=== PATIENT | female | born 1985 | race Caucasian/White ===

== ENCOUNTER → 2019-02-25 10:03 | Outpatient (CLI) | payer BC, SELFPAY ==
[2019-02-25 09:42] VITALS: BMI 24.9
[2019-02-25 12:31] LABS: Absolute Lymphocyte Count 0.56 X10^3/uL (0.83-4.51); Absolute Neutrophil Count 1.3 X10^3/uL (2.0-7.7); Basophil# 0.01 X10^3/uL; Basophil% 0.5 % (0-1); Eosinophil# 0.04 X10^3/uL; Eosinophils% 1.8 % (0-5); Hematocrit 42.9 % (37-47); Hemoglobin 14.2 g/dL (12.0-15.0); Lymphocyte # 0.56 X10^3/ul (4.0); Lymphocyte % 25.5 % (19-41); Mean Corp Hgb Conc 33.1 g/dL (32-36); Mean Corpuscular Hgb 35.5 pg (27.0-32.0); Mean Corpuscular Volume 107.3 fL (81-99); Mean Platelet Vol. 10.3 fl (6.2-12.0); Monocyte# 0.29 X10^3/uL; Monocyte% 13.2 % (0-10); NRBC Flagged by Analyzer 0 % (0-5); Neutrophil # 1.29 X10^3/uL (2.7-7.7); Neutrophil % 58.5 % (47-70); POSITIVE DIFFERENTIAL YES; Platelet Count 199 K/mm3 (150-450); RBC Distribution Width CV 13.3 % (11.6-14.6); RBC Distribution Width SD 53.3 fl (35.1-43.9); White Blood Count 2.2 K/mm3 (4.4-11.0)
[2019-02-25 12:33] LABS: Differential Indicated SCAN CRITERIA MET
[2019-02-25 13:03] LABS: ALB/GLOB Ratio 1.2 RATIO (0.9-2.4); AST(SGOT) 27 U/L (15-37); Alanine Aminotransfer ALT/SGPT 62 U/L (13-56); Albumin, Serum 4.3 g/dL (3.2-5.0); Alkaline Phosphatase 59 U/L (45-117); Anion Gap 5 (5-15); BUN 16 mg/dL (7-18); BUN/Creat Ratio 19.5 RATIO (10-20); Calcium,Total 10.1 mg/dL (8.5-10.1); Chloride 105 mmol/L (98-107); Creatinine, Serum 0.82 mg/dL (0.55-1.02); EST Glomerular Filtration Rate 85 mL/min (>60); Est Glom Filt Rate - Afr Amer 102 mL/min (>60); Globulin 3.7 g/dL (2.2-4.2); Glucose 94 mg/dL (74-106); Sodium Level 139 mmol/L (136-145)
[2019-02-28 13:56] LABS: Pathologist Review Reviewed
== END ==
PROVIDERS: Visit Provider Internal Medicine
DX: D72.819 Decreased white blood cell count, unspecified (principal); F32.9 Major depressive disorder, single episode, unspecified; F41.9 Anxiety disorder, unspecified
CPT/HCPCS: 36415; 80053; 85025

== ENCOUNTER → 2019-12-02 | Outpatient (CLI) | payer BC, SELFPAY ==
[2019-12-02 11:15] VITALS: BMI 27.6
[2019-12-02 15:36] LABS: Absolute Lymphocyte Count 0.52 X10^3/uL (0.83-4.51); Absolute Neutrophil Count 1.6 X10^3/uL (2.0-7.7); Basophil# 0.02 X10^3/uL; Basophil% 0.8 % (0-1); Eosinophil# 0.05 X10^3/uL; Eosinophils% 1.9 % (0-5); Hematocrit 35.3 % (37-47); Hemoglobin 11.7 g/dL (12.0-15.0); Lymphocyte # 0.52 X10^3/ul (4.0); Lymphocyte % 19.5 % (19-41); Mean Corp Hgb Conc 33.1 g/dL (32-36); Mean Corpuscular Volume 105.7 fL (81-99); Mean Platelet Vol. 10.8 fl (6.2-12.0); Monocyte# 0.45 X10^3/uL; Monocyte% 16.9 % (0-10); NRBC Flagged by Analyzer 0 % (0-5); Neutrophil # 1.62 X10^3/uL (2.7-7.7); Neutrophil % 60.9 % (47-70); POSITIVE DIFFERENTIAL YES; Platelet Count 166 K/mm3 (150-450); RBC Distribution Width CV 13.7 % (11.6-14.6); RBC Distribution Width SD 53.2 fl (35.1-43.9); Red Blood Count 3.34 M/mm3 (4.2-5.4); White Blood Count 2.7 K/mm3 (4.4-11.0)
[2019-12-02 15:52] LABS: ALB/GLOB Ratio 1.1 RATIO (0.9-2.4); AST(SGOT) 38 U/L (15-37); Alanine Aminotransfer ALT/SGPT 71 U/L (13-56); Albumin, Serum 3.5 g/dL (3.2-5.0); Alkaline Phosphatase 67 U/L (45-117); Anion Gap 7 (5-15); BUN 15 mg/dL (7-18); Calcium,Total 8.8 mg/dL (8.5-10.1); Chloride 109 mmol/L (98-107); Creatinine, Serum 0.83 mg/dL (0.55-1.02); EST Glomerular Filtration Rate 83 mL/min (>60); Est Glom Filt Rate - Afr Amer 100 mL/min (>60); Globulin 3.3 g/dL (2.2-4.2); Glucose 121 mg/dL (74-106); Protein, Total 6.8 g/dL (6.4-8.2); Sodium Level 141 mmol/L (136-145)
[2019-12-02 15:59] LABS: Differential Indicated SCAN CRITERIA MET
[2019-12-02 16:32] LABS: Platelet Estimate ADEQUATE (ADEQ)
[2019-12-02 16:33] LABS: Anisocytosis 1+; Macrocytosis 1+; Red Cell Morphology N CHROM NORMAL (NORM C&C)
[2019-12-05 13:53] LABS: Pathologist Review Reviewed
== END | disposition home or self-care (01) ==
LOC: BIMLAB 11:52
PROVIDERS: PCP Internal Medicine; Referring Provider Internal Medicine; Visit Provider Internal Medicine
DX: D72.819 Decreased white blood cell count, unspecified (principal); F32.9 Major depressive disorder, single episode, unspecified; F41.9 Anxiety disorder, unspecified
CPT/HCPCS: 36415; 80053; 85025

== ENCOUNTER → 2019-12-06 | Outpatient (CLI) | payer BC, SELFPAY ==
[2019-12-02 11:15] VITALS: BMI 27.6
[2019-12-06 12:41] LABS: Vitamin B12 920 pg/mL (211-911)
== END | disposition home or self-care (01) ==
LOC: BIMLAB 10:56
PROVIDERS: PCP Internal Medicine; Referring Provider Internal Medicine; Visit Provider Internal Medicine
DX: D64.9 Anemia, unspecified (principal)
CPT/HCPCS: 36415; 82607; 82746

== ENCOUNTER → 2019-12-13 10:17 | Outpatient (CLI) | payer BC, SELFPAY ==
[2019-12-02 11:15] VITALS: BMI 27.6
--- NOTE | 2019-12-13 10:17 | US_ITS ---
STUDY: ABDOMINAL ULTRASOUND - RIGHT UPPER QUADRANT REASON FOR VISIT: Female, 34 years old ELEVATED LIVER ENZYMES TECHNIQUE: Ultrasound evaluation of the right upper quadrant was performed with real-time and static marte-scale imaging. TECHNICAL QUALITY: Adequate. COMPARISON: None. FINDINGS: Liver: The liver measures 12.1 cm. There is increased echogenicity consistent with fatty infiltration. The bile ducts are within normal limits. There is hepatic color flow. The direction of portal flow is hepatopetal. There is no demonstrated mass lesion. Gallbladder: Normal distended gallbladder. The gallbladder wall measures 2.3 mm. There is a negative sonographic Burgess''s sign. There is no pericholecystic fluid. There are no gallstones. Common Bile Duct (C.B.D.): The common bile duct measures 5.2 mm. Pancreas: Normal size of the head, body and tail of the pancreas. There is normal echogenicity of the pancreas. There is no demonstrated pancreatic mass or cyst. Right Kidney: Normal size of the right kidney. The right kidney measures 10.6 cm x 4.6 cm x 3.8 cm. Normal renal cortex. The right cortex measures 1.6 cm. There is no demonstrated renal mass or cyst. There is no right hydronephrosis. US/Liver IMPRESSION: Fatty infiltration of the liver. Electronically Signed: Delmer Nina, at 15:20 EST , Service support ,
== END ==
PROVIDERS: PCP Internal Medicine; Referring Provider Internal Medicine; Visit Provider Internal Medicine
DX: R74.8 Abnormal levels of other serum enzymes (principal)
CPT/HCPCS: 76705

== ENCOUNTER → 2019-12-16 08:57 | Outpatient (CLI) | payer BC, SELFPAY ==
[2019-12-02 11:15] VITALS: BMI 27.6
[2019-12-16 12:50] LABS: Hepatitis B Surface Antigen Non-Reactive (Nonreactive); Hepatitis C Antibody Non-Reactive (Nonreactive)
== END ==
PROVIDERS: PCP Internal Medicine; Referring Provider Internal Medicine; Visit Provider Internal Medicine
DX: R74.8 Abnormal levels of other serum enzymes (principal)
CPT/HCPCS: 36415; 86803; 87340

== ENCOUNTER → 2020-08-07 09:43 | Outpatient (CLI) | payer BC, SELFPAY ==
[2020-07-19 15:29] VITALS: BMI 28.8
--- NOTE | 2020-08-07 09:44 | ECHOD_ITS ---
Reason For Study: MVP- nonrheumatic Procedure This was a 2D Doppler, Color Flow transthoracic echocardiogram. Exam performed in department. Left Ventricle Normal LV size. Left ventricular systolic function is normal. The estimated ejection fraction is 60 %. No evidence for diastolic dysfunction. No regional wall motion abnormalities noted. Right Ventricle Normal RV size. Normal systolic function. Atria Normal left atrium. Normal right atrium. No doppler evidence for ASD. Mitral Valve There is no mitral annular calcification. Mild diffuse mitral valve thickening. Trivial mitral valve insufficiency. Tricuspid Valve Normal tricuspid valve. Trivial tricuspid valve insufficiency. Unable to estimate RV systolic pressure due to insufficient tricuspid regurgitant envelope. Aortic Valve Trisinus/trileaflet aortic valve. Normal aortic valve. Pulmonic Valve The pulmonic valve is not well visualized. Trivial pulmonic valve insufficiency. Great Vessels Normal sized aortic root. Pericardium/Pleural No pericardial effusion. MMode/2D Measurements & Calculations LVIDd: 4.1 cm IVSd: 0.86 cm Ao root diam: 2.6 cm LVIDs: 2.8 cm LVPWd: 0.91 cm LA dimension: 2.6 cm FS: 33.4 % LAV(MOD-bp): 32.6 ml LA A4 area: 14.0 cm2 RA A4 area: 12.1 cm2 LAV(MOD-bp) Indexed: 21.0 ml/m2 LAV(MOD-sp2): 29.0 ml LAV(MOD-sp4): 32.9 ml Time Measurements MV dec time: 0.21 sec Doppler Measurements & Calculations MV E max benjamin: 110.0 cm/sec Lat Peak E' Benjamin: 16.3 cm/sec Med Peak E' Benjamin: 13.1 cm/sec MV A max benjamin: 50.7 cm/sec E/E' lat: 6.8 E/E' med: 8.4 MV E/A: 2.2 MV V2 max: 105.3 cm/sec MV P1/2t max benjamin: 115.8 cm/sec Ao V2 max: 134.2 cm/sec MV max P.5 mmHg MV P1/2t: 104.5 msec Ao max P.2 mmHg MV V2 mean: 60.9 cm/sec MV dec slope: 324.7 cm/sec2 MV mean P.8 mmHg MVA(P1/2t): 2.1 cm2 MV V2 VTI: 32.8 cm LV V1 max: 104.6 cm/sec LV V1 max P.4 mmHg ECHO/Echo Complete Interpretation Summary Left ventricular systolic function is normal. The estimated ejection fraction is 60 %. Mild diffuse mitral valve thickening. Trivial mitral valve insufficiency. Trivial tricuspid valve insufficiency. Trivial pulmonic valve insufficiency. Unable to estimate RV systolic pressure due to insufficient tricuspid regurgita nt envelope. No evidence for diastolic dysfunction. Ordering Physician: Hi Sorensen Referring Physician: Tiffany Sanders Performed By: Chas Griggs RCS
--- NOTE | 2020-08-07 13:06 | STRESSREP_ITS ---
Stress Test Report Date: 08-07-2020 Procedure: Exercise tolerance test Indications: Palpitations; chest pain; MVP Consent: Per the patient Procedure: The patient exercised on a Luis Felipe protocol for 9 minutes and 30 seconds completing stage III and 30 seconds of stage IV achieving a peak heart rate of 169 bpm (91% predicted maximal heart rate) with a peak blood pressure 144/74 mmHg and a peak MET capacity of approximately 10 MET's. The baseline ECG demonstrated sinus bradycardia. The peak exercise ECG demonstrated approximately [address] segment depression in leads II, III, aVF, and V3 through V6 with resolution towards baseline beginning less than 1 minute in recovery. There were no cardiac dysrhythmias pretest, during exercise, or recovery. The functional capacity was considered. The patient had no complaint of chest discomfort during exercise or recovery. The examination was discontinued secondary to dyspnea. Impression: 1. Technically adequate (percent predicted maximal heart rate greater than 85%) exercise tolerance test 2. Peak exercise ECG with with approximately [address] segment depression in leads II, III, aVF, and V3 through V6 with resolution towards baseline beginning less than 1 minute in recovery 3. There were no cardiac dysrhythmias during exercise or recovery[- This note was generated with [employer] software. It may contain incorrect words, spelling, and punctuation that were not noted in checking the note before signing.
== END ==
PROVIDERS: PCP Internal Medicine; Referring Provider Internal Medicine Cardiovascular Disease; Visit Provider Internal Medicine Cardiovascular Disease
DX: I34.1 Nonrheumatic mitral (valve) prolapse (principal); R07.9 Chest pain, unspecified; R00.2 Palpitations
CPT/HCPCS: 93017; 93306

== ENCOUNTER → 2020-08-28 09:29 | Outpatient (CLI) | payer BC, SELFPAY ==
[2020-07-19 15:29] VITALS: BMI 28.8
--- NOTE | 2020-08-28 09:31 | STEWCON_ITS ---
Reason For Study: CHEST PAIN Stress Results Protocol: Luis Felipe Protocol WITH DEFINITY Maximum Predicted HR: 185 bpm Target HR: 157 bpm % Maximum Predicted HR: 88 % DurationHeart Rate Stage (mm:ss) (bpm) BP Comment BASELINE 71 118/70 STAGE 1 3:00 104 152/64 STAGE 2 3:00 122 146/62 STAGE 3 3:00 148 148/62 STAGE 4 1:00 162 / RECOVERY 75 110/622.5 CC DEFINITY FOR ENTIRE TEST Stress Duration: 10:00 mm:ss Maximum Stress HR: 162 bpm METS: 13 Baseline Echocardiogram Findings Stress Echo Wall motion Data Resting WM Intermediate WM Stress WM Resting Wall Motion Wall Motion Stress All segments Normal. All segments Hyperkinetic. Ejection Fraction 60 %. Ejection Fraction 70 %. Stress Results Heart rate response: Appropriate Blood pressure response: Normal resting blood pressure-appropriate response Arrhythmias: None Functional capacity: Good Stopped secondary to: Dyspnea. EKG Data Baseline ECG: Sinus rhythm. Peak exercise ECG: Somatic/motion artifact with approximately [address] segment depression in leads V4 through V6 with subsequent resolution towards baseline starting less than 1 minute in recovery. Symptoms with Stress No complaint of chest discomfort during exercise or recovery. ECHO/Stress Test Echo W/Contrast Interpretation Summary Contrast injection performed Negative (adequate) stress echocardiogram Ordering Physician: Hi Sorensen Referring Physician: Hi Sorensen Performed By: Felecia Allison RDCS
== END ==
PROVIDERS: PCP Internal Medicine; Referring Provider Internal Medicine Cardiovascular Disease; Visit Provider Internal Medicine Cardiovascular Disease
DX: R07.9 Chest pain, unspecified (principal); R00.2 Palpitations; I34.1 Nonrheumatic mitral (valve) prolapse
CPT/HCPCS: 93017; 93350; Q9957; A4216; C8928; J3490

== ENCOUNTER → 2020-10-22 | Outpatient (CLI) | payer BC, SELFPAY | END | disposition home or self-care (01) | LOC: LABSPEC 13:46 | PROVIDERS: PCP Internal Medicine; Visit Provider Physician Assistant | DX: M79.10 Myalgia, unspecified site (principal); R50.9 Fever, unspecified | CPT/HCPCS: 87635; U0005; U0003 ==

== ENCOUNTER → 2020-11-07 14:09 | Outpatient (CLI) | payer BC, SELFPAY ==
[2020-11-07 14:10] LABS: Bacteria 0 SEEN /hpf (None Seen); Mucous, Urine 0 SEEN /hpf (<or=2+); Red Blood Cells-Urine 0 SEEN /hpf (0-5); Squamous Epithelial Cells - UA 0 SEEN /hpf (5-10); White Blood Cells 0 SEEN /hpf (0-5)
[2020-11-07 15:09] LABS: Color, Urine Yellow (Yellow); Glucose, Dipstick Normal (Normal); Ketone-Dipstick Negative (Negative); Leukocyte Esterase-Dipstick Negative /ul (Negative); Nitrite-Dipstick Negative (Negative); Occult Blood-Urine Negative /ul (Negative); Protein-Dipstick Negative (Negative); Urine Bilirubin Dipstick Negative (Negative); Urine Clarity Clear (Clear); Urine Urobilinogen Normal (Normal)
[2020-11-07 15:15] LABS: Absolute Lymphocyte Count 0.58 X10^3/uL (0.83-4.51); Absolute Neutrophil Count 1.6 X10^3/uL (2.0-7.7); Basophil# 0.01 X10^3/uL; Basophil% 0.4 % (0-1); Eosinophil# 0.07 X10^3/uL; Eosinophils% 2.7 % (0-5); Hematocrit 36.3 % (37-47); Hemoglobin 11.9 g/dL (12.0-15.0); Lymphocyte # 0.58 X10^3/ul (0.83-4.51); Lymphocyte % 22.3 % (19-41); Mean Corp Hgb Conc 32.8 g/dL (32-36); Mean Corpuscular Hgb 35.1 pg (27.0-32.0); Mean Corpuscular Volume 107.1 fL (81-99); Mean Platelet Vol. 10.3 fl (6.2-12.0); Monocyte# 0.38 X10^3/uL; Monocyte% 14.6 % (0-10); NRBC Flagged by Analyzer 0 % (0-5); Neutrophil # 1.55 X10^3/uL (2.7-7.7); Neutrophil % 59.6 % (47-70); POSITIVE DIFFERENTIAL YES; Platelet Count 154 K/mm3 (150-450); RBC Distribution Width CV 13.7 % (11.6-14.6); RBC Distribution Width SD 54.4 fl (35.1-43.9); Red Blood Count 3.39 M/mm3 (4.2-5.4); White Blood Count 2.6 K/mm3 (4.4-11.0)
[2020-11-07 15:23] LABS: Differential Indicated SCAN CRITERIA MET
[2020-11-07 15:37] LABS: ALB/GLOB Ratio 1.1 RATIO (0.9-2.4); AST(SGOT) 47 U/L (15-37); Alanine Aminotransfer ALT/SGPT 82 U/L (13-56); Albumin, Serum 3.7 g/dL (3.2-5.0); Alkaline Phosphatase 80 U/L (45-117); Anion Gap 9 (5-15); BUN 16 mg/dL (7-18); BUN/Creat Ratio 16.6 RATIO (10-20); Calcium,Total 8.9 mg/dL (8.5-10.1); Chloride 103 mmol/L (98-107); Creatinine, Serum 0.96 mg/dL (0.55-1.02); EST Glomerular Filtration Rate 70 mL/min (>60); Est Glom Filt Rate - Afr Amer 85 mL/min (>60); Globulin 3.4 g/dL (2.2-4.2); Glucose 94 mg/dL (74-106); Potassium 4.1 mmol/L (3.5-5.1); Protein, Total 7.1 g/dL (6.4-8.2); Sodium Level 139 mmol/L (136-145); T4 Free Direct 0.78 ng/dL (0.76-1.46); Thyroid Stim Hormone (TSH) 1.81 uIU/mL (0.358-3.74)
[2020-11-07 16:10] LABS: Differential Comment SCANNED
[2020-11-08 14:09] LABS: Pathologist Review Reviewed
== END ==
PROVIDERS: PCP Internal Medicine; Referring Provider Internal Medicine; Visit Provider Internal Medicine
DX: R35.0 Frequency of micturition (principal); F41.9 Anxiety disorder, unspecified; F32.9 Major depressive disorder, single episode, unspecified
CPT/HCPCS: 36415; 80053; 81001; 84439; 84443; 85025; 87086; 87088

== ENCOUNTER → 2021-01-15 14:23 | Outpatient (CLI) | payer BC, SELFPAY ==
[2021-01-15 18:37] LABS: ALB/GLOB Ratio 1.1 RATIO (0.9-2.4); AST(SGOT) 25 U/L (15-37); Alanine Aminotransfer ALT/SGPT 52 U/L (13-56); Albumin, Serum 3.7 g/dL (3.2-5.0); Alkaline Phosphatase 64 U/L (45-117); Anion Gap 8 (5-15); BUN 13 mg/dL (7-18); BUN/Creat Ratio 16.6 RATIO (10-20); Chloride 108 mmol/L (98-107); Creatinine, Serum 0.78 mg/dL (0.55-1.02); EST Glomerular Filtration Rate 88 mL/min (>60); Est Glom Filt Rate - Afr Amer 107 mL/min (>60); Globulin 3.5 g/dL (2.2-4.2); Glucose 94 mg/dL (74-106); Potassium 4.2 mmol/L (3.5-5.1); Protein, Total 7.2 g/dL (6.4-8.2); Sodium Level 140 mmol/L (136-145)
[2021-01-16 09:16] LABS: Hepatitis C Antibody Non-Reactive (Nonreactive)
[2021-01-17 16:59] LABS: ANTINUCLEAR ANTIBODIES DIRECT Negative (Negative); Anti-Mitochondrial AB <20.0 Units (0.0-20.0); Anti-Smooth Muscle ABS 4 Units (0-19)
== END ==
PROVIDERS: PCP Internal Medicine; Referring Provider Internal Medicine Gastroenterology; Visit Provider Internal Medicine Gastroenterology
DX: K76.0 Fatty (change of) liver, not elsewhere classified (principal); K75.9 Inflammatory liver disease, unspecified
CPT/HCPCS: 36415; 80053; 83516; 86038; 86803

== ENCOUNTER → 2021-01-23 13:58 | Outpatient (CLI) | payer BC, SELFPAY ==
--- NOTE | 2021-01-23 14:00 | RAD_ITS ---
STUDY: X-RAY CHEST REASON FOR EXAM: Female, 35 years old. Cough, wheeze TECHNIQUE: PA and lateral views of the chest. COMPARISON: None. FINDINGS: The lungs are clear and expanded. There is no demonstrated pleural abnormality. Normal size heart. Normal mediastinum and anna. Normal visualized pulmonary arteries. Normal visualized aortic arch and descending thoracic aorta. Normal visualized thoracic spine. Normal visualized ribs, clavicles, and shoulders. There is no demonstrated abnormality of the visualized soft tissue structures of the upper abdomen. RAD/Chest PA and Lateral IMPRESSION: Normal x-ray examination of the chest. Electronically Signed: Delmer Nina MD at 14:13 EST , Service support ,
== END ==
PROVIDERS: PCP Internal Medicine; Referring Provider Physician Assistant; Visit Provider Physician Assistant
DX: R05.9 Cough, unspecified (principal); R06.2 Wheezing
CPT/HCPCS: 71046; 87635; U0005; U0003

== ENCOUNTER → 2021-01-29 09:43 | Outpatient (CLI) | payer BC, SELFPAY ==
--- NOTE | 2021-01-29 09:54 | US_ITS ---
STUDY: ABDOMINAL ULTRASOUND - RIGHT UPPER QUADRANT REASON FOR VISIT: Female, 35 years old FATTY LIVER TECHNIQUE: Ultrasound evaluation of the right upper quadrant was performed with real-time and static marte-scale imaging. TECHNICAL QUALITY: Adequate. COMPARISON: Comparison is made with prior study 12/13/2019. FINDINGS: Liver: The liver measures 14.4 cm. There is increased echogenicity consistent with fatty infiltration. The bile ducts are within normal limits. There is hepatic color flow. The direction of portal flow is hepatopetal. There is no demonstrated mass lesion. Gallbladder: Normal distended gallbladder. The gallbladder wall measures 1.8 mm. There is a negative sonographic Burgess''s sign. There is no pericholecystic fluid. There are no gallstones. Common Bile Duct (C.B.D.): The common bile duct measures 7.6 mm. Pancreas: Normal size of the head, body and tail of the pancreas. There is normal echogenicity of the pancreas. There is no demonstrated pancreatic mass or cyst. Right Kidney: Normal size of the right kidney. The right kidney measures 10.3 cm x 4.4 cm x 3.4 cm. Normal renal cortex. The right cortex measures 1.4 cm. There is no demonstrated renal mass or cyst. There is no right hydronephrosis. US/Abdomen Limited IMPRESSION: Fatty infiltration of the liver. Electronically Signed: Delmer Nina MD at 13:50 EST , Service support ,
--- NOTE | 2021-01-29 09:54 | US_ITS ---
STUDY: ABDOMINAL ULTRASOUND - ELASTOGRAPHY REASON FOR VISIT: Female, 35 years old. Fatty infiltration of the liver. TECHNIQUE: Liver stiffness measurements were obtained on a [employer] RS 85 ultrasound machine using a CA 1-7 probe following the SRU guidelines. 3 measurements were obtained using a 2-D-SWE method. The IQR/M was 13% suggesting a quality data set. TECHNICAL QUALITY: Adequate. COMPARISON: Comparison is made with prior examination done earlier in the day. FINDINGS: Liver: Fatty infiltration of the liver. Median liver stiffness measured 4.3 kPa. US/Elastography Parenchyma/Organ IMPRESSION: Liver stiffness measures 4.3 kPa compatible with F0 Metavir score. Electronically Signed: Delmer Nina MD at 13:52 EST , Service support ,
== END ==
PROVIDERS: PCP Internal Medicine; Referring Provider Internal Medicine Gastroenterology; Visit Provider Internal Medicine Gastroenterology
DX: K76.0 Fatty (change of) liver, not elsewhere classified (principal)
CPT/HCPCS: 76705; 76981

== ENCOUNTER → 2021-07-01 | Outpatient (CLI) | payer BC, SELFPAY ==
--- NOTE | 2021-07-01 14:34 | RAD_ITS ---
ACR Level 3 findings have been noted. An addendum which confirms receipt of the report will follow. EXAM: XR CERVICAL SPINE, 2 OR 3 VIEWS CLINICAL INDICATION: Chronic neck pain TECHNIQUE: Frontal and lateral views of the cervical spine. This report was created using [employer] report generation technology. COMPARISON: None. FINDINGS: VERTEBRAE: Straightening of the usual lordotic curvature on the lateral view. C7-T1 disc space is adequately seen on the lateral view, both with and without weights. Well aligned lateral margins of C1 and C2 on open-mouth odontoid view. Preserved vertebral body height. No acute fracture. No spondylolisthesis. No significant facet arthropathy. DISC SPACES: Moderate disc space narrowing at C5-C6. SOFT TISSUES: No prevertebral soft tissue swelling or gas. LUNG APICES: Clear. OTHER FINDINGS: 4 total views including lateral views with and without weights. RAD/Cerv Spine 2 or 3 Views IMPRESSION: Straightening of the usual lordotic curvature and moderate disc space narrowing at C5-C6. Nonspecific. Additional evaluation such as MRI could be considered if there is clinical concern for herniated disc and spinal or neural foraminal stenosis. Electronically Signed: Margarita Batista MD at 20:31 EDT ,
[2021-07-01 15:19] LABS: Absolute Lymphocyte Count 0.42 X10^3/uL (0.83-4.51); Absolute Neutrophil Count 1.5 X10^3/uL (2.0-7.7); Basophil# 0.01 X10^3/uL; Basophil% 0.4 % (0-1); Eosinophil# 0.09 X10^3/uL; Eosinophils% 3.9 % (0-5); Hematocrit 34.7 % (37-47); Hemoglobin 11.8 g/dL (12.0-15.0); Lymphocyte # 0.42 X10^3/ul (0.83-4.51); Lymphocyte % 18.3 % (19-41); Mean Corpuscular Hgb 36.1 pg (27.0-32.0); Mean Corpuscular Volume 106.1 fL (81-99); Mean Platelet Vol. 11.2 fl (6.2-12.0); Monocyte# 0.31 X10^3/uL; Monocyte% 13.5 % (0-10); NRBC Flagged by Analyzer 0 % (0-5); Neutrophil # 1.47 X10^3/uL (2.7-7.7); Neutrophil % 63.9 % (47-70); POSITIVE DIFFERENTIAL YES; Platelet Count 125 K/mm3 (150-450); RBC Distribution Width CV 13.9 % (11.6-14.6); RBC Distribution Width SD 54.9 fl (35.1-43.9); Red Blood Count 3.27 M/mm3 (4.2-5.4); White Blood Count 2.3 K/mm3 (4.4-11.0)
[2021-07-01 15:20] LABS: Differential Indicated SCAN CRITERIA MET
[2021-07-01 15:45] LABS: Differential Comment SCANNED
[2021-07-01 15:52] LABS: AST(SGOT) 49 U/L (15-37); Alanine Aminotransfer ALT/SGPT 91 U/L (13-56); Albumin, Serum 3.5 g/dL (3.2-5.0); Alkaline Phosphatase 78 U/L (45-117); Anion Gap 10 (5-15); BUN 16 mg/dL (7-18); BUN/Creat Ratio 15.1 RATIO (10-20); Calcium,Total 8.6 mg/dL (8.5-10.1); Chloride 107 mmol/L (98-107); Creatinine, Serum 1.06 mg/dL (0.55-1.02); EST Glomerular Filtration Rate 62 mL/min (>60); Est Glom Filt Rate - Afr Amer 75 mL/min (>60); Globulin 3.5 g/dL (2.2-4.2); Glucose 186 mg/dL (74-106); Sodium Level 139 mmol/L (136-145); T4 Free Direct 0.75 ng/dL (0.76-1.46); Thyroid Stim Hormone (TSH) 2.02 uIU/mL (0.358-3.74)
[2021-07-01 18:31] LABS: Hemoglobin A1c 5.1 % (3.8-5.6)
[2021-07-02 12:35] LABS: Pathologist Review Reviewed
[2021-07-04 08:14] LABS: Thyroxin Bind Glob (TBG) 27 ug/mL (13-39)
== END | disposition home or self-care (01) ==
PROVIDERS: PCP Internal Medicine; Referring Provider Internal Medicine; Visit Provider Internal Medicine
DX: F41.9 Anxiety disorder, unspecified (principal); F32.9 Major depressive disorder, single episode, unspecified; R73.9 Hyperglycemia, unspecified; M54.2 Cervicalgia; G89.29 Other chronic pain; Z13.29 Encounter for screening for other suspected endocrine disorder; Z13.21 Encounter for screening for nutritional disorder
CPT/HCPCS: 36415; 72040; 80053; 82306; 83036; 84439; 84442; 84443; 85025

== ENCOUNTER → 2021-07-10 | Outpatient (CLI) | payer BC, SELFPAY | END | disposition home or self-care (01) | LOC: SL 10:20 | PROVIDERS: PCP Internal Medicine; Referring Provider Internal Medicine; Visit Provider Internal Medicine | DX: G47.10 Hypersomnia, unspecified (principal) | CPT/HCPCS: 95806 ==

== ENCOUNTER 2021-08-22 13:00 | Outpatient (RCR) | payer BC, SELFPAY ==
--- NOTE | 2021-07-02 13:53 | HP.PTEVAL ---
Patient's Visit Information DIANE HERNANDEZ is a 35 year old F referred to Physical Therapy by Dr. Tiffany Sanders MD with a diagnosis of CHRONIC NECK PAIN. Date of Evaluation: 07/02/21 Physical Therapist: Jenny Mercedes PT, Cert MDT - Visit Plan Frequency: 2-3x /Week Duration: 4-6 Weeks Plan: US TO NECK X 6. STM. NO TRACTION. POSTURE CORRECTION/STRENGTHENING, INSTRUCTION IN APPROPRIATE BODY MECHANICS AND ACTIVITY MODIFICATIONS. KADEN UE ROM, STRETCHING AND STRENGTHENING. HEP INSTRUCTION. - Subjective Diagnosis: NECK PAIN. 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 Disability: NO. Present symptoms: CENTRAL NECK PAIN. TINGLINT IN R MEDIAL HAND AND DIGITS 4 AND 5 - INTERMITTENT. INTERMITTENT PINCH IN NECK. TIGHTNESS AT BASE OF NECK AND UPPER BACK - FEELS LIKE ELECTRICAL SHOCK UP NECK INTO HEAD AND CAUSES HER TO FEEL DISORIENTED FOR A SECOND. Present since: 2008 BUT THIS PAIN STARTED LAST SUMMER. Pain Scale: Worst - 5/10 Least - 0/10. Currently:0/10. Commenced as a result of: NO APPARENT REASON. Symptoms at onset: NECK PAIN. Worse: OVER HEAD PRESS, PLANK, GRIPPING WEIGHT MACHINES, WALKING, TURNING HEAD. Better: STOP AGGREVATING ACTIVITY. Disturbed sleep: NO. Previous history/Previous treatment: NONE. This episode: IBUPROFEN. Dizziness: YES - PCP IS AWARE. Tinnitis: NO. Nausea: NO. Shortness of Breath: NO. Difficulty Swollowing: NO. Gait: NORMAL. Accidents: NO. Unexplained weight loss: NO. Imaging: RECENT X-RAY - MODERATE DISC SPACE NARROWING C56. PMH/Recent major surgery: BROKE LEFT ARM IN 4TH GRADE WITH RESIDUAL MVMT LOSS. ANXIETY DISORDER. DEPRESSION. MITRAL VALVE PROLAPSE. - Objective Sitting Posture/Standing Posture: POOR. FH. RS'S. NO TORTICOLLIS. Active Correction of posture: WORSE. Other Observations: INDEP GAIT AND TRANSFERS. 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 Sensory deficit: KADEN UE'S WFL. ROM deficit: APPROX 10% DECREASED KADEN SHLD FLEXABILITY AND INCREASED C/O UPPER BACK PAIN WITH TESTING. Motor deficit: RIGHT SHIPFITTER STRENGTH 60 LBS AND LEFT 55 LBS. PATIENT IS R HAND DOMINANT. Reflexes: KADEN UE DTRS 2/2. Dural Signs: POSITIVE RIGHT UE. Cervical Mvmt Loss: Flex: MIN. Pro: NIL. Ext: MIN. Ret: MIN. RSB: MIN. LSB: MIN. R Rot: MIN. L Rot: MOD. Postural strength: POOR. Palpation: NO ACUTE TENDERNESS WITH LIGHT PALPATION OF HEAD, NECK AND UPPER THORACIC REGIONS BUT INCREASED MUSCLE TONE THROUGHOUT. PATIENT ALSO HAS RAISED AREA THAT LOOKS LIKE SWELLING OVER THE C4567 REGION. TREATMENT: NEUROMUSCULAR REEDUCATION - INTRO TO RETRAINING OF MVMT AND POSTURE FOR SITTING, EXERCISE AND STANDING ACTIVITIES. - Balance/Special Test Scores Oswestry Neck Score: 7 - Goals Goal 1:: DECREASE C/O NECK PAIN Goal Time Frame: 4-6 Weeks Goal 2:: IMPROVE LIFTING, READING, AND DRIVING FUNCTION. Goal Time Frame: 4-6 Weeks Goal 3:: INSTRUCT IN PROPHYLAXIS Goal Time Frame: 4-6 Weeks - Anticipated Interventions Patient/Client Instruction: Educate patient on: Condition, Plan of Care, Risk Factors For the Purpose of:: To improve self management Therapeutic Exercise to Include: Strength training, Body mechanics, Postural training, Flexibilty training, Neuromotor development, Scapular Strength/Stabilization For the Purpose of:: To decrease pain, To increase ROM, To improve muscle performance and motor function, To increase tolerance to activity/condition/position, To improve ability of physical actions for home/community/work/leisure Manual Therapy Techniques to Include: Soft tissue mobilization For the Purpose of:: To decrease pain, To improve nutrient delivery to tissue TENS: Yes IF ES: Yes Cryotherapy (ice pack, ice massage): Yes Thermo therapy (hot pack): Yes Ultrasound (thermal/non thermal): Yes For the Purpose of:: To decrease pain, To improve nutrient delivery to tissue Thank you for the opportunity to evaluate your patient. For Medicare and Medicare HMO plans, please review the plan of care and approve it. It will need to be FAXED BACK to us at [phone] for Medicare purposes. For Medicare only, by signing this I certify the plan of care. Please let me know if there are questions or concerns regarding this plan of care. Physician Signature: Date:
--- NOTE | 2021-07-29 13:24 | HP.PTREVAL ---
Dr. Tiffany Castillo MD, It has been my pleasure to treat DIANE HERNANDEZ over the last 8 visits for CHRONIC NECK PAIN. Please see the progress note below for an update on the physical therapy plan of care! Subjective: STILL GETTING PINCH IN NECK AND TINGLING IN RIGHT HAND. REPORTS SHE FEELS SHE WAS REALLY DOING BETTER UNTIL THURSDAY WHEN SHE HAD TO CLEAN UP WATER FOR TWO HOURS AT HOUSE (JUST GOT HOME FROM [place] THURSDAY DUE TO STORM DAMAGE. PATIENT REPORTS SHE FEELS SHE WAS 70-80% BETTER UNTIL LAST THURSDAY. PATIENT REPORTS INTERMITTENT PINCHING IN NECK WITH LEFT ARM MVMTS >90 DEG OR TURNING NECK CERTAIN. SOMETIMES PICKING THINGS UP WITH L ARM BRINGS IT ON TOO. THE PINCH IS FLEETING AND THEN SHE IS USUALLY SX FREE. R HAND TINGLING IS BACK BUT INTERMITTENT BUT WENT A WHOLE WEEK WITHOUT ANY TINGLING. FOLLOW UP PENDING WITH DR. CASTILLO IN A FEW WEEKS. Objective/Function: PATIENT WAS SEEN TODAY FOR RE-ASSESSMENT OF PROGRESS TOWARD THE SET PT GOALS AND THE NEED FOR FURTHER PHYSICAL THERAPY VS READINESS FOR DISCHARGE. PATIENT IS A GOOD CANDIDATE TO CONTINUE PT BASED ON PROGRESS MADE AND ROOM FOR FUTHER IMPROVEMENT AND BECAUSE SHE HAD A RECENT SET BACK. UPON EXAM TODAY: ROM deficit: APPROX 10% DECREASED KADEN SHLD FLEXABILITY AND INCREASED C/O UPPER BACK PAIN WITH TESTING. 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 PATIENT IS R HAND DOMINANT. Reflexes: KADEN UE DTRS 2/2. Dural Signs: POSITIVE RIGHT UE. Cervical Mvmt Loss: Flex: NIL. Pro: NIL. Ext: MIN. Ret: MIN. RSB: MIN. LSB: MIN. R Rot: MIN. L Rot: MOD. Postural strength: POOR. Palpation: NO ACUTE TENDERNESS WITH LIGHT PALPATION OF HEAD, NECK AND UPPER THORACIC REGIONS BUT INCREASED MUSCLE TONE THROUGHOUT. PATIENT ALSO HAS RAISED AREA THAT LOOKS LIKE SWELLING OVER THE C4567 REGION. Plan Plan: CONTINUE PT 2X'S A WEEK X 3 WKS. PATIENT AGREEABLE. PROGRESS THER EX TOLERATED AND CONSIDER KADEN SHLE FLEXION GENTLE STRETCHING NEXT VISIT. US TO NECK X 8. STM. CONSIDER MANUAL TX AGAIN BUT NOT MECHANICAL TX YET. POSTURE CORRECTION/STRENGTHENING, INSTRUCTION IN APPROPRIATE BODY MECHANICS AND ACTIVITY MODIFICATIONS. KADEN UE ROM, STRETCHING AND STRENGTHENING. HEP INSTRUCTION. Balance/Gait/Functional tests - Balance/Special Test Scores Oswestry Neck Score: 5 Goals Goal 1:: DECREASE C/O NECK PAIN Goal Time Frame: 4-6 Weeks Goal Progress: Progressing Goal 2:: IMPROVE LIFTING, READING, AND DRIVING FUNCTION. Goal Time Frame: 4-6 Weeks Goal Progress: Progressing Goal 3:: INSTRUCT IN PROPHYLAXIS Goal Time Frame: 4-6 Weeks Goal Progress: Progressing Anticipated Interventions Patient/Client Instruction: Educate patient on: Condition, Plan of Care, Risk Factors For the Purpose of:: To improve self management Therapeutic Exercise to Include: Strength training, Body mechanics, Postural training, Flexibilty training, Neuromotor development, Scapular Strength/Stabilization For the Purpose of:: To decrease pain, To increase ROM, To improve muscle performance and motor function, To increase tolerance to activity/condition/position, To improve ability of physical actions for home/community/work/leisure Manual Therapy Techniques to Include: Soft tissue mobilization For the Purpose of:: To decrease pain, To improve nutrient delivery to tissue TENS: Yes IF ES: Yes Cryotherapy (ice pack, ice massage): Yes Thermo therapy (hot pack): Yes Ultrasound (thermal/non thermal): Yes For the Purpose of:: To decrease pain, To improve nutrient delivery to tissue Please do not hesitate to contact me at [phone] by phone or if you have questions or concerns regarding this new plan of care! Sincerely, Jenny Mercedes, PT, Cert MDT
--- NOTE | 2021-11-19 12:35 | HP.PTDCNRP_ITS ---
DIANE HERNANDEZ was seen in my office for initial evaluation on 07/02/21. The following Plan of Care was established for this patient: Initial Frequency: 2-3x /Week Initial Duration: 4-6 Weeks Patient/Client Instruction: Educate patient on: Condition, Plan of Care, Risk Factors For the Purpose of:: To improve self management Therapeutic Exercise to Include: Strength training, Body mechanics, Postural training, Flexibilty training, Neuromotor development, Scapular Strength/Stabilization For the Purpose of:: To decrease pain, To increase ROM, To improve muscle performance and motor function, To increase tolerance to activity/condition/position, To improve ability of physical actions for home/community/work/leisure Manual Therapy Techniques to Include: Soft tissue mobilization For the Purpose of:: To decrease pain, To improve nutrient delivery to tissue TENS: Yes IF ES: Yes Cryotherapy (ice pack, ice massage): Yes Thermo therapy (hot pack): Yes Ultrasound (thermal/non thermal): Yes For the Purpose of:: To decrease pain, To improve nutrient delivery to tissue This patient was last seen in our office 08/22/21. Pertinent comments regarding their Physical therapy will appear below: This patient has not returned to Physical Therapy and is appropriate to return to MD for further follow-up as needed. At this point I will be discontinuing this patient from physical therapy. I wou ld be happy to see this patient again in the future if found appropriate by the physician. Thank you! Jenny Mercedes, PT, Cert MDT Balance/Gait/Functional tests - Balance/Special Test Scores Oswestry Neck Score: 3
== END 2021-08-22 19:00 | disposition home or self-care (01) ==
LOC: PT 13:00
PROVIDERS: PCP Internal Medicine; Referring Provider Internal Medicine; Visit Provider Internal Medicine
DX: M54.2 Cervicalgia (principal); G89.29 Other chronic pain
CPT/HCPCS: 97012; 97035; 97112; 97140; 97162; 97164; 97530

== ENCOUNTER → 2021-12-13 | Outpatient (CLI) | payer BC, SELFPAY ==
--- NOTE | 2021-12-13 10:44 | MRI_ITS ---
STUDY: MRI CERVICAL SPINE WITHOUT CONTRAST REASON FOR EXAM: Female, 36 years old. Neck pain TECHNIQUE: Standardized fat and water weighted pulse sequences were obtained in the sagittal and axial planes. COMPARISON: None FINDINGS: Normal foramen magnum and brainstem-cervical cord junction. Normal craniovertebral junction. Normal anterior atlantoaxial articulation. Normal odontoid process. Mild straightening of the C-spine curvature. Normal vertebral bodies and posterior osseous elements. C2-3: Normal endplates. Normal disc height, signal and morphology. Normal central canal and intervertebral neural foramina. C3-4: Normal endplates. Normal disc height, signal and morphology. Normal central canal and intervertebral neural foramina. C4-5: Normal endplates. Normal disc height, signal and morphology. Normal central canal and intervertebral neural foramina. C5-6: Normal endplates. Minimal disc space narrowing. Normal disc signal and morphology. Normal central canal and intervertebral neural foramina. C6-7: Normal endplates. Normal disc height, signal and morphology. Normal central canal and intervertebral neural foramina. C7-T1: Normal endplates. Normal disc height, signal and morphology. Normal central canal and intervertebral neural foramina. T1-T2, T2-T3 and T3-T4: (Sagittal only). Normal endplates. Normal disc height, signal and morphology. Normal central canal and intervertebral neural foramina. T4-T5: (Sagittal only). Normal endplates. Mild disc space narrowing. Minimal ventral extradural defect due to posterior bone spur. Normal central canal and intervertebral neural foramina. Normal cervical cord. Normal upper thoracic spinal cord. Normal including the brainstem and cerebellum. Mild mucosal thickening in the floor of the sphenoid sinus. Normal visualized soft tissue structures. MRI/Spine Cervical (Routine) IMPRESSION: 1. No MRI evidence of cervical exclude a disc fragment, spinal stenosis or cervical nerve root displacement. 2. Normal cervical spinal cord. Electronically Signed: Umang Herbert MD at 12:53 EDT ,
== END | disposition home or self-care (01) ==
PROVIDERS: PCP Internal Medicine; Referring Provider Orthopaedic Surgery; Visit Provider Orthopaedic Surgery
DX: M50.30 Other cervical disc degeneration, unspecified cervical region (principal); M54.12 Radiculopathy, cervical region
CPT/HCPCS: 72141

== ENCOUNTER → 2022-12-17 | Outpatient (CLI) | payer BC, SELFPAY ==
[2022-12-17 16:14] LABS: Mucous, Urine 0 SEEN /hpf (<or=2+); Red Blood Cells-Urine 0 SEEN /hpf (0-5)
[2022-12-17 17:52] LABS: Color, Urine Yellow (Yellow); Glucose, Dipstick 50 mg/dl (Normal); Ketone-Dipstick 5 mg/dl (Negative); Leukocyte Esterase-Dipstick 500 /ul (Negative); Nitrite-Dipstick Negative (Negative); Occult Blood-Urine 250 /ul (Negative); Protein-Dipstick 15 mg/dl (Negative); Urine Bilirubin Dipstick Negative (Negative); Urine Clarity Clear (Clear); Urine Urobilinogen Normal (Normal)
[2022-12-17 18:03] LABS: Bacteria RARE /hpf (None Seen); Squamous Epithelial Cells - UA 0-5 SEEN /hpf (5-10)
[2022-12-17 18:04] LABS: White Blood Cells 5-10 SEEN /hpf (0-5)
== END | disposition home or self-care (01) ==
PROVIDERS: PCP Internal Medicine; Visit Provider Physician Assistant Surgical
DX: R30.0 Dysuria (principal)
CPT/HCPCS: 81001; 87086

== ENCOUNTER 2023-02-01 22:18 | Emergency (ER) | payer BC, SELFPAY ==
[2023-02-01 22:19] VITALS: BP 130/84; PULSE 84; RESP 16; TEMP 36.6; O2SAT 97; BMI 31.4
[2023-02-01 22:40] LABS: Mucous, Urine 0 SEEN /hpf (<or=2+)
[2023-02-01 22:45] LABS: Color, Urine Yellow (Yellow); Glucose, Dipstick Normal (Normal); Ketone-Dipstick 5 mg/dl (Negative); Leukocyte Esterase-Dipstick 500 /ul (Negative); Nitrite-Dipstick Negative (Negative); Occult Blood-Urine 250 /ul (Negative); Protein-Dipstick 30 mg/dl (Negative); Specific Gravity, Urine 1.015 (1.002-1.030); Urine Bilirubin Dipstick Negative (Negative); Urine Clarity Cloudy (Clear); Urine Urobilinogen 1 mg/dl (Normal); Urine pH 6.5 (5.0 - 8.0)
[2023-02-01 22:52] LABS: Red Blood Cells-Urine 0-5 SEEN /hpf (0-5); Squamous Epithelial Cells - UA 0-5 SEEN /hpf (5-10); White Blood Cells 50-100 SEEN /hpf (0-5)
[2023-02-01 22:53] LABS: Bacteria 1+ /hpf (None Seen)
[2023-02-01 23:02] LABS: Absolute Neutrophil Count 1.6 X10^3/uL (2.0-7.7); Basophil# 0.02 X10^3/uL; Basophil% 0.6 % (0-1); Eosinophil# 0.13 X10^3/uL; Eosinophils% 4.1 % (0-5); Hematocrit 34.5 % (37-47); Hemoglobin 11.5 g/dL (12.0-15.0); Lymphocyte % 28.4 % (19-41); Mean Corp Hgb Conc 33.3 g/dL (32-36); Mean Corpuscular Hgb 36.2 pg (27.0-32.0); Mean Corpuscular Volume 108.5 fL (81-99); Mean Platelet Vol. 10.6 fl (6.2-12.0); Monocyte# 0.55 X10^3/uL; Monocyte% 17.4 % (0-10); NRBC Flagged by Analyzer 0 % (0-5); Neutrophil # 1.56 X10^3/uL (2.7-7.7); Neutrophil % 49.2 % (47-70); Platelet Count 128 K/mm3 (150-450); RBC Distribution Width SD 55.8 fl (35.1-43.9); Red Blood Count 3.18 M/mm3 (4.2-5.4); White Blood Count 3.2 K/mm3 (4.4-11.0)
--- NOTE | 2023-02-01 23:16 | EDS_ITS ---
HPI HPI - GI History of Present Illness Chief Complaint: Abd Pain Narrative Narrative: 37-year-old female presents with her because of left upper quadrant abdominal pain/pressure that she has had for the last week and a half. It has been associated with nausea but no vomiting. She denies any problems with bowel movements or diarrhea, no dysuria or hematuria. No fevers or chills. She has not had any prior abdominal surgeries. She is on control continuously so she does not have menstrual periods. She denies any true exacerbating or alleviating factors to this abdominal pressure. She feels like it is under her left rib cage in the left upper quadrant of her abdomen. She denies any cough or shortness of breath. Sometimes standing affects it. She has an appoint with her primary care provider for early February, approximately a week to 2 weeks from now, but she became concerned because of his continued presence. [facility] Medical History Anxiety Anxiety and depression Cervical radiculopathy Chronic neck pain Congestion of left ear Depression Encounter for vitamin deficiency screening Frequent headaches H/O emotional problems Health care maintenance Heart valve disorder Hormone deficiency Hyperglycemia Hypersomnolence Non-alcoholic fatty liver disease Nonrheumatic mitral (valve) prolapse Post-nasal drip Screening for thyroid disorder Seasonal allergies Suicide ideation Urinary frequency UTI (urinary tract infection) Vision problems Vitamin deficiency Home Medications multivitamin 1 tablet PO DAILY 02/16/19 [History Last Taken Unknown] norgestimate 0.25 mg-ethinyl estradiol 35 mcg tablet 1 tab PO DAILY 02/16/19 [History Last Taken Unknown] cyanocobalamin (vitamin B-12) 500 mcg tablet 1,000 mcg PO DAILY@0800 03/26/20 [History Last Taken Unknown] vitamin E (dl, acetate) 180 mg (400 unit) capsule 400 units PO DAILY 03/26/20 [History Last Taken Unknown] bupropion HCl 150 mg 24 hr tablet, extended release 300 mg PO QAM 07/19/20 [History Last Taken Unknown] aripiprazole 5 mg tablet 5 mg PO DAILY 01/17/22 [History Last Taken Unknown] fluvoxamine 25 mg tablet 100 mg PO DAILY 04/24/22 [History Last Taken Unknown] zinc gluconate 50 mg tablet 50 mg PO DAILY 11/03/22 [History Last Taken Unknown] cranberry 400 mg capsule 400 mg PO DAILY 02/01/23 [History Last Taken Unknown] docusate sodium 100 mg capsule (Stool Softener) 100 mg PO DAILY 02/01/23 [History Last Taken Unknown] cephalexin 500 mg capsule 500 mg PO BID #14 caps 02/02/23 [Rx Last Taken Unknown] Allergy/AdvReac Type Severity Reaction Status Date / Time No Known Allergies Allergy Verified 02/01/23 22:20 Family History Brother Anxiety Hypertension Sister Anxiety Hypertension Uncle Anxiety Myocardial infarction Aunt Anxiety Grandmother Breast cancer Grandfather Myocardial infarction Father Hypertension Surgical History History of bone marrow biopsy Social History Smoking Status: Never smoker alcohol intake: never substance use type: does not use caffeine: Yes Type: tea Number of servings: 1 ROS ROS ED ROS Narrative Constitutional: No fever, no chills. HEENT: No sore throat. No neck pain. No loss of vision. No rhinorrhea. Cardiovascular: No chest pain. No palpitations. No pedal edema. Respiratory: No cough, no shortness of breath. Abdominal: Left upper quadrant abdominal pressure/abdominal pain. Positive nausea. No vomiting. Genitourinary: No dysuria. No hematuria. Musculoskeletal: No myalgias. No arthralgias. Neurologic: No headaches. No dizziness. No lightheadedness. Skin: No rash. No change in color. Psychiatric: No depression. History of anxiety. EXAM Physical Exam Narrative Exam Narrative: Afebrile. Vital signs noted. HEENT: Normocephalic. Atraumatic. PERRL, EOMI. Neck soft and supple. No point tenderness or step off. Cardiovascular: Regular rate and rhythm. No murmurs, rubs, or gallops appreciated. Respiratory: No tachypnea. Lungs clear to auscultation bilaterally. Gastrointestinal: Abdomen soft, nontender, with normoactive bowel sounds. No rebound or guarding. Neurological: Awake. Alert. Nonfocal, nonlateralizing. Skin: No rash. Normal color. No pallor. Musculoskeletal: No pedal edema. Full range of motion extremities. Const Vital Signs: 02/01/23 22:19 Temperature 98 F Temperature Source Temporal Pulse Rate 84 Respiratory Rate 16 Blood Pressure 130/84 H Blood Pressure Mean 99 Pulse Ox 97 Oxygen Delivery Method Room Air MDM MDM MDM Narrative Medical decision making narrative: In the differential diagnosis is ruptured spleen versus bowel obstruction versus pancreatic mass versus nonspecific abdominal pain. I have low suspicion for pulmonary embolism because the history and physical does not support this. I reviewed her laboratory work, and she has a chronic leukopenia with a WBC count of 3.2, hemoglobin 11.5 with platelet count low at 128. This is also a chronic thrombocytopenia. Urinalysis is consistent with UTI with WBC count 50-100 with leukocyte Estrace 500 but negative nitrites. There is 1+ bacteria. I do feel that imaging is indicated. I reviewed her laboratory work and she has the chronic neutropenia as above. In review of her CMP, glucose appropriately elevated at 124 with normal anion gap of 6, sodium and potassium are normal at 140 and 3.8 with chloride elevated at 108 which I think is nonspecific. Lipase is 28. Serum is negative. Urinalysis was obtained and reviewed and there are 50-100 WBCs with 1+ bacteria and negative nitrites as stated above. Patient states that she was treated for UTI approximately just over 1 week ago. She thinks she was on Bactrim at that time. I will send a urine culture and start her on cephalexin for the next 7 days. Upon repeat examination, she is resting comfortably and states that she feels mildly improved because she took ibuprofen prior to arrival. She may have an abdominal wall muscle strain as well which is also in the differential. Regardless, in review of her CT, there is no acute process. I had reviewed the radiology report of the CT of the abdomen and pelvis. At this point in time, I do feel she can be discharged to follow-up with her primary care provider. Return instructions to the emergency department were reviewed. She will continue [id number] analgesics. I do not feel narcotic pain medication is indicated. Disposition is discharged home in stable condition. History & Record Review Discussion w/independent historian: Patient and Family Additional record(s) reviewed:: Prior ED visit and Prior labs Lab Data Attestation: I reviewed the patient's lab results. Labs: Laboratory Results - last 24 hr 02/01/23 02/01/23 22:31 22:50 WBC 3.2 L RBC 3.18 L Hgb 11.5 L Hct 34.5 L MCV 108.5 H MCH 36.2 H MCHC 33.3 RDW Std Deviation 55.8 H RDW Coeff of Kristy 14.0 Plt Count 128 L MPV 10.6 Immature Gran % (Auto) 0.300 Neut % (Auto) 49.2 Lymph % (Auto) 28.4 Mckinley % (Auto) 17.4 H Eos % (Auto) 4.1 Baso % (Auto) 0.6 Absolute Neuts (auto) 1.6 L Absolute Lymphs (auto) 0.90 Nucleated RBC % 0 Sodium 140 Potassium 3.8 Chloride 108 H Carbon Dioxide 26.0 Anion Gap 6 BUN 15 Creatinine 1.00 Estim Creat Clear Calc 82.00 Est GFR (MDRD) Af Amer 80 Est GFR (MDRD) Non-Af 66 BUN/Creatinine Ratio 15.0 Glucose 124 H Calcium 9.1 Total Bilirubin 0.20 AST 30 ALT 66 H Alkaline Phosphatase 66 Total Protein 6.6 Albumin 3.4 Globulin 3.2 Albumin/Globulin Ratio 1.1 Lipase 28 Serum , Qual NEGATIVE Urine Color Yellow Urine Clarity Cloudy Urine pH 6.5 Ur Specific [place] 1.015 Urine Protein 30 H Urine Glucose (UA) Normal Urine Ketones 5 H Urine Occult Blood 250 H Urine Nitrite Negative Urine Bilirubin Negative Urine Urobilinogen 1 H Ur Leukocyte Esterase 500 H Urine RBC 0-5 SEEN Urine WBC 50-100 SEEN Ur Squamous Epith Cells 0-5 SEEN Urine Bacteria 1+ Urine Mucus 0 SEEN Radiography Diagnostic Testing: Clinical Impression(s) from Imaging Studies Abdomen/Pelvis CT 02/02/23 00:20 IMPRESSION: No acute finding in the abdomen or pelvis. Prominent uterine fibroid noted. Electronically Signed: Clark Nunn MD at 0:48 EST Reading Location ID and State: [address] [place] [address] Tel , Service support , Discharge Plan Triage Chief Complaint: Abd Pain ED Provider: Umang Matos Dx/Rx/DC Orders Clinical Impression: Abdominal pain, LUQ (left upper quadrant), UTI (urinary tract infection) Instructions: ED Abdominal Pain Unkn Cause Fem, ED Pain, Acute, Uncertain Cause, ED Cystitis Female Adult Prescriptions: New cephalexin 500 mg capsule 500 mg PO BID Qty: 14 0RF No Action norgestimate-ethinyl estradiol 0.25-35 mg-mcg tablet 1 tab PO DAILY multivitamin 1 tablet PO DAILY bupropion HCl 150 mg tablet extended release 24 hr 300 mg PO QAM aripiprazole 5 mg tablet 5 mg PO DAILY fluvoxamine 25 mg tablet 100 mg PO DAILY zinc gluconate 50 mg tablet 50 mg PO DAILY cyanocobalamin (vitamin B-12) 500 MCG tablet 1,000 mcg PO DAILY@0800 vitamin E (dl, acetate) 400 UNITS capsule 400 units PO DAILY cranberry 400 mg capsule 400 mg PO DAILY Rx Instructions: administer with a meal docusate sodium [Stool Softener] 100 mg capsule 100 mg PO DAILY Patient Comments: Over the counter Primary Care Provider: Tiffany Sanders Referrals: Tiffany Sanders MD [Primary Care Provider] - 3-5 Days if not improving Activity Restrictions/Additional Instructions: Follow-up with your primary care provider in the next 3 to 5 days. Take all of the antibiotic as directed. Return with increased pain, new or worsening symptoms. Disposition Disposition: Home, Self Care
[2023-02-01 23:20] LABS: ALB/GLOB Ratio 1.1 RATIO (0.9-2.4); AST(SGOT) 30 U/L (15-37); Alanine Aminotransfer ALT/SGPT 66 U/L (13-56); Albumin, Serum 3.4 g/dL (3.2-5.0); Alkaline Phosphatase 66 U/L (45-117); Anion Gap 6 (5-15); BUN 15 mg/dL (7-18); Calcium,Total 9.1 mg/dL (8.5-10.1); Chloride 108 mmol/L (98-107); EST Glomerular Filtration Rate 66 mL/min (>60); Est Glom Filt Rate - Afr Amer 80 mL/min (>60); Globulin 3.2 g/dL (2.2-4.2); Glucose 124 mg/dL (74-106); Potassium 3.8 mmol/L (3.5-5.1); Protein, Total 6.6 g/dL (6.4-8.2); Sodium Level 140 mmol/L (136-145)
[2023-02-01] MEDS: 0.9% Normal Saline (1000mL) 1,000 ML 1000 ML IV (23:27)
[2023-02-01] MEDS: Metoclopramide 10 MG/2 ML Vial IV (23:27)
[2023-02-01 23:40] LABS: Lipase 28 U/L (13-75)
[2023-02-01 23:59] LABS: Internal QC Validated? YES +Cl - CLEAR BKGD; Pregnancy, Serum, hCG Quali. NEGATIVE Negative
--- NOTE | 2023-02-02 00:20 | CT_ITS ---
STUDY: CT ABDOMEN AND PELVIS WITH CONTRAST REASON FOR EXAM: Female, 37 years old. Left upper quadrant pain RADIATION DOSAGE (If Supplied By Facility): CTDIvol = ( 10.52 ) mGy, DLP = ( 563.41 ) mGycm TECHNIQUE: IV 100mL Isovue-370 was administered. Transaxial images were obtained from the dome of the diaphragm to the symphysis pubis in the portal venous phase. Multiplanar coronal and sagittal images were reformatted. Individualized Dose Optimization Techniques Were Used For This CT. COMPARISON: No relevant prior comparison study available FINDINGS: LOWER CHEST: Lung bases are clear. No cardiomegaly or pericardial effusion. LIVER: The liver is normal in size, shape, and attenuation. No focal mass. GALLBLADDER AND BILIARY TREE: The gallbladder is contracted. No gallstones. No gallbladder wall thickening or edema. No pericholecystic fluid. No intra- or extrahepatic biliary ductal dilation. PANCREAS: No focal cystic or solid mass. SPLEEN: Normal size without focal cystic or solid mass. ADRENAL GLANDS: No nodules. KIDNEYS AND URETERS: Normal renal size and position. No hydronephrosis or nephrolithiasis. PERITONEUM: No ascites or free air. No other fluid collection. BOWEL: The stomach is unremarkable. Normal caliber small bowel. There is no obstruction. No colonic wall thickening or inflammation. No free air or free fluid. No evidence of acute appendicitis. LYMPH NODES: No enlarged mesenteric or retroperitoneal lymph nodes. VESSELS: Aorta is non-dilated. URINARY BLADDER: Unremarkable. REPRODUCTIVE ORGANS: Anteverted uterus. Prominent fibroid along the anterior uterus measuring 7 cm . Additional smaller fibroids noted. No adnexal mass. ABDOMINAL WALL: No discrete abdominal or pelvic wall hernia. BONES: No lytic or blastic abnormality. CT/Abdomen/Pelvis W IV Cont ONLY IMPRESSION: No acute finding in the abdomen or pelvis. Prominent uterine fibroid noted. Electronically Signed: Clark Nunn MD at 0:48 EST ,
[2023-02-02] MEDS: Cephalexin 250 MG Capsule 500 MG PO (01:22)
[2023-02-02 01:35] VITALS: BP 122/80; PULSE 79; RESP 16; O2SAT 97
== END 2023-02-02 02:13 | disposition home or self-care (01) ==
PROVIDERS: Emergency Provider Emergency Medicine; PCP Internal Medicine; Visit Provider Emergency Medicine
DX: R10.12 Left upper quadrant pain (principal); D70.8 Other neutropenia; D69.6 Thrombocytopenia, unspecified; N39.0 Urinary tract infection, site not specified
CPT/HCPCS: 74177; 80053; 81001; 83690; 84703; 85025; 87086; 96361; 96374; 99282; J7030; Q9967; A4216

== ENCOUNTER → 2023-02-10 | Outpatient (CLI) | payer BC, SELFPAY ==
[2023-02-10 08:37] LABS: Bacteria 0 SEEN /hpf (None Seen); Mucous, Urine 0 SEEN /hpf (<or=2+); White Blood Cells 0 SEEN /hpf (0-5)
[2023-02-10 12:23] LABS: Color, Urine Yellow (Yellow); Glucose, Dipstick Normal (Normal); Ketone-Dipstick 5 mg/dl (Negative); Leukocyte Esterase-Dipstick 25 /ul (Negative); Nitrite-Dipstick Negative (Negative); Occult Blood-Urine 250 /ul (Negative); Protein-Dipstick Negative (Negative); Specific Gravity, Urine 1.025 (1.002-1.030); Urine Bilirubin Dipstick Negative (Negative); Urine Clarity Sl. Cloudy (Clear); Urine Urobilinogen Normal (Normal)
[2023-02-10 12:29] LABS: Red Blood Cells-Urine 10-25 SEEN /hpf (0-5); Squamous Epithelial Cells - UA 5-10 SEEN /hpf (5-10)
== END | disposition home or self-care (01) ==
PROVIDERS: PCP Internal Medicine; Visit Provider Internal Medicine
DX: N39.0 Urinary tract infection, site not specified (principal)
CPT/HCPCS: 36415; 81001; 87077; 87086; 87088; 87186

== ENCOUNTER → 2023-05-29 | Outpatient (CLI) | payer BC, SELFPAY ==
[2023-05-29 12:37] LABS: Vitamin D,25 Hydroxy 50.6 ng/mL
[2023-05-29 12:58] LABS: Cholesterol 219 mg/dL (200); High Density Lipoprotein 86 mg/dL; T4 Free Direct 0.81 ng/dL (0.76-1.46); Triglycerides 148 mg/dL; Very Low Density Lipoprotein 30 mg/dL (5-40)
[2023-05-29 13:52] LABS: Hemoglobin A1c 5.2 % (3.8-5.6)
== END | disposition home or self-care (01) ==
LOC: BIMLAB 11:29
PROVIDERS: PCP Internal Medicine; Referring Provider Internal Medicine; Visit Provider Internal Medicine
DX: Z00.00 Encounter for general adult medical examination without abnormal findings (principal); Z13.29 Encounter for screening for other suspected endocrine disorder; R73.9 Hyperglycemia, unspecified
CPT/HCPCS: 36415; 80061; 82306; 83036; 84439; 84443

== ENCOUNTER 2023-07-24 12:02 | Emergency (ER) | payer BC, SELFPAY ==
[2023-07-24 12:02] VITALS: BP 140/86; PULSE 92; RESP 14; TEMP 35.6; O2SAT 100; BMI 32.2
--- NOTE | 2023-07-24 12:26 | EX.ED.VIS.HA ---
HPI History of Present Illness Chief Complaint: Headache Informant: patient Onset/Context/Timing Onset: Days (3) Context: Gradual Timing: Continuous Quality -Headache: Positive for Sharp Location: Right posterior parietal/occipital area Worsened by: Bending, standing, certain movements Relieved by: Nothing Associated Symptoms/Injury Associated Symptoms: Negative for Fever, Nausea, Vomiting, Sore Throat, Sinus Pressure, Numbness, Tingling, Preceding Aura, Visual Changes, Blurred Vision, Photophobia or Visual Loss Injury - CASSIDY: Negative for Direct Trauma Narrative Narrative: Patient presents with a headache that has been constant for the past 3 days. Patient states it is mainly over the right posterior parietal/occipital area. Patient describes her pain as sharp. Patient states it came on gradually. Patient states it has been constant. Patient states it is worse with bending, standing, and certain movements. Patient states nothing seems to help with it. Patient had a recent skin cancer excision of her right temporal area. Patient denies any fevers or chills. Patient denies any tenderness over the incision. Patient denies any visual changes or scotoma. Patient denies any nausea or vomiting. [facility] Medical History (Updated 07/24/23 @ 13:[address] Triston Noe, DO) Preventative health care Depression Anxiety Cervical radiculopathy Hyperglycemia Encounter for vitamin deficiency screening Chronic neck pain Hypersomnolence Screening for thyroid disorder Health care maintenance Congestion of left ear Post-nasal drip Urinary frequency Nonrheumatic mitral (valve) prolapse Non-alcoholic fatty liver disease Suicide ideation Anxiety and depression Heart valve disorder Vitamin deficiency Vision problems Hormone deficiency Frequent headaches H/O emotional problems UTI (urinary tract infection) Seasonal allergies Home Medications ?Medication ?Instructions ?Recorded ?Last Taken ?Type multivitamin 1 tablet PO DAILY 02/16/19 Unknown History norgestimate 0.25 mg-ethinyl 1 tab PO DAILY 02/16/19 Unknown History estradiol 35 mcg tablet cyanocobalamin (vitamin B-12) 500 1,000 mcg PO DAILY@0800 03/26/20 Unknown History mcg tablet vitamin E (dl, acetate) 180 mg 400 units PO DAILY 03/26/20 Unknown History (400 unit) capsule bupropion HCl 150 mg 24 hr tablet, 300 mg PO QAM 07/19/20 Unknown History extended release aripiprazole 5 mg tablet 5 mg PO DAILY 01/17/22 Unknown History fluvoxamine 25 mg tablet 100 mg PO DAILY 04/24/22 Unknown History zinc gluconate 50 mg tablet 50 mg PO DAILY 11/03/22 Unknown History cranberry 400 mg capsule 400 mg PO DAILY 02/01/23 Unknown History docusate sodium 100 mg capsule 100 mg PO DAILY 02/01/23 Unknown History (Stool Softener) Allergy/AdvReac Type Severity Reaction Status Date / Time No Known Allergies Allergy Verified 07/24/23 12:03 Family History Brother Anxiety Hypertension Sister Anxiety Hypertension Uncle Anxiety Myocardial infarction Aunt Anxiety Grandmother Breast cancer Grandfather Myocardial infarction Father Hypertension Surgical History Hx of local excision of skin lesion History of bone marrow biopsy Social History Smoking Status: Never smoker alcohol intake: never substance use type: does not use caffeine: Yes Type: tea Number of servings: 1 ROS ROS ED Constitutional Constitutional ED: Denies chills or fever(s) Eyes Eyes: Denies blurry vision or change in vision ENT ENT ED: Denies rhinorrhea or sore throat Cardiovascular Cardiovascular: Denies chest pain or palpitations Respiratory/Chest Respiratory/Chest: Denies cough or dyspnea Gastrointestinal Gastrointestinal: Denies nausea or vomiting Genitourinary Genitourinary ED: Denies dysuria or hematuria Musculoskeletal Musculoskeletal: Reports back pain and neck pain Integumentary Denies abscess or rash Neurologic Neurologic: Reports headache(s); Denies weakness Allergic/Immunologic Allergic/Immunologic ED: Denies mouth swelling or urticaria EXAM Physical Exam Const Vital Signs: 07/24/23 12:02 Temperature 96.1 F L Temperature Source Temporal Pulse Rate 92 Respiratory Rate 14 Blood Pressure 140/86 H Blood Pressure Mean 104 Pulse Ox 100 Oxygen Delivery Method Room Air Positive well nourished and well developed General Appearance ED: well developed and NAD HEENT Reports moist mucous membranes HEENT Narrative: There is a healing incision over the right temporal area. There is no tenderness. There is no fluctuance. There is no discharge or drainage noted. The incision is healing well. There is mild tenderness over the right posterior parietal/occipital area. There is no bony crepitance or step-off noted. Negative for temporal artery tenderness or vesicular rash Eyes PERRL and EOMs intact bilaterally Neck supple, no meningeal signs and no JVD Resp normal respiratory effort and clear to auscultation bilaterally Cardio regular rate and regular rhythm GI non-tender and non-distended Palpation: soft Neuro oriented x3, CN's II-XII intact bilaterally and no sensory deficits noted [place] Coma Scale: document GCS findings Spontaneous Obeys Commands Oriented 15 Sensorium / Orientation: awake and alert Speech: speech normal Motor Exam: strength 5/5 throughout MDM MDM MDM Narrative Medical decision making narrative: Differential diagnosis includes migraine headache, neuropathy, tension headache, and intracranial bleeding. CT scan of the brain will be obtained to assess for intracranial bleeding. Radiography Diagnostic Testing: Clinical Impression(s) from Imaging Studies Brain CT 07/24/23 12:34 IMPRESSION: Normal unenhanced CT scan of the brain. Electronically Signed: Delmer Nina MD at 13:17 EDT , CT scan of the brain was obtained. There is no acute intracranial abnormality. This was interpreted by the radiologist and was also independently reviewed by myself. Treatment and Re-Evaluation Narrative: Patient was given IV fluids, Reglan, and Benadryl. Discharge Plan Triage Chief Complaint: Headache ED Provider: Triston Noe Dx/Rx/DC Orders Clinical Impression: Headache, Hormone deficiency Instructions: ED Headache Unspecified Prescriptions: No Action norgestimate-ethinyl estradiol 0.25-35 mg-mcg tablet 1 tab PO DAILY multivitamin 1 tablet PO DAILY bupropion HCl 150 mg tablet extended release 24 hr 300 mg PO QAM aripiprazole 5 mg tablet 5 mg PO DAILY fluvoxamine 25 mg tablet 100 mg PO DAILY zinc gluconate 50 mg tablet 50 mg PO DAILY cyanocobalamin (vitamin B-12) 500 MCG tablet 1,000 mcg PO DAILY@0800 vitamin E (dl, acetate) 400 UNITS capsule 400 units PO DAILY cranberry 400 mg capsule 400 mg PO DAILY Rx Instructions: administer with a meal docusate sodium [Stool Softener] 100 mg capsule 100 mg PO DAILY Patient Comments: Over the counter Primary Care Provider: Tiffany Sanders Referrals: Tiffany Sanders MD [Primary Care Provider] - 3-5 Days Print Language: [place] Disposition Disposition: Home, Self Care
--- NOTE | 2023-07-24 12:34 | CT_ITS ---
STUDY: CT BRAIN WITHOUT CONTRAST REASON FOR EXAM: Female, 37 years old. 3 day history of headaches. RADIATION DOSAGE (If Supplied By Facility): CTDIvol = ( 44.99 ) mGy, DLP = ( 796.11 ) mGycm TECHNIQUE: Transaxial CT imaging of the brain was performed without administration of intravenous contrast material. Individualized dose optimization techniques were used for this CT. COMPARISON: No relevant priors. FINDINGS: Normal soft tissue structures. Normal calvarium. Normal size ventricles and extra-axial spaces for the patient''s age. Normal white matter tracts of the cerebral hemispheres. Normal basal ganglia and thalami. Normal brainstem. Normal cerebellum. There is no intracranial hemorrhage. There are no findings of an acute ischemic infarction. Normal visualized paranasal sinuses. CT/Brain/Head without Contrast IMPRESSION: Normal unenhanced CT scan of the brain. Electronically Signed: Delmer Nina MD at 13:17 EDT ,
[2023-07-24] MEDS: 0.9% Normal Saline (1000mL) 1,000 ML 999 ML IV (13:05)
[2023-07-24] MEDS: DiphenhydrAMINE 50 MG/ML Syringe 25 MG IV (13:05)
[2023-07-24] MEDS: Metoclopramide 10 MG/2 ML Vial IV (13:05)
[2023-07-24 14:02] VITALS: BP 109/78; PULSE 80; RESP 14; O2SAT 99
== END 2023-07-24 14:42 | disposition home or self-care (01) ==
PROVIDERS: Emergency Provider Emergency Medicine; PCP Internal Medicine; Visit Provider Emergency Medicine
DX: R51.9 Headache, unspecified (principal); M54.2 Cervicalgia; R89.1 Abnormal level of hormones in specimens from other organs, systems and tissues
CPT/HCPCS: 70450; 96361; 96374; 96375; 99283; J7030; A4216

== ENCOUNTER → 2023-08-21 | Outpatient (CLI) | payer BC, SELFPAY ==
[2023-08-21 15:08] LABS: Absolute Lymphocyte Count 0.69 X10^3/uL (0.83-4.51); Absolute Neutrophil Count 1.1 X10^3/uL (2.0-7.7); Basophil# 0.02 X10^3/uL; Basophil% 0.8 % (0-1); Eosinophil# 0.05 X10^3/uL; Eosinophils% 2.1 % (0-5); Hematocrit 33.8 % (37-47); Hemoglobin 11.3 g/dL (12.0-15.0); Lymphocyte # 0.69 X10^3/ul (0.83-4.51); Lymphocyte % 28.6 % (19-41); Mean Corp Hgb Conc 33.4 g/dL (32-36); Mean Corpuscular Hgb 36.7 pg (27.0-32.0); Mean Corpuscular Volume 109.7 fL (81-99); Mean Platelet Vol. 10.9 fl (6.2-12.0); Monocyte# 0.51 X10^3/uL; Monocyte% 21.2 % (0-10); NRBC Flagged by Analyzer 0 % (0-5); Neutrophil # 1.13 X10^3/uL (2.7-7.7); Neutrophil % 46.9 % (47-70); Platelet Count 126 K/mm3 (150-450); RBC Distribution Width CV 14.5 % (11.6-14.6); RBC Distribution Width SD 58.3 fl (35.1-43.9); Red Blood Count 3.08 M/mm3 (4.2-5.4); White Blood Count 2.4 K/mm3 (4.4-11.0)
[2023-08-21 15:36] LABS: ALB/GLOB Ratio 1.1 RATIO (0.9-2.4); AST(SGOT) 30 U/L (15-37); Alanine Aminotransfer ALT/SGPT 66 U/L (13-56); Albumin, Serum 3.4 g/dL (3.2-5.0); Alkaline Phosphatase 71 U/L (45-117); Anion Gap 9 (5-15); BUN 14 mg/dL (7-18); BUN/Creat Ratio 15.5 RATIO (10-20); Calcium,Total 8.8 mg/dL (8.5-10.1); Chloride 107 mmol/L (98-107); EST Glomerular Filtration Rate 74 mL/min (>60); Est Glom Filt Rate - Afr Amer 90 mL/min (>60); Globulin 3.2 g/dL (2.2-4.2); Glucose 133 mg/dL (74-106); Potassium 3.8 mmol/L (3.5-5.1); Protein, Total 6.6 g/dL (6.4-8.2); Sodium Level 138 mmol/L (136-145); T4 Free Direct 0.71 ng/dL (0.76-1.46); Thyroid Stim Hormone (TSH) 2.31 uIU/mL (0.358-3.74)
[2023-08-28 18:08] LABS: Calprotectin, Stool 191 ug/g (0-120)
== END | disposition home or self-care (01) ==
LOC: BIMLAB 13:43
PROVIDERS: PCP Internal Medicine; Referring Provider Internal Medicine; Visit Provider Internal Medicine
DX: K52.9 Noninfective gastroenteritis and colitis, unspecified (principal)
CPT/HCPCS: 36415; 80053; 83630; 83993; 84439; 84443; 85025; 87506

== ENCOUNTER → 2023-10-05 | Outpatient (CLI) | payer BC, SELFPAY ==
[2023-10-07 16:10] LABS: Endomysial Antibody IgA Negative (Negative); Immunoglobulin A 182 mg/dL (87-352); t-Transglutaminase IgA <2 U/mL (0-3)
== END | disposition home or self-care (01) ==
LOC: MTLAB 15:57
PROVIDERS: PCP Internal Medicine; Referring Provider Internal Medicine Gastroenterology; Visit Provider Internal Medicine Gastroenterology
DX: R19.7 Diarrhea, unspecified (principal)
CPT/HCPCS: 36415; 82784; 83516; 86140; 86255

== ENCOUNTER → 2023-11-30 | Outpatient (CLI) | payer BC, SELFPAY ==
[2023-11-30 15:52] LABS: Mucous, Urine 0 SEEN /hpf (<or=2+)
[2023-11-30 16:14] LABS: Color, Urine Yellow (Yellow); Glucose, Dipstick 100 mg/dl (Normal); Ketone-Dipstick Negative (Negative); Leukocyte Esterase-Dipstick 500 /ul (Negative); Nitrite-Dipstick Negative (Negative); Occult Blood-Urine 25 /ul (Negative); Protein-Dipstick Negative (Negative); Specific Gravity, Urine 1.015 (1.002-1.030); Urine Bilirubin Dipstick Negative (Negative); Urine Clarity Clear (Clear); Urine Urobilinogen Normal (Normal)
[2023-11-30 16:21] LABS: Bacteria 1+ /hpf (None Seen); Red Blood Cells-Urine 0-5 SEEN /hpf (0-5); Squamous Epithelial Cells - UA 0-5 SEEN /hpf (5-10); White Blood Cells 10-25 SEEN /hpf (0-5)
== END | disposition home or self-care (01) ==
PROVIDERS: PCP Internal Medicine; Referring Provider Physician Assistant; Visit Provider Physician Assistant
DX: R30.0 Dysuria (principal)
CPT/HCPCS: 81001; 87086; 87088

== ENCOUNTER → 2024-01-12 | Outpatient (CLI) | payer BC, SELFPAY ==
--- NOTE | 2024-01-12 09:57 | US_ITS ---
STUDY: ABDOMINAL ULTRASOUND - RIGHT UPPER QUADRANT REASON FOR VISIT: Female, 38 years old elevated LFTs TECHNIQUE: Ultrasound evaluation of the right upper quadrant was performed with real-time and static marte-scale imaging. TECHNICAL QUALITY: Limited. Examination limited by bowel gas. COMPARISON: CT from 02/02/2023 FINDINGS: Liver: The liver measures 14.6 cm. There is increased echogenicity consistent with fatty infiltration. The bile ducts are within normal limits. There is hepatic color flow. The direction of portal flow is hepatopetal. There is no demonstrated mass lesion. Gallbladder: Normal distended gallbladder. The gallbladder wall measures 1 mm. There is a negative sonographic Burgess''s sign. There is no pericholecystic fluid. There are no gallstones, there is echogenic sludge. Common Bile Duct (C.B.D.): The common bile duct measures 5 mm. Pancreas: Normal size of the head, body and tail of the pancreas. There is normal echogenicity of the pancreas. There is no demonstrated pancreatic mass or cyst. Right Kidney: Normal size of the right kidney. The right kidney measures 10.2 x 4.9 x 5.0 cm. Normal renal cortex. The right cortex measures 1.5 cm. There is no demonstrated renal mass or cyst. There is no right hydronephrosis. Elastography worksheet performed. Site A kPa 15.3, m/s 2.24 kPa%7.2, m/s%3.3 F3-F4 Site B kPa 14.1, m/s 2.16, kPa% 9.9, m/s% 5.1 F3-4 Site C kPa 14.8, m/s 2.21, kPa% 10.5, m/s% 5.0 F3-F4 US/Abdomen Limited IMPRESSION: Fatty liver, no discrete lesion Echogenic sludge in the gallbladder, no sonographic evidence of cholecystitis Electronically Signed: Robert Mares MD at 9:27 EST ,
== END | disposition home or self-care (01) ==
LOC: US 09:55
PROVIDERS: PCP Internal Medicine; Referring Provider Internal Medicine Gastroenterology; Visit Provider Internal Medicine Gastroenterology
DX: K76.0 Fatty (change of) liver, not elsewhere classified (principal)
CPT/HCPCS: 76705

== ENCOUNTER → 2024-01-14 | Outpatient (CLI) | payer BC, SELFPAY ==
[2024-01-14 12:07] LABS: Absolute Lymphocyte Count 0.53 X10^3/uL (0.83-4.51); Absolute Neutrophil Count 1.2 X10^3/uL (2.0-7.7); Basophil# 0.02 X10^3/uL; Basophil% 0.9 % (0-1); Eosinophil# 0.11 X10^3/uL; Eosinophils% 4.7 % (0-5); Hematocrit 36.8 % (37-47); Hemoglobin 12.6 g/dL (12.0-15.0); Lymphocyte # 0.53 X10^3/ul (0.83-4.51); Lymphocyte % 22.6 % (19-41); Mean Corp Hgb Conc 34.2 g/dL (32-36); Mean Corpuscular Hgb 36.3 pg (27.0-32.0); Mean Corpuscular Volume 106.1 fL (81-99); Mean Platelet Vol. 11.3 fl (6.2-12.0); Monocyte# 0.48 X10^3/uL; Monocyte% 20.4 % (0-10); NRBC Flagged by Analyzer 0 % (0-5); Neutrophil # 1.21 X10^3/uL (2.7-7.7); Neutrophil % 51.4 % (47-70); POSITIVE DIFFERENTIAL YES; Platelet Count 145 K/mm3 (150-450); RBC Distribution Width CV 13.2 % (11.6-14.6); Red Blood Count 3.47 M/mm3 (4.2-5.4); White Blood Count 2.4 K/mm3 (4.4-11.0)
[2024-01-14 12:09] LABS: Differential Indicated SCAN CRITERIA MET
[2024-01-14 12:52] LABS: ALB/GLOB Ratio 1.4 RATIO (0.9-2.4); AST(SGOT) 59 U/L (15-37); Alanine Aminotransfer ALT/SGPT 101 U/L (13-56); Albumin, Serum 3.8 g/dL (3.2-5.0); Alkaline Phosphatase 96 U/L (45-117); Anion Gap 6 (5-15); BUN 15 mg/dL (7-18); BUN/Creat Ratio 17.6 RATIO (10-20); Calcium,Total 9.4 mg/dL (8.5-10.1); Chloride 108 mmol/L (98-107); Creatinine, Serum 0.85 mg/dL (0.55-1.02); EST Glomerular Filtration Rate 79 mL/min (>60); Est Glom Filt Rate - Afr Amer 96 mL/min (>60); Globulin 2.7 g/dL (2.2-4.2); Glucose 90 mg/dL (74-106); Potassium 4.1 mmol/L (3.5-5.1); Protein, Total 6.5 g/dL (6.4-8.2); Sodium Level 139 mmol/L (136-145)
[2024-01-14 13:16] LABS: Vitamin D,25 Hydroxy 46.9 ng/mL
[2024-01-15 14:16] LABS: Pathologist Review Reviewed
== END | disposition home or self-care (01) ==
PROVIDERS: PCP Internal Medicine; Referring Provider Internal Medicine; Visit Provider Internal Medicine
DX: K75.81 Nonalcoholic steatohepatitis (NASH) (principal); M85.80 Other specified disorders of bone density and structure, unspecified site
CPT/HCPCS: 36415; 80053; 82306; 85025

== ENCOUNTER → 2024-01-18 | Outpatient (CLI) | payer BC, SELFPAY ==
--- NOTE | 2024-01-18 12:18 | CT_ITS ---
STUDY: CT CHEST with CONTRAST REASON FOR EXAM: Female, 38 years old. Palpitations RADIATION DOSAGE (If Supplied By Facility): CTDIvol = ( 23.39 ) mGy, DLP = ( 1555.63 ) mGycm TECHNIQUE: Transaxial imaging was performed with the administration of 100 mL of Isovue 370 intravenous contrast material. Cardiac over read examination. Individualized dose optimization techniques were used for this CT. COMPARISON: No relevant priors. FINDINGS: CHEST The lungs are normal. There is no demonstrated pleural abnormality. Normal heart and pericardium. No coronary artery calcification is seen. Normal mediastinum. Normal hilar regions. Normal unenhanced pulmonary arteries. Normal aorta arch and descending thoracic aorta. Normal osseous structures. Fatty infiltration of the liver. CT/Limited Chest CT Cardiac Only IMPRESSION: No coronary artery calcification is seen. Fatty infiltration of the liver. Electronically Signed: Delmer Nina MD at 14:49 EST ,
[2024-01-18 12:47] VITALS: BP 104/59; PULSE 99; RESP 16; TEMP 36.2; O2SAT 99; BMI 31.1
[2024-01-18 13:43] VITALS: BP 138/78; PULSE 47
[2024-01-18] MEDS: Nitroglycerin SL (ED/IMG/CATH) 0.4 MG TABLET SL (13:43)
[2024-01-18 13:52] VITALS: BP 130/85; PULSE 65; RESP 16; O2SAT 97
--- NOTE | 2024-01-18 14:59 | CA.SCORE ---
Calcium Scoring Date of Study:: 01/18/24 Indications Indications: palpitations Coronary Calcium Scoring: High-resolution Computed Tomographic imaging of the chest was performed on [01/18/24 ], with particular attention paid to the coronary arteries. Images from the examination were analyzed for the presence and extent of coronary artery calcification , using coronary calcium quantification software. The patient tolerated the procedure well and there were no complications. The results of the coronary calcification analysis are provided below. Findings Coronary Artery Left Main (LM): 0 Left Anterior Descending (LAD): 0 Left Circumflex (LCX): 0 Right Coronary Artery (RCA): 0 Total Agatston Score: 0 Percentile Rankin% Calcium Scoring Interpretation: Different methods to categorize the overall amount of coronary plaque. Overall amount CAC SIS Visual of coronary plaque P1 Mild -100 <2 1-2 vessels with mild amount of plaque P2 Moderate 101-300 3-4 1-2 vessels with moderate amount, 3 vessels with mild amount of plaque P3 Severe 301-999 5-7 3 vessels with moderate amount, 1 vessel with severe amount of plaque P4 Extensive >1000 >8 2-3 vessels with severe amount of plaque Conclusion: No atherosclerotic plaquing
== END | disposition home or self-care (01) ==
LOC: CT 12:17
PROVIDERS: PCP Internal Medicine; Referring Provider Internal Medicine Cardiovascular Disease; Visit Provider Internal Medicine Cardiovascular Disease
DX: R07.9 Chest pain, unspecified (principal); R00.2 Palpitations; R06.00 Dyspnea, unspecified
CPT/HCPCS: 75571; 75574; 76380; Q9967

== ENCOUNTER → 2024-02-08 | Outpatient (CLI) | payer BC, SELFPAY ==
[2024-02-08 18:10] LABS: AST(SGOT) 46 U/L (15-37); Alanine Aminotransfer ALT/SGPT 127 U/L (13-56); Albumin, Serum 3.7 g/dL (3.2-5.0); Alkaline Phosphatase 102 U/L (45-117); Bilirubin, Direct 0.06 mg/dL (0.00-0.30); CRP < 2.90 mg/L (0.0-3.0); Globulin 3.2 g/dL (2.2-4.2); Protein, Total 6.9 g/dL (6.4-8.2)
[2024-02-10 04:06] LABS: GGTP 143 IU/L (0-60)
== END | disposition home or self-care (01) ==
PROVIDERS: PCP Internal Medicine; Referring Provider Internal Medicine Gastroenterology; Visit Provider Internal Medicine Gastroenterology
DX: K76.0 Fatty (change of) liver, not elsewhere classified (principal)
CPT/HCPCS: 36415; 80076; 82977; 86140

== ENCOUNTER → 2024-02-11 | Outpatient (CLI) | payer BC, SELFPAY ==
--- NOTE | 2024-02-11 14:08 | BD_ITS ---
STUDY: DUAL ENERGY X-RAY ABSORPTIOMETRY / DXA REASON FOR EXAM: Female, 38 years old. Early menopause TECHNIQUE: Bone Mineral Density (BMD) measurements of lumbar spine and bilateral hips were obtained. COMPARISON: None. FINDINGS: Lumbar Spine (L1-L4): g/cm2 (1.042) / T-score (0.0) / Z-score (0.1) Left Femur Total: g/cm2 (0.854) / T-score (-0.7) / Z-score (-0.6) Left Femoral Neck: g/cm2 (0.748) / T-score (-1.0) / Z-score (-0.7) Right Femur Total: g/cm2 (0.862) / T-score (-0.7) / Z-score (-0.5) Right Femoral Neck: g/cm2 (0.735) / T-score (-1.0) / Z-score (-0.8) 10 year fracture risk: Major osteoporotic fracture 1.9%, hip fracture 0.1% BD/Dexa Bone Density Study IMPRESSION: The patient is considered osteopenic as outlined below according to World [employer] Organization (WHO) criteria with a moderate fracture risk. Reference Information: The T-score is the number of standard deviations above or below the standard which is normal for young adults at their peak bone mineral density. The World Health Organization (WHO) interprets the T-scores as follows: Above -1 Normal bone density Between -1 and -2.5 Osteopenia Equal to / or below -2.5 Osteoporosis As a practical clinical guideline, osteopenia may be graded as follows: Mild -1 through -1.5 Moderate -1.6 through -2.0 Severe -2.1 through -2.4 The Z-score is the number of standard deviations above or below age-matched controls. A Z-score of less than -1.5 would be considered abnormal. References: 1. NIH Osteoporosis and Related Bone Diseases www osteo.org 2. International Society for Clinical Densitometry www iscd.org 3. National Osteoporosis Foundation www nof.org Electronically Signed: Robert Mares MD at 11:18 EST ,
== END | disposition home or self-care (01) ==
LOC: OPBD 14:08
PROVIDERS: PCP Internal Medicine; Referring Provider Internal Medicine; Visit Provider Internal Medicine
DX: Z13.820 Encounter for screening for osteoporosis (principal); M85.80 Other specified disorders of bone density and structure, unspecified site; E28.319 Asymptomatic premature menopause
CPT/HCPCS: 77080

== ENCOUNTER → 2024-03-23 | Outpatient (CLI) | payer BC, SELFPAY ==
[2024-03-23 13:18] LABS: AST(SGOT) 32 U/L (15-37); Alanine Aminotransfer ALT/SGPT 85 U/L (13-56); Albumin, Serum 3.7 g/dL (3.2-5.0); Alkaline Phosphatase 115 U/L (45-117); Bilirubin, Direct 0.08 mg/dL (0.00-0.30); Globulin 3.2 g/dL (2.2-4.2); Protein, Total 6.9 g/dL (6.4-8.2)
[2024-03-24 04:06] LABS: GGTP 123 IU/L (0-60)
== END | disposition home or self-care (01) ==
LOC: MTLAB 09:27
PROVIDERS: PCP Internal Medicine; Referring Provider Internal Medicine Gastroenterology; Visit Provider Internal Medicine Gastroenterology
DX: K76.0 Fatty (change of) liver, not elsewhere classified (principal)
CPT/HCPCS: 36415; 80076; 82977

== ENCOUNTER 2024-03-31 06:25 | Emergency (ER) | payer BC, SELFPAY ==
[2024-03-31 06:26] VITALS: BP 132/49; PULSE 65; RESP 16; TEMP 36.8; O2SAT 99; BMI 29.0
[2024-03-31 06:28] VITALS: BP 132/49; PULSE 65; RESP 16; TEMP 36.8; O2SAT 99
--- NOTE | 2024-03-31 07:05 | RAD_ITS ---
PROCEDURE: CHEST PA AND LATERAL REASON FOR EXAM: Cough. Right lower lobe rales. Influenza a. TECHNIQUE: PA and lateral radiographs were obtained. COMPARISON: Comparison is made with prior study dated January 23, 2021. FINDINGS: The cardiothymic contour is normal. Scattered calcified granulomas. No acute abnormality is seen. The bones are unremarkable. RAD/Chest PA and Lateral IMPRESSION: No acute abnormality is seen. Reading Location: [id number]
--- NOTE | 2024-03-31 07:29 | EX.ED.DYSGE1 ---
HPI History of Present Illness Chief Complaint: Cold Sx Detail of Chief Complaint: Flulike symptoms that started March 25, diagnosed influenza A Fe Informant: patient Onset/Context/Timing Onset: Days Context: Sudden Onset Timing: Waxes and wanes Quality: Rattling sensation right side of chest Location: Chest Current Severity: Mild Maximum Severity: Moderate Worsened by: Nothing Relieved by: Nothing Associated Symptoms Associated Symptoms: Cold clammy hands, myalgias arthralgias, shortness of breath and wheezing Narrative Narrative: Patient is a 38-year-old woman. She reports illness started March 25. On March 29 she was diagnosed with influenza A. She was prescribed a metered-dose inhaler. She has been using the inhaler every 4 hours. She states she has had to use it sooner even though the prescription was written every 4 hours. She does not have history of asthma. She has no history of smoking. She has had no documented fever. Patient does complain of mild headache, congestion. She has no ear or auditory complaints. She does complain of slight sore throat. She does have a cough. The cough is nonproductive. She denies abdominal pain. She has had nausea. She initially had more GI symptoms. She has not had GI symptoms recently. She denies rash other than her hands being discolored. There is no history of Raynaud's. Prior similar symptoms: No Recent Illness/Hospitalization: No [facility] Medical History COELHO (nonalcoholic steatohepatitis) Osteopenia Obesity (BMI 30.0-34.9) Abdominal pain Chronic diarrhea Preventative health care Depression Anxiety Cervical radiculopathy Hyperglycemia Encounter for vitamin deficiency screening Chronic neck pain Hypersomnolence Screening for thyroid disorder Health care maintenance Congestion of left ear Post-nasal drip Urinary frequency Nonrheumatic mitral (valve) prolapse Non-alcoholic fatty liver disease Suicide ideation Anxiety and depression Heart valve disorder Vitamin deficiency Vision problems Hormone deficiency Frequent headaches H/O emotional problems UTI (urinary tract infection) Seasonal allergies Home Medications ?Medication ?Instructions ?Recorded ?Last Taken ?Type multivitamin 1 tablet PO DAILY 02/16/19 Unknown History vitamin E (dl, acetate) 180 mg 400 units PO DAILY 03/26/20 Unknown History (400 unit) capsule docusate sodium 100 mg capsule 100 mg PO DAILY PRN constipation 12/11/23 Unknown History (Stool Softener) albuterol sulfate 90 mcg/actuation 2 inh inhalation Q4H PRN shortness 03/31/24 Unknown History aerosol inhaler of breath or wheezing cholecalciferol (vitamin D3) 50 50 mcg PO DAILY 03/31/24 Unknown History mcg (2,000 unit) tablet (D3 DOTS) estradiol 0.1 mg/24 hr semiweekly 1 patch topical SUWE 03/31/24 Unknown History transdermal patch (Marge) fluvoxamine 100 mg tablet 100 mg PO DAILY 03/31/24 Unknown History prednisone 20 mg tablet 60 mg (3 x 20 mg) PO DAILY #15 03/31/24 Unknown Rx TABLETS Allergy/AdvReac Type Severity Reaction Status Date / Time No Known Allergies Allergy Verified 03/31/24 06:26 Family History Brother Anxiety Hypertension Sister Anxiety Hypertension Uncle Anxiety Myocardial infarction Aunt Anxiety Grandmother Breast cancer Grandfather Myocardial infarction Father Hypertension Surgical History History of hysterectomy Hx of local excision of skin lesion History of bone marrow biopsy Social History Smoking Status: Never smoker alcohol intake: never substance use type: does not use caffeine: Yes Type: tea Number of servings: 1 ROS ROS ED Constitutional Constitutional ED: Reports chills, fever(s), subjective and sweats Eyes Eyes: Denies blurry vision or change in vision ENT ENT ED: Reports rhinorrhea and sore throat; Denies ear pain Cardiovascular Cardiovascular: Reports chest pain; Denies orthopnea, palpitations, paroxysmal nocturnal dyspnea or racing heartbeat Respiratory/Chest Respiratory/Chest: Reports cough and dyspnea; Denies dyspnea on exertion, orthopnea, paroxysmal nocturnal dyspnea or sputum Gastrointestinal Gastrointestinal: Reports nausea; Denies abdominal pain Musculoskeletal Musculoskeletal: Denies arthralgias or myalgias Integumentary Denies rash Neurologic Neurologic: Reports headache(s) Hematologic/Lymphatic Hematologic/Lymphatic: Reports systems reviewed and no addt'l complaints, except as documented EXAM Physical Exam Const Vital Signs: 03/31/24 06:26 03/31/24 06:28 03/31/24 06:29 Temperature 98.3 F 98.3 F Temperature Source Oral Oral Pulse Rate 65 65 Respiratory Rate 16 16 Respiratory Effort Normal Respiratory Pattern Normal Blood Pressure 132/49 H 132/49 H Blood Pressure Mean 76 76 Pulse Ox 99 99 03/31/24 07:36 Temperature Temperature Source Pulse Rate 64 Respiratory Rate 17 Respiratory Effort Respiratory Pattern Normal Blood Pressure Blood Pressure Mean Pulse Ox Vital signs are marked for slight elevated blood pressure otherwise unremarkable Positive well nourished and well developed Constitutional Narrative: Patient appears ill but not toxic. She does not appear in distress. General Appearance ED: well developed and NAD; Negative for pallor HEENT HEENT Narrative: Head is atraumatic normocephalic. Nares patent. Ears normal. Eyes PERRL and EOMs intact bilaterally General Eye ED: Yes pale conjunctiva and scleral icterus Neck no lymphadenopathy, supple and no JVD Chest Wall inspection of chest normal Resp normal respiratory effort and No clear to auscultation bilaterally Auscultation: rales right lower (There is egophony increased vocal fremitus noted.) and left base and wheezes expiratory wheezes, left lower and right lower Cardio regular rate, regular rhythm, S1 normal heart sound, S2 normal heart sound and no murmurs GI normal to inspection, nondistended, normoactive bowel sounds, non-tender and non-distended Extremity normal to inspection Extremity Narrative: There is no clubbing or cyanosis. There is lenticular rash involving both hands. Neuro oriented x3 and CN's II-XII intact bilaterally Sensorium / Orientation: alert Psych mental status grossly normal Skin No no rashes or lesions noted, no wounds and skin turgor normal General Skin Exam: Negative for jaundice or pallor MDM MDM MDM Narrative Medical decision making narrative: In light of the abnormal oscillatory findings concern patient may have pneumonia right lower lobe. Clinically she has pneumonia. Will obtain x-ray. Patient was treated with albuterol because of the wheezing and her complaints. Radiography Chest X-Ray - ED: 2 View (2 view chest x-ray is entirely reviewed interpreted by me at 0729 as negative. Cardiac silhouette size normal. Lung parenchyma normal. Hilum is normal. Osseous trucks is normal.) and Read by ED Physician Diagnostic Testing: Clinical Impression(s) from Imaging Studies Chest X-Ray 03/31/24 07:05 IMPRESSION: No acute abnormality is seen. Reading Location: [id number] Treatment and Re-Evaluation :: Patient was reassessed at 0753. There is no wheezing. There is slight crackles at the left base. There is adventitial breath sounds right base. Plan is burst of prednisone. Patient was instructed to use the inhaler every 2-4 hours [id number] for the next 2 to 3 days and then every 4-6 hours. She was informed that she may be ill for another 3 to 5 days. Discharge Plan Triage Chief Complaint: Cold Sx ED Provider: Alli Ding Dx/Rx/DC Orders Clinical Impression: Influenza A, Acute bronchospasm Instructions: ED Influenza (Adult) Prescriptions: New prednisone 20 mg tablet 60 mg PO DAILY Qty: 15 0RF No Action multivitamin 1 tablet PO DAILY vitamin E (dl, acetate) 400 UNITS capsule 400 units PO DAILY docusate sodium [Stool Softener] 100 mg capsule 100 mg PO DAILY PRN (Reason: constipation) Patient Comments: Over the counter estradiol [Marge] 0.1 mg/24 hr patch semiweekly 1 patch topical SUWE fluvoxamine 100 mg tablet 100 mg PO DAILY albuterol sulfate 90 mcg/actuation HFA aerosol inhaler 2 inh INHALATION Q4H PRN (Reason: shortness of breath or wheezing) Patient Comments: [NO ORIGINAL SIG] cholecalciferol (vitamin D3) [D3 DOTS] 50 mcg (2,000 unit) tablet 50 mcg PO DAILY Primary Care Provider: Tiffany Sanders Referrals: Tiffany Sanders MD [Primary Care Provider] - Activity Restrictions/Additional Instructions: 1. Recommend 2 to 4 puffs of albuterol inhaler every 2-4 hours while awake [id number] for the next 2 to 3 days. Then every 4-6 hours as needed for wheezing/rattling in your chest 2. Take prednisone until gone Print Language: Cape Verdean Disposition Disposition: Home, Self Care
[2024-03-31 07:36] VITALS: PULSE 64; RESP 17
[2024-03-31] MEDS: Albuterol 2.5 MG/3 ML VIAL.NEB. INHALATION (07:36)
[2024-03-31 08:01] VITALS: BP 137/82; PULSE 73; RESP 16; TEMP 36.7; O2SAT 97
== END 2024-03-31 08:02 | disposition home or self-care (01) ==
PROVIDERS: Emergency Provider Emergency Medicine; PCP Internal Medicine; Visit Provider Emergency Medicine
DX: J10.1 Influenza due to other identified influenza virus with other respiratory manifestations (principal); J98.01 Acute bronchospasm; F32.A Depression, unspecified; F41.9 Anxiety disorder, unspecified; K75.81 Nonalcoholic steatohepatitis (NASH); Z79.899 Other long term (current) drug therapy
CPT/HCPCS: 71046; 94640; 99282

== ENCOUNTER 2024-04-03 09:49 | Emergency (ER) | payer BC, SELFPAY ==
[2024-04-03 09:49] VITALS: BP 122/67; PULSE 74; RESP 20; TEMP 36.4; O2SAT 100; BMI 28.8
--- NOTE | 2024-04-03 10:35 | EKG12_ITS ---
Test Reason : TIGHTNESS/PAIN IN RIGHT CHEST Blood Pressure : */* mmHG Vent. Rate : 59 BPM Atrial Rate : 59 BPM P-R Int : 120 ms QRS Dur : 76 ms QT Int : 420 ms P-R-T Axes : 49 60 82 degrees QTcB Int : 415 ms Sinus bradycardia Otherwise normal ECG Confirmed by Jez Foster ([id number]), publications editor LAVERNE VIVEROS ([id number]) on 04/04/2024 10:25:10 AM Referred By: COLE Confirmed By: Jez Foster
--- NOTE | 2024-04-03 10:35 | EX.ED.DYSGE1 ---
HPI History of Present Illness Chief Complaint: Chest Other Informant: patient Associated Symptoms Associated Symptoms ED: cough Narrative Narrative: Patient has been ill for about 9 or 10 days. She was seen here in the ER for this respiratory illness and diagnosed with influenza A. She was having lots of chest tightness and some mild dyspnea so she was prescribed prednisone and feels like it is not helping anything. She is sometimes waking up in the middle of the night gasping for air and she has checked her pulse ox and at 1 point was 80% on room air but taking deep breaths resolve that. She admits that this is not new and this has happened in the past before this illness, but when she checked her pulse ox she usually was in the low 90% range. She states for the most part now, she has persistent chest tightness and points to her sternum, that gets better with heating pad and pushing on it, but not with albuterol inhaler/nebulizer, but she is not dyspneic when she is not coughing. She has a lot of chest congestion. She feels like she crackles when she takes breaths. She does have some mild dyspnea with exertion. No leg pain or swelling. No pleuritic discomfort. [facility] Medical History COELHO (nonalcoholic steatohepatitis) Osteopenia Obesity (BMI 30.0-34.9) Abdominal pain Chronic diarrhea Preventative health care Depression Anxiety Cervical radiculopathy Hyperglycemia Encounter for vitamin deficiency screening Chronic neck pain Hypersomnolence Screening for thyroid disorder Health care maintenance Congestion of left ear Post-nasal drip Urinary frequency Nonrheumatic mitral (valve) prolapse Non-alcoholic fatty liver disease Suicide ideation Anxiety and depression Heart valve disorder Vitamin deficiency Vision problems Hormone deficiency Frequent headaches H/O emotional problems UTI (urinary tract infection) Seasonal allergies Home Medications ?Medication ?Instructions ?Recorded ?Last Taken ?Type multivitamin 1 tablet PO DAILY 02/16/19 Unknown History vitamin E (dl, acetate) 180 mg 400 units PO DAILY 03/26/20 Unknown History (400 unit) capsule docusate sodium 100 mg capsule 100 mg PO DAILY PRN constipation 12/11/23 Unknown History (Stool Softener) albuterol sulfate 90 mcg/actuation 2 inh inhalation Q4H PRN shortness 03/31/24 Unknown History aerosol inhaler of breath or wheezing cholecalciferol (vitamin D3) 50 50 mcg PO DAILY 03/31/24 Unknown History mcg (2,000 unit) tablet (D3 DOTS) estradiol 0.1 mg/24 hr semiweekly 1 patch topical SUWE 03/31/24 Unknown History transdermal patch (Marge) fluvoxamine 100 mg tablet 100 mg PO DAILY 03/31/24 Unknown History prednisone 20 mg tablet 60 mg (3 x 20 mg) PO DAILY #15 03/31/24 Unknown Rx TABLETS Allergy/AdvReac Type Severity Reaction Status Date / Time No Known Allergies Allergy Verified 03/31/24 06:26 Family History Brother Anxiety Hypertension Sister Anxiety Hypertension Uncle Anxiety Myocardial infarction Aunt Anxiety Grandmother Breast cancer Grandfather Myocardial infarction Father Hypertension Surgical History History of hysterectomy Hx of local excision of skin lesion History of bone marrow biopsy Social History Smoking Status: Never smoker alcohol intake: never substance use type: does not use caffeine: Yes Type: tea Number of servings: 1 ROS ROS ED Constitutional Constitutional ED: Reports body ache(s), chills, fatigue, fever(s), headache(s) and malaise Eyes Eyes: Denies change in vision or diplopia ENT ENT ED: Denies rhinorrhea or sore throat Cardiovascular Cardiovascular: Reports palpitations and paroxysmal nocturnal dyspnea; Denies orthopnea or radiating jaw, neck or arm pain Respiratory/Chest Respiratory/Chest: Reports chest tightness, cough, dyspnea, dyspnea on exertion and paroxysmal nocturnal dyspnea; Denies orthopnea Gastrointestinal Gastrointestinal: Reports diarrhea; Denies abdominal pain, nausea or vomiting Genitourinary Genitourinary ED: Denies dysuria or hematuria Musculoskeletal Musculoskeletal: Reports back pain; Denies neck pain Integumentary Denies abscess or rash Neurologic Neurologic: Reports headache(s); Denies paresthesias or weakness EXAM Physical Exam Const Vital Signs: 04/03/24 09:49 04/03/24 10:35 04/03/24 10:35 Temperature 97.5 F L Temperature Source Temporal Pulse Rate 74 Respiratory Rate 20 H Respiratory Effort Normal Non-Labored Blood Pressure 122/67 H Blood Pressure Mean 85 Pulse Ox 100 Oxygen Delivery Method Room Air Room Air Positive well nourished and well developed Constitutional Narrative: Well-appearing, no distress General Appearance ED: well developed and NAD HEENT Reports moist mucous membranes normocephalic and atraumatic Eyes PERRL and EOMs intact bilaterally Neck full ROM and supple Resp normal respiratory effort and clear to auscultation bilaterally Resp Narrative: Conversive in full sentences. Cardio regular rate, regular rhythm and no murmurs Rate: Negative for tachycardic GI non-tender and non-distended Auscultation: normoactive bowel sounds Palpation: soft Back/Spine General Back: other FROM Extremity normal to inspection and no calf tenderness General Extremety ED: Negative for edema, pulses abnormal or tenderness General Extremity: Negative for edema or pulses abnormal Neuro oriented x3, CN's II-XII intact bilaterally and no sensory deficits noted Sensorium / Orientation: awake and alert Motor Exam: strength 5/5 throughout Skin no rashes or lesions noted and no wounds MDM MDM MDM Narrative Medical decision making narrative: Performed an EKG and troponin to rule out cardiac etiology of her chest discomfort, those are normal in my interpretation, and two-view chest x-ray is also normal on my interpretation, ruling out pneumonia; radiology in agreement. Furthermore based on her lack of response to albuterol, I feel most of her symptoms are not pulmonary/lung in nature more likely bronchial. Additionally do not think this is due to pulmonary embolus especially without tachycardia or hypoxemia, her pulse ox is 99% on room air. With regards to her paroxysmal nocturnal dyspnea, she may have obstructive sleep apnea, which would be unrelated to her current illness; we discussed follow-up for that. Lab Data Attestation: I reviewed the patient's lab results. Labs: Laboratory Results - last 24 hr 04/03/24 04/03/24 04/03/24 10:43 10:43 11:04 WBC Cancelled 3.6 L Corrected WBC Cancelled RBC Cancelled 3.79 L Hgb Cancelled 12.7 Hct Cancelled 36.7 L MCV Cancelled 96.8 MCH Cancelled 33.5 H MCHC Cancelled 34.6 RDW Std Deviation Cancelled 50.6 H RDW Coeff of Kristy Cancelled 14.3 Plt Count Cancelled 132 L MPV Cancelled 9.9 Immature Gran % (Auto) Cancelled 0.800 Neut % (Auto) Cancelled 82.7 H Lymph % (Auto) Cancelled 10.7 L O'Brien % (Auto) Cancelled 5.5 Eos % (Auto) Cancelled 0.0 Baso % (Auto) Cancelled 0.3 Absolute Neuts (auto) Cancelled 3.0 Absolute Lymphs (auto) Cancelled 0.39 L Total Counted Cancelled Neutrophils % (Manual) Cancelled Band Neutrophils % Cancelled Lymphocytes % (Manual) Cancelled Monocytes % (Manual) Cancelled Eosinophils % (Manual) Cancelled Basophils % (Manual) Cancelled Metamyelocytes % Cancelled Myelocytes % Cancelled Promyelocytes % Cancelled Blast Cells % Cancelled Plasma Cell % (Manual) Cancelled Other Cells % Cancelled Nucleated RBC % Cancelled 0 Nucleated RBCs/100 WBC Cancelled Differential Comment Cancelled Diff Path Review Cancelled Hypersegmented Neuts Cancelled Atypical Lymphocytes Cancelled Reactive Lymphocytes Cancelled Smudge Cells Cancelled Toxic Granulation Cancelled Toxic Vacuolation Cancelled Dohle Bodies Cancelled Michael Rods Cancelled Platelet Estimate Cancelled Plt Morphology Comment Cancelled RBC Morphology Cancelled Cancelled Polychromasia Cancelled Hypochromasia Cancelled Basophilic Stippling Cancelled Anisocytosis Cancelled Microcytosis Cancelled Macrocytosis Cancelled Spherocytes Cancelled Sickle Cells Cancelled Target Cells Cancelled Tear Drop Cells Cancelled Ovalocytes Cancelled Stomatocytes Cancelled Thompson-Offerman Bodies Cancelled Capac Cells Cancelled Bite Cells Cancelled Crenated Cell Cancelled Acanthocytes (Spur) Cancelled Rouleaux Cancelled Schistocytes Cancelled Sodium 138 Potassium 4.7 Chloride 109 H Carbon Dioxide 21.0 Anion Gap 8 BUN 12 Creatinine 0.90 Estim Creat Clear Calc 69.39 Est GFR (MDRD) Af Amer 90 Est GFR (MDRD) Non-Af 74 BUN/Creatinine Ratio 13.4 Glucose 142 H Calcium 9.4 Troponin I High Sens 4 Radiography Diagnostic Testing: Clinical Impression(s) from Imaging Studies Chest X-Ray 04/03/24 11:05 IMPRESSION: No radiographic evidence of acute cardiopulmonary disease Reading Location: [facility] Rhythm Strip Rhythm Strip: Sinus Rhythm Rate: 59 Ectopy: None EKG Initial EKG: Attestation: I personally reviewed and interpreted this EKG as follows: Interpretation: Sinus Rhythm and No Acute Injury Pattern Comments: Nml axis & intervals; nml EKG Discharge Plan Triage Chief Complaint: Chest Other ED Provider: Willy Burt Dx/Rx/DC Orders Clinical Impression: Influenzal bronchitis, Acute bronchospasm, Chest tightness Instructions: ED Bronchospasm (Adult), ED Bronchitis, No Antibiotic (Adult) Prescriptions: No Action multivitamin 1 tablet PO DAILY vitamin E (dl, acetate) 400 UNITS capsule 400 units PO DAILY docusate sodium [Stool Softener] 100 mg capsule 100 mg PO DAILY PRN (Reason: constipation) Patient Comments: Over the counter estradiol [Marge] 0.1 mg/24 hr patch semiweekly 1 patch topical SUWE fluvoxamine 100 mg tablet 100 mg PO DAILY albuterol sulfate 90 mcg/actuation HFA aerosol inhaler 2 inh INHALATION Q4H PRN (Reason: shortness of breath or wheezing) Patient Comments: [NO ORIGINAL SIG] cholecalciferol (vitamin D3) [D3 DOTS] 50 mcg (2,000 unit) tablet 50 mcg PO DAILY prednisone 20 mg tablet 60 mg PO DAILY Qty: 15 0RF Primary Care Provider: Tiffany Sanders Referrals: Tiffany Sanders MD [Primary Care Provider] - 1 Week if not improving Print Language: Icelandic Disposition Disposition: Home, Self Care
--- NOTE | 2024-04-03 11:05 | RAD_ITS ---
PROCEDURE: CHEST PA AND LATERAL REASON FOR EXAM: Chest tightness, congestion TECHNIQUE: Frontal and lateral views of the chest. COMPARISON: None. 03/31/24 FINDINGS: The heart size is normal. The mediastinal contour is unremarkable. The lungs are clear. The bones are unremarkable. RAD/Chest PA and Lateral IMPRESSION: No radiographic evidence of acute cardiopulmonary disease Reading Location: [facility]
[2024-04-03 11:14] LABS: Absolute Lymphocyte Count 0.39 X10^3/uL (0.83-4.51); Basophil# 0.01 X10^3/uL; Basophil% 0.3 % (0-1); Hematocrit 36.7 % (37-47); Hemoglobin 12.7 g/dL (12.0-15.0); Lymphocyte # 0.39 X10^3/ul (0.83-4.51); Lymphocyte % 10.7 % (19-41); Mean Corp Hgb Conc 34.6 g/dL (32-36); Mean Corpuscular Hgb 33.5 pg (27.0-32.0); Mean Corpuscular Volume 96.8 fL (81-99); Mean Platelet Vol. 9.9 fl (6.2-12.0); Monocyte% 5.5 % (0-10); NRBC Flagged by Analyzer 0 % (0-5); Neutrophil % 82.7 % (47-70); POSITIVE DIFFERENTIAL YES; Platelet Count 132 K/mm3 (150-450); RBC Distribution Width CV 14.3 % (11.6-14.6); RBC Distribution Width SD 50.6 fl (35.1-43.9); Red Blood Count 3.79 M/mm3 (4.2-5.4); White Blood Count 3.6 K/mm3 (4.4-11.0)
[2024-04-03 11:16] LABS: Anion Gap 8 (5-15); BUN 12 mg/dL (7-18); BUN/Creat Ratio 13.4 RATIO (10-20); Calcium,Total 9.4 mg/dL (8.5-10.1); Chloride 109 mmol/L (98-107); EST Glomerular Filtration Rate 74 mL/min (>60); Est Glom Filt Rate - Afr Amer 90 mL/min (>60); Estimated Creatinine Clearance 69.39 ml/min; Glucose 142 mg/dL (74-106); Potassium 4.7 mmol/L (3.5-5.1); Sodium Level 138 mmol/L (136-145); Troponin-I HS 4 pg/mL (3.0-54.0)
[2024-04-03 11:56] VITALS: BP 124/68; PULSE 52; RESP 16; TEMP 36.6; O2SAT 99
== END 2024-04-03 11:57 | disposition home or self-care (01) ==
PROVIDERS: Emergency Provider Emergency Medicine; PCP Internal Medicine; Visit Provider Emergency Medicine
DX: J10.1 Influenza due to other identified influenza virus with other respiratory manifestations (principal); J20.9 Acute bronchitis, unspecified; R07.89 Other chest pain; F32.A Depression, unspecified; F41.9 Anxiety disorder, unspecified; Z79.899 Other long term (current) drug therapy
CPT/HCPCS: 71046; 80048; 84484; 85025; 93005; 99284; A4216

== ENCOUNTER → 2024-04-04 | Outpatient (CLI) | payer BC, SELFPAY ==
[2024-04-04 13:29] LABS: Thyroid Stim Hormone (TSH) 0.705 uIU/mL (0.358-3.740)
== END | disposition home or self-care (01) ==
LOC: BIMLAB 10:15
PROVIDERS: PCP Internal Medicine; Referring Provider Internal Medicine; Visit Provider Internal Medicine
DX: Z13.29 Encounter for screening for other suspected endocrine disorder (principal)
CPT/HCPCS: 36415; 84439; 84443

== ENCOUNTER → 2024-04-22 | Outpatient (CLI) | payer BC, SELFPAY | END | disposition home or self-care (01) | PROVIDERS: PCP Internal Medicine; Referring Provider Internal Medicine; Visit Provider Internal Medicine | DX: G47.10 Hypersomnia, unspecified (principal) | CPT/HCPCS: 95810 ==

== ENCOUNTER → 2024-04-27 | Outpatient (CLI) | payer BC, SELFPAY ==
[2024-04-27 09:30] LABS: Bacteria 0 SEEN /hpf (None Seen); Mucous, Urine 0 SEEN /hpf (<or=2+); White Blood Cells 0 SEEN /hpf (0-5)
[2024-04-27 12:18] LABS: Color, Urine Yellow (Yellow); Glucose, Dipstick Normal (Normal); Ketone-Dipstick Negative (Negative); Leukocyte Esterase-Dipstick 25 /ul (Negative); Nitrite-Dipstick Negative (Negative); Occult Blood-Urine 10 /ul (Negative); Protein-Dipstick 15 mg/dl (Negative); Urine Bilirubin Dipstick Negative (Negative); Urine Clarity Clear (Clear); Urine Urobilinogen Normal (Normal)
[2024-04-27 12:36] LABS: Red Blood Cells-Urine 0 SEEN /hpf (0-5); Squamous Epithelial Cells - UA 0-5 SEEN /hpf (5-10)
== END | disposition home or self-care (01) ==
PROVIDERS: PCP Internal Medicine; Referring Provider Internal Medicine; Visit Provider Internal Medicine
DX: R30.0 Dysuria (principal)
CPT/HCPCS: 81001

== ENCOUNTER → 2024-06-27 | Outpatient (CLI) | payer BC, SELFPAY ==
--- NOTE | 2024-06-27 09:39 | US_ITS ---
PROCEDURE: ABD LIMITED W/ ELASTOGRAPHY REASON FOR EXAM: FATTY LIVER COMPARISON: Prior study dated January 12, 2024. TECHNIQUE: Right upper quadrant abdominal ultrasound. Misa ElastQ Imaging shear wave elastography for non-invasive assessment of liver tissue stiffness. Misa EPIQ Elite. FINDINGS: LIVER: Size: Unremarkable Length: 14.1 cm Echotexture: Diffusely echogenic suggesting fatty infiltration Contour: Normal Lesions: None identified Elastography: EQI Med: 6.8 kPa EQI Med Benjamin: 1.5 m/s IQR/Med: 7.5 %* GALLBLADDER: Normal COMMON BILE DUCT: Dilated measuring up to 8.8 mm . PANCREAS: Normal Visualized portions of the right kidney are unremarkable. No right upper quadrant ascites. US/ABD Limited w/ Elastography IMPRESSION: [id number] HEPATIC FIBROSIS Reference Values: SRU <1.37 m/s (5.7kPa): No to mild fibrosis 1.37 m/s - 2.2 m/s: Moderate to severe fibrosis >2.2 m/s (15kPa): Significant fibrosis / cirrhosis METAVIR Score F2 or higher: 1.34 m/s (5.7kPa) F3 or higher: 1.55 m/s (7.3kPa) F4: 1.80 m/s (10kPa) * If the IQR/Med is >30%, the variance in the measurements is a large and the a ccuracy of the measurement may be in question. Reading Location: [place] [id number]
== END | disposition home or self-care (01) ==
LOC: US 09:35
PROVIDERS: PCP Internal Medicine; Referring Provider Internal Medicine Gastroenterology; Visit Provider Internal Medicine Gastroenterology
DX: K76.0 Fatty (change of) liver, not elsewhere classified (principal)
CPT/HCPCS: 76705; 76981

== ENCOUNTER → 2024-06-30 | Outpatient (CLI) | payer BC, SELFPAY ==
[2024-06-30 08:16] LABS: Absolute Lymphocyte Count 0.63 X10^3/uL (0.83-4.51); Absolute Neutrophil Count 1.8 X10^3/uL (2.0-7.7); Basophil# 0.02 X10^3/uL; Basophil% 0.7 % (0-1); Eosinophils% 3.4 % (0-5); Hematocrit 39.9 % (37-47); Hemoglobin 13.8 g/dL (12.0-15.0); Lymphocyte # 0.63 X10^3/ul (0.83-4.51); Lymphocyte % 21.4 % (19-41); Mean Corp Hgb Conc 34.6 g/dL (32-36); Mean Corpuscular Hgb 34.9 pg (27.0-32.0); Mean Platelet Vol. 10.4 fl (6.2-12.0); Monocyte# 0.38 X10^3/uL; Monocyte% 12.9 % (0-10); NRBC Flagged by Analyzer 0 % (0-5); Neutrophil # 1.81 X10^3/uL (2.7-7.7); Neutrophil % 61.3 % (47-70); Platelet Count 170 K/mm3 (150-450); RBC Distribution Width CV 13.3 % (11.6-14.6); RBC Distribution Width SD 49.8 fl (35.1-43.9); Red Blood Count 3.95 M/mm3 (4.2-5.4)
[2024-06-30 11:32] LABS: Hepatitis B Surface Antibody REAC
[2024-06-30 11:46] LABS: Anion Gap 12 (5-15); BUN 16 mg/dL (4-19); Calcium,Total 9.4 mg/dL (7.6-11.0); Carbon Dioxide 25.4 mmol/L (21.0-32.0); Chloride 102 mmol/L (98-108); Creatinine, Serum 0.87 mg/dL (0.70-1.20); EST Glomerular Filtration Rate 87 (>60); Ferritin 176 ng/mL (22-378); Glucose 100 mg/dL (70-99); Hepatitis B Surface Antigen Nonreactive (Nonreactive); Hepatitis C Antibody Nonreactive (Nonreactive); Iron 172 ug/dL (50-170); Iron Binding Capacity,Total 359 ug/dL (250-450); Iron Binding Capacity,Unsat 187 ug/dL (228-428); Potassium 4.2 mmol/L (3.3-5.1); Sodium Level 139 mmol/L (133-145)
[2024-06-30 12:54] LABS: Hemoglobin A1c 5.2 % (<=5.6)
[2024-06-30 13:46] LABS: Cholesterol 214 mg/dL (<=200); High Density Lipoprotein 73 mg/dL; Low Density Lipoprotein Calc. 121 mg/dL; Triglycerides 101 mg/dL; Very Low Density Lipoprotein 20 mg/dL (5-40); cholesterol:hdl ratio screen 2.95
[2024-07-01 14:08] LABS: Anti-Mitochondrial AB <20.0 Units (0.0-20.0)
[2024-07-01 15:08] LABS: Anti-Smooth Muscle ABS 5 Units (0-19); Cytoplasmic Ab (C-ANCA) <1:20 titer (Neg:<1:20); Hepatitis A AB, Total Negative (Negative); Hepatitis B Core Ab Total Negative (Negative); Perinuclear Ab (P-ANCA) <1:20 titer (Neg:<1:20)
== END | disposition home or self-care (01) ==
LOC: PAVLAB 07:55
PROVIDERS: PCP Internal Medicine; Referring Provider Nurse Practitioner Acute Care; Visit Provider Nurse Practitioner Acute Care
DX: K83.8 Other specified diseases of biliary tract (principal); R74.01 Elevation of levels of liver transaminase levels; K75.81 Nonalcoholic steatohepatitis (NASH); R74.8 Abnormal levels of other serum enzymes
CPT/HCPCS: 36415; 80048; 80061; 82728; 83036; 83516; 83540; 83550; 85025; 86037; 86704; 86706; 86708; 86803; 87340

== ENCOUNTER → 2024-07-14 | Outpatient (CLI) | payer BC, SELFPAY ==
[2024-07-14 10:15] LABS: AST(SGOT) 38 U/L (<=31); Alanine Aminotransfer ALT/SGPT 61 U/L (<=34); Albumin, Serum 4.6 g/dL (3.5-5.0); Alkaline Phosphatase 100 U/L (35-104); Bilirubin, Direct 0.15 mg/dL (0.00-0.30); Globulin 2.3 g/dL (2.2-4.2); Iron 119 ug/dL (50-170); Iron Binding Capacity,Total 347 ug/dL (250-450); Iron Binding Capacity,Unsat 228 ug/dL (228-428); Magnesium 2.1 mg/dL (1.5-2.2); Protein, Total 6.9 g/dL (5.9-8.4); Total Bilirubin 0.34 mg/dL (0.00-1.30); Vitamin B12 879 pg/mL (180-914)
[2024-07-15 04:07] LABS: GGTP 103 IU/L (0-60)
== END | disposition home or self-care (01) ==
PROVIDERS: PCP Internal Medicine; Referring Provider Nurse Practitioner Acute Care; Visit Provider Nurse Practitioner Acute Care
DX: R74.8 Abnormal levels of other serum enzymes (principal); R74.01 Elevation of levels of liver transaminase levels; K83.8 Other specified diseases of biliary tract; K75.81 Nonalcoholic steatohepatitis (NASH)
CPT/HCPCS: 36415; 80076; 82607; 82977; 83540; 83550; 83735

== ENCOUNTER 2024-09-03 14:55 | Emergency (ER) | payer BC, SELFPAY ==
[2024-09-03 14:55] VITALS: BP 113/65; PULSE 63; RESP 20; TEMP 36.7; O2SAT 98
--- NOTE | 2024-09-03 15:13 | EDS_ITS ---
<Statement entered by Noe Schroeder DO - 09/03/24 17:45> Patient was seen and examined with physician physician's assistant Prachi All components of the history and physical confirmed and agreed. History of present illness and physical exam: Patient is a 38-year-old female with a past medical history of NICA, VALERA, osteopenia, anxiety, hyperglycemia, anxiety, depression, hormone deficiency who presents to the emergency department with a chief complaint of stepping on a [place] nail with her right foot. States that she was wearing crocs and the nail went through her croc penetrated her foot. She states that her last tetanus shot was within the last 5 years denies any blood thinner medications. Review of systems: Agreed above Physical exam: Agree with above MDM Patient is a 38-year-old female who presented to the emergency department with a chief complaint of right foot pain after stepping on a [place] nail this afternoon. On the differential diagnosis includes but not limited to puncture wound, retained foreign body. Once workup is obtained reviewed she will be reevaluated. Patient x-ray reviewed by myself by radiology showed no evidence of retained foreign body no other fractures or dislocations noted. Discussed results with the patient and she would like a tetanus shot given her medical history therefore this was updated. She will be placed on oral ciproflo xacin. She was advised to keep a close eye on this and follow-up with her doctor in outpatient setting. She was agreeable to plan all question concerns answered she was discharged home in stable condition. Patient was vies return with worsening symptoms or concerns. Final impression: Right foot puncture wound History of Valera History of anxiety History of depression Disposition: Patient will be home in in stable condition Supervising attending attestation: Noe Schroeder D.O. [facility] History of Present Illness Chief Complaint: Lower Extremity Injury Narrative Narrative: Patient presenting today with pain to the plantar aspect of her right foot after stepping on a [place] nail this afternoon. She was wearing crocs and the nail penetrated her shoe into her foot, it did not get stuck in her foot. Her tetanus is up-to-date. She is on no blood thinners. She is able to ambulate but reports a lot of tenderness to the area. [facility] Medical History NICA (obstructive sleep apnea) Costochondritis VALERA (nonalcoholic steatohepatitis) Osteopenia Obesity (BMI 30.0-34.9) Abdominal pain Chronic diarrhea Preventative health care Depression Anxiety Cervical radiculopathy Hyperglycemia Encounter for vitamin deficiency screening Chronic neck pain Hypersomnolence Screening for thyroid disorder Health care maintenance Congestion of left ear Post-nasal drip Urinary frequency Nonrheumatic mitral (valve) prolapse Non-alcoholic fatty liver disease Suicide ideation Anxiety and depression Heart valve disorder Vitamin deficiency Vision problems Hormone deficiency Frequent headaches H/O emotional problems UTI (urinary tract infection) Seasonal allergies Home Medications ?Medication ?Instructions ?Recorded ?Last Taken ?Type multivitamin 1 tablet PO DAILY 02/16/19 U nknown History vitamin E (dl, acetate) 180 mg 400 units PO DAILY 03/12 06/29 Unknown History (400 unit) capsule docusate sodium 100 mg capsule 100 mg PO DAILY PRN con stipation 12/11/23 Unknown History (Stool Softener) albuterol sulfate 90 mcg/actuation 2 inh inhalation Q4 H PRN shortness 03/31/24 Unknown History aerosol inhaler of breath or wheezing cholecalciferol (vitamin D3) 50 50 mcg PO DAILY Unknown History mcg (2,000 unit) tablet (D3 DOTS) estradiol 0.1 mg/24 hr semiweekly 1 patch topical SUWE 03/31/24 Unknown History transdermal patch (Marge) fluvoxamine 100 mg tablet 100 mg PO DAILY 03/31/24 Unk nown History metronidazole 1 % topical gel topical Perioral detmati tis 04/25/24 Unknown History vitamin B complex 1 tab PO QDAY 04/27/24 Unkno wn History amoxicillin 875 mg tablet 875 mg PO BID #20 tabs 06/20 Unknown Rx rosuvastatin 10 mg tablet 5 mg (1/2 x 10 mg) PO DAILY 1 07/19/24 Unknown Rx month #30 tabs ciprofloxacin HCl 500 mg tablet 500 mg PO BID #7 TABLE TS 09/03/24 Unknown Rx Allergy/AdvReac Type Severity Reaction Status Date / Time No Known Allergies Allergy Verified 09/03/24 14:57 Family History Brother Anxiety Hypertension Sister Anxiety Hypertension Uncle Anxiety Myocardial infarction Aunt Anxiety Grandmother Breast cancer Grandfather Myocardial infarction Father Hypertension Surgical History History of hysterectomy Hx of local excision of skin lesion History of bone marrow biopsy Social History Smoking Status: Never smoker alcohol intake: never substance use type: does not use caffeine: Yes Type: tea Number of servings: 1 ROS ROS ED Constitutional Constitutional ED: Denies chills or fever(s) Cardiovascular Cardiovascular: Denies chest pain Respiratory/Chest Respiratory/Chest: Denies dyspnea Gastrointestinal Gastrointestinal: Denies abdominal pain Musculoskeletal Musculoskeletal: Reports arthralgias Integumentary Reports other Details: puncture wound Neurologic Neurologic: Denies paresthesias EXAM Physical Exam Const Vital Signs: 09/03/24 14:55 09/03/24 16:28 09/03/24 16:46 Temperature 98.1 F 98.1 F Temperature Source Oral Pulse Rate 63 63 50 L Respiratory Rate 20 H 20 H 16 Blood Pressure 113/65 113/65 127/61 H Blood Pressure Mean 81 81 83 Pulse Ox 98 98 99 Oxygen Delivery Method Room Air Positive well nourished, well developed and no apparent distress General Appearance ED: well developed HEENT Reports normocephalic and head/scalp atraumatic Mouth ED: Yes moist mucous membranes normal Eyes PERRL and EOMs intact bilaterally Neck full ROM and supple Chest Wall inspection of chest normal Resp normal respiratory effort and clear to auscultation bilaterally Cardio regular rate and regular rhythm GI soft to palpation, non-tender, non-distended and no masses Back/Spine normal ROM and normal to inspection Extremity full ROM Extremity Narrative: Puncture wound to the plantar aspect of the right midfoot, no active bleeding, right DP pulse 2+, good cap refill, sensation intact Neuro oriented x3, CN's II-XII intact bilaterally, moves all extremities, no focal motor deficits and no sensory deficits noted Sensorium / Orientation: awake and alert Psych mental status grossly normal and thought process normal Skin Skin Narrative: Aside from right foot wound, no other rashes or lesions noted. MDM MDM MDM Narrative Medical decision making narrative: Patient presenting today due to a puncture wound to the plantar aspect of her right midfoot after stepping on a [place] nail this afternoon. X-ray was obtained to assess for foreign body and is negative. Her tetanus is up-to-date. I will place her on a prophylactic dose of antibiotics and the area will be cleaned and bandaged. Return instructions were discussed with her, wound care instructions discussed. She is able to ambulate. She will be discharged home in stable condition. Radiography X-Ray: Read by ED Physician Diagnostic Testing: Clinical Impression(s) from Imaging Studies Foot X-Ray 09/03/24 15:15 IMPRESSION: No acute osseous abnormalities. Reading Location: [facility] Discharge Plan Triage Chief Complaint: Lower Extremity Injury ED Midlevel Provider: Zuleyka Lopez ED Provider: Noe Schroeder Dx/Rx/DC Orders Clinical Impression: Puncture wound of right foot Instructions: ED Puncture Wound (Foot) Prescriptions: New ciprofloxacin HCl 500 mg tablet 500 mg PO BID Qty: 7 0RF No Action multivitamin 1 tablet PO DAILY metronidazole 1 % gel topical vitamin B complex Tablet 1 tab PO QDAY Rx Instructions: pt reports she takes one B complex gummy per day, unsure on strength amoxicillin 875 mg tablet 875 mg PO BID Qty: 20 0RF rosuvastatin 10 mg tablet 5 mg PO DAILY 30 Days Qty: 30 4RF vitamin E (dl, acetate) 400 UNITS capsule 400 units PO DAILY docusate sodium [Stool Softener] 100 mg capsule 100 mg PO DAILY PRN (Reason: constipation) Patient Comments: Over the counter estradiol [Marge] 0.1 mg/24 hr patch semiweekly 1 patch topical SUWE fluvoxamine 100 mg tablet 100 mg PO DAILY albuterol sulfate 90 mcg/actuation HFA aerosol inhaler 2 inh INHALATION Q4H PRN (Reason: shortness of breath or wheezing) Patient Comments: [NO ORIGINAL SIG] cholecalciferol (vitamin D3) [D3 DOTS] 50 mcg (2,000 unit) tablet 50 mcg PO DAILY Primary Care Provider: Tiffany Sanders Referrals: Tiffany Sanders MD [Primary Care Provider] - 5-7 Days Activity Restrictions/Additional Instructions: Follow-up with your PCP and return for any signs of infection or if you have any other concerns. Print Language: Belgian Disposition Disposition: Home, Self Care Discharge Date/Time: 09/03/24 16:46
--- NOTE | 2024-09-03 15:15 | RAD_ITS ---
PROCEDURE: FOOT MIN 3 VIEWS 09/03/2024 REASON FOR EXAM: PAIN TECHNIQUE: FOOT MIN 3 VIEWS COMPARISON: None. FINDINGS: Bones: No acute bony abnormalities. Joints: No dislocations. Soft tissues: No soft tissue abnormalities. RAD/Foot min 3 Views IMPRESSION: No acute osseous abnormalities. Reading Location: [id number]
--- OUTSIDE RECORDS SUMMARY | 2024-09-03 15:17 | XMS RPT_ITS | CCD ---
Author Organization [facility] Care Team Providers Care Irrigation Equipment Remover Name Role Phone Required, No Pcp Unavailable Unavailable James Camacho Unavailable Unavailable Emily Sanders MD Primary Care Provider [phone] Dr. Emily Sanders Primary Care Provider [phone] Dr. Emily Sanders Referring Provider [phone] Dr. Gene Braun Attending Provider Dr. Emily Sanders Attending Provider [phone] Dr. Hi Sorensen Attending Provider 1(330) Emily Sanders MD Primary Care Provider 1(3 30) Dr. Emily Sanders Primary Care Provider 1(33 0) Dr. Emily Sanders Attending Provider [phone] Dr. Emily Sanders Referring Provider [phone] Dr. Mo Joaquin Attending Provider [phone] Emily Sanders MD Primary Care Provider [phone] Emily Sanders MD Primary Care Provider 1(3 30) Dr. Emily Sanders Primary Care Provider [phone] Dr. Emily Sanders Referring Provider [phone] Mat DREDGE PUMP OPERATOR, DREDGE PUMP OPERATOR-Alexandria Cooper Attending Provider ELIZABETH Watt Attending Provider ELIZABETH Quintero Attending Provider [phone] Dr. Emily Sanders Primary Care Provider 1(33 0) Dr. Emily Sanders Referring Provider [phone])2 ELIZABETH Quintero Attending Provider 1(330) Dr. Gene Braun Attending Provider Dr. Emily Sanders Attending Provider [phone] Marilyn MCGEE, Emily Ramsey Primary Care Provider 1(3 30) MARILYN, EMILY LEONE Primary Care Unav estefany ROSALESVALENTINE MCDONOUGH Attending Unavailable Marilyn MCGEE, Emily Leone Primary Care Prov ider Marilyn MCGEE, Dr. Allen Primary Care Provider Marilyn MCGEE, Dr. Allen Attending Provider [phone] Marilyn MCGEE, Dr. Allen Referring Provider 1(33 0) Keagan MCGEE, Dr. Bull Attending Provider Keagan MCGEE, Dr. Bull Referring Provider Chino MCGEE, Dr. Urrutia Attending Provider Chino MCGEE, Dr. Urrutia Referring Provider Chino MCGEE, Dr. Urrutia Other Provider Lon MCGEE, Dr. Robison Attending Provider Timur MCGEE, Dr. Carson Attending Provider Timur MCGEE, Dr. Carson Emergency Provider Cole MCGEE, Dr. Aguilera Emergency Provider Marilyn MCGEE, Dr. Allen Primary Care Provider Keagan MCGEE, Dr. Bull Attending Provider Keagan MCGEE, Dr. Bull Referring Provider Marilyn MCGEE, Dr. Allen Attending Provider [phone] Marilyn MCGEE, Dr. Efewongbe Referring Provider Chino MCGEE, Dr. Urrutia Attending Provider Chino MCGEE, Dr. Urrutia Referring Provider Chino MCGEE, Dr. Urrutia Other Provider Lon MCGEE, Dr. Robison Attending Provider Timur MCGEE, Dr. Carson Attending Provider Timur MCGEE, Dr. Carson Emergency Provider Cole MCGEE, Dr. Aguilera Attending Provider Cole MCGEE, Dr. Aguilera Emergency Provider Kade MCGEE, Dr. Mills Attending Provider NOT, DEFINED Referring Provider Unavailable BILLOW, LEE Attending Unavailable OLEGHE, EFEWONGBE B Primary Care Unavailable OLEGHE, EFEWONGBE B Primary Care Unavailable YENNIFER TOMAS Attending Unavailable OLEGHE, EFEWONGBE B Primary Care Unavailable YENNIFER TOMAS Attending Unavailable OLEGHE, EFEWONGBE B Primary Care Unavailable ADELINE JAMA Referring Unavailable OLEGHE, EFEWONGBE B Primary Care Unavailable OLEGHE, EFEWONGBE B Primary Care Unavailable BILLOW, LEE Admitting Unavailable OLEGHE, EFEWONGBE B Primary Care Unavailable BILLOW, LEE Attending Unavailable BILLOW, LEE Referring Unavailable OLEGHE, EFEWONGBE B Primary Care Unavailable LEO BARNETT Referring Unavail able BILLRL, LEE Attending Unavailable OLEGHE, EFEWONGBE B Primary Care Unavailable OLEGHE, EFEWONGBE B Primary Care Unavailable NELONDONT LEO MONROE Attending Unavail able OLEGHE, EFEWONGBE B Primary Care Unavailable NG, SHERLY Referring Unavailable OLEGHE, EFEWONGBE B Primary Care Unavailable NG, SHERLY Attending Unavailable NG, SHERLY Referring Unavailable OLEGHE, EFEWONGBE B Primary Care Unavailable LEO BARNETT Attending Unavail able Marilyn MCGEE, Dr. Allen Primary Care Provider Keagan MCGEE, Dr. Bull Attending Provider Keagan MCGEE, Dr. Bull Referring Provider Marilyn MCGEE, Dr. Allen Attending Provider [phone] Marilyn MCGEE, Dr. Allen Referring Provider [phone] Adi Coleman Attending Provider Ervin DREDGE PUMP OPERATOR-CVonda Attending Provider Ervin DREDGE PUMP OPERATOR-CVonda Referring Provider MARILYN MCGEE, EMILY Ramsey Primary Care [phone] MARILYN MCGEE, EMILY Ramsey Primary Care Unavailab VONDA DAVISON Attending Maya Jules MD, Dr. Gaffney Attending Provider Marilyn MCGEE, Dr. Allen Primary Care Provider Keagan MCGEE, Dr. Bull Attending Provider Keagan MCGEE, Dr. Bull Referring Provider Kade MCGEE, Dr. Mills Attending Provider NOT, DEFINED Referring Provider Unavailable Oleghe, Efewongbe Referring Unavailable Oleghe, Efewongbe Primary Care Unavailable Oleghe, Efewongbe Attending Unavailable Oleghe, Efewongbe Referring Unavailable Gene Braun Attending Unavailable Oleghe, Efewongbe Primary Care Unavailable Jorgito Boogie Referring Unavailable Jorgito Boogie Attending Unavailable Oleghe, Efewongbe Primary Care Unavailable Oleghe, Efewongbe Referring Unavailable Oleghe, Efewongbe Primary Care Unavailable Oleghe, Efewongbe Attending Unavailable Adi Coleman Attending Unavailable Oleghe, Efewongbe Referring Unavailable Oleghe, Efewongbe Primary Care Unavailable Willy Burt Attending Unavailable Oleghe, Efewongbe Primary Care Unavailable Oleghe, Efewongbe Referring Unavailable Oleghe, Efewongbe Attending Unavailable Oleghe, Efewongbe Primary Care Unavailable Oleghe, Efewongbe Referring Unavailable Oleghe, Efewongbe Primary Care Unavailable Oleghe, Efewongbe Attending Unavailable Cheli Boogieent Attending Unavailable Jabour, Vincent Referring Unavailable Oleghe, Efewongbe Primary Care Unavailable Oleghe, Efewongbe Referring Unavailable Oleghe, Efewongbe Attending Unavailable Oleghe, Efewongbe Primary Care Unavailable Oleghe, Efewongbe Referring Unavailable Oleghe, Efewongbe Attending Unavailable Oleghe, Efewongbe Primary Care Unavailable Zenonbour, Jorgito Attending Unavailable Jabour, Vincent Referring Unavailable Oleghe, Efewongbe Primary Care Unavailable Jenni Mata Attending Unavailable Oleghe, Efewongbe Referring Unavailable Oleghe, Efewongbe Primary Care Unavailable Oleghe, Efewongbe Referring Unavailable Oleghe, Efewongbe Primary Care Unavailable Oleghe, Efewongbe Attending Unavailable Oleghe, Efewongbe Referring Unavailable Oleghe, Efewongbe Attending Unavailable Oleghe, Efewongbe Primary Care Unavailable Adi Coleman Attending Unavailable Oleghe, Efewongbe Referring Unavailable Oleghe, Efewongbe Primary Care Unavailable Oleghe, Efewongbe Primary Care Unavailable Alli Ding Attending Unavailable NOT, DEFINED Referring Unavailable Gene Braun Attending Unavailable Oleghe, Efewongbe Primary Care Unavailable ChinoAsifd Attending Unavailable Chino, Ghada Referring Unavailable Oleghe, Efewongbe Primary Care Unavailable Oleghe, Efewongbe Primary Care Unavailable Jabour, Chelient Referring Unavailable Jabour, Chelient Attending Unavailable Adi Coleman Attending Unavailable Oleghe, Efewongbe Primary Care Unavailable Adi Coleman Referring Unavailable Oleghe, Efewongbe Referring Unavailable Oleghe, Efewongbe Primary Care Unavailable Oleghe, Efewongbe Attending Unavailable Jabour, Vincent Referring Unavailable Jabour, Jorgito Attending Unavailable Oleghe, Efewongbe Primary Care Unavailable Vonda Mueller Attending Unavailable Ervin, Vonda Referring Unavailable Oleghe, Efewongbe Primary Care Unavailable ErvinVonda Attending Unavailable Ervin, Vonda Referring Unavailable Oleghe, Efewongbe Primary Care Unavailable Chino, Ghada Consulting Unavailable Chino, Ghada Referring Unavailable Oleghe, Efewongbe Primary Care Unavailable Ricki Forrest Attending Unavailable Oleghe, Efewongbe Referring Unavailable Oleghe, Efewongbe Attending Unavailable Oleghe, Efewongbe Primary Care Unavailable Oleghe, Efewongbe Referring Unavailable Adi Coleman Attending Unavailable Oleghe, Efewongbe Primary Care Unavailable Vonda Mueller Attending Unavailable Oleghe, Efewongbe Referring Unavailable Oleghe, Efewongbe Referring Unavailable Gulshan Jules Attending Unavailable Oleghe, Efewongbe Primary Care Unavailable Oleghe, Efewongbe Referring Unavailable Gene Braun Attending Unavailable Oleghe, Efewongbe Primary Care Unavailable Ghada Magana Attending Unavailable Oleghe, Efewongbe Referring Unavailable Oleghe, Efewongbe Primary Care Unavailable Oleghe, Efewongbe Referring Unavailable Gene Braun Attending Unavailable Oleghe, Efewongbe Primary Care Unavailable Medications Current Medications Medication Drug Class(es) Dates Sig (Normalized) Sig (Original) [id number] 200 actuat albuterol 0.09 mg/actuat metered dose inhaler (20 sources) beta2-Adrenergic Agonist Start: 03-31-2024 Albuterol Sulfate 90 mcg/actuation HFA aerosol inhaler Active 2 NMA INHALATION Q4H as needed for shortness of breath or wheezing March 31, 2024 1:00am Start: 03-29-2024 End: 04-28-2024 take 2 puff(s) by inhalation every four hours for wheezing albuterol 90 mcg/actuation inhaler Indications: Influenza A Inhale 2 puffs every 4 hours if needed for wheezing or shortness of breath. 18 g 03/29/2024 04/28/2024 Active Start: 01-23-2021 End: 07-15-2021 take 1 puff(s) by inhalation every six hours Albuterol Sulfate Discontinued 1 PUFF INHALATION EVERY 6 HOURS 8.January 23, 2021 1:48pm July 15, 2021 11:06am Start: 01-23-2021 End: 07-15-2021 Albuterol Sulfate 90 mcg/act uation HFA aerosol inhaler Discontinued 1 NMA INHALATION EVERY 6 HOURS as needed for shortness of breath or wheezing 8.January 23, 2021 1:00am July 15, 2021 11:06am Start: 01-23-2021 End: 07-15-2021 take 1 puff(s) by inhalation every six hours Albuterol Sulfate Discontinued 1 PUFF INHALATION EVERY 6 HOURS 8.5 January 23, 2021 1:00am July 15, 2021 11:06am amoxicillin 875 mg oral tablet (6 sources) Penicillin-class Antibacterial Start: 06-20-2024 take 1 tablet by mouth twice daily Amoxicillin 875 mg tablet Active 875 mg PO TWICE A DAY June 20, 2024 12:00am brompheniramine maleate 0.4 mg/ml / dextromethorphan hydrobromide 2 mg/ml / pseudoephedrine hydrochloride 6 mg/ml oral solution (1 source) alpha-Adrenergic Agonist, Uncompetitive H-rcilpi-G-aspartat e Receptor Antagonist, Sigma-1 Agonist Start: 03-29-2024 End: 04-08-2024 take 5 mL by mouth four times daily as needed for cough brompheniramine-ps eudoeph-DM 2-30-10 mg/5 mL syrup Indications: Influenza A Take 5 mL by mouth 4 times a day as needed for congestion or cough for up to 10 days. 120 mL 03/29/2024 04/08/2024 Active cholecalciferol 0.05 mg oral tablet (9 sources) Vitamin D Start: 03-31-2024 Cholecalciferol (Vitamin D3) (D3 Dots) 50 mcg (2,000 unit) tablet Active 50 ug PO DAILY March 31, 2024 1:00am docusate sodium 100 mg oral capsule (20 sources) Start: 02-01-2023 End: 12-11-2023 take 1 capsule by mouth once daily as needed for constipation Docusate Sodium (Stool Softener) 100 mg capsule Active 100 mg PO DAILY as needed for constipation December 11, 2023 8:20am 84 hr estradiol 0.87135 mg/hr transdermal system (20 sources) Estrogen Start: 06-06-2024 estradiol (SHAYE) 0.1 mg/24 hr patch APPLY 1 PATCH TOPICALLY TWICE A WEEK DIRECTED 24 patch 3 06/06/2024 Active Start: 03-31-2024 Estradiol (Dot ti) 0.1 mg/24 hr patch semiweekly Active 1 NMA TOPICAL SUWE March 31, 2024 1:00am Start: 01-15-2024 End: 07-13-2024 estradiol (VIVELLE-DOT) 0.1 mg/24 hr patch Apply 1 Patch as directed two times a week. 24 Patch 1 01/15/2024 06/06/2024 Discontinued Start: 11-24-2023 End: 03-31-2024 take 1 tablet by mouth once daily Estradiol 1 mg tablet Discontinued 1 mg PO daily December 11, 2023 8:21am March 31, 2024 7:31am On Hold: Ordered estradiol (Vivel le-DOT) 0.0375 mg/[address] 1 patch on the skin 2 times a week. Active Estradiol / norgestimate (1 source) Progestin, Estrogen take 1 tablet by mouth once daily estradiol-norgestimate biphasic oral tablet ; 1 tab(s) orally once a day Quantity: 0 Refills: 0 Ordered: 19-Jan-2021 Tracey Lino Generic Substitution Allowed fluvoxaMINE maleate 100 mg oral tablet (20 sources) Serotonin Reuptake Inhibitor Start: take 1 tablet by mouth once daily Fluvoxamine 100 mg tablet Active 100 mg PO DAILY March 31, 2024 1:00am Start: 03-15-2024 fLuvoxaMINE (L uvox) 100 mg tablet 03/15/2024 Active Start: 05-08-2022 fluvoxaMINE Ma leate (LUVOX) 25 mg tablet Take 100 mg by mouth once daily. 05/08/2022 Active Start: 04-24-2022 End: 03-31-2024 take 1 tablet by mouth once daily Fluvoxamine 25 mg tablet Discontinued 100 mg PO DAILY April 24, 2022 12:00am March 31, 2024 7:32am Start: 04-24-2022 take 100 mg by mouth once alex y Fluvoxamine Active 100 MG PO DAILY April 24, 2022 12:00am Comment on above: Take 25 mg by mouth once daily. Take 100 mg by mouth once daily. LORazepam 0.5 mg oral tablet (1 source) Benzodiazepine Start: 11-24-19 Ativan 0.5 mg oral tablet Dose : 0.25 mg = 0.5 tab(s), Oral, BID, PRN as needed for anxiety, 0 Refill(s) Start Date: 11/23/18 Status: Ordered Repeat number: 1 metroNIDAZOLE 0.01 mg/mg topical gel (8 sources) Nitroimidazole Antimicrobial Start: 04-26-19 25 Metronidazole 1 % gel Active TOPICAL April 25, 2024 12:00am Mononessa 0.25 mg-35 mcg oral tablet (1 source) Start: 11-24-19 19 take 1 tablet by mouth once daily Mononessa 0.25 mg-35 mcg oral tablet Dose = 1 tab(s), Oral, qDay, # 84 tab(s), 3 Refill(s) Start Date: 11/23/18 Status: Ordered Quantity: 84.0 Unit: tab(s) Repeat number: 1 multivit,thx,calcium, iron,mins (MULTIVITAMIN AND MINERAL ORAL) (3 sources) multivit,thx,royal cium ,iron,mins (MULTIVITAMIN AND MINERAL ORAL) Take by mouth. Active Multivitamin preparation (17 sources) Start: 02-16-19 20 take 1 tablet by mouth once daily multivitamin Active 1 TABLET PO DAILY February 16, 2019 7:48pm Start: 02-16-2019 multivitamin A ctive 1 {tbl} PO DAILY February 16, 2019 1:00am Start: 02-16-2019 multivitamin A ctive 1 {tbl} PO DAILY February 16, 2019 12:00am Start: 02-16-2019 take 1 tablet by taniya th once daily multivitamin Active 1 TABLET PO DAILY February 16, 2019 1:00am Start: 02-16-2019 take 1 tablet by taniya th once daily multivitamin Active 1 TABLET PO DAILY February 16, 2019 12:00am Start: 11-23-2018 take 1 tablet by taniya th once daily Multivitamin Dose = 1 tab(s), Oral, Daily, 0 Refill(s) Start Date: 11/23/18 Status: Ordered Repeat number: 1 take 1 tablet by taniya th once daily Multiple Vitamins oral tablet ; 1 tab(s) orally once a day Quantity: 0 Refills: 0 Ordered: 19-Jan-2021 Tracey Lino Generic Substitution Allowed OTC PRODUCT (2 sources) OTC PRODUCT Zenu im supplement Active oxyCODONE hydrochloride 5 mg oral tablet (3 sources) Opioid Agonist Start: 4 End: 4 take 1 tablet by mouth every six hours as needed for pain oxyCODONE IR (ROXICODONE) 5 mg immediate release tablet Indications: Post-op pain Take 1 tablet by mouth every 6 hours as needed for pain for up to 3 days. 10 tablet 11/10/2023 11/13/2023 Active rosuvastatin calcium 10 mg oral tablet (2 sources) HMG-CoA Reductase Inhibitor Start: 5 take 5 mg by mouth once daily Rosuvastatin 10 mg tablet Active 5 mg PO DAILY July 19, 2024 12:00am Vitamin B Complex tablet (8 sources) Start: 5 take 1 tablet by mouth once daily Vitamin B Complex tablet Active 1 {tbl} PO daily April 27, 2024 12:00am pt reports she takes one B complex gummy per day, unsure on strength vitamin e 180 mg oral capsule (20 sources) Start: 1 Vitamin E (Dl, Acetate) 400 UNITS capsule Active 400 U PO DAILY March 26, 2020 1:00am End: 11-06-2023 take 1 capsule by mouth once daily Vitamin E, dl, acetate, (VITAMIN E) 400 unit capsule Take 400 Units by mouth once daily. 11/06/2023 Discontinued take 1 capsule by [facility] once daily vitamin E 400 intl units oral capsule ; 1 cap(s) orally once a day Quantity: 0 Refills: 0 Ordered: 19-Jan-2021 Tracey Lino Generic Substitution Allowed Comment on above: Take 400 Units by [facility] once daily. vitamin E mixed/tocotrienol (VITAMIN E COMPLEX ORAL) (3 sources) vitamin E mixed/ tocotrienol (VITAMIN E COMPLEX ORAL) Take by mouth. Active Zinc (2 sources) ZINC ORAL Take b y mouth. Active Completed/Discontinued Medications Medication Drug Class(es) Dates Sig (Normalized) Sig (Original) acetaminophen 325 mg oral tablet (10 sources) Start: 11-10-2023 End: 12-17-2023 take 2 tablets by mouth every six hours as needed acetaminophen (TYLENOL) 325 mg tablet Take 2 tablets by mouth every 6 hours as needed for pain. 60 tablet 11/10/2023 12/17/2023 Discontinued ARIPiprazole 5 mg oral tablet (20 sources) Atypical Antipsychotic Start: 01-06-2022 End: 12-08-2023 take 1 tablet by mouth once daily Aripiprazole 5 mg tablet Discontinued 5 mg PO DAILY January 17, 2022 1:00am December 08, 2023 1:29pm Comment on above: Take by mouth. benzonatate 200 mg oral capsule (20 sources) Non-narcotic Antitussive Start: 10-06-2023 End: 12-08-2023 take 1 capsule by mouth three times daily as needed for cough Benzonatate 200 mg capsule Discontinued 200 mg PO THREE TIMES A DAY as needed for cough October 06, 2023 12:00am December 08, 2023 1:29pm Start: 01-23-2021 End: 07-01-2021 take 1 capsule by mouth twice daily as needed for cough Benzonatate 100 mg capsule Discontinued 100 mg PO TWICE A DAY as needed for cough January 23, 2021 1:00am July 01, 2021 1:34pm 24 hr buPROPion hydrochloride 150 mg extended release oral tablet (20 sources) Aminoketone Start: 12-11-2023 End: 03-31-2024 take 1 tablet by mouth once daily in the morning Bupropion Hcl 150 mg tablet extended release 24 hr Discontinued 150 mg PO EVERY MORNING December 11, 2023 8:20am March 31, 2024 7:31am Start: 01-09-2022 buPROPion XL ( WELLBUTRIN XL) 150 mg 24 hr tablet Start: 07-19-2020 End: 12-11-2023 Bupropion Hcl 150 mg tablet extended release 24 hr Discontinued 300 mg PO EVERY MORNING July 19, 2020 12:00am December 11, 2023 8:21am Start: 07-19-2020 End: 05-20-2024 take 1 tablet by mouth once daily buPROPion XL (WELLBUTRIN XL) 150 mg 24 hr tablet Take 300 mg by mouth once daily. 01/09/2022 05/20/2024 Discontinued Start: 07-19-2020 take 150 mg by mouth once daily in the morning Bupropion Hcl Active 150 MG PO EVERY MORNING July 19, 2020 3:35pm Comment on above: Take 300 mg by mouth once daily. calcium carbonate 1250 mg / cholecalciferol 600 unt oral tablet (20 sources) Vitamin D Start: 03-26-2020 End: 11-03-2022 Calcium Carbonate-Vitamin D3 1 EACH tablet Discontinued 1 NMA PO DAILY March 26, 2020 1:00am November 03, 2022 3:52pm Start: 03-26-2020 End: 11-03-2022 Calcium Carbonate-Vitamin D3 Discontinued 1 EACH PO DAILY March 26, 2020 1:00am November 03, 2022 3:52pm End: 11-06-2023 take 1 tablet by mouth twice daily alwrwgd-pmvbvzcts-oeqoych D3 500 mg(1,250mg) -200 unit per tablet Calcium 500 + D 500 mg (1,250 mg)-200 unit tablet take 1 tablet by oral route 2 times a day 11/06/2023 Discontinued take 1 tablet by taniya th once daily Calcium 600+D 600 mg-5 mcg (200 intl units) oral tablet ; 1 tab(s) orally once a day Quantity: 0 Refills: 0 Ordered: 19-Jan-2021 Tracey Lino Generic Substitution Allowed Comment on above: Calcium 500 + D 500 mg (1,250 mg)-200 unit tablet take 1 tablet by oral route 2 times a day cephalexin 500 mg oral capsule (12 sources) Cephalosporin Antibacterial Start: 3 End: 4 take 1 capsule by mouth twice daily Cephalexin 500 mg capsule Discontinued 500 mg PO TWICE A DAY February 02, 2023 1:00am April 28, 2023 2:37pm Cranberry Fruit (20 sources) Non-Standardized Food Allergenic Extract, Non-Standardized Plant Allergenic Extract Start: 3 End: 4 take 1 capsule by mouth once daily Cranberry Fruit 400 mg capsule Discontinued 400 mg PO DAILY February 01, 2023 1:00am December 08, 2023 1:29pm administer with a meal Start: 02-01-2023 End: 12-08-2023 take 1 capsule by mouth once daily Cranberry Fruit 400 mg capsule Discontinued 400 mg PO DAILY February 01, 2023 12:00am December 08, 2023 12:29pm administer with a meal Start: 02-01-2023 take 400 mg by mouth once alex y Cranberry Active 400 MG PO DAILY February 01, 2023 1:00am administer with a meal Start: 02-01-2023 take 400 mg by mouth once alex y Cranberry Active 400 MG PO DAILY February 01, 2023 12:00am administer with a meal Start: 03-26-2020 End: 07-15-2021 take 400 mg by mouth once daily Cranberry Discontinued 400 MG PO DAILY March 26, 2020 11:51am July 15, 2021 11:06am Start: 03-26-2020 End: 07-15-2021 take 1 capsule by mouth once daily Cranberry Fruit 400 MG capsule Discontinued 400 mg PO DAILY March 26, 2020 1:00am July 15, 2021 11:06am Start: 03-26-2020 End: 07-15-2021 take 1 capsule by mouth once daily Cranberry Fruit 400 MG capsule Discontinued 400 mg PO DAILY March 26, 2020 12:00am July 15, 2021 10:06am Start: 03-26-2020 End: 07-15-2021 take 400 mg by mouth once daily Cranberry Discontinued 400 MG PO DAILY March 26, 2020 1:00am July 15, 2021 11:06am Start: 03-26-2020 End: 07-15-2021 take 400 mg by mouth once daily Cranberry Discontinued 400 MG PO DAILY March 26, 2020 12:00am July 15, 2021 10:06am End: 11-06-2023 take 2 capsules by mouth once daily, then take 2 capsules by mouth once daily CRANBERRY ORAL Take 2 capsules by mouth once daily. 2 gummies daily 11/06/2023 Discontinued take 2 capsules by m outh once daily, then take 2 capsules by mouth once daily CRANBERRY ORAL Take 2 capsules by mouth once daily. 2 gummies daily Active take 2 capsules by m outh once daily, then take 2 capsules by mouth once daily CRANBERRY ORAL Take 2 capsules by mouth once daily. 2 gummies daily 0 Active take 1 tablet by once daily Cranberry oral tablet ; 1 tab(s) orally once a day Quantity: 0 Refills: 0 Ordered: 19-Jan-2021 Tracey Lino Generic Substitution Allowed Comment on above: Take 2 capsules by m outh once daily. 2 gummies daily drospirenone / Ethinyl Estradiol (15 sources) Progestin, Estrogen Start: 4 End: 4 take 1 tablet by mouth once daily Drospirenone-Ethinyl Estradiol (KOKI, 28,) 3-0.03 mg per tablet Indications: Premature ovarian failure , Breakthrough bleeding on control pills , Surveillance for control, oral contraceptives Take 1 tablet by mouth once daily. FOR CONTINUOUS USE - Take only hormone pills, skipping placebo pills. 112 tablet 5 05/19/2023 11/10/2023 Discontinued Start: 05-19-2023 End: 04-19-2024 take 1 tablet by mouth once daily Drospirenone-Ethinyl Estradiol (KOKI, 28,) 3-0.03 mg per tablet Indications: Premature ovarian failure , Breakthrough bleeding on control pills , Surveillance for control, oral contraceptives Take 1 tablet by mouth once daily. FOR CONTINUOUS USE - Take only hormone pills, skipping placebo pills. 112 tablet 5 05/19/2023 04/19/2024 Active Start: 05-09-2022 End: 05-19-2023 take 1 tablet by mouth once daily Drospirenone-Ethinyl Estradiol (KOKI, 28,) 3-0.03 mg per tablet Indications: Premature ovarian failure , Breakthrough bleeding on control pills Take 1 tablet by mouth once daily. 84 tablet 4 05/09/2022 05/19/2023 Discontinued Start: 05-09-2022 End: 04-10-2023 take 1 tablet by mouth once daily Drospirenone-Ethinyl Estradiol (KOKI, 28,) 3-0.03 mg per tablet Indications: Premature ovarian failure , Breakthrough bleeding on control pills Take 1 tablet by mouth once daily. 84 tablet 4 05/09/2022 04/10/2023 Active Comment on above: Take 1 tablet by taniya th once daily. Take 1 tablet by taniya th once daily. FOR CONTINUOUS USE - Take only hormone pills, skipping placebo pills. Ethinyl Estradiol / norgestimate (20 sources) Progestin, Estrogen Start: 2 End: 3 take 1 tablet by mouth once daily norgestimate 0.25 mg-ethinyl estradiol 35 mcg (SPRINTEC) 0.25-35 mg-mcg per tablet Indications: Premature ovarian failure Take 1 tablet by mouth once daily. 84 tablet 4 05/07/2021 05/09/2022 Discontinued Start: 05-07-2021 take 1 tablet by taniya th once daily norgestimate 0.25 mg-ethinyl estradiol 35 mcg (SPRINTEC) 0.25-35 mg-mcg per tablet Indications: Premature ovarian failure Take 1 tablet by mouth once daily. 84 tablet 4 05/07/2021 Active Start: 04-18-2021 End: 05-07-2021 take 1 tablet by mouth once daily SPRINTEC 0.25-35 mg-mcg per tablet Indications: Premature ovarian failure Take 1 tablet by mouth once daily 84 tablet 0 04/18/2021 05/07/2021 Discontinued Start: 04-18-2021 take 1 tablet by taniya th once daily SPRINTEC 0.25-35 mg-mcg per tablet Indications: Premature ovarian failure Take 1 tablet by mouth once daily 84 tablet 0 04/18/2021 Active Start: 02-17-2020 End: 04-18-2021 take 1 tablet by mouth once daily norgestimate 0.25 mg-ethinyl estradiol 35 mcg (BLAIDMIR) 0.25-35 mg-mcg per tablet Indications: Premature ovarian failure Take 1 tablet by mouth once daily. 3 Package 5 02/17/2020 04/18/2021 Discontinued Start: 02-16-2019 take 1 tablet by taniya th once daily Norgestimate-Ethinyl Estradiol Active 1 TABLET PO DAILY February 16, 2019 7:48pm Start: 02-16-2019 End: 12-11-2023 Norgestimate-Ethinyl Estradi ol 0.25-35 mg-mcg tablet Discontinued 1 {tbl} PO DAILY February 16, 2019 1:00am December 11, 2023 8:21am Start: 02-16-2019 End: 12-11-2023 Norgestimate-Ethinyl Estradi ol 0.25-35 mg-mcg tablet Discontinued 1 {tbl} PO DAILY February 16, 2019 12:00am December 11, 2023 7:21am Start: 02-16-2019 take 1 tablet by taniya th once daily Norgestimate-Ethinyl Estradiol Active 1 TABLET PO DAILY February 16, 2019 1:00am Start: 02-16-2019 take 1 tablet by atniya th once daily Norgestimate-Ethinyl Estradiol Active 1 TABLET PO DAILY February 16, 2019 12:00am Comment on above: Take 1 tablet by taniya th once daily Take 1 tablet by taniya th once daily. FLUoxetine 20 mg oral capsule (20 sources) Serotonin Reuptake Inhibitor Start: 01-17-2022 End: 04-24-2022 Fluoxetine 20 mg capsule Discontinued 20 mg PO January 17, 2022 1:00am April 24, 2022 1:53pm Start: 02-16-2019 End: 01-17-2022 take 1 capsule by mouth once daily Fluoxetine 40 mg capsule Discontinued 40 mg PO DAILY February 16, 2019 1:00am January 17, 2022 11:25am Start: 11-23-2018 PROzac 10 mg o ral capsule Dose : 10 mg = 1 cap(s), Oral, qDay, # 30 cap(s), 0 Refill(s) Start Date: 11/23/18 Status: Ordered Quantity: 30.0 Unit: cap(s) Repeat number: 1 End: 05-09-2022 FLUoxetine HCl (PROZAC) 40 m g capsule Take 20 mg by mouth once daily. 0 05/09/2022 Discontinued Comment on above: fluoxetine 40 mg cap mak Take 20 mg by mouth once daily. Ginkgo Biloba Kopperl Extract (15 sources) Start: 03-26-2020 End: 08-29-2020 Ginkgo Biloba Kopperl Extract Discontinued 60 MG PO March 26, 2020 11:51am August 29, 2020 9:36am Start: 03-26-2020 End: 08-29-2020 Ginkgo Biloba Kopperl Extract 6 0 MG tablet Discontinued 60 mg PO March 26, 2020 1:00am August 29, 2020 9:36am Start: 03-26-2020 End: 08-29-2020 Ginkgo Biloba Kopperl Extract 6 0 MG tablet Discontinued 60 mg PO March 26, 2020 12:00am August 29, 2020 8:36am Start: 03-26-2020 End: 08-29-2020 Ginkgo Biloba Kopperl Extract D iscontinued 60 MG PO March 26, 2020 1:00am August 29, 2020 9:36am Start: 03-26-2020 End: 08-29-2020 Ginkgo Biloba Kopperl Extract D iscontinued 60 MG PO March 26, 2020 12:00am August 29, 2020 8:36am hydrOXYzine hydrochloride 10 mg oral tablet (20 sources) Antihistamine Start: 02-16-2019 End: 05-09-2022 take 1 tablet by mouth twice daily as needed Hydroxyzine Hcl 10 mg tablet Discontinued 10 mg PO TWICE A DAY as needed July 19, 2020 3:34pm January 17, 2022 11:25am Comment on above: hydroxyzine HCl 10 m g tablet ibuprofen 600 mg oral tablet (10 sources) Nonsteroidal Anti-inflammatory Drug Start: 11-10-2023 End: 12-17-2023 take 1 tablet by mouth every six hours as needed ibuprofen (MOTRIN) 600 mg tablet Take 1 tablet by mouth every 6 hours as needed for pain. Take with food. 60 tablet 11/10/2023 12/17/2023 Discontinued methylPREDNISolone 4 mg oral tablet (9 sources) Corticosteroid Start: 10-06-2023 End: 12-08-2023 take 1 tablet by mouth once Methylprednisolone (Medrol (Kip)) 4 mg tablets,dose pack Discontinued 0 PO per package directions October 06, 2023 12:00am December 08, 2023 1:30pm PO PER PKG DIR metoprolol tartrate 50 mg oral tablet (9 sources) beta-Adrenergic Alber Start: 01-15-2024 End: 03-31-2024 take 1 tablet by mouth once Metoprolol Tartrate 50 mg tablet Discontinued 50 mg PO ONCE January 15, 2024 1:00am March 31, 2024 7:32am multivit with min-folic acid (ONE-A-DAY WOMEN VITACRAVES) 200 mcg chew (17 sources) End: 11-06-2023 take 1 tablet by mouth once daily multivit with min-folic acid (ONE-A-DAY WOMEN VITACRAVES) 200 mcg chew One-A-Day Women VitaCraves 200 mcg chewable tablet chew 1 tablet by oral route daily 11/06/2023 Discontinued take 1 tablet by mouth once alex y multivit with min-folic acid (ONE-A-DAY WOMEN VITACRAVES) 200 mcg chew One-A-Day Women VitaCraves 200 mcg chewable tablet chew 1 tablet by oral route daily Active take 1 tablet by mouth once alex y multivit with min-folic acid (ONE-A-DAY WOMEN VITACRAVES) 200 mcg chew One-A-Day Women VitaCraves 200 mcg chewable tablet chew 1 tablet by oral route daily 0 Active Comment on above: One-A-Day Women Nicole Craves 200 mcg chewable tablet chew 1 tablet by oral route daily naltrexone hydrochloride 50 mg oral tablet (17 sources) Opioid Antagonist Start: End: take 1 tablet by mouth once daily Naltrexone 50 mg tablet Discontinued 50 mg PO DAILY August 21, 2023 12:00am December 08, 2023 1:30pm End: 11-06-2023 naltrexone HCl (NALTREXONE O RAL) Take by mouth. 11/06/2023 Discontinued naltrexone HCl ( NALTREXONE ORAL) Take by mouth. Active naltrexone HCl ( NALTREXONE ORAL) Take by mouth. 0 Active naproxen 375 mg oral tablet (9 sources) Nonsteroidal Anti-inflammatory Drug Start: 04-04-2024 End: 04-25-2024 take 1 tablet by mouth twice daily at mealtime Naproxen 375 mg tablet Discontinued 375 mg PO TWICE A DAY April 04, 2024 1:00am April 25, 2024 1:06pm Take with food and lots of water nitrofurantoin, macrocrystals 25 mg / nitrofurantoin, monohydrate 75 mg oral capsule (20 sources) Nitrofuran Antibacterial Start: 11-30-2023 End: 12-05-2023 take 1 capsule by mouth every twelve hours at mealtime Nitrofurantoin Monohyd/M-Cryst (Macrobid) 100 mg capsule Discontinued 100 mg PO Q12H 10 November 30, 2023 12:00am December 04, 2023 12:00am December 05, 2023 12:14am must administer with a meal/food Start: 12-17-2022 End: 12-24-2022 take 1 capsule by mouth every twelve hours at mealtime Nitrofurantoin Monohyd/M-Cryst 100 mg capsule Discontinued 1 NMA PO Q12H 14 December 17, 2022 1:00am December 23, 2022 1:00am December 24, 2022 1:05am administer with a meal/food; swallow whole; do not open, crush, dissolve , or chew OLANZapine 2.5 mg oral tablet (20 sources) Atypical Antipsychotic Start: 07-15-2021 End: 01-17-2022 take 1 tablet by mouth once daily Olanzapine 2.5 mg tablet Discontinued 2.5 mg PO DAILY July 15, 2021 11:07am January 17, 2022 11:25am Start: 12-04-2020 End: 07-15-2021 take 2 tablets by mouth once daily Olanzapine 2.5 mg tablet Discontinued 5 mg PO DAILY December 04, 2020 10:24am July 15, 2021 11:07am Start: 12-04-2020 End: 07-15-2021 take 5 mg by mouth once daily Olanzapine Discontinued 5 MG PO DAILY December 04, 2020 10:24am July 15, 2021 11:07am Start: 03-26-2020 End: 12-04-2020 take 1 tablet by mouth once daily Olanzapine 2.5 MG tablet Discontinued 2.5 mg PO DAILY March 26, 2020 1:00am December 04, 2020 10:24am Start: 02-25-2019 End: 02-25-2019 take 1 tablet by mouth once daily Olanzapine 5 mg tablet Discontinued 5 mg PO DAILY February 25, 2019 1:00am February 25, 2019 10:57am End: 05-09-2022 OLANZapine (ZYPREXA) 5 mg ta blet 2.5 mg. 0 05/09/2022 Discontinued Comment on above: 2.5 mg. predniSONE 20 mg oral tablet (9 sources) Start: 03-31-2024 End: 04-04-2024 take 3 tablets by mouth once daily Prednisone 20 mg tablet Discontinued 60 mg PO DAILY March 31, 2024 1:00am April 04, 2024 10:13am sennosides, fci 8.6 mg oral tablet (13 sources) Start: 11-10-2023 End: 05-20-2024 take 2 tablets by mouth twice daily in the evening Senna 8.6 mg tab Take 2 tablets by mouth two times a day. 50 tablet 11/10/2023 7:33 PM EDT 11/10/2023 05/20/2024 Discontinued SUTAB 1.479-0.188- 0.225 gram tab (7 sources) Start: 2023 End: 11-24-2023 SUTAB 1.479-0.188- 0.225 gram tab as directed. 2023 11/24/2023 Discontinued Start: 2023 SUTAB 1.479-0. 188- 0.225 gram tab as directed. 2023 Suspended Start: 2023 SUTAB 1.479-0. 188- 0.225 gram tab as directed. 2023 Active Vitamin B Complex (B Complex-Vitamin B12) tablet (15 sources) Start: 02-16-2019 End: 02-25-2019 take 1 tablet by mouth once daily Vitamin B Complex (B Complex-Vitamin B12) tablet Discontinued 1 TABLET PO DAILY February 16, 2019 7:48pm February 25, 2019 10:38am Start: 02-16-2019 End: 02-25-2019 Vitamin B Complex (B Complex -Vitamin B12) tablet Discontinued 1 {tbl} PO DAILY February 16, 2019 1:00am February 25, 2019 10:38am Start: 02-16-2019 End: 02-25-2019 Vitamin B Complex (B Complex -Vitamin B12) tablet Discontinued 1 {tbl} PO DAILY February 16, 2019 12:00am February 25, 2019 9:38am Start: 02-16-2019 End: 02-25-2019 take 1 tablet by mouth once daily Vitamin B Complex (B Complex-Vitamin B12) tablet Discontinued 1 TABLET PO DAILY February 16, 2019 1:00am February 25, 2019 10:38am Start: 02-16-2019 End: 02-25-2019 take 1 tablet by mouth once daily Vitamin B Complex (B Complex-Vitamin B12) tablet Discontinued 1 TABLET PO DAILY February 16, 2019 12:00am February 25, 2019 9:38am vitamin B12 (20 sources) Vitamin B12 Start: 03-26-2020 End: 03-31-2024 take 2 tablets by mouth once daily Cyanocobalamin (Vitamin B-12) 500 MCG tablet Discontinued 1000 ug PO DAILY@799March 26, 2020 1:00am March 31, 2024 7:31am On Hold: Ordered Start: 03-26-2020 End: 03-31-2024 take 2 tablets by mouth once daily Cyanocobalamin (Vitamin B-12) 500 MCG tablet Discontinued 1000 ug PO DAILY@799March 26, 2020 12:00am March 31, 2024 6:31am On Hold: Ordered Start: 03-26-2020 take 1000 ug by mout h once daily Cyanocobalamin (Vitamin B-12) Active 1000 MCG PO DAILY@799March 26, 2020 1:00am take 1 tablet by taniya th once daily cyanocobalamin (VITAMIN B-12) 1,000 mcg tab Take 1,000 mcg by mouth once daily. Active End: 11-06-2023 cyanocobalamin (VITAMIN B-12 ) 500 mcg tablet Take by mouth once daily. 11/06/2023 Discontinued Comment on above: Take by mouth once d aily. zinc gluconate 50 mg oral tablet (13 sources) Start: 11-03-2022 End: 12-08-2023 take 1 tablet by mouth once daily Zinc Gluconate 50 mg tablet Discontinued 50 mg PO DAILY November 03, 2022 12:00am December 08, 2023 1:30pm Problems Active Problems Problem Classification Problem Date Documented Date Episodic/Chronic Abdominal pain (20 sources) Left upper quadrant pain; Translations: [Left upper quadrant pain] Onset: 11-10-2023 02-02-2023 Episodic Anxiety disorders (20 sources) Mixed anxiety and depressive disorder; Translations: [Anxiety disorder, unspecified] Onset: 11-06-2023 Chronic Comment on above: [address] [facility] - 11/27 Biliary tract disease (11 sources) Cholangiectasis; 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] Onset: 07-05-2024 06-29-2024 Chronic Blindness and vision defects (15 sources) Disorder of vision; Translations: [Unspecified visual loss] 03-28-2019 Chronic Coagulation and hemorrhagic disorders (18 sources) Thrombocytopenic disorder; Translations: [Thrombocytopenia, unspecified] Onset: 11-09-2023 11-09-2023 Chronic Complications of surgical procedures or medical care (1 source) Postsurgical menopause; Translations: [Asymptomatic postprocedural ovarian failure] 05-20-2024 Chronic Contraceptive and procreative management (1 source) Oral contraception; Translations: [Encounter for surveillance of contraceptive pills] 05-19-2023 Episodic Diabetes mellitus without complication (16 sources) Hyperglycemia; Translations: [Hyperglycemia, unspecified] 07-01-2021 Episodic Diseases of white blood cells (20 sources) Leukopenia; Translations: [Decreased white blood cell count, unspecified] Onset: 04-28-2023 Chronic Comment on above: Associated with hypo cellular bone marrow biopsy.Clinically stable. WBC 3.4 with ANC 1.9 today.Had night sweats, no fever. Associated with hypo cellular bone marrow biopsy.Clinically stable. WBC 3.2 with ANC 1.9 today.Had night sweats, no fever. Associated with hypo cellular bone marrow biopsy.Clinically stable. WBC 2.8 with ANC 1.6 today. Flow cytometry on 04/18/2024 showed no Immunophenotypic abnormalities.Had night sweats, no fever.Clinically stable. Genitourinary symptoms and ill-defined conditions (20 sources) Increased frequency of urination; Translations: [Frequency of micturition] Onset: 05-05-2024 11-07-2020 Episodic Headache; including migraine (20 sources) Headache; Translations: [Headache] 01-19-2021 Episodic Heart valve disorders (20 sources) Mitral valve prolapse; Translations: [Nonrheumatic mitral (valve) prolapse] Onset: 11-06-2023 Chronic Hepatitis (20 sources) Nonalcoholic steatohepatitis; Translations: [Nonalcoholic steatohepatitis (COELHO)] Onset: 02-15-2024 12-31-2023 Chronic Immunizations and screening for infectious disease (20 sources) Patient encounter status; Translations: [Encounter for screening for human papillomavirus (HPV)] Episodic Influenza (20 sources) Influenza due to Influenza A virus; Translations: [Influenza due to other identified influenza virus with other respiratory manifestations] 03-29-2024 Episodic Menopausal disorders (6 sources) Premature ovarian failure; Translations: [Other primary ovarian failure] Chronic Menopausal disorders (1 source) Drug therapy finding; Translations: [Hormone replacement therapy] 02-11-2024 Episodic Menstrual disorders (5 sources) Break-through bleeding; Translations: [Excessive and frequent menstruation with irregular cycle] Onset: 06-26-2023 Chronic Mood disorders (9 sources) Depressive disorder; Translations: [Depression] 12-08-2023 Chronic Mood disorders (1 source) Mood disorders; Translations: [Depression, unspecified] Onset: 12-08-2023 Nutritional deficiencies (15 sources) Vitamin deficiency; Translations: [Vitamin deficiency, unspecified] 03-28-2019 Episodic Other aftercare (1 source) Surgical follow-up; Translations: [Encounter for follow-up examination after completed treatment for conditions other than malignant neoplasm] 11-24-2023 Episodic Other aftercare (1 source) Encounter for adjustment and management of vascular access device; Translations: [Encounter for adjustment and management of vascular access device] Onset: 07-28-2024 Episodic Other bone disease and musculoskeletal deformities (10 sources) Osteopenia; Translations: [Other specified disorders of bone density and structure, unspecified site] 12-31-2023 Episodic Other bone disease and musculoskeletal deformities (18 sources) Costal chondritis; Translations: [Chondrocostal junction syndrome [Tietze]] 04-04-2024 Episodic Other ear and sense organ disorders (15 sources) Sensation of blocked ear; Translations: [Other specified disorders of left ear] 12-04-2020 Episodic Other endocrine disorders (15 sources) Decreased estradiol level; Translations: [Other specified endocrine disorders] 03-28-2019 Episodic Other female genital disorders (1 source) Abnormal uterine bleeding; Translations: [Abnormal uterine and vaginal bleeding, unspecified] 01-19-2024 Chronic Other female genital disorders (1 source) Superficial pain on intercourse; Translations: [Superficial (introital) dyspareunia] 05-20-2024 Chronic Other female genital disorders (1 source) Disorder of uterine cervix; Translations: [Other specified noninflammatory disorders of cervix uteri] Episodic Other female genital disorders (1 source) Pruritus of vagina; Translations: [Other specified noninflammatory disorders of vagina] Episodic Other female genital disorders (1 source) Vaginal discharge; Translations: [Other specified noninflammatory disorders of vagina] 12-17-2023 Episodic Other liver diseases (19 sources) Steatosis of liver; Translations: [Fatty (change of) liver, not elsewhere classified] Onset: 11-09-2023 11-09-2023 Chronic Other liver diseases (4 sources) Drug-induced disorder of liver; 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, unspecified] 07-19-2024 Chronic Other liver diseases (1 source) Fatty (change of) liver, not elsewhere classified; Translations: [Fatty (change of) liver, not elsewhere classified] Onset: 06-29-2024 Chronic Other liver diseases (10 sources) Enzyme level - finding; Translations: [Transaminasemia] 06-29-2024 Episodic Other liver diseases (10 sources) Alkaline phosphatase raised; Translations: [Abnormal levels of other serum enzymes] 06-29-2024 Episodic Other liver diseases (4 sources) Elevated liver enzymes level; Translations: [Abnormal levels of other serum enzymes] 07-19-2024 Episodic Other liver diseases (1 source) Abnormal levels of other serum enzymes; Translations: [Abnormal levels of other serum enzymes] Onset: 07-22-2024 Episodic Other lower respiratory disease (15 sources) Dyspnea on exertion; Translations: [Dyspnea, unspecified] 08-29-2020 Episodic Other lower respiratory disease (1 source) Cough; Translations: [Acute cough] 03-29-2024 Episodic Other nutritional; endocrine; and metabolic disorders (20 sources) Obese class I; Translations: [Obesity, unspecified] Onset: 05-19-2023 05-19-2023 Chronic Other upper respiratory disease (15 sources) Seasonal allergy; Translations: [Other seasonal allergic rhinitis] 03-28-2019 Chronic Other upper respiratory disease (9 sources) Acute bronchospasm; Translations: [Acute bronchospasm] 04-08-2024 Episodic Other upper respiratory infections (15 sources) Posterior rhinorrhea; Translations: [Postnasal drip] 12-04-2020 Episodic Laverne-; endo-; and myocarditis; cardiomyopathy (except that caused by tuberculosis or sexually transmitted disease) (15 sources) Heart valve disorder; Translations: [Endocarditis, valve unspecified] 03-28-2019 Chronic Residual codes; unclassified (20 sources) Hypersomnia; Translations: [Hypersomnia, unspecified] Onset: 11-06-2023 07-01-2021 Chronic Residual codes; unclassified (2 sources) Hypersomnia, unspecified; Translations: [Hypersomnia, unspecified] Onset: 05-01-2024 Chronic Residual codes; unclassified (20 sources) Obstructive sleep apnea syndrome; Translations: [Obstructive sleep apnea (adult) (pediatric)] Chronic Residual codes; unclassified (1 source) Obstructive sleep apnea (adult) (pediatric); Translations: [Obstructive sleep apnea (adult) (pediatric)] Onset: 04-27-2024 Chronic Residual codes; unclassified (1 source) Postoperative state; Translations: [Other specified postprocedural states] 11-11-2023 Episodic Screening and history of mental health and substance abuse codes (15 sources) History of clinical finding in subject; Translations: [Personal history of other mental and behavioral disorders] 03-28-2019 Episodic Spondylosis; intervertebral disc disorders; other back problems (15 sources) Degeneration of cervical intervertebral disc; Translations: [Other cervical disc degeneration, unspecified cervical region] Chronic Spondylosis; intervertebral disc disorders; other back problems (20 sources) Chronic neck pain; Translations: [Cervicalgia] Episodic Suicide and intentional self-inflicted injury (15 sources) Suicidal thoughts; Translations: [Suicidal ideations] 03-28-2019 Episodic Comment on above: Was in [facility] 11/27 Unclassified (2 sources) RIGHT SIDED HEAD PAIN 01-19-2021 Comment on above: RIGHT SIDED HEAD REJI N Unclassified (1 source) APPOINTMENT CANCELLED 10-15-2022 Unclassified (1 source) Acute cough; Translations: [Acute cough] Onset: 03-29-2024 Unclassified (8 sources) G47.33 - Obstructive sleep apnea (adult) (pediatric) Past or Other Problems Problem Classification Problem Date Documented Da te Episodic/Chronic Administrative/social admission (2 sources) Education and/or schooling finding; Translations: [Problems related to education and literacy, unspecified] Onset: 2023 2023 Episodic Benign neoplasm of uterus (7 sources) Uterine leiomyoma; Translations: [Leiomyoma of uterus, unspecified] Onset: 06-26-2023 05-19-2023 Episodic Cardiac dysrhythmias (20 sources) Palpitations; Translations: [Palpitations] Onset: 11-06-2023 Episodic Noninfectious gastroenteritis (20 sources) Noninfectious gastroenteritis; Translations: [Noninfective gastroenteritis and colitis, unspecified] Onset: 08-28-2023 11-06-2023 Episodic Nonspecific chest pain (20 sources) Chest pain; Translations: [Chest pain, unspecified] Onset: 02-18-2024 Episodic Other bone disease and musculoskeletal deformities (1 source) Other specified disorders of bone density and structure, unspecified site; Translations: [Other specified disorders of bone density and structure, unspecified site] Onset: 03-05-2024 Episodic Other gastrointestinal disorders (1 source) Diarrhea, unspecified; Translations: [Diarrhea, unspecified] Onset: 10-14-2023 Episodic Other lower respiratory disease (1 source) Shortness of breath; Translations: [Shortness of breath] Onset: 04-14-2024 Episodic Other lower respiratory disease (1 source) Dyspnea, unspecified; Translations: [Dyspnea, unspecified] Onset: 02-18-2024 Episodic Other nervous system disorders (1 source) Other acute postprocedural pain; Translations: [Post-op pain] Onset: 11-10-2023 Episodic Other non-epithelial cancer of skin (17 sources) Basal cell carcinoma of skin; Translations: [Basal cell carcinoma of skin, unspecified] Onset: 11-10-2023 11-10-2023 Episodic Other screening for suspected conditions (not mental disorders or infectious disease) (5 sources) Cancer cervix screening status; Translations: [Encounter for screening for malignant neoplasm of cervix] Onset: 04-15-2024 Episodic Residual codes; unclassified (1 source) Acquired absence of both cervix and uterus; Translations: [Acquired absence of both cervix and uterus] Onset: 12-11-2023 Episodic Unclassified (1 source) Acute cough; Translations: [Acute cough] Onset: 03-29-2024 Unclassified (1 source) Patient encounter status 05-20-2024 Urinary tract infections (20 sources) Urinary tract infectious disease; Translations: [Urinary tract infection, site not specified] Onset: 11-30-2023 03-28-2019 Episodic Results Test Name Value Interpretation Reference Range Facility Absolute lymphocyte countOrd ered By: Gene Braun on 07-28-2024 Lymphocytes Auto (Unsp spec) [#/Vol] 0.66 10*3/uL Low 0.83-4.51 [facility] Absolute neutrophil countOrd ered [facility]: [facility] Neutrophils (Bld) [#/Vol] 1.6 10*3/uL Low 2.0-7.7 [facility] Automated lymphocyte count a s percentage of total leukocytesOrdered By: Gene Braun on 07-28-2024 Lymphocytes/100 WBC Auto (Unsp spec) 23.7 % - [facility] Basophil percentageOrdered B y: Gene [facility] on 07-28-2024 Basophils/100 WBC (Bld) 0.7 % 0-1 [facility] CBC W/Diff, Automatedon 07-10 Absolute Lymph 0.66 X10 3/uL Low 0.83-4.51 [facility] Comment on above: Performed By: #### L 100.0100 ####[facility] [id number] [place], [address] Absolute Neut 1.6 X10 3/uL Low 2.0-7.7 [facility] Comment on above: Performed By: #### L 100.0100 ####[facility] [id number] [place], [address] Basophils/100 WBC (Bld) 0.7 % Normal 0-1 [facility] Comment on above: Performed By: #### L 100.0100 ####[facility] [id number] [place], [address] Eosinophils/100 WBC (Bld) 2.9 % Normal 0-5 [facility] Comment on above: Performed By: #### L 100.0100 ####[facility] [id number] [place], [address] Erythrocyte distribution width (RBC) [Ratio] 13.4 % Normal 11.6-14.6 [facility] Comment on above: Performed By: #### L 100.0100 ####[facility] [id number] [place], [address] Hematocrit (Bld) [Volume fraction] 38.7 % Normal 37-47 [facility] Comment on above: Performed By: #### L 100.0100 ####[facility] [id number] [place], [address] Hemoglobin (Bld) [Mass/Vol] 13.4 g/dL Normal 12.0-15.0 [facility] Comment on above: Performed By: #### L 100.0100 ####[facility] [id number] [place], [address] IG% 0.000 Normal 0.0-0.9 [facility] Comment on above: Result Comment: IG% - Immature Granulocytes (promyelocytes, myelocytes and metamyelocytes) > 1% indicates that a LEFT SHIFT is Present. Performed By: #### L 100.0100 ####[facility] [facility] [address] [place], [address] Lymphocytes/100 WBC (Bld) 23.7 % Normal 19-41 [facility] Comment on above: Performed By: #### L 100.0100 ####[facility] [address] [place], [address] MCH (RBC) [Entitic mass] 34.4 pg High 27.0-32.0 [facility] Comment on above: Performed By: #### L 100.0100 ####[facility] [address] [place], [address] MCHC (RBC) [Mass/Vol] 34.6 g/dL Normal 32-36 [facility] Comment on above: Performed By: #### L 100.0100 ####[facility] [address] [place], [address] MCV (RBC) [Entitic vol] 99.2 fL High 81-99 [facility] Comment on above: Performed By: #### L 100.0100 ####[facility] [address] [place], [address] Monocytes/100 WBC (Bld) 14.7 % High 0-10 [facility] Comment on above: Performed By: #### L 100.0100 ####[facility] [address] [place], [address] Neutrophils/100 WBC (Bld) 58.0 % Normal 47-70 [facility] Comment on above: Performed By: #### L 100.0100 ####[facility] [address] [place], [address] Nucleated RBC (Bld) [#/Vol] 0 10*3/uL Normal 0-5 [facility] Comment on above: Performed By: #### L 100.0100 ####[facility] [address] [place], [address] Platelet mean volume (Bld) [Entitic vol] 10.4 fL Normal 6.2-12.0 [facility] Comment on above: Performed By: #### L 100.0100 ####[facility] [address] [place], [address] Platelets (Bld) [#/Vol] 158 10*3/uL Normal 150-450 [facility] Comment on above: Performed By: #### L 100.0100 ####[facility] [address] [place], [address] RBC (Bld) [#/Vol] 3.90 10*6/uL Low 4.2-5.4 [facility] Comment on above: Performed By: #### L 100.0100 ####[facility] [address] [place], [address] RDW SD 48.8 fl High 35.1-43.9 [facility] Comment on above: Performed By: #### L 100.0100 ####[facility] [address] [place], [address] WBC (Bld) [#/Vol] 2.8 10*3/uL Low 4.4-11.0 [facility] Comment on above: Performed By: #### L 100.0100 ####[facility] [address] [place], [address] Eosinophil percentageOrdered By: Gene Braun on 07-28-2024 Eosinophils/100 WBC (Bld) 2.9 % 0-5 [facility] Erythrocyte distribution wid th ratioOrdered By: Gene Braun on 07-28-2024 Erythrocyte distribution width (RBC) [Ratio] 13.4 % 11.6-14.6 [facility] Erythrocyte distribution wid th standard deviationOrdered By: Gene Braun on 07-28-2024 Erythrocyte distribution width (RBC) [Ratio] 48.8 fl High 35.1-43.9 [facility] Hematocrit Auto (Bld) [Volum e fraction]Ordered By: Gene Braun on 07-28-2024 Hematocrit (Bld) [Volume fraction] 38.7 % 37-47 [facility] Hemoglobin measurementOrdere d By: Gene Braun on 07-28-2024 Hemoglobin (Bld) [Mass/Vol] 13.4 g/dL 12.0-15.0 [facility] Immature granulocytes/100 WB C Auto (Bld)Ordered By: Gene Braun on 07-28-2024 Immature granulocytes/100 WBC (Bld) 0.000 % 0.0-0.9 [facility] Comment on above: IG% - Immature Granu locytes (promyelocytes, myelocytes and metamyelocytes) > 1% indicates that a LEFT SHIFT is Present. MCV (mean corpuscular volume ) determinationOrdered By: Gene Braun on 07-28-2024 MCV (RBC) [Entitic vol] 99.2 fL High 81-99 [facility] Mean corpuscular hemoglobin (MCH) determinationOrdered By: Gene Braun on 07-28-2024 MCH (RBC) [Entitic mass] 34.4 pg High 27.0-32.0 [facility] Mean corpuscular hemoglobin concentration (MCHC) determinationOrdered By: Gene Braun on 07-28-2024 MCHC (RBC) [Mass/Vol] 34.6 g/dL 32-36 [facility] Mean platelet volume determi nationOrdered By: Gene Braun on 07-28-2024 Platelet mean volume (Bld) [Entitic vol] 10.4 fL 6.2-12.0 [facility] Monocyte percentageOrdered B y: Gene Braun on 07-28-2024 Monocytes/100 WBC (Bld) 14.7 % High 0-10 [facility] Neutrophil percentageOrdered By: Gene Kade on 07-28-2024 Neutrophils/100 WBC (Bld) 58.0 % 47-70 [facility] Nucleated red blood cell per centageOrdered By: Gene Braun on 07-28-2024 Nucleated RBC/100 WBC (Bld) [Ratio] 0 % 0-5 [facility] Oncology Visit Reporton 07-10 Oncology Visit Report [facility] [place] [facility] [address] OFFICE VISIT Date of Service: 07/28/24 1144 MR#: [id number] Acct: [id number] Name: VIOLET HERNANDEZ Rep #: [id number] : 1985 From: Gene Braun MD Age/Sex: 38/F Location: [facility] Status: Signed HPI Subjective Date of Service 07/28/24 Chief Complaint F/u for Leukopenia. 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 Had bone marrow biopsy done at that time which was negative so stayed on observation. She remained leukopenic, moved to [facility], had another bone marrow biopsy on 01/25/2015. Pathology showed hypocellular marrow with normal cytogenetics and FISH. She moved to [place] and wanted her follow done here at [place] [facility]. She is on observation, had blood work done on 07/23/2024, WBC 2.2 so comes for follow up. Feels well. [facility] Medical History NICA (obstructive sleep apnea) Costochondritis COELHO (nonalcoholic steatohepatitis) Osteopenia Obesity (BMI 30.0-34.9) Abdominal pain Chronic diarrhea Preventative health care Depression Anxiety Cervical radiculopathy Hyperglycemia Encounter for vitamin deficiency screening Chronic neck pain Hypersomnolence Screening for thyroid disorder Health care maintenance Congestion of left ear Post-nasal drip Urinary frequency Nonrheumatic mitral (valve) prolapse Non-alcoholic fatty liver disease Suicide ideation Anxiety and depression Heart valve disorder Vitamin deficiency Vision problems Hormone deficiency Frequent headaches H/O emotional problems UTI (urinary tract infection) Seasonal allergies Surgical History History of hysterectomy Hx of local excision of skin lesion History of bone marrow biopsy Family History Brother Anxiety Hypertension Sister Anxiety Hypertension Uncle Anxiety Myocardial infarction Aunt Anxiety Grandmother Breast cancer Grandfather Myocardial infarction Father Hypertension Social History Smoking Status: Never smoker alcohol intake: never substance use type: does not use caffeine: Yes Type: tea Number of servings: 1 Intake Vital Signs 07/19/24 12:32 07/28/24 11:46 Height 4 ft 10 in 4 ft 10 in Weight: 60.101 kg BMI 27.6 BP 113/67 Blood Pressure Location Lt brachial Position Sitting Respiration 18 Pulse 57 L Pulse Source Monitor Temp 97.9 F Temperature Source Temporal Artery Pulse Oximetry (%) 97 Oxygen Delivery Method room air Intake Is patient in pain?: Yes (back pain) Pain scale (1-10): 1 Allergies No Known Allergies Allergy (Verified 07/28/24 11:52) Medications ???Medication ???Instructions ???Recorded ???Confirmed ???Type multivitamin 1 tablet PO DAILY 02/16/19 5 History vitamin E (dl, acetate) 180 mg 400 units PO DAILY 03/26/20 History (400 unit) capsule docusate sodium 100 mg capsule 100 mg PO DAILY PRN constipation 1 02/09/23 07/28/24 History (Stool Softener) albuterol sulfate 90 mcg/actuation 2 inh inhalation Q4H PRN shortne ss 03/31/24 07/28/24 History aerosol inhaler of breath or wheezing cholecalciferol (vitamin D3) 50 50 mcg PO DAILY 03/31/24 07/28/24 History mcg (2,000 unit) tablet (D3 DOTS) estradiol 0.1 mg/24 hr semiweekly 1 patch topical SUWE 03/31/24 History transdermal patch (Shaye) fluvoxamine 100 mg tablet 100 mg PO DAILY 03/31/24 07/28/24 History metronidazole 1 % topical gel topical Perioral detmatitis 07/28/24 History vitamin B complex 1 tab PO QDAY 04/27/24 07/28/24 Hi story amoxicillin 875 mg tablet 875 mg PO BID #20 tabs 06/20/24 Rx rosuvastatin 10 mg tablet 5 mg (1/2 x 10 mg) PO DAILY 1 07/1007/28/24 Rx month #30 tabs Central Venous Access Central Venous Access: No Exam Physical Exam Const alert, oriented x3 and no apparent distress Coding Level of Care Code Off vis,est,level 3 Exam Problem Focused Diagnoses Chronic leukopenia D72.819 Monocytosis D72.821 Assessment and Plan Assessment and Plan (1) Chronic leukopenia: Status: Chronic Comment: Associated with hypocellular bone marrow biopsy. Clinically stable. WBC 2.8 with ANC 1.6 today. Flow cytometry on 04/18/2024 showed no Immunophenotypic abnormalities. Had night sweats, no fever. Clinically stable. Plan: To continue observation. (2) Monocytosis: Status: Chronic Plan: Continue observation. Orders: Orders CBC W/Diff, Automated Today D72.819 - Decreased white blood cell count, unspecified (more content not included)... Normal [facility] Platelet countOrdered By: Erin Braun on 07-28-2024 Platelets (Bld) [#/Vol] 158 10*3/uL 150-450 [facility] RBC Auto (Bld) [#/Vol]Ordere d By: Gene Braun on 07-28-2024 RBC (Bld) [#/Vol] 3.90 10*6/uL Low 4.2-5.4 [facility] White blood cell (WBC) count Ordered By: Gene Braun on 07-28-2024 WBC (Bld) [#/Vol] 2.8 10*3/uL Low 4.4-11.0 [facility] Gastroenterology Visit Repor ton 07-19-2024 Gastroenterology Visit Report [facility] [address] [place] [address] OFFICE VISIT Date of Service: 07/19/24 MR#: [id number] Acct: [id number] Name: VIOLET HERNANDEZ Rep #: [id number] : 1985 Provider: Dr. Gulshan armendariz MD Age/Sex: 38/F Location: [facility] Status: Signed with Addenda ADDENDUM by Dr. Gulshan Jules MD on 07/19/24 at 1354 HPI Details: VIOLET HERNANDEZ, is a 38 F who presents to the office today for Addendum Follow-up in 4 months 07/19/24 1354 Date Gulshan Jules MD cc: Dr. Emily Sanders MD * Signed Intake Vital Signs 06/29/24 08:21 07/19/24 12:32 Height 4 ft 10 in 4 ft 10 in Weight: 135 lb 4 oz 134 lb BMI 28.3 28.0 BP 107/72 109/66 Blood Pressure Location Rt brachial Position Sitting Respiration 18 Pulse 60 50 L Pulse Oximetry (%) 96 95 Oxygen Delivery Method room air room air Intake Visit Reasons: FU Allergies No Known Allergies Allergy (Verified 06/29/24 08:17) PFSH Medical History NICA (obstructive sleep apnea) Costochondritis COELHO (nonalcoholic steatohepatitis) Osteopenia Obesity (BMI 30.0-34.9) Abdominal pain Chronic diarrhea Preventative health care Depression Anxiety Cervical radiculopathy Hyperglycemia Encounter for vitamin deficiency screening Chronic neck pain Hypersomnolence Screening for thyroid disorder Health care maintenance Congestion of left ear Post-nasal drip Urinary frequency Nonrheumatic mitral (valve) prolapse Non-alcoholic fatty liver disease Suicide ideation Anxiety and depression Heart valve disorder Vitamin deficiency Vision problems Hormone deficiency Frequent headaches H/O emotional problems UTI (urinary tract infection) Seasonal allergies Surgical History History of hysterectomy Hx of local excision of skin lesion History of bone marrow biopsy Family History Brother Anxiety Hypertension Sister Anxiety Hypertension Uncle Anxiety Myocardial infarction Aunt Anxiety Grandmother Breast cancer Grandfather Myocardial infarction Father Hypertension Social History Smoking Status: Never smoker alcohol intake: never substance use type: does not use caffeine: Yes Type: tea Number of servings: 1 HPI HPI Details: VIOLET HERNANDEZ, is a 38 F who presents to the office today for hepatology consult for COELHO. 3.10. Fib-4 1.12 US abd/ elastography 06.27.24- Liver measures 14.4 cm, Stiffness 6.8 kPa, CBD Dilated measuring up to 8.8 mm MRCP- 07.15.24- The common bile duct measures 3-4 mm in diameter, No biliary dilatation and no evidence for choledocholithiasis. 07/19/2024: Follow-up for MASLD/MASH. Had MRCP after last office visit. No abdominal pain, nausea, vomiting leg swelling or GI bleed. Has chronic thrombocytopenia/bone marrow disorder since 2008 and follows [facility] [employer] Dr. Braun. Had 2 bone marrow biopsy. Chronic leukopenia, neutropenia, lymphopenia, monocytosis. Had FISH test for CLL which was negative. Chronic purpuric rash in trunk and lower extremity due to chronic thrombocytopenia. In April 28 2222 platelet count was about 130k but now has improved to 170K. ROS Const Constitutional: Positive for fatigue; No fever(s) or weight change ENT ENT: No difficulty swallowing Resp Respiratory: No shortness of breath or wheezing Cardio Cardiology: No chest pain at rest or dyspnea on exertion Gastro GI: Positive for constipation; No abdominal pain, belching, bloating, change in bowel habits, change in stool character, coffee ground emesis, cramping, diarrhea, heartburn, difficulty swallowing, feeling full early, excessive flatus, incontinent of stools, Vomiting blood/hematemesis, Blood in stool, loose stools, Black,tarry stools, nausea/dyspepsia, pain with swallowing, vomiting or other Genitourinary-Female: No difficulty urinating or burning urination Musc Musculoskeletal: Positive for back pain, stiffness, tingling and leg pain at night; No joint pain Skin Skin: No yellowing of the eye or itchy eyes Neuro Neurology: Positive for tingling Psych Psychiatric: Positive for anxiety, No depression, Positive for inattentiveness and Positive for obsessions/compulsions Endo Endocrine: Positive for fatigue; No weight change Aller/Imm Allergy/Immunologic: No itchy eyes or wheezing Martinez/Lymp Hematologic/Lymphatic: Positive for easy bruising; No easy bleeding Exam Const General: cooperative, no acute distress and well developed Nutritional Appearance: overweight Orientation: alert, (more content not included)... Normal [facility] L501.5101on 07-15-2024 GGTP 103 IU/L Abnormal 0-60 [facility] Comment on above: Result Comment: Perf ormed at: CB - [facility] [address] [id number] Chief Security Officer: Jorgito Cunningham PhD, Phone: [phone] Performed By: #### L 8000.6202, L3410.9992, L3100.0460, L500.4100, L3890.6301, L3890.6102, L500.2500, L3300.1200, L800.1280, L803.2200, L100.0100, L503.6030, L3100.0300, L503.6550, L501.9985 #### [facility] [address] [place], [place], [address] MRI MRCPon 07-15-2024 MRI MRCP ORIGINAL EXAMINATION: MRCP 07/15/2024 4:21 pm TECHNIQUE: After initial T2 axial and coronal images, thick slab, thin slab and 3D coronal MRCP sequences were obtained without the administration of intravenous contrast. MIP images are provided for review. COMPARISON: None HISTORY: ORDERING SYSTEM PROVIDED HISTORY: Reason for Exam: 8 MM CBD, PRURITIS, ELEVATED ALP, RO PBC; OTHER SPECIFIEID DISEASE OF BILARY TRACT, ELEVATED LEVELS OF LIVER TRANSAMINASE, STEATOHEPATITIS FINDINGS: The intrahepatic bile ducts are normal in caliber with no dilatation. The common bile duct measures 3-4 mm in diameter, normal. No defect is evident within it to suggest stone. Pancreatic duct is unremarkable with no dilatation seen. No additional contributory finding. IMPRESSION: No biliary dilatation and no evidence for choledocholithiasis. Interpreted by: Thao Mijares MD Preliminary Report By: Thao Mijares MD Electronically signed By Thao Mijares MD Dictated Date: 07/15/2024 4:25:56 PM Prelim Date: 07/15/2024 4:28:26 PM Sign Date: 07/15/2024 4:28:26 PM Ordering Provider: VONDA MUELLER [facility] Bilirubin directOrdered By: Vonda Mueller on 07-14-2024 Bilirubin.direct [Mass/Vol] 0.15 mg/dL 0.00-0.30 [facility] Bilirubin, totalOrdered By: Vonda Mueller on 07-14-2024 Bilirubin [Mass/Vol] 0.34 mg/dL 0.00-1.30 [facility] Gamma glutamyl transferase ( GGT) measurementOrdered By: Vonda Mueller on 07-14-2024 Amylase [Catalytic activity/Vol] 103 U/L High 0-60 [facility] Comment on above: Performed at: - [address] [id number] Director: Jorgito Cunningham PhD, Phone: [phone] Iron measurement (mass/mass) Ordered By: Vonda Mueller on 07-14-2024 Iron (Unsp spec) [Mass/Mass] 119 ug/dL 50-170 [facility] Iron+Iron Binding Capacityon 07-14-2024 Iron [Mass/Vol] 119 ug/dL Normal 50-170 [facility] Comment on above: Performed By: #### L 500.3400, L501.5101, L501.5200, L503.6030, L503.0106 ####[facility] [address] [place], [address] IRON SATURATION 34.0 Normal 13-59 [facility] Comment on above: Performed By: #### L 500.3400, L501.5101, L501.5200, L503.6030, L503.0106 ####[facility] [address] [place], [address] TIBC 347 ug/dL Normal 250-450 [facility] Comment on above: Performed By: #### L 500.3400, L501.5101, L501.5200, L503.6030, L503.0106 ####[facility] [address] [place], [address] UIBC 228 ug/dL Normal 228-428 [facility] Comment on above: Performed By: #### L 500.3400, L501.5101, L501.5200, L503.6030, L503.0106 ####[facility] [address] [place], [address] Laboratory - Chemistry and C hemistry - challengeOrdered By: Vonda Mueller on 07-14-2024 AST [Catalytic activity/Vol] 38 U/L High <32 [facility] Liver Profileon 07-14-2024 Albumin [Mass/Vol] 4.6 g/dL Normal 3.5-5.0 [facility] Comment on above: Performed By: #### L 500.3400, L501.5101, L501.5200, L503.6030, L503.0106 ####[facility] [address] [place], [address] ALK PHOS 100 U/L Normal 35-104 [facility] Comment on above: Performed By: #### L 500.3400, L501.5101, L501.5200, L503.6030, L503.0106 ####[facility] [address] [place], [address] ALT [Catalytic activity/Vol] 61 U/L High <=34 [facility] Comment on above: Performed By: #### L 500.3400, L501.5101, L501.5200, L503.6030, L503.0106 ####[facility] [address] [place], [address] AST [Catalytic activity/Vol] 38 U/L High <=31 [facility] Comment on above: Performed By: #### L 500.3400, L501.5101, L501.5200, L503.6030, L503.0106 ####[facility] [address] [place], [address] Bilirubin [Mass/Vol] 0.34 mg/dL Normal 0.00-1.30 [facility] Comment on above: Performed By: #### L 500.3400, L501.5101, L501.5200, L503.6030, L503.0106 ####[facility] [address] [place], [address] Bilirubin.direct [Mass/Vol] 0.15 mg/dL Normal 0.00-0.30 [facility] Comment on above: Performed By: #### L 500.3400, L501.5101, L501.5200, L503.6030, L503.0106 ####[facility] [address] [place], [address] Globulin (S) [Mass/Vol] 2.3 g/dL Normal 2.2-4.2 [facility] Comment on above: Performed By: #### L 500.3400, L501.5101, L501.5200, L503.6030, L503.0106 ####[facility] [address] [place], [address] T PROT 6.9 g/dL Normal 5.9-8.4 [facility] Comment on above: Performed By: #### L 500.3400, L501.5101, L501.5200, L503.6030, L503.0106 ####[facility] [address] [place], [address] Magnesiumon 07-14-2024 Magnesium [Mass/Vol] 2.1 mg/dL Normal 1.5-2.2 [facility] Comment on above: Performed By: #### L 500.3400, L501.5101, L501.5200, L503.6030, L503.0106 ####[facility] [address] [place], [address] Magnesium measurement (mass/ volume)Ordered By: Vonda Mueller on 07-14-2024 Magnesium (Unsp spec) [Mass/Vol] 2.1 mg/dL 1.5-2.2 [facility] No Panel InformationOrdered By: Vonda Mueller on 07-14-2024 Unsaturated Iron Binding Capacity 228 ug/dL 228-428 [facility] Serum globulin measurementOr dered By: Vonda Mueller on 07-14-2024 Globulin (S) [Mass/Vol] 2.3 g/dL 2.2-4.2 [facility] Serum or plasma alanine valencia otransferase (ALT) measurementOrdered By: Vonda Mueller on 07-14-2024 ALT [Catalytic activity/Vol] 61 U/L High <35 [facility] Serum or plasma albumin ana maria urement (mass/volume)Ordered By: Vonda Mueller on 07-14-2024 Albumin [Mass/Vol] 4.6 g/dL 3.5-5.0 [facility] Serum or plasma alkaline juana sphatase measurementOrdered By: Vonda Mueller on 07-14-2024 ALP [Catalytic activity/Vol] 100 U/L 35-104 [facility] Serum or plasma iron saturat ion measurement (mass fraction)Ordered By: Vonda Mueller on 07-14-2024 Iron saturation [Mass fraction] 34.0 % 13-59 [facility] Total proteinOrdered By: Brenda Mueller on 07-14-2024 Protein [Mass/Vol] 6.9 g/dL 5.9-8.4 [facility] Vitamin B12on 07-14-2024 Cobalamin (Vitamin B12) [Mass/Vol] 879 pg/mL Normal 180-914 [facility] Comment on above: Performed By: #### L 500.3400, L501.5101, L501.5200, L503.6030, L503.0106 ####[facility] [address] [place], [address] Vitamin B12 ser/plasOrdered By: Vonda Mueller on 07-14-2024 Cobalamin (Vitamin B12) [Mass/Vol] 879 pg/mL 180-914 [facility] L3410.9992on 07-07-2024 [facility] Misc. COMMENT Normal . [facility] Comment on above: Order Comment: [id number] 9ELF Result Comment: Test Ordered: [id number] Enhanced Liver Fibrosis (ELF) ELF(TM) Score 9.04 BN Reference Range: <9.80 ELF(TM) Score Interpretation: Risk cut-offs to assess the likelihood of progression to cirrhosis and liver-related clinical events within 3.9 years following baseline ELF score (IQR: 14.0-22.4 months)*: Lower risk < 9.80 Mid risk 9.80 - 11.29 Higher risk >11.29 Note: The ELF(TM) Score is a unitless numerical value. *Howard SA, Truman VW, Okbess T, et al. Selonsertib for patients with bridging fibrosis or compensated cirrhosis due to COELHO: Results from randomized phase III STELLAR trials. J Hepatol. 2020 Aug;73(1):26-39. Performed at: [facility] [address] [id number] Chief Security Officer: Montserrat Gibbons MD, Phone: [phone] Performed at: [facility] [address] [id number] Chief Security Officer: Jorgito Cunningham PhD, Phone: [phone] Performed By: #### L 3890.6202, L3410.9992, L3100.0460, L500.4100, L3890.6301, L3890.6102, L500.2500, L3300.1200, L800.1280, L803.2200, L100.0100, L503.6030, L3100.0300, L503.6550, L501.9985 ####[facility] [address] [place], [address] ANCAon 07-01-2024 Atypical pANCA <1:20 Normal Neg:<1:20 [facility] Comment on above: Result Comment: The atypical pANCA pattern has been observed in a significant percentage of patients with ulcerative colitis, primary sclerosing cholangitis and autoimmune hepatitis. Performed By: #### L 3890.6202, L3410.9992, L3100.0460, L500.4100, L3890.6301, L3890.6102, L500.2500, L3300.1200, L800.1280, L803.2200, L100.0100, L503.6030, L3100.0300, L503.6550, L501.9985 ####[facility] [address] [place], [place], [address] Cytoplasmic Ab <1:20 Normal Neg:<1:20 [facility] Comment on above: Performed By: #### L 3890.6202, L3410.9992, L3100.0460, L500.4100, L3890.6301, L3890.6102, L500.2500, L3300.1200, L800.1280, L803.2200, L100.0100, L503.6030, L3100.0300, L503.6550, L501.9985 ####[facility] [id number] [facility]. [place], [place], [id number] Perinuclear Ab. <1:20 Normal Neg:<1:20 [facility] Comment on above: Result Comment: The presence of positive fluorescence exhibiting P-ANCA or C-ANCA patterns alone is not specific for the diagnosis of David's Granulomatosis (WG) or microscopic polyangiitis. Decisions about treatment should not be based solely on ANCA IFA results. The [employer] Consensus recommends follow up testing of positive sera with both TX- 3 and MPO-ANCA enzyme immunoassays. As many as 5% serum samples are positive only by EIA. Ref. AM J Clin Pathol 1999;111:507-513. Performed By: #### L 3890.6202, L3410.9992, L3100.0460, L500.4100, L3890.6301, L3890.6102, L500.2500, L3300.1200, L800.1280, L803.2200, L100.0100, L503.6030, L3100.0300, L503.6550, L501.9985 ####[facility] [address] [facility] [place], [address] Anti-Mitochondrial ABon 05-2 ANTIMITOCHON AB <20.0 Normal 0.0-20.0 [facility] Comment on above: Result Comment: Nega tive 0.0 - 20.0 Equivocal 20.1 - 24.9 Positive >24.9 Mitochondrial (M2) Antibodies are found in 90-96% of patients with primary biliary cirrhosis. Performed at: [address] [id number] Chief Security Officer: Jorgito Cunningham PhD, Phone: [phone] Performed By: #### L 3890.6202, L3410.9992, L3100.0460, L500.4100, L3890.6301, L3890.6102, L500.2500, L3300.1200, L800.1280, L803.2200, L100.0100, L503.6030, L3100.0300, L503.6550, L501.9985 ####[facility] [address] [place], [address] Anti-Smooth Muscle ABSon ANTISMOOTH MUSC 5 Units Normal 0-19 [facility] Comment on above: Result Comment: Nega tive 0 - 19 Weak positive 20 - 30 Moderate to strong positive >30 Actin Antibodies are found in 52-85% of patients with autoimmune hepatitis or chronic active hepatitis and in 22% of patients with primary biliary cirrhosis. Performed By: #### L 3890.6202, L3410.9992, L3100.0460, L500.4100, L3890.6301, L3890.6102, L500.2500, L3300.1200, L800.1280, L803.2200, L100.0100, L503.6030, L3100.0300, L503.6550, L501.9985 ####[facility] [id number] [place], [place], [id number] Hepatitis A AB, Totalon 06-10 HEPATITIS A,TOT Negative Normal Negative [facility] Comment on above: Result Comment: Comm ent: The HAV total antibody assay detects both IgG and IgM but does not differentiate between them. A negative result suggests susceptibility to infection. A positive result could be due to vaccination, previously resolved infection or active infection. Testing for HAV IgM should be performed if active HAV infection is suspected. [employer] offers profiles that will automatically reflex positive HAV total antibody results to IgM (e.g., panel #[id number] HAV Antibody w/ Rfx). Performed at: [address] [id number] Chief Security Officer: Jorgito Cunningham PhD, Phone: [phone] Performed By: #### L 3890.6202, L3410.9992, L3100.0460, L500.4100, L3890.6301, L3890.6102, L500.2500, L3300.1200, L800.1280, L803.2200, L100.0100, L503.6030, L3100.0300, L503.6550, L501.9985 ####[facility] [address] [place], [address] Hepatitis B Core Ab Totalon 07-01-2024 HEP B CORE,TOT Negative Normal Negative [facility] Comment on above: Performed By: #### L 3890.6202, L3410.9992, L3100.0460, L500.4100, L3890.6301, L3890.6102, L500.2500, L3300.1200, L800.1280, L803.2200, L100.0100, L503.6030, L3100.0300, L503.6550, L501.9985 ####[facility] [address] [facility] [place], [address] Absolute lymphocyte countOrd ered By: Vonda Mueller on 06-30-2024 Lymphocytes Auto (Unsp spec) [#/Vol] 0.63 10*3/uL Low 0.83-4.51 [facility] Absolute neutrophil countOrd ered By: Vonda Mueller on 06-30-2024 Neutrophils (Bld) [#/Vol] 1.8 10*3/uL Low 2.0-7.7 [facility] Anion gap in Serum or Plasma Ordered By: Vonda Mueller on 06-30-2024 Anion gap [Moles/Vol] 12 mmol/L 5-15 [facility] Automated lymphocyte count a s percentage of total leukocytesOrdered By: Vonda Mueller on 06-30-2024 Lymphocytes/100 WBC Auto (Unsp spec) 21.4 % 19-41 [facility] BUN/creatinine ratioOrdered By: Vonda Mueller on 06-30-2024 Urea nitrogen/Creatinine [Mass ratio] 18.0 mg/mg 11-28 [facility] Basic Metabolic Profile (BMP )on 06-30-2024 BUN/CRE 18.0 RATIO Normal 11-28 [facility] Comment on above: Performed By: #### L 3890.6202, L3410.9992, L3100.0460, L500.4100, L3890.6301, L3890.6102, L500.2500, L3300.1200, L800.1280, L803.2200, L100.0100, L503.6030, L3100.0300, L503.6550, L501.9985 #### [facility] [address] [place], [address] Calcium [Mass/Vol] 9.4 mg/dL Normal 7.6-11.0 [facility] Comment on above: Performed By: #### L 3890.6202, L3410.9992, L3100.0460, L500.4100, L3890.6301, L3890.6102, L500.2500, L3300.1200, L800.1280, L803.2200, L100.0100, L503.6030, L3100.0300, L503.6550, L501.9985 #### [facility] [address] [place], [place], [id number] ([phone]) Chloride [Moles/Vol] 102 mmol/L Normal 98-108 [facility] Comment on above: Performed By: #### L 3890.6202, L3410.9992, L3100.0460, L500.4100, L3890.6301, L3890.6102, L500.2500, L3300.1200, L800.1280, L803.2200, L100.0100, L503.6030, L3100.0300, L503.6550, L501.9985 #### [facility] [address] [place], [place], [id number] CO2 [Moles/Vol] 25.4 mmol/L Normal 21.0-32.0 [facility] Comment on above: Performed By: #### L 3890.6202, L3410.9992, L3100.0460, L500.4100, L3890.6301, L3890.6102, L500.2500, L3300.1200, L800.1280, L803.2200, L100.0100, L503.6030, L3100.0300, L503.6550, L501.9985 #### [facility] [address] [facility] [place], [address] (304) Creatinine [Mass/Vol] 0.87 mg/dL Normal 0.70-1.20 [facility] Comment on above: Performed By: #### L 3890.6202, L3410.9992, L3100.0460, L500.4100, L3890.6301, L3890.6102, L500.2500, L3300.1200, L800.1280, L803.2200, L100.0100, L503.6030, L3100.0300, L503.6550, L501.9985 #### [facility] [address] [facility] [place], [address] GAP 12 Normal 5-15 [facility] Comment on above: Performed By: #### L 3890.6202, L3410.9992, L3100.0460, L500.4100, L3890.6301, L3890.6102, L500.2500, L3300.1200, L800.1280, L803.2200, L100.0100, L503.6030, L3100.0300, L503.6550, L501.9985 #### [facility] [address] [facility] [place], [address] GFR/1.73 sq M.predicted among non-blacks MDRD (S/P/Bld) [Vol rate/Area] 87 mL/min/{1.73_m2} Normal >60 [facility] Comment on above: Result Comment: mL/m in/1.73m2 CKD-EPI Creatinine Equation (2020) Performed By: #### L 3890.6202, L3410.9992, L3100.0460, L500.4100, L3890.6301, L3890.6102, L500.2500, L3300.1200, L800.1280, L803.2200, L100.0100, L503.6030, L3100.0300, L503.6550, L501.9985 #### [facility] [address] [place], [place], [phone] ([phone]) Glucose [Mass/Vol] 100 mg/dL High 70-99 [facility] Comment on above: Performed By: #### L 3890.6202, L3410.9992, L3100.0460, L500.4100, L3890.6301, L3890.6102, L500.2500, L3300.1200, L800.1280, L803.2200, L100.0100, L503.6030, L3100.0300, L503.6550, L501.9985 #### [facility] [address] [place], [place], [phone] Potassium [Moles/Vol] 4.2 mmol/L Normal 3.3-5.1 [facility] Comment on above: Performed By: #### L 3890.6202, L3410.9992, L3100.0460, L500.4100, L3890.6301, L3890.6102, L500.2500, L3300.1200, L800.1280, L803.2200, L100.0100, L503.6030, L3100.0300, L503.6550, L501.9985 #### [facility] [address] [place], [place], [phone] (516) Sodium [Moles/Vol] 139 mmol/L Normal 133-145 [facility] Comment on above: Performed By: #### L 3890.6202, L3410.9992, L3100.0460, L500.4100, L3890.6301, L3890.6102, L500.2500, L3300.1200, L800.1280, L803.2200, L100.0100, L503.6030, L3100.0300, L503.6550, L501.9985 #### [facility] [address] [place], [place], [id number] Urea nitrogen [Mass/Vol] 16 mg/dL Normal 4-19 [facility] Comment on above: Performed By: #### L 3890.6202, L3410.9992, L3100.0460, L500.4100, L3890.6301, L3890.6102, L500.2500, L3300.1200, L800.1280, L803.2200, L100.0100, L503.6030, L3100.0300, L503.6550, L501.9985 #### [facility] [address] [facility] [place], [address] Basophil percentageOrdered B y: Vonda Mueller on 06-30-2024 Basophils/100 WBC (Bld) 0.7 % 0-1 [facility] CBC W/Diff, Automatedon 06-10 Absolute Lymph 0.63 X10 3/uL Low 0.83-4.51 [facility] Comment on above: Performed By: #### L 3890.6202, L3410.9992, L3100.0460, L500.4100, L3890.6301, L3890.6102, L500.2500, L3300.1200, L800.1280, L803.2200, L100.0100, L503.6030, L3100.0300, L503.6550, L501.9985 #### [facility] [address] [place], [address] Absolute Neut 1.8 X10 3/uL Low 2.0-7.7 [facility] Comment on above: Performed By: #### L 3890.6202, L3410.9992, L3100.0460, L500.4100, L3890.6301, L3890.6102, L500.2500, L3300.1200, L800.1280, L803.2200, L100.0100, L503.6030, L3100.0300, L503.6550, L501.9985 #### [facility] [address] [place], [address] Basophils/100 WBC (Bld) 0.7 % Normal 0-1 [facility] Comment on above: Performed By: #### L 3890.6202, L3410.9992, L3100.0460, L500.4100, L3890.6301, L3890.6102, L500.2500, L3300.1200, L800.1280, L803.2200, L100.0100, L503.6030, L3100.0300, L503.6550, L501.9985 #### [facility] [address] [place], [address] Eosinophils/100 WBC (Bld) 3.4 % Normal 0-5 [facility] Comment on above: Performed By: #### L 3890.6202, L3410.9992, L3100.0460, L500.4100, L3890.6301, L3890.6102, L500.2500, L3300.1200, L800.1280, L803.2200, L100.0100, L503.6030, L3100.0300, L503.6550, L501.9985 #### [facility] [address] [place], [address] Erythrocyte distribution width (RBC) [Ratio] 13.3 % Normal 11.6-14.6 [facility] Comment on above: Performed By: #### L 3890.6202, L3410.9992, L3100.0460, L500.4100, L3890.6301, L3890.6102, L500.2500, L3300.1200, L800.1280, L803.2200, L100.0100, L503.6030, L3100.0300, L503.6550, L501.9985 #### [facility] [address] [place], [address] Hematocrit (Bld) [Volume fraction] 39.9 % Normal 37-47 [facility] Comment on above: Performed By: #### L 3890.6202, L3410.9992, L3100.0460, L500.4100, L3890.6301, L3890.6102, L500.2500, L3300.1200, L800.1280, L803.2200, L100.0100, L503.6030, L3100.0300, L503.6550, L501.9985 #### [facility] [address] [facility] [place], [address] Hemoglobin (Bld) [Mass/Vol] 13.8 g/dL Normal 12.0-15.0 [facility] Comment on above: Performed By: #### L 3890.6202, L3410.9992, L3100.0460, L500.4100, L3890.6301, L3890.6102, L500.2500, L3300.1200, L800.1280, L803.2200, L100.0100, L503.6030, L3100.0300, L503.6550, L501.9985 #### [facility] [address] [facility] [place], [address] IG% 0.300 Normal 0.0-0.9 [facility] Comment on above: Result Comment: IG% - Immature Granulocytes (promyelocytes, myelocytes and metamyelocytes) > 1% indicates that a LEFT SHIFT is Present. Performed By: #### L 3890.6202, L3410.9992, L3100.0460, L500.4100, L3890.6301, L3890.6102, L500.2500, L3300.1200, L800.1280, L803.2200, L100.0100, L503.6030, L3100.0300, L503.6550, L501.9985 #### [facility] [address] [place], [address] Lymphocytes/100 WBC (Bld) 21.4 % Normal 19-41 [facility] Comment on above: Performed By: #### L 3890.6202, L3410.9992, L3100.0460, L500.4100, L3890.6301, L3890.6102, L500.2500, L3300.1200, L800.1280, L803.2200, L100.0100, L503.6030, L3100.0300, L503.6550, L501.9985 #### [facility] [address] [facility] [place], [address] MCH (RBC) [Entitic mass] 34.9 pg High 27.0-32.0 [facility] Comment on above: Performed By: #### L 3890.6202, L3410.9992, L3100.0460, L500.4100, L3890.6301, L3890.6102, L500.2500, L3300.1200, L800.1280, L803.2200, L100.0100, L503.6030, L3100.0300, L503.6550, L501.9985 #### [facility] [address] [place], [address] MCHC (RBC) [Mass/Vol] 34.6 g/dL Normal 32-36 [facility] Comment on above: Performed By: #### L 3890.6202, L3410.9992, L3100.0460, L500.4100, L3890.6301, L3890.6102, L500.2500, L3300.1200, L800.1280, L803.2200, L100.0100, L503.6030, L3100.0300, L503.6550, L501.9985 #### [facility] [address] [place], [address] MCV (RBC) [Entitic vol] 101.0 fL High 81-99 [facility] Comment on above: Performed By: #### L 3890.6202, L3410.9992, L3100.0460, L500.4100, L3890.6301, L3890.6102, L500.2500, L3300.1200, L800.1280, L803.2200, L100.0100, L503.6030, L3100.0300, L503.6550, L501.9985 #### [facility] [address] [facility] [place], [address] Monocytes/100 WBC (Bld) 12.9 % High 0-10 [facility] Comment on above: Performed By: #### L 3890.6202, L3410.9992, L3100.0460, L500.4100, L3890.6301, L3890.6102, L500.2500, L3300.1200, L800.1280, L803.2200, L100.0100, L503.6030, L3100.0300, L503.6550, L501.9985 #### [facility] [address] [place], [address] Neutrophils/100 WBC (Bld) 61.3 % Normal 47-70 [facility] Comment on above: Performed By: #### L 3890.6202, L3410.9992, L3100.0460, L500.4100, L3890.6301, L3890.6102, L500.2500, L3300.1200, L800.1280, L803.2200, L100.0100, L503.6030, L3100.0300, L503.6550, L501.9985 #### [facility] [address] [facility] [place], [place], [id number] (177) Nucleated RBC (Bld) [#/Vol] 0 10*3/uL Normal 0-5 [facility] Comment on above: Performed By: #### L 3890.6202, L3410.9992, L3100.0460, L500.4100, L3890.6301, L3890.6102, L500.2500, L3300.1200, L800.1280, L803.2200, L100.0100, L503.6030, L3100.0300, L503.6550, L501.9985 #### [facility] [address] [place], [address] (018) Platelet mean volume (Bld) [Entitic vol] 10.4 fL Normal 6.2-12.0 [facility] Comment on above: Performed By: #### L 3890.6202, L3410.9992, L3100.0460, L500.4100, L3890.6301, L3890.6102, L500.2500, L3300.1200, L800.1280, L803.2200, L100.0100, L503.6030, L3100.0300, L503.6550, L501.9985 #### [facility] [address] [facility] [place], [address] (755) Platelets (Bld) [#/Vol] 170 10*3/uL Normal 150-450 [facility] Comment on above: Performed By: #### L 3890.6202, L3410.9992, L3100.0460, L500.4100, L3890.6301, L3890.6102, L500.2500, L3300.1200, L800.1280, L803.2200, L100.0100, L503.6030, L3100.0300, L503.6550, L501.9985 #### [facility] [address] [place], [address] (545) RBC (Bld) [#/Vol] 3.95 10*6/uL Low 4.2-5.4 [facility] Comment on above: Performed By: #### L 3890.6202, L3410.9992, L3100.0460, L500.4100, L3890.6301, L3890.6102, L500.2500, L3300.1200, L800.1280, L803.2200, L100.0100, L503.6030, L3100.0300, L503.6550, L501.9985 #### [facility] [address] [place], [address] (135) RDW SD 49.8 fl High 35.1-43.9 [facility] Comment on above: Performed By: #### L 3890.6202, L3410.9992, L3100.0460, L500.4100, L3890.6301, L3890.6102, L500.2500, L3300.1200, L800.1280, L803.2200, L100.0100, L503.6030, L3100.0300, L503.6550, L501.9985 #### [facility] [address] [place], [place], [phone] WBC (Bld) [#/Vol] 3.0 10*3/uL Low 4.4-11.0 [facility] Comment on above: Performed By: #### L 3890.6202, L3410.9992, L3100.0460, L500.4100, L3890.6301, L3890.6102, L500.2500, L3300.1200, L800.1280, L803.2200, L100.0100, L503.6030, L3100.0300, L503.6550, L501.9985 #### [facility] [address] [place], [place], [id number] Calculated very low density lipoprotein (VLDL) cholesterol measurementOrdered By: Vonda Mueller on 06-30-2024 Calculated very low density lipoprotein (VLDL) cholesterol measurement 20 mg/dL 5-40 [facility] Carbon dioxide, total [Moles /volume] in Central venous bloodOrdered By: Vonda Mueller on 06-30-2024 CO2 [Moles/Vol] 25.4 mmol/L 21.0-32.0 [facility] Chloride assayOrdered By: Tye Mueller on 06-30-2024 Chloride [Moles/Vol] 102 mmol/L 98-108 [facility] Eosinophil percentageOrdered By: Vonda Mueller on 06-30-2024 Eosinophils/100 WBC (Bld) 3.4 % 0-5 [facility] Erythrocyte distribution wid th ratioOrdered By: Vonda Mueller on 06-30-2024 Erythrocyte distribution width (RBC) [Ratio] 13.3 % 11.6-14.6 [facility] Erythrocyte distribution wid th standard deviationOrdered By: Vonda Mueller on 06-30-2024 Erythrocyte distribution width (RBC) [Ratio] 49.8 fl High 35.1-43.9 [facility] Ferritinon 06-30-2024 Ferritin [Mass/Vol] 176 ng/mL Normal 22-378 [facility] Comment on above: Performed By: #### L 3890.6202, L3410.9992, L3100.0460, L500.4100, L3890.6301, L3890.6102, L500.2500, L3300.1200, L800.1280, L803.2200, L100.0100, L503.6030, L3100.0300, L503.6550, L501.9985 #### [facility] [address] [place], [place], [id number] Glomerular filtration rate ( GFR) estimation/1.73 sq m using serum, plasma, or whole bOrdered By: Vonda Mueller on 06-30-2024 GFR/1.73 sq M.predicted among non-blacks MDRD (S/P/Bld) [Vol rate/Area] 87 mL/min/{1.73_m2} >60 [facility] Comment on above: mL/min/1.73m2 CKD-EP I Creatinine Equation (2020) Hematocrit Auto (Bld) [Volum e fraction]Ordered By: Vonda Mueller on 06-30-2024 Hematocrit (Bld) [Volume fraction] 39.9 % 37-47 [facility] Hemoglobin A1con 06-30-2024 HbA1c (Bld) [Mass fraction] 5.2 % Normal <=5.6 [facility] Comment on above: Result Comment: Norm al < 5.7 % Prediabetic 5.7 - 6.4 % Diabetic >or= 6.5 % Please note range changes. Performed By: #### L 3890.6202, L3410.9992, L3100.0460, L500.4100, L3890.6301, L3890.6102, L500.2500, L3300.1200, L800.1280, L803.2200, L100.0100, L503.6030, L3100.0300, L503.6550, L501.9985 ####[facility] [address] [place], [place], [address] Hemoglobin A1c percentageOrd ered By: Vonda Mueller on 06-30-2024 HbA1c (Bld) [Mass fraction] 5.2 % <5.7 [facility] Comment on above: Normal < 5.7 % Predi abetic 5.7 - 6.4 % Diabetic >or= 6.5 % Please note range changes. Hemoglobin measurementOrdere d By: Vonda Mueller on 06-30-2024 Hemoglobin (Bld) [Mass/Vol] 13.8 g/dL 12.0-15.0 [facility] Hepatitis B Surface Antibody on 06-30-2024 HEP B Surf Ab REAC Normal [facility] Comment on above: Result Comment: <8.5 mIU/mL: Non-Reactive 8.5<= x <11.5 mIU/mL: Indeterminate >=11.5 mIU/mL: Reactive Non Reactive: Inconsistent with immunity less than <10 mIU/mL Reactive: Consistent with immunity greater than or equal to 10 mIU/mL Performed By: #### L 3890.6202, L3410.9992, L3100.0460, L500.4100, L3890.6301, L3890.6102, L500.2500, L3300.1200, L800.1280, L803.2200, L100.0100, L503.6030, L3100.0300, L503.6550, L501.9985 #### [facility] [address] [place], [address] Hepatitis C Antibodyon 06-30 Hepatitis C Ab Non-Reactive Normal Nonreactive [facility] Comment on above: Result Comment: Reac tive: Presumptive evidence of antibodies to HCV. Follow CDC recommendations for supplemental testing. Non-Reactive: Antibodies to HCV were not detected; does not exclude the possibility of exposure to HCV Reactive Results are presumptive evidence of antibodies to HCV. Follow CDC recommendations for supplemental testing. Order confirmation testing: HCV Quant by PCR testing - HCVPCR #[id number] Non Reactive: < 0.8 Equivocal: >/= 0.8 to < 1.0 Reactive: >/= 1.0 The CDC requires that a reactive/equivocal HCV antibody result be sent out for confirmation. HCV Quant by PCR testing. Performed By: #### L 3890.6202, L3410.9992, L3100.0460, L500.4100, L3890.6301, L3890.6102, L500.2500, L3300.1200, L800.1280, L803.2200, L100.0100, L503.6030, L3100.0300, L503.6550, L501.9985 #### [facility] [address] [facility] [place], [address] Immature granulocytes/100 WB C Auto (Bld)Ordered By: Vonda Mueller on 06-30-2024 Immature granulocytes/100 WBC (Bld) 0.300 % 0.0-0.9 [facility] Comment on above: IG% - Immature Granu locytes (promyelocytes, myelocytes and metamyelocytes) > 1% indicates that a LEFT SHIFT is Present. Iron measurement (mass/mass) Ordered By: Vonda Mueller on 06-30-2024 Iron (Unsp spec) [Mass/Mass] 172 ug/dL High 50-170 [facility] Iron+Iron Binding Capacityon 06-30-2024 Iron [Mass/Vol] 172 ug/dL High 50-170 [facility] Comment on above: Performed By: #### L 3890.6202, L3410.9992, L3100.0460, L500.4100, L3890.6301, L3890.6102, L500.2500, L3300.1200, L800.1280, L803.2200, L100.0100, L503.6030, L3100.0300, L503.6550, L501.9985 #### [facility] [address] [place], [address] IRON SATURATION 48.0 Normal 13-59 [facility] Comment on above: Performed By: #### L 3890.6202, L3410.9992, L3100.0460, L500.4100, L3890.6301, L3890.6102, L500.2500, L3300.1200, L800.1280, L803.2200, L100.0100, L503.6030, L3100.0300, L503.6550, L501.9985 #### [facility] [address] [place], [place], [id number] TIBC 359 ug/dL Normal 250-450 [facility] Comment on above: Performed By: #### L 3890.6202, L3410.9992, L3100.0460, L500.4100, L3890.6301, L3890.6102, L500.2500, L3300.1200, L800.1280, L803.2200, L100.0100, L503.6030, L3100.0300, L503.6550, L501.9985 #### [facility] [address] [place], [place], [id number] UIBC 187 ug/dL Low 228-428 [facility] Comment on above: Performed By: #### L 3890.6202, L3410.9992, L3100.0460, L500.4100, L3890.6301, L3890.6102, L500.2500, L3300.1200, L800.1280, L803.2200, L100.0100, L503.6030, L3100.0300, L503.6550, L501.9985 #### [facility] [address] [place], [place], [id number] L3890.6102on 06-30-2024 HEP B Surf Ag Non-Reactive Normal Nonreactive [facility] Comment on above: Result Comment: Reac tive: Presumptive evidence of HBV. Repeatedly reactive samples must be confirmed using a neutralization test ([employer] HBsAg Confirmatory Test) Non-Reactive: HBsAg not detected; does not exclude the possibility of exposure to HBV Performed By: #### L 3890.6202, L3410.9992, L3100.0460, L500.4100, L3890.6301, L3890.6102, L500.2500, L3300.1200, L800.1280, L803.2200, L100.0100, L503.6030, L3100.0300, L503.6550, L501.9985 #### [facility] [address], [place], [id number] LDL calc ser/plasOrdered By: Vonda Mueller on 06-30-2024 Cholesterol in LDL [Mass/Vol] 121 mg/dL [facility] Comment on above: Qqaqvbbtsi=297-758 m g/dL & Higher Ohvg=449 mg/dL or greater Laboratory - Microbiology an d Antimicrobial susceptibilityOrdered By: Vonda Mueller on 06-30-2024 HBV surface Ag Ql (S) Non-Reactive Nonreactive [facility] Comment on above: Reactive: Presumptiv e evidence of HBV. Repeatedly reactive samples must be confirmed using a neutralization test ([employer] HBsAg Confirmatory Test)Non-Reactive: HBsAg not detected; does not exclude the possibility of exposure to HBV Lipid Profileon 06-30-2024 CHOL:HDL 2.95 Normal [facility] Comment on above: Performed By: #### L 3890.6202, L3410.9992, L3100.0460, L500.4100, L3890.6301, L3890.6102, L500.2500, L3300.1200, L800.1280, L803.2200, L100.0100, L503.6030, L3100.0300, L503.6550, L501.9985 ####[facility] [id number] [facility] [place], [address] Cholesterol [Mass/Vol] 214 mg/dL High <=200 [facility] Comment on above: Result Comment: Chol esterol level, Desirable <200 mg/dL Borderline high cholesterol 200-239 mg/dL High cholesterol >=240 mg/dL Recommendations of the NCEP Adult Treatment Panel for the following risk-cutoff thresholds for the [place] population. Performed By: #### L 3890.6202, L3410.9992, L3100.0460, L500.4100, L3890.6301, L3890.6102, L500.2500, L3300.1200, L800.1280, L803.2200, L100.0100, L503.6030, L3100.0300, L503.6550, L501.9985 ####[facility] [id number] [facility] [place], [address] Cholesterol in HDL [Mass/Vol] 73 mg/dL Normal [facility] Comment on above: Result Comment: Aria onal Cholesterol Education Program (NCEP) guidelines: <40 mg/dL: Low HDL-cholesterol (major risk factor for CHD) >= 60 mg/dL: High HDL-cholesterol (negative risk factor for CHD) HDL-cholesterol is affected by a number of factors, e.g. smoking, exercise, hormones, sex and age. Performed By: #### L 3890.6202, L3410.9992, L3100.0460, L500.4100, L3890.6301, L3890.6102, L500.2500, L3300.1200, L800.1280, L803.2200, L100.0100, L503.6030, L3100.0300, L503.6550, L501.9985 ####[facility] [id number] [place], [address] Cholesterol in LDL [Mass/Vol] 121 mg/dL Normal [facility] Comment on above: Result Comment: Bord gmtgmd=795-338 mg/dL Higher Sdad=142 mg/dL or greater Performed By: #### L 3890.6202, L3410.9992, L3100.0460, L500.4100, L3890.6301, L3890.6102, L500.2500, L3300.1200, L800.1280, L803.2200, L100.0100, L503.6030, L3100.0300, L503.6550, L501.9985 ####[facility] [id number] [place], [address] Cholesterol in VLDL [Mass/Vol] 20 mg/dL Normal 5-40 [facility] Comment on above: Performed By: #### L 3890.6202, L3410.9992, L3100.0460, L500.4100, L3890.6301, L3890.6102, L500.2500, L3300.1200, L800.1280, L803.2200, L100.0100, L503.6030, L3100.0300, L503.6550, L501.9985 ####[facility] [id number] [place], [address] Triglyceride [Mass/Vol] 101 mg/dL Normal [facility] Comment on above: Result Comment: The drugs N-Acetylcysteine and Metamizole may falsely depress this assay. Normal range: <150 mg/dL Borderline High: 150-199 mg/dL High: 200-499 mg/dL Very High: >500 mg/dL Performed By: #### L 3890.6202, L3410.9992, L3100.0460, L500.4100, L3890.6301, L3890.6102, L500.2500, L3300.1200, L800.1280, L803.2200, L100.0100, L503.6030, L3100.0300, L503.6550, L501.9985 ####[facility] [address] [place], [address] MCV (mean corpuscular volume ) determinationOrdered By: Vonda Mueller on 06-30-2024 MCV (RBC) [Entitic vol] 101.0 fL High 81-99 [facility] Mean corpuscular hemoglobin (MCH) determinationOrdered By: Vonda Mueller on 06-30-2024 MCH (RBC) [Entitic mass] 34.9 pg High 27.0-32.0 [facility] Mean corpuscular hemoglobin concentration (MCHC) determinationOrdered By: Vonda Mueller on 06-30-2024 MCHC (RBC) [Mass/Vol] 34.6 g/dL 32-36 [facility] Mean platelet volume determi nationOrdered By: Vonda Mueller on 06-30-2024 Platelet mean volume (Bld) [Entitic vol] 10.4 fL 6.2-12.0 [facility] Monocyte percentageOrdered B y: Vonda Mueller on 06-30-2024 Monocytes/100 WBC (Bld) 12.9 % High 0-10 [facility] Neutrophil percentageOrdered By: Vonda Mueller on 06-30-2024 Neutrophils/100 WBC (Bld) 61.3 % 47-70 [facility] No Panel InformationOrdered By: Vonda Mueller on 06-30-2024 Unsaturated Iron Binding Capacity 187 ug/dL Low 228-428 [facility] Nucleated red blood cell per centageOrdered By: Vonda Mueller on 06-30-2024 Nucleated RBC/100 WBC (Bld) [Ratio] 0 % 0-5 [facility] Platelet countOrdered By: Tye Mueller on 06-30-2024 Platelets (Bld) [#/Vol] 170 10*3/uL 150-450 [facility] Potassium measurement (mass/ volume)Ordered By: Vonda Mueller on 06-30-2024 Potassium (Unsp spec) [Mass/Vol] 4.2 mmol/L 3.3-5.1 [facility] RBC Auto (Bld) [#/Vol]Ordere d By: Vonda Mueller on 06-30-2024 RBC (Bld) [#/Vol] 3.95 10*6/uL Low 4.2-5.4 [facility] Screening total cholesterol/ high density lipoprotein (HDL) cholesterol ratioOrdered By: Vonda Mueller on 06-30-2024 Cholesterol.total/Chol esterol in HDL [Mass ratio] 2.95 {ratio} [facility] Serum classic neutrophil cyt oplasmic antibody assay (units/volume)Ordered By: Vonda Mueller on 06-30-2024 Neutrophil cytoplasmic Ab.classic Qn (S) <1:20 titer Neg:<1:20 [facility] Serum creatinine measurement (mass/volume)Ordered By: Vonda Mueller on 06-30-2024 Creatinine [Mass/Vol] 0.87 mg/dL 0.70-1.20 [facility] Serum glucose measurement (m ass/volume)Ordered By: Vonda Mueller on 06-30-2024 Glucose [Mass/Vol] 100 mg/dL High 70-99 [facility] Serum hepatitis B virus core antibody detectionOrdered By: Vonda Mueller on 06-30-2024 HBV core Ab Ql (S) Negative Negative [facility] Serum hepatitis B virus surf luisito antibody detectionOrdered By: Vonda Mueller on 06-30-2024 HBV surface Ab Ql (S) REAC [facility] Comment on above: <8.5 mIU/mL: Non-Wendie ctive8.5<= x <11.5 mIU/mL: Indeterminate>=11.5 mIU/mL: Reactive Non Reactive: Inconsistent with immunity less than <10 mIU/mL Reactive: Consistent with immunity greater than or equal to 10 mIU/mL Serum mitochondria antibody detectionOrdered By: Vonda Mueller on 06-30-2024 Mitochondria Ab Ql (S) <20.0 Units 0.0-20.0 [facility] Comment on above: Negative 0.0 - 20.0 Equivocal 20.1 - 24.9 Positive >24.9Mitochondrial (M2) Antibodies are found in 90-96% ofpatients with primary biliary cirrhosis.Performed at: [facility] [employer] [address] [id number] Director: Jorgito Cunningham PhD, Phone: [phone] Serum or plasma actin IgG an tibody assay (units/volume)Ordered By: Vonda Mueller on 06-30-2024 Actin IgG Qn 5 Units 0-19 [facility] Comment on above: Negative 0 - 19 Weak positive 20 - 30 Moderate to strong positive >30 Actin Antibodies are found in 52-85% of patients with autoimmune hepatitis or chronic active hepatitis and in 22% of patients with primary biliary cirrhosis. Serum or plasma calcium ana maria urement (mass/volume)Ordered By: Vonda Mueller on 06-30-2024 Calcium [Mass/Vol] 9.4 mg/dL 7.6-11.0 [facility] Serum or plasma cholesterol in HDL measurement (mass/volume)Ordered By: Vonda Mueller on 06-30-2024 Cholesterol in HDL [Mass/Vol] 73 mg/dL >40 [facility] Comment on above: National Cholesterol Education Program (NCEP) guidelines:<40 mg/dL: Low HDL-cholesterol (major risk factor for CHD)>= 60 mg/dL: High HDL-cholesterol (negative risk factor for CHD)HDL-cholesterol is affected by a number of factors, e.g. smoking, exercise, hormones, sex and age. Serum or plasma cholesterol measurement (mass/volume)Ordered By: Vonda Mueller on 06-30-2024 Cholesterol [Mass/Vol] 214 mg/dL High <201 [facility] Comment on above: Cholesterol level, D esirable <200 mg/dLBorderline high cholesterol 200-239 mg/dLHigh cholesterol >=240 mg/dLRecommendations of the NCEP Adult Treatment Panel for the following risk-cutoff thresholds for the [place] population. Serum or plasma ferritin blank surement (mass/volume)Ordered By: Vonda Mueller on 06-30-2024 Ferritin [Mass/Vol] 176 ng/mL 22-378 [facility] Serum or plasma iron saturat ion measurement (mass fraction)Ordered By: Vonda Mueller on 06-30-2024 Iron saturation [Mass fraction] 48.0 % 13-59 [facility] Serum or plasma urea nitroge n measurement (mass/volume)Ordered By: Vonda Mueller on 06-30-2024 Urea nitrogen [Mass/Vol] 16 mg/dL 4-19 [facility] Serum perinuclear neutrophil cytoplasmic antibody titer by immunofluorescenceOrdered By: Vonda Mueller on 06-30-2024 Neutrophil cytoplasmic Ab.perinuclear IF (S) [Titer] <1:20 titer Neg:<1:20 [facility] Comment on above: The presence of posi tive fluorescence exhibiting P-ANCA orC-ANCA patterns alone is not specific for the diagnosis ofWegener's Granulomatosis (WG) or microscopic polyangiitis.Decisions about treatment should not be based solely onANCA IFA results. The International ANCA Group Consensusrecommends follow up testing of positive sera with both TX-3 and MPO-ANCA enzyme immunoassays. As many as 5% serumsamples are positive only by EIA. Ref. AM J Clin [id number];111:507-513. Sodium levelOrdered By: Amina Mueller on 06-30-2024 Sodium [Moles/Vol] 139 mmol/L 133-145 [facility] Triglycerides measurementOrd ered By: Vonda Mueller on 06-30-2024 Triglyceride [Mass/Vol] 101 mg/dL <199 [facility] Comment on above: The drugs N-Acetylcy steine and Metamizole may falsely depress this assay. Normal range: <150 mg/dLBorderline High: 150-199 mg/dLHigh: 200-499 mg/dLVery High: >500 mg/dL White blood cell (WBC) count Ordered By: Vonda Mueller on 06-30-2024 WBC (Bld) [#/Vol] 3.0 10*3/uL Low 4.4-11.0 [facility] Gastroenterology Visit Repor ton 06-29-2024 Gastroenterology Visit Report [facility] [address] [place] [address] OFFICE VISIT Date of Service: 06/29/24 MR#: [id number] Acct: [id number] Name: VIOLET HERNANDEZ Rep #: [id number] : 1985 Provider: MOY rodriguez Age/Sex: 38/F [facility] [facility] Status: Signed Intake Vital Signs 04/27/24 08:00 06/29/24 08:21 Height 4 ft 10 in 4 ft 10 in Weight: 135 lb 4 oz BMI 28.3 BP 107/72 Respiration 18 Pulse 60 Pulse Oximetry (%) 96 Oxygen Delivery Method room air Intake Visit Reasons: NAFLD MILD/MODERATE SCARRING Chief Complaint: FU ON SLEEP STUDY 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 Accompanied by: Self Is patient in pain?: No Allergies No Known Allergies Allergy (Verified 06/29/24 08:17) Medications ???Medication ???Instructions ???Recorded ???Confirmed ???Type multivitamin 1 tablet PO DAILY 02/16/19 5 History vitamin E (dl, acetate) 180 mg 400 units PO DAILY 03/26/20 History (400 unit) capsule docusate sodium 100 mg capsule 100 mg PO DAILY PRN constipation 1 02/09/23 06/29/24 History (Stool Softener) albuterol sulfate 90 mcg/actuation 2 inh inhalation Q4H PRN shortne ss 03/31/24 06/29/24 History aerosol inhaler of breath or wheezing cholecalciferol (vitamin D3) 50 50 mcg PO DAILY 03/31/24 06/29/24 History mcg (2,000 unit) tablet (D3 DOTS) estradiol 0.1 mg/24 hr semiweekly 1 patch topical SUWE 03/31/24 History transdermal patch (Shaye) fluvoxamine 100 mg tablet 100 mg PO DAILY 03/31/24 06/29/24 History metronidazole 1 % topical gel topical Perioral detmatitis 06/29/24 History vitamin B complex 1 tab PO QDAY 04/27/24 06/29/24 Hi story amoxicillin 875 mg tablet 875 mg PO BID #20 tabs 06/20/24 Rx Nurse's Note: Itches alot and is tired alot. Has a dull intermittent ache in URQ of abdomen. [facility] Medical History (Updated 06/29/24 @ 08:56 by Vonda Mueller NP-C) NICA (obstructive sleep apnea) Costochondritis COELHO (nonalcoholic steatohepatitis) Osteopenia Obesity (BMI 30.0-34.9) Abdominal pain Chronic diarrhea Preventative health care Depression Anxiety Cervical radiculopathy Hyperglycemia Encounter for vitamin deficiency screening Chronic neck pain Hypersomnolence Screening for thyroid disorder Health care maintenance Congestion of left ear Post-nasal drip Urinary frequency Nonrheumatic mitral (valve) prolapse Non-alcoholic fatty liver disease Suicide ideation Anxiety and depression Heart valve disorder Vitamin deficiency Vision problems Hormone deficiency Frequent headaches H/O emotional problems UTI (urinary tract infection) Seasonal allergies Surgical History History of hysterectomy Hx of local excision of skin lesion History of bone marrow biopsy Family History Brother Anxiety Hypertension Sister Anxiety Hypertension Uncle Anxiety Myocardial infarction Aunt Anxiety Grandmother Breast cancer Grandfather Myocardial infarction Father Hypertension Social History Smoking Status: Never smoker alcohol intake: never substance use type: does not use caffeine: Yes Type: tea Number of servings: 1 HPI HPI Chief Complaint: FU ON SLEEP STUDY Details: VIOLET HERNANDEZ, is a 38 F who presents to the office today for CBC: 04/18/2024 WBC 3.2, HGB 12.6, PLT 159 CBP: 04/18/2024 AST 48, ALT 111, ALP 112, Albumin 4.2 GGT: 04/18/2024 (H) 123 THERESA: 03/28/2019 negative TSH 04/04/2024 WNL Endomysial Ab 10/05/2023 negative TTG IgA 10/05/2023 negative HCV 01/15/2021 negative US/Elastography: 06/27/2024 fatty infiltration of the liver, kPa 6.8, F2, CBD 8.8 mm - reports she has been seeing Dr. Boogie for the last few years - liver enzyme elevation dates back at least 6 years - chronic leukopenia since 2008, h/o thrombocytopenia - seeing Dr. Kade BARAKAT pain, intermittent, dull ache, can be triggered by eating - itching, chronic - fatigue, chronic - denies any h/o diabetes - denies any h/o thyroid disease - denies any h/o Jaundice - denies any h/o HLD - denies any HTN - denies any EtOH use - weight went up 60lbs in the past 5-6 years, weight is now down 30lbs in the past 8 months - intentional with Weight Wat[employer] and also discontinued Abilify, Wellbutrin Father and Brother with fatty liver - she is on Vitamin E ROS Const Constitutional: Positive for fatigue and headache(s); No fever(s) or weight change ENT ENT: Positive for headache(s); No difficulty swallowing Gastro GI: Positive for constipation and Blood in stool (from hemorrhoids); No abdominal pain, belching, (more content not included)... Normal [facility] ABD Limited w/ Elastographyo n 06-27-2024 ABD Limited w/ Elastography [facility] [address] [place] [id number] ABD Limited w/ Elastography MR#: [id number] Acct: [id number] Name: VIOLET HERNANDEZ Rep #: [id number] : 1985 F 38 From: Delmer oneal MD PCP: Dr. Emily Sanders MD Status: [facility] Study: ABD Limited w/ Elastography Date of Exam: 06/09 11/03 Exam# [id number] Ordering Dr: Jorgito Boogie MD PROCEDURE: ABD LIMITED W/ ELASTOGRAPHY REASON FOR EXAM: FATTY LIVER COMPARISON: Prior study dated January 12, 2024. TECHNIQUE: Right upper quadrant abdominal ultrasound. Misa ElastQ Imaging shear wave elastography for non- invasive assessment of liver tissue stiffness. Misa EPIQ Elite. FINDINGS: LIVER: Size: Unremarkable Length: 14.1 cm Echotexture: Diffusely echogenic suggesting fatty infiltration Contour: Normal Lesions: None identified Elastography: EQI Med: 6.8 kPa EQI Med Benjamin: 1.5 m/s IQR/Med: 7.5 %* GALLBLADDER: Normal COMMON BILE DUCT: Dilated measuring up to 8.8 mm . PANCREAS: Normal Visualized portions of the right kidney are unremarkable. No right upper quadrant ascites. US/ABD Limited w/ Elastography IMPRESSION: [id number]-qjiordph HEPATIC FIBROSIS Reference Values: SRU <1.37 m/s (5.7kPa): No to mild fibrosis 1.37 m/s - 2.2 m/s: Moderate to severe fibrosis >2.2 m/s (15kPa): Significant fibrosis / cirrhosis METAVIR Score F2 or higher: 1.34 m/s (5.7kPa) F3 or higher: 1.55 m/s (7.3kPa) F4: 1.80 m/s (10kPa) * If the IQR/Med is >30%, the variance in the measurements is a large and the accuracy of the measurement may be in question. Reading Location: [place] [address] CC: Dr. Emily Sanders MD; Dr. Jorgito Boogie MD Range Manager: Signed Normal [facility] Urgent Care Visit Reporton 0 06-20-2024 Urgent Care Visit Report [facility] [address], [address] [place] [address] OFFICE VISIT Date of Service: 06/20/24 MR#: [id number] Acct: [id number] Name: VIOLET HERNANDEZ Rep #: [id number] : 1985 Provider: ELIZABETH Lala Age/Sex: 38/F Location: [facility] Status: Signed Intake Vital Signs 04/27/24 08:00 06/20/24 07:58 Height 4 ft 10 in Weight: 138 lb BMI 28.8 BP 118/78 100/60 Blood Pressure Location Lt brachial Position Sitting Sitting Respiration 18 Pulse 80 90 Pulse Source Monitor Temp 97.2 F L 98.8 F Temp Source Temporal Oral Pulse Oximetry (%) 96 97 Oxygen Delivery Method room air room air Intake Visit Reasons: COUGH, MUCUS, CHEST CONGESTION Accompanied by: Self Allergies No Known Allergies Allergy (Verified 06/20/24 07:59) Medications ???Medication ???Instructions ???Recorded ???Confirmed ???Type multivitamin 1 tablet PO DAILY 02/16/19 5 History vitamin E (dl, acetate) 180 mg 400 units PO DAILY 03/26/20 History (400 unit) capsule docusate sodium 100 mg capsule 100 mg PO DAILY PRN constipation 1 02/09/23 06/20/24 History (Stool Softener) albuterol sulfate 90 mcg/actuation 2 inh inhalation Q4H PRN shortne ss 03/31/24 06/20/24 History aerosol inhaler of breath or wheezing cholecalciferol (vitamin D3) 50 50 mcg PO DAILY 03/31/24 06/20/24 History mcg (2,000 unit) tablet (D3 DOTS) estradiol 0.1 mg/24 hr semiweekly 1 patch topical SUWE 03/31/2402/02 History transdermal patch (Shaye) fluvoxamine 100 mg tablet 100 mg PO DAILY 03/31/24 06/20/24 History metronidazole 1 % topical gel topical Perioral detmatitis 06/20/24 History vitamin B complex 1 tab PO QDAY 04/27/24 06/20/24 Hi story amoxicillin 875 mg tablet 875 mg PO BID #20 tabs 06/20/24 Rx Nurse's Note: Patient has cough,chest congestion, sinus pressure with ears clogged and ears plugged since thu. [facility] Medical History (Updated 04/27/24 @ 08:[address] Emily Sanders MD) NICA (obstructive sleep apnea) Costochondritis COELHO (nonalcoholic steatohepatitis) Osteopenia Obesity (BMI 30.0-34.9) Abdominal pain Chronic diarrhea Preventative health care Depression Anxiety Cervical radiculopathy Hyperglycemia Encounter for vitamin deficiency screening Chronic neck pain Hypersomnolence Screening for thyroid disorder Health care maintenance Congestion of left ear Post-nasal drip Urinary frequency Nonrheumatic mitral (valve) prolapse Non-alcoholic fatty liver disease Suicide ideation Anxiety and depression Heart valve disorder Vitamin deficiency Vision problems Hormone deficiency Frequent headaches H/O emotional problems UTI (urinary tract infection) Seasonal allergies Surgical History History of hysterectomy Hx of local excision of skin lesion History of bone marrow biopsy Family History Brother Anxiety Hypertension Sister Anxiety Hypertension Uncle Anxiety Myocardial infarction Aunt Anxiety Grandmother Breast cancer Grandfather Myocardial infarction Father Hypertension Social History Smoking Status: Never smoker alcohol intake: never substance use type: does not use caffeine: Yes Type: tea Number of servings: 1 HPI HPI Details: [facility] for approximately 5-day history of progressively worsening facial pressure/congestion with purulent postnasal drip/cough and right ear pressure. No complaints of fever, chills, myalgias, fatigue, runny nose, or nausea/vomiting/diarrhe a. No complaints of chest pain/shortness of breath/dyspnea on exertion. No close contacts with similar complaints. No other associated symptoms and no other alleviating/aggravating factors. ROS Const Constitutional: No other (as above) Exam Const General: cooperative, healthy appearing and no acute distress Nutritional Appearance: average body habitus Orientation: alert, awake and oriented x3 HENMT Head: normal to inspection Ears: hearing grossly normal bilaterally, external ears normal, TM's normal bilaterally and EAC's normal Nose: external nose normal, nares normal, septum normal and no nasal discharge Face and sinus: normal facial exam, right maxillary sinus palpable tenderness (with right maxillary fullness to palpation) and face symmetric Mouth: oral mucosae normal, lip normal, tongue normal and oropharynx normal Throat: posterior oropharynx normal, tonsils normal, uvula midline and postnasal drainage (Purulent) Eyes General: appearance normal, both eyes and all related structures Neck Neck: normal visual (more content not included)... 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 Violet is a 38 year old who presents for an annual gynecologic exam without complaints. Menses: hysterectomy BSO HRT: Vivelle Dot HPV vaccine: No Last Pap: 05/20/2021 normal HPV: 05/15/2021 negative History of abnormal pap: No Last mammogram: never Sexually active: Yes History of STDS: None Patient concerns for STD exposure: No. Time with current partner: 18 years Pain with intercourse: Yes pain at bottom at vaginal opening, thinks due to dryness, uses coconut oil Postcoital bleeding: No Documentation from previous visit of 05/09/2022 was copied and pasted, documentation has been reviewed and edited as necessary for today's visit. OB History Gravida0 Para0 Term0 Preterm0 AB0 Living0 SAB0 IAB0 Ectopic0 Multiple0 Live Births0 FAMILY HISTORY Problem Relation Age of Onset Cataract Mother Macular Degen Mother Hypertension Father No Known Problems Sister No Known Problems Brother Breast Cancer Maternal Grandmother 55 Skin Cancer Maternal Grandmother Diabetes Maternal Grandmother Heart disease Maternal Grandfather Heart disease Paternal Grandmother Stroke Paternal Grandfather SOCIAL HISTORY Social History Tobacco Use Smoking status: Never Smokeless tobacco: Never Vaping Use Vaping status: Never Used Substance Use Topics Alcohol use: Never Drug use: Never REVIEW OF SYSTEMS Abdomen:intermittent aching at umbilical incision from hysterectomy. Has noticed a dent in abdomen where uterus used to be. No abdominal pain, nausea, vomiting, diarrhea, or constipation. No bloating, early satiety, indigestion, or increased flatulence. Bladder: No dysuria, gross hematuria, urinary frequency, urinary urgency, or incontinence. Breast: No breast lumps, nipple d/c, overlying skin changes, redness or skin retraction. Allergies and current medication updated:Yes SENSITIVE EXAM: The sensitive examination was discussed with the Patient or Patient's Authorized Lean Manufacturing Engineer. As applicable, any other physician, advance practice provider, medical student, or other health professional student that will be observing or involved in the sensitive examination for educational or training purposes was discussed with the Patient or Authorized Lean Manufacturing Engineer. The Patient or Authorized [employer] has agreed to proceed with the sensitive examination. (Sensitive examination includes inspection and/or palpation of the breasts, pelvis, prostate and anorectal regions). EXAM: BP 100/60 Ht 4' 10 (1.47m) Wt 137 lb (62.1kg) LMP 06/09/2022 BMI 28.64 kg/(m2). GENERAL: pleasant, female in no apparent distress HEENT: Normocephalic, atraumatic, mucus membranes moist, and no lesions NECK: Supple, full range of motion, no adenopathy, and thyroid normal DERMATOLOGY: Normal, without lesions, non-icteric, and non-hirsute BREAST: soft, non-tender, symmetric, no dominant mass, normal nipple-areolar complex, no lymphadenopathy, and no nipple discharge CHEST: Normal inspiratory effort ABDOMEN: soft, non-tender, and no masses PELVIC: external genitalia normal, normal Bartholin's glands, urethra, [place]'s glands, no vulvar lesions, good vaginal support, physiologic discharge present, normal appearing perineal body and perianal region, cervix surgically absent. Thin midline scar at perineum. BIMANUAL: no adnexal masses, non-tender, and uterus surgically absent RECTOVAGINAL: deferred. NEURO: alert and oriented x3 and alert and oriented x3,exam grossly non-focal EXTREMITIES: normal ASSESSMENT/PLAN: 1) Health maintenance: Pap/HPV no longer needed - hysterectomy Mammogram scheduled. Nutrition, exercise and routine health maintenance exams reviewed. Calcium/Vitamin D supplementation information provided. Colon cancer screening: up to date 2. Superficial dyspareunia - ICD9: 625.0, ICD10: N94.11 Thin midline scar at perineum at location of pain - shown with mirror - discussed options of lubricants, vaginal hyaluronic acid suppositories, vaginal estogen - plans to try silicone lubricant or Revaree 3. 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 Should review liver enzymes before refills - PCP at [place] 4) Contraception: hysterectomy. Contraceptive options reviewed and information provided. 5) STD screening: Declined STD check. 6) Follow up one year or sooner as needed Sherly Ng APRN.CN (more content not included)... Normal [facility] Bilirubin Test strip Ql (U)O rdered By: Emily Sanders on 04-27-2024 Bilirubin Ql (U) Negative Negative [facility] Epithelial cells.squamous LM Ql (Urine sed)Ordered By: Emily Sanders on 04-27-2024 Epithelial cells.squamous LM.HPF (Urine sed) [#/Area] 0 /[HPF] 5-10 [facility] Glucose Ql (U)Ordered By: Eduardo Sanders on 04-27-2024 Urine Glucose (UA) Normal mg/dl Normal [facility] Internal Medicine Office Vis iton 04-27-2024 Internal Medicine Office Visit [facility] [address] [place], [place] [address] OFFICE VISIT Date of Service: 04/27/24 MR#: [id number] Acct: [id number] Name: VIOLET HERNANDEZ Rep #: [id number] : 1985 Provider: Dr. Emily fofana MD Age/Sex: 38/F Location: [facility] Status: Signed Intake Vital Signs 04/04/24 09:14 04/25/24 13:09 04/27/24 08:00 Height 4 ft 10 in 4 ft 10 in 4 ft 10 in Weight: 138 lb BMI 28.8 BP 118/78 Blood Pressure Location Lt brachial Position Sitting Respiration 18 Pulse 80 Pulse Source Monitor Temp 97.2 F L Temp Source Temporal Pulse Oximetry (%) 96 Oxygen Delivery Method room air Intake Visit Reasons: FU ON SLEEP STUDY Chief Complaint: FU ON SLEEP STUDY Is patient in pain?: No Allergies No Known Allergies Allergy (Verified 04/27/24 07:58) Medications ???Medication ???Instructions ???Recorded ???Confirmed ???Type multivitamin 1 tablet PO DAILY 02/16/19 5 History vitamin E (dl, acetate) 180 mg 400 units PO DAILY 03/26/20 History (400 unit) capsule docusate sodium 100 mg capsule 100 mg PO DAILY PRN constipation 1 02/09/23 04/27/24 History (Stool Softener) albuterol sulfate 90 mcg/actuation 2 inh inhalation Q4H PRN shortne ss 03/31/24 04/27/24 History aerosol inhaler of breath or wheezing cholecalciferol (vitamin D3) 50 50 mcg PO DAILY 03/31/24 04/27/24 History mcg (2,000 unit) tablet (D3 DOTS) estradiol 0.1 mg/24 hr semiweekly 1 patch topical SUWE 03/31/24 History transdermal patch (Shaye) fluvoxamine 100 mg tablet 100 mg PO DAILY 03/31/24 04/27/24 History metronidazole 1 % topical gel topical Perioral detmatitis 04/27/24 History vitamin B complex 1 tab PO QDAY 04/27/24 04/27/24 Hi story PFSH Medical History (Updated 04/27/24 @ 08:[address] Emily Sanders MD) NICA (obstructive sleep apnea) Costochondritis COELHO (nonalcoholic steatohepatitis) Osteopenia Obesity (BMI 30.0-34.9) Abdominal pain Chronic diarrhea Preventative health care Depression Anxiety Cervical radiculopathy Hyperglycemia Encounter for vitamin deficiency screening Chronic neck pain Hypersomnolence Screening for thyroid disorder Health care maintenance Congestion of left ear Post-nasal drip Urinary frequency Nonrheumatic mitral (valve) prolapse Non-alcoholic fatty liver disease Suicide ideation Anxiety and depression Heart valve disorder Vitamin deficiency Vision problems Hormone deficiency Frequent headaches H/O emotional problems UTI (urinary tract infection) Seasonal allergies Surgical History History of hysterectomy Hx of local excision of skin lesion History of bone marrow biopsy Family History Brother Anxiety Hypertension Sister Anxiety Hypertension Uncle Anxiety Myocardial infarction Aunt Anxiety Grandmother Breast cancer Grandfather Myocardial infarction Father Hypertension Social History Smoking Status: Never smoker alcohol intake: never substance use type: does not use caffeine: Yes Type: tea Number of servings: 1 HPI HPI Chief Complaint: FU ON SLEEP STUDY Details: VIOLET HERNANDEZ, is a 38 F who presents to the office today for follow-up on recent sleep study. Also has some concerns. Recently had a sleep study which was suggestive of mild sleep apnea. CPAP trial versus other measures were recommended, she states that she would like to try the oral device. She also reports pain with urination which has been ongoing for about 24 hours. No chills, fever or otherwise feeling of unwell. Other chronic medical conditions are stable. ROS Const Constitutional: No body ache, chills, excessive sweating, fatigue, fever(s), frequent falls, headache(s), snoring, weight change, sleep problems, abnormal sleep pattern or change in appetite Eyes Eyes: No blurry vision, change in vision, bulging eyes, floaters, visual disturbances, eye pain or Light sensitivity ENT ENT: No abnormal hearing, ear or mastoid pain, tinnitus, balance problems, nosebleed/epistaxis, nasal congestion, headache(s), neck pain or sore throat Resp Respiratory: No cough, excessive phlegm production, pain on inspiration, shortness of breath, snoring or wheezing Cardio Cardiology: No chest pain at rest, chest pain with exertion, excessive sweating, shortness of breath, dyspnea on exertion, lightheadedness, orthopnea or palpitations Gastro GI: No abdominal pain, change in bowel habits, constipation, cramping, diarrhea, nausea/dyspepsia or vomiting Genitourinary-Female: Positive for burning urination and painful urination; No u (more content not included)... Normal [facility] Ketones Test strip Ql (U)Ord ered By: Emily Sanders on 04-27-2024 Ketones Ql (U) Negative Negative [facility] Microscopic analysis of urin e for red blood cells (RBC)Ordered By: Emily Sanders on 04-27-2024 Microscopic analysis of urine for red blood cells (RBC) 0 SEEN /hpf 0-5 [facility] Urine RBC 0 SEEN /hpf 0-5 [facility] Mucus LM Ql (Urine sed)Order ed By: Emily Sanders on 04-27-2024 Mucus Ql (Urine sed) 0 SEEN /hpf [facility] Nitrite Test strip Ql (U)Ord ered By: Emily Sanders on 04-27-2024 Nitrite Ql (U) Negative Negative [facility] Protein Test strip Ql (U)Ord ered By: Emily Sanders on 04-27-2024 Protein Ql (U) 15 mg/dl High Negative [facility] Squamous epithelial cells de tection in urine sediment by light microscopyOrdered By: Emily Sanders on 04-27-2024 Epithelial cells.squamous LM Ql (Urine sed) 0-5 SEEN /hpf 5-10 [facility] Urinalysis, Completeon 04-27 EPI,SQUAMOUS 0-5 SEEN Normal 5-10 [facility] Comment on above: Order Comment: MOODY CTOR TO SPECIFY Performed By: #### L 3890.6202, L3410.9992, L3100.0460, L500.4100, L3890.6301, L3890.6102, L500.2500, L3300.1200, L800.1280, L803.2200, L100.0100, L503.6030, L3100.0300, L503.6550, L501.9985 #### [facility] [address] [place], [address] RBC 0 SEEN Normal 0-5 [facility] Comment on above: Order Comment: MOODY CTOR TO SPECIFY Performed By: #### L 3890.6202, L3410.9992, L3100.0460, L500.4100, L3890.6301, L3890.6102, L500.2500, L3300.1200, L800.1280, L803.2200, L100.0100, L503.6030, L3100.0300, L503.6550, L501.9985 #### [facility] [address] [place], [address] BACTERIA 0 SEEN Normal None Seen [facility] Comment on above: Order Comment: MOODY CTOR TO SPECIFY Performed By: #### L 3890.6202, L3410.9992, L3100.0460, L500.4100, L3890.6301, L3890.6102, L500.2500, L3300.1200, L800.1280, L803.2200, L100.0100, L503.6030, L3100.0300, L503.6550, L501.9985 #### [facility] [address] [place], [place], [id number] Mucus Ql (Urine sed) 0 SEEN Normal [facility] Comment on above: Order Comment: COLLE CTOR TO SPECIFY Performed By: #### L 3890.6202, L3410.9992, L3100.0460, L500.4100, L3890.6301, L3890.6102, L500.2500, L3300.1200, L800.1280, L803.2200, L100.0100, L503.6030, L3100.0300, L503.6550, L501.9985 #### [facility] [address] [place], [address] WBC 0 SEEN Normal 0-5 [facility] Comment on above: Order Comment: COLLE CTOR TO SPECIFY Performed By: #### L 3890.6202, L3410.9992, L3100.0460, L500.4100, L3890.6301, L3890.6102, L500.2500, L3300.1200, L800.1280, L803.2200, L100.0100, L503.6030, L3100.0300, L503.6550, L501.9985 #### [facility] [address] [place], [place], [id number] Urine blood detectionOrdered By: Emily Sanders on 04-27-2024 Urine Occult Blood 10 /ul High Negative [facility] Urine clarityOrdered By: Kaleb Sanders on 04-27-2024 Clarity (U) Clear Clear [facility] Urine color determinationOrd ered By: Emily Sanders on 04-27-2024 Color (U) Yellow Yellow [facility] Urine glucose detectionOrder ed By: Emily Sanders on 04-27-2024 Glucose Ql (U) Normal mg/dl Normal [facility] Urine leukocyte esterase det ection by dipstickOrdered By: Emily Sanders on 04-27-2024 Leukocyte esterase Test strip Ql (U) 25 /ul High Negative [facility] Urine pHOrdered By: Miguel Sanders on 04-27-2024 pH (U) 6.0 [pH] 5.0 - 8.0 [facility] Urine sediment bacteria coun t by microscopy (number/high power field)Ordered By: Emily Sanders on 04-27-2024 Bacteria LM.HPF (Urine sed) [#/Area] 0 /[HPF] None Seen [facility] Urine specific gravity measu rementOrdered By: Emily Sanders on 04-27-2024 Specific gravity (U) [Rel density] 1.020 1.002-1.030 [facility] Urine urobilinogen measureme ntOrdered By: Emily Sanders on 04-27-2024 Urobilinogen Ql (U) Normal mg/dl Normal [facility] Urobilinogen Ql (U)Ordered B y: Emily Sanders on 04-27-2024 Urine Urobilinogen Normal mg/dl Normal [facility] White blood cell countOrdere d By: Emily Sanders on 04-27-2024 Urine WBC 0 SEEN /hpf 0-5 [facility] White blood cell count 0 SEEN /hpf 0-5 [facility] Oncology Visit Reporton 04-09 Oncology Visit Report [facility] [address] [place] [address] OFFICE VISIT Date of Service: 04/25/24 1305 MR#: [id number] Acct: [id number] Name: VIOLET HERNANDEZ Rep #: [id number] : 1985 From: Gene Braun MD Age/Sex: 38/F Location: [facility] Status: Signed HPI Subjective Date of Service 04/25/24 Chief Complaint F/u for Leukopenia/Neutropenia. 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 Had bone marrow biopsy done at that time which was negative so stayed on observation. She remained leukopenic, moved to [facility], had another bone marrow biopsy on 01/25/2015. Pathology showed hypocellular marrow with normal cytogenetics and FISH. She moved to [place] and wanted her follow done here at [facility]. She is on observation, comes for follow up. Feels well. [facility] Medical History Costochondritis COELHO (nonalcoholic steatohepatitis) Osteopenia Obesity (BMI 30.0-34.9) Abdominal pain Chronic diarrhea Preventative health care Depression Anxiety Cervical radiculopathy Hyperglycemia Encounter for vitamin deficiency screening Chronic neck pain Hypersomnolence Screening for thyroid disorder Health care maintenance Congestion of left ear Post-nasal drip Urinary frequency Nonrheumatic mitral (valve) prolapse Non-alcoholic fatty liver disease Suicide ideation Anxiety and depression Heart valve disorder Vitamin deficiency Vision problems Hormone deficiency Frequent headaches H/O emotional problems UTI (urinary tract infection) Seasonal allergies Surgical History History of hysterectomy Hx of local excision of skin lesion History of bone marrow biopsy Family History Brother Anxiety Hypertension Sister Anxiety Hypertension Uncle Anxiety Myocardial infarction Aunt Anxiety Grandmother Breast cancer Grandfather Myocardial infarction Father Hypertension Social History Smoking Status: Never smoker alcohol intake: never substance use type: does not use caffeine: Yes Type: tea Number of servings: 1 Intake Vital Signs 01/18/24 12:47 04/04/24 09:14 04/25/24 13:07 04/25/24 13:09 Height 4 ft 10 in 4 ft 10 in 4 ft 10 in 4 ft 10 in Weight: 62.794 kg BMI 28.9 BP 114/67 Blood Pressure Location Lt brachial Position Sitting Respiration 18 Pulse 56 L Pulse Source Monitor Temp 98.2 F Temperature Source Temporal Artery Pulse Oximetry (%) 98 Oxygen Delivery Method room air Intake Is patient in pain?: No Allergies No Known Allergies Allergy (Verified 04/25/24 13:05) Medications ???Medication ???Instructions ???Recorded ???Confirmed ???Type multivitamin 1 tablet PO DAILY 02/16/19 5 History vitamin E (dl, acetate) 180 mg 400 units PO DAILY 03/26/20 History (400 unit) capsule docusate sodium 100 mg capsule 100 mg PO DAILY PRN constipation 1 02/09/23 04/25/24 History (Stool Softener) albuterol sulfate 90 mcg/actuation 2 inh inhalation Q4H PRN shortne ss 03/31/24 04/25/24 History aerosol inhaler of breath or wheezing cholecalciferol (vitamin D3) 50 50 mcg PO DAILY 03/31/24 04/25/24 History mcg (2,000 unit) tablet (D3 DOTS) estradiol 0.1 mg/24 hr semiweekly 1 patch topical SUWE 03/31/24 History transdermal patch (Shaye) fluvoxamine 100 mg tablet 100 mg PO DAILY 03/31/24 04/25/24 History metronidazole 1 % topical gel topical Perioral detmatitis 04/25/24 History Central Venous Access Central Venous Access: No Laboratory Tests 04/17/21 04/24/22 04/28/23 10:20 13:32 13:55 WBC 2.5 L 3.0 L 2.7 L Hgb 12.7 12.5 12.4 Hct 36.8 L 37.9 37.6 Plt Count 135 L 133 L 130 L Daggett % (Auto) Absolute Neuts (auto) 1.4 L 1.9 L 1.4 L Absolute Lymphs (auto) Sodium 137 Potassium 4.1 Chloride 105 Carbon Dioxide 25.0 BUN 14 Creatinine 0.88 Glucose 85 Calcium 9.1 Total Bilirubin 0.30 AST 33 ALT 61 H Alkaline Phosphatase 67 Lactate Dehydrogenase 218 Total Protein 7.1 Albumin 3.8 Globulin 3.3 08/06/23 04/18/24 13:18 08:40 WBC 3.4 L 3.2 L Hgb 12.2 12.6 Hct 36.2 L 36.4 L Plt Count 133 L 159 Daggett % (Auto) 15.5 H Absolute Neuts (auto) 1.9 L 1.9 L Absolute Lymphs (auto) 0.85 Sodium Potassium Chloride Carbon Dioxide BUN Creatinine Glucose Calcium Total Bilirubin AST ALT Alkaline Phosphatase Lactate Dehydrogenase Total Protein Albumin Globulin Exam Physical Exam (more content not included)... Normal [facility] L3410.9998on 04-21-2024 [facility]. COMMENT Normal . [facility] Comment on above: Order Comment: LG GR EEN SHEP WB [id number] FISH Result Comment: Test Ordered: [id number] CLL FISH Panel Specimen Type Comment: Reference Range: . BLOOD Cells Counted Comment: Reference Range: . 200/PROBE Cells Analyzed Comment: Reference Range: . 200/PROBE FISH Result Comment: Reference Range: . NORMAL CLL PANEL Interpretation Comment: Reference Range: . The CLL interphase fluorescence in situ hybridization (FISH) panel analysis was normal. There were no cells with CCND1-IGH fusion. No extra signals or deletions of HUNTER, chromosome 12, 13q, or TP53 were observed. SPECIFIC FISH RESULTS: CCND1/IGH: NORMAL . nuc maya 11q13(JYKK7o2),14q32(IGHx2)[200] HUNTER: NORMAL nuc maya 11q22.3(ATMx2)[200]. 12cen: NORMAL . nuc maya 12cen(N43Q5w6)[200]. 13q: NORMAL . nuc maya 13q14.3(DLEUx2),13q34(ZNPG6w6)[200]. TP53: NORMAL . nuc maya 17p13.1(TP53x2)[200] This analysis is limited to abnormalities detectable by the specific probes included in the study. FISH results should be interpreted within the context of a full cytogenetic analysis and hematologic evaluation. REFERENCES:. Cathy,(2013) Adv Exp Med Biol 792:193-214.PMID#[id number] . Jase et al.,(2011) Clin Lab Med 31:649-658.PMID#[id number] This test was developed and its performace characteristics determined by [employer] ([employer]). It has not been cleared or approved by the U.S. Food and Drug Administration. The DNA probe vendor for this study was [employer] ([facility]). Director Review: Comment: Reference Range: . Yee Galeana, PhD, FACMG Performed at: [facility] [place] [address] [facility] [facility] [address] [facility] [address], [place], [place] [id number] Chief Security Officer: Moira Ramirez [facility], Phone: [phone] Performed at: - [facility] [address] [id number] Chief Security Officer: Jorgito Cunningham PhD, Phone: [phone] Performed By: #### L 3890.6202, L3410.9992, L3100.0460, L500.4100, L3890.6301, L3890.6102, L500.2500, L3300.1200, L800.1280, L803.2200, L100.0100, L503.6030, L3100.0300, L503.6550, L501.9985 #### [facility] [place], [address] L3410.9998on 04-20-2024 [facility]. COMMENT Normal . [facility] Comment on above: Order Comment: ROHIT HANNA WB [id number] CYTOMETRY Result Comment: Test Ordered: [id number] Flow panel: Leukemia/Lymphoma Flow Interpretation Comment -Y Reference Range: . No significant immunophenotypic abnormality detected. Flow Comment Comment -Y Reference Range: . Recommend clinical/CBC correlation and follow up as appropriate. Clinical Information Comment -Y Reference Range: . A recent CBC was not available for review at the time this report was prepared. Specimen Type Comment -Y Reference Range: . Peripheral blood Assessment of Leukocytes Comment -Y Reference Range: . No monoclonal B cell population is detected. kappa:lambda ratio 1.5 There is no loss of, or aberrant expression of, the oconnor T cell antigens to suggest a neoplastic T cell process. CD4:CD8 ratio 0.9 No circulating blasts are detected. There is no immunophenotypic evidence of abnormal myeloid maturation. Monocytes show partial aberrant expression of CD56, a finding that can be seen in association with both reactive/activated processes as well as neoplastic processes. Analysis of the leukocyte population shows: granulocytes 69%, monocytes 12%, lymphocytes 19%, blasts <0.1%, B cells 2%, T cells 15%, NK cells 2% Viability Comment -Y Reference Range: . 91% Analysis and Gating Strategy Comment [facility] Reference Range: . 8 color analysis with CD45/SSC gating [facility] Phenotype Chart Comment -Y Reference Range: . CD2 Normal CD3 Normal CD4 Normal CD5 Normal CD7 Normal CD8 Normal CD10 Normal CD11b Normal CD13 Normal CD14 Normal CD16 Normal CD19 Normal CD20 Normal CD33 Normal CD34 Normal CD38 Normal CD45 Normal CD56 See Text CD57 Normal CD117 Normal HLA-DR Normal KAPPA Normal LAMBDA Normal CD64 Normal Resulting Path Name Comment -Y Reference Range: . Cami Duckworth M.D. Ph.D Comment: Comment TG Reference Range: . Each antibody in this assay was utilized to assess for potential abnormalities of studied cell populations or to characterize identified abnormalities. This test was developed and its performance characteristics determined by [facility]. It has not been cleared or approved by the U.S. Food and Drug Administration. The FDA has determined that such clearance or approval is not necessary. This test is used for clinical purposes. It should not be regarded as investigational or for research. Performed at: -Y - [facility] [place] [address] [place], [place] [id number] Chief Security Officer: Moira Ramirez [facility], Phone: [phone] Performed at: [address] [id number] Chief Security Officer: Moira Ramirez MD, Phone: [phone] Performed at: - [facility] [address] [place], [place] [id number] Chief Security Officer: Moira Ramirez [facility], Phone: [phone] Performed at: [facility] [address] [id number] Chief Security Officer: Jorgito Cunningham PhD, Phone: [phone] Performed By: #### L 3890.6202, L3410.9992, L3100.0460, L500.4100, L3890.6301, L3890.6102, L500.2500, L3300.1200, L800.1280, L803.2200, L100.0100, L503.6030, L3100.0300, L503.6550, L501.9985 #### [facility] [address] [place], [place], [address] Absolute lymphocyte countOrd ered By: Gene Braun on 04-18-2024 Lymphocytes Auto (Unsp spec) [#/Vol] 0.62 10*3/uL Low 0.83-4.51 [facility] Absolute neutrophil countOrd ered By: Gene Braun on 04-18-2024 Neutrophils (Bld) [#/Vol] 1.9 10*3/uL Low 2.0-7.7 [facility] Anion gap in Serum or Plasma Ordered By: Gene Braun on 04-18-2024 Anion gap [Moles/Vol] 12 mmol/L 5-15 [facility] Automated blood erythrocyte countOrdered By: Gene Braun on 04-18-2024 RBC (Bld) [#/Vol] 3.66 10*6/uL Low 4.2-5.4 [facility] Comment on above: Performed By: #### L 3890.6202, L3410.9992, L3100.0460, L500.4100, L3890.6301, L3890.6102, L500.2500, L3300.1200, L800.1280, L803.2200, L100.0100, L503.6030, L3100.0300, L503.6550, L501.9985 #### [facility] [address] [place], [address] Automated blood hematocrit ( percentage)Ordered By: Gene Braun on 04-18-2024 Hematocrit (Bld) [Volume fraction] 36.4 % Low 37-47 [facility] Comment on above: Performed By: #### L 3890.6202, L3410.9992, L3100.0460, L500.4100, L3890.6301, L3890.6102, L500.2500, L3300.1200, L800.1280, L803.2200, L100.0100, L503.6030, L3100.0300, L503.6550, L501.9985 #### [facility] [address] [place], [place], [id number] Automated lymphocyte count a s percentage of total leukocytesOrdered By: Gene Braun on 04-18-2024 Lymphocytes/100 WBC (Bld) 19.4 % Normal 19-41 [facility] Comment on above: Performed By: #### L 3890.6202, L3410.9992, L3100.0460, L500.4100, L3890.6301, L3890.6102, L500.2500, L3300.1200, L800.1280, L803.2200, L100.0100, L503.6030, L3100.0300, L503.6550, L501.9985 #### [facility] [address] [place], [address] (223) Lymphocytes/100 WBC Auto (Unsp spec) 19.4 % [facility] BUN/creatinine ratioOrdered By: Gene Braun on 04-18-2024 Urea nitrogen/Creatinine [Mass ratio] 17.5 mg/mg 11-28 [facility] [facility] Basophil percentageOrdered B y: Gene Braun on 04-18-2024 Basophils/100 WBC (Bld) 0.6 % Normal 0 [facility] Comment on above: Performed By: #### L 3890.6202, L3410.9992, L3100.0460, L500.4100, L3890.6301, L3890.6102, L500.2500, L3300.1200, L800.1280, L803.2200, L100.0100, L503.6030, L3100.0300, L503.6550, L501.9985 #### [facility] [address] [place], [address] (603) Bilirubin, totalOrdered By: Gene Braun on 04-18-2024 Bilirubin [Mass/Vol] 0.22 mg/dL 0.00-1.30 [facility] CBC W/Diff, Automatedon 04-09 Absolute Lymph 0.62 X10 3/uL Low 0.83-4.51 [facility] Comment on above: Performed By: #### L 3890.6202, L3410.9992, L3100.0460, L500.4100, L3890.6301, L3890.6102, L500.2500, L3300.1200, L800.1280, L803.2200, L100.0100, L503.6030, L3100.0300, L503.6550, L501.9985 #### [facility] [address] [facility] [place], [place], [id number] Absolute Neut 1.9 X10 3/uL Low 2.0-7.7 [facility] Comment on above: Performed By: #### L 3890.6202, L3410.9992, L3100.0460, L500.4100, L3890.6301, L3890.6102, L500.2500, L3300.1200, L800.1280, L803.2200, L100.0100, L503.6030, L3100.0300, L503.6550, L501.9985 #### [facility] [address] [facility] [place], [address] IG% 0.300 Normal 0.0-0.9 [facility] Comment on above: Result Comment: IG% - Immature Granulocytes (promyelocytes, myelocytes and metamyelocytes) > 1% indicates that a LEFT SHIFT is Present. Performed By: #### L 3890.6202, L3410.9992, L3100.0460, L500.4100, L3890.6301, L3890.6102, L500.2500, L3300.1200, L800.1280, L803.2200, L100.0100, L503.6030, L3100.0300, L503.6550, L501.9985 #### [facility] [address] [facility] [address] [place], [address] Nucleated RBC (Bld) [#/Vol] 0 10*3/uL Normal 0-5 [facility] Comment on above: Performed By: #### L 3890.6202, L3410.9992, L3100.0460, L500.4100, L3890.6301, L3890.6102, L500.2500, L3300.1200, L800.1280, L803.2200, L100.0100, L503.6030, L3100.0300, L503.6550, L501.9985 #### [facility] [address] [place], [place], [id number] (339) RDW SD 54.5 fl High 35.1-43.9 [facility] Comment on above: Performed By: #### L 3890.6202, L3410.9992, L3100.0460, L500.4100, L3890.6301, L3890.6102, L500.2500, L3300.1200, L800.1280, L803.2200, L100.0100, L503.6030, L3100.0300, L503.6550, L501.9985 #### [facility] [address] [place], [address] (301) Carbon dioxide, total [Moles /volume] in Central venous bloodOrdered By: Gene Braun on 04-18-2024 CO2 [Moles/Vol] 22.8 mmol/L 21.0-32.0 [facility] Chloride assayOrdered By: Erin Braun on 04-18-2024 Chloride [Moles/Vol] 103 mmol/L 98-108 [facility] Comprehensive Metabolic Prof ilon 04-18-2024 Albumin [Mass/Vol] 4.2 g/dL Normal 3.5-5.0 [facility] Comment on above: Performed By: #### L 3890.6202, L3410.9992, L3100.0460, L500.4100, L3890.6301, L3890.6102, L500.2500, L3300.1200, L800.1280, L803.2200, L100.0100, L503.6030, L3100.0300, L503.6550, L501.9985 #### [facility] [address] [place], [place], [id number] (080) Albumin/Globulin [Mass ratio] 1.7 {ratio} Normal 0.9-2.4 [facility] Comment on above: Performed By: #### L 3890.6202, L3410.9992, L3100.0460, L500.4100, L3890.6301, L3890.6102, L500.2500, L3300.1200, L800.1280, L803.2200, L100.0100, L503.6030, L3100.0300, L503.6550, L501.9985 #### [facility] [address] [place], [place], [id number] ALK PHOS 112 U/L High 35-104 [facility] Comment on above: Performed By: #### L 3890.6202, L3410.9992, L3100.0460, L500.4100, L3890.6301, L3890.6102, L500.2500, L3300.1200, L800.1280, L803.2200, L100.0100, L503.6030, L3100.0300, L503.6550, L501.9985 #### [facility] [address] [place], [address] ALT [Catalytic activity/Vol] 111 U/L High <=34 [facility] Comment on above: Performed By: #### L 3890.6202, L3410.9992, L3100.0460, L500.4100, L3890.6301, L3890.6102, L500.2500, L3300.1200, L800.1280, L803.2200, L100.0100, L503.6030, L3100.0300, L503.6550, L501.9985 #### [facility] [address] [place], [place], [id number] AST [Catalytic activity/Vol] 48 U/L High <=31 [facility] Comment on above: Performed By: #### L 3890.6202, L3410.9992, L3100.0460, L500.4100, L3890.6301, L3890.6102, L500.2500, L3300.1200, L800.1280, L803.2200, L100.0100, L503.6030, L3100.0300, L503.6550, L501.9985 #### [facility] [address] [place], [place], [id number] [phone] Bilirubin [Mass/Vol] 0.22 mg/dL Normal 0.00-1.30 [facility] Comment on above: Performed By: #### L 3890.6202, L3410.9992, L3100.0460, L500.4100, L3890.6301, L3890.6102, L500.2500, L3300.1200, L800.1280, L803.2200, L100.0100, L503.6030, L3100.0300, L503.6550, L501.9985 #### [facility] [address] [facility] [address] [place], [address] BUN/CRE 17.5 RATIO Normal 10-20 [facility] Comment on above: Performed By: #### L 3890.6202, L3410.9992, L3100.0460, L500.4100, L3890.6301, L3890.6102, L500.2500, L3300.1200, L800.1280, L803.2200, L100.0100, L503.6030, L3100.0300, L503.6550, L501.9985 #### [facility] [address] [place], [address] Calcium [Mass/Vol] 9.4 mg/dL Normal 7.6-11.0 [facility] Comment on above: Performed By: #### L 3890.6202, L3410.9992, L3100.0460, L500.4100, L3890.6301, L3890.6102, L500.2500, L3300.1200, L800.1280, L803.2200, L100.0100, L503.6030, L3100.0300, L503.6550, L501.9985 #### [facility] [address] [facility] [place], [place], [id number] Chloride [Moles/Vol] 103 mmol/L Normal 98-108 [facility] Comment on above: Performed By: #### L 3890.6202, L3410.9992, L3100.0460, L500.4100, L3890.6301, L3890.6102, L500.2500, L3300.1200, L800.1280, L803.2200, L100.0100, L503.6030, L3100.0300, L503.6550, L501.9985 #### [facility] [address] [facility] [place], [place], [id number] CO2 [Moles/Vol] 22.8 mmol/L Normal 21.0-32.0 [facility] Comment on above: Performed By: #### L 3890.6202, L3410.9992, L3100.0460, L500.4100, L3890.6301, L3890.6102, L500.2500, L3300.1200, L800.1280, L803.2200, L100.0100, L503.6030, L3100.0300, L503.6550, L501.9985 #### [facility] [address] [place], [address] Creatinine [Mass/Vol] 0.74 mg/dL Normal 0.70-1.20 [facility] Comment on above: Performed By: #### L 3890.6202, L3410.9992, L3100.0460, L500.4100, L3890.6301, L3890.6102, L500.2500, L3300.1200, L800.1280, L803.2200, L100.0100, L503.6030, L3100.0300, L503.6550, L501.9985 #### [facility] [address] [place], [place], [id number] ECRCL 90.20 ml/min Normal 50-250 [facility] Comment on above: Performed By: #### L 3890.6202, L3410.9992, L3100.0460, L500.4100, L3890.6301, L3890.6102, L500.2500, L3300.1200, L800.1280, L803.2200, L100.0100, L503.6030, L3100.0300, L503.6550, L501.9985 #### [facility] [address] [facility] [place], [place], [id number] GAP 12 Normal 5-15 [facility] Comment on above: Performed By: #### L 3890.6202, L3410.9992, L3100.0460, L500.4100, L3890.6301, L3890.6102, L500.2500, L3300.1200, L800.1280, L803.2200, L100.0100, L503.6030, L3100.0300, L503.6550, L501.9985 #### [facility] [address] [place], [place], [id number] GFR/1.73 sq M.predicted among non-blacks MDRD (S/P/Bld) [Vol rate/Area] 105 mL/min/{1.73_m2} Normal >60 [facility] Comment on above: Result Comment: mL/m in/1.73m2 CKD-EPI Creatinine Equation (2020) Performed By: #### L 3890.6202, L3410.9992, L3100.0460, L500.4100, L3890.6301, L3890.6102, L500.2500, L3300.1200, L800.1280, L803.2200, L100.0100, L503.6030, L3100.0300, L503.6550, L501.9985 #### [facility] [address] [place], [address] Globulin (S) [Mass/Vol] 2.5 g/dL Normal 2.2-4.2 [facility] Comment on above: Performed By: #### L 3890.6202, L3410.9992, L3100.0460, L500.4100, L3890.6301, L3890.6102, L500.2500, L3300.1200, L800.1280, L803.2200, L100.0100, L503.6030, L3100.0300, L503.6550, L501.9985 #### [facility] [address] [place], [address] Glucose [Mass/Vol] 99 mg/dL Normal 70-99 [facility] Comment on above: Performed By: #### L 3890.6202, L3410.9992, L3100.0460, L500.4100, L3890.6301, L3890.6102, L500.2500, L3300.1200, L800.1280, L803.2200, L100.0100, L503.6030, L3100.0300, L503.6550, L501.9985 #### [facility] [address] [place], [address] Potassium [Moles/Vol] 4.3 mmol/L Normal 3.3-5.1 [facility] Comment on above: Performed By: #### L 3890.6202, L3410.9992, L3100.0460, L500.4100, L3890.6301, L3890.6102, L500.2500, L3300.1200, L800.1280, L803.2200, L100.0100, L503.6030, L3100.0300, L503.6550, L501.9985 #### [facility] [address] [place], [address] Sodium [Moles/Vol] 137 mmol/L Normal 133-145 [facility] Comment on above: Performed By: #### L 3890.6202, L3410.9992, L3100.0460, L500.4100, L3890.6301, L3890.6102, L500.2500, L3300.1200, L800.1280, L803.2200, L100.0100, L503.6030, L3100.0300, L503.6550, L501.9985 #### [facility] [address] [place], [address] T PROT 6.6 g/dL Normal 5.9-8.4 [facility] Comment on above: Performed By: #### L 3890.6202, L3410.9992, L3100.0460, L500.4100, L3890.6301, L3890.6102, L500.2500, L3300.1200, L800.1280, L803.2200, L100.0100, L503.6030, L3100.0300, L503.6550, L501.9985 #### [facility] [address] [place], [address] Urea nitrogen [Mass/Vol] 13 mg/dL Normal 4-19 [facility] Comment on above: Performed By: #### L 3890.6202, L3410.9992, L3100.0460, L500.4100, L3890.6301, L3890.6102, L500.2500, L3300.1200, L800.1280, L803.2200, L100.0100, L503.6030, L3100.0300, L503.6550, L501.9985 #### [facility] [address] [place], [address] Eosinophil percentageOrdered By: Gene Braun on 04-18-2024 Eosinophils/100 WBC (Bld) 2.8 % Normal 0-5 [facility] Comment on above: Performed By: #### L 3890.6202, L3410.9992, L3100.0460, L500.4100, L3890.6301, L3890.6102, L500.2500, L3300.1200, L800.1280, L803.2200, L100.0100, L503.6030, L3100.0300, L503.6550, L501.9985 #### [facility] [address] [facility] [place], [address] Erythrocyte distribution wid th ratioOrdered By: Gnee Braun on 04-18-2024 Erythrocyte distribution width (RBC) [Ratio] 15.2 % High 11.6-14.6 [facility] Comment on above: Performed By: #### L 3890.6202, L3410.9992, L3100.0460, L500.4100, L3890.6301, L3890.6102, L500.2500, L3300.1200, L800.1280, L803.2200, L100.0100, L503.6030, L3100.0300, L503.6550, L501.9985 #### [facility] [address] [place], [address] Erythrocyte distribution wid th standard deviationOrdered By: Gene Braun on 04-18-2024 Erythrocyte distribution width (RBC) [Entitic vol] 54.5 fL High 35.1-43.9 [facility] Erythrocyte distribution width (RBC) [Ratio] 54.5 fl High 35.1-43.9 [facility] Estimation of creatinine francisco aranceOrdered By: Gene Braun on 04-18-2024 Estimated Creatinine Clearance Calc 90.20 ml/min 50-250 [facility] FOLATES,SERUM (FOLIC ACID)on 04-18-2024 FOLATES,SERUM 20.00 ng/mL Normal 4.60-34.80 [facility] Comment on above: Order Comment: N Result Comment: Hemo lysis, Results will be affected, Requires Recollection. Performed By: #### L 3890.6202, L3410.9992, L3100.0460, L500.4100, L3890.6301, L3890.6102, L500.2500, L3300.1200, L800.1280, L803.2200, L100.0100, L503.6030, L3100.0300, L503.6550, L501.9985 #### [facility] [place], [address] Folate [Moles/Vol]Ordered By : Gene Braun on 04-18-2024 Serum Folate 20.00 ng/mL 4.60-34.80 [facility] Comment on above: Hemolysis, Results w ill be affected, Requires Recollection. Folate [Moles/volume] in Ser um or PlasmaOrdered By: Gene Braun on 04-18-2024 Folate [Moles/Vol] 20.00 ng/mL 4.60-34.80 [facility] Comment on above: Hemolysis, Results w ill be affected, Requires Recollection. GFR/1.73 sq M.predicted betty g non-blacks MDRD (S/P/Bld) [Vol rate/Area]Ordered By: Gene Braun on 04-18-2024 Estimated GFR (MDRD) Non-Af Amer 105 >60 [facility] Comment on above: mL/min/1.73m2 CKD-EP I Creatinine Equation (2020) Glomerular filtration rate ( GFR) estimation/1.73 sq m using serum, plasma, or whole bOrdered By: Gene Braun on 04-18-2024 GFR/1.73 sq M.predicted among non-blacks MDRD (S/P/Bld) [Vol rate/Area] 105 mL/min/{1.73_m2} >60 [facility] Comment on above: mL/min/1.73m2 CKD-EP I Creatinine Equation (2020) Hemoglobin measurementOrdere d By: Gene Braun on 04-18-2024 Hemoglobin (Bld) [Mass/Vol] 12.6 g/dL Normal 12.0-15.0 [facility] Comment on above: Performed By: #### L 3890.6202, L3410.9992, L3100.0460, L500.4100, L3890.6301, L3890.6102, L500.2500, L3300.1200, L800.1280, L803.2200, L100.0100, L503.6030, L3100.0300, L503.6550, L501.9985 #### [facility] [address] [place], [address] Immature granulocytes/100 WB C Auto (Bld)Ordered By: Gene Braun on 04-18-2024 Immature granulocytes/100 WBC (Bld) 0.300 % 0.0-0.9 [facility] Comment on above: IG% - Immature Granu locytes (promyelocytes, myelocytes and metamyelocytes) > 1% indicates that a LEFT SHIFT is Present. L503.0106on 04-18-2024 Cobalamin (Vitamin B12) [Mass/Vol] 525 pg/mL Normal 180-914 [facility] Comment on above: Performed By: #### L 3890.6202, L3410.9992, L3100.0460, L500.4100, L3890.6301, L3890.6102, L500.2500, L3300.1200, L800.1280, L803.2200, L100.0100, L503.6030, L3100.0300, L503.6550, L501.9985 #### [facility] [address] [facility] [place], [address] LDHon 04-18-2024 LDH 217 U/L Normal 84-246 [facility] Comment on above: Order Comment: 1 Performed By: #### L 3890.6202, L3410.9992, L3100.0460, L500.4100, L3890.6301, L3890.6102, L500.2500, L3300.1200, L800.1280, L803.2200, L100.0100, L503.6030, L3100.0300, L503.6550, L501.9985 #### [facility] [address] [place], [place], [id number] Laboratory - Chemistry and C hemistry - challengeOrdered By: Gene [facility] on 04-18-2024 AST [Catalytic activity/Vol] 48 U/L High <32 [facility] Lactate dehydrogenase (LDH) measurementOrdered By: Gene [facility] on 04-18-2024 LDH [Catalytic activity/Vol] 217 U/L 84-246 [facility] Lymphocytes Auto (Unsp spec) [#/Vol]Ordered By: Gene [facility] on 04-18-2024 Lymphocytes (Bld) [#/Vol] 0.62 10*3/uL Low 0.83-4.51 [facility] MCV (mean corpuscular volume ) determinationOrdered By: Gene [facility] on 04-18-2024 MCV (RBC) [Entitic vol] 99.5 fL High 81-99 [facility] Comment on above: Performed By: #### L 3890.6202, L3410.9992, L3100.0460, L500.4100, L3890.6301, L3890.6102, L500.2500, L3300.1200, L800.1280, L803.2200, L100.0100, L503.6030, L3100.0300, L503.6550, L501.9985 #### [facility] [address] [place], [address] Mean corpuscular hemoglobin (MCH) determinationOrdered By: [facility] MCH (RBC) [Entitic mass] 34.4 pg High 27.0-32.0 [facility] Comment on above: Performed By: #### L 3890.6202, L3410.9992, L3100.0460, L500.4100, L3890.6301, L3890.6102, L500.2500, L3300.1200, L800.1280, L803.2200, L100.0100, L503.6030, L3100.0300, L503.6550, L501.9985 #### [facility] [address] [place], [address] Mean corpuscular hemoglobin concentration (MCHC) determinationOrdered By: Gene Braun on 04-18-2024 MCHC (RBC) [Mass/Vol] 34.6 g/dL Normal 32-36 [facility] Comment on above: Performed By: #### L 3890.6202, L3410.9992, L3100.0460, L500.4100, L3890.6301, L3890.6102, L500.2500, L3300.1200, L800.1280, L803.2200, L100.0100, L503.6030, L3100.0300, L503.6550, L501.9985 #### [facility] [address] [place], [address] Mean platelet volume determi nationOrdered By: Gene Braun on 04-18-2024 Platelet mean volume (Bld) [Entitic vol] 10.6 fL Normal 6.2-12.0 [facility] Comment on above: Performed By: #### L 3890.6202, L3410.9992, L3100.0460, L500.4100, L3890.6301, L3890.6102, L500.2500, L3300.1200, L800.1280, L803.2200, L100.0100, L503.6030, L3100.0300, L503.6550, L501.9985 #### [facility] [address] [place], [address] Monocyte percentageOrdered B y: Gene Braun on 04-18-2024 Monocytes/100 WBC (Bld) 18.2 % High 0-10 [facility] Comment on above: Performed By: #### L 3890.6202, L3410.9992, L3100.0460, L500.4100, L3890.6301, L3890.6102, L500.2500, L3300.1200, L800.1280, L803.2200, L100.0100, L503.6030, L3100.0300, L503.6550, L501.9985 #### [facility] [address] [facility] [place], [address] Neutrophil percentageOrdered By: Gene Braun on 04-18-2024 Neutrophils/100 WBC (Bld) 58.7 % Normal 47-70 [facility] Comment on above: Performed By: #### L 3890.6202, L3410.9992, L3100.0460, L500.4100, L3890.6301, L3890.6102, L500.2500, L3300.1200, L800.1280, L803.2200, L100.0100, L503.6030, L3100.0300, L503.6550, L501.9985 #### [facility] [address] [place], [address] Nucleated red blood cell per centageOrdered By: Gene Braun on 04-18-2024 Nucleated RBC/100 WBC (Bld) [Ratio] 0 % 0-5 [facility] Platelet countOrdered By: Erin Braun on 04-18-2024 Platelets (Bld) [#/Vol] 159 10*3/uL Normal 150-450 [facility] Comment on above: Performed By: #### L 3890.6202, L3410.9992, L3100.0460, L500.4100, L3890.6301, L3890.6102, L500.2500, L3300.1200, L800.1280, L803.2200, L100.0100, L503.6030, L3100.0300, L503.6550, L501.9985 #### [facility] [address] [place], [address] Potassium (Unsp spec) [Mass/ Vol]Ordered By: Gene Braun on 04-18-2024 Potassium [Moles/Vol] 4.3 mmol/L 3.3-5.1 [facility] Potassium measurement (mass/ volume)Ordered By: Gene Braun on 04-18-2024 Potassium (Unsp spec) [Mass/Vol] 4.3 mmol/L 3.3-5.1 [facility] Serum creatinine measurement (mass/volume)Ordered By: Gene Braun on 04-18-2024 Creatinine [Mass/Vol] 0.74 mg/dL 0.70-1.20 [facility] Serum globulin measurementOr dered By: Gene Braun on 04-18-2024 Globulin (S) [Mass/Vol] 2.5 g/dL 2.2-4.2 [facility] Serum glucose measurement (m ass/volume)Ordered By: Gene Braun on 04-18-2024 Glucose [Mass/Vol] 99 mg/dL 70-99 [facility] Serum or plasma alanine valencia otransferase (ALT) measurementOrdered By: Gene Braun on 04-18-2024 ALT [Catalytic activity/Vol] 111 U/L High <35 [facility] Serum or plasma albumin ana maria urement (mass/volume)Ordered By: Gene Braun on 04-18-2024 Albumin [Mass/Vol] 4.2 g/dL 3.5-5.0 [facility] Serum or plasma albumin/glob ulin mass ratioOrdered By: Gene Braun on 04-18-2024 Albumin/Globulin [Mass ratio] 1.7 {ratio} 0.9-2.4 [facility] Serum or plasma alkaline juana sphatase measurementOrdered By: Gene Braun on 04-18-2024 ALP [Catalytic activity/Vol] 112 U/L High 35-104 [facility] Serum or plasma calcium ana maria urement (mass/volume)Ordered By: Gene Braun on 04-18-2024 Calcium [Mass/Vol] 9.4 mg/dL 7.6-11.0 [facility] Serum or plasma urea nitroge n measurement (mass/volume)Ordered By: Gene Braun on 04-18-2024 Urea nitrogen [Mass/Vol] 13 mg/dL 4-19 [facility] Sodium levelOrdered By: Luke Braun on 04-18-2024 Sodium [Moles/Vol] 137 mmol/L 133-145 [facility] Total proteinOrdered By: Pop Braun on 04-18-2024 Protein [Mass/Vol] 6.6 g/dL 5.9-8.4 [facility] Vitamin B12 ser/plasOrdered By: Gene Braun on 04-18-2024 Cobalamin (Vitamin B12) [Mass/Vol] 525 pg/mL 180-914 [facility] White blood cell (WBC) count Ordered By: Gene Braun on 04-18-2024 WBC (Bld) [#/Vol] 3.2 10*3/uL Low 4.4-11.0 [facility] Comment on above: Performed By: #### L 3890.6202, L3410.9992, L3100.0460, L500.4100, L3890.6301, L3890.6102, L500.2500, L3300.1200, L800.1280, L803.2200, L100.0100, L503.6030, L3100.0300, L503.6550, L501.9985 #### [facility] [address] [place], [place], [address] Direct serum free thyroxine (FT4) measurementOrdered By: Emily Sanders on 04-04-2024 Free T4 [Mass/Vol] 1.20 ng/dL 0.76-1.46 [facility] Internal Medicine Office Vis [facility] 04-04-2024 Internal Medicine Office Visit [facility], [id number] [place], [place] [address] OFFICE VISIT Date of Service: 04/04/24 MR#: [id number] Acct: [id number] Name: VIOLET HERNANDEZ Rep #: [id number] : 1985 Provider: Dr. Emily fofana MD Age/Sex: 38/F Location: [facility] Status: Signed Intake Vital Signs 03/31/24 06:26 04/03/24 09:49 04/04/24 09:14 04/04/24 09:24 Height 4 ft 10 in 4 ft 10 in 4 ft 10 in Weight: 137 lb BMI 28.6 BP 162/88 H 112/60 Blood Pressure Location Lt brachial Lt brachial Position Sitting Respiration 18 Pulse 78 Pulse Source Monitor Temp 98.4 F Temp Source Temporal Pulse Oximetry (%) 99 Oxygen Delivery Method room air Comment pt reports increase in heart palpitations pt states she feels lightheaded, PCP notified Intake Visit Reasons: [facility] FU Chief Complaint: [facility] FU Is patient in pain?: Yes (3 sternum pain ) Allergies No Known Allergies Allergy (Verified 04/04/24 09:13) Medications ???Medication ???Instructions ???Recorded ???Confirmed ???Type multivitamin 1 tablet PO DAILY 02/16/19 5 History vitamin E (dl, acetate) 180 mg 400 units PO DAILY 03/26/20 History (400 unit) capsule docusate sodium 100 mg capsule 100 mg PO DAILY PRN constipation 1 02/09/23 04/04/24 History (Stool Softener) albuterol sulfate 90 mcg/actuation 2 inh inhalation Q4H PRN shortne ss 03/31/24 04/04/24 History aerosol inhaler of breath or wheezing cholecalciferol (vitamin D3) 50 50 mcg PO DAILY 03/31/24 04/04/24 History mcg (2,000 unit) tablet (D3 DOTS) estradiol 0.1 mg/24 hr semiweekly 1 patch topical SUWE 03/31/24 History transdermal patch (Shaye) fluvoxamine 100 mg tablet 100 mg PO DAILY 03/31/24 04/04/24 History naproxen 375 mg tablet 375 mg PO BID #14 tabs 04/04/24 Rx Have you fallen in the past year?: No PFSH Medical History (Updated 04/04/24 @ 18:[address] Emily Sanders MD) Costochondritis COELHO (nonalcoholic steatohepatitis) Osteopenia Obesity (BMI 30.0-34.9) Abdominal pain Chronic diarrhea Preventative health care Depression Anxiety Cervical radiculopathy Hyperglycemia Encounter for vitamin deficiency screening Chronic neck pain Hypersomnolence Screening for thyroid disorder Health care maintenance Congestion of left ear Post-nasal drip Urinary frequency Nonrheumatic mitral (valve) prolapse Non-alcoholic fatty liver disease Suicide ideation Anxiety and depression Heart valve disorder Vitamin deficiency Vision problems Hormone deficiency Frequent headaches H/O emotional problems UTI (urinary tract infection) Seasonal allergies Surgical History History of hysterectomy Hx of local excision of skin lesion History of bone marrow biopsy Family History Brother Anxiety Hypertension Sister Anxiety Hypertension Uncle Anxiety Myocardial infarction Aunt Anxiety Grandmother Breast cancer Grandfather Myocardial infarction Father Hypertension Social History Smoking Status: Never smoker alcohol intake: never substance use type: does not use caffeine: Yes Type: tea Number of servings: 1 HPI HPI Chief Complaint: [facility] FU Details: VIOLET HERNANDEZ, is a 38 F who presents to the office today for follow-up status post recent ER visit. Diagnosed with influenza a few weeks ago. Chest tightness, increased sputum production and most concerning at this time is right sided chest pain. Reproducible pain/tenderness over the sternal area. Heat helps. She also states that she has been monitoring her heart rate and oxygen saturation and at night, her saturation drops down to the 80s. Reports increased daytime fatigue and somnolence. Had prior concerns for sleep apnea but sleep study done in the past with no significant concern for sleep apnea. Worsening symptoms lately. ROS Const Constitutional: Positive for fatigue; No body ache, chills, excessive sweating, fever(s), frequent falls, headache(s), snoring, weight change, sleep problems, abnormal sleep pattern or change in appetite Eyes Eyes: No blurry vision, change in vision, bulging eyes, eye pain or Light sensitivity ENT ENT: No abnormal hearing, ear or mastoid pain, tinnitus, nasal congestion, headache(s), neck pain or sore throat Resp Respiratory: Positive for cough and pain with cough; No snoring or wheezing Cardio Cardiology: Positive for irregular heart rhythm and slow heart rate; No chest pain at rest, chest pain with exertion, excessive sweating, shortness of breath, dyspnea on exertion, lightheadedness, orthopnea or palpitations Gastro GI: No abdominal pa (more content not included)... Normal [facility] Serum or plasma thyroid stim ulating hormone (TSH) measurement (units/volume)Ordered By: Emily Sanders on 04-04-2024 TSH Qn 0.705 uIU/mL 0.358-3.740 [facility] T4 Free Directon 02-24-2025 T4 FREE DIRECT 1.20 ng/dL Normal 0.76-1.46 [facility] Comment on above: Performed By: #### L 3890.6202, L3410.9992, L3100.0460, L500.4100, L3890.6301, L3890.6102, L500.2500, L3300.1200, L800.1280, L803.2200, L100.0100, L503.6030, L3100.0300, L503.6550, L501.9985 #### [facility] [address] [place], [place], [address] TSH QnOrdered By: Emily Sanders on 04-04-2024 Thyroid Stimulating Hormone (TSH) 0.705 uIU/mL 0.358-3.740 [facility] Thyroid Stim Hormone (TSH)on 04-04-2024 TSH 0.705 uIU/mL Normal 0.358-3.740 [facility] Comment on above: Performed By: #### L 3890.6202, L3410.9992, L3100.0460, L500.4100, L3890.6301, L3890.6102, L500.2500, L3300.1200, L800.1280, L803.2200, L100.0100, L503.6030, L3100.0300, L503.6550, L501.9985 #### [facility] [address] [place], [address] 12 Lead EKGon 04-03-2024 12 Lead EKG [facility] [address] [place] [address] 12 Lead EKG 04/03/24 1041 MR#: [id number] Acct: [id number] Name: VIOLET HERNANDEZ Rep #: [id number] : 1985 38 From: Thao Foster MD Attending Dr: Status: DEP ER Ordering Dr: Willy Burt MD Date: 04/03/24 Location: ED Sex: F C Admitted: Test Reason : TIGHTNESS/PAIN IN RIGHT CHEST Blood Pressure : */* mmHG Vent. Rate : 59 BPM Atrial Rate : 59 BPM P-R Int : 120 ms QRS Dur : 76 ms QT Int : 420 ms P-R-T Axes : 49 60 82 degrees QTcB Int : 415 ms Sinus bradycardia Otherwise normal ECG Confirmed by Thao Foster ([id number]), desk editor LAVERNE VIVEROS ([id number]) on 04/04/2024 10:25:10 AM Referred By: COLE Confirmed By: Thao Foster 04/04/24 1025 Date Thao Foster MD CC: Dr. Willy Burt MD; Dr. Emily Sanders MD Signed Normal [facility] Absolute lymphocyte countOrd ered By: Willy Burt on 04-03-2024 Lymphocytes Auto (Unsp spec) [#/Vol] 0.39 10*3/uL Low 0.83-4.51 [facility] Absolute neutrophil countOrd ered By: Willy Burt on 04-03-2024 Neutrophils (Bld) [#/Vol] 3.0 10*3/uL 2.0-7.7 [facility] Automated lymphocyte count a s percentage of total leukocytesOrdered By: Willy Burt on 04-03-2024 Lymphocytes/100 WBC Auto (Unsp spec) 10.7 % Low 19-41 [facility] Basic Metabolic Profile (BMP )on 04-03-2024 BUN/CRE 13.4 RATIO Normal 10-20 [facility] Comment on above: Order Comment: 'TROP ' Serial specimen #1, #2 or #3: 1 Performed By: #### L 3890.6202, L3410.9992, L3100.0460, L500.4100, L3890.6301, L3890.6102, L500.2500, L3300.1200, L800.1280, L803.2200, L100.0100, L503.6030, L3100.0300, L503.6550, L501.9985 #### [facility] [address] [place], [place], [id number] CA,Total 9.4 mg/dL Normal 8.5-10.1 [facility] Comment on above: Order Comment: 'TROP ' Serial specimen #1, #2 or #3: 1 Performed By: #### L 3890.6202, L3410.9992, L3100.0460, L500.4100, L3890.6301, L3890.6102, L500.2500, L3300.1200, L800.1280, L803.2200, L100.0100, L503.6030, L3100.0300, L503.6550, L501.9985 #### [facility] [address] [place], [place], [id number] Chloride [Moles/Vol] 109 mmol/L High 98-107 [facility] Comment on above: Order Comment: 'TROP ' Serial specimen #1, #2 or #3: 1 Performed By: #### L 3890.6202, L3410.9992, L3100.0460, L500.4100, L3890.6301, L3890.6102, L500.2500, L3300.1200, L800.1280, L803.2200, L100.0100, L503.6030, L3100.0300, L503.6550, L501.9985 #### [facility] [address] [place], [place], [id number] (089) CO2 [Moles/Vol] 21.0 mmol/L Normal 21.0-32.0 [facility] Comment on above: Order Comment: 'TROP ' Serial specimen #1, #2 or #3: 1 Performed By: #### L 3890.6202, L3410.9992, L3100.0460, L500.4100, L3890.6301, L3890.6102, L500.2500, L3300.1200, L800.1280, L803.2200, L100.0100, L503.6030, L3100.0300, L503.6550, L501.9985 #### [facility] [address] [place], [place], [phone] (357) Creatinine [Mass/Vol] 0.90 mg/dL Normal 0.55-1.02 [facility] Comment on above: Order Comment: 'TROP ' Serial specimen #1, #2 or #3: 1 Result Comment: The validity of the calculated GFR GFRAA in patients over 70 years has not been determined. Clinical correlation is essential. Performed By: #### L 3890.6202, L3410.9992, L3100.0460, L500.4100, L3890.6301, L3890.6102, L500.2500, L3300.1200, L800.1280, L803.2200, L100.0100, L503.6030, L3100.0300, L503.6550, L501.9985 #### [facility] [address] [place], [place], [phone] (644) ECRCL 69.39 ml/min Normal [facility] Comment on above: Order Comment: 'TROP ' Serial specimen #1, #2 or #3: 1 Performed By: #### L 3890.6202, L3410.9992, L3100.0460, L500.4100, L3890.6301, L3890.6102, L500.2500, L3300.1200, L800.1280, L803.2200, L100.0100, L503.6030, L3100.0300, L503.6550, L501.9985 #### [facility] [address] [place], [place], [phone] (697) EST GFR - AA 90 mL/min Normal >60 [facility] Comment on above: Order Comment: 'TROP ' Serial specimen #1, #2 or #3: 1 Result Comment: Afri can Turkish GFR Calc Performed By: #### L 3890.6202, L3410.9992, L3100.0460, L500.4100, L3890.6301, L3890.6102, L500.2500, L3300.1200, L800.1280, L803.2200, L100.0100, L503.6030, L3100.0300, L503.6550, L501.9985 #### [facility] [address] [place], [place], [id number] (966) GAP 8 Normal 5-15 [facility] Comment on above: Order Comment: 'TROP ' Serial specimen #1, #2 or #3: 1 Performed By: #### L 3890.6202, L3410.9992, L3100.0460, L500.4100, L3890.6301, L3890.6102, L500.2500, L3300.1200, L800.1280, L803.2200, L100.0100, L503.6030, L3100.0300, L503.6550, L501.9985 #### [facility] [address] [place], [place], [phone] (432) GFR/1.73 sq M.predicted among non-blacks MDRD (S/P/Bld) [Vol rate/Area] 74 mL/min/{1.73_m2} Normal >60 [facility] Comment on above: Order Comment: 'TROP ' Serial specimen #1, #2 or #3: 1 Result Comment: Non- GFR Calc Performed By: #### L 3890.6202, L3410.9992, L3100.0460, L500.4100, L3890.6301, L3890.6102, L500.2500, L3300.1200, L800.1280, L803.2200, L100.0100, L503.6030, L3100.0300, L503.6550, L501.9985 #### [facility] [address] [place], [place], [phone] (152) Glucose [Mass/Vol] 142 mg/dL High 74-106 [facility] Comment on above: Order Comment: 'TROP ' Serial specimen #1, #2 or #3: 1 Result Comment: Fast ing Glucose result greater than or equal to 126 mg/dL suggests DIABETES MELLITUS per A.D.A. criteria. Performed By: #### L 3890.6202, L3410.9992, L3100.0460, L500.4100, L3890.6301, L3890.6102, L500.2500, L3300.1200, L800.1280, L803.2200, L100.0100, L503.6030, L3100.0300, L503.6550, L501.9985 #### [facility] [address] [place], [address] (239) Potassium [Moles/Vol] 4.7 mmol/L Normal 3.5-5.1 [facility] Comment on above: Order Comment: 'TROP ' Serial specimen #1, #2 or #3: 1 Performed By: #### L 3890.6202, L3410.9992, L3100.0460, L500.4100, L3890.6301, L3890.6102, L500.2500, L3300.1200, L800.1280, L803.2200, L100.0100, L503.6030, L3100.0300, L503.6550, L501.9985 #### [facility] [address] [place], [address] Sodium [Moles/Vol] 138 mmol/L Normal 136-145 [facility] Comment on above: Order Comment: 'TROP ' Serial specimen #1, #2 or #3: 1 Performed By: #### L 3890.6202, L3410.9992, L3100.0460, L500.4100, L3890.6301, L3890.6102, L500.2500, L3300.1200, L800.1280, L803.2200, L100.0100, L503.6030, L3100.0300, L503.6550, L501.9985 #### [facility] [address] [place], [address] ( Urea nitrogen [Mass/Vol] 12 mg/dL Normal 7-18 [facility] Comment on above: Order Comment: 'TROP ' Serial specimen #1, #2 or #3: 1 Performed By: #### L 3890.6202, L3410.9992, L3100.0460, L500.4100, L3890.6301, L3890.6102, L500.2500, L3300.1200, L800.1280, L803.2200, L100.0100, L503.6030, L3100.0300, L503.6550, L501.9985 #### [facility] [address] [place], [address] (460) Basophil percentageOrdered B y: Willy Burt on 04-03-2024 Basophils/100 WBC (Bld) 0.3 % 0-1 [facility] Blood urea nitrogen (BUN)/cr eatinine ratioOrdered By: Willy Burt on 04-03-2024 Urea nitrogen/Creatinine [Mass ratio] 13.4 mg/mg 10-20 [facility] CBC W/Diff, Automatedon - Absolute Lymph 0.39 X10 3/uL Low 0.83-4.51 [facility] Comment on above: Order Comment: REDRA W. PREVIOUS SPECIMEN REJECTED DUE TOQNS. 04/03/24 Marcia Sinha. Performed By: #### L 3890.6202, L3410.9992, L3100.0460, L500.4100, L3890.6301, L3890.6102, L500.2500, L3300.1200, L800.1280, L803.2200, L100.0100, L503.6030, L3100.0300, L503.6550, L501.9985 #### [facility] [address] [place], [address] ( Absolute Neut 3.0 X10 3/uL Normal 2.0-7.7 [facility] Comment on above: Order Comment: REDRA W. PREVIOUS SPECIMEN REJECTED DUE TOQNS. 04/03/24 1107 Liza Sinha. Performed By: #### L 3890.6202, L3410.9992, L3100.0460, L500.4100, L3890.6301, L3890.6102, L500.2500, L3300.1200, L800.1280, L803.2200, L100.0100, L503.6030, L3100.0300, L503.6550, L501.9985 #### [facility] [address] [place], [address] Basophils/100 WBC (Bld) 0.3 % Normal 0-1 [facility] Comment on above: Order Comment: MALINDA W. PREVIOUS SPECIMEN REJECTED DUE TOQNS. 04/03/247 Liza Sinha. Performed By: #### L 3890.6202, L3410.9992, L3100.0460, L500.4100, L3890.6301, L3890.6102, L500.2500, L3300.1200, L800.1280, L803.2200, L100.0100, L503.6030, L3100.0300, L503.6550, L501.9985 #### [facility] [address] [facility] [place], [address] Eosinophils/100 WBC (Bld) 0.0 % Normal 0-5 [facility] Comment on above: Order Comment: MALINDA Mead. PREVIOUS SPECIMEN REJECTED DUE TOQNS. 04/03/247 Liza Sinha. Performed By: #### L 3890.6202, L3410.9992, L3100.0460, L500.4100, L3890.6301, L3890.6102, L500.2500, L3300.1200, L800.1280, L803.2200, L100.0100, L503.6030, L3100.0300, L503.6550, L501.9985 #### [facility] [address] [place], [place], [phone] Erythrocyte distribution width (RBC) [Ratio] 14.3 % Normal 11.6-14.6 [facility] Comment on above: Order Comment: MALINDA Mead. PREVIOUS SPECIMEN REJECTED DUE TOQNS. 04/03/247 Liza Sinha. Performed By: #### L 3890.6202, L3410.9992, L3100.0460, L500.4100, L3890.6301, L3890.6102, L500.2500, L3300.1200, L800.1280, L803.2200, L100.0100, L503.6030, L3100.0300, L503.6550, L501.9985 #### [facility] [address] [place], [place], [address] Hematocrit (Bld) [Volume fraction] 36.7 % Low 37-47 [facility] Comment on above: Order Comment: MALINDA W. PREVIOUS SPECIMEN REJECTED DUE TOQNS. 04/03/241106 Liza Sinha. Performed By: #### L 3890.6202, L3410.9992, L3100.0460, L500.4100, L3890.6301, L3890.6102, L500.2500, L3300.1200, L800.1280, L803.2200, L100.0100, L503.6030, L3100.0300, L503.6550, L501.9985 #### [facility] [address] [place], [place], [address] Hemoglobin (Bld) [Mass/Vol] 12.7 g/dL Normal 12.0-15.0 [facility] Comment on above: Order Comment: MALINDA W. PREVIOUS SPECIMEN REJECTED DUE TOQNS. 04/03/247 Liza Sinha. Performed By: #### L 3890.6202, L3410.9992, L3100.0460, L500.4100, L3890.6301, L3890.6102, L500.2500, L3300.1200, L800.1280, L803.2200, L100.0100, L503.6030, L3100.0300, L503.6550, L501.9985 #### [facility] [address] [place], [address] IG% 0.800 Normal 0.0-0.9 [facility] Comment on above: Order Comment: REDRA W. PREVIOUS SPECIMEN REJECTED DUE TOQNS. 04/03/24 1107 Liza Fontaineno. Result Comment: IG% - Immature Granulocytes (promyelocytes, myelocytes and metamyelocytes) > 1% indicates that a LEFT SHIFT is Present. Performed By: #### L 3890.6202, L3410.9992, L3100.0460, L500.4100, L3890.6301, L3890.6102, L500.2500, L3300.1200, L800.1280, L803.2200, L100.0100, L503.6030, L3100.0300, L503.6550, L501.9985 #### [facility] [address] [place], [address] Lymphocytes/100 WBC (Bld) 10.7 % Low 19-41 [facility] Comment on above: Order Comment: REDRA W. PREVIOUS SPECIMEN REJECTED DUE TOQNS. 04/03/24 1107 Liza Sinha. Performed By: #### L 3890.6202, L3410.9992, L3100.0460, L500.4100, L3890.6301, L3890.6102, L500.2500, L3300.1200, L800.1280, L803.2200, L100.0100, L503.6030, L3100.0300, L503.6550, L501.9985 #### [facility] [address] [place], [address] MCH (RBC) [Entitic mass] 33.5 pg High 27.0-32.0 [facility] Comment on above: Order Comment: REDRA W. PREVIOUS SPECIMEN REJECTED DUE TOQNS. 04/03/247 Liza Sinha. Performed By: #### L 3890.6202, L3410.9992, L3100.0460, L500.4100, L3890.6301, L3890.6102, L500.2500, L3300.1200, L800.1280, L803.2200, L100.0100, L503.6030, L3100.0300, L503.6550, L501.9985 #### [facility] [address] [place], [address] MCHC (RBC) [Mass/Vol] 34.6 g/dL Normal 32-36 [facility] Comment on above: Order Comment: RED W. PREVIOUS SPECIMEN REJECTED DUE TOQNS. 04/03/241106 Liza Sinha. Performed By: #### L 3890.6202, L3410.9992, L3100.0460, L500.4100, L3890.6301, L3890.6102, L500.2500, L3300.1200, L800.1280, L803.2200, L100.0100, L503.6030, L3100.0300, L503.6550, L501.9985 #### [facility] [address] [place], [address] MCV (RBC) [Entitic vol] 96.8 fL Normal 81-99 [facility] Comment on above: Order Comment: RED W. PREVIOUS SPECIMEN REJECTED DUE TOQNS. 04/03/247 Liza Sinha. Performed By: #### L 3890.6202, L3410.9992, L3100.0460, L500.4100, L3890.6301, L3890.6102, L500.2500, L3300.1200, L800.1280, L803.2200, L100.0100, L503.6030, L3100.0300, L503.6550, L501.9985 #### [facility] [address] [place], [place], [phone] Monocytes/100 WBC (Bld) 5.5 % Normal 0-10 [facility] Comment on above: Order Comment: MALINDA Mead. PREVIOUS SPECIMEN REJECTED DUE TOQNS. 04/03/247 Liza Sinha. Performed By: #### L 3890.6202, L3410.9992, L3100.0460, L500.4100, L3890.6301, L3890.6102, L500.2500, L3300.1200, L800.1280, L803.2200, L100.0100, L503.6030, L3100.0300, L503.6550, L501.9985 #### [facility] [address] [place], [place], [phone] Neutrophils/100 WBC (Bld) 82.7 % High 47-70 [facility] Comment on above: Order Comment: MALINDA Mead. PREVIOUS SPECIMEN REJECTED DUE TOQNS. 04/03/247 Liza Sinha. Performed By: #### L 3890.6202, L3410.9992, L3100.0460, L500.4100, L3890.6301, L3890.6102, L500.2500, L3300.1200, L800.1280, L803.2200, L100.0100, L503.6030, L3100.0300, L503.6550, L501.9985 #### [facility] [address] [facility] [place], [place], [phone] Nucleated RBC (Bld) [#/Vol] 0 10*3/uL Normal 0-5 [facility] Comment on above: Order Comment: MALINDA Mead. PREVIOUS SPECIMEN REJECTED DUE TOQNS. 04/03/247 Liza Sinha. Performed By: #### L 3890.6202, L3410.9992, L3100.0460, L500.4100, L3890.6301, L3890.6102, L500.2500, L3300.1200, L800.1280, L803.2200, L100.0100, L503.6030, L3100.0300, L503.6550, L501.9985 #### [facility] [address] [place], [address] Platelet mean volume (Bld) [Entitic vol] 9.9 fL Normal 6.2-12.0 [facility] Comment on above: Order Comment: MALINDA Mead. PREVIOUS SPECIMEN REJECTED DUE TOQNS. 04/03/24 1107 Liza Sinha. Performed By: #### L 3890.6202, L3410.9992, L3100.0460, L500.4100, L3890.6301, L3890.6102, L500.2500, L3300.1200, L800.1280, L803.2200, L100.0100, L503.6030, L3100.0300, L503.6550, L501.9985 #### [facility] [address] [place], [address] Platelets (Bld) [#/Vol] 132 10*3/uL Low 150-450 [facility] Comment on above: Order Comment: MALINDA Mead. PREVIOUS SPECIMEN REJECTED DUE TOQNS. 04/03/247 Liza Sinha. Performed By: #### L 3890.6202, L3410.9992, L3100.0460, L500.4100, L3890.6301, L3890.6102, L500.2500, L3300.1200, L800.1280, L803.2200, L100.0100, L503.6030, L3100.0300, L503.6550, L501.9985 #### [facility] [address] [place], [address] RBC (Bld) [#/Vol] 3.79 10*6/uL Low 4.2-5.4 [facility] Comment on above: Order Comment: MALINDA W. PREVIOUS SPECIMEN REJECTED DUE TOQNS. 04/03/24 1107 Liza Sinha. Performed By: #### L 3890.6202, L3410.9992, L3100.0460, L500.4100, L3890.6301, L3890.6102, L500.2500, L3300.1200, L800.1280, L803.2200, L100.0100, L503.6030, L3100.0300, L503.6550, L501.9985 #### [facility] [address] [place], [address] (472) RDW SD 50.6 fl High 35.1-43.9 [facility] Comment on above: Order Comment: MALINDA W. PREVIOUS SPECIMEN REJECTED DUE TOQNS. 04/03/247 Liza Sinha. Performed By: #### L 3890.6202, L3410.9992, L3100.0460, L500.4100, L3890.6301, L3890.6102, L500.2500, L3300.1200, L800.1280, L803.2200, L100.0100, L503.6030, L3100.0300, L503.6550, L501.9985 #### [facility] [address] [place], [address] WBC (Bld) [#/Vol] 3.6 10*3/uL Low 4.4-11.0 [facility] Comment on above: Order Comment: MALINDA W. PREVIOUS SPECIMEN REJECTED DUE TOQNS. 04/03/247 Liza Sinha. Performed By: #### L 3890.6202, L3410.9992, L3100.0460, L500.4100, L3890.6301, L3890.6102, L500.2500, L3300.1200, L800.1280, L803.2200, L100.0100, L503.6030, L3100.0300, L503.6550, L501.9985 #### [facility] [address] [place], [address] Absolute Neut Normal 2.0-7.7 [facility] Comment on above: Result Comment: This specimen has been REJECTED due to Laboratory criteria: Quanity Not Sufficient. LAURIEManuela has been notified of need of recollection. 04/03/24 1106 Liza Sinha Performed By: #### L 3890.6202, L3410.9992, L3100.0460, L500.4100, L3890.6301, L3890.6102, L500.2500, L3300.1200, L800.1280, L803.2200, L100.0100, L503.6030, L3100.0300, L503.6550, L501.9985 #### [facility] [address] [place], [place], [id number] HCT Normal 37-47 [facility] Comment on above: Result Comment: This specimen has been REJECTED due to Laboratory criteria: Quanity Not Sufficient. RAEGAN has been notified of need of recollection. 04/03/24 1106 Liza Sinha Performed By: #### L 3890.6202, L3410.9992, L3100.0460, L500.4100, L3890.6301, L3890.6102, L500.2500, L3300.1200, L800.1280, L803.2200, L100.0100, L503.6030, L3100.0300, L503.6550, L501.9985 #### [facility] [address] [place], [place], [id number] HGB Normal 12.0-15.0 [facility] Comment on above: Result Comment: This specimen has been REJECTED due to Laboratory criteria: Quanity Not Sufficient. RAEGAN has been notified of need of recollection. 04/03/24 1106 Liza Sinha Performed By: #### L 3890.6202, L3410.9992, L3100.0460, L500.4100, L3890.6301, L3890.6102, L500.2500, L3300.1200, L800.1280, L803.2200, L100.0100, L503.6030, L3100.0300, L503.6550, L501.9985 #### [facility] [address] [place], [place], [id number] [facility] Normal 27.0-32.0 [facility] Comment on above: Result Comment: This specimen has been REJECTED due to Laboratory criteria: Quanity Not Sufficient. RAEGAN has been notified of need of recollection. 04/03/24 1106 Liza Sinha Performed By: #### L 3890.6202, L3410.9992, L3100.0460, L500.4100, L3890.6301, L3890.6102, L500.2500, L3300.1200, L800.1280, L803.2200, L100.0100, L503.6030, L3100.0300, L503.6550, L501.9985 #### [facility] [address] [place], [place], [id number] [facility] Normal 32-36 [facility] Comment on above: Result Comment: This specimen has been REJECTED due to Laboratory criteria: Quanity Not Sufficient. RAEGAN has been notified of need of recollection. 04/03/24 1106 Liza Sinha Performed By: #### L 3890.6202, L3410.9992, L3100.0460, L500.4100, L3890.6301, L3890.6102, L500.2500, L3300.1200, L800.1280, L803.2200, L100.0100, L503.6030, L3100.0300, L503.6550, L501.9985 #### [facility] [address] [facility] [address] [place], [place], [id number] [facility] Normal 81-99 [facility] Comment on above: Result Comment: This specimen has been REJECTED due to Laboratory criteria: Quanity Not Sufficient. RAEGAN has been notified of need of recollection. 04/03/24 1106 Liza Sinha Performed By: #### L 3890.6202, L3410.9992, L3100.0460, L500.4100, L3890.6301, L3890.6102, L500.2500, L3300.1200, L800.1280, L803.2200, L100.0100, L503.6030, L3100.0300, L503.6550, L501.9985 #### [facility] [address] [place], [place], [id number] (053) NEUT% Normal 47-70 [facility] Comment on above: Result Comment: This specimen has been REJECTED due to Laboratory criteria: Quanity Not Sufficient. RAEGAN has been notified of need of recollection. 04/03/24 1106 Liza Sinha Performed By: #### L 3890.6202, L3410.9992, L3100.0460, L500.4100, L3890.6301, L3890.6102, L500.2500, L3300.1200, L800.1280, L803.2200, L100.0100, L503.6030, L3100.0300, L503.6550, L501.9985 #### [facility] [address] [place], [place], [id number] (821) PLT Normal 150-450 [facility] Comment on above: Result Comment: This specimen has been REJECTED due to Laboratory criteria: Quanity Not Sufficient. RAEGAN has been notified of need of recollection. 04/03/24 1106 Liza Sinha Performed By: #### L 3890.6202, L3410.9992, L3100.0460, L500.4100, L3890.6301, L3890.6102, L500.2500, L3300.1200, L800.1280, L803.2200, L100.0100, L503.6030, L3100.0300, L503.6550, L501.9985 #### [facility] [address] [place], [place], [id number] (700) RBC Normal 4.2-5.4 [facility] Comment on above: Result Comment: This specimen has been REJECTED due to Laboratory criteria: Quanity Not Sufficient. MARTIKACIEManuela has been notified of need of recollection. 04/03/24 1106 Liza Sinha Performed By: #### L 3890.6202, L3410.9992, L3100.0460, L500.4100, L3890.6301, L3890.6102, L500.2500, L3300.1200, L800.1280, L803.2200, L100.0100, L503.6030, L3100.0300, L503.6550, L501.9985 #### [facility] [address] [place], [place], [id number] RDW CV Normal 11.6-14.6 [facility] Comment on above: Result Comment: This specimen has been REJECTED due to Laboratory criteria: Quanity Not Sufficient. RAEGAN has been notified of need of recollection. 04/03/24 1106 Liza Sinha Performed By: #### L 3890.6202, L3410.9992, L3100.0460, L500.4100, L3890.6301, L3890.6102, L500.2500, L3300.1200, L800.1280, L803.2200, L100.0100, L503.6030, L3100.0300, L503.6550, L501.9985 #### [facility] [address] [place], [place], [id number] RDW SD Normal 35.1-43.9 [facility] Comment on above: Result Comment: This specimen has been REJECTED due to Laboratory criteria: Quanity Not Sufficient. RAEGAN has been notified of need of recollection. 04/03/24 1106 Liza Sinha Performed By: #### L 3890.6202, L3410.9992, L3100.0460, L500.4100, L3890.6301, L3890.6102, L500.2500, L3300.1200, L800.1280, L803.2200, L100.0100, L503.6030, L3100.0300, L503.6550, L501.9985 #### [facility] [address] [place], [address] WBC Normal 4.4-11.0 [facility] Comment on above: Result Comment: This specimen has been REJECTED due to Laboratory criteria: Quanity Not Sufficient. RAEGAN has been notified of need of recollection. 04/03/24 Sissy6 Liza Sinha Performed By: #### L 3890.6202, L3410.9992, L3100.0460, L500.4100, L3890.6301, L3890.6102, L500.2500, L3300.1200, L800.1280, L803.2200, L100.0100, L503.6030, L3100.0300, L503.6550, L501.9985 #### [facility] [address] [place], [address] Carbon dioxide measurementOr dered By: Willy Burt on 04-03-2024 CO2 [Moles/Vol] 21.0 mmol/L 21.0-32.0 [facility] Chest PA and Lateralon 04-03 Chest PA and Lateral [facility] Imaging Services [address] [place] [address] Chest PA and Lateral MR#: [id number] Acct: [id number] Name: VIOLET HERNANDEZ Rep #: [id number] : 1985 F 38 From: Hi Pemberton MD PCP: Dr. Emily Sanders MD Status: REG ER Study: Chest PA and Lateral Date of Exam: 04/03/24 Exam# [id number] Ordering Dr: Willy Burt MD PROCEDURE: CHEST PA AND LATERAL REASON FOR EXAM: Chest tightness, congestion TECHNIQUE: Frontal and lateral views of the chest. COMPARISON: None. 03/31/24 FINDINGS: The heart size is normal. The mediastinal contour is unremarkable. The lungs are clear. The bones are unremarkable. RAD/Chest PA and Lateral IMPRESSION: No radiographic evidence of acute cardiopulmonary disease Reading Location: [facility] CC: Dr. Willy Burt MD; Dr. Emily Sanders MD Range Manager: Signed Normal [facility] Chloride measurementOrdered By: Willy Burt on 04-03-2024 Chloride [Moles/Vol] 109 mmol/L High 98-107 [facility] Emergency Department Summary on 04-03-2024 Emergency Department Summary [facility] Medical Records Department [address] [place] [address] Emergency Department Summary 04/03/24 MR#: [id number] Acct: [id number] Name: VIOLET HERNANDEZ Rep #: [id number] : 1985 38 From: Willy Burt MD PCP: Dr. Emily Sanders MD Status:REG ER Location: ED HPI History of Present Illness Chief Complaint: Chest Other Informant: patient Associated Symptoms Associated Symptoms ED: cough Narrative Narrative: Patient has been ill for about 9 or 10 days. She was seen here in the ER for this respiratory illness and diagnosed with influenza A. She was having lots of chest tightness and some mild dyspnea so she was prescribed prednisone and feels like it is not helping anything. She is sometimes waking up in the middle of the night gasping for air and she has checked her pulse ox and at 1 point was 80% on room air but taking deep breaths resolve that. She admits that this is not new and this has happened in the past before this illness, but when she checked her pulse ox she usually was in the low 90% range. She states for the most part now, she has persistent chest tightness and points to her sternum, that gets better with heating pad and pushing on it, but not with albuterol inhaler/nebulizer, but she is not dyspneic when she is not coughing. She has a lot of chest congestion. She feels like she crackles when she takes breaths. She does have some mild dyspnea with exertion. No leg pain or swelling. No pleuritic discomfort. [facility] Medical History COELHO (nonalcoholic steatohepatitis) Osteopenia Obesity (BMI 30.0-34.9) Abdominal pain Chronic diarrhea Preventative health care Depression Anxiety Cervical radiculopathy Hyperglycemia Encounter for vitamin deficiency screening Chronic neck pain Hypersomnolence Screening for thyroid disorder Health care maintenance Congestion of left ear Post-nasal drip Urinary frequency Nonrheumatic mitral (valve) prolapse Non-alcoholic fatty liver disease Suicide ideation Anxiety and depression Heart valve disorder Vitamin deficiency Vision problems Hormone deficiency Frequent headaches H/O emotional problems UTI (urinary tract infection) Seasonal allergies Home Medications ???Medication ???Instructions ???Recorded ???Last Taken ???Type multivitamin 1 tablet PO DAILY 02/16/19 Unknown History vitamin E (dl, acetate) 180 mg 400 units PO DAILY 03/26/20 Unknow n History (400 unit) capsule docusate sodium 100 mg capsule 100 mg PO DAILY PRN constipation 1 02/09/23 Unknown History (Stool Softener) albuterol sulfate 90 mcg/actuation 2 inh inhalation Q4H PRN shortne ss 03/31/24 Unknown History aerosol inhaler of breath or wheezing cholecalciferol (vitamin D3) 50 50 mcg PO DAILY 03/31/24 Unknown H istory mcg (2,000 unit) tablet (D3 DOTS) estradiol 0.1 mg/24 hr semiweekly 1 patch topical SUWE 03/31/24 Unk nown History transdermal patch (Shaye) fluvoxamine 100 mg tablet 100 mg PO DAILY 03/31/24 Unknown H istory prednisone 20 mg tablet 60 mg (3 x 20 mg) PO DAILY #15 Unknown Rx TABLETS Allergy/AdvReac Type Severity Reaction Status Date / Time No Known Allergies Allergy Verified 03/31/24 06:26 Family History Brother Anxiety Hypertension Sister Anxiety Hypertension Uncle Anxiety Myocardial infarction Aunt Anxiety Grandmother Breast cancer Grandfather Myocardial infarction Father Hypertension Surgical History History of hysterectomy Hx of local excision of skin lesion History of bone marrow biopsy Social History Smoking Status: Never smoker alcohol intake: never substance use type: does not use caffeine: Yes Type: tea Number of servings: 1 ROS ROS ED Constitutional Constitutional ED: Reports body ache(s), chills, fatigue, fever(s), headache(s) and malaise Eyes Eyes: Denies change in vision or diplopia ENT ENT ED: Denies rhinorrhea or sore throat Cardiovascular Cardiovascular: Reports palpitations and paroxysmal nocturnal dyspnea; Denies orthopnea or radiating jaw, neck or arm pain Respiratory/Chest Respiratory/Chest: Reports chest tightness, cough, dyspnea, dyspnea on exertion and paroxysmal nocturnal dyspnea; Denies orthopnea Gastrointestinal Gastrointestinal: Reports diarrhea; Denies abdominal pain, nausea or vomiting Genitourinary Genitourinary ED: Denies dysuria or hematuria Musculoskeletal Musculoskeletal: Reports back pain; Denies neck pain Integumentary Denies abscess or rash Neurologic Neurologic: Reports headache(s); Denies paresthesias or weakness EXAM Physical Exam C (more content not included)... Normal [facility] Eosinophil percentageOrdered By: Willy Burt on 04-03-2024 Eosinophils/100 WBC (Bld) 0.0 % 0-5 [facility] Erythrocyte distribution wid th ratioOrdered By: Willy Burt 04-03-2024 Erythrocyte distribution width (RBC) [Ratio] 14.3 % 11.6-14.6 [facility] Erythrocyte distribution wid th standard deviationOrdered By: Willy Burt on 04-03-2024 Erythrocyte distribution width (RBC) [Entitic vol] 50.6 fL High 35.1-43.9 [facility] Erythrocyte distribution width (RBC) [Ratio] 50.6 fl High 35.1-43.9 [facility] Estimated glomerular filtrat ion rate (GFR) AmericanOrdered By: Willy Burt on 04-03-2024 Estimated GFR (MDRD) Amer 90 mL/min >60 [facility] Comment on above: GFR Calc Estimation of creatinine francisco aranceOrdered By: Willy Burt on 04-03-2024 Estimated Creatinine Clearance Calc 69.39 ml/min [facility] Glomerular filtration rate ( GFR) estimationOrdered By: Willy Burt 04-03-2024 Estimated GFR (MDRD) Non-Af Amer 74 mL/min >60 [facility] Comment on above: Non- GFR Calc GFR/1.73 sq M.predicted among non-blacks MDRD (S/P/Bld) [Vol rate/Area] 74 mL/min/{1.73_m2} >60 [facility] Comment on above: Non- GFR Calc Glucose measurementOrdered B y: Willy Burt on 04-03-2024 Glucose [Mass/Vol] 142 mg/dL High 74-106 [facility] Comment on above: Fasting Glucose resu lt greater than or equal to 126 mg/dL suggests DIABETES MELLITUS per A.D.A. criteria. Hematocrit Auto (Bld) [Volum e fraction]Ordered By: Willy Burt on 04-03-2024 Hematocrit (Bld) [Volume fraction] 36.7 % Low 37-47 [facility] Hemoglobin measurementOrdere d By: Willy Burt on 04-03-2024 Hemoglobin (Bld) [Mass/Vol] 12.7 g/dL 12.0-15.0 [facility] Immature granulocytes/100 WB C Auto (Bld)Ordered By: Willy Burt on 04-03-2024 Immature granulocytes/100 WBC (Bld) 0.800 % 0.0-0.9 [facility] Comment on above: IG% - Immature Granu locytes (promyelocytes, myelocytes and metamyelocytes) > 1% indicates that a LEFT SHIFT is Present. L501.4020on 04-03-2024 TROPONIN-I HS 4 pg/mL Normal 3.0-54.0 [facility] Comment on above: Order Comment: 'TROP ' Serial specimen #1, #2 or #3: 1 Result Comment: Odilia thompson Note: New Test Units and Gender Specific Reference Ranges. For more information see Policy Stat Procedure [place] High Sensitivity Troponin (TNIH) and attachments. Performed By: #### L 3890.6202, L3410.9992, L3100.0460, L500.4100, L3890.6301, L3890.6102, L500.2500, L3300.1200, L800.1280, L803.2200, L100.0100, L503.6030, L3100.0300, L503.6550, L501.9985 #### [facility] [address] [place], [address] Lymphocytes Auto (Unsp spec) [#/Vol]Ordered By: Willy Burt on 04-03-2024 Lymphocytes (Bld) [#/Vol] 0.39 10*3/uL Low 0.83-4.51 [facility] Lymphocytes/100 WBC Auto (Un sp spec)Ordered By: Willy Burt on 04-03-2024 Lymphocytes/100 WBC (Bld) 10.7 % Low 19-41 [facility] MCV (mean corpuscular volume ) determinationOrdered By: Willy Burt on 04-03-2024 MCV (RBC) [Entitic vol] 96.8 fL 81-99 [facility] Mean corpuscular hemoglobin (MCH) determinationOrdered By: Willy Burt on 04-03-2024 MCH (RBC) [Entitic mass] 33.5 pg High 27.0-32.0 [facility] Mean corpuscular hemoglobin concentration (MCHC) determinationOrdered By: Willy Burt on 04-03-2024 MCHC (RBC) [Mass/Vol] 34.6 g/dL 32-36 [facility] Mean platelet volume determi nationOrdered By: Willy Burt on 04-03-2024 Platelet mean volume (Bld) [Entitic vol] 9.9 fL 6.2-12.0 [facility] Monocyte percentageOrdered B y: Willy Burt on 04-03-2024 Monocytes/100 WBC (Bld) 5.5 % 0-10 [facility] Neutrophil percentageOrdered By: Willy Burt on 04-03-2024 Neutrophils/100 WBC (Bld) 82.7 % High 47-70 [facility] Nucleated red blood cell per centageOrdered By: Willy Burt on 04-03-2024 Nucleated RBC/100 WBC (Bld) [Ratio] 0 % 0-5 [facility] Platelet countOrdered By: Christiano Burt on 04-03-2024 Platelets (Bld) [#/Vol] 132 10*3/uL Low 150-450 [facility] Potassium measurementOrdered By: Willy Brut on 02-23-2025 Potassium [Moles/Vol] 4.7 mmol/L 3.5-5.1 [facility] RBC Auto (Bld) [#/Vol]Ordere d By: Willy Burt on 04-03-2024 RBC (Bld) [#/Vol] 3.79 10*6/uL Low 4.2-5.4 [facility] Serum anion gap measurementO rdered By: Willy Burt on 04-03-2024 Anion gap [Moles/Vol] 8 mmol/L 5-15 [facility] Serum or plasma calcium ana maria urement (mass/volume)Ordered By: Willy Burt on 04-03-2024 Calcium [Mass/Vol] 9.4 mg/dL 8.5-10.1 [facility] Serum or plasma creatinine m easurement (mass/volume)Ordered By: Willy Burt on 04-03-2024 Creatinine [Mass/Vol] 0.90 mg/dL 0.55-1.02 [facility] Comment on above: The validity of the calculated GFR & GFRAA in patients over 70 years has not been determined. Clinical correlation is essential. Serum or plasma urea nitroge n measurement (mass/volume)Ordered By: Willy Burt on 04-03-2024 Urea nitrogen [Mass/Vol] 12 mg/dL 7-18 [facility] Sodium levelOrdered By: Jad Burt on 04-03-2024 Sodium [Moles/Vol] 138 mmol/L 136-145 [facility] Troponin IOrdered By: Yasmani Burt on 04-03-2024 Troponin I 4 pg/mL 3.0-54.0 [facility] Comment on above: Please Note: New Daniela t Units and Gender Specific Reference Ranges. For more information see Policy Stat Procedure [place] High Sensitivity Troponin (TNIH) and attachments. Troponin I High Sensitivity 4 pg/mL 3.0-54.0 [facility] Comment on above: Please Note: New Daniela t Units and Gender Specific Reference Ranges. For more information see Policy Stat Procedure [place] High Sensitivity Troponin (TNIH) and attachments. White blood cell (WBC) count Ordered By: Willy Burt on 04-03-2024 WBC (Bld) [#/Vol] 3.6 10*3/uL Low 4.4-11.0 [facility] Chest PA and Lateralon 03-31 Chest PA and Lateral [facility] Imaging Services [address] [place] [address] Chest PA and Lateral MR#: [id number] Acct: [id number] Name: VIOLET HERNANDEZ Rep #: [id number] : 1985 F 38 From: Delmer oneal MD PCP: Dr. Emily Sanders MD Status: REG ER Study: Chest PA and Lateral Date of Exam: 03/31/24 Exam# [id number] Ordering Dr: Alli Ding MD PROCEDURE: CHEST PA AND LATERAL REASON FOR EXAM: Cough. Right lower lobe rales. Influenza a. TECHNIQUE: PA and lateral radiographs were obtained. COMPARISON: Comparison is made with prior study dated January 23, 2021. FINDINGS: The cardiothymic contour is normal. Scattered calcified granulomas. No acute abnormality is seen. The bones are unremarkable. RAD/Chest PA and Lateral IMPRESSION: No acute abnormality is seen. Reading Location: [id number] CC: Dr. Emily Sanders MD; Dr. Alli Ding MD Range Manager: Signed Normal [facility] Emergency Department Summary on 03-31-2024 Emergency Department Summary [facility] Medical Records Department [address] [place] [address] Emergency Department Summary 03/31/24 MR#: [id number] Acct: [id number] Name: VIOLET HERNANDEZ Rep #: [id number] : 1985 38 From: Alli Ding MD PCP: Dr. Emily Sanders MD Status:REG ER Location: ED HPI History of Present Illness Chief Complaint: Cold Sx Detail of Chief Complaint: Flulike symptoms that started March 25, diagnosed influenza A Fe Informant: patient Onset/Context/Timing Onset: Days Context: Sudden Onset Timing: Waxes and wanes Quality: Rattling sensation right side of chest Location: Chest Current Severity: Mild Maximum Severity: Moderate Worsened by: Nothing Relieved by: Nothing Associated Symptoms Associated Symptoms: Cold clammy hands, myalgias arthralgias, shortness of breath and wheezing Narrative Narrative: Patient is a 38-year-old woman. She reports illness started March 25. On March 29 she was diagnosed with influenza A. She was prescribed a metered-dose inhaler. She has been using the inhaler every 4 hours. She states she has had to use it sooner even though the prescription was written every 4 hours. She does not have history of asthma. She has no history of smoking. She has had no documented fever. Patient does complain of mild headache, congestion. She has no ear or auditory complaints. She does complain of slight sore throat. She does have a cough. The cough is nonproductive. She denies abdominal pain. She has had nausea. She initially had more GI symptoms. She has not had GI symptoms recently. She denies rash other than her hands being discolored. There is no history of Raynaud's. Prior similar symptoms: No Recent Illness/Hospitalization : No PFSH PFSH Medical History COELHO (nonalcoholic steatohepatitis) Osteopenia Obesity (BMI 30.0-34.9) Abdominal pain Chronic diarrhea Preventative health care Depression Anxiety Cervical radiculopathy Hyperglycemia Encounter for vitamin deficiency screening Chronic neck pain Hypersomnolence Screening for thyroid disorder Health care maintenance Congestion of left ear Post-nasal drip Urinary frequency Nonrheumatic mitral (valve) prolapse Non-alcoholic fatty liver disease Suicide ideation Anxiety and depression Heart valve disorder Vitamin deficiency Vision problems Hormone deficiency Frequent headaches H/O emotional problems UTI (urinary tract infection) Seasonal allergies Home Medications ???Medication ???Instructions ???Recorded ???Last Taken ???Type multivitamin 1 tablet PO DAILY 02/16/19 Unknown History vitamin E (dl, acetate) 180 mg 400 units PO DAILY 03/26/20 Unknow n History (400 unit) capsule docusate sodium 100 mg capsule 100 mg PO DAILY PRN constipation 1 02/09/23 Unknown History (Stool Softener) albuterol sulfate 90 mcg/actuation 2 inh inhalation Q4H PRN shortne ss 03/31/24 Unknown History aerosol inhaler of breath or wheezing cholecalciferol (vitamin D3) 50 50 mcg PO DAILY 03/31/24 Unknown H istory mcg (2,000 unit) tablet (D3 DOTS) estradiol 0.1 mg/24 hr semiweekly 1 patch topical SUWE 03/31/24 Unk nown History transdermal patch (Shaye) fluvoxamine 100 mg tablet 100 mg PO DAILY 03/31/24 Unknown H istory prednisone 20 mg tablet 60 mg (3 x 20 mg) PO DAILY #15 Unknown Rx TABLETS Allergy/AdvReac Type Severity Reaction Status Date / Time No Known Allergies Allergy Verified 03/31/24 06:26 Family History Brother Anxiety Hypertension Sister Anxiety Hypertension Uncle Anxiety Myocardial infarction Aunt Anxiety Grandmother Breast cancer Grandfather Myocardial infarction Father Hypertension Surgical History History of hysterectomy Hx of local excision of skin lesion History of bone marrow biopsy Social History Smoking Status: Never smoker alcohol intake: never substance use type: does not use caffeine: Yes Type: tea Number of servings: 1 ROS ROS ED Constitutional Constitutional ED: Reports chills, fever(s), subjective and sweats Eyes Eyes: Denies blurry vision or change in vision ENT ENT ED: Reports rhinorrhea and sore throat; Denies ear pain Cardiovascular Cardiovascular: Reports chest pain; Denies orthopnea, palpitations, paroxysmal nocturnal dyspnea or racing heartbeat Respiratory/Chest Respiratory/Chest: Reports cough and dyspnea; Denies dyspnea on exertion, orthopnea, paroxysmal nocturnal dyspnea or sputum Gastrointestinal Gastrointestinal: Reports nausea; Denies abdominal pain Musculoskeletal Musculoskeletal: Denies a (more content not included)... Normal [facility] POCT SARS-COV-2/FLU/RSV PCR SYMPTOMATIC manually resultedOrdered By: Ana Cristina Gonzalez on 03-29-2024 FLUAV RNA MALKA+probe Ql (Resp) Detected Abnormal Not Detected [facility] FLUBV RNA MALKA+probe Ql (Resp) Not detected Not Detected [facility] Interpretation and review of laboratory results Abnormal [facility] RSV RNA MALKA+probe Ql (Resp) Not detected Not Detected [facility] SARS-CoV-2 (COVID-19) RNA MALKA+probe Ql (Resp) Not detected Not Detected [facility] L501.5101on 03-24-2024 GGTP 123 IU/L Abnormal 0-60 [facility] Comment on above: Result Comment: Perf ormed at: - [facility] [address] [place], [place] [id number] Chief Security Officer: Jorgito Cunningham PhD, Phone: [phone] Performed By: #### L 3890.6202, L3410.9992, L3100.0460, L500.4100, L3890.6301, L3890.6102, L500.2500, L3300.1200, L800.1280, L803.2200, L100.0100, L503.6030, L3100.0300, L503.6550, L501.9985 #### [facility] [address] [place], [address] Bilirubin directOrdered By: Jorgito Boogie on 03-23-2024 Bilirubin.direct [Mass/Vol] 0.08 mg/dL 0.00-0.30 [facility] Bilirubin, totalOrdered By: Jorgito Boogie on 03-23-2024 Bilirubin [Mass/Vol] 0.40 mg/dL 0.20-1.00 [facility] Comment on above: For patients on eltr ombopag therapy, use of Dimension [place] TBIL is not recommended. Gamma glutamyl transferase ( GGT) measurementOrdered By: Jorgito Boogie on 03-23-2024 Amylase [Catalytic activity/Vol] 123 U/L High 0-60 [facility] Comment on above: Performed at: - [facility] [id number] [place], [place] [id number] Director: Jorgito Cunningham PhD, Phone: [phone] Laboratory - Chemistry and C hemistry - challengeOrdered By: Jorgito Boogie on 03-23-2024 AST [Catalytic activity/Vol] 32 U/L 15-37 [facility] Liver Profileon 03-23-2024 Albumin [Mass/Vol] 3.7 g/dL Normal 3.2-5.0 [facility] Comment on above: Performed By: #### L 3890.6202, L3410.9992, L3100.0460, L500.4100, L3890.6301, L3890.6102, L500.2500, L3300.1200, L800.1280, L803.2200, L100.0100, L503.6030, L3100.0300, L503.6550, L501.9985 #### [facility] [address] [place], [place], [id number] ALK P 115 U/L Normal 45-117 [facility] Comment on above: Performed By: #### L 3890.6202, L3410.9992, L3100.0460, L500.4100, L3890.6301, L3890.6102, L500.2500, L3300.1200, L800.1280, L803.2200, L100.0100, L503.6030, L3100.0300, L503.6550, L501.9985 #### [facility] [address] [place], [address] ALT [Catalytic activity/Vol] 85 U/L High 13-56 [facility] [facility] Comment on above: Performed By: #### L 3890.6202, L3410.9992, L3100.0460, L500.4100, L3890.6301, L3890.6102, L500.2500, L3300.1200, L800.1280, L803.2200, L100.0100, L503.6030, L3100.0300, L503.6550, L501.9985 #### [facility] [address] [place], [address] AST [Catalytic activity/Vol] 32 U/L Normal 15-37 [facility] Comment on above: Performed By: #### L 3890.6202, L3410.9992, L3100.0460, L500.4100, L3890.6301, L3890.6102, L500.2500, L3300.1200, L800.1280, L803.2200, L100.0100, L503.6030, L3100.0300, L503.6550, L501.9985 #### [facility] [address] [place], [address] (086) Bilirubin [Mass/Vol] 0.40 mg/dL Normal 0.20-1.00 [facility] Comment on above: Result Comment: For patients on eltrombopag therapy, use of Dimension [place] TBIL is not recommended. Performed By: #### L 3890.6202, L3410.9992, L3100.0460, L500.4100, L3890.6301, L3890.6102, L500.2500, L3300.1200, L800.1280, L803.2200, L100.0100, L503.6030, L3100.0300, L503.6550, L501.9985 #### [facility] [address] [facility] [place], [address] (446) Bilirubin.direct [Mass/Vol] 0.08 mg/dL Normal 0.00-0.30 [facility] Comment on above: Performed By: #### L 3890.6202, L3410.9992, L3100.0460, L500.4100, L3890.6301, L3890.6102, L500.2500, L3300.1200, L800.1280, L803.2200, L100.0100, L503.6030, L3100.0300, L503.6550, L501.9985 #### [facility] [address] [place], [place], [id number] (705) Globulin (S) [Mass/Vol] 3.2 g/dL Normal 2.2-4.2 [facility] Comment on above: Performed By: #### L 3890.6202, L3410.9992, L3100.0460, L500.4100, L3890.6301, L3890.6102, L500.2500, L3300.1200, L800.1280, L803.2200, L100.0100, L503.6030, L3100.0300, L503.6550, L501.9985 #### [facility] [address] [place], [place], [id number] (123) T PROT 6.9 g/dL Normal 6.4-8.2 [facility] Comment on above: Performed By: #### L 3890.6202, L3410.9992, L3100.0460, L500.4100, L3890.6301, L3890.6102, L500.2500, L3300.1200, L800.1280, L803.2200, L100.0100, L503.6030, L3100.0300, L503.6550, L501.9985 #### [facility] [address] [place], [place], [id number] Serum globulin measurementOr dered By: Jorgito Boogie on 03-23-2024 Globulin (S) [Mass/Vol] 3.2 g/dL 2.2-4.2 [facility] Serum or plasma alanine valencia otransferase (ALT) measurementOrdered By: Jorgito Boogie on 03-23-2024 ALT [Catalytic activity/Vol] 85 U/L High 13-56 [facility] Serum or plasma albumin ana maria urement (mass/volume)Ordered By: Jorgito Boogie on 03-23-2024 Albumin [Mass/Vol] 3.7 g/dL 3.2-5.0 [facility] Serum or plasma alkaline juana sphatase measurementOrdered By: Jorgito Boogie on 03-23-2024 ALP [Catalytic activity/Vol] 115 U/L 45-117 [facility] Total proteinOrdered By: Boris Boogie on 03-23-2024 Protein [Mass/Vol] 6.9 g/dL 6.4-8.2 [facility] CNOVon 02-11-2024 CNOV Office Visit (OBGYWM ) VIOLET HERNANDEZ ([id number]) 1985 F Date Time Provider Department 02/11/24 1:20 PM LOE BARNETT OBLEVYWMatt During your visit today, we recorded the following information about you: Blood pressure Weight 108/66 67.1 kg Leo Barnett MD 02/11/2024 2:00 PM Signed Violet Hernandez is a 38 year old female who presents for discussion regarding estrogen patch. Pt reports is being seen for fatty liver- wasn't sure if going without estrogen would cause a rise in LFTs and if being on the patch was better than oral estrogen. Pt reports no other concerns today. Pt states is following with Dr. Boogie. Pt doing well s/p [facility] BSO. 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 History Comments: Sexual Activity: Yes; Male Contraception: Pill PAST MEDICAL HISTORY Diagnosis Date Anxiety Depression Leukopenia Mitral prolapse Premature ovarian failure PAST SURGICAL HISTORY Procedure Laterality Date BONE MARROW BIOPSY x 2 COLONOSCOPY SCREENING 11/05/2023 ORAL SURGERY PROCEDURE [facility] W/T/O 250 G OR LESS 11/10/2023 FAMILY HISTORY Problem Relation Age of Onset Cataract Mother Macular Degen Mother Hypertension Father No Known Problems Sister No Known Problems Brother Breast Cancer Maternal Grandmother 55 Skin Cancer Maternal Grandmother Diabetes Maternal Grandmother Heart disease Maternal Grandfather Heart disease Paternal Grandmother Stroke Paternal Grandfather Social History Tobacco Use Smoking status: Never Smokeless tobacco: Never Vaping Use Vaping status: Never Used Substance Use Topics Alcohol use: Never Drug use: Never Current Outpatient Medications Medication Sig estradiol (VIVELLE-DOT) 0.1 mg/24 hr patch Apply 1 Patch as directed two times a week. Senna 8.6 mg tab Take 2 tablets by mouth two times a day. fluvoxaMINE Maleate (LUVOX) 25 mg tablet Take 100 mg by mouth once daily. buPROPion XL (WELLBUTRIN XL) 150 mg 24 hr tablet Take 300 mg by mouth once daily. No current facility-administered medications for this visit. Allergies As of Date: 02/11/2024 (No Known Allergies) Fully Assessed 01/15/2024 REVIEW OF SYSTEMS Abdomen: no pain Expanded ROS: N/A Allergies and current medication updated:Yes SENSITIVE EXAM: Sensitive exam not performed. EXAM: BP 108/66 Wt 148 lb (67.1kg) LMP 06/09/2022 GENERAL: pleasant, female in no apparent distress HEENT: Normocephalic and atraumatic NECK: full range of motion DERMATOLOGY: Normal, without lesions, non-icteric, and non-hirsute NEURO: alert and oriented x3,exam grossly non-focal EXTREMITIES: normal ASSESSMENT AND PLAN: Assessment AND Plan Fatty liver Reviewed ok to continue Vivelle dot and recommended at this time. Continue weight loss- whole foods. Low carb, higher protein. Exercise- routine Continue routine follow up with GI Encounter for screening mammogram for malignant neoplasm of breast Orders: GUSTAVO SCREENING W LOW; Future Hormone replacement therapy (HRT) I spent a total of 20 minutes on the date of the service which included preparing to see the patient, [id number] patient care, completing clinical documentation, obtaining and/or reviewing separately obtained history, performing a medically appropriate examination, and counseling and educating the patient/family/caregive rMD Louis Livingston Deidre, MD 02/11/2024 1:59 PM Written Reviewed ok to continue Vivelle dot and recommended at this time. Continue weight loss- whole foods. Low carb, higher protein. Exercise- routine Continue routine follow up with GI Allergies As of Date: 02/11/2024 (No Known Allergies) Date Reviewed: 02/11/2024 Reviewed by: Edith Infante MA - Fully Assessed Reason for Visit: Discussion [813] Primary Visit Diagnosis:Fatty liver [K76.0] Other Visit Diagnoses:Encounter for screening mammogram for malignant neoplasm of breast [Z12.31] Hormone replacement therapy (HRT) [Z79.890] Order(s):[facility] SCREENING W LOW [3488996] Order #: [id number] FUTURE Prescriptions as of 02/11/2024 - multivit,thx,calcium,ir on,mins (MULTIVITAMIN AND MINERAL ORAL) Take by mouth. - vitamin E mixed/tocotrienol (VITAMIN E COMPLEX ORAL) Take by mouth. - estradiol (VIVELLE-DOT) 0.1 mg/24 hr patch Apply 1 Patch as directed two times a week. - Senna 8.6 mg tab Take 2 tablets by mouth two times a day. - fluvoxaMINE Maleate (LUVOX) 25 mg tablet Take 100 mg by mouth once daily. - buPROPion XL (WELLBUTRIN XL) 150 mg 24 hr tablet Take 300 mg by mouth once daily. Problem List As Of Date 02/11/2024 Noted Resolved Obesity, Class I, BMI 30-34.9 [E66.811] 05/19/2023 Mitral valve prol (more content not included)... Normal [facility] Dexa Bone Density Studyon Dexa Bone Density Study [facility] Imaging Services [address] [place] [id number] Dexa Bone Density Study MR#: [id number] Acct: [id number] Name: VIOLET HERNANDEZ Rep #: [id number] : 1985 F 38 From: Jad Mares MD PCP: Dr. Emily Sanders MD Status: [facility] Study: Dexa Bone Density Study Date of Exam: 02/11/24 Exam# [id number] Ordering [place]: [place] [id number] STUDY: DUAL ENERGY X-RAY ABSORPTIOMETRY / DXA REASON FOR EXAM: Female, 38 years old. Early menopause TECHNIQUE: Bone Mineral Density (BMD) measurements of lumbar spine and bilateral hips were obtained. COMPARISON: None. FINDINGS: Lumbar Spine (L1-L4): g/cm2 (1.042) / T-score (0.0) / Z-score (0.1) Left Femur Total: g/cm2 (0.854) / T-score (-0.7) / Z-score (-0.6) Left Femoral Neck: g/cm2 (0.748) / T-score (-1.0) / Z-score (-0.7) Right Femur Total: g/cm2 (0.862) / T-score (-0.7) / Z-score (-0.5) Right Femoral Neck: g/cm2 (0.735) / T-score (-1.0) / Z-score (-0.8) 10 year fracture risk: Major osteoporotic fracture 1.9%, hip fracture 0.1% BD/Dexa Bone Density Study IMPRESSION: The patient is considered osteopenic as outlined below according to World [employer] Organization (WHO) criteria with a moderate fracture risk. Reference Information: The T-score is the number of standard deviations above or below the standard which is normal for young adults at their peak bone mineral density. The World Health Organization (WHO) interprets the T-scores as follows: Above -1 Normal bone density Between -1 and -2.5 Osteopenia Equal to / or below -2.5 Osteoporosis As a practical clinical guideline, osteopenia may be graded as follows: Mild -1 through -1.5 Moderate -1.6 through -2.0 Severe -2.1 through -2.4 The Z-score is the number of standard deviations above or below age-matched controls. A Z-score of less than -1.5 would be considered abnormal. References: 1. NIH Osteoporosis and Related Bone Diseases www osteo.org 2. International Society for Clinical Densitometry www iscd.org 3. National Osteoporosis Foundation www nof.org Electronically Signed: Robert Mares MD at 11:18 EST , CC: Dr. Emily Sanders MD Range Manager: Signed Normal [facility] L501.5101on 02-10-2024 GGTP 143 IU/L Abnormal 0-60 [facility] Comment on above: Result Comment: Perf ormed at: [facility] [address] [id number] Chief Security Officer: Jorgito Cunningham PhD, Phone: [phone] Performed By: #### L 3890.6202, L3410.9992, L3100.0460, L500.4100, L3890.6301, L3890.6102, L500.2500, L3300.1200, L800.1280, L803.2200, L100.0100, L503.6030, L3100.0300, L503.6550, L501.9985 #### [facility] [address] [place], [address] Bilirubin directOrdered By: Jorgito Boogie on 02-08-2024 Bilirubin.direct [Mass/Vol] 0.06 mg/dL 0.00-0.30 [facility] Bilirubin, totalOrdered By: Jrogito Boogie on 02-08-2024 Bilirubin [Mass/Vol] 0.20 mg/dL 0.20-1.00 [facility] Comment on above: For patients on eltr ombopag therapy, use of Dimension [place] TBIL is not recommended. C-reactive protein measureme nt by high sensitivity methodOrdered By: Jorgito Boogie on 02-08-2024 C-Reactive Protein Extended Range < 2.90 mg/L 0.0-3.0 [facility] Comment on above: C-Reactive Protein ( CRP) provides useful information for thediagnosis, therapy and monitoring of inflammatory processesand associated diseases. For the evaluation of Relative Riskfor Cardiovascular Disease, a High Sensitivity CRP (HSCRP)should be ordered. CRPon 02-08-2024 C-REACTIVE PROT < 2.90 Normal 0.0-3.0 [facility] Comment on above: Result Comment: C-Re active Protein (CRP) provides useful information for the diagnosis, therapy and monitoring of inflammatory processes and associated diseases. For the evaluation of Relative Risk for Cardiovascular Disease, a High Sensitivity CRP (HSCRP) should be ordered. Performed By: #### L 3890.6202, L3410.9992, L3100.0460, L500.4100, L3890.6301, L3890.6102, L500.2500, L3300.1200, L800.1280, L803.2200, L100.0100, L503.6030, L3100.0300, L503.6550, L501.9985 #### [facility] [address] [place], [address] Gamma glutamyl transferase ( GGT) measurementOrdered By: Jorgito Boogie on 02-08-2024 Amylase [Catalytic activity/Vol] 143 U/L High 0-60 [facility] Comment on above: Performed at: [address] Director: Jorgito Cunningham PhD, Phone: [phone] Laboratory - Chemistry and C hemistry - challengeOrdered By: Jorgito Boogie on 02-08-2024 AST [Catalytic activity/Vol] 46 U/L High 15-37 [facility] Liver Profileon 02-08-2024 Albumin [Mass/Vol] 3.7 g/dL Normal 3.2-5.0 [facility] Comment on above: Performed By: #### L 3890.6202, L3410.9992, L3100.0460, L500.4100, L3890.6301, L3890.6102, L500.2500, L3300.1200, L800.1280, L803.2200, L100.0100, L503.6030, L3100.0300, L503.6550, L501.9985 #### [facility] [address] [place], [place], [id number] ALK P 102 U/L Normal 45-117 [facility] Comment on above: Performed By: #### L 3890.6202, L3410.9992, L3100.0460, L500.4100, L3890.6301, L3890.6102, L500.2500, L3300.1200, L800.1280, L803.2200, L100.0100, L503.6030, L3100.0300, L503.6550, L501.9985 #### [facility] [address] [place], [address] ALT [Catalytic activity/Vol] 127 U/L High 13-56 [facility] Comment on above: Performed By: #### L 3890.6202, L3410.9992, L3100.0460, L500.4100, L3890.6301, L3890.6102, L500.2500, L3300.1200, L800.1280, L803.2200, L100.0100, L503.6030, L3100.0300, L503.6550, L501.9985 #### [facility] [address] [place], [address] AST [Catalytic activity/Vol] 46 U/L High 15-37 [facility] Comment on above: Performed By: #### L 3890.6202, L3410.9992, L3100.0460, L500.4100, L3890.6301, L3890.6102, L500.2500, L3300.1200, L800.1280, L803.2200, L100.0100, L503.6030, L3100.0300, L503.6550, L501.9985 #### [facility] [address] [place], [address] Bilirubin [Mass/Vol] 0.20 mg/dL Normal 0.20-1.00 [facility] Comment on above: Result Comment: For patients on eltrombopag therapy, use of Dimension [place] TBIL is not recommended. Performed By: #### L 3890.6202, L3410.9992, L3100.0460, L500.4100, L3890.6301, L3890.6102, L500.2500, L3300.1200, L800.1280, L803.2200, L100.0100, L503.6030, L3100.0300, L503.6550, L501.9985 #### [facility] [address] [facility] [place], [place], [id number] (205) Bilirubin.direct [Mass/Vol] 0.06 mg/dL Normal 0.00-0.30 [facility] Comment on above: Performed By: #### L 3890.6202, L3410.9992, L3100.0460, L500.4100, L3890.6301, L3890.6102, L500.2500, L3300.1200, L800.1280, L803.2200, L100.0100, L503.6030, L3100.0300, L503.6550, L501.9985 #### [facility] [address] [facility] [place], [address] (615) Globulin (S) [Mass/Vol] 3.2 g/dL Normal 2.2-4.2 [facility] Comment on above: Performed By: #### L 3890.6202, L3410.9992, L3100.0460, L500.4100, L3890.6301, L3890.6102, L500.2500, L3300.1200, L800.1280, L803.2200, L100.0100, L503.6030, L3100.0300, L503.6550, L501.9985 #### [facility] [address] [facility] [place], [address] (494) T PROT 6.9 g/dL Normal 6.4-8.2 [facility] Comment on above: Performed By: #### L 3890.6202, L3410.9992, L3100.0460, L500.4100, L3890.6301, L3890.6102, L500.2500, L3300.1200, L800.1280, L803.2200, L100.0100, L503.6030, L3100.0300, L503.6550, L501.9985 #### [facility] [address] [place], [address] Serum globulin measurementOr dered By: Jorgito Boogie on 02-08-2024 Globulin (S) [Mass/Vol] 3.2 g/dL 2.2-4.2 [facility] Serum or plasma alanine valencia otransferase (ALT) measurementOrdered By: Jorgito Boogie on 02-08-2024 ALT [Catalytic activity/Vol] 127 U/L High 13-56 [facility] Serum or plasma albumin ana maria urement (mass/volume)Ordered By: Jorgito Boogie on 02-08-2024 Albumin [Mass/Vol] 3.7 g/dL 3.2-5.0 [facility] Serum or plasma alkaline juana sphatase measurementOrdered By: Jorgito Boogie on 02-08-2024 ALP [Catalytic activity/Vol] 102 U/L 45-117 [facility] Total proteinOrdered By: Boris Boogie on 02-08-2024 Protein [Mass/Vol] 6.9 g/dL 6.4-8.2 [facility] Coronary Angiography CTon Coronary Angiography CT [facility] Services [address] [place] [address] 01/18/24 1459 MR#: [id number] Acct: [id number] Name: VIOLET HERNANDEZ Rep #: [id number] : 1985 38 From: Ricki Forrest MD PCP: Dr. Emily Sanders MD Status:REG CLI Y Location: CT Calcium Scoring Date of Study:: 01/18/24 Indications Indications: palpitations Coronary Calcium Scoring: High-resolution Computed Tomographic imaging of the chest was performed on [01/18/24 ], with particular attention paid to the coronary arteries. Images from the examination were analyzed for the presence and extent of coronary artery calcification , using coronary calcium quantification software. The patient tolerated the procedure well and there were no complications. The results of the coronary calcification analysis are provided below. Findings Coronary Artery Left Main (LM): 0 Left Anterior Descending (LAD): 0 Left Circumflex (LCX): 0 Right Coronary Artery (RCA): 0 Total Agatston Score: 0 Percentile Rankin% Calcium Scoring Interpretation: Different methods to categorize the overall amount of coronary plaque. Overall amount CAC SIS Visual of coronary plaque P1 Mild -100 <2 1-2 vessels with mild amount of plaque P2 Moderate 101-300 3-4 1-2 vessels with moderate amount, 3 vessels with mild amount of plaque P3 Severe 301-999 5-7 3 vessels with moderate amount, 1 vessel with severe amount of plaque P4 Extensive >1000 >8 2-3 vessels with severe amount of plaque Conclusion: No atherosclerotic plaquing 01/18/24 1501 Date Ricki Forrest MD Cosigner Signature (if applicable): Date CC: Dr. Ghada Magana MD; Dr. Ricki Forrest MD; Dr. Emily Sanders MD Signed Normal [facility] Limited [facility] 01-18-[address] Cardiac Only [facility] Services [address] [place] [address] [id number] [address] Cardiac Only MR#: [id number] Acct: [id number] Name: VIOLET HERNANDEZ Rep #: [id number] : 1985 F 38 From: Delmer oneal MD PCP: Dr. Emily Sanders MD Status: [facility] Study: Limited Chest CT Cardiac Only Date of Exam: Exam# [id number] Ordering [place]: [place] [id number] STUDY: CT CHEST with CONTRAST REASON FOR EXAM: Female, 38 years old. Palpitations RADIATION DOSAGE (If Supplied By Facility): CTDIvol = ( 23.39 ) mGy, DLP = ( 1555.63 ) mGycm TECHNIQUE: Transaxial imaging was performed with the administration of 100 mL of Isovue 370 intravenous contrast material. Cardiac over read examination. Individualized dose optimization techniques were used for this CT. COMPARISON: No relevant priors. FINDINGS: CHEST The lungs are normal. There is no demonstrated pleural abnormality. Normal heart and pericardium. No coronary artery calcification is seen. Normal mediastinum. Normal hilar regions. Normal unenhanced pulmonary arteries. Normal aorta arch and descending thoracic aorta. Normal osseous structures. Fatty infiltration of the liver. CT/Limited Chest CT Cardiac Only IMPRESSION: No coronary artery calcification is seen. Fatty infiltration of the liver. Electronically Signed: Delmer Nina MD at 14:49 EST , CC: Dr. Ghada Magana MD; Dr. Emily Sanders MD Range Manager: Signed Normal [facility] CBC W/Diff, Automatedon 12-0 PATH REV Reviewed Normal [facility] Comment on above: Result Comment: MACR OCYTIC RBC's LEUKOPENIA, MILD MILD Thrombocytopenia. Clinical correlation suggested. Haris Fang D.O. 01/15/24 AMENDED REPORT 01/15/24 1415 PATH REV previously reported as: June Performed By: #### L 3890.6202, L3410.9992, L3100.0460, L500.4100, L3890.6301, L3890.6102, L500.2500, L3300.1200, L800.1280, L803.2200, L100.0100, L503.6030, L3100.0300, L503.6550, L501.9985 #### [facility] [place], [address] CNOVon 01-15-2024 CNOV Office Visit (GMIGFV ) VIOLET HERNANDEZ ([id number]) 1985 F Date Time Provider Department 01/15/24 1:45 PM LEE KATZ IGFV During your visit today, we recorded the following information about you: Blood pressure Weight Height 119/78 68 kg 1.499 m Lee Katz DO 01/19/2024 1:58 PM Signed [facility] SECTION FOR MINIMALLY INVASIVE GYNECOLOGIC SURGERY OUTPATIENT VISIT DATE 01/15/2024 OUTPATIENT VISIT TYPE POST OPERATIVE FOLLOW UP History: Violet Hernandez is a 38 year old female here for post operative follow up appointment. She underwent surgery 11/10/2023 SURGERY/PROCEDURE(S): Total Laparoscopic Hysterectomy, Bilateral Salpingo-Oophorectomy, Cystoscopy She reports feeling good since her procedure. Her appetite is good. She describes her pain as no pain presently. She is currently taking nothing for pain control. She has not had sexual intercourse since the procedure. Denies nausea/vomiting/chest pain/shortness of breath. Ambulating well. No issues with voiding or BMs. States at her post op appointment with the [employer] OPERATOR on 12/17/2023 was told on her Vaginal exam they noted a 3mm suture noted at top of vagina, midline. Surgical Pathology: FINAL DIAGNOSIS A. Uterus with cervix, bilateral fallopian tubes and ovaries, Total Laparoscopic Hysterectomy and bilateral salpingo-oophorectomy : - Benign cervix. See comment. - Inactive endometrium with stromal breakdown. 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 - Bilateral fimbriated fallopian tubes with no significant diagnostic alteration. - Ovaries with surface adenofibromatous change and adhesions. FINDINGS 1) Exam under anesthesia: Normal external female genitalia, normal appearing vaginal tissue without lesions or discharge, normal appearing cervix. 10 week size anteverted mobile fibroid uterus without palpable adnexal masses. 2) Laparoscopy: Anterior cul-de-sac- normal-appearing Posterior cul-de-sac- normal-appearing Left ovarian fossa- normal-appearing Right ovarian fossa- normal-appearing Uterosacral ligaments- normal-appearing Uterus- 7 week size uterus with large 8cm fundal subserosal fibroid. Ovaries and fallopian tubes- normal bilaterally Bowel and appendix- normal-appearing, sigmoid colon with greater than physiologic adhesions to the left pelvic sidewall Diaphragmatic peritoneum- normal-appearing 3) Cystoscopy: bilateral ureters patent as indicated by strong jets of urine from bilateral ureteral ostia and intact bladder urothelium, normal urinary trigone ROS: Constitutional: Denies fever or chills GI: Denies abdominal pain, nausea, vomiting, bloody stools or diarrhea : Denies dysuria Integument: Denies rash Psychiatric: Denies depression or anxiety Exam: Vitals: 01/15/24 1357 BP: 119/78 Weight: 68 kg (150 lb) Height: 149.9 cm (4' 11) Height: 147.3 cm (4' 10) (12/17/2023 2:56 PM) Body mass index is 30.3 kg/m?. Neuro/psych: Alert and oriented x 3 in a pleasant mood Skin: Warm, dry and intact Abdomen: Soft, non tender, non distended, no hepatosplenomegaly or hernias. Incision: c/d/i Pelvic: Vaginal cuff: well healed, intact Assessment: Ms. Violet Hernandez is a 38 year old female presenting for postop check status post She reports doing well without concerns. Pathology discussed and surgical details reviewed. Plan: -May continue to increase physical activity as tolerated -May resume intercourse -Refrain from heavy lifting for 4 weeks postop -Follow up with general provider for annual care -All questions answered and pt agrees with plan Lee Katz DO Allergies As of Date: 01/15/2024 (No Known Allergies) Date Reviewed: 01/15/2024 Reviewed by: Lakeshia Fox RN - Fully Assessed Reason for Visit: Post Op [174] Primary Visit Diagnosis:Abnormal uterine bleeding (AUB) [N93.9] Order(s):estradiol (VIVELLE-DOT) 0.1 mg/24 hr patchApply 1 Patch as directed two times a week.Disp: 24 PatchRfl: 1 Prescriptions as of 01/19/2024 - estradiol (VIVELLE-DOT) 0.1 mg/24 hr patch Apply 1 Patch as directed two times a week. - Senna 8.6 mg tab Take 2 tablets by mouth two times a day. - fluvoxaMINE Maleate (LUVOX) 25 mg tablet Take 100 mg by mouth once daily. - buPROPion XL (WELLBUTRIN XL) 150 mg 24 hr tablet Take 300 mg by mouth once daily. Problem List As Of Date 01/15/2024 Noted Resolved Obesity, Class I, BMI 30-34.9 [E66.811] 05/19/2023 Mitral valve prolapse [I34.1] 11/06/2023 Mixed anxiety depressive disorder [F41.8] 11/06/2023 Leukopenia [D72.819] 04/28/2023 Palpitations [R00.2] 11/06/2023 Hypersomnia [G47.10] 11/06/2023 Noninfective gastroenteritis and colitis, unspe*08/28/2023 Thrombocytopenia (HCC) [D69.6] 11/09/2023 Fatty liver [K76.0] 11/09/2023 BCC (basal cell carcinoma of skin) [C44.91] 11/10/2023 Prescriptions ordered this (more content not included)... Normal [facility] 60-BG-Rgenfph DOrdered By: Manuela Sanders on 01-14-2024 Vitamin D 25-Hydroxy 46.9 ng/mL [facility] Comment on above: Vitamin D 25(OH) Sta tus Range Deficiency <20 ng/mL (50nmol/L) Insufficiency 20 - 30 ng/mL (50 - 75 nmol/L) Sufficiency 30 - 100 ng/mL (75 - 250 nmol/L) Toxicity >100 ng/mL (>250 nmol/L) Absolute neutrophil countOrd ered By: Emily Sanders on 01-14-2024 Neutrophils (Bld) [#/Vol] 1.2 10*3/uL Low 2.0-7.7 [facility] Albumin to globulin ratioOrd ered By: Emily Sanders on 01-14-2024 Albumin/Globulin [Mass ratio] 1.4 {ratio} 0.9-2.4 [facility] Basophil percentageOrdered B y: Eduardolilliemauricio Pinomarie on 01-14-2024 Basophils/100 WBC (Bld) 0.9 % 0-1 [facility] Bilirubin, totalOrdered By: Emily Sanders on 01-14-2024 Bilirubin [Mass/Vol] 0.30 mg/dL 0.20-1.00 [facility] Comment on above: For patients on eltr ombopag therapy, use of Dimension [place] TBIL is not recommended. Blood urea nitrogen (BUN)/cr eatinine ratioOrdered By: Emily Sanders on 01-14-2024 Urea nitrogen/Creatinine [Mass ratio] 17.6 mg/mg 10-20 [facility] Carbon dioxide measurementOr dered By: Emily Sanders on 01-14-2024 CO2 [Moles/Vol] 25.0 mmol/L 21.0-32.0 [facility] Chloride measurementOrdered By: monserrat Sanders on 01-14-2024 Chloride [Moles/Vol] 108 mmol/L High 98-107 [facility] Comprehensive Metabolic Prof ilon 01-14-2024 Albumin [Mass/Vol] 3.8 g/dL Normal 3.2-5.0 [facility] Comment on above: Performed By: #### L 3890.6202, L3410.9992, L3100.0460, L500.4100, L3890.6301, L3890.6102, L500.2500, L3300.1200, L800.1280, L803.2200, L100.0100, L503.6030, L3100.0300, L503.6550, L501.9985 #### [facility] [address] [place], [place], [id number] Albumin/Globulin [Mass ratio] 1.4 {ratio} Normal 0.9-2.4 [facility] Comment on above: Performed By: #### L 3890.6202, L3410.9992, L3100.0460, L500.4100, L3890.6301, L3890.6102, L500.2500, L3300.1200, L800.1280, L803.2200, L100.0100, L503.6030, L3100.0300, L503.6550, L501.9985 #### [facility] [address] [place], [place], [id number] ALK P 96 U/L Normal 45-117 [facility] Comment on above: Performed By: #### L 3890.6202, L3410.9992, L3100.0460, L500.4100, L3890.6301, L3890.6102, L500.2500, L3300.1200, L800.1280, L803.2200, L100.0100, L503.6030, L3100.0300, L503.6550, L501.9985 #### [facility] [address] [place], [address] ALT [Catalytic activity/Vol] 101 U/L High 13-56 [facility] Comment on above: Performed By: #### L 3890.6202, L3410.9992, L3100.0460, L500.4100, L3890.6301, L3890.6102, L500.2500, L3300.1200, L800.1280, L803.2200, L100.0100, L503.6030, L3100.0300, L503.6550, L501.9985 #### [facility] [address] [place], [place], [id number] AST [Catalytic activity/Vol] 59 U/L High 15-37 [facility] Comment on above: Performed By: #### L 3890.6202, L3410.9992, L3100.0460, L500.4100, L3890.6301, L3890.6102, L500.2500, L3300.1200, L800.1280, L803.2200, L100.0100, L503.6030, L3100.0300, L503.6550, L501.9985 #### [facility] [address] [place], [place], [id number] (036) Bilirubin [Mass/Vol] 0.30 mg/dL Normal 0.20-1.00 [facility] Comment on above: Result Comment: For patients on eltrombopag therapy, use of Dimension [place] TBIL is not recommended. Performed By: #### L 3890.6202, L3410.9992, L3100.0460, L500.4100, L3890.6301, L3890.6102, L500.2500, L3300.1200, L800.1280, L803.2200, L100.0100, L503.6030, L3100.0300, L503.6550, L501.9985 #### [facility] [address] [place], [address] (154) BUN/CRE 17.6 RATIO Normal 10-20 [facility] Comment on above: Performed By: #### L 3890.6202, L3410.9992, L3100.0460, L500.4100, L3890.6301, L3890.6102, L500.2500, L3300.1200, L800.1280, L803.2200, L100.0100, L503.6030, L3100.0300, L503.6550, L501.9985 #### [facility] [address] [place], [address] (378) CA,Total 9.4 mg/dL Normal 8.5-10.1 [facility] Comment on above: Performed By: #### L 3890.6202, L3410.9992, L3100.0460, L500.4100, L3890.6301, L3890.6102, L500.2500, L3300.1200, L800.1280, L803.2200, L100.0100, L503.6030, L3100.0300, L503.6550, L501.9985 #### [facility] [address] [facility] [place], [place], [id number] (473) Chloride [Moles/Vol] 108 mmol/L High 98-107 [facility] Comment on above: Performed By: #### L 3890.6202, L3410.9992, L3100.0460, L500.4100, L3890.6301, L3890.6102, L500.2500, L3300.1200, L800.1280, L803.2200, L100.0100, L503.6030, L3100.0300, L503.6550, L501.9985 #### [facility] [address] [place], [address] (677) CO2 [Moles/Vol] 25.0 mmol/L Normal 21.0-32.0 [facility] Comment on above: Performed By: #### L 3890.6202, L3410.9992, L3100.0460, L500.4100, L3890.6301, L3890.6102, L500.2500, L3300.1200, L800.1280, L803.2200, L100.0100, L503.6030, L3100.0300, L503.6550, L501.9985 #### [facility] [address] [place], [place], [id number] Creatinine [Mass/Vol] 0.85 mg/dL Normal 0.55-1.02 [facility] Comment on above: Result Comment: The validity of the calculated GFR GFRAA in patients over 70 years has not been determined. Clinical correlation is essential. Performed By: #### L 3890.6202, L3410.9992, L3100.0460, L500.4100, L3890.6301, L3890.6102, L500.2500, L3300.1200, L800.1280, L803.2200, L100.0100, L503.6030, L3100.0300, L503.6550, L501.9985 #### [facility] [address] [place], [place], [id number] EST GFR - AA 96 mL/min Normal >60 [facility] Comment on above: Result Comment: Afri can Turkish GFR Calc Performed By: #### L 3890.6202, L3410.9992, L3100.0460, L500.4100, L3890.6301, L3890.6102, L500.2500, L3300.1200, L800.1280, L803.2200, L100.0100, L503.6030, L3100.0300, L503.6550, L501.9985 #### [facility] [address] [place], [address] GAP 6 Normal 5-15 [facility] Comment on above: Performed By: #### L 3890.6202, L3410.9992, L3100.0460, L500.4100, L3890.6301, L3890.6102, L500.2500, L3300.1200, L800.1280, L803.2200, L100.0100, L503.6030, L3100.0300, L503.6550, L501.9985 #### [facility] [address] [place], [address] GFR/1.73 sq M.predicted among non-blacks MDRD (S/P/Bld) [Vol rate/Area] 79 mL/min/{1.73_m2} Normal >60 [facility] Comment on above: Result Comment: Non- GFR Calc Performed By: #### L 3890.6202, L3410.9992, L3100.0460, L500.4100, L3890.6301, L3890.6102, L500.2500, L3300.1200, L800.1280, L803.2200, L100.0100, L503.6030, L3100.0300, L503.6550, L501.9985 #### [facility] [address] [place], [place], [id number] Globulin (S) [Mass/Vol] 2.7 g/dL Normal 2.2-4.2 [facility] Comment on above: Performed By: #### L 3890.6202, L3410.9992, L3100.0460, L500.4100, L3890.6301, L3890.6102, L500.2500, L3300.1200, L800.1280, L803.2200, L100.0100, L503.6030, L3100.0300, L503.6550, L501.9985 #### [facility] [address] [place], [address] Glucose [Mass/Vol] 90 mg/dL Normal 74-106 [facility] Comment on above: Performed By: #### L 3890.6202, L3410.9992, L3100.0460, L500.4100, L3890.6301, L3890.6102, L500.2500, L3300.1200, L800.1280, L803.2200, L100.0100, L503.6030, L3100.0300, L503.6550, L501.9985 #### [facility] [address] [place], [address] Potassium [Moles/Vol] 4.1 mmol/L Normal 3.5-5.1 [facility] Comment on above: Performed By: #### L 3890.6202, L3410.9992, L3100.0460, L500.4100, L3890.6301, L3890.6102, L500.2500, L3300.1200, L800.1280, L803.2200, L100.0100, L503.6030, L3100.0300, L503.6550, L501.9985 #### [facility] [address] [place], [address] Sodium [Moles/Vol] 139 mmol/L Normal 136-145 [facility] Comment on above: Performed By: #### L 3890.6202, L3410.9992, L3100.0460, L500.4100, L3890.6301, L3890.6102, L500.2500, L3300.1200, L800.1280, L803.2200, L100.0100, L503.6030, L3100.0300, L503.6550, L501.9985 #### [facility] [address] [facility] [address] [place], [address] T PROT 6.5 g/dL Normal 6.4-8.2 [facility] Comment on above: Performed By: #### L 3890.6202, L3410.9992, L3100.0460, L500.4100, L3890.6301, L3890.6102, L500.2500, L3300.1200, L800.1280, L803.2200, L100.0100, L503.6030, L3100.0300, L503.6550, L501.9985 #### [facility] [address] [place], [address] Urea nitrogen [Mass/Vol] 15 mg/dL Normal 7-18 [facility] Comment on above: Performed By: #### L 3890.6202, L3410.9992, L3100.0460, L500.4100, L3890.6301, L3890.6102, L500.2500, L3300.1200, L800.1280, L803.2200, L100.0100, L503.6030, L3100.0300, L503.6550, L501.9985 #### [facility] [address] [place], [place], [id number] Eosinophil percentageOrdered By: Emily Sanders on 01-14-2024 Eosinophils/100 WBC (Bld) 4.7 % 0-5 [facility] Erythrocyte distribution wid th ratioOrdered By: Emily Sanders on 01-14-2024 Erythrocyte distribution width (RBC) [Ratio] 13.2 % 11.6-14.6 [facility] Erythrocyte distribution wid th standard deviationOrdered By: Emily Sanders on 01-14-2024 Erythrocyte distribution width (RBC) [Entitic vol] 51.0 fL High 35.1-43.9 [facility] Estimated glomerular filtrat ion rate (GFR) AmericanOrdered By: Emily Sanders on 01-14-2024 Estimated GFR (MDRD) Amer 96 mL/min >60 [facility] Comment on above: GFR Calc Glomerular filtration rate ( GFR) estimationOrdered By: Emily Sanders on 01-14-2024 Estimated GFR (MDRD) Non-Af Amer 79 mL/min >60 [facility] Comment on above: Non- GFR Calc Glucose measurementOrdered B y: Emily Sanders on 01-14-2024 Glucose [Mass/Vol] 90 mg/dL 74-106 [facility] Hematocrit Auto (Bld) [Volum e fraction]Ordered By: Emily Sanders on 01-14-2024 Hematocrit (Bld) [Volume fraction] 36.8 % Low 37-47 [facility] Hemoglobin measurementOrdere d By: Emily Sanders on 01-14-2024 Hemoglobin (Bld) [Mass/Vol] 12.6 g/dL 12.0-15.0 [facility] Immature granulocytes/100 WB C Auto (Bld)Ordered By: Emily Sanders on 01-14-2024 Immature granulocytes/100 WBC (Bld) 0.000 % 0.0-0.9 [facility] Comment on above: IG% - Immature Granu locytes (promyelocytes, myelocytes and metamyelocytes) > 1% indicates that a LEFT SHIFT is Present. Laboratory - Chemistry and C hemistry - challengeOrdered By: Emily Sanders on 01-14-2024 AST [Catalytic activity/Vol] 59 U/L High 15-37 [facility] Lymphocytes Auto (Unsp spec) [#/Vol]Ordered By: Jesusjaron Pringlerileymanuela on 01-14-2024 Lymphocytes (Bld) [#/Vol] 0.53 10*3/uL Low 0.83-4.51 [facility] Lymphocytes/100 WBC Auto (Un sp spec)Ordered By: Emily Sanders on 01-14-2024 Lymphocytes/100 WBC (Bld) 22.6 % 19-41 [facility] MCV (mean corpuscular volume ) determinationOrdered By: Emily Sanders on 01-14-2024 MCV (RBC) [Entitic vol] 106.1 fL High 81-99 [facility] Manual differential comment Robin (Bld) [Interp]Ordered By: Emily Sanders on 01-14-2024 Differential Comment COMMENT [facility] Comment on above: LYMPHOPENIA. Mean corpuscular hemoglobin (MCH) determinationOrdered By: Emily Sanders on 01-14-2024 MCH (RBC) [Entitic mass] 36.3 pg High 27.0-32.0 [facility] Mean corpuscular hemoglobin concentration (MCHC) determinationOrdered By: Emily Sanders on 01-14-2024 MCHC (RBC) [Mass/Vol] 34.2 g/dL 32-36 [facility] Mean platelet volume determi nationOrdered By: Emily Sanders on 01-14-2024 Platelet mean volume (Bld) [Entitic vol] 11.3 fL 6.2-12.0 [facility] Monocyte percentageOrdered B y: Emily Sanders on 01-14-2024 Monocytes/100 WBC (Bld) 20.4 % High 0-10 [facility] Neutrophil percentageOrdered By: Eduardomonserrat Sanders on 01-14-2024 Neutrophils/100 WBC (Bld) 51.4 % 47-70 [facility] Nucleated red blood cell per centageOrdered By: Emily Sanders on 01-14-2024 Nucleated RBC/100 WBC (Bld) [Ratio] 0 % 0-5 [facility] Pathologist review Robin (Unsp spec) [Interp]Ordered By: Emily Sanders on 01-14-2024 Differential Pathologist's Review Reviewed [facility] Comment on above: Previous reported re sult: Yajaira falk Edited by: LIANNE on 01/15/24:1415MACROCYTIC RBC'sLEUKOPENIA, MILDMILD Thrombocytopenia.Clinical correlation suggested.Haris Fang D.O. 01/15/24 AMENDED REPORT 01/15/24 1415 PATH REV previously reported as: June dileep Platelet countOrdered By: Eduardo Sanders on 01-14-2024 Platelets (Bld) [#/Vol] 145 10*3/uL Low 150-450 [facility] Potassium measurementOrdered By: Emily Sanders on 01-14-2024 Potassium [Moles/Vol] 4.1 mmol/L 3.5-5.1 [facility] RBC Auto (Bld) [#/Vol]Ordere d By: Emily Sanders on 01-14-2024 RBC (Bld) [#/Vol] 3.47 10*6/uL Low 4.2-5.4 [facility] Serum anion gap measurementO rdered By: Emily Sanders on 01-14-2024 Anion gap [Moles/Vol] 6 mmol/L 5-15 [facility] Serum globulin measurementOr dered By: Emily Sanders on 01-14-2024 Globulin (S) [Mass/Vol] 2.7 g/dL 2.2-4.2 [facility] Serum or plasma alanine valencia otransferase (ALT) measurementOrdered By: Emily Sanders on 01-14-2024 ALT [Catalytic activity/Vol] 101 U/L High 13-56 [facility] Serum or plasma albumin ana maria urement (mass/volume)Ordered By: Emily Sanders on 01-14-2024 Albumin [Mass/Vol] 3.8 g/dL 3.2-5.0 [facility] Serum or plasma alkaline juana sphatase measurementOrdered By: Emily Sanders on 01-14-2024 ALP [Catalytic activity/Vol] 96 U/L 45-117 [facility] Serum or plasma calcium ana maria urement (mass/volume)Ordered By: Emily Sanders on 01-14-2024 Calcium [Mass/Vol] 9.4 mg/dL 8.5-10.1 [facility] Serum or plasma creatinine m easurement (mass/volume)Ordered By: Eduardomonserrat Pringlerileymanuela on 01-14-2024 Creatinine [Mass/Vol] 0.85 mg/dL 0.55-1.02 [facility] Comment on above: The validity of the calculated GFR & GFRAA in patients over 70 years has not been determined. Clinical correlation is essential. Serum or plasma urea nitroge n measurement (mass/volume)Ordered By: Eduardolilliejimmyjaron Sanders on 01-14-2024 Urea nitrogen [Mass/Vol] 15 mg/dL 7-18 [facility] Sodium levelOrdered By: Eduardolillie mauricio Pinorileymanuela on 01-14-2024 Sodium [Moles/Vol] 139 mmol/L 136-145 [facility] Total proteinOrdered By: Kaleb quiroz Pinorileymanuela on 01-14-2024 Protein [Mass/Vol] 6.5 g/dL 6.4-8.2 [facility] Vitamin D,25 Hydroxyon 01-13 Vitamin D 25-OH 46.9 ng/mL Normal [facility] Comment on above: Result Comment: Nicole min D 25(OH) Status Range Deficiency <20 ng/mL (50nmol/L) Insufficiency 20 - 30 ng/mL (50 - 75 nmol/L) Sufficiency 30 - 100 ng/mL (75 - 250 nmol/L) Toxicity >100 ng/mL (>250 nmol/L) Performed By: #### L 3890.6202, L3410.9992, L3100.0460, L500.4100, L3890.6301, L3890.6102, L500.2500, L3300.1200, L800.1280, L803.2200, L100.0100, L503.6030, L3100.0300, L503.6550, L501.9985 #### [facility] [address] [place], [address] White blood cell (WBC) count Ordered By: Emily Sanders on 01-14-2024 WBC (Bld) [#/Vol] 2.4 10*3/uL Low 4.4-11.0 [facility] Abdomen Limitedon 01-12-2024 Abdomen Limited [facility] [address] [place] [address] Abdomen Limited MR#: [id number] Acct: [id number] Name: VIOLET HERNANDEZ Rep #: [id number] : 1985 F 38 From: Jad Mares MD PCP: Dr. Emily Sanders MD Status: REG CLI Study: Abdomen Limited Date of Exam: 01/12/24 Exam# [id number] Ordering [place]: [place] [id number] STUDY: ABDOMINAL ULTRASOUND - RIGHT UPPER QUADRANT REASON FOR VISIT: Female, 38 years old elevated LFTs TECHNIQUE: Ultrasound evaluation of the right upper quadrant was performed with real-time and static marte-scale imaging. TECHNICAL QUALITY: Limited. Examination limited by bowel gas. COMPARISON: CT from 02/02/2023 FINDINGS: Liver: The liver measures 14.6 cm. There is increased echogenicity consistent with fatty infiltration. The bile ducts are within normal limits. There is hepatic color flow. The direction of portal flow is hepatopetal. There is no demonstrated mass lesion. Gallbladder: Normal distended gallbladder. The gallbladder wall measures 1 mm. There is a negative sonographic Burgess''s sign. There is no pericholecystic fluid. There are no gallstones, there is echogenic sludge. Common Bile Duct (C.B.D.): The common bile duct measures 5 mm. Pancreas: Normal size of the head, body and tail of the pancreas. There is normal echogenicity of the pancreas. There is no demonstrated pancreatic mass or cyst. Right Kidney: Normal size of the right kidney. The right kidney measures 10.2 x 4.9 x 5.0 cm. Normal renal cortex. The right cortex measures 1.5 cm. There is no demonstrated renal mass or cyst. There is no right hydronephrosis. Elastography worksheet performed. Site A kPa 15.3, m/s 2.24 kPa%7.2, m/s%3.3 F3-F4 Site B kPa 14.1, m/s 2.16, kPa% 9.9, m/s% 5.1 F3-4 Site C kPa 14.8, m/s 2.21, kPa% 10.5, m/s% 5.0 F3-F4 US/Abdomen Limited IMPRESSION: Fatty liver, no discrete lesion Echogenic sludge in the gallbladder, no sonographic evidence of cholecystitis Electronically Signed: Robert Mares MD at 9:27 EST , CC: Dr. Emily Sanders MD; Dr. Jorgito Boogie MD Range Manager: Signed Normal [facility] Internal Medicine Office Vis sabas 12-31-2023 Internal Medicine Office Visit [facility], [id number] [place] [address] [place] [address] OFFICE VISIT Date of Service: 12/31/23 MR#: [id number] Acct: [id number] Name: VIOLET HERNANDEZ Rep #: [id number] : 1985 Provider: Dr. Emily fofana MD Age/Sex: 38/F Location: 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 Accompanied by: Self Is patient in pain?: No Allergies No Known Allergies Allergy (Verified 12/31/23 15:57) Medications ???Medication ???Instructions ???Recorded ???Confirmed ???Type multivitamin 1 tablet PO DAILY 02/16/19 12/31/23 History cyanocobalamin (vitamin B-12) 500 1,000 mcg PO DAILY@0800 03/26/20 12/31/23 History mcg tablet vitamin E (dl, acetate) 180 mg 400 units PO DAILY 03/26/20 12/31/23 History (400 unit) capsule fluvoxamine 25 mg tablet 100 mg PO DAILY 04/24/22 12/31/23 History bupropion HCl 150 mg 24 hr tablet, 150 mg PO QAM 12/11/23 12/31/23 History extended release docusate sodium 100 mg capsule 100 mg PO DAILY PRN 12/11/23 12/31/23 History (Stool Softener) estradiol 1 mg tablet 1 mg PO QDAY 12/11/23 12/31/23 History PFSH Medical History (Updated 12/31/23 @ 17:[address] Emily Sanders MD) COELHO (nonalcoholic steatohepatitis) Osteopenia Obesity (BMI 30.0-34.9) Abdominal pain Chronic diarrhea Preventative health care Depression Anxiety Cervical radiculopathy Hyperglycemia Encounter for vitamin deficiency screening Chronic neck pain Hypersomnolence Screening for thyroid disorder Health care maintenance Congestion of left ear Post-nasal drip Urinary frequency Nonrheumatic mitral (valve) prolapse Non-alcoholic fatty liver disease Suicide ideation Anxiety and depression Heart valve disorder Vitamin deficiency Vision problems Hormone deficiency Frequent headaches H/O emotional problems UTI (urinary tract infection) Seasonal allergies Surgical History History of hysterectomy Hx of local excision of skin lesion History of bone marrow biopsy Family History Brother Anxiety Hypertension Sister Anxiety Hypertension Uncle Anxiety Myocardial infarction Aunt Anxiety Grandmother Breast cancer Grandfather Myocardial infarction Father Hypertension Social History Smoking Status: Never smoker alcohol intake: never substance use type: does not use caffeine: Yes Type: tea Number of servings: 1 HPI HPI Chief Complaint: bone density discussion Details: VIOLET HERNANDEZ, is a 38 F who presents to the office today to discuss bone density. She states that during her recent hysterectomy, [employer]AN CHECKER was concerned about bone loss. History of premature ovarian failure. Last bone density scan done almost 10 years ago suggestive of osteopenia. No recent fractures. Other chronic conditions are stable. She states that she recently had labs done at [facility] prior to her surgery with elevated liver enzymes. History of fatty liver disease. ROS Const Constitutional: No body ache, chills, excessive sweating, fatigue, fever(s), frequent falls, headache(s), snoring, weakness or change in appetite Eyes Eyes: No blurry vision, change in vision, bulging eyes, floaters, visual disturbances, eye pain or Light sensitivity ENT ENT: No abnormal hearing, ear or mastoid pain, tinnitus, balance problems, nosebleed/epistaxis, nasal congestion, headache(s), neck pain or sore throat Resp Respiratory: No cough, excessive phlegm production, pain on inspiration, shortness of breath, snoring or wheezing Cardio Cardiology: No chest pain at rest, chest pain with exertion, excessive sweating, dyspnea on exertion, lightheadedness, orthopnea or palpitations Gastro GI: No abdominal pain, change in bowel habits, constipation, cramping, diarrhea, nausea/dyspepsia or vomiting Genitourinary-Female: No burning urination, painful urination, urinary incontinence, urinary frequency, suprapubic fullness or side pain Musc Musculoskeletal: No abnormal gait, joint pain, back pain, limited range of motion, loss of height, muscle cramps, muscle weakness, neck pain or numbness Skin Skin: No dry skin, redness, excessive hair growth, yellowing of the eye, lesions, itchy eyes, rash or wounds (more content not included)... Normal [facility] BACTERIAL VAGINOSIS NAATon 1 02-15-2023 Lactobacillus crispatus+gasseri+yonatan enii + Gardnerella vaginalis + Atopobium vaginae rRNA MALKA+probe Ql (Vag fld) Negative Normal Negative for bacterial vaginosis [facility] Comment on above: Order Comment: Speci men Type: SWABOrdering Facility: [facility] Address: [address] [place] [address] Performed By: #### Braulio VAMP, CVTV ####[facility] LABCLIA [id number] [place] [address] [place] JORDYN/TRICHOMONAS NAATon 1 02-15-2023 C. glabrata RNA MALKA+probe Ql (Vag fld) Negative Normal Negative for Jordyn glabrata [facility] Comment on above: Order Comment: Speci men Type: SWABOrdering Facility: [facility] Address: [address] [place] [address] Performed By: #### Braulio VAMP, CVTV ####[facility] LABCLIA [id number] [place] [address] [place] Jordyn sp DNA MALKA+probe Ql (Vag fld) Negative Normal Negative for Jordyn species [facility] Comment on above: Order Comment: Speci men Type: SWABOrdering Facility: [facility] Address: [address] [place] [address] Performed By: #### Braulio VAMP, CVTV ####[facility] LABCLIA [id number] [place] [address] [place] T. vaginalis DNA MALKA+probe Ql (Unsp spec) Negative Normal Negative for Trichomonas vaginalis by amplification [facility] Comment on above: Order Comment: Speci men Type: SWABOrdering Facility: [facility] Address: [address] [place] [address] Performed By: #### Braulio VAMP, CVTV ####[facility] LABCLIA [id number] [place] [address] [place] CNOVon 12-17-2023 CNOV Office Visit ([facility] ) VIOLET HERNANDEZ ([id number]) 1985 F Date Time Provider Department 12/17/23 3:00 PM YENNIFER TOMAS During your visit today, we recorded the following information about you: Blood pressure Weight Height Last Period 124/80 71.4 kg 1.473 m 06/09/22 Pete Gill MA 12/17/2023 3:51 PM Signed Exam chaperoned by Pete Gill MA December 17, 2023 3:10 PM Yennifer Tomas, REGIONAL 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 12/17/2023 3:51 PM Signed [facility] Department of Benign Gynecology [facility] PATIENT NAME: Violet Hernandez PCP: Emily Sanders MD DATE: 12/17/2023 Violet Hernandez is a 38 year old old female who presents for a follow up visit to discuss Vaginal bleeding after TLH-BSO on 11/10/2023 HPI: Over all doing well. When she has a BM she has noticed bright red bleeding. She is certain it is not from her rectum. 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 As applicable, any other physician, advance practice provider, medical student, or other health professional student that will be observing or involved in the sensitive examination for educational or training purposes was discussed with the Patient or Authorized Lean Manufacturing Engineer. The Patient or Authorized Lean Manufacturing Engineer has agreed to proceed with the sensitive examination. (Sensitive examination includes inspection and/or palpation of the breasts, pelvis, prostate and anorectal regions) Ticker Installer offered: Patient accepts, visit chaperoned by Pete Kowalski MA. BP 124/80 Ht 147.3 cm (4' 10) Wt 71.4 kg (157 lb 6.5 oz) LMP 06/09/2022 (Within Days) BMI 32.90 kg/m? Physical Exam Constitutional: Appearance: Normal appearance. Genitourinary: Genitourinary Comments: 4 mm dimple with pink discharge Vaginal cuff intact. Perineal sutures intact. Vaginal discharge (scant, brown, thin) present. Vaginal exam comments: 3mm suture noted at top of vagina, midline. Cervix is absent. Neurological: Mental Status: She is alert. Psychiatric: Mood and Affect: Mood normal. Behavior: Behavior normal. Thought Content: Thought content normal. Judgment: Judgment normal. Vitals and nursing note reviewed. ASSESSMENT AND PLAN: Encounter Diagnosis ICD-10-CM 1. Vaginal discharge N89.8 JORDYN/TRICHOMONAS NAAT BACTERIAL VAGINOSIS NAAT Possible small perineal repair defect. Discussed vulvar hygiene. Continue to monitor Keep upcoming appointment with Dr. Mikie Tomas, REGIONAL 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 December 17, 2023 3:14 PM Allergies As of Date: 12/17/2023 (No Known Allergies) Date Reviewed: 12/17/2023 Reviewed by: Pete Gill MA - Fully Assessed Reason for Visit: Post-Op Visit [1236] Cmt: Cuff check. Patient states she has been experiencing bleeding with bowel movements, is believes the blood is vaginal. Primary Visit Diagnosis:Vaginal discharge [N89.8] Order(s):JORDYN/TRICHO MONAS NAAT [SQCVTV] Order #: [id number]. #:[id number] BACTERIAL VAGINOSIS NAAT [SQBVAMP] Order #: [id number]. #:[id number] Prescriptions as of 12/17/2023 - estradiol (ESTRACE) 1 mg tablet Take 1 tablet by mouth once daily. - Senna 8.6 mg tab Take 2 tablets by mouth two times a day. - fluvoxaMINE Maleate (LUVOX) 25 mg tablet Take 100 mg by mouth once daily. - buPROPion XL (WELLBUTRIN XL) 150 mg 24 hr tablet Take 300 mg by mouth once daily. Problem List As Of Date 12/17/2023 Noted Resolved Obesity, Class I, BMI 30-34.9 [E66.811] 05/19/2023 Mitral valve prolapse [I34.1] 11/06/2023 Mixed anxiety depressive disorder [F41.8] 11/06/2023 Leukopenia [D72.819] 04/28/2023 Palpitations [R00.2] 11/06/2023 Hypersomnia [G47.10] 11/06/2023 Noninfective gastroenteritis and colitis, unspe*08/28/2023 Thrombocytopenia (HCC) [D69.6] 11/09/2023 Fatty liver [K76.0] 11/09/2023 BCC (basal cell carcinoma of skin) [C44.91] 11/10/2023 Medications Discontinued During This Encounter Prescriptions - ibuprofen (MOTRIN) 600 mg tablet (Discontinued) Take 1 tablet by mouth every 6 hours as needed for pain. Take with food. - acetaminophen (TYLENOL) 325 mg tablet (Discontinued) Take 2 tablets by mouth e (more content not included)... Normal [facility] Internal Medicine Office Vis iton 12-11-2023 Internal Medicine Office Visit [facility] [address] [place] [address] OFFICE VISIT Date of Service: 12/11/23 MR#: [id number] Acct: [id number] Name: VIOLET HERNANDEZ Rep #: [id number] : 1985 Provider: MOY adamson Age/Sex: 38/F Location: [facility] Status: Signed Intake Vital Signs 10/06/23 09:35 12/08/23 08:38 12/11/23 08:23 Height 4 ft 10 in 4 ft 10 in 4 ft 10 in Weight: 159 lb 159 lb BMI 33.2 33.2 BP 115/80 118/80 Blood Pressure Location Lt brachial Lt brachial Position Sitting Sitting Respiration 18 16 Pulse 83 76 Pulse Source NIBP Monitor Temp 98.9 F Temp Source Temporal Pulse Oximetry (%) 97 Oxygen Delivery Method room air Intake Visit Reasons: [facility]I Chief Complaint: [facility] Is patient in pain?: No Allergies No Known Allergies Allergy (Verified 12/11/23 08:20) Medications ???Medication ???Instructions ???Recorded ???Confirmed ???Type multivitamin 1 tablet PO DAILY 02/16/19 12/11/23 History cyanocobalamin (vitamin B-12) 500 1,000 mcg PO DAILY@0800 03/26/20 12/11/23 History mcg tablet vitamin E (dl, acetate) 180 mg 400 units PO DAILY 03/26/20 12/11/23 History (400 unit) capsule fluvoxamine 25 mg tablet 100 mg PO DAILY 04/24/22 12/11/23 History bupropion HCl 150 mg 24 hr tablet, 150 mg PO QAM 12/11/23 12/11/23 History extended release docusate sodium 100 mg capsule 100 mg PO DAILY PRN 12/11/23 12/11/23 History (Stool Softener) estradiol 1 mg tablet 1 mg PO QDAY 12/11/23 12/11/23 History PFSH Medical History Obesity (BMI 30.0-34.9) Abdominal pain Chronic diarrhea Preventative health care Depression Anxiety Cervical radiculopathy Hyperglycemia Encounter for vitamin deficiency screening Chronic neck pain Hypersomnolence Screening for thyroid disorder Health care maintenance Congestion of left ear Post-nasal drip Urinary frequency Nonrheumatic mitral (valve) prolapse Non-alcoholic fatty liver disease Suicide ideation Anxiety and depression Heart valve disorder Vitamin deficiency Vision problems Hormone deficiency Frequent headaches H/O emotional problems UTI (urinary tract infection) Seasonal allergies Surgical History (Updated 12/11/23 @ 08:23 by Sofia Metz) History of hysterectomy Hx of local excision of skin lesion History of bone marrow biopsy Family History Brother Anxiety Hypertension Sister Anxiety Hypertension Uncle Anxiety Myocardial infarction Aunt Anxiety Grandmother Breast cancer Grandfather Myocardial infarction Father Hypertension Social History Smoking Status: Never smoker alcohol intake: never substance use type: does not use caffeine: Yes Type: tea Number of servings: 1 HPI HPI Chief Complaint: [facility] Details: VIOLET HERNANDEZ, is a 38 F who presents to the office today for a [facility]. Patient was evaluated on 11/30/2023 for 3 to 4-day history of dysuria and urinary frequency with suprapubic pressure. She did not develop any fevers, hematuria, low back pain, or flank pain. She states she underwent a hysterectomy through [facility] on 11/10/2023. Urine dipstick was positive in clinic, she was prescribed Macrobid which she completed. Urine culture was negative for acute UTI. Today, patient reports her symptoms have resolved. She reports she developed similar symptoms 2-3 times per year. Upon review of previous urine cultures, patient had 2 cultures completed in April 2023 that were negative, 1 urine culture in February 2023 that was moderately positive for Enterococcus facialis and 2 urine cultures in 2022 that were negative. She has a f/u appt with [facility] next week due to ongoing vaginal bleeding, reporting a small amount of bright red vaginal bleeding when using the restroom. ROS Const Constitutional: No body ache, chills, excessive sweating, fatigue, fever(s), frequent falls, headache(s), snoring, weakness, sleep problems or change in appetite Eyes Eyes: No blurry vision, change in vision or Light sensitivity ENT ENT: No abnormal hearing, ear or mastoid pain, tinnitus, nasal congestion, nasal discharge, headache(s), neck pain or sore throat Resp Respiratory: No cough, shortness of breath, snoring or wheezing Cardio Cardiology: No chest pain at rest, chest pain with exertion, excessive sweating, shortness of breath, dyspnea on exertion, lightheadedness, orthopnea or palpitations Gastro GI: No abdominal pain, change in bowel habits, constipation, cramping, diarrhea or nausea/dyspepsia Genitourinary-Female: Positive for other (UTI symptoms resolved with A (more content not included)... Normal [facility] Cardiology Visit Reporton Cardiology Visit Report [facility] [place], [place] [address] OFFICE VISIT Date of Service: 12/08/23 MR#: [id number] Acct: [id number] Name: VIOLET HERNANDEZ Rep #: [id number] : 1985 Provider: Dr. Ghada Magana MD Age/Sex: 38/F Location: [facility] Status: Signed HPI HPI History of Present Illness Details: This lady has history of chronic chest pains. She continues to have chest pains about twice a week. Per her, they last about a minute. Feel like a pressure across her anterior chest. No radiation to the arm neck or jaw. No associated diaphoresis. No associated dyspnea. Episodes of chest pain occur mostly while she is driving. Denies any pleuritic component. Physical exertion does not precipitate this pain. Intake Vital Signs 10/06/23 09:35 12/08/23 08:38 Height 4 ft 10 in 4 ft 10 in Weight: 156 lb 159 lb BMI 32.5 33.2 BP 128/86 H 115/80 Blood Pressure Location Lt brachial Lt brachial Position Sitting Sitting Respiration 16 18 Pulse 88 83 Pulse Source Monitor NIBP Temp 99.1 F Pulse Oximetry (%) 97 Oxygen Delivery Method room air Intake Visit Reasons: 1 Y FU 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 Accompanied by: Self Is patient in pain?: No Allergies No Known Allergies Allergy (Verified 12/08/23 13:27) Medications ???Medication ???Instructions ???Recorded ???Confirmed ???Type multivitamin 1 tablet PO DAILY 02/16/19 12/08/23 History norgestimate 0.25 mg-ethinyl 1 tab PO DAILY 02/16/19 12/08/23 History estradiol 35 mcg tablet cyanocobalamin (vitamin B-12) 500 1,000 mcg PO DAILY@0800 03/26/20 12/08/23 History mcg tablet vitamin E (dl, acetate) 180 mg 400 units PO DAILY 03/26/20 12/08/23 History (400 unit) capsule bupropion HCl 150 mg 24 hr tablet, 300 mg PO QAM 07/19/20 12/08/23 History extended release fluvoxamine 25 mg tablet 100 mg PO DAILY 04/24/22 12/08/23 History docusate sodium 100 mg capsule 100 mg PO DAILY 02/01/23 12/08/23 History (Stool Softener) Ejection fraction %: 60 Have you fallen in the past year?: No PFSH Medical History (Updated 12/08/23 @ 13:[address] Ghada Magana MD) Obesity (BMI 30.0-34.9) Abdominal pain Chronic diarrhea Preventative health care Depression Anxiety Cervical radiculopathy Hyperglycemia Encounter for vitamin deficiency screening Chronic neck pain Hypersomnolence Screening for thyroid disorder Health care maintenance Congestion of left ear Post-nasal drip Urinary frequency Nonrheumatic mitral (valve) prolapse Non-alcoholic fatty liver disease Suicide ideation Anxiety and depression Heart valve disorder Vitamin deficiency Vision problems Hormone deficiency Frequent headaches H/O emotional problems UTI (urinary tract infection) Seasonal allergies Surgical History Hx of local excision of skin lesion History of bone marrow biopsy Family History Brother Anxiety Hypertension Sister Anxiety Hypertension Uncle Anxiety Myocardial infarction Aunt Anxiety Grandmother Breast cancer Grandfather Myocardial infarction Father Hypertension Social History Smoking Status: Never smoker alcohol intake: never substance use type: does not use caffeine: Yes Type: tea Number of servings: 1 ROS Const Const: Negative for fatigue, weakness, headache(s) or weight gain ENT ENT: Negative for headache(s), dizziness, Nosebleed/epistaxis or balance problems Cardio Chest Pain: Yes Character: sharp Onset: other (mostly while driving) Location: mid sternal Duration: minutes (30 sec - 1 min) Palpitations: Yes Edema: None Muscle aches with walking: None Resp Respiratory: Negative for SOB with activity, SOB at rest or SOB orthopnea SOB lying down GI GI: Negative nausea, vomiting or heartburn Musc Musc: Negative for muscle aches/ myalgia, muscle weakness, joint pain or balance problems Neuro Neuro: Negative for dizziness, lightheadedness, near syncope, syncope, headache(s) or weakness Endo Endo: Negative for fatigue Cardiology Exam Const Appearance: comfortable and no acute distress Nutritional Appearance: well nourished Neck Neck: no JVD Carotids: Negative bruit Chest Auscultation: Bilateral: Clear to Auscultation Cardio Rate: regular rate Rhythm: regular rhythm Heart sounds: S1 normal and S2 normal Neuro General: patient alert, patient awake and patient oriented x3 Extremities Lower Extremity Edema: None: Bilateral Supplemental Info Supplemental Information Echocardiogram from 08/07/2020: Interpretation Summary Left ventricular systolic function is normal. The estimated ejection fra (more content not included)... Normal [facility] VIOLET HERNANDEZ ([id number]) 1985 F Date Time Provider Department 12/06/23 LEE BELTRE GYNIL During your visit today, we recorded the following information about you: Lee Beltre MD 12/06/2023 3:48 PM Addendum Telephone Encounter Violet Hernandez [id number] Provider: Dr. Katz Surgery: TLH, BSO, cysto on 11/10/2023 w/ fibroid uterus Patient identity verified by name and . Called patient today regarding vaginal bleeding that started yesterday (12/04) on POD # 25. Patient reports some vaginal bleeding yesterday 12/04 was more light pink in toilet after wiping. Today, (12/05) patient notes bright red bleeding after wiping. Unable to quantify amount, but not filling a pad per hour. She reports when she wipes she sees bright red blood, but not noting blood filling a pad. Also endorses pain in stomach, around belly, denies fevers/chills. Endorses some vaginal discomfort 1 out of 10, not bad, but earlier in day rated 4-5. Currently pain is ~ 1 out of 10. Denies lightheadedness, no SOB. Denies sexual intercourse, no tampons in vaginal. Discussed if begins having more vaginal bleeding filling a pad, to present to nearest ED. Discussed with Dr. Weston who informed they will get Ms. Hernandez a follow up appointment with [facility] this week. Counseled installation and repair technician-back precautions including persistent or worsening of symptoms. Patient expressed understanding of and agreement with plan of care. All questions and concerns answered adequately. Counseled patient that phone conversation is not equivalent to a formal in-person clinical assessment, i.e. clinical problems cannot always be identified over phone. Welcomed patient to call back any time and, if concerned, patients have the autonomy/liberty to decide to go the ED. Discussed with MIGS fellow, Dr. Weston. Lee Beltre MD 12/06/23 2:36 PM Allergies As of Date: 12/06/2023 (No Known Allergies) Date Reviewed: 11/24/2023 Reviewed by: Yennifer Tomas APRN.DRUG SAFETY PHYSICIAN - Fully Assessed Prescriptions as of 12/06/2023 - estradiol (ESTRACE) 1 mg tablet Take 1 tablet by mouth once daily. - ibuprofen (MOTRIN) 600 mg tablet Take 1 tablet by mouth every 6 hours as needed for pain. Take with food. - Senna 8.6 mg tab Take 2 tablets by mouth two times a day. - acetaminophen (TYLENOL) 325 mg tablet Take 2 tablets by mouth every 6 hours as needed for pain. - fluvoxaMINE Maleate (LUVOX) 25 mg tablet Take 100 mg by mouth once daily. - buPROPion XL (WELLBUTRIN XL) 150 mg 24 hr tablet Take 300 mg by mouth once daily. Problem List As Of Date 12/06/2023 Noted Resolved Obesity, Class I, BMI 30-34.9 [E66.811] 05/19/2023 Mitral valve prolapse [I34.1] 11/06/2023 Mixed anxiety depressive disorder [F41.8] 11/06/2023 Leukopenia [D72.819] 04/28/2023 Palpitations [R00.2] 11/06/2023 Hypersomnia [G47.10] 11/06/2023 Noninfective gastroenteritis and colitis, unspe*08/28/2023 Thrombocytopenia (HCC) [D69.6] 11/09/2023 Fatty liver [K76.0] 11/09/2023 BCC (basal cell carcinoma of skin) [C44.91] 11/10/2023 Encounter Status:Closed by LEE BELTRE on 12/06/23 Normal [facility] Urine Cultureon 12-02-2023 URC Below infection leve l. Mixed Gram Pos Gram Neg Org Wingate Count <1000 MIXC Mixed contaminants. Submit a new specimen if indicated. Normal [facility] Comment on above: Performed By: #### L 3890.6202, L3410.9992, L3100.0460, L500.4100, L3890.6301, L3890.6102, L500.2500, L3300.1200, L800.1280, L803.2200, L100.0100, L503.6030, L3100.0300, L503.6550, L501.9985 #### [facility] [address] [place], [address] Urgent Care Visit Reporton 1 Urgent Care Visit Report [facility] [address], [address] [place] [address] OFFICE VISIT Date of Service: 11/30/23 MR#: [id number] Acct: [id number] Name: VOILET HERNANDEZ Rep #: [id number] : 1985 Provider: ELIZABETH Lala Age/Sex: 38/F Location: [facility] Status: Signed Intake Vital Signs 10/06/23 09:35 11/30/23 13:06 Height 4 ft 10 in Weight: 156 lb BMI 32.5 BP 128/86 H 126/68 H Blood Pressure Location Lt brachial Lt brachial Position Sitting Sitting Respiration 16 12 Pulse 88 96 Pulse Source Monitor Monitor Temp 99.1 F 98.1 F Temp Source Temporal Oral Pulse Oximetry (%) 97 98 Oxygen Delivery Method room air room air Intake Visit Reasons: Urinary tract infection Allergies No Known Allergies Allergy (Verified 11/30/23 13:06) [facility] History Obesity (BMI 30.0-34.9) Abdominal pain Chronic diarrhea Preventative health care Depression Anxiety Cervical radiculopathy Hyperglycemia Encounter for vitamin deficiency screening Chronic neck pain Hypersomnolence Screening for thyroid disorder Health care maintenance Congestion of left ear Post-nasal drip Urinary frequency Nonrheumatic mitral (valve) prolapse Non-alcoholic fatty liver disease Suicide ideation Anxiety and depression Heart valve disorder Vitamin deficiency Vision problems Hormone deficiency Frequent headaches H/O emotional problems UTI (urinary tract infection) Seasonal allergies Surgical History Hx of local excision of skin lesion History of bone marrow biopsy Family History Brother Anxiety Hypertension Sister Anxiety Hypertension Uncle Anxiety Myocardial infarction Aunt Anxiety Grandmother Breast cancer Grandfather Myocardial infarction Father Hypertension Social History Smoking Status: Never smoker alcohol intake: never substance use type: does not use caffeine: Yes Type: tea Number of servings: 1 HPI HPI Details: VIOLET HERNANDEZ, is a 38 F who presents to the office today for [facility] for approximately 3-4 day history of dysuria and urinary frequency with suprapubic pressure. No complaints of fever, chills, sweats, lightheadedness/dizzine ss, nausea/vomiting, or chest pain/shortness of breath/dyspnea on exertion/back pain. No changes in color/ character of stool - urine darker and cloudier than usual; no new urethral/ vaginal discharge. No [id number] products taken to assist. No other associated symptoms and no alleviating/aggravating factors. PMH: hysterectomy 11/10/2023 ROS Const Constitutional: No other (As above) Exam Const General: cooperative, healthy appearing and no acute distress Orientation: alert, awake and oriented x3 Chest Chest palpation inspection: normal inspection of the chest Resp Effort Inspection: normal respiratory effort and able to speak in complete sentences Auscultation: Bilateral: Clear to Auscultation Cardio Palpation: normal PMI Rate: regular rate Rhythm: regular rhythm Heart Sounds: S1 normal, S2 normal, no gallops, no murmurs and no rubs Pulses: radial pulses present GI Inspection: normal to inspection Palpation: soft and tender suprapubic (Patient describes upon self-palpation) General: No CVA tenderness Skin General: no rashes or lesions noted Neuro General: patient alert, patient awake and patient oriented x3 Cognition: normal cognition Speech: speech normal Psych Appearance: grossly normal Mental Status: mental status grossly normal Mood: congruent mood Affect: normal affect Speech and Movement: speech and movement normal Attitude: cooperative Diagnoses Urinary tract infection N39.0 Assessment and Plan Assessment and Plan (1) Urinary tract infection: Status: Acute Plan: See POC results; urine sent to lab for UA and C/S. Macrobid as prescribed today. Supportive measures as instructed today. Follow-up with PCP in 3 to 5 days should symptoms not improve, sooner should symptoms only worsen or any other concerns develop. Patient states acknowledging understanding all the above Results POC Urinalysis Dip (Clinic) Office Urine Color YELLOW Last Edit by Melody Fletcher on 11/30/23 13:08 Office Urine Clarity Cloudy Last Edit by Melody Fletcher on 11/30/23 13:08 Office Urine Glucose Negative Last Edit by Melody Fletcher on 11/30/23 13:08 Office Urine Ketones Negative Last Edit by Melody Fletcher on 11/30/23 13:08 Off Ur Spec [place] 1.020 Last Edit by Melody Fletcher on 11/30/23 13:08 Office Urine pH 6.0 Last Edit by Melody Bustos (more content not included)... Normal [facility] Urinalysis, Completeon 11-29 BACTERIA 1+ /hpf Normal None Seen [facility] Comment on above: Order Comment: CLEAN CATCH Performed By: #### L 3890.6202, L3410.9992, L3100.0460, L500.4100, L3890.6301, L3890.6102, L500.2500, L3300.1200, L800.1280, L803.2200, L100.0100, L503.6030, L3100.0300, L503.6550, L501.9985 #### [facility] [address] [place], [place], [id number] EPI,SQUAMOUS 0-5 SEEN Normal 5-10 [facility] Comment on above: Order Comment: CLEAN CATCH Performed By: #### L 3890.6202, L3410.9992, L3100.0460, L500.4100, L3890.6301, L3890.6102, L500.2500, L3300.1200, L800.1280, L803.2200, L100.0100, L503.6030, L3100.0300, L503.6550, L501.9985 #### [facility] [address] [place], [place], [id number] RBC 0-5 SEEN Normal 0-5 [facility] Comment on above: Order Comment: CLEAN CATCH Performed By: #### L 3890.6202, L3410.9992, L3100.0460, L500.4100, L3890.6301, L3890.6102, L500.2500, L3300.1200, L800.1280, L803.2200, L100.0100, L503.6030, L3100.0300, L503.6550, L501.9985 #### [facility] [address] [place], [place], [id number] WBC 10-25 SEEN Normal 0-5 [facility] Comment on above: Order Comment: CLEAN CATCH Performed By: #### L 3890.6202, L3410.9992, L3100.0460, L500.4100, L3890.6301, L3890.6102, L500.2500, L3300.1200, L800.1280, L803.2200, L100.0100, L503.6030, L3100.0300, L503.6550, L501.9985 #### [facility] [address] [place], [address] Mucus Ql (Urine sed) 0 SEEN Normal [facility] Comment on above: Order Comment: CLEAN CATCH Performed By: #### L 3890.6202, L3410.9992, L3100.0460, L500.4100, L3890.6301, L3890.6102, L500.2500, L3300.1200, L800.1280, L803.2200, L100.0100, L503.6030, L3100.0300, L503.6550, L501.9985 #### [facility] [address] [place], [address] [facility] C[facility] Tele[facility] (WCTRMN) CATINAVIOLET SUTHERLAND ([id number]) 1985 F Date Time Provider Department 11/13/23 MARK KATZN WCTRMN During your visit today, we recorded the following information about you: Valentine Crump 11/13/2023 8:19 AM Signed Pt post hysto and having sharp pains. Wants to know if that's normal. Belly button oozing clear fluid. Please advise [phone] Tracey Fowler, RN 11/13/2023 12:13 PM Signed Returned patient's call, verified name and . Patient is 3 days s/p Total Laparoscopic Hysterectomy, Bilateral Salpingo-Oophorectomy, Cystoscopy Patient reports some clear discharge coming from umbilical incision and intermittent sharp pains in her right lower quadrant incision yesterday. She is rotating tylenol and motrin as instructed, denies any signs of infection in her incisions. Reviewed infections signs to watch out for, advised her to continue alternating pain medication, and try ice on the incision that is painful if needed, encouraged her to continue frequent walking/movement, but to take breaks and rest if she experiences increased pain. 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 SHARMILA Echeverria Savannah 11/19/2023 3:36 PM Signed Patient calling in stating that her stitches on top of belly button incision came out. This morning she noticed some dried blood around the area. Please advise: [phone] Chelsi Alvarado Amanda, SHARMILA 11/19/2023 4:17 PM Signed Returned patient's call, verified name and . Patient reports that a very small piece of suture was expelled from her umbilical incision, but incision looks fine, does not look like wound has , no increased pain, bleeding, or signs of infection. Provided reassurance, that it doesn't sound concerning, could have just had a little bit of a longer suture and that extra part came out, advised patient to reach out with any further concerns, and to send photo via [employer] if anything looks concerning, for our team to review. Tracey Fowler RN Allergies As of Date: 11/13/2023 (No Known Allergies) Date Reviewed: 11/10/2023 Reviewed by: Evelyn Qureshi RN - Fully Assessed Reason for Visit: Surgical Followup [104] Prescriptions as of 11/19/2023 - ibuprofen (MOTRIN) 600 mg tablet Take 1 tablet by mouth every 6 hours as needed for pain. Take with food. - Senna 8.6 mg tab Take 2 tablets by mouth two times a day. - acetaminophen (TYLENOL) 325 mg tablet Take 2 tablets by mouth every 6 hours as needed for pain. - SUTAB 1.479-0.188- 0.225 gram tab as directed. - fluvoxaMINE Maleate (LUVOX) 25 mg tablet Take 100 mg by mouth once daily. - buPROPion XL (WELLBUTRIN XL) 150 mg 24 hr tablet Take 300 mg by mouth once daily. - ARIPiprazole (ABILIFY) 5 mg tablet Take by mouth. Problem List As Of Date 11/13/2023 Noted Resolved Obesity, Class I, BMI 30-34.9 [E66.811] 05/19/2023 Mitral valve prolapse [I34.1] 11/06/2023 Mixed anxiety depressive disorder [F41.8] 11/06/2023 Leukopenia [D72.819] 04/28/2023 Palpitations [R00.2] 11/06/2023 Hypersomnia [G47.10] 11/06/2023 Noninfective gastroenteritis and colitis, unspe*08/28/2023 Thrombocytopenia (HCC) [D69.6] 11/09/2023 Fatty liver [K76.0] 11/09/2023 BCC (basal cell carcinoma of skin) [C44.91] 11/10/2023 Encounter Status:Closed by VALENTINE CRUMP on 11/13/23 [facility] Fam 11-12-2023 SHUKRI Telephone (GYNMN) VIOLET HERNANDEZ ([id number]) 1985 F Date Time Provider Department 11/12/23 LEE KATZ During your visit today, we recorded the following information about you: Julia Perez RN 11/12/2023 8:54 AM Signed [facility] SECTION FOR MINIMALLY INVASIVE GYNECOLOGIC SURGERY AND CHRONIC PELVIC PAIN Postop call Called Patient. Verified name and . POD# NUMBERS 1-12: [address] Katz. Procedure: (from op note) Total Laparoscopic Hysterectomy, Bilateral Salpingo-Oophorectomy, Cystoscopy Reassured regarding typical pain and recovery following laparoscopic surgery. Reviewed pain medication use for optimal postoperative pain control. Reminded to ambulate every 2 hours while awake Reminded of normal return of bowel function, management of constipation. Reminded contact numbers are listed in their postop instructions After hours fellow installation and repair technician [phone] Office number [phone] (M-F, 8-4:30) Patient advised to call 911 or report to ED Fever (temperature greater than 100.4 degrees) Pain that is worsening or not relieved by pain medications. Nausea, vomiting or diarrhea that is not improving Blood, pus, or opening of incision(s) Heavy vaginal bleeding (more than a period) Shortness of breath Swollen or tender lower leg Lightheadedness, dizziness, or fainting Patient expressed understanding. Post op appointment: Future appointments: Future Appointments Date Time Provider Department [employer] 11/24/2023 4:00 PM Yennifer Tomas APRN.DANA [facility] 01/15/2024 1:45 PM Lee Katz DO [facility] 05/20/2024 4:00 PM Sherly Ng APRN.DANA [place] Patient questions/concerns: NONE Allergies As of Date: 11/12/2023 (No Known Allergies) Date Reviewed: 11/10/2023 Reviewed by: Evelyn Qureshi, SHARMILA - Fully Assessed Reason for Visit: Post Op Follow Up [3947] Prescriptions as of 11/12/2023 - ibuprofen (MOTRIN) 600 mg tablet Take 1 tablet by mouth every 6 hours as needed for pain. Take with food. - Senna 8.6 mg tab Take 2 tablets by mouth two times a day. - oxyCODONE IR (ROXICODONE) 5 mg immediate release tablet Take 1 tablet by mouth every 6 hours as needed for pain for up to 3 days. - acetaminophen (TYLENOL) 325 mg tablet Take 2 tablets by mouth every 6 hours as needed for pain. - SUTAB 1.479-0.188- 0.225 gram tab as directed. - fluvoxaMINE Maleate (LUVOX) 25 mg tablet Take 100 mg by mouth once daily. - buPROPion XL (WELLBUTRIN XL) 150 mg 24 hr tablet Take 300 mg by mouth once daily. - ARIPiprazole (ABILIFY) 5 mg tablet Take by mouth. Problem List As Of Date 11/12/2023 Noted Resolved Obesity, Class I, BMI 30-34.9 [E66.811] 05/19/2023 Mitral valve prolapse [I34.1] 11/06/2023 Mixed anxiety depressive disorder [F41.8] 11/06/2023 Leukopenia [D72.819] 04/28/2023 Palpitations [R00.2] 11/06/2023 Hypersomnia [G47.10] 11/06/2023 Noninfective gastroenteritis and colitis, unspe*08/28/2023 Thrombocytopenia (HCC) [D69.6] 11/09/2023 Fatty liver [K76.0] 11/09/2023 BCC (basal cell carcinoma of skin) [C44.91] 11/10/2023 Encounter Status:Closed by JULIA PEREZ on 11/12/23 Normal [facility] ANES POSTPROC EVALon 024 ANES POSTPROC EVAL HNO ID: [id number] Author: TIGIST JENKINS MD Service: ? Author Type: Anesthesiologist Type: Anesthesia Postprocedure Evaluation Filed: 11/11/2023 14:01 Note Text: POST ANESTHESIA EVALUATION NOTE : 1985 Procedure Summary Date: 11/10/23 Room / Location: [address] [facility] Anesthesia Start: 1353 Anesthesia Stop: 1745 Procedures: LAPAROSCOPIC HYSTERECTOMY TOTAL FOR UTERUS 250 G OR LESS W/REMOVAL TUBE(S) AND/OR OVARY(S) (Pelvis) CYSTOSCOPY Diagnosis: Intramural and subserous leiomyoma of uterus Pelvic pain in female Preop examination (Intramural and subserous leiomyoma of uterus [D25.1, D25.2]) (Pelvic pain in female [R10.2]) (Preop examination [Z01.818]) Surgeons: Lee Katz DO Responsible Provider: Tigist Jenkins MD Anesthesia Type: general ASA Status: 3 Anesthesia Type: general Airway Type: ETT Last Vitals Vitals Value Taken Time BP 127/81 11/10/231956 Temp 36.1 ?C (97 ?F) 11/10/231926 HR SpO2 82 11/10/231956 Resp 18 11/10/231956 SpO2 95 % 11/10/231956 Post Anesthesia Patient Status Patient Evaluation: bedside. Neurological Status: aware and responsive. Pulmonary Status: breathing comfortably on supplemental oxygen Airway Control: returned to baseline unsupported. Cardiovascular Status: stable. Pain Management: clinically adequate Postoperative Hydration: acceptable. Intraoperative Events: no significant anesthesia events Recommendation: continue current plan of care. Anesthesia Observations No Documentation SIGNATURE: Tigist Jenkins MD PATIENT NAME: Violet Gutierrez Catinaena DATE: November 11, 2023 TIME: 2:01 PM CSN: [id number] [facility] 11-11-2023 [facility] Telephone (WCTRMN) CATINAENAVIOLET Matt ([id number]) 1985 F Date Time Provider Department 11/11/23 LEE KATZ [facility] During your visit today, we recorded the following information about you: Deny Evelyn 11/11/2023 10:15 AM Signed Reason for call: other - Patient question Provider name: Ashrl Additional comments: Patient called in and stated she thought that the doctor advised her that she would send Estrogen to the pharmacy for her. Surgery yesterday Recommendation: routed to nurse triage pool Last visit in this department: Visit date not found Last distance health visit in this department: Visit date not found Next visit in this department: Visit date not found 11/24/2023 in [facility] with YENNIFER TOMAS - 2 WEEK POST OP 01/15/2024 in [facility] with LEE KATZ - 6 WEEK POST OP 05/20/2024 in [facility] with SHERLY NG - annual exam Thanks Janice Leslie RN 11/11/2023 11:37 AM Addendum Called pt. Verified name/ S/p 11/10/23 - Total Laparoscopic Hysterectomy, Bilateral Salpingo-Oophorectomy, Cystoscopy Pt thought she heard the Resident say she was going to send a Rx for Estrogen to her [facility]. No Rx ordered. Pt agreeable to discuss during her 2 week post op visit on 11/23/23 with Yennifer Tomas CNP. Routing to [facility] DREDGE PUMP OPERATOR Pool. Janice Weeks RN November 11, 2023 11:23 AM Jeanie Yu APRN.DANA 11/11/2023 11:52 AM Signed Is she having any symptoms that she needs the HRT now? It looks like she has been in POI since 2010. If no symptoms, she can wait to discuss at her postop appt or with her primary controller coal or ore. 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 Take with food. - Senna 8.6 mg tab Take 2 tablets by mouth two times a day. - oxyCODONE IR (ROXICODONE) 5 mg immediate release tablet Take 1 tablet by mouth every 6 hours as needed for pain for up to 3 days. - acetaminophen (TYLENOL) 325 mg tablet Take 2 tablets by mouth every 6 hours as needed for pain. - SUTAB 1.479-0.188- 0.225 gram tab as directed. - fluvoxaMINE Maleate (LUVOX) 25 mg tablet Take 100 mg by mouth once daily. - buPROPion XL (WELLBUTRIN XL) 150 mg 24 hr tablet Take 300 mg by mouth once daily. - ARIPiprazole (ABILIFY) 5 mg tablet Take by mouth. Problem List As Of Date 11/11/2023 Noted Resolved Obesity, Class I, BMI 30-34.9 [E66.811] 05/19/2023 Mitral valve prolapse [I34.1] 11/06/2023 Mixed anxiety depressive disorder [F41.8] 11/06/2023 Leukopenia [D72.819] 04/28/2023 Palpitations [R00.2] 11/06/2023 Hypersomnia [G47.10] 11/06/2023 Noninfective gastroenteritis and colitis, unspe*08/28/2023 Thrombocytopenia (HCC) [D69.6] 11/09/2023 Fatty liver [K76.0] 11/09/2023 BCC (basal cell carcinoma of skin) [C44.91] 11/10/2023 Encounter Status:Closed by EVELYN HARPER on 11/11/23 [facility] ANES PRE-OPon 11-10-2023 ANES PRE-OP HNO ID: [id number] Author: IRAIS AMIN DO Service: ? Author Type: Anesthesiologist Type: Anesthesia Preprocedure Evaluation Filed: 11/10/2023 12:47 Note Text: ANESTHESIOLOGY DAY OF SURGERY NOTE : 1985 Procedure Information Date/Time: 11/10/23 1510 Procedures: LAPAROSCOPIC HYSTERECTOMY TOTAL FOR UTERUS 250 G OR LESS W/REMOVAL TUBE(S) AND/OR OVARY(S) CYSTOSCOPY Location: [facility] Surgeons: Lee Katz DO Estimated body mass index is 32.99 kg/m? as calculated from the following: Height as of this encounter: 147.4 cm (4' 10.03). Weight as of this encounter: 71.7 kg (158 lb). Most recent hematocrit and potassium results: Hematocrit 33.7 11/06/2023 Potassium 3.7 11/06/2023 Relevant Problems CARDIO (+) Mitral valve prolapse -RENAL (+) Fatty liver I - PHYSICAL EVALUATION AIRWAY Patient intubated: No. Tracheostomy tube not present Mallampati: II. TM distance: >3 FB. Neck ROM: full ROM without neurological symptoms. Mouth opening: adequate. Short neck: no. Thick neck: no DENTAL Normal dental observations. Dental findings: teeth intact. II - ANESTHESIA PLAN ASA Score: 3 Anesthetic Plan: general Airway type: ETT The patient is not a current smoker. NPO Status: adequate Beta Alber Administration of chronic beta alber medication not planned. Monitoring Plan Monitoring plan: standard ASA. Post Procedure Analgesic Plan Postoperative analgesic plan: multimodal analgesia. Informed Consent Anesthetic risks, benefits, alternatives, personnel and consent discussed: yes. Patient / Responsible [employer] Party agrees to proceed: yes Patient / Surrogate agrees to blood products: Yes DNR status not reviewed with patient and/or family prior to surgery. Significant changes in the patient condition since the History and Physical, not otherwise documented in primary service progress note: no. Potential Anesthesia issues that may suggest increased risk of complications or contraindication to planned procedure: none. Vitals Value Taken Time BP 122/78 11/10/23 1246 Pulse 85 11/10/23 1246 Resp 16 11/10/23 1246 Temp 36.9 ?C (98.4 ?F) 11/10/23 1246 SpO2 97 % 11/10/23 1246 Facility-Administered Medications as of 11/10/2023 Medication Dose Route Frequency lidocaine (PF) 10 mg/mL (1 %) 1-2 mg injection (XYLOCAINE) 0.1-0.2 mL INTRADERMAL PRN Or lidocaine 1% 0.25 mL subcutaneous j-tip syringe (XYLOCAINE) 0.25 mL SUBCUTANEOUS PRN lactated ringers iv infusion 5-30 mL/hr INTRAVENOUS CONTINUOUS NaCl 0.9% iv flush bag 20 mL INTRAVENOUS PRN ceFAZolin iv piggyback 2 g in D5W (iso-osmotic) 100 mL (ANCEF) 2 g INTRAVENOUS Pre-Op Once celecoxib 400 mg cap(s) (CeleBREX) 400 mg ORAL ONCE acetaminophen 1,000 mg tab(s) (TYLENOL) 1,000 mg ORAL ONCE phenazopyridine 200 mg tab(s) (PYRIDIUM) 200 mg ORAL Pre-Op Once scopolamine 1 mg over 3 days 1 Patch (TRANSDERM-SCOP) 1 Patch TRANSDERMAL q 72 HR And scopolamine - REMOVE PATCH OTHER q 72 HR And scopolamine - VERIFY patch OTHER q 8 H Outpatient Medications as of 11/10/2023 Medication Sig fluvoxaMINE Maleate (LUVOX) 25 mg tablet Take 100 mg by mouth once daily. buPROPion XL (WELLBUTRIN XL) 150 mg 24 hr tablet Take 300 mg by mouth once daily. ARIPiprazole (ABILIFY) 5 mg tablet Take by mouth. ibuprofen (MOTRIN) 600 mg tablet Take 1 tablet by mouth every 6 hours as needed for pain. Take with food. Senna 8.6 mg tab Take 2 tablets by mouth two times a day. oxyCODONE IR (ROXICODONE) 5 mg immediate release tablet Take 1 tablet by mouth every 6 hours as needed for pain for up to 3 days. acetaminophen (TYLENOL) 325 mg tablet Take 2 tablets by mouth every 6 hours as needed for pain. I have interviewed and examined the patient. I have reviewed the medical record and/or the pre-anesthesia evaluation, pertinent labs, and test results. This contains updated information obtained within 48 hours of Surgery/Procedure. SIGNATURE: Irais Amin DO PATIENT NAME: Violet Hernandez DATE: November 10, 2023 TIME: 12:47 PM CSN: [id number] Normal [facility] OPERATIVE NOon 11-10-2023 OPERATIVE NO HNO ID: [id number] Author: LEE KATZ DO Service: Gynecology Author Type: Physician Type: Operative Report Filed: 11/10/2023 20:21 Note Text: PLAN CHECKER OPERATIVE/PROCEDURE REPORT LOG ID: [id number] SURGERY/PROCEDURE DATE: 11/10/2023 INCISION/PROCEDURE START TIME: 2:43 PM INCISION CLOSE/PROCEDURE END TIME: 5:14 PM SURGEON(S)/PROCEDURALIS T(S) AND NATURAL SCIENCES PROFESSOR(S): Surgeons and Role: * Lee Katz DO - Primary * Kristin Camarillo MD - Resident - Assisting * Maureen Mathias MD - Fellow No Additional Staff SURGERY/PROCEDURE(S): Total Laparoscopic Hysterectomy, Bilateral Salpingo-Oophorectomy, Cystoscopy ANESTHESIA: General FINDINGS 1) Exam under anesthesia: Normal external female genitalia, normal appearing vaginal tissue without lesions or discharge, normal appearing cervix. 10 week size anteverted mobile fibroid uterus without palpable adnexal masses. 2) Laparoscopy: Anterior cul-de-sac- normal-appearing Posterior cul-de-sac- normal-appearing Left ovarian fossa- normal-appearing Right ovarian fossa- normal-appearing Uterosacral ligaments- normal-appearing Uterus- 7 week size uterus with large 8cm fundal subserosal fibroid. Ovaries and fallopian tubes- normal bilaterally Bowel and appendix- normal-appearing, sigmoid colon with greater than physiologic adhesions to the left pelvic sidewall Diaphragmatic peritoneum- normal-appearing 3) Cystoscopy: bilateral ureters patent as indicated by strong jets of urine from bilateral ureteral ostia and intact bladder urothelium, normal urinary trigone SPECIMENS: ID Type Source Tests Collected by Time Destination A : Tissue Uterus, Cervix, Bilateral Fallopian Tubes, and Bilateral Ovaries SURGICAL PATHOLOGY Lee Katz DO 11/10/2023 4:29 PM COMPLICATIONS: None PRE-OP/PRE-PROCEDURE DIAGNOSIS: Uterine Fibroids POST-OP/POST-PROCEDURE DIAGNOSIS: Same as preop IV Fluids: 1500mL Urine Output: 200mL Estimated Blood Loss: 50mL Implantable Devices: None Drains: Gonzalez catheter Identification: Violet Hernandez is a 38 year old female with symptomatic uterine fibroids Pelvic US revealed: Uterus: -Size: 6.5 x 3.0 x 5.0 cm -Orientation: Anteverted -Endometrial echo complex: Evaluation of the endometrium was adequate. No endometrial abnormality. The endometrial echo complex measured 0.8 cm. -Cervix: Unremarkable. -Adenomyosis assessment: There are no sonographic findings of adenomyosis. -Fibroids: Fibroid # 1 -Size: Anterior fundus cm -Location: 7.0 x 6.5 x 7.4 -Type: Hybrid -Imaging features: Typical imaging features -Differential: None Right Ovary: Not identified. Left Ovary: Not identified. Free Fluid: No abnormal free fluid is present. She was counseled about all the risks, benefits, alternatives, complications, indications, and personnel of the procedures performed which she accepted. An informed consent was signed. PROCEDURE: Patient was taken to the operating room where the sign-in and time out were completed. General anesthesia was induced and found to be adequate. She was placed in a dorsal lithotomy position. Exam under anesthesia was performed. The abdomen, perineum and vagina were prepped and draped in the usual sterile fashion. SCDs were placed and turned on for DVT prophylaxis. A Gonzalez catheter was placed in the urinary bladder under sterile conditions An open-sided speculum was placed in the patient's vagina with clear visualization of the cervix. The anterior lip of the cervix was grasped with a single tooth tenaculum. The cervix was serially dilated to allow placement of Vcare and left in place throughout the laparoscopic portion of the procedure. Attention was turned to the abdomen with clean sterile gloves. A 10 mm intraumbilical incision was made with the knife and the incision was carried down to the level of fascia. The fascia incision was extended. Peritoneum was entered bluntly and the balloon trochar was placed. The abdomen was insufflated with CO2 gas. Three sites were chosen, 1 in the right lower quadrant, and 2 in the left lower and left lateral abdomen. At the sites, 5 mm incisions were made on the left and 8mm incision was made on the right, through which three 5 mm balloon trocars and and 8mm Airseal trocar were placed under direct visualization. The pelvis was surveyed, with findings above. The sigmoid colon was taken down from its adhesions to the left pelvic sidewall using the monopolar hook and Ligasure device.The left round ligament was grasped, sealed and transected with the LigaSure device.The left retroperitoneum was entered parallel to the IP ligament and the ureter was identified. A window was created between the left IP ligament and the ureter. The IP ligament was then isolated, sealed and transected with the LigaSure device. The ureter was made sure to be clear of the operative site. The anterior and posterior leafs of the broad ligament wer (more content not included)... Normal [facility] SURGICAL PATHOLOGYon 024 CASE REPORT Normal [facility] Comment on above: Order Comment: Speci men Type: TISSUE SPECIMEN Ordering Facility: [facility] Address: [address] [place] [id number] Result Comment: Surg [facility] Pathology Report Case: [id number] Authorizing Provider: Lee Katz DO Collected: 11/10/2023 04:29 PM Ordering Location: Admitting Received: 11/10/2023 05:11 PM Pathologist: Dona Galarza MD Specimen: Uterus, Cervix, Bilateral Fallopian Tubes, and Bilateral Ovaries Performed By: #### S #### [facility] CLIA [id number] [address] [place] [address] [place] CLINICAL HISTORY Normal [facility] Comment on above: Order Comment: Speci men Type: TISSUE SPECIMEN Ordering Facility: [facility] Address: [address] [place] [address] Result Comment: Pre- op diagnosis: Intramural and subserous leiomyoma of uterus [D25.1, D25.2] Pelvic pain in female [R10.2] Preop examination [Z01.818] Performed By: #### S #### [facility] CLIA [id number] [address] [place] [address] STATES OF [facility] DIAGNOSIS COMMENT The ectocervical squamous epithelium has been denuded. Normal [facility] Comment on above: Order Comment: Speci men Type: TISSUE SPECIMEN Ordering Facility: [facility] Address: [address] [place] [address] Performed By: #### S #### [facility] CLIA [id number] [address] [place] [address] FINAL DIAGNOSIS Normal [facility] Comment on above: Order Comment: Speci men Type: TISSUE SPECIMEN Ordering Facility: [facility] Address: [address] [place] [address] Result Comment: A. U terus with cervix, bilateral fallopian tubes and ovaries, Total Laparoscopic Hysterectomy and bilateral salpingo-oophorectomy : - Benign cervix. See comment. - Inactive endometrium with stromal breakdown. 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 - Bilateral fimbriated fallopian tubes with no significant diagnostic alteration. - Ovaries with surface adenofibromatous change and adhesions. Performed By: #### S #### [facility] CLIA [id number] [address] [place] [address] [place] OF [place] FINAL PERFORMING LAB Normal [facility] Comment on above: Order Comment: Speci men Type: TISSUE SPECIMEN Ordering Facility: [facility] Address: [address] [place] [address] Result Comment: Diag nostic interpretation performed at [facility], [address] [place] [address] CLIA# [id number] Ux Developer Designer: John Nguyen M.D. Performed By: #### S #### [facility] CLIA [id number] [address] [place] [address] [id number] [place] [address] [place] GROSS DESCRIPTION Normal [facility] Comment on above: Order Comment: Speci men Type: TISSUE SPECIMEN Ordering Facility: [facility] Address: [address] [place] [address] Result Comment: A. U terus, Cervix, Bilateral Fallopian Tubes, and Bilateral Ovaries Received in formalin labeled as uterus, cervix, bilateral fallopian tubes, and bilateral ovaries a specimen consisting of a markedly fragmented uterus and bilateral adnexal structures that weighs 250 g and measures in aggregate 11 x 7 x 4 cm. The serosal aspect is smooth and glistening. Bilateral fallopian tubes and ovaries are present in the specimen container but not orientable for laterality. The ectocervix is unremarkable. The external cervical os is round in contour and measures 0.6 cm in diameter. The endocervical canal measures 3.5 cm in length and appears normal. The endometrial cavity is markedly fragmented and disrupted, precluding definitive measurements. The endometrium is 0.1 cm in thickness and appears harrell-yellow and velvety. Polyps are not identified. The myometrium is remarkable for a firm, white, whorled bulging mass that measures 6.5 x 5.5 x 5 cm. An additional 2 firm, whorled, bulging nodules are identified that measure 2 x 1.5 x 1 cm and 2 x 1.2 x 1 cm respectively. No areas of hemorrhage, softening, or calcification are identified. Myometrium undistorted by the firm, white, whorled bulging masses is not identified and the remainder of myometrial tissue is markedly fragmented, precluding a measurement of myometrial thickness. A heavily fragmented, disrupted fimbriated fallopian tube measuring approximately 5 cm in length by 0.5 cm in maximum diameter is identified in the specimen container. The serosal aspect is pink-harrell and glistening. The fimbriated end has a normal villous appearance. An ovary that measures 2 x 1 x 0.4 cm is identified in association with this fallopian tube. It is firm white and has a wrinkled appearance. No cysts are identified. A second, intact fimbriated fallopian tube is identified that measures 4.5 cm in length by 0.3 cm in maximum diameter. It has a pink-harrell and glistening serosal surface. The fimbriated end has a normal villous appearance. It is identified in conjunction with an ovary that measures 1.5 x 0.8 x 0.5 cm. It has a firm, white wrinkled surface. No cysts are identified. Lean Manufacturing Engineer sections are submitted as follows: A1: Anterior cervix at 12:00 A2: Posterior cervix at 6:00 A3: Anterior lower uterine segment and endometrial cavity with third largest whorled bulging mass A4: Posterior lower uterine segment and endometrial cavity A5-A7: Largest whorled bulging mass A8: Second largest whorled bulging mass A9: Fimbriated end and cross-sections of fragmented fallopian tube and associated ovary A10: Fimbriated and cross-sections of intact fallopian tube and associated ovary Gross examination performed at [facility], [address] [place] [address] CLIA# [id number] 11/11/23 1:05 PM Performed By: #### S #### [facility] CLIA [id number] [address] [place] [address] [place] CBC W Auto Differential pane l (Bld)on 11-06-2023 Anisocytosis Ql (Bld) Present [facility] Basophils (Bld) [#/Vol] 0.00 10*3/uL [facility] Basophils/100 WBC (Bld) 0.0 % [facility] Dacrocytes LM Ql (Bld) Few [facility] Differential cell count method Nom (Bld) Manual [facility] Eosinophils (Bld) [#/Vol] 0.05 10*3/uL [facility] Eosinophils/100 WBC (Bld) 1.7 % [facility] Erythrocyte distribution width (RBC) [Ratio] 14.0 % 11.5 - 15.0 % [facility] Hematocrit (Bld) [Volume fraction] 33.7 % Low 36.0 - 46.0 % [facility] Hemoglobin (Bld) [Mass/Vol] 11.5 g/dL 11.5 - 15.5 g/dL [facility] Interpretation and review of laboratory results Abnormal [facility] Lymphocytes (Bld) [#/Vol] 0.66 10*3/uL Low [facility] Lymphocytes/100 WBC (Bld) 23.5 % [facility] MCH (RBC) [Entitic mass] 36.4 pg High 26.0 - 34.0 pg [facility] MCHC (RBC) [Mass/Vol] 34.1 g/dL 30.5 - 36.0 g/dL [facility] MCV (RBC) [Entitic vol] 106.6 fL High 80.0 - 100.0 fL [facility] Monocytes (Bld) [#/Vol] 0.44 10*3/uL NINF [facility] Monocytes/100 WBC (Bld) 15.7 % [facility] Neutrophils (Bld) [#/Vol] 1.65 10*3/uL [facility] Neutrophils/100 WBC (Bld) 59.1 % [facility] Nucleated RBC (Bld) [#/Vol] NINF [facility] Nucleated RBC/100 WBC (Bld) [Ratio] 0.0 % /100 WBC [facility] Ovalocytes LM Ql (Bld) Few Cl [facility] Platelet mean volume (Bld) [Entitic vol] 10.9 fL 9.0 - 12.7 fL [facility] Platelets (Bld) [#/Vol] 110 10*3/uL Low [facility] Platelets Estimate (Bld) [#/Vol] Decreased [facility] Polychromasia LM Ql (Bld) Slight [facility] RBC (Bld) [#/Vol] 3.16 10*6/uL Low 3.90 - 5.2 0 m/uL [facility] RBC Fragments Few Abnormal None Seen [facility] Red Cell Morph Reviewed: see result s of individual morphologies [facility] WBC (Bld) [#/Vol] 2.80 10*3/uL Low [facility] This is an appended report. These results have been appended to a previously verified report.This is an appended report. These results have been appended to a previously verified report. [facility] Anisocytosis Ql (Bld) Present Normal [facility] Comment on above: Order Comment: Speci men Type: BLOOD SPECIMENOrdering Facility: [facility] Address: [address] [place] [address] Performed By: #### 5 7021-8 ####[facility] MILLTOWNCLIA [id number] [place] [address] [place] [facility] LABCLIA [id number] [place] [address] [place] Basophils (Bld) [#/Vol] 0.00 10*3/uL Normal <0.11 [facility] Comment on above: Order Comment: Speci men Type: BLOOD SPECIMENOrdering Facility: [facility] Address: [address] [place] [address] Performed By: #### 5 7021-8 ####[facility] MILLTOWNCLIA [id number] [place] [address] [place] [facility] LABCLIA [id number] [place] [address] [place] Basophils/100 WBC (Bld) 0.0 % Normal [facility] Comment on above: Order Comment: Speci men Type: BLOOD SPECIMENOrdering Facility: [facility] Address: [address] [place] [address] Performed By: #### 5 7021-8 ####[facility] MILLTOWNCLIA [id number] [address] STATES OF [facility] LABCLIA [id number] [place] [address] [place] Dacrocytes LM Ql (Bld) Few Normal [facility] Comment on above: Order Comment: Speci men Type: BLOOD SPECIMENOrdering Facility: [facility] Address: [address] [place] [address] Performed By: #### 5 7021-8 ####[facility] MILLTOWNCLIA [id number] [address] LABCLIA [id number] [place] [id number] [place] Differential cell count method Nom (Bld) Manual Normal [facility] Comment on above: Order Comment: Speci men Type: BLOOD SPECIMENOrdering Facility: [facility] Address: [address] [place] [address] Performed By: #### 5 7021-8 ####[facility] [id number] [address] LABCLIA [id number] [place] [address] [place] Eosinophils (Bld) [#/Vol] 0.05 10*3/uL Normal <0.46 [facility] Comment on above: Order Comment: Speci men Type: BLOOD SPECIMENOrdering Facility: [facility] Address: [address] [place] [address] Performed By: #### 5 7021-8 ####[facility] MILLTOWNCLIA [id number] [address] LABCLIA [id number] [place] [address] [place] Eosinophils/100 WBC (Bld) 1.7 % Normal [facility] Comment on above: Order Comment: Speci men Type: BLOOD SPECIMENOrdering Facility: [facility] Address: [address] [place] [address] Performed By: #### 5 7021-8 ####[facility] MILLTOWNCLIA [id number] [address] LABCLIA [id number] [place] [id number] [place] Erythrocyte distribution width (RBC) [Ratio] 14.0 % Normal 11.5-15.0 [facility] Comment on above: Order Comment: Speci men Type: BLOOD SPECIMENOrdering Facility: [facility] Address: [address] [place] [address] Performed By: #### 5 7021-8 ####[facility] [id number] [address] LABCLIA [id number] [place] [address] [place] Hematocrit (Bld) [Volume fraction] 33.7 % Low 36.0-46.0 [facility] Comment on above: Order Comment: Speci men Type: BLOOD SPECIMENOrdering Facility: [facility] Address: [address] [place] [address] Performed By: #### 5 7021-8 ####[facility] [id number] [address] LABCLIA [id number] [place] [address] [place] Hemoglobin (Bld) [Mass/Vol] 11.5 g/dL Normal 11.5-15.5 [facility] Comment on above: Order Comment: Speci men Type: BLOOD SPECIMENOrdering Facility: [facility] Address: [address] [place] [address] Performed By: #### 5 7021-8 ####[facility] [id number] [address] LABCLIA [id number] [place] [address] [place] Lymphocytes (Bld) [#/Vol] 0.66 10*3/uL Low 1.00-4.00 [facility] Comment on above: Order Comment: Speci men Type: BLOOD SPECIMENOrdering Facility: [facility] Address: [address] [place] [address] Performed By: #### 5 7021-8 ####[facility] MILLTOWNCLIA [id number] [address] LABCLIA [id number] [place] [address] [place] Lymphocytes/100 WBC (Bld) 23.5 % Normal [facility] Comment on above: Order Comment: Speci men Type: BLOOD SPECIMENOrdering Facility: [facility] Address: [address] [place] [address] Performed By: #### 5 7021-8 ####[facility] MILLTOWNCLIA [id number] [address] STATES [facility] LABCLIA [id number] [place] [address] [place] MCH (RBC) [Entitic mass] 36.4 pg High 26.0-34.0 [facility] Comment on above: Order Comment: Speci men Type: BLOOD SPECIMENOrdering Facility: [facility] Address: [address] [place] [address] Performed By: #### 5 7021-8 ####[facility] MILLWNCLIA [id number] [address] STATES OF [facility] LABCLIA [id number] [place] [address] [place] MCHC (RBC) [Mass/Vol] 34.1 g/dL Normal 30.5-36.0 [facility] Comment on above: Order Comment: Speci men Type: BLOOD SPECIMENOrdering Facility: [facility] Address: [address] [place] [address] Performed By: #### 5 7021-8 ####[facility] MILLTOWNCLIA [id number] [address] LABCLIA [id number] [place] [address] [place] MCV (RBC) [Entitic vol] 106.6 fL High 80.0-100.0 [facility] Comment on above: Order Comment: Speci men Type: BLOOD SPECIMENOrdering Facility: [facility] Address: [address] [place] [address] Performed By: #### 5 7021-8 ####[facility]CL[facility] [id number] [address] LABCLIA [id number] [place] [address] [place] Monocytes (Bld) [#/Vol] 0.44 10*3/uL Normal <0.87 [facility] Comment on above: Order Comment: Speci men Type: BLOOD SPECIMENOrdering Facility: [facility] Address: [address] [place] [address] Performed By: #### 5 7021-8 ####[facility] [id number] [address] LABCLIA [id number] [place] [address] [place] Monocytes/100 WBC (Bld) 15.7 % Normal [facility] Comment on above: Order Comment: Speci men Type: BLOOD SPECIMENOrdering Facility: [facility] Address: [address] [place], [place] [address] Performed By: #### 5 7021-8 ####[facility] [id number] [address] LABCLIA [id number] [place] [address] [place] Neutrophils (Bld) [#/Vol] 1.65 10*3/uL Normal 1.45-7.50 [facility] Comment on above: Order Comment: Speci men Type: BLOOD SPECIMENOrdering Facility: [facility] Address: [address] [place] [address] Performed By: #### 5 7021-8 ####[facility]ALTOWNCLIA [id number] [address] STATES OF [facility] LABCLIA [id number] [place] [address] [place] Neutrophils/100 WBC (Bld) 59.1 % Normal [facility] Comment on above: Order Comment: Speci men Type: BLOOD SPECIMENOrdering Facility: [facility] Address: [address] [place] [address] Performed By: #### 5 7021-8 ####[facility]ITALWNCLIA [id number] [address] STATES OF [facility] LABCLIA [id number] [place] [address] [place] Nucleated RBC (Bld) [#/Vol] 10*3/uL Normal <0.01 [facility] Comment on above: Order Comment: Speci men Type: BLOOD SPECIMENOrdering Facility: [facility] Address: [address] [place] [address] Performed By: #### 5 7021-8 ####[facility] MILLTOWNCLIA [id number] [address] STATES OF [facility] LABCLIA [id number] [place] [address] [place] Nucleated RBC/100 WBC (Bld) [Ratio] 0.0 /100 WBC Normal [facility] Comment on above: Order Comment: Speci men Type: BLOOD SPECIMENOrdering Facility: [facility] Address: [address] [place] [address] Performed By: #### 5 7021-8 ####[facility] MILLTOWNCLIA [id number] [address] LABCLIA [id number] [place] [address] [place] Ovalocytes LM Ql (Bld) Few Normal Cl [facility] Comment on above: Order Comment: Speci men Type: BLOOD SPECIMENOrdering Facility: [facility] Address: [address] [place] [address] Performed By: #### 5 7021-8 ####[facility]ITALWNCLIA [id number] [address] LABCLIA [id number] [place] [address] [place] Platelet mean volume (Bld) [Entitic vol] 10.9 fL Normal 9.0-12.7 [facility] Comment on above: Order Comment: Speci men Type: BLOOD SPECIMENOrdering Facility: [facility] Address: [address] [place] [address] Performed By: #### 5 7021-8 ####[facility]CLIA [id number] [address] LABCLIA [id number] [place] [address] [place] Platelets (Bld) [#/Vol] 110 10*3/uL Low 150-400 [facility] Comment on above: Order Comment: Speci men Type: BLOOD SPECIMENOrdering Facility: [facility] Address: [facility] [place] [address] Performed By: #### 5 7021-8 ####[facility] MILLTOWNCLIA [id number] [address] LABCLIA [id number] [place] [address] [place] Platelets Estimate (Bld) [#/Vol] Decreased Normal [facility] Comment on above: Order Comment: Speci men Type: BLOOD SPECIMENOrdering Facility: [facility] Address: [address] [place] [address] Performed By: #### 5 7021-8 ####[facility] MILLTOWNCLIA [id number] [place] [address] [place] [facility] LABCLIA [id number] [place] [address] [place] Polychromasia LM Ql (Bld) Slight Normal [facility] Comment on above: Order Comment: Speci men Type: BLOOD SPECIMENOrdering Facility: [facility] Address: [address] [place] [address] Performed By: #### 5 7021-8 ####[facility] [id number] [place] [address] [place] [facility] LABCLIA [id number] [place] [address] [place] RBC (Bld) [#/Vol] 3.16 10*6/uL Low 3.90-5.20 [facility] Comment on above: Order Comment: Speci men Type: BLOOD SPECIMENOrdering Facility: [facility] Address: [address] [place] [address] Performed By: #### 5 7021-8 ####[facility] [id number] [place] [address] [place] [facility] LABCLIA [id number] [place] [address] [place] RBC FRAGMENTS Few Abnormal None Seen [facility] Comment on above: Order Comment: Speci men Type: BLOOD SPECIMENOrdering Facility: [facility] Address: [address] [place] [address] Performed By: #### 5 7021-8 ####[facility]ITALWNCLIA [id number] [address] LABCLIA [id number] [place] [address] [place] RED CELL MORPH Reviewed: see result s of individual morphologies Normal [facility] Comment on above: Order Comment: Speci men Type: BLOOD SPECIMENOrdering Facility: [facility] Address: [address] [place] [address] Performed By: #### 5 7021-8 ####[facility]ITAL[facility]CL[facility] [id number] [address] LABCLIA [id number] [place] [address] [place] WBC (Bld) [#/Vol] 2.80 10*3/uL Low 3.70-11.00 [facility] Comment on above: Order Comment: Speci men Type: BLOOD SPECIMENOrdering Facility: [facility] Address: [address] [place] [address] Performed By: #### 5 7021-8 ####[facility]ITALNCLIA [id number] [address] LABCLIA [id number] [place] [address] [place] CNPCoco 11-06-2023 CNPN Telephone (NIKHIL) VIOLET HERNANDEZ ([id number]) 1985 F Date Time Provider Department 11/06/23 ADELINE JAAM During your visit today, we recorded the following information about you: Chris RUDY [place] P[place] 11/06/2023 3:50 PM Signed Received [facility] office visit and hematology office visit. Scanned into [employer] through Onbase scanning. Ana Cristina Walker RUDY Ana Cristina Walker RUDY 11/06/2023 3:52 PM Signed Called and left message with Dr. Saenz office requesting most recent office visit for upcoming surgery. Ana Cristina Walker RUDY Ana Cristina WalkerRUDY 11/09/2023 12:10 PM Signed Received office visit from Dr. Saenz office. Scanned into [employer] through Onbase scanning. Ana Cristina WalkerRUDY Allergies As of Date: 11/06/2023 (No Known Allergies) Date Reviewed: 11/06/2023 Reviewed by: Adeline Jama APRN.DRUG SAFETY PHYSICIAN - Fully Assessed Prescriptions as of 11/09/2023 - SUTAB 1.479-0.188- 0.225 gram tab as directed. - Drospirenone-Ethinyl Estradiol (KOKI, 28,) 3-0.03 mg per tablet Take 1 tablet by mouth once daily. FOR CONTINUOUS USE - Take only hormone pills, skipping placebo pills. - fluvoxaMINE Maleate (LUVOX) 25 mg tablet Take 100 mg by mouth once daily. - buPROPion XL (WELLBUTRIN XL) 150 mg 24 hr tablet Take 300 mg by mouth once daily. - ARIPiprazole (ABILIFY) 5 mg tablet Take by mouth. Problem List As Of Date 11/06/2023 Noted Resolved Obesity, Class I, BMI 30-34.9 [E66.9] 05/19/2023 Mitral valve prolapse [I34.1] 11/06/2023 Mixed anxiety depressive disorder [F41.8] 11/06/2023 Leukopenia [D72.819] 04/28/2023 Palpitations [R00.2] 11/06/2023 Hypersomnia [G47.10] 11/06/2023 Noninfective gastroenteritis and colitis, unspe*08/28/2023 Encounter Status:Closed by ANA CRISTINA WALKER on 11/09/23 Normal [facility] metabolic 2000 panelOrdered By: Valentine Smalls on 11-06-2023 Albumin [Mass/Vol] 4.3 g/dL 3.9 - 4.9 g/dL [facility] ALP [Catalytic activity/Vol] 69 U/L 34 - 123 U/L [facility] ALT [Catalytic activity/Vol] 80 U/L High 7 - 38 U/L [facility] Anion gap [Moles/Vol] 13 mmol/L 8 - 15 mmol/L [facility] AST [Catalytic activity/Vol] 59 U/L High 13 - 35 U/L [facility] Bilirubin [Mass/Vol] 0.3 mg/dL 0.2 - 1 .3 mg/dL [facility] Calcium [Mass/Vol] 9.3 mg/dL 8.5 - 10. 2 mg/dL [facility] Chloride [Moles/Vol] 106 mmol/L 98 - 10 7 mmol/L [facility] CO2 [Moles/Vol] 22 mmol/L 22 - 30 mmol/L [facility] Creatinine [Mass/Vol] 0.76 mg/dL 0.58 - 0.96 mg/dL [facility] GFR/1.73 sq M.predicted among non-blacks MDRD (S/P/Bld) [Vol rate/Area] 102 mL/min/{1.73_m2} - PINF [facility] Comment on above: Estimated Glomerular Filtration Rate (eGFR) is calculated using the 2020 CKD-EPI creatinine equation. This equation utilizes serum creatinine, sex, and age as parameters. The creatinine assay has traceable calibration to isotope dilution-mass spectrometry. Refer to KDIGO guidelines for clinical interpretation. In patients with unstable renal function, e.g. those with acute kidney injury, the eGFR may not accurately reflect actual GFR. Glucose [Mass/Vol] 133 mg/dL High 74 - 99 mg/dL [facility] Comment on above: The [place] Diabete s Association (ADA) provides guidance for cutoff values for fasting glucose and random glucose. The ADA defines fasting as no caloric intake for at least 8 hours. Fasting plasma glucose results between 100 to 125 mg/dL indicate increased risk for diabetes (prediabetes). Fasting plasma glucose results greater than or equal to 126 mg/dL meet the criteria for diagnosis of diabetes. In the absence of unequivocal hyperglycemia, results should be confirmed by repeat testing. In a patient with classic symptoms of hyperglycemia or hyperglycemic crisis, random plasma glucose results greater than or equal to 200 mg/dL meet the criteria for diagnosis of diabetes. Reference: Standards of Medical Care in Diabetes 2016, [place] [employer]. Diabetes Care. 2016.39(Suppl 1). Interpretation and review of laboratory results Abnormal [facility] Potassium [Moles/Vol] 3.7 mmol/L 3.7 - 5.1 mmol/L [facility] Protein [Mass/Vol] 6.5 g/dL 6.3 - 8.0 g/dL [facility] Sodium [Moles/Vol] 141 mmol/L 136 - 144 mmol/L [facility] Urea nitrogen [Mass/Vol] 9 mg/dL 7 - 21 mg/dL [facility] Comprehensive metabolic 2000 panelon 11-06-2023 Albumin [Mass/Vol] 4.3 g/dL Normal 3.9-4.9 [facility] Comment on above: Order Comment: Nannettei saran Type: BLOOD SPECIMENOrdering Facility: [facility] Address: [address] [place] [address] Performed By: #### 2 4323-8 ####[facility] [id number] [place] [address] [place] ALP [Catalytic activity/Vol] 69 U/L Normal 34-123 [facility] Comment on above: Order Comment: Wilber noonan Type: BLOOD SPECIMENOrdering Facility: [facility] Address: [address] [place] [address] Performed By: #### 2 4323-8 ####[facility] GENERALLIA [id number] [place] [address] [place] ALT [Catalytic activity/Vol] 80 U/L High 7-38 [facility] Comment on above: Order Comment: Nannettei saran Type: BLOOD SPECIMENOrdering Facility: [facility] Address: [address] [place] [address] Performed By: #### 2 4323-8 ####[facility] GENERALL[facility] [id number] [place] [address] [place] Anion gap [Moles/Vol] 13 mmol/L Normal 8-15 [facility] Comment on above: Order Comment: Speci men Type: BLOOD SPECIMENOrdering Facility: [facility] Address: [address] [place] [address] Performed By: #### 2 4323-8 ####[facility]ITALNCLIA [id number] [place] [address] [place] AST [Catalytic activity/Vol] 59 U/L High 13-35 [facility] Comment on above: Order Comment: Speci men Type: BLOOD SPECIMENOrdering Facility: [facility] Address: [address] [place] [address] Performed By: #### 2 4323-8 ####[facility]ITALNCLIA [id number] [place] [address] [place] Bilirubin [Mass/Vol] 0.3 mg/dL Normal 0.2-1.3 [facility] Comment on above: Order Comment: Speci men Type: BLOOD SPECIMENOrdering Facility: [facility] Address: [address] [place] [address] Performed By: #### 2 4323-8 ####[facility]ITALNCLIA [id number] [place] [address] [place] Calcium [Mass/Vol] 9.3 mg/dL Normal 8.5-10.2 [facility] Comment on above: Order Comment: Speci men Type: BLOOD SPECIMENOrdering Facility: [facility] Address: [address] [place] [address] Performed By: #### 2 4323-8 ####[facility]ITALNCLIA [id number] [place] [address] [place] Chloride [Moles/Vol] 106 mmol/L Normal 98-107 [facility] Comment on above: Order Comment: Speci men Type: BLOOD SPECIMENOrdering Facility: [facility] Address: [address] [place] [address] Performed By: #### 2 4323-8 ####[facility] EDELNCTJA [id number] [place] [address] [place] CO2 [Moles/Vol] 22 mmol/L Normal 22-30 [facility] Comment on above: Order Comment: Speci men Type: BLOOD SPECIMENOrdering Facility: [facility] Address: [address] [place] [address] Performed By: #### 2 4323-8 ####[facility]ITALNCO[facility] [id number] [address] [place] Creatinine [Mass/Vol] 0.76 mg/dL Normal 0.58-0.96 [facility] Comment on above: Order Comment: Speci men Type: BLOOD SPECIMENOrdering Facility: [facility] Address: [address] [place] [address] Performed By: #### 2 4323-8 ####[facility]ITALNCLIA [id number] [address] Creatinine and Glomerular filtration rate.predicted panel (S/P/Bld) 102 mL/min/1.73m??? Normal >=60 [facility] Comment on above: Order Comment: Speci men Type: BLOOD SPECIMENOrdering Facility: [facility] Address: [address] [place] [address] Result Comment: Massiel mated Glomerular Filtration Rate (eGFR) is calculated using the 2020 CKD-EPI creatinine equation. This equation utilizes serum creatinine, sex, and age as parameters. The creatinine assay has traceable calibration to isotope dilution-mass spectrometry. Refer to KDIGO guidelines for clinical interpretation. In patients with unstable renal function, e.g. those with acute kidney injury, the eGFR may not accurately reflect actual GFR. Performed By: #### 2 4323-8 ####[facility]ITALWNCLIA [id number] [place] [address] [place] Glucose [Mass/Vol] 133 mg/dL High 74-99 [facility] Comment on above: Order Comment: Speci men Type: BLOOD SPECIMENOrdering Facility: [facility] Address: [address] [place] [address] Result Comment: The [place] [employer] (ADA) provides guidance for cutoff values for fasting glucose and random glucose. The ADA defines fasting as no caloric intake for at least 8 hours. Fasting plasma glucose results between 100 to 125 mg/dL indicate increased risk for diabetes (prediabetes). Fasting plasma glucose results greater than or equal to 126 mg/dL meet the criteria for diagnosis of diabetes. In the absence of unequivocal hyperglycemia, results should be confirmed by repeat testing. In a patient with classic symptoms of hyperglycemia or hyperglycemic crisis, random plasma glucose results greater than or equal to 200 mg/dL meet the criteria for diagnosis of diabetes. Reference: Standards of Medical Care in Diabetes 2016, [place] [employer]. Diabetes Care. 2016.39(Suppl 1). Performed By: #### 2 4323-8 ####[facility]ITALWNCLIA [id number] [place] [address] [place] Potassium [Moles/Vol] 3.7 mmol/L Normal 3.7-5.1 [facility] Comment on above: Order Comment: Speci men Type: BLOOD SPECIMENOrdering Facility: [facility] Address: [address] [place] [address] Performed By: #### 2 4323-8 ####[facility] MILLTOWNCLIA [id number] [place] [address] [place] Protein [Mass/Vol] 6.5 g/dL Normal 6.3-8.0 [facility] Comment on above: Order Comment: Speci men Type: BLOOD SPECIMENOrdering Facility: [facility] Address: [address] [place] [address] Performed By: #### 2 4323-8 ####[facility]ITALWNCLIA [id number] [address] [place] Sodium [Moles/Vol] 141 mmol/L Normal 136-144 [facility] Comment on above: Order Comment: Speci men Type: BLOOD SPECIMENOrdering Facility: [facility] Address: [address] [place] [address] Performed By: #### 2 4323-8 ####[facility] MARTIN KOBEWARRINGTONJEANNETTE [id number] [address] [place] Urea nitrogen [Mass/Vol] 9 mg/dL Normal 7-21 [facility] Comment on above: Order Comment: Speci men Type: BLOOD SPECIMENOrdering Facility: [facility] Address: [address] [place] [address] Performed By: #### 2 4323-8 ####[facility] OKNCODILIA [id number] [address] [place] HISTORY PHYSICALon HISTORY PHYSICAL HNO ID: [id number] Author: ADELINE JAMA APRN.DRUG SAFETY PHYSICIAN Service: ? Author Type: Nurse Practitioner Type: H&P Filed: 11/10/2023 09:55 Note Text: [facility] HISTORY AND PHYSICAL EXAMINATION SERVICE DATE: 11/06/2023 SERVICE TIME: 9:53 AM PRIMARY CARE PHYSICIAN: Emily Sanders MD Assessment Patient has the following medical conditions which may affect laverne-operative course: Leukopenia Assessment: chronic WBC Date Value Ref Range Status 11/06/2023 2.80 (L) 3.70 - 11.00 k/uL Final 10/06/23 Dr. Braun, Hematology [place] Thrombocytopenia (HCC) Assessment: Platelet Count Date Value Ref Range Status 11/06/2023 110 (L) 150 - 400 k/uL Final Fatty liver Assessment: per pt report Albumin (g/dL) Date Value 11/06/2023 4.3 Bilirubin, Total (mg/dL) Date Value 11/06/2023 0.3 Alkaline Phosphatase (U/L) Date Value 11/06/2023 69 AST (U/L) Date Value 11/06/2023 59 (H) ALT (U/L) Date Value 11/06/2023 80 (H) Protein, Total (g/dL) Date Value 11/06/2023 6.5 Mitral valve prolapse Assessment: hx, asymptomatic, following cardiology 11/03/22 Javi Rivero CNP, [facility] BCC (basal cell carcinoma of skin) Assessment: s/p excision Mixed anxiety depressive disorder Assessment: stable on rx per pt Obesity, Class I, BMI 30-34.9 Assessment: Body mass index is 33.02 kg/m?. Bedoya Activity Status Index: METS: Climb a flight of stairs or walk up a hill (5.50 METs) DASI Score: 5.5 Patient denies any chest pain or undue shortness of breath with the above physical activity. Clinical Frailty Scale: 3. Well, with treated comorbid disease STOP-Bang Score: Snores loudly Denies feeling tired, fatigued, or sleepy during the daytime Has not been observed to stop breathing or choking/gasping during sleep Denies having high blood pressure BMI less than or equal to 35 kg/m2 Patient 50 years old or younger Does not have a large neck Non-male patient STOP-Bang Score: 1 [id number] Score: Age: <65 Sex: female CHF history: No Hypertension history: No Stroke/TIA/thromboembol ism history: No Vascular disease history: No Diabetes history: No [id number] Score: 1 ARISCAT Score: Age: <=50 Preoperative SpO2: >=96% Respiratory infection in the last month: No Preoperative anemia: No Surgical incision: peripheral Duration of surgery: >3 hrs Emergency procedure: No ARISCAT Score: 23 ANESTHESIA FINDINGS: Intubation History: No history of difficult intubation Significant Anesthesia Considerations: none Airway History: No history of difficult airway I - PHYSICAL EVALUATION AIRWAY Patient intubated: No. Tracheostomy tube not present Mallampati: III. TM distance: >3 FB. Neck ROM: full ROM without neurological symptoms. Mouth opening: adequate. Short neck: no. Thick neck: yes Hadley present: no Lip Bite Test: I Microretrognathia/Micro nagthia/Recessed Chin: No DENTAL Dental findings: teeth intact. II - ANESTHESIA PLAN Anesthetic Plan: other Beta Alber Monitoring Plan Post Procedure Analgesic Plan Prepared for Surgery: optimally prepared for surgery, pending [see comment]. Labs-reviewed, okay to proceed-JL CONSULTS: Patient does not require consults for optimization at this time Planned Anesthetic: other anesthesia choice The Following Tests/Procedures Have Been Initiated: Orders Placed This Encounter >CBC + AUTO DIFF Standing Status: Future Number of Occurrences: 1 Standing Expiration Date: 02/05/2024 >CMP Standing Status: Future Number of Occurrences: 1 Standing Expiration Date: 02/05/2024 SUTAB 1.479-0.188- 0.225 gram tab Sig: as directed. REASON FOR VISIT: Violet Hernandez is a 38 year old female who is scheduled for Procedure(s): LAPAROSCOPIC HYSTERECTOMY TOTAL FOR UTERUS 250 G OR LESS W/REMOVAL TUBE(S) AND/OR OVARY(S) (N/A) CYSTOSCOPY (N/A) at the request of Lee Perez DO for consultation. My final recommendation will be communicated back to the requesting physician by way of shared medical record or letter. Subjective The patient has the following: COVID-19 Immunization Status Overdue - Covid-19 Vaccine () Overdue since 10/11/2023 12/26/2020 Imm Admin: COVID-19 original vaccine, age 12+ yr, monovalent (PFIZER-BIONTECH - PURPLE TOP) 12/05/2020 Imm Admin: COVID-19 original vaccine, age 12+ yr, monovalent (PFIZER-BIONTECH - PURPLE TOP) CHIEF COMPLAINT: Pre-op exam HPI: Violet Hernandez is a 38 year old seen for PAC due to scheduled above surgery because of uterine fibroid. 10/26/2023, Dr. Katz CHIEF COMPLAINT: Fibroid, pelvic pain HISTORY OF PRESENT ILLNESS: Violet Hernandez is a pleasant 37 year old female who presents for evaluation of Fibroids. She reports that she has known about her fibroid for a few years, and was told it has increased in size. Endorses lower (more content not included)... Normal [facility] VIOLET HERNANDEZ ([id number]) 1985 F Date Time Provider Department 11/03/23 LEE KATZ [facility] During your visit today, we recorded the following information about you: Emerita Payan 11/03/2023 10:52 AM Signed Patient calling into the office. She is a patient of Dr. Morley. She is scheduled for surgery on 11/09 and states that when they went over the medications that she should be stopping she could not remember if they mentioned she should stop the psychiatric medication and would like to know if she needs to 7 days prior. She states that she sent in [employer] papers for her yesterday through [employer] and would like them completed. I let the patient know that I would send a message but that there can be a 14 day turn around for FMLA. Please advise. Thank you Itz Emerita 11/04/2023 8:28 AM Signed FMLA for faxed to [facility] to sign. Emerita Itz November 04, 2023 8:28 AM Toya Lopes 11/05/2023 11:00 AM Signed Spouse fmla scanned into chart Clair Cheng MA 11/06/2023 10:59 AM Signed Printed paperwork and filled out. Walked to admin for provider to review and sign. Clair Cheng MA November 06, 2023 10:59 AM Allergies As of Date: 11/03/2023 (No Known Allergies) Date Reviewed: 2023 Reviewed by: Shar Austin LPN - Fully Assessed Reason for Visit: Patient Question [8875] Prescriptions as of 11/09/2023 - SUTAB 1.479-0.188- 0.225 gram tab as directed. - Drospirenone-Ethinyl Estradiol (KOKI, 28,) 3-0.03 mg per tablet Take 1 tablet by mouth once daily. FOR CONTINUOUS USE - Take only hormone pills, skipping placebo pills. - fluvoxaMINE Maleate (LUVOX) 25 mg tablet Take 100 mg by mouth once daily. - buPROPion XL (WELLBUTRIN XL) 150 mg 24 hr tablet Take 300 mg by mouth once daily. - ARIPiprazole (ABILIFY) 5 mg tablet Take by mouth. Problem List As Of Date 11/03/2023 Noted Resolved Obesity, Class I, BMI 30-34.9 [E66.9] 05/19/2023 Encounter Status:Closed by EMERITA PAYAN on 11/03/23 Normal [facility] CNCOon 2023 CNCO Letter Text Normal [facility] CBC W Auto Differential pane l (Bld)on 10-29-2023 Basophils (Bld) [#/Vol] 0.03 10*3/uL Normal <0.11 [facility] Comment on above: Order Comment: Speci men Type: BLOOD SPECIMENOrdering Facility: [facility] Address: [address] [place] [address] Performed By: #### 5 7021-8 ####[facility] LABCLIA [id number] [place] [address] [place] Basophils/100 WBC (Bld) 0.9 % Normal [facility] Comment on above: Order Comment: Speci men Type: BLOOD SPECIMENOrdering Facility: [facility] Address: [address] [place] [address] Performed By: #### 5 7021-8 ####[facility] LABCLIA [id number] [place] [address] [place] Dacrocytes LM Ql (Bld) Few Normal [facility] Comment on above: Order Comment: Speci men Type: BLOOD SPECIMENOrdering Facility: [facility] Address: [address] [place] [address] Performed By: #### 5 7021-8 ####[facility] LABCLIA [id number] [place] [address] [place] Differential cell count method Nom (Bld) Manual Normal [facility] Comment on above: Order Comment: Speci men Type: BLOOD SPECIMENOrdering Facility: [facility] Address: [address] [place] [address] Performed By: #### 5 7021-8 ####[facility] LABCLIA [id number] [place] [address] [place] Eosinophils (Bld) [#/Vol] 0.03 10*3/uL Normal <0.46 [facility] Comment on above: Order Comment: Speci men Type: BLOOD SPECIMENOrdering Facility: [facility] Address: [address] [place] [address] Performed By: #### 5 7021-8 ####[facility] LABCLIA [id number] [place] [address] [place] Eosinophils/100 WBC (Bld) 0.9 % Normal [facility] Comment on above: Order Comment: Speci men Type: BLOOD SPECIMENOrdering Facility: [facility] Address: [address] [place] [address] Performed By: #### 5 7021-8 ####[facility] LABCLIA [id number] [place] [address] [place] Erythrocyte distribution width (RBC) [Ratio] 14.3 % Normal 11.5-15.0 [facility] Comment on above: Order Comment: Speci men Type: BLOOD SPECIMENOrdering Facility: [facility] Address: [address] [place] [address] Performed By: #### 5 7021-8 ####[facility] LABCLIA [id number] [place] [address] [place] Hematocrit (Bld) [Volume fraction] 34.2 % Low 36.0-46.0 [facility] Comment on above: Order Comment: Speci men Type: BLOOD SPECIMENOrdering Facility: [facility] Address: [address] [place] [address] Performed By: #### 5 7021-8 ####[facility] LABCLIA [id number] [place] [address] [place] Hemoglobin (Bld) [Mass/Vol] 11.4 g/dL Low 11.5-15.5 [facility] Comment on above: Order Comment: Speci men Type: BLOOD SPECIMENOrdering Facility: [facility] Address: [address] [place] [address] Performed By: #### 5 7021-8 ####[facility] LABCLIA [id number] [place] [address] [place] Lymphocytes (Bld) [#/Vol] 0.66 10*3/uL Low 1.00-4.00 [facility] Comment on above: Order Comment: Speci men Type: BLOOD SPECIMENOrdering Facility: [facility] Address: [address] [place] [address] Performed By: #### 5 7021-8 ####[facility] LABCLIA [id number] [place] [address] [place] Lymphocytes/100 WBC (Bld) 22.6 % Normal [facility] Comment on above: Order Comment: Speci men Type: BLOOD SPECIMENOrdering Facility: [facility] Address: [address] [place] [address] Performed By: #### 5 7021-8 ####[facility] LABCLIA [id number] [place] [address] [place] MCH (RBC) [Entitic mass] 37.3 pg High 26.0-34.0 [facility] Comment on above: Order Comment: Speci men Type: BLOOD SPECIMENOrdering Facility: [facility] Address: [address] [place] [address] Performed By: #### 5 7021-8 ####[facility] LABCLIA [id number] [place] [address] [place] MCHC (RBC) [Mass/Vol] 33.3 g/dL Normal 30.5-36.0 [facility] Comment on above: Order Comment: Speci men Type: BLOOD SPECIMENOrdering Facility: [facility] Address: [address] [place] [address] Performed By: #### 5 7021-8 ####[facility] LABIA [id number] [place] [address] [place] MCV (RBC) [Entitic vol] 111.8 fL High 80.0-100.0 [facility] Comment on above: Order Comment: Speci men Type: BLOOD SPECIMENOrdering Facility: [facility] Address: [address] [place] [address] Performed By: #### 5 7021-8 ####[facility] LABIA [id number] [place] [address] [place] Monocytes (Bld) [#/Vol] 0.33 10*3/uL Normal <0.87 [facility] Comment on above: Order Comment: Speci men Type: BLOOD SPECIMENOrdering Facility: [facility] Address: [address] [place] [address] Performed By: #### 5 7021-8 ####[facility] LABIA [id number] [place] [address] [place] Monocytes/100 WBC (Bld) 11.3 % Normal [facility] Comment on above: Order Comment: Speci men Type: BLOOD SPECIMENOrdering Facility: [facility] Address: [address] [place] [address] Performed By: #### 5 7021-8 ####[facility] LABIA [id number] [place] [address] [place] Neutrophils (Bld) [#/Vol] 1.88 10*3/uL Normal 1.45-7.50 [facility] Comment on above: Order Comment: Speci men Type: BLOOD SPECIMENOrdering Facility: [facility] Address: [address] [place] [address] Performed By: #### 5 7021-8 ####[facility] LABCLIA [id number] [place] [address] [place] Neutrophils/100 WBC (Bld) 64.3 % Normal [facility] Comment on above: Order Comment: Speci men Type: BLOOD SPECIMENOrdering Facility: [facility] Address: [address] [place] [address] Performed By: #### 5 7021-8 ####[facility] LABCLIA [id number] [place] [address] [place] Nucleated RBC (Bld) [#/Vol] 10*3/uL Normal <0.01 [facility] Comment on above: Order Comment: Speci men Type: BLOOD SPECIMENOrdering Facility: [facility] Address: [address] [place] [address] Performed By: #### 5 7021-8 ####[facility] LABCLIA [id number] [place] [address] [place] Nucleated RBC/100 WBC (Bld) [Ratio] 0.0 /100 WBC Normal [facility] Comment on above: Order Comment: Speci men Type: BLOOD SPECIMENOrdering Facility: [facility] Address: [address] [place] [address] Performed By: #### 5 7021-8 ####[facility] LABCLIA [id number] [place] [address] [place] Ovalocytes LM Ql (Bld) Few Normal Cl [facility] Comment on above: Order Comment: Speci men Type: BLOOD SPECIMENOrdering Facility: [facility] Address: [address] [place] [address] Performed By: #### 5 7021-8 ####[facility] LABCLIA [id number] [place] [address] [place] Platelet mean volume (Bld) [Entitic vol] 10.6 fL Normal 9.0-12.7 [facility] Comment on above: Order Comment: Speci men Type: BLOOD SPECIMENOrdering Facility: [facility] Address: [address] [address] Performed By: #### 5 7021-8 ####[facility] LABCLIA [id number] [address] [address] [place] Platelets (Bld) [#/Vol] 105 10*3/uL Low 150-400 [facility] Comment on above: Order Comment: Speci men Type: BLOOD SPECIMENOrdering Facility: [facility] Address: [address] [place] [address] Performed By: #### 5 7021-8 ####[facility] LABCLIA [id number] [place] [address] [place] Platelets Estimate (Bld) [#/Vol] Decreased Normal [facility] Comment on above: Order Comment: Speci men Type: BLOOD SPECIMENOrdering Facility: [facility] Address: [address] [place] [address] Performed By: #### 5 7021-8 ####[facility] LABCLIA [id number] [place] [address] [place] Polychromasia LM Ql (Bld) Slight Normal [facility] Comment on above: Order Comment: Speci men Type: BLOOD SPECIMENOrdering Facility: [facility] Address: [address] [place], [place] [address] Performed By: #### 5 7021-8 ####[facility] LABCLIA [id number] [place] [id number] [place] RBC (Bld) [#/Vol] 3.06 10*6/uL Low 3.90-5.20 [facility] Comment on above: Order Comment: Speci men Type: BLOOD SPECIMENOrdering Facility: [facility] Address: [address] [place], [place] [address] Performed By: #### 5 7021-8 ####[facility] LABCLIA [id number] [place] [address] [place] RED CELL MORPH Reviewed: see result s of individual morphologies Normal [facility] Comment on above: Order Comment: Speci men Type: BLOOD SPECIMENOrdering Facility: [facility] Address: [address] [place] [address] Performed By: #### 5 7021-8 ####[facility] [id number] [place] [address] [place] WBC (Bld) [#/Vol] 2.93 10*3/uL Low 3.70-11.00 [facility] Comment on above: Order Comment: Speci men Type: BLOOD SPECIMENOrdering Facility: [facility] Address: [address] [place] [address] Performed By: #### 5 7021-8 ####[facility] [id number] [address] [place] CNPNon 10-29-2023 CNPN Telephone ([facility]) VIOLET HERNANDEZ ([id number]) 1985 F Date Time Provider Department 10/29/23 LEE KATZ [facility] During your visit today, we recorded the following information about you: Renata Booker 10/29/2023 9:01 AM Signed Patient is having surgery 11/10/[address] Katz and is requesting a letter to her employer stating x number of weeks time off. Patient does not qualify for FMLA. Please advise with return call. Sonia Lopez RN 10/30/2023 12:05 PM Signed Attempted to call patient. Left voicemail. Instructed patient to call office back. Sonia Lopez RN October 30, 2023 12:05 PM Toya Lopes 10/30/2023 3:32 PM Signed Pt wants a letter sent via [employer]. I am happy to get that drafted up but what do you think in terms of time off can she return at 4 weeks with restrictions? Allergies As of Date: 10/29/2023 (No Known Allergies) Date Reviewed: 10/26/2023 Reviewed by: Tracey Fowler RN - Fully Assessed Reason for Visit: Patient Question [1477] Prescriptions as of 11/17/2023 - ibuprofen (MOTRIN) 600 mg tablet Take 1 tablet by mouth every 6 hours as needed for pain. Take with food. - Senna 8.6 mg tab Take 2 tablets by mouth two times a day. - acetaminophen (TYLENOL) 325 mg tablet Take 2 tablets by mouth every 6 hours as needed for pain. - SUTAB 1.479-0.188- 0.225 gram tab as directed. - fluvoxaMINE Maleate (LUVOX) 25 mg tablet Take 100 mg by mouth once daily. - buPROPion XL (WELLBUTRIN XL) 150 mg 24 hr tablet Take 300 mg by mouth once daily. - ARIPiprazole (ABILIFY) 5 mg tablet Take by mouth. Problem List As Of Date 10/29/2023 Noted Resolved Obesity, Class I, BMI 30-34.9 [E66.811] 05/19/2023 Encounter Status:Closed by CHELSI MOTA on 11/17/23 Normal [facility] TYPE AND SCREEN,30 DAYon ABO A Normal [facility] Comment on above: Order Comment: Speci men Type: BLOOD SPECIMEN Ordering Facility: [facility] Address: [address] [place] [address] Performed By: #### T SCR30 #### [facility] CLIA [id number] [address] [place], [place] [address] [place] [address] [place] HISTORICAL AB SCR STATUS Negative Normal [facility] Comment on above: Order Comment: Speci men Type: BLOOD SPECIMEN Ordering Facility: [facility] Address: [address] [place] [address] Performed By: #### T SCR30 #### [facility] CLIA [id number] [facility] [address] [place] Rh Nom (Bld) Negative Normal [facility] Comment on above: Order Comment: Speci men Type: BLOOD SPECIMEN Ordering Facility: [facility] Address: [address] [place] [address] Performed By: #### T SCR30 #### [facility] CLIA [id number] [address] [place], [place] [address] [address] [place] CNPNon 10-28-2023 CNPN Telephone ([facility]) VIOLET EHRNANDEZ ([id number]) 1985 F Date Time Provider Department 10/28/23 LEE KATZ IGFV During your visit today, we recorded the following information about you: Fransico Payany 10/28/2023 9:01 AM Signed Patient calling into the office. She is a patient of Dr. Byrnes. She states that she is scheduled for surgery on 11/09 and that she had a couple of questions. She states that she has a colonoscopy coming up on 11/04 and is wondering if that is okay to do as she does not want a sedation conflict, they would be using twilight sedation. She is also wondering if there can be a letter put into her MyChart that states that she is having surgery with Dr. Katz on 11/09 and how long she would be off work for. She does not qualify for FMLA and states that this is what they would need. Please advise. Thank you Lakeshia Fox, SHARMILA 10/28/2023 11:18 AM Signed Called patient LVM to call the office Surgery scheduled for 11/10/2023-- this should not be a problem Recovery time is 6 weeks , not lifting, pushing, pulling more than 10 lbs Can return to work sooner if she has a job that can accommodate this SHARMILA Mcgraw Lindsay, APRN.DRUG SAFETY PHYSICIAN 10/28/2023 12:38 PM Signed Encounter Diagnosis ICD-10-CM 1. Preop testing Z01.818 COMPLETE BLOOD COUNT AND DIFFERENTIAL TYPE AND SCREEN,30 DAY Allergies As of Date: 10/28/2023 (No Known Allergies) Date Reviewed: 10/26/2023 Reviewed by: Tracey Fowler RN - Fully Assessed Reason for Visit: Patient Question [1477] Primary Visit Diagnosis:Preop testing [Z01.818] Order(s):COMPLETE BLOOD COUNT AND DIFFERENTIAL [SQCBCDIF] Order #: [id number] FUTURE TYPE AND SCREEN,30 DAY [XDRTWM23] Order #: [id number] FUTURE Prescriptions as of 10/28/2023 - naltrexone HCl (NALTREXONE ORAL) Take by mouth. - CRANBERRY ORAL Take 2 capsules by mouth once daily. 2 gummies daily - Drospirenone-Ethinyl Estradiol (KOKI, 28,) 3-0.03 mg per tablet Take 1 tablet by mouth once daily. FOR CONTINUOUS USE - Take only hormone pills, skipping placebo pills. - fluvoxaMINE Maleate (LUVOX) 25 mg tablet Take 100 mg by mouth once daily. - buPROPion XL (WELLBUTRIN XL) 150 mg 24 hr tablet Take 300 mg by mouth once daily. - ARIPiprazole (ABILIFY) 5 mg tablet Take by mouth. - Vitamin E, dl, acetate, (VITAMIN E) 400 unit capsule Take 400 Units by mouth once daily. - cyanocobalamin (VITAMIN B-12) 500 mcg tablet Take by mouth once daily. - multivit with min-folic acid (ONE-A-DAY WOMEN VITACRAVES) 200 mcg chew One-A-Day Women VitaCraves 200 mcg chewable tablet chew 1 tablet by oral route daily - zesxgmx-vcvmlebmb-msjcq in D3 500 mg(1,250mg) -200 unit per tablet Calcium 500 + D 500 mg (1,250 mg)-200 unit tablet take 1 tablet by oral route 2 times a day Problem List As Of Date 10/28/2023 Noted Resolved Obesity, Class I, BMI 30-34.9 [E66.9] 05/19/2023 Encounter Status:Closed by JEANIE YU on 10/28/23 Normal [facility] CNOVon 10-26-2023 CNOV Office Visit ([facility] ) VIOLET HERNANDEZ ([id number]) 1985 F Date Time Provider Department 10/26/23 9:30 AM LEE KATZ [facility] During your visit today, we recorded the following information about you: Blood pressure Weight Height 116/79 70.8 kg 1.473 m Lee Katz DO 10/26/2023 5:49 PM Signed [facility] SECTION FOR MINIMALLY INVASIVE GYNECOLOGIC SURGERY OUTPATIENT VISIT DATE 10/26/2023 OUTPATIENT VISIT TYPE NEW PRIMARY CARE PHYSICIAN: Emily Sanders ([facility]) [address] [place] [id number] REFERRING PHYSICIAN: Leo Barnett Consultation requested by Leo Monroe MD for an opinion regarding Violte Hernandez, and my final recommendations will be communicated back to the requesting physician by way of shared medical record or letter via US mail. CHIEF COMPLAINT: Fibroid, pelvic pain HISTORY OF PRESENT ILLNESS: Violet Hernandez is a pleasant 37 year old female who presents for evaluation of Fibroids. She reports that she has known about her fibroid for a few years, and was told it has increased in size. Endorses lower abdominal pain and pressure, especially with bending and activity. Denies any abnormal uterine bleeding. Was diagnosed with POI at age 20 and is currently on Khadra for control. Takes this medication continuously and does not get monthly menses. Sexually active without any issues. Endorses some vaginal dryness and spotting after intercourse. Endorses abdominal bloating and occasional constipation/diarrhea, is scheduled for GI consultation and colonoscopy. She is interested in hysterectomy for surgical management. Is not interested in future fertility. Last pap 05/07/2021 normal HPV negative Ultrasound 06/27/2023 IMPRESSION: Ovaries not visualized. 7.4 cm fibroid. RESULT: Uterus: -Size: 6.5 x 3.0 x 5.0 cm -Orientation: Anteverted -Endometrial echo complex: Evaluation of the endometrium was adequate. No endometrial abnormality. The endometrial echo complex measured 0.8 cm. -Cervix: Unremarkable. -Adenomyosis assessment: There are no sonographic findings of adenomyosis. -Fibroids: Fibroid # 1 -Size: Anterior fundus cm -Location: 7.0 x 6.5 x 7.4 -Type: Hybrid -Imaging features: Typical imaging features -Differential: None Right Ovary: Not identified. Left Ovary: Not identified. Free Fluid: No abnormal free fluid is present. 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 History Comments: Sexual Activity: Yes; Male Contraception: Pill Past Obstetrical History: OB History T0 L0 SAB0 IAB0 Ectopic0 Multiple0 Live Births0 Past Medical History: PAST MEDICAL HISTORY Diagnosis Date Anxiety Depression Leukopenia Mitral prolapse Premature ovarian failure Past Surgical History: PAST SURGICAL HISTORY Procedure Laterality Date BONE MARROW BIOPSY x 2 ORAL SURGERY PROCEDURE Family History: FAMILY HISTORY Problem Relation Age of Onset Cataract Mother Macular Degen Mother Hypertension Father No Known Problems Sister No Known Problems Brother Breast Cancer Maternal Grandmother 55 Skin Cancer Maternal Grandmother Diabetes Maternal Grandmother Heart disease Maternal Grandfather Heart disease Paternal Grandmother Stroke Paternal Grandfather Social History: Social History Tobacco Use Smoking status: Never Smokeless tobacco: Never Vaping Use Vaping status: Never Used Substance Use Topics Alcohol use: Never Drug use: Never Current Outpatient Medications Medication Sig CRANBERRY ORAL Take 2 capsules by mouth once daily. 2 gummies daily Drospirenone-Ethinyl Estradiol (KOKI, 28,) 3-0.03 mg per tablet Take 1 tablet by mouth once daily. FOR CONTINUOUS USE - Take only hormone pills, skipping placebo pills. fluvoxaMINE Maleate (LUVOX) 25 mg tablet Take 100 mg by mouth once daily. buPROPion XL (WELLBUTRIN XL) 150 mg 24 hr tablet Take 300 mg by mouth once daily. ARIPiprazole (ABILIFY) 5 mg tablet Take by mouth. Vitamin E, dl, acetate, (VITAMIN E) 400 unit capsule Take 400 Units by mouth once daily. cyanocobalamin (VITAMIN B-12) 500 mcg tablet Take by mouth once daily. multivit with min-folic acid (ONE-A-DAY WOMEN VITACRAVES) 200 mcg chew One-A-Day Women VitaCraves 200 mcg chewable tablet chew 1 tablet by oral route daily naltrexone HCl (NALTREXONE ORAL) Take by mouth. nyaeoad-qhxtnihgk-uuyym in D3 500 mg(1,250mg) -200 unit per tablet Calcium 500 + D 500 mg (1,250 mg)-200 unit tablet take 1 tablet by oral route 2 times a day (Patient not taking: Reported on 05/19/2023) No current facility-administe (more content not included)... Normal [facility] Celiac Disease Profileon ENDOMYSIAL IGA Negative Normal Negative [facility] Comment on above: Performed By: #### L 3890.6202, L3410.9992, L3100.0460, L500.4100, L3890.6301, L3890.6102, L500.2500, L3300.1200, L800.1280, L803.2200, L100.0100, L503.6030, L3100.0300, L503.6550, L501.9985 #### [facility] [address] [place], [address] IMMUNOGLOB A QN 182 mg/dL Normal 87-352 [facility] Comment on above: Result Comment: Perf ormed at: - [facility] [address] [id number] Chief Security Officer: Jorgito Cunningham PhD, Phone: [phone] Performed By: #### L 3890.6202, L3410.9992, L3100.0460, L500.4100, L3890.6301, L3890.6102, L500.2500, L3300.1200, L800.1280, L803.2200, L100.0100, L503.6030, L3100.0300, L503.6550, L501.9985 #### [facility] [address] [place], [place], [id number] tTG IGA <2 Normal 0-3 [facility] Comment on above: Result Comment: Nega tive 0 - 3 Weak Positive 4 - 10 Positive >10 Tissue Transglutaminase (tTG) has been identified as the endomysial antigen. Studies have demonstr- ated that endomysial IgA antibodies have over 99% specificity for gluten sensitive enteropathy. Performed By: #### L 3890.6202, L3410.9992, L3100.0460, L500.4100, L3890.6301, L3890.6102, L500.2500, L3300.1200, L800.1280, L803.2200, L100.0100, L503.6030, L3100.0300, L503.6550, L501.9985 #### [facility] [address] [place], [place], [id number] Urgent Care Visit Reporton 0 10-06-2023 Urgent Care Visit Report [facility] [address], [address] [place], [place] [address] OFFICE VISIT Date of Service: 10/06/23 MR#: [id number] Acct: [id number] Name: VIOLET HERNANDEZ Rep #: [id number] : 1985 Provider: ELIZABETH Lala Age/Sex: 37/F Location: [facility] Status: Signed Intake Vital Signs 08/21/23 13:06 10/06/23 09:35 Height 4 ft 10 in 4 ft 10 in Weight: 157 lb 156 lb BMI 32.8 32.5 BP 120/70 128/86 H Blood Pressure Location Lt brachial Lt brachial Position Sitting Sitting Respiration 16 16 Pulse 57 L 88 Pulse Source Monitor Monitor Temp 97.4 F L 99.1 F Temp Source Temporal Temporal Pulse Oximetry (%) 97 97 Oxygen Delivery Method room air room air Intake Visit Reasons: CONGESTION/CASSIDY/SINUS PAIN/PRESSURE/BA Chief Complaint: congestion headache jaw teeth sinus pressure st aches 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 Accompanied by: Son Is patient in pain?: No Allergies No Known Allergies Allergy (Verified 10/06/23 09:35) Medications ???Medication ???Instructions ???Recorded ???Confirmed ???Type multivitamin 1 tablet PO DAILY 02/16/19 10/06/23 History norgestimate 0.25 mg-ethinyl 1 tab PO DAILY 02/16/19 10/06/23 History estradiol 35 mcg tablet cyanocobalamin (vitamin B-12) 500 1,000 mcg PO DAILY@0800 03/26/20 10/06/23 History mcg tablet vitamin E (dl, acetate) 180 mg 400 units PO DAILY 03/26/20 10/06/23 History (400 unit) capsule bupropion HCl 150 mg 24 hr tablet, 300 mg PO QAM 07/19/20 10/06/23 History extended release aripiprazole 5 mg tablet 5 mg PO DAILY 01/17/22 10/06/23 History fluvoxamine 25 mg tablet 100 mg PO DAILY 04/24/22 10/06/23 History zinc gluconate 50 mg tablet 50 mg PO DAILY 11/03/22 10/06/23 History cranberry 400 mg capsule 400 mg PO DAILY 02/01/23 10/06/23 History docusate sodium 100 mg capsule 100 mg PO DAILY 02/01/23 10/06/23 History (Stool Softener) naltrexone 50 mg tablet 50 mg PO DAILY 08/21/23 10/06/23 History benzonatate 200 mg capsule 200 mg PO TID PRN cough #20 caps 10/06/23 10/06/23 Rx methylprednisolone 4 mg tablets in See Rx Instructions PO PER PKG DIR 10/06/23 10/06/23 Rx a dose pack (Medrol (Kip)) #21 tabs PFSH Medical History Obesity (BMI 30.0-34.9) Abdominal pain Chronic diarrhea Preventative health care Depression Anxiety Cervical radiculopathy Hyperglycemia Encounter for vitamin deficiency screening Chronic neck pain Hypersomnolence Screening for thyroid disorder Health care maintenance Congestion of left ear Post-nasal drip Urinary frequency Nonrheumatic mitral (valve) prolapse Non-alcoholic fatty liver disease Suicide ideation Anxiety and depression Heart valve disorder Vitamin deficiency Vision problems Hormone deficiency Frequent headaches H/O emotional problems UTI (urinary tract infection) Seasonal allergies Surgical History Hx of local excision of skin lesion History of bone marrow biopsy Family History Brother Anxiety Hypertension Sister Anxiety Hypertension Uncle Anxiety Myocardial infarction Aunt Anxiety Grandmother Breast cancer Grandfather Myocardial infarction Father Hypertension Social History Smoking Status: Never smoker alcohol intake: never substance use type: does not use caffeine: Yes Type: tea Number of servings: 1 HPI HPI Chief Complaint: congestion headache jaw teeth sinus pressure st aches Details: VIOLET HERNANDEZ, is a 37 F who presents to the office today for initial evaluation in the [facility] for less than 24-hour history of persistent chills, sore throat, cough, CASSIDY, myalgias, fatigue, sinus pressure/congestion. Patient notes no complaints of chest pain or shortness of breath or dyspnea on exertion. Several close contacts recently dx???d w/ similar URI complaints -including and son. No tjjt-igq-zdibfwq taken to assist. No other associated symptoms and no other alleviating/aggravating factors. ROS Const Constitutional: No other (As above) Exam Const General: cooperative, healthy appearing and no acute distress Orientation: alert, awake and oriented x3 HENMT Head: normal to inspection Ears: hearing grossly normal bilaterally, external ears normal, TM's normal bilaterally and EAC's normal Nose: external nose normal, nares normal, septum normal and clear nasal discharge Face and sinus: normal facial exam, sinuses nontender and face symmetric Mouth: oral mucosae normal, lip normal, tongue normal and oropharynx normal Throat: posterior oropharynx normal, tonsils normal, uvula midline and no postnasal drainage (more content not included)... Normal [facility] CRPon 10-05-2023 C-REACTIVE PROT 4.40 mg/L High 0.0-3.0 [facility] Comment on above: Result Comment: C-Re active Protein (CRP) provides useful information for the diagnosis, therapy and monitoring of inflammatory processes and associated diseases. For the evaluation of Relative Risk for Cardiovascular Disease, a High Sensitivity CRP (HSCRP) should be ordered. Performed By: #### L 3890.6202, L3410.9992, L3100.0460, L500.4100, L3890.6301, L3890.6102, L500.2500, L3300.1200, L800.1280, L803.2200, L100.0100, L503.6030, L3100.0300, L503.6550, L501.9985 #### [facility] [address] [place], [address] Calprotectin, Stoolon [address] 191 ug/g Abnormal 0-120 [facility] Comment on above: Result Comment: Conc entration Interpretation Follow-Up < 5 - 50 ug/g Normal None >50 -120 ug/g Borderline Re-evaluate in 4-6 weeks >120 ug/g Abnormal Repeat as clinically indicated Performed at: [address] [id number] Chief Security Officer: Montserrat Gibbons MD, Phone: [phone] Performed By: #### L 3890.6202, L3410.9992, L3100.0460, L500.4100, L3890.6301, L3890.6102, L500.2500, L3300.1200, L800.1280, L803.2200, L100.0100, L503.6030, L3100.0300, L503.6550, L501.9985 #### [facility] [address] [place], [address] ENTERIC PATHOGEN PANEL STOOL on 08-22-2023 EP PANEL Not detected for Campylobacter group, Salmonella species, Shigella species, Vibrio Group, Yersinia enterocolitica, EHEC (Shiga Toxin 1, Shiga Toxin 2), Norovirus Gl/Gll, and Rotavirus A. Other common stool pathogens are not detected on this panel include: Aeromonas/Plesiomonas or parasites. Order testing for these organisms separately if suspected. This is an amplified DNA test which makes it both specific and sensitive. GI pathogens Pnl Stl MALKA+probe Normal Reference Range = Not Detected GI pathogens Pnl Stl MALKA+probe Nucleic acid amplification test method CAMPYLOBACTER Not Detected Norovirus Not Detected Rotavirus Not Detected Salmonella Not Detected Shiga Toxin Not Detected Shigella sp. Not Detected VIBRIO Not Detected Yersinia Not Detected Normal [facility] Comment on above: Performed By: #### L 3890.6202, L3410.9992, L3100.0460, L500.4100, L3890.6301, L3890.6102, L500.2500, L3300.1200, L800.1280, L803.2200, L100.0100, L503.6030, L3100.0300, L503.6550, L501.9985 #### [facility] [address] [place], [address] CBC W/Diff, Automatedon 07-1 2-2023 Absolute Lymph 0.69 X10 3/uL Low 0.83-4.51 [facility] Comment on above: Performed By: #### L 506.0400, L100.0100, L501.9520, L500.4050 ####[facility] [address] [place], [address] Absolute Neut 1.1 X10 3/uL Low 2.0-7.7 [facility] Comment on above: Performed By: #### L 506.0400, L100.0100, L501.9520, L500.4050 ####[facility] [address] [place], [address] Basophils/100 WBC (Bld) 0.8 % Normal 0-1 [facility] Comment on above: Performed By: #### L 506.0400, L100.0100, L501.9520, L500.4050 ####[facility] [address] [place], [address] Eosinophils/100 WBC (Bld) 2.1 % Normal 0-5 [facility] Comment on above: Performed By: #### L 506.0400, L100.0100, L501.9520, L500.4050 ####[facility] [address] [place], [address] Erythrocyte distribution width (RBC) [Ratio] 14.5 % Normal 11.6-14.6 [facility] Comment on above: Performed By: #### L 506.0400, L100.0100, L501.9520, L500.4050 ####[facility] [address] [place], [address] Hematocrit (Bld) [Volume fraction] 33.8 % Low 37-47 [facility] Comment on above: Performed By: #### L 506.0400, L100.0100, L501.9520, L500.4050 ####[facility] [address] [place], [address] Hemoglobin (Bld) [Mass/Vol] 11.3 g/dL Low 12.0-15.0 [facility] Comment on above: Performed By: #### L 506.0400, L100.0100, L501.9520, L500.4050 ####[facility] [address] [place], [address] IG% 0.400 Normal 0.0-0.9 [facility] Comment on above: Result Comment: IG% - Immature Granulocytes (promyelocytes, myelocytes and metamyelocytes) > 1% indicates that a LEFT SHIFT is Present. Performed By: #### L 506.0400, L100.0100, L501.9520, L500.4050 ####[facility] [address] [place], [address] Lymphocytes/100 WBC (Bld) 28.6 % Normal 19-41 [facility] Comment on above: Performed By: #### L 506.0400, L100.0100, L501.9520, L500.4050 ####[facility] [address] [place], [address] MCH (RBC) [Entitic mass] 36.7 pg High 27.0-32.0 [facility] Comment on above: Performed By: #### L 506.0400, L100.0100, L501.9520, L500.4050 ####[facility] [address] [place], [address] MCHC (RBC) [Mass/Vol] 33.4 g/dL Normal 32-36 [facility] Comment on above: Performed By: #### L 506.0400, L100.0100, L501.9520, L500.4050 ####[facility] [address] [place], [address] MCV (RBC) [Entitic vol] 109.7 fL High 81-99 [facility] Comment on above: Performed By: #### L 506.0400, L100.0100, L501.9520, L500.4050 ####[facility] [address] [place], [address] Monocytes/100 WBC (Bld) 21.2 % High 0-10 [facility] Comment on above: Performed By: #### L 506.0400, L100.0100, L501.9520, L500.4050 ####[facility] [address] [place], [address] Neutrophils/100 WBC (Bld) 46.9 % Low 47-70 [facility] Comment on above: Performed By: #### L 506.0400, L100.0100, L501.9520, L500.4050 ####[facility] [address] [place], [address] Nucleated RBC (Bld) [#/Vol] 0 10*3/uL Normal 0-5 [facility] Comment on above: Performed By: #### L 506.0400, L100.0100, L501.9520, L500.4050 ####[facility] [address] [place], [address] Platelet mean volume (Bld) [Entitic vol] 10.9 fL Normal 6.2-12.0 [facility] Comment on above: Performed By: #### L 506.0400, L100.0100, L501.9520, L500.4050 ####[facility] [address] [place], [address] Platelets (Bld) [#/Vol] 126 10*3/uL Low 150-450 [facility] Comment on above: Performed By: #### L 506.0400, L100.0100, L501.9520, L500.4050 ####[facility] [address] [place], [address] RBC (Bld) [#/Vol] 3.08 10*6/uL Low 4.2-5.4 [facility] Comment on above: Performed By: #### L 506.0400, L100.0100, L501.9520, L500.4050 ####[facility] [address] [place], [address] RDW SD 58.3 fl High 35.1-43.9 [facility] Comment on above: Performed By: #### L 506.0400, L100.0100, L501.9520, L500.4050 ####[facility] [address] [place], [address] WBC (Bld) [#/Vol] 2.4 10*3/uL Low 4.4-11.0 [facility] Comment on above: Performed By: #### L 506.0400, L100.0100, L501.9520, L500.4050 ####[facility] [address] [place], [address] Comprehensive Metabolic Prof iaon 08-21-2023 Albumin [Mass/Vol] 3.4 g/dL Normal 3.2-5.0 [facility] Comment on above: Performed By: #### L 506.0400, L100.0100, L501.9520, L500.4050 ####[facility] [address] [place], [address] Albumin/Globulin [Mass ratio] 1.1 {ratio} Normal 0.9-2.4 [facility] Comment on above: Performed By: #### L 506.0400, L100.0100, L501.9520, L500.4050 ####[facility] [address] [place], [address] ALK P 71 U/L Normal 45-117 [facility] Comment on above: Performed By: #### L 506.0400, L100.0100, L501.9520, L500.4050 ####[facility] [address] [place], [address] ALT [Catalytic activity/Vol] 66 U/L High 13-56 [facility] Comment on above: Performed By: #### L 506.0400, L100.0100, L501.9520, L500.4050 ####[facility] [address] [place], [address] AST [Catalytic activity/Vol] 30 U/L Normal 15-37 [facility] Comment on above: Performed By: #### L 506.0400, L100.0100, L501.9520, L500.4050 ####[facility] [address] [place], [address] Bilirubin [Mass/Vol] 0.20 mg/dL Normal 0.20-1.00 [facility] Comment on above: Result Comment: For patients on eltrombopag therapy, use of Dimension [place] TBIL is not recommended. Performed By: #### L 506.0400, L100.0100, L501.9520, L500.4050 ####[facility] [address] [place], [address] BUN/CRE 15.5 RATIO Normal 10-20 [facility] Comment on above: Performed By: #### L 506.0400, L100.0100, L501.9520, L500.4050 ####[facility] [address] [place], [address] CA,Total 8.8 mg/dL Normal 8.5-10.1 [facility] Comment on above: Performed By: #### L 506.0400, L100.0100, L501.9520, L500.4050 ####[facility] [address] [place], [address] Chloride [Moles/Vol] 107 mmol/L Normal 98-107 [facility] Comment on above: Performed By: #### L 506.0400, L100.0100, L501.9520, L500.4050 ####[facility] [address] [place], [address] CO2 [Moles/Vol] 22.0 mmol/L Normal 21.0-32.0 [facility] Comment on above: Performed By: #### L 506.0400, L100.0100, L501.9520, L500.4050 ####[facility] [address] [place], [address] Creatinine [Mass/Vol] 0.90 mg/dL Normal 0.55-1.02 [facility] Comment on above: Result Comment: The validity of the calculated GFR GFRAA in patients over 70 years has not been determined. Clinical correlation is essential. Performed By: #### L 506.0400, L100.0100, L501.9520, L500.4050 ####[facility] [address] [place], [address] EST GFR - AA 90 mL/min Normal >60 [facility] Comment on above: Result Comment: Afri can Turkish GFR Calc Performed By: #### L 506.0400, L100.0100, L501.9520, L500.4050 ####[facility] [address] [place], [address] GAP 9 Normal 5-15 [facility] Comment on above: Performed By: #### L 506.0400, L100.0100, L501.9520, L500.4050 ####[facility] [address] [place], [address] GFR/1.73 sq M.predicted among non-blacks MDRD (S/P/Bld) [Vol rate/Area] 74 mL/min/{1.73_m2} Normal >60 [facility] Comment on above: Result Comment: Non- GFR Calc Performed By: #### L 506.0400, L100.0100, L501.9520, L500.4050 ####[facility] [address] [place], [address] Globulin (S) [Mass/Vol] 3.2 g/dL Normal 2.2-4.2 [facility] Comment on above: Performed By: #### L 506.0400, L100.0100, L501.9520, L500.4050 ####[facility] [address] [place], [address] Glucose [Mass/Vol] 133 mg/dL High 74-106 [facility] Comment on above: Result Comment: Fast ing Glucose result greater than or equal to 126 mg/dL suggests DIABETES MELLITUS per A.D.A. criteria. Performed By: #### L 506.0400, L100.0100, L501.9520, L500.4050 ####[facility] [address] [place], [address] Potassium [Moles/Vol] 3.8 mmol/L Normal 3.5-5.1 [facility] Comment on above: Performed By: #### L 506.0400, L100.0100, L501.9520, L500.4050 ####[facility] [address] [place], [address] Sodium [Moles/Vol] 138 mmol/L Normal 136-145 [facility] Comment on above: Performed By: #### L 506.0400, L100.0100, L501.9520, L500.4050 ####[facility] [address] [place], [address] T PROT 6.6 g/dL Normal 6.4-8.2 [facility] Comment on above: Performed By: #### L 506.0400, L100.0100, L501.9520, L500.4050 ####[facility] [address] [place], [address] Urea nitrogen [Mass/Vol] 14 mg/dL Normal 7-18 [facility] Comment on above: Performed By: #### L 506.0400, L100.0100, L501.9520, L500.4050 ####[facility] [address] [place], [address] Internal Medicine Office Vis sabas 08-21-2023 Internal Medicine Office Visit [facility], [address] [place] [address] [place] [address] OFFICE VISIT Date of Service: 08/21/23 MR#: [id number] Acct: [id number] Name: VIOLET HERNANDEZ Rep #: [id number] : 1985 Provider: Dr. Emily fofana MD Age/Sex: 37/F Location: 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 Accompanied by: Self Is patient in pain?: No Allergies No Known Allergies Allergy (Verified 08/21/23 13:00) Medications ???Medication ???Instructions ???Recorded ???Confirmed ???Type multivitamin 1 tablet PO DAILY 02/16/19 08/21/23 History norgestimate 0.25 mg-ethinyl 1 tab PO DAILY 02/16/19 08/21/23 History estradiol 35 mcg tablet cyanocobalamin (vitamin B-12) 500 1,000 mcg PO DAILY@0800 03/26/20 08/21/23 History mcg tablet vitamin E (dl, acetate) 180 mg 400 units PO DAILY 03/26/20 08/21/23 History (400 unit) capsule bupropion HCl 150 mg 24 hr tablet, 300 mg PO QAM 07/19/20 08/21/23 History extended release aripiprazole 5 mg tablet 5 mg PO DAILY 01/17/22 08/21/23 History fluvoxamine 25 mg tablet 100 mg PO DAILY 04/24/22 08/21/23 History zinc gluconate 50 mg tablet 50 mg PO DAILY 11/03/22 08/21/23 History cranberry 400 mg capsule 400 mg PO DAILY 02/01/23 08/21/23 History docusate sodium 100 mg capsule 100 mg PO DAILY 02/01/23 08/21/23 History (Stool Softener) naltrexone 50 mg tablet 50 mg PO DAILY 08/21/23 08/21/23 History PFSH Medical History (Updated 08/21/23 @ 16:[address] Emily Sanders MD) Obesity (BMI 30.0-34.9) Abdominal pain Chronic diarrhea Preventative health care Depression Anxiety Cervical radiculopathy Hyperglycemia Encounter for vitamin deficiency screening Chronic neck pain Hypersomnolence Screening for thyroid disorder Health care maintenance Congestion of left ear Post-nasal drip Urinary frequency Nonrheumatic mitral (valve) prolapse Non-alcoholic fatty liver disease Suicide ideation Anxiety and depression Heart valve disorder Vitamin deficiency Vision problems Hormone deficiency Frequent headaches H/O emotional problems UTI (urinary tract infection) Seasonal allergies Surgical History Hx of local excision of skin lesion History of bone marrow biopsy Family History Brother Anxiety Hypertension Sister Anxiety Hypertension Uncle Anxiety Myocardial infarction Aunt Anxiety Grandmother Breast cancer Grandfather Myocardial infarction Father Hypertension Social History Smoking Status: Never smoker alcohol intake: never substance use type: does not use caffeine: Yes Type: tea Number of servings: 1 HPI HPI Chief Complaint: loose stools Details: VIOLET HERNANDEZ, is a 37 F who presents to the office today for an acute visit. She reports loose stools which have been ongoing since June. She states that she has about 1-2 bowel movements daily but consistency is loose and typically associated with cramping/abdominal pain. Cramping/pain improves after bowel movement. Has also noted blood in her stool. Chronic history of hemorrhoids but she denies straining. Typically, with hemorrhoid she had just noted blood on wiping but at this time, blood is present in her stool. Had seen GI a few years ago but does not believe that she had a colonoscopy done at that time. No chills, fever or otherwise feeling of unwell. Recently started naltrexone. ROS Const Constitutional: No body ache, chills, excessive sweating, fatigue, fever(s), frequent falls, headache(s), snoring, weakness or change in appetite Eyes Eyes: No blurry vision, change in vision, floaters, visual disturbances, eye pain or Light sensitivity ENT ENT: No abnormal hearing, ear or mastoid pain, tinnitus, nosebleed/epistaxis, nasal congestion, headache(s), neck pain or sore throat Resp Respiratory: No cough, excessive phlegm production, pain on inspiration, shortness of breath, snoring or wheezing Cardio Cardiology: No chest pain at rest, chest pain with exertion, excessive sweating, dyspnea on exertion, lightheadedness, orthopnea or palpitations Gastro GI: Positive for abdominal pain, bloating, change in stool character, cramping, diarrhea, excessive flatus, loose stools and nausea/dyspepsia; No change in bowel habits, co (more content not included)... Normal [facility] Stool Lactoferrin/WBCon 08-09 WBCST Normal Reference Ran ge = Negative Fecal WBC Lactoferrin A Positive: Fecal WBC Lactoferrin present A Normal [facility] Comment on above: Performed By: #### L 3890.6202, L3410.9992, L3100.0460, L500.4100, L3890.6301, L3890.6102, L500.2500, L3300.1200, L800.1280, L803.2200, L100.0100, L503.6030, L3100.0300, L503.6550, L501.9985 #### [facility] [address] [place], [place], [id number] T4 Free Directon 08-21-2023 T4 FREE DIRECT 0.71 ng/dL Low 0.76-1.46 [facility] Comment on above: Performed By: #### L 506.0400, L100.0100, L501.9520, L500.4050 ####[facility] [address] [place], [place], [address] Thyroid Stim Hormone (TSH)on 08-21-2023 TSH 2.31 uIU/mL Normal 0.358-3.74 [facility] Comment on above: Performed By: #### L 506.0400, L100.0100, L501.9520, L500.4050 ####[facility] [address] [place], [place], [id number] CNPNon 08-17-2023 [facility] VIOLET HERNANDEZ ([id number]) 1985 F Date Time Provider Department 08/17/23 LEE KATZ During your visit today, we recorded the following information about you: Sherly Daily 08/17/2023 8:50 AM Signed Pt called in and [facility] re: surgery consult appointment Pt scheduled for surgery consult with Dr. Katz 10/26/23. Pt asking if Dr. Katz uses the bag if she does the morcellation laparoscopic hysterectomy. BRIANDA: 08/12/[address] Monroe ASSESSMENT AND PLAN: Encounter Diagnosis ICD-10-CM 1. Intramural and subserous leiomyoma of uterus D25.1 CONSULT TO MINIMALLY INVASIVE GYNECOLOGIC SURGERY D25.2 CONSULT TO MINIMALLY INVASIVE GYNECOLOGIC SURGERY 2. Pelvic pressure in female R10.2 CONSULT TO MINIMALLY INVASIVE GYNECOLOGIC SURGERY 3. Urinary frequency R35.0 4. 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 Discussed with patient I am concerned with performing Laparoscopic procedure in [place] as morcellation and removal of uterus and closure of cuff would be difficult due to limited vaginal access. I would recommend consultation with [facility] for Laparoscopic morcellation. Pt agreeable to this plan. I will send chart to Dr. Katz in [place]. Medical Decision Making: Problems: Moderate: 1+ chronic illnesses with change Risk: High: Decision on elective major surgery w/ risk factors Medical Decision Making Level: 4 - Moderate Leo Abdi MD Will route to Dr. Katz to respond. Ok to send a mychart update to pt. Lakeshia Fox RN 08/17/2023 9:50 AM Signed Called patient verified name and Relayed message below Patient understood and was thankful for the call Lakeshia Fox RN Lee Katz DO Ogi A81 Nurse Abauyc11 minutes ago (9:30 AM) MB Yes. Pls tell her yes. Allergies As of Date: 08/17/2023 (No Known Allergies) Date Reviewed: 08/12/2023 Reviewed by: Edith Infante MA - Fully Assessed Reason for Visit: Patient Question [4817] Prescriptions as of 08/17/2023 - naltrexone HCl (NALTREXONE ORAL) Take by mouth. - CRANBERRY ORAL Take 2 capsules by mouth once daily. 2 gummies daily - Drospirenone-Ethinyl Estradiol (KOKI, 28,) 3-0.03 mg per tablet Take 1 tablet by mouth once daily. FOR CONTINUOUS USE - Take only hormone pills, skipping placebo pills. - fluvoxaMINE Maleate (LUVOX) 25 mg tablet Take 100 mg by mouth once daily. - buPROPion XL (WELLBUTRIN XL) 150 mg 24 hr tablet Take 300 mg by mouth once daily. - ARIPiprazole (ABILIFY) 5 mg tablet Take by mouth. - Vitamin E, dl, acetate, (VITAMIN E) 400 unit capsule Take 400 Units by mouth once daily. - cyanocobalamin (VITAMIN B-12) 500 mcg tablet Take by mouth once daily. - multivit with min-folic acid (ONE-A-DAY WOMEN VITACRAVES) 200 mcg chew One-A-Day Women VitaCraves 200 mcg chewable tablet chew 1 tablet by oral route daily - eoeocum-itaukpniu-igzld in D3 500 mg(1,250mg) -200 unit per tablet Calcium 500 + D 500 mg (1,250 mg)-200 unit tablet take 1 tablet by oral route 2 times a day Problem List As Of Date 08/17/2023 Noted Resolved Obesity, Class I, BMI 30-34.9 [E66.9] 05/19/2023 Encounter Status:Closed by SHERLY DAILY on 08/17/23 [facility] Fam 08-14-2023 [facility] GRASSVIOLET SUTHERLAND ([id number]) 1985 F Date Time Provider Department 08/14/23 LEE KATZ During your visit today, we recorded the following information about you: Lee Jama 08/14/2023 8:13 AM Signed Patient called into the office on 08/14/2023 and would like to speak to Dr. Byrnes nurse in regards to her up and coming appointment with Dr. Katz. Patient had some clinical questions in regards to hysterectomy. Please call patient at [phone]. Thanks Lee Jama Allergies As of Date: 08/14/2023 (No Known Allergies) Date Reviewed: 08/12/2023 Reviewed by: Edith Infante MA - Fully Assessed Reason for Visit: Appointment [186] Prescriptions as of 08/14/2023 - naltrexone HCl (NALTREXONE ORAL) Take by mouth. - CRANBERRY ORAL Take 2 capsules by mouth once daily. 2 gummies daily - Drospirenone-Ethinyl Estradiol (KOKI, 28,) 3-0.03 mg per tablet Take 1 tablet by mouth once daily. FOR CONTINUOUS USE - Take only hormone pills, skipping placebo pills. - fluvoxaMINE Maleate (LUVOX) 25 mg tablet Take 100 mg by mouth once daily. - buPROPion XL (WELLBUTRIN XL) 150 mg 24 hr tablet Take 300 mg by mouth once daily. - ARIPiprazole (ABILIFY) 5 mg tablet Take by mouth. - Vitamin E, dl, acetate, (VITAMIN E) 400 unit capsule Take 400 Units by mouth once daily. - cyanocobalamin (VITAMIN B-12) 500 mcg tablet Take by mouth once daily. - multivit with min-folic acid (ONE-A-DAY WOMEN VITACRAVES) 200 mcg chew One-A-Day Women VitaCraves 200 mcg chewable tablet chew 1 tablet by oral route daily - yygtjur-yvmxgblsm-jhzln in D3 500 mg(1,250mg) -200 unit per tablet Calcium 500 + D 500 mg (1,250 mg)-200 unit tablet take 1 tablet by oral route 2 times a day Problem List As Of Date 08/14/2023 Noted Resolved Obesity, Class I, BMI 30-34.9 [E66.9] 05/19/2023 Encounter Status:Closed by LEE JAMA on 08/14/23 [facility] CNOVon 08-12-2023 CNOV Office Visit (OBGYWM ) VIOLET HERNANDEZ ([id number]) 1985 F Date Time Provider Department 08/12/23 11:40 AM LEO BARNETT OBGYWMatt During your visit today, we recorded the following information about you: Blood pressure Weight 118/72 71.7 kg Leo Barnett MD 08/12/2023 1:13 PM 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 Violet Hernandez is a 37 year old female who presents for discussion regarding fibroid uterus and surgical mgmt. Pt reports is currently taking OCPs for Premature ovarian failure at age 20. Pt reports had some irregular spotting that resolved. Pt states that she experiences some abdominal discomfort more with exercise, some urinary frequency and some pelvic pressure. Pt reports she does not wish to keep her uterus at this time. Pt reports no other concerns at this time. 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 History Comments: Sexual Activity: Yes; Male Contraception: Pill PAST MEDICAL HISTORY Diagnosis Date Anxiety Depression Leukopenia Mitral prolapse Premature ovarian failure PAST SURGICAL HISTORY Procedure Laterality Date BONE MARROW BIOPSY x 2 ORAL SURGERY PROCEDURE FAMILY HISTORY Problem Relation Age of Onset Cataract Mother Macular Degen Mother Hypertension Father No Known Problems Sister No Known Problems Brother Breast Cancer Maternal Grandmother 55 Skin Cancer Maternal Grandmother Diabetes Maternal Grandmother Heart disease Maternal Grandfather Heart disease Paternal Grandmother Stroke Paternal Grandfather Social History Tobacco Use Smoking status: Never Smokeless tobacco: Never Vaping Use Vaping Use: Never used Substance Use Topics Alcohol use: Never Drug use: Never Current Outpatient Medications Medication Sig naltrexone HCl (NALTREXONE ORAL) Take by mouth. CRANBERRY ORAL Take 2 capsules by mouth once daily. 2 gummies daily Drospirenone-Ethinyl Estradiol (KOKI, 28,) 3-0.03 mg per tablet Take 1 tablet by mouth once daily. FOR CONTINUOUS USE - Take only hormone pills, skipping placebo pills. fluvoxaMINE Maleate (LUVOX) 25 mg tablet Take 100 mg by mouth once daily. buPROPion XL (WELLBUTRIN XL) 150 mg 24 hr tablet Take 300 mg by mouth once daily. ARIPiprazole (ABILIFY) 5 mg tablet Take by mouth. Vitamin E, dl, acetate, (VITAMIN E) 400 unit capsule Take 400 Units by mouth once daily. cyanocobalamin (VITAMIN B-12) 500 mcg tablet Take by mouth once daily. multivit with min-folic acid (ONE-A-DAY WOMEN VITACRAVES) 200 mcg chew One-A-Day Women VitaCraves 200 mcg chewable tablet chew 1 tablet by oral route daily irpmynj-slaobuajg-yjdkh in D3 500 mg(1,250mg) -200 unit per tablet Calcium 500 + D 500 mg (1,250 mg)-200 unit tablet take 1 tablet by oral route 2 times a day (Patient not taking: Reported on 05/19/2023) No current facility-administered medications for this visit. Allergies As of Date: 08/12/2023 (No Known Allergies) Fully Assessed 08/12/2023 REVIEW OF SYSTEMS Abdomen: pain with exercise and pressure. Bladder: frequency.. Expanded ROS: GENERAL: Negative for fever Allergies and current medication updated:Yes EXAM: BP 118/72 Wt 158 lb (71.7kg) LMP 06/09/2022 GENERAL: pleasant, female in no apparent distress HEENT: Normocephalic and atraumatic NECK: full range of motion DERMATOLOGY: Normal and without lesions ABDOMEN: soft, non-tender PELVIC: external genitalia normal, normal Bartholin's glands, urethra, [place]'s glands, no vulvar lesions, no cervical lesions, good vaginal support, physiologic discharge present, normal appearing perineal body and perianal region, narrow vagina BIMANUAL: no adnexal masses, non-tender, and uterus - difficult to palpate due to habitus but feels enlarged about to 14 weeks but feels mobile- very narrow vagina. NEURO: alert and oriented x3,exam grossly non-focal EXTREMITIES: normal ASSESSMENT AND PLAN: Encounter Diagnosis ICD-10-CM 1. Intramural and subserous leiomyoma of uterus D25.1 CONSULT TO MINIMALLY INVASIVE GYNECOLOGIC SURGERY D25.2 CONSULT TO MINIMALLY INVASIVE GYNECOLOGIC SURGERY 2. Pelvic pressure in female R10.2 CONSULT TO MINIMALLY INVASIVE GYNECOLOGIC SURGERY 3. Urinary frequency R35.0 4. 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 Discussed with patient I am concerned with performing Laparoscopic procedure in [place] as morcellation and removal of uterus and closure of cuff would be difficult due to limited vaginal access. I would recommend consultation with [facility] for Laparoscopic morcellation. Pt agreeable to this plan. I will send chart to Dr. Katz in [place]. Medical Decision Making: Problems: Moderate: 1+ chronic illnesses with ch (more content not included)... Normal [facility] CBC W/Diff, Automatedon 06-2 -2023 Absolute Lymph 0.85 X10 3/uL Normal 0.83-4.51 [facility] Comment on above: Performed By: #### L 100.9950, L500.4050, L100.0100 ####[facility] [address] [place], [address] Absolute Neut 1.9 X10 3/uL Low 2.0-7.7 [facility] Comment on above: Performed By: #### L 100.9950, L500.4050, L100.0100 ####[facility] [address] [place], [address] Basophils/100 WBC (Bld) 0.6 % Normal 0-1 [facility] Comment on above: Performed By: #### L 100.9950, L500.4050, L100.0100 ####[facility] [address] [place], [address] Eosinophils/100 WBC (Bld) 2.3 % Normal 0-5 [facility] Comment on above: Performed By: #### L 100.9950, L500.4050, L100.0100 ####[facility] [address] [place], [address] Erythrocyte distribution width (RBC) [Ratio] 14.2 % Normal 11.6-14.6 [facility] Comment on above: Performed By: #### L 100.9950, L500.4050, L100.0100 ####[facility] [address] [place], [address] Hematocrit (Bld) [Volume fraction] 36.2 % Low 37-47 [facility] Comment on above: Performed By: #### L 100.9950, L500.4050, L100.0100 ####[facility] [address] [place], [address] Hemoglobin (Bld) [Mass/Vol] 12.2 g/dL Normal 12.0-15.0 [facility] Comment on above: Performed By: #### L 100.9950, L500.4050, L100.0100 ####[facility] [address] [place], [address] IG% 0.300 Normal 0.0-0.9 [facility] Comment on above: Result Comment: IG% - Immature Granulocytes (promyelocytes, myelocytes and metamyelocytes) > 1% indicates that a LEFT SHIFT is Present. Performed By: #### L 100.9950, L500.4050, L100.0100 ####[facility] [address] [place], [address] Lymphocytes/100 WBC (Bld) 24.9 % Normal 19-41 [facility] Comment on above: Performed By: #### L 100.9950, L500.4050, L100.0100 ####[facility] [address] [place], [address] MCH (RBC) [Entitic mass] 36.7 pg High 27.0-32.0 [facility] Comment on above: Performed By: #### L 100.9950, L500.4050, L100.0100 ####[facility] [address] [place], [address] MCHC (RBC) [Mass/Vol] 33.7 g/dL Normal 32-36 [facility] Comment on above: Performed By: #### L 100.9950, L500.4050, L100.0100 ####[facility] [address] [place], [address] MCV (RBC) [Entitic vol] 109.0 fL High 81-99 [facility] Comment on above: Performed By: #### L 100.9950, L500.4050, L100.0100 ####[facility] [address] [place], [address] Monocytes/100 WBC (Bld) 15.5 % High 0-10 [facility] Comment on above: Performed By: #### L 100.9950, L500.4050, L100.0100 ####[facility] [address] [place], [address] Neutrophils/100 WBC (Bld) 56.4 % Normal 47-70 [facility] Comment on above: Performed By: #### L 100.9950, L500.4050, L100.0100 ####[facility] [address] [place], [address] Nucleated RBC (Bld) [#/Vol] 0 10*3/uL Normal 0-5 [facility] Comment on above: Performed By: #### L 100.9950, L500.4050, L100.0100 ####[facility] [address] [place], [address] Platelet mean volume (Bld) [Entitic vol] 10.5 fL Normal 6.2-12.0 [facility] Comment on above: Performed By: #### L 100.9950, L500.4050, L100.0100 ####[facility] [address] [place], [address] Platelets (Bld) [#/Vol] 133 10*3/uL Low 150-450 [facility] Comment on above: Performed By: #### L 100.9950, L500.4050, L100.0100 ####[facility] [address] [place], [address] RBC (Bld) [#/Vol] 3.32 10*6/uL Low 4.2-5.4 [facility] Comment on above: Performed By: #### L 100.9950, L500.4050, L100.0100 ####[facility] [address] [place], [address] RDW SD 56.7 fl High 35.1-43.9 [facility] Comment on above: Performed By: #### L 100.9950, L500.4050, L100.0100 ####[facility] [address] [place], [address] WBC (Bld) [#/Vol] 3.4 10*3/uL Low 4.4-11.0 [facility] Comment on above: Performed By: #### L 100.9950, L500.4050, L100.0100 ####[facility] [address] [place], [address] Comprehensive Metabolic Prof [facility] 08-06-2023 Albumin [Mass/Vol] 3.7 g/dL Normal 3.2-5.0 [facility] Comment on above: Performed By: #### L 100.9950, L500.4050, L100.0100 ####[facility] [address] [place], [address] Albumin/Globulin [Mass ratio] 1.1 {ratio} Normal 0.9-2.4 [facility] Comment on above: Performed By: #### L 100.9950, L500.4050, L100.0100 ####[facility] [address] [place], [address] ALK P 69 U/L Normal 45-117 [facility] Comment on above: Performed By: #### L 100.9950, L500.4050, L100.0100 ####[facility] [address] [place], [address] ALT [Catalytic activity/Vol] 96 U/L High 13-56 [facility] Comment on above: Performed By: #### L 100.9950, L500.4050, L100.0100 ####[facility] [address] [place], [address] AST [Catalytic activity/Vol] 54 U/L High 15-37 [facility] Comment on above: Performed By: #### L 100.9950, L500.4050, L100.0100 ####[facility] [address] [place], [address] Bilirubin [Mass/Vol] 0.30 mg/dL Normal 0.20-1.00 [facility] Comment on above: Result Comment: For patients on eltrombopag therapy, use of Dimension [place] TBIL is not recommended. Performed By: #### L 100.9950, L500.4050, L100.0100 ####[facility] [address] [place], [address] BUN/CRE 16.7 RATIO Normal 10-20 [facility] Comment on above: Performed By: #### L 100.9950, L500.4050, L100.0100 ####[facility] [address] [place], [address] CA,Total 9.2 mg/dL Normal 8.5-10.1 [facility] Comment on above: Performed By: #### L 100.9950, L500.4050, L100.0100 ####[facility] [address] [place], [address] Chloride [Moles/Vol] 105 mmol/L Normal 98-107 [facility] Comment on above: Performed By: #### L 100.9950, L500.4050, L100.0100 ####[facility] [address] [place], [address] CO2 [Moles/Vol] 24.0 mmol/L Normal 21.0-32.0 [facility] Comment on above: Performed By: #### L 100.9950, L500.4050, L100.0100 ####[facility] [address] [place], [address] Creatinine [Mass/Vol] 0.96 mg/dL Normal 0.55-1.02 [facility] Comment on above: Result Comment: The validity of the calculated GFR GFRAA in patients over 70 years has not been determined. Clinical correlation is essential. Performed By: #### L 100.9950, L500.4050, L100.0100 ####[facility] [address] [place], [address] ECRCL 69.52 ml/min Normal [facility] Comment on above: Performed By: #### L 100.9950, L500.4050, L100.0100 ####[facility] [address] [place], [address] EST GFR - AA 84 mL/min Normal >60 [facility] Comment on above: Result Comment: Afri can Turkish GFR Calc Performed By: #### L 100.9950, L500.4050, L100.0100 ####[facility] [address] [place], [address] GAP 10 Normal 5-15 [facility] Comment on above: Performed By: #### L 100.9950, L500.4050, L100.0100 ####[facility] [address] [place], [address] GFR/1.73 sq M.predicted among non-blacks MDRD (S/P/Bld) [Vol rate/Area] 69 mL/min/{1.73_m2} Normal >60 [facility] Comment on above: Result Comment: Non- GFR Calc Performed By: #### L 100.9950, L500.4050, L100.0100 ####[facility] [address] [place], [address] Globulin (S) [Mass/Vol] 3.5 g/dL Normal 2.2-4.2 [facility] Comment on above: Performed By: #### L 100.9950, L500.4050, L100.0100 ####[facility] [address] [place], [address] Glucose [Mass/Vol] 171 mg/dL High 74-106 [facility] Comment on above: Result Comment: Fast ing Glucose result greater than or equal to 126 mg/dL suggests DIABETES MELLITUS per A.D.A. criteria. Performed By: #### L 100.9950, L500.4050, L100.0100 ####[facility] [address] [place], [address] Potassium [Moles/Vol] 3.7 mmol/L Normal 3.5-5.1 [facility] Comment on above: Performed By: #### L 100.9950, L500.4050, L100.0100 ####[facility] [address] [place], [address] Sodium [Moles/Vol] 139 mmol/L Normal 136-145 [facility] Comment on above: Performed By: #### L 100.9950, L500.4050, L100.0100 ####[facility] [address] [place], [address] T PROT 7.2 g/dL Normal 6.4-8.2 [facility] Comment on above: Performed By: #### L 100.9950, L500.4050, L100.0100 ####[facility] [address] [place], [address] Urea nitrogen [Mass/Vol] 16 mg/dL Normal 7-18 [facility] Comment on above: Performed By: #### L 100.9950, L500.4050, L100.0100 ####[facility] [address] [place], [address] Estimated glomerular filtrat ion rate (GFR) AmericanOrdered By: Gene Braun on 08-06-2023 Estimated GFR (MDRD) Amer 84 mL/min >60 [facility] Comment on above: GFR Calc Hemoglobin (Reticulocytes) [ Entitic mass]Ordered By: Gene Braun on 08-06-2023 Reticulocyte Hemoglobin Equivalent 39.8 pg High 30-35 [facility] Immature reticulocyte fracti onOrdered By: Gene Braun on 08-06-2023 Immature Reticulocyte Fraction 31.20 % High 3.00-15.90 [facility] Oncology Visit Reporton 07-11 Oncology Visit Report [facility] [place] [facility] [address] [place] [address] OFFICE VISIT Date of Service: 08/06/23 1352 MR#: [id number] Acct: [id number] Name: VIOLET HERNANDEZ Rep #: [id number] : 1985 From: Gene Braun MD Age/Sex: 37/F Location: [facility] Status: Signed HPI Subjective Date of Service 08/06/23 Chief Complaint F/u for Rash/night sweats History of Present Illness 37-year-old woman was found to be leukopenic in 2008. Had bone marrow biopsy done at that time which was negative so stayed on observation. She remained leukopenic, moved to [facility], had another bone marrow biopsy on 01/25/2015. Pathology showed hypocellular marrow with normal cytogenetics and FISH. She moved to [place] and wanted her follow done here at [place] [facility]. She is on observation, comes for follow up. Had a rash on the L forearm which has resolved, night sweats PFSH Medical History (Updated 08/06/23 @ 14:[address] Gene Braun MD) Preventative health care Depression Anxiety Cervical radiculopathy Hyperglycemia Encounter for vitamin deficiency screening Chronic neck pain Hypersomnolence Screening for thyroid disorder Health care maintenance Congestion of left ear Post-nasal drip Urinary frequency Nonrheumatic mitral (valve) prolapse Non-alcoholic fatty liver disease Suicide ideation Anxiety and depression Heart valve disorder Vitamin deficiency Vision problems Hormone deficiency Frequent headaches H/O emotional problems UTI (urinary tract infection) Seasonal allergies Surgical History Hx of local excision of skin lesion History of bone marrow biopsy Family History Brother Anxiety Hypertension Sister Anxiety Hypertension Uncle Anxiety Myocardial infarction Aunt Anxiety Grandmother Breast cancer Grandfather Myocardial infarction Father Hypertension Social History Smoking Status: Never smoker alcohol intake: never substance use type: does not use caffeine: Yes Type: tea Number of servings: 1 Intake Vital Signs 07/24/23 12:02 08/06/23 13:54 08/06/23 14:02 Height 4 ft 10 in 4 ft 10 in 4 ft 10 in Weight: 71.696 kg BMI 33.0 BP 128/79 H Blood Pressure Location Rt brachial Position Sitting Respiration 18 Pulse 83 Pulse Source Monitor Temp 98.1 F Temperature Source Temporal Artery Pulse Oximetry (%) 97 Oxygen Delivery Method room air Intake Is patient in pain?: Yes (back) Pain scale (1-10): 3 Allergies No Known Allergies Allergy (Verified 08/06/23 13:59) Medications ???Medication ???Instructions ???Recorded ???Confirmed ???Type multivitamin 1 tablet PO DAILY 02/16/19 08/06/23 History norgestimate 0.25 mg-ethinyl 1 tab PO DAILY 02/16/19 08/06/23 History estradiol 35 mcg tablet cyanocobalamin (vitamin B-12) 500 1,000 mcg PO DAILY@0800 03/26/20 08/06/23 History mcg tablet vitamin E (dl, acetate) 180 mg 400 units PO DAILY 03/26/20 08/06/23 History (400 unit) capsule bupropion HCl 150 mg 24 hr tablet, 300 mg PO QAM 07/19/20 08/06/23 History extended release aripiprazole 5 mg tablet 5 mg PO DAILY 01/17/22 08/06/23 History fluvoxamine 25 mg tablet 100 mg PO DAILY 04/24/22 08/06/23 History zinc gluconate 50 mg tablet 50 mg PO DAILY 11/03/22 08/06/23 History cranberry 400 mg capsule 400 mg PO DAILY 02/01/23 08/06/23 History docusate sodium 100 mg capsule 100 mg PO DAILY 02/01/23 08/06/23 History (Stool Softener) Central Venous Access Central Venous Access: No Laboratory Results 08/06/23 04/28/23 04/24/22 13:18 13:55 13:32 WBC 3.4 L 2.7 L 3.0 L Hgb 12.2 12.4 12.5 Hct 36.2 L 37.6 37.9 Plt Count 133 L 130 L 133 L Daggett % (Auto) 15.5 H Absolute Neuts (auto) 1.9 L 1.4 L 1.9 L Absolute Lymphs (auto) 0.85 Sodium Potassium Chloride Carbon Dioxide BUN Creatinine Glucose Calcium Total Bilirubin AST ALT Alkaline Phosphatase Lactate Dehydrogenase Total Protein Albumin Globulin 04/17/21 10:20 WBC 2.5 L Hgb 12.7 Hct 36.8 L Plt Count 135 L Daggett % (Auto) Absolute Neuts (auto) 1.4 L Absolute Lymphs (auto) Sodium 137 Potassium 4.1 Chloride 105 Carbon Dioxide 25.0 BUN 14 Creatinine 0.88 Glucose 85 Calcium 9.1 Total Bilirubin 0.30 AST 33 ALT 61 H Alkaline Phosphatase 67 Lactate Dehydrogenase 218 Total Protein 7.1 Albumin 3.8 Globulin 3.3 Exam Physical Exam Const alert, oriented x3 and no apparent distress General Appearance: cooperative and comfortable HEENT normocephalic, light adjuster (more content not included)... Normal [facility] Retic Panelon 08-06-2023 IM RET FRACTION 31.20 High 3.00-15.90 [facility] Comment on above: Performed By: #### L 100.9950, L500.4050, L100.0100 ####[facility] [address] [place], [address] RET-HE 39.8 pg High 30-35 [facility] Comment on above: Performed By: #### L 100.9950, L500.4050, L100.0100 ####[facility] [address] [place], [address] Retic Count 2.76 High 0.5-1.5 [facility] Comment on above: Performed By: #### L 100.9950, L500.4050, L100.0100 ####[facility] [address] [place], [address] Reticulocyte hemoglobin equi valent (RET-He) measurementOrdered By: Gene Braun on 08-06-2023 Hemoglobin (Reticulocytes) [Entitic mass] 39.8 pg High 30-35 [facility] Reticulocytes Auto (Bld) [#/ Vol]Ordered By: Gene Braun on 08-06-2023 Reticulocyte Count 2.76 % High 0.5-1.5 [facility] Reticulocytes/100 RBC (Bld) 2.76 % High 0.5-1.5 [facility] CNPNon 06-30-2023 SHUKRI Telephone (JULIAN) VIOLET HERNANDEZ ([id number]) 1985 F Date Time Provider Department 06/30/23 SHERLY NG During your visit today, we recorded the following information about you: Jenny Bull RN 06/30/2023 9:57 AM Signed Patient calling because she saw u/s results on mychart. Asking what she needs to do next. Jenny Bull RN Sherly Ng APRN.CNP 06/30/2023 1:09 PM Signed I will discuss with one of the physicians before discussing with her so it may be a few days before I get back with her. Sherly Ng APRN.Sherly Rivera APRN.CNP 07/02/2023 12:58 PM Signed Pt called with US results of 7.4 cm uterine fibroid. Informed that Dr Monroe reviewed US and that she will most likely need a hysterectomy but will need to schedule an appointment with Dr Monroe for an examination before that decision is made. She will schedule appt. Sherly Ng APRN.CNP Allergies As of Date: 06/30/2023 (No Known Allergies) Date Reviewed: 05/19/2023 Reviewed by: Sherly Ng APRN.CNP - Fully Assessed Reason for Visit: Results [95] Appointment [186] Prescriptions as of 07/02/2023 - CRANBERRY ORAL Take 2 capsules by mouth once daily. 2 gummies daily - Drospirenone-Ethinyl Estradiol (KOKI, 28,) 3-0.03 mg per tablet Take 1 tablet by mouth once daily. FOR CONTINUOUS USE - Take only hormone pills, skipping placebo pills. - fluvoxaMINE Maleate (LUVOX) 25 mg tablet Take 100 mg by mouth once daily. - buPROPion XL (WELLBUTRIN XL) 150 mg 24 hr tablet Take 300 mg by mouth once daily. - ARIPiprazole (ABILIFY) 5 mg tablet Take by mouth. - Vitamin E, dl, acetate, (VITAMIN E) 400 unit capsule Take 400 Units by mouth once daily. - cyanocobalamin (VITAMIN B-12) 500 mcg tablet Take by mouth once daily. - multivit with min-folic acid (ONE-A-DAY WOMEN VITACRAVES) 200 mcg chew One-A-Day Women VitaCraves 200 mcg chewable tablet chew 1 tablet by oral route daily - cmhmhtr-wpmraukid-rsalr in D3 500 mg(1,250mg) -200 unit per tablet Calcium 500 + D 500 mg (1,250 mg)-200 unit tablet take 1 tablet by oral route 2 times a day Problem List As Of Date 06/30/2023 Noted Resolved Obesity, Class I, BMI 30-34.9 [E66.9] 05/19/2023 Encounter Status:Closed by SHERLY NG on 07/02/23 Normal [facility] US FEMALE PELVIS TRANSVAGon 06-26-2023 US FEMALE PELVIS TRANSVAG * * *Final Report* * * DATE OF EXAM: Jun 26 2023 3:34PM WRU 1060 - US FEMALE PELVIS TRANSVAG / PROCEDURE REASON: multiple diagnoses * * * * Physician Interpretation * * * * EXAMINATION: TRANSVAGINAL AND LIMITED TRANSABDOMINAL FEMALE PELVIC ULTRASOUND CLINICAL HISTORY: 37 years old Female with Breakthrough bleeding on control pills. Uterine leiomyoma, unspecified location. LMP 05/27/2023 TECHNIQUE: Sonography of the pelvis was performed by transvaginal and transabdominal (limited) techniques. Images were obtained and stored in a permanent archive. MQ: [facility]_2021 COMPARISON: Pelvic ultrasound 02/23/2020 RESULT: Uterus: -Size: 6.5 x 3.0 x 5.0 cm -Orientation: Anteverted -Endometrial echo complex: Evaluation of the endometrium was adequate. No endometrial abnormality. The endometrial echo complex measured 0.8 cm. -Cervix: Unremarkable. -Adenomyosis assessment: There are no sonographic findings of adenomyosis. -Fibroids: Fibroid # 1 -Size: Anterior fundus cm -Location: 7.0 x 6.5 x 7.4 -Type: Hybrid -Imaging features: Typical imaging features -Differential: None Right Ovary: Not identified. Left Ovary: Not identified. Free Fluid: No abnormal free fluid is present. IMPRESSION: Ovaries not visualized. 7.4 cm fibroid. Range Manager: PSCB Transcribe Date/Time: Jun 27 2023 11:40P Dictated by : SARKIS TREVIÑO DO This examination was interpreted and the report reviewed and electronically signed by: SARKIS TREVIÑO DO on Jun 27 2023 11:45PM EST [id number] Normal [facility] Basophil percentageOrdered B y: Emily Sanders on 05-29-2023 Cholesterol [Mass/Vol] 219 mg/dL <200 [facility] Comment on above: <200 mg/dL Desirable 200-240 mg/dL Borderline >240 mg/dL High Risk Triglyceride [Mass/Vol] 148 mg/dL <199 [facility] Comment on above: The drugs N-Acetylcy steine and Metamizole may falsely depress this assay.Serum Triglycerides Reference Interval Normal <150 mg/dL Borderline high 150 - 199 mg/dL High 200 - 499 mg/dL Very High > or = 500 mg/dL Laboratory - Chemistry and C hemistry - challengeOrdered By: Emily Sanders on 05-29-2023 Cholesterol in HDL [Mass/Vol] 86 mg/dL >40 [facility] Comment on above: The drugs N-Acetylcy steine and Metamizole may falsely depress this assay. Reference Range HDL <40 mg/dL Low HDL Cholesterol HDL >or= 60 mg/dL High HDL Cholesterol Cholesterol in LDL [Mass/Vol] 103 mg/dL 0-130 [facility] No Panel InformationOrdered By: Emily Sanders on 05-29-2023 Vitamin D 25-Hydroxy 50.6 ng/mL [facility] Comment on above: Vitamin D 25(OH) Sta tus Range Deficiency <20 ng/mL (50nmol/L) Insufficiency 20 - 30 ng/mL (50 - 75 nmol/L) Sufficiency 30 - 100 ng/mL (75 - 250 nmol/L) Toxicity >100 ng/mL (>250 nmol/L) VLDL Cholesterol 30 mg/dL 5-40 [facility] Serum or plasma thyroid stim ulating hormone (TSH) measurement (units/volume)Ordered By: Emily Sanders on 05-29-2023 TSH Qn 2.50 uIU/mL 0.358-3.74 [facility] Thin prep Papanicolaou smear with manual screeningOrdered By: Emily Sanders on 05-29-2023 Thin prep Papanicolaou smear with manual screening 0.81 ng/dL 0.76-1.46 [facility] Whole blood hemoglobin A1c/t otal hemoglobin ratio (mass fraction)Ordered By: Eimly Sanders on 05-29-2023 HbA1c (Bld) [Mass fraction] 5.2 % 3.8-5.6 [facility] Comment on above: Normal < 5.7 % Predi abetic 5.7 - 6.4 % Diabetic >or= 6.5 % Please note range changes. Basophil percentageOrdered B y: Gene Braun on 04-29-2023 Basophil percentage 5-10 SEEN /hpf 0-5 [facility] Bilirubin Test strip Ql (U)O rdered By: Gene Braun on 04-29-2023 Bilirubin Ql (U) Negative Negative [facility] Culture, urineOrdered By: Erin Braun on 04-29-2023 Bacteria identified Cx Nom (U) Culture exhibits no growth. [facility] Epithelial cells.squamous LM Ql (Urine sed)Ordered By: Gene Braun on 04-29-2023 Epithelial cells.squamous LM.HPF (Urine sed) [#/Area] 5 /[HPF] 5-10 [facility] Glucose Ql (U)Ordered By: Erin Braun on 04-29-2023 Urine Glucose (UA) Normal mg/dl Normal [facility] Ketones Test strip Ql (U)Ord ered By: Gene Braun on 04-29-2023 Ketones Ql (U) Negative Negative [facility] Microscopic analysis of urin e for red blood cells (RBC)Ordered By: Gene Braun on 04-29-2023 Microscopic analysis of urine for red blood cells (RBC) 0-5 SEEN /hpf 0-5 [facility] Urine RBC 0-5 SEEN /hpf 0-5 [facility] Mucus LM Ql (Urine sed)Order ed By: Gene Braun on 04-29-2023 Mucus Ql (Urine sed) 1+ /hpf [facility] Nitrite Test strip Ql (U)Ord ered By: Gene Braun on 04-29-2023 Nitrite Ql (U) Negative Negative [facility] Protein Test strip Ql (U)Ord ered By: Gene Braun on 04-29-2023 Protein Ql (U) 15 mg/dl High Negative [facility] Squamous epithelial cells de tection in urine sediment by light microscopyOrdered By: Gene Braun on 04-29-2023 Epithelial cells.squamous LM Ql (Urine sed) 5-10 SEEN /hpf 5-10 [facility] Urine blood detectionOrdered By: Gene Braun on 04-29-2023 RBC Ql (U) 50 /ul Negative [facility] Urine Occult Blood 50 /ul High Negative [facility] Urine clarityOrdered By: Pop Braun on 04-29-2023 Clarity (U) Clear Clear [facility] Urine color determinationOrd ered By: eGne Braun on 04-29-2023 Color (U) Yellow Yellow [facility] Urine glucose detectionOrder ed By: Gene Braun on 04-29-2023 Glucose Ql (U) Normal mg/dl Normal [facility] Urine leukocyte esterase det ection by dipstickOrdered By: Gene Braun on 04-29-2023 Leukocyte esterase Test strip Ql (U) 100 /ul High Negative [facility] Urine pHOrdered By: Gene bey on 04-29-2023 pH (U) 6.0 [pH] 5.0 - 8.0 [facility] Urine sediment bacteria coun t by microscopy (number/high power field)Ordered By: Gene Braun on 04-29-2023 Bacteria LM.HPF (Urine sed) [#/Area] 1 /[HPF] None Seen [facility] Urine specific gravity measu rementOrdered By: Gene Braun on 04-29-2023 Specific gravity (U) [Rel density] 1.020 1.002-1.030 [facility] Urine urobilinogen measureme ntOrdered By: Gene Braun on 04-29-2023 Urobilinogen Ql (U) Normal mg/dl Normal [facility] Urobilinogen Ql (U)Ordered B y: Gene Braun on 04-29-2023 Urine Urobilinogen Normal mg/dl Normal [facility] White blood cell countOrdere d By: Gene Braun on 04-29-2023 Urine WBC 5-10 SEEN /hpf 0-5 [facility] Absolute lymphocyte countOrd ered By: Gene Braun on 04-28-2023 Lymphocytes Auto (Unsp spec) [#/Vol] 0.67 10*3/uL 0.83-4.51 [facility] Automated lymphocyte count a s percentage of total leukocytesOrdered By: Gene Braun on 04-28-2023 Lymphocytes/100 WBC Auto (Unsp spec) 24.5 % 19-41 [facility] Basophil percentageOrdered B y: Gene Braun on 04-28-2023 Basophils/100 WBC (Bld) 0.7 % 0-1 [facility] Bilirubin [Mass/Vol] 0.20 mg/dL 0.20-1.00 [facility] Comment on above: For patients on eltr ombopag therapy, use of Dimension [place] TBIL is not recommended. Chloride [Moles/Vol] 105 mmol/L 98-107 [facility] Eosinophils/100 WBC (Bld) 3.3 % 0-5 [facility] Glucose [Mass/Vol] 132 mg/dL 74-106 [facility] Comment on above: Fasting Glucose resu lt greater than or equal to 126 mg/dL suggests DIABETES MELLITUS per A.D.A. criteria. Hemoglobin (Bld) [Mass/Vol] 12.4 g/dL 12.0-15.0 [facility] LDH [Catalytic activity/Vol] 232 U/L 84-246 [facility] Monocytes/100 WBC (Bld) 18.3 % 0-10 [facility] Neutrophils (Bld) [#/Vol] 1.4 10*3/uL 2.0-7.7 [facility] Neutrophils/100 WBC (Bld) 52.8 % 47-70 [facility] Potassium [Moles/Vol] 3.8 mmol/L 3.5-5.1 [facility] Protein [Mass/Vol] 7.2 g/dL 6.4-8.2 [facility] Sodium [Moles/Vol] 140 mmol/L 136-145 [facility] WBC (Bld) [#/Vol] 2.7 10*3/uL 4.4-11.0 [facility] Determination of erythrocyte mean corpuscular volume (MCV)Ordered By: Gene Braun on 04-28-2023 MCV (RBC) [Entitic vol] 109.6 fL 81-99 [facility] Erythrocyte distribution wid th ratioOrdered By: Gene Braun on 04-28-2023 Erythrocyte distribution width (RBC) [Ratio] 14.0 % 11.6-14.6 [facility] Erythrocyte distribution wid th standard deviationOrdered By: Gene Braun on 04-28-2023 Erythrocyte distribution width (RBC) [Entitic vol] 56.5 fL 35.1-43.9 [facility] Ferritin measurementOrdered By: Gene Braun on 04-28-2023 Ferritin [Mass/Vol] 208 ng/mL 8-252 [facility] Hematocrit Auto (Bld) [Volum e fraction]Ordered By: Gene Braun on 04-28-2023 Hematocrit (Bld) [Volume fraction] 37.6 % 37-47 [facility] Hemoglobin in reticulocytes (mass per reticulocyte)Ordered By: Gene Braun on 04-28-2023 Hemoglobin (Reticulocytes) [Entitic mass] 39.3 pg 30-35 [facility] Immature granulocytes/100 WB C Auto (Bld)Ordered By: Gene Braun on 04-28-2023 Immature granulocytes/100 WBC (Bld) 0.400 % 0.0-0.9 [facility] Comment on above: IG% - Immature Granu locytes (promyelocytes, myelocytes and metamyelocytes) > 1% indicates that a LEFT SHIFT is Present. Iron (Unsp spec) [Mass/Mass] Ordered By: Gene Braun on 04-28-2023 Iron [Mass/Vol] 142 ug/dL 50-170 [facility] Iron measurement (mass/mass) Ordered By: Gene Kade on 04-28-2023 Iron (Unsp spec) [Mass/Mass] 142 ug/dL 50-170 [facility] Iron saturation [Mass fracti on]Ordered By: Gene Braun on 04-28-2023 Iron Saturation 36.9 % 15.0-55.0 [facility] Laboratory - Chemistry and C hemistry - challengeOrdered By: Gene Braun on 04-28-2023 Albumin/Globulin [Mass ratio] 1.0 {ratio} 0.9-2.4 [facility] ALP [Catalytic activity/Vol] 71 U/L 45-117 [facility] ALT [Catalytic activity/Vol] 73 U/L 13-56 [facility] CO2 [Moles/Vol] 28.0 mmol/L 21.0-32.0 [facility] Globulin (S) [Mass/Vol] 3.6 g/dL 2.2-4.2 [facility] Urea nitrogen/Creatinine [Mass ratio] 15.1 mg/mg 10-20 [facility] Laboratory - Hematology and Cell countsOrdered By: Gene Braun on 04-28-2023 MCH (RBC) [Entitic mass] 36.2 pg 27.0-32.0 [facility] MCHC (RBC) [Mass/Vol] 33.0 g/dL 32-36 [facility] Nucleated RBC/100 WBC (Bld) [Ratio] 0 % 0-5 [facility] Platelet mean volume (Bld) [Entitic vol] 10.2 fL 6.2-12.0 [facility] Platelets (Bld) [#/Vol] 130 10*3/uL 150-450 [facility] No Panel InformationOrdered By: Gene Braun on 04-28-2023 Estimated Creatinine Clearance Calc 66.36 ml/min [facility] Estimated GFR (MDRD) Amer 87 mL/min >60 [facility] Comment on above: GFR Calc Estimated GFR (MDRD) Non-Af Amer 72 mL/min >60 [facility] Comment on above: Non- GFR Calc Immature Reticulocyte Fraction 27.60 % 3.00-15.90 [facility] RBC Auto (Bld) [#/Vol]Ordere d By: Gene Braun on 04-28-2023 RBC (Bld) [#/Vol] 3.43 10*6/uL 4.2-5.4 [facility] Reticulocytes Auto (Bld) [#/ Vol]Ordered By: Gene Braun on 04-28-2023 Reticulocytes/100 RBC (Bld) 2.20 % 0.5-1.5 [facility] Serum or plasma calcium ana maria urement (mass/volume)Ordered By: Gene Braun on 04-28-2023 Calcium [Mass/Vol] 8.8 mg/dL 8.5-10.1 [facility] Serum or plasma creatinine m easurement (mass/volume)Ordered By: Gene Braun on 04-28-2023 Creatinine [Mass/Vol] 0.93 mg/dL 0.55-1.02 [facility] Comment on above: The validity of the calculated GFR & GFRAA in patients over 70 years has not been determined. Clinical correlation is essential. Serum or plasma iron saturat ion measurement (mass fraction)Ordered By: Gene Braun on 04-28-2023 Iron saturation [Mass fraction] 36.9 % 15.0-55.0 [facility] Serum or plasma urea nitroge n measurement (mass/volume)Ordered By: Gene Braun on 04-28-2023 Urea nitrogen [Mass/Vol] 14 mg/dL 7-18 [facility] TIBCOrdered By: Gene Braun on 04-28-2023 Total Iron Binding Capacity 385 ug/dL 250-450 [facility] Thin prep Papanicolaou smear with manual screeningOrdered By: Gene Braun on 04-28-2023 Thin prep Papanicolaou smear with manual screening 3.6 g/dL 3.2-5.0 [facility] Thin prep Papanicolaou smear with manual screening 36 U/L 15-37 [facility] Thin prep Papanicolaou smear with manual screening 7 5-15 [facility] Urine cultureOrdered By: Pop Braun on 04-28-2023 Bacteria identified Cx Nom (U) Culture exhibits no growth. [facility] Basophil percentageOrdered B y: Emily Sanders on 02-10-2023 Basophil percentage 0 SEEN /hpf 0-5 [facility] Bilirubin Test strip Ql (U)O rdered By: Emily Sanders on 02-10-2023 Bilirubin Ql (U) Negative Negative [facility] Culture, urineOrdered By: Eudardo Sanders on 02-10-2023 Bacteria identified Cx Nom (U) Enterococcus faecalis [facility] Bacteria identified Cx Nom (U) Enterococcus faecalis [facility] Ketones Test strip Ql (U)Ord ered By: Emily Sanders on 02-10-2023 Ketones Ql (U) 5 mg/dl Negative [facility] Mucus LM Ql (Urine sed)Order ed By: Emily Sanders on 02-10-2023 Mucus Ql (Urine sed) 0 SEEN /hpf [facility] Nitrite Test strip Ql (U)Ord ered By: Rocioongjaron Sanders on 02-10-2023 Nitrite Ql (U) Negative Negative [facility] Protein Test strip Ql (U)Ord ered By: Emily Sanders on 02-10-2023 Protein Ql (U) Negative Negative [facility] Squamous epithelial cells de tection in urine sediment by light microscopyOrdered By: Emily Sanders on 02-10-2023 Epithelial cells.squamous LM Ql (Urine sed) 5-10 SEEN /hpf 5-10 [facility] Urine blood detectionOrdered By: Emily Sanders on 02-10-2023 RBC Ql (U) 250 /ul Negative [facility] RBC Ql (U) 10-25 SEEN /hpf 0-5 [facility] Urine clarityOrdered By: Kaleb Sanders on 02-10-2023 Clarity (U) Sl. Cloudy Clear [facility] Urine color determinationOrd ered By: Emily Sanders on 02-10-2023 Color (U) Yellow Yellow [facility] Urine glucose detectionOrder ed By: Emily Sanders on 02-10-2023 Glucose Ql (U) Normal mg/dl Normal [facility] Urine leukocyte esterase det ection by dipstickOrdered By: Emily Sanders on 02-10-2023 Leukocyte esterase Test strip Ql (U) 25 /ul Negative [facility] Urine pHOrdered By: Miguel Sanders on 02-10-2023 pH (U) 5.0 [pH] 5.0 - 8.0 [facility] Urine sediment bacteria coun t by microscopy (number/high power field)Ordered By: Emily Sanders on 02-10-2023 Bacteria LM.HPF (Urine sed) [#/Area] 0 /[HPF] None Seen [facility] Urine specific gravity measu rementOrdered By: Emily Sanders on 02-10-2023 Specific gravity (U) [Rel density] 1.025 1.002-1.030 [facility] Urobilinogen Auto test strip Ql (U)Ordered By: Emily Sanders on 02-10-2023 Urobilinogen Ql (U) Normal mg/dl Normal [facility] Absolute lymphocyte countOrd ered By: ED PROVIDER on 02-01-2023 Lymphocytes Auto (Unsp spec) [#/Vol] 0.90 10*3/uL 0.83-4.51 [facility] Basophil percentageOrdered B y: ED PROVIDER on 02-01-2023 Basophils/100 WBC (Bld) 0.6 % 0-1 [facility] Eosinophils/100 WBC (Bld) 4.1 % 0-5 [facility] Neutrophils (Bld) [#/Vol] 1.6 10*3/uL 2.0-7.7 [facility] Neutrophils/100 WBC (Bld) 49.2 % 47-70 [facility] WBC (Bld) [#/Vol] 3.2 10*3/uL 4.4-11.0 [facility] Basophil percentage 50-100 SEEN /hpf 0-5 [facility] Basophil percentageOrdered B y: Umang Matos on 02-01-2023 Bilirubin [Mass/Vol] 0.20 mg/dL 0.20-1.00 [facility] Comment on above: For patients on eltr ombopag therapy, use of [place] TBIL is not recommended. Chloride [Moles/Vol] 108 mmol/L 98-107 [facility] Glucose [Mass/Vol] 124 mg/dL 74-106 [facility] Comment on above: Fasting Glucose resu lt from 100 to 125 mg/dL suggests IMPAIRED HOMEOSTASIS per A.D.A. criteria. Potassium [Moles/Vol] 3.8 mmol/L 3.5-5.1 [facility] Protein [Mass/Vol] 6.6 g/dL 6.4-8.2 [facility] Sodium [Moles/Vol] 140 mmol/L 136-145 [facility] Beta hCG serum qualOrdered B y: Umang Matos on 02-01-2023 Beta HCG ( test) Ql Negative [facility] Bilirubin Test strip Ql (U)O rdered By: ED PROVIDER on 02-01-2023 Bilirubin Ql (U) Negative Negative [facility] Blood erythrocytes count (nu mber/volume)Ordered By: ED PROVIDER on 02-01-2023 RBC (Bld) [#/Vol] 3.18 10*6/uL 4.2-5.4 [facility] Blood hemoglobin measurement (mass/volume)Ordered By: ED PROVIDER on 02-01-2023 Hemoglobin (Bld) [Mass/Vol] 11.5 g/dL 12.0-15.0 [facility] Blood lymphocytes/100 leukoc ytesOrdered By: ED PROVIDER on 02-01-2023 Lymphocytes/100 WBC (Bld) 28.4 % 19-41 [facility] Blood monocytes/100 leukocyt esOrdered By: ED PROVIDER on 02-01-2023 Monocytes/100 WBC (Bld) 17.4 % 0-10 [facility] Blood platelet mean volumeOr dered By: ED PROVIDER on 02-01-2023 Platelet mean volume (Bld) [Entitic vol] 10.6 fL 6.2-12.0 [facility] Culture, urineOrdered By: James Matos on 02-01-2023 Bacteria identified Cx Nom (U) Culture exhibits no growth. [facility] Determination of erythrocyte mean corpuscular volume (MCV)Ordered By: ED PROVIDER on 02-01-2023 MCV (RBC) [Entitic vol] 108.5 fL 81-99 [facility] Hematocrit Auto (Bld) [Volum e fraction]Ordered By: ED PROVIDER on 02-01-2023 Hematocrit (Bld) [Volume fraction] 34.5 % 37-47 [facility] Ketones Test strip Ql (U)Ord ered By: ED PROVIDER on 02-01-2023 Ketones Ql (U) 5 mg/dl Negative [facility] Laboratory - Chemistry and C hemistry - challengeOrdered By: Umang Matos on 02-01-2023 ALP [Catalytic activity/Vol] 66 U/L 45-117 [facility] ALT [Catalytic activity/Vol] 66 U/L 13-56 [facility] CO2 [Moles/Vol] 26.0 mmol/L 21.0-32.0 [facility] Globulin (S) [Mass/Vol] 3.2 g/dL 2.2-4.2 [facility] Lipase [Catalytic activity/Vol] 28 U/L 13-75 [facility] Comment on above: Please note:LIPASE r evised reference range effective 22. New Lipase methodology. Expected to produce lower values than the previous assay method. NEW Reference Range: 13 - 75 U/L Urea nitrogen/Creatinine [Mass ratio] 15.0 mg/mg 10-20 [facility] Laboratory - Hematology and Cell countsOrdered By: ED PROVIDER on 02-01-2023 Erythrocyte distribution width (RBC) [Entitic vol] 55.8 fL 35.1-43.9 [facility] Erythrocyte distribution width (RBC) [Ratio] 14.0 % 11.6-14.6 [facility] Immature granulocytes/100 WBC (Bld) 0.300 % 0.0-0.9 [facility] Comment on above: IG% - Immature Granu locytes (promyelocytes, myelocytes and metamyelocytes) > 1% indicates that a LEFT SHIFT is Present. MCH (RBC) [Entitic mass] 36.2 pg 27.0-32.0 [facility] Nucleated RBC/100 WBC (Bld) [Ratio] 0 % 0-5 [facility] MCHC Auto (RBC) [Mass/Vol]Or dered By: ED PROVIDER on 02-01-2023 MCHC (RBC) [Mass/Vol] 33.3 g/dL 32-36 [facility] Mucus LM Ql (Urine sed)Order ed By: ED PROVIDER on 02-01-2023 Mucus Ql (Urine sed) 0 SEEN /hpf [facility] Nitrite Test strip Ql (U)Ord ered By: ED PROVIDER on 02-01-2023 Nitrite Ql (U) Negative Negative [facility] No Panel InformationOrdered By: Umang Matos on 02-01-2023 Estimated Creatinine Clearance Calc 82.00 ml/min [facility] Estimated GFR (MDRD) Amer 80 mL/min >60 [facility] Comment on above: GFR Calc Estimated GFR (MDRD) Non-Af Amer 66 mL/min >60 [facility] Comment on above: Non- GFR Calc Platelets bldOrdered By: ED PROVIDER on 02-01-2023 Platelets (Bld) [#/Vol] 128 10*3/uL 150-450 [facility] Protein Test strip Ql (U)Ord ered By: ED PROVIDER on 02-01-2023 Protein Ql (U) 30 mg/dl Negative [facility] Serum or plasma albumin ana maria urement (mass/volume)Ordered By: Umang Matos on 02-01-2023 Albumin [Mass/Vol] 3.4 g/dL 3.2-5.0 [facility] Serum or plasma albumin/glob ulin mass ratioOrdered By: Umang Matos on 02-01-2023 Albumin/Globulin [Mass ratio] 1.1 {ratio} 0.9-2.4 [facility] Serum or plasma calcium ana maria urement (mass/volume)Ordered By: Umang Matos on 02-01-2023 Calcium [Mass/Vol] 9.1 mg/dL 8.5-10.1 [facility] Serum or plasma creatinine m easurement (mass/volume)Ordered By: Umang Matos on 02-01-2023 Creatinine [Mass/Vol] 1.00 mg/dL 0.55-1.02 [facility] Comment on above: The validity of the calculated GFR & GFRAA in patients over 70 years has not been determined. Clinical correlation is essential. Serum or plasma urea nitroge n measurement (mass/volume)Ordered By: Umang Matos on 02-01-2023 Urea nitrogen [Mass/Vol] 15 mg/dL 7-18 [facility] Squamous epithelial cells de tection in urine sediment by light microscopyOrdered By: ED PROVIDER on 02-01-2023 Epithelial cells.squamous LM Ql (Urine sed) 0-5 SEEN /hpf 5-10 [facility] Thin prep Papanicolaou smear with manual screeningOrdered By: Umang Matos on 02-01-2023 Thin prep Papanicolaou smear with manual screening 30 U/L 15-37 [facility] Thin prep Papanicolaou smear with manual screening 6 5-15 [facility] Urine blood detectionOrdered By: ED PROVIDER on 02-01-2023 RBC Ql (U) 250 /ul Negative [facility] RBC Ql (U) 0-5 SEEN /hpf 0-5 [facility] Urine clarityOrdered By: ED PROVIDER on 02-01-2023 Clarity (U) Cloudy Clear [facility] Urine color determinationOrd ered By: ED PROVIDER on 02-01-2023 Color (U) Yellow Yellow [facility] Urine glucose detectionOrder ed By: ED PROVIDER on 02-01-2023 Glucose Ql (U) Normal mg/dl Normal [facility] Urine leukocyte esterase det ection by dipstickOrdered By: ED PROVIDER on 02-01-2023 Leukocyte esterase Test strip Ql (U) 500 /ul Negative [facility] Urine pHOrdered By: ED PROVI LINDA on 02-01-2023 pH (U) 6.5 [pH] 5.0 - 8.0 [facility] Urine sediment bacteria coun t by microscopy (number/high power field)Ordered By: ED PROVIDER on 02-01-2023 Bacteria LM.HPF (Urine sed) [#/Area] 1 /[HPF] None Seen [facility] Urine specific gravity measu rementOrdered By: ED PROVIDER on 02-01-2023 Specific gravity (U) [Rel density] 1.015 1.002-1.030 [facility] Urobilinogen Auto test strip Ql (U)Ordered By: ED PROVIDER on 02-01-2023 Urobilinogen Ql (U) 1 mg/dl Normal [facility] Basophil percentageOrdered B y: Miki Lui on 12-17-2022 Basophil percentage 5-10 SEEN /hpf 0-5 [facility] Bilirubin Test strip Ql (U)O rdered By: Miki Lui on 12-17-2022 Bilirubin Ql (U) Negative Negative [facility] Culture, urineOrdered By: Ruba Lui on 12-17-2022 Bacteria identified Cx Nom (U) Culture exhibits no growth. [facility] Ketones Test strip Ql (U)Ord ered By: Miki Lui on 12-17-2022 Ketones Ql (U) 5 mg/dl Negative [facility] Mucus LM Ql (Urine sed)Order ed By: Miki Lui on 12-17-2022 Mucus Ql (Urine sed) 0 SEEN /hpf [facility] Nitrite Test strip Ql (U)Ord ered By: Miki Lui on 12-17-2022 Nitrite Ql (U) Negative Negative [facility] Protein Test strip Ql (U)Ord ered By: Miki Lui on 12-17-2022 Protein Ql (U) 15 mg/dl Negative [facility] Squamous epithelial cells de tection in urine sediment by light microscopyOrdered By: Miki Lui on 12-17-2022 Epithelial cells.squamous LM Ql (Urine sed) 0-5 SEEN /hpf 5-10 [facility] Urine blood detectionOrdered By: Miki Lui on 12-17-2022 RBC Ql (U) 250 /ul Negative [facility] RBC Ql (U) 0 SEEN /hpf 0-5 [facility] Urine clarityOrdered By: Keshav Lui on 12-17-2022 Clarity (U) Clear Clear [facility] Urine color determinationOrd ered By: Miki Lui on 12-17-2022 Color (U) Yellow Yellow [facility] Urine glucose detectionOrder ed By: Miki Lui on 12-17-2022 Glucose Ql (U) 50 mg/dl Normal [facility] Urine leukocyte esterase det ection by dipstickOrdered By: Miki Lui on 12-17-2022 Leukocyte esterase Test strip Ql (U) 500 /ul Negative [facility] Urine pHOrdered By: Miki hudson on 12-17-2022 pH (U) 6.0 [pH] 5.0 - 8.0 [facility] Urine sediment bacteria coun t by microscopy (number/high power field)Ordered By: Miki Lui on 12-17-2022 Bacteria LM.HPF (Urine sed) [#/Area] RARE /hpf None Seen [facility] Urine specific gravity measu rementOrdered By: Miki Lui on 12-17-2022 Specific gravity (U) [Rel density] 1.020 1.002-1.030 [facility] Urobilinogen Auto test strip Ql (U)Ordered By: Miki Lui on 12-17-2022 Urobilinogen Ql (U) Normal mg/dl Normal [facility] MRI CERVICAL SPINE WO IVCONo n 10-18-2021 [facility] Absolute lymphocyte counton 07-01-2021 Lymphocytes Auto (Unsp spec) [#/Vol] 0.42 10*3/uL 0.83-4.51 [facility] Work Phone: Basophil percentageon 2021 Basophils/100 WBC (Bld) 0.4 % 0-1 [facility] Work Phone: Bilirubin [Mass/Vol] 0.30 mg/dL 0.20-1.00 [facility] Work Phone: Comment on above: For patients on eltr ombopag therapy, use of Dimension [place] TBIL is not recommended. Chloride [Moles/Vol] 107 mmol/L 98-107 [facility] Work Phone: Eosinophils/100 WBC (Bld) 3.9 % 0-5 [facility] Work Phone: Glucose [Mass/Vol] 186 mg/dL 74-106 [facility] Work Phone: Comment on above: Fasting Glucose resu lt greater than or equal to 126 mg/dL suggests DIABETES MELLITUS per A.D.A. criteria. Neutrophils (Bld) [#/Vol] 1.5 10*3/uL 2.0-7.7 [facility] Work Phone: Neutrophils/100 WBC (Bld) 63.9 % 47-70 [facility] Work Phone: Potassium [Moles/Vol] 4.0 mmol/L 3.5-5.1 [facility] Work Phone: Comment on above: Slight Hemolysis, Re sult may be falsely increased. Protein [Mass/Vol] 7.0 g/dL 6.4-8.2 [facility] Work Phone: Sodium [Moles/Vol] 139 mmol/L 136-145 [facility] Work Phone: WBC (Bld) [#/Vol] 2.3 10*3/uL 4.4-11.0 [facility] Work Phone: Blood erythrocytes count (nu mber/volume)on 07-01-2021 RBC (Bld) [#/Vol] 3.27 10*6/uL 4.2-5.4 [facility] Work Phone: Blood hemoglobin measurement (mass/volume)on 07-01-2021 Hemoglobin (Bld) [Mass/Vol] 11.8 g/dL 12.0-15.0 [facility] Work Phone: Blood lymphocytes/100 leukoc yteson 07-01-2021 Lymphocytes/100 WBC (Bld) 18.3 % 19-41 [facility] Work Phone: Blood manual differential co mment interpretation (narrative result)on 07-01-2021 Manual differential comment Robin (Bld) [Interp] SCANNED [facility] Work Phone: [phone] Comment on above: LYMPHOPENIA NOTED Blood monocytes/100 leukocyt eson 07-01-2021 Monocytes/100 WBC (Bld) 13.5 % 0-10 [facility] Work Phone: Blood platelet mean volumeon 07-01-2021 Platelet mean volume (Bld) [Entitic vol] 11.2 fL 6.2-12.0 [facility] Work Phone: Determination of erythrocyte mean corpuscular volume (MCV)on 07-01-2021 MCV (RBC) [Entitic vol] 106.1 fL 81-99 [facility] Work Phone: Hematocrit Auto (Bld) [Volum e fraction]on 07-01-2021 Hematocrit (Bld) [Volume fraction] 34.7 % 37-47 [facility] Work Phone: Laboratory - Chemistry and C hemistry - challengeon 07-01-2021 ALP [Catalytic activity/Vol] 78 U/L 45-117 [facility] Work Phone: ALT [Catalytic activity/Vol] 91 U/L 13-56 [facility] Work Phone: CO2 [Moles/Vol] 22.0 mmol/L 21.0-32.0 [facility] Work Phone: Free T4 [Mass/Vol] 0.75 ng/dL 0.76-1.46 [facility] Work Phone: Globulin (S) [Mass/Vol] 3.5 g/dL 2.2-4.2 [facility] Work Phone: Urea nitrogen/Creatinine [Mass ratio] 15.1 mg/mg 10-20 [facility] Work Phone: Laboratory - Hematology and Cell countson 07-01-2021 Erythrocyte distribution width (RBC) [Entitic vol] 54.9 fL 35.1-43.9 [facility] Work Phone: Erythrocyte distribution width (RBC) [Ratio] 13.9 % 11.6-14.6 [facility] Work Phone: Immature granulocytes/100 WBC (Bld) 0.000 % 0.0-0.9 [facility] Work Phone: Comment on above: IG% - Immature Granu locytes (promyelocytes, myelocytes and metamyelocytes) > 1% indicates that a LEFT SHIFT is Present. MCH (RBC) [Entitic mass] 36.1 pg 27.0-32.0 [facility] Work Phone: Nucleated RBC/100 WBC (Bld) [Ratio] 0 % 0-5 [facility] Work Phone: MCHC Auto (RBC) [Mass/Vol]on 07-01-2021 MCHC (RBC) [Mass/Vol] 34.0 g/dL 32-36 [facility] Work Phone: No Panel Informationon 07-01 Estimated GFR (MDRD) Amer 75 mL/min >60 [facility] Work Phone: Comment on above: GFR Calc Estimated GFR (MDRD) Non-Af Amer 62 mL/min >60 [facility] Work Phone: Comment on above: Non- GFR Calc Thyroid Stimulating Hormone (TSH) 2.02 uIU/mL 0.358-3.74 [facility] Work Phone: Vitamin D 25-Hydroxy 59.0 ng/mL [facility] Work Phone: Comment on above: Vitamin D 25(OH) Sta tus Range Deficiency <20 ng/mL (50nmol/L) Insufficiency 20 - 30 ng/mL (50 - 75 nmol/L) Sufficiency 30 - 100 ng/mL (75 - 250 nmol/L) Toxicity >100 ng/mL (>250 nmol/L) Platelets bldon 07-01-2021 Platelets (Bld) [#/Vol] 125 10*3/uL 150-450 [facility] Work Phone: Review by pathologiston 06-10 Pathologist review Robin (Unsp spec) [Interp] Reviewed [facility] Work Phone: Comment on above: Previous reported re sult: Yajaira falk Edited by: FABRICE on 07/02/21:1235Pancytopenia.Leukopenia and Neutropenia.Macrocytic anemia.Mild ThrombocytopeniaClinical correlation necessary.Jose Fernando M.D. 07/02/21 AMENDED REPORT 07/02/21 1235 PATH REV previously reported as: June Serum or plasma albumin ana maria urement (mass/volume)on 07-01-2021 Albumin [Mass/Vol] 3.5 g/dL 3.2-5.0 [facility] Work Phone: Serum or plasma albumin/glob ulin mass ratioon 07-01-2021 Albumin/Globulin [Mass ratio] 1.0 {ratio} 0.9-2.4 [facility] Work Phone: Serum or plasma calcium ana maria urement (mass/volume)on 07-01-2021 Calcium [Mass/Vol] 8.6 mg/dL 8.5-10.1 [facility] Work Phone: Serum or plasma creatinine m easurement (mass/volume)on 07-01-2021 Creatinine [Mass/Vol] 1.06 mg/dL 0.55-1.02 [facility] Work Phone: Comment on above: The validity of the calculated GFR & GFRAA in patients over 70 years has not been determined. Clinical correlation is essential. Serum or plasma thyroxine bi nding globulin (TBG) measurement (mass/volume)on 07-01-2021 TBG [Mass/Vol] 27 ug/mL [facility] Work Phone: Comment on above: Performed at: [address] [id number] Director: Montserrat Gibbons MD, Phone: [phone] Serum or plasma urea nitroge n measurement (mass/volume)on 07-01-2021 Urea nitrogen [Mass/Vol] 16 mg/dL 7-18 [facility] Work Phone: Thin prep Papanicolaou smear with manual screeningon 07-01-2021 Thin prep Papanicolaou smear with manual screening 49 U/L 15-37 [facility] Work Phone: Comment on above: Slight Hemolysis, Re sult may be falsely increased. Thin prep Papanicolaou smear with manual screening 10 5-15 [facility] Work Phone: Whole blood hemoglobin A1c/t otal hemoglobin ratio (mass fraction)on 07-01-2021 HbA1c (Bld) [Mass fraction] 5.1 % 3.8-5.6 [facility] Work Phone: Comment on above: Normal < 5.7 % Predi abetic 5.7 - 6.4 % Diabetic >or= 6.5 % Please note range changes. Absolute lymphocyte counton 04-17-2021 Lymphocytes Auto (Unsp spec) [#/Vol] 0.60 10*3/uL 0.83-4.51 [facility] Work Phone: Basophil percentageon 2021 Basophils/100 WBC (Bld) 0.4 % 0-1 [facility] Work Phone: Bilirubin [Mass/Vol] 0.30 mg/dL 0.20-1.00 [facility] Work Phone: Comment on above: For patients on eltr ombopag therapy, use of Dimension [place] TBIL is not recommended. Chloride [Moles/Vol] 105 mmol/L 98-107 [facility] Work Phone: Eosinophils/100 WBC (Bld) 1.6 % 0-5 [facility] Work Phone: Glucose [Mass/Vol] 85 mg/dL 74-106 [facility] Work Phone: Neutrophils (Bld) [#/Vol] 1.4 10*3/uL 2.0-7.7 [facility] Work Phone: Neutrophils/100 WBC (Bld) 57.6 % 47-70 [facility] Work Phone: Potassium [Moles/Vol] 4.1 mmol/L 3.5-5.1 [facility] Work Phone: [phone] Protein [Mass/Vol] 7.1 g/dL 6.4-8.2 [facility] Work Phone: Sodium [Moles/Vol] 137 mmol/L 136-145 [facility] Work Phone: WBC (Bld) [#/Vol] 2.5 10*3/uL 4.4-11.0 [facility] Work Phone: Blood erythrocytes count (nu mber/volume)on 04-17-2021 RBC (Bld) [#/Vol] 3.41 10*6/uL 4.2-5.4 [facility] Work Phone: Blood hemoglobin measurement (mass/volume)on 04-17-2021 Hemoglobin (Bld) [Mass/Vol] 12.7 g/dL 12.0-15.0 [facility] Work Phone: Blood lymphocytes/100 leukoc yteson 04-17-2021 Lymphocytes/100 WBC (Bld) 24.5 % 19-41 [facility] Work Phone: Blood monocytes/100 leukocyt eson 04-17-2021 Monocytes/100 WBC (Bld) 15.5 % 0-10 [facility] Work Phone: Blood platelet mean volumeon 04-17-2021 Platelet mean volume (Bld) [Entitic vol] 10.2 fL 6.2-12.0 [facility] Work Phone: Determination of erythrocyte mean corpuscular volume (MCV)on 04-17-2021 MCV (RBC) [Entitic vol] 107.9 fL 81-99 [facility] Work Phone: Hematocrit Auto (Bld) [Volum e fraction]on 04-17-2021 Hematocrit (Bld) [Volume fraction] 36.8 % 37-47 [facility] Work Phone: Laboratory - Chemistry and C hemistry - challengeon 04-17-2021 ALP [Catalytic activity/Vol] 67 U/L 45-117 [facility] Work Phone: ALT [Catalytic activity/Vol] 61 U/L 13-56 [facility] Work Phone: [phone] CO2 [Moles/Vol] 25.0 mmol/L 21.0-32.0 [facility] Work Phone: Globulin (S) [Mass/Vol] 3.3 g/dL 2.2-4.2 [facility] Work Phone: Urea nitrogen/Creatinine [Mass ratio] 16.0 mg/mg 10-20 [facility] Work Phone: Laboratory - Hematology and Cell countson 04-17-2021 Erythrocyte distribution width (RBC) [Entitic vol] 58.6 fL 35.1-43.9 [facility] Work Phone: Erythrocyte distribution width (RBC) [Ratio] 14.7 % 11.6-14.6 [facility] Work Phone: Immature granulocytes/100 WBC (Bld) 0.400 % 0.0-0.9 [facility] Work Phone: Comment on above: IG% - Immature Granu locytes (promyelocytes, myelocytes and metamyelocytes) > 1% indicates that a LEFT SHIFT is Present. MCH (RBC) [Entitic mass] 37.2 pg 27.0-32.0 [facility] Work Phone: Nucleated RBC/100 WBC (Bld) [Ratio] 0 % 0-5 [facility] Work Phone: MCHC Auto (RBC) [Mass/Vol]on 04-17-2021 MCHC (RBC) [Mass/Vol] 34.5 g/dL 32-36 [facility] Work Phone: No Panel Informationon 04-17 Estimated Creatinine Clearance Calc 83.54 ml/min [facility] Work Phone: Estimated GFR (MDRD) Amer 94 mL/min >60 [facility] Work Phone: Comment on above: GFR Calc Estimated GFR (MDRD) Non-Af Amer 78 mL/min >60 [facility] Work Phone: Comment on above: Non- GFR Calc Pathologist review Robin (Unsp spec) [Interp]on 04-17-2021 Differential Pathologist's Review Reviewed [facility] Comment on above: Previous reported re sult: Yajaira falk Edited by: RGOOD on 04/18/21:1247Leukopenia and neutropenia.Macrocytosis.Clinical correlation necessary.Jose Fernando M.D. 04/18/21 AMENDED REPORT 04/18/[id number] PATH REV previously reported as: Yajaira falk Platelets bldon 04-17-2021 Platelets (Bld) [#/Vol] 135 10*3/uL 150-450 [facility] Work Phone: Review by pathologiston Pathologist review Robin (Unsp spec) [Interp] Reviewed [facility] Comment on above: Previous reported re sult: Yajaira falk Edited by: RGOOD on 04/18/21:1247Leukopenia and neutropenia.Macrocytosis.Clinical correlation necessary.Jose Fernando M.D. 04/18/21 AMENDED REPORT 04/18/211246 PATH REV previously reported as: Yajaira falk Serum or plasma albumin ana maria urement (mass/volume)on 04-17-2021 Albumin [Mass/Vol] 3.8 g/dL 3.2-5.0 [facility] Work Phone: Serum or plasma albumin/glob ulin mass ratioon 04-17-2021 Albumin/Globulin [Mass ratio] 1.2 {ratio} 0.9-2.4 [facility] Work Phone: Serum or plasma calcium ana maria urement (mass/volume)on 04-17-2021 Calcium [Mass/Vol] 9.1 mg/dL 8.5-10.1 [facility] Work Phone: Serum or plasma creatinine m easurement (mass/volume)on 04-17-2021 Creatinine [Mass/Vol] 0.88 mg/dL 0.55-1.02 [facility] Work Phone: Comment on above: The validity of the calculated GFR & GFRAA in patients over 70 years has not been determined. Clinical correlation is essential. Serum or plasma urea nitroge n measurement (mass/volume)on 04-17-2021 Urea nitrogen [Mass/Vol] 14 mg/dL 7-18 [facility] Work Phone: Thin prep Papanicolaou smear with manual screeningon 04-17-2021 Thin prep Papanicolaou smear with manual screening 33 U/L 15-37 [facility] Work Phone: Thin prep Papanicolaou smear with manual screening 7 5-15 [facility] Work Phone: Thin prep Papanicolaou smear with manual screening 218 U/L 84-246 [facility] Work Phone: CT HEAD WO CONTRASTon 2020 CT HEAD WO CONTRAST Patient Name: VIOLET HERNANDEZ STUDY: CT of the head without contrast INDICATION: headache COMPARISON: None ACCESSION NUMBER(S): [id number] ORDERING CLINICIAN: JAMES CAMACHO TECHNIQUE: CT scan of the head was performed from the skull base to the vertex without intravenous contrast. Coronal and sagittal reformats were obtained. FINDINGS: CSF spaces: Unremarkable. Parenchyma: Unremarkable. Paranasal sinuses/mastoids/orbits : Unremarkable. Calvarium: Unremarkable. IMPRESSION: 1. No acute finding. Electronically signed by: NASIR SADLER MD [facility] Covid 19 Resultson 1 SARS-CoV-2 (COVID-19) RNA MALKA+probe Ql (Unsp spec) NEGATIVE COVID-19 Test Coronaviruses are common world-wide and are the cause of many common colds. SARS-COV2 is a new coronavirus that began circulating worldwide in 2019 so we are calling it COVID-19. It has been estimated that four out of five patients with COVID-19 will recover at home without the need for medical attention. Symptoms of COVID-19 may include cough, fever, shortness of breath, loss of taste or smell and other flu-like symptoms including chills, sore muscles, sore throat, and headache. Severe illness is more common in older people and people with other health problems such as high blood pressure, obesity, and immune system problems. If the test is positive, you have COVID-19. You will be contacted by the ordering physicians office and instructed to remain on home isolation, in accordance with CDC guidelines. You may also be contacted by the [facility] to see if any of your close contacts may have been exposed to the virus and need to quarantine. If the test is negative, you likely do not have COVID-19 at this time, but you still may have a different illness that can spread to other people (like Influenza, or the Flu) and could still be at risk for getting COVID-19. We recommend that you stay away from other people to limit the spread of illness until your symptoms are improving and you are fever-free for 24 hours without the use of fever lowering medications such as acetaminophen or ibuprofen. No test is 100% accurate so if you are still concerned you may have COVID-19, talk to your doctor about the need to continue to stay away from others. Medicines Unless your provider told you not to use the following: Acetaminophen (Tylenol and others) is generally safe. Anti-inflammatory medications, such as Ibuprofen (Advil or Motrin) or Naproxen (Aleve) can also be used. Owhy-hpe-qlymufa cough and cold medicines can be used according to the instructions on the package. Some cmgj-[id number] medicines also contain acetaminophen. Make sure you are not taking more than your recommended dose. For those not hospitalized, there is no specific treatment available for this illness. Antibiotics do not treat Coronaviruses. Follow-Up Follow up with your doctor by scheduling a virtual visit or consider follow-up at one of our urgent care fever clinics. If you are having difficulty breathing, or are very weak and having difficulty standing, this is a medical emergency. Call 911 or have someone take you to the nearest emergency room immediately. If possible, wear a facemask. Additional guidance from the CDC for patients who tested POSITIVE for COVID-19 How to isolate: Isolate yourself in a specific room at home and limit your contact with others. Use a separate bathroom from other members of the household, when possible. Leave home only to get essential medical care. Do not go to work, school or public areas. Avoid using public transportation, ride-sharing, or taxis. Restrict contact with pets and other animals. If you must care for your pet or be around animals while you are sick, wash your hands before and after your interaction and wear a facemask. Make sure that shared spaces in the home have good airflow, such as by an air conditioner or an opened window, weather permitting. Personal Hygiene Procedures: Wear a face mask when in the same room as other people or pets. If a face mask interferes with your breathing, others should wear a mask when sharing space with you. Frequent hand-washing: wash your hands with soap and water for at least 20 seconds. If soap and water are not available, use alcohol-based hand manager general. Avoid touching your eyes, nose, and mouth with unwashed hands. Household Hygiene Procedures: Avoid sharing personal household items such as dishes, glassware, cups, eating utensils, towels or bedding with other people or pets in your home. After use, these items should be washed with soap and hot water. Disinfect all high-touch surfaces every day with antibacterial cleaning solutions such as Lysol wipes, bleach, cleansers, etc. High-touch surfaces include tabletops, doorknobs, bathroom fixtures, toilets, phones, keyboards, tablets and bedside tables. Immediately clean any surfaces that may have blood, poop or body fluids on them, using antibacterial cleaning solutions such as Lysol wipes, bleach, cleansers, etc. If clothing or bedding come into contact with blood, poop or body fluids, they should be washed immediately. Follow the directions on the laundry detergent and clothing labels but hot water is recommended when possible. Stopping home isolation precautions: If possible, consult your doctor before stopping home isolation precautions. According to the CDC, you can discontinue home isolation precautions when you have met both of these criteria: Your fever and respiratory symptoms have been gone for 24 nicolas (more content not included)... Normal [facility] INFLUENZA A/B, COVID 2019 PC R,SYMPTOMATICon 01-19-2021 INFLUENZA A, PCR Not detected Normal Not Detected [facility] Comment on above: Result Comment: Resp iratory virus testing is performed routinely by PCR for Influenza A/B and RSV. Not Detected results do not preclude Influenza A/B or RSV infections since the adequacy of sample collection or low viral burden may impact the clinical sensitivity of this test method. Performed By: #### C OINP #### [place] [address] INFLUENZA B, PCR Not detected Normal Not Detected [facility] Comment on above: Result Comment: Resp iratory virus testing is performed routinely by PCR for Influenza A/B and RSV. Not Detected results do not preclude Influenza A/B or RSV infections since the adequacy of sample collection or low viral burden may impact the clinical sensitivity of this test method. Performed By: #### C OINP #### [place] [address] SARS-CoV-2 (COVID-19) RNA MALKA+probe Ql (Unsp spec) Not detected Normal Not Detected [facility] Comment on above: Result Comment: . This test has received FDA Emergency Use Authorization (EUA) and has been verified by [facility]. This test is only authorized for the duration of time that circumstances exist to justify the authorization of the emergency use of in vitro diagnostic tests for the detection of SARS-CoV-2 virus and/or diagnosis of COVID-19 infection under section 564(b)(1) of the Act, 21 U.S.C. 360bbb-3(b)(1), unless the authorization is terminated or revoked sooner. [facility] is certified under CLIA-88 as qualified to perform high complexity testing. Testing is performed in the [facility] laboratory located at [address] [place] [address]. SARS-CoV-2/Flu/RSV Multiplex Test: Fact sheet for providers: https://www.fda.gov/media/606070/download Fact sheet for patients: https://www.fda.gov/media/954712/download Performed By: #### C OINP #### [place] [address] Lab Specimen Source Nasal, Nasopharyngeal [facility] Comment on above: Performed By: #### C OINP #### [place] [address] DATE OF SYMPTOM ONSET [YYYYMMDD]? 20210119 Normal [facility] Comment on above: Performed By: #### C OINP #### [place] [address] Provider Note - ED v3on 12- Provider Note - ED v3 Provider Note: Chart Review: ED NOTES ED NOTES: ====HPI==== Is a 35-year-old female who presents to the emergency department with a chief complaint of a right-sided headache. She states that she developed a headache yesterday. She denies any injury. No change in her vision. She states that the headache is intermittent. She states that yesterday it developed and had worsened throughout the day. She states that she is feeling better today. She states that her son has Covid symptoms and is awaiting test results for Covid. She states that she was seen at the [facility] an urgent care and they sent her to the ER for her headache. She denies any nausea or vomiting. No sensitivity to light. She does get tension headaches but states that this headache is different than her tension headache. She states that she has a very slight cough but no shortness of breath. PMHX: anxiety and depression Social HX: denies TOBACCO denies ETOH denies DRUGS ====Review of Systems==== 10 point system review is negative except for those specifically mentioned in history of present illness ====Physical Exam==== Constitutional/General: Alert and oriented x3, well appearing, nontoxic, and in NAD. Head: Normocephalic and atraumatic. Eyes: PERRL, EOMI, conjunctive normal, sclera nonicteric, subconjunctival layer is pink. Mouth: Oropharynx clear, handling secretions, no trismus, no asymmetry of the posterior oropharynx or uvular edema Neck: Supple, full ROM, non tender to palpation in the midline, no stridor, no crepitus, no meningeal signs. Trachea at midline. Respiratory: Lungs clear to auscultation bilaterally, no wheezes, rales, or rhonchi, not in respiratory distress. Cardiovascular: Regular rate, regular rhythm, no murmurs, gallops, or rubs, 2+ distal pulses. Chest: normal chest wall movement GI: Abdomen soft, nontender, nondistended, + BS, no organomegaly, no palpable masses, no rebound, guarding, or rigidity. Musculoskeletal: Moves all extremities x4, warm and well perfused, no clubbing, cyanosis, or edema, cap refill <3 seconds Integument: Skin warm and dry, no rashes. Lymphatic: No lymphadenopathy noted. Neurologic: GCS 15, no focal deficits, symmetric strength 5/5 in the upper and lower extremities bilaterally. Psychiatric: Normal affect. ====ED Course and Medical Decision Making==== See MDM section for review of findings & plan of care. Portions of this note were dictated by speech recognition. An attempt at proof reading was made to minimize errors. Minor errors in fighting vehicle infantryman may be present. Please call if questions.. HISTORY OF PRESENTING ILLNESS VIOLET is a 35 year old Female and was seen by me at 19-Jan-2021 12:29 for a chief complaint of headache (c/o headache to right side since yesterday. c/o cough. states son is getting tested for covid.)(1). Triage Information: Most recent Vital Sign Value Date Temp (F): 98.9 01-19-2021 12:56 Temp (C): 37.1 01-19-2021 12:56 Heart Rate (beats/min): 66 01-19-2021 12:56 Respirations (breaths/min): 16 01-19-2021 12:56 SpO2 (%): 96 01-19-2021 12:56 BP Systolic (mm Hg): 131 01-19-2021 12:56 BP Diastolic (mm Hg): 68 01-19-2021 12:56 PAST MEDICAL HISTORY ALLERGIES/INTOLERANCES: No Known Allergies HEALTH HISTORY: No documented data. OUTPATIENT MEDICATIONS: Home Medications Review Status for Reconciliation: Complete Med Status: Patient Currently Takes Medications Drug Name: FLUoxetine 40 mg oral capsule Instructions: 1 cap(s) orally once a day Drug Name: estradiol-norgestimate biphasic oral tablet Instructions: 1 tab(s) orally once a day Drug Name: Multiple Vitamins oral tablet Instructions: 1 tab(s) orally once a day Drug Name: hydrOXYzine hydrochloride 10 mg oral tablet Instructions: 1 tab(s) orally 2 times a day Drug Name: buPROPion 150 mg/24 hours (XL) oral tablet, extended release Instructions: 1 tab(s) orally once a day (in the morning) Drug Name: Vitamin B-12 1000 mcg oral tablet Instructions: 1 tab(s) orally once a day Drug Name: Cranberry oral tablet Instructions: 1 tab(s) orally once a day Drug Name: vitamin E 400 intl units oral capsule Instructions: 1 cap(s) orally once a day Drug Name: Calcium 600+D 600 mg-5 mcg (200 intl units) oral tablet Instructions: 1 tab(s) orally once a day Drug Name: OLANZapine 5 mg oral tablet Instructions: 1 tab(s) orally once a day SIGNIFICANT EVENTS: No documented data. CRITICAL CARE RESULTS: Recent Lab Results: I have reviewed these laboratory results: Influenza A/B,Covid 2019 PCR,Symptomatic 19-Jan-2021 13:32:00 ResultValue Fluid Source Nasal, Nasopharyngeal Influenza A PCR NOT DETECTED Reference Range: Not Detected Respiratory virus testing is performed routinely by PCR for Influenza A/B and RSV. Not Detected results do not preclude Influenza A/B or RSV infections since the adequa (more content not included)... Normal [facility] Risk Screen - Adult Emergenc yon 01-19-2021 Risk Screen - Adult Emergency Preferred Language: Preferred Language: Preferred Language for Discussing Health Care (patient/designee)Khang villareal Advanced Directives: Advance Directive/DNRno Family Violence Adult: Abuse Screen: Are you or have you been threatened or abused physically, emotionally, or sexually by anyoneno Learning Assessment (Patient): Learning Assessment (Patient): Patient is Able to be Assessed for Learningyes Factors Influencing Readiness to Learnn/a Factors that Impact Ability to Learnnone Devices/Methods Used to Communicatenone Learning Preferencesverbal instruction; written material Cultural Considerationsnone Developmental Considerationsnone Episcopalian Considerationsnone Learning Assessment (Other Learner): Learning Assessment (Other Learner): Other learner availableno Pressure Injury/TB/Substance: Pressure Injury: Do you have a coughyes... Has your cough lasted longer than 2 weeksno Smoking Statusnever smoker Alcohol Useoccasionally Drug Usedenies Admission Risk Screen: Significant IndicatorsComplete CAGE: CAGE: Is this an injured patient at a Trauma Center ([facility]): no Electronic Signatures: Miladis Haney (SHARMILA) (Signed 19-Jan-2021 13:13) Authored: Preferred Language, Advanced Directives, Family Violence Adult, Learning Assessment (Patient), Learning Assessment (Other Learner), Pressure Injury/TB/Substance, Pressure Injury, CAGE Last Updated: 19-Jan-2021 13:13 by Miladis Haney (RN) Normal [facility] Triage - EDon 01-19-2021 Triage - ED Quick Triage: Are You no Have You Given In The Last 6 Weeksno Are You Currently Breastfeedingno Chart Review: PRIMARY ASSESSMENT ABCD Normal Findings: airway open and patent, circulation normal and alert and oriented ARRIVAL INFORMATION Means of Arrival: Ambulatory Mode of Arrival: private vehicle Arrival From: home Accompanied By: self Language: Spoken Language Preferred: Hebrew Reading Language Preferred: Hebrew Present on Arrival: Device Present on Arrival to ED: no CHIEF COMPLAINT VIOLET HERNANDEZ is a Female patient with a chief complaint of headache (c/o headache to right side since yesterday. c/o cough. states son is getting tested for covid.). Triage Date/Time: 19-Jan-2021 12:48 HANS: 3 Pain Rating (0-10): 3 = Mild Pain location: head Vital Signs: Temperature: 98.9F ( 37.1C) taken oral Blood Pressure: 131/68 Mean: Heart Rate: 66 Respiratory Rate: 16 Pulse Oximetry: 96% on room air, no respiratory support. Height: 4 feet 10.00 inches. 147.3 CM Weight: 138.2 pounds. Calculated 62.7 kg. (stated) Calculated BMI (kg/m2): 28.897 Calculated BSA (m2) 1.60 Mulberry Coma Scale: Best Eye Response: (E4) spontaneous Best Motor Response: (M6) obeys commands Best Verbal Response: (V5) oriented Mulberry Score: 15 Allergies: no Patient has homicidal thoughts: no Symptom Notes: . Symptoms Are POSITIVE For: anxiety. Symptoms Are Negative For: photophobia. Last Known Well: unknown Risk Screens Suicide Risk Screen In the Past Month: Have you wished you were or wished you could go to sleep and not wake up no In the Past Month: Have you had any actual thoughts of killing yourself no In Your Lifetime: Have you ever done anything, started to do anything, or prepared to do anything to end your life no Dixon Fall Scale Screening Has the patient fallen before (or is the patient in the ED as a result of a fall) has not had a fall Does the patient have an impaired gait does not have impaired gait Is the patient cognitively impaired not cognitively impaired Interventions: Zack Fall Interventions: LOW INTERVENTIONS: *patient oriented to surroundings and call system, * patient/family falls education completed and documented, *patients fall status communicated during bedside handoff, *whiteboard updated, *mode of toileting discussed with patient, *bed in low position with brakes locked, *call light in reach, * non-skid footwear TRAVEL HISTORY Travel History Coronavirus Screening: positive for symptoms Travel Exposure History: NO travel to International locations in the past 30 days PAIN Pain Scale Used: NOAH Pain Rating (0-10): 3 = Mild Past Medical History: Past Medical History Reviewedyes Electronic Signatures: Miladis Haney (RN) (Signed 19-Jan-2021 13:12) Entered: Risk Screens, Pain, Arrival, ABCD, Travel History, Chart Review, Scores, Past Medical History Authored: Quick Triage, Risk Screens, Pain, Arrival, ABCD, Travel History, Chart Review, Scores, Past Medical History Last Updated: 19-Jan-2021 13:12 by Miladis Haney (RN) Normal [facility] Erythrocyte sedimentation ra eva 03-28-2019 ESR (Bld) [Velocity] 10 mm/h 0-20 [facility] Hemoglobin in reticulocytes (mass per reticulocyte)on 03-28-2019 Hemoglobin (Reticulocytes) [Entitic mass] 37.4 pg 30-35 [facility] Work Phone: IgA [Mass/Vol]on 03-28-2019 Immunoglobulin A 172 mg/dL 87-352 [facility] IgG [Mass/Vol]on 03-28-2019 Immunoglobulin G 757 mg/dL 700-1600 [facility] IgM [Mass/Vol]on 03-28-2019 Immunoglobulin M 41 mg/dL 26-217 [facility] Comment on above: Performed at: [facility] [address] [id number] Director: Jorgito Cunningham PhD, Phone: [phone] No Panel Informationon 03-28 Anti-Nuclear Antibody Screen Negative Negative [facility] Comment on above: Performed at: [facility] [address] [id number] Director: Jorgito Cunningham PhD, Phone: [phone] Immature Reticulocyte Fraction 14.70 % 3.00-15.90 [facility] Work Phone: Reticulocyte Count 1.53 % 0.5-1.5 [facility] Work Phone: Serum or plasma IgA measurem ent (mass/volume)on 03-28-2019 IgA [Mass/Vol] 172 mg/dL 87-352 [facility] Serum or plasma IgG measurem ent (mass/volume)on 03-28-2019 IgG [Mass/Vol] 757 mg/dL 700-1600 [facility] Serum or plasma IgM measurem ent (mass/volume)on 03-28-2019 IgM [Mass/Vol] 41 mg/dL 26-217 [facility] Comment on above: Performed at: [place] [id number] Director: Jorgito Cunningham PhD, Phone: [phone] CURon 11-25-2018 MAYI . MICRO - Microbiology PROCEDURE: Urine Culture [*1] SOURCE: Urine, Clean Catch BODY SITE: COLLECTED DATE/TIME: 11/23/2018 02:32 EDT RECEIVED DATE/TIME: 11/23/2018 07:50 EDT START DATE/TIME: 11/23/2018 07:50 EDT FREE TEXT SOURCE: FINAL REPORTS Final Report [] Verified Date/Time/Personnel: 11/25/2018 08:34 EDT 50,000 organisms per mL Mixed without predominant isolate(s). Sensitivity Testing not indicated. Probably contamination. Repeat culture suggested. PRELIMINARY REPORTS Preliminary Report [] Verified Date/Time/Personnel: 11/24/2018 14:01 EDT Culture results pending. Performing Locations *1: This test was performed at: [place], [address] [place] [address], [phone] , [facility] Normal [facility] ([place]) Comment on above: Performed By: #### C UR #### [address] [address] .Auto Diffon 11-23-2018 Ammonia (P) [Mass/Vol] 0.40 10 3/mcL Normal 0.09-1.40 [facility] ([place]) Comment on above: Performed By: #### C BC, ADIFF, ANEU, GFR, CMP, ERDS #### [address] [address] Basophils (Bld) [#/Vol] 0.00 10 3/mcL Normal 0.00-0.27 [facility] ([place]) Comment on above: Performed By: #### C BC, ADIFF, ANEU, GFR, CMP, ERDS #### [address] [address] Basophils/100 WBC (Bld) 0.3 % Normal 0.0-2.5 [facility] ([place]) Comment on above: Performed By: #### C BC, ADIFF, ANEU, GFR, CMP, ERDS #### [address] [address] Eosinophils (Bld) [#/Vol] 0.00 10 3/mcL Normal 0.00-0.65 [facility] ([place]) Comment on above: Performed By: #### C BC, ADIFF, ANEU, GFR, CMP, ERDS #### [address] [address] Eosinophils/100 WBC (Bld) 0.5 % Normal 0.0-6.0 [facility] ([place]) Comment on above: Performed By: #### C BC, ADIFF, ANEU, GFR, CMP, ERDS #### [address] [address] Lymphocytes (Bld) [#/Vol] 0.60 10 3/mcL Low 0.90-4.32 [facility] ([place]) Comment on above: Performed By: #### C BC, ADIFF, ANEU, GFR, CMP, ERDS #### [address] [address] Lymphocytes/100 WBC (Bld) 17.6 % Low 20.0-40.0 [facility] ([place]) Comment on above: Performed By: #### C BC, ADIFF, ANEU, GFR, CMP, ERDS #### [address] [address] Monocytes/100 WBC (Bld) 11.0 % Normal 2.0-13.0 [facility] ([place]) Comment on above: Performed By: #### C BC, ADIFF, ANEU, GFR, CMP, ERDS #### [address] [address] Neutrophils/100 WBC (Bld) 70.6 % Normal 50.0-75.0 [facility] ([place]) Comment on above: Performed By: #### C BC, ADIFF, ANEU, GFR, CMP, ERDS #### [address] [address] .GFRon 11-23-2018 GFR Non- >60 Normal [facility] ([place]) Comment on above: Result Comment: GFR Population mean for , Non- Americans Ages 20-29 = 116 mL/min/1.73 sq.m. Ages 30-39 = 107 mL/min/1.73 sq.m. Ages 40-49 = 99 mL/min/1.73 sq.m. Ages 50-59 = 93 mL/min/1.73 sq.m. Ages 60-69 = 85 mL/min/1.73 sq.m. Ages 70+ = 75 mL/min/1.73 sq.m. Chronic Kidney Disease: Less than 60 mL/min/1.73 square meters End Stage Renal Disease: Less than 15 mL/min/1.73 square meters Performed By: #### C BC, ADIFF, ANEU, GFR, CMP, ERDS #### [address] [address] GFR >60 Normal [facility] ([place]) Comment on above: Result Comment: GFR Population mean for , Non- Americans Ages 20-29 = 116 mL/min/1.73 sq.m. Ages 30-39 = 107 mL/min/1.73 sq.m. Ages 40-49 = 99 mL/min/1.73 sq.m. Ages 50-59 = 93 mL/min/1.73 sq.m. Ages 60-69 = 85 mL/min/1.73 sq.m. Ages 70+ = 75 mL/min/1.73 sq.m. Chronic Kidney Disease: Less than 60 mL/min/1.73 square meters End Stage Renal Disease: Less than 15 mL/min/1.73 square meters Performed By: #### C BC, ADIFF, ANEU, GFR, CMP, ERDS #### [place] [address] .NEUABSon 11-23-2018 Neutrophils (Bld) [#/Vol] 2.40 10 3/mcL Normal 2.25-8.10 [facility] ([place]) Comment on above: Performed By: #### C BC, ADIFF, ANEU, GFR, CMP, ERDS #### [place] [address] CBCon 11-23-2018 Erythrocyte distribution width (RBC) [Ratio] 13.9 % Normal 11.5-15.5 [facility] ([place]) Comment on above: Performed By: #### C BC, ADIFF, ANEU, GFR, CMP, ERDS #### [place] [address] Hematocrit (Bld) [Volume fraction] 39.4 % Normal 34.0-46.0 [facility] ([place]) Comment on above: Performed By: #### C BC, ADIFF, ANEU, GFR, CMP, ERDS #### [place] [address] Hemoglobin (Bld) [Mass/Vol] 13.5 G/dL Normal 12.0-16.0 [facility] ([place]) Comment on above: Performed By: #### C BC, ADIFF, ANEU, GFR, CMP, ERDS #### [place] [address] MCH (RBC) [Entitic mass] 37.4 pg High 27.0-33.0 [facility] ([place] Comment on above: Performed By: #### C BC, ADIFF, ANEU, GFR, CMP, ERDS #### [place] [address] MCHC (RBC) [Mass/Vol] 34.3 G/dL Normal 32.0-36.0 [facility] ([place]) Comment on above: Performed By: #### C BC, ADIFF, ANEU, GFR, CMP, ERDS #### [address] [address] MCV (RBC) [Entitic vol] 109.0 fL High 80.0-99.0 [facility] ([place]) Comment on above: Performed By: #### C BC, ADIFF, ANEU, GFR, CMP, ERDS #### [address] [address] Platelet mean volume (Bld) [Entitic vol] 8.4 fL Normal 6.6-10.5 [facility] ([place] Comment on above: Performed By: #### C BC, ADIFF, ANEU, GFR, CMP, ERDS #### [place] [id number] Platelets (Bld) [#/Vol] 136 10 3/mcL Low 150-450 [facility] ([place] Comment on above: Performed By: #### C BC, ADIFF, ANEU, GFR, CMP, ERDS #### [place] [id number] RBC (Bld) [#/Vol] 3.61 10 6/mcL Low 4.10-5.30 [facility] ([place]) Comment on above: Performed By: #### C BC, ADIFF, ANEU, GFR, CMP, ERDS #### [place] [id number] WBC (Bld) [#/Vol] 3.40 10 3/mcL Low 4.50-10.80 [facility] ([place]) Comment on above: Performed By: #### C BC, ADIFF, ANEU, GFR, CMP, ERDS #### [place] [id number] CMPon 11-23-2018 Albumin/Globulin [Mass ratio] 1.4 {ratio} Normal 0.9-1.6 [facility] ([place]) Comment on above: Performed By: #### C BC, ADIFF, ANEU, GFR, CMP, ERDS #### [address] [address] ALP [Catalytic activity/Vol] 45 U/L Normal 38-126 [facility] ([place]) Comment on above: Performed By: #### C BC, ADIFF, ANEU, GFR, CMP, ERDS #### [address] [address] Bili Total 0.4 mg/dL Normal 0.2-1.2 [facility] ([place] Comment on above: Performed By: #### C BC, ADIFF, ANEU, GFR, CMP, ERDS #### [address] [address] Globulin (S) [Mass/Vol] 3.0 G/dL Normal 1.5-3.8 [facility] ([place]) Comment on above: Performed By: #### C BC, ADIFF, ANEU, GFR, CMP, ERDS #### [address] [address] Protein [Mass/Vol] 7.1 G/dL Normal 6.0-8.5 [facility] ([place]) Comment on above: Performed By: #### C BC, ADIFF, ANEU, GFR, CMP, ERDS #### [place] [id number] Albumin [Mass/Vol] 4.1 G/dL Normal 3.2-4.8 [facility] ([place]) Comment on above: Performed By: #### C BC, ADIFF, ANEU, GFR, CMP, ERDS #### [address] [address] ALT [Catalytic activity/Vol] 36 U/L Normal 10-49 [facility] ([place] Comment on above: Performed By: #### C BC, ADIFF, ANEU, GFR, CMP, ERDS #### [address] [address] AST [Catalytic activity/Vol] 20 U/L Normal 8-34 [facility] ([place] Comment on above: Performed By: #### C BC, ADIFF, ANEU, GFR, CMP, ERDS #### [address] [address] Calcium [Mass/Vol] 9.2 mg/dL Normal 8.4-10.1 [facility] ([place]) Comment on above: Performed By: #### C BC, ADIFF, ANEU, GFR, CMP, ERDS #### [address] [address] Chloride [Moles/Vol] 106 mmol/L Normal 98-110 [facility] ([place]) Comment on above: Performed By: #### C BC, ADIFF, ANEU, GFR, CMP, ERDS #### [address] [address] CO2 [Moles/Vol] 21 mmol/L Low 22-32 [facility] ([place] Comment on above: Performed By: #### C BC, ADIFF, ANEU, GFR, CMP, ERDS #### [address] [address] Creatinine [Mass/Vol] 0.66 mg/dL Normal 0.50-1.20 [facility] ([place]) Comment on above: Performed By: #### C BC, ADIFF, ANEU, GFR, CMP, ERDS #### [place] [address] Electrolyte Balance 11.0 mEq/L Normal 4.0-15.0 [facility] ([place]) Comment on above: Performed By: #### C BC, ADIFF, ANEU, GFR, CMP, ERDS #### [address] [address] Glucose [Mass/Vol] 88 mg/dL Normal 70-110 [facility] ([place] Comment on above: Performed By: #### C BC, ADIFF, ANEU, GFR, CMP, ERDS #### [place] [id number] Potassium [Moles/Vol] 3.7 mmol/L Normal 3.5-5.0 [facility] ([place]) Comment on above: Performed By: #### C BC, ADIFF, ANEU, GFR, CMP, ERDS #### [place] [id number] Sodium [Moles/Vol] 138 mmol/L Normal 136-145 [facility] ([place]) Comment on above: Performed By: #### C BC, ADIFF, ANEU, GFR, CMP, ERDS #### [place] [address] Urea nitrogen [Mass/Vol] 11.0 mg/dL Normal 8.0-22.0 [facility] ([place] Comment on above: Performed By: #### C BC, ADIFF, ANEU, GFR, CMP, ERDS #### [place] [address] Urea nitrogen/Creatinine [Mass ratio] 16.7 ratio Normal 10.0-22.0 [facility] ([place] Comment on above: Performed By: #### C BC, ADIFF, ANEU, GFR, CMP, ERDS #### [place] [address] ERDSon 11-23-2018 Acetaminophen [Mass/Vol] <2.0 Low 10.0-30.0 [facility] ([place] Comment on above: Performed By: #### C BC, ADIFF, ANEU, GFR, CMP, ERDS #### [place] [address] ER Drug Screen (s) Negative Normal [facility] ([place] Comment on above: Performed By: #### C BC, ADIFF, ANEU, GFR, CMP, ERDS #### [place] [address] ER Drug Screen Interp Serum shows no abel dence of drugs routinely screened [facility] ([place] Comment on above: Performed By: #### C BC, ADIFF, ANEU, GFR, CMP, ERDS #### [place] [address] ER Serum Drugs Screened: See Below Normal [facility] ([place] Comment on above: Result Comment: This drug screen is a presumptive screening only. No confirmation will be performed unless requested. Drugs included in the ER serum drug screen are: Threshold Ethanol 10.0 mg/dL Salicylate 2.0 mg/dL Acetaminophen 2.0 mcg/mL Tricyclic Antidepressants 300 ng/mL Testing has been performed FOR MEDICAL PURPOSES ONLY. Performed By: #### C BC, ADIFF, ANEU, GFR, CMP, ERDS #### [place] [address] Ethanol Level <10.0 Normal [facility] ([place] Comment on above: Performed By: #### C BC, ADIFF, ANEU, GFR, CMP, ERDS #### [place] [address] Salicylate Lvl (ds) <2.0 Low 10.0-25.0 [facility] ([place]) Comment on above: Performed By: #### C BC, ADIFF, ANEU, GFR, CMP, ERDS #### [place] [address] TCA (s) Negative Normal [facility] ([place] Comment on above: Performed By: #### C BC, ADIFF, ANEU, GFR, CMP, ERDS #### [place] [address] U ERDSon 11-23-2018 ER U Drug Screen Negative [facility] ([place] Comment on above: Performed By: #### U ERDS #### [place] [address] ER U Drug Screen Interp Urine shows no evidence of drugs routinely screened. [facility] ([place] Comment on above: Performed By: #### U ERDS #### [place] [address] U ER Drugs Screened: See Below [facility] ([place]) Comment on above: Result Comment: This drug screen is a presumptive screening only. No confirmation will be performed unless requested. Drugs included in the ER urine drug screen are: Threshold Amphetamine/Methamphetamine 1000 ng/mL Barbiturates 200 ng/mL Benzodiazepine metabolites 200 ng/mL Cannabinoids (THC metabolites) 50 ng/mL Benzoylecognine (cocaine met) 300 ng/mL Opiates 300 ng/mL Phencyclidine (PCP) 25 ng/mL Testing has been performed FOR MEDICAL PURPOSES ONLY. Performed By: #### U ERDS #### [place] [address] Vital Signs Date Time Vital Sign Value Performing Clinician Facility 07-28-2024 11:46-0400 Body height 147.[address] Emily Sanders MD Work Phone: [facility] 07-28-2024 11:46-0400 Body weight 60.[address] Emily Sanders MD Work Phone: [facility] 07-19-2024 12:32-0400 Body height 147.[address] Emily Sanders MD Work Phone: [facility] 07-19-2024 12:32-0400 Body mass index (BMI) [Ratio] 28 kg/m2 Dr. Emily Sanders MD Work Phone: [facility] 07-19-2024 12:32-0400 Body weight 60.[address] Emily Sanders MD Work Phone: [facility] 07-19-2024 12:32-0400 Diastolic blood pressure 66 mm[Hg] Dr. Emily Sanders MD Work Phone: [facility] 07-19-2024 12:32-0400 Heart rate 50 /min Dr. Emily Sanders MD Work Phone: [facility] 07-19-2024 12:32-0400 SaO2% (BldA) [Mass fraction] 95 % Dr. Emily Sanders MD Work Phone: [facility] 07-19-2024 12:32-0400 Systolic blood pressure 109 mm[Hg] Dr. Emily Sanders MD Work Phone: [facility] 06-29-2024 08:21-0400 Body height 147.[address] Emily Sanders MD Work Phone: [facility] 06-29-2024 08:21-0400 Body mass index (BMI) [Ratio] 28.3 kg/m2 Dr. Emily Sanders MD Work Phone: [facility] 06-29-2024 08:21-0400 Body weight 61.[address] Emily Sanders MD Work Phone: [facility] 06-29-2024 08:21-0400 Diastolic blood pressure 72 mm[Hg] Dr. Emily Sanders MD Work Phone: [facility] 06-29-2024 08:21-0400 Heart rate 60 /min Dr. Emily Sanders MD Work Phone: [facility] 06-29-2024 08:21-0400 Respiratory rate 18 /min Dr. Emily Sanders MD Work Phone: [facility] 06-29-2024 08:21-0400 SaO2% (BldA) [Mass fraction] 96 % Dr. Emily Sanders MD Work Phone: [facility] 06-29-2024 08:21-0400 Systolic blood pressure 107 mm[Hg] Dr. Emily Sanders MD Work Phone: [facility] 06-20-2024 07:58-0400 Body temperature 98.8 [degF] Dr. Emily Sanders MD Work Phone: [facility] 06-20-2024 07:58-0400 Diastolic blood pressure 60 mm[Hg] Dr. Emily Sanders MD Work Phone: [facility] 06-20-2024 07:58-0400 Heart rate 90 /min Dr. Emily Sanders MD Work Phone: [facility] 06-20-2024 07:58-0400 SaO2% (BldA) [Mass fraction] 97 % Dr. Emily Sanders MD Work Phone: [facility] 06-20-2024 07:58-0400 Systolic blood pressure 100 mm[Hg] Dr. Emily Sanders MD Work Phone: [facility] 05-20-2024 16:12-0400 Body height 147.3 cm Sherly Ng APRN.CNP Work Phone: [facility] 05-20-2024 16:12-0400 Body mass index (BMI) [Ratio] 28.63 kg/m2 Sherly Ng APRN.DRUG SAFETY PHYSICIAN Work Phone: [facility] 05-20-2024 16:12-0400 Body weight 62.14 kg Sherly Henrymari WHITE.DRUG SAFETY PHYSICIAN Work Phone: [facility] 05-20-2024 16:12-0400 Diastolic blood pressure 60 mm[Hg] Sherly Ng APRN.DRUG SAFETY PHYSICIAN Work Phone: [facility] 05-20-2024 16:12-0400 Systolic blood pressure 100 mm[Hg] Sherly Ng APRN.DRUG SAFETY PHYSICIAN Work Phone: [facility] 04-27-2024 08:00-0400 Body height 147.[address] Emily Sanders MD Work Phone: [facility] 04-27-2024 08:00-0400 Body mass index (BMI) [Ratio] 28.8 kg/m2 Dr. Emily Sanders MD Work Phone: [facility] 04-27-2024 08:00-0400 Body temperature 97.2 [degF] Dr. Emily Sanders MD Work Phone: [facility] 04-27-2024 08:00-0400 Body weight 62.[address] Emily Sanders MD Work Phone: [facility] 04-27-2024 08:00-0400 Diastolic blood pressure 78 mm[Hg] Dr. Emily Sanders MD Work Phone: [facility] 04-27-2024 08:00-0400 Heart rate 80 /min Dr. Emily Sanders MD Work Phone: [facility] 04-27-2024 08:00-0400 Respiratory rate 18 /min Dr. Emily Sanders MD Work Phone: [facility] 04-27-2024 08:00-0400 SaO2% (BldA) [Mass fraction] 96 % Dr. Emily Sanders MD Work Phone: [facility] 04-27-2024 08:00-0400 Systolic blood pressure 118 mm[Hg] Dr. Emily Sanders MD Work Phone: [facility] 04-25-2024 13:07-0400 Body mass index (BMI) [Ratio] 28.9 kg/m2 Dr. Emily Sanders MD Work Phone: [facility] 04-25-2024 13:07-0400 Body temperature 98.2 [degF] Dr. Emily Sanders MD Work Phone: [facility] 04-25-2024 13:07-0400 Body weight 62.[address] Emily Sanders MD Work Phone: [facility] 04-25-2024 13:07-0400 Diastolic blood pressure 67 mm[Hg] Dr. Emily Sanders MD Work Phone: [facility] 04-25-2024 13:07-0400 Heart rate 56 /min Dr. Emily Sanders MD Work Phone: [facility] 04-25-2024 13:07-0400 Respiratory rate 18 /min Dr. Emily Sanders MD Work Phone: [facility] 04-25-2024 13:07-0400 SaO2% (BldA) [Mass fraction] 98 % Dr. Emily Sanders MD Work Phone: [facility] 04-25-2024 13:07-0400 Systolic blood pressure 114 mm[Hg] Dr. Emily Sanders MD Work Phone: [facility] 04-04-2024 09:24-0500 Diastolic blood pressure 60 mm[Hg] Dr. Emily Sanders MD Work Phone: [facility] 04-04-2024 09:24-0500 Systolic blood pressure 112 mm[Hg] Dr. Emily Sanders MD Work Phone: [facility] 04-04-2024 09:14-0500 Body height 147.[address] Emily Sanders MD Work Phone: [facility] 04-04-2024 09:14-0500 Body mass index (BMI) [Ratio] 28.6 kg/m2 Dr. Emily Sanders MD Work Phone: [facility] 04-04-2024 09:14-0500 Body temperature 98.4 [degF] Dr. Emily Sanders MD Work Phone: [facility] 04-04-2024 09:14-0500 Body weight 62.[address] Emily Sanders MD Work Phone: [facility] 04-04-2024 09:14-0500 Heart rate 78 /min Dr. Emily Sanders MD Work Phone: [facility] 04-04-2024 09:14-0500 Respiratory rate 18 /min Dr. Emily Sanders MD Work Phone: [facility] 04-04-2024 09:14-0500 SaO2% (BldA) [Mass fraction] 99 % Dr. Emily Sanders MD Work Phone: [facility] 04-03-2024 11:56-0500 Body temperature 97.8 [degF] Dr. Emily Sanders MD Work Phone: [facility] 04-03-2024 11:56-0500 Diastolic blood pressure 68 mm[Hg] Dr. Emily Sanders MD Work Phone: [facility] 04-03-2024 11:56-0500 Heart rate 52 /min Dr. Emily Sanders MD Work Phone: [facility] 04-03-2024 11:56-0500 Respiratory rate 16 /min Dr. Emily Sanders MD Work Phone: [facility] 04-03-2024 11:56-0500 SaO2% (BldA) [Mass fraction] 99 % Dr. Emily Sanders MD Work Phone: [facility] 04-03-2024 11:56-0500 Systolic blood pressure 124 mm[Hg] Dr. Emily Sanders MD Work Phone: [facility] 04-03-2024 09:49-0500 Body mass index (BMI) [Ratio] 28.8 kg/m2 Dr. Emily Sanders MD Work Phone: [facility] 04-03-2024 09:49-0500 Body weight 62.[address] Emily Sanders MD Work Phone: [facility] 03-31-2024 08:01-0500 Body temperature 98.1 [degF] Dr. Emily Sanders MD Work Phone: [facility] 03-31-2024 08:01-0500 Diastolic blood pressure 82 mm[Hg] Dr. Emily Sanders MD Work Phone: [facility] 03-31-2024 08:01-0500 Heart rate 73 /min Dr. Emily Sanders MD Work Phone: [facility] 03-31-2024 08:01-0500 Respiratory rate 16 /min Dr. Emily Sanders MD Work Phone: [facility] 03-31-2024 08:01-0500 SaO2% (BldA) [Mass fraction] 97 % Dr. Emily Sanders MD Work Phone: [facility] 03-31-2024 08:01-0500 Systolic blood pressure 137 mm[Hg] Dr. Emily Sanders MD Work Phone: [facility] 03-31-2024 06:26-0500 Body mass index (BMI) [Ratio] 29 kg/m2 Dr. Emily Sanders MD Work Phone: [facility] 03-31-2024 06:26-0500 Body weight 62.[address] Emily Sanders MD Work Phone: [facility] 03-29-2024 11:01-0500 Body height 147.3 cm Valentine Roth [employer] OWNER OPERATOR TRUCK DRIVER-DRUG SAFETY PHYSICIAN Work Phone: [facility] 03-29-2024 11:01-0500 Body mass index (BMI) [Ratio] 28.84 kg/m2 Valentine Ira [employer]IONAL OWNER OPERATOR TRUCK DRIVER-DRUG SAFETY PHYSICIAN Work Phone: [phone] [address] 03-29-2024 11:01-0500 Body temperature 98.1 [degF] Valentine Ira [employer]IONAL OWNER OPERATOR TRUCK DRIVER-DRUG SAFETY PHYSICIAN Work Phone: [phone] [place] [address] 03-29-2024 11:01-0500 Body weight 62.6 kg Valentine Ira [employer]IONAL OWNER OPERATOR TRUCK DRIVER-DRUG SAFETY PHYSICIAN Work Phone: [phone])[phone] [address] 03-29-2024 11:01-0500 Diastolic blood pressure 75 mm[Hg] Valentine Rosalesey [employer]IONAL OWNER OPERATOR TRUCK DRIVER-DRUG SAFETY PHYSICIAN Work Phone: 1(346)[phone] [place] [address] 03-29-2024 11:01-0500 Heart rate 74 /min Valentine Ira [employer]AL OWNER OPERATOR TRUCK DRIVER-DRUG SAFETY PHYSICIAN Work Phone: 2(386)[phone] [place] [address] 03-29-2024 11:01-0500 Respiratory rate 18 /min Valentine Roth [employer] OWNER OPERATOR TRUCK DRIVER-DRUG SAFETY PHYSICIAN Work Phone: 6(026)[phone] [place] [address] 03-29-2024 11:01-0500 SaO2% (BldA) [Mass fraction] 97 % Valentine Roth [employer] OWNER OPERATOR TRUCK DRIVER-DRUG SAFETY PHYSICIAN Work Phone: [phone])[phone] [place] [address] 03-29-2024 11:01-0500 Systolic blood pressure 107 mm[Hg] Valentine Roth REGIONAL OWNER OPERATOR TRUCK DRIVER-DRUG SAFETY PHYSICIAN Work Phone: [phone] [place] [address] 02-11-2024 13:37-0500 Body mass index (BMI) [Ratio] 29.89 kg/m2 Leo Monroe MD Work Phone: [facility] 02-11-2024 13:37-0500 Body weight 67.13 kg Leo Monroe MD Work Phone: [facility] 02-11-2024 13:37-0500 Diastolic blood pressure 66 mm[Hg] Leo Monroe MD Work Phone: [facility] 02-11-2024 13:37-0500 Systolic blood pressure 108 mm[Hg] Leo Monroe MD Work Phone: [facility] 01-18-2024 13:52-0500 Diastolic blood pressure 85 mm[Hg] Dr. Emily Sanders MD Work Phone: [facility] 01-18-2024 13:52-0500 Heart rate 65 /min Dr. Emily Sanders MD Work Phone: [facility] 01-18-2024 13:52-0500 Respiratory rate 16 /min Dr. Emily Sanders MD Work Phone: [facility] 01-18-2024 13:52-0500 SaO2% (BldA) [Mass fraction] 97 % Dr. Emily Sanders MD Work Phone: [facility] 01-18-2024 13:52-0500 Systolic blood pressure 130 mm[Hg] Dr. Emily Sanders MD Work Phone: [facility] 01-18-2024 12:47-0500 Body mass index (BMI) [Ratio] 31.1 kg/m2 Dr. Emily Sanders MD Work Phone: [facility] 01-18-2024 12:47-0500 Body temperature 97.2 [degF] Dr. Emily Sanders MD Work Phone: [facility] 01-18-2024 12:47-0500 Body weight 67.[address] Emily Sanders MD Work Phone: [facility] 01-15-2024 13:57-0500 Body height 149.9 cm Lee Billow DO Work Phone: [facility] 01-15-2024 13:57-0500 Body mass index (BMI) [Ratio] 30.3 kg/m2 Lee Billow DO Work Phone: [facility] 01-15-2024 13:57-0500 Body weight 68.04 kg Lee Billow DO Work Phone: [facility] 01-15-2024 13:57-0500 Diastolic blood pressure 78 mm[Hg] Lee Billow DO Work Phone: [facility] 01-15-2024 13:57-0500 Systolic blood pressure 119 mm[Hg] Lee Billow DO Work Phone: [facility] 12-31-2023 16:00-0500 Body mass index (BMI) [Ratio] 32.3 kg/m2 Dr. Emily Sanders MD Work Phone: [facility] 12-31-2023 16:00-0500 Body temperature 97.8 [degF] Dr. Emily Sanders MD Work Phone: [facility] 12-31-2023 16:00-0500 Body weight 70.[address] Emily Sanders MD Work Phone: [facility] 12-31-2023 16:00-0500 Diastolic blood pressure 60 mm[Hg] Dr. Emily Sanders MD Work Phone: [facility] 12-31-2023 16:00-0500 Heart rate 63 /min Dr. Emily Sanders MD Work Phone: [facility] 12-31-2023 16:00-0500 Respiratory rate 16 /min Dr. Emily Sanders MD Work Phone: [facility] 12-31-2023 16:00-0500 SaO2% (BldA) [Mass fraction] 96 % Dr. Emily Sanders MD Work Phone: [facility] 12-31-2023 16:00-0500 Systolic blood pressure 120 mm[Hg] Dr. Emily Sanders MD Work Phone: [facility] 12-17-2023 14:56-0500 Body height 147.3 cm Yennifer Brazofsky REGIONAL 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 Work Phone: [facility] 12-17-2023 14:56-0500 Body mass index (BMI) [Ratio] 32.9 kg/m2 Yennifer Brazofsky REGIONAL 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 Work Phone: [facility] 12-17-2023 14:56-0500 Body weight 71.4 kg Yennifer Brazofsky REGIONAL 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 Work Phone: [facility] 12-17-2023 14:56-0500 Diastolic blood pressure 80 mm[Hg] Yennifer Brazofsky REGIONAL 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 Work Phone: [facility] 12-17-2023 14:56-0500 Systolic blood pressure 124 mm[Hg] Yennifer Brazofsky REGIONAL 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 Work Phone: [facility] 11-06-2023 13:22-0400 Body height 147.3 cm Pacc 1 Work Phone: [facility] 11-06-2023 13:22-0400 Body mass index (BMI) [Ratio] 33.02 kg/m2 Pacc 1 Work Phone: [facility] 11-06-2023 13:22-0400 Body temperature 97.9 [degF] Pacc 1 Work Phone: [facility] 11-06-2023 13:22-0400 Body weight 71.67 kg Pacc 1 Work Phone: [facility] 11-06-2023 13:22-0400 Diastolic blood pressure 76 mm[Hg] Pacc 1 Work Phone: [place] [id number] 13:22-0400 Heart rate 73 /min Pacc 1 Work Phone: [facility] 11-06-2023 13:22-0400 Respiratory rate 16 /min Pacc 1 Work Phone: [facility] 11-06-2023 13:22-0400 SaO2% (BldA) [Mass fraction] 98 % Pacc 1 Work Phone: [facility] 11-06-2023 13:22-0400 Systolic blood pressure 122 mm[Hg] Pacc 1 Work Phone: [facility] 10-26-2023 09:07-0400 Body height 147.3 cm Lee Billow DO Work Phone: [facility] 10-26-2023 09:07-0400 Body mass index (BMI) [Ratio] 32.6 kg/m2 Lee Billow DO Work Phone: [facility] 10-26-2023 09:07-0400 Body weight 70.76 kg Lee Billow DO Work Phone: [facility] 10-26-2023 09:07-0400 Diastolic blood pressure 79 mm[Hg] Lee Billow DO Work Phone: [facility] 10-26-2023 09:07-0400 Systolic blood pressure 116 mm[Hg] Lee Billow DO Work Phone: [facility] 08-12-2023 11:36-0400 Body mass index (BMI) [Ratio] 31.91 kg/m2 Leo Monroe MD Work Phone: [facility] 08-12-2023 11:36-0400 Body weight 71.67 kg Leo Monroe MD Work Phone: [facility] 08-12-2023 11:36-0400 Diastolic blood pressure 72 mm[Hg] Leo Monroe MD Work Phone: [facility] 08-12-2023 11:36-0400 Systolic blood pressure 118 mm[Hg] Leo Monroe MD Work Phone: [facility] 05-29-2023 11:06-0400 Body height 147.[address] Emily Sanders Work Phone: [facility] 05-29-2023 11:06-0400 Body mass index (BMI) [Ratio] 32.8 kg/m2 Dr. Emily Sanders Work Phone: [facility] 05-29-2023 11:06-0400 Body temperature 98.2 [degF] Dr. Emily Sanders Work Phone: [facility] 05-29-2023 11:06-0400 Body weight 71.[address] Emily Sanders Work Phone: [facility] 05-29-2023 11:06-0400 Diastolic blood pressure 62 mm[Hg] Dr. Emily Sanders Work Phone: [facility] 05-29-2023 11:06-0400 Heart rate 80 /min Dr. mEily Sanders Work Phone: [facility] 05-29-2023 11:06-0400 Respiratory rate 17 /min Dr. Emily Sanders Work Phone: [facility] 05-29-2023 11:06-0400 SaO2% (BldA) [Mass fraction] 97 % Dr. Emily Sanders Work Phone: [facility] 05-29-2023 11:06-0400 Systolic blood pressure 116 mm[Hg] Dr. Emily Sanders Work Phone: [facility] 05-19-2023 10:57-0400 Body height 149.9 cm Sherly Ng APRN.DRUG SAFETY PHYSICIAN Work Phone: [facility] 05-19-2023 10:57-0400 Body weight 70.76 kg Sherly Ng REGIONAL 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 Work Phone: [facility] 05-19-2023 10:57-0400 Diastolic blood pressure 81 mm[Hg] Sherly Ng APRN.DRUG SAFETY PHYSICIAN Work Phone: [facility] 05-19-2023 10:57-0400 Heart rate 92 /min Sherly Ng APRN.DRUG SAFETY PHYSICIAN Work Phone: [facility] 05-19-2023 10:57-0400 Systolic blood pressure 120 mm[Hg] Sherly Ng APRN.DRUG SAFETY PHYSICIAN Work Phone: [facility] 04-28-2023 14:35-0400 Body mass index (BMI) [Ratio] 32.3 kg/m2 Dr. Emily Sanders Work Phone: [facility] 04-28-2023 14:35-0400 Body temperature 98.8 [degF] Dr. Emily Sanders Work Phone: [facility] 04-28-2023 14:35-0400 Body weight 70.[address] Emily Sanders Work Phone: [facility] 04-28-2023 14:35-0400 Diastolic blood pressure 85 mm[Hg] Dr. Emily Sanders Work Phone: [facility] 04-28-2023 14:35-0400 Heart rate 87 /min Dr. Emily Sanders Work Phone: [facility] 04-28-2023 14:35-0400 Respiratory rate 14 /min Dr. Emily Sanders Work Phone: [facility] 04-28-2023 14:35-0400 SaO2% (BldA) [Mass fraction] 99 % Dr. Emily Sanders Work Phone: [facility] 04-28-2023 14:35-0400 Systolic blood pressure 122 mm[Hg] Dr. Emily Sanders Work Phone: [facility] 02-06-2023 09:57-0500 Body height 147.[address] Emily Sanders Work Phone: [facility] 02-06-2023 09:57-0500 Body mass index (BMI) [Ratio] 31.4 kg/m2 Dr. Emily Sanders Work Phone: [facility] 02-06-2023 09:57-0500 Body temperature 97.7 [degF] Dr. Emily Sanders Work Phone: [facility] 02-06-2023 09:57-0500 Body weight 68.[address] Emliy Sanders Work Phone: [facility] 02-06-2023 09:57-0500 Diastolic blood pressure 68 mm[Hg] Dr. Emily Sanders Work Phone: [facility] 02-06-2023 09:57-0500 Heart rate 98 /min Dr. Emily Sanders Work Phone: [facility] 02-06-2023 09:57-0500 Respiratory rate 16 /min Dr. Emily Sanders Work Phone: [facility] 02-06-2023 09:57-0500 SaO2% (BldA) [Mass fraction] 99 % Dr. Emily Sanders Work Phone: [facility] 02-06-2023 09:57-0500 Systolic blood pressure 118 mm[Hg] Dr. Emily Sanders Work Phone: [facility] 02-02-2023 01:35-0500 Diastolic blood pressure 80 mm[Hg] Dr. Emily Sanders Work Phone: [facility] 02-02-2023 01:35-0500 Heart rate 79 /min Dr. Emily Sanders Work Phone: [facility] 02-02-2023 01:35-0500 Respiratory rate 16 /min Dr. Emily Sanders Work Phone: [facility] 02-02-2023 01:35-0500 SaO2% (BldA) [Mass fraction] 97 % Dr. Emily Sanders Work Phone: [facility] 02-02-2023 01:35-0500 Systolic blood pressure 122 mm[Hg] Dr. Emily Sanders Work Phone: [facility] 02-01-2023 22:19-0500 Body height 147.[address] Emily Sanders Work Phone: [facility] 02-01-2023 22:19-0500 Body mass index (BMI) [Ratio] 31.4 kg/m2 Dr. Emily Sanders Work Phone: [facility] 02-01-2023 22:19-0500 Body temperature 98 [degF] Dr. Emily Sanders Work Phone: [facility] 02-01-2023 22:19-0500 Body weight 68.[address] Emily Sanders Work Phone: [facility] 12-17-2022 16:11-0500 Body height 147.[address] Emily Sanders Work Phone: [facility] 12-17-2022 16:11-0500 Body mass index (BMI) [Ratio] 29.2 kg/m2 Dr. Emily Sanders Work Phone: [facility] 12-17-2022 16:11-0500 Body temperature 100 [degF] Dr. Emily Sanders Work Phone: [facility] 12-17-2022 16:11-0500 Body weight 63.[address] Emily Sanders Work Phone: [facility] 12-17-2022 16:11-0500 Diastolic blood pressure 85 mm[Hg] Dr. Emily Sanders Work Phone: [facility] 12-17-2022 16:11-0500 Heart rate 92 /min Dr. Emily Sanders Work Phone: [facility] 12-17-2022 16:11-0500 Respiratory rate 16 /min Dr. Emily Sanders Work Phone: [facility] 12-17-2022 16:11-0500 SaO2% (BldA) [Mass fraction] 96 % Dr. Emily Sanders Work Phone: [facility] 12-17-2022 16:11-0500 Systolic blood pressure 130 mm[Hg] Dr. Emily Sanders Work Phone: [facility] 11-03-2022 15:49-0400 Body mass index (BMI) [Ratio] 29.5 kg/m2 Dr. Emily Sanders Work Phone: [facility] 11-03-2022 15:49-0400 Body weight 63.[address] Emily Sanders Work Phone: [facility] 11-03-2022 15:49-0400 Diastolic blood pressure 80 mm[Hg] Dr. Emily Sanders Work Phone: [facility] 11-03-2022 15:49-0400 Heart rate 65 /min Dr. Emily Sanders Work Phone: [facility] 11-03-2022 15:49-0400 Respiratory rate 18 /min Dr. Emily Sanders Work Phone: [facility] 11-03-2022 15:49-0400 SaO2% (BldA) [Mass fraction] 97 % Dr. Emily Sanders Work Phone: [facility] 11-03-2022 15:49-0400 Systolic blood pressure 119 mm[Hg] Dr. Emily Sanders Work Phone: [facility] 05-09-2022 12:57-0400 Body height 147.3 cm Sherly Ng APRN.DRUG SAFETY PHYSICIAN Work Phone: [facility] 05-09-2022 12:57-0400 Body weight 67.59 kg Sherly Ng APRN.DRUG SAFETY PHYSICIAN Work Phone: [facility] 05-09-2022 12:57-0400 Diastolic blood pressure 68 mm[Hg] Sherly Ng REGIONAL 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 Work Phone: [facility] 05-09-2022 12:57-0400 Systolic blood pressure 122 mm[Hg] Sherly Ng REGIONAL 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 Work Phone: [facility] 01-17-2022 11:20-0500 Body weight 66.22 kg Sherly Ng APRN.DRUG SAFETY PHYSICIAN Work Phone: [facility] 01-17-2022 11:20-0500 Diastolic blood pressure 70 mm[Hg] Sherly Ng REGIONAL 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 Work Phone: [facility] 01-17-2022 11:20-0500 Systolic blood pressure 110 mm[Hg] Sherly Ng REGIONAL 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 Work Phone: [facility] 11-15-2021 10:42-0400 Body height 147.[address] Emily Sanders Work Phone: [facility] Work Phone: 11-15-2021 10:42-0400 Body mass index (BMI) [Ratio] 31 kg/m2 Dr. Emily Sanders Work Phone: [facility] Work Phone: 11-15-2021 10:42-0400 Body weight 67.[address] Emily Sanders Work Phone: [facility] Work Phone: 09-24-2021 10:15-0400 Body mass index (BMI) [Ratio] 30.7 kg/m2 Dr. Emily Sanders Work Phone: [facility] Work Phone: 09-24-2021 10:15-0400 Body temperature 97.6 [degF] Dr. Emily Sanders Work Phone: [facility] Work Phone: 09-24-2021 10:15-0400 Body weight 66.[address] Emily Sanders Work Phone: [facility] Work Phone: 09-24-2021 10:15-0400 Diastolic blood pressure 74 mm[Hg] Dr. Emily Sanders Work Phone: [facility] Work Phone: 09-24-2021 10:15-0400 Heart rate 75 /min Dr. Emily Sanders Work Phone: [facility] Work Phone: 09-24-2021 10:15-0400 Respiratory rate 16 /min Dr. Emily Sanders Work Phone: [facility] Work Phone: 09-24-2021 10:15-0400 SaO2% (BldA) [Mass fraction] 97 % Dr. Emily Sanders Work Phone: [facility] Work Phone: 09-24-2021 10:15-0400 Systolic blood pressure 116 mm[Hg] Dr. Emily Sanders Work Phone: [facility] Work Phone: 07-15-2021 11:02-0400 Body height 147.[address] Emily Sanders Work Phone: [facility] Work Phone: 07-15-2021 11:02-0400 Body weight 64.[address] Emily Sanders Work Phone: [facility] Work Phone: 07-15-2021 11:02-0400 Diastolic blood pressure 72 mm[Hg] Dr. Emily Sanders Work Phone: [facility] Work Phone: 07-15-2021 11:02-0400 Heart rate 64 /min Dr. Emily Sanders Work Phone: [facility] Work Phone: 07-15-2021 11:02-0400 Respiratory rate 16 /min Dr. Emily Sanders Work Phone: [facility] Work Phone: 07-15-2021 11:02-0400 Systolic blood pressure 116 mm[Hg] Dr. Emily Sanders Work Phone: [facility] Work Phone: 07-01-2021 13:37-0400 Body mass index (BMI) [Ratio] 30.5 kg/m2 Dr. Emily Sanders Work Phone: [facility] Work Phone: 07-01-2021 13:37-0400 Body temperature 98.4 [degF] Dr. Emily Sanders Work Phone: [facility] Work Phone: 07-01-2021 13:37-0400 Body weight 66.[address] Emily Sanders Work Phone: [facility] Work Phone: 07-01-2021 13:37-0400 Diastolic blood pressure 84 mm[Hg] Dr. Emily Sanders Work Phone: [facility] Work Phone: 07-01-2021 13:37-0400 Heart rate 71 /min Dr. Emily Sanders Work Phone: [facility] Work Phone: 07-01-2021 13:37-0400 Respiratory rate 14 /min Dr. Emily Sanders Work Phone: [facility] Work Phone: 07-01-2021 13:37-0400 SaO2% (BldA) [Mass fraction] 97 % Dr. Emily Sanders Work Phone: [facility] Work Phone: 07-01-2021 13:37-0400 Systolic blood pressure 124 mm[Hg] Dr. Emily Sanders Work Phone: [facility] Work Phone: 05-07-2021 14:23-0400 Body height 152.4 cm Leo Monroe MD Work Phone: [facility] 05-07-2021 14:23-0400 Body weight 65.32 kg Leo Monroe MD Work Phone: [facility] 05-07-2021 14:23-0400 Diastolic blood pressure 72 mm[Hg] Leo Monroe MD Work Phone: [facility] 05-07-2021 14:23-0400 Systolic blood pressure 112 mm[Hg] Leo Monroe MD Work Phone: [facility] 04-17-2021 09:49-0500 Body mass index (BMI) [Ratio] 30.2 kg/m2 Dr. Emily Sanders Work Phone: [facility] Work Phone: 04-17-2021 09:49-0500 Body temperature 98.4 [degF] Dr. Emily Sanders Work Phone: [facility] Work Phone: 04-17-2021 09:49-0500 Body weight 65.[address] Emily Sanders Work Phone: [facility] Work Phone: 04-17-2021 09:49-0500 Diastolic blood pressure 80 mm[Hg] Dr. Emily Sanders Work Phone: [facility] Work Phone: 04-17-2021 09:49-0500 Heart rate 51 /min Dr. Emily Sanders Work Phone: [facility] Work Phone: 04-17-2021 09:49-0500 Respiratory rate 15 /min Dr. Emily Sanders Work Phone: [facility] Work Phone: 04-17-2021 09:49-0500 SaO2% (BldA) [Mass fraction] 97 % Dr. Emily Sanders Work Phone: [facility] Work Phone: 04-17-2021 09:49-0500 Systolic blood pressure 131 mm[Hg] Dr. Emily Sanders Work Phone: [facility] Work Phone: 01-19-2021 18:57-0500 Diastolic blood pressure 72 mm[Hg] No Pcp Required [facility] 01-19-2021 18:57-0500 Heart rate 62 /min No Pcp Required [facility] 01-19-2021 18:57-0500 Respiratory rate 16 /min No Pcp Required [facility] 01-19-2021 18:57-0500 SaO2% (BldA) [Mass fraction] 98 % No Pcp Required [facility] 01-19-2021 18:57-0500 Systolic blood pressure 109 mm[Hg] No Pcp Required [facility] 01-19-2021 14:56-0500 Body height 147.3 cm No Pcp Required [facility] 01-19-2021 14:56-0500 Body temperature 98.78 [degF] No Pcp Required [facility] 01-19-2021 14:56-0500 Body weight 62.7 kg No Pcp Required [facility] 08-29-2020 09:37-0400 Body mass index (BMI) [Ratio] 28.8 kg/m2 Dr. Emily Sanders Work Phone: [facility] Work Phone: 03-26-2020 10:55-0500 Body mass index (BMI) [Ratio] 27.6 kg/m2 Dr. Emily Sanders Work Phone: [facility] 03-26-2020 10:55-0500 Body temperature 98.9 [degF] Dr. Emily Sanders Work Phone: [facility] 03-26-2020 10:55-0500 Diastolic blood pressure 69 mm[Hg] Dr. Emily Sanders Work Phone: [facility] 03-26-2020 10:55-0500 Heart rate 61 /min Dr. Emily Sanders Work Phone: [facility] 03-26-2020 10:55-0500 Respiratory rate 16 /min Dr. Emily Sanders Work Phone: [facility] 03-26-2020 10:55-0500 SaO2% (BldA) [Mass fraction] 95 % Dr. Emily Sanders Work Phone: [facility] 03-26-2020 10:55-0500 Systolic blood pressure 102 mm[Hg] Dr. Emily Sanders Work Phone: [facility] 03-26-2020 09:55-0500 Body mass index (BMI) [Ratio] 27.6 kg/m2 Dr. Emily Sanders Work Phone: [facility] Work Phone: 03-26-2020 09:55-0500 Body temperature 98.9 [degF] Dr. Emily Sanders Work Phone: [facility] Work Phone: 03-26-2020 09:55-0500 Body weight 59.[address] Emily Sanders Work Phone: [facility] Work Phone: 03-26-2020 09:55-0500 Diastolic blood pressure 69 mm[Hg] Dr. Emily Sanders Work Phone: [facility] Work Phone: 03-26-2020 09:55-0500 Heart rate 61 /min Dr. Emily Sanders Work Phone: [facility] Work Phone: 03-26-2020 09:55-0500 Respiratory rate 16 /min Dr. Emily Sanders Work Phone: [facility] Work Phone: 03-26-2020 09:55-0500 SaO2% (BldA) [Mass fraction] 95 % Dr. Emily Sanders Work Phone: [facility] Work Phone: 03-26-2020 09:55-0500 Systolic blood pressure 102 mm[Hg] Dr. Emily Sanders Work Phone: [facility] Work Phone: Encounters Encounter Date Encounter Type Care Provider Facility Start: 07-28-2024 End: 07-28-2024 ambulatory Emily Sanders Facility:[facility] Start: 07-28-[address] Gene Braun MD -[facility] Start: 07-19-2024 End: 07-19-[address] Gulshan Jules MD -[facility] Work Phone: Start: 07-19-2024 End: 07-19-[address] Emily Sanders MD Work Phone: [facility] Work Phone: Start: 07-15-2024 End: 07-15-2024 ambulatory EMILY SANDERS MD Facility:[facility] Start: 07-15-2024 End: 07-15-2024 Patient encounter procedure VONDA MUELLER REGIONAL OWNER OPERATOR TRUCK DRIVER-DRUG SAFETY PHYSICIAN [facility] Start: 07-14-2024 End: 07-14-[address] Emily Sanders MD Work Phone: [facility] Work Phone: Start: 07-14-2024 End: 07-14-2024 Patient encounter procedure Vonda Mueller NP-C [facility] Start: 07-14-2024 End: 07-14-2024 ambulatory Vonda Mueller Facility:[facility] Start: 06-30-2024 End: 06-30-[address] Emily Sanders MD Work Phone: [facility] Work Phone: Start: 06-30-2024 End: 06-30-2024 Patient encounter procedure Vonda Mueller NP-C -[facility] Start: 06-29-2024 End: 06-29-2024 Patient encounter procedure Vonda SILVAC -[facility] Work Phone: Start: 06-29-2024 End: 06-30-[address] Emily Sanders MD Work Phone: [facility] Work Phone: Start: 06-27-2024 End: 06-27-[address] Emily Sanders MD Work Phone: [facility] Work Phone: Start: 06-27-2024 End: 06-27-[address] Jorgito Boogie MD -Ultrasound [facility] Work Phone: Start: 06-27-2024 End: 06-27-2024 ambulatory Jorgito Boogie Facility:[facility] Start: 06-20-2024 End: 06-20-2024 Patient encounter procedure Adi Galo [place] -[facility] Work Phone: Start: 06-20-2024 End: 06-20-2024 ambulatory [facility] Facility: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 Emily Sanders MD Work Phone: [facility] Work Phone: Start: 04-27-2024 End: 04-27-[address] Emily Sanders MD -Laboratory, Specimen Work Phone: Start: 04-27-2024 End: 04-27-[address] Emily Sanders MD -[facility] Work Phone: Start: 04-27-2024 End: 04-27-2024 [facility] Facility:[facility] Start: 04-27-2024 End: 04-27-2024 ambulatory [facility] Facility:[facility] Start: 04-25-2024 End: 04-25-[address] Gene Braun MD -[facility] Work Phone: Start: 04-25-2024 End: 04-25-2024 ambulatory [facility] Facility:[facility] Start: 04-22-2024 End: 04-22-[address] Emily Sanders MD Work Phone: [facility] Work Phone: Start: 04-22-2024 End: 04-22-[address] Emily Sanders MD -Sleep Lab Work Phone: Start: 04-22-2024 End: 04-22-2024 ambulatory [facility] Facility:[facility] Start: 04-18-[address] Gene Braun MD -[facility] Start: 04-04-2024 End: 04-04-[address] Emily Sanders MD Work Phone: [facility] Work Phone: Start: 04-04-2024 End: 04-04-[address] Emiyl Sanders MD -Laboratory, [facility] Start: 04-04-2024 End: 04-04-[address] Emily Sanders MD -[facility] Work Phone: Start: 04-04-2024 End: 04-04-2024 ambulatory [facility] Facility:[facility] Start: 04-04-2024 End: 04-04-2024 ambulatory [facility] Facility:[facility] Start: 04-03-2024 End: 04-03-2024 Emergency department patient visit Dr. Emily Sanders MD Work Phone: -Emergency Department Work Phone: Start: 03-31-2024 End: 03-31-2024 Emergency department patient visit Dr. Alli Ding MD -Emergency Department Work Phone: Start: 03-29-2024 End: 03-29-2024 Patient encounter procedure Valentine Roth APRN-[employer] Work Phone: [facility] Comment on above: Influenza A (Primary Dx); Acute cough Start: 03-29-2024 End: 03-29-2024 ambulatory [facility] Start: 03-23-2024 End: 03-23-[address] Jorgito Boogie MD -Laboratory, [place] Work Phone: Start: 03-23-2024 End: 03-23-2024 ambulatory [facility] Facility:[facility] Start: 02-11-2024 End: 02-11-2024 ambulatory [facility] Facility:[facility] Start: 02-11-2024 End: 02-11-2024 Patient encounter procedure Leo Monroe MD Work Phone: OB/Gynecology Comment on above: Fatty liver (Primary Dx); Encounter for screening mammogram for malignant neoplasm of breast; Hormone replacement therapy (HRT) Start: 02-11-2024 End: 02-11-2024 formerly [facility] Facility:[facility] Start: 02-08-2024 End: 02-08-[address] Jorgito Boogie MD -Laboratory, [place] Work Phone: Start: 02-08-2024 End: 02-08-2024 [facility] Facility:[facility] Start: 01-18-2024 ambulatory Ghada Magana Facility:[facility] Start: 01-18-2024 Non-patient / Non-visit Dr. Saba MCGEE -[facility] Start: 01-18-2024 End: 01-18-[address] Ghada Magana MD -[facility], [facility] Work Phone: Start: 01-18-2024 End: 01-18-2024 ambulatory Ghada Magana Facility:[facility] Start: 01-15-2024 End: 01-15-2024 ambulatory LEE KATZ Facility:[facility] Start: 01-15-2024 End: 01-15-2024 Patient encounter procedure Lee Katz DO Work Phone: Obstetrics/Gynecology Comment on above: Abnormal uterine ble eding (AUB) (Primary Dx) Start: 01-14-2024 End: 01-14-[address] Emily Sanders MD -Laboratory, [place] Start: 01-14-2024 End: 01-14-2024 ambulatory [facility] Facility:[facility] Start: 01-12-2024 End: 01-12-[address] Jorgito Boogie MD -Ultrasound, [facility] Work Phone: Start: 01-12-2024 End: 01-12-2024 ambulatory [facility] Facility:[facility] Start: 12-31-2023 End: 12-31-[address] Emily Sanders MD -[facility] Work Phone: Start: 12-31-2023 End: 12-31-2023 ambulatory [facility] Facility:[facility] Start: 12-17-2023 End: 12-17-2023 ambulatory [facility] Facility:[facility] Start: 12-17-2023 End: 12-17-2023 Patient encounter procedure Yennifer Tomas APRN.DRUG SAFETY PHYSICIAN Work Phone: Gynecology Comment on above: Vaginal discharge (P rimary Dx) Start: 12-11-2023 End: 12-11-2023 ambulatory Jennispencer Kellerkeysha Facility:[facility] Start: 12-08-2023 End: 12-08-2023 ambulatory Ghada Magana Facility:[facility] Start: 12-07-2023 End: 12-09-2023 ambulatory Lee Katz DO Work Phone: Obstetrics/Gynecology Start: 12-07-2023 End: 12-09-2023 Patient encounter procedure Lee Katz DO Work Phone: Obstetrics/Gynecology Comment on above: Unable to make the 1 :15 appointment today Unable to make 1:15 appointment today. Start: 12-06-2023 End: 12-06-2023 Telephone encounter Lee Beltre MD Work Phone: Gynecology Start: 11-30-2023 End: 11-30-2023 ambulatory Adi JOHNSON Facility:[facility] Start: 11-30-2023 End: 11-30-2023 ambulatory Adi JOHNSON Facility:[facility] Start: 11-27-2023 End: 12-01-2023 ambulatory Yennifer Tomas REGIONAL 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 Work Phone: Gynecology Comment on above: Stitches sticking ou t of incision Start: 11-24-2023 End: 11-24-2023 Telemedicine consultation with patient Yennifer Tomas APRN.DRUG SAFETY PHYSICIAN Work Phone: Gynecology Start: 11-24-2023 End: 11-24-2023 ambulatory Yennifer Tomas REGIONAL 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 Work Phone: Gynecology Comment on above: Postop check (Primar y Dx); Premature ovarian failure Start: 11-19-2023 End: 11-20-2023 ambulatory Lee Katz DO Work Phone: Obstetrics/Gynecology Comment on above: Question regarding S URGICAL PATHOLOGY Start: 11-13-2023 End: 11-13-2023 Telephone encounter Lee Katz DO Work Phone: [facility] Comment on above: Surgical Followup Start: 11-12-2023 End: 11-12-2023 Telephone encounter Lee aKtz DO Work Phone: Gynecology Comment on above: Post Op Follow Up Start: 11-11-2023 End: 11-11-2023 Telephone encounter Lee Katz DO Work Phone: [facility] Comment on above: Orders Start: 11-10-2023 End: 11-10-2023 ambulatory LEE KATZ Facility:[facility] Start: 11-10-2023 Encounter for other preprocedural examination LEE KATZ [facility] Start: 11-06-2023 Encounter for other preprocedural examination LEE KATZ [facility] Start: 11-06-2023 End: 11-06-2023 Admission to [facility] Pacc Martin 1 Work Phone: Pre Anesthesia Start: 11-06-2023 End: 11-06-2023 ambulatory EMILY SANDERS Facility:[facility] Start: 11-06-2023 End: 11-06-2023 Preprocedural examination done Pac Martin 1 Work Phone: [facility] Work Phone: Start: 11-06-2023 End: 11-09-2023 Telephone encounter Adeline Jama APRN.CNP Work Phone: Pre Anesthesia Comment on above: Pre-operative examin ation (Primary Dx); Leukopenia, unspecified type; Thrombocytopenia (HCC); Fatty liver; Mitral valve prolapse; Basal cell carcinoma (BCC), unspecified site; Mixed anxiety depressive disorder; Obesity, Class I, BMI 30-34.9 Start: 2023 End: 2023 ambulatory Nurse Wire M[employer] Filter Fabricator Work Phone: Gynecology Comment on above: Educational circumst ances (Primary Dx) Start: 2023 End: 2023 Telemedicine consultation with patient Nurse Wire Mesh Filter Fabricator Work Phone: Gynecology Start: 10-29-2023 End: 10-29-2023 ambulatory LEE JOYNERRL Facility:[facility] Start: 10-29-2023 Encounter for other preprocedural examination LEE KATZ [facility] Start: 10-29-2023 End: 11-17-2023 Telephone encounter Lee Katz DO Work Phone: Gynecology Comment on above: Patient Question Start: 10-28-2023 End: 10-28-2023 Patient encounter status Lee Katz DO Work Phone: [facility] Work Phone: Start: 10-28-2023 End: 10-28-2023 Telephone encounter Lee Katz DO Work Phone: Obstetrics/Gynecology Comment on above: Patient Question Start: 10-26-2023 End: 10-26-2023 ambulatory LEO MONROE Facility:[facility] Start: 10-26-2023 End: 10-26-2023 Patient encounter procedure Lee Katz DO Work Phone: Obstetrics/Gynecology Comment on above: Pelvic pain in femal e (Primary Dx); Intramural and subserous leiomyoma of uterus; Preop examination Start: 10-26-2023 End: 10-26-2023 Preprocedural examination done Lee Katz DO Work Phone: [facility] Start: 10-06-2023 End: 10-06-2023 ambulatory Adi JOHNSON Facility:[facility] Start: 10-05-2023 End: 10-05-2023 ambulatory [facility] Facility:[facility] Start: 08-21-2023 End: 08-21-2023 ambulatory [facility] Facility:[facility] Start: 08-21-2023 End: 08-21-2023 ambulatory [facility] Facility:[facility] Start: 08-17-2023 Telephone encounter Lee clancy DO Work Phone: Obstetrics/Gynecology Comment on above: Patient Question Start: 08-14-2023 Telephone encounter Lee clancy DO Work Phone: Obstetrics/Gynecology Comment on above: Appointment Start: 08-12-2023 End: 08-12-2023 ambulatory [facility] Facility:[facility] Start: 08-12-2023 End: 08-12-2023 Patient encounter procedure Leo Monroe MD Work Phone: OB/Gynecology Comment on above: Intramural and subse bess leiomyoma of uterus (Primary Dx); Pelvic pressure in female; Urinary frequency; Premature ovarian failure Start: 08-06-2023 End: 08-06-2023 ambulatory [facility] Facility:[facility] Start: 06-30-2023 Telephone encounter Sherly valencia APRN.CNP Work Phone: OB/Gynecology Comment on above: Results; Appointment Start: 06-26-2023 End: 06-26-2023 ambulatory [facility] Facility:[facility] Start: 06-26-2023 End: 06-26-2023 Subsequent hospital visit by physician [facility] Work Phone: Radiology Comment on above: Breakthrough bleedin g on control pills [N92.1] Start: 05-29-2023 End: 05-29-[address] Emily Sanders Work Phone: [facility] Work Phone: Start: 05-29-[address] Manuela Sanders Work Phone: [facility] Start: 05-29-2023 End: 05-29-2023 Encounter for general adult medical examination without abnormal findings Dr. Emily Sanders Work Phone: [facility] Start: 05-29-2023 End: 05-29-[address] Emily Sanders Work Phone: [facility] Work Phone: Start: 05-19-2023 End: 05-19-2023 Patient encounter procedure Sherly Ng APRN.CNP Work Phone: OB/Gynecology Comment on above: Encounter for gyneco logical examination (general) (routine) without abnormal findings (Primary Dx); Premature ovarian failure; Breakthrough bleeding on control pills; Surveillance for control, oral contraceptives; Uterine leiomyoma, unspecified location; Obesity, Class I, BMI 30-34.9 Start: 05-19-2023 End: 05-19-2023 Patient encounter status Sherly Ng APRN.CNP Work Phone: [facility] Start: 04-29-[address] Neena Sanders Work Phone: [facility] Oncology Start: 04-28-2023 End: 04-28-[address] Emily Sanders Work Phone: [facility] Work Phone: Start: 02-10-2023 End: 02-10-[address] Emily Sanders Work Phone: [facility] Work Phone: Start: 02-10-2023 End: 02-10-[address] Emily Sanders Work Phone: [facility]-Laboratory, [facility] Start: 02-06-2023 End: 02-06-[address] Emily Sanders Work Phone: [facility] Work Phone: Start: 02-01-2023 End: 02-02-2023 Emergency department patient [facility] Start: 12-17-2022 End: 12-17-[address] Emily Sanders Work Phone: [facility] Work Phone: Start: 12-17-2022 End: 12-17-[address] Emily Sanders Work Phone: [facility] Work Phone: Start: 11-03-2022 End: 11-03-[address] Emily Sanders Work Phone: [facility] Work Phone: Start: 10-15-2022 End: 10-15-2022 Patient encounter procedure Negrito Felix CHRISTOPHER.DRUG SAFETY PHYSICIAN Work Phone: Telemedicine Comment on above: APPOINTMENT CANCELLE D (Primary Dx) Start: 10-15-2022 End: 10-15-2022 Telemedicine consultation with patient Negrito Felix REGIONAL 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 Work Phone: [facility] Start: 05-09-2022 End: 05-09-2022 Patient encounter procedure Sherly Ng APRN.DRUG SAFETY PHYSICIAN Work Phone: OB/Gynecology Comment on above: Encounter for gyneco logical examination (general) (routine) without abnormal findings (Primary Dx); Premature ovarian failure; Breakthrough bleeding on control pills Start: 05-09-2022 End: 05-09-2022 Patient encounter status Sherly Ng APRN.DRUG SAFETY PHYSICIAN Work Phone: OB/Gynecology Start: 01-17-2022 End: 01-17-2022 Patient encounter procedure Sherly Rhett MCCARTYDRUG SAFETY PHYSICIAN Work Phone: OB/Gynecology Comment on above: Friable cervix (Prim alec Dx); Breakthrough bleeding on OCPs; Vagina itching Start: 12-13-2021 End: 12-13-[address] Emily Sanders Work Phone: [facility] Work Phone: Start: 12-13-2021 End: 12-13-[address] Emily Sanders Work Phone: [facility] Start: 11-15-2021 End: 11-15-[address] Emily Sanders Work Phone: [facility] Start: 10-18-2021 End: 10-18-2021 Subsequent hospital visit by physician [employer] [facility] (I-Stat/1.5t) Work Phone: Radiology Start: 09-24-2021 End: 09-24-[address] Emily Sanders Work Phone: [facility] Internal Medicine Start: 08-22-2021 End: 08-22-[address] Emily Sanders Work Phone: [facility]-Physical Therapy Start: 07-15-2021 End: 07-15-[address] Emily Sanders Work Phone: [facility] Start: 06-03-[address] Neena Sanders Work Phone: [facility]-Physical Therapy Start: 07-10-2021 End: 07-10-[address] Emily Sanders Work Phone: [facility]-Sleep Lab Start: 07-01-2021 End: 07-01-[address] Emily Sanders Work Phone: [facility] Start: 05-07-2021 End: 05-07-2021 Patient encounter procedure Leo Monroe MD Work Phone: OB/Gynecology Comment on above: Encounter for gyneco logical examination (general) (routine) without abnormal findings (Primary Dx); Premature ovarian failure; Screening for cervical cancer; Encounter for screening for human papillomavirus (HPV) Start: 05-07-2021 End: 05-07-2021 Patient encounter status Leo Monroe MD Work Phone: OB/Gynecology Start: 04-18-2021 Refill Natalya bustos APRN.CNM Work Phone: OB/Gynecology Comment on above: Refill Request Start: 04-17-[address] Neena Sanders Work Phone: [facility] Oncology Start: 04-17-2021 End: 04-17-[address] Emily Sanders Work Phone: [facility] Start: 01-19-2021 End: 01-19-2021 Emergency department patient visit James Camacho [facility] Emergency 08 Start: 12-04-[address] Manuela Sanders Work Phone: [facility] Procedures Date Procedure Procedure Detail Performing Clinician Start: 07-14-2024 Total iron binding c apacity measurement Dr. Emily Sanders MD Work Phone: Start: 06-30-[address] Robert Sanders MD Work Phone: Comment on above: The atypical pANCA p attern has been observed in asignificant percentage of patients with ulcerative colitis,primary sclerosing cholangitis and autoimmune hepatitis. Start: 06-30-2024 Hepatitis A virus an tibody, total measurement Dr. Emily Sanders MD Work Phone: Comment on above: Comment: The HAV tot al antibody assay detects both IgG andIgM but does not differentiate between them. A negativeresult suggests susceptibility to infection. A positiveresult could be due to vaccination, previously resolvedinfection or active infection. Testing for HAV IgM shouldbe performed if active HAV infection is suspected. Labcorpoffers profiles that will automatically reflex positive HAVtotal antibody results to IgM (e.g., panel #[id number] HAVAntibody w/ Rfx).Performed at: [facility] [address] [id number] Director: Jorgito Cunningham PhD, Phone: [phone] Start: 06-30-2024 Hepatitis C antibody measurement Dr. Emily Sanders MD Work Phone: Comment on above: Reactive: Presumptiv e evidence of antibodies to HCV. Follow CDC recommendations for supplemental testing.Non-Reactive: Antibodies to HCV were not detected; does not exclude the possibility of exposure to HCVReactive Results are presumptive evidence of antibodies to HCV. Follow CDC recommendations for supplemental testing.Order confirmation testing: HCV Quant by PCR testing - HCVPCR #[id number] Non Reactive: < 0.8 Equivocal: >/= 0.8 to < 1.0 Reactive: >/= 1.0The CDC requires that a reactive/equivocal HCV antibody result be sent out for confirmation. HCV Quant by PCR testing. Start: 06-30-[address] Remy Sanders MD Work Phone: Comment on above: Test Ordered: [id number] Enhanced Liver Fibrosis (ELF)ELF(TM) Score 9.04 BN Reference Range: <9.80ELF(TM) Score Interpretation:Risk cut-offs to assess the likelihood of progressionto cirrhosis and liver-related clinical events within3.9 years following baseline ELF score (IQR: 14.0-22.4months)*: Lower risk < 9.80 Mid risk 9.80 - 11.29 Higher risk >11.29Note: The ELF(TM) Score is a unitless numerical value.*Howard SA, Truman VW, Ana M T, et al. Selonsertibfor patients with bridging fibrosis or compensatedcirrhosis due to COELHO: Results from randomized phaseIII STELLAR trials. J Hepatol. 2020 Aug;73(1):26-39.Performed at: [facility] [address] [id number] Director: Montserrat Gibbons MD, Phone: [phone] at: [facility] [address] [id number] Director: Jorgito Cunningham PhD, Phone: [phone] Start: 06-30-2024 Total iron binding c apacity measurement Dr. Emily Sanders MD Work Phone: Start: 06-27-2024 Ultrasound elastogra phy of liver Dr. Emily Sanders MD Work Phone: Start: 04-27-2024 Urnls dip stick/tabl et reagent auto microscopy Dr. Emily Sanders MD Work Phone: Start: 04-18-[address] Emily Sanders MD Work Phone: Start: 04-03-2024 X-ray of chest, PA a nd lateral views Dr. Emily Sanders MD Work Phone: Start: 04-03-[address] Emily Sanders MD Work Phone: Start: 04-03-2024 Measurement of renal function Dr. Emily Sanders MD Work Phone: Comment on above: GFR Calc Start: 03-31-2024 X-ray of chest, PA a nd lateral views Dr. Emily Sanders MD Work Phone: Start: 03-29-2024 POCT SARS-COV-2/FLU/ RSV PCR SYMPTOMATIC Valentine Roth REGIONAL OWNER OPERATOR TRUCK DRIVER-DRUG SAFETY PHYSICIAN Work Phone: Start: 02-11-2024 Dual energy X-ray absorptiometry Dr. Emily Sanders MD Work Phone: Start: 01-18-2024 Cardiac computed vince ography for calcium scoring Dr. Emily Sanders MD Work Phone: Start: 01-12-[address] Emily Sanders MD Work Phone: Start: 10-29-2023 Antibody screen LEE CERVANTES Comment on above: Order Comment: Speci men Type: BLOOD SPECIMEN Ordering Facility: [facility] Address: [address] [place] [address] Performed By: #### T SCR30 #### CC MAIN BLOOD BANK [facility] [id number] [address] [place], [place] [address]K [address] OF [place] Start: 08-06-[address] Emily Sanders MD Work Phone: Start: 08-06-2023 Measurement of renal function Dr. Emily Sanders MD Work Phone: Comment on above: GFR Calc Start: 04-29-[address] Neena Sanders Work Phone: Start: 04-29-2023 Urnls dip stick/tabl et reagent auto microscopy Dr. Emily Sanders MD Work Phone: Start: 04-28-[address] Neena Sanders MD Work Phone: Start: 04-28-2023 Total iron binding c apacity measurement Dr. Emily Sanders MD Work Phone: Start: 02-10-[address] Neena Sanders Work Phone: Start: 02-02-2023 Computed tomography of abdomen and pelvis with intravenous contrast Dr. Emily Sanders Work Phone: Start: 02-01-[address] Neena Sanders Work Phone: Start: 12-17-[address] Neena Sanders Work Phone: Start: 12-13-2021 MRI of cervical spine D rRobert Sanders Work Phone: Start: 10-18-2021 Mri spinal canal cer vical w/o contrast matrl [facility] Provider Start: 07-01-2021 X-ray of cervical spine Dr. Emily Sanders Work Phone: Start: 05-07-2021 Microscopic observat ion [Identifier] in Cervix by Cyto stain Valentine Roth APRN-DRUG SAFETY PHYSICIAN Work Phone: H/O: hysterectomy S/P hysterectomy Dr. dEuardo Sanders MD Work Phone: Comment on above: 11/10/2023 Plan of Treatment Date Care Activity Detail Author Start: 2034 Zoster Vaccines (1 of 2) Zoste r Vaccines (1 of 2) [facility] Start: 08-16-2029 DTaP/Tdap/Td Vaccine s (3 - Td or Tdap) DTaP/Tdap/Td Vaccines (3 - Td or Tdap) [facility] Start: 08-16-2029 Urine microalbumin profile [facility] Start: 05-07-2026 HPV TESTING HPV TESTING [facility] Start: 05-07-2026 PAP TESTING PAP TESTING [facility] Start: 05-07-2026 Screening for malign ant neoplasm of cervix [facility] Start: 05-23-2025 End: 05-23-2025 Patient encounter procedure 05/23/2025 10:30 AM EDT Office Visit OB/Gynecology [address] [place] [id number] Sherly Ng APRN.DRUG SAFETY PHYSICIAN [address] [place] [id number] ANNUAL OB/Gynecology Comment on above: ANNUAL Start: 11-03-2024 End: 11-03-2024 Patient encounter procedure 11/03/2024 2:50 PM EDT Appointment Mammogram [address] [address] Encounter for screening mammogram for malignant neoplasm of breast [Z12.31] Mammogram Comment on above: Encounter for screen ing mammogram for malignant neoplasm of breast [Z12.31] Start: 09-12-2024 HPV TESTING HPV TESTING [facility] Start: 09-12-2024 PAP TESTING PAP TESTING [facility] Start: 07-28-2024 [facility] Start: 06-30-2024 Procedure [facility] Start: 05-20-2024 End: 05-20-2024 Patient encounter procedure 05/20/2024 4:00 PM EDT Office Visit OB/Gynecology [address] [place] [address] Sherly Ng APRN.DRUG SAFETY PHYSICIAN [address] [place] [address] annual exam OB/Gynecology Comment on above: annual exam Start: 05-07-2024 Screening for malign ant neoplasm of cervix [facility] [facility] Start: 04-27-2024 Patient referral [facility] Work Phone: Start: 04-22-2024 Polysomnography [facility] Start: 04-03-2024 End: 04-03-2024 [facility] Start: 03-31-2024 Respiratory secretio n precautions [facility] Start: 01-18-2024 Following clinical p athway protocol [facility] Start: 01-15-2024 End: 01-15-2024 Patient encounter procedure 01/15/2024 1:45 PM EST Office Visit Obstetrics/Gynecology [address] [place] [address] Lee Katz DO [address] [place] [address] 6 WEEK POST OP Obstetrics/Gynecolo gy Comment on above: 6 WEEK POST OP Start: 12-17-2023 End: 12-17-2023 Patient encounter procedure 12/17/2023 3:00 PM EST Office Visit Gynecology [address] [place] [address] Yennifer Tomas APRN.DRUG SAFETY PHYSICIAN [address] [place] [address] vaginal cuff check Gynecology Comment on above: vaginal cuff check Start: 11-24-2023 End: 11-24-2023 ambulatory 11/24/2023 4:00 PM EDT [facility] Gynecology [address] [place] [address] Yennifer Tomas APRN.DRUG SAFETY PHYSICIAN [address] [place] [address] 2 WEEK POST OP Gynecology Comment on above: 2 WEEK POST OP Start: 11-10-2023 End: 11-10-2023 Admission to same day surgery center 11/10/2023 2:05 PM EDT - 11/10/2023 5:54 PM EDT Surgery Admitting [address] [place] [address] Lee Katz DO [address] [place] [address] LAPAROSCOPIC HYSTERECTOMY TOTAL FOR UTERUS 250 G OR LESS W/REMOVAL TUBE(S) AND/OR OVARY(S) Admitting Comment on above: LAPAROSCOPIC HYSTERE CTOMY TOTAL FOR UTERUS 250 G OR LESS W/REMOVAL TUBE(S) AND/OR OVARY(S) Start: 11-10-2023 Subsequent hospital visit by physician 11/10/2023 2:05 PM EDT Hospital Encounter Admitting [address] [place] [address] Lee Katz DO [address] [address] Intramural and subserous leiomyoma of uterus [D25.1, D25.2], Pelvic pain in female [R10.2], Preop examination [Z01.818] Admitting Comment on above: Intramural and subse bess leiomyoma of uterus [D25.1, D25.2], Pelvic pain in female [R10.2], Preop examination [Z01.818] Start: 11-10-2023 End: 11-10-2023 Cystourethroscopy [facility] Start: 11-10-2023 End: 11-10-2023 Laps total hysterect 250 gm/< w/rmvl tube/ovary [facility] Start: 11-06-2023 End: 11-06-2023 Anesthesia consultation 11/06/2023 1:40 PM EDT PAT Pre Anesthesia [address] [place] [address] 1, Pacc [address] [place] [address] PACC Pre Anesthesia Comment on above: PACC Start: 2023 End: 2023 ambulatory 2023 2:00 PM EDT [facility] Gynecology [address] [address] [employer]ricator, Nurse [address] [place], [place] [id number] RN TEACHING Gynecology Comment on above: RN TEACHING Start: 10-29-2023 End: 10-29-2023 ambulatory 10/29/2023 4:00 PM EDT Results Only [facility] [address] [place] [address] [facility] Start: 10-28-2023 End: 10-27-2024 CBC W Auto Differential panel - Blood COMPLETE BLOOD COUNT AND DIFFERENTIAL Lab Routine Preop testing Expected: 10/28/2023, Expires: 10/27/2024 [facility] Work Phone: Comment on above: Expected: 10/28/2023 , Expires: 10/27/2024 Start: 10-28-2023 End: 10-27-2024 TYPE AND SCREEN,30 DAY TYPE AND SCREEN,30 DAY Blood Bank Routine Preop testing Expected: 10/28/2023, Expires: 10/27/2024 [facility] Comment on above: Expected: 10/28/2023 , Expires: 10/27/2024 Start: 10-26-2023 End: 10-26-2023 Patient encounter procedure 10/26/2023 9:00 AM EDT Office Visit Obstetrics/Gynecology [address] [address] Lee Katz DO [address] [place] [address] Intramural and subserous leiomyoma of uterus [D25.1, D25.2] Obstetrics/Gynecolo gy Comment on above: Intramural and subse bess leiomyoma of uterus [D25.1, D25.2] Start: 10-11-2023 COVID-19 Vaccine ( season) COVID-19 Vaccine () [facility] Start: 10-11-2023 Covid-19 Vaccine ( season) Covid-19 Vaccine ( season) [facility] Start: 10-11-2023 Covid-19 Vaccine ( season) Covid-19 Vaccine () [facility] Start: 10-11-2023 Influenza vaccination C [facility] Start: 08-12-2023 End: 08-12-2023 Patient encounter procedure 08/12/2023 11:40 AM EDT Office Visit OB/Gynecology [address] [place] [address] Leo Barnett MD [address] [place] [address] consult hysterectomy OB/Gynecology Comment on above: consult hysterectomy Start: 05-19-2023 End: 05-18-2024 US Pelvis PELVIC US [facility] Routine Breakthrough bleeding on control pills Uterine leiomyoma, unspecified location Expected: 05/19/2023, Expires: 05/18/2024 [facility] Work Phone: Comment on above: Expected: 05/19/2023 , Expires: 05/18/2024 Start: 02-09-2023 Behavioral Health Screening Behavioral Health Screening [facility] Start: 02-02-2023 End: 02-02-2023 [facility] Start: 02-01-2023 Bacteria identified in Urine by Culture Urine Culture [facility] Start: 12-17-2022 [facility] Start: 12-17-2022 Urine culture Urine Culture [facility] Start: 10-10-2022 Covid-19 Vaccine () Covid-19 Vaccine () [facility] Start: 10-10-2022 Influenza vaccination INFLUENZA (#1) [facility] Start: 02-09-2022 DEPRESSION ASSESSMENT DEPRESSION ASS ESSMENT [facility] Start: 10-10-2021 Influenza vaccination INFLUENZA (#1) [facility] Start: 07-01-2021 Patient referral [facility] Work Phone: Start: 05-26-2021 COVID-19 VACCINE (3 - Booster for Pfizer series) COVID-19 VACCINE (3 - Booster for Pfizer series) [facility] Start: 02-20-2021 COVID-19 VACCINE (3 - Booster for Pfizer series) COVID-19 VACCINE (3 - Booster for Pfizer series) [facility] Start: 02-20-2021 COVID-19 VACCINE (3 - Pfizer series) COVID-19 VACCINE (3 - Pfizer series) [facility] Start: 02-09-2021 DEPRESSION ASSESSMENT DEPRESSION ASS ESSMENT [facility] Start: 01-19-2021 End: 01-20-2022 [facility] Start: 10-10-2020 Influenza vaccination INFLUENZA (#1) [facility] Start: 2005 Screening for malign ant neoplasm of cervix HPV/Cotest [facility] Start: 11-03-2003 Hepatitis A Vaccines (1 of 2 - Risk 2-dose series) Hepatitis A Vaccines (1 of 2 - Risk 2-dose series) [facility] Start: 11-03-2003 Hepatitis B Vaccine (1 of 3 - 19+ 3-dose series) Hepatitis B Vaccine (1 of 3 - 19+ 3-dose series) [facility] Start: 11-03-2003 Hepatitis B Vaccines (1 of 3 - 19+ 3-dose series) Hepatitis B Vaccines (1 of 3 - 19+ 3-dose series) [facility] Start: 11-03-2003 Urine microalbumin profile DTAP,TDAP ,TD (1 - Tdap) [facility] Start: 2002 Anxiety Screening Anxiety Screening [facility] Start: 2002 Depression Screening Depression Scre ening [facility] Start: 2002 Diabetes mellitus screening Diabetes Screening [facility] Start: 2002 HEPATITIS C SCREENING HEPATITIS C [facility] Start: 2002 Hepatitis C screening Hepatitis C [facility] Start: 2002 HIV SCREENING HIV SCREENING [facility] Start: 2002 HIV screening HIV Screening [facility] Start: 1997 Varicella vaccination Varicell a Vaccines (1 of 2 - 13+ 2-dose series) [facility] Start: 1996 [facility] DEPRESSION SCREEN[facility] Start: 1989 COVID-19 VACCINE (1) COVID-19 VACCIN E (1) [facility] Start: 1985 MMR Vaccines (1 of 1 - Standard series) MMR Vaccines (1 of 1 - Standard series) [facility] Start: 1984 HEPATITIS B (1 of 3 - 3-dose series) HEPATITIS B (1 of 3 - 3-dose series) [facility] Start: 1984 HIV screening HIV Screening [facility] Start: 1984 Lipid panel Lipid Panel [facility] Start: 1984 Yearly Adult Physical Yearly Adult P hysical [facility] Alpha 1 antitrypsin [Mass/volume] in Serum or Plasma [facility] BACTERIAL VAGINOSIS AMPLIFICATION BACTERIAL VAGINOSIS AMPLIFICATION Lab Routine Friable cervix Breakthrough bleeding on OCPs Vagina itching 01/17/2022 12:48 PM EST [facility] Work Phone: BACTERIAL VAGINOSIS NAAT BACTERI AL VAGINOSIS NAAT Lab Routine Vaginal discharge 12/17/2023 3:25 PM EST [facility] Basic metabolic 2008 panel with ionized calcium - Serum or Plasma [facility] Bilirubin.direct [Mass/volume] in Serum or Plasma [facility] C reactive protein [Mass/volume] in Serum or Plasma [facility] JORDYN / TRICHOMONA S AMPLIFICATION JORDYN / TRICHOMONAS AMPLIFICATION Microbiology Routine Friable cervix Breakthrough bleeding on OCPs Vagina itching 01/17/2022 12:48 PM EST [facility] Work Phone: JORDYN/TRICHOMONAS NAAT JORDYN /TRICHOMONAS NAAT Lab Routine Vaginal discharge 12/17/2023 3:25 PM EST [facility] Work Phone: CBC W Auto Different ial panel - Blood [facility] CBC W Auto Different ial panel - Blood [facility] CBC W Auto Different ial panel - [facility] Comprehensive metabo lic 1999 panel - Serum or Plasma [facility] Comprehensive metabo lic 1999 panel - Serum or Plasma [facility] Cystourethroscopy CYSTOSCOPY Int ramural and subserous leiomyoma of uterus Pelvic pain in female Preop examination SP OR End: 03-12-2025 DBT Breast - bilateral screening GUSTAVO SCREENING W LOW Radiology Routine Encounter for screening mammogram for malignant neoplasm of breast 1 Occurrences starting 02/11/2024 until 03/12/2025 [facility] Work Phone: Comment on above: 1 Occurrences starti ng 02/11/2024 until 03/12/2025 End: 06-19-2025 DBT Breast - bilateral screening GUSTAVO SCREENING W LOW Radiology Routine Encounter for screening mammogram for breast cancer 1 Occurrences starting 05/20/2024 until 06/19/2025 [facility] Work Phone: Comment on above: 1 Occurrences starti ng 05/20/2024 until 06/19/2025 Ferritin [Mass/volum e] in Serum or Plasma [facility] H&P for surgery H&P FOR SURGERY Procedures Routine Intramural and subserous leiomyoma of uterus Pelvic pain in female Preop examination Ordered: 10/26/2023 [facility] Comment on above: Ordered: 10/26/2023 Hemoglobin A1c/Hemoglobin.total in Blood [facility] Hemoglobin A1c/Hemoglobin.total in Blood [facility] Hepatitis A virus Ab [Presence] in Serum [facility] Hepatitis B virus co re Ab [Presence] in Serum [facility] Hepatitis B virus uribe rface Ab [Presence] in Serum [facility] Hepatitis C antibody measurement [facility] Iron and Iron bindin g capacity panel - Serum or Plasma [facility] Lactate dehydrogenas e measurement [facility] Laps total hysterect 250 gm/< w/rmvl tube/ovary LAPAROSCOPIC HYSTERECTOMY TOTAL FOR UTERUS 250 G OR LESS W/REMOVAL TUBE(S) AND/OR OVARY(S) Intramural and subserous leiomyoma of uterus Pelvic pain in female Preop examination SP OR Lipid 1995 panel - S cleve or Plasma [facility] Lipid 1995 panel - S cleve or Plasma [facility] Mitochondria Ab [Pre sence] in Serum [facility] MR Biliary ducts and Pancreatic duct WO contrast [facility] MR Biliary ducts and Pancreatic duct WO contrast [facility] MR Cervical spine [facility] Work Phone: PAP FLUID CERVICAL SCREENING PAP FLUID CERVICAL SCREENING Lab Routine Screening for cervical cancer Encounter for screening for human papillomavirus (HPV) 05/07/2021 2:45 PM EDT [facility] Work Phone: Patient Education [facility] Work Phone: Patient referral [facility] Work Phone: Procedure [facility] Procedure [facility] Prothrombin time [facility] REFER FOR ADMIT INTERVIEW REFER FOR ADMIT INTERVIEW Procedures Routine Intramural and subserous leiomyoma of uterus Pelvic pain in female Preop examination Ordered: 10/26/2023 [facility] Work Phone: Comment on above: Ordered: 10/26/2023 Smooth muscle Ab [Presence] in Serum [facility] Urinalysis complete panel - Urine [facility] End: 06-17-2024 US Pelvis transvaginal US FEMALE PELVIS TRANSVAG Radiology Routine Breakthrough bleeding on control pills Uterine leiomyoma, unspecified location 1 Occurrences starting 05/19/2023 until 06/17/2024 [facility] Work Phone: Comment on above: 1 Occurrences starti ng 05/19/2023 until 06/17/2024 US Pelvis transvaginal US FEMALE PELVIS TRANSVAG Radiology Routine Breakthrough bleeding on control pills Uterine leiomyoma, unspecified location 06/26/2023 3:34 PM EDT [facility] Work Phone: [facility] Immunizations Immunization Date Immunization Notes Care Provider Socorro figueroa 12-26-2020 Covid (Pfizer) Dr. Emily Sanders MD Work Phone: [facility] 12-15-2020 Influenza, injectabl e, Madin Delmis Canine Kidney, preservative free, quadrivalent Dr. Emily Sanders MD Work Phone: [facility] 12-15-2020 influenza virus vaccine, unspecified formulation Sherly Ng APRN.[employer] Work Phone: [facility] 12-05-2020 Covid (Pfizer) Dr. Emily Sanders MD Work Phone: [facility] 12-02-2019 influenza, injectable,quadrivalent , preservative free, pediatric Dr. Emily Sanders Work Phone: [facility] 12-02-2019 influenza, seasonal, injectable, preservative free Dr. Emily Sanders MD Work Phone: [facility] 12-02-2019 Flucelvax Quad [id number] (PF) (flu vac qs 2020(4 yr up)CD(PF)) 60 mcg ([address] Emily Sanders Work Phone: [facility] Work Phone: 08-17-2019 diphtheria, tetanus toxoids and acellular pertussis vaccine, unspecified formulation Dr. Emily Sanders Work Phone: [facility] Work Phone: 08-17-2019 tetanus toxoid, redu zhane diphtheria toxoid, and acellular pertussis vaccine, adsorbed Dr. Emily Sanders Work Phone: [facility] Work Phone: Payers Date Payer Category Payer Private Health Insurance [id number] 2023 Self-pay [id number] 2019 Self-pay [id number] 2006 [facility] ANTHEM BS FEP PPO [id number] 2006 [facility] [id number] 2006 Unknown 2006 Unknown ANTHEM ANTHEM BC BS FEP PPO [id number] 2006-Present [phone] [facility] [id number] [place] [address] PPO [id number] 2006 Unknown [id number] 1984 Unknown [id number] 2.16.840.1.548727.3.579. 2.1243 1984 Unknown [id number] 2.16.840.1.881118.3.579. 2.627 Unknown [id number] 2.16.840.1.823147.3.579. 2.462 Unknown [id number] 2.16.840.1.765781.3.579. 2.462 Unknown [id number] 2.16.840.1.284579.3.579. 2.462 Unknown [id number] 2.16.840.1.112686.3.579. 2.462 Unknown [id number] 2.16.840.1.069202.3.579. 2.462 Unknown [id number] 2.16.840.1.736958.3.579. 2.462 Unknown [id number] 2.16.840.1.176349.3.579. 2.462 Unknown [id number] 2.16.840.1.551359.3.579. 2.462 Unknown [id number] 2.16.840.1.394880.3.579. 2.462 Unknown [id number] 2.16.840.1.076256.3.579. 2.462 Unknown [id number] 2.16.840.1.270862.3.579. 2.462 Unknown [id number] 2.16.840.1.232976.3.579. 2.462 Unknown [id number] 2.16.840.1.712331.3.579. 2.462 Unknown [id number] 2.16.840.1.235245.3.579. 2.462 Unknown [id number] 2.16.840.1.325972.3.579. 2.462 Unknown [id number] 2.16.840.1.696470.3.579. 2.462 Unknown [id number] 2.16.840.1.414451.3.579. 2.462 Unknown [id number] 2.840.1.298978.3.579. 2.462 Unknown [id number] 2..840.1.729857.3.579. 2.462 Unknown [id number] 2.840.1.810292.3.579. 2.462 Unknown [id number] 2.840.1.469862.3.579. 2.462 Unknown [id number] 2.840.1.327699.3.579. 2.462 Unknown [id number] 2.840.1.934587.3.579. 2.462 Unknown [id number] 2.840.1.255721.3.579. 2.462 Unknown [id number] 2.840.1.356295.3.579. 2.462 Unknown [id number] 2.840.1.327181.3.579. 2.462 Unknown [id number] 2.840.1.136441.3.579. 2.462 Unknown [id number] 2.840.1.178363.3.579. 2.462 Unknown [id number] 2.16.840.1.606205.3.579. 2.462 Unknown [id number] 2.16.840.1.807460.3.579. 2.462 Unknown [id number] 2.16.840.1.272738.3.579. 2.462 Unknown [id number] 2.840.1.346455.3.579. 2.462 Unknown [id number] 2.16.840.1.653627.3.579. 2.462 Social History Date Type Detail Facility [facility] Start: 07-15-2021 End: 02-06-2023 Tobacco smoking consumption unknown [facility] Start: 03-14-2019 End: 06-29-2024 Tobacco smoking status NHIS Never smoked tobacco [facility] Start: 03-14-2019 End: 01-17-2022 Tobacco use and exposure Smokeless tobacco non-user [facility] Start: 03-16-2020 End: 05-20-2024 Alcohol intake Lifetime non-drinker (finding) [facility] Start: 09-13-2019 History SDOH Alcohol Frequency 1 [facility] Start: 1985 Sex Assigned At Not on file [facility] Start: 04-08-2021 End: 03-29-2024 Exposure to SARS-CoV-2 (event) Not sure [facility] Start: 1985 Sex Assigned At Female [facility] Start: 03-26-2020 Non-smoker [facility] Start: 09-13-2019 End: 06-20-2022 History of Social function [facility] Start: 09-13-2019 End: 06-20-2022 Alcohol Use Disorder Identification Test - Consumption [AUDIT-C] [facility] How often to you hav e a drink containing alcohol? Never [facility] Average Number of Drinks Not on file [facility] Start: 04-30-2021 Gender identity Identifies as female gender (finding) [facility] Start: 10-28-2023 Sexual orientation Heterosexual (finding) [facility] Start: 04-15-2024 End: 05-05-2024 Sex Female (finding) [facility] Mental Status Date Assessment Result Facility 04-03-2024 Cognitive function Voice/Name [facility] Work Phone: 03-31-2024 Cognitive function Level Of Cons ciousness Awake;Alert;Appropriate [facility] Work Phone: 01-18-2024 Cognitive function Voice/Name [facility] Work Phone: Clinical Notes 04-18-2021 to 07-15-2024 Note Date & Type Note Facility 07-15-2024 Note Exam Date Time Procedure Performing Provider Status 07/15/24 4:20 PM [facility]; Auth (V erified) [id number] ORIGINAL EXAMINATION: MRCP 07/15/2024 4:21 pm TECHNIQUE: After initial T2 axial and coronal images, thick slab, thin slab and 3D coronal MRCP sequences were obtained without the administration of intravenous contrast. MIP images are provided for review. COMPARISON: None HISTORY: ORDERING SYSTEM PROVIDED HISTORY: Reason for Exam: 8 MM CBD, PRURITIS, ELEVATED ALP, RO PBC; OTHER SPECIFIEID DISEASE OF BILARY TRACT, ELEVATED LEVELS OF LIVER TRANSAMINASE, STEATOHEPATITIS FINDINGS: The intrahepatic bile ducts are normal in caliber with no dilatation. The common bile duct measures 3-4 mm in diameter, normal. No defect is evident within it to suggest stone. Pancreatic duct is unremarkable with no dilatation seen. No additional contributory finding. IMPRESSION: No biliary dilatation and no evidence for choledocholithiasis. Interpreted by: Thao Mijares MD Preliminary Report By: Thao Mijares MD Electronically signed By Thao Mijares MD Dictated Date: 07/15/2024 4:25:56 PM Prelim Date: 07/15/2024 4:28:26 PM Sign Date: 07/15/2024 4:28:26 PM Ordering Provider: [facility]05-19-2025 Radiology Diagnostic study note [facility] Services [address] [place], [place] [id number] ABD Limited w/ Elastography MR#: [id number] Acct: [id number] Name: VIOLET HERNANDEZ Rep #: [id number] : 1985 F 38 From: Trell Nina MD PCP: Dr. Emily Sanders MD Status: R EG CLI Study:ABD Limited w/ Elastography Date of Exa m: 06/27/24 Exam# [id number] Ordering Dr: Carlos Boogie MD PROCEDURE: ABD LIMITED W/ ELASTOGRAPHY REASON FOR EXAM: FATTY LIVER COMPARISON: Prior study dated January 12, 2024. TECHNIQUE: Right upper quadrant abdominal ultrasound. [facility] shear wave elastography for non-invasive assessment of liver tissue stiffness. Misa EPIQ Elite. FINDINGS: LIVER: Size: Unremarkable Length: 14.1 cm Echotexture: Diffusely echogenic suggesting fatty infiltration Contour: Normal Lesions: None identified Elastography: EQI Med: 6.8 kPa EQI Med Benjamin: 1.5 m/s IQR/Med: 7.5 %* GALLBLADDER: Normal COMMON BILE DUCT: Dilated measuring up to 8.8 mm . PANCREAS: Normal Visualized portions of the right kidney are unremarkable. No right upper quadrant ascites. US/ABD Limited w/ Elastography IMPRESSION: [id number] HEPATIC FIBROSIS Reference Values: SRU <1.37 m/s (5.7kPa): No to mild fibrosis 1.37 m/s - 2.2 m/s: Moderate to severe fibrosis >2.2 m/s (15kPa): Significant fibrosis / cirrhosis METAVIR Score F2 or higher: 1.34 m/s (5.7kPa) F3 or higher: 1.55 m/s (7.3kPa) F4: 1.80 m/s (10kPa) * If the IQR/Med is >30%, the variance in the measurements is a large and the accuracy of the measurement may be in question. Reading Location: [place] [address] CC: Dr. Emily Sanders MD; Dr. Jorgito Boogie MD ~ Range Manager: Signed [facility]04-28-2025 Telephone encounter Note* Telephone Encounter - Janette Bullock RN - 06/06/2024 2:12 PM EDT Called Patient. Verified name and . Patient reports that she is still using this medication and that it's helpful. Pharmacy verified Refill(s) request: Requested Prescriptions Pending Prescriptions Disp Refills SHAYE 0.1 mg/24 hr patch [Pharmacy Med Name: Shaye 0.1 MG/24HR Transdermal Patch Twice Weekly] 24 patch 0 Sig: APPLY 1 PATCH TOPICALLY TWICE A WEEK DIRECTED Request from: Pharmacy Last order: estradiol (VIVELLE-DOT) 0.1 mg/24 hr patch Apply 1 Patch as directed two times a week. 24 Patch 1 ordered 01/15/2024 07/13/2024 Last visit: last office visit with Dr. Katz on 01/14/2026 Assessment: Ms. Violet Hernandez is a 38 year old female presenting for postop check status post She reports doing well without concerns. Pathology discussed and surgical details reviewed. Plan: -May continue to increase physical activity as tolerated -May resume intercourse -Refrain from heavy lifting for 4 weeks postop -Follow up with general provider for annual care -All questions answered and pt agrees with plan Future appointments: Future Appointments Date Time Provider Department Center 11/03/2024 2:50 PM SCREEN MAMMO [facility] RDXWS Martin Mcmillan 05/23/2025 10:30 AM Sherly Ng APRN.DRUG SAFETY PHYSICIAN OBCHRISTIANE Mcmillan Appointment scheduled: No follow-up visit currently scheduled. Action taken: Refill request routed to clinician Janette Bullock RN June 06, 2024 2:13 PM [facility]04-28-2025 Miscellaneous Notes* Telephone Encounter - Janette Bullock RN - 06/06/2024 2:12 PM EDT Called Patient. Verified name and . Patient reports that she is still using this medication and that it's helpful. Pharmacy verified Refill(s) request: Requested Prescriptions Pending Prescriptions Disp Refills SHAYE 0.1 mg/24 hr patch [Pharmacy Med Name: Shaye 0.1 MG/24HR Transdermal Patch Twice Weekly] 24 patch 0 Sig: APPLY 1 PATCH TOPICALLY TWICE A WEEK DIRECTED Request from: Pharmacy Last order: estradiol (VIVELLE-DOT) 0.1 mg/24 hr patch Apply 1 Patch as directed two times a week. 24 Patch 1 ordered 01/15/2024 07/13/2024 Last visit: last office visit with Dr. Katz on 01/14/2026 Assessment: Ms. Violet Hernandez is a 38 year old female presenting for postop check status post She reports doing well without concerns. Pathology discussed and surgical details reviewed. Plan: -May continue to increase physical activity as tolerated -May resume intercourse -Refrain from heavy lifting for 4 weeks postop -Follow up with general provider for annual care -All questions answered and pt agrees with plan Future appointments: Future Appointments Date Time Provider Department Center 11/03/2024 2:50 PM SCREEN MAMMO [facility] [place] 05/23/2025 10:30 AM Sherly Ng APRN.CNP [facility] [place] Appointment scheduled: No follow-up visit currently scheduled. Action taken: Refill request routed to clinician Janette Bullock RN June 06, 2024 2:13 PM documented in this [facility]Main [facility]04-11-[facility]25 Instructions* Patient Instructions* Sherly Ng APRN.CNP - 05/20/2024 4:36 PM EDT Silicone based lubricant documented in this encounterMain [facility] Center04-11-2025 NoteHNO ID: [id number] Author: SHERLY NG APRN.CNP Service: ? Author Type: Nurse Practitioner Type: Progress Notes Filed: 05/20/2024 19:27 Note Text: Ticker Installer offered: Patient declinesRobert Lazo is a 38 year old who presents for an annual gynecologic exam without complaints. Menses: hysterectomy BSO HRT: Vivelle Dot HPV vaccine: No Last Pap: 05/20/2021 normal HPV: 05/15/2021 negative History of abnormal pap: No Last mammogram: never Sexually active: Yes History of STDS: None Patient concerns for STD exposure: No. Time with current partner: 18 years Pain with intercourse: Yes pain at bottom at vaginal opening, thinks due to dryness, uses coconut oil Postcoital bleeding: No Documentation from previous visit of 05/09/2022 was copied and pasted, documentation has been reviewed and edited as necessary for today's visit. OB History Gravida0 Para0 Term0 Preterm0 AB0 Living0 SAB0 IAB0 Ectopic0 Multiple0 Live Births0 FAMILY HISTORY Problem Relation Age of Onset Cataract Mother Macular Degen Mother Hypertension Father No Known Problems Sister No Known Problems Brother Breast Cancer Maternal Grandmother 55 Skin Cancer Maternal Grandmother Diabetes Maternal Grandmother Heart disease Maternal Grandfather Heart disease Paternal Grandmother Stroke Paternal Grandfather SOCIAL HISTORY Social History Tobacco Use Smoking status: Never Smokeless tobacco: Never Vaping Use Vaping status: Never Used Substance Use Topics Alcohol use: Never Drug use: Never REVIEW OF SYSTEMS Abdomen:intermittent aching at umbilical incision from hysterectomy. Has noticed a dent in abdomen where uterus used to be. No abdominal pain, nausea, vomiting, diarrhea, or constipation. No bloating, early satiety, indigestion, or increased flatulence. Bladder: No dysuria, gross hematuria, urinary frequency, urinary urgency, or incontinence. Breast: No breast lumps, nipple d/c, overlying skin changes, redness or skin retraction. Allergies and current medication updated:Yes SENSITIVE EXAM: The sensitive examination was discussed with the Patient or Patient's Authorized Lean Manufacturing Engineer. As applicable, any other physician, advance practice provider, medical student, or other health professional student that will be observing or involved in the sensitive examination for educational or training purposes was discussed with the Patient or Authorized Lean Manufacturing Engineer. The Patient or Authorized Lean Manufacturing Engineer has agreed to proceed with the sensitive examination. (Sensitive examination includes inspection and/or palpation of the breasts, pelvis, prostate and anorectal regions). EXAM: BP 100/60 Ht 4' 10 (1.47m) Wt 137 lb (62.1kg) LMP 06/09/2022 BMI 28.64 kg/(m2). GENERAL: pleasant, female in no apparent distress HEENT: Normocephalic, atraumatic, mucus membranes moist, and no lesions NECK: Supple, full range of motion, no adenopathy, and thyroid normal DERMATOLOGY: Normal, without lesions, non-icteric, and non-hirsute BREAST: soft, non-tender, symmetric, no dominant mass, normal nipple-areolar complex, no lymphadenopathy, and no nipple discharge CHEST: Normal inspiratory effort ABDOMEN: soft, non-tender, and no masses PELVIC: external genitalia normal, normal Bartholin's glands, urethra, [place]'s glands, no vulvar lesions, good vaginal support, physiologic discharge present, normal appearing perineal body and perianal region, cervix surgically absent. Thin midline scar at perineum. BIMANUAL: no adnexal masses, non-tender, and uterus surgically absent RECTOVAGINAL: deferred. NEURO: alert and oriented x3 and alert and oriented x3,exam grossly non-focal EXTREMITIES: normal ASSESSMENT/PLAN: 1) Health maintenance: Pap/HPV no longer needed - hysterectomy Mammogram scheduled. Nutrition, exercise and routine health maintenance exams reviewed. Calcium/Vitamin D supplementation information provided. Colon cancer screening: up to date 2. Superficial dyspareunia - ICD9: 625.0, ICD10: N94.11 Thin midline scar at perineum at location of pain - shown with mirror - discussed options of lubricants, vaginal hyaluronic acid suppositories, vaginal estogen - plans to try silicone lubricant or Revaree 3. 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 Should review liver enzymes before refills - PCP at [place] 4) Contraception: hysterectomy. Contraceptive options reviewed and information provided. 5) STD screening: Declined STD check. 6) Follow up one year or sooner as needed Sherly Ng APRN.[facility]04-11-2025 History of Present illness Narrative* Sherly Ng APRN.DRUG SAFETY PHYSICIAN - 05/20/2024 4:05 PM EDT Ticker Installer offered: Patient declines. Violet is a 38 year old who presents for an annual gynecologic exam without complaints. Menses: hysterectomy BSO HRT: Vivelle Dot HPV vaccine: No Last Pap: 05/20/2021 normal HPV: 05/15/2021 negative History of abnormal pap: No Last mammogram: never Sexually active: Yes History of STDS: None Patient concerns for STD exposure: No. Time with current partner: 18 years Pain with intercourse: Yes pain at bottom at vaginal opening, thinks due to dryness, uses coconut oil Postcoital bleeding: No Documentation from previous visit of 05/09/2022 was copied and pasted, documentation has been reviewed and edited as necessary for today's visit. OB History Gravida0 Para0 Term0 Preterm0 AB0 Living0 SAB0 IAB0 Ectopic0 Multiple0 Live Births0 FAMILY HISTORY Problem Relation Age of Onset Cataract Mother Macular Degen Mother Hypertension Father No Known Problems Sister No Known Problems Brother Breast Cancer Maternal Grandmother 55 Skin Cancer Maternal Grandmother Diabetes Maternal Grandmother Heart disease Maternal Grandfather Heart disease Paternal Grandmother Stroke Paternal Grandfather SOCIAL HISTORY Social History Tobacco Use Smoking status: Never Smokeless tobacco: Never Vaping Use Vaping status: Never Used Substance Use Topics Alcohol use: Never Drug use: Never REVIEW OF SYSTEMS Abdomen:intermittent aching at umbilical incision from hysterectomy. Has noticed a dent in abdomen where uterus used to be. No abdominal pain, nausea, vomiting, diarrhea, or constipation. No bloating, early satiety, indigestion, or increased flatulence. Bladder: No dysuria, gross hematuria, urinary frequency, urinary urgency, or incontinence. Breast: No breast lumps, nipple d/c, overlying skin changes, redness or skin retraction. Allergies and current medication updated:Yes SENSITIVE EXAM: The sensitive examination was discussed with the Patient or Patient's Authorized Lean Manufacturing Engineer. As applicable, any other physician, advance practice provider, medical student, or other health professional student that will be observing or involved in the sensitive examination for educational or training purposes was discussed with the Patient or Authorized Lean Manufacturing Engineer. The Patient or Authorized Lean Manufacturing Engineer has agreed to proceed with the sensitive examination. (Sensitive examination includes inspection and/or palpation of the breasts, pelvis, prostate and anorectal regions). EXAM: BP 100/60 Ht 4' 10 (1.47m) Wt 137 lb (62.1kg) LMP 06/09/2022 BMI 28.64 kg/(m^2). GENERAL: pleasant, female in no apparent distress HEENT: Normocephalic, atraumatic, mucus membranes moist, and no lesions NECK: Supple, full range of motion, no adenopathy, and thyroid normal DERMATOLOGY: Normal, without lesions, non-icteric, and non-hirsute BREAST: soft, non-tender, symmetric, no dominant mass, normal nipple-areolar complex, no lymphadenopathy, and no nipple discharge CHEST: Normal inspiratory effort ABDOMEN: soft, non-tender, and no masses PELVIC: external genitalia normal, normal Bartholin's glands, urethra, [place]'s glands, no vulvar lesions, good vaginal support, physiologic discharge present, normal appearing perineal body and perianal region, cervix surgically absent. Thin midline scar at perineum. BIMANUAL: no adnexal masses, non-tender, and uterus surgically absent RECTOVAGINAL: deferred. NEURO: alert and oriented x3 and alert and oriented x3,exam grossly non-focal EXTREMITIES: normal ASSESSMENT/PLAN: 1) Health maintenance: Pap/HPV no longer needed - hysterectomy Mammogram scheduled. Nutrition, exercise and routine health maintenance exams reviewed. Calcium/Vitamin D supplementation information provided. Colon cancer screening: up to date 2. Superficial dyspareunia - ICD9: 625.0, ICD10: N94.11 Thin midline scar at perineum at location of pain - shown with mirror - discussed options of lubricants, vaginal hyaluronic acid suppositories, vaginal estogen - plans to try silicone lubricant or Revaree 3. 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 Should review liver enzymes before refills - [facility] 4) Contraception: hysterectomy. Contraceptive options reviewed and information provided. 5) STD screening: Declined STD check. 6) Follow up one year or sooner as needed Sherly Ng APRN.DRUG SAFETY PHYSICIAN documented in this encounterMain [facility]02-24-2025 Evaluation note* Diagnosis Onset Date Resolution Status Admit Date Costochondritis acute April 04, 2024 9:10am Hypersomnolence chronic April 04, 2024 9:10am Influenza A inactive March 9:10am Lymphopenia acute April 18 025 8:26am Chronic leukopenia chronic April 18, 2024 8:26am Chronic leukopenia chronic April 25, 2024 12:56pm Monocytosis chronic April 25 025 12:56pm Dysuria acute April 27 7:46am NICA (obstructive sleep apnea) acute April 27, 2024 7:46am [facility] Work Phone: 1(560) 277-151002-24-2025 Evaluation note* Diagnosis Onset Date Resolution Status Admit Date Costochondritis acute April 04, 2024 9:10am Hypersomnolence chronic April 04, 2024 9:10am Influenza A inactive March 9:10am Lymphopenia acute April 18 025 8:26am Chronic leukopenia chronic April 18, 2024 8:26am Chronic leukopenia chronic April 25, 2024 12:56pm Monocytosis chronic April 25 025 12:56pm Dysuria acute April 27 7:46am NICA (obstructive sleep apnea) acute April 27, 2024 7:46am Common bile duct dilation acute June 29, 2024 8:01am Elevated alkaline phosphatas e level acute June 29, 2024 8 :01am Elevated transaminase level acute June 29, 2024 8:01am COELHO (nonalcoholic steatohepatitis) chronic June 29, 2024 8:01am [facility] Work Phone: 1(755) 985-689902-24-2025 Evaluation note* Diagnosis Onset Date Resolution Status Admit Date Costochondritis acute April 04, 2024 9:10am Hypersomnolence chronic April 04, 2024 9:10am Influenza A inactive March 9:10am Lymphopenia acute April 18 8:26am Chronic leukopenia chronic April 18, 2024 8:26am Chronic leukopenia chronic April 25, 2024 12:56pm Monocytosis chronic April 25 025 12:56pm Dysuria acute April 27 7:46am NICA (obstructive sleep apnea) acute April 27, 2024 7:46am Common bile duct dilation acute June 29, 2024 8:01am Elevated alkaline phosphatas e level acute June 29, 2024 8 :01am Elevated transaminase level acute June 29, 2024 8:01am COELHO (nonalcoholic steatohepatitis) chronic June 29, 2024 8:01am Drug-induced liver injury acute July 19, 2024 12:01pm Elevated liver enzymes acute 2024 12:01pm 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 July 12:01pm [facility] Work Phone: 1(426) 572-174102-24-2025 Evaluation note* Diagnosis Onset Date Resolution Status Admit Date Costochondritis acute April 04, 2024 9:10am Hypersomnolence chronic April 04, 2024 9:10am Influenza A inactive March 9:10am Chronic leukopenia chronic April 25, 2024 12:56pm Monocytosis chronic April 25 025 12:56pm Dysuria acute April 27 7:46am NICA (obstructive sleep apnea) acute April 27, 2024 7:46am Common bile duct dilation acute June 29, 2024 8:01am Elevated alkaline phosphatas e level acute June 29, 2024 8 :01am Elevated transaminase level acute June 29, 2024 8:01am COELHO (nonalcoholic steatohepatitis) chronic June 29, 2024 8:01am Drug-induced liver injury acute July 19, 2024 12:01pm Elevated liver enzymes acute 2024 12:01pm 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 CSN:[id number] PCP: Emily Sanders MD ALL: No Known Allergies History: Chief Complaint: Flu Symptoms (Fever, body aches, headache, congestion, sore throat X 4 days ) Encounter Date: 03/29/2024 HPI: The history was obtained from the patient. Violet is a 38 y.o. female, who presents with a chief complaint of Flu Symptoms (Fever, body aches, headache, congestion, sore throat X 4 days ) congestion and pressure, bilateral ear fullness, productive cough with scant phlegm, fever at onset of illness, body aches and chills which have improved. Can continues to feel mild shortness of breath with activity only. Son ill with similar symptoms. Denies any abdominal pain, rash, nausea, vomiting, diarrhea. PMHx: No past medical history on file. Current Outpatient Medications Medication Sig Dispense Refill ARIPiprazole (Abilify) 5 mg tablet estradiol (Vivelle-DOT) 0.0375 mg/[address] 1 patch on the skin 2 times a week. fLuvoxaMINE (Luvox) 100 mg tablet albuterol 90 mcg/actuation inhaler Inhale 2 puffs every 4 hours if needed for wheezing or shortnessof breath. 18 g 0 dvydqulpfynqmlm-yigihmmel-EE 2-30-10 mg/5 mL syrup Take 5 mL by mouth 4 times a day as needed for congestion or cough for up to 10 days. 120 mL 0 No current facility-administered medications for this visit. PMSx: No past surgical history on file. Fam Hx: No family history on file. SOC. Hx: Social History Socioeconomic History Marital status: Spouse name: Not on file Number of children: Not on file Years of education: Not on file Highest education level: Not on file Occupational History Not on file Tobacco Use Smoking status: Not on file Smokeless tobacco: Not on file Substance and Sexual Activity Alcohol use: Not on file Drug use: Not on file Sexual activity: Not on file Other Topics Concern Not on file Social History Narrative Not on file Social Drivers of Health Financial Resource Strain: Not on file Food Insecurity: Not on file Transportation Needs: Not on file Physical Activity: Not on file Stress: Not on file Social Connections: Not on file Intimate Partner Violence: Not on file Housing Stability: Not on file Vitals: 03/29/24 1101 BP: 107/75 Pulse: 74 Resp: 18 Temp: 36.7 C (98.1 F) SpO2: 97% 62.6 kg (138 lb) Physical Exam Vitals and nursing note reviewed. Constitutional: Appearance: Normal appearance. HENT: Head: Normocephalic and atraumatic. Right Ear: Hearing, ear canal and external ear normal. A middle ear effusion is present. Tympanic membrane is erythematous. Tympanic membrane is not bulging. Tympanic membrane has normal mobility. Left Ear: Hearing, ear canal and external ear normal. A middle ear effusion is present. Tympanic membrane is erythematous. Tympanic membrane is not bulging. Tympanic membrane has normal mobility. Nose: Congestion and rhinorrhea present. Rhinorrhea is purulent. Right Sinus: Maxillary sinus tenderness and frontal sinus tenderness present. Left Sinus: Maxillary sinus tenderness and frontal sinus tenderness present. Mouth/Throat: Lips: [place]. Mouth: Mucous membranes are moist. Pharynx: Uvula midline. Posterior oropharyngeal erythema present. No pharyngeal swelling or oropharyngeal exudate. Tonsils: No tonsillar exudate. Cardiovascular: Rate and Rhythm: Normal rate and regular rhythm. Heart sounds: Normal heart sounds. Pulmonary: Effort: Pulmonary effort is normal. Breath sounds: Examination of the right-lower field reveals decreased breath sounds. Examination ofthe left-lower field reveals decreased breath sounds. Decreased breath sounds present. No rales. Abdominal: General: Bowel sounds are normal. Skin: General: Skin is warm and dry. Neurological: Mental Status: She is alert and oriented to person, place, and time. LABORATORY @ RADIOLOGICAL IMAGING (if done): Results for orders placed or performed in visit on 03/29/24 (from the past 24 hours) POCT SARS-COV-2/FLU/RSV PCR SYMPTOMATIC manually resulted Result Value Ref Range POC Coronavirus 2019, PCR Not Detected Not Detected POC Flu A Result Detected (A) Not Detected POC Flu B Result Not Detected Not Detected POC RSV PCR Not Detected Not Detected Reviewed with pt I did personally review Violet's past medical history, surgical history, social history, as well as family history (when relevant). In this case, I also oversaw the her drug management by reviewingher medication list, allergy list, as well as the medications that I prescribed during the UC course and/or recommended as an out-patient (including possible OTC medications such as acetaminophen, NSAIDs , etc). After reviewing the items above, I did look at previous medical documentation, such as recent hospitalizations, office visits, and/or recent consultations with PCP/specialist. SDOH: Another factor that I considered in Violet's care was her Social Determinants of Health (SDOH). During this UC encounter, she did not have social determinants of health. Those SDOH influencing Violet's care are: none COURSE/MEDICAL DECISION MAKING: Violet is a 38 y.o., who presents with a working diagnosis of 1. Influenza A 2. Acute cough Violet was seen today for flu symptoms. Diagnoses and all orders for this visit: Influenza A (Primary) - sjcsyxrdibcmbsm-sojdyjlpm-BA 2-30-10 mg/5 mL syrup; Take 5 mL by mouth 4 times a day as needed for congestion or cough for up to 10 days. - albuterol 90 mcg/actuation inhaler; Inhale 2 puffs every 4 hours if needed for wheezing or shortness of breath. Acute cough - POCT SARS-COV-2/FLU/RSV PCR SYMPTOMATIC manually resulted Plan of care reviewed with patient. If symptoms change and/or worsen will follow-up with primary care provider, return to urgent care, or go to the nearest emergency department for further evaluation. Patient states understanding and is agreeable with plan of care. Valentine Roth APRN, YUNIOR Advanced Practice Provider [facility] Please note: While the patient may or may not have received printed discharge paperwork, all relevant medical findings, test results, and treatment details are accessible through the electronic medical record system. The patient is encouraged to review their chart via the patient portal for comprehensive information and follow-up instructions. documented in this [facility] Work Phone: 1(995) 705-796001-02-2025 NoteHNO ID: [id number] Author: LEO BARNETT MD Service: ? Author Type: Physician Type: Progress Notes Filed: 02/11/2024 14:00 Note Text: Violet Hernandez is a 38 year old female who presents for discussion regarding estrogen patch. Pt reports is being seen for fatty liver- wasn't sure if going without estrogen would cause a rise in LFTs and if being on the patch was better than oral estrogen. Pt reports no other concerns today. Pt states is following with Dr. Boogie. Pt doing well s/p TLH BSO. 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 History Comments: Sexual Activity: Yes; Male Contraception: Pill PAST MEDICAL HISTORY Diagnosis Date Anxiety Depression Leukopenia Mitral prolapse Premature ovarian failure PAST SURGICAL HISTORY Procedure Laterality Date BONE MARROW BIOPSY x 2 COLONOSCOPY SCREENING 11/05/2023 ORAL SURGERY PROCEDURE TLH W/T/O 250 G OR LESS 11/10/2023 FAMILY HISTORY Problem Relation Age of Onset Cataract Mother Macular Degen Mother Hypertension Father No Known Problems Sister No Known Problems Brother Breast Cancer Maternal Grandmother 55 Skin Cancer Maternal Grandmother Diabetes Maternal Grandmother Heart disease Maternal Grandfather Heart disease Paternal Grandmother Stroke Paternal Grandfather Social History Tobacco Use Smoking status: Never Smokeless tobacco: Never Vaping Use Vaping status: Never Used Substance Use Topics Alcohol use: Never Drug use: Never Current Outpatient Medications Medication Sig estradiol (VIVELLE-DOT) 0.1 mg/24 hr patch Apply 1 Patch as directed two times a week. Senna 8.6 mg tab Take 2 tablets by mouth two times a day. fluvoxaMINE Maleate (LUVOX) 25 mg tablet Take 100 mg by mouth once daily. buPROPion XL (WELLBUTRIN XL) 150 mg 24 hr tablet Take 300 mg by mouth once daily. No current facility-administered medications for this visit. Allergies As of Date: 02/11/2024 (No Known Allergies) Fully Assessed 01/15/2024 REVIEW OF SYSTEMS Abdomen: no pain Expanded ROS: N/A Allergies and current medication updated:Yes SENSITIVE EXAM: Sensitive exam not performed. EXAM: BP 108/66 Wt 148 lb (67.1kg) LMP 06/09/2022 GENERAL: pleasant, female in no apparent distress HEENT: Normocephalic and atraumatic NECK: full range of motion DERMATOLOGY: Normal, without lesions, non-icteric, and non-hirsute NEURO: alert and oriented x3,exam grossly non-focal EXTREMITIES: normal ASSESSMENT AND PLAN: Assessment AND Plan Fatty liver Reviewed ok to continue Vivelle dot and recommended at this time. Continue weight loss- whole foods. Low carb, higher protein. Exercise- routine Continue routine follow up with GI Encounter for screening mammogram for malignant neoplasm of breast Orders: GUSTAVO SCREENING W LOW; Future Hormone replacement therapy (HRT) I spent a total of 20 minutes on the date of the service which included preparing to see the patient, [id number] patient care, completing clinical documentation, obtaining and/or reviewing separately obtained history, performing a medically appropriate examination, and counseling and educating the patient/family/caregiver. Leo [facility]01-02-2025 History of Present illness Narrative* Leo Barnett MD - 02/11/2024 1:36 PM EST Violet Hernandez is a 38 year old female who presents for discussion regarding estrogen patch. Pt reports is being seen for fatty liver- wasn't sure if going without estrogen would cause a rise inLFTs and if being on the patch was better than oral estrogen. Pt reports no other concerns today. Pt states is following with Dr. Boogie. Pt doing well s/p TL BSO. 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 History Comments: Sexual Activity: Yes; Male Contraception: Pill PAST MEDICAL HISTORY Diagnosis Date Anxiety Depression Leukopenia Mitral prolapse Premature ovarian failure PAST SURGICAL HISTORY Procedure Laterality Date BONE MARROW BIOPSY x 2 COLONOSCOPY SCREENING 11/05/2023 ORAL SURGERY PROCEDURE [facility] W/T/O 250 G OR LESS 11/10/2023 FAMILY HISTORY Problem Relation Age of Onset Cataract Mother Macular Degen Mother Hypertension Father No Known Problems Sister No Known Problems Brother Breast Cancer Maternal Grandmother 55 Skin Cancer Maternal Grandmother Diabetes Maternal Grandmother Heart disease Maternal Grandfather Heart disease Paternal Grandmother Stroke Paternal Grandfather Social History Tobacco Use Smoking status: Never Smokeless tobacco: Never Vaping Use Vaping status: Never Used Substance Use Topics Alcohol use: Never Drug use: Never Current Outpatient Medications Medication Sig estradiol (VIVELLE-DOT) 0.1 mg/24 hr patch Apply 1 Patch as directed two times a week. Senna 8.6 mg tab Take 2 tablets by mouth two times a day. fluvoxaMINE Maleate (LUVOX) 25 mg tablet Take 100 mg by mouth once daily. buPROPion XL (WELLBUTRIN XL) 150 mg 24 hr tablet Take 300 mg by mouth once daily. No current facility-administered medications for this visit. Allergies As of Date: 02/11/2024 (No Known Allergies) Fully Assessed 01/15/2024 REVIEW OF SYSTEMS Abdomen: no pain Expanded ROS: N/A Allergies and current medication updated:Yes SENSITIVE EXAM: Sensitive exam not performed. EXAM: BP 108/66 Wt 148 lb (67.1kg) LMP 06/09/2022 GENERAL: pleasant, female in no apparent distress HEENT: Normocephalic and atraumatic NECK: full range of motion DERMATOLOGY: Normal, without lesions, non-icteric, and non-hirsute NEURO: alert and oriented x3,exam grossly non-focal EXTREMITIES: normal ASSESSMENT AND PLAN: Assessment & Plan Fatty liver Reviewed ok to continue Vivelle dot and recommended at this time. Continue weight loss- whole foods. Low carb, higher protein. Exercise- routine Continue routine follow up with GI Encounter for screening mammogram for malignant neoplasm of breast Orders: GUSTAVO SCREENING W LOW; Future Hormone replacement therapy (HRT) I spent a total of 20 minutes on the date of the service which included preparing to see the patient, [id number] patient care, completing clinical documentation, obtaining and/or reviewing separately obtained history, performing a medically appropriate examination, and counseling and educating the patient/family/caregiver. Leo Abdi MD documented in this encounterMain [facility]12-[facility]24 NoteHNO ID: [id number] Author: LEE KATZ, DO Service: ? Author Type: Physician Type: Progress Notes Filed: 01/19/2024 13:58 Note Text: [facility] SECTION FOR MINIMALLY INVASIVE GYNECOLOGIC SURGERY OUTPATIENT VISIT DATE 01/15/2024 OUTPATIENT VISIT TYPE POST OPERATIVE FOLLOW UP History: Violet Hernandez is a 38 year old female here for post operative follow up appointment. She underwent surgery 11/10/2023 SURGERY/PROCEDURE(S): Total Laparoscopic Hysterectomy, Bilateral Salpingo-Oophorectomy, Cystoscopy She reports feeling good since her procedure. Her appetite is good. She describes her pain as no pain presently. She is currently taking nothing for pain control. She has not had sexual intercourse since the procedure. Denies nausea/vomiting/chest pain/shortness of breath. Ambulating well. No issues with voiding or BMs. States at her post op appointment with the DREDGE PUMP OPERATOR on 12/17/2023 was told on her Vaginal exam they noted a 3mm suture noted at top of vagina, midline. Surgical Pathology: FINAL DIAGNOSIS A. Uterus with cervix, bilateral fallopian tubes and ovaries, Total Laparoscopic Hysterectomy and bilateral salpingo-oophorectomy : - Benign cervix. See comment. - Inactive endometrium with stromal breakdown. 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 - Bilateral fimbriated fallopian tubes with no significant diagnostic alteration. - Ovaries with surface adenofibromatous change and adhesions. FINDINGS 1) Exam under anesthesia: Normal external female genitalia, normal appearing vaginal tissue without lesions or discharge, normal appearing cervix. 10 week size anteverted mobile fibroid uterus without palpable adnexal masses. 2) Laparoscopy: Anterior cul-de-sac- normal-appearing Posterior cul-de-sac- normal-appearing Left ovarian fossa- normal-appearing Right ovarian fossa- normal-appearing Uterosacral ligaments- normal-appearing Uterus- 7 week size uterus with large 8cm fundal subserosal fibroid. Ovaries and fallopian tubes- normal bilaterally Bowel and appendix- normal-appearing, sigmoid colon with greater than physiologic adhesions to the left pelvic sidewall Diaphragmatic peritoneum- normal-appearing 3) Cystoscopy: bilateral ureters patent as indicated by strong jets of urine from bilateral ureteral ostia and intact bladder urothelium, normal urinary trigone ROS: Constitutional: Denies fever or chills GI: Denies abdominal pain, nausea, vomiting, bloody stools or diarrhea : Denies dysuria Integument: Denies rash Psychiatric: Denies depression or anxiety Exam: Vitals: 01/15/24 1357 BP: 119/78 Weight: 68 kg (150 lb) Height: 149.9 cm (4' 11) Height: 147.3 cm (4' 10) (12/17/2023 2:56 PM) Body mass index is 30.3 kg/m?. Neuro/psych: Alert and oriented x 3 in a pleasant mood Skin: Warm, dry and intact Abdomen: Soft, non tender, non distended, no hepatosplenomegaly or hernias. Incision: c/d/i Pelvic: Vaginal cuff: well healed, intact Assessment: Ms. Violet Hernandez is a 38 year old female presenting for postop check status post She reports doing well without concerns. Pathology discussed and surgical details reviewed. Plan: -May continue to increase physical activity as tolerated -May resume intercourse -Refrain from heavy lifting for 4 weeks postop -Follow up with general provider for annual care -All questions answered and pt agrees with plan Lee Katz, [facility]12-06-2024 History of Present illness Narrative* Lee Katz, DO - 01/15/2024 1:48 PM EST Images from the original note were not included. [facility] SECTION FOR MINIMALLY INVASIVE GYNECOLOGIC SURGERY OUTPATIENT VISIT DATE 01/15/2024 OUTPATIENT VISIT TYPE POST OPERATIVE FOLLOW UP History: Violet Hernandez is a 38 year old female here for post operative follow up appointment. She underwent surgery 11/10/2023 SURGERY/PROCEDURE(S): Total Laparoscopic Hysterectomy, Bilateral Salpingo- Oophorectomy, Cystoscopy She reports feeling good since her procedure. Her appetite is good. She describes her pain as no pain presently. She is currently taking nothing for pain control. She has not had sexual intercourse since the procedure. Denies nausea/vomiting/chest pain/shortness of breath. Ambulating well. No issues with voiding or BMs. States at her post op appointment with the DREDGE PUMP OPERATOR on 12/17/2023 was told on her Vaginal exam they noted a 3mm suture noted at top of vagina, midline. Surgical Pathology: FINAL DIAGNOSIS A. Uterus with cervix, bilateral fallopian tubes and ovaries, Total Laparoscopic Hysterectomy and bilateral salpingo-oophorectomy : - Benign cervix. See comment. - Inactive endometrium with stromal breakdown. 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 - Bilateral fimbriated fallopian tubes with no significant diagnostic alteration. - Ovaries with surface adenofibromatous change and adhesions. FINDINGS 1) Exam under anesthesia: Normal external female genitalia, normal appearing vaginal tissue withoutlesions or discharge, normal appearing cervix. 10 week size anteverted mobile fibroid uterus without palpable adnexal masses. 2) Laparoscopy: Anterior cul-de-sac- normal-appearing Posterior cul-de-sac- normal-appearing Left ovarian fossa- normal-appearing Right ovarian fossa- normal-appearing Uterosacral ligaments- normal-appearing Uterus- 7 week size uterus with large 8cm fundal subserosal fibroid. Ovaries and fallopian tubes- normal bilaterally Bowel and appendix- normal-appearing, sigmoid colon with greater than physiologic adhesions to the left pelvic sidewall Diaphragmatic peritoneum- normal-appearing 3) Cystoscopy: bilateral ureters patent as indicated by strong jets of urine from bilateral ureteral ostia and intact bladder urothelium, normal urinary trigone ROS: Constitutional: Denies fever or chills GI: Denies abdominal pain, nausea, vomiting, bloody stools or diarrhea : Denies dysuria Integument: Denies rash Psychiatric: Denies depression or anxiety Exam: Vitals: 01/15/24 1357 BP: 119/78 Weight: 68 kg (150 lb) Height: 149.9 cm (4' 11) Height: 147.3 cm (4' 10) (12/17/2023 2:56 PM) Body mass index is 30.3 kg/m . Neuro/psych: Alert and oriented x 3 in a pleasant mood Skin: Warm, dry and intact Abdomen: Soft, non tender, non distended, no hepatosplenomegaly or hernias. Incision: c/d/i Pelvic: Vaginal cuff: well healed, intact Assessment: Ms. Violet Hernandez is a 38 year old female presenting for postop check status post She reports doing well without concerns. Pathology discussed and surgical details reviewed. Plan: -May continue to increase physical activity as tolerated -May resume intercourse -Refrain from heavy lifting for 4 weeks postop -Follow up with general provider for annual care -All questions answered and pt agrees with plan Lee Katz DO documented in this encounterMain [facility]11-21-2024 Evaluation note* Diagnosis Onset Date Resolution Status Admit Date COELHO (nonalcoholic steatohepatitis) chronic December 31, 2023 3:56pm Osteopenia chronic December 31, 2023 3:56pm Costochondritis acute April 04, 2024 9:10am Hypersomnolence chronic April 04, 2024 9:10am Influenza A inactive March 9:10am [facility] Work Phone: 1(913) 899-489211-07-2024 NoteHNO ID: [id number] Author: YENNIFER TOMAS APRN.DRUG SAFETY PHYSICIAN Service: ? Author Type: Nurse Practitioner Type: Progress Notes Filed: 12/17/2023 15:51 Note Text: [facility] Department of Benign Gynecology [facility] PATIENT NAME: Violet Hernandez PCP: Emily Sanders MD DATE: 12/17/2023 Violet Hernandez is a 38 year old old female who presents for a follow up visit to discuss Vaginal bleeding after TLH-BSO on 11/10/2023 HPI: Over all doing well. When she has a BM she has noticed bright red bleeding. She is certain it is not from her rectum. 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 As applicable, any other physician, advance practice provider, medical student, or other health professional student that will be observing or involved in the sensitive examination for educational or training purposes was discussed with the Patient or Authorized Lean Manufacturing Engineer. The Patient or Authorized Lean Manufacturing Engineer has agreed to proceed with the sensitive examination. (Sensitive examination includes inspection and/or palpation of the breasts, pelvis, prostate and anorectal regions) Ticker Installer offered: Patient accepts, visit chaperoned by Pete Kowalski MA. BP 124/80 Ht 147.3 cm (4' 10) Wt 71.4 kg (157 lb 6.5 oz) LMP 06/09/2022 (Within Days) BMI 32.90 kg/m? Physical Exam Constitutional: Appearance: Normal appearance. Genitourinary: Genitourinary Comments: 4 mm dimple with pink discharge Vaginal cuff intact. Perineal sutures intact. Vaginal discharge (scant, brown, thin) present. Vaginal exam comments: 3mm suture noted at top of vagina, midline. Cervix is absent. Neurological: Mental Status: She is alert. Psychiatric: Mood and Affect: Mood normal. Behavior: Behavior normal. Thought Content: Thought content normal. Judgment: Judgment normal. Vitals and nursing note reviewed. ASSESSMENT AND PLAN: Encounter Diagnosis ICD-10-CM 1. Vaginal discharge N89.8 JORDYN/TRICHOMONAS NAAT BACTERIAL VAGINOSIS NAAT Possible small perineal repair defect. Discussed vulvar hygiene. Continue to monitor Keep upcoming appointment with Dr. Mikie Tomas APRN.CNP December 17, 2023 3:14 [facility]11-07-2024 History of Present illness Narrative* Yennifer Tomas APRN.DANA - 12/17/2023 3:14 PM EST Images from the original note were not included. [facility] Department of Benign Gynecology [facility] PATIENT NAME: Violet Hernandez PCP: Emily Sanders MD DATE: 12/17/2023 Violet Hernandez is a 38 year old old female who presents for a follow up visit to discuss Vaginal bleeding after TLH-BSO on 11/10/2023 HPI: Over all doing well. When she has a BM she has noticed bright red bleeding. She is certain it is not from her rectum. 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 Asapplicable, any other physician, advance practice provider, medical student, or other health professional student that will be observing or involved in the sensitive examination for educational or training purposes was discussed with the Patient or Authorized Lean Manufacturing Engineer. The Patient or Authorized Lean Manufacturing Engineer has agreed to proceed with the sensitive examination. (Sensitive examination includes inspection and/or palpation of the breasts, pelvis, prostate and anorectal regions) Ticker Installer offered: Patient accepts, visit chaperoned by Pete Kowalski MA. BP 124/80 Ht 147.3 cm (4' 10) Wt 71.4 kg (157 lb 6.5 oz) LMP 06/09/2022 (Within Days) BMI 32.90 kg/m Physical Exam Constitutional: Appearance: Normal appearance. Genitourinary: Genitourinary Comments: 4 mm dimple with pink discharge Vaginal cuff intact. Perineal sutures intact. Vaginal discharge (scant, brown, thin) present. Vaginal exam comments: 3mm suture noted at top of vagina, midline. Cervix is absent. Neurological: Mental Status: She is alert. Psychiatric: Mood and Affect: Mood normal. Behavior: Behavior normal. Thought Content: Thought content normal. Judgment: Judgment normal. Vitals and nursing note reviewed. ASSESSMENT AND PLAN: Encounter Diagnosis ICD-10-CM 1. Vaginal discharge N89.8 JORDYN/TRICHOMONAS NAAT BACTERIAL VAGINOSIS NAAT Possible small perineal repair defect. Discussed vulvar hygiene. Continue to monitor Keep upcoming appointment with Dr. Mikie Tomas APRN.DRUG SAFETY PHYSICIAN December 17, 2023 3:14 PM * Pete Gill MA - 12/17/2023 3:09 PM EST Exam chaperoned by Pete Gill MA December 17, 2023 3:10 PM documented in this encounterMain [facility]11-07-2024 NoteHNO ID: [id number] Author: PETE GILL MA Service: ? Author Type: Integrity Manager Type: Progress Notes Filed: 12/17/2023 15:51 Note Text: Exam chaperoned by Pete Gill MA December 17, 2023 3:10 [facility]10-29-2024 Telephone encounter Note* Telephone Encounter - Setph Randall RN - 12/08/2023 11:39 AM EDT Pt missed her vaginal cuff check. Needs to reschedule. Steph Randall RN [facility]10-29-[facility] Miscellaneous Notes* Telephone Encounter - Steph Randall RN - 12/08/2023 11:39 AM EDT Pt missed her vaginal cuff check. Needs to reschedule. Steph Randall RN documented in this encounterMain [facility] Center10-27-2024 Telephone encounter Note * Telephone Encounter - Lee Beltre MD - 12/06/2023 2:36 PM EDT Telephone Encounter Violet Hernandez [id number] Provider: Dr. Katz Surgery: TLH, BSO, cysto on 11/10/2023 w/ fibroid uterus Patient identity verified by name and . Called patient today regarding vaginal bleeding that started yesterday (12/04) on POD # 25. Patient reports some vaginal bleeding yesterday 12/04 was more light pink in toilet after wiping. Today, (12/05) patient notes bright red bleeding after wiping. Unable to quantify amount, but not filling a pad per hour. She reports when she wipes she sees bright red blood, but not noting blood filling a pad. Also endorses pain in stomach, around belly, denies fevers/chills. Endorses some vaginal discomfort 1 out of 10, not bad, but earlier in day rated 4-5. Currently pain is ~ 1 out of 10. Denies lightheadedness, no SOB. Denies sexual intercourse, no tampons in vaginal. Discussed if begins having more vaginal bleeding filling a pad, to present to nearest ED. Discussed with Dr. Weston who informed they will get Ms. Hernandez a follow up appointment with [facility] this week. Counseled installation and repair technician-back precautions including persistent or worsening of symptoms. Patient expressedunderstanding of and agreement with plan of care. All questions and concerns answered adequately. Counseled patient that phone conversation is not equivalent to a formal in- person clinical assessment, i.e. clinical problems cannot always be identified over phone. Welcomed patient to call back anytime and, if concerned, patients have the autonomy/liberty to decide to go the ED. Discussed with [facility] fellow, Dr. Weston. Lee Beltre MD 12/06/23 2:36 PM [facility] Work Phone: 1(956) 873-743010-27-2024 Miscellaneous Notes* Telephone Encounter - Lee Beltre MD - 12/06/2023 2:36 PM EDT Telephone Encounter Violet Hernandez [id number] Provider: Dr. Katz Surgery: TLH, BSO, cysto on 11/10/2023 w/ fibroid uterus Patient identity verified by name and . Called patient today regarding vaginal bleeding that started yesterday (12/04) on POD # 25. Patient reports some vaginal bleeding yesterday 12/04 was more light pink in toilet after wiping. Today, (12/05) patient notes bright red bleeding after wiping. Unable to quantify amount, but not filling a pad per hour. She reports when she wipes she sees bright red blood, but not noting blood filling a pad. Also endorses pain in stomach, around belly, denies fevers/chills. Endorses some vaginal discomfort 1 out of 10, not bad, but earlier in day rated 4-5. Currently pain is ~ 1 out of 10. Denies lightheadedness, no SOB. Denies sexual intercourse, no tampons in vaginal. Discussed if begins having more vaginal bleeding filling a pad, to present to nearest ED. Discussed with Dr. Weston who informed they will get Ms. Hernandez a follow up appointment with [facility] this week. Counseled installation and repair technician-back precautions including persistent or worsening of symptoms. Patient expressedunderstanding of and agreement with plan of care. All questions and concerns answered adequately. Counseled patient that phone conversation is not equivalent to a formal in- person clinical assessment, i.e. clinical problems cannot always be identified over phone. Welcomed patient to call back anytime and, if concerned, patients have the autonomy/liberty to decide to go the ED. Discussed with [facility] fellow, Dr. Weston. Lee Beltre MD 12/06/23 2:36 PM documented in this encounterMain Campus Medical Center10-15-2024 NoteHNO ID: [id number] Author: YENNIFER TOMAS APRN.DRUG SAFETY PHYSICIAN Service: ? Author Type: Nurse Practitioner Type: Progress Notes Filed: 11/24/2023 16:03 Note Text: [facility] Department of Minimally Invasive PLAN CHECKER Surgery [facility] PATIENT NAME: Violet Hernandez DATE: 11/24/2023 Patient Name and verified: Yes Patient Location: [place] This Virtual Visit was completed using My Chart Zoom platform. I have communicated my name and active licensure. The patient's identity and physical location were verified at the time of this visit. Either the patient or their legal patient relations representative has been informed of the risks and benefits of -- and alternatives to -- treatment through a remote evaluation and consents to proceed with the evaluation remotely. Chief Complaint CC/REASON FOR VISIT: Post Op History of Present Illness: Violet is a 38 year old who presents for a post op [facility] visit. SURGERY AND DATE: 11/10/2023 [facility] with Dr. Katz PATHOLOGY: FINAL DIAGNOSIS A. Uterus with cervix, bilateral fallopian tubes and ovaries, Total Laparoscopic Hysterectomy and bilateral salpingo-oophorectomy : - Benign cervix. See comment. - Inactive endometrium with stromal breakdown. 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 - Bilateral fimbriated fallopian tubes with no significant diagnostic alteration. - Ovaries with surface adenofibromatous change and adhesions. Diagnosis Comment The ectocervical squamous epithelium has been denuded. SUBJECTIVE/INTERVAL HISTORY: Violet Hernandez reports that she feels well. No fever or chills. No shortness of breath, cough, or chest pain. No incisional redness, swelling, or drainage. Patient reports that her appetite is good. No abdominal pain, nausea, vomiting, diarrhea, or constipation. No dysuria, gross hematuria, urinary frequency, urinary urgency, or incontinence. Pain controlled. Having some vaginal dryness. Rates post op pain as 2/10 on average the past few days. She is taking OTC pain medications still. Last day taking narcotic pain medication? POD 4 or 5 She is up and moving every 2 hours during the day Past Medical History: PAST MEDICAL HISTORY Diagnosis Date Anxiety Depression Leukopenia Mitral prolapse Premature ovarian failure Family History: Family History Problem Relation Age of Onset Cataract Mother Macular Degen Mother Hypertension Father No Known Problems Sister No Known Problems Brother Breast Cancer Maternal Grandmother 55 Skin Cancer Maternal Grandmother Diabetes Maternal Grandmother Heart disease Maternal Grandfather Heart disease Paternal Grandmother Stroke Paternal Grandfather Past Surgical History: PAST SURGICAL HISTORY Procedure Laterality Date BONE MARROW BIOPSY x 2 COLONOSCOPY SCREENING 11/05/2023 ORAL SURGERY PROCEDURE Social History: Social History Tobacco Use Smoking status: Never Smokeless tobacco: Never Vaping Use Vaping status: Never Used Substance Use Topics Alcohol use: Never Drug use: Never Allergies: ALLERGIES No Known Allergies Allergies updated: Yes Medications: Current Outpatient Medications Medication Sig ibuprofen (MOTRIN) 600 mg tablet Take 1 tablet by mouth every 6 hours as needed for pain. Take with food. Senna 8.6 mg tab Take 2 tablets by mouth two times a day. acetaminophen (TYLENOL) 325 mg tablet Take 2 tablets by mouth every 6 hours as needed for pain. SUTAB 1.479-0.188- 0.225 gram tab as directed. fluvoxaMINE Maleate (LUVOX) 25 mg tablet Take 100 mg by mouth once daily. buPROPion XL (WELLBUTRIN XL) 150 mg 24 hr tablet Take 300 mg by mouth once daily. ARIPiprazole (ABILIFY) 5 mg tablet Take by mouth. No current facility-administered medications for this visit. Medications reviewed in detail and updated PRN. Yes Physical Exam: LMP 06/09/2022 (Within Days) GENERAL: pleasant, euthymic sounding female in no apparent distress Physical exam otherwise deferred Recent labs/Diagnostic studies: I have thoroughly reviewed this patients previous notes, encounters, labs, and results prior to this visit. Assessment and Plan Assessment AND Plan Postop check Premature ovarian failure Orders: estradiol (ESTRACE) 1 mg tablet; Take 1 tablet by mouth once daily. Start oral estrogen. Send Aquest Systemshart message if vaginal issue is not resolved. May benefit from Vaginal estrogen as well 1) Discussed results of pathology and implications with patient. 2) Postop restrictions and wound care reviewed. 3) Keep follow up with Dr. Katz on 01/15/2024. Appointments for Next 60 Days Date Time Provider Location Dept Phone 11/24/2023 4:00 PM YENNIFER TOMAS [facility] [phone] 01/15/2024 1:45 PM LEE KATZ [phone] SIGNATURE: Yennifer Tomas APRN.DRUG SAFETY PHYSICIAN PAGER: [id number] Wert County Hospital10-15-20[facility] History of Present illness Narrative* Yennifer Tomas APRN.CNP - 11/24/2023 3:46 PM EDT Images from the original note were not included. [facility] Minimally Invasive PLAN CHECKER Surgery [facility] PATIENT NAME: Violet Hernandez DATE: 11/24/2023 Patient Name and verified: Yes Patient Location: [place] This Virtual Visit was completed using My Chart Zoom platform. I have communicated my name and active licensure. The patient's identity and physical location wereverified at the time of this visit. Either the patient or their legal patient relations representative has been informed of the risks and benefits of -- and alternatives to -- treatment through a remote evaluation andconsents to proceed with the evaluation remotely. Chief Complaint CC/REASON FOR VISIT: Post Op History of Present Illness: Violet is a 38 year old who presents for a post op [facility] visit. SURGERY & DATE: 11/10/2023 [facility] with Dr. Katz PATHOLOGY: FINAL DIAGNOSIS A. Uterus with cervix, bilateral fallopian tubes and ovaries, Total Laparoscopic Hysterectomy and bilateral salpingo-oophorectomy : - Benign cervix. See comment. - Inactive endometrium with stromal breakdown. 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 - Bilateral fimbriated fallopian tubes with no significant diagnostic alteration. - Ovaries with surface adenofibromatous change and adhesions. Diagnosis Comment The ectocervical squamous epithelium has been denuded. SUBJECTIVE/INTERVAL HISTORY: Violet Hernandez reports that she feels well. No fever or chills. No shortness of breath, cough, or chest pain. No incisional redness, swelling, or drainage. Patient reports that her appetite is good. No abdominal pain, nausea, vomiting, diarrhea, or constipation. Nodysuria, gross hematuria, urinary frequency, urinary urgency, or incontinence. Pain controlled. Having some vaginal dryness. Rates post op pain as 2/10 on average the past few days. She is taking OTC pain medications still. Last day taking narcotic pain medication? POD 4 or 5 She is up and moving every 2 hours during the day Past Medical History: PAST MEDICAL HISTORY Diagnosis Date Anxiety Depression Leukopenia Mitral prolapse Premature ovarian failure Family History: Family History Problem Relation Age of Onset Cataract Mother Macular Degen Mother Hypertension Father No Known Problems Sister No Known Problems Brother Breast Cancer Maternal Grandmother 55 Skin Cancer Maternal Grandmother Diabetes Maternal Grandmother Heart disease Maternal Grandfather Heart disease Paternal Grandmother Stroke Paternal Grandfather Past Surgical History: PAST SURGICAL HISTORY Procedure Laterality Date BONE MARROW BIOPSY x 2 COLONOSCOPY SCREENING 11/05/2023 ORAL SURGERY PROCEDURE Social History: Social History Tobacco Use Smoking status: Never Smokeless tobacco: Never Vaping Use Vaping status: Never Used Substance Use Topics Alcohol use: Never Drug use: Never Allergies: ALLERGIES No Known Allergies Allergies updated: Yes Medications: Current Outpatient Medications Medication Sig ibuprofen (MOTRIN) 600 mg tablet Take 1 tablet by mouth every 6 hours as needed for pain. Take withfood. Senna 8.6 mg tab Take 2 tablets by mouth two times a day. acetaminophen (TYLENOL) 325 mg tablet Take 2 tablets by mouth every 6 hours as needed for pain. SUTAB 1.479-0.188- 0.225 gram tab as directed. fluvoxaMINE Maleate (LUVOX) 25 mg tablet Take 100 mg by mouth once daily. buPROPion XL (WELLBUTRIN XL) 150 mg 24 hr tablet Take 300 mg by mouth once daily. ARIPiprazole (ABILIFY) 5 mg tablet Take by mouth. No current facility-administered medications for this visit. Medications reviewed in detail and updated PRN. Yes Physical Exam: LMP 06/09/2022 (Within Days) GENERAL: pleasant, euthymic sounding female in no apparent distress Physical exam otherwise deferred Recent labs/Diagnostic studies: I have thoroughly reviewed this patients previous notes, encounters, labs, and results prior to this visit. Assessment and Plan Assessment & Plan Postop check Premature ovarian failure Orders: estradiol (ESTRACE) 1 mg tablet; Take 1 tablet by mouth once daily. Start oral estrogen. Send Aquest Systemshart message if vaginal issue is not resolved. May benefit from Vaginal estrogen as well 1) Discussed results of pathology and implications with patient. 2) Postop restrictions and wound care reviewed. 3) Keep follow up with Dr. Katz on 01/15/2024. Appointments for Next 60 Days Date Time Provider Location Dept Phone 11/24/2023 4:00 PM YENNIFER TOMAS [facility] [phone] 01/15/2024 1:45 PM LEE KATZ [facility] [phone] SIGNATURE: Yennifer Tomas APRN.[employer] PAGER: [phone] documented in this encounterMain [facility]10-04-2024 Telephone encounter Note * Telephone Encounter - Tracey Fowler RN - 11/13/2023 12:03 PM EDT Returned patient's call, verified name and . Patient is 3 days s/p Total Laparoscopic Hysterectomy, Bilateral Salpingo-Oophorectomy, Cystoscopy Patient reports some clear discharge coming from umbilical incision and intermittent sharp pains inher right lower quadrant incision yesterday. She is rotating tylenol and motrin as instructed, denies any signs of infection in her incisions. Reviewed infections signs to watch out for, advised her to continue alternating pain medication, and try ice on the incision that is painful if needed, encouraged her to continue frequent walking/movement, but to take breaks and rest if she experiences increased pain. Patient has controller coal or ore installation and repair technician numberand will call with any further concerns. Tracey Fowler RN [facility]10-04-2024 Miscellaneous Notes* Telephone Encounter - Tracey Fowler RN - 11/13/2023 12:03 PM EDT Returned patient's call, verified name and . Patient is 3 days s/p Total Laparoscopic Hysterectomy, Bilateral Salpingo-Oophorectomy, Cystoscopy Patient reports some clear discharge coming from umbilical incision and intermittent sharp pains inher right lower quadrant incision yesterday. She is rotating tylenol and motrin as instructed, denies any signs of infection in her incisions. Reviewed infections signs to watch out for, advised her to continue alternating pain medication, and try ice on the incision that is painful if needed, encouraged her to continue frequent walking/movement, but to take breaks and rest if she experiences increased pain. Patient has controller coal or ore installation and repair technician numberand will call with any further concerns. Tracey Fowler RN * Telephone Encounter - Valentine Crump - 11/13/2023 8:17 AM EDT Pt post hysto and having sharp pains. Wants to know if that's normal. Belly button oozing clear fluid. Please advise [phone] documented in this encounterMain [facility] Medical Center10-04-2024 Telephone encounter Note * Telephone Encounter - Valentine Crump - 11/13/2023 8:17 AM EDT Pt post hysto and having sharp pains. Wants to know if that's normal. Belly button oozing clear fluid. Please advise [phone] [facility]10-03-2024 Telephone encounter Note* Telephone Encounter - Julia Perez RN - 11/12/2023 8:46 AM EDT Images from the original note were not included. [facility] SECTION FOR MINIMALLY INVASIVE GYNECOLOGIC SURGERY AND CHRONIC PELVIC PAIN Postop call Called Patient. Verified name and . POD# NUMBERS 1-12: [address] Katz. Procedure: (from op note) Total Laparoscopic Hysterectomy, Bilateral Salpingo- Oophorectomy, Cystoscopy Reassured regarding typical pain and recovery following laparoscopic surgery. Reviewed pain medication use for optimal postoperative pain control. Reminded to ambulate every 2 hours while awake Reminded of normal return of bowel function, management of constipation. Reminded contact numbers are listed in their postop instructions After hours fellow installation and repair technician [phone] Office number [phone] (M-F, 8-4:30) Patient advised to call 911 or report to ED Fever (temperature greater than 100.4 degrees) Pain that is worsening or not relieved by pain medications. Nausea, vomiting or diarrhea that is not improving Blood, pus, or opening of incision(s) Heavy vaginal bleeding (more than a period) Shortness of breath Swollen or tender lower leg Lightheadedness, dizziness, or fainting Patient expressed understanding. Post op appointment: Future appointments: Future Appointments Date Time Provider Department Center 11/24/2023 4:00 PM Yennifer Tomas APRN.[facility] 01/15/2024 1:45 PM Lee Katz DO [facility] 05/20/2024 4:00 PM Sherly Ng APRN.[facility] [place] Patient questions/concerns: NONE [facility]10-03-2024 Miscellaneous Notes* Telephone Encounter - Julia Perez RN - 11/12/2023 8:46 AM EDT Images from the original note were not included. [facility] SECTION FOR MINIMALLY INVASIVE GYNECOLOGIC SURGERY AND CHRONIC PELVIC PAIN Postop call Called Patient. Verified name and . POD# NUMBERS 1-12: [address] Katz. Procedure: (from op note) Total Laparoscopic Hysterectomy, Bilateral Salpingo- Oophorectomy, Cystoscopy Reassured regarding typical pain and recovery following laparoscopic surgery. Reviewed pain medication use for optimal postoperative pain control. Reminded to ambulate every 2 hours while awake Reminded of normal return of bowel function, management of constipation. Reminded contact numbers are listed in their postop instructions After hours fellow installation and repair technician [phone] Office number [phone] (M-F, 8-4:30) Patient advised to call 911 or report to ED Fever (temperature greater than 100.4 degrees) Pain that is worsening or not relieved by pain medications. Nausea, vomiting or diarrhea that is not improving Blood, pus, or opening of incision(s) Heavy vaginal bleeding (more than a period) Shortness of breath Swollen or tender lower leg Lightheadedness, dizziness, or fainting Patient expressed understanding. Post op appointment: Future appointments: Future Appointments Date Time Provider Department Center 11/24/2023 4:00 PM Yennifer Tomas APRN.CNP [facility] 01/15/2024 1:45 PM Lee Katz DO [facility] 05/20/2024 4:00 PM Sherly Ng APRN.CNP [facility] [place] Patient questions/concerns: NONE documented in this encounterMain [facility] Medical Center10-02-2024 Telephone encounter Note * Telephone Encounter - Jeanie Yu APRN.CNP - 11/11/2023 11:51 AM EDT Is she having any symptoms that she needs the HRT now? It looks like she has been in POI since 2010. If no symptoms, she can wait to discuss at her postop appt or with her primary controller coal or ore. Jeanie Yu APRN.CNP [facility]10-02-2024 Miscellaneous Notes* Telephone Encounter - Jeanie Yu APRN.CNP - 11/11/2023 11:51 AM EDT Is she having any symptoms that she needs the HRT now? It looks like she has been in POI since 2010. If no symptoms, she can wait to discuss at her postop appt or with her primary controller coal or ore. Jeanie Yu APRN.CNP * Telephone Encounter - Janice Weeks RN - 11/11/2023 11:23 AM EDT Called pt. Verified name/ S/p 11/10/23 - Total Laparoscopic Hysterectomy, Bilateral Salpingo-Oophorectomy, Cystoscopy Pt thought she heard the Resident say she was going to send a Rx for Estrogen to her [facility]. No Rx ordered. Pt agreeable to discuss during her 2 week post op visit on 11/23/23 with Yennifer Tomas CNP. Routing to [facility]/MIGS DREDGE PUMP OPERATOR Pool. Janice Weeks RN November 11, 2023 11:23 AM * Telephone Encounter - Evelyn Harper - 11/11/2023 10:12 AM EDT Reason for call: other - Patient question Provider name: Mikie Additional comments: Patient called in and stated she thought that the doctor advised her that she would send Estrogen to the pharmacy for her. Surgery yesterday Recommendation: routed to nurse triage pool Last visit in this department: Visit date not found Last distance health visit in this department: Visit date not found Next visit in this department: Visit date not found 11/24/2023 in PLAN CHECKER [facility] with YENNIFER TOMAS - 2 WEEK POST OP 01/15/2024 in PLAN [facility]ER [facility] with ELE KATZ - 6 WEEK POST OP 05/20/2024 in MAINTENANCE SUPERVISOR [facility] [place] SHERLY NG - annual exam Thanks Evelyn documented in this encounterMain [facility] Medical Center10-02-2024 Telephone encounter Note * Telephone Encounter - Janice Weeks RN - 11/11/2023 11:23 AM EDT Called pt. Verified name/ S/p 11/10/23 - Total Laparoscopic Hysterectomy, Bilateral Salpingo-Oophorectomy, Cystoscopy Pt thought she heard the Resident say she was going to send a Rx for Estrogen to her [facility]. No Rx ordered. Pt agreeable to discuss during her 2 week post op visit on 11/23/23 with Yennifer Tomas CNP. Routing to [facility]/MIGS DREDGE PUMP OPERATOR Pool. Janice Weeks, RN November 11, 2023 11:23 AM [facility]10-02-20[facility] Telephone encounter Note* Telephone Encounter - Evelyn Harper - 11/11/2023 10:12 AM EDT Reason for call: other - Patient question Provider name: Mikie Additional comments: Patient called in and stated she thought that the doctor advised her that she would send Estrogen to the pharmacy for her. Surgery yesterday Recommendation: routed to nurse triage pool Last visit in this department: Visit date not found Last distance health visit in this department: Visit date not found Next visit in this department: Visit date not found 11/24/2023 in [facility] with YENNIFER TOMAS - 2 WEEK POST OP 01/15/2024 in [facility] with LEE KATZ - 6 WEEK POST OP 05/20/2024 in MAINTENANCE SUPERVISOR WSTR [facility] with SHERLY NG - annual exam Thanks Evelyn [facility]10-01-2024 NoteHNO ID: [id number] Author: BLAKE QUINTERO APRN.FIELD ARTILLERY SENIOR SERGEANT Service: ? Author Type: Nurse Linseed Cake Trimmer Type: Anesthesia Procedure Notes Filed: 11/10/2023 14:27 Note Text: ANESTHESIOLOGY PROCEDURE NOTE PIV General Information Procedure Start Time/Medication Administration: 11/10/2023 2:15 PM Procedure End Time: 11/10/2023 2:15 PM Patient Location: OR Staffing Anesthesiologist: Venkat Osullivan MD Performed by: anesthesiologist Preparation Sterility Preparation: hand hygiene performed prior to procedure, surgical cap used, mask used, skin prep agent completely dried prior to procedure Site Prep: alcohol Procedure Details Indication: need for IV access Needle Size/Type: 16 gauge angiocath Orientation: Left Location: Hand Imaging Guidance Used: No SIGNATURE: Blake Quintero APRN.FIELD ARTILLERY SENIOR SERGEANT PATIENT NAME: Violet Hernandez DATE: November 10, 2023 TIME: 2:27 PM CSN: [id number] Wert County Hospital10-01-2024 NoteHNO ID: [id number] Author: BLAKE QUINTERO APRN.FIELD ARTILLERY SENIOR SERGEANT Service: ? Author Type: Nurse Linseed Cake Trimmer Type: Anesthesia Procedure Notes Filed: 11/10/2023 14:26 Note Text: ANESTHESIOLOGY PROCEDURE NOTE Airway General Information Procedure Start Time/Medication Administration: 11/10/2023 2:11 PM Procedure End Time: 11/10/2023 2:11 PM Patient location during procedure: OR Patient identity confirmed: arm band Staffing FIELD ARTILLERY SENIOR SERGEANT: Blake Quintero APRN.FIELD ARTILLERY SENIOR SERGEANT Performed by: GURINDER Indications and Patient Condition Indications for airway management: anesthesia Preoxygenated: yes anesthesia circuit Patient position: sniffing Method: asleep Difficult Mask: No Final Airway Details Final airway type: endotracheal airway Final Endotracheal Airway: ETT Cuffed: yes Successful intubation technique: video laryngoscopy Devices used: [employer] Endotracheal tube insertion site: oral Blade size: #3 ETT size (mm): 7.0 Measured from: lips Measurement (cm): 19 Placement verified by: capnometry Cormack-Lehane Classification: grade I - full view of glottis Number of attempts at approach: 1 Airway not difficult SIGNATURE: Blake Quintero APRN.FIELD ARTILLERY SENIOR SERGEANT PATIENT NAME: Violet Hernadnez DATE: November 10, 2023 TIME: 2:26 PM CSN: [id number] Wert County Hospital09-30-2024 Telephone encounter Note* Telephone Encounter - Ana Cristina Walker LPN - 11/09/2023 12:08 PM EDT Received office visit from Dr. Saenz office. Scanned into [facility] through Onbase scanning. Ana Cristina Walker LPN [facility]09-30-2024 Miscellaneous Notes* Telephone Encounter - Ana Cristina Walker LPN - 11/09/2023 12:08 PM EDT Received office visit from Dr. Saenz office. Scanned into [employer] through Onbase scanning. Ana Cristina Walker LPN * Telephone Encounter - Ana Cristina Walker LPN - 11/06/2023 3:51 PM EDT Called and left message with Dr. Saenz office requesting most recent office visit for upcoming surgery. Ana Cristina Walker LPN * Telephone Encounter - Ana Cristina Walker LPN - 11/06/2023 3:48 PM EDT Received [facility] office visit and hematology office visit. Scanned into [facility] through Onbase scanning. Ana Cristina Walker LPN documented in this encounterMain Campus Medical Center09-27-2024 Telephone encounter Note * Telephone Encounter - Ana Cristina Walker LPN - 11/06/2023 3:51 PM EDT Called and left message with Dr. Saenz office requesting most recent office visit for upcoming surgery. Ana Cristina Walker LPN [facility]09-27-2024 Telephone encounter Note* Telephone Encounter - Ana Cristina Walker LPN - 11/06/2023 3:48 PM EDT Received [facility] office visit and hematology office visit. Scanned into [employer] through Onbase scanning. Ana Cristina Walker LPN [facility]09-27-2024 History and physical note* Adeline Jama APRN.DRUG SAFETY PHYSICIAN - 11/06/2023 1:50 PM EDT Images from the original note were not included. [facility] HISTORY AND PHYSICAL EXAMINATION SERVICE DATE: 11/06/2023 SERVICE TIME: 9:53 AM PRIMARY CARE PHYSICIAN: Emily Sanders MD Assessment Patient has the following medical conditions which may affect laverne-operative course: Leukopenia Assessment: chronic WBC Date Value Ref Range Status 11/06/2023 2.80 (L) 3.70 - 11.00 k/uL Final 10/06/23 Dr. Braun, Hematology [place] Thrombocytopenia (HCC) Assessment: Platelet Count Date Value Ref Range Status 11/06/2023 110 (L) 150 - 400 k/uL Final Fatty liver Assessment: per pt report Albumin (g/dL) Date Value 11/06/2023 4.3 Bilirubin, Total (mg/dL) Date Value 11/06/2023 0.3 Alkaline Phosphatase (U/L) Date Value 11/06/2023 69 AST (U/L) Date Value 11/06/2023 59 (H) ALT (U/L) Date Value 11/06/2023 80 (H) Protein, Total (g/dL) Date Value 11/06/2023 6.5 Mitral valve prolapse Assessment: hx, asymptomatic, following cardiology 11/03/22 Javi Rivero CNP, [facility] BCC (basal cell carcinoma of skin) Assessment: s/p excision Mixed anxiety depressive disorder Assessment: stable on rx per pt Obesity, Class I, BMI 30-34.9 Assessment: Body mass index is 33.02 kg/m . Bedoya Activity Status Index: METS: Climb a flight of stairs or walk up a hill (5.50 METs) DASI Score: 5.5 Patient denies any chest pain or undue shortness of breath with the above physical activity. Clinical Frailty Scale: 3. Well, with treated comorbid disease STOP-Bang Score: Snores loudly Denies feeling tired, fatigued, or sleepy during the daytime Has not been observed to stop breathing or choking/gasping during sleep Denies having high blood pressure BMI less than or equal to 35 kg/m^2 Patient 50 years old or younger Does not have a large neck Non-male patient STOP-Bang Score: 1 [id number] Score: Age: <65 Sex: female CHF history: No Hypertension history: No Stroke/TIA/thromboembolism history: No Vascular disease history: No Diabetes history: No [id number] Score: 1 ARISCAT Score: Age: <=50 Preoperative SpO2: >=96% Respiratory infection in the last month: No Preoperative anemia: No Surgical incision: peripheral Duration of surgery: >3 hrs Emergency procedure: No ARISCAT Score: 23 ANESTHESIA FINDINGS: Intubation History: No history of difficult intubation Significant Anesthesia Considerations: none Airway History: No history of difficult airway I - PHYSICAL EVALUATION AIRWAY Patient intubated: No. Tracheostomy tube not present Mallampati: III. TM distance: >3 FB. Neck ROM: full ROM without neurological symptoms. Mouth opening: adequate. Short neck: no. Thick neck: yes Hadley present: no Lip Bite Test: I Microretrognathia/Micronagthia/Recessed Chin: No DENTAL Dental findings: teeth intact. II - ANESTHESIA PLAN Anesthetic Plan: other Beta Alber Monitoring Plan Post Procedure Analgesic Plan Prepared for Surgery: optimally prepared for surgery, pending [see comment]. Labs-reviewedwoodrow- CONSULTS: Patient does not require consults for optimization at this time Planned Anesthetic: other anesthesia choice The Following Tests/Procedures Have Been Initiated: Orders Placed This Encounter >CBC + AUTO DIFF Standing Status: Future Number of Occurrences: 1 Standing Expiration Date: 02/05/2024 >CMP Standing Status: Future Number of Occurrences: 1 Standing Expiration Date: 02/05/2024 SUTAB 1.479-0.188- 0.225 gram tab Sig: as directed. REASON FOR VISIT: Violet Hernandez is a 38 year old female who is scheduled for Procedure(s): LAPAROSCOPIC HYSTERECTOMY TOTAL FOR UTERUS 250 G OR LESS W/REMOVAL TUBE(S) AND/OR OVARY(S) (N/A) CYSTOSCOPY (N/A) at the request of Lee Perez DO for consultation. My final recommendation will be communicated back to the requesting physician by way of shared medical record or letter. Subjective The patient has the following: COVID-19 Immunization Status Overdue - Covid-19 Vaccine ( season) Overdue since 10/11/2023 12/26/2020 Imm Admin: COVID-19 original vaccine, age 12+ yr, monovalent (DevHD - PURPLE TOP) 12/05/2020 Imm Admin: COVID-19 original vaccine, age 12+ yr, monovalent (DevHD - PURPLE TOP) CHIEF COMPLAINT: Pre-op exam HPI: Violet Hernandez is a 38 year old seen for PAC due to scheduled above surgery because of uterine fibroid. 10/26/2023, Dr. Katz CHIEF COMPLAINT: Fibroid, pelvic pain HISTORY OF PRESENT ILLNESS: Violet Hernandez is a pleasant 37 year old female who presents for evaluation of Fibroids. She reports that she has known about her fibroid for a few years, and was told it has increased in size. Endorses lower abdominal pain and pressure, especially with bending and activity. Denies anyabnormal uterine bleeding. Was diagnosed with POI at age 20 and is currently on Khadra for control. Takes this medication continuously and does not get monthly menses. Sexually active without any issues. Endorses some vaginal dryness and spotting after intercourse. Endorses abdominal bloating and occasional constipation/diarrhea, is scheduled for GI consultation and colonoscopy. She is interested in hysterectomy for surgical management. Is not interested in future fertility. Last pap 05/07/2021 normal HPV negative Ultrasound 06/27/2023 IMPRESSION: Ovaries not visualized. 7.4 cm fibroid. RESULT: Uterus: -Size: 6.5 x 3.0 x 5.0 cm -Orientation: Anteverted -Endometrial echo complex: Evaluation of the endometrium was adequate. No endometrial abnormality. The endometrial echo complex measured 0.8 cm. -Cervix: Unremarkable. -Adenomyosis assessment: There are no sonographic findings of adenomyosis. -Fibroids: Fibroid # 1 -Size: Anterior fundus cm -Location: 7.0 x 6.5 x 7.4 -Type: Hybrid -Imaging features: Typical imaging features -Differential: None Right Ovary: Not identified. Left Ovary: Not identified. Free Fluid: No abnormal free fluid is present. REVIEW OF SYSTEMS: General: No weight loss, malaise or fevers. Neurological: No history of TIA's, stroke, HEPATOLOGY PHYSICIAN tumor, impaired sensorium, hemiplegia, paraplegia orquadraplegia. No neurological symptoms or problems. Respiratory: No history of current cough or dyspnea, or pneumonia in the past 6 weeks. No history of respiratory/pulmonary symptoms or problems. Cardiovascular: Positive for: murmur/valvular heart disease (hx MVP) Negative for: abdominal aortic aneurysm, AICD/PPM, angina, anticoagulation therapy, arrhythmia, atrial fibrillation, CAD, chest pain, CHF, congenital heart defect, DVT/PE, hyperlipidemia, hypertension, recent PR, PVD, open heart surgery and valve surgery. GI: +IBS vs microscopic colitis, s/p colonoscopy yesterday at [facility] Positive for: liver disease (fatty liver) : No history of dysuria, frequency or incontinence, stones or chronic kidney disease. No difficulty urinating, nocturia > 1 time per night or hematuria. PLAN CHECKER: See HPI. Endocrine: No history of diabetes. Has not taken steroids within the past 30 days. No history of endocrinological symptoms or problems. Hematology: Positive for: anemia and thrombocytopenia. Negative for: bruises/bleeds easily, transfusion of at least 4 units within 72 hours prior to surgery and chronic anti-coagulation/platelet meds. Oncology: BCC s/p excision Psych: Positive for: anxiety (on rx) and depression (on rx). Musculoskeletal: Negative for joint pain or swelling, back pain or muscle pain. Skin: Negative for lesions, rash and itching. PAST MEDICAL HISTORY Diagnosis Date Anxiety Depression Leukopenia Mitral prolapse Premature ovarian failure PAST SURGICAL HISTORY Procedure Laterality Date BONE MARROW BIOPSY x 2 COLONOSCOPY SCREENING 11/05/2023 ORAL SURGERY PROCEDURE FAMILY HISTORY Problem Relation Age of Onset Cataract Mother Macular Degen Mother Hypertension Father No Known Problems Sister No Known Problems Brother Breast Cancer Maternal Grandmother 55 Skin Cancer Maternal Grandmother Diabetes Maternal Grandmother Heart disease Maternal Grandfather Heart disease Paternal Grandmother Stroke Paternal Grandfather Social History Tobacco Use Smoking status: Never Smokeless tobacco: Never Vaping Use Vaping status: Never Used Substance Use Topics Alcohol use: Never Drug use: Never Prior to Admission medications as of 11/09/23 1158 Medication Sig Last Dose Taking SUTAB 1.479-0.188- 0.225 gram tab as directed. Taking Yes Drospirenone-Ethinyl Estradiol (KOKI, 28,) 3-0.03 mg per tablet Take 1 tablet by mouth once daily. FOR CONTINUOUS USE - Take only hormone pills, skipping placebo pills. Taking Yes fluvoxaMINE Maleate (LUVOX) 25 mg tablet Take 100 mg by mouth once daily. Taking Yes buPROPion XL (WELLBUTRIN XL) 150 mg 24 hr tablet Take 300 mg by mouth once daily. Taking Yes ARIPiprazole (ABILIFY) 5 mg tablet Take by mouth. Taking Yes No medication comments found. ALLERGIES No Known Allergies Objective PHYSICAL EXAM: General: alert and oriented (x3), healthy appearance and obese. Pertinent negatives noted - not distressed. Skin: normal color, no rash or lesions. HEENT: EOM intact and pupils equal round. Pertinent negatives noted - no carotid bruit. Cardiovascular: regular rate and rhythm, normal S1 and S2, no rub, murmurs, or gallop. Respiratory: normal breath sounds, no wheezes or crackles. No chest wall deformity or tenderness. Abdomen: soft. Pertinent negatives noted - not tender. Extremities: no deformity, no edema or tenderness, no joint swelling or clubbing. Neurological: normal cognition and motor skills. Gait normal. No weakness or sensory deficit. PAIN ASSESSMENT: Pain Pain Level: 2 Pain Location: Abdomen Description: Aching Duration Amount of Time: 2 Duration Units: Days Frequency: Intermittent VITALS: BP 122/76 Pulse 73 Temp (Src) 97.9 (Temporal) Resp 16 Ht 4' 10 (1.47m) Wt 158 lb (71.7kg) SpO2 98% LMP 06/09/2022 BMI 33.03 kg/(m^2). Diagnostic tests reviewed for today's visit: Lab Value Units Date High Low HB 11.5 g/dL 11/06/2023 15.5 11.5 HCT 33.7 % 11/06/2023 46.0 36.0 WBC 2.80 k/uL 11/06/2023 11.00 3.70 PLT 110 k/uL 11/06/2023 400 150 NA 141 mmol/L 11/06/2023 144 136 K 3.7 mmol/L 11/06/2023 5.1 3.7 GLUC 133 mg/dL 11/06/2023 99 74 BUN 9 mg/dL 11/06/2023 21 7 CREAT 0.76 mg/dL 11/06/2023 0.96 0.58 PTSEC No results within date range. INR No results within date range. APTT No results within date range. ALT 80 U/L 11/06/2023 38 7 AST 59 U/L 11/06/2023 35 13 TBILI 0.3 mg/dL 11/06/2023 1.3 0.2 TSH No results within date range. Lab Value Units Date High Low HCGQT No results within date range. UHCG No results within date range. HCG, BODY* No results within date range. Lab Value Units Date High Low ABORHD No results within date range. ABSCREEN No results within date range. No results found for: HBA1C No results found for this or any previous visit (from the past 8760 hour(s)). No results found for this or any previous visit (from the past 04373 hour(s)). Instructions Given to Patient: Instructions located in the after visit summary. Patient given verbal and written preop instructions and voices comprehension and compliance. SIGNATURE: Adeline Jama APRN.CNP PATIENT NAME: Violet Hernandez DATE: November 06, 2023 TIME: 1:50 PM PAGER/CONTACT #: [email or web address] History and physical note* Adeline Jama APRN.CNP - 11/06/2023 1:50 PM EDT Images from the original note were not included. [facility] HISTORY AND PHYSICAL EXAMINATION SERVICE DATE: 11/06/2023 SERVICE TIME: 9:53 AM PRIMARY CARE PHYSICIAN: Emily Sanders MD Assessment Patient has the following medical conditions which may affect laverne-operative course: Leukopenia Assessment: chronic WBC Date Value Ref Range Status 11/06/2023 2.80 (L) 3.70 - 11.00 k/uL Final 10/06/23 Dr. Braun, Hematology [facility] Thrombocytopenia (HCC) Assessment: Platelet Count Date Value Ref Range Status 11/06/2023 110 (L) 150 - 400 k/uL Final Fatty liver Assessment: per pt report Albumin (g/dL) Date Value 11/06/2023 4.3 Bilirubin, Total (mg/dL) Date Value 11/06/2023 0.3 Alkaline Phosphatase (U/L) Date Value 11/06/2023 69 AST (U/L) Date Value 11/06/2023 59 (H) ALT (U/L) Date Value 11/06/2023 80 (H) Protein, Total (g/dL) Date Value 11/06/2023 6.5 Mitral valve prolapse Assessment: hx, asymptomatic, following cardiology 11/03/22 Javi Rivero CNP, [facility] BCC (basal cell carcinoma of skin) Assessment: s/p excision Mixed anxiety depressive disorder Assessment: stable on rx per pt Obesity, Class I, BMI 30-34.9 Assessment: Body mass index is 33.02 kg/m . Bedoya Activity Status Index: METS: Climb a flight of stairs or walk up a hill (5.50 METs) DASI Score: 5.5 Patient denies any chest pain or undue shortness of breath with the above physical activity. Clinical Frailty Scale: 3. Well, with treated comorbid disease STOP-Bang Score: Snores loudly Denies feeling tired, fatigued, or sleepy during the daytime Has not been observed to stop breathing or choking/gasping during sleep Denies having high blood pressure BMI less than or equal to 35 kg/m^2 Patient 50 years old or younger Does not have a large neck Non-male patient STOP-Bang Score: 1 [id number] Score: Age: <65 Sex: female CHF history: No Hypertension history: No Stroke/TIA/thromboembolism history: No Vascular disease history: No Diabetes history: No [id number] Score: 1 ARISCAT Score: Age: <=50 Preoperative SpO2: >=96% Respiratory infection in the last month: No Preoperative anemia: No Surgical incision: peripheral Duration of surgery: >3 hrs Emergency procedure: No ARISCAT Score: 23 ANESTHESIA FINDINGS: Intubation History: No history of difficult intubation Significant Anesthesia Considerations: none Airway History: No history of difficult airway I - PHYSICAL EVALUATION AIRWAY Patient intubated: No. Tracheostomy tube not present Mallampati: III. TM distance: >3 FB. Neck ROM: full ROM without neurological symptoms. Mouth opening: adequate. Short neck: no. Thick neck: yes Hadley present: no Lip Bite Test: I Microretrognathia/Micronagthia/Recessed Chin: No DENTAL Dental findings: teeth intact. II - ANESTHESIA PLAN Anesthetic Plan: other Beta Alber Monitoring Plan Post Procedure Analgesic Plan Prepared for Surgery: optimally prepared for surgery, pending [see comment]. Labs-reviewed, woodrow jeter CONSULTS: Patient does not require consults for optimization at this time Planned Anesthetic: other anesthesia choice The Following Tests/Procedures Have Been Initiated: Orders Placed This Encounter >CBC + AUTO DIFF Standing Status: Future Number of Occurrences: 1 Standing Expiration Date: 02/05/2024 >CMP Standing Status: Future Number of Occurrences: 1 Standing Expiration Date: 02/05/2024 SUTAB 1.479-0.188- 0.225 gram tab Sig: as directed. REASON FOR VISIT: Violet Hernandez is a 38 year old female who is scheduled for Procedure(s): LAPAROSCOPIC HYSTERECTOMY TOTAL FOR UTERUS 250 G OR LESS W/REMOVAL TUBE(S) AND/OR OVARY(S) (N/A) CYSTOSCOPY (N/A) at the request of Lee Perez DO for consultation. My final recommendation will be communicated back to the requesting physician by way of shared medical record or letter. Subjective The patient has the following: COVID-19 Immunization Status Overdue - Covid-19 Vaccine () Overdue since 10/11/2023 12/26/2020 Imm Admin: COVID-19 original vaccine, age 12+ yr, monovalent (PFIZER- BIONTECH - PURPLE TOP) 12/05/2020 Imm Admin: COVID-19 original vaccine, age 12+ yr, monovalent (PFIZER- BIONTECH - PURPLE TOP) CHIEF COMPLAINT: Pre-op exam HPI: Violet Hernandez is a 38 year old seen for PAC due to scheduled above surgery because of uterine fibroid. 10/26/2023, Dr. Katz CHIEF COMPLAINT: Fibroid, pelvic pain HISTORY OF PRESENT ILLNESS: Violet Hernandez is a pleasant 37 year old female who presents for evaluation of Fibroids. She reports that she has known about her fibroid for a few years, and was told it has increased in size. Endorses lower abdominal pain and pressure, especially with bending and activity. Denies anyabnormal uterine bleeding. Was diagnosed with POI at age 20 and is currently on Khadra for control. Takes this medication continuously and does not get monthly menses. Sexually active without any issues. Endorses some vaginal dryness and spotting after intercourse. Endorses abdominal bloating and occasional constipation/diarrhea, is scheduled for GI consultation and colonoscopy. She is interested in hysterectomy for surgical management. Is not interested in future fertility. Last pap 05/07/2021 normal HPV negative Ultrasound 06/27/2023 IMPRESSION: Ovaries not visualized. 7.4 cm fibroid. RESULT: Uterus: -Size: 6.5 x 3.0 x 5.0 cm -Orientation: Anteverted -Endometrial echo complex: Evaluation of the endometrium was adequate. No endometrial abnormality. The endometrial echo complex measured 0.8 cm. -Cervix: Unremarkable. -Adenomyosis assessment: There are no sonographic findings of adenomyosis. -Fibroids: Fibroid # 1 -Size: Anterior fundus cm -Location: 7.0 x 6.5 x 7.4 -Type: Hybrid -Imaging features: Typical imaging features -Differential: None Right Ovary: Not identified. Left Ovary: Not identified. Free Fluid: No abnormal free fluid is present. REVIEW OF SYSTEMS: General: No weight loss, malaise or fevers. Neurological: No history of TIA's, stroke, HEPATOLOGY PHYSICIAN tumor, impaired sensorium, hemiplegia, paraplegia orquadraplegia. No neurological symptoms or problems. Respiratory: No history of current cough or dyspnea, or pneumonia in the past 6 weeks. No history of respiratory/pulmonary symptoms or problems. Cardiovascular: Positive for: murmur/valvular heart disease (hx MVP) Negative for: abdominal aortic aneurysm, AICD/PPM, angina, anticoagulation therapy, arrhythmia, atrial fibrillation, CAD, chest pain, CHF, congenital heart defect, DVT/PE, hyperlipidemia, hypertension, recent PR, PVD, open heart surgery and valve surgery. GI: +IBS vs microscopic colitis, s/p colonoscopy yesterday at [facility] Positive for: liver disease (fatty liver) : No history of dysuria, frequency or incontinence, stones or chronic kidney disease. No difficulty urinating, nocturia > 1 time per night or hematuria. PLAN CHECKER: See HPI. Endocrine: No history of diabetes. Has not taken steroids within the past 30 days. No history of endocrinological symptoms or problems. Hematology: Positive for: anemia and thrombocytopenia. Negative for: bruises/bleeds easily, transfusion of at least 4 units within 72 hours prior to surgery and chronic anti-coagulation/platelet meds. Oncology: BCC s/p excision Psych: Positive for: anxiety (on rx) and depression (on rx). Musculoskeletal: Negative for joint pain or swelling, back pain or muscle pain. Skin: Negative for lesions, rash and itching. PAST MEDICAL HISTORY Diagnosis Date Anxiety Depression Leukopenia Mitral prolapse Premature ovarian failure PAST SURGICAL HISTORY Procedure Laterality Date BONE MARROW BIOPSY x 2 COLONOSCOPY SCREENING 11/05/2023 ORAL SURGERY PROCEDURE FAMILY HISTORY Problem Relation Age of Onset Cataract Mother Macular Degen Mother Hypertension Father No Known Problems Sister No Known Problems Brother Breast Cancer Maternal Grandmother 55 Skin Cancer Maternal Grandmother Diabetes Maternal Grandmother Heart disease Maternal Grandfather Heart disease Paternal Grandmother Stroke Paternal Grandfather Social History Tobacco Use Smoking status: Never Smokeless tobacco: Never Vaping Use Vaping status: Never Used Substance Use Topics Alcohol use: Never Drug use: Never Prior to Admission medications as of 11/09/23 1158 Medication Sig Last Dose Taking SUTAB 1.479-0.188- 0.225 gram tab as directed. Taking Yes Drospirenone-Ethinyl Estradiol (KOKI, 28,) 3-0.03 mg per tablet Take 1 tablet by mouth once daily. FOR CONTINUOUS USE - Take only hormone pills, skipping placebo pills. Taking Yes fluvoxaMINE Maleate (LUVOX) 25 mg tablet Take 100 mg by mouth once daily. Taking Yes buPROPion XL (WELLBUTRIN XL) 150 mg 24 hr tablet Take 300 mg by mouth once daily. Taking Yes ARIPiprazole (ABILIFY) 5 mg tablet Take by mouth. Taking Yes No medication comments found. ALLERGIES No Known Allergies Objective PHYSICAL EXAM: General: alert and oriented (x3), healthy appearance and obese. Pertinent negatives noted - not distressed. Skin: normal color, no rash or lesions. HEENT: EOM intact and pupils equal round. Pertinent negatives noted - no carotid bruit. Cardiovascular: regular rate and rhythm, normal S1 and S2, no rub, murmurs, or gallop. Respiratory: normal breath sounds, no wheezes or crackles. No chest wall deformity or tenderness. Abdomen: soft. Pertinent negatives noted - not tender. Extremities: no deformity, no edema or tenderness, no joint swelling or clubbing. Neurological: normal cognition and motor skills. Gait normal. No weakness or sensory deficit. PAIN ASSESSMENT: Pain Pain Level: 2 Pain Location: Abdomen Description: Aching Duration Amount of Time: 2 Duration Units: Days Frequency: Intermittent VITALS: BP 122/76 Pulse 73 Temp (Src) 97.9 (Temporal) Resp 16 Ht 4' 10 (1.47m) Wt 158 lb (71.7kg) SpO2 98% LMP 06/09/2022 BMI 33.03 kg/(m^2). Diagnostic tests reviewed for today's visit: Lab Value Units Date High Low HB 11.5 g/dL 11/06/2023 15.5 11.5 HCT 33.7 % 11/06/2023 46.0 36.0 WBC 2.80 k/uL 11/06/2023 11.00 3.70 PLT 110 k/uL 11/06/2023 400 150 NA 141 mmol/L 11/06/2023 144 136 K 3.7 mmol/L 11/06/2023 5.1 3.7 GLUC 133 mg/dL 11/06/2023 99 74 BUN 9 mg/dL 11/06/2023 21 7 CREAT 0.76 mg/dL 11/06/2023 0.96 0.58 PTSEC No results within date range. INR No results within date range. APTT No results within date range. ALT 80 U/L 11/06/2023 38 7 AST 59 U/L 11/06/2023 35 13 TBILI 0.3 mg/dL 11/06/2023 1.3 0.2 TSH No results within date range. Lab Value Units Date High Low HCGQT No results within date range. UHCG No results within date range. HCG, BODY* No results within date range. Lab Value Units Date High Low ABORHD No results within date range. ABSCREEN No results within date range. No results found for: HBA1C No results found for this or any previous visit (from the past 8760 hour(s)). No results found for this or any previous visit (from the past 03439 hour(s)). Instructions Given to Patient: Instructions located in the after visit summary. Patient given verbal and written preop instructions and voices comprehension and compliance. SIGNATURE: Adeline Jama APRN.CNP PATIENT NAME: Violet Hernandez DATE: November 06, 2023 TIME: 1:50 PM PAGER/CONTACT #: [facility] Instructions* Patient Instructions* Adeline Jama APRN.CNP - 11/06/2023 1:42 PM EDT Images from the original note were not included. [facility] Pre[facility]est[facility] PATIENT PREOPERATIVE INSTRUCTIONS No ref. provider found has scheduled you for your procedure at this surgery center: [facility] Scheduling Office: [phone] --[address] [place] [address]. Please read below carefully for your personalized instructions. Dietary Restrictions: - No solid food after midnight. - You may have 12 ounces of clear liquids (water, clear juices such as apple juice or gatorade, carbonated beverages, clear tea, black coffee, jello) until 2 hours before scheduled arrival at facility. No red/purple coloring and no creamer/sugar Medications: Unless instructed differently below, stay on all of your medications until your surgery. If you start any new medications after today's visit, please contact your surgeon. Pre-Surgery Med Instructions Medication Instructions Drospirenone-Ethinyl Estradiol (KOKI, 28,) 3-0.03 mg per tablet Take the day of surgery with a small sip of water fluvoxaMINE Maleate (LUVOX) 25 mg tablet Take the day of surgery with a small sip of water buPROPion XL (WELLBUTRIN XL) 150 mg 24 hr tablet Take the day of surgery with a small sip of water ARIPiprazole (ABILIFY) 5 mg tablet Take the day of surgery with a small sip of water If you start any new medications after today's visit, please contact the surgeon's office. Blood Thinning Medications: - Stop NSAIDS (Ibuprofen, Advil, Aleve, Motrin, Celebrex, Mobic, etc.) 7 days before surgery, as directed by your surgeon. - Stop Aspirin 7 days before surgery, as directed by your surgeon. - Stop Vitamin E, ALL multi-vitamins, herbals and dietary supplements 7 days before surgery. - You may take Tylenol (Acetaminophen) or any of your pain medications that do not contain aspirin or NSAIDS as needed. Important Reminders: - Candy, mints, and tobacco products are NOT permitted the morning of surgery. - Hearing aids, dentures and glasses may be worn the morning of surgery. - NO jewelry, body piercings, makeup, hairpins or contacts are to be worn the day of surgery. If you develop symptoms such as a fever, cold, or flu, or have other changes to your health within TWO DAYS of scheduled surgery or the morning of surgery, please contact the surgery center above. Personal Belongings: -Please have photo ID and insurance cards. -If you do not have a copy of advance directives on file with us, please bring a copy with you on the day of surgery. - Leave ALL valuables and money at home or with family members. For Outpatient Procedures: - YOU MUST HAVE A RESPONSIBLE SERVICE PLANNER TAKE YOU HOME. A DIE BARBER OR CEMETERY WORKER CANNOT BE MADE A RESPONSIBLE SERVICE PLANNER. - We recommend that a responsible person stays with you overnight to take care of you. - You cannot stay in a hotel alone after outpatient surgery. You will not be permitted to have yoursurgery, if you do not have someone to take care of you. Arrival Time for Surgery: - To obtain your arrival time for surgery, call your physician's office the day before your surgery. - If your surgery is scheduled for Thursday, call the Thursday before. Your surgeon s stick inserter will tell you what time to call the office. - If you have not reached the departmental stick inserter by 5 P.M., call [phone] after 5 P.M. the day before your surgery. Please be aware that emergency situations arise, which may delay or change your surgical time. If this happens, we will notify you as soon as possible and regret any inconvenience. If you already have an Advance Directive, please fax a copy to [phone] or email to for it to be added to your chart. If you do not have an Advance Directive, you can find the appropriate form and more information at [email or web address]. We recommend that youcomplete the Advance Directive form found on the website and bring it with you the day of your surgery. It can be witnessed and scanned into your chart that day. Adeline Jama APRN.CNP documented in this encounterMain [facility] Instructions* Patient Instructions* Shar Austin LPN - 2023 11:13 AM EDT Images from the original note were not included. MINIMALLY INVASIVE GYNECOLOGIC SURGERY (MIGS)/BENIGN GYNECOLOGY CONTACTS: Dr. Lee Katz Surgery Scheduling Office: Call the day before surgery after 2pm for your surgery arrival time After hours phone number: or toll free Ask the singe machine operator to page the controller coal or ore installation and repair technician.' Business hours are Thursday - Thursday from 8:00am - 4:30pm. We are closed on weekends and major holidays. PRE-OPERATIVE CHECKLIST: PATIENT INSTRUCTIONS PRIOR TO SURGERY Our guidelines have changed, so please read these instructions carefully. Your surgery may be cancelled if you do not follow these instructions. I have been instructed not to have any solid food to eat after midnight prior to my surgery (this includes no gum, mints, smoking). I am allowed to drink small amounts (up to 12 oz) of clear liquids up until 2 hours prior to my arrival time. Clear liquids include water, fruit juices without pulp, carbonated beverages (i.e. shira yoshi), electrolyte beverages (i.e. Gatorade), clear tea and black coffee, clear broth, popsicles and jello. (No milk). No alcohol the day before or day of surgery. MEDICATION STOPPAGE: Unless my surgeon tells me differently, I will STOP THESE MEDICATIONS 7 DAYS PRIOR TO SURGERY: (Motrin/ibuprofen/Naproxen/Aleve/Advil), Aspirin, vitamin E, herbal medications, diet pills, and [id number] medications. Tylenol (acetaminophen) is okay. I will not wear jewelry, body piercing(s), makeup, nail swedish, hairpins, or contacts on the day ofsurgery. I am to leave valuables and money at home or with family members. If I am prescribed inhalers for breathing, I will use them and bring them to the hospital. Medication(s) to be taken on the morning of surgery with a few sips of water: If I am taking any of the following blood thinning medications - Aspirin, clopidogrel (Plavix), ticagrelor (Brilinta), prasugrel (Efficient), ticlodipine (Ticlid), warfarin (Coumadin), dibigatran (Pradaxa) or rivaroxaban (Xarelto) - I will discuss whether or not I should stop them before surgery with my surgeon. Discuss medication changes with your corporate strategist or primary care physician as well. If I stopped taking my blood-thinning medication, I will ask the surgeon when to resume taking it. If I am an outpatient, a responsible person will drive me home and it was suggested that someone stay with me for 24 hours. I understand that a business practices officer or cabdriver is NOT a responsible caregiver. Patients with diabetes,I will not take my morning diabetes medication (pills) on the morning of surgery. If I am on insulin, someone has gone over those instructions with me for the morning of surgery. I understand if my surgery is delayed, I will notify the check in desk that I have diabetes. See the Diabetic GuidelinesBefore Surgery in the patient education section. If I have Obstructive Sleep Apnea and use a CPAP/BiPAP machine, I will bring my mask, tubing, and machine with me on the day of surgery. PREOP INSTRUCTIONS THE DAY OF SURGERY/CHECK IN Report to DESK J1-9 for surgery. A map is located in Your Surgical Guide Book. The online version of the surgical guide book can be found at: [email or web address] The address is [address] [place] [address]/[place] [address] INFECTION PREVENTION Please notify your doctor if you have any signs of an infection (i.e. fever, severe cough, nasal congestion, pain with urination, abnormal vaginal discharge, diarrhea, etc). Your surgeon will let you know if a bowel prep is needed before your surgery. If so, please see theattached instructions. Shower the night before surgery AND the morning of surgery with Hibiclens (provided by your surgeon). If you are allergic to Hibiclens or unable to obtain the Hibiclens, please wash with antibacterial soap. Wash your body from the neck down, focusing on your abdomen, belly button and external genitalia. Do not forget to scrub any skin folds and creases. No lotions, oils, creams, or powders after your shower. Underarm deodorant is okay. No shaving (abdominal or pubic hair) or douching the day before surgery. You may be asked to apply an antiseptic solution called Chlorhexidine Gluconate (CHG) which will beprovided to you on arrival to the preop area. Hand washing is extremely important in preventing infection (for both you as the patient and for the caregivers). HOSPITALIZATION Before you leave the hospital, you typically need to be able to eat/drink, urinate, and have your pain controlled with oral medication. Your surgeon or other members of your surgeon s team will discuss any other specific medical issues related to your discharge with you. Your surgeon may order intermittent compression sleeves. These are massaging leg pumps to help prevent blood clots after surgery. See Your Surgical Guide Book for more information. It is also very important that you walk as soon as possible and as frequently as possible after surgery. This will help decrease your risk of blood clots, exercise your lungs and speed up your recovery after surgery. If you are admitted to the hospital overnight, you will be given an incentive spirometer, which is a breathing machine that will help make sure that you are taking deep breaths and expanding your lungs while in the hospital. See Your Surgical Guide Book for more information. [facility] TEAM At the [facility], we have a multidisciplinary team of caregivers that includes fellows, residents, nurse practitioners, physician assistants, clinical nurse specialists, nurses, medical assistants, patient care nursing assistants, social workers, case assistant and many others. We all have different roles and responsibilities but we are all here to help. MINIMALLY INVASIVE HYSTERECTOMY POSTOPERATIVE INSTRUCTIONS ACTIVITY * No heavy lifting/pushing/pulling for 4-6 weeks. Do not lift anything more than 10 lbs (such as laundry, groceries, children, pets), vacuum, push heavy doors or grocery carts, etc, for 4-6 weeks. * You may climb stairs as tolerated. * Do not put anything in the vagina for at least 8 weeks after surgery unless otherwise instructed by your doctor (including tampons, douching, sexual intercourse, etc). * No driving for 1 week after surgery and not while taking narcotic pain medication. Drive defensively when you are ready. * Avoid sitting or lying in bed for more than 2 hours at a time while you are awake to reduce your risk of blood clots. * You may return to work when you are ready as long as you do not lift more than 10 pounds for 4-6 weeks. If you have a sedentary job or therapeutic activities services worker 1-2 weeks before returning to work is appropriate. You may return to work in 2-4 weeks if your job requires a lot of movement. Please contact your doctor if you need any return to work letters or medical leave paperwork to be completed. *You may resume exercise/running around 4-6 weeks postop WOUND CARE * If you had a laparoscopic or robotic hysterectomy, you will have small incisions on your abdomen.There will be dissolvable stitches under your skin that do not need to be removed. If you have a piece of gauze with a clear bandage over your belly button, please remove that the day after surgery when you shower. If you have steri-strips (paper tape) on the incisions, these may be removed in about 1-2 weeks. It is OK to remove them if they are falling off. If skin glue is present, leave in place for at least 2 weeks. * Shower daily after surgery. Clean your incision with mild antibacterial soap and water. Pat your incision dry with a clean towel. No tub baths or swimming pools for 6 weeks or until wound is completely healed. * No ointments or antibacterial creams are required for incisions. Do NOT use cleansing agents likealcohol or hydrogen peroxide. * Wash your hands frequently, especially before touching your incision or changing any dressings. PAIN MANAGEMENT * Take your oral pain medication as needed. * Alternate Tylenol and ibuprofen/Motrin (if you are eligible). Each of these medications can be taken every six hours. Try to stagger them so that you are taking something for pain every three hours(ex. Take Motrin at 12:00, Tylenol at 3:00, Motrin at 6:00, etc.) to maximize pain relief. You should be taking 600mg of ibuprofen every 6 hours. You should be taking 650mg of tylenol every 6 hours. You should take every 6 hours with staggering and alternating. For example. 9am - ibuprofen 12pm - tylenol 3pm - ibuprofen 6pm - tylenol 9pm - ibuprofen 12am - tylenol 3am - ibuprofen 6am - tylenol Studies show this is as effective as narcotics for pain control without the side effects. Dosages * The maximum dose of Tylenol is 3000 mg in 24 hours, the maximum dose of Motrin/ibuprofen is 2400mg in 24 hours * Some pain medications can cause constipation. We recommend a stool softener (i.e. Senna) while you take these medications. * You may also take milk of magnesia or Miralax for constipation as directed on the bottle. * There is a risk for addiction with narcotic pain medication, so take with caution and do not takemore than the recommended amount. * Please be sure to dispose of leftover pain medication after you have recovered. You may dispose of unused narcotic medications in the trash with an unpleasant substance such as coffee grounds or cat litter or you can turn them in to a designated law enforcement/pharmacy narcotic box. You can alsocheck FDA.gov to assess which medications can be safely flushed down the toilet. * There are locations to dispose of unused medications at three [facility] locations: [facility] pharmacy, [facility] pharmacy, and the Pharmacy at the [facility] for [facility] (inside the parking garage on the first floor). WHAT TO EXPECT AT HOME * Recovery from surgery is generally 2-4 weeks, but sometimes longer for more strenuous activity. It is normal to be very tired during this time. * It is normal to have some drainage or a small amount of vaginal bleeding after surgery that wouldrequire the use of a light pantiliner. This discharge may last up to 6 weeks. The bleeding and discharge should be light and should have no odor. * You may experience gas pain, abdominal swelling, or shoulder pain for 24-72 hours after surgery. This is from the carbon dioxide gas put into your abdomen to better visualize your organs. A warm shower, heating pad, and/or walking may help. One of our nurses will be calling you 1 to 3 days after surgery to check on you. WHEN TO CALL YOUR DOCTOR: * Fever (>100.4 F or 38.0 C) or chills. * Incision problems such as redness, warmth, swelling, or foul smelling drainage. * Severe nausea or persistent vomiting. * Bright red vaginal bleeding (soaking >1 pad/hour) or foul smelling vaginal drainage. * IT IS NORMAL TO HAVE A MINIMAL AMOUNT OF VAGINAL SPOTTING OR VAGINAL DISCHARGE FOR SEVERAL WEEKS * Severe pain not relieved with pain medication. * Pain and swelling in your legs, especially if it is only on one side. * Pain with urination, cloudy urine, or foul smelling urine. * Severe redness/irritation at sites where adhesive bandages were applied. * Or if you have any other problems or questions. FREQUENTLY ASKED QUESTIONS/CONCERNS: Constipation Constipation is common and it is normal to not have a bowel movement for up to one week after surgery. You should still be passing gas despite constipation and should be able to tolerate both liquid and solid food without nausea or vomiting. Concerning symptoms would be constipation without gas, with fever, or nausea/vomiting and inabilityto eat. Call your doctor if these symptoms occur. Over the counter stool softeners including Senna twice daily and Miralax up to twice daily can helpwith constipation. 1. Senna (1 capsule) two times a day 2. Miralax (polyethylene glycol) 17 g (1 measured capful or 1 packet) once a day. If you have not had a bowel movement 3 days after surgery, you may take the Miralax two times a day. If you have any discomfort because of the need to have a bowel movement, you may add milk of magnesia or magnesium citrate (available at your local pharmacy without a prescription) at any time. Do not take milk of magnesia or magnesium citrate if you have kidney failure. If you have loose or watery stools, stop taking the medications. Call your doctor s office if you have questions. Drainage from incisions Clear/pink drainage or a minimal amount of bleeding from incisions can be normal after laparoscopicsurgery. Concerning drainage that is persistent, thick/cloudy, or foul smelling can be an indication of infection and should prompt you to call your doctor. Post-operative pain Pain after surgery is a challenging part of the healing process. Pain may be present for weeks but should gradually get better. Increasing pain or pain that is unbearable warrants evaluation by your doctor or in the emergency department. By state law we cannot immediately provide narcotic pain medication over the phone. Stitches If 2 weeks have passed and you have a visible stitch at a laparoscopic incision site it is OK for you to cut it to remove it. CALL 911 OR GO TO THE EMERGENCY ROOM IF YOU HAVE: Any shortness of breath, difficulty breathing, orchest pain. IF YOU FEEL YOU NEED TO GO TO THE EMERGENCY DEPARTMENT POST OPERATIVELY, WE RECOMMEND THE [facility] EMERGENCY DEPARTMENT FOR CONTINUITY OF CARE AND THE BEST ACCESS TO ONE OF THE SURGEONS ON OUR TEAM. Address: [address] [place] [address] documented in this encounterMain [facility] Center09-[facility]24 NoteHNO ID: [id number] Author: SHAR AUSTIN LPN Service: ? Author Type: LICENSED NURSE Type: Progress Notes Filed: 2023 13:11 Note Text: DATE OF SERVICE: 2023 PROBLEM: Violet Hernandez presents for pre-op teaching. PRE-OP DIAGNOSIS: intramural and subserous leiomyoma of uterus and pelvic pain in female SCHEDULED SURGERY AND DATE: 11-10-23 [facility] LAPAROSCOPIC HYSTERECTOMY TOTAL FOR UTERUS 250 G OR LESS W/REMOVAL TUBE(S) AND/OR OVARY(S) and CYSTOSCOPY PRIMARY SURGEON: Dr. Lee Katz NURSING PREOP ASSESSMENT: Fevers, chills, cough, or nasal congestion: No Vaginal itching, burning, discharge, or odor: No Pain with urination, frequency, urgency, cloudy or foul smelling urine: No If yes to any of the above then MD notified: Not Applicable ADVANCED CARE PLANNING: Does the patient have an advanced directive: No Does [facility] have a copy of the patient's advanced directive: No Was advanced directive given to the patient: No PATIENT LEARNING ASSESSMENT: Individual patient/family learning needs evaluated and addressed: Yes Cognitive ability: Alert and oriented Motivation to learn: Interested Factors affecting learning: None Physical limitations affecting learning: None Patient learns best by: Multiple Methods Method of instruction: Individual instruction Instructions provided to: Patient via telephone. Written material provided prior to education appointment. Family support: High - Very involved in pt care PRE- AND POST-OPERATIVE TEACHING Pre-operative teaching and supplemental material provided and reviewed with patient: Written pre-op and post-op instructions Antibacterial soap: patient will buy Pre-operative instructions provided and reviewed with patient/family: No eating, drinking, or smoking after midnight prior to surgery unless otherwise directed No alcohol the day before surgery Medications as prescribed by anesthesia, internal medicine, surgeon, or DREDGE PUMP OPERATOR Stop NSAIDs, Aspirin (ASA), vitamins, herbal supplements, herbal teas, and diet pills 7-10 days prior to surgery OK to take tylenol prn pain unless otherwise directed by physician Call surgery coordinators if any other questions about surgery date or pre-op appointments Bowel prep instructions: NPO after midnight Day of surgery instructions provided and reviewed with patient/family: Arrival time (call surgical coordinators on the office day prior to surgery for verification) No jewelry, body piercing, makeup, contacts, lotions, nail swedish on fingers, or anything in hair on arrival to surgery Wear low healed shoes and loose fitting clothing Leave all valuables at home or with a family member Directions to [facility] Parking/parking validation on the day prior to surgery Admission/check in (Report to DESK J1-9 for surgery) Holding area Placement of IV Surgical positioning Family waiting area Surgical recovery room Post-operative instructions provided and reviewed with patient/family: SEE PATIENT INSTRUCTION SECTION FOR DETAILS. SYMPTOMS TO NOTIFY MD - Fever, chills, nausea, vomiting, increased or severe pain, heavy vaginal bleeding, foul smelling vaginal drainage, pain or swelling in extremities. URGENT SYMPTOMS - Call 911 or go to ER if any shortness of breath, difficulty breathing, or chest pain. HOW TO CONTACT PHYSICIAN - Physician's office phone number given to patient, if after hours patient instructed to call singe machine operator and ask for installation and repair technician controller coal or ore resident. OCHOA program offered to patient: Yes Additional teaching as indicated by patient/family learning needs. PATIENT LEARNING EVALUATION AND FOLLOW UP PLAN: Patient and/or family express understanding of upcoming surgery, pre-operative preparation, the operative process, and post-operative instructions. Follow up plan: Patient instructed to call with any further issues Patient has a post-op appointment scheduled: [id number] at 4pm with Yennifer Tomas (video) Referral (recommentation): None Educator: Shar Austin LPN [facility] of Present illness Narrative* Shar Austin LPN - 2023 11:12 AM EDT DATE OF SERVICE: 2023 PROBLEM: Violet Hernandez presents for pre-op teaching. PRE-OP DIAGNOSIS: intramural and subserous leiomyoma of uterus and pelvic pain in female SCHEDULED SURGERY AND DATE: 11-10-23 [facility] LAPAROSCOPIC HYSTERECTOMY TOTAL FOR UTERUS 250 G ORLESS W/REMOVAL TUBE(S) AND/OR OVARY(S) and CYSTOSCOPY PRIMARY SURGEON: Dr. Lee Katz NURSING PREOP ASSESSMENT: Fevers, chills, cough, or nasal congestion: No Vaginal itching, burning, discharge, or odor: No Pain with urination, frequency, urgency, cloudy or foul smelling urine: No If yes to any of the above then MD notified: Not Applicable ADVANCED CARE PLANNING: Does the patient have an advanced directive: No Does [facility] have a copy of the patient's advanced directive: No Was advanced directive given to the patient: No PATIENT LEARNING ASSESSMENT: Individual patient/family learning needs evaluated and addressed: Yes Cognitive ability: Alert and oriented Motivation to learn: Interested Factors affecting learning: None Physical limitations affecting learning: None Patient learns best by: Multiple Methods Method of instruction: Individual instruction Instructions provided to: Patient via telephone. Written material provided prior to education appointment. Family support: High - Very involved in pt care PRE- AND POST-OPERATIVE TEACHING Pre-operative teaching and supplemental material provided and reviewed with patient: Written pre-opand post-op instructions Antibacterial soap: patient will buy Pre-operative instructions provided and reviewed with patient/family: No eating, drinking, or smoking after midnight prior to surgery unless otherwise directed No alcohol the day before surgery Medications as prescribed by anesthesia, internal medicine, surgeon, or DREDGE PUMP OPERATOR Stop NSAIDs, Aspirin (ASA), vitamins, herbal supplements, herbal teas, and diet pills 7-10 days prior to surgery OK to take tylenol prn pain unless otherwise directed by physician Call surgery coordinators if any other questions about surgery date or pre-op appointments Bowel prep instructions: NPO after midnight Day of surgery instructions provided and reviewed with patient/family: Arrival time (call surgical coordinators on the office day prior to surgery for verification) No jewelry, body piercing, makeup, contacts, lotions, nail swedish on fingers, or anything in hair on arrival to surgery Wear low healed shoes and loose fitting clothing Leave all valuables at home or with a family member Directions to [facility] Parking/parking validation on the day prior to surgery Admission/check in (Report to DESK J1-9 for surgery) Holding area Placement of IV Surgical positioning Family waiting area Surgical recovery room Post-operative instructions provided and reviewed with patient/family: SEE PATIENT INSTRUCTION SECTION FOR DETAILS. SYMPTOMS TO NOTIFY MD - Fever, chills, nausea, vomiting, increased or severe pain, heavy vaginal bleeding, foul smelling vaginal drainage, pain or swelling in extremities. URGENT SYMPTOMS - Call 911 or go to ER if any shortness of breath, difficulty breathing, or chest pain. HOW TO CONTACT PHYSICIAN - Physician's office phone number given to patient, if after hours patientinstructed to call singe machine operator and ask for installation and repair technician controller coal or ore resident. OCHOA program offered to patient: Yes Additional teaching as indicated by patient/family learning needs. PATIENT LEARNING EVALUATION & FOLLOW UP PLAN: Patient and/or family express understanding of upcoming surgery, pre-operative preparation, the operative process, and post-operative instructions. Follow up plan: Patient instructed to call with any further issues Patient has a post-op appointment scheduled: [id number] at 4pm with Yennifer Tomas (video) Referral (recommentation): None Educator: Shar Austin LPN [facility] documented in this encounterMain [facility] Center09-20-[facility]24 Telephone encounter Note * Telephone Encounter - MorisasiaToya - 10/30/2023 3:19 PM EDT Pt wants a letter sent via [employer]. I am happy to get that drafted up but what do you think in terms of time off can she return at 4 weeks with restrictions? [facility]09-20-2024 Miscellaneous Notes* Telephone Encounter - Toya Lopes - 10/30/2023 3:19 PM EDT Pt wants a letter sent via [employer]. I am happy to get that drafted up but what do you think in terms of time off can she return at 4 weeks with restrictions? * Telephone Encounter - Sonia Lopez RN - 10/30/2023 12:04 PM EDT Attempted to call patient. Left voicemail. Instructed patient to call office back. Sonia Lopez RN October 30, 2023 12:05 PM * Telephone Encounter - Renata Booker - 10/29/2023 8:58 AM EDT Patient is having surgery 11/10/[address] Katz and is requesting a letter to her employer stating x number of weeks time off. Patient does not qualify for FMLA. Please advise with return call. documented in this encounterMain [facility] Center09-20-2024 Telephone encounter Note * Telephone Encounter - Sonia Lopez RN - 10/30/2023 12:04 PM EDT Attempted to call patient. Left voicemail. Instructed patient to call office back. Sonia Lopez RN October 30, 2023 12:05 PM [facility]09-19-2024 Telephone encounter Note* Telephone Encounter - Renata Booker - 10/29/2023 8:58 AM EDT Patient is having surgery 11/10/[address] Katz and is requesting a letter to her employer stating x number of weeks time off. Patient does not qualify for FMLA. Please advise with return call. [facility]09-18-2024 Telephone encounter Note* Telephone Encounter - Jeanie Yu APRN.CNP - 10/28/2023 12:38 PM EDT Encounter Diagnosis ICD-10-CM 1. Preop testing Z01.818 COMPLETE BLOOD COUNT AND DIFFERENTIAL TYPE AND SCREEN,30 DAY [facility]09-18-2024 Miscellaneous Notes* Telephone Encounter - Jeanie Yu APRN.CNP - 10/28/2023 12:38 PM EDT Encounter Diagnosis ICD-10-CM 1. Preop testing Z01.818 COMPLETE BLOOD COUNT AND DIFFERENTIAL TYPE AND SCREEN,30 DAY * Telephone Encounter - Lakeshia Fox RN - 10/28/2023 11:16 AM EDT Called patient LVM to call the office Surgery scheduled for 11/10/2023-- this should not be a problem Recovery time is 6 weeks , not lifting, pushing, pulling more than 10 lbs Can return to work sooner if she has a job that can accommodate this Lakeshia Fox RN * Telephone Encounter - Emerita Payan - 10/28/2023 8:57 AM EDT Patient calling into the office. She is a patient of Dr. Byrnes. She states that she is scheduled for surgery on 11/09 and that she had a couple of questions. She states that she has a colonoscopy coming up on 11/04 and is wondering if that is okay to do as she does not want a sedation conflict, they would be using twilight sedation. She is also wondering if there can be a letter put into her MyChart that states that she is having surgery with Dr. Katz on 11/09 and how long she would be off work for. She does not qualify for FMLA and states that this is what they would need. Please advise. Thank you documented in this encounterMain Campus Medical Center09-18-2024 Telephone encounter Note * Telephone Encounter - Lakeshia Fox RN - 10/28/2023 11:16 AM EDT Called patient LVM to call the office Surgery scheduled for 11/10/2023-- this should not be a problem Recovery time is 6 weeks , not lifting, pushing, pulling more than 10 lbs Can return to work sooner if she has a job that can accommodate this Lakeshia Fox RN [facility]09-18-2024 Telephone encounter Note* Telephone Encounter - Emerita Payan - 10/28/2023 8:57 AM EDT Patient calling into the office. She is a patient of Dr. Byrnes. She states that she is scheduled for surgery on 11/09 and that she had a couple of questions. She states that she has a colonoscopy coming up on 11/04 and is wondering if that is okay to do as she does not want a sedation conflict, they would be using twilight sedation. She is also wondering if there can be a letter put into her MyChart that states that she is having surgery with Dr. Katz on 11/09 and how long she would be off work for. She does not qualify for FMLA and states that this is what they would need. Please advise. Thank you [facility]09-16-2024 Instructions* Patient Instructions* Lee Katz, - 10/26/2023 5:49 PM EDT Images from the original note were not included. Please visit the following website for the [facility] surgery guide. [email or web address] MINIMALLY INVASIVE GYNECOLOGIC SURGERY (MIGS)/BENIGN GYNECOLOGY CONTACTS: Surgeons: Dr. Lee Katz Dr. Anne Marie Aguilera Dr. Angélica Cerrato Dr. Zuleyma Morales Dr. Denzel Perez Dr. Joleen Calderon [place]: Dr. Naina Goncalves [phone] Dr. Adriano Oviedo [phone] Dr. Bianca Coronado [phone] Nurse Practitioners: Jeanie Yu, REGIONAL 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 Maria E Marcial, REGIONAL 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 Cate Carter, REGIONAL 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 Stephanie Morrison, REGIONAL 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 Zuleyka Kovacs, REGIONAL OWNER OPERATOR TRUCK DRIVER, DRUG SAFETY PHYSICIAN Surgery Scheduling Office: Call the day before surgery after 2pm for your surgery arrival time After hours phone number: or toll free Ask the singe machine operator to page the controller coal or ore installation and repair technician.' Business hours are Thursday - Thursday from 8:00am - 4:30pm. We are closed on weekends and major holidays. Surgery Locations: [address] /[id number] [place] [address] [facility] [address] [place] [address] MINIMALLY INVASIVE HYSTERECTOMY POSTOPERATIVE INSTRUCTIONS ACTIVITY * No heavy lifting/pushing/pulling for 4-6 weeks. Do not lift anything more than 10 lbs (such as laundry, groceries, children, pets), vacuum, push heavy doors or grocery carts, etc, for 4-6 weeks. * You may climb stairs as tolerated. * Do not put anything in the vagina for at least 8 weeks after surgery unless otherwise instructed by your doctor (including tampons, douching, sexual intercourse, etc). * No driving for 1 week after surgery and not while taking narcotic pain medication. Drive defensively when you are ready. * Avoid sitting or lying in bed for more than 2 hours at a time while you are awake to reduce your risk of blood clots. * You may return to work when you are ready as long as you do not lift more than 20 pounds for 4-6 weeks. If you have a sedentary job or therapeutic activities services worker 1-2 weeks before returning to work is appropriate. You may return to work in 2-4 weeks if your job requires a lot of movement. Please contact your doctor if you need any return to work letters or medical leave paperwork to be completed. *You may resume exercise/running around 4-6 weeks postop WOUND CARE * If you had a laparoscopic or robotic hysterectomy, you will have small incisions on your abdomen.There will be dissolvable stitches under your skin that do not need to be removed. If you have a piece of gauze with a clear bandage over your belly button, please remove that the day after surgery when you shower. If you have steri-strips (paper tape) on the incisions, these may be removed in about 1-2 weeks. It is OK to remove them if they are falling off. If skin glue is present, leave in place for at least 2 weeks. * Shower daily after surgery. Clean your incision with mild antibacterial soap and water. Pat your incision dry with a clean towel. No tub baths or swimming pools for 6 weeks or until wound is completely healed. * No ointments or antibacterial creams are required for incisions. Do NOT use cleansing agents likealcohol or hydrogen peroxide. * Wash your hands frequently, especially before touching your incision or changing any dressings. PAIN MANAGEMENT * Take your oral pain medication as needed. * Alternate Tylenol and ibuprofen/Motrin (if you are eligible). Each of these medications can be taken every six hours. Try to stagger them so that you are taking something for pain every three hours(ex. Take Motrin at 12:00, Tylenol at 3:00, Motrin at 6:00, etc.) to maximize pain relief. You should be taking 600mg of ibuprofen every 6 hours. You should be taking 650mg of tylenol every 6 hours. You should take every 6 hours with staggering and alternating. For example. 9am - ibuprofen 12pm - tylenol 3pm - ibuprofen 6pm - tylenol 9pm - ibuprofen 12am - tylenol 3am - ibuprofen 6am - tylenol Studies show this is as effective as narcotics for pain control without the side effects. Dosages * The maximum dose of Tylenol is 3000 mg in 24 hours, the maximum dose of Motrin/ibuprofen is 2400mg in 24 hours * Some pain medications can cause constipation. We recommend a stool softener (i.e. Senna) while you take these medications. * You may also take milk of magnesia or Miralax for constipation as directed on the bottle. * There is a risk for addiction with narcotic pain medication, so take with caution and do not takemore than the recommended amount. * Please be sure to dispose of leftover pain medication after you have recovered. You may dispose of unused narcotic medications in the trash with an unpleasant substance such as coffee grounds or cat litter or you can turn them in to a designated law enforcement/pharmacy narcotic box. You can alsocheck FDA.gov to assess which medications can be safely flushed down the toilet. * There are locations to dispose of unused medications at three [facility] locations: [facility] pharmacy, [facility] pharmacy, and the Pharmacy at the [facility] for [facility] (inside the parking garage on the first floor). WHAT TO EXPECT AT HOME * Recovery from surgery is generally 2-4 weeks, but sometimes longer for more strenuous activity. It is normal to be very tired during this time. * It is normal to have some drainage or a small amount of vaginal bleeding after surgery that wouldrequire the use of a light pantiliner. This discharge may last up to 6 weeks. The bleeding and discharge should be light and should have no odor. * You may experience gas pain, abdominal swelling, or shoulder pain for 24-72 hours after surgery. This is from the carbon dioxide gas put into your abdomen to better visualize your organs. A warm shower, heating pad, and/or walking may help. WHEN TO CALL YOUR DOCTOR: * Fever (>100.4 F or 38.0 C) or chills. * Incision problems such as redness, warmth, swelling, or foul smelling drainage. * Severe nausea or persistent vomiting. * Bright red vaginal bleeding (soaking >1 pad/hour) or foul smelling vaginal drainage. * IT IS NORMAL TO HAVE A MINIMAL AMOUNT OF VAGINAL SPOTTING OR VAGINAL DISCHARGE FOR SEVERAL WEEKS * Severe pain not relieved with pain medication. * Pain and swelling in your legs, especially if it is only on one side. * Pain with urination, cloudy urine, or foul smelling urine. * Severe redness/irritation at sites where adhesive bandages were applied. * Or if you have any other problems or questions. FREQUENTLY ASKED QUESTIONS/CONCERNS: Constipation Constipation is common and it is normal to not have a bowel movement for up to one week after surgery. You should still be passing gas despite constipation and should be able to tolerate both liquid and solid food without nausea or vomiting. Concerning symptoms would be constipation without gas, with fever, or nausea/vomiting and inabilityto eat. Call your doctor if these symptoms occur. Over the counter stool softeners including Senna twice daily and Miralax up to twice daily can helpwith constipation. 1. Senna (1 capsule) two times a day 2. Miralax (polyethylene glycol) 17 g (1 measured capful or 1 packet) once a day. If you have not had a bowel movement 3 days after surgery, you may take the Miralax two times a day. If you have any discomfort because of the need to have a bowel movement, you may add milk of magnesia or magnesium citrate (available at your local pharmacy without a prescription) at any time. Do not take milk of magnesia or magnesium citrate if you have kidney failure. If you have loose or watery stools, stop taking the medications. Call your doctor s office if you have questions. Drainage from incisions Clear/pink drainage or a minimal amount of bleeding from incisions can be normal after laparoscopicsurgery. Concerning drainage that is persistent, thick/cloudy, or foul smelling can be an indication of infection and should prompt you to call your doctor. Post-operative pain Pain after surgery is a challenging part of the healing process. Pain may be present for weeks but should gradually get better. Increasing pain or pain that is unbearable warrants evaluation by your doctor or in the emergency department. By state law we cannot immediately provide narcotic pain medication over the phone. Stitches If 2 weeks have passed and you have a visible stitch at a laparoscopic incision site it is OK for you to cut it to remove it. CALL 911 OR GO TO THE EMERGENCY ROOM IF YOU HAVE: Any shortness of breath, difficulty breathing, orchest pain. IF YOU FEEL YOU NEED TO GO TO THE EMERGENCY DEPARTMENT POST OPERATIVELY, WE RECOMMEND THE [facility] EMERGENCY DEPARTMENT FOR CONTINUITY OF CARE AND THE BEST ACCESS TO ONE OF THE SURGEONS ON OUR TEAM. Address: [address] [place] [address] documented in this encounter[facility] History of Present illness Narrative* Lee Katz DO - 10/26/2023 9:30 AM EDT Images from the original note were not included. [facility] SECTION FOR MINIMALLY INVASIVE GYNECOLOGIC SURGERY OUTPATIENT VISIT DATE 10/26/2023 OUTPATIENT VISIT TYPE NEW PRIMARY CARE PHYSICIAN: Emily Sanders (Mk) [address] [address] REFERRING PHYSICIAN: Leo Barnett Consultation requested by Leo Monroe MD for an opinion regarding Violet Hernandez,and my final recommendations will be communicated back to the requesting physician by way of sharedmedical record or letter via US mail. CHIEF COMPLAINT: Fibroid, pelvic pain HISTORY OF PRESENT ILLNESS: Violet Hernandez is a pleasant 37 year old female who presents for evaluation of Fibroids. She reports that she has known about her fibroid for a few years, and was told it has increased in size. Endorses lower abdominal pain and pressure, especially with bending and activity. Denies anyabnormal uterine bleeding. Was diagnosed with POI at age 20 and is currently on Khadra for control. Takes this medication continuously and does not get monthly menses. Sexually active without any issues. Endorses some vaginal dryness and spotting after intercourse. Endorses abdominal bloating and occasional constipation/diarrhea, is scheduled for GI consultation and colonoscopy. She is interested in hysterectomy for surgical management. Is not interested in future fertility. Last pap 05/07/2021 normal HPV negative Ultrasound 06/27/2023 IMPRESSION: Ovaries not visualized. 7.4 cm fibroid. RESULT: Uterus: -Size: 6.5 x 3.0 x 5.0 cm -Orientation: Anteverted -Endometrial echo complex: Evaluation of the endometrium was adequate. No endometrial abnormality. The endometrial echo complex measured 0.8 cm. -Cervix: Unremarkable. -Adenomyosis assessment: There are no sonographic findings of adenomyosis. -Fibroids: Fibroid # 1 -Size: Anterior fundus cm -Location: 7.0 x 6.5 x 7.4 -Type: Hybrid -Imaging features: Typical imaging features -Differential: None Right Ovary: Not identified. Left Ovary: Not identified. Free Fluid: No abnormal free fluid is present. 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 History Comments: Sexual Activity: Yes; Male Contraception: Pill Past Obstetrical History: OB History T0 L0 SAB0 IAB0 Ectopic0 Multiple0 Live Births0 Past Medical History: PAST MEDICAL HISTORY Diagnosis Date Anxiety Depression Leukopenia Mitral prolapse Premature ovarian failure Past Surgical History: PAST SURGICAL HISTORY Procedure Laterality Date BONE MARROW BIOPSY x 2 ORAL SURGERY PROCEDURE Family History: FAMILY HISTORY Problem Relation Age of Onset Cataract Mother Macular Degen Mother Hypertension Father No Known Problems Sister No Known Problems Brother Breast Cancer Maternal Grandmother 55 Skin Cancer Maternal Grandmother Diabetes Maternal Grandmother Heart disease Maternal Grandfather Heart disease Paternal Grandmother Stroke Paternal Grandfather Social History: Social History Tobacco Use Smoking status: Never Smokeless tobacco: Never Vaping Use Vaping status: Never Used Substance Use Topics Alcohol use: Never Drug use: Never Current Outpatient Medications Medication Sig CRANBERRY ORAL Take 2 capsules by mouth once daily. 2 gummies daily Drospirenone-Ethinyl Estradiol (KOKI, 28,) 3-0.03 mg per tablet Take 1 tablet by mouth once daily. FOR CONTINUOUS USE - Take only hormone pills, skipping placebo pills. fluvoxaMINE Maleate (LUVOX) 25 mg tablet Take 100 mg by mouth once daily. buPROPion XL (WELLBUTRIN XL) 150 mg 24 hr tablet Take 300 mg by mouth once daily. ARIPiprazole (ABILIFY) 5 mg tablet Take by mouth. Vitamin E, dl, acetate, (VITAMIN E) 400 unit capsule Take 400 Units by mouth once daily. cyanocobalamin (VITAMIN B-12) 500 mcg tablet Take by mouth once daily. multivit with min-folic acid (ONE-A-DAY WOMEN VITACRAVES) 200 mcg chew One-A-Day Women VitaCraves 200 mcg chewable tablet chew 1 tablet by oral route daily naltrexone HCl (NALTREXONE ORAL) Take by mouth. fubgeju-uwqsymofl-aytixsw D3 500 mg(1,250mg) -200 unit per tablet Calcium 500 + D 500 mg (1,250 mg)-200 unit tablet take 1 tablet by oral route 2 times a day (Patient not taking: Reported on 05/19/2023) No current facility-administered medications for this visit. Allergies As of Date: 10/26/2023 (No Known Allergies) Fully Assessed 10/26/2023 REVIEW OF SYSTEMS: POSITIVES IN BOLD Constitutional: Denies fever or chills GI: Denies abdominal pain, nausea, vomiting, bloody stools or diarrhea : Denies dysuria Psychiatric: Denies depression or anxiety PHYSICAL EXAMINATION: Vital Signs: 10/26/23 0907 BP: 116/79 Weight: 70.8 kg (156 lb) Height: 147.3 cm (4' 10) Body mass index is 32.6 kg/m . General appearance: Well appearing, alert, in no acute distress, well-hydrated, well nourished. Skin: Skin color, texture, turgor normal, no suspicious rashes or lesions Abdomen: Normal abdominal exam, Abdomen soft, non-tender. 14 week sized uterus palpated abdominallywith tenderness to palpation. PELVIC EXAMINATION: Deferred IMPRESSION: Ms. Hernandez is a 37 year old female who presents today with symptomatic uterine fibroids, desiringsurgical management. Discussed pathophysiology of uterine leiomyomas at length. Diagrams were used for teaching and all images were reviewed. Educated that uterine leiomyomas are the most common pelvic tumor in women with 70-80% of the population being diagnosed at some point in their lives. The presence of fibroids alone without symptoms often does not require surgical intervention. Symptoms attributable to fibroidsoften include abnormal uterine bleeding, pelvic pain or pressure, or reproductive dysfunction. Relief of symptoms often occurs at the time of menopause when the menstrual cyclicity ceases and steroidhormone levels decrease. Management of uterine leiomyomas often includes expectant management vs medical management vs surgical intervention with uterine artery embolization, myomectomy, or hysterectomy. Medical management typically includes hormonal suppression. Lysteda is a non-hormonal option that may be an option for some women to assist with heavy menses. UFE requires an MRI and a consult with IR to assess if fibroids are amendable to this option. Myomectomy is often reserved for women who desire to retain fertility. Hysterectomy is the most invasive option, but will definitively resolve bleeding and bulk symptoms. Various routes and techniques of tissue extraction were discussed with the patient. Educated that the risk of occult leiomyosarcoma at the time of surgery for presumed benign leiomyomas range from 1 in 1,150 (0.064%) to 2 in 8,720 (0.023%). Patient understands that preoperative diagnosis of leiomyosarcoma is limited and uncontained morcellation may increase the likelihood of intraperitoneal dissemination. All questions were answered and patient desires to proceed with minimally invasive surgical approach with contained tissue fractionization for tissue extraction. Also discussed that in the setting of POI (dx in 2010 by JOSE in [place]), can perform a BSO at the time of surgery as well. Reviewed the risks/benefits of BSO at time of surgery and with shared decision making, patient is interested in proceeding with BSO. Plan: - Surgical management with TLH-BSO, cysto. Reviewed risks of surgery with patient and expected post-operative recovery and activity restrictions. Consents signed - Recommend follow-up with PCP for routine bone density scans and with primary On Site Coordinator for continuedhormonal replacement following surgery. Written and verbal health teaching given to patient, patient verbalizes understanding and agrees with treatment plan. Lee Katz DO documented in this encounterMain [facility]24 NoteHNO ID: [id number] Author: LEE KATZ DO Service: ? Author Type: Physician Type: Progress Notes Filed: 10/26/2023 17:49 Note Text: [facility] SECTION FOR MINIMALLY INVASIVE GYNECOLOGIC SURGERY OUTPATIENT VISIT DATE 10/26/2023 OUTPATIENT VISIT TYPE NEW PRIMARY CARE PHYSICIAN: Emily Sanders ([facility]) [address] [place] [address] REFERRING PHYSICIAN: Leo Barnett Consultation requested by Leo Monroe MD for an opinion regarding Violet Hernandez, and my final recommendations will be communicated back to the requesting physician by way of shared medical record or letter via [place] mail. CHIEF COMPLAINT: Fibroid, pelvic pain HISTORY OF PRESENT ILLNESS: Violet Hernandez is a pleasant 37 year old female who presents for evaluation of Fibroids. She reports that she has known about her fibroid for a few years, and was told it has increased in size. Endorses lower abdominal pain and pressure, especially with bending and activity. Denies any abnormal uterine bleeding. Was diagnosed with POI at age 20 and is currently on Khadra for control. Takes this medication continuously and does not get monthly menses. Sexually active without any issues. Endorses some vaginal dryness and spotting after intercourse. Endorses abdominal bloating and occasional constipation/diarrhea, is scheduled for GI consultation and colonoscopy. She is interested in hysterectomy for surgical management. Is not interested in future fertility. Last pap 05/07/2021 normal HPV negative Ultrasound 06/27/2023 IMPRESSION: Ovaries not visualized. 7.4 cm fibroid. RESULT: Uterus: -Size: 6.5 x 3.0 x 5.0 cm -Orientation: Anteverted -Endometrial echo complex: Evaluation of the endometrium was adequate. No endometrial abnormality. The endometrial echo complex measured 0.8 cm. -Cervix: Unremarkable. -Adenomyosis assessment: There are no sonographic findings of adenomyosis. -Fibroids: Fibroid # 1 -Size: Anterior fundus cm -Location: 7.0 x 6.5 x 7.4 -Type: Hybrid -Imaging features: Typical imaging features -Differential: None Right Ovary: Not identified. Left Ovary: Not identified. Free Fluid: No abnormal free fluid is present. 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 History Comments: Sexual Activity: Yes; Male Contraception: Pill Past Obstetrical History: OB History T0 L0 SAB0 IAB0 Ectopic0 Multiple0 Live Births0 Past Medical History: PAST MEDICAL HISTORY Diagnosis Date Anxiety Depression Leukopenia Mitral prolapse Premature ovarian failure Past Surgical History: PAST SURGICAL HISTORY Procedure Laterality Date BONE MARROW BIOPSY x 2 ORAL SURGERY PROCEDURE Family History: FAMILY HISTORY Problem Relation Age of Onset Cataract Mother Macular Degen Mother Hypertension Father No Known Problems Sister No Known Problems Brother Breast Cancer Maternal Grandmother 55 Skin Cancer Maternal Grandmother Diabetes Maternal Grandmother Heart disease Maternal Grandfather Heart disease Paternal Grandmother Stroke Paternal Grandfather Social History: Social History Tobacco Use Smoking status: Never Smokeless tobacco: Never Vaping Use Vaping status: Never Used Substance Use Topics Alcohol use: Never Drug use: Never Current Outpatient Medications Medication Sig CRANBERRY ORAL Take 2 capsules by mouth once daily. 2 gummies daily Drospirenone-Ethinyl Estradiol (KOKI, 28,) 3-0.03 mg per tablet Take 1 tablet by mouth once daily. FOR CONTINUOUS USE - Take only hormone pills, skipping placebo pills. fluvoxaMINE Maleate (LUVOX) 25 mg tablet Take 100 mg by mouth once daily. buPROPion XL (WELLBUTRIN XL) 150 mg 24 hr tablet Take 300 mg by mouth once daily. ARIPiprazole (ABILIFY) 5 mg tablet Take by mouth. Vitamin E, dl, acetate, (VITAMIN E) 400 unit capsule Take 400 Units by mouth once daily. cyanocobalamin (VITAMIN B-12) 500 mcg tablet Take by mouth once daily. multivit with min-folic acid (ONE-A-DAY WOMEN VITACRAVES) 200 mcg chew One-A-Day Women VitaCraves 200 mcg chewable tablet chew 1 tablet by oral route daily naltrexone HCl (NALTREXONE ORAL) Take by mouth. qldiqsj-idjflaygy-yvgmbtq D3 500 mg(1,250mg) -200 unit per tablet Calcium 500 + D 500 mg (1,250 mg)-200 unit tablet take 1 tablet by oral route 2 times a day (Patient not taking: Reported on 05/19/2023) No current facility-administered medications for this visit. Allergies As of Date: 10/26/2023 (No Known Allergies) Fully Assessed 10/26/2023 REVIEW OF SYSTEMS: POSITIVES IN BOLD Constitutional: Denies fever or chills GI: Denies abdominal pain, nausea, vomiting, bloody (more content not included)...[facility]07-08-2024 Telephone encounter Note* Telephone Encounter - Lakeshia Fox RN - 08/17/2023 9:49 AM EDT Images from the original note were not included. Called patient verified name and Relayed message below Patient understood and was thankful for the call Lakeshia Fox RN Lee Katz DO [place] [address] Nurse [id number] minutes ago (9:30 AM) MB Yes. Pls tell her yes. [facility]07-08-2024 Miscellaneous Notes* Telephone Encounter - Lakeshia Fox RN - 08/17/2023 9:49 AM EDT Images from the original note were not included. Called patient verified name and Relayed message below Patient understood and was thankful for the call Lakeshia Fox RN Lee Katz, DO [address] A[address] Nurse [id number] minutes ago (9:30 AM) MB Yes. Pls tell her yes. * Telephone Encounter - Sherly Daily - 08/17/2023 8:42 AM EDT Pt called in and LVM re: surgery consult appointment Pt scheduled for surgery consult with Dr. Katz 10/26/23. Pt asking if Dr. Katz uses the bag if she does the morcellation laparoscopic hysterectomy. BRIANDA: 08/12/[address] Monroe ASSESSMENT AND PLAN: Encounter Diagnosis ICD-10-CM 1. Intramural and subserous leiomyoma of uterus D25.1 CONSULT TO MINIMALLY INVASIVE GYNECOLOGIC SURGERY D25.2 CONSULT TO MINIMALLY INVASIVE GYNECOLOGIC SURGERY 2. Pelvic pressure in female R10.2 CONSULT TO MINIMALLY INVASIVE GYNECOLOGIC SURGERY 3. Urinary frequency R35.0 4. 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 Discussed with patient I am concerned with performing Laparoscopic procedure in [place] as morcellation and removal of uterus and closure of cuff would be difficult due to limited vaginal access. I would recommend consultation with [facility] for Laparoscopic morcellation. Pt agreeable to this plan. Noah send chart to Dr. Katz in [place]. Medical Decision Making: Problems: Moderate: 1+ chronic illnesses with change Risk: High: Decision on elective major surgery w/ risk factors Medical Decision Making Level: 4 - Moderate Leo Abdi MD Will route to Dr. Katz to respond. Ok to send a mychart update to pt. documented in this encounterMain [facility]24 Telephone encounter Note * Telephone Encounter - Sherly Daily - 08/17/2023 8:42 AM EDT Pt called in and LVM re: surgery consult appointment Pt scheduled for surgery consult with Dr. Katz 10/26/23. Pt asking if Dr. Katz uses the bag if she does the morcellation laparoscopic hysterectomy. BRIANDA: 08/12/[address] Monroe ASSESSMENT AND PLAN: Encounter Diagnosis ICD-10-CM 1. Intramural and subserous leiomyoma of uterus D25.1 CONSULT TO MINIMALLY INVASIVE GYNECOLOGIC SURGERY D25.2 CONSULT TO MINIMALLY INVASIVE GYNECOLOGIC SURGERY 2. Pelvic pressure in female R10.2 CONSULT TO MINIMALLY INVASIVE GYNECOLOGIC SURGERY 3. Urinary frequency R35.0 4. 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 Discussed with patient I am concerned with performing Laparoscopic procedure in [place] as morcellation and removal of uterus and closure of cuff would be difficult due to limited vaginal access. I would recommend consultation with [facility] for Laparoscopic morcellation. Pt agreeable to this plan. Iwill send chart to Dr. Katz in [place]. Medical Decision Making: Problems: Moderate: 1+ chronic illnesses with change Risk: High: Decision on elective major surgery w/ risk factors Medical Decision Making Level: 4 - Moderate Leo Abdi MD Will route to Dr. Katz to respond. Ok to send a [employer] update to pt. [facility]07-05-2024 Telephone encounter Note* Telephone Encounter - Lee Jama - 08/14/2023 8:09 AM EDT Patient called into the office on 08/14/2023 and would like to speak to Dr. Byrnes nurse in regards to her up and coming appointment with Dr. Katz. Patient had some clinical questions in regards to hysterectomy. Please call patient at [phone]. Thanks Lee Jaam [facility]07-05-2024 Miscellaneous Notes* Telephone Encounter - Lee Jama - 08/14/2023 8:09 AM EDT Patient called into the office on 08/14/2023 and would like to speak to Dr. Billows nurse in regards to her up and coming appointment with Dr. Katz. Patient had some clinical questions in regards to hysterectomy. Please call patient at [phone]. Thanks Lee Jama documented in this [facility] NoteHNO ID: [id number] Author: LEO BARNETT MD Service: ? Author Type: Physician Type: Progress Notes Filed: 08/12/2023 13:13 Note Text: Ticker Installer offered: Patient declines. Violet Hernandez is a 37 year old female who presents for discussion regarding fibroid uterus and surgical mgmt. Pt reports is currently taking OCPs for Premature ovarian failure at age 20. Pt reports had some irregular spotting that resolved. Pt states that she experiences some abdominal discomfort more with exercise, some urinary frequency and some pelvic pressure. Pt reports she does not wish to keep her uterus at this time. Pt reports no other concerns at this time. 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 History Comments: Sexual Activity: Yes; Male Contraception: Pill PAST MEDICAL HISTORY Diagnosis Date Anxiety Depression Leukopenia Mitral prolapse Premature ovarian failure PAST SURGICAL HISTORY Procedure Laterality Date BONE MARROW BIOPSY x 2 ORAL SURGERY PROCEDURE FAMILY HISTORY Problem Relation Age of Onset Cataract Mother Macular Degen Mother Hypertension Father No Known Problems Sister No Known Problems Brother Breast Cancer Maternal Grandmother 55 Skin Cancer Maternal Grandmother Diabetes Maternal Grandmother Heart disease Maternal Grandfather Heart disease Paternal Grandmother Stroke Paternal Grandfather Social History Tobacco Use Smoking status: Never Smokeless tobacco: Never Vaping Use Vaping Use: Never used Substance Use Topics Alcohol use: Never Drug use: Never Current Outpatient Medications Medication Sig naltrexone HCl (NALTREXONE ORAL) Take by mouth. CRANBERRY ORAL Take 2 capsules by mouth once daily. 2 gummies daily Drospirenone-Ethinyl Estradiol (KOKI, 28,) 3-0.03 mg per tablet Take 1 tablet by mouth once daily. FOR CONTINUOUS USE - Take only hormone pills, skipping placebo pills. fluvoxaMINE Maleate (LUVOX) 25 mg tablet Take 100 mg by mouth once daily. buPROPion XL (WELLBUTRIN XL) 150 mg 24 hr tablet Take 300 mg by mouth once daily. ARIPiprazole (ABILIFY) 5 mg tablet Take by mouth. Vitamin E, dl, acetate, (VITAMIN E) 400 unit capsule Take 400 Units by mouth once daily. cyanocobalamin (VITAMIN B-12) 500 mcg tablet Take by mouth once daily. multivit with min-folic acid (ONE-A-DAY WOMEN VITACRAVES) 200 mcg chew One-A-Day Women VitaCraves 200 mcg chewable tablet chew 1 tablet by oral route daily eyxyexd-lcjgnlrqj-ephpxsy D3 500 mg(1,250mg) -200 unit per tablet Calcium 500 + D 500 mg (1,250 mg)-200 unit tablet take 1 tablet by oral route 2 times a day (Patient not taking: Reported on 05/19/2023) No current facility-administered medications for this visit. Allergies As of Date: 08/12/2023 (No Known Allergies) Fully Assessed 08/12/2023 REVIEW OF SYSTEMS Abdomen: pain with exercise and pressure. Bladder: frequency.. Expanded ROS: GENERAL: Negative for fever Allergies and current medication updated:Yes EXAM: BP 118/72 Wt 158 lb (71.7kg) LMP 06/09/2022 GENERAL: pleasant, female in no apparent distress HEENT: Normocephalic and atraumatic NECK: full range of motion DERMATOLOGY: Normal and without lesions ABDOMEN: soft, non-tender PELVIC: external genitalia normal, normal Bartholin's glands, urethra, [place]'s glands, no vulvar lesions, no cervical lesions, good vaginal support, physiologic discharge present, normal appearing perineal body and perianal region, narrow vagina BIMANUAL: no adnexal masses, non-tender, and uterus - difficult to palpate due to habitus but feels enlarged about to 14 weeks but feels mobile- very narrow vagina. NEURO: alert and oriented x3,exam grossly non-focal EXTREMITIES: normal ASSESSMENT AND PLAN: Encounter Diagnosis ICD-10-CM 1. Intramural and subserous leiomyoma of uterus D25.1 CONSULT TO MINIMALLY INVASIVE GYNECOLOGIC SURGERY D25.2 CONSULT TO MINIMALLY INVASIVE GYNECOLOGIC SURGERY 2. Pelvic pressure in female R10.2 CONSULT TO MINIMALLY INVASIVE GYNECOLOGIC SURGERY 3. Urinary frequency R35.0 4. 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 Discussed with patient I am concerned with performing Laparoscopic procedure in [place] as morcellation and removal of uterus and closure of cuff would be difficult due to limited vaginal access. I would recommend consultation with [facility] for Laparoscopic morcellation. Pt agreeable to this plan. I will send chart to Dr. Katz in [place]. Medical Decision Making: Problems: Moderate: 1+ chronic illnesses with change Risk: High: Decision on elective major surgery w/ risk factors Medical Decision Making Level: 4 - Moderate Leo Abdi [facility]07-03-2024 History of Present illness Narrative* Leo Barnett MD - 08/12/2023 11:33 AM EDT Ticker Installer offered: Patient declines. Violet Hernandez is a 37 year old female who presents for discussion regarding fibroid uterus and surgical mgmt. Pt reports is currently taking OCPs for Premature ovarian failure at age 20. Pt reports had some irregular spotting that resolved. Pt states that she experiences some abdominal discomfort more with exercise, some urinary frequency and some pelvic pressure. Pt reports she does not wish to keep her uterus at this time. Pt reports no other concerns at this time. 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 History Comments: Sexual Activity: Yes; Male Contraception: Pill PAST MEDICAL HISTORY Diagnosis Date Anxiety Depression Leukopenia Mitral prolapse Premature ovarian failure PAST SURGICAL HISTORY Procedure Laterality Date BONE MARROW BIOPSY x 2 ORAL SURGERY PROCEDURE FAMILY HISTORY Problem Relation Age of Onset Cataract Mother Macular Degen Mother Hypertension Father No Known Problems Sister No Known Problems Brother Breast Cancer Maternal Grandmother 55 Skin Cancer Maternal Grandmother Diabetes Maternal Grandmother Heart disease Maternal Grandfather Heart disease Paternal Grandmother Stroke Paternal Grandfather Social History Tobacco Use Smoking status: Never Smokeless tobacco: Never Vaping Use Vaping Use: Never used Substance Use Topics Alcohol use: Never Drug use: Never Current Outpatient Medications Medication Sig naltrexone HCl (NALTREXONE ORAL) Take by mouth. CRANBERRY ORAL Take 2 capsules by mouth once daily. 2 gummies daily Drospirenone-Ethinyl Estradiol (KOKI, 28,) 3-0.03 mg per tablet Take 1 tablet by mouth once daily. FOR CONTINUOUS USE - Take only hormone pills, skipping placebo pills. fluvoxaMINE Maleate (LUVOX) 25 mg tablet Take 100 mg by mouth once daily. buPROPion XL (WELLBUTRIN XL) 150 mg 24 hr tablet Take 300 mg by mouth once daily. ARIPiprazole (ABILIFY) 5 mg tablet Take by mouth. Vitamin E, dl, acetate, (VITAMIN E) 400 unit capsule Take 400 Units by mouth once daily. cyanocobalamin (VITAMIN B-12) 500 mcg tablet Take by mouth once daily. multivit with min-folic acid (ONE-A-DAY WOMEN VITACRAVES) 200 mcg chew One-A-Day Women VitaCraves 200 mcg chewable tablet chew 1 tablet by oral route daily lbdntso-qnnbsvrxs-gjkklvp D3 500 mg(1,250mg) -200 unit per tablet Calcium 500 + D 500 mg (1,250 mg)-200 unit tablet take 1 tablet by oral route 2 times a day (Patient not taking: Reported on 05/19/2023) No current facility-administered medications for this visit. Allergies As of Date: 08/12/2023 (No Known Allergies) Fully Assessed 08/12/2023 REVIEW OF SYSTEMS Abdomen: pain with exercise and pressure. Bladder: frequency.. Expanded ROS: GENERAL: Negative for fever Allergies and current medication updated:Yes EXAM: BP 118/72 Wt 158 lb (71.7kg) LMP 06/09/2022 GENERAL: pleasant, female in no apparent distress HEENT: Normocephalic and atraumatic NECK: full range of motion DERMATOLOGY: Normal and without lesions ABDOMEN: soft, non-tender PELVIC: external genitalia normal, normal Bartholin's glands, urethra, [place]'s glands, no vulvar lesions, no cervical lesions, good vaginal support, physiologic discharge present, normal appearing perineal body and perianal region, narrow vagina BIMANUAL: no adnexal masses, non-tender, and uterus - difficult to palpate due to habitus but feelsenlarged about to 14 weeks but feels mobile- very narrow vagina. NEURO: alert and oriented x3,exam grossly non-focal EXTREMITIES: normal ASSESSMENT AND PLAN: Encounter Diagnosis ICD-10-CM 1. Intramural and subserous leiomyoma of uterus D25.1 CONSULT TO MINIMALLY INVASIVE GYNECOLOGIC SURGERY D25.2 CONSULT TO MINIMALLY INVASIVE GYNECOLOGIC SURGERY 2. Pelvic pressure in female R10.2 CONSULT TO MINIMALLY INVASIVE GYNECOLOGIC SURGERY 3. Urinary frequency R35.0 4. 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 Discussed with patient I am concerned with performing Laparoscopic procedure in [place] as morcellation and removal of uterus and closure of cuff would be difficult due to limited vaginal access. I would recommend consultation with [facility] for Laparoscopic morcellation. Pt agreeable to this plan. Noah send chart to Dr. Katz in [place]. Medical Decision Making: Problems: Moderate: 1+ chronic illnesses with change Risk: High: Decision on elective major surgery w/ risk factors Medical Decision Making Level: 4 - Moderate Leo Abdi MD documented [facility] Telephone encounter Note * Telephone Encounter - Sherly Ng APRN.CNP - 07/02/2023 12:56 PM EDT Pt called with US results of 7.4 cm uterine fibroid. Informed that Dr Monroe reviewed US and thatshe will most likely need a hysterectomy but will need to schedule an appointment with Dr Monroe for an examination before that decision is made. She will schedule appt. Sherly Ng APRN.CNP [facility]05-23-2024 Miscellaneous Notes* Telephone Encounter - Sherly Ng APRN.CNP - 07/02/2023 12:56 PM EDT Pt called with US results of 7.4 cm uterine fibroid. Informed that Dr Monroe reviewed US and thatshe will most likely need a hysterectomy but will need to schedule an appointment with Dr Monroe for an examination before that decision is made. She will schedule appt. Sherly Ng APRN.CNP * Telephone Encounter - Sherly Ng APRN.CNP - 06/30/2023 1:09 PM EDT I will discuss with one of the physicians before discussing with her so it may be a few days beforeI get back with her. Sherly Ng APRN.CNP * Telephone Encounter - Jenny Bull RN - 06/30/2023 9:55 AM EDT Patient calling because she saw u/s results on mychart. Asking what she needs to do next. Jenny Bull RN documented in this encounterMain [facility]05-[facility]24 Telephone encounter Note * Telephone Encounter - Sherly Ng APRN.CNP - 06/30/2023 1:09 PM EDT I will discuss with one of the physicians before discussing with her so it may be a few days beforeI get back with her. Sherly Ng APRN.DANA [facility]05-21-2024 Telephone encounter Note* Telephone Encounter - Jenny Bull RN - 06/30/2023 9:55 AM EDT Patient calling because she saw u/s results on mychart. Asking what she needs to do next. Jenny Bull RN [facility]04-09-2024 Instructions* Patient Instructions* Sherly Ng APRN.CNP - 05/19/2023 11:21 AM EDT Replens vaginal moisturizer. Revaree hyaluronic acid vaginal suppositories. documented in this encounterMain [facility] Center04-[facility]-2024 History of Present illness Narrative* Sherly Ng, CHRISTOPHER.DRUG SAFETY PHYSICIAN - 05/19/2023 10:49 AM EDT Violet is a 37 year old who presents for an annual gynecologic exam without complaints. Had CT in ED 02/02/2024 with incidental finding of 7 cm uterine fibroid. Menses: cycles every 28 days and 4-5 days of flow. Spotting almost daily for 2 months - on continuous use VAMSHI. Contraception: combined hormonal contraceptives, continuous use HPV vaccine: No Last Pap: 05/20/2021 normal HPV: 05/15/2021 negative History of abnormal pap: No Last mammogram: never Sexually active: Yes History of STDS: None Patient concerns for STD exposure: No. Time with current partner: 17 years Pain with intercourse: Yes, thinks due to dryness, uses coconut oil Postcoital bleeding: No Documentation from previous visit of 05/09/2022 was copied and pasted, documentation has been reviewed and edited as necessary for today's visit. 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 History Comments: Sexual Activity: Yes; Male Contraception: Pill PAST MEDICAL HISTORY Diagnosis Date Anxiety Depression Leukopenia Mitral prolapse Premature ovarian failure PAST SURGICAL HISTORY Procedure Laterality Date BONE MARROW BIOPSY x 2 ORAL SURGERY PROCEDURE FAMILY HISTORY Problem Relation Age of Onset Cataract Mother Macular Degen Mother Hypertension Father No Known Problems Sister No Known Problems Brother Breast Cancer Maternal Grandmother 55 Skin Cancer Maternal Grandmother Diabetes Maternal Grandmother Heart disease Maternal Grandfather Heart disease Paternal Grandmother Stroke Paternal Grandfather SOCIAL HISTORY Social History Tobacco Use Smoking status: Never Smokeless tobacco: Never Vaping Use Vaping Use: Never used Substance Use Topics Alcohol use: Never Drug use: Never REVIEW OF SYSTEMS Abdomen: No abdominal pain, nausea, vomiting, diarrhea, or constipation. No bloating, early satiety, indigestion, or increased flatulence. Bladder: No dysuria, gross hematuria, urinary frequency, urinary urgency, or incontinence. Recent treatment of UTI with recurrence. Breast: No breast lumps, nipple d/c, overlying skin changes, redness or skin retraction. Allergies and current medication updated:Yes EXAM: BP 120/81 Pulse 92 Ht 4' 11 (1.50m) Wt 156 lb (70.8kg) LMP 06/09/2022 BMI 31.49 kg/(m^2). GENERAL: pleasant, female in no apparent distress HEENT: Normocephalic, atraumatic, mucus membranes moist, and no lesions NECK: Supple, full range of motion, no adenopathy, and thyroid normal DERMATOLOGY: Normal, without lesions, non-icteric, and non-hirsute BREAST: soft, non-tender, symmetric, no dominant mass, normal nipple-areolar complex, no lymphadenopathy, and no nipple discharge CHEST: Normal inspiratory effort ABDOMEN: soft, non-tender, and no masses PELVIC: external genitalia normal, normal Bartholin's glands, urethra, [place]'s glands, no vulvar lesions, no cervical lesions, good vaginal support, physiologic discharge present, normal appearing perineal body and perianal region, small amount brown blood in vaginal vault BIMANUAL: uterus normal size, shape and consistency, no adnexal masses, and non-tender RECTOVAGINAL: deferred. NEURO: alert and oriented x3,exam grossly non-focal EXTREMITIES: normal ASSESSMENT/PLAN: 1) Health maintenance: Pap/HPV up to date. Mammogram up to date . Nutrition, exercise and routine health maintenance exams reviewed. 2. Premature ovarian failure - ICD9: 256.8, ICD10: E28.39 - DROSPIRENONE 3 MG-ETHINYL ESTRADIOL 0.03 MG TABLET 3. Breakthrough bleeding on control pills - ICD9: 626.6, ICD10: N92.1 - discussed BTB with continuous use VAMSHI. - DROSPIRENONE 3 MG-ETHINYL ESTRADIOL 0.03 MG TABLET - US FEMALE PELVIS TRANSVAG - recent CT with incidental finding of 7 cm fibroid - PELVIC US [facility] 4. Surveillance for control, oral contraceptives - ICD9: V25.41, ICD10: Z30.41 - DROSPIRENONE 3 MG-ETHINYL ESTRADIOL 0.03 MG TABLET 5. Uterine leiomyoma, unspecified location - ICD9: 218.9, ICD10: D25.9 - recent CT with incidental finding of 7 cm fibroid. Pelvic US 2020 - 3.7 fundal intramural fibroid - US FEMALE PELVIS TRANSVAG - PELVIC US [facility] 6) STD screening: Declined STD check. 7) Follow up one year or sooner as needed Sherly Ng APRN.DRUG SAFETY PHYSICIAN documented in this encounterMain [facility] Center12-25-[facility]23 Discharge summary Author Umang Matos [facility] February 02, 2023 1:11am Note Date/Time February 01, 2023 11:20pm [facility] Medical Records Department [address] [place] [address] Emergency Department Summary 02/01/23 MR#: [id number] Acct: [id number] Name: VIOLET HERNANDEZ Rep #: [id number] : 1985 37 From: Umang Matos MD PCP: Dr. Emily Sanders MD Status:R EG ER Location: ED HPI HPI - GI History of Present Illness Chief Complaint: Abd Pain Narrative Narrative: 37-year-old female presents with her because of left upper quadrant abdominal pain/pressure that she has had for the last week and a half. It has been associated with nausea but no vomiting. She denies any problems with bowelmovements or diarrhea, no dysuria or hematuria. No fevers or chills. She has not had any prior abdominal surgeries. She is on control continuously so she does not have menstrual periods. She denies any true exacerbating or alleviating factors to this abdominal pressure. She feels like it is under her left rib cage in the left upper quadrant of her abdomen. She denies any cough or shortness of breath. Sometimes standing affects it. [facility] early February, approximately a week to 2 weeks from now, but she became concerned because of his continued presence. [facility] Medical History Anxiety Anxiety and depression Cervical radiculopathy Chronic neck pain Congestion of left ear Depression Encounter for vitamin deficiency screening Frequent headaches H/O emotional problems Health care maintenance Heart valve disorder Hormone deficiency Hyperglycemia Hypersomnolence Non-alcoholic fatty liver disease Nonrheumatic mitral (valve) prolapse Post-nasal drip Screening for thyroid disorder Seasonal allergies Suicide ideation Urinary frequency UTI (urinary tract infection) Vision problems Vitamin deficiency Home Medications multivitamin 1 tablet PO DAILY 02/16/19 [History Last Taken Unknown] norgestimate 0.25 mg-ethinyl estradiol 35 mcg tablet 1 tab PO DAILY 02/16/19 [History Last Taken Unknown] cyanocobalamin (vitamin B-12) 500 mcg tablet 1,000 mcg PO DAILY@0800 03/26/20 [History Last Taken Unknown] vitamin E (dl, acetate) 180 mg (400 unit) capsule 400 units PO DAILY 03/26/20 [History Last Taken Unknown] bupropion HCl 150 mg 24 hr tablet, extended release 300 mg PO QAM 07/19/20 [History Last Taken Unknown] aripiprazole 5 mg tablet 5 mg PO DAILY 01/17/22 [History Last Taken Unknown] fluvoxamine 25 mg tablet 100 mg PO DAILY 04/24/22 [History Last Taken Unknown] zinc gluconate 50 mg tablet 50 mg PO DAILY 11/03/22 [History Last Taken Unknown] cranberry 400 mg capsule 400 mg PO DAILY 02/01/23 [History Last Taken Unknown] docusate sodium 100 mg capsule (Stool Softener) 100 mg PO DAILY 02/01/23 [History Last Taken Unknown] cephalexin 500 mg capsule 500 mg PO BID #14 caps 02/02/23 [Rx Last Taken Unknown] Allergy/AdvReac Type Severity Reaction Status Date / Time No Known Allergies Allergy Verified 02/01/23 22:20 Family History Brother Anxiety Hypertension Sister Anxiety Hypertension Uncle Anxiety Myocardial infarction Aunt Anxiety Grandmother Breast cancer Grandfather Myocardial infarction Father Hypertension Surgical History History of bone marrow biopsy Social History Smoking Status: Never smoker alcohol intake: never substance use type: does not use caffeine: Yes Type: tea Number of servings: 1 ROS ROS ED ROS Narrative Constitutional: No fever, no chills. HEENT: No sore throat. No neck pain. No loss of vision. No rhinorrhea. Cardiovascular: No chest pain. No palpitations. No pedal edema. Respiratory: No cough, no shortness of breath. Abdominal: Left upper quadrant abdominal pressure/abdominal pain. Positive nausea. No vomiting. Genitourinary: No dysuria. No hematuria. Musculoskeletal: No myalgias. No arthralgias. Neurologic: No headaches. No dizziness. No lightheadedness. Skin: No rash. No change in color. Psychiatric: No depression. History of anxiety. EXAM Physical Exam Narrative Exam Narrative: Afebrile. Vital signs noted. HEENT: Normocephalic. Atraumatic. PERRL, EOMI. Neck soft and supple. No pointtenderness or step off. Cardiovascular: Regular rate and rhythm. No murmurs, rubs, or gallops appreciated. Respiratory: No tachypnea. Lungs clear to auscultation bilaterally. Gastrointestinal: Abdomen soft, nontender, with normoactive bowel sounds. No rebound or guarding. Neurological: Awake. Alert. Nonfocal, nonlateralizing. Skin: No rash. Normal color. No pallor. Musculoskeletal: No pedal edema. Full range of motion extremities. Const Vital Signs: 02/01/23 22:19 Temperature 98 F Temperature Source Temporal Pulse Rate 84 Respiratory Rate 16 Blood Pressure 130/84 H Blood Pressure Mean 99 Pulse Ox 97 Oxygen Delivery Method Room Air MDM MDM MDM Narrative Medical decision making narrative: In the differential diagnosis is ruptured spleen versus bowel obstruction versuspancreatic mass versus nonspecific abdominal pain. I have low suspicion for pulmonary embolism because the history and physical does not support this. I reviewed her laboratory work, and she has a chronic leukopenia with a WBC count of 3.2, hemoglobin 11.5 with platelet count low at 128. This is also a chronic thrombocytopenia. Urinalysis is consistent with UTI with WBC count 50-100 with leukocyte Estrace 500 but negative nitrites. There is 1+ bacteria. I do feel that imaging is indicated. I reviewed her laboratory work and she has the chronic neutropenia as above. Inreview of her CMP, glucose appropriately elevated at 124 with normal anion gap of 6, sodium and potassium are normal at 140 and 3.8 with chloride elevated at 108 which I think is nonspecific. Lipase is 28. Serum is negative. Urinalysis was obtained and reviewed and there are 50-100 WBCs with 1+ bacteria and negative nitrites as stated above. Patient states that she was treated for UTI approximately just over 1 week ago. She thinks she was on Bactrim at that time. I will send a urine culture and start her on cephalexin for the next 7 days. Upon repeat examination, she is resting comfortably and states that she feels mildly improved because she took ibuprofen prior to arrival. She may havean abdominal wall muscle strain as well which is also in the differential. Regardless, in review of her CT, there is no acute process. I had reviewed the radiology report of the CT of the abdomen and pelvis. At this point in time, I do feel she can be discharged to follow-up with her primary care provider. Return instructions to the emergency department were reviewed. She will continue uoxz-ukh-zgempnz analgesics. I do not feel narcotic pain medication isindicated. Disposition is discharged home in stable condition. History & Record Review Discussion w/independent historian: Patient and Family Additional record(s) reviewed:: Prior ED visit and Prior labs Lab Data Attestation: I reviewed the patient's lab results. Labs: Laboratory Results - last 24 hr 02/01/23 02/01/23 22:31 22:50 WBC 3.2 L RBC 3.18 L Hgb 11.5 L Hct 34.5 L MCV 108.5 H MCH 36.2 H MCHC 33.3 RDW Std Deviation 55.8 H RDW Coeff of Kristy 14.0 Plt Count 128 L MPV 10.6 Immature Gran % (Auto) 0.300 Neut % (Auto) 49.2 Lymph % (Auto) 28.4 Daggett % (Auto) 17.4 H Eos % (Auto) 4.1 Baso % (Auto) 0.6 Absolute Neuts (auto) 1.6 L Absolute Lymphs (auto) 0.90 Nucleated RBC % 0 Sodium 140 Potassium 3.8 Chloride 108 H Carbon Dioxide 26.0 Anion Gap 6 BUN 15 Creatinine 1.00 Estim Creat Clear Calc 82.00 Est GFR (MDRD) Af Amer 80 Est GFR (MDRD) Non-Af 66 BUN/Creatinine Ratio 15.0 Glucose 124 H Calcium 9.1 Total Bilirubin 0.20 AST 30 ALT 66 H Alkaline Phosphatase 66 Total Protein 6.6 Albumin 3.4 Globulin 3.2 Albumin/Globulin Ratio 1.1 Lipase 28 Serum , Qual NEGATIVE Urine Color Yellow Urine Clarity Cloudy Urine pH 6.5 Ur Specific [place] 1.015 Urine Protein 30 H Urine Glucose (UA) Normal Urine Ketones 5 H Urine Occult Blood 250 H Urine Nitrite Negative Urine Bilirubin Negative Urine Urobilinogen 1 H Ur Leukocyte Esterase 500 H Urine RBC 0-5 SEEN Urine WBC 50-100 SEEN Ur Squamous Epith Cells 0-5 SEEN Urine Bacteria 1+ Urine Mucus 0 SEEN Radiography Diagnostic Testing: Clinical Impression(s) from Imaging Studies Abdomen/Pelvis CT 02/02/23 00:20 IMPRESSION: No acute finding in the abdomen or pelvis. Prominent uterine fibroid noted. Electronically Signed: Clark Nunn MD at 0:48 EST Reading Location ID and State: [facility] / [place] Tel , Service support , Discharge Plan Triage Chief Complaint: Abd Pain ED Provider: Umang Matos Dx/Rx/DC Orders Clinical Impression: Abdominal pain, LUQ (left upper quadrant), UTI (urinary tract infection) Instructions: ED Abdominal Pain Unkn Cause Fem, ED Pain, Acute, Uncertain Cause, ED Cystitis Female Adult Prescriptions: New cephalexin 500 mg capsule 500 mg PO BID Qty: 14 0RF No Action norgestimate-ethinyl estradiol 0.25-35 mg-mcg tablet 1 tab PO DAILY multivitamin 1 tablet PO DAILY bupropion HCl 150 mg tablet extended release 24 hr 300 mg PO QAM aripiprazole 5 mg tablet 5 mg PO DAILY fluvoxamine 25 mg tablet 100 mg PO DAILY zinc gluconate 50 mg tablet 50 mg PO DAILY cyanocobalamin (vitamin B-12) 500 MCG tablet 1,000 mcg PO DAILY@0800 vitamin E (dl, acetate) 400 UNITS capsule 400 units PO DAILY cranberry 400 mg capsule 400 mg PO DAILY Rx Instructions: administer with a meal docusate sodium [Stool Softener] 100 mg capsule 100 mg PO DAILY Patient Comments: Over the counter Primary Care Provider: Emily Sanders Referrals: Emily Sanders MD [Primary Care Provider] - 3-5 Days if not improving Activity Restrictions/Additional Instructions: Follow-up with your primary care provider in the next 3 to 5 days. Take all of the antibiotic as directed. Return with increased pain, new or worsening symptoms. Disposition Disposition: Home, Self Care What to do if you have Problems For any increased pain, shortness of breath, bleeding, nausea or vomiting, chestpain, or any unexpected problems, contact your Primary Care Provider. Call [facility] ([phone]) or report to the closest Emergency Room. Call 911 if necessary. 02/02/23 0111 <Electronically signed by Umang Matos MD> Cosigner Signature (if applicable): CC: Dr. Emily Sanders MD ~ Signed [facility] Work Phone: [phone]) 371-183309-06-2023 History of Present illness Narrative* Negrito Felix APRN.CNP - 10/15/2022 5:13 PM EDT Signed under wrong patient. Requesting for her son to be seen. Explained that I am not able to see her son with her chart and credentials. Instructed to register visit under her son's name. Appt cancelled and fee waived. Negrito Felix APRN.DRUG SAFETY PHYSICIAN documented in this encounterMain [facility]-31-[facility] History of Present illness Narrative* Sherly Ng APRN.CNP - 05/09/2022 12:49 PM EDT Ticker Installer offered: Patient declines. Violet is a 36 year old who presents for an annual gynecologic exam with complaints, menses every couple of weeks with OCP . Menses: cycles every 28 days and 4-5 days of flow. 4 days of bleeding mid-cycle flow varies spotting to light. Contraception: combined hormonal contraceptives HPV vaccine: No Last Pap: 05/20/2021 normal HPV: 05/15/2021 negative History of abnormal pap: No Last mammogram: never Sexually active: Yes History of STDS: None Patient concerns for STD exposure: No. 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 LMP: 04/28/2022 (Within Days), Having periods Age at Menarche: Age at First : Age at Menopause: Wire Mesh Filter Fabricator History Comments: Sexual Activity: Yes; Male Contraception: Pill PAST MEDICAL HISTORY Diagnosis Date Anxiety Depression Mitral prolapse Premature ovarian failure PAST SURGICAL HISTORY Procedure Laterality Date BONE MARROW BIOPSY x 2 ORAL SURGERY PROCEDURE FAMILY HISTORY Problem Relation Age of Onset Breast Cancer Maternal Grandmother Skin Cancer Maternal Grandmother SOCIAL HISTORY Social History Tobacco Use Smoking status: Never Smokeless tobacco: Never Vaping Use Vaping Use: Never used Substance Use Topics Alcohol use: Never Drug use: Never REVIEW OF SYSTEMS Abdomen: No abdominal pain, nausea, vomiting, diarrhea, or constipation. No bloating, early satiety, indigestion, or increased flatulence. Bladder: No dysuria, gross hematuria, urinary frequency, urinary urgency, or incontinence. Breast: No breast lumps, nipple d/c, overlying skin changes, redness or skin retraction. Allergies and current medication updated:Yes EXAM: BP 122/68 Ht 4' 10 (1.47m) Wt 149 lb (67.6kg) LMP 04/28/2022 BMI 31.15 kg/(m^2). GENERAL: pleasant, female in no apparent distress HEENT: Normocephalic, atraumatic, mucus membranes moist, and no lesions NECK: Supple, full range of motion, no adenopathy, and thyroid normal DERMATOLOGY: Normal, without lesions, non-icteric, and non-hirsute BREAST: soft, non-tender, symmetric, no dominant mass, normal nipple-areolar complex, no lymphadenopathy, and no nipple discharge CHEST: Normal inspiratory effort ABDOMEN: soft, non-tender, and no masses PELVIC: external genitalia normal, normal Bartholin's glands, urethra, [place]'s glands, no vulvar lesions, no cervical lesions, good vaginal support, physiologic discharge present, normal appearing perineal body and perianal region, +ectropion BIMANUAL: uterus normal size, shape and consistency, no adnexal masses, and non-tender RECTOVAGINAL: deferred. NEURO: alert and oriented x3,exam grossly non-focal EXTREMITIES: normal ASSESSMENT/PLAN: 1) Health maintenance: Pap/HPV up to date. Mammogram starting age 40. Nutrition, exercise and routine health maintenance exams reviewed. Calcium/Vitamin D supplementation information provided. 2) Contraception: combined hormonal contraceptives. Contraceptive options reviewed and information provided. 3) STD screening: Declined STD check. 4) Follow up one year or sooner as needed Sherly Ng APRN.DANA documented in this encounterMain [facility] Center12-09-2022 History of Present illness Narrative* Sherly Ng APRN.CNP - 01/17/2022 11:16 AM EST Ticker Installer offered: Patient declines. Violet Hernandez is a 36 year old female who presents for problem visit increase in vaginal bleeding . HPI: Violet continuing to have vaginal bleeding but it has increased in amount and frequency and she is frustrated. She is aware that her cervix does bleed easily. Has noticed that if she strains to have BM, she will have some vaginal bleeding. Does have a hemorrhoid but bleeding is coming from vagina. Has been having bleeding with and after intercourse - increased amount and continues longer than it has in the past. BTB on OCP has increased from a couple of days of spotting to most days. Intermittent mild vaginal itching. No discharge or odor. Pap normal 04/2021. 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 LMP: 04/23/2021, Having periods Age at Menarche: Age at First : Age at Menopause: Wire Mesh Filter Fabricator History Comments: Sexual Activity: Yes; Male Contraception: Pill PAST MEDICAL HISTORY Diagnosis Date Anxiety Depression Mitral prolapse Premature ovarian failure PAST SURGICAL HISTORY Procedure Laterality Date BONE MARROW BIOPSY x 2 FAMILY HISTORY Problem Relation Age of Onset Breast Cancer Maternal Grandmother Skin Cancer Maternal Grandmother Social History Tobacco Use Smoking status: Never Smokeless tobacco: Never Vaping Use Vaping Use: Never used Substance Use Topics Alcohol use: Never Drug use: Never Current Outpatient Medications Medication Sig norgestimate 0.25 mg-ethinyl estradiol 35 mcg (SPRINTEC) 0.25-35 mg-mcg per tablet Take 1 tablet bymouth once daily. multivit with min-folic acid (ONE-A-DAY WOMEN VITACRAVES) 200 mcg chew One-A-Day Women VitaCraves 200 mcg chewable tablet chew 1 tablet by oral route daily FLUoxetine HCl (PROZAC) 40 mg capsule fluoxetine 40 mg capsule OLANZapine (ZYPREXA) 5 mg tablet 2.5 mg. hydrOXYzine HCl (ATARAX) 10 mg tablet hydroxyzine HCl 10 mg tablet cfaisro-vantsxgav-ozvonid D3 500 mg(1,250mg) -200 unit per tablet Calcium 500 + D 500 mg (1,250 mg)-200 unit tablet take 1 tablet by oral route 2 times a day No current facility-administered medications for this visit. Allergies As of Date: 01/17/2022 (No Known Allergies) Fully Assessed 05/07/2021 REVIEW OF SYSTEMS Allergies and current medication updated:No EXAM: BP 110/70 Wt 146 lb (66.2kg) LMP 12/23/2021 GENERAL: pleasant, female in no apparent distress CHEST: Normal inspiratory effort PELVIC: external genitalia normal, normal Bartholin's glands, urethra, [place]'s glands, no vulvar lesions, no cervical lesions, good vaginal support, physiologic discharge present, normal appearing perineal body and perianal region. Cervix ectropion large and vascular but no specific area of bleeding with contact. BIMANUAL: uterus normal size, shape and consistency, no adnexal masses, and non-tender Rectal: one flesh colored soft hemorrhoid NEURO: alert and oriented x3,exam grossly non-focal ASSESSMENT/PLAN: 1. Friable cervix - ICD9: 622.8, ICD10: N88.8 (primary diagnosis) - bleeding has increased in amount and frequency. Cervical ectropion vascular. - JORDYN / TRICHOMONAS AMPLIFICATION - BACTERIAL VAGINOSIS AMPLIFICATION 2. Breakthrough bleeding on OCPs - ICD9: 626.6, ICD10: N92.1 - JORDYN / TRICHOMONAS AMPLIFICATION - BACTERIAL VAGINOSIS AMPLIFICATION 3. Vagina itching - ICD9: 698.1, ICD10: N89.8 - JORDYN / TRICHOMONAS AMPLIFICATION - BACTERIAL VAGINOSIS AMPLIFICATION - discussed bleeding due to friable cervix with pt and that no treatment may be needed or effective. POC developed with pt: If cultures are negative, will treat with Doxycycline. If no change, Violet may choose to try a different VAMSHI. Reinforced that this may continue to be her usual bleeding from cervix. Will notify of results. Follow- up as needed. Sherly Ng APRN.DRUG SAFETY PHYSICIAN Medical Decision Making: Problems: Moderate: 1+ chronic illnesses with change Data: Unique test(s) ordered: 2 Medical Decision Making Level: 3 - Low documented in this encounterMain [facility] Center09-09-2022 History of Present illness Narrative* RT Harjit(R) - 10/18/2021 1:40 PM EDT Radiology Service Progress Note PATIENT NAME: Violet Hernandez DATE OF SERVICE: October 18, 2021 TIME: 1:54 PM PATIENT IDENTITY VERIFICATION COMPLETED USING TWO (2) IDENTIFIERS: Name and Date of confirmedby patient verbally. FALL SCREENING: Has the patient had 2 falls in the last year or 1 fall with injury or currently using an Ambulatory Assistive Device (Walker, Cane, Wheelchair, Crutches, etc.)? No PATIENT GENDER DATA: Female. status: : No status: NO. PATIENT RELEVANT IMPLANT DATA REVIEWED: Yes RADIOLOGY DEPARTMENT: MR; Exam(s) Completed: Spine: Cervical spine PERIPHERAL IV DATA: Not applicable SIGNED BY: RT Harjit(Nick) October 18, 2021 1:54 PM documented in this encounterMain Campus Medical Center03-29-2022 History of Present illness Narrative* Leo Monroe MD - 05/07/2021 2:32 PM EDT Violet is a 35 year old who presents for an annual gynecologic exam without complaints. Still has some spotting on week two of pills- minimal. Son turning 9- autistic. H/o premature ovarianfailure- dx in [place] by jose. Menses: cycles every 28 days and 5 days of flow. Contraception: combined hormonal contraceptives HPV vaccine: No Last Pap: 09/19/2019 normal HPV: 09/17/2019 normal History of abnormal pap: No Last mammogram: never Sexually active: Yes History of STDS: None Patient concerns for STD exposure: No. 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 LMP: 04/23/2021, Having periods Age at Menarche: Age at First : Age at Menopause: Wire Mesh Filter Fabricator History Comments: Sexual Activity: Yes; Male Contraception: Pill PAST MEDICAL HISTORY Diagnosis Date Anxiety Depression Mitral prolapse Premature ovarian failure PAST SURGICAL HISTORY Procedure Laterality Date BONE MARROW BIOPSY x 2 FAMILY HISTORY Problem Relation Age of Onset Breast Cancer Maternal Grandmother Skin Cancer Maternal Grandmother SOCIAL HISTORY Social History Tobacco Use Smoking status: Never Smoker Smokeless tobacco: Never Used Vaping Use Vaping Use: Never used Substance Use Topics Alcohol use: Never Drug use: Never REVIEW OF SYSTEMS Abdomen: No abdominal pain, nausea, vomiting, diarrhea, or constipation. No bloating, early satiety, indigestion, or increased flatulence. Bladder: No dysuria, gross hematuria, urinary frequency, urinary urgency, or incontinence. Breast: No breast lumps, nipple d/c, overlying skin changes, redness or skin retraction. Allergies and current medication updated:Yes EXAM: BP 112/72 Ht 5' 0 (1.52m) Wt 144 lb (65.3kg) LMP 04/23/2021 BMI 28.12 kg/(m^2). GENERAL: pleasant, female in no apparent distress HEENT: Normocephalic, atraumatic, mucus membranes moist and no lesions NECK: Supple, full range of motion, no adenopathy and thyroid normal DERMATOLOGY: Normal, without lesions, non-icteric and non-hirsute BREAST: soft, non-tender, symmetric, no dominant mass, normal nipple-areolar complex, no lymphadenopathy and no nipple discharge ABDOMEN: soft, non-tender and no masses PELVIC: external genitalia normal, normal Bartholin's glands, urethra, [place]'s glands, no vulvar lesions, good vaginal support, physiologic discharge present, normal appearing perineal body and perianal region, cervix friable- bleeds easily on touch. BIMANUAL: uterus normal size, shape and consistency, no adnexal masses and non-tender RECTOVAGINAL: deferred. NEURO: alert and oriented x3,exam grossly non-focal EXTREMITIES: normal ASSESSMENT/PLAN: 1) Health maintenance: Pap done with HPV. Mammogram starting age 40. Nutrition, exercise and routine health maintenance exams reviewed. Calcium/Vitamin D supplementation information provided. 2) Contraception: combined hormonal contraceptives. Contraceptive options reviewed and information provided. 3) STD screening: Declined STD check. 4) Follow up one year or sooner as needed Leo Abdi MD * Edith Infante Ma - 05/07/2021 2:21 PM EDT Ticker Installer offered: Patient declines. documented in this encounterMain [facility] Center03-10-2022 Miscellaneous Notes* Telephone Encounter - Mago Corbett Pss - 04/18/2021 12:29 PM EST Patient did schedule annual with Dr Monroe for 05/07. She is requesting enough medication to get her to this appointment please. * Telephone Encounter - Jenny Bull RN - 04/18/2021 9:34 AM EST Patient overdue for annual exam. YaBeam message sent to schedule. Pending Prescriptions Disp Refills SPRINTEC (28) 0.25 MG-35 MCG TABLET 84 tablet 0 Sig: Take 1 tablet by mouth once daily BHARGAVI: Yes RX INSTRUCTIONS: Pharmacy initiated this request. No need to notify patient. Jenny Bull RN documented in this encounterMain Campus Medical CenterEvaluation + Plan note No data available for this section [facility] Evaluation note* Diagnosis Premature ovarian failure Other ovarian dysfunction documented in this encounter [facility] [place] [facility]* Diagnosis Encounter for gynecological examination (general) (routine) without abnormal findings- Primary Premature ovarian failure Other ovarian dysfunction Screening for cervical cancer Screening for malignant neoplasm of the cervix Encounter for screening for human papillomavirus (HPV) Special screening examination for human papillomavirus (HPV) documented in this encounter [facility] [place] [facility]* Diagnosis Onset Date Resolution Status Chronic leukopenia chronic Lymphopenia acute Chronic leukopenia chronic Encounter for vitamin deficiency screening acute Screening for thyroid disorder acute Anxiety and depression chron ic Chronic neck pain chronic Hypersomnolence chronic Palpitations acute Chest 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, 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 Nonrheumatic mitral (valve) prolapse chronic [facility] Work Phone: Evaluation note* Diagnosis Onset Date Resolution Status Cervical radiculopathy chron ic Chronic neck pain chronic Degenerative disc disease, cervical acute Pain of cervical spine nonea ctive [facility] Work Phone: Evaluation note* Diagnosis Friable cervix- Primary Other specified noninflammatory disorder of cervix Breakthrough bleeding on OCPs Metrorrhagia Vagina itching Pruritus of genital organs documented in this encounter [facility]* Diagnosis Encounter for gynecological examination (general) (routine) without abnormal findings- Primary Premature ovarian failure Other ovarian dysfunction Breakthrough bleeding on control pills Metrorrhagia documented in this encounter [facility] [place] [facility]* Diagnosis APPOINTMENT CANCELLED- Primary documented in this encounter [facility]* Diagnosis Onset Date Resolution Status Palpitations acute Chest pain, 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 Nonrheumatic mitral (valve) prolapse chronic Cystitis acute [facility] Work Phone: Evaluation note* Diagnosis Onset Date Resolution Status Palpitations acute Chest pain, 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 Nonrheumatic mitral (valve) prolapse chronic Cystitis acute Cystitis acute [facility] Work Phone: Evaluation note* Diagnosis Encounter for gynecological examination (general) (routine) without abnormal findings- Primary Premature ovarian failure Other ovarian dysfunction Breakthrough bleeding on control pills Metrorrhagia Surveillance for control, oral contraceptives Surveillance of previously prescribed contraceptive pill Uterine leiomyoma, unspecified location Obesity, Class I, BMI 30-34.9 Obesity, unspecified documented in this encounter [facility]* Diagnosis Onset Date Resolution Status Cystitis acute Dysuria acute Chronic leukopenia chronic Lymphopenia acute Chronic leukopenia chronic Hyperglycemia acute Preventative health care acu te Screening for thyroid disorder acute [facility] Work Phone: Evaluation note* Diagnosis Breakthrough bleeding on control pills Metrorrhagia Uterine leiomyoma, unspecified location documented in this encounter [facility] [place] [facility]* Diagnosis Intramural and subserous leiomyoma of uterus- Primary Pelvic pressure in female Other specified symptom associated with female genital organs Urinary frequency Premature ovarian failure Other ovarian dysfunction documented in this encounter [facility] [place] [facility]* Diagnosis Pelvic pain in female- Primary Unspecified symptom associated with female genital organs Intramural and subserous leiomyoma of uterus Preop examination Preoperative examination, unspecified documented in this encounter [facility] note* Diagnosis Preop testing- Primary Preoperative examination, unspecified Intramural and subserous leiomyoma of uterus Pelvic pain in female Unspecified symptom associated with female genital organs Preop examination Preoperative examination, unspecified documented in this encounter [facility] note* Diagnosis Educational circumstances- Primary Educational circumstance Intramural and subserous leiomyoma of uterus Pelvic pain in female Unspecified symptom associated with female genital organs Preop examination Preoperative examination, unspecified documented in this encounter [facility] note* Diagnosis Pre-operative examination- Primary Preoperative examination, unspecified Leukopenia, unspecified type Thrombocytopenia (HCC) Thrombocytopenia, unspecified Fatty liver Other chronic nonalcoholic liver disease Mitral valve prolapse Mitral valve disorders Basal cell carcinoma (BCC), unspecified site Mixed anxiety depressive disorder Dysthymic disorder Obesity, Class I, BMI 30-34.9 Obesity, unspecified * Assessment & Plan Note - Adeline Jama APRN.CNP - 11/10/2023 9:46 AM EDT Associated Problem(s): Obesity, Class I, BMI 30-34.9 Assessment: Body mass index is 33.02 kg/m . * Assessment & Plan Note - Adeline Jama APRN.CNP - 11/10/2023 9:45 AM EDT Associated Problem(s): Mixed anxiety depressive disorder Assessment: stable on rx per pt * Assessment & Plan Note - Adeline Jama APRN.CNP - 11/10/2023 9:45 AM EDT Associated Problem(s): BCC (basal cell carcinoma of skin) Assessment: s/p excision * Assessment & Plan Note - Adeline Jama APRN.CNP - 11/09/2023 11:59 AM EDT Associated Problem(s): Mitral valve prolapse Images from the original note were not included. Assessment: hx, asymptomatic, following cardiology 11/03/22 Javi Rivero CNP, [facility] * Assessment & Plan Note - Adeline Jama APRN.CNP - 11/09/2023 11:55 AM EDT Associated Problem(s): Fatty liver Assessment: per pt report Albumin (g/dL) Date Value 11/06/2023 4.3 Bilirubin, Total (mg/dL) Date Value 11/06/2023 0.3 Alkaline Phosphatase (U/L) Date Value 11/06/2023 69 AST (U/L) Date Value 11/06/2023 59 (H) ALT (U/L) Date Value 11/06/2023 80 (H) Protein, Total (g/dL) Date Value 11/06/2023 6.5 * Assessment & Plan Note - Adeline Jama APRN.CNP - 11/09/2023 11:55 AM EDT Associated Problem(s): Thrombocytopenia (HCC) Assessment: Platelet Count Date Value Ref Range Status 11/06/2023 110 (L) 150 - 400 k/uL Final * Assessment & Plan Note - Adeline Jama APRN.CNP - 11/09/2023 11:55 AM EDT Associated Problem(s): Leukopenia Images from the original note were not included. Assessment: chronic WBC Date Value Ref Range Status 11/06/2023 2.80 (L) 3.70 - 11.00 k/uL Final 10/06/23 Dr. Braun, Hematology Martin documented in this encounter [facility] note* Diagnosis Pre-operative examination- Primary Preoperative examination, unspecified Leukopenia, unspecified type Thrombocytopenia (HCC) Thrombocytopenia, unspecified Fatty liver Other chronic nonalcoholic liver disease Mitral valve prolapse Mitral valve disorders Basal cell carcinoma (BCC), unspecified site Mixed anxiety depressive disorder Dysthymic disorder Obesity, Class I, BMI 30-34.9 Obesity, unspecified Post-operative state- Primary Other postprocedural status documented in this encounter [facility] note* Diagnosis Pre-operative examination- Primary Preoperative examination, unspecified Leukopenia, unspecified type Thrombocytopenia (HCC) Thrombocytopenia, unspecified Fatty liver Other chronic nonalcoholic liver disease Mitral valve prolapse Mitral valve disorders Basal cell carcinoma (BCC), unspecified site Mixed anxiety depressive disorder Dysthymic disorder Obesity, Class I, BMI 30-34.9 Obesity, unspecified Postop check- Primary Follow-up examination, following unspecified surgery Premature ovarian failure Other ovarian dysfunction documented in this encounter [facility] note* Diagnosis Pre-operative examination- Primary Preoperative examination, unspecified Leukopenia, unspecified type Thrombocytopenia (HCC) Thrombocytopenia, unspecified Fatty liver Other chronic nonalcoholic liver disease Mitral valve prolapse Mitral valve disorders Basal cell carcinoma (BCC), unspecified site Mixed anxiety depressive disorder Dysthymic disorder Obesity, Class I, BMI 30-34.9 Obesity, unspecified Vaginal discharge- Primary Leukorrhea, not specified as infective documented in this encounter [facility] note* Diagnosis Pre-operative examination- Primary Preoperative examination, unspecified Leukopenia, unspecified type Thrombocytopenia (HCC) Thrombocytopenia, unspecified Fatty liver Other chronic nonalcoholic liver disease Mitral valve prolapse Mitral valve disorders Basal cell carcinoma (BCC), unspecified site Mixed anxiety depressive disorder Dysthymic disorder Obesity, Class I, BMI 30-34.9 Obesity, unspecified Abnormal uterine bleeding (AUB)- Primary documented in this encounter [facility] note* Diagnosis Pre-operative examination- Primary Preoperative examination, unspecified Leukopenia, unspecified type Thrombocytopenia (HCC) Thrombocytopenia, unspecified Fatty liver Other chronic nonalcoholic liver disease Mitral valve prolapse Mitral valve disorders Basal cell carcinoma (BCC), unspecified site Mixed anxiety depressive disorder Dysthymic disorder Obesity, Class I, BMI 30-34.9 Obesity, unspecified Fatty liver- Primary Other chronic nonalcoholic liver disease Encounter for screening mammogram for malignant neoplasm of breast Other screening mammogram Hormone replacement therapy (HRT) Need for prophylactic hormone replacement therapy (postmenopausal) * Assessment & Plan Note - Leo Barnett MD - 02/11/2024 1:59 PM EST Associated Problem(s): Fatty liver Reviewed ok to continue Vivelle dot and recommended at this time. Continue weight loss- whole foods. Low carb, higher protein. Exercise- routine Continue routine follow up with GI [facility] Influenza A- Primary Influenza with other respiratory manifestations Acute cough documented in this encounter [facility] Work Phone: Evaluation note* Diagnosis Pre-operative examination- Primary Preoperative examination, unspecified Leukopenia, unspecified type Thrombocytopenia Thrombocytopenia, unspecified Fatty liver Other chronic nonalcoholic liver disease Mitral valve prolapse Mitral valve disorders Basal cell carcinoma (BCC), unspecified site Mixed anxiety depressive disorder Dysthymic disorder Obesity, Class I, BMI 30-34.9 Obesity, unspecified Fatty liver- Primary Other chronic nonalcoholic liver disease Encounter for screening mammogram for malignant neoplasm of breast Other screening mammogram Hormone replacement therapy (HRT) Need for prophylactic hormone replacement therapy (postmenopausal) Encounter for gynecological examination (general) (routine) without abnormal findings- Primary Superficial dyspareunia Premature surgical menopause on hormone replacement therapy Postablative ovarian failure Encounter for screening mammogram for breast cancer [facility] Additional Instructions Follow-up with your primary care provider in the next 3 to 5 days. Take all of the antibiotic as directed. Return with increased pain, new or worsening symptoms.[facility] Work Phone: Hospital Discharge instructionsAmbulatory Orders* Dental Location: None Selected [facility] Work Phone: Hospital Discharge instructions No data available for this section [facility] Progress note No data available for this section [facility] Reason for referral (narrative)* Diagnostic Procedure Only (Routine) - Pending Review Specialty Diagnoses / Procedures Referred By Ricardo hernández Referred To Contact [facility] Diagnoses Breakthrough bleeding on control pills Uterine leiomyoma, unspecified location Procedures PELVIC US WHI US PELVIC NONOBSTETRIC REAL-TIME IMAGE COMPLETE Sherly Ng APRN.CNP [address] [place] [address] [facility] [address] [place] [address] Referral ID Status Reason Start Date Expiration Date Visits Requested Visits Authorized [id number] Pending Review Auto-Generat ed Referral 05/19/2023 05/18/2024 1 1 * Diagnostic Procedure Only (Routine) - Authorized Specialty Diagnoses / Procedures Referred By Ricardo hernández Referred To Contact [facility] Diagnoses Breakthrough bleeding on control pills Uterine leiomyoma, unspecified location Procedures US FEMALE PELVIS TRANSVAG US TRANSVAGINAL Sherly Ng APRN.CNP [address] [place] [address] [place] [address] Referral ID Status Reason Start Date Expiration Date Visits Requested Visits Authorized [id number] Authorized Auto-Generat ed Referral 05/19/2023 06/17/2024 [address] [facility] for referral (narrative)* Diagnostic Procedure Only (Routine) - Authorized Specialty Diagnoses / Procedures Referred By Ricardo hernández Referred To Contact [facility] Diagnoses Encounter for screening mammogram for malignant neoplasm of breast Procedures GUSTAVO SCREENING W LOW SCREENING DIGITAL BREAST TOMOSYNTHESIS BI SCREENING MAMMOGRAPHY BI 2-VIEW BREAST INC CAD Leo Barnett MD [address] [place] [address] [facility] [address] [place] [address] Referral ID Status Reason Start Date Expiration Date Visits Requested Visits Authorized [id number] Authorized Auto-Generat ed Referral 02/11/2024 03/12/2025 1 1 [facility]No reason for referral information [facility]WFostoria City [facility] Work Phone: Reason for visit Narrative* Diagnostic Procedure Only (Routine) - Closed Specialty Diagnoses / Procedures Referred By Contac t Referred To Contact [facility] Diagnoses Breakthrough bleeding on control pills Uterine leiomyoma, unspecified location Procedures US FEMALE PELVIS TRANSVAG US TRANSVAGINAL Sherly Ng, [employer] 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 [address] [place] [address] [place] [address] Referral ID Status Reason Start Date Expiration Date V isits Requested Visits Authorized [id number] Closed Auto-Generate d Referral 05/19/2023 06/17/2024 1 1 [facility] Summary Purpose Family History No Family History Records Found Relationship Condition Age at Onset Recorded Date/T isaac brother Anxiety Unknown Hypertension Unknown sister Anxiety Unknown uncle Anxiety Unknown Myocardial infarction Unknown aunt Anxiety Unknown grandmother Malignant neoplasm of breast Unknown grandfather Myocardial infarction Unknown father Hypertension Unknown Advance Directives No Advanced Directives Records Found Advance Directive Response Recorded Date/ Time Living Will No February 01, 023 10:35pm Power of Blueprinting And Photocopy Supervisor No February 01, 2023 10:35pm Advance Directive Response Recorded Date/ Time Living Will No February 01 023 11:35pm Power of Blueprinting And Photocopy Supervisor No February 01, 2023 11:35pm Advance Directive Response Recorded Date/ Time Living Will No July 24, 2023 11:15am Power of Blueprinting And Photocopy Supervisor No July 23 11:15am Living Will No March 31 025 6:29am Power of Blueprinting And Photocopy Supervisor No March 31, 2024 6:29am Living Will No April 03 10:35am Power of Blueprinting And Photocopy Supervisor No April 03, 2024 10:35am Advance Directive Response Recorded Date/ Time Living Will No February 20th, 2 025 7:29am Do you have a Healthcare Power of Blueprinting And Photocopy Supervisor? No March 31, 2024 7:29am Living Will No April 03 11:35am Do you have a Healthcare Power of Blueprinting And Photocopy Supervisor? No April 03, 2024 11:35am Living Will No July 24, 2023 12:15pm Do you have a Healthcare Power of Blueprinting And Photocopy Supervisor? No July 24, 2023 12:15pm Advance Directive Response Recorded Date/ Time Living Will No March 31 7:29am Do you have a Healthcare Power of Blueprinting And Photocopy Supervisor? No March 31, 2024 7:29am Living Will No April 03 11:35am Do you have a Healthcare Power of Blueprinting And Photocopy Supervisor? No April 03, 2024 11:35am Chief Complaint and Reason for Visit Chief Complaint 1 YR - LABS HEM/ONC ANXIETY/BACK PAIN HYPERSOMNOLENCE CHRONIC NECK PAIN, CERVICALGIA. RX HERE 1 y fu Reason for Visit Chronic leukopenia Lymphopenia Chronic leukopenia Encounter for vitamin deficiency screening Screening for thyroid disorder Anxiety and depression Chronic neck pain Hypersomnolence Palpitations Chest pain, unspecified Nonrheumatic mitral (valve) prolapse Chief Complaint CHRONIC NECK PAIN, C ERVICALGIA. RX HERE NECK PROBLEMS Cervical pain CERVICAL RAD Reason for Visit Cervical radiculopat hy Chronic neck pain Degenerative disc disease, cervical Pain of cervical spine Chief Complaint 1 y fu PREV PFM PT CONCERN FOR UTI Reason for Visit Palpitations Chest pain, unspecified Nonrheumatic mitral (valve) prolapse Cystitis Chief Complaint 1 y fu PREV PFM PT CONCERN FOR UTI ABD PAIN Reason for Visit Palpitations Chest pain, unspecified Nonrheumatic mitral (valve) prolapse Cystitis Chief Complaint 1 y fu PREV PFM PT CONCERN FOR UTI ABD PAIN ACUTE HOSPITAL FU Reason for Visit Palpitations Chest pain, unspecified Nonrheumatic mitral (valve) prolapse Cystitis Cystitis Chief Complaint ACUTE HOSPITAL FU 1 YEAR, LABS HEM/ONC FOLLOW UP Reason for Visit Cystitis Dysuria Chronic leukopenia Lymphopenia Chronic leukopenia Hyperglycemia Preventative health care Screening for thyroid disorder Chief Complaint Admit Date BONE DENSITY DISCUSSION December 30, 3:56pm FATTY LIVER January 12, 2024 9 :52am PALPITATIONS January 18, 2024 1 2:13pm PALPITATIONS January 18, 2024 2 :59pm FATTY LIVER February 08, 2024 2:01pm OSTEOPENIA, PREMATURE OVARIAN FAILURE Zenon sewell 2024 2:07pm cold March 31, 2024 6:25am CHEST PAIN April 03, 2024 9:49am [facility] FU April 04, 2024 9:10am Reason for Visit Admit Date COELHO (nonalcoholic steatohepatitis) Divyamanuela mikhail 2023 3:56pm Osteopenia December 31, 2023 3:56pm Costochondritis April 04, 2024 9:10am Hypersomnolence April 04, 2024 9:10am Influenza A April 04, 2024 9:10am Chief Complaint Admit Date FATTY LIVER January 12, 2024 9 :52am PALPITATIONS January 18, 2024 1 2:13pm PALPITATIONS January 18, 2024 2 :59pm FATTY LIVER February 08, 2024 2:01pm OSTEOPENIA, PREMATURE OVARIAN FAILURE Zenon sewell 2024 2:07pm cold March 31, 2024 6:25am CHEST PAIN April 03, 2024 9:49am [facility] FU April 04, 2024 9:10am HEM/ONC April 18, 2024 8:2 6am Hyposomnolence April 22, 2024 7:4 1pm 1YEAR LABS PRIOR April 25, 2024 12: 56pm FU ON SLEEP STUDY April 27, 2024 7:4 6am Reason for Visit Admit Date Costochondritis April 04, 2024 9:10am Hypersomnolence April 04, 2024 9:10am Influenza A April 04, 2024 9:10am Lymphopenia April 18, 2024 8:2 6am Chronic leukopenia April 18, 2024 8:2 6am Chronic leukopenia April 25, 2024 12: 56pm Monocytosis April 25, 2024 12: 56pm Dysuria April 27, 2024 7:4 6am NICA (obstructive sleep apnea) April 7:46am Chief Complaint Admit Date cold March 31, 2024 6:25am CHEST PAIN April 03, 2024 9:49am [facility] FU April 04, 2024 9:10am HEM/ONC April 18, 2024 8:2 6am Hyposomnolence April 22, 2024 7:4 1pm 1YEAR LABS PRIOR April 25, 2024 12: 56pm FU ON SLEEP STUDY April 27, 2024 7:4 6am COUGH, MUCUS, CHEST CONGESTION June 20, 2024 7:52am FATTY LIVER June 27, 2024 9:34a m NAFLD MILD/MODERATE SCARRING June 29, 2 025 8:01am Reason for Visit Admit Date Costochondritis April 04, 2024 9:10am Hypersomnolence April 04, 2024 9:10am Influenza A April 04, 2024 9:10am Lymphopenia April 18, 2024 8:2 6am Chronic leukopenia April 18, 2024 8:2 6am Chronic leukopenia April 25, 2024 12: 56pm Monocytosis April 25, 2024 12: 56pm Dysuria April 27, 2024 7:4 6am NICA (obstructive sleep apnea) April 7:46am Common bile duct dilation June 29, 2024 8:01am Elevated alkaline phosphatase level June 29, 2024 8:01am Elevated transaminase level June 29 8:01am COELHO (nonalcoholic steatohepatitis) June 29, 2024 8:01am Chief Complaint Admit Date cold March 31, 2024 6:25am CHEST PAIN April 03, 2024 9:49am [facility] FU April 04, 2024 9:10am HEM/ONC April 18, 2024 8:2 6am Hyposomnolence April 22, 2024 7:4 1pm 1YEAR LABS PRIOR April 25, 2024 12: 56pm FU ON SLEEP STUDY April 27, 2024 7:4 6am COUGH, MUCUS, CHEST CONGESTION June 20, 2024 7:52am FATTY LIVER June 27, 2024 9:34a m NAFLD MILD/MODERATE SCARRING June 29, 2 025 8:01am FU July 19, 2024 12:0 1pm Reason for Visit Admit Date Costochondritis April 04, 2024 9:10am Hypersomnolence April 04, 2024 9:10am Influenza A April 04, 2024 9:10am Lymphopenia April 18, 2024 8:2 6am Chronic leukopenia April 18, 2024 8:2 6am Chronic leukopenia April 25, 2024 12: 56pm Monocytosis April 25, 2024 12: 56pm Dysuria April 27, 2024 7:4 6am NICA (obstructive sleep apnea) April 7:46am Common bile duct dilation June 29, 2024 8:01am Elevated alkaline phosphatase level June 29, 2024 8:01am Elevated transaminase level June 29 8:01am COELHO (nonalcoholic steatohepatitis) June 29, 2024 8:01am Drug-induced liver injury July 19 12:01pm Elevated liver enzymes July 19, 2024 1 2:01pm Metabolic dysfunction-associated steatoh epatitis (MASH) July 19, 2024 12:01pm Chief Complaint Admit Date cold March 31, 2024 6:25am CHEST PAIN April 03, 2024 9:49am [facility] FU April 04, 2024 9:10am Hyposomnolence April 22, 2024 7:4 1pm 1YEAR LABS PRIOR April 25, 2024 12: 56pm FU ON SLEEP STUDY April 27, 2024 7:4 6am COUGH, MUCUS, CHEST CONGESTION June 20, 2024 7:52am FATTY LIVER June 27, 2024 9:34a m NAFLD MILD/MODERATE SCARRING June 29 025 8:01am FU July 19, 2024 12:0 1pm HEM/ONC July 28, 2024 11:1 5am Reason for Visit Admit Date Costochondritis April 04, 2024 9:10am Hypersomnolence April 04, 2024 9:10am Influenza A April 04, 2024 9:10am Chronic leukopenia April 25, 2024 12: 56pm Monocytosis April 25, 2024 12: 56pm Dysuria April 27, 2024 7:4 6am NICA (obstructive sleep apnea) April 7:46am Common bile duct dilation June 29, 2024 8:01am Elevated alkaline phosphatase level June 29, 2024 8:01am Elevated transaminase level June 29 8:01am COELHO (nonalcoholic steatohepatitis) June 29, 2024 8:01am Drug-induced liver injury July 19 12:01pm Elevated liver enzymes July 19, 2024 1 2:01pm Metabolic dysfunction-associated steatoh epatitis (MASH) July 19, 2024 12:01pm Chronic leukopenia July 28, 2024 11:1 5am Monocytosis July 28, 2024 11:1 5am Lymphopenia July 28, 2024 11:1 5am Reason for Referral Specialty Diagnoses / Procedures Referred By Contac t Referred To Contact Diagnoses Intramural and subserous leiomyoma of uterus Pelvic pressure in female Procedures CONSULT TO MINIMALLY INVASIVE GYNECOLOGIC SURGERY Leo Barnett MD [address] [place] [address] [address] Phone: [phone] Referral ID Status Reason Start Date Expiration Date Visits Requested Visits Authorized [id number] Ref Not Required PCP Requested Referral 08/12/2023 08/11/2024 1 1 Specialty Diagnoses / Procedures Referred By Contac t Referred To Contact Diagnoses Intramural and subserous leiomyoma of uterus Procedures CONSULT TO MINIMALLY INVASIVE GYNECOLOGIC SURGERY OFFICE/OUTPATIENT [facility] 60 MINUTES Leo Barnett MD [address] [place] [address] Referral ID Status Reason Start Date Expiration Date Visits Requested Visits Authorized [id number] Authorized PCP Requested Referral Auto-Generate d Referral 08/12/2023 08/11/2024 1 1 Additional Source Comments INFORMATION SOURCE (unrecogn ized section and content) DATE CREATED AUTHOR 11/25/2018 [facility] ([place]) DATE CREATED AUTHOR AUTHOR'S ORGANIZ ATION 01/22/2021 [facility] DATE CREATED AUTHOR AUTHOR'S ORGANIZ ATION 03/30/2024 [facility] DATE CREATED AUTHOR AUTHOR'S ORGANIZ ATION 05/22/2024 [facility] DATE CREATED AUTHOR AUTHOR'S ORGANIZ ATION 07/17/2024 [facility] DATE CREATED AUTHOR AUTHOR'S ORGANIZ ATION 07/30/2024 [facility] <item> Privacy Markings (unrecogniz ed section and content) Section Author: Alley Morales PROHIBITION ON REDISCLOSURE OF CONFIDENTIAL INFORMATION This notice accompanies a disclosure of information concerning a client made to you with the consent of such client. Source Comments (unrecognize d section and content) In the event this informatio n is protected by the Federal Confidentiality of Alcohol and Drug Abuse Patient Records regulations: The Federal rules restrict any use of the information to criminally investigate or prosecute any alcohol or drug abuse patient.[facility] the event this information is protected by the Federal Confidentiality of Alcohol and Drug Abuse Patient Records regulations: The Federal rules restrict any use of the information to criminally investigate or prosecute any alcohol or drug abuse patient.[facility] the event this information is protected by the Federal Confidentiality of Alcohol and Drug Abuse Patient Records regulations: The Federal rules restrict any use of the information to criminally investigate or prosecute any alcohol or drug abuse patient.[facility] the event this information is protected by the Federal Confidentiality of Alcohol and Drug Abuse Patient Records regulations: The Federal rules restrict any use of the information to criminally investigate or prosecute any alcohol or drug abuse patient.[facility] the event this information is protected by the Federal Confidentiality of Alcohol and Drug Abuse Patient Records regulations: The Federal rules restrict any use of the information to criminally investigate or prosecute any alcohol or drug abuse patient.[facility] the event this information is protected by the Federal Confidentiality of Alcohol and Drug Abuse Patient Records regulations: The Federal rules restrict any use of the information to criminally investigate or prosecute any alcohol or drug abuse patient.[facility] the event this information is protected by the Federal Confidentiality of Alcohol and Drug Abuse Patient Records regulations: The Federal rules restrict any use of the information to criminally investigate or prosecute any alcohol or drug abuse patient.[facility] the event this information is protected by the Federal Confidentiality of Alcohol and Drug Abuse Patient Records regulations: The Federal rules restrict any use of the information to criminally investigate or prosecute any alcohol or drug abuse patient.[facility] Center[facility] the event this information is protected by the Federal Confidentiality of Alcohol and Drug Abuse Patient Records regulations: The Federal rules restrict any use of the information to criminally investigate or prosecute any alcohol or drug abuse patient.[facility] Center[facility] the event this information is protected by the Federal Confidentiality of Alcohol and Drug Abuse Patient Records regulations: The Federal rules restrict any use of the information to criminally investigate or prosecute any alcohol or drug abuse patient.[facility] CenterIn the event this information is protected by the Federal Confidentiality of Alcohol and Drug Abuse Patient Records regulations: The Federal rules restrict any use of the information to criminally investigate or prosecute any alcohol or drug abuse patient.[facility] Center[facility] the event this information is protected by the Federal Confidentiality of Alcohol and Drug Abuse Patient Records regulations: The Federal rules restrict any use of the information to criminally investigate or prosecute any alcohol or drug abuse patient.[facility] Center[facility] the event this information is protected by the Federal Confidentiality of Alcohol and Drug Abuse Patient Records regulations: The Federal rules restrict any use of the information to criminally investigate or prosecute any alcohol or drug abuse patient.[facility] CenterIn the event this information is protected by the Federal Confidentiality of Alcohol and Drug Abuse Patient Records regulations: The Federal rules restrict any use of the information to criminally investigate or prosecute any alcohol or drug abuse patient.[facility] Center[facility] the event this information is protected by the Federal Confidentiality of Alcohol and Drug Abuse Patient Records regulations: The Federal rules restrict any use of the information to criminally investigate or prosecute any alcohol or drug abuse patient.[facility] CenterIn the event this information is protected by the Federal Confidentiality of Alcohol and Drug Abuse Patient Records regulations: The Federal rules restrict any use of the information to criminally investigate or prosecute any alcohol or drug abuse patient.[facility] CenterIn the event this information is protected by the Federal Confidentiality of Alcohol and Drug Abuse Patient Records regulations: The Federal rules restrict any use of the information to criminally investigate or prosecute any alcohol or drug abuse patient.[facility] CenterIn the event this information is protected by the Federal Confidentiality of Alcohol and Drug Abuse Patient Records regulations: The Federal rules restrict any use of the information to criminally investigate or prosecute any alcohol or drug abuse patient.[facility] CenterIn the event this information is protected by the Federal Confidentiality of Alcohol and Drug Abuse Patient Records regulations: The Federal rules restrict any use of the information to criminally investigate or prosecute any alcohol or drug abuse patient.[facility] CenterIn the event this information is protected by the Federal Confidentiality of Alcohol and Drug Abuse Patient Records regulations: The Federal rules restrict any use of the information to criminally investigate or prosecute any alcohol or drug abuse patient.[facility] CenterIn the event this information is protected by the Federal Confidentiality of Alcohol and Drug Abuse Patient Records regulations: The Federal rules restrict any use of the information to criminally investigate or prosecute any alcohol or drug abuse patient.[facility] CenterIn the event this information is protected by the Federal Confidentiality of Alcohol and Drug Abuse Patient Records regulations: The Federal rules restrict any use of the information to criminally investigate or prosecute any alcohol or drug abuse patient.[facility] CenterIn the event this information is protected by the Federal Confidentiality of Alcohol and Drug Abuse Patient Records regulations: The Federal rules restrict any use of the information to criminally investigate or prosecute any alcohol or drug abuse patient.[facility] CenterIn the event this information is protected by the Federal Confidentiality of Alcohol and Drug Abuse Patient Records regulations: The Federal rules restrict any use of the information to criminally investigate or prosecute any alcohol or drug abuse patient.[facility] CenterIn the event this information is protected by the Federal Confidentiality of Alcohol and Drug Abuse Patient Records regulations: The Federal rules restrict any use of the information to criminally investigate or prosecute any alcohol or drug abuse patient.[facility] CenterIn the event this information is protected by the Federal Confidentiality of Alcohol and Drug Abuse Patient Records regulations: The Federal rules restrict any use of the information to criminally investigate or prosecute any alcohol or drug abuse patient.[facility] CenterIn the event this information is protected by the Federal Confidentiality of Alcohol and Drug Abuse Patient Records regulations: The Federal rules restrict any use of the information to criminally investigate or prosecute any alcohol or drug abuse patient.[facility] CenterIn the event this information is protected by the Federal Confidentiality of Alcohol and Drug Abuse Patient Records regulations: The Federal rules restrict any use of the information to criminally investigate or prosecute any alcohol or drug abuse patient.[facility] CenterIn the event this information is protected by the Federal Confidentiality of Alcohol and Drug Abuse Patient Records regulations: The Federal rules restrict any use of the information to criminally investigate or prosecute any alcohol or drug abuse patient.[facility] CenterIn the event this information is protected by the Federal Confidentiality of Alcohol and Drug Abuse Patient Records regulations: The Federal rules restrict any use of the information to criminally investigate or prosecute any alcohol or drug abuse patient.[facility] CenterIn the event this information is protected by the Federal Confidentiality of Alcohol and Drug Abuse Patient Records regulations: The Federal rules restrict any use of the information to criminally investigate or prosecute any alcohol or drug abuse patient.[facility] CenterIn the event this information is protected by the Federal Confidentiality of Alcohol and Drug Abuse Patient Records regulations: The Federal rules restrict any use of the information to criminally investigate or prosecute any alcohol or drug abuse patient.[facility] Reason for Visit (unrecogniz ed section and content) Reason Comments Refill Request Reason Comments Yearly Exam Reason Comments Irregular Menstrual Cycle Reason Comments Appointment Cancelled Reason Comments Well Woman Reason Comments Results Appointment Reason Comments Consult Reason Comments Appointment Reason Comments Patient Question Reason Comments New Patient Specialty Diagnoses / Procedures Referred By Ricardo hernández Referred To Contact Diagnoses Intramural and subserous leiomyoma of uterus Procedures CONSULT TO MINIMALLY INVASIVE GYNECOLOGIC SURGERY OFFICE/OUTPATIENT NEW HIGH MDM 60 MINUTES Leo Barnett MD [address] [place] [address] Referral ID Status Reason Start Date Expiration Date V isits Requested Visits Authorized [id number] Closed PCP Requested Referral Auto-Generated Referral 08/12/2023 08/11/2024 1 1 Reason Onset Date Comments Pre-Op Teaching 2023 Reason Comments Consult Reason Comments Orders Reason Comments Post Op Follow Up Reason Comments Surgical Followup Reason Comments Post-Op Visit Reason Comments Post-Op Visit Cuff check. Patient states she has been experiencing bleeding with bowel movements, is believes the blood is vaginal. Reason Comments Post Op Reason Comments Discussion Reason Comments Flu Symptoms Fever, body aches, h eadache, congestion, sore throat X 4 days Reason Comments Well Woman Care Teams (unrecognized sec tion and content) Irrigation Equipment Remover Relationship Specialty Start Date End Date Emily Sanders MD [address] [facility] [address] [place] [address] PCP - General Internal Medicine 04/18/21 Irrigation Equipment Remover Relationship Specialty Start Date End Date Emily Sanders MD [address] [facility] [address] [place] [address] PCP - General Internal Medicine 04/18/21 Irrigation Equipment Remover Relationship Specialty Start Date End Date Emily Sanders MD [address] [facility] [address] [place] [address] PCP - General Internal Medicine 04/18/21 Irrigation Equipment Remover Relationship Specialty Start Date End Date Emily Sanders MD [address] [facility] [address] [place] [address] PCP - General Internal Medicine 04/18/21 Irrigation Equipment Remover Relationship Specialty Start Date End Date Emily Sanders MD [address] [facility] [address] [place] [address] PCP - General Internal Medicine 04/18/21 Team Status: Active Member Role Status Dates Dr. Emily Sanders MD Primary Care Provider Active Team Status: Inactive Member Role Status Dates Dr. Emily Sanders MD Primary Care Provider, Refer ring Provider Active Javi Rivero DREDGE PUMP OPERATOR, DREDGE PUMP OPERATOR-C Attending Provider Active Team Status: Inactive Member Role Status Dates Dr. Emily Sanders MD Primary Care Provider, Refer ring Provider Active Miki JOHNSON PA Attending Provider Active Team Status: Inactive Member Role Status Dates Dr. Emily Sanders MD Primary Care Provider Active Miki Hu PA, PA Attending Provider Active Team Status: Inactive Member Role Status Dates Dr. Emily Sanders MD Primary Care Provider Active Umang Matos MD Emergency Provider Active Team Status: Inactive Member Role Status Dates Dr. Emily Sanders MD Primary Care Provider, Refer ring Provider Active ELIZABETH Morales Attending Provider Active Team Status: Inactive Member Role Status Dates Dr. Emily Sanders MD Primary Care Provider Active Umang Matos MD Attending Provider, Emergency Provid er Active Team Status: Inactive Member Role Status Dates Dr. Emily Sanders MD Primary Care Provider, Atten ding Provider Active Irrigation Equipment Remover Relationship Specialty Start Date End Date Emily Sanders MD [address] [place] [address] (Fax) PCP - General Internal Medicine 04/18/21 Team Status: Inactive Member Role Status Dates Dr. Emily Sanders MD Primary Care Provider, Refer ring Provider Active Dr. Gene Braun MD Attending Provider Active Team Status: Inactive Member Role Status Dates Dr. Emily Sanders MD Primary Care P robert, Attending Provider, Referring Provider Active Team Status: Active Member Role Status Dates Dr. Gene Braun MD Attending Provider Active DEFINED NOT Referring Provider Active Dr. Emily Sanders MD Primary Care Provider Active Irrigation Equipment Remover Relationship Specialty Start Date End Date Emily Sanders MD [address] [place] [address] (Fax) PCP - General Internal Medicine 04/18/21 Irrigation Equipment Remover Relationship Specialty Start Date End Date Emily Sanders MD [address] [place] [address] (Fax) PCP - General Internal Medicine 04/18/21 Irrigation Equipment Remover Relationship Specialty Start Date End Date Emily Sanders MD [address] [place] [address] PCP - General Internal Medicine 04/18/21 Irrigation Equipment Remover Relationship Specialty Start Date End Date Emily Sanders MD [address] [facility] [address] [place] [address] PCP - General Internal Medicine 04/18/21 Irrigation Equipment Remover Relationship Specialty Start Date End Date Emily Sanders MD [address] [facility] [address] [place] [address] PCP - General Internal Medicine 04/18/21 Irrigation Equipment Remover Relationship Specialty Start Date End Date Emily Sanders MD [address] [facility] [address] [place] [address] PCP - General Internal Medicine 04/18/21 Irrigation Equipment Remover Relationship Specialty Start Date End Date Emily Sanders [facility] [address] [facility] [address] [place] [address] PCP - General Internal Medicine 04/18/21 Irrigation Equipment Remover Relationship Specialty Start Date End Date Emily Sanders MD [address] [facility] [address] [place] [address] PCP - General Internal Medicine 04/18/21 Irrigation Equipment Remover Relationship Specialty Start Date End Date Emily Sanders MD [address] [facility] [address] [place] [address] PCP - General Internal Medicine 04/18/21 Irrigation Equipment Remover Relationship Specialty Start Date End Date Emily Sanders MD [address] [place] [address] PCP - General Internal Medicine 04/18/21 Irrigation Equipment Remover Relationship Specialty Start Date End Date Emily Sanders MD [address] [place] [address] PCP - General Internal Medicine 04/18/21 Irrigation Equipment Remover Relationship Specialty Start Date End Date Emily Sanders MD [address] [place] [address] PCP - General Internal Medicine 04/18/21 Irrigation Equipment Remover Relationship Specialty Start Date End Date Emily Sanders MD [address] [place] [address] PCP - General Internal Medicine 04/18/21 Irrigation Equipment Remover Relationship Specialty Start Date End Date Emily Sanders MD [address] [place] [address] PCP - General Internal Medicine 04/18/21 Irrigation Equipment Remover Relationship Specialty Start Date End Date Emily Sanders MD [address] [place] [address] PCP - General Internal Medicine 04/18/21 Irrigation Equipment Remover Relationship Specialty Start Date End Date Emily Sanders MD [address] [place] [address] PCP - General Internal Medicine 04/18/21 Irrigation Equipment Remover Relationship Specialty Start Date End Date Emily Sanders MD [address] [place] [id number] PCP - General Internal Medicine 04/18/21 Irrigation Equipment Remover Relationship Specialty Start Date End Date Emily Sanders MD [address] [facility] [address] [place], [place] [id number] PCP - General Internal Medicine 03/29/24 Team Status: Inactive Member Role Status Dates Dr. Emily Sanders MD Primary Care Provider Active Start: December 31, 2023 End: December 31, 2023 Dr. Emily Sanders MD Attending Provider Active Start: December 31, 2023 End: December 31, 2023 Dr. Emily Sanders MD Referring Provider Active Start: December 31, 2023 End: December 31, 2023 Team Status: Inactive Member Role Status Dates Dr. Emily Sanders MD Primary Care Provider Active Start: January 12, 2024 End: January 12, 2024 Dr. Jorgito Boogie MD Attending Provider Active Start: January 12, 2024 End: January 12, 2024 Dr. Jorgito Boogie MD Referring Provider Active Start: January 12, 2024 End: January 12, 2024 Team Status: Inactive Member Role Status Dates Dr. Emily Sanders MD Primary Care Provider Active Start: January 14, 2024 End: January 14, 2024 Dr. Emily Sanders MD Attending Provider Active Start: January 14, 2024 End: January 14, 2024 Dr. Emily Sanders MD Referring Provider Active Start: January 14, 2024 End: January 14, 2024 Team Status: Inactive Member Role Status Dates Dr. Emily Sanders MD Primary Care Provider Active Start: January 18, 2024 End: January 18, 2024 Dr. Ghada Magana MD Attending Provider Active Start: January 18, 2024 End: January 18, 2024 Dr. Ghada Magana MD Referring Provider Active Start: January 18, 2024 End: January 18, 2024 Team Status: Active Member Role Status Dates Dr. Emily Sanders MD Primary Care Provider Active Start: January 18, 2024 Dr. Ghada Magana MD Referring Provider Active Start: January 18, 2024 Dr. Ghada Magana MD Other Provider Active Star t: January 18, 2024 Dr. Ricki Forrest MD Attending Provider Active S tart: January 18, 2024 Team Status: Inactive Member Role Status Dates Dr. Emily Sanders MD Primary Care Provider Active Start: February 08, 2024 End: February 08, 2024 Dr. Jorgito Boogie MD Attending Provider Active Start: February 08, 2024 End: February 08, 2024 Dr. Jorgito Boogie MD Referring Provider Active Start: February 08, 2024 End: February 08, 2024 Team Status: Inactive Member Role Status Dates Dr. Emily Sanders MD Primary Care Provider Active Start: February 11, 2024 End: February 11, 2024 Dr. Emily Sanders MD Attending Provider Active Start: February 11, 2024 End: February 11, 2024 Dr. Emily Sanders MD Referring Provider Active Start: February 11, 2024 End: February 11, 2024 Team Status: Inactive Member Role Status Dates Dr. Emily Sanders MD Primary Care Provider Active Start: March 23, 2024 End: March 23, 2024 Dr. Jorgito Boogie MD Attending Provider Active Start: March 23, 2024 End: March 23, 2024 Dr. Jorgito Boogie MD Referring Provider Active Start: March 23, 2024 End: March 23, 2024 Team Status: Inactive Member Role Status Dates Dr. Emily Sanders MD Primary Care Provider Active Start: March 31, 2024 End: March 31, 2024 Dr. Alli Ding MD Attending Provider Active Sta rt: March 31, 2024 End: March 31, 2024 Dr. Alli Ding MD Emergency Provider Active Sta rt: March 31, 2024 End: March 31, 2024 Team Status: Inactive Member Role Status Dates Dr. Emily Sanders MD Primary Care Provider Active Start: April 03, 2024 End: April 03, 2024 Dr. Willy Burt MD Emergency Provider Active Start: April 03, 2024 End: April 03, 2024 Team Status: Inactive Member Role Status Dates Dr. Emily Sanedrs MD Primary Care Provider Active Start: April 04, 2024 End: April 04, 2024 Dr. Emily Sanders MD Attending Provider Active Start: April 04, 2024 End: April 04, 2024 Dr. Emily Sanders MD Referring Provider Active Start: April 04, 2024 End: April 04, 2024 Team Status: Inactive Member Role Status Dates Dr. Emily Sanders MD Primary Care Provider Active Start: April 03, 2024 End: April 03, 2024 Dr. Willy Burt MD Attending Provider Active Start: April 03, 2024 End: April 03, 2024 Dr. Willy Burt MD Emergency Provider Active Start: April 03, 2024 End: April 03, 2024 Team Status: Active Member Role Status Dates Dr. Gene Braun MD Attending Provider Active S tart: April 18, 2024 DEFINED NOT Referring Provider Active Start: 2024 Dr. Emily Sanders MD Primary Care Provider Active Start: April 18, 2024 Team Status: Inactive Member Role Status Dates Dr. Emily Sanders MD Primary Care Provider Active Start: April 22, 2024 End: April 22, 2024 Dr. Emily Sanders MD Attending Provider Active Start: April 22, 2024 End: April 22, 2024 Dr. Emily Sanders MD Referring Provider Active Start: April 22, 2024 End: April 22, 2024 Team Status: Inactive Member Role Status Dates Dr. Emily Sanders MD Primary Care Provider Active Start: April 25, 2024 End: April 25, 2024 Dr. Emily Sanders MD Referring Provider Active Start: April 25, 2024 End: April 25, 2024 Dr. Gene Braun MD Attending Provider Active S tart: April 25, 2024 End: April 25, 2024 Team Status: Inactive Member Role Status Dates Dr. Emily Sanders MD Primary Care Provider Active Start: April 27, 2024 End: April 27, 2024 Dr. Emily Sanders MD Attending Provider Active Start: April 27, 2024 End: April 27, 2024 Dr. Emily Sanders MD Referring Provider Active Start: April 27, 2024 End: April 27, 2024 Team Status: Active Member Role Status Dates Dr. Emily Sanders MD Primary Care Provider Active Start: April 27, 2024 Dr. Emily Sanders MD Attending Provider Active Start: April 27, 2024 Dr. Emily Sanders MD Referring Provider Active Start: April 27, 2024 Irrigation Equipment Remover Relationship Specialty Start Date End Date Emily Sanders MD [address] [facility] [address] [place] [phone] PCP - General Internal Medicine 04/18/21 Irrigation Equipment Remover Relationship Specialty Start Date End Date Emily Sanders MD [address] [facility] [address] [place] [phone] PCP - General Internal Medicine 04/18/21 Team Status: Inactive Member Role Status Dates Dr. Emily Sanders MD Primary Care Provider Active Start: June 20, 2024 End: June 20, 2024 Dr. Emily Sanders MD Referring Provider Active Start: June 20, 2024 End: June 20, 2024 Adi Galo PA, PA Attending Provider Active Start: June 20, 2024 End: June 20, 2024 Team Status: Active Member Role Status Dates Dr. Emily Sanders MD Primary Care Provider Active Start: June 27, 2024 Dr. Jorgito Boogie MD Attending Provider Active Start: June 27, 2024 Dr. Jorgito Boogie MD Referring Provider Active Start: June 27, 2024 Team Status: Inactive Member Role Status Dates Dr. Emily Sanders MD Referring Provider Active Start: June 29, 2024 End: June 29, 2024 Vonda Mueller DREDGE PUMP OPERATOR-C Attending Provider Active Start: June 29, 2024 End: June 29, 2024 Team Status: Inactive Member Role Status Dates Dr. Emily Sanders MD Primary Care Provider Active Start: June 27, 2024 End: June 27, 2024 Dr. Jorgito Boogie MD Attending Provider Active Start: June 27, 2024 End: June 27, 2024 Dr. Jorgito Boogie MD Referring Provider Active Start: June 27, 2024 End: June 27, 2024 Team Status: Inactive Member Role Status Dates Dr. Emily Sanders MD Primary Care Provider Active Start: June 30, 2024 End: June 30, 2024 Vonda Mueller DREDGE PUMP OPERATOR-C Attending Provider Active Start: June 30, 2024 End: June 30, 2024 Vonda Mueller DREDGE PUMP OPERATOR-C Referring Provider Active Start: June 30, 2024 End: June 30, 2024 Team Status: Active Member Role Status Dates Dr. Emily Sanders MD Primary Care Provider Active Start: July 14, 2024 Vonda Mueller DREDGE PUMP OPERATOR-C Attending Provider Active Start: July 14, 2024 Vonda Mueller DREDGE PUMP OPERATOR-C Referring Provider Active Start: July 14, 2024 Team Status: Inactive Member Role Status Dates Dr. Gulshan Jules MD Attending Provider Active Start: July 19, 2024 End: July 19, 2024 Dr. Emily Sanders MD Primary Care Provider Active Start: July 19, 2024 End: July 19, 2024 Dr. Emily Sanders MD Referring Provider Active Start: July 19, 2024 End: July 19, 2024 Team Status: Inactive Member Role Status Dates Dr. Emily Sanders MD Primary Care Provider Active Start: July 14, 2024 End: July 14, 2024 Vonda Mueller DREDGE PUMP OPERATOR-C Attending Provider Active Start: July 14, 2024 End: July 14, 2024 Vonda Mueller DREDGE PUMP OPERATOR-C Referring Provider Active Start: July 14, 2024 End: July 14, 2024 Team Status: Active Member Role Status Dates Dr. Gene Braun MD Attending Provider Active S tart: July 28, 2024 DEFINED NOT Referring Provider Active Start: Ju 2024 Dr. Emily Sanders MD Primary Care Provider Active Start: July 28, 2024 Goals (unrecognized section and content) Goals may be documented in a n alternate sectionGoals may be documented in an alternate sectionGoals may be documented in an alternate sectionGoals may be documented in an alternate sectionGoals may be documented in an alternate sectionGoals may be documented in an alternate sectionGoals may be documented in an alternate sectionGoals may be documented in an alternate sectionGoals may be documented in an alternate sectionGoals may be documented in an alternate sectionGoals may be documented in an alternate sectionGoals may be documented in an alternate section No data available for this sectionGoals may be documented in an alternate sectionGoals may be documented in an alternate sectionGoals may be documented in an alternate section FOR RECORDS PERTAINING TO PATIENTS WHO ARE OR HAVE BEEN ENROLLED IN A CHEMICAL DEPENDENCY/SUBSTANCEABUSE PROGRAM, SOME INFORMATION MAY BE OMITTED. This clinical summary was aggregated from multiple sources. Caution should be exercised in using it in the provision of clinical care. This summary normalizes information from multiple sources, and as a consequence, information in this document may materially change the coding, format and clinical context of patient data. In addition, data may be omitted in some cases. CLINICAL DECISIONS SHOULD BE BASED ON THE PRIMARY CLINICAL RECORDS. [employer] [facility]. provides no warranty or guarantee of the accuracy or completeness of information in this document.
[2024-09-03 16:28] VITALS: BP 113/65; PULSE 63; RESP 20; TEMP 36.7; O2SAT 98
[2024-09-03 16:46] VITALS: BP 127/61; PULSE 50; RESP 16; O2SAT 99
--- NOTE | 2024-09-03 16:46 | ED.RN ---
called pharmacy to verify safety of taking NSAIDS for pain with Luvox
== END 2024-09-03 16:46 | disposition home or self-care (01) ==
PROVIDERS: Emergency Provider Emergency Medicine; PCP Internal Medicine; Visit Provider Emergency Medicine
DX: S91.331A Puncture wound without foreign body, right foot, initial encounter (principal); W45.0XXA Nail entering through skin, initial encounter; Z23 Encounter for immunization
CPT/HCPCS: 73630; 90471; 90715; 99282

== ENCOUNTER 2024-09-10 05:51 | Emergency (ER) | payer BC, SELFPAY ==
[2024-09-10 05:54] VITALS: BP 134/59; PULSE 52; RESP 16; TEMP 36.9; O2SAT 100; BMI 28.0
--- NOTE | 2024-09-10 06:03 | EKG12_ITS ---
Test Reason : DYSRHYTHMIA Blood Pressure : */* mmHG Vent. Rate : 63 BPM Atrial Rate : 63 BPM P-R Int : 130 ms QRS Dur : 70 ms QT Int : 434 ms P-R-T Axes : 55 59 68 degrees QTcB Int : 444 ms Normal sinus rhythm Normal ECG Confirmed by NICO MCGEE, LACY ([id number]), copy editor DANNY MCKEON ([id number]) on 09/13/2024 7:53:25 AM Referred By: Confirmed By: LACY WALSH MD
--- NOTE | 2024-09-10 06:04 | EX.ED.DYSGE1 ---
HPI History of Present Illness Chief Complaint: General Illness Informant: patient and parent Narrative Narrative: Here with mother for evaluation increasing fluttering in her chest this evening. It made her feel short of breath. No nausea or vomiting. States she has been having chills. Approximately week ago stepped on a nail on the right foot was seen in the ED tetanus updated just finished antibiotics of Cipro. States that time did have burning with urination but subsided. No cough no runny nose. Saw her PCP yesterday for follow-up things healing appropriately. Denies any swelling or pain in the feet. History of anxiety has had similar symptoms however wanted make sure things were okay. No significant caffeine use history. Hysterectomy last year. Prior similar symptoms: Yes PFSH PFS Medical History NICA (obstructive sleep apnea) Costochondritis COELHO (nonalcoholic steatohepatitis) Osteopenia Obesity (BMI 30.0-34.9) Abdominal pain Chronic diarrhea Preventative health care Depression Anxiety Cervical radiculopathy Hyperglycemia Encounter for vitamin deficiency screening Chronic neck pain Hypersomnolence Screening for thyroid disorder Health care maintenance Congestion of left ear Post-nasal drip Urinary frequency Nonrheumatic mitral (valve) prolapse Non-alcoholic fatty liver disease Suicide ideation Anxiety and depression Heart valve disorder Vitamin deficiency Vision problems Hormone deficiency Frequent headaches H/O emotional problems UTI (urinary tract infection) Seasonal allergies Home Medications ?Medication ?Instructions ?Recorded ?Last Taken ?Type vitamin E (dl, acetate) 180 mg 400 units PO DAILY 03/26/20 Unknown History (400 unit) capsule docusate sodium 100 mg capsule 100 mg PO DAILY PRN constipation 12/11/23 Unknown History (Stool Softener) albuterol sulfate 90 mcg/actuation 2 inh inhalation Q4H PRN shortness 03/31/24 Unknown History aerosol inhaler of breath or wheezing cholecalciferol (vitamin D3) 50 50 mcg PO DAILY 03/31/24 Unknown History mcg (2,000 unit) tablet (D3 DOTS) estradiol 0.1 mg/24 hr semiweekly 1 patch topical SUWE 03/31/24 Unknown History transdermal patch (Marge) fluvoxamine 100 mg tablet 100 mg PO DAILY 03/31/24 Unknown History metronidazole 1 % topical gel 1 applic topical DAILY PRN 04/25/24 Unknown History Perioral detmatitis vitamin B complex 1 tab PO QDAY 04/27/24 Unknown History rosuvastatin 10 mg tablet 5 mg (1/2 x 10 mg) PO DAILY 1 07/19/24 Unknown Rx month #30 tabs cetirizine 10 mg capsule 10 mg PO DAILY Seasonal allergies 09/09/24 Unknown History cephalexin 500 mg capsule 500 mg PO Q12 #14 CAPSULES 09/10/24 Unknown Rx Allergy/AdvReac Type Severity Reaction Status Date / Time No Known Allergies Allergy Verified 09/10/24 05:53 Family History Brother Anxiety Hypertension Sister Anxiety Hypertension Uncle Anxiety Myocardial infarction Aunt Anxiety Grandmother Breast cancer Grandfather Myocardial infarction Father Hypertension Surgical History History of hysterectomy Hx of local excision of skin lesion History of bone marrow biopsy Social History Smoking Status: Never smoker alcohol intake: never substance use type: does not use caffeine: Yes Type: tea Number of servings: 1 ROS ROS ED Constitutional Constitutional ED: Denies fever(s) Cardiovascular Cardiovascular: Reports palpitations; Denies chest pain Respiratory/Chest Respiratory/Chest: Reports dyspnea; Denies cough Gastrointestinal Gastrointestinal: Denies diarrhea or vomiting Musculoskeletal Musculoskeletal: Denies none Integumentary Denies rash or wounds Neurologic Neurologic: Denies weakness EXAM Physical Exam Const Vital Signs: 09/10/24 05:54 09/10/24 05:57 Temperature 98.4 F Temperature Source Oral Pulse Rate 52 L Respiratory Rate 16 Respiratory Effort Normal Non-Labored Respiratory Pattern Normal Blood Pressure 134/59 H Blood Pressure Mean 84 Pulse Ox 100 Oxygen Delivery Method Room Air Positive well nourished and well developed General Appearance ED: well developed and NAD HEENT Reports moist mucous membranes normocephalic and atraumatic Eyes General Eye ED: Yes normal appearance of both eyes Neck full ROM Chest Wall Chest: Negative for tenderness Resp normal respiratory effort and normal air movement Effort and Inspection: symmetric chest movement; Negative for respiratory distress Cardio regular rhythm and no murmurs Rate: bradycardia Peripheral Pulses: pulses 2+ throughout GI normal to inspection, nondistended, normoactive bowel sounds and non-tender Palpation: Negative for guarding or rebound tenderness present Extremity normal to inspection General Extremety ED: Negative for edema or tenderness General Extremity: Negative for edema Neuro oriented x3 and no sensory deficits noted Sensorium / Orientation: awake and alert Skin Skin Narrative: Base of foot plantar aspect peeling skin however no erythema no drainage nontender. No swelling of the foot MDM MDM MDM Narrative Medical decision making narrative: Interventions / MDM: Differential diagnosis: Palpitations, UTI, Diagnosis considered but do not suspect: Pulmonary embolism however PERC criteria negative. Electrolyte abnormalities however labs are normal. My EKG interpretation: Sinus rhythm 63, no ST or T wave changes QTc 444. Imaging independently reviewed and interpreted by myself: N/A External documents reviewed: Seen in the ED a week ago foot x-ray negative started on Cipro. Test considered but not ordered:N/A ED course: Reports social fluttering causing dyspnea. Reporting some paresthesias likely from her breathing fast at home or anxiety. Heart rate in the monitor 50s to low 60s. Sinus rhythm. For recent chills and urine symptoms. Will check EKG basic labs and urine. Will reevaluate. Urine with signs of infection, also symptomatic. With her finishing Cipro having symptoms we will send for culture. Will start Keflex. Labs are stable. Reassuring findings close with patient possible outpatient Holter monitor reviewed with For which she had before. All questions were answered. Re-evaluation: stable Disposition discussed with patient/family/significant other: Patient and mother Case discussed with consulting clinician: N/A This note was generated with [employer] dictation software. It may contain incorrect words, spelling, and punctuation that were not noted in checking the note before signing. Lab Data Attestation: I reviewed the patient's lab results. Labs: Laboratory Results - last 24 hr 09/10/24 09/10/24 06:26 06:42 WBC 3.7 L RBC 3.77 L Hgb 13.2 Hct 37.7 MCV 100.0 H MCH 35.0 H MCHC 35.0 RDW Std Deviation 53.2 H RDW Coeff of Kristy 14.5 Plt Count 159 MPV 11.0 Immature Gran % (Auto) 0.300 Neut % (Auto) 53.4 Lymph % (Auto) 27.9 Upson % (Auto) 14.8 H Eos % (Auto) 3.3 Baso % (Auto) 0.3 Absolute Neuts (auto) 2.0 Absolute Lymphs (auto) 1.02 Nucleated RBC % 0 Sodium 141 Potassium 4.0 Chloride 104 Carbon Dioxide 24.4 Anion Gap 12 BUN 12 Creatinine 0.83 Estim Creat Clear Calc 74.27 Est GFR (MDRD) Non-Af 92 BUN/Creatinine Ratio 14.6 Glucose 97 Calcium 9.2 Urine Color Yellow Urine Clarity Clear Urine pH 7.0 Ur Specific [place] 1.010 Urine Protein 15 H Urine Glucose (UA) Normal Urine Ketones Negative Urine Occult Blood Negative Urine Nitrite Negative Urine Bilirubin Negative Urine Urobilinogen Normal Ur Leukocyte Esterase 500 H Urine RBC 0 SEEN Urine WBC 10-25 SEEN Ur Squamous Epith Cells 5-10 SEEN Urine Bacteria 0 SEEN Urine Mucus 0 SEEN Discharge Plan Triage Chief Complaint: General Illness ED Provider: Marvin Edouard Dx/Rx/DC Orders Clinical Impression: Palpitations, Nonrheumatic mitral (valve) prolapse, UTI (urinary tract infection) Instructions: Urinary Tract Infections in Women, ED Palpitations Prescriptions: New cephalexin 500 mg capsule 500 mg PO Q12 Qty: 14 0RF No Action metronidazole 1 % gel 1 applic topical DAILY PRN vitamin B complex Tablet 1 tab PO QDAY Rx Instructions: pt reports she takes one B complex gummy per day, unsure on strength rosuvastatin 10 mg tablet 5 mg PO DAILY 30 Days Qty: 30 4RF cetirizine 10 mg capsule 10 mg PO DAILY vitamin E (dl, acetate) 400 UNITS capsule 400 units PO DAILY docusate sodium [Stool Softener] 100 mg capsule 100 mg PO DAILY PRN (Reason: constipation) Patient Comments: Over the counter estradiol [Marge] 0.1 mg/24 hr patch semiweekly 1 patch topical SUWE fluvoxamine 100 mg tablet 100 mg PO DAILY albuterol sulfate 90 mcg/actuation HFA aerosol inhaler 2 inh INHALATION Q4H PRN (Reason: shortness of breath or wheezing) Patient Comments: [NO ORIGINAL SIG] cholecalciferol (vitamin D3) [D3 DOTS] 50 mcg (2,000 unit) tablet 50 mcg PO DAILY Primary Care Provider: Tiffany Sanders Referrals: Tiffany Sanders MD [Primary Care Provider] - 1 Week Activity Restrictions/Additional Instructions: EKG normal no heart blocks rate in the 60s. The monitor area run in the 40s and 50s. Labs are stable urine did note signs of infection. Culture sent. Take antibiotic as prescribed. Follow-up with your doctor for reevaluation and further testing as needed. Print Language: Hebrew Disposition Disposition: Home, Self Care
--- OUTSIDE RECORDS SUMMARY | 2024-09-10 06:37 | XMS RPT_ITS | CCD ---
Author Organization [facility] Care Team Providers Care 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 Name Role Phone Required, No Pcp Unavailable [...] 0) Dr. Emily Sanders Attending Provider [phone] Dr. Emily Sanders Referring Provider [phone] Dr. Mo Joaquin Attending Provider [phone] Emily Sanders MD Primary Care Provider [phone] Emily Sanders MD Primary Care Provider [phone] Dr. Emily Sanders Primary Care Provider [phone] Dr. Emily Sanders Referring Provider [phone] Mat ELECTRONICS ENGINEERING TECHNICIAN, GLADYS-[place] Cooper Attending Provider ELIZABETH Watt Attending Provider ELIZABETH Quintero Attending Provider [phone] Dr. Emily Sanders Primary Care Provider [phone] Dr. Emily Sanders Referring Provider [phone] ELIZABETH Quintero Attending Provider [phone] Dr. Gene Braun Attending Provider Dr. Emily Sanders Attending Provider [phone] Marilyn MCGEE, Emily Ramsey Primary Care Provider [phone] EMILY SANDERS Primary Care Unav VALENTINE Price Attending Unavailable Marilyn MCGEE, Emily Spencer Primary Care Prov ider Marilyn MCGEE, Dr. [...] Provider Timur MCGEE, Dr. Carson Emergency Provider Dr. Willy Burt MD Emergency Provider Marilyn MCGEE, Dr. Allen Primary Care Provider Dr. Jorgito Boogie MD Attending Provider Keagan MCGEE, Dr. Bull Referring Provider Marilyn MCGEE, Dr. Allen Attending Provider [phone] Marilyn MCGEE, Dr. Allen Referring Provider [phone] Chino MCGEE, Dr. Urrutia Attending Provider Chino [...] Unavailable OLEGHE, EFEWONGBE B Primary Care Unavailable ADELIEN JAMA Referring Unavailable OLEGHE, EFEWONGBE B Primary Care Unavailable OLEGHE, EFEWONGBE B Primary Care Unavailable BILLRL, LEE Admitting Unavailable OLEGHE, EFEWONGBE B Primary Care Unavailable BILLOW, LEE Attending Unavailable BILLOW, LEE Referring Unavailable OLEGHE, EFEWONGBE B Primary Care Unavailable LEO BARNETT Referring Unavail able BILLRL, LEE Attending Unavailable OLEGHE, EFEWONGBE B Primary Care Unavailable OLEGHE, EFEWONGBE B Primary Care Unavailable NEYSHAHZADT PARVEZ MONROERE Attending Unavail able OLEGHE, EFEWONGBE B Primary Care Unavailable NG, SHERLY Referring Unavailable OLEGHE, EFEWONGBE B Primary Care Unavailable NG, SHERLY Attending Unavailable NG, SHERLY Referring Unavailable OLEGHE, EFEWONGBE B Primary Care Unavailable NELONDONT PARVEZ MONROERE Attending Unavail able Marilyn MCGEE, Dr. Allen Primary Care Provider Keagan MCGEE, Dr. Bull Attending Provider Keagan MCGEE, Dr. Bull Referring Provider Marilyn MCGEE, Dr. Allen Attending Provider [phone] Marilyn MCGEE, Dr. Allen Referring Provider [phone] Adi Coleman Attending Provider Bradley ELECTRONICS ENGINEERING TECHNICIAN-C, Vonda Attending Provider Bradley ELECTRONICS ENGINEERING TECHNICIAN-C, Vonda Referring Provider MARILYN MCGEE, EMILY Ramsey Primary Care [phone] MARILYN MCGEE, EMILY Ramsey Primary Care Unavailab le BRADLEY LEMOSN-VONDA CORTEZ Attending Maya Jules MD, Dr. Gaffney Attending Provider Marilyn MCGEE, Dr. Allen Primary Care Provider Keagan MCGEE, Dr. Bull Attending Provider Keagan MCGEE, Dr. Bull Referring Provider Kade MCGEE, Dr. Mills Attending Provider NOT, DEFINED Referring Provider Unavailable Marilyn MCGEE, Dr. Allen Primary Care Provider Marilyn MCGEE, Dr. Allen Referring Provider [phone] Dr. Gene Braun MD Attending Provider [phone] Dr. Noe Schroeder DO Emergency Provider [phone] Jenni Mata Attending Unavailable Oleghe, Efewongbe Referring Unavailable Oleghe, Efewongbe Primary Care Unavailable Adi Galo Attending Unavailable Oleghe, Efewongbe Referring Unavailable Oleghe, Efewongbe Primary Care Unavailable Oleghe, Efewongbe Primary Care Unavailable Oleghe, Efewongbe Attending Unavailable Oleghe, Efewongbe Referring Unavailable NOT, DEFINED Referring Unavailable Gene Braun Attending Unavailable Oleghe, Efewongbe Primary Care Unavailable Oleghe, Efewongbe Referring Unavailable Gulshan Jules Attending Unavailable Oleghe, Efewongbe Primary Care Unavailable Oleghe, Efewongbe Primary Care Unavailable Willy Burt Attending Unavailable Oleghe, Efewongbe Primary Care Unavailable Jabour, Vincent Referring Unavailable Jabour, Chelient Attending Unavailable DingBritnio Attending Unavailable Oleghe, Efewongbe Primary Care Unavailable Jabour, Jorgito Attending Unavailable Jabour, Vincent Referring Unavailable Oleghe, Efewongbe Primary Care Unavailable Vonda Mueller Attending Unavailable BradleyVonda Referring Unavailable Oleghe, Efewongbe Primary Care Unavailable Oleghe, Efewongbe Attending Unavailable Oleghe, Efewongbe Referring Unavailable Oleghe, Efewongbe Primary Care Unavailable Oleghe, Efewongbe Primary Care Unavailable Jabour, Vincent Referring Unavailable Jabour, Chelient Attending Unavailable Oleghe, Efewongbe Referring Unavailable Adi Galo Attending Unavailable Oleghe, Efewongbe Primary Care Unavailable Oleghe, Efewongbe Referring Unavailable Gene Braun Attending Unavailable Oleghe, Efewongbe Primary Care Unavailable Oleghe, Efewongbe Primary Care Unavailable Oleghe, Efewongbe Attending Unavailable Oleghe, Efewongbe Referring Unavailable Oleghe, Efewongbe Attending Unavailable Oleghe, Efewongbe Referring Unavailable Oleghe, Efewongbe Primary Care Unavailable Oleghe, Efewongbe Referring Unavailable Gene Braun Attending Unavailable Oleghe, Efewongbe Primary Care Unavailable JabourJorgito Attending Unavailable Jabour, Vincent Referring Unavailable Oleghe, Efewongbe Primary Care Unavailable Oleghe, Efewongbe Attending Unavailable Oleghe, Efewongbe Referring Unavailable Oleghe, Efewongbe Primary Care Unavailable ChinoGhada gallegos Attending Unavailable Chino, Ghada Referring Unavailable Oleghe, Efewongbe Primary Care Unavailable JabourJorgito Attending Unavailable Jabour, Vincent Referring Unavailable Oleghe, Efewongbe Primary Care Unavailable Oleghe, Efewongbe Primary Care Unavailable Oleghe, Efewongbe Referring Unavailable Oleghe, Efewongbe Attending Unavailable Oleghe, Efewongbe Referring Unavailable Oleghe, Efewongbe Attending Unavailable Oleghe, Efewongbe Primary Care Unavailable Vonda Mueller Attending Unavailable Vonda Mueller Referring Unavailable Oleghe, Efewongbe Primary Care Unavailable Adi Galo Attending Unavailable Adi Galo Referring Unavailable Oleghe, Efewongbe Primary Care Unavailable Chino, Ghada Consulting Unavailable Chino, Ghada Referring Unavailable Ricki Forrest Attending Unavailable Oleghe, Efewongbe Primary Care Unavailable Noe Schroeder Attending Unavailable Oleghe, Efewongbe Primary Care Unavailable Oleghe, Efewongbe Referring Unavailable Oleghe, Efewongbe Attending Unavailable Oleghe, Efewongbe Primary Care Unavailable Oleghe, Efewongbe Referring Unavailable Adi Galo Attending Unavailable Oleghe, Efewongbe Primary Care Unavailable Vonda Mueller Attending Unavailable Oleghe, Efewongbe Referring Unavailable ChinoGhada gallegos Attending Unavailable Oleghe, Efewongbe Referring Unavailable Oleghe, Efewongbe Primary Care Unavailable Dr. Noe Schroeder DO Attending Provider Manolo Quintero Attending Provider Medications Current Medications Medication Drug Class(es) Dates Sig (Normalized) Sig (Original) [id number] 200 actuat albuterol 0.09 mg/actuat metered dose [...] EVERY 6 HOURS 8.5 January 23, 2021 1:48pm July 15, 2021 11:06am Start: 01-23-2021 End: 07-15-2021 Albuterol Sulfate 90 mcg/act uation HFA aerosol inhaler Discontinued 1 NMA INHALATION EVERY 6 HOURS as needed for shortness of breath or wheezing 8.5 0 January 23, 2021 1:00am July 15, 2021 11:06am Start: 01-23-2021 End: 07-15-2021 take 1 puff(s) by inhalation every six hours Albuterol Sulfate Discontinued 1 PUFF INHALATION EVERY 6 HOURS 8.5 January 23, 2021 1:00am July 15, 2021 11:06am amoxicillin 875 mg oral tablet (8 sources) Penicillin-class Antibacterial Start: 06-20-2024 take 1 tablet by mouth twice daily Amoxicillin 875 mg tablet Active 875 mg PO TWICE A DAY June 20, 2024 12:00am brompheniramine maleate 0.4 mg/ml / dextromethorphan hydrobromide 2 mg/ml / pseudoephedrine hydrochloride 6 mg/ml oral solution (1 source) alpha-Adrenergic Agonist, Uncompetitive C-xfucxh-W-aspartat e Receptor Antagonist, Sigma-1 Agonist Start: 03-29-2024 End: 04-08-2024 take 5 mL by mouth four times daily as needed for cough brompheniramine-ps eudoeph-DM 2-30-10 mg/5 mL syrup Indications: Influenza A Take 5 mL by mouth 4 times a day as needed for congestion or cough for up to 10 days. 120 mL 03/29/2024 04/08/2024 Active cetirizine hydrochloride 10 mg oral capsule (1 source) Histamine-1 Receptor Antagonist Start: 09-09-2024 take 1 capsule by mouth once daily Cetirizine 10 mg capsule Active 10 mg PO DAILY September 09, 2024 12:00am Seasonal allergies cholecalciferol 0.05 mg oral tablet (11 sources) Vitamin D Start: 03-31-2024 Cholecalciferol (Vitamin [...] December 11, 2023 8:20am 84 hr estradiol 0.37109 mg/hr transdermal system (20 sources) Estrogen Start: [...] number: 1 metroNIDAZOLE 0.01 mg/mg topical gel (10 sources) Nitroimidazole Antimicrobial Start: 04-26-19 Metronidazole 1 % gel Active TOPICAL April 25, 2024 12:00am Perioral detmatitis Mononessa 0.25 mg-35 mcg oral tablet (1 source) Start: 11-24-19 take 1 tablet by mouth once daily Mononessa 0.25 mg-35 mcg oral tablet Dose = 1 tab(s), Oral, qDay, # 84 tab(s), 3 Refill(s) Start Date: 11/23/18 Status: Ordered Quantity: 84.0 Unit: tab(s) Repeat number: 1 multivit,thx,calcium, iron,mins (MULTIVITAMIN AND MINERAL ORAL) (3 sources) multivit,thx,royal cium ,iron,mins (MULTIVITAMIN AND MINERAL ORAL) Take by mouth. Active Multivitamin preparation (19 sources) Start: 02-16-19 take 1 tablet by mouth once daily [...] Active rosuvastatin calcium 10 mg oral tablet (4 sources) HMG-CoA Reductase Inhibitor Start: 5 take 5 mg by mouth once daily Rosuvastatin 10 mg tablet Active 5 mg PO DAILY July 19, 2024 12:00am Vitamin B Complex tablet (10 sources) Start: 5 take 1 tablet by [...] daily. 11/06/2023 Discontinued take 1 capsule by [facility] once daily vitamin E 400 intl units oral capsule ; 1 cap(s) orally once a day Quantity: 0 Refills: 0 Ordered: 19-Jan-2021 Tracey Lino Generic Substitution Allowed Comment on above: Take 400 Units by [facility] once daily. vitamin E mixed/tocotrienol (VITAMIN E [...] TIMES A DAY as needed for cough 20 0 October 06, 2023 12:00am December 08, 2023 1:29pm Start: 01-23-2021 End: 07-01-2021 take 1 capsule by mouth twice daily as needed for cough Benzonatate 100 mg capsule Discontinued 100 mg PO TWICE A DAY as needed for cough 30 January 23, 2021 1:00am July 01, 2021 [...] take 1 tablet by mouth twice daily [id number]-hgfzmvh D3 500 mg(1,250mg) -200 unit per tablet [...] a day cephalexin 500 mg oral capsule (14 sources) Cephalosporin Antibacterial Start: 02-03-20 End: 04-28-19 take 1 capsule by mouth twice daily Cephalexin 500 mg capsule Discontinued 500 mg PO TWICE A DAY 14 February 02, 2023 1:00am April 28, 2023 2:37pm ciprofloxacin 500 mg oral tablet (2 sources) Quinolone Antimicrobial Start: 09-04-19 End: 09-10-19 take 1 tablet by mouth twice daily Ciprofloxacin Hcl 500 mg tablet Discontinued 500 mg PO TWICE A DAY 7 September 03, 2024 12:00am September 09, 2024 12:28pm Cranberry Fruit (20 sources) Non-Standardized Food Allergenic Extract, Non-Standardized Plant Allergenic Extract Start: 02-02-20 End: 12-08-19 take 1 capsule by mouth once daily [...] daily 0 Active take 1 tablet by taniya th once daily Cranberry oral tablet ; 1 tab(s) orally once a day Quantity: 0 Refills: 0 Ordered: 19-Jan-2021 Tracey Lino Generic Substitution Allowed Comment on above: Take 2 capsules by m outh once daily. 2 gummies daily drospirenone / Ethinyl Estradiol (15 sources) Progestin, Estrogen Start: End: take 1 tablet by mouth [...] / norgestimate (20 sources) Progestin, Estrogen Start: End: 3 take 1 tablet by mouth [...] daily norgestimate 0.25 mg-ethinyl estradiol 35 mcg (BLADIMIR) 0.25-35 mg-mcg per tablet Indications: Premature ovarian [...] mg by mouth once daily. Ginkgo Biloba [place] Extract (17 sources) Start: 03-26-2020 End: 08-29-2020 Ginkgo Biloba [place] Extract Discontinued 60 MG PO March 26, 2020 11:51am August 29, 2020 9:36am Start: 03-26-2020 End: 08-29-2020 Ginkgo Biloba [place] Extract 6 0 MG tablet Discontinued 60 mg PO March 26, 2020 1:00am August 29, 2020 9:36am Start: 03-26-2020 End: 08-29-2020 Ginkgo Biloba [place] Extract 6 0 MG tablet Discontinued 60 mg PO March 26, 2020 12:00am August 29, 2020 8:36am Start: 03-26-2020 End: 08-29-2020 Ginkgo Biloba [place] Extract D iscontinued 60 MG PO March 26, 2020 1:00am August 29, 2020 9:36am Start: 03-26-2020 End: 08-29-2020 Ginkgo Biloba [place] Extract D iscontinued 60 MG PO March [...] 12/17/2023 Discontinued methylPREDNISolone 4 mg oral tablet (11 sources) Corticosteroid Start: 10-06-2023 End: 12-08-2023 take 1 tablet by mouth once Methylprednisolone (Medrol (Kip)) 4 mg tablets,dose pack Discontinued 0 PO per package directions 21 October 06, 2023 12:00am December 08, 2023 1:30pm PO PER PKG DIR metoprolol tartrate 50 mg oral tablet (11 sources) beta-Adrenergic Alber Start: 01-15-2024 End: 03-31-2024 take 1 tablet by mouth once Metoprolol Tartrate 50 mg tablet Discontinued 50 mg PO ONCE 1 0 January 15, 2024 1:00am March 31, 2024 [...] daily naltrexone hydrochloride 50 mg oral tablet (19 sources) Opioid Antagonist Start: End: take 1 [...] 0 Active naproxen 375 mg oral tablet (11 sources) Nonsteroidal Anti-inflammatory Drug Start: 04-04-2024 End: 04-25-2024 take 1 tablet by mouth twice daily at mealtime Naproxen 375 mg tablet Discontinued 375 mg PO TWICE A DAY 14 0 April 04, 2024 1:00am April 25, 2024 1:06pm Take with food and lots of water nitrofurantoin, macrocrystals 25 mg / nitrofurantoin, monohydrate 75 mg oral capsule (20 sources) Nitrofuran Antibacterial Start: 11-30-2023 End: 12-05-2023 take 1 capsule by mouth every twelve hours at mealtime Nitrofurantoin Monohyd/M-Cryst (Macrobid) 100 mg capsule Discontinued 100 mg PO Q12H 10 5 0 November 30, 2023 12:00am December 04, 2023 12:00am December 05, 2023 12:14am must administer with a meal/food Start: 12-17-2022 End: 12-24-2022 take 1 capsule by mouth every twelve hours at mealtime Nitrofurantoin Monohyd/M-Cryst 100 mg capsule Discontinued 1 NMA PO Q12H 14 7 0 December 17, 2022 1:00am December 23, 2022 [...] 2.5 mg. predniSONE 20 mg oral tablet (11 sources) Start: 03-31-2024 End: 04-04-2024 take 3 tablets by mouth once daily Prednisone 20 mg tablet Discontinued 60 mg PO DAILY 15 0 March 31, 2024 1:00am April 04, 2024 10:13am sennosides, nursing home 8.6 mg oral tablet (13 sources) Start: [...] Vitamin B Complex (B Complex-Vitamin B12) tablet (17 sources) Start: 02-16-2019 End: 02-25-2019 take 1 [...] aily. zinc gluconate 50 mg oral tablet (15 sources) Start: 11-03-2022 End: 12-08-2023 take 1 [...] unspecified] Onset: 11-06-2023 Chronic Comment on above: [address] [facility] - 11/27 Biliary tract disease (15 sources) Cholangiectasis; 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] Onset: 07-05-2024 06-29-2024 Chronic Blindness and vision defects (17 sources) Disorder of vision; Translations: [Unspecified visual loss] 03-28-2019 Chronic Cardiac dysrhythmias (20 sources) Palpitations; Translations: [Palpitations] Onset: 11-06-2023 Episodic Coagulation and hemorrhagic disorders (18 sources) Thrombocytopenic disorder; Translations: [Thrombocytopenia, unspecified] Onset: 11-09-2023 11-09-2023 Chronic Complications of surgical procedures or medical care (1 source) Postsurgical menopause; Translations: [Asymptomatic postprocedural ovarian failure] 05-20-2024 Chronic Contraceptive and procreative management (1 source) Oral contraception; Translations: [Encounter for surveillance of contraceptive pills] 05-19-2023 Episodic Diabetes mellitus without complication (18 sources) Hyperglycemia; Translations: [Hyperglycemia, unspecified] 07-01-2021 Episodic [...] (20 sources) Nonalcoholic steatohepatitis; Translations: [Nonalcoholic steatohepatitis (VALERA)] Onset: 02-15-2024 12-31-2023 Chronic Immunizations and screening [...] irregular cycle] Onset: 06-26-2023 Chronic Mood disorders (11 sources) Depressive disorder; Translations: [Depression] 12-08-2023 Chronic Mood disorders (1 source) Mood disorders; Translations: [Depression, unspecified] Onset: 12-08-2023 Noninfectious gastroenteritis (20 sources) Noninfectious gastroenteritis; Translations: [Noninfective gastroenteritis and colitis, unspecified] Onset: 08-28-2023 11-06-2023 Episodic Nonspecific chest pain (20 sources) Chest pain; Translations: [Chest pain, unspecified] Onset: 02-18-2024 Episodic Nutritional deficiencies (17 sources) Vitamin deficiency; Translations: [Vitamin deficiency, unspecified] 03-28-2019 Episodic Open wounds of extremities (2 sources) Puncture wound of right foot; Translations: [Puncture wound without foreign body, right foot, initial encounter] 09-03-2024 Episodic Other aftercare (1 source) Surgical follow-up; Translations: [Encounter for follow-up examination after completed treatment for conditions other than malignant neoplasm] 11-24-2023 Episodic Other aftercare (1 source) Encounter for adjustment and management of vascular access device; Translations: [Encounter for adjustment and management of vascular access device] Onset: 07-28-2024 Episodic Other bone disease and musculoskeletal deformities (12 sources) Osteopenia; Translations: [Other specified disorders of bone density and structure, unspecified site] 12-31-2023 Episodic Other bone disease and musculoskeletal deformities (20 sources) Costal chondritis; Translations: [Chondrocostal junction syndrome [Tietze]] 04-04-2024 Episodic Other ear and sense organ disorders (17 sources) Sensation of blocked ear; Translations: [Other specified disorders of left ear] 12-04-2020 Episodic Other endocrine disorders (17 sources) Decreased estradiol level; Translations: [Other specified [...] Onset: 11-09-2023 11-09-2023 Chronic Other liver diseases (8 sources) Drug-induced disorder of liver; 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, unspecified] 07-19-2024 Chronic Other liver diseases (1 source) Fatty (change of) liver, not elsewhere classified; Translations: [Fatty (change of) liver, not elsewhere classified] Onset: 06-29-2024 Chronic Other liver diseases (14 sources) Enzyme level - finding; Translations: [Transaminasemia] 06-29-2024 Episodic Other liver diseases (14 sources) Alkaline phosphatase raised; Translations: [Abnormal levels of other serum enzymes] 06-29-2024 Episodic Other liver diseases (8 sources) Elevated liver enzymes level; Translations: [Abnormal levels of other serum enzymes] 07-19-2024 Episodic Other liver diseases (1 source) Abnormal levels of other serum enzymes; Translations: [Abnormal levels of other serum enzymes] Onset: 07-22-2024 Episodic Other lower respiratory disease (17 sources) Dyspnea on exertion; Translations: [Dyspnea, unspecified] 08-29-2020 Episodic Other lower respiratory disease (1 source) Cough; Translations: [Acute cough] 03-29-2024 Episodic Other nutritional; endocrine; and metabolic disorders (20 sources) Obese class I; Translations: [Obesity, unspecified] Onset: 05-19-2023 05-19-2023 Chronic Other upper respiratory disease (17 sources) Seasonal allergy; Translations: [Other seasonal allergic rhinitis] 03-28-2019 Chronic Other upper respiratory disease (11 sources) Acute bronchospasm; Translations: [Acute bronchospasm] 04-08-2024 Episodic Other upper respiratory infections (17 sources) Posterior rhinorrhea; Translations: [Postnasal drip] 12-04-2020 Episodic Laverne-; endo-; and myocarditis; cardiomyopathy (except that caused by tuberculosis or sexually transmitted disease) (17 sources) Heart valve disorder; Translations: [Endocarditis, valve [...] of mental health and substance abuse codes (17 sources) History of clinical finding in subject; Translations: [Personal history of other mental and behavioral disorders] 03-28-2019 Episodic Spondylosis; intervertebral disc disorders; other back problems (17 sources) Degeneration of cervical intervertebral disc; Translations: [Other cervical disc degeneration, unspecified cervical region] Chronic Spondylosis; intervertebral disc disorders; other back problems (20 sources) Chronic neck pain; Translations: [Cervicalgia] Episodic Suicide and intentional self-inflicted injury (17 sources) Suicidal thoughts; Translations: [Suicidal ideations] 03-28-2019 Episodic Comment on above: Was in [facility] 11/27 Unclassified (2 sources) RIGHT SIDED HEAD PAIN 01-19-2021 Comment on above: RIGHT SIDED HEAD REJI N Unclassified (1 source) APPOINTMENT CANCELLED 10-15-2022 Unclassified (1 source) Acute cough; Translations: [Acute cough] Onset: 03-29-2024 Unclassified (8 sources) G47.33 - Obstructive sleep apnea (adult) (pediatric) Urinary tract infections (20 sources) Urinary tract infectious disease; Translations: [Urinary tract infection, site not specified] Onset: 11-30-2023 03-28-2019 Episodic Past or Other Problems Problem Classification Problem Date Documented Da te Episodic/Chronic Administrative/social admission (2 sources) Education and/or schooling finding; Translations: [Problems related to education and literacy, unspecified] Onset: 2023 2023 Episodic Benign neoplasm of uterus (7 sources) Uterine leiomyoma; Translations: [Leiomyoma of uterus, unspecified] Onset: 06-26-2023 05-19-2023 Episodic Other bone disease and musculoskeletal deformities [...] Unclassified (1 source) Patient encounter status 05-20-2024 Results Test Name Value Interpretation Reference Range Facility Emergency Department Summary on 09-03-2024 Emergency Department Summary [facility] Medical Records Department [address] [place] [address] Emergency Department Summary 09/03/24 MR#: [id number] Acct: [id number] Name: VIOLET HERNANDEZ Rep #: [id number] : 1985 38 From: Zuleyka JOHNSON PCP: Dr. Emily Sanders MD Status:DEP ER Location: ED Patient was seen and examined with physician assistant passenger locomotive engineer Prachi All components of the history and physical confirmed and agreed. History of present illness and physical exam: Patient is a 38-year-old female with a past medical history of NICA, VALERA, osteopenia, anxiety, hyperglycemia, anxiety, depression, hormone deficiency who presents to the emergency department with a chief complaint of stepping on a [place] nail with her right foot. States that she was wearing crocs and the nail went through her croc penetrated her foot. She states that her last tetanus shot was within the last 5 years denies any blood thinner medications. Review of systems: Agreed above Physical exam: Agree with above MDM Patient is a 38-year-old female who presented to the emergency department with a chief complaint of right foot pain after stepping on a [place] nail this afternoon. On the differential diagnosis includes but not limited to puncture wound, retained foreign body. Once workup is obtained reviewed she will be reevaluated. Patient x-ray reviewed by myself by radiology showed no evidence of retained foreign body no other fractures or dislocations noted. Discussed results with the patient and she would like a tetanus shot given her medical history therefore this was updated. She will be placed on oral ciprofloxacin. She was advised to keep a close eye on this and follow-up with her doctor in outpatient setting. She was agreeable to plan all question concerns answered she was discharged home in stable condition. Patient was vies return with worsening symptoms or concerns. Final impression: Right foot puncture wound History of Valera History of anxiety History of depression Disposition: Patient will be home in in stable condition Supervising attending attestation: Noe STRANGE History of Present Illness Chief Complaint: Lower Extremity Injury Narrative Narrative: Patient presenting today with pain to the plantar aspect of her right foot after stepping on a [place] nail this afternoon. She was wearing crocs and the nail penetrated her shoe into her foot, it did not get stuck in her foot. Her tetanus is up-to-date. She is on no blood thinners. She is able to ambulate but reports a lot of tenderness to the area. [facility] Medical History NICA (obstructive sleep apnea) Costochondritis VALERA (nonalcoholic steatohepatitis) Osteopenia Obesity (BMI 30.0-34.9) Abdominal [...] mg PO DAILY 03/31/24 Unknown H istory metronidazole 1 % topical gel topical Perioral detmatitis Unknown History vitamin B complex 1 tab PO QDAY 04/27/24 Unknown His tory amoxicillin 875 mg tablet 875 mg PO BID #20 tabs 06/20/24 Un known Rx rosuvastatin 10 mg tablet 5 mg (1/2 x 10 mg) PO DAILY 1 07/10 Unknown Rx month #30 tabs ciprofloxacin HCl 500 mg tablet 500 mg PO BID #7 TABLETS 09/03/24 Unknown Rx Allergy/AdvReac Type Severity Reaction Status Date / Time No Known Allergies Allergy Verified 09/03/24 14:57 Family History ... Normal [facility] Foot min 3 Viewson Foot min 3 Views [facility] Imaging Services [address] [place], [place] [address] Foot min 3 Views MR#: [id number] Acct: [id number] Name: VIOLET HERNANDEZ Rep #: [id number] : 1985 F 38 From: Nash Mcdonough MD PCP: Dr. Emily Sanders MD Status: REG ER Study: Foot min 3 Views Date of Exam: 09/03/24 Exam# [id number] Ordering Dr: Zuleyka Lopez PROCEDURE: FOOT MIN 3 VIEWS 09/03/2024 REASON FOR EXAM: PAIN TECHNIQUE: FOOT MIN 3 VIEWS COMPARISON: None. FINDINGS: Bones: No acute bony abnormalities. Joints: No dislocations. Soft tissues: No soft tissue abnormalities. RAD/Foot min 3 Views IMPRESSION: No acute osseous abnormalities. Reading Location: [facility] CC: Dr. Emily Sanders MD; ELIZABETH Argueta Exchange Teller: Signed Normal [facility] Absolute lymphocyte countOrd ered By: Gene Braun on 07-28-2024 Lymphocytes Auto (Unsp spec) [#/Vol] 0.66 10*3/uL Low 0.83-4.51 [facility] Absolute neutrophil countOrd ered By: Gene Braun on 07-28-2024 Neutrophils (Bld) [#/Vol] 1.6 10*3/uL Low 2.0-7.7 [facility] Automated lymphocyte count a s percentage of total leukocytesOrdered By: Gene Braun on 07-28-2024 Lymphocytes/100 WBC Auto (Unsp spec) 23.7 % - [facility] Basophil percentageOrdered B y: Gene Braun on 07-28-2024 Basophils/100 WBC (Bld) 0.7 % 0-1 [facility] CBC W/Diff, Automatedon 07-10 Absolute Lymph 0.66 X10 3/uL Low 0.83-4.51 [facility] Comment on above: Performed By: #### L 100.0100 #### [facility] [address] [place], [address] Absolute Neut 1.6 X10 3/uL Low 2.0-7.7 [facility] Comment on above: Performed By: #### L 100.0100 #### [facility] [address] [place], [address] Basophils/100 WBC (Bld) 0.7 % Normal 0-1 [facility] Comment on above: Performed By: #### L 100.0100 #### [facility] [address] [place], [address] Eosinophils/100 WBC (Bld) 2.9 % Normal 0-5 [facility] Comment on above: Performed By: #### L 100.0100 #### [facility] [address] [place], [address] Erythrocyte distribution width (RBC) [Ratio] 13.4 % Normal 11.6-14.6 [facility] Comment on above: Performed By: #### L 100.0100 #### [facility] [address] [place], [address] Hematocrit (Bld) [Volume fraction] 38.7 % Normal 37-47 [facility] Comment on above: Performed By: #### L 100.0100 #### [facility] [address] [place], [address] Hemoglobin (Bld) [Mass/Vol] 13.4 g/dL Normal 12.0-15.0 [facility] Comment on above: Performed By: #### L 100.0100 #### [facility] [address] [place], [address] IG% 0.000 Normal 0.0-0.9 [facility] Comment on above: Result Comment: IG% - Immature Granulocytes (promyelocytes, myelocytes and metamyelocytes) > 1% indicates that a LEFT SHIFT is Present. Performed By: #### L 100.0100 #### [facility] [address] [place], [address] Lymphocytes/100 WBC (Bld) 23.7 % Normal 19-41 [facility] Comment on above: Performed By: #### L 100.0100 #### [facility] [address] [place], [address] MCH (RBC) [Entitic mass] 34.4 pg High 27.0-32.0 [facility] Comment on above: Performed By: #### L 100.0100 #### [facility] [address] [place], [address] MCHC (RBC) [Mass/Vol] 34.6 g/dL Normal 32-36 [facility] Comment on above: Performed By: #### L 100.0100 #### [facility] [address] [place], [address] MCV (RBC) [Entitic vol] 99.2 fL High 81-99 [facility] Comment on above: Performed By: #### L 100.0100 #### [facility] [address] [place], [address] Monocytes/100 WBC (Bld) 14.7 % High 0-10 [facility] Comment on above: Performed By: #### L 100.0100 #### [facility] [address] [place], [address] Neutrophils/100 WBC (Bld) 58.0 % Normal 47-70 [facility] Comment on above: Performed By: #### L 100.0100 #### [facility] [address] [place], [address] Nucleated RBC (Bld) [#/Vol] 0 10*3/uL Normal 0-5 [facility] Comment on above: Performed By: #### L 100.0100 #### [facility] [address] [place], [address] Platelet mean volume (Bld) [Entitic vol] 10.4 fL Normal 6.2-12.0 [facility] Comment on above: Performed By: #### L 100.0100 #### [facility] [address] [place], [address] Platelets (Bld) [#/Vol] 158 10*3/uL Normal 150-450 [facility] Comment on above: Performed By: #### L 100.0100 #### [facility] [address] [place], [address] RBC (Bld) [#/Vol] 3.90 10*6/uL Low 4.2-5.4 [facility] Comment on above: Performed By: #### L 100.0100 #### [facility] [address] [place], [address] RDW SD 48.8 fl High 35.1-43.9 [facility] Comment on above: Performed By: #### L 100.0100 #### [facility] [address] [place], [address] WBC (Bld) [#/Vol] 2.8 10*3/uL Low 4.4-11.0 [facility] Comment on above: Performed By: #### L 100.0100 #### [facility] [address] [place], [address] Eosinophil percentageOrdered By: Gene Braun on 07-28-2024 Eosinophils/100 WBC (Bld) 2.9 % 0-5 [facility] Erythrocyte distribution wid th ratioOrdered By: Gene Braun on 07-28-2024 Erythrocyte distribution width (RBC) [Ratio] 13.4 % 11.6-14.6 [facility] Erythrocyte distribution wid th standard deviationOrdered By: Gene Braun on 07-28-2024 Erythrocyte distribution width (RBC) [Ratio] 48.8 fl High 35.1-43.9 [facility] Hematocrit Auto (Bld) [Volum e fraction]Ordered By: Gene Braun on 07-28-2024 Hematocrit (Bld) [Volume fraction] 38.7 % 37-47 [facility] Hemoglobin measurementOrdere d By: Gene Braun on 07-28-2024 Hemoglobin (Bld) [Mass/Vol] 13.4 g/dL 12.0-15.0 [facility] Immature granulocytes/100 WB C Auto (Bld)Ordered By: Gene Braun on 07-28-2024 Immature granulocytes/100 WBC (Bld) 0.000 % 0.0-0.9 [facility] Comment on above: IG% - Immature Granu locytes (promyelocytes, myelocytes and metamyelocytes) > 1% indicates that a LEFT SHIFT is Present. MCV (mean corpuscular volume ) determinationOrdered By: Gene Braun on 07-28-2024 MCV (RBC) [Entitic vol] 99.2 fL High 81-99 [facility] Mean corpuscular hemoglobin (MCH) determinationOrdered By: Gene Braun on 07-28-2024 MCH (RBC) [Entitic mass] 34.4 pg High 27.0-32.0 [facility] Mean corpuscular hemoglobin concentration (MCHC) determinationOrdered By: Gene Braun on 07-28-2024 MCHC (RBC) [Mass/Vol] 34.6 g/dL 32-36 [facility] Mean platelet volume determi nationOrdered By: Gene Braun on 07-28-2024 Platelet mean volume (Bld) [Entitic vol] 10.4 fL 6.2-12.0 [facility] Monocyte percentageOrdered B y: Gene Braun on 07-28-2024 Monocytes/100 WBC (Bld) 14.7 % High 0-10 [facility] Neutrophil percentageOrdered By: Gene Braun on 07-28-2024 Neutrophils/100 WBC (Bld) 58.0 % 47-70 [facility] Nucleated red blood cell per centageOrdered By: Gene Braun on 07-28-2024 Nucleated RBC/100 WBC (Bld) [Ratio] 0 % 0-5 [facility] Oncology Visit Reporton 07-10 Oncology Visit Report [facility] [place] [address] OFFICE VISIT Date of Service: 07/28/24 1144 MR#: [id number] Acct: [id number] Name: VIOLET HERNANDEZ Rep #: [id number] : 1985 From: Gene Braun MD Age/Sex: 38/F Location: [facility] Status: Signed HPI Subjective Date of Service 07/28/24 Chief Complaint F/u for Leukopenia. 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 Had bone marrow biopsy done at that time which was negative so stayed on observation. She remained leukopenic, moved to [facility], had another bone marrow biopsy on 01/25/2015. Pathology showed hypocellular marrow with normal cytogenetics and FISH. She moved to [place] and wanted her follow done here at [facility]. She is on observation, had blood work done on 07/23/2024, WBC 2.2 so comes for follow up. Feels well. [facility] Medical History NICA (obstructive sleep apnea) Costochondritis VALERA (nonalcoholic steatohepatitis) Osteopenia Obesity (BMI 30.0-34.9) Abdominal [...] mg (1/2 x 10 mg) PO DAILY 07/1007/28/24 Rx month #30 tabs Central Venous [...] count, unspecified (more content not included)... Normal [facility] Platelet countOrdered By: Erin Braun on 07-28-2024 Platelets (Bld) [#/Vol] 158 10*3/uL 150-450 [facility] RBC Auto (Bld) [#/Vol]Ordere d By: Gene Braun on 07-28-2024 RBC (Bld) [#/Vol] 3.90 10*6/uL Low 4.2-5.4 [facility] White blood cell (WBC) count Ordered By: Gene Braun on 07-28-2024 WBC (Bld) [#/Vol] 2.8 10*3/uL Low 4.4-11.0 [facility] Gastroenterology Visit Repor ton 07-19-2024 Gastroenterology Visit Report [facility] [address] [place] [address] OFFICE VISIT Date of Service: 07/19/24 MR#: [id number] Acct: [id number] Name: VIOLET HERNANDEZ Rep #: [id number] : 1985 Provider: Dr. Gulshan armendariz MD Age/Sex: 38/F Location: [facility] Status: Signed with Addenda ADDENDUM by Dr. [...] Medical History NICA (obstructive sleep apnea) Costochondritis VALERA (nonalcoholic steatohepatitis) Osteopenia Obesity (BMI 30.0-34.9) Abdominal [...] the office today for hepatology consult for VALERA. .12.03 Fib-4 1.12 US abd/ elastography 5.19.25- Liver measures 14.4 cm, Stiffness 6.8 kPa, CBD Dilated measuring up to 8.8 mm MRCP- ..25- The common bile duct measures 3-4 mm in diameter, No biliary dilatation and no evidence for choledocholithiasis. 07/19/2024: Follow-up for MASLD/MASH. Had MRCP after last office visit. No abdominal pain, nausea, vomiting leg swelling or GI bleed. Has chronic thrombocytopenia/bone marrow disorder since 2008 [address]. Braun. Had 2 bone marrow biopsy. [...] Orientation: alert, (more content not included)... Normal [facility] L501.5101on 07-15-2024 GGTP 103 IU/L Abnormal 0-60 [facility] Comment on above: Result Comment: Perf ormed at: CB - [facility] [id number] [place], [place] [id number] Director Of Community Center: Jorgito Cunningham PhD, Phone: [phone] Performed By: #### L 500.2723, N933.6465, L501.9930, L548.2919, L503.4136 ####[facility] [address] [place], [address] MRI MRCPon 07-15-2024 MRI MRCP ORIGINAL EXAMINATION: [...] and no evidence for choledocholithiasis. Interpreted by: Thoa Mijares MD Preliminary Report By: Thao Mijares MD Electronically signed By Thao Mijares MD Dictated Date: 07/15/2024 4:25:56 PM Prelim Date: 07/15/2024 4:28:26 PM Sign Date: 07/15/2024 4:28:26 PM Ordering Provider: VONDA MUELLER [facility] Bilirubin directOrdered By: Vonda Mueller on 07-14-2024 Bilirubin.direct [Mass/Vol] 0.15 mg/dL 0.00-0.30 [facility] Bilirubin, totalOrdered By: Vonda Mueller on 07-14-2024 Bilirubin [Mass/Vol] 0.34 mg/dL 0.00-1.30 [facility] Gamma glutamyl transferase ( GGT) measurementOrdered By: Vonda Mueller on 07-14-2024 Amylase [Catalytic activity/Vol] 103 U/L High 0-60 [facility] Comment on above: Performed at: - [address] [id number] Director: Jorgito Cunningham PhD, Phone: [phone] Iron measurement (mass/mass) Ordered By: Vonda Mueller on 07-14-2024 Iron (Unsp spec) [Mass/Mass] 119 ug/dL 50-170 [facility] Iron+Iron Binding Capacityon 07-14-2024 Iron [Mass/Vol] 119 ug/dL Normal 50-170 [facility] Comment on above: Performed By: #### L 500.3400, L501.5101, L501.5200, L503.6030, L503.0106 ####[facility] [address] [place], [address] IRON SATURATION 34.0 Normal 13-59 [facility] Comment on above: Performed By: #### L 500.3400, L501.5101, L501.5200, L503.6030, L503.0106 ####[facility] [address] [place], [address] TIBC 347 ug/dL Normal 250-450 [facility] Comment on above: Performed By: #### L 500.3400, L501.5101, L501.5200, L503.6030, L503.0106 ####[facility] [address] [place], [address] UIBC 228 ug/dL Normal 228-428 [facility] Comment on above: Performed By: #### L 500.3400, L501.5101, L501.5200, L503.6030, L503.0106 ####[facility] [address] [place], [address] Laboratory - Chemistry and C hemistry - challengeOrdered By: Vonda Mueller on 07-14-2024 AST [Catalytic activity/Vol] 38 U/L High <32 [facility] Liver Profileon 07-14-2024 Albumin [Mass/Vol] 4.6 g/dL Normal 3.5-5.0 [facility] Comment on above: Performed By: #### L 500.3400, L501.5101, L501.5200, L503.6030, L503.0106 #### [facility] [address] [place], [address] ALK PHOS 100 U/L Normal 35-104 [facility] Comment on above: Performed By: #### L 500.3400, L501.5101, L501.5200, L503.6030, L503.0106 #### [facility] [address] [place], [address] ALT [Catalytic activity/Vol] 61 U/L High <=34 [facility] Comment on above: Performed By: #### L 500.3400, L501.5101, L501.5200, L503.6030, L503.0106 #### [facility] [address] [place], [address] AST [Catalytic activity/Vol] 38 U/L High <=31 [facility] Comment on above: Performed By: #### L 500.3400, L501.5101, L501.5200, L503.6030, L503.0106 #### [facility] [address] [place], [address] Bilirubin [Mass/Vol] 0.34 mg/dL Normal 0.00-1.30 [facility] Comment on above: Performed By: #### L 500.3400, L501.5101, L501.5200, L503.6030, L503.0106 #### [facility] [address] [place], [address] Bilirubin.direct [Mass/Vol] 0.15 mg/dL Normal 0.00-0.30 [facility] Comment on above: Performed By: #### L 500.3400, L501.5101, L501.5200, L503.6030, L503.0106 #### [facility] [address] [place], [address] Globulin (S) [Mass/Vol] 2.3 g/dL Normal 2.2-4.2 [facility] Comment on above: Performed By: #### L 500.3400, L501.5101, L501.5200, L503.6030, L503.0106 #### [facility] [address] [place], [address] T PROT 6.9 g/dL Normal 5.9-8.4 [facility] Comment on above: Performed By: #### L 500.3400, L501.5101, L501.5200, L503.6030, L503.0106 #### [facility] [address] [place], [address] Magnesiumon 07-14-2024 Magnesium [Mass/Vol] 2.1 mg/dL Normal 1.5-2.2 [facility] Comment on above: Performed By: #### L 500.3400, L501.5101, L501.5200, L503.6030, L503.0106 ####[facility] [address] [place], [address] Magnesium measurement (mass/ volume)Ordered By: Vonda Mueller on 07-14-2024 Magnesium (Unsp spec) [Mass/Vol] 2.1 mg/dL 1.5-2.2 [facility] No Panel InformationOrdered By: Vonda Mueller on 07-14-2024 Unsaturated Iron Binding Capacity 228 ug/dL 228-428 [facility] Serum globulin measurementOr dered By: Vonda Mueller on 07-14-2024 Globulin (S) [Mass/Vol] 2.3 g/dL 2.2-4.2 [facility] Serum or plasma alanine valencia otransferase (ALT) measurementOrdered By: Vonda Mueller on 07-14-2024 ALT [Catalytic activity/Vol] 61 U/L High <35 [facility] Serum or plasma albumin ana maria urement (mass/volume)Ordered By: Vonda Mueller on 07-14-2024 Albumin [Mass/Vol] 4.6 g/dL 3.5-5.0 [facility] Serum or plasma alkaline juana sphatase measurementOrdered By: Vonda Mueller on 07-14-2024 ALP [Catalytic activity/Vol] 100 U/L 35-104 [facility] Serum or plasma iron saturat ion measurement (mass fraction)Ordered By: Vonda Mueller on 07-14-2024 Iron saturation [Mass fraction] 34.0 % 13-59 [facility] Total proteinOrdered By: Brenda Mueller on 07-14-2024 Protein [Mass/Vol] 6.9 g/dL 5.9-8.4 [facility] Vitamin B12on 07-14-2024 Cobalamin (Vitamin B12) [Mass/Vol] 879 pg/mL Normal 180-914 [facility] Comment on above: Performed By: #### L 500.3400, L501.5101, L501.5200, L503.6030, L503.0106 ####[facility] [address] [place], [address] Vitamin B12 ser/plasOrdered By: Vodna Mueller on 07-14-2024 Cobalamin (Vitamin B12) [Mass/Vol] 879 pg/mL 180-914 [facility] L3410.9992on 07-07-2024 [facility] Misc. COMMENT Normal . [facility] Comment on above: Order Comment: 'TROP ' Serial specimen #1, #2 or #3: 1 Result Comment: Test Ordered: [id number] Enhanced Liver Fibrosis (ELF) ELF(TM) Score 9.04 BN Reference Range: <9.80 ELF(TM) Score Interpretation: Risk cut-offs to assess the likelihood of progression to cirrhosis and liver-related clinical events within 3.9 years following baseline ELF score (IQR: 14.0-22.4 months)*: Lower risk < 9.80 Mid risk 9.80 - 11.29 Higher risk >11.29 Note: The ELF(TM) Score is a unitless numerical value. *Howard SA, Truman VW, Ana M T, et al. Selonsertib for patients with bridging fibrosis or compensated cirrhosis due to VALERA: Results from randomized phase III STELLAR trials. J Hepatol. 2020 Aug;73(1):26-39. Performed at: - [facility] [id number] Director Of Community Center: Montserrat Gibbons MD, Phone: [phone] Performed at: [facility] [address] [id number] Director Of Community Center: Jorgito Cunningham PhD, Phone: [phone] Performed By: #### L 100.0100, L500.2500, L501.4020 #### [facility] [address] [place], [address] ANCAon 07-01-2024 Atypical pANCA <1:20 Normal Neg:<1:20 [facility] Comment on above: Result Comment: The atypical pANCA pattern has been observed in a significant percentage of patients with ulcerative colitis, primary sclerosing cholangitis and autoimmune hepatitis. Performed By: #### L 100.0100, L500.2500, L501.4020 #### [facility] [address] [place], [address] Cytoplasmic Ab <1:20 Normal Neg:<1:20 [facility] Comment on above: Performed By: #### L 100.0100, L500.2500, L501.4020 #### [facility] [address] [place], [address] Perinuclear Ab. <1:20 Normal Neg:<1:20 [facility] Comment on above: Result Comment: The presence of positive fluorescence exhibiting P-ANCA or C-ANCA patterns alone is not specific for the diagnosis of David's Granulomatosis (WG) or microscopic polyangiitis. Decisions about treatment should not be based solely on ANCA IFA results. The [employer] ANCA [employer] Consensus recommends follow up testing of positive sera with both CO- 3 and MPO-ANCA enzyme immunoassays. As many as 5% serum samples are positive only by EIA. Ref. AM J Clin Pathol 1999;111:507-513. Performed By: #### L 100.0100, L500.2500, L501.4020 #### [facility] [address] [place], [place], [address] Anti-Mitochondrial ABon 06-10 ANTIMITOCHON AB <20.0 Normal 0.0-20.0 [facility] Comment on above: Result Comment: Nega tive 0.0 - 20.0 Equivocal 20.1 - 24.9 Positive >24.9 Mitochondrial (M2) Antibodies are found in 90-96% of patients with primary biliary cirrhosis. Performed at: [facility] [address] [id number] Director Of Community Center: Jorgito Cunningham PhD, Phone: [phone] Performed By: #### L 100.0100, L500.2500, L501.4020 #### [facility] [address] [place], [place], [address] Anti-Smooth Muscle ABSon ANTISMOOTH MUSC 5 Units Normal 0-19 [facility] Comment on above: Result Comment: Nega tive 0 - 19 Weak positive 20 - 30 Moderate to strong positive >30 Actin Antibodies are found in 52-85% of patients with autoimmune hepatitis or chronic active hepatitis and in 22% of patients with primary biliary cirrhosis. Performed By: #### L 100.0100, L500.2500, L501.4020 #### [facility] [address] [place], [place], [address] Hepatitis A AB, Totalon 06-10 HEPATITIS A,TOT Negative Normal Negative [facility] Comment on above: Result Comment: Comm ent: The HAV total antibody assay detects both IgG and IgM but does not differentiate between them. A negative result suggests susceptibility to infection. A positive result could be due to vaccination, previously resolved infection or active infection. Testing for HAV IgM should be performed if active HAV infection is suspected. [employer] offers profiles that will automatically reflex positive HAV total antibody results to IgM (e.g., panel #[id number] HAV Antibody w/ Rfx). Performed at: [address] [id number] Director Of Community Center: Jorgito Cunningham PhD, Phone: [phone] Performed By: #### L 100.0100, L500.2500, L501.4020 #### [facility] [address] [place], [place], [id number] Hepatitis B Core Ab Totalon 07-01-2024 HEP B CORE,TOT Negative Normal Negative [facility] Comment on above: Performed By: #### L 100.0100, L500.2500, L501.4020 #### [facility] [address] [place], [place], [id number] Absolute lymphocyte countOrd ered By: Vonda Mueller on 06-30-2024 Lymphocytes Auto (Unsp spec) [#/Vol] 0.63 10*3/uL Low 0.83-4.51 [facility] Absolute neutrophil countOrd ered By: Vonda Mueller on 06-30-2024 Neutrophils (Bld) [#/Vol] 1.8 10*3/uL Low 2.0-7.7 [facility] Anion gap in Serum or Plasma Ordered By: Vonda Mueller on 06-30-2024 Anion gap [Moles/Vol] 12 mmol/L 5- [facility] Automated lymphocyte count a s percentage of total leukocytesOrdered By: Vonda Mueller on 06-30-2024 Lymphocytes/100 WBC Auto (Unsp spec) 21.4 % - [facility] BUN/creatinine ratioOrdered By: Vonda Mueller on 06-30-2024 Urea nitrogen/Creatinine [Mass ratio] 18.0 mg/mg - [facility] Basic Metabolic Profile (BMP )on 06-30-2024 BUN/CRE 18.0 RATIO Normal - [facility] Comment on above: Performed By: #### L 100.0100, L500.2500, L501.4020 #### [facility] [address] [place], [address] Calcium [Mass/Vol] 9.4 mg/dL Normal 7.6-11.0 [facility] Comment on above: Performed By: #### L 100.0100, L500.2500, L501.4020 #### [facility] [address] [place], [address] Chloride [Moles/Vol] 102 mmol/L Normal 98-108 [facility] Comment on above: Performed By: #### L 100.0100, L500.2500, L501.4020 #### [facility] [address] [place], [address] CO2 [Moles/Vol] 25.4 mmol/L Normal 21.0-32.0 [facility] Comment on above: Performed By: #### L 100.0100, L500.2500, L501.4020 #### [facility] [address] [place], [address] Creatinine [Mass/Vol] 0.87 mg/dL Normal 0.70-1.20 [facility] Comment on above: Performed By: #### L 100.0100, L500.2500, L501.4020 #### [facility] [address] [place], [address] GAP 12 Normal 5-15 [facility] Comment on above: Performed By: #### L 100.0100, L500.2500, L501.4020 #### [facility] [address] [place], [address] GFR/1.73 sq M.predicted among non-blacks MDRD (S/P/Bld) [Vol rate/Area] 87 mL/min/{1.73_m2} Normal >60 [facility] Comment on above: Result Comment: mL/m in/1.73m2 CKD-EPI Creatinine Equation (2020) Performed By: #### L 100.0100, L500.2500, L501.4020 #### [facility] [address] [place], [address] Glucose [Mass/Vol] 100 mg/dL High 70-99 [facility] Comment on above: Performed By: #### L 100.0100, L500.2500, L501.4020 #### [facility] [address] [place], [address] Potassium [Moles/Vol] 4.2 mmol/L Normal 3.3-5.1 [facility] Comment on above: Performed By: #### L 100.0100, L500.2500, L501.4020 #### [facility] [address] [place], [address] Sodium [Moles/Vol] 139 mmol/L Normal 133-145 [facility] Comment on above: Performed By: #### L 100.0100, L500.2500, L501.4020 #### [facility] [address] [place], [address] Urea nitrogen [Mass/Vol] 16 mg/dL Normal 4-19 [facility] Comment on above: Performed By: #### L 100.0100, L500.2500, L501.4020 #### [facility] [address] [place], [address] Basophil percentageOrdered B y: Vonda Mueller on 06-30-2024 Basophils/100 WBC (Bld) 0.7 % 0-1 [facility] CBC W/Diff, Automatedon - Absolute Lymph 0.63 X10 3/uL Low 0.83-4.51 [facility] Comment on above: Performed By: #### L 100.0100, L500.2500, L501.4020 #### [facility] [address] [place], [address] Absolute Neut 1.8 X10 3/uL Low 2.0-7.7 [facility] Comment on above: Performed By: #### L 100.0100, L500.2500, L501.4020 #### [facility] [address] [place], [address] Basophils/100 WBC (Bld) 0.7 % Normal 0-1 [facility] Comment on above: Performed By: #### L 100.0100, L500.2500, L501.4020 #### [facility] [address] [place], [address] Eosinophils/100 WBC (Bld) 3.4 % Normal 0-5 [facility] Comment on above: Performed By: #### L 100.0100, L500.2500, L501.4020 #### [facility] [address] [place], [address] Erythrocyte distribution width (RBC) [Ratio] 13.3 % Normal 11.6-14.6 [facility] Comment on above: Performed By: #### L 100.0100, L500.2500, L501.4020 #### [facility] [address] [place], [address] Hematocrit (Bld) [Volume fraction] 39.9 % Normal 37-47 [facility] Comment on above: Performed By: #### L 100.0100, L500.2500, L501.4020 #### [facility] [address] [place], [address] Hemoglobin (Bld) [Mass/Vol] 13.8 g/dL Normal 12.0-15.0 [facility] Comment on above: Performed By: #### L 100.0100, L500.2500, L501.4020 #### [facility] [address] [place], [address] IG% 0.300 Normal 0.0-0.9 [facility] Comment on above: Result Comment: IG% - Immature Granulocytes (promyelocytes, myelocytes and metamyelocytes) > 1% indicates that a LEFT SHIFT is Present. Performed By: #### L 100.0100, L500.2500, L501.4020 #### [facility] [address] [place], [address] Lymphocytes/100 WBC (Bld) 21.4 % Normal 19-41 [facility] Comment on above: Performed By: #### L 100.0100, L500.2500, L501.4020 #### [facility] [address] [place], [address] MCH (RBC) [Entitic mass] 34.9 pg High 27.0-32.0 [facility] Comment on above: Performed By: #### L 100.0100, L500.2500, L501.4020 #### [facility] [address] [place], [address] MCHC (RBC) [Mass/Vol] 34.6 g/dL Normal 32-36 [facility] Comment on above: Performed By: #### L 100.0100, L500.2500, L501.4020 #### [facility] [address] [place], [address] MCV (RBC) [Entitic vol] 101.0 fL High 81-99 [facility] Comment on above: Performed By: #### L 100.0100, L500.2500, L501.4020 #### [facility] [address] [place], [address] Monocytes/100 WBC (Bld) 12.9 % High 0-10 [facility] Comment on above: Performed By: #### L 100.0100, L500.2500, L501.4020 #### [facility] [address] [place], [address] Neutrophils/100 WBC (Bld) 61.3 % Normal 47-70 [facility] Comment on above: Performed By: #### L 100.0100, L500.2500, L501.4020 #### [facility] [address] [place], [address] Nucleated RBC (Bld) [#/Vol] 0 10*3/uL Normal 0-5 [facility] Comment on above: Performed By: #### L 100.0100, L500.2500, L501.4020 #### [facility] [address] [place], [address] Platelet mean volume (Bld) [Entitic vol] 10.4 fL Normal 6.2-12.0 [facility] Comment on above: Performed By: #### L 100.0100, L500.2500, L501.4020 #### [facility] [address] [place], [address] Platelets (Bld) [#/Vol] 170 10*3/uL Normal 150-450 [facility] Comment on above: Performed By: #### L 100.0100, L500.2500, L501.4020 #### [facility] [address] [place], [address] RBC (Bld) [#/Vol] 3.95 10*6/uL Low 4.2-5.4 [facility] Comment on above: Performed By: #### L 100.0100, L500.2500, L501.4020 #### [facility] [address] [place], [address] RDW SD 49.8 fl High 35.1-43.9 [facility] Comment on above: Performed By: #### L 100.0100, L500.2500, L501.4020 #### [facility] [address] [place], [address] WBC (Bld) [#/Vol] 3.0 10*3/uL Low 4.4-11.0 [facility] Comment on above: Performed By: #### L 100.0100, L500.2500, L501.4020 #### [facility] [address] [place], [address] Calculated very low density lipoprotein (VLDL) cholesterol measurementOrdered By: Vonda Mueller on 06-30-2024 Calculated very low density lipoprotein (VLDL) cholesterol measurement 20 mg/dL 5-40 [facility] Carbon dioxide, total [Moles /volume] in Central venous bloodOrdered By: Vonda Mueller on 06-30-2024 CO2 [Moles/Vol] 25.4 mmol/L 21.0-32.0 [facility] Chloride assayOrdered By: Tye Mueller on 06-30-2024 Chloride [Moles/Vol] 102 mmol/L 98-108 [facility] Eosinophil percentageOrdered By: Vonda Meuller on 06-30-2024 Eosinophils/100 WBC (Bld) 3.4 % 0-5 [facility] Erythrocyte distribution wid th ratioOrdered By: Vonda Mueller on 06-30-2024 Erythrocyte distribution width (RBC) [Ratio] 13.3 % 11.6-14.6 [facility] Erythrocyte distribution wid th standard deviationOrdered By: Vonda Mueller on 06-30-2024 Erythrocyte distribution width (RBC) [Ratio] 49.8 fl High 35.1-43.9 [facility] Ferritinon 06-30-2024 Ferritin [Mass/Vol] 176 ng/mL Normal 22-378 [facility] Comment on above: Performed By: #### L 100.0100, L500.2500, L501.4020 #### [facility] [address] [place], [address] Glomerular filtration rate ( GFR) estimation/1.73 sq m using serum, plasma, or whole bOrdered By: Vonda Mueller on 06-30-2024 GFR/1.73 sq M.predicted among non-blacks MDRD (S/P/Bld) [Vol rate/Area] 87 mL/min/{1.73_m2} >60 [facility] Comment on above: mL/min/1.73m2 CKD-EP I Creatinine Equation (2020) Hematocrit Auto (Bld) [Volum e fraction]Ordered By: Vonda Mueller on 06-30-2024 Hematocrit (Bld) [Volume fraction] 39.9 % 37-47 [facility] Hemoglobin A1con 06-30-2024 HbA1c (Bld) [Mass fraction] 5.2 % Normal <=5.6 [facility] Comment on above: Result Comment: Norm al < 5.7 % Prediabetic 5.7 - 6.4 % Diabetic >or= 6.5 % Please note range changes. Performed By: #### L 100.0100, L500.2500, L501.4020 #### [facility] [address] [place], [place], [id number] Hemoglobin A1c percentageOrd ered By: Vonda Mueller on 06-30-2024 HbA1c (Bld) [Mass fraction] 5.2 % <5.7 [facility] Comment on above: Normal < 5.7 % Predi abetic 5.7 - 6.4 % Diabetic >or= 6.5 % Please note range changes. Hemoglobin measurementOrdere d By: Vonda Mueller on 06-30-2024 Hemoglobin (Bld) [Mass/Vol] 13.8 g/dL 12.0-15.0 [facility] Hepatitis B Surface Antibody on 06-30-2024 HEP B Surf Ab REAC Normal [facility] Comment on above: Result Comment: <8.5 mIU/mL: Non-Reactive 8.5<= x <11.5 mIU/mL: Indeterminate >=11.5 mIU/mL: Reactive Non Reactive: Inconsistent with immunity less than <10 mIU/mL Reactive: Consistent with immunity greater than or equal to 10 mIU/mL Performed By: #### L 100.0100, L500.2500, L501.4020 #### [facility] [address] [place], [place], [address] Hepatitis C Antibodyon 06-30 Hepatitis C Ab Non-Reactive Normal Nonreactive [facility] Comment on above: Result Comment: Reac tive: Presumptive evidence of antibodies to HCV. Follow CDC recommendations for supplemental testing. Non-Reactive: Antibodies to HCV were not detected; does not exclude the possibility of exposure to HCV Reactive Results are presumptive evidence of antibodies to HCV. Follow CDC recommendations for supplemental testing. Order confirmation testing: HCV Quant by PCR testing - HCVPCR #[id number] Non Reactive: < 0.8 Equivocal: >/= 0.8 to < 1.0 Reactive: >/= 1.0 The [facility] requires that a reactive/equivocal HCV antibody result be sent out for confirmation. HCV Quant by PCR testing. Performed By: #### L 100.0100, L500.2500, L501.4020 #### [facility] [address] [place], [address] Immature granulocytes/100 WB C Auto (Bld)Ordered By: Vonda Mueller on 06-30-2024 Immature granulocytes/100 WBC (Bld) 0.300 % 0.0-0.9 [facility] Comment on above: IG% - Immature Granu locytes (promyelocytes, myelocytes and metamyelocytes) > 1% indicates that a LEFT SHIFT is Present. Iron measurement (mass/mass) Ordered By: Vonda Mueller on 06-30-2024 Iron (Unsp spec) [Mass/Mass] 172 ug/dL High 50-170 [facility] Iron+Iron Binding Capacityon 06-30-2024 Iron [Mass/Vol] 172 ug/dL High 50-170 [facility] Comment on above: Performed By: #### L 100.0100, L500.2500, L501.4020 #### [facility] [address] [place], [address] IRON SATURATION 48.0 Normal 13-59 [facility] Comment on above: Performed By: #### L 100.0100, L500.2500, L501.4020 #### [facility] [address] [facility] [place], [address] TIBC 359 ug/dL Normal 250-450 [facility] Comment on above: Performed By: #### L 100.0100, L500.2500, L501.4020 #### [facility] [address] [place], [address] UIBC 187 ug/dL Low 228-428 [facility] Comment on above: Performed By: #### L 100.0100, L500.2500, L501.4020 #### [facility] [address] [place], [address] [id number] 06-30-2024 HEP B Surf Ag Non-Reactive Normal Nonreactive [facility] Comment on above: Result Comment: Reac tive: Presumptive evidence of HBV. Repeatedly reactive samples must be confirmed using a neutralization test ([employer] HBsAg Confirmatory Test) Non-Reactive: HBsAg not detected; does not exclude the possibility of exposure to HBV Performed By: #### L 100.0100, L500.2500, L501.4020 #### [facility] [address] [place], [address] LDL calc ser/plasOrdered By: Vonda Mueller on 06-30-2024 Cholesterol in LDL [Mass/Vol] 121 mg/dL [facility] Comment on above: Lnwzkzkhaz=603-767 m g/dL & Higher Eykf=649 mg/dL or greater Laboratory - Microbiology an d Antimicrobial susceptibilityOrdered By: Vonda Mueller on 06-30-2024 HBV surface Ag Ql (S) Non-Reactive Nonreactive [facility] Comment on above: Reactive: Presumptiv e evidence of HBV. Repeatedly reactive samples must be confirmed using a neutralization test ([employer] HBsAg Confirmatory Test)Non-Reactive: HBsAg not detected; does not exclude the possibility of exposure to HBV Lipid Profileon 06-30-2024 CHOL:HDL 2.95 Normal [facility] Comment on above: Performed By: #### L 100.0100, L500.2500, L501.4020 #### [facility] [address] [place], [address] Cholesterol [Mass/Vol] 214 mg/dL High <=200 [facility] Comment on above: Result Comment: Chol esterol level, Desirable <200 mg/dL Borderline high cholesterol 200-239 mg/dL High cholesterol >=240 mg/dL Recommendations of the NCEP Adult Treatment Panel for the following risk-cutoff thresholds for the [place] population. Performed By: #### L 100.0100, L500.2500, L501.4020 #### [facility] [address] [place], [address] Cholesterol in HDL [Mass/Vol] 73 mg/dL Normal [facility] Comment on above: Result Comment: Aria onal Cholesterol Education Program (NCEP) guidelines: <40 mg/dL: Low HDL-cholesterol (major risk factor for CHD) >= 60 mg/dL: High HDL-cholesterol (negative risk factor for CHD) HDL-cholesterol is affected by a number of factors, e.g. smoking, exercise, hormones, sex and age. Performed By: #### L 100.0100, L500.2500, L501.4020 #### [facility] [address] [place], [address] Cholesterol in LDL [Mass/Vol] 121 mg/dL Normal [facility] Comment on above: Result Comment: Bord xibenw=399-071 mg/dL Higher Vhrf=124 mg/dL or greater Performed By: #### L 100.0100, L500.2500, L501.4020 #### [facility] [address] [place], [address] Cholesterol in VLDL [Mass/Vol] 20 mg/dL Normal 5-40 [facility] Comment on above: Performed By: #### L 100.0100, L500.2500, L501.4020 #### [facility] [address] [place], [address] Triglyceride [Mass/Vol] 101 mg/dL Normal [facility] Comment on above: Result Comment: The drugs N-Acetylcysteine and Metamizole may falsely depress this assay. Normal range: <150 mg/dL Borderline High: 150-199 mg/dL High: 200-499 mg/dL Very High: >500 mg/dL Performed By: #### L 100.0100, L500.2500, L501.4020 #### [facility] [place], [address] MCV (mean corpuscular volume ) determinationOrdered By: Vonda Mueller on 06-30-2024 MCV (RBC) [Entitic vol] 101.0 fL High 81-99 [facility] Mean corpuscular hemoglobin (MCH) determinationOrdered By: Vonda Mueller on 06-30-2024 MCH (RBC) [Entitic mass] 34.9 pg High 27.0-32.0 [facility] Mean corpuscular hemoglobin concentration (MCHC) determinationOrdered By: Vonda Mueller on 06-30-2024 MCHC (RBC) [Mass/Vol] 34.6 g/dL 32-36 [facility] Mean platelet volume determi nationOrdered By: Vonda Mueller on 06-30-2024 Platelet mean volume (Bld) [Entitic vol] 10.4 fL 6.2-12.0 [facility] Monocyte percentageOrdered B y: Vonda Mueller on 06-30-2024 Monocytes/100 WBC (Bld) 12.9 % High 0-10 [facility] Neutrophil percentageOrdered By: Vonda Mueller on 06-30-2024 Neutrophils/100 WBC (Bld) 61.3 % 47-70 [facility] No Panel InformationOrdered By: Vonda Mueller on 06-30-2024 Unsaturated Iron Binding Capacity 187 ug/dL Low 228-428 [facility] Nucleated red blood cell per centageOrdered By: Vonda Mueller on 06-30-2024 Nucleated RBC/100 WBC (Bld) [Ratio] 0 % 0-5 [facility] Platelet countOrdered By: Tye Mueller on 06-30-2024 Platelets (Bld) [#/Vol] 170 10*3/uL 150-450 [facility] Potassium measurement (mass/ volume)Ordered By: Vonda Mueller on 06-30-2024 Potassium (Unsp spec) [Mass/Vol] 4.2 mmol/L 3.3-5.1 [facility] RBC Auto (Bld) [#/Vol]Ordere d By: Vonda Mueller on 06-30-2024 RBC (Bld) [#/Vol] 3.95 10*6/uL Low 4.2-5.4 [facility] Screening total cholesterol/ high density lipoprotein (HDL) cholesterol ratioOrdered By: Vonda Mueller on 06-30-2024 Cholesterol.total/Chol esterol in HDL [Mass ratio] 2.95 {ratio} [facility] Serum classic neutrophil cyt oplasmic antibody assay (units/volume)Ordered By: Vonda Mueller on 06-30-2024 Neutrophil cytoplasmic Ab.classic Qn (S) <1:20 titer Neg:<1:20 [facility] Serum creatinine measurement (mass/volume)Ordered By: Vonda Mueller on 06-30-2024 Creatinine [Mass/Vol] 0.87 mg/dL 0.70-1.20 [facility] Serum glucose measurement (m ass/volume)Ordered By: Vonda Mueller on 06-30-2024 Glucose [Mass/Vol] 100 mg/dL High 70-99 [facility] Serum hepatitis B virus core antibody detectionOrdered By: Vonda Mueller on 06-30-2024 HBV core Ab Ql (S) Negative Negative [facility] Serum hepatitis B virus surf luisito antibody detectionOrdered By: Vonda Mueller on 06-30-2024 HBV surface Ab Ql (S) REAC [facility] Comment on above: <8.5 mIU/mL: Non-Wendie ctive8.5<= x <11.5 mIU/mL: Indeterminate>=11.5 mIU/mL: Reactive Non Reactive: Inconsistent with immunity less than <10 mIU/mL Reactive: Consistent with immunity greater than or equal to 10 mIU/mL Serum mitochondria antibody detectionOrdered By: Vonda Mueller on 06-30-2024 Mitochondria Ab Ql (S) <20.0 Units 0.0-20.0 [facility] Comment on above: Negative 0.0 - 20.0 Equivocal 20.1 - 24.9 Positive >24.9Mitochondrial (M2) Antibodies are found in 90-96% ofpatients with primary biliary cirrhosis.Performed at: [address], [place] [id number] Director: Jorgito Cunningham PhD, Phone: [phone] Serum or plasma actin IgG an tibody assay (units/volume)Ordered By: Vonda Mueller on 06-30-2024 Actin IgG Qn 5 Units 0-19 [facility] Comment on above: Negative 0 - 19 Weak positive 20 - 30 Moderate to strong positive >30 Actin Antibodies are found in 52-85% of patients with autoimmune hepatitis or chronic active hepatitis and in 22% of patients with primary biliary cirrhosis. Serum or plasma calcium ana maria urement (mass/volume)Ordered By: Vonda Mueller on 06-30-2024 Calcium [Mass/Vol] 9.4 mg/dL 7.6-11.0 [facility] Serum or plasma cholesterol in HDL measurement (mass/volume)Ordered By: Vonda Mueller on 06-30-2024 Cholesterol in HDL [Mass/Vol] 73 mg/dL >40 [facility] Comment on above: National Cholesterol Education Program (NCEP) guidelines:<40 mg/dL: Low HDL-cholesterol (major risk factor for CHD)>= 60 mg/dL: High HDL-cholesterol (negative risk factor for CHD)HDL-cholesterol is affected by a number of factors, e.g. smoking, exercise, hormones, sex and age. Serum or plasma cholesterol measurement (mass/volume)Ordered By: Vonda Mueller on 06-30-2024 Cholesterol [Mass/Vol] 214 mg/dL High <201 [facility] Comment on above: Cholesterol level, D esirable <200 mg/dLBorderline high cholesterol 200-239 mg/dLHigh cholesterol >=240 mg/dLRecommendations of the NCEP Adult Treatment Panel for the following risk-cutoff thresholds for the [place] population. Serum or plasma ferritin blank surement (mass/volume)Ordered By: Vonda Mueller on 06-30-2024 Ferritin [Mass/Vol] 176 ng/mL 22-378 [facility] Serum or plasma iron saturat ion measurement (mass fraction)Ordered By: Vonda Mueller on 06-30-2024 Iron saturation [Mass fraction] 48.0 % 13-59 [facility] Serum or plasma urea nitroge n measurement (mass/volume)Ordered By: Vonda Mueller on 06-30-2024 Urea nitrogen [Mass/Vol] 16 mg/dL 4-19 [facility] Serum perinuclear neutrophil cytoplasmic antibody titer by immunofluorescenceOrdered By: Vonda Mueller on 06-30-2024 Neutrophil cytoplasmic Ab.perinuclear IF (S) [Titer] <1:20 titer Neg:<1:20 [facility] Comment on above: The presence of posi tive fluorescence exhibiting P-ANCA orC-ANCA patterns alone is not specific for the diagnosis ofWegener's Granulomatosis (WG) or microscopic polyangiitis.Decisions about treatment should not be based solely onANCA IFA results. The [employer] ANCA [employer] Consensusrecommends follow up testing of positive sera with both CO-3 and MPO-ANCA enzyme immunoassays. As many as 5% serumsamples are positive only by EIA. Ref. AM J Clin [id number];111:507-513. Sodium levelOrdered By: Amina Mueller on 06-30-2024 Sodium [Moles/Vol] 139 mmol/L 133-145 [facility] Triglycerides measurementOrd ered By: Vonda Mueller on 06-30-2024 Triglyceride [Mass/Vol] 101 mg/dL <199 [facility] Comment on above: The drugs N-Acetylcy steine and Metamizole may falsely depress this assay. Normal range: <150 mg/dLBorderline High: 150-199 mg/dLHigh: 200-499 mg/dLVery High: >500 mg/dL White blood cell (WBC) count Ordered By: Vonda Mueller on 06-30-2024 WBC (Bld) [#/Vol] 3.0 10*3/uL Low 4.4-11.0 [facility] Gastroenterology Visit Repor ton 06-29-2024 Gastroenterology Visit Report [facility] [address] [place] [address] OFFICE VISIT Date of Service: 06/29/24 MR#: [id number] Acct: [id number] Name: VIOLET HERNANDEZ Rep #: [id number] : 1985 Provider: MOY rodriguez Age/Sex: 38/F Location: [facility] Status: Signed Intake Vital Signs 04/27/24 08:00 06/29/24 08:21 Height 4 ft 10 in 4 ft 10 in Weight: 135 lb 4 oz BMI 28.3 BP 107/72 Respiration 18 Pulse 60 Pulse Oximetry (%) 96 Oxygen Delivery Method room air Intake Visit Reasons: NAFLD MILD/MODERATE SCARRING Chief Complaint: FU ON SLEEP STUDY Assisted Living Associate Required: No Accompanied by: Self Is patient [...] dull intermittent ache in URQ of abdomen. [facility] Medical History (Updated 06/29/24 @ 08:56 by MOY Art) NICA (obstructive sleep apnea) Costochondritis VALERA (nonalcoholic steatohepatitis) Osteopenia Obesity (BMI 30.0-34.9) Abdominal [...] since 2008, h/o thrombocytopenia - seeing Dr. Braun - YUVAL pain, intermittent, dull ache, can be triggered [...] pain, belching, (more content not included)... Normal [facility] ABD Limited w/ Elastographyo n 06-27-2024 ABD Limited w/ Elastography [facility] Services [address] [place] [address] ABD Limited w/ Elastography MR#: [id number] Acct: [id number] Name: VIOLET HERNANDEZ Rep #: [id number] : 1985 F 38 From: Delmer oneal MD PCP: Dr. Emily Sanders MD Status: REG CLI Study: ABD Limited w/ Elastography Date of Exam: 06/09 11/03 Exam# [id number] Ordering Dr: Jorgito Boogie MD PROCEDURE: ABD [...] quadrant ascites. US/ABD Limited w/ Elastography IMPRESSION: [id number] HEPATIC FIBROSIS Reference Values: SRU <1.37 m/s [...] measurement may be in question. Reading Location: [facility] CC: Dr. Emily Sanders MD; Dr. Jorgito Boogie MD Exchange Teller: Signed Normal [facility] Urgent Care Visit Reporton 0 06-20-2024 Urgent Care Visit Report [facility] [address], [address] [place] [address] OFFICE VISIT Date of Service: 06/20/24 MR#: [id number] Acct: [id number] Name: VIOLET HERNANDEZ Rep #: [id number] : 1985 Provider: ELIZABETH Lala Age/Sex: 38/F Location: [facility] Status: Signed Intake Vital Signs 04/27/24 08:00 [...] ears clogged and ears plugged since thu. [facility] Medical History (Updated 04/27/24 @ 08:[address] Emily Sanders MD) NICA (obstructive sleep apnea) Costochondritis VALERA (nonalcoholic steatohepatitis) Osteopenia Obesity (BMI 30.0-34.9) Abdominal [...] normal visual (more content not included)... [facility] VIOLET HERNANDEZ Matt ([id number]) 1985 F Date Time Provider Department 05/20/24 4:00 PM SHERLY NG During your visit today, we recorded the following information about you: Blood pressure Weight Height 100/60 62.1 kg 1.473 m Sherly Ng APRN.CNP 05/20/2024 7:27 PM Signed Surgical Nurse Practitioner offered: Patient declines. Violet is a 38 [...] discussed with the Patient or Patient's Authorized Medical Chief Technician. As applicable, any other physician, advance practice provider, medical student, or other health professional student that will be observing or involved in the sensitive examination for educational or training purposes was discussed with the Patient or Authorized Medical Chief Technician. The Patient or Authorized Medical Chief Technician has agreed to proceed with the sensitive [...] external genitalia normal, normal Bartholin's glands, urethra, Prague's glands, no vulvar lesions, good vaginal support, [...] liver enzymes before refills - PCP at [place] 4) Contraception: hysterectomy. Contraceptive options reviewed and information provided. 5) STD screening: Declined STD check. 6) Follow up one year or sooner as needed Sherly Ng APRN.CN (more content not included)... Normal [facility] Bilirubin Test strip Ql (U)O rdered By: Emily Sanders on 04-27-2024 Bilirubin Ql (U) Negative Negative [facility] Epithelial cells.squamous LM Ql (Urine sed)Ordered By: Emily Sanders on 04-27-2024 Epithelial cells.squamous LM.HPF (Urine sed) [#/Area] 0 /[HPF] 5-10 [facility] Glucose Ql (U)Ordered By: Eduardo Sanders on 04-27-2024 Urine Glucose (UA) Normal mg/dl Normal [facility] Internal Medicine Office Vis itocarlee 04-27-2024 Internal Medicine Office Visit [facility] [address] [place], [place] [address] OFFICE VISIT Date of Service: 04/27/24 MR#: [id number] Acct: [id number] Name: VIOLET HERNANDEZ Rep #: [id number] : 1985 Provider: Dr. Emily fofana MD Age/Sex: 38/F Location: [facility] Status: Signed Intake Vital Signs 04/04/24 09:14 [...] tab PO QDAY 04/27/24 04/27/24 Hi story [facility] Medical History (Updated 04/27/24 @ 08:[address] Emily Sanders MD) NICA (obstructive sleep apnea) Costochondritis VALERA (nonalcoholic steatohepatitis) Osteopenia Obesity (BMI 30.0-34.9) Abdominal [...] No u (more content not included)... Normal [facility] Ketones Test strip Ql (U)Ord ered By: Emily Sanders on 04-27-2024 Ketones Ql (U) Negative Negative [facility] Microscopic analysis of urin e for red blood cells (RBC)Ordered By: Emily Sanders on 04-27-2024 Microscopic analysis of urine for red blood cells (RBC) 0 SEEN /hpf 0-5 [facility] Urine RBC 0 SEEN /hpf 0-5 [facility] Mucus LM Ql (Urine sed)Order ed By: Emily Sanders on 04-27-2024 Mucus Ql (Urine sed) 0 SEEN /hpf [facility] Nitrite Test strip Ql (U)Ord ered By: Emily Sanders on 04-27-2024 Nitrite Ql (U) Negative Negative [facility] Protein Test strip Ql (U)Ord ered By: Emily Sanders on 04-27-2024 Protein Ql (U) 15 mg/dl High Negative [facility] Squamous epithelial cells de tection in urine sediment by light microscopyOrdered By: Emily Sanders on 04-27-2024 Epithelial cells.squamous LM Ql (Urine sed) 0-5 SEEN /hpf 5-10 [facility] Urinalysis, Completeon 04-27 EPI,SQUAMOUS 0-5 SEEN Normal 5-10 [facility] Comment on above: Order Comment: MOODY CTOR TO SPECIFY Performed By: #### L 400.0001 ####[facility] [address] [place], [address] RBC 0 SEEN Normal 0-5 [facility] Comment on above: Order Comment: MOODY CTOR TO SPECIFY Performed By: #### L 400.0001 ####[facility] [address] [place], [address] BACTERIA 0 SEEN Normal None Seen [facility] Comment on above: Order Comment: MOODY CTOR TO SPECIFY Performed By: #### L 400.0001 ####[facility] [address] [place], [address] Mucus Ql (Urine sed) 0 SEEN Normal [facility] Comment on above: Order Comment: MOODY CTOR TO SPECIFY Performed By: #### L 400.0001 ####[facility] [address] [place], [address] WBC 0 SEEN Normal 0-5 [facility] Comment on above: Order Comment: MOODY CTOR TO SPECIFY Performed By: #### L 400.0001 ####[facility] [address] [place], [address] Urine blood detectionOrdered By: Emily Sanders on 04-27-2024 Urine Occult Blood 10 /ul High Negative [facility] Urine clarityOrdered By: Kaleb Sanders on 04-27-2024 Clarity (U) Clear Clear [facility] Urine color determinationOrd ered By: Emily Sanders on 04-27-2024 Color (U) Yellow Yellow [facility] Urine glucose detectionOrder ed By: Emily Sanders on 04-27-2024 Glucose Ql (U) Normal mg/dl Normal [facility] Urine leukocyte esterase det ection by dipstickOrdered By: Emily Sanders on 04-27-2024 Leukocyte esterase Test strip Ql (U) 25 /ul High Negative [facility] Urine pHOrdered By: Miguel Sanders on 04-27-2024 pH (U) 6.0 [pH] 5.0 - 8.0 [facility] Urine sediment bacteria coun t by microscopy (number/high power field)Ordered By: Emily Sanders on 04-27-2024 Bacteria LM.HPF (Urine sed) [#/Area] 0 /[HPF] None Seen [facility] Urine specific gravity measu rementOrdered By: Emily Sanders on 04-27-2024 Specific gravity (U) [Rel density] 1.020 1.002-1.030 [facility] Urine urobilinogen measureme ntOrdered By: Emily Sanders on 04-27-2024 Urobilinogen Ql (U) Normal mg/dl Normal [facility] Urobilinogen Ql (U)Ordered B y: Emily Sanders on 04-27-2024 Urine Urobilinogen Normal mg/dl Normal [facility] White blood cell countOrdere d By: Emily Sanders on 04-27-2024 Urine WBC 0 SEEN /hpf 0-5 [facility] White blood cell count 0 SEEN /hpf 0-5 [facility] Oncology Visit Reporton 04-09 Oncology Visit Report [facility] [address] [place], [place] [address] [address] OFFICE VISIT Date of Service: 04/25/24 1305 MR#: [id number] Acct: [id number] Name: VIOLET HERNANDEZ Rep #: [id number] : 1985 From: Gene Braun MD Age/Sex: 38/F Location: [facility] Status: Signed HPI Subjective Date of Service 04/25/24 Chief Complaint F/u for Leukopenia/Neutropenia. 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 Had bone marrow biopsy done at that time which was negative so stayed on observation. She remained leukopenic, moved to [facility], had another bone marrow biopsy on 01/25/2015. Pathology showed hypocellular marrow with normal cytogenetics and FISH. She moved to [place] and wanted her follow done here at [facility]. She is on observation, comes for follow up. Feels well. [facility] Medical History Costochondritis VALERA (nonalcoholic steatohepatitis) Osteopenia Obesity (BMI 30.0-34.9) Abdominal [...] Count 135 L 133 L 130 L Charles % (Auto) Absolute Neuts (auto) 1.4 L [...] 36.4 L Plt Count 133 L 159 Charles % (Auto) 15.5 H Absolute Neuts (auto) 1.9 L 1.9 L Absolute Lymphs (auto) 0.85 Sodium Potassium Chloride Carbon Dioxide BUN Creatinine Glucose Calcium Total Bilirubin AST ALT Alkaline Phosphatase Lactate Dehydrogenase Total Protein Albumin Globulin Exam Physical Exam (more content not included)... Normal [facility] L3410.9998on 04-21-2024 [facility] Misc. COMMENT Normal . [facility] Comment on above: Order Comment: LG GR EEN SHEP WB [id number] FISH Result Comment: Test Ordered: [id number] CLL FISH Panel Specimen Type Comment: Reference [...] FISH RESULTS: CCND1/IGH: NORMAL . nuc maya 11q13(IMWX0l1),14q32(IGHx2)[200] HUNTER: NORMAL nuc maya 11q22.3(ATMx2)[200]. 12cen: NORMAL . nuc maya 12cen(V33F1h3)[200]. 13q: NORMAL . nuc maya 13q14.3(DLEUx2),13q34(QYOH0x1)[200]. TP53: NORMAL . nuc maya 17p13.1(TP53x2)[200] This analysis is limited to abnormalities detectable by the specific probes included in the study. FISH results should be interpreted within the context of a full cytogenetic analysis and hematologic evaluation. REFERENCES:. Cathy,(2013) Adv Exp Med Biol 792:193-214.PMID#[id number] . Jase et al.,(2011) Clin Lab Med 31:649-658.PMID#[id number] This test was developed and its performace characteristics determined by [employer] ([employer]). It has not been cleared or approved by the U.S. Food and Drug Administration. The DNA probe vendor for this study was [employer] ([employer]). Director Review: Comment: Reference Range: . Yee Galeana, PhD, [facility] Performed at: [facility] [place] [address] [facility], [place], [place] [id number] Director Of Community Center: Moira Ramirez [facility], Phone: [phone] Performed at: [address] [id number] Director Of Community Center: Jorgito Cunningham PhD, Phone: [phone] Performed By: #### L 501.9520, L506.0400 #### [facility] [place], [address] L3410.9998on 04-20-2024 [facility]. COMMENT Normal . [facility] Comment on above: Order Comment: ROHIT HANNA WB [id number] CYTOMETRY Result Comment: Test Ordered: [id number] Flow panel: Leukemia/Lymphoma Flow Interpretation Comment -Y [...] . 91% Analysis and Gating Strategy Comment [facility] Reference Range: . 8 color analysis with CD45/SSC gating [facility] Phenotype Chart Comment -Y Reference [...] developed and its performance characteristics determined by [employer]. It has not been cleared or approved by the U.S. Food and Drug Administration. The FDA has determined that such clearance or approval is not necessary. This test is used for clinical purposes. It should not be regarded as investigational or for research. Performed at: -Y - [facility] [address] [facility], [place] [id number] Director Of Community Center: Moira Ramirez [facility], Phone: [phone] Performed at: [facility] - [facility] [address] [id number] Director Of Community Center: Moira Ramirez MD, Phone: [phone] Performed at: [place] - [facility] [address] [place], [place] [id number] Director Of Community Center: Moira Ramirez [facility], Phone: [phone] Performed at: - [facility] [id number] Director Of Community Center: Jorgito Cunningham PhD, Phone: [phone] Performed By: #### L 3410.9998 ####[facility] [address] [place], [place], [id number] Absolute lymphocyte countOrd ered By: Gene Braun on 04-18-2024 Lymphocytes Auto (Unsp spec) [#/Vol] 0.62 10*3/uL Low 0.83-4.51 [facility] Absolute neutrophil countOrd ered By: Gene Braun on 04-18-2024 Neutrophils (Bld) [#/Vol] 1.9 10*3/uL Low 2.0-7.7 [facility] Anion gap in Serum or Plasma Ordered By: Gene Braun on 04-18-2024 Anion gap [Moles/Vol] 12 mmol/L 5-15 [facility] Automated blood erythrocyte countOrdered By: Gene Braun on 04-18-2024 RBC (Bld) [#/Vol] 3.66 10*6/uL Low 4.2-5.4 [facility] Comment on above: Performed By: #### L 501.9520, L506.0400 #### [facility] [address] [place], [place], [address] Automated blood hematocrit ( percentage)Ordered By: Gene Braun on 04-18-2024 Hematocrit (Bld) [Volume fraction] 36.4 % Low 37-47 [facility] Comment on above: Performed By: #### L 501.9520, L506.0400 #### [facility] [address] [place], [address] Automated lymphocyte count a s percentage of total leukocytesOrdered By: Gene Braun on 04-18-2024 Lymphocytes/100 WBC (Bld) 19.4 % Normal - [facility] Comment on above: Performed By: #### L 501.9520, L506.0400 #### [facility] [address] [place], [address] Lymphocytes/100 WBC Auto (Unsp spec) 19.4 % [facility] BUN/creatinine ratioOrdered By: Gene Braun on 04-18-2024 Urea nitrogen/Creatinine [Mass ratio] 17.5 mg/mg 11-28 [facility] Basophil percentageOrdered B y: Gene Braun on 04-18-2024 Basophils/100 WBC (Bld) 0.6 % Normal 0- [facility] Comment on above: Performed By: #### L 501.9520, L506.0400 #### [facility] [address] [place], [address] Bilirubin, totalOrdered By: Gene Wangelbert on 04-18-2024 Bilirubin [Mass/Vol] 0.22 mg/dL 0.00-1.30 [facility] CBC W/Diff, Automatedon 04-09 Absolute Lymph 0.62 X10 3/uL Low 0.83-4.51 [facility] Comment on above: Performed By: #### L 501.9520, L506.0400 #### [facility] [address] [place], [address] Absolute Neut 1.9 X10 3/uL Low 2.0-7.7 [facility] Comment on above: Performed By: #### L 501.9520, L506.0400 #### [facility] [address] [place], [address] IG% 0.300 Normal 0.0-0.9 [facility] Comment on above: Result Comment: IG% - Immature Granulocytes (promyelocytes, myelocytes and metamyelocytes) > 1% indicates that a LEFT SHIFT is Present. Performed By: #### L 501.9520, L506.0400 #### [facility] [address] [place], [address] Nucleated RBC (Bld) [#/Vol] 0 10*3/uL Normal 0-5 [facility] Comment on above: Performed By: #### L 501.9520, L506.0400 #### [facility] [address] [place], [address] RDW SD 54.5 fl High 35.1-43.9 [facility] Comment on above: Performed By: #### L 501.9520, L506.0400 #### [facility] [address] [place], [address] Carbon dioxide, total [Moles /volume] in Central venous bloodOrdered By: Gene Braun on 04-18-2024 CO2 [Moles/Vol] 22.8 mmol/L 21.0-32.0 [facility] Chloride assayOrdered By: Erin Braun on 04-18-2024 Chloride [Moles/Vol] 103 mmol/L 98-108 [facility] Comprehensive Metabolic Prof ilon 04-18-2024 Albumin [Mass/Vol] 4.2 g/dL Normal 3.5-5.0 [facility] Comment on above: Performed By: #### L 501.9520, L506.0400 #### [facility] [address] [place], [address] Albumin/Globulin [Mass ratio] 1.7 {ratio} Normal 0.9-2.4 [facility] Comment on above: Performed By: #### L 501.9520, L506.0400 #### [facility] [address] [place], [address] ALK PHOS 112 U/L High 35-104 [facility] Comment on above: Performed By: #### L 501.9520, L506.0400 #### [facility] [address] [place], [address] ALT [Catalytic activity/Vol] 111 U/L High <=34 [facility] Comment on above: Performed By: #### L 501.9520, L506.0400 #### [facility] [address] [place], [address] AST [Catalytic activity/Vol] 48 U/L High <=31 [facility] Comment on above: Performed By: #### L 501.9519, L506.0400 #### [facility] [address] [place], [address] Bilirubin [Mass/Vol] 0.22 mg/dL Normal 0.00-1.30 [facility] Comment on above: Performed By: #### L 501.9519, L506.0400 #### [facility] [address] [place], [address] BUN/CRE 17.5 RATIO Normal 10-20 [facility] Comment on above: Performed By: #### L 501.9519, L506.0400 #### [facility] [address] [place], [address] Calcium [Mass/Vol] 9.4 mg/dL Normal 7.6-11.0 [facility] Comment on above: Performed By: #### L 501.20, L506.0400 #### [facility] [address] [place], [address] Chloride [Moles/Vol] 103 mmol/L Normal 98-108 [facility] Comment on above: Performed By: #### L 501.9520, L506.0400 #### [facility] [address] [place], [address] CO2 [Moles/Vol] 22.8 mmol/L Normal 21.0-32.0 [facility] Comment on above: Performed By: #### L 501.9520, L506.0400 #### [facility] [address] [place], [address] Creatinine [Mass/Vol] 0.74 mg/dL Normal 0.70-1.20 [facility] Comment on above: Performed By: #### L 501.9520, L506.0400 #### [facility] [address] [place], [address] ECRCL 90.20 ml/min Normal 50-250 [facility] Comment on above: Performed By: #### L 501.9520, L506.0400 #### [facility] [address] [place], [address] GAP 12 Normal 5-15 [facility] Comment on above: Performed By: #### L 501.9520, L506.0400 #### [facility] [address] [place], [address] GFR/1.73 sq M.predicted among non-blacks MDRD (S/P/Bld) [Vol rate/Area] 105 mL/min/{1.73_m2} Normal >60 [facility] Comment on above: Result Comment: mL/m in/1.73m2 CKD-EPI Creatinine Equation (2020) Performed By: #### L 501.9520, L506.0400 #### [facility] [address] [place], [address] Globulin (S) [Mass/Vol] 2.5 g/dL Normal 2.2-4.2 [facility] Comment on above: Performed By: #### L 501.9520, L506.0400 #### [facility] [address] [place], [address] Glucose [Mass/Vol] 99 mg/dL Normal 70-99 [facility] Comment on above: Performed By: #### L 501.9520, L506.0400 #### [facility] [address] [place], [address] Potassium [Moles/Vol] 4.3 mmol/L Normal 3.3-5.1 [facility] Comment on above: Performed By: #### L 501.9520, L506.0400 #### [facility] [address] [place], [address] Sodium [Moles/Vol] 137 mmol/L Normal 133-145 [facility] Comment on above: Performed By: #### L 501.9520, L506.0400 #### [facility] [address] [place], [address] T PROT 6.6 g/dL Normal 5.9-8.4 [facility] Comment on above: Performed By: #### L 501.9520, L506.0400 #### [facility] [address] [place], [address] Urea nitrogen [Mass/Vol] 13 mg/dL Normal 4-19 [facility] Comment on above: Performed By: #### L 501.9520, L506.0400 #### [facility] [address] [place], [address] Eosinophil percentageOrdered By: Gene Braun on 04-18-2024 Eosinophils/100 WBC (Bld) 2.8 % Normal 0-5 [facility] Comment on above: Performed By: #### L 501.9520, L506.0400 #### [facility] [address] [place], [address] Erythrocyte distribution wid th ratioOrdered By: Gene Braun on 04-18-2024 Erythrocyte distribution width (RBC) [Ratio] 15.2 % High 11.6-14.6 [facility] Comment on above: Performed By: #### L 501.9520, L506.0400 #### [facility] [address] [place], [place], [address] Erythrocyte distribution wid th standard deviationOrdered By: Gene Braun on 04-18-2024 Erythrocyte distribution width (RBC) [Entitic vol] 54.5 fL High 35.1-43.9 [facility] Erythrocyte distribution width (RBC) [Ratio] 54.5 fl High 35.1-43.9 [facility] Estimation of creatinine francisco aranceOrdered By: Gene Braun on 04-18-2024 Estimated Creatinine Clearance Calc 90.20 ml/min 50-250 [facility] FOLATES,SERUM (FOLIC ACID)on 04-18-2024 FOLATES,SERUM 20.00 ng/mL Normal 4.60-34.80 [facility] Comment on above: Order Comment: N Result Comment: Hemo lysis, Results will be affected, Requires Recollection. Performed By: #### L 501.9520, L506.0400 #### [facility] [address] [place], [place], [address] Folate [Moles/Vol]Ordered By : Gene Braun on 04-18-2024 Serum Folate 20.00 ng/mL 4.60-34.80 [facility] Comment on above: Hemolysis, Results w ill be affected, Requires Recollection. Folate [Moles/volume] in Ser um or PlasmaOrdered By: Gene Braun on 04-18-2024 Folate [Moles/Vol] 20.00 ng/mL 4.60-34.80 [facility] Comment on above: Hemolysis, Results w ill be affected, Requires Recollection. GFR/1.73 sq M.predicted betty g non-blacks MDRD (S/P/Bld) [Vol rate/Area]Ordered By: Gene Braun on 04-18-2024 Estimated GFR (MDRD) Non-Af Amer 105 >60 [facility] Comment on above: mL/min/1.73m2 CKD-EP I Creatinine Equation (2020) Glomerular filtration rate ( GFR) estimation/1.73 sq m using serum, plasma, or whole bOrdered By: Gene Braun on 04-18-2024 GFR/1.73 sq M.predicted among non-blacks MDRD (S/P/Bld) [Vol rate/Area] 105 mL/min/{1.73_m2} >60 [facility] Comment on above: mL/min/1.73m2 CKD-EP I Creatinine Equation (2020) Hemoglobin measurementOrdere d By: Gene Braun on 04-18-2024 Hemoglobin (Bld) [Mass/Vol] 12.6 g/dL Normal 12.0-15.0 [facility] Comment on above: Performed By: #### L 501.9520, L506.0400 #### [facility] [address] [place], [address] Immature granulocytes/100 WB C Auto (Bld)Ordered By: Gene Braun on 04-18-2024 Immature granulocytes/100 WBC (Bld) 0.300 % 0.0-0.9 [facility] Comment on above: IG% - Immature Granu locytes (promyelocytes, myelocytes and metamyelocytes) > 1% indicates that a LEFT SHIFT is Present. L503.0106on 04-18-2024 Cobalamin (Vitamin B12) [Mass/Vol] 525 pg/mL Normal 180-914 [facility] Comment on above: Performed By: #### L 503.0106 ####[facility] [address] [place], [address] LDHon 04-18-2024 LDH 217 U/L Normal 84-246 [facility] Comment on above: Order Comment: 1 Performed By: #### L 501.9520, L506.0400 #### [facility] [address] [place], [address] Laboratory - Chemistry and C hemistry - challengeOrdered By: Gene Braun on 04-18-2024 AST [Catalytic activity/Vol] 48 U/L High <32 [facility] Lactate dehydrogenase (LDH) measurementOrdered By: Gene Braun on 04-18-2024 LDH [Catalytic activity/Vol] 217 U/L 84-246 [facility] Lymphocytes Auto (Unsp spec) [#/Vol]Ordered By: Gene Braun on 04-18-2024 Lymphocytes (Bld) [#/Vol] 0.62 10*3/uL Low 0.83-4.51 [facility] MCV (mean corpuscular volume ) determinationOrdered By: Gene Braun on 04-18-2024 MCV (RBC) [Entitic vol] 99.5 fL High 81-99 [facility] Comment on above: Performed By: #### L 501.9520, L506.0400 #### [facility] [address] [place], [address] Mean corpuscular hemoglobin (MCH) determinationOrdered By: Gene Braun on 04-18-2024 MCH (RBC) [Entitic mass] 34.4 pg High 27.0-32.0 [facility] Comment on above: Performed By: #### L 501.9520, L506.0400 #### [facility] [address] [place], [address] Mean corpuscular hemoglobin concentration (MCHC) determinationOrdered By: Gene Braun on 04-18-2024 MCHC (RBC) [Mass/Vol] 34.6 g/dL Normal 32-36 [facility] Comment on above: Performed By: #### L 501.9520, L506.0400 #### [facility] [address] [place], [address] Mean platelet volume determi nationOrdered By: Gene Braun on 04-18-2024 Platelet mean volume (Bld) [Entitic vol] 10.6 fL Normal 6.2-12.0 [facility] Comment on above: Performed By: #### L 501.9520, L506.0400 #### [facility] [address] [place], [address] Monocyte percentageOrdered B y: Gene Braun on 04-18-2024 Monocytes/100 WBC (Bld) 18.2 % High 0-10 [facility] Comment on above: Performed By: #### L 501.9520, L506.0400 #### [facility] [address] [place], [address] Neutrophil percentageOrdered By: Gene Braun on 04-18-2024 Neutrophils/100 WBC (Bld) 58.7 % Normal 47-70 [facility] Comment on above: Performed By: #### L 501.9520, L506.0400 #### [facility] [address] [place], [address] Nucleated red blood cell per centageOrdered By: Gene Braun on 04-18-2024 Nucleated RBC/100 WBC (Bld) [Ratio] 0 % 0-5 [facility] Platelet countOrdered By: Erin Braun on 04-18-2024 Platelets (Bld) [#/Vol] 159 10*3/uL Normal 150-450 [facility] Comment on above: Performed By: #### L 501.9520, L506.0400 #### [facility] [address] [place], [address] Potassium (Unsp spec) [Mass/ Vol]Ordered By: Gene Braun on 04-18-2024 Potassium [Moles/Vol] 4.3 mmol/L 3.3-5.1 [facility] Potassium measurement (mass/ volume)Ordered By: Gene Braun on 04-18-2024 Potassium (Unsp spec) [Mass/Vol] 4.3 mmol/L 3.3-5.1 [facility] Serum creatinine measurement (mass/volume)Ordered By: Gene Braun on 04-18-2024 Creatinine [Mass/Vol] 0.74 mg/dL 0.70-1.20 [facility] Serum globulin measurementOr dered By: Gene Braun on 04-18-2024 Globulin (S) [Mass/Vol] 2.5 g/dL 2.2-4.2 [facility] Serum glucose measurement (m ass/volume)Ordered By: Gene Braun on 04-18-2024 Glucose [Mass/Vol] 99 mg/dL 70-99 [facility] Serum or plasma alanine valencia otransferase (ALT) measurementOrdered By: Gene Braun on 04-18-2024 ALT [Catalytic activity/Vol] 111 U/L High <35 [facility] Serum or plasma albumin ana maria urement (mass/volume)Ordered By: Gene Bruan on 04-18-2024 Albumin [Mass/Vol] 4.2 g/dL 3.5-5.0 [facility] Serum or plasma albumin/glob ulin mass ratioOrdered By: Gene Braun on 04-18-2024 Albumin/Globulin [Mass ratio] 1.7 {ratio} 0.9-2.4 [facility] Serum or plasma alkaline juana sphatase measurementOrdered By: Gene Braun on 04-18-2024 ALP [Catalytic activity/Vol] 112 U/L High 35-104 [facility] Serum or plasma calcium ana maria urement (mass/volume)Ordered By: Gene Bruan on 04-18-2024 Calcium [Mass/Vol] 9.4 mg/dL 7.6-11.0 [facility] Serum or plasma urea nitroge n measurement (mass/volume)Ordered By: Gene Braun on 04-18-2024 Urea nitrogen [Mass/Vol] 13 mg/dL 4-19 [facility] Sodium levelOrdered By: Luke Braun on 04-18-2024 Sodium [Moles/Vol] 137 mmol/L 133-145 [facility] Total proteinOrdered By: Pop Braun on 04-18-2024 Protein [Mass/Vol] 6.6 g/dL 5.9-8.4 [facility] Vitamin B12 ser/plasOrdered By: Gene Braun on 04-18-2024 Cobalamin (Vitamin B12) [Mass/Vol] 525 pg/mL 180-914 [facility] White blood cell (WBC) count Ordered By: Gene Braun on 04-18-2024 WBC (Bld) [#/Vol] 3.2 10*3/uL Low 4.4-11.0 [facility] Comment on above: Performed By: #### L 139.8907, L506.0400 #### [facility] [place], [address] Direct serum free thyroxine (FT4) measurementOrdered By: Emily Sanders on 04-04-2024 Free T4 [Mass/Vol] 1.20 ng/dL 0.76-1.46 [facility] Internal Medicine Office Vis iton 04-04-2024 Internal Medicine Office Visit [facility] [address] [place] [address] OFFICE VISIT Date of Service: 04/04/24 MR#: [id number] Acct: [id number] Name: VIOLET HERNANDEZ Rep #: [id number] : 1985 Provider: Dr. Emily fofana MD Age/Sex: 38/F Location: [facility] Status: Signed Intake Vital Signs 03/31/24 06:26 [...] feels lightheaded, PCP notified Intake Visit Reasons: [facility] FU Chief Complaint: [facility] FU Is patient in pain?: Yes (3 [...] you fallen in the past year?: No [facility] Medical History (Updated 04/04/24 @ 18:[address] Emily Sanders MD) Costochondritis VALERA (nonalcoholic steatohepatitis) Osteopenia Obesity (BMI 30.0-34.9) Abdominal [...] of servings: 1 HPI HPI Chief Complaint: [facility] FU Details: VIOLET HERNANDEZ, is a 38 [...] abdominal pa (more content not included)... Normal [facility] Serum or plasma thyroid stim ulating hormone (TSH) measurement (units/volume)Ordered By: Emily Sanders on 04-04-2024 TSH Qn 0.705 uIU/mL 0.358-3.740 [facility] T4 Free Directon 04-04-2024 T4 FREE DIRECT 1.20 ng/dL Normal 0.76-1.46 [facility] Comment on above: Performed By: #### L 501.9520, L506.0400 #### [facility] [address] [place], [place], [id number] TSH QnOrdered By: Emily Sanders on 04-04-2024 Thyroid Stimulating Hormone (TSH) 0.705 uIU/mL 0.358-3.740 [facility] Thyroid Stim Hormone (TSH)on 04-04-2024 TSH 0.705 uIU/mL Normal 0.358-3.740 [facility] Comment on above: Performed By: #### L 501.9520, L506.0400 #### [facility] [address] [place], [address] 12 Lead EKGon 04-03-2024 12 Lead EKG [facility] Cardi[facility] Services [address] [place] [address] 12 Lead EKG 04/03/24 1041 MR#: [id number] Acct: [id number] Name: VIOLET HERNANDEZ Rep #: [id number] : 1985 38 From: Thao Foster MD [...] Otherwise normal ECG Confirmed by Thao Foster ([id number]), pictures editor LAVERNE VIVEROS ([id number]) on 04/04/2024 10:25:10 AM Referred By: COLE Confirmed By: Thao Foster 04/04/24 1025 Date Thao Foster MD CC: Dr. Willy Burt MD; Dr. Emily Sanders MD Signed Normal [facility] Absolute lymphocyte countOrd ered By: Willy Burt on 04-03-2024 Lymphocytes Auto (Unsp spec) [#/Vol] 0.39 10*3/uL Low 0.83-4.51 [facility] Absolute neutrophil countOrd ered By: Willy Burt on 04-03-2024 Neutrophils (Bld) [#/Vol] 3.0 10*3/uL 2.0-7.7 [facility] Automated lymphocyte count a s percentage of total leukocytesOrdered By: Willy Burt on 04-03-2024 Lymphocytes/100 WBC Auto (Unsp spec) 10.7 % Low 19-41 [facility] Basic Metabolic Profile (BMP )on 04-03-2024 BUN/CRE 13.4 RATIO Normal 10-20 [facility] Comment on above: Order Comment: 'TROP ' Serial specimen #1, #2 or #3: 1 Performed By: #### L 100.0100, L500.2500, L501.4020 #### [facility] [address] [place], [address] CA,Total 9.4 mg/dL Normal 8.5-10.1 [facility] Comment on above: Order Comment: 'TROP ' Serial specimen #1, #2 or #3: 1 Performed By: #### L 100.0100, L500.2500, L501.4020 #### [facility] [address] [place], [address] Chloride [Moles/Vol] 109 mmol/L High 98-107 [facility] Comment on above: Order Comment: 'TROP ' Serial specimen #1, #2 or #3: 1 Performed By: #### L 100.0100, L500.2500, L501.4020 #### [facility] [address] [place], [address] CO2 [Moles/Vol] 21.0 mmol/L Normal 21.0-32.0 [facility] Comment on above: Order Comment: 'TROP ' Serial specimen #1, #2 or #3: 1 Performed By: #### L 100.0100, L500.2500, L501.4020 #### [facility] [address] [place], [address] Creatinine [Mass/Vol] 0.90 mg/dL Normal 0.55-1.02 [facility] Comment on above: Order Comment: 'TROP ' Serial specimen #1, #2 or #3: 1 Result Comment: The validity of the calculated GFR GFRAA in patients over 70 years has not been determined. Clinical correlation is essential. Performed By: #### L 100.0100, L500.2500, L501.4020 #### [facility] [address] [place], [address] ECRCL 69.39 ml/min Normal [facility] Comment on above: Order Comment: 'TROP ' Serial specimen #1, #2 or #3: 1 Performed By: #### L 100.0100, L500.2500, L501.4020 #### [facility] [address] [place], [address] EST GFR - AA 90 mL/min Normal >60 [facility] Comment on above: Order Comment: 'TROP ' Serial specimen #1, #2 or #3: 1 Result Comment: Afri can Mauritanian GFR Calc Performed By: #### L 100.0100, L500.2500, L501.4020 #### [facility] [address] [place], [address] GAP 8 Normal 5-15 [facility] Comment on above: Order Comment: 'TROP ' Serial specimen #1, #2 or #3: 1 Performed By: #### L 100.0100, L500.2500, L501.4020 #### [facility] [address] [place], [address] GFR/1.73 sq M.predicted among non-blacks MDRD (S/P/Bld) [Vol rate/Area] 74 mL/min/{1.73_m2} Normal >60 [facility] Comment on above: Order Comment: 'TROP ' Serial specimen #1, #2 or #3: 1 Result Comment: Non- GFR Calc Performed By: #### L 100.0100, L500.2500, L501.4020 #### [facility] [address] [place], [address] Glucose [Mass/Vol] 142 mg/dL High 74-106 [facility] Comment on above: Order Comment: 'TROP ' Serial specimen #1, #2 or #3: 1 Result Comment: Fast ing Glucose result greater than or equal to 126 mg/dL suggests DIABETES MELLITUS per A.D.A. criteria. Performed By: #### L 100.0100, L500.2500, L501.4020 #### [facility] [address] [place], [address] Potassium [Moles/Vol] 4.7 mmol/L Normal 3.5-5.1 [facility] Comment on above: Order Comment: 'TROP ' Serial specimen #1, #2 or #3: 1 Performed By: #### L 100.0100, L500.2500, L501.4020 #### [facility] [address] [place], [address] Sodium [Moles/Vol] 138 mmol/L Normal 136-145 [facility] Comment on above: Order Comment: 'TROP ' Serial specimen #1, #2 or #3: 1 Performed By: #### L 100.0100, L500.2500, L501.4020 #### [facility] [address] [place], [address] Urea nitrogen [Mass/Vol] 12 mg/dL Normal 7-18 [facility] Comment on above: Order Comment: 'TROP ' Serial specimen #1, #2 or #3: 1 Performed By: #### L 100.0100, L500.2500, L501.4020 #### [facility] [address] [place], [address] Basophil percentageOrdered B y: Willy Burt on 04-03-2024 Basophils/100 WBC (Bld) 0.3 % 0-1 [facility] Blood urea nitrogen (BUN)/cr eatinine ratioOrdered By: Willy Burt on 04-03-2024 Urea nitrogen/Creatinine [Mass ratio] 13.4 mg/mg 10-20 [facility] CBC W/Diff, Automatedon 03-13 Absolute Lymph 0.39 X10 3/uL Low 0.83-4.51 [facility] Comment on above: Order Comment: MALINDA Mead. PREVIOUS SPECIMEN REJECTED DUE TOQNS. 04/03/24 Marcia Sinha. Performed By: #### L 100.0100 ####[facility] [address] [place], [address] Absolute Neut 3.0 X10 3/uL Normal 2.0-7.7 [facility] Comment on above: Order Comment: REDRA W. PREVIOUS SPECIMEN REJECTED DUE TOQNS. 04/03/24 1107 Liza Sinha. Performed By: #### L 100.0100 ####[facility] [address] [place], [address] Basophils/100 WBC (Bld) 0.3 % Normal 0-1 [facility] Comment on above: Order Comment: REDRA W. PREVIOUS SPECIMEN REJECTED DUE TOQNS. 04/03/24 1107 Liza Sinha. Performed By: #### L 100.0100 ####[facility] [address] [place], [address] Eosinophils/100 WBC (Bld) 0.0 % Normal 0-5 [facility] Comment on above: Order Comment: REDRA W. PREVIOUS SPECIMEN REJECTED DUE TOQNS. 04/03/24 1107 Liza Sinha. Performed By: #### L 100.0100 ####[facility] [address] [place], [address] Erythrocyte distribution width (RBC) [Ratio] 14.3 % Normal 11.6-14.6 [facility] Comment on above: Order Comment: REDRA W. PREVIOUS SPECIMEN REJECTED DUE TOQNS. 04/03/24 1107 Liza Sinha. Performed By: #### L 100.0100 ####[facility] [address] [place], [address] Hematocrit (Bld) [Volume fraction] 36.7 % Low 37-47 [facility] Comment on above: Order Comment: REDRA W. PREVIOUS SPECIMEN REJECTED DUE TOQNS. 04/03/24 1107 Liza Sinha. Performed By: #### L 100.0100 ####[facility] [address] [place], [address] Hemoglobin (Bld) [Mass/Vol] 12.7 g/dL Normal 12.0-15.0 [facility] Comment on above: Order Comment: REDRA W. PREVIOUS SPECIMEN REJECTED DUE TOQNS. 04/03/24 1107 Liza Sinha. Performed By: #### L 100.0100 ####[facility] [address] [place], [address] IG% 0.800 Normal 0.0-0.9 [facility] Comment on above: Order Comment: REDRA W. PREVIOUS SPECIMEN REJECTED DUE TOQNS. 04/03/24 1107 Liza Sinha. Result Comment: IG% - Immature Granulocytes (promyelocytes, myelocytes and metamyelocytes) > 1% indicates that a LEFT SHIFT is Present. Performed By: #### L 100.0100 ####[facility] [address] [place], [address] Lymphocytes/100 WBC (Bld) 10.7 % Low 19-41 [facility] Comment on above: Order Comment: REDRA W. PREVIOUS SPECIMEN REJECTED DUE TOQNS. 04/03/24 1107 Liza Sinha. Performed By: #### L 100.0100 ####[facility] [address] [place], [address] MCH (RBC) [Entitic mass] 33.5 pg High 27.0-32.0 [facility] Comment on above: Order Comment: REDRA W. PREVIOUS SPECIMEN REJECTED DUE TOQNS. 04/03/24 1107 Liza Sinha. Performed By: #### L 100.0100 ####[facility] [address] [place], [address] MCHC (RBC) [Mass/Vol] 34.6 g/dL Normal 32-36 [facility] Comment on above: Order Comment: REDRA W. PREVIOUS SPECIMEN REJECTED DUE TOQNS. 04/03/24 1107 Liza Sinha. Performed By: #### L 100.0100 ####[facility] [address] [place], [address] MCV (RBC) [Entitic vol] 96.8 fL Normal 81-99 [facility] Comment on above: Order Comment: REDRA W. PREVIOUS SPECIMEN REJECTED DUE TOQNS. 04/03/24 1107 Liza Sinha. Performed By: #### L 100.0100 ####[facility] [address] [place], [address] Monocytes/100 WBC (Bld) 5.5 % Normal 0-10 [facility] Comment on above: Order Comment: REDRA W. PREVIOUS SPECIMEN REJECTED DUE TOQNS. 04/03/24 1107 Liza Sinha. Performed By: #### L 100.0100 ####[facility] [address] [place], [address] Neutrophils/100 WBC (Bld) 82.7 % High 47-70 [facility] Comment on above: Order Comment: REDRA W. PREVIOUS SPECIMEN REJECTED DUE TOQNS. 04/03/24 1107 Liza Sinha. Performed By: #### L 100.0100 ####[facility] [address] [place], [address] Nucleated RBC (Bld) [#/Vol] 0 10*3/uL Normal 0-5 [facility] Comment on above: Order Comment: REDRA W. PREVIOUS SPECIMEN REJECTED DUE TOQNS. 04/03/24 1107 Liza Sinha. Performed By: #### L 100.0100 ####[facility] [address] [place], [address] Platelet mean volume (Bld) [Entitic vol] 9.9 fL Normal 6.2-12.0 [facility] Comment on above: Order Comment: REDRA W. PREVIOUS SPECIMEN REJECTED DUE TOQNS. 04/03/24 1107 Liza Sinha. Performed By: #### L 100.0100 ####[facility] [address] [place], [address] Platelets (Bld) [#/Vol] 132 10*3/uL Low 150-450 [facility] Comment on above: Order Comment: REDRA W. PREVIOUS SPECIMEN REJECTED DUE TOQNS. 04/03/24 1107 Liza Sinha. Performed By: #### L 100.0100 ####[facility] [address] [place], [address] RBC (Bld) [#/Vol] 3.79 10*6/uL Low 4.2-5.4 [facility] Comment on above: Order Comment: REDRA W. PREVIOUS SPECIMEN REJECTED DUE TOQNS. 04/03/24 1107 Liza Sinha. Performed By: #### L 100.0100 ####[facility] [address] [place], [address] RDW SD 50.6 fl High 35.1-43.9 [facility] Comment on above: Order Comment: REDRA W. PREVIOUS SPECIMEN REJECTED DUE TOQNS. 04/03/24 1107 Liza Sinha. Performed By: #### L 100.0100 ####[facility] [address] [place], [address] WBC (Bld) [#/Vol] 3.6 10*3/uL Low 4.4-11.0 [facility] Comment on above: Order Comment: REDRA W. PREVIOUS SPECIMEN REJECTED DUE TOQNS. 04/03/24 1107 Liza Sinha. Performed By: #### L 100.0100 ####[facility] [address] [place], [address] Absolute Neut Normal 2.0-7.7 [facility] Comment on above: Result Comment: This specimen has been REJECTED due to Laboratory criteria: Quanity Not Sufficient. RAEGAN has been notified of need of recollection. 04/03/24 1106 Liza Sinha Performed By: #### L 100.0100, L500.2500, L501.4020 #### [facility] [address] [place], [address] HCT Normal 37-47 [facility] Comment on above: Result Comment: This specimen has been REJECTED due to Laboratory criteria: Quanity Not Sufficient. RAEGAN has been notified of need of recollection. 04/03/24 1106 Liza Sinha Performed By: #### L 100.0100, L500.2500, L501.4020 #### [facility] [address] [place], [address] HGB Normal 12.0-15.0 [facility] Comment on above: Result Comment: This specimen has been REJECTED due to Laboratory criteria: Quanity Not Sufficient. RAEGAN has been notified of need of recollection. 04/03/24 1106 Liza Sinha Performed By: #### L 100.0100, L500.2500, L501.4020 #### [facility] [address] [place], [address] MCH Normal 27.0-32.0 [facility] Comment on above: Result Comment: This specimen has been REJECTED due to Laboratory criteria: Quanity Not Sufficient. RAEGAN has been notified of need of recollection. 04/03/24 1106 Liza Sinha Performed By: #### L 100.0100, L500.2500, L501.4020 #### [facility] [address] [place], [address] MCHC Normal 32-36 [facility] Comment on above: Result Comment: This specimen has been REJECTED due to Laboratory criteria: Quanity Not Sufficient. RAEGAN has been notified of need of recollection. 04/03/24 1106 Liza Sinha Performed By: #### L 100.0100, L500.2500, L501.4020 #### [facility] [address] [place], [address] MCV Normal 81-99 [facility] Comment on above: Result Comment: This specimen has been REJECTED due to Laboratory criteria: Quanity Not Sufficient. RAEGAN has been notified of need of recollection. 04/03/24 1106 Lzia Sinha Performed By: #### L 100.0100, L500.2500, L501.4020 #### [facility] [address] [place], [address] NEUT% Normal 47-70 [facility] Comment on above: Result Comment: This specimen has been REJECTED due to Laboratory criteria: Quanity Not Sufficient. RAEGAN has been notified of need of recollection. 04/03/24 1106 Liza Sinha Performed By: #### L 100.0100, L500.2500, L501.4020 #### [facility] [address] [place], [address] PLT Normal 150-450 [facility] Comment on above: Result Comment: This specimen has been REJECTED due to Laboratory criteria: Quanity Not Sufficient. RAEGAN has been notified of need of recollection. 04/03/24 1106 Liza Sinha Performed By: #### L 100.0100, L500.2500, L501.4020 #### [facility] [address] [place], [address] RBC Normal 4.2-5.4 [facility] Comment on above: Result Comment: This specimen has been REJECTED due to Laboratory criteria: Quanity Not Sufficient. RAEGAN has been notified of need of recollection. 04/03/24 1106 Liza Sinha Performed By: #### L 100.0100, L500.2500, L501.4020 #### [facility] [address] [place], [address] RDW CV Normal 11.6-14.6 [facility] Comment on above: Result Comment: This specimen has been REJECTED due to Laboratory criteria: Quanity Not Sufficient. RAEGAN has been notified of need of recollection. 04/03/24 1106 Liza Sinha Performed By: #### L 100.0100, L500.2500, L501.4020 #### [facility] [address] [place], [address] RDW SD Normal 35.1-43.9 [facility] Comment on above: Result Comment: This specimen has been REJECTED due to Laboratory criteria: Quanity Not Sufficient. RAEGAN has been notified of need of recollection. 04/03/24 1106 Liza Sinha Performed By: #### L 100.0100, L500.2500, L501.4020 #### [facility] [address] [place], [address] WBC Normal 4.4-11.0 [facility] Comment on above: Result Comment: This specimen has been REJECTED due to Laboratory criteria: Quanity Not Sufficient. RAEGAN has been notified of need of recollection. 04/03/24 1106 Liza Sinha Performed By: #### L 100.0100, L500.2500, L501.4020 #### [facility] [address] [place], [address] Carbon dioxide measurementOr dered By: Willy Burt on 04-03-2024 CO2 [Moles/Vol] 21.0 mmol/L 21.0-32.0 [facility] Chest PA and Lateralon 04-03 Chest PA and Lateral [facility] Imaging Services [address] [place] [address] Chest PA and Lateral MR#: [id number] Acct: [id number] Name: VIOLET HERNANDEZ Rep #: [id number] : 1985 F 38 From: Hi Pemberton MD PCP: Dr. Emily Sanders MD Status: REG ER Study: Chest PA and Lateral Date of Exam: 04/03/24 Exam# [id number] Ordering Dr: Willy Burt MD PROCEDURE: CHEST [...] Willy Burt MD; Dr. Emily Sanders MD Exchange Teller: Signed Normal [facility] Chloride measurementOrdered By: Willy Burt on 04-03-2024 Chloride [Moles/Vol] 109 mmol/L High 98-107 [facility] Emergency Department Summary on 04-03-2024 Emergency Department Summary [facility] Medical Records Department [address] [place] [address] Emergency Department Summary 04/03/24 MR#: [id number] Acct: [id number] Name: VIOLET HERNANDEZ Rep #: [id number] : 1985 38 From: Willy Burt MD [...] leg pain or swelling. No pleuritic discomfort. [facility] Medical History VALERA (nonalcoholic steatohepatitis) Osteopenia Obesity (BMI 30.0-34.9) Abdominal [...] Exam C (more content not included)... Normal [facility] Eosinophil percentageOrdered By: Willy Burt on 04-03-2024 Eosinophils/100 WBC (Bld) 0.0 % 0-5 [facility] Erythrocyte distribution wid th ratioOrdered By: Willy Burt 04-03-2024 Erythrocyte distribution width (RBC) [Ratio] 14.3 % 11.6-14.6 [facility] Erythrocyte distribution wid th standard deviationOrdered By: Willy Burt on 04-03-2024 Erythrocyte distribution width (RBC) [Entitic vol] 50.6 fL High 35.1-43.9 [facility] Erythrocyte distribution width (RBC) [Ratio] 50.6 fl High 35.1-43.9 [facility] Estimated glomerular filtrat ion rate (GFR) AmericanOrdered By: Willy Burt on 04-03-2024 Estimated GFR (MDRD) Amer 90 mL/min >60 [facility] Comment on above: GFR Calc Estimation of creatinine francisco aranceOrdered By: Willy Burt on 04-03-2024 Estimated Creatinine Clearance Calc 69.39 ml/min [facility] Glomerular filtration rate ( GFR) estimationOrdered By: Willy Burt 04-03-2024 Estimated GFR (MDRD) Non-Af Amer 74 mL/min >60 [facility] Comment on above: Non- GFR Calc GFR/1.73 sq M.predicted among non-blacks MDRD (S/P/Bld) [Vol rate/Area] 74 mL/min/{1.73_m2} >60 [facility] Comment on above: Non- GFR Calc Glucose measurementOrdered B y: Willy Burt on 04-03-2024 Glucose [Mass/Vol] 142 mg/dL High 74-106 [facility] Comment on above: Fasting Glucose resu lt greater than or equal to 126 mg/dL suggests DIABETES MELLITUS per A.D.A. criteria. Hematocrit Auto (Bld) [Volum e fraction]Ordered By: Willy Burt on 04-03-2024 Hematocrit (Bld) [Volume fraction] 36.7 % Low 37-47 [facility] Hemoglobin measurementOrdere d By: Willy Burt on 04-03-2024 Hemoglobin (Bld) [Mass/Vol] 12.7 g/dL 12.0-15.0 [facility] Immature granulocytes/100 WB C Auto (Bld)Ordered By: Willy Burt on 04-03-2024 Immature granulocytes/100 WBC (Bld) 0.800 % 0.0-0.9 [facility] Comment on above: IG% - Immature Granu locytes (promyelocytes, myelocytes and metamyelocytes) > 1% indicates that a LEFT SHIFT is Present. L501.4020on 04-03-2024 TROPONIN-I HS 4 pg/mL Normal 3.0-54.0 [facility] Comment on above: Order Comment: 'TROP ' Serial specimen #1, #2 or #3: 1 Result Comment: Odilia thompson Note: New Test Units and Gender Specific Reference Ranges. For more information see Policy Stat Procedure Lares High Sensitivity Troponin (TNIH) and attachments. Performed By: #### L 100.0100, L500.2500, L501.4020 #### [facility] [address] [place], [place], [address] Lymphocytes Auto (Unsp spec) [#/Vol]Ordered By: Willy Burt on 04-03-2024 Lymphocytes (Bld) [#/Vol] 0.39 10*3/uL Low 0.83-4.51 [facility] Lymphocytes/100 WBC Auto (Un sp spec)Ordered By: Willy Burt on 04-03-2024 Lymphocytes/100 WBC (Bld) 10.7 % Low 19-41 [facility] MCV (mean corpuscular volume ) determinationOrdered By: Willy Burt on 04-03-2024 MCV (RBC) [Entitic vol] 96.8 fL 81-99 [facility] Mean corpuscular hemoglobin (MCH) determinationOrdered By: Willy Burt on 04-03-2024 MCH (RBC) [Entitic mass] 33.5 pg High 27.0-32.0 [facility] Mean corpuscular hemoglobin concentration (MCHC) determinationOrdered By: Willy Burt on 04-03-2024 MCHC (RBC) [Mass/Vol] 34.6 g/dL 32-36 [facility] Mean platelet volume determi nationOrdered By: Willy Burt on 04-03-2024 Platelet mean volume (Bld) [Entitic vol] 9.9 fL 6.2-12.0 [facility] Monocyte percentageOrdered B y: Willy Burt on 04-03-2024 Monocytes/100 WBC (Bld) 5.5 % 0-10 [facility] Neutrophil percentageOrdered By: Willy Burt on 04-03-2024 Neutrophils/100 WBC (Bld) 82.7 % High 47-70 [facility] Nucleated red blood cell per centageOrdered By: Willy Burt on 04-03-2024 Nucleated RBC/100 WBC (Bld) [Ratio] 0 % 0-5 [facility] Platelet countOrdered By: Christiano Burt on 04-03-2024 Platelets (Bld) [#/Vol] 132 10*3/uL Low 150-450 [facility] Potassium measurementOrdered By: Willy Burt on 04-03-2024 Potassium [Moles/Vol] 4.7 mmol/L 3.5-5.1 [facility] RBC Auto (Bld) [#/Vol]Ordere d By: Willy Burt on 04-03-2024 RBC (Bld) [#/Vol] 3.79 10*6/uL Low 4.2-5.4 [facility] Serum anion gap measurementO rdered By: Willy Burt on 04-03-2024 Anion gap [Moles/Vol] 8 mmol/L 5-15 [facility] Serum or plasma calcium ana maria urement (mass/volume)Ordered By: Willy Burt on 04-03-2024 Calcium [Mass/Vol] 9.4 mg/dL 8.5-10.1 [facility] Serum or plasma creatinine m easurement (mass/volume)Ordered By: Willy Burt on 04-03-2024 Creatinine [Mass/Vol] 0.90 mg/dL 0.55-1.02 [facility] Comment on above: The validity of the calculated GFR & GFRAA in patients over 70 years has not been determined. Clinical correlation is essential. Serum or plasma urea nitroge n measurement (mass/volume)Ordered By: Willy Burt on 04-03-2024 Urea nitrogen [Mass/Vol] 12 mg/dL 7-18 [facility] Sodium levelOrdered By: Jad Burt on 04-03-2024 Sodium [Moles/Vol] 138 mmol/L 136-145 [facility] Troponin IOrdered By: Yasmani Burt on 04-03-2024 Troponin I 4 pg/mL 3.0-54.0 [facility] Comment on above: Please Note: New Daniela t Units and Gender Specific Reference Ranges. For more information see Policy Stat Procedure Lares High Sensitivity Troponin (TNIH) and attachments. Troponin I High Sensitivity 4 pg/mL 3.0-54.0 [facility] Comment on above: Please Note: New Daniela t Units and Gender Specific Reference Ranges. For more information see Policy Stat Procedure Lares High Sensitivity Troponin (TNIH) and attachments. White blood cell (WBC) count Ordered By: Willy Burt on 04-03-2024 WBC (Bld) [#/Vol] 3.6 10*3/uL Low 4.4-11.0 [facility] Chest PA and Lateralon 03-31 Chest PA and Lateral [facility] Imaging Services [address] [place], [place] [address] Chest PA and Lateral MR#: [id number] Acct: [id number] Name: VIOLET HERNANDEZ Rep #: [id number] : 1985 F 38 From: Delmer oneal MD PCP: Dr. Emily Sanders MD Status: REG ER Study: Chest PA and Lateral Date of Exam: 03/31/24 Exam# [id number] Ordering Dr: Alli Ding MD PROCEDURE: CHEST [...] No acute abnormality is seen. Reading Location: [facility] CC: Dr. Emily Sanders MD; Dr. Alli Ding MD Exchange Teller: Signed Normal [facility] Emergency Department Summary on 03-31-2024 Emergency Department Summary [facility] Medical Records Department [address] [place] [address] Emergency Department Summary 03/31/24 MR#: [id number] Acct: [id number] Name: VIOLET HERNANDEZ Rep #: [id number] : 1985 38 From: Alli Ding MD [...] Illness/Hospitalization : No PFSH PFSH Medical History VALERA (nonalcoholic steatohepatitis) Osteopenia Obesity (BMI 30.0-34.9) Abdominal [...] Denies a (more content not included)... Normal [facility] POCT SARS-COV-2/FLU/RSV PCR SYMPTOMATIC manually resultedOrdered By: Ana Cristina Gonzalez on 03-29-2024 FLUAV RNA MALKA+probe Ql (Resp) Detected Abnormal Not Detected [facility] FLUBV RNA MALKA+probe Ql (Resp) Not detected Not Detected [facility] Interpretation and review of laboratory results Abnormal [facility] RSV RNA MALKA+probe Ql (Resp) Not detected Not Detected [facility] SARS-CoV-2 (COVID-19) RNA MALKA+probe Ql (Resp) Not detected Not Detected [facility] L501.5101on 03-24-2024 GGTP 123 IU/L Abnormal 0-60 [facility] Comment on above: Result Comment: Perf ormed at: - [facility] [id number] [place], [place] [id number] Director Of Community Center: Jorgito Cunningham PhD, Phone: [phone] Performed By: #### L 100.0100, L500.2500, L501.4020 #### [facility] [address] [place], [address] Bilirubin directOrdered By: Jorgito Boogie on 03-23-2024 Bilirubin.direct [Mass/Vol] 0.08 mg/dL 0.00-0.30 [facility] Bilirubin, totalOrdered By: Jorgito Boogie on 03-23-2024 Bilirubin [Mass/Vol] 0.40 mg/dL 0.20-1.00 [facility] Comment on above: For patients on eltr ombopag therapy, use of Dimension Lares TBIL is not recommended. Gamma glutamyl transferase ( GGT) measurementOrdered By: Jorgito Boogie on 03-23-2024 Amylase [Catalytic activity/Vol] 123 U/L High 0-60 [facility] Comment on above: Performed at: - [facility] [id number] [place], [place] [id number] Director: Jorgito Cunningham PhD, Phone: [phone] Laboratory - Chemistry and C hemistry - challengeOrdered By: Jorgito Boogie on 03-23-2024 AST [Catalytic activity/Vol] 32 U/L 15-37 [facility] Liver Profileon 03-23-2024 Albumin [Mass/Vol] 3.7 g/dL Normal 3.2-5.0 [facility] Comment on above: Performed By: #### L 100.0100, L500.2500, L501.4020 #### [facility] [address] [place], [address] ALK P 115 U/L Normal 45-117 [facility] Comment on above: Performed By: #### L 100.0100, L500.2500, L501.4020 #### [facility] [address] [place], [address] ALT [Catalytic activity/Vol] 85 U/L High 13-56 [facility] Comment on above: Performed By: #### L 100.0100, L500.2500, L501.4020 #### [facility] [address] [place], [address] AST [Catalytic activity/Vol] 32 U/L Normal 15-37 [facility] Comment on above: Performed By: #### L 100.0100, L500.2500, L501.4020 #### [facility] [address] [place], [address] Bilirubin [Mass/Vol] 0.40 mg/dL Normal 0.20-1.00 [facility] Comment on above: Result Comment: For patients on eltrombopag therapy, use of Dimension Lares TBIL is not recommended. Performed By: #### L 100.0100, L500.2500, L501.4020 #### [facility] [address] [place], [address] Bilirubin.direct [Mass/Vol] 0.08 mg/dL Normal 0.00-0.30 [facility] Comment on above: Performed By: #### L 100.0100, L500.2500, L501.4020 #### [facility] [address] [place], [address] Globulin (S) [Mass/Vol] 3.2 g/dL Normal 2.2-4.2 [facility] Comment on above: Performed By: #### L 100.0100, L500.2500, L501.4020 #### [facility] [address] [place], [address] T PROT 6.9 g/dL Normal 6.4-8.2 [facility] Comment on above: Performed By: #### L 100.0100, L500.2500, L501.4020 #### [facility] [address] [place], [address] Serum globulin measurementOr dered By: Jorgito Boogie on 03-23-2024 Globulin (S) [Mass/Vol] 3.2 g/dL 2.2-4.2 [facility] Serum or plasma alanine valencia otransferase (ALT) measurementOrdered By: Jorgito Boogie on 03-23-2024 ALT [Catalytic activity/Vol] 85 U/L High 13-56 [facility] Serum or plasma albumin ana maria urement (mass/volume)Ordered By: Jorgito Boogie on 03-23-2024 Albumin [Mass/Vol] 3.7 g/dL 3.2-5.0 [facility] Serum or plasma alkaline juana sphatase measurementOrdered By: Jorgito Boogie on 03-23-2024 ALP [Catalytic activity/Vol] 115 U/L 45-117 [facility] Total proteinOrdered By: Boris Boogie on 03-23-2024 Protein [Mass/Vol] 6.9 g/dL 6.4-8.2 [facility] CNOVon 02-11-2024 CNOV Office Visit (OBGYWM ) DAVIDVIOLET Matt ([id number]) 1985 F Date Time Provider Department 02/11/24 1:20 PM LEO BARNETT OBGYWM During your visit today, we recorded the following information about you: Blood pressure Weight 108/66 67.1 kg Leo Barnett MD 02/11/2024 2:00 PM Signed Violet Gutierrez David is a 38 year old female who [...] L0 SAB0 IAB0 Ectopic0 Multiple0 Live Births0 [employer] History LMP: 06/09/2022 (Within Days), Hysterectomy Age at Menarche: Age at First : Age at Menopause: [employer] 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 [employer] History Comments: Sexual Activity: Yes; Male Contraception: Pill PAST MEDICAL HISTORY Diagnosis Date Anxiety Depression Leukopenia Mitral prolapse Premature ovarian failure PAST SURGICAL HISTORY Procedure Laterality Date BONE MARROW BIOPSY x 2 COLONOSCOPY SCREENING 11/05/2023 ORAL SURGERY PROCEDURE [facility] W/T/O 250 G OR LESS 11/10/2023 [...] which included preparing to see the patient, [id number] patient care, completing clinical documentation, obtaining and/or reviewing separately obtained history, performing a medically appropriate examination, and counseling and educating the patient/family/caregMD Louis Gould Deidre, MD 02/11/2024 1:59 PM Written Reviewed [...] breast [Z12.31] Hormone replacement therapy (HRT) [Z79.890] Order(s):[facility] SCREENING W LOW [1159485] Order #: [id number] FUTURE Prescriptions as of 02/11/2024 - multivit,thx,calcium,ir [...] valve prol (more content not included)... Normal [facility] Dexa Bone Density Studyon Dexa Bone Density Study [facility] Imaging Services [facility] [address] [place], [place] [id number] Dexa Bone Density Study MR#: [id number] Acct: [id number] Name: VIOLET HERNANDEZ Rep #: [id number] : 1985 F 38 From: Jad Mares MD PCP: Dr. Emily Sanders MD Status: [facility] Study: Dexa Bone Density Study Date of Exam: 02/11/24 Exam# [id number] Ordering Dr: [place] [id number] STUDY: DUAL ENERGY X-RAY ABSORPTIOMETRY / DXA [...] EST , CC: Dr. Emily Sanders MD Exchange Teller: Signed Normal [facility] L501.5101on 02-10-2024 GGTP 143 IU/L Abnormal 0-60 [facility] Comment on above: Result Comment: Perf ormed at: CB - [facility] [address] [id number] Director Of Community Center: Jorgito Cunningham PhD, Phone: [phone] Performed By: #### L 710.0339, O235.2788 #### [facility] [place], [address] Bilirubin directOrdered By: Jorgito Boogie on 02-08-2024 Bilirubin.direct [Mass/Vol] 0.06 mg/dL 0.00-0.30 [facility] Bilirubin, totalOrdered By: Jorgito Boogie on 02-08-2024 Bilirubin [Mass/Vol] 0.20 mg/dL 0.20-1.00 [facility] Comment on above: For patients on eltr ombopag therapy, use of Dimension Lares TBIL is not recommended. C-reactive protein measureme nt by high sensitivity methodOrdered By: Jorgito Boogie on 02-08-2024 C-Reactive Protein Extended Range < 2.90 mg/L 0.0-3.0 [facility] Comment on above: C-Reactive Protein ( CRP) provides useful information for thediagnosis, therapy and monitoring of inflammatory processesand associated diseases. For the evaluation of Relative Riskfor Cardiovascular Disease, a High Sensitivity CRP (HSCRP)should be ordered. CRPon 02-08-2024 C-REACTIVE PROT < 2.90 Normal 0.0-3.0 [facility] Comment on above: Result Comment: C-Re active Protein (CRP) provides useful information for the diagnosis, therapy and monitoring of inflammatory processes and associated diseases. For the evaluation of Relative Risk for Cardiovascular Disease, a High Sensitivity CRP (HSCRP) should be ordered. Performed By: #### L 501.9520, L506.0400 #### [facility] [address] [place], [place], [address] Gamma glutamyl transferase ( GGT) measurementOrdered By: Jorgito Boogie on 02-08-2024 Amylase [Catalytic activity/Vol] 143 U/L High 0-60 [facility] Comment on above: Performed at: [place] [id number] Director: Jorgito Cunningham PhD, Phone: [phone] Laboratory - Chemistry and C hemistry - challengeOrdered By: Jorgito Boogie on 02-08-2024 AST [Catalytic activity/Vol] 46 U/L High 15-37 [facility] Liver Profileon 02-08-2024 Albumin [Mass/Vol] 3.7 g/dL Normal 3.2-5.0 [facility] Comment on above: Performed By: #### L 501.9520, L506.0400 #### [facility] [address] [place], [place], [address] ALK P 102 U/L Normal 45-117 [facility] Comment on above: Performed By: #### L 501.9520, L506.0400 #### [facility] [address] [place], [address] ALT [Catalytic activity/Vol] 127 U/L High 13-56 [facility] Comment on above: Performed By: #### L 501.9520, L506.0400 #### [facility] [address] [place], [address] AST [Catalytic activity/Vol] 46 U/L High 15-37 [facility] Comment on above: Performed By: #### L 501.9520, L506.0400 #### [facility] [address] [place], [address] Bilirubin [Mass/Vol] 0.20 mg/dL Normal 0.20-1.00 [facility] Comment on above: Result Comment: For patients on eltrombopag therapy, use of Dimension Lares TBIL is not recommended. Performed By: #### L 501.9520, L506.0400 #### [facility] [address] [place], [address] Bilirubin.direct [Mass/Vol] 0.06 mg/dL Normal 0.00-0.30 [facility] Comment on above: Performed By: #### L 501.9520, L506.0400 #### [facility] [address] [place], [address] Globulin (S) [Mass/Vol] 3.2 g/dL Normal 2.2-4.2 [facility] Comment on above: Performed By: #### L 501.9520, L506.0400 #### [facility] [address] [place], [address] T PROT 6.9 g/dL Normal 6.4-8.2 [facility] Comment on above: Performed By: #### L 501.9520, L506.0400 #### [facility] [address] [place], [address] Serum globulin measurementOr dered By: Jorgito Boogie on 02-08-2024 Globulin (S) [Mass/Vol] 3.2 g/dL 2.2-4.2 [facility] Serum or plasma alanine valencia otransferase (ALT) measurementOrdered By: Jorgito Boogie on 02-08-2024 ALT [Catalytic activity/Vol] 127 U/L High 13-56 [facility] Serum or plasma albumin ana maria urement (mass/volume)Ordered By: Jorgito Boogie on 02-08-2024 Albumin [Mass/Vol] 3.7 g/dL 3.2-5.0 [facility] Serum or plasma alkaline juana sphatase measurementOrdered By: Jorgito Boogie on 02-08-2024 ALP [Catalytic activity/Vol] 102 U/L 45-117 [facility] Total proteinOrdered By: Boris Boogie on 02-08-2024 Protein [Mass/Vol] 6.9 g/dL 6.4-8.2 [facility] Coronary Angiography CTon Coronary Angiography CT [facility] Imaging Services [address] [place] [address] 01/18/24 1459 MR#: [id number] Acct: [id number] Name: VIOLET HERNANDEZ Rep #: [id number] : 1985 38 From: Ricki Forrest MD [...] MD; Dr. Emily Sanders MD Signed Normal [facility] Limited Chest CT Cardiac Onl yon 01-18-[address] Cardiac Only [facility] Imaging Services [address] [place] [address] Cardiac Only MR#: [id number] Acct: [id number] Name: VIOLET HERNANDEZ Rep #: [id number] : 1985 F 38 From: Delmer oneal MD PCP: Dr. Emily Sanders MD Status: [facility] Study: Limited Chest CT Cardiac Only Date of Exam: Exam# [id number] Ordering Dr: [place] [id number] STUDY: CT CHEST with CONTRAST REASON FOR [...] Ghada Magana MD; Dr. Emily Sanders MD Exchange Teller: Signed Normal [facility] CBC W/Diff, Automatedon 12-0 PATH REV Reviewed Normal [facility] Comment on above: Result Comment: MACR OCYTIC RBC's LEUKOPENIA, MILD MILD Thrombocytopenia. Clinical correlation suggested. Haris Fang D.O. 01/15/24 AMENDED REPORT 01/15/24 1415 PATH REV previously reported as: June Performed By: #### L 501.9520, L506.0400 #### [facility] [address] [place], [address] CNOVon 01-15-2024 CNOV Office Visit (GMIGFV ) VIOLET HERNANDEZ ([id number]) 1985 F Date Time Provider Department 01/15/24 1:45 PM LEE KATZ GMIGFV During your visit today, we recorded the following information about you: Blood pressure Weight Height 119/78 68 kg 1.499 m Mikie Lee, 01/19/2024 1:58 PM Signed [facility] [place] SECTION FOR MINIMALLY INVASIVE GYNECOLOGIC SURGERY OUTPATIENT [...] at her post op appointment with the ELECTRONICS ENGINEERING TECHNICIAN on 12/17/2023 was told on her Vaginal [...] ordered this (more content not included)... Normal [facility] [id number]-HN-Uslubnj DOrdered By: Manuela Sanders on 01-14-2024 Vitamin D 25-Hydroxy 46.9 ng/mL [facility] Comment on above: Vitamin D 25(OH) Sta tus Range Deficiency <20 ng/mL (50nmol/L) Insufficiency 20 - 30 ng/mL (50 - 75 nmol/L) Sufficiency 30 - 100 ng/mL (75 - 250 nmol/L) Toxicity >100 ng/mL (>250 nmol/L) Absolute neutrophil countOrd ered By: Emily Sanders on 01-14-2024 Neutrophils (Bld) [#/Vol] 1.2 10*3/uL Low 2.0-7.7 [facility] Albumin to globulin ratioOrd ered By: Emily Sanders on 01-14-2024 Albumin/Globulin [Mass ratio] 1.4 {ratio} 0.9-2.4 [facility] Basophil percentageOrdered B y: Emily Sanders on 01-14-2024 Basophils/100 WBC (Bld) 0.9 % 0-1 [facility] Bilirubin, totalOrdered By: Emily Sanders on 01-14-2024 Bilirubin [Mass/Vol] 0.30 mg/dL 0.20-1.00 [facility] Comment on above: For patients on eltr ombopag therapy, use of Dimension Lares TBIL is not recommended. Blood urea nitrogen (BUN)/cr eatinine ratioOrdered By: Emily Sanders on 01-14-2024 Urea nitrogen/Creatinine [Mass ratio] 17.6 mg/mg 10-20 [facility] Carbon dioxide measurementOr dered By: Emily Sanders on 01-14-2024 CO2 [Moles/Vol] 25.0 mmol/L 21.0-32.0 [facility] Chloride measurementOrdered By: Emily Sanders on 01-14-2024 Chloride [Moles/Vol] 108 mmol/L High 98-107 [facility] Comprehensive Metabolic Prof ilon 01-14-2024 Albumin [Mass/Vol] 3.8 g/dL Normal 3.2-5.0 [facility] Comment on above: Performed By: #### L 501.9520, L506.0400 #### [facility] [address] [place], [address] Albumin/Globulin [Mass ratio] 1.4 {ratio} Normal 0.9-2.4 [facility] Comment on above: Performed By: #### L 501.9520, L506.0400 #### [facility] [address] [place], [address] ALK P 96 U/L Normal 45-117 [facility] Comment on above: Performed By: #### L 501.9520, L506.0400 #### [facility] [address] [place], [address] ALT [Catalytic activity/Vol] 101 U/L High 13-56 [facility] Comment on above: Performed By: #### L 501.9520, L506.0400 #### [facility] [address] [place], [address] AST [Catalytic activity/Vol] 59 U/L High 15-37 [facility] Comment on above: Performed By: #### L 501.9520, L506.0400 #### [facility] [address] [place], [address] Bilirubin [Mass/Vol] 0.30 mg/dL Normal 0.20-1.00 [facility] Comment on above: Result Comment: For patients on eltrombopag therapy, use of Dimension Lares TBIL is not recommended. Performed By: #### L 501.9520, L506.0400 #### [facility] [address] [place], [address] BUN/CRE 17.6 RATIO Normal 10-20 [facility] Comment on above: Performed By: #### L 501.9520, L506.0400 #### [facility] [address] [place], [address] CA,Total 9.4 mg/dL Normal 8.5-10.1 [facility] Comment on above: Performed By: #### L 501.9520, L506.0400 #### [facility] [address] [place], [address] Chloride [Moles/Vol] 108 mmol/L High 98-107 [facility] Comment on above: Performed By: #### L 501.9520, L506.0400 #### [facility] [address] [place], [address] CO2 [Moles/Vol] 25.0 mmol/L Normal 21.0-32.0 [facility] Comment on above: Performed By: #### L 501.9520, L506.0400 #### [facility] [address] [place], [address] Creatinine [Mass/Vol] 0.85 mg/dL Normal 0.55-1.02 [facility] Comment on above: Result Comment: The validity of the calculated GFR GFRAA in patients over 70 years has not been determined. Clinical correlation is essential. Performed By: #### L 501.9520, L506.0400 #### [facility] [address] [place], [address] EST GFR - AA 96 mL/min Normal >60 [facility] Comment on above: Result Comment: Afri can Mauritanian GFR Calc Performed By: #### L 501.9520, L506.0400 #### [facility] [address] [place], [address] GAP 6 Normal 5-15 [facility] Comment on above: Performed By: #### L 501.9520, L506.0400 #### [facility] [address] [place], [address] GFR/1.73 sq M.predicted among non-blacks MDRD (S/P/Bld) [Vol rate/Area] 79 mL/min/{1.73_m2} Normal >60 [facility] Comment on above: Result Comment: Non- GFR Calc Performed By: #### L 501.9520, L506.0400 #### [facility] [address] [place], [address] Globulin (S) [Mass/Vol] 2.7 g/dL Normal 2.2-4.2 [facility] Comment on above: Performed By: #### L 501.9520, L506.0400 #### [facility] [address] [place], [address] Glucose [Mass/Vol] 90 mg/dL Normal 74-106 [facility] Comment on above: Performed By: #### L 501.9520, L506.0400 #### [facility] [address] [place], [address] Potassium [Moles/Vol] 4.1 mmol/L Normal 3.5-5.1 [facility] Comment on above: Performed By: #### L 501.9520, L506.0400 #### [facility] [address] [place], [address] Sodium [Moles/Vol] 139 mmol/L Normal 136-145 [facility] Comment on above: Performed By: #### L 501.9520, L506.0400 #### [facility] [address] [place], [address] T PROT 6.5 g/dL Normal 6.4-8.2 [facility] Comment on above: Performed By: #### L 501.9520, L506.0400 #### [facility] [address] [place], [address] Urea nitrogen [Mass/Vol] 15 mg/dL Normal 7-18 [facility] Comment on above: Performed By: #### L 501.9520, L506.0400 #### [facility] [address] [place], [address] Eosinophil percentageOrdered By: Emily Sanders on 01-14-2024 Eosinophils/100 WBC (Bld) 4.7 % 0-5 [facility] Erythrocyte distribution wid th ratioOrdered By: Emily Sanders on 01-14-2024 Erythrocyte distribution width (RBC) [Ratio] 13.2 % 11.6-14.6 [facility] Erythrocyte distribution wid th standard deviationOrdered By: Emily Sanders on 01-14-2024 Erythrocyte distribution width (RBC) [Entitic vol] 51.0 fL High 35.1-43.9 [facility] Estimated glomerular filtrat ion rate (GFR) AmericanOrdered By: Emily Sanders on 01-14-2024 Estimated GFR (MDRD) Amer 96 mL/min >60 [facility] Comment on above: GFR Calc Glomerular filtration rate ( GFR) estimationOrdered By: Emily Sanders on 01-14-2024 Estimated GFR (MDRD) Non-Af Amer 79 mL/min >60 [facility] Comment on above: Non- GFR Calc Glucose measurementOrdered B y: Emily Sanders on 01-14-2024 Glucose [Mass/Vol] 90 mg/dL 74-106 [facility] Hematocrit Auto (Bld) [Volum e fraction]Ordered By: Eduardolilliejimmyjaron Pringlerileymanuela on 01-14-2024 Hematocrit (Bld) [Volume fraction] 36.8 % Low 37-47 [facility] Hemoglobin measurementOrdere d By: Emily Sanders on 01-14-2024 Hemoglobin (Bld) [Mass/Vol] 12.6 g/dL 12.0-15.0 [facility] Immature granulocytes/100 WB C Auto (Bld)Ordered By: monserrat Sanders on 01-14-2024 Immature granulocytes/100 WBC (Bld) 0.000 % 0.0-0.9 [facility] Comment on above: IG% - Immature Granu locytes (promyelocytes, myelocytes and metamyelocytes) > 1% indicates that a LEFT SHIFT is Present. Laboratory - Chemistry and C hemistry - challengeOrdered By: Emily Sanders on 01-14-2024 AST [Catalytic activity/Vol] 59 U/L High 15-37 [facility] Lymphocytes Auto (Unsp spec) [#/Vol]Ordered By: Emily Sanders on 01-14-2024 Lymphocytes (Bld) [#/Vol] 0.53 10*3/uL Low 0.83-4.51 [facility] Lymphocytes/100 WBC Auto (Un sp spec)Ordered By: Emily Sanders on 01-14-2024 Lymphocytes/100 WBC (Bld) 22.6 % 19-41 [facility] MCV (mean corpuscular volume ) determinationOrdered By: Emily Sanders on 01-14-2024 MCV (RBC) [Entitic vol] 106.1 fL High 81-99 [facility] Manual differential comment Robin (Bld) [Interp]Ordered By: Emily Sanders on 01-14-2024 Differential Comment COMMENT [facility] Comment on above: LYMPHOPENIA. Mean corpuscular hemoglobin (MCH) determinationOrdered By: Emily Sanders on 01-14-2024 MCH (RBC) [Entitic mass] 36.3 pg High 27.0-32.0 [facility] Mean corpuscular hemoglobin concentration (MCHC) determinationOrdered By: Emily Sanders on 01-14-2024 MCHC (RBC) [Mass/Vol] 34.2 g/dL 32-36 [facility] Mean platelet volume determi nationOrdered By: Emily Sanders on 01-14-2024 Platelet mean volume (Bld) [Entitic vol] 11.3 fL 6.2-12.0 [facility] Monocyte percentageOrdered B y: Emily Sanders on 01-14-2024 Monocytes/100 WBC (Bld) 20.4 % High 0-10 [facility] Neutrophil percentageOrdered By: Emily Sanders on 01-14-2024 Neutrophils/100 WBC (Bld) 51.4 % 47-70 [facility] Nucleated red blood cell per centageOrdered By: Emily Sanders on 01-14-2024 Nucleated RBC/100 WBC (Bld) [Ratio] 0 % 0-5 [facility] Pathologist review Robin (Unsp spec) [Interp]Ordered By: Emily Sanders on 01-14-2024 Differential Pathologist's Review Reviewed [facility] Comment on above: Previous reported re sult: Yajaira falk Edited by: LIANNE on 01/15/24:1415MACROCYTIC RBC'sLEUKOPENIA, MILDMILD Thrombocytopenia.Clinical correlation suggested.Haris Fang D.O. 01/15/24 AMENDED REPORT 01/15/24 1415 PATH REV previously reported as: Yajaira falk Platelet countOrdered By: Eduardo Sanders on 01-14-2024 Platelets (Bld) [#/Vol] 145 10*3/uL Low 150-450 [facility] Potassium measurementOrdered By: Emily Sanders on 01-14-2024 Potassium [Moles/Vol] 4.1 mmol/L 3.5-5.1 [facility] RBC Auto (Bld) [#/Vol]Ordere d By: Emily Sanders on 01-14-2024 RBC (Bld) [#/Vol] 3.47 10*6/uL Low 4.2-5.4 [facility] Serum anion gap measurementO rdered By: Emily Sanders on 01-14-2024 Anion gap [Moles/Vol] 6 mmol/L 5-15 [facility] Serum globulin measurementOr dered By: Emily Sanders on 01-14-2024 Globulin (S) [Mass/Vol] 2.7 g/dL 2.2-4.2 [facility] Serum or plasma alanine valencia otransferase (ALT) measurementOrdered By: Emily Sanders on 01-14-2024 ALT [Catalytic activity/Vol] 101 U/L High 13-56 [facility] Serum or plasma albumin ana maria urement (mass/volume)Ordered By: Emily Sanders 01-14-2024 Albumin [Mass/Vol] 3.8 g/dL 3.2-5.0 [facility] Serum or plasma alkaline juana sphatase measurementOrdered By: Eimly Sanders 01-14-2024 ALP [Catalytic activity/Vol] 96 U/L 45-117 [facility] Serum or plasma calcium ana maria urement (mass/volume)Ordered By: Emily Sanders on 01-14-2024 Calcium [Mass/Vol] 9.4 mg/dL 8.5-10.1 [facility] Serum or plasma creatinine m easurement (mass/volume)Ordered By: Emily Sanders 01-14-2024 Creatinine [Mass/Vol] 0.85 mg/dL 0.55-1.02 [facility] Comment on above: The validity of the calculated GFR & GFRAA in patients over 70 years has not been determined. Clinical correlation is essential. Serum or plasma urea nitroge n measurement (mass/volume)Ordered By: Emily Sanders on 01-14-2024 Urea nitrogen [Mass/Vol] 15 mg/dL 7-18 [facility] Sodium levelOrdered By: Rocio Sanders on 01-14-2024 Sodium [Moles/Vol] 139 mmol/L 136-145 [facility] Total proteinOrdered By: Kaleb Sanders on 01-14-2024 Protein [Mass/Vol] 6.5 g/dL 6.4-8.2 [facility] Vitamin D,25 Hydroxyon 01-13 Vitamin D 25-OH 46.9 ng/mL Normal [facility] Comment on above: Result Comment: Nicole min D 25(OH) Status Range Deficiency <20 ng/mL (50nmol/L) Insufficiency 20 - 30 ng/mL (50 - 75 nmol/L) Sufficiency 30 - 100 ng/mL (75 - 250 nmol/L) Toxicity >100 ng/mL (>250 nmol/L) Performed By: #### L 100.0100, L500.2500, L501.4020 #### [facility] [address] [place], [address] White blood cell (WBC) count Ordered By: Emily Sanders on 01-14-2024 WBC (Bld) [#/Vol] 2.4 10*3/uL Low 4.4-11.0 [facility] Abdomen Limitedon 01-12-2024 Abdomen Limited [facility] [address] [place], [place] [address] Abdomen Limited MR#: [id number] Acct: [id number] Name: VIOLET HERNANDEZ Rep #: [id number] : 1985 F 38 From: Jad Mares MD PCP: Dr. Emily Sanders MD Status: REG CLI Study: Abdomen Limited Date of Exam: 01/12/24 Exam# [id number] Ordering [place]: [place] [id number] STUDY: ABDOMINAL ULTRASOUND - RIGHT UPPER QUADRANT [...] Emily Sanders MD; Dr. Jorgito Boogie MD Exchange Teller: Signed Normal [facility] Internal Medicine Office Vis sabas 12-31-2023 Internal Medicine Office Visit [facility] [address] [place] [address] [address] [place] [address] OFFICE VISIT Date of Service: 12/31/23 MR#: [id number] Acct: [id number] Name: VIOLET HERNANDEZ Rep #: [id number] : 1985 Provider: Dr. Emily fofana MD Age/Sex: 38/F Location: [facility] Status: Signed Intake Vital Signs 10/06/23 09:35 [...] DENSITY DISCUSSION Chief Complaint: bone density discussion Assisted Living Associate Required: No Accompanied by: Self Is patient [...] @ 17:[address] Emily Sanders MD) VALERA (nonalcoholic steatohepatitis) Osteopenia Obesity (BMI 30.0-34.9) Abdominal [...] She states that during her recent hysterectomy, [facility]ICE DRIER OPERATOR was concerned about bone loss. History of premature ovarian failure. Last bone density scan done almost 10 years ago suggestive of osteopenia. No recent fractures. Other chronic conditions are stable. She states that she recently had labs done at the [facility] prior to her surgery with elevated liver [...] or wounds (more content not included)... Normal [facility] BACTERIAL VAGINOSIS NAATon 1 02-15-2023 Lactobacillus crispatus+gasseri+yonatan enii + Gardnerella vaginalis + Atopobium vaginae rRNA MALKA+probe Ql (Vag fld) Negative Normal Negative for bacterial vaginosis [facility] Comment on above: Order Comment: Speci men Type: SWABOrdering Facility: [facility] Address: [address] [place] [address] Performed By: #### B VAMP, CVTV ####[facility] LABCLIA [id number] [place] [address] [place] JORDYN/TRICHOMONAS NAATon 1 02-15-2023 C. glabrata RNA MALKA+probe Ql (Vag fld) Negative Normal Negative for Jordyn glabrata [facility] Comment on above: Order Comment: Speci men Type: SWABOrdering Facility: [facility] Address: [address] [place] [address] Performed By: #### B VAMP, CVTV ####[facility] LABCLIA [id number] [place] [address] [place] Jordyn sp DNA MALKA+probe Ql (Vag fld) Negative Normal Negative for Jordyn species [facility] Comment on above: Order Comment: Speci men Type: SWABOrdering Facility: [facility] Address: [address] [place] [address] Performed By: #### B VAMP, CVTV ####[facility] LABCLIA [id number] [place] [address] [place] T. vaginalis DNA MALKA+probe Ql (Unsp spec) Negative Normal Negative for Trichomonas vaginalis by amplification [facility] Comment on above: Order Comment: Speci men Type: SWABOrdering Facility: [facility] Address: [address] [place] [address] Performed By: #### NATE DUNCAN ####[facility] LABCLIA [id number] [address] [place] [id number] [address] [place] CNOVon 12-17-2023 CNOV Office Visit (GMIGMN ) CATINAVIOLET SUTHERLAND ([id number]) 1985 F Date Time Provider Department 12/17/23 3:00 PM YENNIFER TOMAS IGMN During your visit today, we recorded the following information about you: Blood pressure Weight Height Last Period 124/80 71.4 kg 1.473 m 06/09/22 Pete Gill MA 12/17/2023 3:51 PM Signed Exam chaperoned by Pete Gill MA December 17, 2023 3:10 PM Yennifer Tomas, HYDROBLASTER.ADJUNCT PROFESSOR OF ENGLISH 12/17/2023 3:51 PM Signed [facility] Department of Benign Gynecology [facility] PATIENT NAME: Violet Hernandez PCP: Emily Sanders [...] L0 SAB0 IAB0 Ectopic0 Multiple0 Live Births0 Earth Science Technical Officer History LMP: 06/09/2022 (Within Days), Hysterectomy Age at Menarche: Age at First : Age at Menopause: Earth Science Technical Officer History Comments: Sexual Activity: Yes; Male Contraception: Pill PAST MEDICAL HISTORY Diagnosis Date Anxiety Depression Leukopenia Mitral prolapse Premature ovarian failure PAST SURGICAL HISTORY Procedure Laterality Date BONE MARROW BIOPSY x 2 COLONOSCOPY SCREENING 11/05/2023 ORAL SURGERY PROCEDURE TLH W/T/O 250 G OR LESS 11/10/2023 PHYSICAL EXAM: The sensitive examination was discussed with the Patient or Patient's Authorized Medical Chief Technician. As applicable, any other physician, advance practice provider, medical student, or other health professional student that will be observing or involved in the sensitive examination for educational or training purposes was discussed with the Patient or Authorized Medical Chief Technician. The Patient or Authorized Medical Chief Technician has agreed to proceed with the sensitive examination. (Sensitive examination includes inspection and/or palpation of the breasts, pelvis, prostate and anorectal regions) Surgical Nurse Practitioner offered: Patient accepts, visit chaperoned by Pete [...] Keep upcoming appointment with Dr. Mikie Tomas, HYDROBLASTER.ADJUNCT PROFESSOR OF ENGLISH December 17, 2023 3:14 PM Allergies As of Date: 12/17/2023 (No Known Allergies) Date Reviewed: 12/17/2023 Reviewed by: Pete Gill MA - Fully Assessed Reason for Visit: Post-Op Visit [1236] Cmt: Cuff check. Patient states she has been experiencing bleeding with bowel movements, is believes the blood is vaginal. Primary Visit Diagnosis:Vaginal discharge [N89.8] Order(s):JORDYN/TRICHO MONAS NAAT [SQCVTV] Order #: [id number]. #:[id number] BACTERIAL VAGINOSIS NAAT [SQBVAMP] Order #: [id number]. #:[id number] Prescriptions as of 12/17/2023 - estradiol (ESTRACE) [...] mouth e (more content not included)... Normal [facility] Internal Medicine Office Vis iton 12-11-2023 Internal Medicine Office Visit [facility] [address] [place] [address] [place] [address] OFFICE VISIT Date of Service: 12/11/23 MR#: [id number] Acct: [id number] Name: VIOLET HERNANDEZ Rep #: [id number] : 1985 Provider: MOY adamson Age/Sex: 38/F Location: [facility] Status: Signed Intake Vital Signs 10/06/23 09:35 [...] servings: 1 HPI HPI Chief Complaint: ACUTE [facility] Details: VIOLET HERNANDEZ, is a 38 F who presents to the office today for a f/u appointment from the [facility]. Patient was evaluated on 11/30/2023 for 3 to 4-day history of dysuria and urinary frequency with suprapubic pressure. She did not develop any fevers, hematuria, low back pain, or flank pain. She states she underwent a hysterectomy through the [facility] on 11/10/2023. Urine dipstick was positive in [...] negative. She has a f/u appt with RICE DRIER OPERATOR next week due to ongoing vaginal bleeding, [...] with A (more content not included)... Normal [facility] Cardiology Visit Reporton Cardiology Visit Report [facility] [address] [place] [address] OFFICE VISIT Date of Service: 12/08/23 MR#: [id number] Acct: [id number] Name: VIOLET HERNANDEZ Rep #: [id number] : 1985 Provider: Dr. Ghada Magana MD Age/Sex: 38/F Location: [facility] Status: Signed HPI HPI History of Present [...] air Intake Visit Reasons: 1 Y FU Assisted Living Associate Required: No Accompanied by: Self Is patient [...] ejection fra (more content not included)... Normal [facility] 12-06-2023 CNPN Telephone (GYNMN) VIOLET HERNANDEZ ([id number]) 1985 F Date Time Provider Department 12/06/23 LEE BELTRE GYNNH During your visit today, we recorded the following information about you: Lee Beltre MD 12/06/2023 3:48 PM Addendum Telephone Encounter Violet Hernandez [id number] Provider: Dr. Katz Surgery: TLH, BSO, cysto [...] Ms. Hernandez a follow up appointment with [facility] this week. Counseled electronic integrated systems mechanic-back precautions including persistent or worsening of symptoms. [...] decide to go the ED. Discussed with [facility] fellow, Dr. Weston. Lee Beltre MD 12/06/23 2:36 PM Allergies As of Date: 12/06/2023 (No Known Allergies) Date Reviewed: 11/24/2023 Reviewed by: Yennifer Tomas APRN.ADJUNCT PROFESSOR OF ENGLISH - Fully Assessed Prescriptions as of 12/06/2023 [...] Status:Closed by LEE BELTRE on 12/06/23 Normal [facility] Urine Cultureon 12-02-2023 URC Below infection leve l. Mixed Gram Pos Gram Neg Org [place] Count <1000 MIXC Mixed contaminants. Submit a new specimen if indicated. Normal [facility] Comment on above: Performed By: #### L 100.0100, L500.2500, L501.4020 #### [facility] [address] [place], [place], [id number] Urgent Care Visit Reporton 1 Urgent Care Visit Report [facility] [address], [address] [place], [place] [address] OFFICE VISIT Date of Service: 11/30/23 MR#: [id number] Acct: [id number] Name: VIOLET HERNANDEZ Rep #: [id number] : 1985 Provider: ELIZABETH Lala Age/Sex: 38/F Location: [facility] Status: Signed Intake Vital Signs 10/06/23 09:35 [...] No Known Allergies Allergy (Verified 11/30/23 13:06) [facility] Medical History Obesity (BMI 30.0-34.9) Abdominal pain [...] usual; no new urethral/ vaginal discharge. No raex-atm-rlnmjky products taken to assist. No other associated [...] Fletcher on 11/30/23 13:08 Off Ur Spec [place] 1.020 Last Edit by Melody Fletcher on 11/30/23 13:08 Office Urine pH 6.0 Last Edit by Melody Bustos (more content not included)... Normal [facility] Urinalysis, Completeon 11-29 BACTERIA 1+ /hpf Normal None Seen [facility] Comment on above: Order Comment: CLEAN CATCH Performed By: #### L 100.0100, L500.2500, L501.4020 #### [facility] [address] [place], [address] EPI,SQUAMOUS 0-5 SEEN Normal 5-10 [facility] Comment on above: Order Comment: CLEAN CATCH Performed By: #### L 100.0100, L500.2500, L501.4020 #### [facility] [address] [place], [address] RBC 0-5 SEEN Normal 0-5 [facility] Comment on above: Order Comment: CLEAN CATCH Performed By: #### L 100.0100, L500.2500, L501.4020 #### [facility] [address] [place], [address] WBC 10-25 SEEN Normal 0-5 [facility] Comment on above: Order Comment: CLEAN CATCH Performed By: #### L 100.0100, L500.2500, L501.4020 #### [facility] [address] [place], [address] Mucus Ql (Urine sed) 0 SEEN Normal [facility] Comment on above: Order Comment: CLEAN CATCH Performed By: #### L 100.0100, L500.2500, L501.4020 #### [facility] [address] [place], [address] CNPNon 11-13-2023 CNPN Telephone (TRMN) VIOLET HERNANDEZ ([id number]) 1985 F Date Time Provider Department 11/13/23 LEE KATZ [facility] During your visit today, we recorded the following information about you: Valentine Crump 11/13/2023 8:19 AM Signed Pt post hysto and having sharp pains. Wants to know if that's normal. Belly button oozing clear fluid. Please advise [phone] Tracey Fowler RN 11/13/2023 12:13 PM Signed Returned patient's [...] if she experiences increased pain. Patient has energy attorney electronic integrated systems mechanic number and will call with any further concerns. SHARMILA Echeverria Savannah 11/19/2023 3:36 PM Signed Patient calling in stating that her stitches on top of belly button incision came out. This morning she noticed some dried blood around the area. Please advise: [phone] Chelsi Alvarado Amanda, RN 11/19/2023 4:17 PM Signed Returned patient's call, [...] further concerns, and to send photo via [employer] if anything looks concerning, for our team [...] Encounter Status:Closed by VALENTINE CRUMP on 11/13/23 Normal [facility] CNPCoco 11-12-2023 CNPN Telephone (GYNMN) VIOLET HERNANDEZ ([id number]) 1985 F Date Time Provider Department 11/12/23 LEE KATZ GYNNH During your visit today, we recorded the [...] in their postop instructions After hours fellow electronic integrated systems mechanic [phone] Office number [phone] (M-F, 8-4:30) Patient advised to call 911 [...] Center 11/24/2023 4:00 PM Yennifer Tomas APRN.DANA VERDIN [facility] 01/15/2024 1:45 PM Lee Katz DO GMIGFV [facility] 05/20/2024 4:00 PM Sherly Ng APRN.DANA Bullock Patient questions/concerns: NONE Allergies As of Date: [...] Encounter Status:Closed by JULIA PEREZ on 11/12/23 [facility] ANES POSTPROC EVALon 024 ANES POSTPROC EVAL HNO ID: [id number] Author: TIGIST JENKINS MD Service: ? Author Type: Anesthesiologist Type: Anesthesia Postprocedure Evaluation Filed: 11/11/2023 14:01 Note Text: POST ANESTHESIA EVALUATION NOTE : 1985 Procedure Summary Date: 11/10/23 Room / Location: [address] [facility] Anesthesia Start: 1353 Anesthesia Stop: 174 Procedures: LAPAROSCOPIC HYSTERECTOMY TOTAL FOR UTERUS 250 [...] SIGNATURE: Tigist Jenkins MD PATIENT NAME: Violet Hernandez DATE: November 11, 2023 TIME: 2:01 PM CSN: [id number] [facility] CNPNon 11-11-2023 CNPN Telephone ([facility]) VIOLET HERNANDEZ ([id number]) 1985 F Date Time Provider Department 11/11/23 LEE KATZ [facility] During your visit today, we recorded the following information about you: Evelyn Harper 11/11/2023 10:15 AM Signed Reason for call: [...] department: Visit date not found 11/24/2023 in [facility] with YENNIFER TOMAS - 2 WEEK POST OP 01/15/2024 in [facility] with LEE KATZ - 6 WEEK POST OP 05/20/2024 in KELP GATHER[facility] with SHERLY NG - annual exam Thanks Janice Leslie, SHARMILA 11/11/2023 11:37 AM Addendum Called pt. Verified name/ S/p 11/10/23 - Total Laparoscopic Hysterectomy, Bilateral Salpingo-Oophorectomy, Cystoscopy Pt thought she heard the Resident say she was going to send a Rx for Estrogen to her [facility]. No Rx ordered. Pt agreeable to discuss during her 2 week post op visit on 11/23/23 with Yennifer Tomas CNP. Routing to [facility] Pool. Janice Weeks, SHARMILA November 11, 2023 11:23 AM Jeanie Yu APRN.DANA 11/11/2023 11:52 AM Signed Is she having any symptoms that she needs the HRT now? It looks like she has been in [facility] since 2010. If no symptoms, she can wait to discuss at her postop appt or with her primary energy attorney. Jeanie Yu APRN.ADJUNCT PROFESSOR OF ENGLISH Allergies As of Date: 11/11/2023 (No Known [...] by EVELYN HARPER on 11/11/23 [facility] ANES PRE-OPon 11-10-2023 ANES PRE-OP HNO ID: [id number] Author: IRAIS AMIN DO Service: ? Author Type: Anesthesiologist Type: Anesthesia Preprocedure Evaluation Filed: 11/10/2023 12:47 Note Text: ANESTHESIOLOGY DAY OF SURGERY NOTE : 1985 Procedure Information Date/Time: 11/10/23 1510 Procedures: LAPAROSCOPIC HYSTERECTOMY TOTAL FOR UTERUS 250 G OR LESS W/REMOVAL TUBE(S) AND/OR OVARY(S) CYSTOSCOPY Location: MAIN [facility] Surgeons: Lee Katz DO Estimated body mass [...] and consent discussed: yes. Patient / Responsible Libertarian agrees to proceed: yes Patient / Surrogate [...] November 10, 2023 TIME: 12:47 PM CSN: [id number] [facility] OPERATIVE NOon 11-10-2023 OPERATIVE NO HNO ID: [id number] Author: LEE KATZ DO Service: Gynecology Author Type: Physician Type: Operative Report Filed: 11/10/2023 20:21 Note Text: RICE DRIER OPERATOR OPERATIVE/PROCEDURE REPORT LOG ID: [id number] SURGERY/PROCEDURE DATE: 11/10/2023 INCISION/PROCEDURE START TIME: 2:43 PM INCISION CLOSE/PROCEDURE END TIME: 5:14 PM SURGEON(S)/PROCEDURALIS T(S) AND CHEMICAL MACHINE TENDER(S): Surgeons and Role: * Lee Katz DO [...] ligament wer (more content not included)... Normal [facility] SURGICAL PATHOLOGYon 024 CASE REPORT Normal [facility] Comment on above: Order Comment: Speci men Type: TISSUE SPECIMEN Ordering Facility: [facility] Address: [address] [place] [address] Result Comment: Surg [facility] Pathology Report Case: [id number] Authorizing Provider: Lee Katz DO Collected: 11/10/2023 04:29 PM Ordering Location: Admitting Received: 11/10/2023 05:11 PM Pathologist: Dona Galarza MD Specimen: Uterus, Cervix, Bilateral Fallopian Tubes, and Bilateral Ovaries Performed By: #### S #### [facility] CLIA [id number] [address] [place] [address] [place] CLINICAL HISTORY Normal [facility] Comment on above: Order Comment: Speci men Type: TISSUE SPECIMEN Ordering Facility: [facility] Address: [address] [place] [address] Result Comment: Pre- op diagnosis: Intramural and subserous leiomyoma of uterus [D25.1, D25.2] Pelvic pain in female [R10.2] Preop examination [Z01.818] Performed By: #### S #### [facility] CLIA [id number] [address] [place] [address] [place] DIAGNOSIS COMMENT The ectocervical squamous epithelium has been denuded. Normal [facility] Comment on above: Order Comment: Speci men Type: TISSUE SPECIMEN Ordering Facility: [facility] Address: [address] [place] [address] Performed By: #### S #### [facility] CLIA [id number] [address] [place] [address] [place] FINAL DIAGNOSIS Normal [facility] Comment on above: Order Comment: Speci men Type: TISSUE SPECIMEN Ordering Facility: [facility] Address: [address] [place] [address] Result Comment: A. U terus with cervix, bilateral fallopian tubes and ovaries, Total Laparoscopic Hysterectomy and bilateral salpingo-oophorectomy : - Benign cervix. See comment. - Inactive endometrium with stromal breakdown. 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 - Bilateral fimbriated fallopian tubes with no significant diagnostic alteration. - Ovaries with surface adenofibromatous change and adhesions. Performed By: #### S #### [facility] CLIA [id number] [address] [place] [address] STATES OF [facility] FINAL PERFORMING LAB Normal [facility] Comment on above: Order Comment: Speci men Type: TISSUE SPECIMEN Ordering Facility: [facility] Address: [address] [place] [address] Result Comment: Diag nostic interpretation performed at [facility], [address] [place] [address] CLIA# [id number] Literacy Education Professor: John Nguyen M.D. Performed By: #### S #### [facility] CLIA [id number] [address] [place] [address] GROSS DESCRIPTION Normal [facility] Comment on above: Order Comment: Speci men Type: TISSUE SPECIMEN Ordering Facility: [facility] Address: [address] [place] [address] Result Comment: A. U terus, Cervix, Bilateral [...] white wrinkled surface. No cysts are identified. Medical Chief Technician sections are submitted as follows: A1: Anterior [...] and associated ovary Gross examination performed at [facility], [address] [place] [address] , [place] [address] CLIA# [id number] 11/11/23 1:05 PM Performed By: #### S #### [facility] CLIA [id number] [address] [place] [address] [place] CBC W Auto Differential pane l (Bld)on 11-06-2023 Anisocytosis Ql (Bld) Present [facility] Basophils (Bld) [#/Vol] 0.00 10*3/uL NINF [facility] Basophils/100 WBC (Bld) 0.0 % [facility] Dacrocytes LM Ql (Bld) Few [facility] Differential cell count method Nom (Bld) Manual [facility] Eosinophils (Bld) [#/Vol] 0.05 10*3/uL [facility] Eosinophils/100 WBC (Bld) 1.7 % [facility] Erythrocyte distribution width (RBC) [Ratio] 14.0 % 11.5 - 15.0 % [facility] Hematocrit (Bld) [Volume fraction] 33.7 % Low 36.0 - 46.0 % [facility] Hemoglobin (Bld) [Mass/Vol] 11.5 g/dL 11.5 - 15.5 g/dL [facility] Interpretation and review of laboratory results Abnormal [facility] Lymphocytes (Bld) [#/Vol] 0.66 10*3/uL Low [facility] Lymphocytes/100 WBC (Bld) 23.5 % [facility] MCH (RBC) [Entitic mass] 36.4 pg High 26.0 - 34.0 pg [facility] MCHC (RBC) [Mass/Vol] 34.1 g/dL 30.5 - 36.0 g/dL [facility] MCV (RBC) [Entitic vol] 106.6 fL High 80.0 - 100.0 fL [facility] Monocytes (Bld) [#/Vol] 0.44 10*3/uL NINF [facility] Monocytes/100 WBC (Bld) 15.7 % [facility] Neutrophils (Bld) [#/Vol] 1.65 10*3/uL [facility] Neutrophils/100 WBC (Bld) 59.1 % [facility] Nucleated RBC (Bld) [#/Vol] NINF [facility] Nucleated RBC/100 WBC (Bld) [Ratio] 0.0 % /100 WBC [facility] Ovalocytes LM Ql (Bld) Few Cl [facility] Platelet mean volume (Bld) [Entitic vol] 10.9 fL 9.0 - 12.7 fL [facility] Platelets (Bld) [#/Vol] 110 10*3/uL Low [facility] Platelets Estimate (Bld) [#/Vol] Decreased [facility] Polychromasia LM Ql (Bld) Slight [facility] RBC (Bld) [#/Vol] 3.16 10*6/uL Low 3.90 - 5.2 0 m/uL [facility] RBC Fragments Few Abnormal None Seen [facility] Red Cell Morph Reviewed: see result s of individual morphologies [facility] WBC (Bld) [#/Vol] 2.80 10*3/uL Low [facility] This is an appended report. These results have been appended to a previously verified report.This is an appended report. These results have been appended to a previously verified report. [facility] Anisocytosis Ql (Bld) Present Normal [facility] Comment on above: Order Comment: Speci men Type: BLOOD SPECIMENOrdering Facility: [facility] Address: [address] [place] [address] Performed By: #### 5 7021-8 ####[facility] [id number] [address] LABCLIA [id number] [place] [address] [place] Basophils (Bld) [#/Vol] 0.00 10*3/uL Normal <0.11 [facility] Comment on above: Order Comment: Speci men Type: BLOOD SPECIMENOrdering Facility: [facility] Address: [address] [place] [address] Performed By: #### 5 7021-8 ####[facility] [id number] [address] LABCLIA [id number] [place] [address] [place] Basophils/100 WBC (Bld) 0.0 % Normal [facility] Comment on above: Order Comment: Speci men Type: BLOOD SPECIMENOrdering Facility: [facility] Address: [address] [place] [address] Performed By: #### 5 7021-8 ####[facility] MILLTOWNCLIA [id number] [address] STATES [facility] LABCLIA [id number] [place] [address] [place] Dacrocytes LM Ql (Bld) Few Normal Cl [facility] Comment on above: Order Comment: Speci men Type: BLOOD SPECIMENOrdering Facility: [facility] Address: [address] [place] [address] Performed By: #### 5 7021-8 ####[facility] MILLTOWNCLIA [id number] [place] [address] [place] [facility] LABCLIA [id number] [place] [address] [place] Differential cell count method Nom (Bld) Manual Normal [facility] Comment on above: Order Comment: Speci men Type: BLOOD SPECIMENOrdering Facility: [facility] Address: [address] [place] [address] Performed By: #### 5 7021-8 ####[facility] MILLWNCLIA [id number] [address] STATES [facility] LABCLIA [id number] [place] [address] [place] Eosinophils (Bld) [#/Vol] 0.05 10*3/uL Normal <0.46 [facility] Comment on above: Order Comment: Speci men Type: BLOOD SPECIMENOrdering Facility: [facility] Address: [address] [place] [address] Performed By: #### 5 7021-8 ####[facility] ERWNCLIA [id number] [address] LABCLIA [id number] [place] [address] [place] Eosinophils/100 WBC (Bld) 1.7 % Normal [facility] Comment on above: Order Comment: Speci men Type: BLOOD SPECIMENOrdering Facility: [facility] Address: [address] [place] [address] Performed By: #### 5 7021-8 ####[facility] MILLWNCLIA [id number] [address] LABCLIA [id number] [place] [address] [place] Erythrocyte distribution width (RBC) [Ratio] 14.0 % Normal 11.5-15.0 [facility] Comment on above: Order Comment: Speci men Type: BLOOD SPECIMENOrdering Facility: [facility] Address: [address] [place] [address] Performed By: #### 5 7021-8 ####[facility] PARKWAYNCLIA [id number] [address] LABCLIA [id number] [place] [address] [place] Hematocrit (Bld) [Volume fraction] 33.7 % Low 36.0-46.0 [facility] Comment on above: Order Comment: Speci men Type: BLOOD SPECIMENOrdering Facility: [facility] Address: [address] [place] [address] Performed By: #### 5 7021-8 ####[facility] MILLWNCLIA [id number] [address] LABCLIA [id number] [place] [id number] [address] [place] Hemoglobin (Bld) [Mass/Vol] 11.5 g/dL Normal 11.5-15.5 [facility] Comment on above: Order Comment: Speci men Type: BLOOD SPECIMENOrdering Facility: [facility] Address: [address] [place] [address] Performed By: #### 5 7021-8 ####[facility] ERWNCLIA [id number] [address] LABCLIA [id number] [place] [address] [place] Lymphocytes (Bld) [#/Vol] 0.66 10*3/uL Low 1.00-4.00 [facility] Comment on above: Order Comment: Speci men Type: BLOOD SPECIMENOrdering Facility: [facility] Address: [address] [place] [address] Performed By: #### 5 7021-8 ####[facility] [id number] [address] LABCLIA [id number] [place] [address] [place] Lymphocytes/100 WBC (Bld) 23.5 % Normal [facility] Comment on above: Order Comment: Speci men Type: BLOOD SPECIMENOrdering Facility: [facility] Address: [address] [place] [address] Performed By: #### 5 7021-8 ####[facility] [id number] [address] LABCLIA [id number] [place] [address] [place] MCH (RBC) [Entitic mass] 36.4 pg High 26.0-34.0 [facility] Comment on above: Order Comment: Speci men Type: BLOOD SPECIMENOrdering Facility: [facility] Address: [address] [place] [address] Performed By: #### 5 7021-8 ####[facility] PARKWAYNCLIA [id number] [address] LABCLIA [id number] [place] [address] [place] MCHC (RBC) [Mass/Vol] 34.1 g/dL Normal 30.5-36.0 [facility] Comment on above: Order Comment: Speci men Type: BLOOD SPECIMENOrdering Facility: [facility] Address: [address] [place] [address] Performed By: #### 5 7021-8 ####[facility] [id number] [address] LABCLIA [id number] [place] [address] [place] MCV (RBC) [Entitic vol] 106.6 fL High 80.0-100.0 [facility] Comment on above: Order Comment: Speci men Type: BLOOD SPECIMENOrdering Facility: [facility] Address: [address] [place] [address] Performed By: #### 5 7021-8 ####[facility] [id number] [address] LABCLIA [id number] [place] [address] [place] Monocytes (Bld) [#/Vol] 0.44 10*3/uL Normal <0.87 [facility] Comment on above: Order Comment: Speci men Type: BLOOD SPECIMENOrdering Facility: [facility] Address: [address] [place] [address] Performed By: #### 5 7021-8 ####[facility] MILLST. VINCENT [facility] HOSPITALLIA [id number] [address] LABCL[address] [id number] [facility] [address] [address] [place] Monocytes/100 WBC (Bld) 15.7 % Normal [facility] Comment on above: Order Comment: Speci men Type: BLOOD SPECIMENOrdering Facility: [facility] Address: [address] [place] [address] Performed By: #### 5 7021-8 ####[facility] MILLTOWNCLIA [id number] [address] LABCLIA [id number] [place] [address] [place] Neutrophils (Bld) [#/Vol] 1.65 10*3/uL Normal 1.45-7.50 [facility] Comment on above: Order Comment: Speci men Type: BLOOD SPECIMENOrdering Facility: [facility] Address: [address] [place] [address] Performed By: #### 5 7021-8 ####[facility] MILLWNCLIA [id number] [address] STATES [facility] LABCLIA [id number] [place] [address] [place] Neutrophils/100 WBC (Bld) 59.1 % Normal [facility] Comment on above: Order Comment: Speci men Type: BLOOD SPECIMENOrdering Facility: [facility] Address: [address] [place], [place] [address] Performed By: #### 5 7021-8 ####[facility] MILLTOWNCLIA [id number] [place] [address] [place] [facility] [id number] [facility] [address] [address] [place] Nucleated RBC (Bld) [#/Vol] 10*3/uL Normal <0.01 [facility] Comment on above: Order Comment: Speci men Type: BLOOD SPECIMENOrdering Facility: [facility] Address: [address] [place] [address] Performed By: #### 5 7021-8 ####[facility] ERWNCLIA [id number] [address] LABCLIA [id number] [place] [address] [place] Nucleated RBC/100 WBC (Bld) [Ratio] 0.0 /100 WBC Normal [facility] Comment on above: Order Comment: Speci men Type: BLOOD SPECIMENOrdering Facility: [facility] Address: [address] [place] [address] Performed By: #### 5 7021-8 ####[facility] [id number] [address] STATES [facility] LABCLIA [id number] [place] [address] [place] Ovalocytes LM Ql (Bld) Few Normal Cl [facility] Comment on above: Order Comment: Speci men Type: BLOOD SPECIMENOrdering Facility: [facility] Address: [address] [place] [address] Performed By: #### 5 7021-8 ####[facility] ERWALLIA [id number] [place] [address] [place] [facility] LABCLIA [id number] [place] [address] [place] Platelet mean volume (Bld) [Entitic vol] 10.9 fL Normal 9.0-12.7 [facility] Comment on above: Order Comment: Speci men Type: BLOOD SPECIMENOrdering Facility: [facility] Address: [address] [place] [address] Performed By: #### 5 7021-8 ####[facility] MILLTOWNCLIA [id number] [place] [address] [place] [facility] LABCLIA [id number] [address] [address] [place] Platelets (Bld) [#/Vol] 110 10*3/uL Low 150-400 [facility] Comment on above: Order Comment: Speci men Type: BLOOD SPECIMENOrdering Facility: [facility] Address: [address] [place], [place] [address] Performed By: #### 5 7021-8 ####[facility] MILLTOWNCLIA [id number] [place] [address] [place] [facility] LABCLIA [id number] [address] [address] [place] Platelets Estimate (Bld) [#/Vol] Decreased Normal [facility] Comment on above: Order Comment: Speci men Type: BLOOD SPECIMENOrdering Facility: [facility] Address: [address] [place] [address] Performed By: #### 5 7021-8 ####[facility] MILLWNCLIA [id number] [address] OF [facility] LABCLIA [id number] [address] [address] [place] Polychromasia LM Ql (Bld) Slight Normal [facility] Comment on above: Order Comment: Speci men Type: BLOOD SPECIMENOrdering Facility: [facility] Address: [address] [place], [place] [address] Performed By: #### 5 7021-8 ####[facility] MILLTOWNCLIA [id number] [place] [address] [place] [facility] LABCL[facility] [id number] [address] [address] [place] RBC (Bld) [#/Vol] 3.16 10*6/uL Low 3.90-5.20 [facility] Comment on above: Order Comment: Speci men Type: BLOOD SPECIMENOrdering Facility: [facility] Address: [address] [place] [address] Performed By: #### 5 7021-8 ####[facility] PARKWAYNCLIA [id number] [address] LABCLIA [id number] [place] [address] [place] RBC FRAGMENTS Few Abnormal None Seen [facility] Comment on above: Order Comment: Speci men Type: BLOOD SPECIMENOrdering Facility: [facility] Address: [address] [place] [address] Performed By: #### 5 7021-8 ####[facility] [id number] [address] STATES OF [facility] LABCLIA [id number] [place] [address] [place] RED CELL MORPH Reviewed: see result s of individual morphologies Normal [facility] Comment on above: Order Comment: Speci men Type: BLOOD SPECIMENOrdering Facility: [facility] Address: [address] [place] [address] Performed By: #### 5 7021-8 ####[facility] PARKWAYNCLIA [id number] [place] [address] [place] [facility] LABCLIA [id number] [place] [address] [place] WBC (Bld) [#/Vol] 2.80 10*3/uL Low 3.70-11.00 [facility] Comment on above: Order Comment: Speci men Type: BLOOD SPECIMENOrdering Facility: [facility] Address: [address] [place] [address] Performed By: #### 5 7021-8 ####[facility] [id number] [place] [id number] [place] [address] STATES OF [facility] LABCLIA [id number] PRATIK HIGGINS [address] Fam 11-06-2023 SHUKRI Telephone (PANEWO) VIOLET HERNANDEZ ([id number]) 1985 F Date Time Provider Department 11/06/23 ADELINE JAMA During your visit today, we recorded the following information about you: Ana Cristina Walker LPN 11/06/2023 3:50 PM Signed Received [facility] office visit and hematology office visit. Scanned into Waze through Onbase scanning. RUDY Dennis Jessica, LPN 11/06/2023 3:52 PM Signed Called and left message with Dr. Saenz office requesting most recent office visit for upcoming surgery. RUDY Dennis Jessica, LPN 11/09/2023 12:10 PM Signed Received office visit from Dr. Saenz office. Scanned into Waze through Onbase scanning. Ana Cristina Walker LPN Allergies As of Date: 11/06/2023 (No Known Allergies) Date Reviewed: 11/06/2023 Reviewed by: Adeline Jama, HYDROBLASTER.ADJUNCT PROFESSOR OF ENGLISH - Fully Assessed Prescriptions as of 11/09/2023 [...] on 11/09/23 Normal [facility] Comprehensive metabolic 2000 panelOrdered By: Valentine Smalls on 11-06-2023 Albumin [Mass/Vol] 4.3 g/dL 3.9 - 4.9 g/dL [facility] ALP [Catalytic activity/Vol] 69 U/L 34 - 123 U/L [facility] ALT [Catalytic activity/Vol] 80 U/L High 7 - 38 U/L [facility] Anion gap [Moles/Vol] 13 mmol/L 8 - 15 mmol/L [facility] AST [Catalytic activity/Vol] 59 U/L High 13 - 35 U/L [facility] Bilirubin [Mass/Vol] 0.3 mg/dL 0.2 - 1 .3 mg/dL [facility] Calcium [Mass/Vol] 9.3 mg/dL 8.5 - 10. 2 mg/dL [facility] Chloride [Moles/Vol] 106 mmol/L 98 - 10 7 mmol/L [facility] CO2 [Moles/Vol] 22 mmol/L 22 - 30 mmol/L [facility] Creatinine [Mass/Vol] 0.76 mg/dL 0.58 - 0.96 mg/dL [facility] GFR/1.73 sq M.predicted among non-blacks MDRD (S/P/Bld) [Vol rate/Area] 102 mL/min/{1.73_m2} - PINF [facility] Comment on above: Estimated Glomerular [...] 133 mg/dL High 74 - 99 mg/dL [facility] Comment on above: The [place] Diabete s Association (ADA) provides guidance for [...] Standards of Medical Care in Diabetes 2016, [place] Diabetes Association. Diabetes Care. 2016.39(Suppl 1). Interpretation and review of laboratory results Abnormal [facility] Potassium [Moles/Vol] 3.7 mmol/L 3.7 - 5.1 mmol/L [facility] Protein [Mass/Vol] 6.5 g/dL 6.3 - 8.0 g/dL [facility] Sodium [Moles/Vol] 141 mmol/L 136 - 144 mmol/L [facility] Urea nitrogen [Mass/Vol] 9 mg/dL 7 - 21 mg/dL [facility] Comprehensive metabolic 2000 panelon 11-06-2023 Albumin [Mass/Vol] 4.3 g/dL Normal 3.9-4.9 [facility] Comment on above: Order Comment: Speci men Type: BLOOD SPECIMENOrdering Facility: [facility] Address: [address] [place] [address] Performed By: #### 2 4323-8 ####[facility] [id number] [place] [address] [place] ALP [Catalytic activity/Vol] 69 U/L Normal 34-123 [facility] Comment on above: Order Comment: Speci men Type: BLOOD SPECIMENOrdering Facility: [facility] Address: [address] [place] [address] Performed By: #### 2 4323-8 ####[facility] MARTINVERMONT STATE HOSPITALWNCLIA [id number] [place] [address] [place] ALT [Catalytic activity/Vol] 80 U/L High 7-38 [facility] Comment on above: Order Comment: Speci men Type: BLOOD SPECIMENOrdering Facility: [facility] Address: [address] [place] [address] Performed By: #### 2 4323-8 ####[facility] ERWALLIA [id number] [place] [address] [place] Anion gap [Moles/Vol] 13 mmol/L Normal 8-15 [facility] Comment on above: Order Comment: Speci men Type: BLOOD SPECIMENOrdering Facility: [facility] Address: [address] [place] [address] Performed By: #### 2 4323-8 ####[facility] [id number] [place] [address] [place] AST [Catalytic activity/Vol] 59 U/L High 13-35 [facility] Comment on above: Order Comment: Speci men Type: BLOOD SPECIMENOrdering Facility: [facility] Address: [address] [place] [address] Performed By: #### 2 4323-8 ####[facility] PARKWAYNCLIA [id number] [place] [address] [place] Bilirubin [Mass/Vol] 0.3 mg/dL Normal 0.2-1.3 [facility] Comment on above: Order Comment: Speci men Type: BLOOD SPECIMENOrdering Facility: [facility] Address: [address] [place] [address] Performed By: #### 2 4323-8 ####[facility] MARTIN MILLTOWNCLIA [id number] [place] [address] [place] Calcium [Mass/Vol] 9.3 mg/dL Normal 8.5-10.2 [facility] Comment on above: Order Comment: Speci men Type: BLOOD SPECIMENOrdering Facility: [facility] Address: [address] [place] [address] Performed By: #### 2 4323-8 ####[facility] MILLTOWNCLIA [id number] [place] [address] [place] Chloride [Moles/Vol] 106 mmol/L Normal 98-107 [facility] Comment on above: Order Comment: Speci men Type: BLOOD SPECIMENOrdering Facility: [facility] Address: [address] [place] [address] Performed By: #### 2 4323-8 ####[facility] MILLWNCLIA [id number] [place] [address] [place] CO2 [Moles/Vol] 22 mmol/L Normal 22-30 [facility] Comment on above: Order Comment: Speci men Type: BLOOD SPECIMENOrdering Facility: [facility] Address: [address] [place] [address] Performed By: #### 2 4323-8 ####[facility] MILLTOWNCLIA [id number] [place] [address] [place] Creatinine [Mass/Vol] 0.76 mg/dL Normal 0.58-0.96 [facility] Comment on above: Order Comment: Speci men Type: BLOOD SPECIMENOrdering Facility: [facility] Address: [address] [place], [place] [address] Performed By: #### 2 4323-8 ####[facility] MILLWNCLIA [id number] [place] [address] [place] Creatinine and Glomerular filtration rate.predicted panel (S/P/Bld) 102 mL/min/1.73m??? Normal >=60 [facility] Comment on above: Order Comment: Wilber noonan Type: BLOOD SPECIMENOrdering Facility: [facility] Address: [address] [place] [address] Result Comment: Massiel mated Glomerular Filtration Rate [...] actual GFR. Performed By: #### 2 4323-8 ####[facility] [id number] [place] [address] [place] Glucose [Mass/Vol] 133 mg/dL High 74-99 [facility] Comment on above: Order Comment: Wilber noonan Type: BLOOD SPECIMENOrdering Facility: [facility] Address: [address] [place] [address] Result Comment: The [place] Diabetes Association (ADA) provides guidance for cutoff [...] Standards of Medical Care in Diabetes 2016, [place] Diabetes Association. Diabetes Care. 2016.39(Suppl 1). Performed By: #### 2 4323-8 ####[facility] [id number] [place] [address] [place] Potassium [Moles/Vol] 3.7 mmol/L Normal 3.7-5.1 [facility] Comment on above: Order Comment: Speci men Type: BLOOD SPECIMENOrdering Facility: [facility] Address: [address] [place] [address] Performed By: #### 2 4323-8 ####[facility] KOBEWNCLIA [id number] [place] [address] [place] Protein [Mass/Vol] 6.5 g/dL Normal 6.3-8.0 [facility] Comment on above: Order Comment: Speci men Type: BLOOD SPECIMENOrdering Facility: [facility] Address: [address] [place] [address] Performed By: #### 2 4323-8 ####[facility] PARKWAYNCLIA [id number] [place] [address] [place] Sodium [Moles/Vol] 141 mmol/L Normal 136-144 [facility] Comment on above: Order Comment: Speci men Type: BLOOD SPECIMENOrdering Facility: [facility] Address: [address] [place] [address] Performed By: #### 2 4323-8 ####[facility] PARKWAYNCLIA [id number] [place] [address] [place] Urea nitrogen [Mass/Vol] 9 mg/dL Normal 7-21 [facility] Comment on above: Order Comment: Speci men Type: BLOOD SPECIMENOrdering Facility: [facility] Address: [address] [place] [address] Performed By: #### 2 4323-8 ####[facility] PARKWAYNCLIA [id number] [place] [address] [place] HISTORY PHYSICALon HISTORY PHYSICAL HNO ID: [id number] Author: ADELINE JAMA APRN.ADJUNCT PROFESSOR OF ENGLISH Service: ? Author Type: Nurse Practitioner Type: [...] 11.00 k/uL Final 10/06/23 Dr. Braun, Hematology [place] Thrombocytopenia (HCC) Assessment: Platelet Count Date Value [...] asymptomatic, following cardiology 11/03/22 Javi Rivero CNP, [facility] BCC (basal cell carcinoma of [...] large neck Non-male patient STOP-Bang Score: 1 [id number] Score: Age: <65 Sex: female CHF history: No Hypertension history: No Stroke/TIA/thromboembol ism history: No Vascular disease history: No Diabetes history: No [id number] Score: 1 ARISCAT Score: Age: <=50 Preoperative [...] COVID-19 original vaccine, age 12+ yr, monovalent (Mind Palette - PURPLE TOP) 12/05/2020 Imm Admin: COVID-19 original vaccine, age 12+ yr, monovalent (OptuLink-Browsy - PURPLE TOP) CHIEF COMPLAINT: Pre-op exam [...] Endorses lower (more content not included)... Normal [facility] 11-03-2023 CNPN Telephone ([facility]) VIOLET HERNANDEZ ([id number]) 1985 F Date Time Provider Department 11/03/23 LEE KATZ [facility] During your visit today, we recorded the following information about you: Emerita Payan 11/03/2023 10:52 AM Signed Patient calling into the office. She is a patient of Dr. Katz'akash. She is scheduled for surgery on 11/09 and states that when they went over the medications that she should be stopping she could not remember if they mentioned she should stop the psychiatric medication and would like to know if she needs to 7 days prior. She states that she sent in [employer] papers for her yesterday through [employer] and would like them completed. I let the patient know that I would send a message but that there can be a 14 day turn around for FMLA. Please advise. Thank you Emerita Payan 11/04/2023 8:28 AM Signed FMLA for faxed to [facility] to sign. Emerita Payan November 04, 2023 8:28 AM Toya Lopes [...] Visit: Patient Question [1477] Prescriptions as of 11/09/2023 - SUTAB 1.479-0.188- [...] Status:Closed by EMERITA PAYAN on 11/03/23 Normal [facility] CNCOon 2023 CNCO Letter Text Normal [facility] CBC W Auto Differential pane l (Bld)on 10-29-2023 Basophils (Bld) [#/Vol] 0.03 10*3/uL Normal <0.11 [facility] Comment on above: Order Comment: Speci men Type: BLOOD SPECIMENOrdering Facility: [facility] Address: [address] [place] [address] Performed By: #### 5 7021-8 ####[facility] LABCLIA [id number] [place] [address] [place] Basophils/100 WBC (Bld) 0.9 % Normal [facility] Comment on above: Order Comment: Speci men Type: BLOOD SPECIMENOrdering Facility: [facility] Address: [address] [place] [address] Performed By: #### 5 7021-8 ####[facility] LABCLIA [id number] [place] [address] [place] Dacrocytes LM Ql (Bld) Few Normal Cl [facility] Comment on above: Order Comment: Speci men Type: BLOOD SPECIMENOrdering Facility: [facility] Address: [address] [place] [address] Performed By: #### 5 7021-8 ####[facility] LABCLIA [id number] [place] [address] [place] Differential cell count method Nom (Bld) Manual Normal [facility] Comment on above: Order Comment: Speci men Type: BLOOD SPECIMENOrdering Facility: [facility] Address: [address] [place] [address] Performed By: #### 5 7021-8 ####[facility] LABCLIA [id number] [place] [address] [place] Eosinophils (Bld) [#/Vol] 0.03 10*3/uL Normal <0.46 [facility] Comment on above: Order Comment: Speci men Type: BLOOD SPECIMENOrdering Facility: [facility] Address: [address] [place] [address] Performed By: #### 5 7021-8 ####[facility] LABCLIA [id number] [place] [address] [place] Eosinophils/100 WBC (Bld) 0.9 % Normal [facility] Comment on above: Order Comment: Speci men Type: BLOOD SPECIMENOrdering Facility: [facility] Address: [address] [place] [address] Performed By: #### 5 7021-8 ####[facility] LABCLIA [id number] [place] [address] [place] Erythrocyte distribution width (RBC) [Ratio] 14.3 % Normal 11.5-15.0 [facility] Comment on above: Order Comment: Speci men Type: BLOOD SPECIMENOrdering Facility: [facility] Address: [address] [place] [address] Performed By: #### 5 7021-8 ####[facility] LABCLIA [id number] [place] [address] [place] Hematocrit (Bld) [Volume fraction] 34.2 % Low 36.0-46.0 [facility] Comment on above: Order Comment: Speci men Type: BLOOD SPECIMENOrdering Facility: [facility] Address: [address] [place] [address] Performed By: #### 5 7021-8 ####[facility] LABCLIA [id number] [place] [address] [place] Hemoglobin (Bld) [Mass/Vol] 11.4 g/dL Low 11.5-15.5 [facility] Comment on above: Order Comment: Speci men Type: BLOOD SPECIMENOrdering Facility: [facility] Address: [address] [place] [address] Performed By: #### 5 7021-8 ####[facility] LABIA [id number] [place] [address] [place] Lymphocytes (Bld) [#/Vol] 0.66 10*3/uL Low 1.00-4.00 [facility] Comment on above: Order Comment: Speci men Type: BLOOD SPECIMENOrdering Facility: [facility] Address: [address] [place] [address] Performed By: #### 5 7021-8 ####[facility] LABCLIA [id number] [place] [address] [place] Lymphocytes/100 WBC (Bld) 22.6 % Normal [facility] Comment on above: Order Comment: Speci men Type: BLOOD SPECIMENOrdering Facility: [facility] Address: [address] [place], [place] [address] Performed By: #### 5 7021-8 ####[facility] LABIA [id number] [place] [address] [place] MCH (RBC) [Entitic mass] 37.3 pg High 26.0-34.0 [facility] Comment on above: Order Comment: Speci men Type: BLOOD SPECIMENOrdering Facility: [facility] Address: [address] [place] [address] Performed By: #### 5 7021-8 ####[facility] [id number] [place] [address] [place] MCHC (RBC) [Mass/Vol] 33.3 g/dL Normal 30.5-36.0 [facility] Comment on above: Order Comment: Speci men Type: BLOOD SPECIMENOrdering Facility: [facility] Address: [address] [place] [address] Performed By: #### 5 7021-8 ####[facility] [id number] [place] [address] [place] MCV (RBC) [Entitic vol] 111.8 fL High 80.0-100.0 [facility] Comment on above: Order Comment: Speci men Type: BLOOD SPECIMENOrdering Facility: [facility] Address: [address] [place] [address] Performed By: #### 5 7021-8 ####[facility] [id number] [place] [address] [place] Monocytes (Bld) [#/Vol] 0.33 10*3/uL Normal <0.87 [facility] Comment on above: Order Comment: Speci men Type: BLOOD SPECIMENOrdering Facility: [facility] Address: [address] [place] [address] Performed By: #### 5 7021-8 ####[facility] [id number] [place] [address] [place] Monocytes/100 WBC (Bld) 11.3 % Normal [facility] Comment on above: Order Comment: Speci men Type: BLOOD SPECIMENOrdering Facility: [facility] Address: [address] [place] [address] Performed By: #### 5 7021-8 ####[facility] LABCLIA [id number] [place] [address] [place] Neutrophils (Bld) [#/Vol] 1.88 10*3/uL Normal 1.45-7.50 [facility] Comment on above: Order Comment: Speci men Type: BLOOD SPECIMENOrdering Facility: [facility] Address: [address] [place] [address] Performed By: #### 5 7021-8 ####[facility] LABCLIA [id number] [place] [address] [place] Neutrophils/100 WBC (Bld) 64.3 % Normal [facility] Comment on above: Order Comment: Speci men Type: BLOOD SPECIMENOrdering Facility: [facility] Address: [address] [place] [address] Performed By: #### 5 7021-8 ####[facility] LABCLIA [id number] [place] [address] [place] Nucleated RBC (Bld) [#/Vol] 10*3/uL Normal <0.01 [facility] Comment on above: Order Comment: Speci men Type: BLOOD SPECIMENOrdering Facility: [facility] Address: [address] [place] [address] Performed By: #### 5 7021-8 ####[facility] LABCLIA [id number] [place] [address] [place] Nucleated RBC/100 WBC (Bld) [Ratio] 0.0 /100 WBC Normal [facility] Comment on above: Order Comment: Speci men Type: BLOOD SPECIMENOrdering Facility: [facility] Address: [address] [place] [address] Performed By: #### 5 7021-8 ####[facility] LABIA [id number] [place] [address] [place] Ovalocytes LM Ql (Bld) Few Normal Cl [facility] Comment on above: Order Comment: Speci men Type: BLOOD SPECIMENOrdering Facility: [facility] Address: [address] [place] [address] Performed By: #### 5 7021-8 ####[facility] LABIA [id number] [place] [address] [place] Platelet mean volume (Bld) [Entitic vol] 10.6 fL Normal 9.0-12.7 [facility] Comment on above: Order Comment: Speci men Type: BLOOD SPECIMENOrdering Facility: [facility] Address: [address] [place] [address] Performed By: #### 5 7021-8 ####[facility] LABIA [id number] [place] [address] [place] Platelets (Bld) [#/Vol] 105 10*3/uL Low 150-400 [facility] Comment on above: Order Comment: Speci men Type: BLOOD SPECIMENOrdering Facility: [facility] Address: [address] [place] [address] Performed By: #### 5 7021-8 ####[facility] LABIA [id number] [place] [address] [place] Platelets Estimate (Bld) [#/Vol] Decreased Normal [facility] Comment on above: Order Comment: Speci men Type: BLOOD SPECIMENOrdering Facility: [facility] Address: [address] [place] [address] Performed By: #### 5 7021-8 ####[facility] LABCLIA [id number] [place] [address] [place] Polychromasia LM Ql (Bld) Slight Normal [facility] Comment on above: Order Comment: Speci men Type: BLOOD SPECIMENOrdering Facility: [facility] Address: [address] [place] [address] Performed By: #### 5 7021-8 ####[facility] LABCLIA [id number] [place] [address] [place] RBC (Bld) [#/Vol] 3.06 10*6/uL Low 3.90-5.20 [facility] Comment on above: Order Comment: Speci men Type: BLOOD SPECIMENOrdering Facility: [facility] Address: [address] [place] [address] Performed By: #### 5 7021-8 ####[facility] LABIA [id number] [place] [address] [place] RED CELL MORPH Reviewed: see result s of individual morphologies Normal [facility] Comment on above: Order Comment: Speci men Type: BLOOD SPECIMENOrdering Facility: [facility] Address: [address] [place] [address] Performed By: #### 5 7021-8 ####[facility] LABCLIA [id number] [place] [address] [place] WBC (Bld) [#/Vol] 2.93 10*3/uL Low 3.70-11.00 [facility] Comment on above: Order Comment: Speci men Type: BLOOD SPECIMENOrdering Facility: [facility] Address: [address] [place] [address] Performed By: #### 5 7021-8 ####[facility] LABIA [id number] [place] [address] [place] Fam 10-29-2023 SHUKRI Telephone ([facility]) VIOLET HERNANDEZ ([id number]) 1985 F Date Time Provider Department 10/29/23 LEE KATZ [facility] During your visit today, we [...] Signed Pt wants a letter sent via [employer]. I am happy to get that drafted up but what do you think in terms of time off can she return at 4 weeks with restrictions? Allergies As of Date: 10/29/2023 (No Known Allergies) Date Reviewed: 10/26/2023 Reviewed by: Tracey Fowler, RN - Fully Assessed Reason for Visit: Patient Question [0707] Prescriptions as of 11/17/2023 - ibuprofen (MOTRIN) [...] Status:Closed by CHELSI MOTA on 11/17/23 Normal [facility] TYPE AND SCREEN,30 DAYon ABO A Normal [facility] Comment on above: Order Comment: Speci men Type: BLOOD SPECIMEN [facility] Address: [address] [place] [address] Performed By: #### T SCR30 #### [facility] CLIA [id number] [address] [place] [address] [place] HISTORICAL AB SCR STATUS Negative Normal [facility] Comment on above: Order Comment: Speci men Type: BLOOD SPECIMEN [facility] Address: [address] [place] [address] Performed By: #### T SCR30 #### [facility] CLIA [id number] [address] [place] [address] [place] Rh Nom (Bld) Negative Normal [facility] Comment on above: Order Comment: Speci men Type: BLOOD SPECIMEN [facility]: [facility] Address: [address] [place] [address] Performed By: #### T SCR30 #### [facility] CLIA [id number] [address] [place] [address] OF [place]Y CNPCoco 10-28-2023 CNPN Telephone ([facility]) VIOLET HERNANDEZ ([id number]) 1985 F Date Time Provider Department 10/28/23 LEE KATZ [facility] During your visit today, we recorded the following information about you: Emerita Payan 10/28/2023 9:01 AM Signed Patient calling into [...] would need. Please advise. Thank you Lakeshia Fox RN 10/28/2023 11:18 AM Signed Called patient LVMatt to call the office Surgery scheduled for 11/10/2023-- this should not be a problem Recovery time is 6 weeks , not lifting, pushing, pulling more than 10 lbs Can return to work sooner if she has a job that can accommodate this SHARMILA Mcgraw Lindsay, APRN.ADJUNCT PROFESSOR OF ENGLISH 10/28/2023 12:38 PM Signed Encounter Diagnosis ICD-10-CM 1. Preop testing Z01.818 COMPLETE BLOOD COUNT AND DIFFERENTIAL TYPE AND SCREEN,30 DAY Allergies As of Date: 10/28/2023 (No Known Allergies) Date Reviewed: 10/26/2023 Reviewed by: Tracey Fowler RN - Fully Assessed Reason for Visit: Patient Question [1477] Primary Visit Diagnosis:Preop testing [Z01.818] Order(s):COMPLETE BLOOD COUNT AND DIFFERENTIAL [SQCBCDIF] Order #: [id number] FUTURE TYPE AND SCREEN,30 DAY [[id number]] Order #: [id number] FUTURE Prescriptions as of 10/28/2023 - naltrexone [...] 1 tablet by oral route daily - xhnbjtm-nrnpavdip-fvohg in D3 500 mg(1,250mg) -200 unit per tablet Calcium 500 + D 500 mg (1,250 mg)-200 unit tablet take 1 tablet by oral route 2 times a day Problem List As Of Date 10/28/2023 Noted Resolved Obesity, Class I, BMI 30-34.9 [E66.9] 05/19/2023 Encounter Status:Closed by JEANIE YU on 10/28/23 [facility] CNOVayana 10-26-2023 CNOV Office Visit (GMIGFV ) VIOLET HERNANDEZ ([id number]) 1985 F Date Time Provider Department 10/26/23 9:30 AM LEE KATZ IGFV During your visit today, we recorded the following information about you: Blood pressure Weight Height 116/79 70.8 kg 1.473 m Lee Katz DO 10/26/2023 5:49 PM Signed [facility] SECTION FOR MINIMALLY INVASIVE GYNECOLOGIC SURGERY OUTPATIENT VISIT DATE 10/26/2023 OUTPATIENT VISIT TYPE NEW PRIMARY CARE PHYSICIAN: Emily Sanders (Mk) [id number] [place] [address] REFERRING PHYSICIAN: Leo Barnett Consultation requested by [...] free fluid is present. 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 djginkb-qcaebkcjj-vmsrw in D3 500 mg(1,250mg) -200 unit per tablet Calcium 500 + D 500 mg (1,250 mg)-200 unit tablet take 1 tablet by oral route 2 times a day (Patient not taking: Reported on 05/19/2023) No current facility-administe (more content not included)... Normal [facility] Celiac Disease Profileon ENDOMYSIAL IGA Negative Normal Negative [facility] Comment on above: Performed By: #### L 351.0420, Z4200.2400 ####[facility] [id number] [place], [place], [address] IMMUNOGLOB A QN 182 mg/dL Normal 87-352 [facility] Comment on above: Result Comment: Perf ormed at: [facility] [address] [id number] Director Of Community Center: Jorgito Cunningham PhD, Phone: [phone] Performed By: #### L 501.6710, L3410.2400 ####[facility] [id number] [place], [place], [address] tTG IGA <2 Normal 0-3 [facility] Comment on above: Result Comment: Nega tive 0 - 3 Weak Positive 4 - 10 Positive >10 Tissue Transglutaminase (tTG) has been identified as the endomysial antigen. Studies have demonstr- ated that endomysial IgA antibodies have over 99% specificity for gluten sensitive enteropathy. Performed By: #### L 501.6710, L3410.2400 ####[facility] [id number] [place], [place], [address] Urgent Care Visit Reporton 0 10-06-2023 Urgent Care Visit Report [facility] [address], [address] [place], [place] [address] OFFICE VISIT Date of Service: 10/06/23 MR#: [id number] Acct: [id number] Name: VIOLET HERNANDEZ Rep #: [id number] : 1985 Provider: ELIZABETH Lala Age/Sex: 37/F Location: [facility] Status: Signed Intake Vital Signs 08/21/23 13:06 [...] headache jaw teeth sinus pressure st aches Assisted Living Associate Required: No Accompanied by: Son Is patient [...] similar URI complaints -including and son. No ryfp-fzu-noybpwa taken to assist. No other associated symptoms [...] postnasal drainage (more content not included)... Normal [facility] CRPon 10-05-2023 C-REACTIVE PROT 4.40 mg/L High 0.0-3.0 [facility] Comment on above: Result Comment: C-Re active Protein (CRP) provides useful information for the diagnosis, therapy and monitoring of inflammatory processes and associated diseases. For the evaluation of Relative Risk for Cardiovascular Disease, a High Sensitivity CRP (HSCRP) should be ordered. Performed By: #### L 501.6710, L3410.2400 ####[facility] [id number] [place], [address] [facility] 08-17-2023 [facility] Telephone (GYMGME) VIOLET HERNANDEZ ([id number]) 1985 F Date Time Provider Department 08/17/23 LEE KATZ During your visit today, we recorded the following information about you: Sherly Daily 08/17/2023 8:50 AM Signed Pt called in and [facility] re: surgery consult appointment Pt scheduled for [...] am concerned with performing Laparoscopic procedure in [place] as morcellation and removal of uterus and closure of cuff would be difficult due to limited vaginal access. I would recommend consultation with [facility] for Laparoscopic morcellation. Pt agreeable to this plan. I will send chart to Dr. Katz in [place]. Medical Decision Making: Problems: Moderate: 1+ chronic illnesses with change Risk: High: Decision on elective major surgery w/ risk factors Medical Decision Making Level: 4 - Moderate Leo Abdi MD Will route to Dr. Billow to respond. Ok to send a mychart update to pt. Lakeshia Fox RN 08/17/2023 9:50 AM Signed Called patient verified name and Relayed message below Patient understood and was thankful for the call Lakeshia Fox RN Lee Katz DO Ogi A81 Nurse [id number] minutes ago (9:30 AM) MB Yes. Pls tell her yes. Allergies As of Date: 08/17/2023 (No Known Allergies) Date Reviewed: 08/12/2023 Reviewed by: Edith Infante MA - Fully Assessed Reason for Visit: Patient Question [4157] Prescriptions as of 08/17/2023 - naltrexone HCl [...] 1 tablet by oral route daily - ohfrbua-klblpxprr-mlskq in D3 500 mg(1,250mg) -200 unit per tablet Calcium 500 + D 500 mg (1,250 mg)-200 unit tablet take 1 tablet by oral route 2 times a day Problem List As Of Date 08/17/2023 Noted Resolved Obesity, Class I, BMI 30-34.9 [E66.9] 05/19/2023 Encounter Status:Closed by SHERLY DAILY on 08/17/23 [facility] SHUKRI Telephone (ALMA DELIAE) DAVIDVIOLET Matt ([id number]) 1985 F Date Time Provider Department 08/14/23 [...] regards to hysterectomy. Please call patient at [phone]. Thanks Lee Jama Allergies As of Date: [...] 1 tablet by oral route daily - ktdiwhy-njbnsyeri-pvuns in D3 500 mg(1,250mg) -200 unit per tablet Calcium 500 + D 500 mg (1,250 mg)-200 unit tablet take 1 tablet by oral route 2 times a day Problem List As Of Date 08/14/2023 Noted Resolved Obesity, Class I, BMI 30-34.9 [E66.9] 05/19/2023 Encounter Status:Closed by LEE JAMA on 08/14/23 [facility] CNOVon 08-12-2023 CNOV Office Visit (OBGYWM ) VIOLET HERNANDEZ ([id number]) 1985 F Date Time Provider Department 08/12/23 11:40 AM LEO BARNETT OBLEVYWMatt During your visit today, we recorded the following information about you: Blood pressure Weight 118/72 71.7 kg Leo Barnett MD 08/12/2023 1:13 PM Signed Surgical Nurse Practitioner offered: Patient declines. 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 I would [facility] for Laparoscopic morcellation. Pt agreeable to this plan. I will send chart to Dr. Katz in [place]. Medical Decision Making: Problems: Moderate: 1+ chronic illnesses with ch (more content not included)... Normal [facility] Estimated glomerular filtrat ion rate (GFR) AmericanOrdered By: Gene Braun on 08-06-2023 Estimated GFR (MDRD) Amer 84 mL/min >60 [facility] Comment on above: GFR Calc Hemoglobin (Reticulocytes) [ Entitic mass]Ordered By: Gene Braun on 08-06-2023 Reticulocyte Hemoglobin Equivalent 39.8 pg High 30-35 [facility] Immature reticulocyte fracti onOrdered By: Gene Braun on 08-06-2023 Immature Reticulocyte Fraction 31.20 % High 3.00-15.90 [facility] Reticulocyte hemoglobin equi valent (RET-He) measurementOrdered By: Gene Braun on 08-06-2023 Hemoglobin (Reticulocytes) [Entitic mass] 39.8 pg High 30-35 [facility] Reticulocytes Auto (Bld) [#/ Vol]Ordered By: Gene Braun on 08-06-2023 Reticulocyte Count 2.76 % High 0.5-1.5 [facility] Reticulocytes/100 RBC (Bld) 2.76 % High 0.5-1.5 [facility] CNPNon 06-30-2023 DANAN Telephone (OBGYWM) VIOLET HERNANDEZ ([id number]) 1985 F Date Time Provider Department 06/30/23 SHERLY NG During your visit today, we recorded the following information about you: Jenny Bull RN 06/30/2023 9:57 AM Signed Patient calling because she saw u/s results on mychart. Asking what she needs to do next. SHARMILA Moreira Amy, APRN.ADJUNCT PROFESSOR OF ENGLISH 06/30/2023 1:09 PM Signed I will discuss with one of the physicians before discussing with her so it may be a few days before I get back with her. Sherly Ng APRN.Sherly Rivera APRN.ADJUNCT PROFESSOR OF ENGLISH 07/02/2023 12:58 PM Signed Pt called with [...] 1 tablet by oral route daily - elfrppd-onxvhuuwr-uigio in D3 500 mg(1,250mg) -200 unit per tablet Calcium 500 + D 500 mg (1,250 mg)-200 unit tablet take 1 tablet by oral route 2 times a day Problem List As Of Date 06/30/2023 Noted Resolved Obesity, Class I, BMI 30-34.9 [E66.9] 05/19/2023 Encounter Status:Closed by SHERLY NG on 07/02/23 [facility] FEMALE PELVIS TRANSVAGon 06-26-2023 FEMALE PELVIS TRANSVAG * * *Final Report* * * DATE OF EXAM: Jun 26 2023 3:34PM [facility] 1060 - US FEMALE PELVIS TRANSVAG / [...] and stored in a permanent archive. MQ: [id number] COMPARISON: Pelvic ultrasound 02/23/2020 RESULT: Uterus: -Size: [...] IMPRESSION: Ovaries not visualized. 7.4 cm fibroid. Exchange Teller: RENEE Transcribe Date/Time: Jun 27 2023 11:40P Dictated by : SARKIS TREVIÑO DO This examination was interpreted and the report reviewed and electronically signed by: SARKIS TREVIÑO DO on Jun 27 2023 11:45PM EST [id number] Normal [facility] Basophil percentageOrdered B y: Emily Sanders on 05-29-2023 Cholesterol [Mass/Vol] 219 mg/dL <200 [facility] Comment on above: <200 mg/dL Desirable 200-240 mg/dL Borderline >240 mg/dL High Risk Triglyceride [Mass/Vol] 148 mg/dL <199 [facility] Comment on above: The drugs N-Acetylcy steine and Metamizole may falsely depress this assay.Serum Triglycerides Reference Interval Normal <150 mg/dL Borderline high 150 - 199 mg/dL High 200 - 499 mg/dL Very High > or = 500 mg/dL Laboratory - Chemistry and C hemistry - challengeOrdered By: Emily Sanders on 05-29-2023 Cholesterol in HDL [Mass/Vol] 86 mg/dL >40 [facility] Comment on above: The drugs N-Acetylcy steine and Metamizole may falsely depress this assay. Reference Range HDL <40 mg/dL Low HDL Cholesterol HDL >or= 60 mg/dL High HDL Cholesterol Cholesterol in LDL [Mass/Vol] 103 mg/dL 0-130 [facility] No Panel InformationOrdered By: Emily Sanders on 05-29-2023 Vitamin D 25-Hydroxy 50.6 ng/mL [facility] Comment on above: Vitamin D 25(OH) Sta tus Range Deficiency <20 ng/mL (50nmol/L) Insufficiency 20 - 30 ng/mL (50 - 75 nmol/L) Sufficiency 30 - 100 ng/mL (75 - 250 nmol/L) Toxicity >100 ng/mL (>250 nmol/L) VLDL Cholesterol 30 mg/dL 5-40 [facility] Serum or plasma thyroid stim ulating hormone (TSH) measurement (units/volume)Ordered By: Emily Sanders on 05-29-2023 TSH Qn 2.50 uIU/mL 0.358-3.74 [facility] Thin prep Papanicolaou smear with manual screeningOrdered By: Emily Sanders on 05-29-2023 Thin prep Papanicolaou smear with manual screening 0.81 ng/dL 0.76-1.46 [facility] Whole blood hemoglobin A1c/t otal hemoglobin ratio (mass fraction)Ordered By: Emily Sanders on 05-29-2023 HbA1c (Bld) [Mass fraction] 5.2 % 3.8-5.6 [facility] Comment on above: Normal < 5.7 % Predi abetic 5.7 - 6.4 % Diabetic >or= 6.5 % Please note range changes. Basophil percentageOrdered B y: Gene Braun on 04-29-2023 Basophil percentage 5-10 SEEN /hpf 0-5 [facility] Bilirubin Test strip Ql (U)O rdered By: Gene Braun on 04-29-2023 Bilirubin Ql (U) Negative Negative [facility] Culture, urineOrdered By: Erin Braun on 04-29-2023 Bacteria identified Cx Nom (U) Culture exhibits no growth. [facility] Epithelial cells.squamous LM Ql (Urine sed)Ordered By: Gene Braun on 04-29-2023 Epithelial cells.squamous LM.HPF (Urine sed) [#/Area] 5 /[HPF] 5-10 [facility] Glucose Ql (U)Ordered By: Erin Braun on 04-29-2023 Urine Glucose (UA) Normal mg/dl Normal [facility] Ketones Test strip Ql (U)Ord ered By: Gene Braun on 04-29-2023 Ketones Ql (U) Negative Negative [facility] Microscopic analysis of urin e for red blood cells (RBC)Ordered By: Gene Braun on 04-29-2023 Microscopic analysis of urine for red blood cells (RBC) 0-5 SEEN /hpf 0-5 [facility] Urine RBC 0-5 SEEN /hpf 0-5 [facility] Mucus LM Ql (Urine sed)Order ed By: Gene Braun on 04-29-2023 Mucus Ql (Urine sed) 1+ /hpf [facility] Nitrite Test strip Ql (U)Ord ered By: Gene Braun on 04-29-2023 Nitrite Ql (U) Negative Negative [facility] Protein Test strip Ql (U)Ord ered By: Gene Braun on 04-29-2023 Protein Ql (U) 15 mg/dl High Negative [facility] Squamous epithelial cells de tection in urine sediment by light microscopyOrdered By: Gene Braun on 04-29-2023 Epithelial cells.squamous LM Ql (Urine sed) 5-10 SEEN /hpf 5-10 [facility] Urine blood detectionOrdered By: Gene Braun on 04-29-2023 RBC Ql (U) 50 /ul Negative [facility] Urine Occult Blood 50 /ul High Negative [facility] Urine clarityOrdered By: Pop Braun on 04-29-2023 Clarity (U) Clear Clear [facility] Urine color determinationOrd ered By: Gene Braun on 04-29-2023 Color (U) Yellow Yellow [facility] Urine glucose detectionOrder ed By: Gene Braun on 04-29-2023 Glucose Ql (U) Normal mg/dl Normal [facility] Urine leukocyte esterase det ection by dipstickOrdered By: Gene Braun on 04-29-2023 Leukocyte esterase Test strip Ql (U) 100 /ul High Negative [facility] Urine pHOrdered By: Gene bey on 04-29-2023 pH (U) 6.0 [pH] 5.0 - 8.0 [facility] Urine sediment bacteria coun t by microscopy (number/high power field)Ordered By: Gene Braun on 04-29-2023 Bacteria LM.HPF (Urine sed) [#/Area] 1 /[HPF] None Seen [facility] Urine specific gravity measu rementOrdered By: Gene Braun on 04-29-2023 Specific gravity (U) [Rel density] 1.020 1.002-1.030 [facility] Urine urobilinogen measureme ntOrdered By: Gene Braun on 04-29-2023 Urobilinogen Ql (U) Normal mg/dl Normal [facility] Urobilinogen Ql (U)Ordered B y: Gene Braun on 04-29-2023 Urine Urobilinogen Normal mg/dl Normal [facility] White blood cell countOrdere d By: Gene Braun on 04-29-2023 Urine WBC 5-10 SEEN /hpf 0-5 [facility] Absolute lymphocyte countOrd ered By: [facility] on 04-28-2023 Lymphocytes Auto (Unsp spec) [#/Vol] 0.67 10*3/uL 0.83-4.51 [facility] Automated lymphocyte count a s percentage of total leukocytesOrdered By: Gene Braun on 04-28-2023 Lymphocytes/100 WBC Auto (Unsp spec) 24.5 % 19-41 [facility] Basophil percentageOrdered B y: Gene Braun on 04-28-2023 Basophils/100 WBC (Bld) 0.7 % 0-1 [facility] Bilirubin [Mass/Vol] 0.20 mg/dL 0.20-1.00 [facility] Comment on above: For patients on eltr ombopag therapy, use of Dimension Lares TBIL is not recommended. Chloride [Moles/Vol] 105 mmol/L 98-107 [facility] Eosinophils/100 WBC (Bld) 3.3 % 0-5 [facility] Glucose [Mass/Vol] 132 mg/dL 74-106 [facility] Comment on above: Fasting Glucose resu lt greater than or equal to 126 mg/dL suggests DIABETES MELLITUS per A.D.A. criteria. Hemoglobin (Bld) [Mass/Vol] 12.4 g/dL 12.0-15.0 [facility] LDH [Catalytic activity/Vol] 232 U/L 84-246 [facility] Monocytes/100 WBC (Bld) 18.3 % 0-10 [facility] Neutrophils (Bld) [#/Vol] 1.4 10*3/uL 2.0-7.7 [facility] Neutrophils/100 WBC (Bld) 52.8 % 47-70 [facility] Potassium [Moles/Vol] 3.8 mmol/L 3.5-5.1 [facility] Protein [Mass/Vol] 7.2 g/dL 6.4-8.2 [facility] Sodium [Moles/Vol] 140 mmol/L 136-145 [facility] WBC (Bld) [#/Vol] 2.7 10*3/uL 4.4-11.0 [facility] Determination of erythrocyte mean corpuscular volume (MCV)Ordered By: Gene Braun on 04-28-2023 MCV (RBC) [Entitic vol] 109.6 fL 81-99 [facility] Erythrocyte distribution wid th ratioOrdered By: Gene Braun on 04-28-2023 Erythrocyte distribution width (RBC) [Ratio] 14.0 % 11.6-14.6 [facility] Erythrocyte distribution wid th standard deviationOrdered By: Gene Braun on 04-28-2023 Erythrocyte distribution width (RBC) [Entitic vol] 56.5 fL 35.1-43.9 [facility] Ferritin measurementOrdered By: Gene Braun on 04-28-2023 Ferritin [Mass/Vol] 208 ng/mL 8-252 [facility] Hematocrit Auto (Bld) [Volum e fraction]Ordered By: Gene Braun on 04-28-2023 Hematocrit (Bld) [Volume fraction] 37.6 % 37-47 [facility] Hemoglobin in reticulocytes (mass per reticulocyte)Ordered By: Gene Braun on 04-28-2023 Hemoglobin (Reticulocytes) [Entitic mass] 39.3 pg 30-35 [facility] Immature granulocytes/100 WB C Auto (Bld)Ordered By: Gene Braun on 04-28-2023 Immature granulocytes/100 WBC (Bld) 0.400 % 0.0-0.9 [facility] Comment on above: IG% - Immature Granu locytes (promyelocytes, myelocytes and metamyelocytes) > 1% indicates that a LEFT SHIFT is Present. Iron (Unsp spec) [Mass/Mass] Ordered By: Gene Braun on 04-28-2023 Iron [Mass/Vol] 142 ug/dL 50-170 [facility] Iron measurement (mass/mass) Ordered By: Gene Braun on 04-28-2023 Iron (Unsp spec) [Mass/Mass] 142 ug/dL 50-170 [facility] Iron saturation [Mass fracti on]Ordered By: Gene Braun on 04-28-2023 Iron Saturation 36.9 % 15.0-55.0 [facility] Laboratory - Chemistry and C hemistry - challengeOrdered By: Gene Braun on 04-28-2023 Albumin/Globulin [Mass ratio] 1.0 {ratio} 0.9-2.4 [facility] ALP [Catalytic activity/Vol] 71 U/L 45-117 [facility] ALT [Catalytic activity/Vol] 73 U/L 13-56 [facility] CO2 [Moles/Vol] 28.0 mmol/L 21.0-32.0 [facility] Globulin (S) [Mass/Vol] 3.6 g/dL 2.2-4.2 [facility] Urea nitrogen/Creatinine [Mass ratio] 15.1 mg/mg 10-20 [facility] Laboratory - Hematology and Cell countsOrdered By: Gene Braun on 04-28-2023 MCH (RBC) [Entitic mass] 36.2 pg 27.0-32.0 [facility] MCHC (RBC) [Mass/Vol] 33.0 g/dL 32-36 [facility] Nucleated RBC/100 WBC (Bld) [Ratio] 0 % 0-5 [facility] Platelet mean volume (Bld) [Entitic vol] 10.2 fL 6.2-12.0 [facility] Platelets (Bld) [#/Vol] 130 10*3/uL 150-450 [facility] No Panel InformationOrdered By: Gene Braun on 04-28-2023 Estimated Creatinine Clearance Calc 66.36 ml/min [facility] Estimated GFR (MDRD) Amer 87 mL/min >60 [facility] Comment on above: GFR Calc Estimated GFR (MDRD) Non-Af Amer 72 mL/min >60 [facility] Comment on above: Non- GFR Calc Immature Reticulocyte Fraction 27.60 % 3.00-15.90 [facility] RBC Auto (Bld) [#/Vol]Ordere d By: Gene Braun on 04-28-2023 RBC (Bld) [#/Vol] 3.43 10*6/uL 4.2-5.4 [facility] Reticulocytes Auto (Bld) [#/ Vol]Ordered By: Gene Braun on 04-28-2023 Reticulocytes/100 RBC (Bld) 2.20 % 0.5-1.5 [facility] Serum or plasma calcium ana maria urement (mass/volume)Ordered By: Gene Braun on 04-28-2023 Calcium [Mass/Vol] 8.8 mg/dL 8.5-10.1 [facility] Serum or plasma creatinine m easurement (mass/volume)Ordered By: Gene Braun on 04-28-2023 Creatinine [Mass/Vol] 0.93 mg/dL 0.55-1.02 [facility] Comment on above: The validity of the calculated GFR & GFRAA in patients over 70 years has not been determined. Clinical correlation is essential. Serum or plasma iron saturat ion measurement (mass fraction)Ordered By: Gene Braun on 04-28-2023 Iron saturation [Mass fraction] 36.9 % 15.0-55.0 [facility] Serum or plasma urea nitroge n measurement (mass/volume)Ordered By: Gene Braun on 04-28-2023 Urea nitrogen [Mass/Vol] 14 mg/dL 7-18 [facility] TIBCOrdered By: Gene Braun on 04-28-2023 Total Iron Binding Capacity 385 ug/dL 250-450 [facility] Thin prep Papanicolaou smear with manual screeningOrdered By: Gene Braun on 04-28-2023 Thin prep Papanicolaou smear with manual screening 3.6 g/dL 3.2-5.0 [facility] Thin prep Papanicolaou smear with manual screening 36 U/L 15-37 [facility] Thin prep Papanicolaou smear with manual screening 7 5-15 [facility] Urine cultureOrdered By: Pop Braun on 04-28-2023 Bacteria identified Cx Nom (U) Culture exhibits no growth. [facility] Basophil percentageOrdered B y: Emily Sanders on 02-10-2023 Basophil percentage 0 SEEN /hpf 0-5 [facility] Bilirubin Test strip Ql (U)O rdered By: Emily Sanders on 02-10-2023 Bilirubin Ql (U) Negative Negative [facility] Culture, urineOrdered By: Eduardo Sanders on 02-10-2023 Bacteria identified Cx Nom (U) Enterococcus faecalis [facility] Bacteria identified Cx Nom (U) Enterococcus faecalis [facility] Ketones Test strip Ql (U)Ord ered By: Emily Sanders on 02-10-2023 Ketones Ql (U) 5 mg/dl Negative [facility] Mucus LM Ql (Urine sed)Order ed By: Emily Sanders on 02-10-2023 Mucus Ql (Urine sed) 0 SEEN /hpf [facility] Nitrite Test strip Ql (U)Ord ered By: Emily Sanders on 02-10-2023 Nitrite Ql (U) Negative Negative [facility] Protein Test strip Ql (U)Ord ered By: Emily Sanders on 02-10-2023 Protein Ql (U) Negative Negative [facility] Squamous epithelial cells de tection in urine sediment by light microscopyOrdered By: Emily Sanders on 02-10-2023 Epithelial cells.squamous LM Ql (Urine sed) 5-10 SEEN /hpf 5-10 [facility] Urine blood detectionOrdered By: Emily Sanders on 02-10-2023 RBC Ql (U) 250 /ul Negative [facility] RBC Ql (U) 10-25 SEEN /hpf 0-5 [facility] Urine clarityOrdered By: Kaleb Sanders on 02-10-2023 Clarity (U) Sl. Cloudy Clear [facility] Urine color determinationOrd ered By: Emily Sanders on 02-10-2023 Color (U) Yellow Yellow [facility] Urine glucose detectionOrder ed By: Emily Sanders on 02-10-2023 Glucose Ql (U) Normal mg/dl Normal [facility] Urine leukocyte esterase det ection by dipstickOrdered By: Emily Sanders on 02-10-2023 Leukocyte esterase Test strip Ql (U) 25 /ul Negative [facility] Urine pHOrdered By: Miguel Sanders on 02-10-2023 pH (U) 5.0 [pH] 5.0 - 8.0 [facility] Urine sediment bacteria coun t by microscopy (number/high power field)Ordered By: Emily Sanders on 02-10-2023 Bacteria LM.HPF (Urine sed) [#/Area] 0 /[HPF] None Seen [facility] Urine specific gravity measu rementOrdered By: Emily Sanders on 02-10-2023 Specific gravity (U) [Rel density] 1.025 1.002-1.030 [facility] Urobilinogen Auto test strip Ql (U)Ordered By: Emily Sanders on 02-10-2023 Urobilinogen Ql (U) Normal mg/dl Normal [facility] [place] Absolute lymphocyte countOrd ered By: ED PROVIDER on 02-01-2023 Lymphocytes Auto (Unsp spec) [#/Vol] 0.90 10*3/uL 0.83-4.51 [facility] Basophil percentageOrdered B y: ED PROVIDER on 02-01-2023 Basophils/100 WBC (Bld) 0.6 % 0-1 [facility] Eosinophils/100 WBC (Bld) 4.1 % 0-5 [facility] Neutrophils (Bld) [#/Vol] 1.6 10*3/uL 2.0-7.7 [facility] Neutrophils/100 WBC (Bld) 49.2 % 47-70 [facility] WBC (Bld) [#/Vol] 3.2 10*3/uL 4.4-11.0 [facility] Basophil percentage 50-100 SEEN /hpf 0-5 [facility] Basophil percentageOrdered B y: Umang Matos on 02-01-2023 Bilirubin [Mass/Vol] 0.20 mg/dL 0.20-1.00 [facility] Comment on above: For patients on eltr ombopag therapy, use of Dimension Lares TBIL is not recommended. Chloride [Moles/Vol] 108 mmol/L 98-107 [facility] Glucose [Mass/Vol] 124 mg/dL 74-106 [facility] Comment on above: Fasting Glucose resu lt from 100 to 125 mg/dL suggests IMPAIRED HOMEOSTASIS per A.D.A. criteria. Potassium [Moles/Vol] 3.8 mmol/L 3.5-5.1 [facility] Protein [Mass/Vol] 6.6 g/dL 6.4-8.2 [facility] Sodium [Moles/Vol] 140 mmol/L 136-145 [facility] Beta hCG serum qualOrdered B y: Umang Matos on 02-01-2023 Beta HCG ( test) Ql Negative [facility] Bilirubin Test strip Ql (U)O rdered By: ED PROVIDER on 02-01-2023 Bilirubin Ql (U) Negative Negative [facility] Blood erythrocytes count (nu mber/volume)Ordered By: ED PROVIDER on 02-01-2023 RBC (Bld) [#/Vol] 3.18 10*6/uL 4.2-5.4 [facility] Blood hemoglobin measurement (mass/volume)Ordered By: ED PROVIDER on 02-01-2023 Hemoglobin (Bld) [Mass/Vol] 11.5 g/dL 12.0-15.0 [facility] Blood lymphocytes/100 leukoc ytesOrdered By: ED PROVIDER on 02-01-2023 Lymphocytes/100 WBC (Bld) 28.4 % 19-41 [facility] Blood monocytes/100 leukocyt esOrdered By: ED PROVIDER on 02-01-2023 Monocytes/100 WBC (Bld) 17.4 % 0-10 [facility] Blood platelet mean volumeOr dered By: ED PROVIDER on 02-01-2023 Platelet mean volume (Bld) [Entitic vol] 10.6 fL 6.2-12.0 [facility] Culture, urineOrdered By: James Barahonamanju on 02-01-2023 Bacteria identified Cx Nom (U) Culture exhibits no growth. [facility] Determination of erythrocyte mean corpuscular volume (MCV)Ordered By: ED PROVIDER on 02-01-2023 MCV (RBC) [Entitic vol] 108.5 fL 81-99 [facility] Hematocrit Auto (Bld) [Volum e fraction]Ordered By: ED PROVIDER on 02-01-2023 Hematocrit (Bld) [Volume fraction] 34.5 % 37-47 [facility] Ketones Test strip Ql (U)Ord ered By: ED PROVIDER on 02-01-2023 Ketones Ql (U) 5 mg/dl Negative [facility] Laboratory - Chemistry and C hemistry - challengeOrdered By: Umang Matos on 02-01-2023 ALP [Catalytic activity/Vol] 66 U/L 45-117 [facility] ALT [Catalytic activity/Vol] 66 U/L 13-56 [facility] CO2 [Moles/Vol] 26.0 mmol/L 21.0-32.0 [facility] Globulin (S) [Mass/Vol] 3.2 g/dL 2.2-4.2 [facility] Lipase [Catalytic activity/Vol] 28 U/L 13-75 [facility] Comment on above: Please note:LIPASE r evised reference range effective 22. New Lipase methodology. Expected to produce lower values than the previous assay method. NEW Reference Range: 13 - 75 U/L Urea nitrogen/Creatinine [Mass ratio] 15.0 mg/mg 10-20 [facility] Laboratory - Hematology and Cell countsOrdered By: ED PROVIDER on 02-01-2023 Erythrocyte distribution width (RBC) [Entitic vol] 55.8 fL 35.1-43.9 [facility] Erythrocyte distribution width (RBC) [Ratio] 14.0 % 11.6-14.6 [facility] Immature granulocytes/100 WBC (Bld) 0.300 % 0.0-0.9 [facility] Comment on above: IG% - Immature Granu locytes (promyelocytes, myelocytes and metamyelocytes) > 1% indicates that a LEFT SHIFT is Present. MCH (RBC) [Entitic mass] 36.2 pg 27.0-32.0 [facility] Nucleated RBC/100 WBC (Bld) [Ratio] 0 % 0-5 [facility] MCHC Auto (RBC) [Mass/Vol]Or dered By: ED PROVIDER on 02-01-2023 MCHC (RBC) [Mass/Vol] 33.3 g/dL 32-36 [facility] [place] Mucus LM Ql (Urine sed)Order ed By: ED PROVIDER on 02-01-2023 Mucus Ql (Urine sed) 0 SEEN /hpf [facility] Nitrite Test strip Ql (U)Ord ered By: ED PROVIDER on 02-01-2023 Nitrite Ql (U) Negative Negative [facility] No Panel InformationOrdered By: Umang Matos on 02-01-2023 Estimated Creatinine Clearance Calc 82.00 ml/min [facility] Estimated GFR (MDRD) Amer 80 mL/min >60 [facility] Comment on above: GFR Calc Estimated GFR (MDRD) Non-Af Amer 66 mL/min >60 [facility] Comment on above: Non- GFR Calc Platelets bldOrdered By: ED PROVIDER on 02-01-2023 Platelets (Bld) [#/Vol] 128 10*3/uL 150-450 [facility] Protein Test strip Ql (U)Ord ered By: ED PROVIDER on 02-01-2023 Protein Ql (U) 30 mg/dl Negative [facility] Serum or plasma albumin ana maria urement (mass/volume)Ordered By: Umang Matos on 02-01-2023 Albumin [Mass/Vol] 3.4 g/dL 3.2-5.0 [facility] Serum or plasma albumin/glob ulin mass ratioOrdered By: Umang Matos on 02-01-2023 Albumin/Globulin [Mass ratio] 1.1 {ratio} 0.9-2.4 [facility] Serum or plasma calcium ana maria urement (mass/volume)Ordered By: Umang aMtos on 02-01-2023 Calcium [Mass/Vol] 9.1 mg/dL 8.5-10.1 [facility] Serum or plasma creatinine m easurement (mass/volume)Ordered By: Umang Matos on 02-01-2023 Creatinine [Mass/Vol] 1.00 mg/dL 0.55-1.02 [facility] [place] Comment on above: The validity of the calculated GFR & GFRAA in patients over 70 years has not been determined. Clinical correlation is essential. Serum or plasma urea nitroge n measurement (mass/volume)Ordered By: Umang Matos on 02-01-2023 Urea nitrogen [Mass/Vol] 15 mg/dL 7-18 [facility] Squamous epithelial cells de tection in urine sediment by light microscopyOrdered By: ED PROVIDER on 02-01-2023 Epithelial cells.squamous LM Ql (Urine sed) 0-5 SEEN /hpf 5-10 [facility] Thin prep Papanicolaou smear with manual screeningOrdered By: Umang Matos on 02-01-2023 Thin prep Papanicolaou smear with manual screening 30 U/L 15-37 [facility] Thin prep Papanicolaou smear with manual screening 6 5-15 [facility] Urine blood detectionOrdered By: ED PROVIDER on 02-01-2023 RBC Ql (U) 250 /ul Negative [facility] RBC Ql (U) 0-5 SEEN /hpf 0-5 [facility] Urine clarityOrdered By: ED PROVIDER on 02-01-2023 Clarity (U) Cloudy Clear [facility] Urine color determinationOrd ered By: ED PROVIDER on 02-01-2023 Color (U) Yellow Yellow [facility] Urine glucose detectionOrder ed By: ED PROVIDER on 02-01-2023 Glucose Ql (U) Normal mg/dl Normal [facility] Urine leukocyte esterase det ection by dipstickOrdered By: ED PROVIDER on 02-01-2023 Leukocyte esterase Test strip Ql (U) 500 /ul Negative [facility] Urine pHOrdered By: ED PROVI LINDA on 02-01-2023 pH (U) 6.5 [pH] 5.0 - 8.0 [facility] Urine sediment bacteria coun t by microscopy (number/high power field)Ordered By: ED PROVIDER on 02-01-2023 Bacteria LM.HPF (Urine sed) [#/Area] 1 /[HPF] None Seen [facility] Urine specific gravity measu rementOrdered By: ED PROVIDER on 02-01-2023 Specific gravity (U) [Rel density] 1.015 1.002-1.030 [facility] Urobilinogen Auto test strip Ql (U)Ordered By: ED PROVIDER on 02-01-2023 Urobilinogen Ql (U) 1 mg/dl Normal [facility] Basophil percentageOrdered B y: Miki Lui on 12-17-2022 Basophil percentage 5-10 SEEN /hpf 0-5 [facility] Bilirubin Test strip Ql (U)O rdered By: Miki Lui on 12-17-2022 Bilirubin Ql (U) Negative Negative [facility] Culture, urineOrdered By: Ruba Lui on 12-17-2022 Bacteria identified Cx Nom (U) Culture exhibits no growth. [facility] Ketones Test strip Ql (U)Ord ered By: Miki Lui on 12-17-2022 Ketones Ql (U) 5 mg/dl Negative [facility] Mucus LM Ql (Urine sed)Order ed By: Miki Lui on 12-17-2022 Mucus Ql (Urine sed) 0 SEEN /hpf [facility] Nitrite Test strip Ql (U)Ord ered By: Miki Lui on 12-17-2022 Nitrite Ql (U) Negative Negative [facility] Protein Test strip Ql (U)Ord ered By: Miki Lui on 12-17-2022 Protein Ql (U) 15 mg/dl Negative [facility] Squamous epithelial cells de tection in urine sediment by light microscopyOrdered By: Miki Lui on 12-17-2022 Epithelial cells.squamous LM Ql (Urine sed) 0-5 SEEN /hpf 5-10 [facility] Urine blood detectionOrdered By: Miki Lui on 12-17-2022 RBC Ql (U) 250 /ul Negative [facility] RBC Ql (U) 0 SEEN /hpf 0-5 [facility] Urine clarityOrdered By: Keshav Lui on 12-17-2022 Clarity (U) Clear Clear [facility] Urine color determinationOrd ered By: Miki Lui on 12-17-2022 Color (U) Yellow Yellow [facility] Urine glucose detectionOrder ed By: Miki Lui on 12-17-2022 Glucose Ql (U) 50 mg/dl Normal [facility] Urine leukocyte esterase det ection by dipstickOrdered By: Miki Lui on 12-17-2022 Leukocyte esterase Test strip Ql (U) 500 /ul Negative [facility] Urine pHOrdered By: Miki hudson on 12-17-2022 pH (U) 6.0 [pH] 5.0 - 8.0 [facility] Urine sediment bacteria coun t by microscopy (number/high power field)Ordered By: Miki Lui on 12-17-2022 Bacteria LM.HPF (Urine sed) [#/Area] RARE /hpf None Seen [facility] Urine specific gravity measu rementOrdered By: Miki Lui on 12-17-2022 Specific gravity (U) [Rel density] 1.020 1.002-1.030 [facility] Urobilinogen Auto test strip Ql (U)Ordered By: Miki Lui on 12-17-2022 Urobilinogen Ql (U) Normal mg/dl Normal [facility] [place] MRI CERVICAL SPINE WO IVCONo n 10-18-2021 [facility] Absolute lymphocyte counton 07-01-2021 Lymphocytes Auto (Unsp spec) [#/Vol] 0.42 10*3/uL 0.83-4.51 [facility] Work Phone: Basophil percentageon 2021 Basophils/100 WBC (Bld) 0.4 % 0-1 [facility] Work Phone: Bilirubin [Mass/Vol] 0.30 mg/dL 0.20-1.00 [facility] Work Phone: Comment on above: For patients on eltr ombopag therapy, use of Dimension Lares TBIL is not recommended. Chloride [Moles/Vol] 107 mmol/L 98-107 [facility] Work Phone: Eosinophils/100 WBC (Bld) 3.9 % 0-5 [facility] Work Phone: Glucose [Mass/Vol] 186 mg/dL 74-106 [facility] Work Phone: Comment on above: Fasting Glucose resu lt greater than or equal to 126 mg/dL suggests DIABETES MELLITUS per A.D.A. criteria. Neutrophils (Bld) [#/Vol] 1.5 10*3/uL 2.0-7.7 [facility] Work Phone: Neutrophils/100 WBC (Bld) 63.9 % 47-70 [facility] Work Phone: [phone] Potassium [Moles/Vol] 4.0 mmol/L 3.5-5.1 [facility] Work Phone: Comment on above: Slight Hemolysis, Re sult may be falsely increased. Protein [Mass/Vol] 7.0 g/dL 6.4-8.2 [facility] Work Phone: Sodium [Moles/Vol] 139 mmol/L 136-145 [facility] Work Phone: WBC (Bld) [#/Vol] 2.3 10*3/uL 4.4-11.0 [facility] Work Phone: Blood erythrocytes count (nu mber/volume)on 07-01-2021 RBC (Bld) [#/Vol] 3.27 10*6/uL 4.2-5.4 [facility] Work Phone: Blood hemoglobin measurement (mass/volume)on 07-01-2021 Hemoglobin (Bld) [Mass/Vol] 11.8 g/dL 12.0-15.0 [facility] Work Phone: Blood lymphocytes/100 leukoc yteson 07-01-2021 Lymphocytes/100 WBC (Bld) 18.3 % 19-41 [facility] Work Phone: Blood manual differential co mment interpretation (narrative result)on 07-01-2021 Manual differential comment Robin (Bld) [Interp] SCANNED [facility] Work Phone: Comment on above: LYMPHOPENIA NOTED Blood monocytes/100 leukocyt eson 07-01-2021 Monocytes/100 WBC (Bld) 13.5 % 0-10 [facility] Work Phone: Blood platelet mean volumeon 07-01-2021 Platelet mean volume (Bld) [Entitic vol] 11.2 fL 6.2-12.0 [facility] Work Phone: Determination of erythrocyte mean corpuscular volume (MCV)on 07-01-2021 MCV (RBC) [Entitic vol] 106.1 fL 81-99 [facility] Work Phone: Hematocrit Auto (Bld) [Volum e fraction]on 07-01-2021 Hematocrit (Bld) [Volume fraction] 34.7 % 37-47 [facility] Work Phone: Laboratory - Chemistry and C hemistry - challengeon 07-01-2021 ALP [Catalytic activity/Vol] 78 U/L 45-117 [facility] Work Phone: ALT [Catalytic activity/Vol] 91 U/L 13-56 [facility] Work Phone: CO2 [Moles/Vol] 22.0 mmol/L 21.0-32.0 [facility] Work Phone: Free T4 [Mass/Vol] 0.75 ng/dL 0.76-1.46 [facility] Work Phone: Globulin (S) [Mass/Vol] 3.5 g/dL 2.2-4.2 [facility] Work Phone: Urea nitrogen/Creatinine [Mass ratio] 15.1 mg/mg 10-20 [facility] Work Phone: Laboratory - Hematology and Cell countson 07-01-2021 Erythrocyte distribution width (RBC) [Entitic vol] 54.9 fL 35.1-43.9 [facility] Work Phone: Erythrocyte distribution width (RBC) [Ratio] 13.9 % 11.6-14.6 [facility] Work Phone: Immature granulocytes/100 WBC (Bld) 0.000 % 0.0-0.9 [facility] Work Phone: Comment on above: IG% - Immature Granu locytes (promyelocytes, myelocytes and metamyelocytes) > 1% indicates that a LEFT SHIFT is Present. MCH (RBC) [Entitic mass] 36.1 pg 27.0-32.0 [facility] Work Phone: Nucleated RBC/100 WBC (Bld) [Ratio] 0 % 0-5 [facility] Work Phone: MCHC Auto (RBC) [Mass/Vol]on 07-01-2021 MCHC (RBC) [Mass/Vol] 34.0 g/dL 32-36 [facility] Work Phone: No Panel Informationon 07-01 Estimated GFR (MDRD) Amer 75 mL/min >60 [facility] Work Phone: Comment on above: GFR Calc Estimated GFR (MDRD) Non-Af Amer 62 mL/min >60 [facility] Work Phone: Comment on above: Non- GFR Calc Thyroid Stimulating Hormone (TSH) 2.02 uIU/mL 0.358-3.74 [facility] Work Phone: Vitamin D 25-Hydroxy 59.0 ng/mL [facility] Work Phone: Comment on above: Vitamin D 25(OH) Sta tus Range Deficiency <20 ng/mL (50nmol/L) Insufficiency 20 - 30 ng/mL (50 - 75 nmol/L) Sufficiency 30 - 100 ng/mL (75 - 250 nmol/L) Toxicity >100 ng/mL (>250 nmol/L) Platelets bldon 07-01-2021 Platelets (Bld) [#/Vol] 125 10*3/uL 150-450 [facility] Work Phone: Review by pathologiston 06-10 Pathologist review Robin (Unsp spec) [Interp] Reviewed [facility] Work Phone: Comment on above: Previous reported re sult: Yajaira falk Edited by: FABRICE on 07/02/21:1235Pancytopenia.Leukopenia and Neutropenia.Macrocytic anemia.Mild ThrombocytopeniaClinical correlation necessary.Jose Fernando M.D. 07/02/21 AMENDED REPORT 07/02/21 1235 PATH REV previously reported as: Yajaira falk Serum or plasma albumin ana maria urement (mass/volume)on 07-01-2021 Albumin [Mass/Vol] 3.5 g/dL 3.2-5.0 [facility] Work Phone: Serum or plasma albumin/glob ulin mass ratioon 07-01-2021 Albumin/Globulin [Mass ratio] 1.0 {ratio} 0.9-2.4 [facility] Work Phone: Serum or plasma calcium ana maria urement (mass/volume)on 07-01-2021 Calcium [Mass/Vol] 8.6 mg/dL 8.5-10.1 [facility] Work Phone: Serum or plasma creatinine m easurement (mass/volume)on 07-01-2021 Creatinine [Mass/Vol] 1.06 mg/dL 0.55-1.02 [facility] [place] Work Phone: Comment on above: The validity of the calculated GFR & GFRAA in patients over 70 years has not been determined. Clinical correlation is essential. Serum or plasma thyroxine bi nding globulin (TBG) measurement (mass/volume)on 07-01-2021 TBG [Mass/Vol] 27 ug/mL [facility] Work Phone: Comment on above: Performed at: - [address] [id number] Director: Montserrat Gibbons MD, Phone: [phone] Serum or plasma urea nitroge n measurement (mass/volume)on 07-01-2021 Urea nitrogen [Mass/Vol] 16 mg/dL 7-18 [facility] Work Phone: Thin prep Papanicolaou smear with manual screeningon 07-01-2021 Thin prep Papanicolaou smear with manual screening 49 U/L 15-37 [facility] Work Phone: Comment on above: Slight Hemolysis, Re sult may be falsely increased. Thin prep Papanicolaou smear with manual screening 10 5-15 [facility] Work Phone: Whole blood hemoglobin A1c/t otal hemoglobin ratio (mass fraction)on 07-01-2021 HbA1c (Bld) [Mass fraction] 5.1 % 3.8-5.6 [facility] Work Phone: Comment on above: Normal < 5.7 % Predi abetic 5.7 - 6.4 % Diabetic >or= 6.5 % Please note range changes. Absolute lymphocyte counton 04-17-2021 Lymphocytes Auto (Unsp spec) [#/Vol] 0.60 10*3/uL 0.83-4.51 [facility] Work Phone: Basophil percentageon 2021 Basophils/100 WBC (Bld) 0.4 % 0-1 [facility] Work Phone: Bilirubin [Mass/Vol] 0.30 mg/dL 0.20-1.00 [facility] Work Phone: Comment on above: For patients on eltr ombopag therapy, use of Dimension Lares TBIL is not recommended. Chloride [Moles/Vol] 105 mmol/L 98-107 [facility] Work [facility]: Eosinophils/100 WBC (Bld) 1.6 % 0-5 [facility] Work Phone: Glucose [Mass/Vol] 85 mg/dL 74-106 [facility] Work Phone: Neutrophils (Bld) [#/Vol] 1.4 10*3/uL 2.0-7.7 [facility] Work Phone: Neutrophils/100 WBC (Bld) 57.6 % 47-70 [facility] Work Phone: Potassium [Moles/Vol] 4.1 mmol/L 3.5-5.1 [facility] Work Phone: Protein [Mass/Vol] 7.1 g/dL 6.4-8.2 [facility] Work Phone: Sodium [Moles/Vol] 137 mmol/L 136-145 [facility] Work Phone: WBC (Bld) [#/Vol] 2.5 10*3/uL 4.4-11.0 [facility] Work Phone: Blood erythrocytes count (nu mber/volume)on 04-17-2021 RBC (Bld) [#/Vol] 3.41 10*6/uL 4.2-5.4 [facility]: Blood hemoglobin measurement (mass/volume)on 04-17-2021 Hemoglobin (Bld) [Mass/Vol] 12.7 g/dL 12.0-15.0 [facility] Work Phone: Blood lymphocytes/100 leukoc yteson 04-17-2021 Lymphocytes/100 WBC (Bld) 24.5 % 19-41 [facility] Work Phone: Blood monocytes/100 leukocyt eson 04-17-2021 Monocytes/100 WBC (Bld) 15.5 % 0-10 [facility] Work Phone: Blood platelet mean volumeon 04-17-2021 Platelet mean volume (Bld) [Entitic vol] 10.2 fL 6.2-12.0 [facility] Work Phone: Determination of erythrocyte mean corpuscular volume (MCV)on 04-17-2021 MCV (RBC) [Entitic vol] 107.9 fL 81-99 [facility] Work Phone: Hematocrit Auto (Bld) [Volum e fraction]on 04-17-2021 Hematocrit (Bld) [Volume fraction] 36.8 % 37-47 [facility] Work Phone: Laboratory - Chemistry and C hemistry - challengeon 04-17-2021 ALP [Catalytic activity/Vol] 67 U/L 45-117 [facility] Work Phone: ALT [Catalytic activity/Vol] 61 U/L 13-56 [facility] Work Phone: CO2 [Moles/Vol] 25.0 mmol/L 21.0-32.0 [facility] Work Phone: Globulin (S) [Mass/Vol] 3.3 g/dL 2.2-4.2 [facility] Work Phone: Urea nitrogen/Creatinine [Mass ratio] 16.0 mg/mg 10-20 [facility] Work Phone: Laboratory - Hematology and Cell countson 04-17-2021 Erythrocyte distribution width (RBC) [Entitic vol] 58.6 fL 35.1-43.9 [facility] Work Phone: Erythrocyte distribution width (RBC) [Ratio] 14.7 % 11.6-14.6 [facility] Work Phone: Immature granulocytes/100 WBC (Bld) 0.400 % 0.0-0.9 [facility] Work Phone: Comment on above: IG% - Immature Granu locytes (promyelocytes, myelocytes and metamyelocytes) > 1% indicates that a LEFT SHIFT is Present. MCH (RBC) [Entitic mass] 37.2 pg 27.0-32.0 [facility] Work Phone: Nucleated RBC/100 WBC (Bld) [Ratio] 0 % 0-5 [facility] Work Phone: MCHC Auto (RBC) [Mass/Vol]on 04-17-2021 MCHC (RBC) [Mass/Vol] 34.5 g/dL 32-36 [facility] Work Phone: No Panel Informationon 04-17 Estimated Creatinine Clearance Calc 83.54 ml/min [facility] Work Phone: Estimated GFR (MDRD) Amer 94 mL/min >60 [facility] Work Phone: Comment on above: GFR Calc Estimated GFR (MDRD) Non-Af Amer 78 mL/min >60 [facility] Work Phone: Comment on above: Non- GFR Calc Pathologist review Robin (Unsp spec) [Interp]on 04-17-2021 Differential Pathologist's Review Reviewed [facility] Comment on above: Previous reported re sult: May foll Edited by: RGOOD on 04/18/21:1247Leukopenia and neutropenia.Macrocytosis.Clinical correlation necessary.Jose Fernando M.D. 04/18/21 AMENDED REPORT 04/18/211246 PATH REV previously reported as: June dileep Platelets bldon 04-17-2021 Platelets (Bld) [#/Vol] 135 10*3/uL 150-450 [facility] Work Phone: Review by pathologiston Pathologist review Robin (Unsp spec) [Interp] Reviewed [facility] Comment on above: Previous reported re sult: May foll Edited by: RGOOD on 04/18/21:1247Leukopenia and neutropenia.Macrocytosis.Clinical correlation necessary.Jose Fernando M.D. 04/18/21 AMENDED REPORT 04/18/211246 PATH REV previously reported as: June dileep Serum or plasma albumin ana maria urement (mass/volume)on 04-17-2021 Albumin [Mass/Vol] 3.8 g/dL 3.2-5.0 [facility] Work Phone: Serum or plasma albumin/glob ulin mass ratioon 04-17-2021 Albumin/Globulin [Mass ratio] 1.2 {ratio} 0.9-2.4 [facility] Work Phone: Serum or plasma calcium ana maria urement (mass/volume)on 04-17-2021 Calcium [Mass/Vol] 9.1 mg/dL 8.5-10.1 [facility] Work Phone: Serum or plasma creatinine m easurement (mass/volume)on 04-17-2021 Creatinine [Mass/Vol] 0.88 mg/dL 0.55-1.02 [facility] Work Phone: Comment on above: The validity of the calculated GFR & GFRAA in patients over 70 years has not been determined. Clinical correlation is essential. Serum or plasma urea nitroge n measurement (mass/volume)on 04-17-2021 Urea nitrogen [Mass/Vol] 14 mg/dL 7-18 [facility] Work Phone: Thin prep Papanicolaou smear with manual screeningon 04-17-2021 Thin prep Papanicolaou smear with manual screening 33 U/L 15-37 [facility] Work Phone: Thin prep Papanicolaou smear with manual screening 7 5-15 [facility] Work Phone: Thin prep Papanicolaou smear with manual screening 218 U/L 84-246 [facility] Work Phone: CT HEAD WO CONTRASTon 2020 CT HEAD WO CONTRAST Patient Name: VIOLET HERNANDEZ STUDY: CT of the head without contrast INDICATION: headache COMPARISON: None ACCESSION NUMBER(S): [id number] ORDERING CLINICIAN: JAMES CAMACHO TECHNIQUE: CT scan of the head was performed from the skull base to the vertex without intravenous contrast. Coronal and sagittal reformats were obtained. FINDINGS: CSF spaces: Unremarkable. Parenchyma: Unremarkable. Paranasal sinuses/mastoids/orbits : Unremarkable. Calvarium: Unremarkable. IMPRESSION: 1. No acute finding. Electronically signed by: NASIR SADLER MD [facility] Covid 19 Resultson 1 SARS-CoV-2 (COVID-19) RNA [...] You may also be contacted by the [facility] to see if any of your close [...] or Naproxen (Aleve) can also be used. Pwoi-kan-eiwhavs cough and cold medicines can be used according to the instructions on the package. Some isqt-ghi-ackgzqw medicines also contain acetaminophen. Make sure you [...] water are not available, use alcohol-based hand beef lugger. Avoid touching your eyes, nose, and mouth [...] 24 nicolas (more content not included)... Normal [facility] INFLUENZA A/B, COVID 2019 PC R,SYMPTOMATICon 01-19-2021 INFLUENZA A, PCR Not detected Normal Not Detected [facility] Comment on above: Result Comment: Resp iratory virus testing is performed routinely by PCR for Influenza A/B and RSV. Not Detected results do not preclude Influenza A/B or RSV infections since the adequacy of sample collection or low viral burden may impact the clinical sensitivity of this test method. Performed By: #### C OINP #### [place] [address] INFLUENZA B, PCR Not detected Normal Not Detected [facility] Comment on above: Result Comment: Resp iratory virus testing is performed routinely by PCR for Influenza A/B and RSV. Not Detected results do not preclude Influenza A/B or RSV infections since the adequacy of sample collection or low viral burden may impact the clinical sensitivity of this test method. Performed By: #### C OINP #### [place] [address] SARS-CoV-2 (COVID-19) RNA MALKA+probe Ql (Unsp spec) Not detected Normal Not Detected [facility] Comment on above: Result Comment: . This test has received FDA Emergency Use Authorization (EUA) and has been verified by [facility]. This test is only authorized for the duration of time that circumstances exist to justify the authorization of the emergency use of in vitro diagnostic tests for the detection of SARS-CoV-2 virus and/or diagnosis of COVID-19 infection under section 564(b)(1) of the Act, 21 U.S.C. 360bbb-3(b)(1), unless the authorization is terminated or revoked sooner. [facility] is certified under CLIA-88 as qualified to perform high complexity testing. Testing is performed in the [facility] laboratory located at [address] [place] [address]. SARS-CoV-2/Flu/RSV Multiplex Test: Fact sheet for providers: https://www.fda.gov/media/830479/download Fact sheet for patients: https://www.fda.gov/media/626964/download Performed By: #### C OINP #### [place] [address] Lab Specimen Source Nasal, Nasopharyngeal Normal [facility] Comment on above: Performed By: #### C OINP #### [place] [address] DATE OF SYMPTOM ONSET [YYYYMMDD]? 20210119 [facility] Comment on above: Performed By: #### C OINP #### [place] [address] Provider Note - ED v3on 01-09 Provider Note - ED v3 Provider Note: [...] states that she was seen at the [facility] an urgent care and they sent [...] made to minimize errors. Minor errors in corporate development associate may be present. Please call if questions.. [...] 01-19-2021 12:56 BP Systolic (mm Hg): 131 12-11-2021 12:56 BP Diastolic (mm Hg): 68 01-19-2021 [...] the adequa (more content not included)... Normal [facility] Risk Screen - Adult Emergenc yon 01-19-2021 [...] instruction; written material Cultural Considerationsnone Developmental Considerationsnone Christianity Considerationsnone Learning Assessment (Other Learner): Learning Assessment (Other Learner): Other learner availableno Pressure Injury/TB/Substance: Pressure Injury: Do you have a coughyes... Has your cough lasted longer than 2 weeksno Smoking Statusnever smoker Alcohol Useoccasionally Drug Usedenies Admission Risk Screen: Significant IndicatorsComplete CAGE: CAGE: Is this an injured patient at a Trauma Center ([facility]): no Electronic Signatures: Miladis Haney (RN) (Signed 19-Jan-2021 13:13) Authored: Preferred Language, Advanced Directives, Family Violence Adult, Learning Assessment (Patient), Learning Assessment (Other Learner), Pressure Injury/TB/Substance, Pressure Injury, CAGE Last Updated: 19-Jan-2021 13:13 by Miladis Haney (RN) [facility] Triage - EDon 01-19-2021 Triage - ED Quick Triage: Are You no Have You Given In The Last 6 Weeksno Are You Currently Breastfeedingno Chart Review: PRIMARY ASSESSMENT ABCD Normal Findings: airway open and patent, circulation normal and alert and oriented ARRIVAL INFORMATION Means of Arrival: Ambulatory Mode of Arrival: private vehicle Arrival From: home Accompanied By: self Language: Spoken Language Preferred: [place] Islander Reading Language Preferred: [place] Present on Arrival: Device Present on Arrival [...] BMI (kg/m2): 28.897 Calculated BSA (m2) 1.60 [place] Coma Scale: Best Eye Response: (E4) spontaneous Best Motor Response: (M6) obeys commands Best Verbal Response: (V5) oriented Elizabeth Score: 15 Allergies: no Patient has homicidal [...] patient cognitively impaired not cognitively impaired Interventions: Dixon Fall Interventions: LOW INTERVENTIONS: *patient oriented to [...] Medical History Reviewedyes Electronic Signatures: Miladis Haney (SHARMILA) (Signed 19-Jan-2021 13:12) Entered: Risk Screens, Pain, Arrival, ABCD, Travel History, Chart Review, Scores, Past Medical History Authored: Quick Triage, Risk Screens, Pain, Arrival, ABCD, Travel History, Chart Review, Scores, Past Medical History Last Updated: 19-Jan-2021 13:12 by Miladis Haney (SHARMILA) Normal [facility] Erythrocyte sedimentation ra eva 03-28-2019 ESR (Bld) [Velocity] 10 mm/h 0-20 [facility] Hemoglobin in reticulocytes (mass per reticulocyte)on 03-28-2019 Hemoglobin (Reticulocytes) [Entitic mass] 37.4 pg 30-35 [facility] Work Phone: IgA [Mass/Vol]on 03-28-2019 Immunoglobulin A 172 mg/dL 87-352 [facility] IgG [Mass/Vol]on 03-28-2019 Immunoglobulin G 757 mg/dL 700-1600 [facility] IgM [Mass/Vol]on 03-28-2019 Immunoglobulin M 41 mg/dL - [facility] Comment on above: Performed at: [facility] [place], [place] [id number] Director: Jorgito Cunningham PhD, Phone: [phone] No Panel Informationon 03-28 Anti-Nuclear Antibody Screen Negative Negative [facility] Comment on above: Performed at: [facility] [place], [place] [id number] Director: Jorgito Cunningham PhD, Phone: [phone] Immature Reticulocyte Fraction 14.70 % 3.00-15.90 [facility] Work Phone: Reticulocyte Count 1.53 % 0.5-1.5 [facility] Work Phone: Serum or plasma IgA measurem ent (mass/volume)on 03-28-2019 IgA [Mass/Vol] 172 mg/dL 87-352 [facility] Serum or plasma IgG measurem ent (mass/volume)on 03-28-2019 IgG [Mass/Vol] 757 mg/dL 700-1600 [facility] Serum or plasma IgM measurem ent (mass/volume)on 03-28-2019 IgM [Mass/Vol] 41 mg/dL -217 [facility] Comment on above: Performed at: [facility] [place], [place] [id number] Director: Jorgito Cunningham PhD, Phone: [phone] CURon 11-25-2018 CUR . MICRO - Microbiology PROCEDURE: Urine Culture [...] Locations *1: This test was performed at: [facility], [address] [place] [address], [id number] , [facility] Normal [facility] ([place]) Comment on above: Performed By: #### C UR #### [address] [address] .Auto Diffon 11-23-2018 Ammonia (P) [Mass/Vol] 0.40 10 3/mcL Normal 0.09-1.40 [facility] ([place]) Comment on above: Performed By: #### C BC, ADIFF, ANEU, GFR, CMP, ERDS #### [address] [address] Basophils (Bld) [#/Vol] 0.00 10 3/mcL Normal 0.00-0.27 [facility] ([place]) Comment on above: Performed By: #### C BC, ADIFF, ANEU, GFR, CMP, ERDS #### [address] [address] Basophils/100 WBC (Bld) 0.3 % Normal 0.0-2.5 [facility] ([place]) Comment on above: Performed By: #### C BC, ADIFF, ANEU, GFR, CMP, ERDS #### [address] [address] Eosinophils (Bld) [#/Vol] 0.00 10 3/mcL Normal 0.00-0.65 [facility] ([place] Comment on above: Performed By: #### C BC, ADIFF, ANEU, GFR, CMP, ERDS #### [address] [address] Eosinophils/100 WBC (Bld) 0.5 % Normal 0.0-6.0 [facility] ([place]) Comment on above: Performed By: #### C BC, ADIFF, ANEU, GFR, CMP, ERDS #### [address] [address] Lymphocytes (Bld) [#/Vol] 0.60 10 3/mcL Low 0.90-4.32 [facility] ([place]) Comment on above: Performed By: #### C BC, ADIFF, ANEU, GFR, CMP, ERDS #### [address] [address] Lymphocytes/100 WBC (Bld) 17.6 % Low 20.0-40.0 [facility] ([place] Comment on above: Performed By: #### C BC, ADIFF, ANEU, GFR, CMP, ERDS #### [address] [address] Monocytes/100 WBC (Bld) 11.0 % Normal 2.0-13.0 [facility] ([place] Comment on above: Performed By: #### C BC, ADIFF, ANEU, GFR, CMP, ERDS #### [address] [address] Neutrophils/100 WBC (Bld) 70.6 % Normal 50.0-75.0 [facility] ([place] Comment on above: Performed By: #### C BC, ADIFF, ANEU, GFR, CMP, ERDS #### [address] [address] .GFRon 11-23-2018 GFR Non- >60 Normal [facility] ([place]) Comment on above: Result Comment: GFR Population [...] BC, ADIFF, ANEU, GFR, CMP, ERDS #### [address] [address] GFR >60 Normal [facility] ([place]) Comment on above: Result Comment: GFR Population [...] BC, ADIFF, ANEU, GFR, CMP, ERDS #### [address] [address] .NEUABSon 11-23-2018 Neutrophils (Bld) [#/Vol] 2.40 10 3/mcL Normal 2.25-8.10 [facility] ([place] Comment on above: Performed By: #### C BC, ADIFF, ANEU, GFR, CMP, ERDS #### [address] [address] CBCon 11-23-2018 Erythrocyte distribution width (RBC) [Ratio] 13.9 % Normal 11.5-15.5 [facility] ([place] Comment on above: Performed By: #### C BC, ADIFF, ANEU, GFR, CMP, ERDS #### [place] [address] Hematocrit (Bld) [Volume fraction] 39.4 % Normal 34.0-46.0 [facility] ([place] Comment on above: Performed By: #### C BC, ADIFF, ANEU, GFR, CMP, ERDS #### [address] [address] Hemoglobin (Bld) [Mass/Vol] 13.5 G/dL Normal 12.0-16.0 [facility] ([place] Comment on above: Performed By: #### C BC, ADIFF, ANEU, GFR, CMP, ERDS #### [address] [address] MCH (RBC) [Entitic mass] 37.4 pg High 27.0-33.0 [facility] ([place] Comment on above: Performed By: #### C BC, ADIFF, ANEU, GFR, CMP, ERDS #### [address] [address] MCHC (RBC) [Mass/Vol] 34.3 G/dL Normal 32.0-36.0 [facility] ([place]) Comment on above: Performed By: #### C BC, ADIFF, ANEU, GFR, CMP, ERDS #### [place] [id number] MCV (RBC) [Entitic vol] 109.0 fL High 80.0-99.0 [facility] ([place] Comment on above: Performed By: #### C BC, ADIFF, ANEU, GFR, CMP, ERDS #### [place] [id number] Platelet mean volume (Bld) [Entitic vol] 8.4 fL Normal 6.6-10.5 [facility] ([place] Comment on above: Performed By: #### C BC, ADIFF, ANEU, GFR, CMP, ERDS #### [place] [id number] Platelets (Bld) [#/Vol] 136 10 3/mcL Low 150-450 [facility] ([place] Comment on above: Performed By: #### C BC, ADIFF, ANEU, GFR, CMP, ERDS #### [place] [id number] RBC (Bld) [#/Vol] 3.61 10 6/mcL Low 4.10-5.30 [facility] ([place]) Comment on above: Performed By: #### C BC, ADIFF, ANEU, GFR, CMP, ERDS #### [address] [address] WBC (Bld) [#/Vol] 3.40 10 3/mcL Low 4.50-10.80 [facility] ([place] Comment on above: Performed By: #### C BC, ADIFF, ANEU, GFR, CMP, ERDS #### [address] [address] CMPon 11-23-2018 Albumin/Globulin [Mass ratio] 1.4 {ratio} Normal 0.9-1.6 [facility] ([place] Comment on above: Performed By: #### C BC, ADIFF, ANEU, GFR, CMP, ERDS #### [address] [address] ALP [Catalytic activity/Vol] 45 U/L Normal 38-126 [facility] ([place] Comment on above: Performed By: #### C BC, ADIFF, ANEU, GFR, CMP, ERDS #### [address] [address] Bili Total 0.4 mg/dL Normal 0.2-1.2 [facility] ([place] Comment on above: Performed By: #### C BC, ADIFF, ANEU, GFR, CMP, ERDS #### [address] [address] Globulin (S) [Mass/Vol] 3.0 G/dL Normal 1.5-3.8 [facility] ([place] Comment on above: Performed By: #### C BC, ADIFF, ANEU, GFR, CMP, ERDS #### [address] [address] Protein [Mass/Vol] 7.1 G/dL Normal 6.0-8.5 [facility] ([place]) Comment on above: Performed By: #### C BC, ADIFF, ANEU, GFR, CMP, ERDS #### [address] [address] Albumin [Mass/Vol] 4.1 G/dL Normal 3.2-4.8 [facility] ([place] Comment on above: Performed By: #### C BC, ADIFF, ANEU, GFR, CMP, ERDS #### [address] [address] ALT [Catalytic activity/Vol] 36 U/L Normal 10-49 [facility] ([place] Comment on above: Performed By: #### C BC, ADIFF, ANEU, GFR, CMP, ERDS #### [address] [address] AST [Catalytic activity/Vol] 20 U/L Normal 8-34 [facility] ([place] Comment on above: Performed By: #### C BC, ADIFF, ANEU, GFR, CMP, ERDS #### [address] [address] Calcium [Mass/Vol] 9.2 mg/dL Normal 8.4-10.1 [facility] ([place] Comment on above: Performed By: #### C BC, ADIFF, ANEU, GFR, CMP, ERDS #### [place] [address] Chloride [Moles/Vol] 106 mmol/L Normal 98-110 [facility] ([place] Comment on above: Performed By: #### C BC, ADIFF, ANEU, GFR, CMP, ERDS #### [place] [id number] CO2 [Moles/Vol] 21 mmol/L Low 22-32 [facility] ([place] Comment on above: Performed By: #### C BC, ADIFF, ANEU, GFR, CMP, ERDS #### [address] [address] Creatinine [Mass/Vol] 0.66 mg/dL Normal 0.50-1.20 [facility] ([place]) Comment on above: Performed By: #### C BC, ADIFF, ANEU, GFR, CMP, ERDS #### [address] [address] Electrolyte Balance 11.0 mEq/L Normal 4.0-15.0 [facility] ([place]) Comment on above: Performed By: #### C BC, ADIFF, ANEU, GFR, CMP, ERDS #### [place] [id number] Glucose [Mass/Vol] 88 mg/dL Normal 70-110 [facility] ([place] Comment on above: Performed By: #### C BC, ADIFF, ANEU, GFR, CMP, ERDS #### [place] [id number] Potassium [Moles/Vol] 3.7 mmol/L Normal 3.5-5.0 [facility] ([place] Comment on above: Performed By: #### C BC, ADIFF, ANEU, GFR, CMP, ERDS #### [place] [id number] Sodium [Moles/Vol] 138 mmol/L Normal 136-145 [facility] ([place] Comment on above: Performed By: #### C BC, ADIFF, ANEU, GFR, CMP, ERDS #### [place] [address] Urea nitrogen [Mass/Vol] 11.0 mg/dL Normal 8.0-22.0 [facility] ([place] Comment on above: Performed By: #### C BC, ADIFF, ANEU, GFR, CMP, ERDS #### [place] [address] Urea nitrogen/Creatinine [Mass ratio] 16.7 ratio Normal 10.0-22.0 [facility] ([place] Comment on above: Performed By: #### C BC, ADIFF, ANEU, GFR, CMP, ERDS #### [address] [address] ERDSon 11-23-2018 Acetaminophen [Mass/Vol] <2.0 Low 10.0-30.0 [facility] ([place] Comment on above: Performed By: #### C BC, ADIFF, ANEU, GFR, CMP, ERDS #### [address] [address] ER Drug Screen (s) Negative Normal [facility] ([place] Comment on above: Performed By: #### C BC, ADIFF, ANEU, GFR, CMP, ERDS #### [place] [address] ER Drug Screen Interp Serum shows no abel dence of drugs routinely screened [facility] ([place] Comment on above: Performed By: #### C BC, ADIFF, ANEU, GFR, CMP, ERDS #### [place] [address] ER Serum Drugs Screened: See Below Normal [facility] ([place]) Comment on above: Result Comment: This drug screen is a presumptive screening only. No confirmation will be performed unless requested. Drugs included in the ER serum drug screen are: Threshold Ethanol 10.0 mg/dL Salicylate 2.0 mg/dL Acetaminophen 2.0 mcg/mL Tricyclic Antidepressants 300 ng/mL Testing has been performed FOR MEDICAL PURPOSES ONLY. Performed By: #### C BC, ADIFF, ANEU, GFR, CMP, ERDS #### [place] [address] Ethanol Level <10.0 Normal [facility] ([place] Comment on above: Performed By: #### C BC, ADIFF, ANEU, GFR, CMP, ERDS #### [place] [address] Salicylate Lvl (ds) <2.0 Low 10.0-25.0 [facility] ([place] Comment on above: Performed By: #### C BC, ADIFF, ANEU, GFR, CMP, ERDS #### [place] [address] TCA (s) Negative Normal [facility] ([place] Comment on above: Performed By: #### C BC, ADIFF, ANEU, GFR, CMP, ERDS #### [place] [address] U ERDSon 11-23-2018 ER U Drug Screen Negative Normal [facility] ([place] Comment on above: Performed By: #### U ERDS #### [place] [address] ER U Drug Screen Interp Urine shows no evidence of drugs routinely screened. [facility] ([place]) Comment on above: Performed By: #### U ERDS #### [address] [address] U ER Drugs Screened: See Below Normal [facility] ([place]) Comment on above: Result Comment: This drug [...] ONLY. Performed By: #### U ERDS #### [address] [address] Vital Signs Date Time Vital Sign Value Performing Clinician Facility 09-09-2024 12:33-0400 Body height 147.[address] Emily Sanders MD Work Phone: [facility] 09-09-2024 12:33-0400 Body mass index (BMI) [Ratio] 27.8 kg/m2 Dr. Emily Sanders MD Work Phone: [facility] 09-09-2024 12:33-0400 Body temperature 97.9 [degF] Dr. Emily Sanders MD Work Phone: [facility] 09-09-2024 12:33-0400 Body weight 60.[address] Emily Sanders MD Work Phone: [facility] 09-09-2024 12:33-0400 Diastolic blood pressure 66 mm[Hg] Dr. Emily Sanders MD Work Phone: [facility] 09-09-2024 12:33-0400 Heart rate 53 /min Dr. Emily Sanders MD Work Phone: [facility] 09-09-2024 12:33-0400 Respiratory rate 16 /min Dr. Emily Sanders MD Work Phone: [facility] 09-09-2024 12:33-0400 SaO2% (BldA) [Mass fraction] 97 % Dr. Emily Sanders MD Work Phone: [facility] 09-09-2024 12:33-0400 Systolic blood pressure 108 mm[Hg] Dr. Emily Sanders MD Work Phone: [facility] 09-03-2024 16:46-0400 Diastolic blood pressure 61 mm[Hg] Dr. Emily aSnders MD Work Phone: [facility] 09-03-2024 16:46-0400 Heart rate 50 /min Dr. Emily Sanders MD Work Phone: [facility] 09-03-2024 16:46-0400 Respiratory rate 16 /min Dr. Emily Sanders MD Work Phone: [facility] 09-03-2024 16:46-0400 SaO2% (BldA) [Mass fraction] 99 % Dr. Emily Sanders MD Work Phone: [facility] 09-03-2024 16:46-0400 Systolic blood pressure 127 mm[Hg] Dr. Emily Sanders MD Work Phone: [facility] 09-03-2024 16:28-0400 Body temperature 98.1 [degF] Dr. Emily Sanders MD Work Phone: [facility] 09-03-2024 14:55-0400 Body height 147.[address] Emily Sanders MD Work Phone: [facility] 07-28-2024 11:46-0400 Body height 147.[address] Emily Sanders MD Work Phone: [facility] 07-28-2024 11:46-0400 Body weight 60.[address] Emily Sanders MD Work Phone: [facility] 07-19-2024 12:32-0400 Body height 147.[address] Emily Sanders MD Work Phone: [facility] 07-19-2024 12:32-0400 Body mass index (BMI) [Ratio] 28 kg/m2 Dr. Emily Sandesr MD Work Phone: [facility] 07-19-2024 12:32-0400 Body weight 60.[address] Emily Sanders MD Work Phone: [facility] 07-19-2024 12:32-0400 Diastolic blood pressure 66 mm[Hg] Dr. Emily Sanders MD Work Phone: [facility] 07-19-2024 12:32-0400 Heart rate 50 /min Dr. Emily Sanders MD Work Phone: [facility] 07-19-2024 12:32-0400 SaO2% (BldA) [Mass fraction] 95 % Dr. Emily Sanders MD Work Phone: [facility] 07-19-2024 12:32-0400 Systolic blood pressure 109 mm[Hg] Dr. Emily Sanders MD Work Phone: [facility] 06-29-2024 08:21-0400 Body height 147.[address] Emily Sanders MD Work Phone: [facility] 06-29-2024 08:21-0400 Body mass index (BMI) [Ratio] 28.3 kg/m2 Dr. Emily Sanders MD Work Phone: [facility] 06-29-2024 08:21-0400 Body weight 61.[address] Emily Sanders MD Work Phone: [facility] 06-29-2024 08:21-0400 Diastolic blood pressure 72 mm[Hg] Dr. Emily Sanders MD Work Phone: [facility] 06-29-2024 08:21-0400 Heart rate 60 /min Dr. Emily Sanders MD Work Phone: [facility] 06-29-2024 08:21-0400 Respiratory rate 18 /min Dr. Emily Sanders MD Work Phone: [facility] 06-29-2024 08:21-0400 SaO2% (BldA) [Mass fraction] 96 % Dr. Emily Sanders MD Work Phone: [facility] 06-29-2024 08:21-0400 Systolic blood pressure 107 mm[Hg] Dr. Emily Sanders MD Work Phone: [facility] 06-20-2024 07:58-0400 Body temperature 98.8 [degF] Dr. Emily Sanders MD Work Phone: [facility] 06-20-2024 07:58-0400 Diastolic blood pressure 60 mm[Hg] Dr. Emily Sanders MD Work Phone: [facility] 06-20-2024 07:58-0400 Heart rate 90 /min Dr. Emily Sanders MD Work Phone: [facility] 06-20-2024 07:58-0400 SaO2% (BldA) [Mass fraction] 97 % Dr. Emily Sanders MD Work Phone: [facility] 06-20-2024 07:58-0400 Systolic blood pressure 100 mm[Hg] Dr. Emily Sanders MD Work Phone: [facility] 05-20-2024 16:12-0400 Body height 147.3 cm Sherly Ng APRN.ADJUNCT PROFESSOR OF ENGLISH Work Phone: [facility] 05-20-2024 16:12-0400 Body mass index (BMI) [Ratio] 28.63 kg/m2 Sherly Ng APRN.ADJUNCT PROFESSOR OF ENGLISH Work Phone: [facility] 05-20-2024 16:12-0400 Body weight 62.14 kg Sherly Ng CHRISTOPHER.ADJUNCT PROFESSOR OF ENGLISH Work Phone: [facility] 05-20-2024 16:12-0400 Diastolic blood pressure 60 mm[Hg] Sherly Ng CHRISTOPHER.ADJUNCT PROFESSOR OF ENGLISH Work Phone: [facility] 05-20-2024 16:12-0400 Systolic blood pressure 100 mm[Hg] Sherly Ngmari LEMOSN.ADJUNCT PROFESSOR OF ENGLISH Work Phone: [facility] 04-27-2024 08:00-0400 Body height 147.[address] Emily Sanders MD Work Phone: [facility] 04-27-2024 08:00-0400 Body mass index (BMI) [Ratio] 28.8 kg/m2 Dr. Emily Sanders MD Work Phone: [facility] 04-27-2024 08:00-0400 Body temperature 97.2 [degF] Dr. Emily Sanders MD Work Phone: [facility] 04-27-2024 08:00-0400 Body weight 62.[address] Emily Sanders MD Work Phone: [facility] 04-27-2024 08:00-0400 Diastolic blood pressure 78 mm[Hg] Dr. Emily Sanders MD Work Phone: [facility] 04-27-2024 08:00-0400 Heart rate 80 /min Dr. Emily Sanders MD Work Phone: [facility] 04-27-2024 08:00-0400 Respiratory rate 18 /min Dr. Emily Sanders MD Work Phone: [facility] 04-27-2024 08:00-0400 SaO2% (BldA) [Mass fraction] 96 % Dr. Emily Sanders MD Work Phone: [facility] 04-27-2024 08:00-0400 Systolic blood pressure 118 mm[Hg] Dr. Emily Sanders MD Work Phone: [facility] 04-25-2024 13:07-0400 Body mass index (BMI) [Ratio] 28.9 kg/m2 Dr. Emily Sanders MD Work Phone: [facility] 04-25-2024 13:07-0400 Body temperature 98.2 [degF] Dr. Emily Sanders MD Work Phone: [facility] 04-25-2024 13:07-0400 Body weight 62.[address] Emily Sanders MD Work Phone: [facility] 04-25-2024 13:07-0400 Diastolic blood pressure 67 mm[Hg] Dr. Emily Sanders MD Work Phone: [facility] 04-25-2024 13:07-0400 Heart rate 56 /min Dr. Emily Sanders MD Work Phone: [facility] 04-25-2024 13:07-0400 Respiratory rate 18 /min Dr. Emily Sanders MD Work Phone: [facility] 04-25-2024 13:07-0400 SaO2% (BldA) [Mass fraction] 98 % Dr. Emily Sanders MD Work Phone: [facility] 04-25-2024 13:07-0400 Systolic blood pressure 114 mm[Hg] Dr. Emily Sanders MD Work Phone: [facility] 04-04-2024 09:24-0500 Diastolic blood pressure 60 mm[Hg] Dr. Emily Sanders MD Work Phone: [facility] 04-04-2024 09:24-0500 Systolic blood pressure 112 mm[Hg] Dr. Emily Sanders MD Work Phone: [facility] 04-04-2024 09:14-0500 Body height 147.[address] Emily Sanders MD Work Phone: [facility] 04-04-2024 09:14-0500 Body mass index (BMI) [Ratio] 28.6 kg/m2 Dr. Emily Sanders MD Work Phone: [facility] 04-04-2024 09:14-0500 Body temperature 98.4 [degF] Dr. Emily Sanders MD Work Phone: [facility] 04-04-2024 09:14-0500 Body weight 62.[address] Emily Sanders MD Work Phone: [facility] 04-04-2024 09:14-0500 Heart rate 78 /min Dr. Emily Sanders MD Work Phone: [facility] 04-04-2024 09:14-0500 Respiratory rate 18 /min Dr. Emily Sanders MD Work Phone: [facility] 04-04-2024 09:14-0500 SaO2% (BldA) [Mass fraction] 99 % Dr. Emily Sanders MD Work Phone: [facility] 04-03-2024 11:56-0500 Body temperature 97.8 [degF] Dr. Emily Sanders MD Work Phone: [facility] 04-03-2024 11:56-0500 Diastolic blood pressure 68 mm[Hg] Dr. Emily Sanders MD Work Phone: [facility] 04-03-2024 11:56-0500 Heart rate 52 /min Dr. Emily Sanders MD Work Phone: [facility] 04-03-2024 11:56-0500 Respiratory rate 16 /min Dr. Emily Sanders MD Work Phone: [facility] 04-03-2024 11:56-0500 SaO2% (BldA) [Mass fraction] 99 % Dr. Emily Sanders MD Work Phone: [facility] 04-03-2024 11:56-0500 Systolic blood pressure 124 mm[Hg] Dr. Emily Sanders MD Work Phone: [facility] 04-03-2024 09:49-0500 Body mass index (BMI) [Ratio] 28.8 kg/m2 Dr. Emily Sanders MD Work Phone: [facility] 04-03-2024 09:49-0500 Body weight 62.[address] Emily Sanders MD Work Phone: [facility] 03-31-2024 08:01-0500 Body temperature 98.1 [degF] Dr. Emily Sanders MD Work Phone: [facility] 03-31-2024 08:01-0500 Diastolic blood pressure 82 mm[Hg] Dr. Emily Sanders MD Work Phone: [facility] 03-31-2024 08:01-0500 Heart rate 73 /min Dr. Emily Sanders MD Work Phone: [facility] 03-31-2024 08:01-0500 Respiratory rate 16 /min Dr. Emily Sanders MD Work Phone: [facility] 03-31-2024 08:01-0500 SaO2% (BldA) [Mass fraction] 97 % Dr. Emily Sanders MD Work Phone: [facility] 03-31-2024 08:01-0500 Systolic blood pressure 137 mm[Hg] Dr. Emily Sanders MD Work Phone: [facility] 03-31-2024 06:26-0500 Body mass index (BMI) [Ratio] 29 kg/m2 Dr. Emily Sanders MD Work Phone: [facility] 03-31-2024 06:26-0500 Body weight 62.[address] Emily Sanders MD Work Phone: [facility] 03-29-2024 11:01-0500 Body height 147.3 cm Valentine Roth HYDROBLASTER-ADJUNCT PROFESSOR OF ENGLISH Work Phone: [facility] 03-29-2024 11:01-0500 Body mass index (BMI) [Ratio] 28.84 kg/m2 Valentine Roth HYDROBLASTER-ADJUNCT PROFESSOR OF ENGLISH Work Phone: [facility] 03-29-2024 11:01-0500 Body temperature 98.1 [degF] Valentine Roth HYDROBLASTER-ADJUNCT PROFESSOR OF ENGLISH Work Phone: [facility] 03-29-2024 11:01-0500 Body weight 62.6 kg Valentine Roth HYDROBLASTER-ADJUNCT PROFESSOR OF ENGL[employer] Work Phone: [facility] 03-29-2024 11:01-0500 Diastolic blood pressure 75 mm[Hg] Valentine Roth HYDROBLASTER-ADJUNCT PROFESSOR OF ENGL[employer] Work Phone: [facility] 03-29-2024 11:01-0500 Heart rate 74 /min Valentine Roth HYDROBLASTER-ADJUNCT PROFESSOR OF ENGL[employer] Work Phone: [facility] 03-29-2024 11:01-0500 Respiratory rate 18 /min Valentine Roth HYDROBLASTER-ADJUNCT PROFESSOR OF ENGLISH Work Phone: [facility] 03-29-2024 11:01-0500 SaO2% (BldA) [Mass fraction] 97 % Valentine Roth HYDROBLASTER-ADJUNCT PROFESSOR OF ENGLISH Work Phone: [facility] 03-29-2024 11:01-0500 Systolic blood pressure 107 mm[Hg] Valentine Roth HYDROBLASTER-ADJUNCT PROFESSOR OF ENGLISH Work Phone: [facility] 02-11-2024 13:37-0500 Body mass index (BMI) [Ratio] 29.89 kg/m2 Leo Monroe MD Work Phone: [facility] 02-11-2024 13:37-0500 Body weight 67.13 kg Leo Monroe MD Work Phone: [facility] 02-11-2024 13:37-0500 Diastolic blood pressure 66 mm[Hg] Leo Monroe MD Work Phone: [facility] 02-11-2024 13:37-0500 Systolic blood pressure 108 mm[Hg] Leo Monroe MD Work Phone: [facility] 01-18-2024 13:52-0500 Diastolic blood pressure 85 mm[Hg] Dr. Emily Sanders MD Work Phone: [facility] 01-18-2024 13:52-0500 Heart rate 65 /min Dr. Emily Sanders MD Work Phone: [facility] 01-18-2024 13:52-0500 Respiratory rate 16 /min Dr. Emily Sanders MD Work Phone: [facility] 01-18-2024 13:52-0500 SaO2% (BldA) [Mass fraction] 97 % Dr. Emily Sanders MD Work Phone: [facility] 01-18-2024 13:52-0500 Systolic blood pressure 130 mm[Hg] Dr. Emily Sanders MD Work Phone: [facility] 01-18-2024 12:47-0500 Body mass index (BMI) [Ratio] 31.1 kg/m2 Dr. Emily Sanders MD Work Phone: [facility] 01-18-2024 12:47-0500 Body temperature 97.2 [degF] Dr. Emily Sanders MD Work Phone: [facility] 01-18-2024 12:47-0500 Body weight 67.[address] Emily Sanders MD Work Phone: [facility] 01-15-2024 13:57-0500 Body height 149.9 cm Lee Billow DO Work Phone: [facility] 01-15-2024 13:57-0500 Body mass index (BMI) [Ratio] 30.3 kg/m2 Lee Billow DO Work Phone: [facility] 01-15-2024 13:57-0500 Body weight 68.04 kg Lee Billow DO Work Phone: [facility] 01-15-2024 13:57-0500 Diastolic blood pressure 78 mm[Hg] Lee Billow DO Work Phone: [facility] 01-15-2024 13:57-0500 Systolic blood pressure 119 mm[Hg] Lee Billow DO Work Phone: [facility] 12-31-2023 16:00-0500 Body mass index (BMI) [Ratio] 32.3 kg/m2 Dr. Emily Sanders MD Work Phone: [facility] 12-31-2023 16:00-0500 Body temperature 97.8 [degF] Dr. Emily Sanders MD Work Phone: [facility] 12-31-2023 16:00-0500 Body weight 70.[address] Emily Sanders MD Work Phone: [facility] 12-31-2023 16:00-0500 Diastolic blood pressure 60 mm[Hg] Dr. Emily Sanders MD Work Phone: [facility] 12-31-2023 16:00-0500 Heart rate 63 /min Dr. Emily Sanders MD Work Phone: [facility] 12-31-2023 16:00-0500 Respiratory rate 16 /min Dr. Emily Sanders MD Work Phone: [facility] 12-31-2023 16:00-0500 SaO2% (BldA) [Mass fraction] 96 % Dr. Emily Sanders MD Work Phone: [facility] 12-31-2023 16:00-0500 Systolic blood pressure 120 mm[Hg] Dr. Emily Sanders MD Work Phone: [facility] 12-17-2023 14:56-0500 Body height 147.3 cm Yennifer Brazofsky HYDROBLASTER.ADJUNCT PROFESSOR OF ENGLISH Work Phone: [facility] 12-17-2023 14:56-0500 Body mass index (BMI) [Ratio] 32.9 kg/m2 Yennifer Brazofsky HYDROBLASTER.ADJUNCT PROFESSOR OF ENGLISH Work Phone: [facility] 12-17-2023 14:56-0500 Body weight 71.4 kg Yennifer Brazofsky HYDROBLASTER.ADJUNCT PROFESSOR OF ENGLISH Work Phone: [facility] 12-17-2023 14:56-0500 Diastolic blood pressure 80 mm[Hg] Yennifer Brazofsky HYDROBLASTER.ADJUNCT PROFESSOR OF ENGLISH Work Phone: [facility] 12-17-2023 14:56-0500 Systolic blood pressure 124 mm[Hg] Yennifer Brazofsky HYDROBLASTER.ADJUNCT PROFESSOR OF ENGLISH Work Phone: [facility] 11-06-2023 13:22-0400 Body height 147.3 cm Pacc 1 Work Phone: [facility] 11-06-2023 13:22-0400 Body mass index (BMI) [Ratio] 33.02 kg/m2 Pacc 1 Work Phone: [facility] 11-06-2023 13:22-0400 Body temperature 97.9 [degF] Pacc 1 Work Phone: [facility] 11-06-2023 13:22-0400 Body weight 71.67 kg Pacc 1 Work Phone: [facility] 11-06-2023 13:22-0400 Diastolic blood pressure 76 mm[Hg] Pacc 1 Work Phone: [facility] 11-06-2023 13:22-0400 Heart rate 73 /min Pacc 1 Work Phone: [facility] 11-06-2023 13:22-0400 Respiratory rate 16 /min Pacc 1 Work Phone: [facility] 11-06-2023 13:22-0400 SaO2% (BldA) [Mass fraction] 98 % Pacc 1 Work Phone: [facility] 11-06-2023 13:22-0400 Systolic blood pressure 122 mm[Hg] Pacc 1 Work Phone: [facility] 10-26-2023 09:07-0400 Body height 147.3 cm Lee Billow DO Work Phone: [facility] 10-26-2023 09:07-0400 Body mass index (BMI) [Ratio] 32.6 kg/m2 Lee Billow DO Work Phone: [facility] 10-26-2023 09:07-0400 Body weight 70.76 kg Lee Billow DO Work Phone: [facility] 10-26-2023 09:07-0400 Diastolic blood pressure 79 mm[Hg] Lee Billow DO Work Phone: [facility] 10-26-2023 09:07-0400 Systolic blood pressure 116 mm[Hg] Lee Billow DO Work Phone: [facility] 08-12-2023 11:36-0400 Body mass index (BMI) [Ratio] 31.91 kg/m2 Leo Monroe MD Work Phone: [facility] 08-12-2023 11:36-0400 Body weight 71.67 kg Leo Monroe MD Work Phone: [facility] 08-12-2023 11:36-0400 Diastolic blood pressure 72 mm[Hg] Leo Monroe MD Work Phone: [facility] 08-12-2023 11:36-0400 Systolic blood pressure 118 mm[Hg] Leo Monroe MD Work Phone: [facility] 05-29-2023 11:06-0400 Body height 147.[address] Emily Sanders Work Phone: [facility] 05-29-2023 11:06-0400 Body mass index (BMI) [Ratio] 32.8 kg/m2 Dr. Emily Sanders Work Phone: [facility] 05-29-2023 11:06-0400 Body temperature 98.2 [degF] Dr. Emily Sanders Work Phone: [facility] 05-29-2023 11:06-0400 Body weight 71.[address] Emily Sanders Work Phone: [facility] 05-29-2023 11:06-0400 Diastolic blood pressure 62 mm[Hg] Dr. Emily Sanders Work Phone: [facility] 05-29-2023 11:06-0400 Heart rate 80 /min Dr. Emily Sanders Work Phone: [facility] 05-29-2023 11:06-0400 Respiratory rate 17 /min Dr. Emily Sanders Work Phone: [facility] 05-29-2023 11:06-0400 SaO2% (BldA) [Mass fraction] 97 % Dr. Emily Sanders Work Phone: [facility] 05-29-2023 11:06-0400 Systolic blood pressure 116 mm[Hg] Dr. Emily Sanders Work Phone: [facility] 05-19-2023 10:57-0400 Body height 149.9 cm Sherly Ng APRN.ADJUNCT PROFESSOR OF ENGLISH Work Phone: [facility] 05-19-2023 10:57-0400 Body weight 70.76 kg Sherly Ng APRN.ADJUNCT PROFESSOR OF ENGLISH Work Phone: [facility] 05-19-2023 10:57-0400 Diastolic blood pressure 81 mm[Hg] Sherly Ng HYDROBLASTER.ADJUNCT PROFESSOR OF ENGLISH Work Phone: [facility] 05-19-2023 10:57-0400 Heart rate 92 /min Sherly Ng APRN.ADJUNCT PROFESSOR OF ENGLISH Work Phone: [facility] 05-19-2023 10:57-0400 Systolic blood pressure 120 mm[Hg] Sherly Ng APRN.ADJUNCT PROFESSOR OF ENGLISH Work Phone: [facility] 04-28-2023 14:35-0400 Body mass index (BMI) [Ratio] 32.3 kg/m2 Dr. Emily Sanders Work Phone: [facility] 04-28-2023 14:35-0400 Body temperature 98.8 [degF] Dr. Emily Sanders Work Phone: [facility] 04-28-2023 14:35-0400 Body weight 70.[address] Emily Sanders Work Phone: [facility] 04-28-2023 14:35-0400 Diastolic blood pressure 85 mm[Hg] Dr. Emily Sanders Work Phone: [facility] 04-28-2023 14:35-0400 Heart rate 87 /min Dr. Emily Sanders Work Phone: [facility] 04-28-2023 14:35-0400 Respiratory rate 14 /min Dr. Emily Sanders Work Phone: [facility] 04-28-2023 14:35-0400 SaO2% (BldA) [Mass fraction] 99 % Dr. Emily Sanders Work Phone: [facility] 04-28-2023 14:35-0400 Systolic blood pressure 122 mm[Hg] Dr. Emily Sanders Work Phone: [facility] 02-06-2023 09:57-0500 Body height 147.[address] Emily Sanders Work Phone: [facility] 02-06-2023 09:57-0500 Body mass index (BMI) [Ratio] 31.4 kg/m2 Dr. Emily Sanders Work Phone: [facility] 02-06-2023 09:57-0500 Body temperature 97.7 [degF] Dr. Emily Sanders Work Phone: [facility] 02-06-2023 09:57-0500 Body weight 68.[address] Emily Sanders Work Phone: [facility] 02-06-2023 09:57-0500 Diastolic blood pressure 68 mm[Hg] Dr. Emily Sanders Work Phone: [facility] 02-06-2023 09:57-0500 Heart rate 98 /min Dr. Emily Sanders Work Phone: [facility] 02-06-2023 09:57-0500 Respiratory rate 16 /min Dr. Emily Sanders Work Phone: [facility] 02-06-2023 09:57-0500 SaO2% (BldA) [Mass fraction] 99 % Dr. Emily Sanders Work Phone: [facility] 02-06-2023 09:57-0500 Systolic blood pressure 118 mm[Hg] Dr. Emily Sanders Work Phone: [facility] 02-02-2023 01:35-0500 Diastolic blood pressure 80 mm[Hg] Dr. Emily Sanders Work Phone: [facility] 02-02-2023 01:35-0500 Heart rate 79 /min Dr. Emily Sanders Work Phone: [facility] 02-02-2023 01:35-0500 Respiratory rate 16 /min Dr. Emily Sanders Work Phone: [facility] 02-02-2023 01:35-0500 SaO2% (BldA) [Mass fraction] 97 % Dr. Emily Sanders Work Phone: [facility] 02-02-2023 01:35-0500 Systolic blood pressure 122 mm[Hg] Dr. Emily Sanders Work Phone: [facility] 02-01-2023 22:19-0500 Body height 147.[address] Emily Sanders Work Phone: [facility] 02-01-2023 22:19-0500 Body mass index (BMI) [Ratio] 31.4 kg/m2 Dr. Emily Sanders Work Phone: [facility] 02-01-2023 22:19-0500 Body temperature 98 [degF] Dr. Emily Sanders Work Phone: [facility] 02-01-2023 22:19-0500 Body weight 68.[address] Emily Sanders Work Phone: [facility] 12-17-2022 16:11-0500 Body height 147.[address] Emily Sanders Work Phone: [facility] 12-17-2022 16:11-0500 Body mass index (BMI) [Ratio] 29.2 kg/m2 Dr. Emily Sanders Work Phone: [facility] 12-17-2022 16:11-0500 Body temperature 100 [degF] Dr. Emily Sanders Work Phone: [facility] 12-17-2022 16:11-0500 Body weight 63.[address] Emily Sanders Work Phone: [facility] 12-17-2022 16:11-0500 Diastolic blood pressure 85 mm[Hg] Dr. Emily Sanders Work Phone: [facility] 12-17-2022 16:11-0500 Heart rate 92 /min Dr. Emily Sanders Work Phone: [facility] 12-17-2022 16:11-0500 Respiratory rate 16 /min Dr. Emily Sanders Work Phone: [facility] 12-17-2022 16:11-0500 SaO2% (BldA) [Mass fraction] 96 % Dr. Emily Sanders Work Phone: [facility] 12-17-2022 16:11-0500 Systolic blood pressure 130 mm[Hg] Dr. Emily Sanders Work Phone: [facility] 11-03-2022 15:49-0400 Body mass index (BMI) [Ratio] 29.5 kg/m2 Dr. Emily Sanders Work Phone: [facility] 11-03-2022 15:49-0400 Body weight 63.[address] Emily Sanders Work Phone: [facility] 11-03-2022 15:49-0400 Diastolic blood pressure 80 mm[Hg] Dr. Emily Sanders Work Phone: [facility] 11-03-2022 15:49-0400 Heart rate 65 /min Dr. Emily Sanders Work Phone: [facility] 11-03-2022 15:49-0400 Respiratory rate 18 /min Dr. Emily Sanders Work Phone: [facility] 11-03-2022 15:49-0400 SaO2% (BldA) [Mass fraction] 97 % Dr. Emily Sanders Work Phone: [facility] 11-03-2022 15:49-0400 Systolic blood pressure 119 mm[Hg] Dr. Emily Sanders Work Phone: [facility] 05-09-2022 12:57-0400 Body height 147.3 cm Sherly Ng APRN.CNP Work Phone: [facility] 05-09-2022 12:57-0400 Body weight 67.59 kg Sherly Ng APRN.ADJUNCT PROFESSOR OF ENGLISH Work Phone: [facility] 05-09-2022 12:57-0400 Diastolic blood pressure 68 mm[Hg] Sherly Ng HYDROBLASTER.ADJUNCT PROFESSOR OF ENGLISH Work Phone: [facility] 05-09-2022 12:57-0400 Systolic blood pressure 122 mm[Hg] Sherly Ng HYDROBLASTER.ADJUNCT PROFESSOR OF ENGLISH Work Phone: [facility] 01-17-2022 11:20-0500 Body weight 66.22 kg Sherly Ng HYDROBLASTER.ADJUNCT PROFESSOR OF ENGLISH Work Phone: [facility] 01-17-2022 11:20-0500 Diastolic blood pressure 70 mm[Hg] Sherly Ng HYDROBLASTER.ADJUNCT PROFESSOR OF ENGLISH Work Phone: [facility] 01-17-2022 11:20-0500 Systolic blood pressure 110 mm[Hg] Sherly Ng HYDROBLASTER.ADJUNCT PROFESSOR OF ENGLISH Work Phone: [facility] 11-15-2021 10:42-0400 Body height 147.[address] Emily Sanders Work Phone: [facility] Work Phone: 11-15-2021 10:42-0400 Body mass index (BMI) [Ratio] 31 kg/m2 Dr. Emily Sanders Work Phone: [facility] Work Phone: 11-15-2021 10:42-0400 Body weight 67.[address] Emily Sanders Work Phone: [facility] Work Phone: 09-24-2021 10:15-0400 Body mass index (BMI) [Ratio] 30.7 kg/m2 Dr. Emily Sanders Work Phone: [facility] Work Phone: 09-24-2021 10:15-0400 Body temperature 97.6 [degF] Dr. Emily Sanders Work Phone: [facility] Work Phone: 09-24-2021 10:15-0400 Body weight 66.[address] Emily Sanders Work Phone: [facility] Work Phone: 09-24-2021 10:15-0400 Diastolic blood pressure 74 mm[Hg] Dr. Emily Sanders Work Phone: [facility] Work Phone: 09-24-2021 10:15-0400 Heart rate 75 /min Dr. Emily Sanders Work Phone: [facility] Work Phone: 09-24-2021 10:15-0400 Respiratory rate 16 /min Dr. Emily Sanders Work Phone: [facility] Work Phone: 09-24-2021 10:15-0400 SaO2% (BldA) [Mass fraction] 97 % Dr. Emily Sanders Work Phone: [facility] Work Phone: 09-24-2021 10:15-0400 Systolic blood pressure 116 mm[Hg] Dr. Emily Sanders Work Phone: [facility] Work Phone: 07-15-2021 11:02-0400 Body height 147.[address] Emily Sanders Work Phone: [facility] Work Phone: 07-15-2021 11:02-0400 Body weight 64.[address] Emily Sanders Work Phone: [facility] Work Phone: 07-15-2021 11:02-0400 Diastolic blood pressure 72 mm[Hg] Dr. Emily Sanders Work Phone: [facility] Work Phone: 07-15-2021 11:02-0400 Heart rate 64 /min Dr. Emily Sanders Work Phone: [facility] Work Phone: 07-15-2021 11:02-0400 Respiratory rate 16 /min Dr. Emily Sanders Work Phone: [facility] Work Phone: 07-15-2021 11:02-0400 Systolic blood pressure 116 mm[Hg] Dr. Emily Sanders Work Phone: [facility] Work Phone: 07-01-2021 13:37-0400 Body mass index (BMI) [Ratio] 30.5 kg/m2 Dr. Emily Sanders Work Phone: [facility] Work Phone: 07-01-2021 13:37-0400 Body temperature 98.4 [degF] Dr. Emily Sanders Work Phone: [facility] Work Phone: 07-01-2021 13:37-0400 Body weight 66.[address] Emily Sanders Work Phone: [facility] Work Phone: 07-01-2021 13:37-0400 Diastolic blood pressure 84 mm[Hg] Dr. Emily Sanders Work Phone: [facility] Work Phone: 07-01-2021 13:37-0400 Heart rate 71 /min Dr. Emily Sanders Work Phone: [facility] Work Phone: 07-01-2021 13:37-0400 Respiratory rate 14 /min Dr. Emily Sanders Work Phone: [facility] Work Phone: 07-01-2021 13:37-0400 SaO2% (BldA) [Mass fraction] 97 % Dr. Emily Sanders Work Phone: [facility] Work Phone: 07-01-2021 13:37-0400 Systolic blood pressure 124 mm[Hg] Dr. Emily Sanders Work Phone: [facility] Work Phone: 05-07-2021 14:23-0400 Body height 152.4 cm Leo Monroe MD Work Phone: [facility] 05-07-2021 14:23-0400 Body weight 65.32 kg Leo Monroe MD Work Phone: [facility] 05-07-2021 14:23-0400 Diastolic blood pressure 72 mm[Hg] Leo Monroe MD Work Phone: [facility] 05-07-2021 14:23-0400 Systolic blood pressure 112 mm[Hg] Leo Monroe MD Work Phone: [facility] 04-17-2021 09:49-0500 Body mass index (BMI) [Ratio] 30.2 kg/m2 Dr. Emily Sanders Work Phone: [facility] Work Phone: 04-17-2021 09:49-0500 Body temperature 98.4 [degF] Dr. Eimly Sanders Work Phone: [facility] Work Phone: 04-17-2021 09:49-0500 Body weight 65.[address] Emily Sanders Work Phone: [facility] Work Phone: 04-17-2021 09:49-0500 Diastolic blood pressure 80 mm[Hg] Dr. Emily Sanders Work Phone: [facility] Work Phone: 04-17-2021 09:49-0500 Heart rate 51 /min Dr. Emily Sanders Work Phone: [facility] Work Phone: 04-17-2021 09:49-0500 Respiratory rate 15 /min Dr. Emily Sandres Work Phone: [facility] Work Phone: 04-17-2021 09:49-0500 SaO2% (BldA) [Mass fraction] 97 % Dr. Emily Sanders Work Phone: [facility] Work Phone: 04-17-2021 09:49-0500 Systolic blood pressure 131 mm[Hg] Dr. Emily Sanders Work Phone: [facility] Work Phone: 01-19-2021 18:57-0500 Diastolic blood pressure 72 mm[Hg] No Pcp Required [facility] 01-19-2021 18:57-0500 Heart rate 62 /min No Pcp Required [facility] 01-19-2021 18:57-0500 Respiratory rate 16 /min No Pcp Required [facility] 01-19-2021 18:57-0500 SaO2% (BldA) [Mass fraction] 98 % No Pcp Required [facility] 01-19-2021 18:57-0500 Systolic blood pressure 109 mm[Hg] No Pcp Required [facility] 01-19-2021 14:56-0500 Body height 147.3 cm No Pcp Required [facility] 01-19-2021 14:56-0500 Body temperature 98.78 [degF] No Pcp Required [facility] 01-19-2021 14:56-0500 Body weight 62.7 kg No Pcp Required [facility] 08-29-2020 09:37-0400 Body mass index (BMI) [Ratio] 28.8 kg/m2 Dr. Emily Sanders Work Phone: [facility] Work Phone: 03-26-2020 10:55-0500 Body mass index (BMI) [Ratio] 27.6 kg/m2 Dr. Emily Sanders Work Phone: [facility] 03-26-2020 10:55-0500 Body temperature 98.9 [degF] Dr. Emily Sanders Work Phone: [facility] 03-26-2020 10:55-0500 Diastolic blood pressure 69 mm[Hg] Dr. Emily Sanders Work Phone: [facility] 03-26-2020 10:55-0500 Heart rate 61 /min Dr. Emily Sanders Work Phone: [facility] 03-26-2020 10:55-0500 Respiratory rate 16 /min Dr. Emily Sanders Work Phone: [facility] 03-26-2020 10:55-0500 SaO2% (BldA) [Mass fraction] 95 % Dr. Emily Sanders Work Phone: [facility] 03-26-2020 10:55-0500 Systolic blood pressure 102 mm[Hg] Dr. Emily Sanders Work Phone: [facility] 03-26-2020 09:55-0500 Body mass index (BMI) [Ratio] 27.6 kg/m2 Dr. Emily Sanders Work Phone: [facility] Work Phone: 03-26-2020 09:55-0500 Body temperature 98.9 [degF] Dr. Emily Sanders Work Phone: [facility] Work Phone: 03-26-2020 09:55-0500 Body weight 59.[address] Emily Sanders Work Phone: [facility] Work Phone: 03-26-2020 09:55-0500 Diastolic blood pressure 69 mm[Hg] Dr. Emily Sanders Work Phone: [facility] Work Phone: 03-26-2020 09:55-0500 Heart rate 61 /min Dr. Emily Sanders Work Phone: [facility] Work Phone: 03-26-2020 09:55-0500 Respiratory rate 16 /min Dr. Emily Sanders Work Phone: [facility] Work Phone: 03-26-2020 09:55-0500 SaO2% (BldA) [Mass fraction] 95 % Dr. Emily Sanders Work Phone: [facility] Work Phone: 03-26-2020 09:55-0500 Systolic blood pressure 102 mm[Hg] Dr. Emily Sanders Work Phone: [facility] Work Phone: Encounters Encounter Date Encounter Type Care Provider Facility Start: 09-09-2024 End: 09-09-[address] Emily Sanders MD Work Phone: -[facility] Start: 09-09-2024 End: 09-09-2024 Patient encounter procedure Manolo JOHNSON -[facility] Work Phone: Start: 09-03-2024 End: 09-03-2024 Emergency department patient visit Dr. Emily Sanders MD Work Phone: -Emergency Department Work Phone: Start: 07-28-2024 End: 07-28-2024 ambulatory Emily Sanders Facility:[facility] Start: 07-28-[address] Gene Braun MD -[facility] Start: 07-19-2024 End: 07-19-[address] Gulshan Jules MD -[facility] Work Phone: Start: 07-19-2024 End: 07-19-[address] Emily Sanders MD Work Phone: [facility] Work Phone: Start: 07-15-2024 End: 07-15-2024 ambulatory EMILY SANDERS MD Facility:[facility] Start: 07-15-2024 End: 07-15-2024 Patient encounter procedure VONDA MUELLER HYDROBLASTER-ADJUNCT PROFESSOR OF ENGLISH [facility] Start: 07-14-2024 End: 07-14-[address] Emily Sanders MD Work Phone: [facility] Work Phone: Start: 07-14-2024 End: 07-14-2024 Patient encounter procedure Vonda Mueller NP-C -[facility] Start: 07-14-2024 End: 07-14-2024 ambulatory Vonda Mueller Facility:[facility] Start: 06-30-2024 End: 06-30-[address] Emily Sanders MD Work Phone: [facility] Work Phone: Start: 06-30-2024 End: 06-30-2024 Patient encounter procedure Vonda Mueller ELECTRONICS ENGINEERING TECHNICIAN-C -[facility] Start: 06-29-2024 End: 06-29-2024 Patient encounter procedure Vonda Mueller ELECTRONICS ENGINEERING TECHNICIAN-C -[facility] Work Phone: Start: 06-29-2024 End: 06-30-[address] Emily Sanders MD Work Phone: [facility] Work Phone: Start: 06-27-2024 End: 06-27-[address] Emily Sanders MD Work Phone: [facility] Work Phone: Start: 06-27-2024 End: 06-27-[address] Jorgito Boogie MD -Ultrasound [facility] Work Phone: Start: 06-27-2024 End: 06-27-2024 ambulatory Jorgito Boogie Facility:[facility] Start: 06-20-2024 End: 06-20-2024 Patient encounter procedure Adi Galo MI -[facility] Work Phone: Start: 06-20-2024 End: 06-20-2024 ambulatory Eduardolilliejimmyjaron Pinomarie Facility:[facility] Start: 06-04-2024 End: 06-06-2024 Refill Lee Katz DO Work Phone: Obstetrics/Gynecology Comment on above: Refill Request Start: 05-20-2024 End: 05-20-2024 ambulatory EMILY SANDERS Facility: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 Emily Sanders MD Work Phone: [facility] Work Phone: Start: 04-27-2024 End: 04-27-[address] Emily Sanders MD -Laboratory, Spec[facility] Work Phone: Start: 04-27-2024 End: 04-27-[address] Emily Sanders MD -[facility] Work Phone: Start: 04-27-2024 End: 04-27-2024 ambulatory [facility] Facility:[facility] Start: 04-27-2024 End: 04-27-2024 ambulatory [facility] Facility:[facility] Start: 04-25-2024 End: 04-25-[address] Gene Braun MD -[facility] Work Phone: Start: 04-25-2024 End: 04-25-2024 ambulatory [facility] Facility:[facility] Start: 04-22-2024 End: 04-22-[address] Emily Sanders MD Work Phone: [facility] Work Phone: Start: 04-22-2024 End: 04-22-[address] Emily Sanders MD -Sleep Lab Work Phone: Start: 04-22-2024 End: 04-22-2024 ambulatory [facility] Facility:[facility] Start: 04-18-[address] Gene Braun MD -[facility] Start: 04-04-2024 End: 04-04-[address] Emily Sanders MD Work Phone: [facility] Work Phone: Start: 04-04-2024 End: 04-04-[address] Emily Sanders MD -Laboratory, [place] Start: 04-04-2024 End: 04-04-[address] Emily Sanders MD -[facility] Work Phone: Start: 04-04-2024 End: 04-04-2024 ambulatory [facility] Facility:[facility] Start: 04-04-2024 End: 04-04-2024 ambulatory [facility] Facility:[facility] Start: 04-03-2024 End: 04-03-2024 Emergency department patient visit Dr. Emily Sanders MD Work Phone: -Emergency Department Work Phone: Start: 03-31-2024 End: 03-31-2024 Emergency department patient visit Dr. Alli Ding MD -Emergency Department Work Phone: Start: 03-29-2024 End: 03-29-2024 Patient encounter procedure Valentine Roth HYDROBLASTER-[facility] Work Phone: [facility] Comment on above: Influenza A (Primary Dx); Acute cough Start: 03-29-2024 End: 03-29-2024 [facility] Start: 03-23-2024 End: 03-23-[address] Jorgito Boogie MD -Laboratory, [place] Work Phone: Start: 03-23-2024 End: 03-23-[address] [facility] Facility:[facility] Start: 02-11-2024 End: 02-11-2024 ambulatory [facility] Facility:[facility] Start: 02-11-2024 End: 02-11-2024 Patient encounter procedure Leo Monroe MD Work Phone: OB/Gynecology Comment on above: Fatty liver (Primary Dx); Encounter for screening mammogram for malignant neoplasm of breast; Hormone replacement therapy (HRT) Start: 02-11-2024 End: 02-11-[address] [facility] Facility:[facility] Start: 02-08-2024 End: 02-08-[address] Jorgito Boogie MD -Laboratory, [place] Work Phone: Start: 02-08-2024 End: 02-08-2024 ambulatory [facility] Facility:[facility] Start: 01-18-2024 ambulatory Ghada Magana Facility: [place] Start: 01-18-2024 Non-patient / Non-visit Dr. Saba MCGEE -[facility] Start: 01-18-2024 End: 01-18-[address] Ghada Magana MD -Cat Scan, [facility] Work Phone: Start: 01-18-2024 End: 01-18-2024 ambulatory Ghada Chino Facility:[facility] Start: 01-15-2024 End: 01-15-2024 ambulatory LEE KATZ Facility:[facility] Start: 01-15-2024 End: 01-15-2024 Patient encounter procedure Lee Katz DO Work Phone: Obstetrics/Gynecology Comment on above: Abnormal uterine ble eding (AUB) (Primary Dx) Start: 01-14-2024 End: 01-14-[address] Emily Sanders MD -Laboratory, [place] Start: 01-14-2024 End: 01-14-2024 ambulatory [facility] Facility:[facility] Start: 01-12-2024 End: 01-12-[address] Jorgito Boogie MD -Ultrasound, [facility] Work Phone: Start: 01-12-2024 End: 01-12-2024 ambulatory Jorgito Boogie Facility:[facility] Start: 12-31-2023 End: 12-31-[address] Emily Sanders MD -[facility] Work Phone: Start: 12-31-2023 End: 12-31-2023 ambulatory Emily Sanders Facility:[facility] Start: 12-17-2023 End: 12-17-2023 ambulatory [facility] Facility:[facility] Start: 12-17-2023 End: 12-17-2023 Patient encounter procedure Yennifer Tomas APRN.ADJUNCT PROFESSOR OF ENGLISH Work Phone: Gynecology Comment on above: Vaginal discharge (P rimary Dx) Start: 12-11-2023 End: 12-11-2023 ambulatory Jennispencer Kellerkeysha Facility:[facility] Start: 12-08-2023 End: 12-08-2023 ambulatory Ghada Magana Facility:[facility] Start: 12-07-2023 End: 12-09-2023 ambulatory Lee Katz DO Work Phone: Obstetrics/Gynecology Start: 12-07-2023 End: 12-09-2023 Patient encounter procedure Lee Alemanrl DO Work Phone: Obstetrics/Gynecology Comment on above: Unable to make the 1 :15 appointment today Unable to make 1:15 appointment today. Start: 12-06-2023 End: 12-06-2023 Telephone encounter Lee Beltre MD Work Phone: Gynecology Start: 11-30-2023 End: 11-30-2023 ambulatory Adi Galo Facility:[facility] Start: 11-30-2023 End: 11-30-2023 ambulatory Adi Galo Facility:[facility] Start: 11-27-2023 End: 12-01-2023 ambulatory Yennifer Brunoferminasia JESSICA Work Phone: Gynecology Comment on above: Stitches sticking ou t of incision Start: 11-24-2023 End: 11-24-2023 Telemedicine consultation with patient Yennifer Lopezisisasia CHRISTOPHER.ADJUNCT PROFESSOR OF ENGLISH Work Phone: Gynecology Start: 11-24-2023 End: 11-24-2023 ambulatory Yennifer Manuela Genoveva HYDROBLASTER.ADJUNCT PROFESSOR OF ENGLISH Work Phone: Gynecology Comment on above: Postop check (Primar y Dx); Premature ovarian failure Start: 11-19-2023 End: 11-20-2023 ambulatory Lee Katz DO Work Phone: Obstetrics/Gynecology Comment on above: Question regarding S URGICAL PATHOLOGY Start: 11-13-2023 End: 11-13-2023 Telephone encounter Lee Katz DO Work Phone: [facility] Comment on above: Surgical Followup Start: 11-12-2023 End: 11-12-2023 Telephone encounter Lee Katz DO Work Phone: Gynecology Comment on above: Post Op Follow Up Start: 11-11-2023 End: 11-11-2023 Telephone encounter Lee Katz DO Work Phone: [facility] Comment on above: Orders Start: 11-10-2023 End: 11-10-2023 ambulatory LEE KATZ Facility:[facility] Start: 11-10-2023 Encounter for other preprocedural examination LEE KATZ [facility] Start: 11-06-2023 Encounter for other preprocedural examination LEE KATZ [facility] Start: 11-06-2023 End: 11-06-2023 Admission to establishment [facility] [place] 1 Work Phone: Pre Anesthesia Start: 11-06-2023 End: 11-06-2023 ambulatory EMILY SANDERS Facility:[facility] Start: 11-06-2023 End: 11-06-2023 Preprocedural examination done Pac [place] 1 Work Phone: [facility] Work Phone: Start: 11-06-2023 End: 11-09-2023 Telephone encounter Adeline Jama APRN.CNP Work Phone: Pre Anesthesia Comment on above: Pre-operative examin ation (Primary Dx); Leukopenia, unspecified type; Thrombocytopenia (HCC); Fatty liver; Mitral valve prolapse; Basal cell carcinoma (BCC), unspecified site; Mixed anxiety depressive disorder; Obesity, Class I, BMI 30-34.9 Start: 2023 End: 2023 ambulatory Nurse Earth Science Technical Officer Work Phone: Gynecology Comment on above: Educational circumst ances (Primary Dx) Start: 2023 End: 2023 Telemedicine consultation with patient Nurse Earth Science Technical Officer Work Phone: Gynecology Start: 10-29-2023 End: 10-29-2023 ambulatory LEE KATZ Facility:[facility] Start: 10-29-2023 Encounter for other preprocedural examination LEE KATZ [facility] Start: 10-29-2023 End: 11-17-2023 Telephone encounter Lee Katz DO Work Phone: Gynecology Comment on above: Patient Question Start: 10-28-2023 End: 10-28-2023 Patient encounter status Lee Katz DO Work Phone: [facility] Work Phone: Start: 10-28-2023 End: 10-28-2023 Telephone encounter Lee Katz DO Work Phone: Obstetrics/Gynecology Comment on above: Patient Question Start: 10-26-2023 End: 10-26-2023 ambulatory LOE MONROE Facility:[facility] Start: 10-26-2023 End: 10-26-2023 Patient encounter procedure Lee Katz DO Work Phone: Obstetrics/Gynecology Comment on above: Pelvic pain in femal e (Primary Dx); Intramural and subserous leiomyoma of uterus; Preop examination Start: 10-26-2023 End: 10-26-2023 Preprocedural examination done Lee Katz DO Work Phone: [facility] Start: 10-06-2023 End: 10-06-20[facility] Start: 10-05-2023 End: 10-05-2023 ambulatory [facility] Facility:[facility] Start: 08-17-2023 Telephone encounter Lee clancy DO Work Phone: Obstetrics/Gynecology Comment on above: Patient Question Start: 08-14-2023 Telephone encounter Lee clancy DO Work Phone: Obstetrics/Gynecology Comment on above: Appointment Start: 08-12-2023 End: 08-12-2023 ambulatory [facility] Facility:[facility] Start: 08-12-2023 End: 08-12-2023 Patient encounter procedure Leo Monroe MD Work Phone: OB/Gynecology Comment on above: Intramural and subse bess leiomyoma of uterus (Primary Dx); Pelvic pressure in female; Urinary frequency; Premature ovarian failure Start: 06-30-2023 Telephone encounter Sherly valencia APRN.CNP Work Phone: OB/Gynecology Comment on above: Results; Appointment Start: 06-26-2023 End: 06-26-2023 ambulatory [facility] Facility:[facility] Start: 06-26-2023 End: 06-26-2023 Subsequent hospital visit by physician [facility] 1 Work Phone: Radiology Comment on above: Breakthrough bleedin g on control pills [N92.1] Start: 05-29-2023 End: 05-29-[address] Emily Sanders Work Phone: [facility] Work Phone: Start: 05-29-[address] Manuela Sanders Work Phone: [facility] Start: 05-29-2023 End: 05-29-2023 Encounter for general adult medical examination without abnormal findings Dr. Emily Sanders Work Phone: [facility] Start: 05-29-2023 End: 05-29-[address] Emily Sanders Work Phone: [facility] Work Phone: Start: 05-19-2023 End: [...] encounter status Sherly Ng APRN.CNP Work Phone: [facility] Start: 04-29-[address] Neena Sanders Work Phone: [facility] Start: 04-28-2023 End: 04-28-[address] Emily Sanders Work Phone: [facility] Work Phone: Start: 02-10-2023 End: 02-10-[address] Emily Sanders Work Phone: [facility] Work Phone: Start: 02-10-2023 End: 02-10-[address] Emily Sanders Work Phone: [facility]-Laboratory, [place] Start: 02-06-2023 End: 02-06-[address] Emily Sanders Work Phone: [facility] Work Phone: Start: 02-01-2023 End: 02-02-2023 Emergency department patient [facility]. Emily Sanders [facility] Work Phone: Start: 12-17-2022 End: 12-17-[address] Emily Sanders Work Phone: [facility] Work Phone: Start: 12-17-2022 End: 12-17-[address] Emily Sanders Work Phone: [facility] Work Phone: Start: 11-03-2022 End: 11-03-[address] Emily Sanders Work Phone: [facility] Work Phone: Start: 10-15-2022 End: 10-15-2022 Patient encounter procedure Negrito Forresterer HYDROBLASTER.ADJUNCT PROFESSOR OF ENGLISH Work Phone: Telemedicine Comment on above: APPOINTMENT CANCELLE D (Primary Dx) Start: 10-15-2022 End: 10-15-2022 Telemedicine consultation with patient Negrito Forresterer HYDROBLASTER.ADJUNCT PROFESSOR OF ENGLISH Work Phone: [facility] Start: 05-09-2022 End: 05-09-2022 Patient encounter procedure Sherly Ng APRN.ADJUNCT PROFESSOR OF ENGLISH Work Phone: OB/Gynecology Comment on above: Encounter for gyneco logical examination (general) (routine) without abnormal findings (Primary Dx); Premature ovarian failure; Breakthrough bleeding on control pills Start: 05-09-2022 End: 05-09-2022 Patient encounter status Sherly Ng APRN.ADJUNCT PROFESSOR OF ENGLISH Work Phone: OB/Gynecology Start: 01-17-2022 End: 01-17-2022 Patient encounter procedure Sherly Ng APRN.ADJUNCT PROFESSOR OF ENGLISH Work Phone: OB/Gynecology Comment on above: Friable cervix (Prim alec Dx); Breakthrough bleeding on OCPs; Vagina itching Start: 12-13-2021 End: 12-13-[address] Emily Sanders Work Phone: [facility] Work Phone: Start: 12-13-2021 End: 12-13-[address] Emily Sanders Work Phone: [facility] Start: 11-15-2021 End: 11-15-[address] Emily Sanders Work Phone: [facility] Start: 10-18-2021 End: 10-18-2021 Subsequent hospital visit by physician [employer] [facility] (I-Stat/1.5t) Work Phone: Radiology Start: 09-24-2021 End: 09-24-[address] Emily Sanders Work Phone: [facility] Start: 08-22-2021 End: 08-22-[address] Emily Sanders Work Phone: [facility]-Physical Therapy Start: 07-15-2021 End: 07-15-[address] Emily Sanders Work Phone: [facility] Start: 07-12-[address] Neena Sanders Work Phone: [facility]-Physical Therapy Start: 07-10-2021 End: 07-10-[address] Emily Sanders Work Phone: [facility]-Sleep Lab Start: 07-01-2021 End: 07-01-[address] Emily Sanders Work Phone: [facility] Start: 05-07-2021 End: 05-07-2021 Patient [...] Registered Recurring Dr. Neena Sanders Work Phone: [facility] Start: 04-17-2021 End: 04-17-[address] Emily Sanders Work Phone: [facility] Start: 01-19-2021 End: 01-19-2021 Emergency department patient visit James Camacho [facility] Emergency 08 Start: 12-04-[address] Manuela Sanders Work Phone: [facility] Procedures Date Procedure Procedure Detail Performing Clinician Start: 09-03-2024 X-ray of foot, three or more views Dr. Emily Sanders MD Work Phone: Start: 07-14-2024 Total iron binding c apacity [...] HAVtotal antibody results to IgM (e.g., panel #[id number] HAVAntibody w/ Rfx).Performed at: [facility] [employer] [id number] Director: Jorgito Cunningham PhD, Phone: [phone] Start: 06-30-2024 Hepatitis C antibody measurement Dr. [...] HCV Quant by PCR testing - HCVPCR #[id number] Non Reactive: < 0.8 Equivocal: >/= 0.8 to < 1.0 Reactive: >/= 1.0The CDC requires that a reactive/equivocal HCV antibody result be sent out for confirmation. HCV Quant by PCR testing. Start: 06-30-[address] Remy Sanders MD Work Phone: Comment on above: Test Ordered: [id number] Enhanced Liver Fibrosis (ELF)ELF(TM) Score 9.04 Reference Range: <9.80ELF(TM) Score Interpretation:Risk cut-offs to assess the likelihood of progressionto cirrhosis and liver-related clinical events within3.9 years following baseline ELF score (IQR: 14.0-22.4months)*: Lower risk < 9.80 Mid risk 9.80 - 11.29 Higher risk >11.29Note: The ELF(TM) Score is a unitless numerical value.*Howard SA, Truman VW, Ana M T, et al. Selonsertibfor patients with bridging fibrosis or compensatedcirrhosis due to VALERA: Results from randomized phaseIII STELLAR trials. J Hepatol. 2020 Aug;73(1):26-39.Performed at: [facility] [employer] [id number] Director: Montserrat Gibbons MD, Phone: [phone] at: [address] [id number] Director: Jorgito Cunningham PhD, Phone: [phone] Start: 06-30-2024 Total iron binding c apacity [...] POCT SARS-COV-2/FLU/ RSV PCR SYMPTOMATIC Valentine Roth HYDROBLASTER-ADJUNCT PROFESSOR OF ENGLISH Work Phone: Start: 02-11-2024 Dual energy X-ray absorptiometry Dr. Emily Sanders MD Work Phone: Start: 01-18-2024 Cardiac computed vince ography for calcium scoring Dr. Emily Sanders MD Work Phone: Start: 01-12-[address] Emily Sanders MD Work Phone: Start: 10-29-2023 Antibody screen LEE B HELEN Comment on above: Order Comment: Speci men Type: BLOOD SPECIMEN Ordering Facility: [facility] Address: [address] [place] [address] Performed By: #### T [id number] #### CC MAIN BLOOD BANK [facility] [id number] [address] [place] [address] [place] Start: 08-06-2023 Immature reticulocyte fraction [...] Phone: Start: 12-13-2021 MRI of cervical spine Marcello Sanders Work Phone: Start: 10-18-2021 Mri spinal canal cer vical w/o contrast matrl [facility] Provider Start: 07-01-2021 X-ray of cervical spine Dr. Emily Sanders Work Phone: Start: 05-07-2021 Microscopic observat ion [Identifier] in Cervix by Cyto stain Valentine Roth HYDROBLASTER-ADJUNCT PROFESSOR OF ENGLISH Work Phone: H/O: hysterectomy S/P hysterectomy Dr. Eduardo Sanders MD Work Phone: Comment on above: 11/10/2023 Plan of Treatment Date Care Activity Detail Author Start: 2034 Zoster Vaccines (1 of 2) Zoste r Vaccines (1 of 2) [facility] Start: 08-16-2029 DTaP/Tdap/Td Vaccine s (3 - Td or Tdap) DTaP/Tdap/Td Vaccines (3 - Td or Tdap) [facility] Start: 08-16-2029 Urine microalbumin profile [facility] Start: 05-07-2026 HPV TESTING HPV TESTING [facility] Start: 05-07-2026 PAP TESTING PAP TESTING [facility] Start: 05-07-2026 Screening for malign ant neoplasm of cervix [facility] Start: 05-23-2025 End: 05-23-2025 Patient encounter procedure 05/23/2025 10:30 AM EDT Office Visit OB/Gynecology [address] [place] [place] [address] Sherly Ng APRN.ADJUNCT PROFESSOR OF ENGLISH [address] [place] [address] ANNUAL OB/Gynecology Comment on above: ANNUAL Start: 11-03-2024 End: 11-03-2024 Patient encounter procedure 11/03/2024 2:50 PM EDT Appointment Mammogram [address] [place] [address] Encounter for screening mammogram for malignant neoplasm of breast [Z12.31] Mammogram Comment on above: Encounter for screen ing mammogram for malignant neoplasm of breast [Z12.31] Start: 09-12-2024 HPV TESTING HPV TESTING [facility] Start: 09-12-2024 PAP TESTING PAP TESTING [facility] Start: 09-03-2024 [facility] Start: 07-28-2024 [facility] Start: 06-30-2024 Procedure [facility] Start: 05-20-2024 End: 05-20-2024 Patient encounter procedure 05/20/2024 4:00 PM EDT Office Visit OB/Gynecology [address] [place] [address] Sherly Ng APRN.ADJUNCT PROFESSOR OF ENGLISH [address] [place] [address] annual exam OB/Gynecology Comment on above: annual exam Start: 05-07-2024 Screening for malign ant neoplasm of cervix [facility] Start: 04-27-2024 Patient referral [facility] Work Phone: Start: 04-22-2024 Polysomnography [facility] Start: 04-03-2024 End: 04-03-2024 [facility] Start: 03-31-2024 Respiratory secretio n precautions [facility] Start: 01-18-2024 Following clinical p brettway protocol [facility] Start: 01-15-2024 End: 01-15-2024 Patient encounter procedure 01/15/2024 1:45 PM EST Office Visit Obstetrics/Gynecology [address] [address] Lee Katz DO [address] [address] 6 WEEK POST OP Obstetrics/Gynecolo gy Comment on above: 6 WEEK POST OP Start: 12-17-2023 End: 12-17-2023 Patient encounter procedure 12/17/2023 3:00 PM EST Office Visit Gynecology [address] [place] [address] Yennifer Tomas APRN.ADJUNCT PROFESSOR OF ENGLISH [address] [place] [address] vaginal cuff check Gynecology Comment on above: vaginal cuff check Start: 11-24-2023 End: 11-24-2023 ambulatory 11/24/2023 4:00 PM EDT [facility] Gynecology [address] [place] [address] Yennifer Tomas APRN.ADJUNCT PROFESSOR OF ENGLISH [address] [place] [address] 2 WEEK POST OP Gynecology Comment on above: 2 WEEK POST OP Start: 11-10-2023 End: 11-10-2023 Admission to same day surgery center 11/10/2023 2:05 PM EDT - 11/10/2023 5:54 PM EDT Surgery Admitting [address] [place] [address] Lee Katz DO [address] [address] LAPAROSCOPIC HYSTERECTOMY TOTAL FOR UTERUS 250 G OR LESS W/REMOVAL TUBE(S) AND/OR OVARY(S) Admitting Comment on above: LAPAROSCOPIC HYSTERE CTOMY TOTAL FOR UTERUS 250 G OR LESS W/REMOVAL TUBE(S) AND/OR OVARY(S) Start: 11-10-2023 Subsequent hospital visit by physician 11/10/2023 2:05 PM EDT Hospital Encounter Admitting [address] [place] [address] Lee Katz DO [address] [place] [address] Intramural and subserous leiomyoma of uterus [D25.1, [...] 1:40 PM EDT PAT Pre Anesthesia [address] [place] [address] 1, Pacc [address] [address] PACC Pre Anesthesia Comment on above: PACC Start: 2023 End: 2023 ambulatory 2023 2:00 PM EDT [facility] Gynecology [address] [address] Earth Science Technical Officer, Nurse [address] [place] [address] RN TEACHING Gynecology Comment on above: RN TEACHING Start: 10-29-2023 End: 10-29-2023 ambulatory 10/29/2023 4:00 PM EDT Results Only [facility] [address] [place] [address] [facility] Start: 10-28-2023 End: 10-27-2024 CBC W Auto Differential panel - Blood COMPLETE BLOOD COUNT AND DIFFERENTIAL Lab Routine Preop testing Expected: 10/28/2023, Expires: 10/27/2024 [facility] Work Phone: Comment on above: Expected: 10/28/2023 , Expires: 10/27/2024 Start: 10-28-2023 End: 10-27-2024 TYPE AND SCREEN,30 DAY TYPE AND SCREEN,30 DAY Blood Bank Routine Preop testing Expected: 10/28/2023, Expires: 10/27/2024 [facility] Comment on above: Expected: 10/28/2023 , Expires: 10/27/2024 Start: 10-26-2023 End: 10-26-2023 Patient encounter procedure 10/26/2023 9:00 AM EDT Office Visit Obstetrics/Gynecology [address] [address] Lee Katz DO [address] [place] [address] Intramural and subserous leiomyoma of uterus [D25.1, D25.2] Obstetrics/Gynecolo gy Comment on above: Intramural and subse bess leiomyoma of uterus [D25.1, D25.2] Start: 10-11-2023 COVID-19 Vaccine ( season) COVID-19 Vaccine ( season) [facility] Start: 10-11-2023 Covid-19 Vaccine ( season) Covid-19 Vaccine ( season) [facility] Start: 10-11-2023 Covid-19 Vaccine ( season) Covid-19 Vaccine ( season) [facility] Start: 10-11-2023 Influenza vaccination C [facility] Start: 08-12-2023 End: 08-12-2023 Patient encounter procedure 08/12/2023 11:40 AM EDT Office Visit OB/Gynecology [address], [place] [address] Leo Barnett MD [address] [place] [id number] consult hysterectomy OB/Gynecology Comment on above: consult hysterectomy Start: 05-19-2023 End: 05-18-2024 US Pelvis PELVIC US [facility] Anc Imaging Routine Breakthrough bleeding on control pills Uterine leiomyoma, unspecified location Expected: 05/19/2023, Expires: 05/18/2024 [facility] Work Phone: Comment on above: Expected: 05/19/2023 , Expires: 05/18/2024 Start: 02-09-2023 Behavioral Health Screening Behavioral Health Screening [facility] Start: 02-02-2023 End: 02-02-2023 [facility] Start: 02-01-2023 Bacteria identified in Urine by Culture Urine Culture [facility] Start: 12-17-2022 [facility] Start: 12-17-2022 Urine culture Urine Culture [facility] Start: 10-10-2022 Covid-19 Vaccine () Covid-19 Vaccine () [facility] Start: 10-10-2022 Influenza vaccination INFLUENZA (#1) [facility] Start: 02-09-2022 DEPRESSION ASSESSMENT DEPRESSION ASS ESSMENT [facility] Start: 10-10-2021 Influenza vaccination INFLUENZA (#1) [facility] Start: 07-01-2021 Patient referral [facility] Work Phone: Start: 05-26-2021 COVID-19 VACCINE (3 - Booster for Pfizer series) COVID-19 VACCINE (3 - Booster for Pfizer series) [facility] Start: 02-20-2021 COVID-19 VACCINE (3 - Booster for Pfizer series) COVID-19 VACCINE (3 - Booster for Pfizer series) [facility] Start: 02-20-2021 COVID-19 VACCINE (3 - Pfizer series) COVID-19 VACCINE (3 - Pfizer series) [facility] Start: 02-09-2021 DEPRESSION ASSESSMENT DEPRESSION ASS ESSMENT [facility] Start: 01-19-2021 End: 01-20-2022 [facility] Start: 10-10-2020 Influenza vaccination INFLUENZA (#1) [facility] Start: 2005 Screening for malign ant neoplasm of cervix HPV/Cotest [facility] Start: 11-03-2003 Hepatitis A Vaccines (1 of 2 - Risk 2-dose series) Hepatitis A Vaccines (1 of 2 - Risk 2-dose series) [facility] Start: 11-03-2003 Hepatitis B Vaccine (1 of 3 - 19+ 3-dose series) Hepatitis B Vaccine (1 of 3 - 19+ 3-dose series) [facility] Start: 11-03-2003 Hepatitis B Vaccines (1 of 3 - 19+ 3-dose series) Hepatitis B Vaccines (1 of 3 - 19+ 3-dose series) [facility] Start: 11-03-2003 Urine microalbumin profile DTAP,TDAP ,TD (1 - Tdap) [facility] Start: 2002 Anxiety Screening Anxiety Screening [facility] Start: 2002 Depression Screening Depression Scre [facility] Start: 2002 Diabetes mellitus screening Diabetes Screening [facility] Start: 2002 HEPATITIS C SCREENING HEPATITIS C [facility] Start: 2002 Hepatitis C screening Hepatitis C [facility] Start: 2002 HIV SCREENING HIV SCREENING [facility] Start: 2002 HIV screening HIV Screening [facility] Start: 1997 Varicella vaccination Varicell a Vaccines (1 of 2 - 13+ 2-dose series) [facility] Start: 1996 Adult depression scr eening assessment DEPRESSION SCREENING [facility] Start: 1989 COVID-19 VACCINE (1) COVID-19 VACCIN E (1) [facility] Start: 1985 MMR Vaccines (1 of 1 - Standard series) MMR Vaccines (1 of 1 - Standard series) [facility] Start: 1984 HEPATITIS B (1 of 3 - 3-dose series) HEPATITIS B (1 of 3 - 3-dose series) [facility] Start: 1984 HIV screening HIV Screening [facility] Start: 1984 Lipid panel Lipid Panel [facility] Start: 1984 Yearly Adult Physical Yearly Adult P hysical [facility] Alpha 1 antitrypsin [Mass/volume] in Serum or Plasma [facility] BACTERIAL VAGINOSIS AMPLIFICATION BACTERIAL VAGINOSIS AMPLIFICATION Lab Routine Friable cervix Breakthrough bleeding on OCPs Vagina itching 01/17/2022 12:48 PM EST [facility] Work Phone: BACTERIAL VAGINOSIS NAAT BACTERI AL VAGINOSIS NAAT Lab Routine Vaginal discharge 12/17/2023 3:25 PM EST [facility] Basic metabolic 2008 panel with ionized calcium - Serum or Plasma [facility] Bilirubin.direct [Mass/volume] in Serum or Plasma [facility] C reactive protein [Mass/volume] in Serum or Plasma [facility] JORDYN / TRICHOMONA S AMPLIFICATION JORDYN / TRICHOMONAS AMPLIFICATION Microbiology Routine Friable cervix Breakthrough bleeding on OCPs Vagina itching 01/17/2022 12:48 PM EST [facility] Work Phone: JORDYN/TRICHOMONAS NAAT JORDYN /TRICHOMONAS NAAT Lab Routine Vaginal discharge 12/17/2023 3:25 PM EST [facility] Work Phone: CBC W Auto Different ial panel - Blood [facility] CBC W Auto Different ial panel - Blood [facility] CBC W Auto Different ial panel - Blood [facility] Comprehensive metabo lic 1999 panel - Serum or Plasma [facility] metabo lic 1999 panel - Serum or Plasma [facility] Cystourethroscopy CYSTOSCOPY Int ramural and subserous leiomyoma of uterus Pelvic pain in female Preop examination SP OR End: 03-12-2025 DBT Breast - bilateral screening GUSTAVO SCREENING W LOW Radiology Routine Encounter for screening mammogram for malignant neoplasm of breast 1 Occurrences starting 02/11/2024 until 03/12/2025 [facility] Work Phone: Comment on above: 1 Occurrences starti ng 02/11/2024 until 03/12/2025 End: 06-19-2025 DBT Breast - bilateral screening GUSTAVO SCREENING W LOW Radiology Routine Encounter for screening mammogram for breast cancer 1 Occurrences starting 05/20/2024 until 06/19/2025 [facility] Work Phone: Comment on above: 1 Occurrences starti ng 05/20/2024 until 06/19/2025 Ferritin [Mass/volum e] in Serum or Plasma [facility] H&P for surgery H&P FOR SURGERY Procedures Routine Intramural and subserous leiomyoma of uterus Pelvic pain in female Preop examination Ordered: 10/26/2023 [facility] Comment on above: Ordered: 10/26/2023 Hemoglobin A1c/Hemoglobin.total in Blood [facility] Hemoglobin A1c/Hemoglobin.total in Blood [facility] Hepatitis A virus Ab [Presence] in Serum [facility] Hepatitis B virus co re Ab [Presence] in Serum [facility] Hepatitis B virus uribe rface Ab [Presence] in Serum [facility] Hepatitis C antibody measurement [facility] Iron and Iron bindin g capacity panel - Serum or Plasma [facility] Lactate dehydrogenas e measurement [facility] Laps total hysterect 250 gm/< w/rmvl tube/ovary LAPAROSCOPIC HYSTERECTOMY TOTAL FOR UTERUS 250 G OR LESS W/REMOVAL TUBE(S) AND/OR OVARY(S) Intramural and subserous leiomyoma of uterus Pelvic pain in female Preop examination SP OR Lipid 1995 panel - S cleve or Plasma [facility] Lipid 1995 panel - S cleve or Plasma [facility] Mitochondria Ab [Pre sence] in Serum [facility] MR Biliary ducts and Pancreatic duct WO contrast [facility] MR Biliary ducts and Pancreatic duct WO contrast [facility] MR Cervical spine [facility] Work Phone: PAP FLUID CERVICAL SCREENING PAP FLUID CERVICAL SCREENING Lab Routine Screening for cervical cancer Encounter for screening for human papillomavirus (HPV) 05/07/2021 2:45 PM EDT [facility] Work Phone: Patient Education [facility] Work Phone: Patient referral [facility] Work Phone: Procedure [facility] Procedure [facility] Prothrombin time [facility] REFER FOR ADMIT INTERVIEW REFER FOR ADMIT INTERVIEW Procedures Routine Intramural and subserous leiomyoma of uterus Pelvic pain in female Preop examination Ordered: 10/26/2023 [facility] Work Phone: Comment on above: Ordered: 10/26/2023 Smooth muscle Ab [Presence] in Serum [facility] Urinalysis complete panel - Urine [facility] End: 06-17-2024 US Pelvis transvaginal US FEMALE PELVIS TRANSVAG Radiology Routine Breakthrough bleeding on control pills Uterine leiomyoma, unspecified location 1 Occurrences starting 05/19/2023 until 06/17/2024 [facility] Work Phone: Comment on above: 1 Occurrences starti ng 05/19/2023 until 06/17/2024 US Pelvis transvaginal US FEMALE PELVIS TRANSVAG Radiology Routine Breakthrough bleeding on control pills Uterine leiomyoma, unspecified location 06/26/2023 3:34 PM EDT [facility] Work Phone: [facility] Immunizations Immunization Date Immunization Notes [facility] Provider [facility] tetanus toxoid, redu zhane diphtheria toxoid, and acellular pertussis vaccine, adsorbed Dr. Emily Sanders MD Work Phone: [facility] 12-26-2020 Covid (Pfizer) Dr. Emily Sanders MD Work Phone: [facility] 12-15-2020 Influenza, injectabl e, Madin [place] Canine Kidney, preservative free, quadrivalent Dr. Emily Sanders MD Work Phone: [facility] 12-15-2020 influenza virus vaccine, unspecified formulation Sherly Ng APRN.[facility] Work Phone: [facility] 12-05-2020 Covid (Pfizer) Dr. Emily Sanders MD Work Phone: [facility] 12-02-2019 influenza, injectable,quadrivalent , preservative free, pediatric Dr. Emily Sanders Work Phone: [facility] 12-02-2019 influenza, seasonal, injectable, preservative free Dr. Emily Sanders MD Work Phone: [facility] 12-02-2019 Flucelvax Quad (PF) (flu vac qs 2020(4 yr up)CD(PF)) 60 mcg ([address] Emily Sanders Work Phone: [facility] Work Phone: 08-17-2019 diphtheria, tetanus toxoids and acellular pertussis vaccine, unspecified formulation Dr. Emily Sanders Work Phone: [facility] Work Phone: 08-17-2019 tetanus toxoid, redu zhane diphtheria toxoid, and acellular pertussis vaccine, adsorbed Dr. Emily Sanders Work Phone: [facility] Work Phone: Payers Date Payer Category Payer Private Health Insurance [id number] [id number] Self-pay [id number] 2019 Self-pay [id number] 2006 [facility] PPO Member Subscriber Plan / Payer (Effective 2006-Present) Name: VIOLET HERNANDEZ Relation to Subscriber: Spouse Name: THAO HERNANDEZ Date of : 1985 (Home) Address: [address] [place] [address] Payer ID: [id number] (NAIC) Group ID: [id number] Type: PPO Address: [facility] [address] [place] [id number] 2006 [facility] [id number] 2006 Unknown 2006 Unknown ANTHEM ANTHEM BC BS FEP PPO [id number] 2006-Present [phone] [address] [place] [address] PPO [id number] 2006 Unknown [id number] 1985 Unknown [id number] 2.16.840.1.012779.3.579. 2.1243 1984 Unknown [id number] 2.16.840.1.308398.3.579. 2.627 Unknown [id number] 2.16.840.1.023224.3.579. 2.462 Unknown [id number] 2.16.840.1.856660.3.579. 2.462 Unknown [id number] 2.16.840.1.393876.3.579. 2.462 Unknown [id number] 2.16.840.1.349283.3.579. 2.462 Unknown [id number] 2.16.840.1.349484.3.579. 2.462 Unknown [id number] 2.16.840.1.735961.3.579. 2.462 Unknown [id number] 2.16.840.1.180710.3.579. 2.462 Unknown [id number] 2.16.840.1.315759.3.579. 2.462 Unknown [id number] 2.16.840.1.826758.3.579. 2.462 Unknown [id number] 2.16.840.1.122406.3.579. 2.462 Unknown [id number] 2.16.840.1.107825.3.579. 2.462 Unknown [id number] 2.16.840.1.018316.3.579. 2.462 Unknown [id number] 2.16.840.1.610982.3.579. 2.462 Unknown [id number] 2.16.840.1.317837.3.579. 2.462 Unknown [id number] 2.16.840.1.639298.3.579. 2.462 Unknown [id number] 2.16.840.1.948333.3.579. 2.462 Unknown [id number] 2.840.1.093987.3.579. 2.462 Unknown [id number] 2.840.1.275376.3.579. 2.462 Unknown [id number] 2.840.1.096022.3.579. 2.462 Unknown [id number] 2.840.1.874038.3.579. 2.462 Unknown [id number] 2.840.1.138147.3.579. 2.462 Unknown [id number] 2.16840.1.126138.3.579. 2.462 Unknown [id number] 2.840.1.035408.3.579. 2.462 Unknown [id number] 2.16840.1.566157.3.579. 2.462 Unknown [id number] 2.16840.1.689401.3.579. 2.462 Unknown [id number] 2.16.840.1.792305.3.579. 2.462 Unknown [id number] 2.16.840.1.243994.3.579. 2.462 Unknown [id number] 2.16840.1.673892.3.579. 2.462 Unknown [id number] 2.16.840.1.792953.3.579. 2.462 Unknown [id number] 2.16.840.1.652704.3.579. 2.462 Unknown [id number] 2.16.840.1.958057.3.579. 2.462 Social History Date Type Detail Facility [facility] Start: 07-15-2021 End: 02-06-2023 Tobacco smoking consumption unknown [facility] Start: 03-14-2019 End: 09-03-2024 Tobacco smoking status NHIS Never smoked tobacco [facility] Start: 03-14-2019 End: 01-17-2022 Tobacco use and exposure Smokeless tobacco non-user [facility] Start: 03-16-2020 End: 05-20-2024 Alcohol intake Lifetime non-drinker (finding) [facility] Start: 09-13-2019 History SDOH Alcohol Frequency 1 [facility] Start: 1985 Sex Assigned At Not on file [facility] Start: 04-08-2021 End: 03-29-2024 Exposure to SARS-CoV-2 (event) Not sure [facility] Start: 1985 Sex Assigned At Female [facility] Start: 03-26-2020 Non-smoker [facility] Start: 09-13-2019 End: 06-20-2022 History of Social function [facility] Start: 09-13-2019 End: 06-20-2022 Alcohol Use Disorder Identification Test - Consumption [AUDIT-C] [facility] How often to you hav e a drink containing alcohol? Never [facility] Average Number of Drinks Not on file [facility] Start: 04-30-2021 Gender identity Identifies as female gender (finding) [facility] Start: 10-28-2023 Sexual orientation Heterosexual (finding) [facility] Start: 04-15-2024 End: 05-05-2024 Sex Female (finding) [facility] Mental Status Date Assessment Result Facility 04-03-2024 Cognitive function Voice/Name [facility] Work Phone: 03-31-2024 Cognitive function Level Of Cons ciousness Awake;Alert;Appropriate [facility] Work Phone: 01-18-2024 Cognitive function Voice/Name [facility] Work Phone: Clinical Notes 04-18-2021 to 09-03-2024 Note Date & Type Note Facility 09-03-2024 Radiology Diagnostic study note [facility] Imaging Services [address] [place] [address] Foot min 3 Views MR#: [id number] Acct: [id number] Name: VIOLET HERNANDEZ Rep #: [id number] : 1985 F 38 From: Krishna Mcdonough MD PCP: Dr. Emily Sanders MD Status: R EG ER Study:Foot min 3 Views Date of Exam: Exam# [id number] Ordering Dr: Zuleyka Worley PROCEDURE: FOOT MIN 3 VIEWS 09/03/2024 REASON FOR EXAM: PAIN TECHNIQUE: FOOT MIN 3 VIEWS COMPARISON: None. FINDINGS: Bones: No acute bony abnormalities. Joints: No dislocations. Soft tissues: No soft tissue abnormalities. RAD/Foot min 3 Views IMPRESSION: No acute osseous abnormalities. Reading Location: [facility] CC: Dr. Emily Sanders MD; ELIZABETH Argueta ~ Exchange Teller: Signed [facility] 07-15-2024 Note Exam Date Time Procedure Performing Provider Status 07/15/24 4:20 PM MRI MRPC THAO MIJARES MD; Auth (V erified) [id number] ORIGINAL EXAMINATION: MRCP 07/15/2024 4:21 pm TECHNIQUE: [...] Sign Date: 07/15/2024 4:28:26 PM Ordering Provider: [facility]05-21-2025 Evaluation note* Diagnosis Onset Date Resolution Status Admit Date Common bile duct dilation acute June 29, 2024 8:01am Elevated alkaline phosphatas e level acute June 29, 2024 8 :01am Elevated transaminase level acute June 29, 2024 8:01am VALERA (nonalcoholic steatohepatitis) chronic June 29, 2024 8:01am Drug-induced liver injury acute July 19, 2024 12:01pm Elevated liver enzymes acute 2024 12:01pm 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 Emily Sanders MD Status: R EG CLI Study:ABD Limited w/ Elastography Date of Exa m: 06/27/24 Exam# [id number] Ordering Dr: Carlos Boogie MD PROCEDURE: ABD LIMITED W/ ELASTOGRAPHY REASON FOR EXAM: FATTY LIVER COMPARISON: Prior study dated January 12, 2024. TECHNIQUE: Right upper quadrant abdominal ultrasound. Misa ElastQ Imaging shear wave elastography for non-invasive assessment [...] quadrant ascites. US/ABD Limited w/ Elastography IMPRESSION: [id number] HEPATIC FIBROSIS Reference Values: SRU <1.37 m/s [...] measurement may be in question. Reading Location: [place] [address] CC: Dr. Emily Sanders MD; Dr. Jorgito Boogie MD ~ Exchange Teller: Signed [facility]04-28-2025 Telephone encounter Note* Telephone Encounter - Janette [...] Department Center 11/03/2024 2:50 PM SCREEN MAMMO [facility] W[facility] RDXWS Martin Bullock 05/23/2025 10:30 AM Sherly Ng APRN.ADJUNCT PROFESSOR OF ENGLISH OBGYWMatt Bullock Appointment scheduled: No follow-up visit currently scheduled. Action taken: Refill request routed to clinician Janette Bullock RN June 06, 2024 2:13 PM [facility]04-28-2025 Miscellaneous Notes* Telephone Encounter - [...] Department Center 11/03/2024 2:50 PM SCREEN MAMMO [facility] WSTR RDXWS Martin Bullock 05/23/2025 10:30 AM Sherly Ng APRN.CNP OBGYWM Martin Bullock Appointment scheduled: No follow-up visit currently scheduled. Action taken: Refill request routed to clinician Janette Bullock RN June 06, 2024 2:13 PM [facility] Instructions* Patient Instructions* Sherly Ng APRN.CNP - 05/20/2024 4:36 PM EDT Silicone based lubricant documented in this encounterSouthview [facility] Center04-11-2025 NoteHNO ID: [id number] Author: SHERLY NG APRN.CNP Service: ? Author Type: Nurse Practitioner Type: Progress Notes Filed: 05/20/2024 19:27 Note Text: Surgical Nurse Practitioner offered: Patient declines. Violet is a 38 [...] discussed with the Patient or Patient's Authorized Medical Chief Technician. As applicable, any other physician, advance practice provider, medical student, or other health professional student that will be observing or involved in the sensitive examination for educational or training purposes was discussed with the Patient or Authorized Medical Chief Technician. The Patient or Authorized Medical Chief Technician has agreed to proceed with the sensitive [...] external genitalia normal, normal Bartholin's glands, urethra, Prague's glands, no vulvar lesions, good vaginal support, [...] liver enzymes before refills - PCP at [place] 4) Contraception: hysterectomy. Contraceptive options reviewed and information provided. 5) STD screening: Declined STD check. 6) Follow up one year or sooner as needed Sherly Ng APRN.[facility]04-11-2025 History of Present illness Narrative* Sherly Ng APRN.ADJUNCT PROFESSOR OF ENGLISH - 05/20/2024 4:05 PM EDT Surgical Nurse Practitioner offered: Patient declines. Violet is a 38 [...] discussed with the Patient or Patient's Authorized Medical Chief Technician. As applicable, any other physician, advance practice provider, medical student, or other health professional student that will be observing or involved in the sensitive examination for educational or training purposes was discussed with the Patient or Authorized Medical Chief Technician. The Patient or Authorized Medical Chief Technician has agreed to proceed with the sensitive [...] external genitalia normal, normal Bartholin's glands, urethra, Prague's glands, no vulvar lesions, good vaginal support, [...] Should review liver enzymes before refills - [facility] 4) Contraception: hysterectomy. Contraceptive options reviewed and information provided. 5) STD screening: Declined STD check. 6) Follow up one year or sooner as needed Sherly Ng APRN.ADJUNCT PROFESSOR OF ENGLISH documented in this encounterSouthview Medical Center02-24-2025 Evaluation note* Diagnosis Onset Date [...] sleep apnea) acute April 27, 2024 7:46am [facility] Work Phone: 1(753) 481-269602-24-2025 Evaluation note* Diagnosis Onset Date Resolution Status [...] transaminase level acute June 29, 2024 8:01am VALERA (nonalcoholic steatohepatitis) chronic June 29, 2024 8:01am [facility] Work Phone: 1(866) 830-915402-24-2025 Evaluation note* Diagnosis Onset Date Resolution Status [...] transaminase level acute June 29, 2024 8:01am VALERA (nonalcoholic steatohepatitis) chronic June 29, 2024 8:01am Drug-induced liver injury acute July 19, 2024 12:01pm Elevated liver enzymes acute 2024 12:01pm 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 July 12:01pm [facility] Work Phone: 1(223) 338-450002-24-2025 Evaluation note* Diagnosis Onset Date Resolution Status Admit Date Costochondritis acute April 04, 2024 9:10am Hypersomnolence chronic February 24th, 2025 9:10am Influenza A inactive March 9:10am Chronic leukopenia chronic April 25, 2024 12:56pm Monocytosis chronic April 25, 12:56pm Dysuria acute April 27 7:46am NICA (obstructive sleep apnea) acute April 27, 2024 7:46am Common bile duct dilation acute June 29, 2024 8:01am Elevated alkaline phosphatas e level acute June 29, 2024 8 :01am Elevated transaminase level acute June 29, 2024 8:01am VALERA (nonalcoholic steatohepatitis) chronic June 29, 2024 8:01am Drug-induced liver injury acute July 19, 2024 12:01pm Elevated liver enzymes acute 2024 12:01pm 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 YVES NOTE: Name: Violet Hernandez, 38 y.o. CSN:[id number] PCP: Emily Sanders MD ALL: No Known [...] wheezing or shortnessof breath. 18 g 0 bfssugvljpafcqa-fzwzslmyp-YN 2-30-10 mg/5 mL syrup Take 5 mL [...] and frontal sinus tenderness present. Mouth/Throat: Lips: Estelle. Mouth: Mucous membranes are moist. Pharynx: Uvula [...] for this visit: Influenza A (Primary) - ftacymyoughlado-qsqztaike-CI 2-30-10 mg/5 mL syrup; Take 5 mL [...] Valentine Roth APRN, YUNIOR Advanced Practice Provider [facility] Please note: While the patient may or may not have received printed discharge paperwork, all relevant medical findings, test results, and treatment details are accessible through the electronic medical record system. The patient is encouraged to review their chart via the patient portal for comprehensive information and follow-up instructions. documented in this [facility] Work Phone: 1(747) 692-125601-02-2025 NoteHNO ID: [id number] Author: LEO BARNETT MD Service: ? Author [...] with Dr. Boogie. Pt doing well s/p [facility] BSO. OB History T0 L0 SAB0 IAB0 Ectopic0 Multiple0 Live Births0 Earth Science Technical Officer History LMP: 06/09/2022 (Within Days), Hysterectomy Age at Menarche: Age at First : Age at Menopause: Earth Science Technical Officer History Comments: Sexual Activity: Yes; Male Contraception: [...] which included preparing to see the patient, onzm-zu-pwmo patient care, completing clinical documentation, obtaining and/or reviewing separately obtained history, performing a medically appropriate examination, and counseling and educating the patient/family/caregiver. Leo Abdi [facility]01-02-2025 History of Present illness Narrative* Leo [...] with Dr. Boogie. Pt doing well s/p [facility] BSO. OB History T0 L0 SAB0 IAB0 Ectopic0 Multiple0 Live Births0 Earth Science Technical Officer History LMP: 06/09/2022 (Within Days), Hysterectomy Age at Menarche: Age at First : Age at Menopause: Earth Science Technical Officer History Comments: Sexual Activity: Yes; Male Contraception: Pill PAST MEDICAL HISTORY Diagnosis Date Anxiety Depression Leukopenia Mitral prolapse Premature ovarian failure PAST SURGICAL HISTORY Procedure Laterality Date BONE MARROW BIOPSY x 2 COLONOSCOPY SCREENING 11/05/2023 ORAL SURGERY PROCEDURE [facility] W/T/O 250 G OR LESS 11/10/2023 [...] which included preparing to see the patient, bjka-zb-niho patient care, completing clinical documentation, obtaining and/or reviewing separately obtained history, performing a medically appropriate examination, and counseling and educating the patient/family/caregiver. Leo Abdi MD documented in this encounterSouthview Medical Center12-06-2024 NoteHNO ID: [id number] Author: LEE KATZ, DO Service: ? Author Type: Physician Type: Progress Notes Filed: 01/19/2024 13:58 Note Text: [facility] [place] SECTION FOR MINIMALLY INVASIVE GYNECOLOGIC SURGERY OUTPATIENT [...] at her post op appointment with the ELECTRONICS ENGINEERING TECHNICIAN on 12/17/2023 was told on her Vaginal [...] questions answered and pt agrees with plan eLe Katz [facility]12-06-2024 History of Present illness Narrative* Lee Katz, DO - 01/15/2024 1:48 PM EST Images from the original note were not included. [facility] [place] SECTION FOR MINIMALLY INVASIVE GYNECOLOGIC SURGERY OUTPATIENT [...] at her post op appointment with the ELECTRONICS ENGINEERING TECHNICIAN on 12/17/2023 was told on her Vaginal [...] plan Lee Katz DO documented in this encounterSouthview Medical Center11-21-2024 Evaluation note* Diagnosis Onset Date Resolution Status Admit Date VALERA (nonalcoholic steatohepatitis) chronic December 31, 2023 3:56pm Osteopenia chronic December 31, 2023 3:56pm Costochondritis acute April 04, 2024 9:10am Hypersomnolence chronic April 04, 2024 9:10am Influenza A inactive March 9:10am [facility] Work Phone: 1(370) 111-359411-07-2024 NoteHNO ID: [id number] Author: YENNIFER TOMAS APRN.DANA Service: ? Author Type: Nurse Practitioner Type: Progress Notes Filed: 12/17/2023 15:51 Note Text: [facility] [place] Department of Benign Gynecology [facility] PATIENT NAME: Violet Hernandez PCP: Emily Sanders [...] L0 SAB0 IAB0 Ectopic0 Multiple0 Live Births0 Earth Science Technical Officer History LMP: 06/09/2022 (Within Days), Hysterectomy Age at Menarche: Age at First : Age at Menopause: Earth Science Technical Officer History Comments: Sexual Activity: Yes; Male Contraception: Pill PAST MEDICAL HISTORY Diagnosis Date Anxiety Depression Leukopenia Mitral prolapse Premature ovarian failure PAST SURGICAL HISTORY Procedure Laterality Date BONE MARROW BIOPSY x 2 COLONOSCOPY SCREENING 11/05/2023 ORAL SURGERY PROCEDURE [facility] W/T/O 250 G OR LESS 11/10/2023 PHYSICAL EXAM: The sensitive examination was discussed with the Patient or Patient's Authorized Medical Chief Technician. As applicable, any other physician, advance practice provider, medical student, or other health professional student that will be observing or involved in the sensitive examination for educational or training purposes was discussed with the Patient or Authorized Medical Chief Technician. The Patient or Authorized Medical Chief Technician has agreed to proceed with the sensitive examination. (Sensitive examination includes inspection and/or palpation of the breasts, pelvis, prostate and anorectal regions) Surgical Nurse Practitioner offered: Patient accepts, visit chaperoned by Pete [...] Keep upcoming appointment with Dr. Mikie Tomas APRN.ADJUNCT PROFESSOR OF ENGLISH December 17, 2023 3:14 [facility]11-07-2024 History of Present illness Narrative* Yennifer Tomas APRN.ADJUNCT PROFESSOR OF ENGLISH - 12/17/2023 3:14 PM EST Images from the original note were not included. [facility] [place] Department of Benign Gynecology [facility] PATIENT NAME: Violet Hernandez PCP: Emily Sanders [...] L0 SAB0 IAB0 Ectopic0 Multiple0 Live Births0 Earth Science Technical Officer History LMP: 06/09/2022 (Within Days), Hysterectomy Age at Menarche: Age at First : Age at Menopause: Earth Science Technical Officer History Comments: Sexual Activity: Yes; Male Contraception: Pill PAST MEDICAL HISTORY Diagnosis Date Anxiety Depression Leukopenia Mitral prolapse Premature ovarian failure PAST SURGICAL HISTORY Procedure Laterality Date BONE MARROW BIOPSY x 2 COLONOSCOPY SCREENING 11/05/2023 ORAL SURGERY PROCEDURE [facility] W/T/O 250 G OR LESS 11/10/2023 PHYSICAL EXAM: The sensitive examination was discussed with the Patient or Patient's Authorized Medical Chief Technician. Asapplicable, any other physician, advance practice provider, medical student, or other health professional student that will be observing or involved in the sensitive examination for educational or training purposes was discussed with the Patient or Authorized Medical Chief Technician. The Patient or Authorized Medical Chief Technician has agreed to proceed with the sensitive examination. (Sensitive examination includes inspection and/or palpation of the breasts, pelvis, prostate and anorectal regions) Surgical Nurse Practitioner offered: Patient accepts, visit chaperoned by Pete [...] Keep upcoming appointment with Dr. Mikie Tomas APRN.ADJUNCT PROFESSOR OF ENGLISH December 17, 2023 3:14 PM * Pete Gill MA - 12/17/2023 3:09 PM EST Exam chaperoned by Pete Gill MA December 17, 2023 3:10 PM documented in this encounterSouthview Medical Center11-07-2024 NoteHNO ID: [id number] Author: PETE GILL MA Service: ? Author Type: Die Stamper Type: Progress Notes Filed: 12/17/2023 15:51 Note Text: Exam chaperoned by Pete Gill MA December 17, 2023 3:10 [facility]10-29-2024 Telephone encounter Note* Telephone Encounter - Steph Randall RN - 12/08/2023 11:39 AM EDT Pt missed her vaginal cuff check. Needs to reschedule. Steph Randall RN [facility]10-29-2024 Miscellaneous Notes* Telephone Encounter - Steph Randall RN - 12/08/2023 11:39 AM EDT Pt missed her vaginal cuff check. Needs to reschedule. Steph Randall RN documented in this encounterSouthview Medical Center10-27-2024 Telephone encounter Note * Telephone Encounter - Lee Beltre MD - 12/06/2023 2:36 PM EDT Telephone Encounter Violet Matt Hernandez [id number] Provider: Dr. Katz Surgery: TLH, BSO, cysto [...] Ms. Hernandez a follow up appointment with [facility] this week. Counseled electronic integrated systems mechanic-back precautions including persistent or worsening of symptoms. [...] decide to go the ED. [facility] Weston. Lee Beltre MD 12/06/23 2:36 PM [facility] Work Phone: [phone]) 895-505410-27-2024 Miscellaneous Notes* Telephone Encounter - Lee Beltre MD - 12/06/2023 2:36 PM EDT Telephone Encounter Violet Gutierrez David [id number] Provider: Dr. Katz Surgery: TLH, BSO, cysto [...] Ms. Hernandez a follow up appointment with [facility] this week. Counseled electronic integrated systems mechanic-back precautions including persistent or worsening of symptoms. [...] MD 12/06/23 2:36 PM documented in this encounterSouthview Medical Center10-15-2024 NoteHNO ID: [id number] Author: YENNIFER TOMAS APRN.ADJUNCT PROFESSOR OF ENGLISH Service: ? Author Type: Nurse Practitioner Type: Progress Notes Filed: 11/24/2023 16:03 Note Text: [facility] [place] Department of Minimally Invasive RICE DRIER OPERATOR Surgery [facility] PATIENT NAME: Violet Hernandez DATE: 11/24/2023 Patient Name and verified: Yes Patient Location: [place] This Virtual Visit was completed using My Chart Zoom platform. I have communicated my name and active licensure. The patient's identity and physical location were verified at the time of this visit. Either the patient or their legal sales and service representative has been informed of the risks and benefits of -- and alternatives to -- treatment through a remote evaluation and consents to proceed with the evaluation remotely. Chief Complaint CC/REASON FOR VISIT: Post Op History of Present Illness: Violet is a 38 year old who presents for a post op Distance Health visit. SURGERY AND DATE: 11/10/2023 [facility] with Dr. Katz PATHOLOGY: FINAL DIAGNOSIS [...] mouth once daily. Start oral estrogen. Send Sometricst message if vaginal issue is not resolved. May benefit from Vaginal estrogen as well 1) Discussed results of pathology and implications with patient. 2) Postop restrictions and wound care reviewed. 3) Keep follow up with Dr. Katz on 01/15/2024. Appointments for Next 60 Days Date Time Provider Location Dept Phone 11/24/2023 4:00 PM YENNIFER TOMAS [facility] [phone] 01/15/2024 1:45 PM LEE KATZ [place] [phone] SIGNATURE: Yennifer Tomas APRN.CNP PAGER: [phone] Health [facility]10-15-2024 History of Present illness Narrative* Yennifer Tomas APRN.CNP - 11/24/2023 3:46 PM EDT Images from the original note were not included. [facility] [place] Department of Minimally Invasive RICE DRIER OPERATOR Surgery [facility] PATIENT NAME: Violet Hernandez DATE: 11/24/2023 Patient Name and verified: Yes Patient Location: [place] This Virtual Visit was completed using My Chart Zoom platform. I have communicated my name and active licensure. The patient's identity and physical location wereverified at the time of this visit. Either the patient or their legal sales and service representative has been informed of the risks and benefits of -- and alternatives to -- treatment through a remote evaluation andconsents to proceed with the evaluation remotely. Chief Complaint CC/REASON FOR VISIT: Post Op History of Present Illness: Violet is a 38 year old who presents for a post op [facility] visit. SURGERY & DATE: 11/10/2023 [facility] with Dr. Katz PATHOLOGY: FINAL DIAGNOSIS [...] mouth once daily. Start oral estrogen. Send Orthogem message if vaginal issue is not resolved. May benefit from Vaginal estrogen as well 1) Discussed results of pathology and implications with patient. 2) Postop restrictions and wound care reviewed. 3) Keep follow up with Dr. Katz on 01/15/2024. Appointments for Next 60 Days Date Time Provider Location Dept Phone 11/24/2023 4:00 PM YENNIFER TOMAS [facility] [phone] 01/15/2024 1:45 PM LEE KATZ [facility] [phone] SIGNATURE: Yennifer Tomas APRN.CNP PAGER: [phone] documented in this encounterSouthview Medical Center10-04-2024 Telephone encounter Note * Telephone [...] if she experiences increased pain. Patient has energy attorney electronic integrated systems mechanic numberand will call with any further concerns. Tracey Fowler RN [facility]10-04-2024 Miscellaneous Notes* Telephone Encounter - [...] if she experiences increased pain. Patient has energy attorney electronic integrated systems mechanic numberand will call with any further concerns. Tracey Fowler RN * Telephone Encounter - Valentine Crump - 11/13/2023 8:17 AM EDT Pt post hysto and having sharp pains. Wants to know if that's normal. Belly button oozing clear fluid. Please advise [phone] documented in this encounterSouthview Medical Center10-04-2024 Telephone encounter Note * Telephone Encounter - Valentine Crump - 11/13/2023 8:17 AM EDT Pt post hysto and having sharp pains. Wants to know if that's normal. Belly button oozing clear fluid. Please advise [phone] [facility]10-03-20[facility] Telephone encounter Note* Telephone Encounter [...] in their postop instructions After hours fellow electronic integrated systems mechanic [phone] Office number [phone] (M-F, 8-4:30) Patient advised to call 911 [...] Department Center 11/24/2023 4:00 PM Yennifer Tomas APRN.ADJUNCT PROFESSOR OF ENGLISH LAMBERT Md Manju [facility] 01/15/2024 1:45 PM Lee Katz DO GMROBERTO [facility] 05/20/2024 4:00 PM Sherly Ng APRN.DANA [place] Patient questions/concerns: NONE [facility]10-03-2024 Miscellaneous Notes* Telephone Encounter - Julia Preez RN - 11/12/2023 8:46 AM EDT Images [...] in their postop instructions After hours fellow electronic integrated systems mechanic [phone] Office number [phone] (M-F, 8-4:30) Patient advised to call 911 [...] Center 11/24/2023 4:00 PM Yennifer Tomas APRN.CNP [facility] 01/15/2024 1:45 PM Lee Katz DO GMIGFV [facility] 05/20/2024 4:00 PM Sherly Ng APRN.CNP [facility] [place] Patient questions/concerns: NONE documented in this encounterSouthview Medical Center10-02-2024 Telephone encounter Note * Telephone Encounter - Jeanie Yu APRN.CNP - 11/11/2023 11:51 AM EDT Is she having any symptoms that she needs the HRT now? It looks like she has been in POI since 2010. If no symptoms, she can wait to discuss at her postop appt or with her primary energy attorney. Jeanie Yu APRN.CNP [facility]10-02-2024 Miscellaneous Notes* Telephone Encounter - Jeanie Yu APRN.CNP - 11/11/2023 11:51 AM EDT Is she having any symptoms that she needs the HRT now? It looks like she has been in POI since 2010. If no symptoms, she can wait to discuss at her postop appt or with her primary energy attorney. Jeanie Yu APRN.ADJUNCT PROFESSOR OF ENGLISH * Telephone Encounter - Janice Weeks RN [...] 11/23/23 with Yennifer Tomas CNP. Routing to [facility] ELECTRONICS ENGINEERING TECHNICIAN Pool. Janice Weeks RN November 11, 2023 [...] department: Visit date not found 11/24/2023 in RICE DRIER OPERATOR [facility] MAIN with YENNIFER TOMAS - 2 WEEK POST OP 01/15/2024 in RICE DRIER OPERATOR MIGS [facility] with LEE KATZ - 6 WEEK POST OP 05/20/2024 in KELP GATHERER [facility] with SHERLY NG - annual exam Thanks Evelyn documented in this encounterSouthview Medical Center10-02-2024 Telephone encounter Note * Telephone [...] 11/23/23 with Yennifer Tomas CNP. Routing to [facility] ELECTRONICS ENGINEERING TECHNICIAN Pool. Janice Weeks RN November 11, 2023 11:23 AM [facility]10-02-2024 Telephone encounter Note* Telephone Encounter [...] department: Visit date not found 11/24/2023 in RICE DRIER OPERATOR [facility] MA[facility] with YENNIFER TOMAS - 2 WEEK POST OP 01/15/2024 in RICE DRIER OPERATOR [facility] with LEE KATZ - 6 WEEK POST OP 05/20/2024 in KELP GATHERER [facility] [place] SHERLY NG - annual exam Thanks Evelyn [facility]10-01-2024 NoteHNO ID: [id number] Author: BLAKE QUINTERO APRN.ELECTRICAL INSTALLER Service: ? Author Type: Nurse Primer Assembler Type: Anesthesia Procedure Notes Filed: 11/10/2023 14:27 [...] Imaging Guidance Used: No SIGNATURE: Blake Quintero APRN.ELECTRICAL INSTALLER PATIENT NAME: Violet Hernandez DATE: November 10, 2023 TIME: 2:27 PM CSN: [id number] Health [facility]rbana Hospital10-01-2024 NoteHNO ID: [id number] Author: BLAKE QUINTERO APRN.ELECTRICAL INSTALLER Service: ? Author Type: Nurse Primer Assembler Type: Anesthesia Procedure Notes Filed: 11/10/2023 14:26 Note Text: ANESTHESIOLOGY PROCEDURE NOTE Airway General Information Procedure Start Time/Medication Administration: 11/10/2023 2:11 PM Procedure End Time: 11/10/2023 2:11 PM Patient location during procedure: OR Patient identity confirmed: arm band Staffing ELECTRICAL INSTALLER: Blake Quintero APRN.ELECTRICAL INSTALLER Performed by: GURINDER Indications and Patient Condition Indications for airway management: anesthesia Preoxygenated: yes anesthesia circuit Patient position: sniffing Method: asleep Difficult Mask: No Final Airway Details Final airway type: endotracheal airway Final Endotracheal Airway: ETT Cuffed: yes Successful intubation technique: video laryngoscopy Devices used: Bangbite Endotracheal tube insertion site: oral Blade size: #3 ETT size (mm): 7.0 Measured from: lips Measurement (cm): 19 Placement verified by: capnometry Cormack-Lehane Classification: grade I - full view of glottis Number of attempts at approach: 1 Airway not difficult SIGNATURE: Blake Quintero APRN.ELECTRICAL INSTALLER PATIENT NAME: Violet Hernandez DATE: November 10, 2023 TIME: 2:26 PM CSN: [id number] Health [facility]rbana Hospital09-30-2024 Telephone encounter Note* Telephone Encounter - Ana Cristina Walker LPN - 11/09/2023 12:08 PM EDT Received office visit from Dr. Saenz office. Scanned into [facility] through Onbase scanning. Ana Cristina Walker LPN [facility]09-30-2024 Miscellaneous Notes* Telephone Encounter - Ana Cristina Walker LPN - 11/09/2023 12:08 PM EDT Received office visit from Dr. Saenz office. Scanned into [employer] through Onbase scanning. Ana Cristina Walker LPN * Telephone Encounter - Ana Cristina Walker LPN - 11/06/2023 3:51 PM EDT Called and left message with Dr. Saenz office requesting most recent office visit for upcoming surgery. Ana Cristina Walker LPN * Telephone Encounter - Ana Cristina Walker LPN - 11/06/2023 3:48 PM EDT Received [facility] office visit and hematology office visit. Scanned into [employer] through Onbase scanning. Ana Cristina Walker LPN documented in this encounterSouthview Medical Center09-27-2024 Telephone encounter Note * Telephone Encounter - Ana Cristina Walker LPN - 11/06/2023 3:51 PM EDT Called and left message with Dr. Saenz office requesting most recent office visit for upcoming surgery. Ana Cristina Walker LPN [facility]09-27-2024 Telephone encounter Note* Telephone Encounter - Ana Cristina Walekr LPN - 11/06/2023 3:48 PM EDT [facility]ceived [facility] HOSPITAL office visit and hematology office visit. Scanned into Waze through Onbase scanning. Ana Cristina Walker LPN [facility]09-27-2024 History and physical note* Adeline Jama APRN.DANA - 11/06/2023 1:50 PM EDT Images from [...] 11.00 k/uL Final 10/06/23 Dr. Braun, Hematology [place] Thrombocytopenia (HCC) Assessment: Platelet Count Date Value [...] asymptomatic, following cardiology 11/03/22 Javi Rivero CNP, [facility] BCC (basal cell carcinoma of [...] large neck Non-male patient STOP-Bang Score: 1 [id number] Score: Age: <65 Sex: female CHF history: No Hypertension history: No Stroke/TIA/thromboembolism history: No Vascular disease history: No Diabetes history: No [id number] Score: 1 ARISCAT Score: Age: <=50 Preoperative [...] for surgery, pending [see comment]. Labs-reviewed, woodrow sherman- CONSULTS: Patient does not require consults for [...] fevers. Neurological: No history of TIA's, stroke, SURFACER OPERATOR tumor, impaired sensorium, hemiplegia, paraplegia orquadraplegia. No [...] congenital heart defect, DVT/PE, hyperlipidemia, hypertension, recent ME, PVD, open heart surgery and valve surgery. GI: +IBS vs microscopic colitis, s/p colonoscopy yesterday at [facility] Positive for: liver disease (fatty liver) : No history of dysuria, frequency or incontinence, stones or chronic kidney disease. No difficulty urinating, nocturia > 1 time per night or hematuria. RICE DRIER OPERATOR: See HPI. Endocrine: No history of diabetes. [...] or any previous visit (from the past 82633 hour(s)). Instructions Given to Patient: Instructions located in the after visit summary. Patient given verbal and written preop instructions and voices comprehension and compliance. SIGNATURE: Adeline Jama APRN.CNP PATIENT NAME: Violet Hernandez DATE: November 06, 2023 TIME: 1:50 PM PAGER/CONTACT #: [facility]09-27-2024 History and physical note* Adeline [...] asymptomatic, following cardiology 11/03/22 Javi Rivero CNP, [facility] BCC (basal cell carcinoma of [...] large neck Non-male patient STOP-Bang Score: 1 [id number] Score: Age: <65 Sex: female CHF history: No Hypertension history: No Stroke/TIA/thromboembolism history: No Vascular disease history: No Diabetes history: No [id number] Score: 1 ARISCAT Score: Age: <=50 Preoperative [...] for surgery, pending [see comment]. Labs-reviewed, woodrow sherman- CONSULTS: Patient does not require consults for [...] fevers. Neurological: No history of TIA's, stroke, SURFACER OPERATOR tumor, impaired sensorium, hemiplegia, paraplegia orquadraplegia. No [...] congenital heart defect, DVT/PE, hyperlipidemia, hypertension, recent ME, PVD, open heart surgery and valve surgery. GI: +IBS vs microscopic colitis, s/p colonoscopy yesterday at [facility] Positive for: liver disease (fatty liver) : No history of dysuria, frequency or incontinence, stones or chronic kidney disease. No difficulty urinating, nocturia > 1 time per night or hematuria. RICE DRIER OPERATOR: See HPI. Endocrine: No history of diabetes. [...] or any previous visit (from the past 47772 hour(s)). Instructions Given to Patient: Instructions located in the after visit summary. Patient given verbal and written preop instructions and voices comprehension and compliance. SIGNATURE: Adeline Jama APRN.CNP PATIENT NAME: Violet Hernandez DATE: November 06, 2023 TIME: 1:50 PM PAGER/CONTACT #: documented in this encounter[facility] Instructions* Patient Instructions* Adeline Jama APRN.CNP - 11/06/2023 1:42 PM EDT Images from the original note were not included. [facility] PATIENT PREOPERATIVE INSTRUCTIONS No ref. provider found has scheduled you for your procedure at this surgery center: [facility] [place] Scheduling Office: [phone] --[address] [place] [address]. Please read below carefully for your personalized [...] Procedures: - YOU MUST HAVE A RESPONSIBLE DOG BATHER TAKE YOU HOME. A MEAT SOAKER OR CHOCOLATE FINISHER CANNOT BE MADE A RESPONSIBLE DOG BATHER. - We recommend that a responsible person [...] call the Thursday before. Your surgeon s operating room scheduler will tell you what time to call the office. - If you have not reached the departmental operating room scheduler by 5 P.M., call [phone] after 5 P.M. the day before your surgery. Please be aware that emergency situations arise, which may delay or change your surgical time. If this happens, we will notify you as soon as possible and regret any inconvenience. If you already have an Advance Directive, please fax a copy to [phone] or email to for it to be [...] day. Adeline Jama APRN.CNP documented in this encounterSouth[facility] Center[facility]24 Instructions* Patient Instructions* Shar Austin LPN - 2023 11:13 AM EDT Images from the original note were not included. MINIMALLY INVASIVE GYNECOLOGIC SURGERY (MIGS)/BENIGN GYNECOLOGY CONTACTS: Dr. Lee Katz Surgery Scheduling Office: Call the day before surgery after 2pm for your surgery arrival time After hours phone number: or toll free Ask the tag meter operator to page the energy attorney electronic integrated systems mechanic.' Business hours are Thursday - Thursday from [...] vitamin E, herbal medications, diet pills, and kglh-baq-ckmuhod medications. Tylenol (acetaminophen) is okay. I will not wear jewelry, body piercing(s), makeup, nail romansh, hairpins, or contacts on the day ofsurgery. [...] my surgeon. Discuss medication changes with your molten iron pourer or primary care physician as well. If I stopped taking my blood-thinning medication, I will ask the surgeon when to resume taking it. If I am an outpatient, a responsible person will drive me home and it was suggested that someone stay with me for 24 hours. I understand that a business office manager or cabdriver is NOT a responsible caregiver. [...] surgical guide book can be found at: [email or web address] The address is [address] [place] [address]/[place] [address] INFECTION PREVENTION Please notify your doctor if [...] Your Surgical Guide Book for more information. [facility] TEAM At the [facility], we have a multidisciplinary team of caregivers that includes fellows, residents, nurse practitioners, physician assistants, clinical nurse specialists, nurses, medical assistants, patient care nursing assistants, social workers, hospice case manager and many others. We all have different [...] If you have a sedentary job or feeder worker power unit operator 1-2 weeks before returning to work is [...] to dispose of unused medications at three [facility] locations: [facility] pharmacy, [facility] pharmacy, and the Pharmacy at the [facility] [place] [facility] (inside the parking garage on [...] EMERGENCY DEPARTMENT POST OPERATIVELY, WE RECOMMEND THE [facility] EMERGENCY DEPARTMENT FOR CONTINUITY OF CARE AND THE BEST ACCESS TO ONE OF THE SURGEONS ON OUR TEAM. Address: [address] [place] [address] documented in this encounterSouthview Medical Center09-23-2024 NoteHNO ID: [id number] Author: SHAR AUSTIN LPN Service: ? Author Type: LICENSED NURSE Type: Progress Notes Filed: 2023 13:11 Note Text: DATE OF SERVICE: 2023 PROBLEM: Violet M Catinaena presents for pre-op teaching. PRE-OP DIAGNOSIS: intramural and subserous leiomyoma of uterus and pelvic pain in female SCHEDULED SURGERY AND DATE: 11-10-23 [facility] LAPAROSCOPIC HYSTERECTOMY TOTAL FOR UTERUS 250 G [...] patient have an advanced directive: No Does [facility] have a copy of the [...] prescribed by anesthesia, internal medicine, surgeon, or ELECTRONICS ENGINEERING TECHNICIAN Stop NSAIDs, Aspirin (ASA), vitamins, herbal supplements, [...] jewelry, body piercing, makeup, contacts, lotions, nail romansh on fingers, or anything in hair on arrival to surgery Wear low healed shoes and loose fitting clothing Leave all valuables at home or with a family member Directions to [facility] Parking/parking validation on the day [...] if after hours patient instructed to call tag meter operator and ask for electronic integrated systems mechanic energy attorney resident. OCHOA program offered to patient: Yes Additional teaching as indicated by patient/family learning needs. PATIENT LEARNING EVALUATION AND FOLLOW UP PLAN: Patient and/or family express understanding of upcoming surgery, pre-operative preparation, the operative process, and post-operative instructions. Follow up plan: Patient instructed to call with any further issues Patient has a post-op appointment scheduled: [id number] at 4pm with Yennifer Tomas (video) Referral (recommentation): None Educator: Shar Austin LPN [facility] History of Present illness Narrative* Shar Austin LPN - 2023 11:12 AM EDT DATE OF SERVICE: 2023 PROBLEM: Violet Hernandez presents for pre-op teaching. PRE-OP DIAGNOSIS: intramural and subserous leiomyoma of uterus and pelvic pain in female SCHEDULED SURGERY AND DATE: 11-10-23 [facility] LAPAROSCOPIC HYSTERECTOMY TOTAL FOR UTERUS 250 G [...] patient have an advanced directive: No Does [facility] have a copy of the [...] prescribed by anesthesia, internal medicine, surgeon, or ELECTRONICS ENGINEERING TECHNICIAN Stop NSAIDs, Aspirin (ASA), vitamins, herbal supplements, [...] jewelry, body piercing, makeup, contacts, lotions, nail romansh on fingers, or anything in hair on arrival to surgery Wear low healed shoes and loose fitting clothing Leave all valuables at home or with a family member Directions to [facility] Parking/parking validation on the day [...] patient, if after hours patientinstructed to call tag meter operator and ask for electronic integrated systems mechanic energy attorney resident. OCHOA program offered to patient: Yes Additional teaching as indicated by patient/family learning needs. PATIENT LEARNING EVALUATION & FOLLOW UP PLAN: Patient and/or family express understanding of upcoming surgery, pre-operative preparation, the operative process, and post-operative instructions. Follow up plan: Patient instructed to call with any further issues Patient has a post-op appointment scheduled: [id number] at 4pm with Yennifer Tomas (video) Referral (recommentation): None Educator: Shar Austin LPN [facility] [place] documented in this encounterSouthview Medical Center09-20-2024 Telephone encounter Note * Telephone Encounter - Toya Lopes - 10/30/2023 3:19 PM EDT Pt wants a letter sent via [employer]. I am happy to get that drafted up but what do you think in terms of time off can she return at 4 weeks with restrictions? [facility]09-20-2024 Miscellaneous Notes* Telephone Encounter - Toya Lopes - 10/30/2023 3:19 PM EDT Pt wants a letter sent via [employer]. I am happy to get that drafted [...] advise with return call. documented in this encounterSouthview Medical Center09-20-2024 Telephone encounter Note * Telephone Encounter - Sonia Lopez RN - 10/30/2023 12:04 PM EDT Attempted to call patient. Left voicemail. Instructed patient to call office back. Sonia Lopez RN October 30, 2023 12:05 PM [facility]09-19-2024 Telephone encounter Note* Telephone Encounter - Renata Booker - 10/29/2023 8:58 AM EDT Patient is having surgery 11/10/[address] Katz and is requesting a letter to her employer stating x number of weeks time off. Patient does not qualify for FMLA. Please advise with return call. [facility]09-18-2024 Telephone encounter Note* Telephone Encounter - Jeanie Yu APRN.CNP - 10/28/2023 12:38 PM EDT Encounter Diagnosis ICD-10-CM 1. Preop testing Z01.818 COMPLETE BLOOD COUNT AND DIFFERENTIAL TYPE AND SCREEN,30 DAY [facility]09-18-2024 Miscellaneous Notes* Telephone Encounter - [...] Please advise. Thank you documented in this encounterSouthview Medical Center09-18-2024 Telephone encounter Note * Telephone [...] that can accommodate this Lakeshia Fox RN [facility]09-18-2024 Telephone encounter Note* Telephone Encounter [...] they would need. Please advise. Thank you [facility]09-16-2024 Instructions* Patient Instructions* Lee Katz, - 10/26/2023 5:49 PM EDT Images from the original note were not included. Please visit the following website for the [facility] surgery guide. [email or web address] MINIMALLY INVASIVE GYNECOLOGIC SURGERY (MIGS)/BENIGN GYNECOLOGY CONTACTS: Surgeons: Dr. Lee Katz Dr. Anne Marie Aguilera Dr. Angélica Cerrato Dr. Zuleyma Morales Dr. Denzel Perez Dr. Joleen Calderon [place]: Dr. Naina Goncalves [phone] Dr. Adriano Oviedo [phone] Dr. Bianca Coronado [phone] Nurse Practitioners: Jeanie Yu, HYDROBLASTER.ADJUNCT PROFESSOR OF ENGLISH Maria E Marcial, HYDROBLASTER.ADJUNCT PROFESSOR OF ENGLISH Cate Carter, HYDROBLASTER.ADJUNCT PROFESSOR OF ENGLISH Stephanie Morrison, HYDROBLASTER.ADJUNCT PROFESSOR OF ENGLISH Zuleyka Kovacs, HYDROBLASTER, ADJUNCT PROFESSOR OF ENGLISH Surgery Scheduling Office: Call the day before surgery after 2pm for your surgery arrival time After hours phone number: or toll free Ask the tag meter operator to page the energy attorney electronic integrated systems mechanic.' Business hours are Thursday - Thursday from 8:00am - 4:30pm. We are closed on weekends and major holidays. Surgery Locations: [place] 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 Address: [address] [place] [address] documented in this encounterSouthview Medical Center09-16-2024 History of Present illness Narrative* Lee Katz DO - 10/26/2023 9:30 AM EDT Images from the original note were not included. [facility] [place] SECTION FOR MINIMALLY INVASIVE GYNECOLOGIC SURGERY OUTPATIENT VISIT DATE 10/26/2023 OUTPATIENT VISIT TYPE NEW PRIMARY CARE PHYSICIAN: Emily Sanders ([place]) [address] [place] [address] REFERRING PHYSICIAN: Leo Barnett Consultation requested by [...] free fluid is present. 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 frwmifs-yafiskjre-auaeccx D3 500 mg(1,250mg) -200 unit per tablet [...] POI (dx in 2010 by JOSE in [place]), can perform a BSO at the time [...] routine bone density scans and with primary Electrical Controls Assembler for continuedhormonal replacement following surgery. Written and verbal health teaching given to patient, patient verbalizes understanding and agrees with treatment plan. Lee Katz DO documented in this encounterSouthview Medical Center09-16-2024 NoteHNO ID: [id number] Author: LEE KATZ DO Service: ? Author Type: Physician Type: Progress Notes Filed: 10/26/2023 17:49 Note Text: [facility] [place] SECTION FOR MINIMALLY INVASIVE GYNECOLOGIC SURGERY OUTPATIENT VISIT DATE 10/26/2023 OUTPATIENT VISIT TYPE NEW PRIMARY CARE PHYSICIAN: Emily Sanders ([facility]) [address] [facility] [place] [address] REFERRING PHYSICIAN: Leo Barnett Consultation requested by [...] free fluid is present. 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 nxhtcip-qydnwtldq-mzrfyrr D3 500 mg(1,250mg) -200 unit per tablet [...] pain, nausea, vomiting, bloody (more content not included)...[facility]07-08-2024 Telephone encounter Note* Telephone Encounter - Lakeshia Fox RN - 08/17/2023 9:49 AM EDT Images from the original note were not included. Called patient verified name and Relayed message below Patient understood and was thankful for the call Lakeshia Fox RN Lee Katz DO [place] A81 Nurse Orrojz24 minutes ago (9:30 AM) MB Yes. Pls tell her yes. [facility]07-08-2024 Miscellaneous Notes* Telephone Encounter - Lakeshia Fox RN - 08/17/2023 9:49 AM EDT Images from the original note were not included. Called patient verified name and Relayed message below Patient understood and was thankful for the call Lakeshia Fox RN Lee Katz, DO [place] A81 Nurse [place]07 minutes ago (9:30 AM) MB Yes. Pls [...] am concerned with performing Laparoscopic procedure in [place] as morcellation and removal of uterus and closure of cuff would be difficult due to limited vaginal access. I would recommend consultation with [facility] for Laparoscopic morcellation. Pt agreeable to this plan. Iwill send chart to Dr. Katz in [place]. Medical Decision Making: Problems: Moderate: 1+ chronic illnesses with change Risk: High: Decision on elective major surgery w/ risk factors Medical Decision Making Level: 4 - Moderate Leo Abdi MD Will route to Dr. Katz to respond. Ok to send a mychart update to pt. documented in this encounterCleveland [id number] Telephone encounter Note * Telephone Encounter - [...] am concerned with performing Laparoscopic procedure in [place] as morcellation and removal of uterus and closure of cuff would be difficult due to limited vaginal access. I would recommend consultation with [facility] for Laparoscopic morcellation. Pt agreeable to this plan. Iwill send chart to Dr. Katz in [place]. Medical Decision Making: Problems: Moderate: 1+ chronic illnesses with change Risk: High: Decision on elective major surgery w/ risk factors Medical Decision Making Level: 4 - Moderate Leo Abdi MD Will route to Dr. Katz to respond. Ok to send a Fear Huntershart update to pt. [facility]07-05-2024 Telephone encounter Note* Telephone Encounter - Lee Jama - 08/14/2023 8:09 AM EDT Patient called into the office on 08/14/2023 and would like to speak to Dr. Byrnes nurse in regards to her up and coming appointment with Dr. Katz. Patient had some clinical questions in regards to hysterectomy. Please call patient at [phone]. Thanks Lee Jama [facility]07-05-2024 Miscellaneous Notes* Telephone Encounter - Lee Jama - 08/14/2023 8:09 AM EDT Patient called into the office on 08/14/2023 and would like to speak to Dr. Byrnes nurse in regards to her up and coming appointment with Dr. Katz. Patient had some clinical questions in regards to hysterectomy. Please call patient at [phone]. Thanks Lee Jama documented in this encounterSouthview Medical Center07-03-2024 NoteHNO ID: [id number] Author: LEO BARNETT MD Service: ? Author Type: Physician Type: Progress Notes Filed: 08/12/2023 13:13 Note Text: Surgical Nurse Practitioner offered: Patient declines. Violet Hernandez is a [...] L0 SAB0 IAB0 Ectopic0 Multiple0 Live Births0 Earth Science Technical Officer History LMP: 06/09/2022 (Within Days), Drug Induced Amenorrhea Age at Menarche: Age at First : Age at Menopause: Earth Science Technical Officer History Comments: Sexual Activity: Yes; Male Contraception: [...] chew 1 tablet by oral route daily ftfnajj-ohfxqrywp-ezixvsc D3 500 mg(1,250mg) -200 unit per tablet [...] external genitalia normal, normal Bartholin's glands, urethra, Prague's glands, no vulvar lesions, no cervical lesions, [...] am concerned with performing Laparoscopic procedure in [place] as morcellation and removal of uterus and closure of cuff would be difficult due to limited vaginal access. I would recommend consultation with [facility] for Laparoscopic morcellation. Pt agreeable to this plan. I will send chart to Dr. Katz in [place]. Medical Decision Making: Problems: Moderate: 1+ chronic illnesses with change Risk: High: Decision on elective major surgery w/ risk factors Medical Decision Making Level: 4 - Moderate Leo Abdi [facility]07-03-2024 History of Present illness Narrative* Leo Barnett MD - 08/12/2023 11:33 AM EDT Surgical Nurse Practitioner offered: Patient declines. Violet Hernandez is a [...] L0 SAB0 IAB0 Ectopic0 Multiple0 Live Births0 Earth Science Technical Officer History LMP: 06/09/2022 (Within Days), Drug Induced Amenorrhea Age at Menarche: Age at First : Age at Menopause: Earth Science Technical Officer History Comments: Sexual Activity: Yes; Male Contraception: [...] chew 1 tablet by oral route daily hwpnlco-ykqlgzbng-pzfcrgh D3 500 mg(1,250mg) -200 unit per tablet [...] external genitalia normal, normal Bartholin's glands, urethra, Prague's glands, no vulvar lesions, no cervical lesions, [...] am concerned with performing Laparoscopic procedure in [place] as morcellation and removal of uterus and closure of cuff would be difficult due to limited vaginal access. I would recommend consultation with [facility] for Laparoscopic morcellation. Pt agreeable to this plan. Noah send chart to Dr. Katz in [place]. Medical Decision Making: Problems: Moderate: 1+ chronic illnesses with change Risk: High: Decision on elective major surgery w/ risk factors Medical Decision Making Level: 4 - Moderate Leo Abdi MD documented in this encounterSouthview [facility] Center05-23-2024 Telephone encounter Note * Telephone [...] She will schedule appt. Sherly Ng APRN.CNP [facility]05-23-2024 Miscellaneous Notes* Telephone Encounter - [...] get back with her. Sherly Ng APRN.DANA * Telephone Encounter - Jenny Bull RN - 06/30/2023 9:55 AM EDT Patient calling because she saw u/s results on mychart. Asking what she needs to do next. Jenny Bull RN documented in this encounterSouthview Medical Center05-21-2024 Telephone encounter Note * Telephone Encounter - Sherly Ng APRN.CNP - 06/30/2023 1:09 PM EDT I will discuss with one of the physicians before discussing with her so it may be a few days beforeI get back with her. Sherly Ng APRN.DANA [facility]05-21-2024 Telephone encounter Note* Telephone Encounter - Jenny Bull RN - 06/30/2023 9:55 AM EDT Patient calling because she saw u/s results on mychart. Asking what she needs to do next. Jenny Bull RN [facility]04-09-2024 Instructions* Patient Instructions* Sherly Ng APRN.CNP - 05/19/2023 11:21 AM EDT Replens vaginal moisturizer. Revaree hyaluronic acid vaginal suppositories. documented in this encounterSouthview Medical Center04-09-2024 History of Present illness Narrative* Sherly Ng APRN.CNP - 05/19/2023 10:49 AM EDT Violet is [...] L0 SAB0 IAB0 Ectopic0 Multiple0 Live Births0 Earth Science Technical Officer History LMP: 06/09/2022 (Within Days), Drug Induced Amenorrhea Age at Menarche: Age at First : Age at Menopause: Earth Science Technical Officer History Comments: Sexual Activity: Yes; Male Contraception: [...] external genitalia normal, normal Bartholin's glands, urethra, Prague's glands, no vulvar lesions, no cervical lesions, [...] of 7 cm fibroid - PELVIC US [facility]I 4. Surveillance for control, oral contraceptives - ICD9: V25.41, ICD10: Z30.41 - DROSPIRENONE 3 MG-ETHINYL ESTRADIOL 0.03 MG TABLET 5. Uterine leiomyoma, unspecified location - ICD9: 218.9, ICD10: D25.9 - recent CT with incidental finding of 7 cm fibroid. Pelvic US 2020 - 3.7 fundal intramural fibroid - US FEMALE PELVIS TRANSVAG - PELVIC US [facility] 6) STD screening: Declined STD check. 7) Follow up one year or sooner as needed Sherly Ng APRN.ADJUNCT PROFESSOR OF ENGLISH documented in this [facility] Discharge summary Author Umang Matos [facility] February 02, 2023 1:11am Note Date/Time February 01, 2023 11:20pm [facility] Medical Records Department [address] [place] [address] Emergency Department Summary 02/01/23 MR#: [id number] Acct: [id number] Name: VIOLET HERNANDEZ Rep #: [id number] : 1985 37 From: Umang Matos MD [...] standing affects it. She has an appoint withher primary care provider for early February, approximately a week to 2 weeks from now, but she became concerned because of his continued presence. [facility] Medical History Anxiety Anxiety and depression Cervical [...] emergency department were reviewed. She will continue bfue-jfl-htpliej analgesics. I do not feel narcotic pain [...] % (Auto) 49.2 Lymph % (Auto) 28.4 Charles % (Auto) 17.4 H Eos % (Auto) [...] Clarity Cloudy Urine pH 6.5 Ur Specific [place] 1.015 Urine Protein 30 H Urine Glucose [...] Signed: Clark Nunn MD at 0:48 EST , Discharge Plan Triage Chief Complaint: Abd [...] your Primary Care Provider. Call [facility] ([phone]) or report to the closest Emergency Room. Call 911 if necessary. 02/02/23 0111 <Electronically signed by Umang Matos MD> Cosigner Signature (if applicable): CC: Dr. Emily Sanders MD ~ Signed [facility] Work Phone: [phone]) 563-134409-06-2023 History of Present illness Narrative* Negrito Felix APRN.CNP - 10/15/2022 5:13 PM EDT Signed under wrong patient. Requesting for her son to be seen. Explained that I am not able to see her son with her chart and credentials. Instructed to register visit under her son's name. Appt cancelled and fee waived. Negrito Felix APRN.CNP documented in this encounterSouth[facility] Center03-31-2023 History of Present illness Narrative* Sherly Ng APRN.CNP - 05/09/2022 12:49 PM EDT Surgical Nurse Practitioner offered: Patient declines. Violet is a 36 [...] L0 SAB0 IAB0 Ectopic0 Multiple0 Live Births0 Earth Science Technical Officer History LMP: 04/28/2022 (Within Days), Having periods Age at Menarche: Age at First : Age at Menopause: Earth Science Technical Officer History Comments: Sexual Activity: Yes; Male Contraception: [...] external genitalia normal, normal Bartholin's glands, urethra, Prague's glands, no vulvar lesions, no cervical lesions, [...] needed Sherly Ng APRN.DANA documented in this encounterSouth[facility] Center12-09-2022 History of Present illness Narrative* Sherly Ng APRN.DANA - 01/17/2022 11:16 AM EST Surgical Nurse Practitioner offered: Patient declines. Violet Hernandez is a [...] L0 SAB0 IAB0 Ectopic0 Multiple0 Live Births0 Earth Science Technical Officer History LMP: 04/23/2021, Having periods Age at Menarche: Age at First : Age at Menopause: Earth Science Technical Officer History Comments: Sexual Activity: Yes; Male Contraception: [...] mg tablet hydroxyzine HCl 10 mg tablet uurrhhk-ruzavpscm-khfjpvy D3 500 mg(1,250mg) -200 unit per tablet [...] external genitalia normal, normal Bartholin's glands, urethra, Prague's glands, no vulvar lesions, no cervical lesions, [...] results. Follow- up as needed. Sherly Ng APRN.ADJUNCT PROFESSOR OF ENGLISH Medical Decision Making: Problems: Moderate: 1+ chronic illnesses with change Data: Unique test(s) ordered: 2 Medical Decision Making Level: 3 - Low documented in this encounterSouth[facility] Center09-09-2022 History of Present illness Narrative* [...] IV DATA: Not applicable SIGNED BY: RT Harjit(Ike) October 18, 2021 1:54 PM documented in this encounterSouth[facility] Center03-29-2022 History of Present illness Narrative* Leo Monroe MD - 05/07/2021 2:32 PM EDT Violet is a 35 year old who presents for an annual gynecologic exam without complaints. Still has some spotting on week two of pills- minimal. Son turning 9- autistic. H/o premature ovarianfailure- dx in [place] by jose. Menses: cycles every 28 days [...] L0 SAB0 IAB0 Ectopic0 Multiple0 Live Births0 Earth Science Technical Officer History LMP: 04/23/2021, Having periods Age at Menarche: Age at First : Age at Menopause: Earth Science Technical Officer History Comments: Sexual Activity: Yes; Male Contraception: [...] external genitalia normal, normal Bartholin's glands, urethra, Prague's glands, no vulvar lesions, good vaginal support, [...] Infante Ma - 05/07/2021 2:21 PM EDT Surgical Nurse Practitioner offered: Patient declines. documented in this encounterSouthview Medical Center03-10-2022 Miscellaneous Notes* Telephone Encounter - Mago Corbett Pss - 04/18/2021 12:29 PM EST Patient did schedule annual with Dr Monroe for 05/07. She is requesting enough medication to get her to this appointment please. * Telephone Encounter - Jenny Bull RN - 04/18/2021 9:34 AM EST Patient overdue for annual exam. [employer]Geth[employer] message sent to schedule. Pending Prescriptions Disp Refills SPRINTEC (28) 0.25 MG-35 MCG TABLET 84 tablet 0 Sig: Take 1 tablet by mouth once daily BHARGAVI: Yes RX INSTRUCTIONS: Pharmacy initiated this request. No need to notify patient. Jenny Bull RN documented in this encounterSouth[facility] + [facility] note No data available for this section [facility] Evaluation note* Diagnosis Premature ovarian failure Other ovarian dysfunction documented in this encounter [facility]* Diagnosis Encounter for gynecological examination (general) (routine) without abnormal findings- Primary Premature ovarian failure Other ovarian dysfunction Screening for cervical cancer Screening for malignant neoplasm of the cervix Encounter for screening for human papillomavirus (HPV) Special screening examination for human papillomavirus (HPV) documented in this encounter [facility]* Diagnosis Onset Date Resolution Status Chronic leukopenia chronic Lymphopenia acute Chronic leukopenia chronic Encounter for vitamin deficiency screening acute Screening for thyroid disorder acute Anxiety and depression chron ic Chronic neck pain chronic Hypersomnolence chronic Palpitations acute Chest pain, unspecified chronic disease epidemiologist kevyn Nonrheumatic mitral (valve) prolapse chronic [facility] Work Phone: Evaluation note* Diagnosis Onset Date Resolution Status Cervical radiculopathy chron ic Chronic neck pain chronic Degenerative disc disease, cervical acute Pain of cervical spine nonea ctive [facility] Work Phone: Evaluation note* Diagnosis Friable cervix- Primary Other specified noninflammatory disorder of cervix Breakthrough bleeding on OCPs Metrorrhagia Vagina itching Pruritus of genital organs documented in this encounter [facility]* Diagnosis Encounter for gynecological examination (general) (routine) without abnormal findings- Primary Premature ovarian failure Other ovarian dysfunction Breakthrough bleeding on control pills Metrorrhagia documented in this encounter [facility]* Diagnosis APPOINTMENT CANCELLED- Primary documented in this encounter [facility]* Diagnosis Onset Date Resolution Status Palpitations acute Chest pain, unspecified chronic disease epidemiologist kevyn Nonrheumatic mitral (valve) prolapse chronic Cystitis acute [facility] Work Phone: Evaluation note* Diagnosis Onset Date Resolution Status Palpitations acute Chest pain, unspecified chronic disease epidemiologist kevyn Nonrheumatic mitral (valve) prolapse chronic Cystitis acute Cystitis acute [facility] Work Phone: Evaluation note* Diagnosis Encounter for gynecological examination (general) (routine) without abnormal findings- Primary Premature ovarian failure Other ovarian dysfunction Breakthrough bleeding on control pills Metrorrhagia Surveillance for control, oral contraceptives Surveillance of previously prescribed contraceptive pill Uterine leiomyoma, unspecified location Obesity, Class I, BMI 30-34.9 Obesity, unspecified documented in this encounter [facility]* Diagnosis Onset Date Resolution Status Cystitis acute Dysuria acute Chronic leukopenia chronic Lymphopenia acute Chronic leukopenia chronic Hyperglycemia acute Preventative health care acu te Screening for thyroid disorder acute [facility] Work Phone: Evaluation note* Diagnosis Breakthrough bleeding on control pills Metrorrhagia Uterine leiomyoma, unspecified location [facility]* Diagnosis Intramural and subserous leiomyoma of uterus- Primary Pelvic pressure in female Other specified symptom associated with female genital organs Urinary frequency Premature ovarian failure Other ovarian dysfunction documented in this encounter [facility] note* Diagnosis Pelvic pain in female- Primary Unspecified symptom associated with female genital organs Intramural and subserous leiomyoma of uterus Preop examination Preoperative examination, unspecified documented in this encounter [facility] note* Diagnosis Preop testing- Primary Preoperative examination, unspecified Intramural and subserous leiomyoma of uterus Pelvic pain in female Unspecified symptom associated with female genital organs Preop examination Preoperative examination, unspecified documented in this encounter [facility] note* Diagnosis Educational circumstances- Primary Educational circumstance Intramural and subserous leiomyoma of uterus Pelvic pain in female Unspecified symptom associated with female genital organs Preop examination Preoperative examination, unspecified documented in this encounter [facility] note* Diagnosis Pre-operative examination- Primary Preoperative examination, [...] Assessment: hx, asymptomatic, following cardiology 11/03/22 Javi Rivero, DANA, [facility] * Assessment & Plan Note [...] Braun, Hematology Martin documented in this encounter [facility] note* Diagnosis Pre-operative examination- Primary Preoperative examination, unspecified Leukopenia, unspecified type Thrombocytopenia (HCC) Thrombocytopenia, unspecified Fatty liver Other chronic nonalcoholic liver disease Mitral valve prolapse Mitral valve disorders Basal cell carcinoma (BCC), unspecified site Mixed anxiety depressive disorder Dysthymic disorder Obesity, Class I, BMI 30-34.9 Obesity, unspecified Post-operative state- Primary Other postprocedural status documented in this encounter [facility] note* Diagnosis Pre-operative examination- Primary Preoperative examination, [...] Other ovarian dysfunction documented in this encounter [facility] note* Diagnosis Pre-operative examination- Primary Preoperative examination, unspecified Leukopenia, unspecified type Thrombocytopenia (HCC) Thrombocytopenia, unspecified Fatty liver Other chronic nonalcoholic liver disease Mitral valve prolapse Mitral valve disorders Basal cell carcinoma (BCC), unspecified site Mixed anxiety depressive disorder Dysthymic disorder Obesity, Class I, BMI 30-34.9 Obesity, unspecified Vaginal discharge- Primary Leukorrhea, not specified as infective documented in this encounter [facility] note* Diagnosis Pre-operative examination- Primary Preoperative examination, unspecified Leukopenia, unspecified type Thrombocytopenia (HCC) Thrombocytopenia, unspecified Fatty liver Other chronic nonalcoholic liver disease Mitral valve prolapse Mitral valve disorders Basal cell carcinoma (BCC), unspecified site Mixed anxiety depressive disorder Dysthymic disorder Obesity, Class I, BMI 30-34.9 Obesity, unspecified Abnormal uterine bleeding (AUB)- Primary documented in this encounter [facility] note* Diagnosis Pre-operative examination- Primary Preoperative examination, [...] up with GI documented [facility] encounter [facility]* Diagnosis Influenza A- Primary Influenza with other respiratory manifestations Acute cough documented in this encounter [facility] Work Phone: Evaluation note* Diagnosis Pre-operative examination- [...] for breast cancer [facility] Additional Instructions Follow-up with your primary care provider in the next 3 to 5 days. Take all of the antibiotic as directed. Return with increased pain, new or worsening symptoms.[facility] Work Phone: Hospital Discharge instructionsAmbulatory Orders* Dental Location: None Selected [facility] Work Phone: Hospital Discharge instructions No data available for this section [facility] Hospital Discharge instructionsAdditional Instructions Follow-up with your PCP and return for any signs of infection or if you have any other concerns.[facility] Work Phone: Progress note No data available for this section [facility] Reason for referral (narrative)* Diagnostic Procedure Only (Routine) - Pending Review Specialty Diagnoses / Procedures Referred By Contac t Referred To Contact [facility] Diagnoses Breakthrough bleeding on control pills Uterine leiomyoma, unspecified location Procedures PELVIC US WHI US PELVIC NONOBSTETRIC REAL-TIME IMAGE COMPLETE Sherly Ng APRN.CNP [address] [place] [address] [place] [phone] Referral ID Status Reason Start Date Expiration Date Visits Requested Visits Authorized [id number] Pending Review Auto-Generat ed Referral 05/19/2023 05/18/2024 1 1 * Diagnostic Procedure Only (Routine) - Authorized Specialty Diagnoses / Procedures Referred By Ricardo t Referred To Contact [facility] Diagnoses Breakthrough bleeding on control pills Uterine leiomyoma, unspecified location Procedures US FEMALE PELVIS TRANSVAG US TRANSVAGINAL Sherly Ng APRN.CNP [address] [place] [address] [place] [id number] Referral ID Status Reason Start Date Expiration Date Visits Requested Visits Authorized [id number] Authorized Auto-Generat ed Referral 05/19/2023 06/17/2024 1 1 [facility] for referral (narrative)* Diagnostic Procedure Only (Routine) - Authorized Specialty Diagnoses / Procedures Referred By Contac t Referred To Contact [facility] Diagnoses Encounter for screening mammogram for malignant neoplasm of breast Procedures GUSTAVO SCREENING W LOW SCREENING DIGITAL BREAST TOMOSYNTHESIS BI SCREENING MAMMOGRAPHY BI 2-VIEW BREAST INC CAD Leo Barnett MD [address] [place] [address] [facility] [address] [place] [address] Referral ID Status Reason Start Date Expiration Date Visits Requested Visits Authorized [id number] Authorized Auto-Generat ed Referral 02/11/2024 03/12/2025 1 1 [facility] CenterReason for referral (narrative)No reason for referral information availableWOhioHealth [facility] Work Phone: Reason for visit Narrative* Diagnostic Procedure Only (Routine) - Closed Specialty Diagnoses / Procedures Referred By Contnannette t Referred To Contact [facility] Diagnoses Breakthrough bleeding on control pills Uterine leiomyoma, unspecified location Procedures US FEMALE PELVIS TRANSVAG US TRANSVAGINAL Sherly Ng APRN.ADJUNCT PROFESSOR OF ENGLISH [address] [place] [address] [place] [id number] Referral ID Status Reason Start Date Expiration Date V isits Requested Visits Authorized [id number] Closed Auto-Generate d Referral 05/19/2023 06/17/2024 1 1 [facility] Summary Purpose Family History Relationship Condition Age at Onset Recorded Date/T isaac brother Anxiety Unknown Hypertension Unknown sister Anxiety Unknown uncle Anxiety Unknown Myocardial infarction Unknown aunt Anxiety Unknown grandmother Malignant neoplasm of breast Unknown grandfather Myocardial infarction Unknown father Hypertension Unknown Advance Directives Advance Directive Response Recorded Date/ Time Living Will No February 01 10:35pm Power of Body Shop Floorperson No February 01, 2023 10:35pm Advance Directive Response Recorded Date/ Time Living Will No February 01 023 11:35pm Power of Body Shop Floorperson No February 01, 2023 11:35pm Advance Directive Response Recorded Date/ Time Living Will No July 24, 2023 11:15am Power of [employer] Shop Floorperson No July 23 11:15am Living Will No March 31 6:29am Power of Body Shop Floorperson No March 31, 2024 6:29am Living Will No April 03 10:35am Power of Body Shop Floorperson No April 03, 2024 10:35am Advance Directive Response Recorded Date/ Time Living Will No March 31 7:29am Do you have a Healthcare Power of Body Shop Floorperson? No March 31, 2024 7:29am Living Will No April 03 11:35am Do you have a Healthcare Power of Body Shop Floorperson? No April 03, 2024 11:35am Living Will No July 24, 2023 12:15pm Do you have a Healthcare Power of Body Shop Floorperson? No July 24, 2023 12:15pm Advance Directive Response Recorded Date/ Time Living Will No March 31 7:29am Do you have a Healthcare Power of Body Shop Floorperson? No March 31, 2024 7:29am Living Will No April 03 11:35am Do you have a Healthcare Power of Body Shop Floorperson? No April 03, 2024 11:35am Advance Directive Response Recorded Date/ Time Do you have a Healthcare Power of Body Shop Floorperson? No September 03, 2024 3:17pm Chief Complaint and Reason for Visit Chief [...] Admit Date BONE DENSITY DISCUSSION December 30, 2 024 3:56pm FATTY LIVER January 12, 2024 9 :52am PALPITATIONS January 18, 2024 1 2:13pm PALPITATIONS January 18, 2024 2 :59pm FATTY LIVER February 08, 2024 2:01pm OSTEOPENIA, PREMATURE OVARIAN FAILURE Zenon sewell 2024 2:07pm cold March 31, 2024 6:25am CHEST PAIN April 03, 2024 9:49am [facility] FU April 04, 2024 9:10am Reason for Visit Admit Date VALERA (nonalcoholic steatohepatitis) Nove mber 2023 3:56pm Osteopenia December 31, 2023 3:56pm [...] NAFLD MILD/MODERATE SCARRING June 29 025 8:01am Reason for Visit Admit Date [...] 8:01am Elevated transaminase level June 29 8:01am VALERA (nonalcoholic steatohepatitis) June 29, 2024 8:01am Chief [...] 9:34a m NAFLD MILD/MODERATE SCARRING June 29, 025 8:01am FU July 19, 2024 12:0 [...] 8:01am Elevated transaminase level June 29 8:01am VALERA (nonalcoholic steatohepatitis) June 29, 2024 8:01am Drug-induced [...] 9:34a m NAFLD MILD/MODERATE SCARRING June 29, 025 8:01am FU July 19, 2024 12:0 [...] 8:01am Elevated transaminase level June 29 8:01am VALERA (nonalcoholic steatohepatitis) June 29, 2024 8:01am Drug-induced liver injury July 19 12:01pm Elevated liver enzymes July 19, 2024 1 2:01pm Metabolic dysfunction-associated steatoh epatitis (MASH) July 19, 2024 12:01pm Chronic leukopenia July 28, 2024 11:1 5am Monocytosis July 28, 2024 11:1 5am Lymphopenia July 28, 2024 11:1 5am Chief Complaint Admit Date COUGH, MUCUS, CHEST CONGESTION June 20, 2024 7:52am FATTY LIVER June 27, 2024 9:34a m NAFLD MILD/MODERATE SCARRING June 29, 025 8:01am FU July 19, 2024 12:0 1pm HEM/ONC July 28, 2024 11:1 5am foot injury September 03, 2024 2:55 pm Reason for Visit Admit Date Common bile duct dilation June 29, 2024 8:01am Elevated alkaline phosphatase level June 29, 2024 8:01am Elevated transaminase level June 29 8:01am VALERA (nonalcoholic steatohepatitis) June 29, 2024 8:01am Drug-induced liver injury July 19 12:01pm Elevated liver enzymes July 19, 2024 1 2:01pm Metabolic dysfunction-associated steatoh epatitis (MASH) July 19, 2024 12:01pm Chronic leukopenia July 28, 2024 11:1 5am Monocytosis July 28, 2024 11:1 5am Lymphopenia July 28, 2024 11:1 5am Chief Complaint Admit Date COUGH, MUCUS, CHEST CONGESTION June 20, 2024 7:52am FATTY LIVER June 27, 2024 9:34a m NAFLD MILD/MODERATE SCARRING June 29, 2 025 8:01am FU July 19, 2024 12:0 1pm HEM/ONC July 28, 2024 11:1 5am foot injury September 03, 2024 2:[address] [facility] FOLLOW UP September 09, 2024 12: 14pm Reason for Referral Specialty Diagnoses / Procedures Referred By Ricardo t Referred To Contact Diagnoses Intramural and subserous leiomyoma of uterus Pelvic pressure in female Procedures CONSULT TO MINIMALLY INVASIVE GYNECOLOGIC SURGERY Leo Barnett MD [address] [place] [address] [facility] [address] [place] [address] Phone: [phone] Referral ID Status Reason Start Date Expiration Date Visits Requested Visits Authorized [id number] Ref Not Required PCP Requested Referral 08/12/2023 08/11/2024 1 1 Specialty Diagnoses / Procedures Referred By Contnannette t Referred To Contact Diagnoses Intramural and subserous leiomyoma of uterus Procedures CONSULT TO MINIMALLY INVASIVE GYNECOLOGIC SURGERY OFFICE/OUTPATIENT [facility] 60 MINUTES Leo Barnett MD [address] [place] [address] Referral ID Status Reason Start Date Expiration Date Visits Requested Visits Authorized [id number] Authorized PCP Requested Referral Auto-Generate d Referral 08/12/2023 08/11/2024 1 1 Additional Source Comments INFORMATION SOURCE (unrecogn ized section and content) DATE CREATED AUTHOR 11/25/2018 [facility] ([place]) DATE CREATED AUTHOR AUTHOR'S ORGANIZ ATION 01/22/2021 [facility] DATE CREATED AUTHOR AUTHOR'S ORGANIZ ATION 03/30/2024 [facility] DATE CREATED AUTHOR AUTHOR'S ORGANIZ ATION 05/22/2024 [facility] DATE CREATED AUTHOR AUTHOR'S ORGANIZ ATION 07/17/2024 [facility] DATE CREATED AUTHOR AUTHOR'S ORGANIZ ATION 09/04/2024 [facility] <item> Privacy Markings (unrecogniz ed section and [...] or prosecute any alcohol or drug abuse patient.[facility] CenterIn the event this information is protected by the Federal Confidentiality of Alcohol and Drug Abuse Patient Records regulations: The Federal rules restrict any use of the information to criminally investigate or prosecute any alcohol or drug abuse patient.[facility] CenterIn the event this information is protected by the Federal Confidentiality of Alcohol and Drug Abuse Patient Records regulations: The Federal rules restrict any use of the information to criminally investigate or prosecute any alcohol or drug abuse patient.[facility] CenterIn the event this information is protected by the Federal Confidentiality of Alcohol and Drug Abuse Patient Records regulations: The Federal rules restrict any use of the information to criminally investigate or prosecute any alcohol or drug abuse patient.[facility] CenterIn the event this information is protected by the Federal Confidentiality of Alcohol and Drug Abuse Patient Records regulations: The Federal rules restrict any use of the information to criminally investigate or prosecute any alcohol or drug abuse patient.[facility] CenterIn the event this information is protected by the Federal Confidentiality of Alcohol and Drug Abuse Patient Records regulations: The Federal rules restrict any use of the information to criminally investigate or prosecute any alcohol or drug abuse patient.[facility] CenterIn the event this information is protected by the Federal Confidentiality of Alcohol and Drug Abuse Patient Records regulations: The Federal rules restrict any use of the information to criminally investigate or prosecute any alcohol or drug abuse patient.[facility] CenterIn the event this information is protected by the Federal Confidentiality of Alcohol and Drug Abuse Patient Records regulations: The Federal rules restrict any use of the information to criminally investigate or prosecute any alcohol or drug abuse patient.[facility] CenterIn the event this information is protected by the Federal Confidentiality of Alcohol and Drug Abuse Patient Records regulations: The Federal rules restrict any use of the information to criminally investigate or prosecute any alcohol or drug abuse patient.[facility] CenterIn the event this information is protected by the Federal Confidentiality of Alcohol and Drug Abuse Patient Records regulations: The Federal rules restrict any use of the information to criminally investigate or prosecute any alcohol or drug abuse patient.[facility] CenterIn the event this information is protected by the Federal Confidentiality of Alcohol and Drug Abuse Patient Records regulations: The Federal rules restrict any use of the information to criminally investigate or prosecute any alcohol or drug abuse patient.[facility] CenterIn the event this information is protected by the Federal Confidentiality of Alcohol and Drug Abuse Patient Records regulations: The Federal rules restrict any use of the information to criminally investigate or prosecute any alcohol or drug abuse patient.[facility] CenterIn the event this information is protected by the Federal Confidentiality of Alcohol and Drug Abuse Patient Records regulations: The Federal rules restrict any use of the information to criminally investigate or prosecute any alcohol or drug abuse patient.[facility] CenterIn the event this information is protected by the Federal Confidentiality of Alcohol and Drug Abuse Patient Records regulations: The Federal rules restrict any use of the information to criminally investigate or prosecute any alcohol or drug abuse patient.[facility] CenterIn the event this information is protected by the Federal Confidentiality of Alcohol and Drug Abuse Patient Records regulations: The Federal rules restrict any use of the information to criminally investigate or prosecute any alcohol or drug abuse patient.[facility] CenterIn the event this information is protected by the Federal Confidentiality of Alcohol and Drug Abuse Patient Records regulations: The Federal rules restrict any use of the information to criminally investigate or prosecute any alcohol or drug abuse patient.[facility] CenterIn the event this information is protected by the Federal Confidentiality of Alcohol and Drug Abuse Patient Records regulations: The Federal rules restrict any use of the information to criminally investigate or prosecute any alcohol or drug abuse patient.[facility] CenterIn the event this information is protected by the Federal Confidentiality of Alcohol and Drug Abuse Patient Records regulations: The Federal rules restrict any use of the information to criminally investigate or prosecute any alcohol or drug abuse patient.[facility] CenterIn the event this information is protected by the Federal Confidentiality of Alcohol and Drug Abuse Patient Records regulations: The Federal rules restrict any use of the information to criminally investigate or prosecute any alcohol or drug abuse patient.[facility] CenterIn the event this information is protected by the Federal Confidentiality of Alcohol and Drug Abuse Patient Records regulations: The Federal rules restrict any use of the information to criminally investigate or prosecute any alcohol or drug abuse patient.[facility] CenterIn the event this information is protected by the Federal Confidentiality of Alcohol and Drug Abuse Patient Records regulations: The Federal rules restrict any use of the information to criminally investigate or prosecute any alcohol or drug abuse patient.[facility] CenterIn the event this information is protected by the Federal Confidentiality of Alcohol and Drug Abuse Patient Records regulations: The Federal rules restrict any use of the information to criminally investigate or prosecute any alcohol or drug abuse patient.[facility] CenterIn the event this information is protected by the Federal Confidentiality of Alcohol and Drug Abuse Patient Records regulations: The Federal rules restrict any use of the information to criminally investigate or prosecute any alcohol or drug abuse patient.[facility] CenterIn the event this information is protected by the Federal Confidentiality of Alcohol and Drug Abuse Patient Records regulations: The Federal rules restrict any use of the information to criminally investigate or prosecute any alcohol or drug abuse patient.[facility] CenterIn the event this information is protected by the Federal Confidentiality of Alcohol and Drug Abuse Patient Records regulations: The Federal rules restrict any use of the information to criminally investigate or prosecute any alcohol or drug abuse patient.[facility] CenterIn the event this information is protected by the Federal Confidentiality of Alcohol and Drug Abuse Patient Records regulations: The Federal rules restrict any use of the information to criminally investigate or prosecute any alcohol or drug abuse patient.[facility] CenterIn the event this information is protected by the Federal Confidentiality of Alcohol and Drug Abuse Patient Records regulations: The Federal rules restrict any use of the information to criminally investigate or prosecute any alcohol or drug abuse patient.[facility] CenterIn the event this information is protected by the Federal Confidentiality of Alcohol and Drug Abuse Patient Records regulations: The Federal rules restrict any use of the information to criminally investigate or prosecute any alcohol or drug abuse patient.[facility] CenterIn the event this information is protected by the Federal Confidentiality of Alcohol and Drug Abuse Patient Records regulations: The Federal rules restrict any use of the information to criminally investigate or prosecute any alcohol or drug abuse patient.[facility] CenterIn the event this information is protected by the Federal Confidentiality of Alcohol and Drug Abuse Patient Records regulations: The Federal rules restrict any use of the information to criminally investigate or prosecute any alcohol or drug abuse patient.[facility] CenterIn the event this information is protected by the Federal Confidentiality of Alcohol and Drug Abuse Patient Records regulations: The Federal rules restrict any use of the information to criminally investigate or prosecute any alcohol or drug abuse patient.[facility] CenterIn the event this information is protected by the Federal Confidentiality of Alcohol and Drug Abuse Patient Records regulations: The Federal rules restrict any use of the information to criminally investigate or prosecute any alcohol or drug abuse patient.[facility] Reason for Visit (unrecogniz ed [...] MINIMALLY INVASIVE GYNECOLOGIC SURGERY OFFICE/OUTPATIENT [facility] 60 MINUTES Leo Barnett MD [address] [place] [address] Referral ID Status Reason Start Date Expiration Date V isits Requested Visits Authorized [id number] Closed PCP Requested Referral Auto-Generated Referral 08/12/2023 [...] Care Teams (unrecognized sec tion and content) 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 Relationship Specialty Start Date End Date Emily Sanders MD [address] [place] [phone] PCP - General Internal Medicine 04/18/21 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 Relationship Specialty Start Date End Date Emily Sanders MD [address] [facility] [address] [place] [address] PCP - General Internal Medicine 04/18/21 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 Relationship Specialty Start Date End Date Emily Sanders MD [address] [facility] [address] [place] [address] PCP - General Internal Medicine 04/18/21 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 Relationship Specialty Start Date End Date Emily Sanders MD [address] [facility] [address] [place] [phone] PCP - General Internal Medicine 04/18/21 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 Relationship Specialty Start Date End Date Emily Sanders MD [address] [facility] [address] [place] [phone] PCP - General Internal Medicine 04/18/21 Team Status: Active Member Role Status Dates Dr. Emily Sanders MD Primary Care Provider Active Team Status: Inactive Member Role Status Dates Dr. Emily Sanders MD Primary Care Provider, Refer ring Provider Active Javi Rivero ELECTRONICS ENGINEERING TECHNICIAN, ELECTRONICS ENGINEERING TECHNICIAN-C Attending Provider Active Team Status: Inactive Member Role Status Dates Dr. Emily Sanders MD Primary Care Provider, Refer ring Provider Active Miki JOHNSON PA Attending Provider Active Team Status: Inactive Member Role Status Dates Dr. Emily Sanders MD Primary Care Provider Active Miki JOHNSON PA Attending Provider Active Team Status: Inactive Member Role Status Dates Dr. Emily Sanders MD Primary Care Provider Active Umang Matos MD Emergency Provider Active Team Status: Inactive Member Role Status Dates Dr. Emily Sanders MD Primary Care Provider, Refer ring Provider Active Manolo JOHNSON PA Attending Provider Active Team Status: Inactive Member Role Status Dates Dr. Emily Sanders MD Primary Care Provider Active Umang Matos MD Attending Provider, Emergency Provid er Active Team Status: Inactive Member Role Status Dates Dr. Emily Sanders MD Primary Care Provider, Atten ding Provider Active 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 Relationship Specialty Start Date End Date Emily Sanders MD [address] [place] [address] (Fax) PCP - General Internal Medicine 04/18/21 Team Status: Inactive Member Role Status Dates Dr. Emily Sanders MD Primary Care Provider, Refer ring Provider Active Dr. Gene Braun MD Attending Provider Active Team Status: Inactive Member Role Status Dates Dr. Emily Sanders MD Primary Care P roleonelder, Attending Provider, Referring Provider Active Team Status: Active Member Role Status Dates Dr. Gene Braun MD Attending Provider Active DEFINED NOT Referring Provider Active Dr. Emily Sanders MD Primary Care Provider Active 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 Relationship Specialty Start Date End Date Emily Sanders MD [address] [place] [address] (Fax) PCP - General Internal Medicine 04/18/21 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 Relationship Specialty Start Date End Date Emily aSnders MD [address] [place] [address] (Fax) PCP - General Internal Medicine 04/18/21 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 Relationship Specialty Start Date End Date Emily Sanders MD [address] [place] [address] (Fax) PCP - General Internal Medicine 04/18/21 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 Relationship Specialty Start Date End Date Emily Sanders MD [address] [place] [address] PCP - General Internal Medicine 04/18/21 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 Relationship Specialty Start Date End Date Emily Sanders MD [address] [place] [address] PCP - General Internal Medicine 04/18/21 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 Relationship Specialty Start Date End Date Emily Sanders MD [address] [place] [address] PCP - General Internal Medicine 04/18/21 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 Relationship Specialty Start Date End Date Emily Sanders MD [address] [place] [address] PCP - General Internal Medicine 04/18/21 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 Relationship Specialty Start Date End Date Emily Sanders MD [address] [place] [address] PCP - General Internal Medicine 04/18/21 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 Relationship Specialty Start Date End Date Emily Sanders MD [address] [place] [address] PCP - General Internal Medicine 04/18/21 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 Relationship Specialty Start Date End Date Emily Sanders MD [address] [place] [address] PCP - General Internal Medicine 04/18/21 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 Relationship Specialty Start Date End Date Emily Sanders MD [address] [place] [address] PCP - General Internal Medicine 04/18/21 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 Relationship Specialty Start Date End Date Emily Sanders MD [address] [place] [address] PCP - General Internal Medicine 04/18/21 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 Relationship Specialty Start Date End Date Emily Sanders MD [address] [place] [address] PCP - General Internal Medicine 04/18/21 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 Relationship Specialty Start Date End Date Emily Sanders MD [address] [place] [address] PCP - General Internal Medicine 04/18/21 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 Relationship Specialty Start Date End Date Emily Sanders MD [address] [place] [address] PCP - General Internal Medicine 04/18/21 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 Relationship Specialty Start Date End Date Emily Sanders MD [address] [place] [address] PCP - General Internal Medicine 04/18/21 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 Relationship Specialty Start Date End Date Emily Sanders MD [address] [place] [address] PCP - General Internal Medicine 04/18/21 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 [address] PCP - General Internal Medicine 03/29/24 Team [...] 2024 DEFINED NOT Referring Provider Active Start: [facility]24 Dr. Emily Sanders MD Primary Care Provider Active Start: April 18, 2024 Team Status: Inactive Member Role Status Dates Dr. Emily Sanders MD Primary Care Provider Active Start: April 22, 2024 End: April 22, 2024 Dr. Emily Sandesr MD Attending Provider Active Start: April 22, [...] Referring Provider Active Start: April 27, 2024 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 Relationship Specialty Start Date End Date Emily Sanders MD [address] [place] [phone] PCP - General Internal Medicine 04/18/21 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 Relationship Specialty Start Date End Date Emily Sanders MD [address] [place] [phone] PCP - General Internal Medicine 04/18/21 Team [...] June 29, 2024 End: June 29, 2024 MOY Art Attending Provider Active Start: June 29, 2024 [...] 2024 End: June 30, 2024 Vonda Mueller ELECTRONICS ENGINEERING TECHNICIAN-C Attending Provider Active Start: June 30, 2024 End: June 30, 2024 Vonda Mueller ELECTRONICS ENGINEERING TECHNICIAN-C Referring Provider Active Start: June 30, 2024 End: June 30, 2024 Team Status: Active Member Role Status Dates Dr. Emily Sanders MD Primary Care Provider Active Start: July 14, 2024 Vonda Mueller ELECTRONICS ENGINEERING TECHNICIAN-C Attending Provider Active Start: July 14, 2024 Vonda Mueller ELECTRONICS ENGINEERING TECHNICIAN-C Referring Provider Active Start: July 14, 2024 [...] 2024 End: July 14, 2024 Vonda Mueller ELECTRONICS ENGINEERING TECHNICIAN-C Attending Provider Active Start: July 14, 2024 End: July 14, 2024 Vonda Mueller ELECTRONICS ENGINEERING TECHNICIAN-C Referring Provider Active Start: July 14, 2024 End: July 14, 2024 Team Status: Active Member Role Status Dates Dr. Gene Braun MD Attending Provider Active S tart: July 28, 2024 DEFINED NOT Referring Provider Active Start: 2024 Dr. Emily Sanders MD Primary Care Provider Active Start: July 28, 2024 Team Status: Active Member Role/Relationship Status Dates Dr. Emily Sanders MD Primary Care Provider Active Team Status: Inactive Member Role/Relationship Status Dates Dr. Emily Sanders MD Primary Care Provider Active Start: June 20, 2024 End: June 20, 2024 Dr. Emily Sanders MD Referring Provider Active Start: June 20, 2024 End: June 20, 2024 Adi Galo PA, PA Attending Provider Active Start: June 20, 2024 End: June 20, 2024 Team Status: Inactive Member Role/Relationship Status Dates Dr. Emily Sanders MD Primary Care Provider Active Start: June 27, 2024 End: June 27, 2024 Dr. Jorgito Boogie MD Attending Provider Active Start: June 27, 2024 End: June 27, 2024 Dr. Jorgito Boogie MD Referring Provider Active Start: June 27, 2024 End: June 27, 2024 Team Status: Inactive Member Role/Relationship Status Dates Dr. Emily Sanders MD Referring Provider Active Start: June 29, 2024 End: June 29, 2024 Vonda Mueller NP-C Attending Provider Active Start: June 29, 2024 End: June 29, 2024 Team Status: Inactive Member Role/Relationship Status Dates Dr. Emily Sanders MD Primary Care Provider Active Start: June 30, 2024 End: June 30, 2024 Vonda Mueller ELECTRONICS ENGINEERING TECHNICIAN-C Attending Provider Active Start: June 30, 2024 End: June 30, 2024 Vonda Mueller ELECTRONICS ENGINEERING TECHNICIAN-C Referring Provider Active Start: June 30, 2024 End: June 30, 2024 Team Status: Inactive Member Role/Relationship Status Dates Dr. Emily Sanders MD Primary Care Provider Active Start: July 14, 2024 End: July 14, 2024 Vonda Mueller ELECTRONICS ENGINEERING TECHNICIAN-C Attending Provider Active Start: July 14, 2024 End: July 14, 2024 Vonda Mueller NP-C Referring Provider Active Start: July 14, 2024 End: July 14, 2024 Team Status: Inactive Member Role/Relationship Status Dates Dr. Gulshan Jules MD Attending Provider Active Start: July 19, 2024 End: July 19, 2024 Dr. Emily Sanders MD Primary Care Provider Active Start: July 19, 2024 End: July 19, 2024 Dr. Emily Sanders MD Referring Provider Active Start: July 19, 2024 End: July 19, 2024 Team Status: Active Member Role/Relationship Status Dates Dr. Gene Braun MD Attending Provider Active S tart: July 28, 2024 DEFINED NOT Referring Provider Active Start: 2024 Dr. Emily Sanders MD Primary Care Provider Active Start: July 28, 2024 Team Status: Inactive Member Role/Relationship Status Dates Dr. Emily Sanders MD Primary Care Provider Active Start: September 03, 2024 End: September 03, 2024 Dr. Noe Schroeder DO Emergency Provider Active Start: September 03, 2024 End: September 03, 2024 Team Status: Inactive Member Role/Relationship Status Dates Dr. Emily Sanders MD Primary Care Provider Active Start: September 03, 2024 End: September 03, 2024 Dr. Noe Schroeder DO Attending Provider Active Start: September 03, 2024 End: September 03, 2024 Dr. Noe Schroeder DO Emergency Provider Active Start: September 03, 2024 End: September 03, 2024 Team Status: Inactive Member Role/Relationship Status Dates Dr. Emily Sanders MD Primary Care Provider Active Start: September 09, 2024 End: September 09, 2024 Dr. Emily Sanders MD Referring Provider Active Start: September 09, 2024 End: September 09, 2024 ELIZABETH Morales Attending Provider Active St art: September 09, 2024 End: September 09, 2024 Goals (unrecognized section and content) Goals [...] BE BASED ON THE PRIMARY CLINICAL RECORDS. [facility]. provides no warranty or guarantee of the accuracy or completeness of information in this document.
[2024-09-10 06:38] LABS: Hematocrit 37.7 % (37-47); Hemoglobin 13.2 g/dL (12.0-15.0); Immature Granulocytes Count 0.010 X10^3/uL (0.0-0.0); Mean Corp Hgb Conc 35.0 g/dL (32-36); Mean Corpuscular Volume 100.0 fL (81-99); Mean Platelet Vol. 11.0 fl (6.2-12.0); NRBC Flagged by Analyzer 0 % (0-5); Platelet Count 159 K/mm3 (150-450); RBC Distribution Width CV 14.5 % (11.6-14.6); RBC Distribution Width SD 53.2 fl (35.1-43.9); Red Blood Count 3.77 M/mm3 (4.2-5.4); White Blood Count 3.7 K/mm3 (4.4-11.0)
[2024-09-10 06:55] LABS: Mucous, Urine 0 SEEN /hpf (<or=2+); Red Blood Cells-Urine 0 SEEN /hpf (0-5)
[2024-09-10 07:10] LABS: Color, Urine Yellow (Yellow); Glucose, Dipstick Normal (Normal); Ketone-Dipstick Negative (Negative); Leukocyte Esterase-Dipstick 500 /ul (Negative); Nitrite-Dipstick Negative (Negative); Occult Blood-Urine Negative /ul (Negative); Protein-Dipstick 15 mg/dl (Negative); Specific Gravity, Urine 1.010 (1.002-1.030); Urine Bilirubin Dipstick Negative (Negative)
[2024-09-10 07:11] LABS: Squamous Epithelial Cells - UA 5-10 SEEN /hpf (5-10)
[2024-09-10 07:34] LABS: Anion Gap 12 (5-15); BUN 12 mg/dL (4-19); BUN/Creat Ratio 14.6 RATIO (10-20); Calcium,Total 9.2 mg/dL (7.6-11.0); Carbon Dioxide 24.4 mmol/L (21.0-32.0); Chloride 104 mmol/L (98-108); Estimated Creatinine Clearance 74.27 ml/min (50-250); Glucose 97 mg/dL (70-99); Potassium 4.0 mmol/L (3.3-5.1)
[2024-09-10 07:44] VITALS: BP 131/68; PULSE 47; RESP 12; TEMP 37.1; O2SAT 97
== END 2024-09-10 07:52 | disposition home or self-care (01) ==
PROVIDERS: Emergency Provider Emergency Medicine; PCP Internal Medicine; Visit Provider Emergency Medicine
DX: R00.2 Palpitations (principal); N39.0 Urinary tract infection, site not specified; F41.8 Other specified anxiety disorders; Z79.899 Other long term (current) drug therapy; I34.1 Nonrheumatic mitral (valve) prolapse; Z90.710 Acquired absence of both cervix and uterus
CPT/HCPCS: 80048; 81001; 85025; 93005; 99283; A4216

== ENCOUNTER → 2024-09-23 | Outpatient (CLI) | payer BC, SELFPAY ==
[2024-09-23 11:24] LABS: Hematocrit 38.6 % (37-47); Hemoglobin 13.2 g/dL (12.0-15.0); Immature Granulocytes Count 0.000 X10^3/uL (0.0-0.0); Mean Corp Hgb Conc 34.2 g/dL (32-36); Mean Corpuscular Volume 100.8 fL (81-99); Mean Platelet Vol. 10.1 fl (6.2-12.0); NRBC Flagged by Analyzer 0 % (0-5); Platelet Count 155 K/mm3 (150-450); RBC Distribution Width CV 14.4 % (11.6-14.6); RBC Distribution Width SD 52.3 fl (35.1-43.9); Red Blood Count 3.83 M/mm3 (4.2-5.4); White Blood Count 2.6 K/mm3 (4.4-11.0)
[2024-09-23 11:32] LABS: Prothrombin Time (Protime)PT. 13.3 SECONDS (11.7-14.9)
[2024-09-23 11:55] LABS: AST(SGOT) 41 U/L (<=31); Alanine Aminotransfer ALT/SGPT 73 U/L (<=34); Albumin, Serum 4.5 g/dL (3.5-5.0); Alkaline Phosphatase 88 U/L (35-104); Anion Gap 11 (5-15); BUN 11 mg/dL (4-19); BUN/Creat Ratio 14.6 RATIO (10-20); Bilirubin, Direct 0.20 mg/dL (0.00-0.30); CRP < 3.00 mg/L (0.0-3.0); Calcium,Total 9.7 mg/dL (7.6-11.0); Carbon Dioxide 24.9 mmol/L (21.0-32.0); Chloride 103 mmol/L (98-108); Cholesterol 131 mg/dL (<=200); Globulin 2.3 g/dL (2.2-4.2); Glucose 72 mg/dL (70-99); Low Density Lipoprotein Calc. 36 mg/dL; Potassium 4.2 mmol/L (3.3-5.1); Triglycerides 111 mg/dL; Very Low Density Lipoprotein 22 mg/dL (5-40); cholesterol:hdl ratio screen 1.80
[2024-09-23 12:02] LABS: Magnesium 2.2 mg/dL (1.5-2.2)
== END | disposition home or self-care (01) ==
LOC: LAB 09:55
PROVIDERS: Internal Medicine; PCP Internal Medicine; Referring Provider Student in an Organized Health Care Education/Training Program; Visit Provider Student in an Organized Health Care Education/Training Program
DX: K71.9 Toxic liver disease, unspecified (principal); K75.81 Nonalcoholic steatohepatitis (NASH); R74.8 Abnormal levels of other serum enzymes; R00.2 Palpitations; D72.810 Lymphocytopenia
CPT/HCPCS: 36415; 80053; 80061; 82248; 83036; 83735; 84443; 85025; 85610; 86140

== ENCOUNTER → 2024-10-25 | Outpatient (CLI) | payer BC, SELFPAY ==
--- NOTE | 2024-10-25 12:44 | ECHOD_ITS ---
Reason For Study Reason For Study: PALPITATIONS Procedure This was a 2D Doppler, Color Flow transthoracic echocardiogram. Exam performed in department. Left Ventricle Normal size and thickness. The left ventricular ejection fraction is 65 %. Normal diastology for age. Right Ventricle Normal right ventricle. Atria The left and right atria are normal. Mitral Valve Trivial mitral valve insufficiency. Tricuspid Valve Trivial tricuspid valve insufficiency. Normal pulmonary artery pressure. Aortic Valve Trisinus/trileaflet aortic valve. Trivial aortic valve insufficiency. Pulmonic Valve Normal pulmonic valve. Great Vessels Normal sized aortic root. Pericardium/Pleural No pericardial effusion. MMode/2D Measurements & Calculations LVIDd: 4.2 cm IVSd: 0.82 cm LVOT diam: 1.8 cm LVIDs: 3.0 cm LVPWd: 0.77 cm LVOT area: 2.4 cm2 RVDd: 3.3 cm FS: 30.1 % asc Aorta Diam: 2.5 cm LAV(MOD-bp): 27.0 ml LVAd ap4: 23.6 cm2 LAV(MOD-bp) Indexed: 17.8 ml/m2 LVLd ap4: 7.5 cm LAV(MOD-sp2): 28.7 ml EDV(MOD-sp4): 62.5 ml LAV(MOD-sp4): 24.9 ml EDV(sp4-el): 62.5 ml LVAs ap4: 12.2 cm2 LVLs ap4: 5.9 cm ESV(MOD-sp4): 21.9 ml ESV(sp4-el): 21.4 ml EF(MOD-sp4): 65.0 % EF(sp4-el): 65.7 % LVAd ap2: 21.6 cm2 SV(MOD-sp4): 40.6 ml SV(MOD-sp2): 32.9 ml LVLd ap2: 7.9 cm SI(MOD-sp4): 26.7 ml/m2 SI(MOD-sp2): 21.6 ml/m2 EDV(MOD-sp2): 53.2 ml EDV(sp2-el): 50.6 ml LVAs ap2: 11.7 cm2 LVLs ap2: 6.2 cm ESV(MOD-sp2): 20.4 ml ESV(sp2-el): 18.7 ml EF(MOD-sp2): 61.7 % SV(sp4-el): 41.1 ml Ao sinus diam: 2.[address] Junction: 2.1 cm LA dimension(2D): 2.9 cm LA A4 area: 12.5 cm2 RA A4 area: 12.5 cm2 TAPSE: 2.1 cm Time Measurements MV dec time: 0.21 sec Doppler Measurements & Calculations MV E max benjamin: 112.3 cm/sec Lat Peak E' Benjamin: 17.6 cm/sec Med Peak E' Benjamin: 10.8 cm/sec MV A max benjamin: 57.2 cm/sec E/E' lat: 6.4 E/E' med: 10.4 MV E/A: 2.0 MV dec slope: 531.6 cm/sec2 Ao V2 max: 141.6 cm/sec LV V1 max: 129.6 cm/sec Ao max P.0 mmHg LV V1 max P.7 mmHg Ao V2 mean: 91.1 cm/sec LV V1 mean P.5 mmHg Ao mean P.9 mmHg LV V1 mean: 83.5 cm/sec Ao V2 VTI: 33.5 cm LV V1 VTI: 32.9 cm AV (velocity ratio): 0.98 VIDYA(I,D): 2.4 cm2 VIDYA(V,D): 2.2 cm2 SV(LVOT): 80.5 ml PA V2 max: 86.6 cm/sec TR max benjamin: 222.8 cm/sec TR max P.9 mmHg ECHO/Echo Complete Interpretation Summary The left ventricular ejection fraction is 65 %. Ordering Physician: Gibran Rob Referring Physician: Tiffany Sanders Performed By: Natalya Lennon MINOR
== END | disposition home or self-care (01) ==
LOC: CVS 12:43
PROVIDERS: PCP Internal Medicine; Referring Provider Student in an Organized Health Care Education/Training Program; Visit Provider Student in an Organized Health Care Education/Training Program
DX: R07.9 Chest pain, unspecified (principal); I34.1 Nonrheumatic mitral (valve) prolapse
CPT/HCPCS: 93306

== ENCOUNTER 2024-10-31 08:20 | Day surgery (SDC) | payer BC, SELFPAY ==
--- NOTE | 2024-10-28 13:33 | PAT.ANESEVAL ---
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 When Was Last Pacemaker Check QUESTION #4 FULL TEXT: You/Your Family Experience fever (hyperthermia) with Anesthesia Last Oral Intake Last Oral intake: Last Oral Intake NPO since Meds taken in AM with sips of water? Meds patient instructed to take am of surgery PONV PONV - non emergency services ambulance driver: PONV - non emergency services ambulance driver Female Yes 10/28/24 12:00 HX of Motion Sickness No 10/28/24 12:00 HX of N/V After Surgery No 10/28/24 12:00 Non-Smoker Yes 10/28/24 12:00 Duration of Surgery greater No 10/28/24 12:00 than 60 minutes Number of Risk Factors 2 10/28/24 12:00 PONV Score Moderate Risk 10/28/24 12:00 Height & Weight Height & Weight: Anesthesia: Height & Weight Height 4 ft 10 in 10/21/24 05:59 Respiratory Assessment Respiratory Assessment - non emergency services ambulance driver: Respiratory Tract Infection Hx - non emergency services ambulance driver Hx Respiratory Tract Infection No 10/28/24 12:00 STOP Sleep Apnea STOP Sleep Apnea - non emergency services ambulance driver: STOP Sleep Apnea - non emergency services ambulance driver Hx Hypertension No 10/28/24 12:00 Hx Sleep Apnea Yes 10/28/24 12:00 CPAP Yes: HASNT RECIEVED YET 10/28/24 12:00 BIPAP No 10/28/24 12:00 Do you snore loudly (louder than talking or can be heard Do you often feel tired/ fatigued/ sleepy during daytime? Has anyone observed you stop breathing during sleep? STOP Results Positive 10/28/24 12:00 QUESTION #5 FULL TEXT : Do you snore loudly (louder than talking or can be heard through closed doors)? 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 Specify any problems Hx of Preganancy in last 3 N/A 10/28/24 12:00 Months Nurse Filling Out Transfusion NBUCHER 10/28/24 12:00 & Questions: Date: 10/28/24 10/28/24 12:00 Time: 12:02 10/28/24 12:00 Patient unable to answer at this time (ie. confused, unrespo /Reproduction History /Reproductive History - non emergency services ambulance driver: /Reproductive Hx- non emergency services ambulance driver Hx Now No 10/28/24 12:00 Gestational Age (in weeks): EDC: Hx Hx Para Hx Section SAB No 10/28/24 12:00 [facility] History (Updated 10/28/24 @ 12:08 by Prachi Mcguire) Wears glasses Cancer High cholesterol Fatty liver History of IBS Non-smoker CPAP (continuous positive airway pressure) dependence Sleep apnea History of edema History of Holter monitoring History of echocardiogram History of stress test Cardiology follow-up encounter Lichen sclerosus NICA (obstructive sleep apnea) Costochondritis COELHO (nonalcoholic steatohepatitis) Osteopenia Obesity (BMI 30.0-34.9) Abdominal pain Chronic diarrhea Preventative health care Depression Anxiety Cervical radiculopathy Hyperglycemia Encounter for vitamin deficiency screening Chronic neck pain Hypersomnolence Screening for thyroid disorder Health care maintenance Congestion of left ear Post-nasal drip Urinary frequency Nonrheumatic mitral (valve) prolapse Non-alcoholic fatty liver disease Suicide ideation Anxiety and depression Heart valve disorder Vitamin deficiency Vision problems Hormone deficiency Frequent headaches H/O emotional problems UTI (urinary tract infection) Seasonal allergies Home Medications ?Medication ?Instructions ?Recorded ?Last Taken ?Type docusate sodium 100 mg capsule 100 mg PO DAILY PRN constipation 12/11/23 Unknown History (Stool Softener) albuterol sulfate 90 mcg/actuation 2 inh inhalation Q4H PRN shortness 03/31/24 Unknown History aerosol inhaler of breath or wheezing cholecalciferol (vitamin D3) 50 50 mcg PO DAILY 03/31/24 Unknown History mcg (2,000 unit) tablet (D3 DOTS) estradiol 0.1 mg/24 hr semiweekly 1 patch topical SUWE 03/31/24 Unknown History transdermal patch (Marge) fluvoxamine 100 mg tablet 100 mg PO DAILY 03/31/24 Unknown History metronidazole 1 % topical gel 1 applic topical DAILY PRN 04/25/24 Unknown History Perioral detmatitis rosuvastatin 10 mg tablet 5 mg (1/2 x 10 mg) PO DAILY 1 07/19/24 Unknown Rx month #30 tabs cetirizine 10 mg capsule 10 mg PO HS PRN Seasonal allergies 10/11/24 Unknown History clobetasol 0.05 % topical cream 1 applic topical DAILY 10/11/24 Unknown History multivitamin 1 tab PO QAM 10/11/24 Unknown History resmetirom 80 mg tablet (Rezdiffra) 80 mg PO QDAY 10/11/24 Unknown History mecobalamin (vitamin B12) 1,000 1,000 mcg PO QDAY 10/18/24 Unknown History mcg chewable tablet (B12 Active) vitamin E 200 unit capsule 90 mg PO QDAY 10/28/24 Unknown History Allergy/AdvReac Type Severity Reaction Status Date / Time No Known Allergies Allergy Verified 10/28/24 11:55 Family History Brother Anxiety Hypertension Sister Anxiety Hypertension Uncle Anxiety Myocardial infarction Aunt Anxiety Grandmother Breast cancer Grandfather Myocardial infarction Father Hypertension Surgical History (Updated 10/28/24 @ 12:08 by Prachi Mcguire) History of wisdom tooth extraction History of hysterectomy Hx of local excision of skin lesion History of bone marrow biopsy Social History (Updated 10/21/24 @ 09:52 by Janice Feliz) current occupational status: unemployed 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 Smoking Status: Never smoker alcohol intake: never substance use type: does not use caffeine: Yes Type: tea Number of servings: 1 Audit: Pertinent Findings Pertinent Findings EKG Perinent findings: 09/10/2024. Normal sinus rhythm 63 bpm. Echo (EF%) pertinent findings: 10/25/2024. Left ventricular function normal EF 65%. Consult pertinent findings: Cardiology 09/23/2024. Bradycardia. Rate in the 50s. Patient reports bradycardia is chronic for her. Potassium and sodium recently checked and were within normal limits. Palpitations. Acute. Will obtain echocardiogram for monitoring of valve disease. Obtain 14-day event monitor. Recommendation Anesthesia Recommendation Anesthesia recommendation: OPTIMIZED for anesthesia
[2024-10-31] VITALS (8 sets, daily range): BP systolic 106–114; BP diastolic 61–73; PULSE 51–68; RESP 16; TEMP 36.2–36.7; O2SAT 96–100; BMI 27.1
--- NOTE | 2024-10-31 08:34 | PCM.HP.STD ---
HPI - General General Date of Admission: 10/31/24 Date of Service: 10/31/24 Chief Complaint: anal itching HPI Narrative DIANE HERNANDEZ, is a 38 F who presents with the Chief Complaint: rectal itching Details: - seen by DRIVER GUIDE and diagnosed with Lichen, vaginal itching and pain with intercourse - reports rectal itching has been worse than vaginal itching - itching worse at night - hydrocortisone helps a little - has had some rectal bleeding with BM the past few months - denies any change in bowel habits - started Rezdiffra 3 days ago for the liver (Dr. Jules) - Dr. Jenni Hwang at [facility] - reports having an anxiety disorder - presently seeing cardiology at [place] - wearinf a 14d heart monitor - Colon 1 year ago - Dr. Boogie, per patient this was unremarkable - was not having these symptoms a year ago [facility] Medical History Wears glasses Cancer High cholesterol Fatty liver History of IBS Non-smoker CPAP (continuous positive airway pressure) dependence Sleep apnea History of edema History of Holter monitoring History of echocardiogram History of stress test Cardiology follow-up encounter Lichen sclerosus NICA (obstructive sleep apnea) Costochondritis COELHO (nonalcoholic steatohepatitis) Osteopenia Obesity (BMI 30.0-34.9) Abdominal pain Chronic diarrhea Preventative health care Depression Anxiety Cervical radiculopathy Hyperglycemia Encounter for vitamin deficiency screening Chronic neck pain Hypersomnolence Screening for thyroid disorder Health care maintenance Congestion of left ear Post-nasal drip Urinary frequency Nonrheumatic mitral (valve) prolapse Non-alcoholic fatty liver disease Suicide ideation Anxiety and depression Heart valve disorder Vitamin deficiency Vision problems Hormone deficiency Frequent headaches H/O emotional problems UTI (urinary tract infection) Seasonal allergies Home Medications ?Medication ?Instructions ?Recorded ?Last Taken ?Type docusate sodium 100 mg capsule 100 mg PO DAILY PRN constipation 12/11/23 Unknown History (Stool Softener) albuterol sulfate 90 mcg/actuation 2 inh inhalation Q4H PRN shortness 03/31/24 Unknown History aerosol inhaler of breath or wheezing cholecalciferol (vitamin D3) 50 50 mcg PO DAILY 03/31/24 Unknown History mcg (2,000 unit) tablet (D3 DOTS) estradiol 0.1 mg/24 hr semiweekly 1 patch topical SUWE 03/31/24 Unknown History transdermal patch (Marge) fluvoxamine 100 mg tablet 100 mg PO DAILY 03/31/24 Unknown History metronidazole 1 % topical gel 1 applic topical DAILY PRN 04/25/24 Unknown History Perioral detmatitis rosuvastatin 10 mg tablet 5 mg (1/2 x 10 mg) PO DAILY 1 07/19/24 Unknown Rx month #30 tabs cetirizine 10 mg capsule 10 mg PO HS PRN Seasonal allergies 10/11/24 Unknown History clobetasol 0.05 % topical cream 1 applic topical DAILY 10/11/24 Unknown History multivitamin 1 tab PO QAM 10/11/24 Unknown History resmetirom 80 mg tablet (Rezdiffra) 80 mg PO QDAY 10/11/24 Unknown History mecobalamin (vitamin B12) 1,000 1,000 mcg PO QDAY 10/18/24 Unknown History mcg chewable tablet (B12 Active) vitamin E 200 unit capsule 90 mg PO QDAY 10/28/24 Unknown History Allergy/AdvReac Type Severity Reaction Status Date / Time No Known Allergies Allergy Verified 10/28/24 11:55 Family History Brother Anxiety Hypertension Sister Anxiety Hypertension Uncle Anxiety Myocardial infarction Aunt Anxiety Grandmother Breast cancer Grandfather Myocardial infarction Father Hypertension Surgical History History of wisdom tooth extraction History of hysterectomy Hx of local excision of skin lesion History of bone marrow biopsy Social History current occupational status: unemployed 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 Smoking Status: Never smoker alcohol intake: never substance use type: does not use caffeine: Yes Type: tea Number of servings: 1 ROS Constitutional Constitutional: Denies fatigue, fever(s), poor appetite, weight gain or weight loss Gastrointestinal Gastrointestinal: Denies belching, bloating, change in bowel habits, change in stool character, chewing difficulty, coffee ground emesis, constipation, cramping, diarrhea, dyspepsia, dysphagia, early satiety, excessive flatus, fecal incontinence, heartburn, hematemesis, hematochezia, hemorrhoids, loose stools, melena, nausea, odynophagia, rectal bleeding, tenesmus, vomiting or weight changes Physical Exam Const alert, oriented x3, no apparent distress and healthy appearing General Appearance: cooperative GI normal to inspection, nondistended, normoactive bowel sounds, soft to palpation, non-tender and non-distended Percussion: normal to percussion Rectal Exam: deferred Assessment & Plan Assessment/Plan (1) Rectal bleeding: (2) Rectal pain: (3) Rectal itching: PLAN: Assessment and Plan Assessment and Plan (1) Rectal itching: Status: Acute (2) Rectal pain: Status: Acute (3) Rectal bleeding: Status: Acute Medications: New hydrocortisone acetate (Anusol-HC) 25 mg GA QHS 12 ea 0RF hemorrhoid Plan 38-year-old female with a history of lichen sclerosus and mitral valve prolapse presenting with persistent pruritus and irritation primarily affecting the anal and vulvar areas. The symptoms of pruritus are exacerbated by heat and perspiration. Exam findings showed discoloration and patches. She will schedule consult with dermatology. Patient Instructions: Schedule consult with dermatology - perianal lichens? Anusol suppositories for hemorrhoid Sigmoidoscopy - Cardiac moitor - will need cleared from a cardiac standpoint
--- NOTE | 2024-10-31 08:36 | PRE.ANES_ITS ---
ASA Classification* ASA Classification ASA Classification: 2 Assessment & Plan Anesthesia* Anesthesia Assessment Anesthesia Assessment: Discussed sedation and/or anesthesia options, risks, benefits, and alternatives with patient/parents/legal guardian/POA. Questions invited. The patient/parents/legal guardian/POA seems to understand and agrees to proceed with anesthesia plan. Reviewed the physical assessment, medical history, allergy history and patient home medications list prior to surgery/procedure/anesthetic and documented any changes. Performed airway and anesthesia risk assessments. Anesthesia Type Anesthesia Type: MAC Anesthesia Focused Assessment* Airway Assessment Mouth opens: >3 cm Mallampati Score: II Labs Anesthesia Preop lab: CBC WBC, (4.4-11.0) 2.9 K/mm3 L 10/11/24, 13: RBC, (4.2-5.4) 3.65 M/mm3 L 10/11/24, 13: Hgb, (12.0-15.0) 12.8 g/dL 10/11/24, 13: Hct, (37-47) 36.9 % L 10/11/24, 13: Plt Count, (150-450) 160 K/mm3 10/11/24, 13:27 CHEMISTRY Potassium, (3.3-5.1) 3.8 mmol/L 10/11/24, 13: Sodium, (133-145) 139 mmol/L 10/11/24, 13: Magnesium, (1.5-2.2) 2.2 mg/dL 09/23/24, 10:00 BUN, (4-19) 17 mg/dL 10/11/24, 13: Creatinine, (0.70-1.20) 0.69 mg/dL L 10/11/24, 13: Glucose, (70-99) 142 mg/dL H 10/11/24, 13: TSH, (0.300-4.200) 4.060 uIU/mL 09/23/24, 10:00 COAG PT, (11.7-14.9) 13.3 SECONDS 09/23/24, 10:01 Pre-Assessment Diagnosis/Proposed Procedure Planned Operative Procedure(s): FLEX SIG Anesthesia History Anesthesia History - 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 When Was Last Pacemaker Check QUESTION #4 FULL TEXT: You/Your Family Experience fever (hyperthermia) with Anesthesia Last Oral Intake Last Oral intake: Last Oral Intake NPO since Meds taken in AM with sips of water? Meds patient instructed to take am of surgery PONV PONV - correctional agency director: PONV - correctional agency director Female Yes 10/28/24 12:00 HX of Motion Sickness No 10/28/24 12:00 HX of N/V After Surgery No 10/28/24 12:00 Non-Smoker Yes 10/28/24 12:00 Duration of Surgery greater No 10/28/24 12:00 than 60 minutes Number of Risk Factors 2 10/28/24 12:00 PONV Score Moderate Risk 10/28/24 12:00 Height & Weight Height & Weight: Anesthesia: Height & Weight Height 4 ft 10 in 10/21/24 05:59 Respiratory Assessment Respiratory Assessment - correctional agency director: Respiratory Tract Infection Hx - correctional agency director Hx Respiratory Tract Infection No 10/28/24 12:00 STOP Sleep Apnea STOP Sleep Apnea - correctional agency director: STOP Sleep Apnea - correctional agency director Hx Hypertension No 10/28/24 12:00 Hx Sleep Apnea Yes 10/28/24 12:00 CPAP Yes: HASNT RECIEVED YET 10/28/24 12:00 BIPAP No 10/28/24 12:00 Do you snore loudly (louder than talking or can be heard Do you often feel tired/ fatigued/ sleepy during daytime? Has anyone observed you stop breathing during sleep? STOP Results Positive 10/28/24 12:00 QUESTION #5 FULL TEXT : Do you snore loudly (louder than talking or can be heard through closed doors)? Tobacco Use History Tobacco Use History - correctional agency director: Tobacco Use History - correctional agency director Tobacco Use Smoking Status Never smoker 10/28/24 12:00 Hx Tobacco Use No 10/28/24 12:00 Years Smoking Packs Smoked per Day Smoking Cessation Date was within the last 15 years Hx Smoking Cessation Date Hx Smoking Cessation Counseling Hematologic Medial History Hematologic Hx - correctional agency director: Hematologic Medical Hx - scientific aide Hx of Blood Transfusion No 10/28/24 12:00 Hx of Transfusion in last 3 No 10/28/24 12:00 Months Date of Last Transfusion (if within last 3 months) Ever experience any problems No 10/28/24 12:00 with transfusion(s)? Specify any problems Hx of Preganancy in last 3 N/A 10/28/24 12:00 Months Nurse Filling Out Transfusion NBUCHER 10/28/24 12:00 & Questions: Date: 10/28/24 10/28/24 12:00 Time: 12:02 10/28/24 12:00 Patient unable to answer at this time (ie. confused, unrespo /Reproduction History /Reproductive History - correctional agency director: /Reproductive Hx- correctional agency director Hx Now No 10/28/24 12:00 Gestational Age (in weeks): EDC: Hx Hx Para Hx Section SAB No 10/28/24 12:00 Active Medications Active Medications: Current Medications Generic Name Dose Route Start Last Admin Trade Name Freq PRN Reason Stop Dose Admin Lactated Ringer's 1,000 mls @ 15 mls/hr 10/31/24 08:45 IV .Q48H JOEY PFSH Medical History Wears glasses Cancer High cholesterol Fatty liver History of IBS Non-smoker CPAP (continuous positive airway pressure) dependence Sleep apnea History of edema History of Holter monitoring History of echocardiogram History of stress test Cardiology follow-up encounter Lichen sclerosus NICA (obstructive sleep apnea) Costochondritis COELHO (nonalcoholic steatohepatitis) Osteopenia Obesity (BMI 30.0-34.9) Abdominal pain Chronic diarrhea Preventative health care Depression Anxiety Cervical radiculopathy Hyperglycemia Encounter for vitamin deficiency screening Chronic neck pain Hypersomnolence Screening for thyroid disorder Health care maintenance Congestion of left ear Post-nasal drip Urinary frequency Nonrheumatic mitral (valve) prolapse Non-alcoholic fatty liver disease Suicide ideation Anxiety and depression Heart valve disorder Vitamin deficiency Vision problems Hormone deficiency Frequent headaches H/O emotional problems UTI (urinary tract infection) Seasonal allergies Home Medications ?Medication ?Instructions ?Recorded ?Last Taken ?Type docusate sodium 100 mg capsule 100 mg PO DAILY PRN con stipation 12/11/23 Unknown History (Stool Softener) albuterol sulfate 90 mcg/actuation 2 inh inhalation Q4 H PRN shortness 03/31/24 Unknown History aerosol inhaler of breath or wheezing cholecalciferol (vitamin D3) 50 50 mcg PO DAILY Unknown History mcg (2,000 unit) tablet (D3 DOTS) estradiol 0.1 mg/24 hr semiweekly 1 patch topical SUWE 03/31/24 Unknown History transdermal patch (Marge) fluvoxamine 100 mg tablet 100 mg PO DAILY 03/31/24 Unk nown History metronidazole 1 % topical gel 1 applic topical DAILY P RN 04/25/24 Unknown History Perioral detmatitis rosuvastatin 10 mg tablet 5 mg (1/2 x 10 mg) PO DAILY 1 07/19/24 Unknown Rx month #30 tabs cetirizine 10 mg capsule 10 mg PO HS PRN Seasonal all ergies 10/11/24 Unknown History clobetasol 0.05 % topical cream 1 applic topical DAILY 10/11/24 Unknown History multivitamin 1 tab PO QAM 10/11/24 Unknow n History resmetirom 80 mg tablet (Rezdiffra) 80 mg PO QDAY 04/05 Unknown History mecobalamin (vitamin B12) 1,000 1,000 mcg PO QDAY 11/03 Unknown History mcg chewable tablet (B12 Active) vitamin E 200 unit capsule 90 mg PO QDAY 10/28/24 Unkn own History Allergy/AdvReac Type Severity Reaction Status Date / Time No Known Allergies Allergy Verified 10/28/24 11:55 Family History Brother Anxiety Hypertension Sister Anxiety Hypertension Uncle Anxiety Myocardial infarction Aunt Anxiety Grandmother Breast cancer Grandfather Myocardial infarction Father Hypertension Surgical History History of wisdom tooth extraction History of hysterectomy Hx of local excision of skin lesion History of bone marrow biopsy Social History current occupational status: unemployed 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 Smoking Status: Never smoker alcohol intake: never substance use type: does not use caffeine: Yes Type: tea Number of servings: 1 Review of Systems (Anesthesia) ROS Narrative System reviewed and no additional complaints, except as documented.
[2024-10-31] MEDS: Lactated Ringers 1,000 ML 15 ML IV (09:11)
--- NOTE | 2024-10-31 10:03 | OP.PROVAT_ITS ---
10/31/2024 Tiffany Sanders MD [address] [place] [address] [place] [address] Re : Flexible Sigmoidoscopy procedure for Violet Jarquin Dear Dr. Sanders This procedure was performed on Thursday, October 31, 2024. My impressions and recommendations are as follows: Impressions : - Anal fissure. - The examination was otherwise normal. - Anal papilla(e) were hypertrophied. - No specimens collected. Recommendations : - Use original regular Metamucil one teaspoon PO daily. My findings are described in the full procedure note, which is enclosed. If I can be of further assistance, please feel free to contact me at . Sincerely, Miguel A Mcgarry, 10/31/2024 10:03:12 AM This report has been signed electronically.
--- NOTE | 2024-10-31 10:03 | OP.FLEXSIG_ITS ---
Patient Name: Violet Jarquin Procedure Date: 10/31/2024 9:41 AM Date of : 1985 Age: 38 Procedure: Flexible Sigmoidoscopy Indications: Anal pain Providers: Miguel A Mcgarry DO Medicines: Monitored Anesthesia Care Patient Profile: This is a 38 year old female. Refer to note in patient chart for documentation of history and physical. Patient has symptoms of acute abdominal pain. Complications: No immediate complications. Procedure: Pre-Anesthesia Assessment: - Prior to the procedure, a History and Physical was performed, and patient medications and allergies were reviewed. The patient is competent. The risks and benefits of the procedure and the sedation options and risks were discussed with the patient. All questions were answered and informed consent was obtained. Patient identification and proposed procedure were verified by the physician in the pre-procedure area. Mental Status Examination: alert and oriented. Airway Examination: normal oropharyngeal airway and neck mobility. Respiratory Examination: clear to auscultation. CV Examination: normal. Prophylactic Antibiotics: The patient does not require prophylactic antibiotics. Prior Anticoagulants: The patient has taken no anticoagulant or antiplatelet agents. ASA Grade Assessment: II - A patient with mild systemic disease. After reviewing the risks and benefits, the patient was deemed in satisfactory condition to undergo the procedure. The anesthesia plan was to use monitored anesthesia care (MAC). Immediately prior to administration of medications, the patient was re-assessed for adequacy to receive sedatives. The heart rate, respiratory rate, oxygen saturations, blood pressure, adequacy of pulmonary ventilation, and response to care were monitored throughout the procedure. The physical status of the patient was re-assessed after the procedure. After obtaining informed consent, the endoscope was passed under direct vision. Throughout the procedure, the patient's blood pressure, pulse, and oxygen saturations were monitored continuously. The pediatric colonoscope was introduced through the anus and advanced to the splenic flexure. The quality of the bowel preparation was good. Scope In: 9:51:39 AM Scope Out: 9:54:43 AM Total Procedure Duration Time 0 hours 3 minutes 4 seconds Findings: The perianal and digital rectal examinations were normal. Pertinent negatives include normal sphincter tone, no palpable rectal lesions and no anal lesion or abnormality. A 4 mm anal fissure was found in the anal canal. The exam was otherwise without abnormality. Anal papilla(e) were hypertrophied. Impression: - Anal fissure. - The examination was otherwise normal. - Anal papilla(e) were hypertrophied. - No specimens collected. Recommendation: - Use original regular Metamucil one teaspoon PO daily. Procedure Code(s): --- Professional --- 38036, Sigmoidoscopy, flexible; diagnostic, including collection of specimen(s) by brushing or washing, when performed (separate procedure) CPT copyright 2021 [employer]. All rights reserved. The codes documented in this report are preliminary and upon outpatient coding specialist review may be revised to meet current compliance requirements. Miguel A Mcgarry DO 10/31/2024 10:03:12 AM This report has been signed electronically. Number of Addenda: 0 Note Initiated On: 10/31/2024 9:41 AM
--- NOTE | 2024-10-31 10:06 | PCM.POST.ANE ---
Anesthesia: Postop Eval I Current Vital Signs Temperature: 98 F Pulse Rate: 61 Blood Pressure: 112/65 Respiratory Rate: 16 Pulse Ox: 98 Oxygen Delivery Method: Room Air Assessment Airway patent: Yes Spontaneous unlabored respirations: Yes Mental status: Awake and Calm nausea: No Vomiting: No Anesthesia Complication: No Fluid Hydration Crystalloid volume administer (ml): 400 Total IV fluid infused: 400 Progress Note Anesthesia document: Postop Eval 1 completed: Yes
--- NOTE | 2024-10-31 10:13 | PCM.POSTANE2 ---
Anesthesia Postop Eval I Sum Postop Eval Completion status Anesthesia document: Postop Eval 1 completed: Yes Anesthesia Postop Eval I Summary Anesthesia Postop Eval I Summary: Anesthesia Postop Eval I: Assessment Summary Airway patent Yes 10/31/24 10:07 [email or web address] Spontaneous unlabored Yes 10/31/24 10:07 [email or web address] respirations Mental status Awake,Calm 10/31/24 10:07 [email or web address] nausea No 10/31/24 10:07 [email or web address] Vomiting No 10/31/24 10:07 [email or web address] Anesthesia Postop Eval I: Fluid Summary Crystalloid volume administer 400 10/31/24 10:07 [email or web address] (ml) Colloids volume administered ( ml) Blood Product volume administered (ml) Total IV fluid infused 400 10/31/24 10:07 [email or web address] Anesthesia Postop Eval I: Summary Notes Anesthesia Complication No 10/31/24 10:07 [email or web address] Anesthesia Complication Comment: Post-operative progress note Anesthesia: Postop Eval II Evaluation Mental status: Awake Pain Level: 0 nausea: No Vomiting: No
== END 2024-10-31 10:35 | disposition home or self-care (01) ==
LOC: EN 08:26 → AC 08:26
PROVIDERS: PCP Internal Medicine; Referring Provider Internal Medicine; Visit Provider Internal Medicine Gastroenterology
PROC: 0DJD8ZZ Inspection of Lower Intestinal Tract, Via Natural or Artificial Opening Endoscopic (ICD-10-PCS; CPT 45330; principal; 2024-10-31 09:25)
DX: K60.2 Anal fissure, unspecified (principal); E78.00 Pure hypercholesterolemia, unspecified
CPT/HCPCS: 45330; J2405

== ENCOUNTER → 2024-12-20 | Outpatient (CLI) | payer BC, SELFPAY ==
--- OUTSIDE RECORDS SUMMARY | 2024-12-20 06:50 | XMS RPT_ITS | CCD ---
Author Organization [facility] Care Team Providers Care Lace Burn Out Tender Name Role Phone Required, No Pcp Unavailable [...] Dr. Emily Sanders Referring Provider [phone] Mat WELL DRILL OPERATOR HELPER CABLE TOOL, WELL DRILL OPERATOR HELPER CABLE TOOL-Alexandria Cooper Attending Provider ELIZABETH Watt Attending Provider [...] Provider Timur MCGEE, Dr. Carson Emergency Provider Carmel MCGEE, Dr. Aguilera Emergency Provider Marilyn MCGEE, Dr. Allen Primary Care Provider Keagan MCGEE, Dr. Bull Attending Provider Keagan MCGEE, Dr. Bull Referring Provider Marilyn MCGEE, Dr. Allen Attending Provider [phone] Marilyn MCGEE, Dr. Allen Referring Provider Chino MCGEE, Dr. Urrutia Attending Provider Chino MCGEE, Dr. Urrutia Referring Provider Chino MCGEE, Dr. Urrutia Other Provider Lon MCGEE, Dr. Robison Attending Provider Timur MCGEE, Dr. Carson Attending Provider Timur MCGEE, Dr. Carson Emergency Provider Carmel MCGEE, Dr. Aguilera Attending Provider Carmel MCGEE, Dr. Aguilera Emergency Provider Kade MCGEE, Dr. Mills Attending Provider NOT, DEFINED Referring Provider Unavailable Dr. Emily Sanders MD Primary Care Provider Dr. Jorgito Boogie MD Attending Provider Dr. Jorgito Boogie MD Referring Provider Marilyn MCGEE, Dr. Allen Attending Provider Marilyn MCGEE, Dr. Allen Referring Provider Adi Coleman Attending Provider Bradley WELL DRILL OPERATOR HELPER CABLE TOOL-C, Vonda Attending Provider Bradley WELL DRILL OPERATOR HELPER CABLE TOOL-CVonda Referring Provider EMILY SANDERS MD Primary Care [phone] EMILY SANDERS MD Primary Care Unavailab le BRADLEY INCINERATOR OPERATOR-WOOD LATHER, VONDA Attending [facility] kenton Jules MD, Dr. Gaffney Attending Provider Dr. Emily Sanders MD Primary Care Provider Dr. Jorgito Boogie MD Attending Provider Dr. Jorgito Boogie MD Referring Provider Kade MCGEE, Dr. Mills Attending Provider NOT, DEFINED Referring Provider Unavailable Dr. Emily Sanders MD Primary Care Provider Marilyn MCGEE, Dr. Allen Referring Provider [phone] Kade MCGEE, Dr. Mills Attending Provider Elda DAVIES, Dr. Liu Emergency Provider Elda DAVIES, Dr. Liu Attending Provider Manolo Quintero Attending Provider Silke DAVIES, Dr. Wong Emergency Provider Silke DAVIES, Dr. Wong Attending Provider Gibran Hollis Attending Provider Gibran Hollis Referring Provider NOT, DEFINED Referring Provider Unavailable Marilyn MCGEE, Dr. Aleln Primary Care Provider Marilyn MCGEE, Dr. Allen Referring Provider [phone] Diogenes WELL DRILL OPERATOR HELPER CABLE TOOL-C, Sandra Gutierrez Attending Provider LEE KATZ Attending Unavailable OLEGHE, EFEWONGBE B Primary Care Unavailable YENNIFER TOMAS Attending Unavailable OLEGHE, EFEWONGBE B Primary Care Unavailable YENNIFER TOMAS Attending Unavailable OLEGHE, EFEWONGBE B Primary Care Unavailable NEYHART LEO MONROE Referring Unavail able OLEGHE, EFEWONGBE B Primary Care Unavailable SHERLY NG Attending Unavailable OLEGHE, EFEWONGBE B Primary Care Unavailable SHERLY NG Attending Unavailable NG, SHERLY Referring Unavailable OLEGHE, EFEWONGBE B Primary Care Unavailable NEYSHAHZADT PARVEZ MONROERE Attending Unavail able OLEGHE, EFEWONGBE B Primary Care Unavailable Marilyn MCGEE, Dr. Allen Primary Care Physician Bradley WELL DRILL OPERATOR HELPER CABLE TOOL-CVonda Attending Physician [phone] Bradley WELL DRILL OPERATOR HELPER CABLE TOOL-CVonda Referring Provider Jorge A MCGEE, Dr. Gaffney Attending Physician Marilyn MCGEE, Dr. Efewongbe Referring Provider Kade MCGEE, Dr. Mills Attending Physician Elda DAVIES, Dr. Liu Attending Physician Elda DAVIES, Dr. Liu Emergency Department Physic eriberto Manolo Quintero Attending Physician Silke DAVIES, Dr. Wong Attending Physician Silke DAVIES, Dr. Wong Emergency Department Physician Gibran Hollis Attending Physician Lon MCGEE, Dr. Robison Attending Physician Diogenes WELL DRILL OPERATOR HELPER CABLE TOOL-C, Sandra Gutierrez Attending Physician Chino MCGEE, Dr. Urrutia Attending Physician Malgorzata DAVIES, Dr. Grady Attending Physician Malgorzata DAVIES, Dr. Grady Nurse Practitioner Oleghe, Efewongbe Primary Care Unavailable Oleghe, Efewongbe Referring Unavailable Gene Braun Attending Unavailable Oleghe, Efewongbe Primary Care Unavailable Manolo Quintero Attending Unavailable Oleghe, Efewongbe Referring Unavailable Oleghe, Efewongbe Primary Care Unavailable Liliiter, Gibran Referring Unavailable Ricki Forrest Attending Unavailable Oleghe, Efewongbe Attending Unavailable Oleghe, Efewongbe Referring Unavailable Oleghe, Efewongbe Primary Care Unavailable Pinoghe, Efewongbe Primary Care Unavailable Ghada Magana Referring Unavailable Ghada Magana Attending Unavailable Oleghe, Efewongbe Primary Care Unavailable Oleghe, Efewongbe Referring Unavailable Oleghe, Efewongbe Attending Unavailable Oleghe, Efewongbe Primary Care Unavailable Marvin Edouard Attending Unavailable Oleghe, Efewongbe Primary Care Unavailable Gibran Rob Attending Unavailable Demiter, Gibran Referring Unavailable Oleghe, Efewongbe Primary Care Unavailable Ding, Alli Attending Unavailable Oleghe, Efewongbe Attending Unavailable Oleghe, Efewongbe Referring Unavailable Oleghe, Efewongbe Primary Care Unavailable Oleghe, Efewongbe Primary Care Unavailable Vonda Mueller Attending Unavailable BradleyVonda Referring Unavailable Oleghe, Efewongbe Primary Care Unavailable DemHenok meekyler Attending Unavailable Demiter, Gibran Referring Unavailable Oleghe, Efewongbe Attending Unavailable Oleghe, Efewongbe Primary Care Unavailable Oleghe, Efewongbe Referring Unavailable Oleghe, Efewongbe Primary Care Unavailable Chino, Ghada Attending Unavailable Oleghe, Efewongbe Primary Care Unavailable Vonda Mueller Attending Unavailable BradleySabinaVonda Referring Unavailable Oleghe, Efewongbe Primary Care Unavailable DemiterHenokGibran Attending Unavailable Demiter, Gibran Referring Unavailable Oleghe, Efewongbe Primary Care Unavailable Willy Burt Attending Unavailable Oleghe, Efewongbe Primary Care Unavailable Noe Schroeder Attending Unavailable Oleghe, Efewongbe Primary Care Unavailable Jorgito Boogie Attending Unavailable Jabour, Vincent Referring Unavailable Oleghe, Efewongbe Primary Care Unavailable NOT, DEFINED Referring Unavailable Gene Braun Attending Unavailable Oleghe, Efewongbe Primary Care Unavailable Oleghe, Efewongbe Referring Unavailable Oleghe, Efewongbe Attending Unavailable Oleghe, Efewongbe Primary Care Unavailable Oleghe, Efewongbe Referring Unavailable Oleghe, Efewongbe Attending Unavailable Oleghe, Efewongbe Primary Care Unavailable Jabour, Jorgito Referring Unavailable JabourJorgito Attending Unavailable Oleghe, Efewongbe Primary Care Unavailable Sandra Shetty Attending Unavailable Sanrda Shetty Referring Unavailable Oleghe, Efewongbe Primary Care Unavailable Oleghe, Efewongbe Referring Unavailable Friend, Miguel A Attending Unavailable Oleghe, Efewongbe Primary Care Unavailable Jabour, Vincent Referring Unavailable JabourJorgito Attending Unavailable Oleghe, Efewongbe Primary Care Unavailable Oleghe, Efewongbe Referring Unavailable Friend, Miguel A Consulting Unavailable Friend, Miguel A Attending Unavailable Oleghe, Efewongbe Primary Care Unavailable Jabour, Vincent Referring Unavailable JabourJorgito Attending Unavailable Oleghe, Efewongbe Primary Care Unavailable Ricki Forrest Attending Unavailable Chino, Ghada Consulting Unavailable Chino, Ghada Referring Unavailable Oleghe, Efewongbe Primary Care Unavailable Gulshan Jules Attending Unavailable Oleghe, Efewongbe Referring Unavailable Oleghe, Efewongbe Primary Care Unavailable Oleghe, Efewongbe Referring Unavailable Gene Braun Attending Unavailable Oleghe, Efewongbe Primary Care Unavailable Oleghe, Efewongbe Referring Unavailable Sandra Shetty Attending Unavailable Oleghe, Efewongbe Primary Care Unavailable Oleghe, Efewongbe Referring Unavailable Sandra Shetty Attending Unavailable Oleghe, Efewongbe Primary Care Unavailable Adi Coleman Attending Unavailable Oleghe, Efewongbe Referring Unavailable Oleghe, Efewongbe Referring Unavailable Oleghe, Efewongbe Primary Care Unavailable Oleghe, Efewongbe Attending Unavailable Oleghe, Efewongbe Referring Unavailable Gene Braun Attending Unavailable Oleghe, Efewongbe Primary Care Unavailable Oleghe, Efewongbe Attending Unavailable Oleghe, Efewongbe Referring Unavailable Oleghe, Efewongbe Primary Care Unavailable Oleghe, Efewongbe Primary Care Unavailable Oleghe, Efewongbe Referring Unavailable Gulshan Jules Attending Unavailable Oleghe, Efewongbe Primary Care Unavailable Gibran Rob Attending Unavailable Oleghe, Efewongbe Referring Unavailable Oleghe, Efewongbe Primary Care Unavailable Vonda Mueller Attending Unavailable Oleghe, Efewongbe Referring Unavailable Oleghe, Efewongbe Referring Unavailable Vonda Mueller Attending Unavailable Medications Current Medications Medication Drug Class(es) Dates Sig (Normalized) Sig (Original) [id number] 200 actuat albuterol 0.09 mg/actuat metered dose inhaler (20 sources) beta2-Adrenergic Agonist Start: 03-31-2024 Start: 03-29-2024 End: 04-28-2024 take 2 puff(s) [...] INHALATION EVERY 6 HOURS 8.January 23, 2021 1:00am July 15, 2021 11:06am brompheniramine maleate 0.4 mg/ml / dextromethorphan hydrobromide 2 mg/ml / pseudoephedrine hydrochloride 6 mg/ml oral solution (1 source) alpha-Adrenergic Agonist, Uncompetitive Z-cijhnc-L-aspartate Receptor Antagonist, Sigma-1 Agonist Start: 03-29-2024 End: 04-08-2024 take 5 mL by mouth four times daily as needed for cough tnoyqvoymrlbolf-ngshwoswa-IT 2-30-10 mg/5 mL syrup Indications: Influenza A Take 5 mL by mouth 4 times a day as needed for congestion or cough for up to 10 days. 120 mL 03/29/2024 04/08/2024 Active cholecalciferol 0.05 mg oral tablet (20 sources) Vitamin D Start: 03-31-2024 clobetasol propionate 0.5 mg/ml topical cream (7 sources) Corticosteroid Start: 10-11-2024 Start: 10-11-2024 Clobetasol 0.0 5 % cream Active 1 NMA TOPICAL TWICE A DAY October 11, 2024 12:00am Start: 09-30-2024 End: 09-30-2025 clobetasol (TEMOVATE) 0.05 % ointment Indications: Vulvar itching Apply 1 application to affected area as directed. TO AFFECTED AREA. Clobetasol ointment twice daily x 4 weeks then at night x 4 weeks then every other day x 4 weeks then taper to 1-2 times/week. 60 g 2 09/30/2024 09/30/2025 Active CPAP - Continuous Positive Airway Pressure([facility] INFORMATIONAL USE ONLY) (2 sources) Start: 11-04-2024 docusate sodium 100 mg oral capsule (20 sources) Start: 02-01-2023 End: 12-11-2023 take 1 capsule by mouth once daily as needed for constipation 84 hr estradiol 0.11024 mg/hr transdermal system (20 sources) Estrogen Start: 06-06-2024 estradiol (DOT TI) 0.1 mg/24 hr patch APPLY 1 PATCH TOPICALLY TWICE A WEEK DIRECTED 24 patch 3 06/06/2024 Active Start: 03-31-2024 Start: 01-15-2024 End: 07-13-2024 estradiol (VIVELLE-DOT) 0.1 [...] Ordered: 19-Jan-2021 Tracey Lino Generic Substitution Allowed fluconazole 150 mg oral tablet (1 source) Azole Antifungal Start: End: take 1 tablet by mouth once fluconazole (DIFLUCAN) 150 mg tablet Indications: Acute vaginitis Take 1 tablet by mouth one time only for 1 dose. 1 tablet 09/30/2024 09/30/2024 Active fluvoxaMINE maleate 100 mg oral tablet (20 sources) Serotonin Reuptake Inhibitor Start: 025 take 1 tablet by mouth once daily Start: 03-15-2024 fLuvoxaMINE (L uvox) 100 mg [...] Take 100 mg by mouth once daily. Hydrocortisone Acetate (Anusol-Hc) 25 mg suppository (4 sources) Start: Hydrocortisone Acetate (Anusol-Hc) 25 mg suppository Active 25 mg RC AT BEDTIME 12 October 11, 2024 12:00am hemorrhoid LORazepam 0.5 mg oral tablet (1 source) Benzodiazepine Start: Ativan 0.5 mg oral tablet Dose : 0.25 mg = 0.5 tab(s), Oral, BID, PRN as needed for anxiety, 0 Refill(s) Start Date: 11/23/18 Status: Ordered Repeat number: 1 mecobalamin 1 mg chewable tablet (4 sources) Start: Mononessa 0.25 mg-35 mcg oral tablet (1 source) Start: take 1 tablet by mouth once daily Mononessa 0.25 mg-35 mcg oral tablet Dose = 1 tab(s), Oral, qDay, # 84 tab(s), 3 Refill(s) Start Date: 11/23/18 Status: Ordered Quantity: 84.0 Unit: tab(s) Repeat number: 1 multivit,thx,calcium,i adonis,mins (MULTIVITAMIN AND MINERAL ORAL) (4 sources) multivit,thx,royal cium, iron,mins (MULTIVITAMIN AND MINERAL ORAL) Take by mouth. Active Multivitamin preparation (20 sources) Start: take 1 tablet by mouth once daily multivitamin Active 1 TABLET PO DAILY February 16, 2019 7:48pm Start: 02-16-2019 End: 09-10-2024 multivitamin Discontinued 1 {tbl} PO DAILY February 16, 2019 1:00am September 10, 2024 5:53am Start: 02-16-2019 multivitamin A ctive 1 {tbl} [...] Repeat number: 1 take 1 tablet by tnaiya th once daily Multiple Vitamins oral tablet ; 1 tab(s) orally once a day Quantity: 0 Refills: 0 Ordered: 19-Jan-2021 Tracey Lino Generic Substitution Allowed Multivitamin tablet (6 sources) Start: 10-11-2024 Start: 10-11-2024 Multivitamin t ablet Active 1 {tbl} PO EVERY MORNING October 11, 2024 12:00am oxyCODONE hydrochloride 5 mg oral tablet (3 sources) Opioid Agonist Start: 11-10-2023 End: 11-13-2023 take 1 tablet by mouth every six hours as needed for pain oxyCODONE IR (ROXICODONE) 5 mg immediate release tablet Indications: Post-op pain Take 1 tablet by mouth every 6 hours as needed for pain for up to 3 days. 10 tablet 11/10/2023 11/13/2023 Active Resmetirom (2 sources) Start: 10-11-2024 take 1 tablet by mouth once daily Resmetirom (Rezdiffra) 80 mg tablet (4 sources) Start: 10-11-2024 take 1 tablet by mouth once daily Resmetirom (Rezdiffra) 80 mg tablet Active 80 mg PO daily October 11, 2024 12:00am rosuvastatin calcium 10 mg oral tablet (14 sources) HMG-CoA Reductase Inhibitor Start: 09-12-2024 take 0.5 tablet by mouth once daily rosuvastatin (CRESTOR) 10 mg tablet Take 0.5 tablets by mouth once daily. 09/12/2024 Active Start: 07-19-2024 take 5 mg by mouth once daily vitamin e 90 mg oral capsule (20 sources) Start: 10-28-2024 Start: 03-26-2020 End: 10-18-2024 Vitamin E (Dl, Acetate) 400 UNITS capsule Discontinued 400 U PO DAILY March 26, 2020 1:00am October 18, 2024 11:26am End: 11-06-2023 take 1 capsule by mouth once daily Vitamin E, dl, acetate, (VITAMIN E) 400 unit capsule Take 400 Units by mouth once daily. 11/06/2023 Discontinued take 1 capsule by mo uth once daily vitamin E 400 intl units oral capsule ; 1 cap(s) orally once a day Quantity: 0 Refills: 0 Ordered: 19-Jan-2021 Tracey Lino Generic Substitution Allowed Comment on above: Take 400 Units by mo ut once daily. vitamin E mixed/tocotrienol (VITAMIN E COMPLEX ORAL) (4 sources) take 1 capsule by mouth once daily vitamin E mixed/tocotrienol (VITAMIN E COMPLEX ORAL) Take 1 capsule by mouth once daily. Active vitamin E mixed/ tocotrienol (VITAMIN E COMPLEX ORAL) Take by mouth. Active Completed/Discontinued Medications Medication Drug Class(es) Dates Sig (Normalized) Sig (Original) acetaminophen 325 mg oral tablet (10 sources) Start: 11-10-2023 End: 12-17-2023 take 2 tablets by mouth every six hours as needed acetaminophen (TYLENOL) 325 mg tablet Take 2 tablets by mouth every 6 hours as needed for pain. 60 tablet 11/10/2023 12/17/2023 Discontinued amoxicillin 875 mg oral tablet (17 sources) Penicillin-class Antibacterial Start: 06-20-2024 End: 09-10-2024 take 1 tablet by mouth twice daily Amoxicillin 875 mg tablet Discontinued 875 mg PO TWICE A DAY June 20, 2024 12:00am September 10, 2024 5:54am ARIPiprazole 5 mg oral tablet (20 sources) [...] A DAY as needed for cough 30 1 January 23, 2021 1:00am July 01, 2021 [...] take 1 tablet by mouth twice daily jwipxme-lhfiixqmy-ebzlmiz D3 500 mg(1,250mg) -200 unit per tablet [...] a day cephalexin 500 mg oral capsule (20 sources) Cephalosporin Antibacterial Start: End: take 1 capsule by mouth every twelve hours Cephalexin 500 mg capsule Discontinued 500 mg PO EVERY 12 HOURS 14 0 September 10, 2024 12:00am September 23, 2024 9:29am Start: 02-02-2023 End: 04-28-2023 take 1 capsule by mouth twice daily Cephalexin 500 mg capsule Discontinued 500 mg PO TWICE A DAY 14 0 February 02, 2023 1:00am April 28, 2023 2:37pm cetirizine hydrochloride 10 mg oral capsule (20 sources) Histamine-1 Receptor Antagonist Start: 09-09-2024 End: 10-11-2024 Cetirizine 10 mg capsule Discontinued 10 mg PO .PRN September 23, 2024 9:29am October 11, 2024 3:07pm Seasonal allergies ciprofloxacin 500 mg oral tablet (11 sources) Quinolone Antimicrobial Start: 09-03-2024 End: 09-09-2024 take 1 tablet by mouth twice daily Ciprofloxacin Hcl 500 mg tablet Discontinued 500 mg PO TWICE A DAY 7 0 September 03, 2024 12:00am September 09, 2024 12:28pm Cranberry Fruit (20 sources) Non-Standardized Food Allergenic Extract, Non-Standardized Plant Allergenic Extract Start: 02-01-2023 End: 12-08-2023 take 1 capsule [...] norgestimate (20 sources) Progestin, Estrogen Start: End: take 1 [...] mg by mouth once daily. Ginkgo Biloba [place] Extract (20 sources) Start: 03-26-2020 End: 08-29-2020 Ginkgo Biloba [place] Extract Discontinued 60 MG PO March 26, 2020 11:51am August 29, 2020 9:36am Start: 03-26-2020 End: 08-29-2020 Ginkgo Biloba [place] Extract 6 0 MG tablet Discontinued 60 mg PO March 26, 2020 1:00am August 29, 2020 9:36am Start: 03-26-2020 End: 08-29-2020 Ginkgo Biloba [place] Extract 6 0 MG tablet Discontinued 60 mg PO March 26, 2020 12:00am August 29, 2020 8:36am Start: 03-26-2020 End: 08-29-2020 Ginkgo Biloba [place] Extract D iscontinued 60 MG PO March 26, 2020 1:00am August 29, 2020 9:36am Start: 03-26-2020 End: 08-29-2020 Ginkgo Biloba [place] Extract D iscontinued 60 MG PO March 26, 2020 12:00am August 29, 2020 8:36am hydrocortisone acetate 25 mg rectal suppository (2 sources) Corticosteroid Start: 10-11-2024 End: 10-28-2024 Hydrocortisone Acetate (Anusol-Hc) 25 mg suppository Discontinued 25 mg RC AT BEDTIME 12 October 11, 2024 12:00am October 28, 2024 11:57am hemorrhoid hydrOXYzine hydrochloride 10 mg oral tablet (20 [...] 12/17/2023 Discontinued methylPREDNISolone 4 mg oral tablet (20 sources) Corticosteroid Start: 10-06-2023 End: 12-08-2023 take 1 tablet by mouth once Methylprednisolone (Medrol (Kip)) 4 mg tablets,dose pack Discontinued 0 PO per package directions October 06, 2023 12:00am December 08, 2023 1:30pm PO PER PKG DIR metoprolol tartrate 50 mg oral tablet (20 sources) beta-Adrenergic Saleem Start: 01-15-2024 End: 03-31-2024 take 1 tablet by mouth once Metoprolol Tartrate 50 mg tablet Discontinued 50 mg PO ONCE 1 0 January 15, 2024 1:00am March 31, 2024 7:32am metroNIDAZOLE 500 mg oral tablet (20 sources) Nitroimidazole Antimicrobial Start: 10-21-2024 End: 10-28-2024 take 1 tablet by mouth twice daily Metronidazole 500 mg tablet Discontinued 500 mg PO TWICE A DAY October 21, 2024 12:00am October 28, 2024 11:58am Start: 10-18-2024 End: 10-21-2024 take 1 tablet by mouth every twelve hours Metronidazole 250 mg tablet Discontinued 250 mg PO Q12H October 18, 2024 12:00am October 21, 2024 9:49am x5 days Start: 04-25-2024 multivit with min-folic acid (ONE-A-DAY WOMEN VITACRAVES) [...] daily naltrexone hydrochloride 50 mg oral tablet (20 sources) Opioid Antagonist Start: End: take 1 [...] 0 Active naproxen 375 mg oral tablet (20 sources) Nonsteroidal Anti-inflammatory Drug Start: 04-04-2024 End: [...] 05/09/2022 Discontinued Comment on above: 2.5 mg. OTC PRODUCT (3 sources) End: 09-30-2024 OTC PRODUCT Zenuim supplemen t 09/30/2024 Discontinued (Discontinued by Patient) OTC PRODUCT Zenu im supplement Active predniSONE 20 mg oral tablet (20 sources) Start: 03-31-2024 End: 04-04-2024 take 3 [...] Vitamin B Complex (B Complex-Vitamin B12) tablet (20 sources) Start: 02-16-2019 End: 02-25-2019 take 1 [...] 16, 2019 12:00am February 25, 2019 9:38am Vitamin B Complex tablet (19 sources) Start: 04-27-2024 End: 10-28-2024 take 1 tablet by mouth once daily Vitamin B Complex tablet Discontinued 1 {tbl} PO daily April 27, 2024 12:00am October 28, 2024 11:58am pt reports she takes one B complex gummy per day, unsure on strength Start: 04-27-2024 take 1 tablet by mouth once da spencer Vitamin B Complex tablet Active 1 {tbl} PO daily April 27, 2024 12:00am pt reports she takes one B complex gummy per day, unsure on strength vitamin b12 0.5 mg oral tablet (20 sources) Vitamin B12 Start: 03-26-2020 End: 03-31-2024 take 2 tablets by mouth once daily Cyanocobalamin (Vitamin B-12) 500 MCG tablet Discontinued 1000 ug PO DAILY@799March 26, 2020 1:00am March 31, 2024 7:31am On Hold: MD Keen Start: 03-26-2020 End: 03-31-2024 take 2 tablets by mouth once daily Cyanocobalamin (Vitamin B-12) 500 MCG tablet Discontinued 1000 ug PO DAILY@799March 26, 2020 1:00am March 31, 2024 7:31am On Hold: MD Ordered Start: 03-26-2020 End: 03-31-2024 take 2 tablets by mouth once daily Cyanocobalamin (Vitamin B-12) 500 MCG tablet Discontinued 1000 ug PO DAILY@08March 26, 2020 12:00am March 31, 2024 6:31am On Hold: MD Ordered Start: 03-26-2020 take 1000 ug by mout h once daily Cyanocobalamin (Vitamin B-12) Active 1000 MCG PO DAILY@00 March 26, 2020 1:00am take 1 tablet by taniya th once daily cyanocobalamin (VITAMIN B-12) 1,000 mcg tab Take 1,000 mcg by mouth once daily. Active End: 11-06-2023 cyanocobalamin (VITAMIN B-12 ) 500 mcg tablet Take by mouth once daily. 11/06/2023 Discontinued Comment on above: Take by mouth once d aily. Zinc (3 sources) End: 09-30-2024 ZINC ORAL Take by mouth. 09/30/2024 Discontinued (Discontinued by Patient) ZINC ORAL Take b y mouth. Active zinc gluconate 50 mg oral tablet (20 sources) Start: 11-03-2022 End: 12-08-2023 take 1 tablet by mouth once daily Zinc Gluconate 50 mg tablet Discontinued 50 mg PO DAILY November 03, 2022 12:00am December 08, 2023 1:30pm Problems Active Problems Problem Classification Problem Date Documented Da te Episodic/Chronic Abdominal pain (20 sources) Left upper quadrant pain; Translations: [Left upper quadrant pain] 02-02-2023 Episodic Administrative/social admission (1 source) Education and/or schooling finding; Translations: [Problems related to education and literacy, unspecified] 2023 Episodic Anal and rectal conditions (15 sources) Rectal pain; Translations: [Other specified diseases of anus and rectum] Onset: 5 10-11-2024 Episodic Anxiety disorders (20 sources) Mixed anxiety and depressive disorder; Translations: [Anxiety disorder, unspecified] Onset: Chronic Comment on above: [address] [facility] - 11/27 Benign neoplasm of uterus (4 sources) Uterine leiomyoma; Translations: [Leiomyoma of uterus, unspecified] 05-19-2023 Episodic Biliary tract disease (20 sources) Cholangiectasis; 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] Onset: 5 06-29-2024 Chronic Blindness and vision defects (20 sources) Disorder of vision; Translations: [Unspecified visual loss] 03-28-2019 Chronic Cardiac dysrhythmias (20 sources) Palpitations; Translations: [Palpitations] Onset: Episodic Coagulation and hemorrhagic disorders (19 sources) Thrombocytopenic disorder; Translations: [Thrombocytopenia, unspecified] Onset: 4 11-09-2023 Chronic Complications of surgical procedures or medical care (1 source) Postsurgical menopause; 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 Associated with hypo cellular bone marrow biopsy.Clinically stable. WBC 2.9 with ANC 1.8 today. Flow cytometry on 04/18/2024 showed no Immunophenotypic abnormalities.Had night sweats, no fever.Clinically stable. Gastrointestinal hemorrhage (16 sources) Rectal hemorrhage; Translations: [Hemorrhage of anus and rectum] Onset: 5 10-11-2024 Episodic Genitourinary symptoms and ill-defined conditions (20 sources) Increased frequency of urination; Translations: [Frequency of micturition] Onset: 5 09-29-2021 Episodic Headache; including migraine (20 sources) Headache; Translations: [Headache] 01-19-2021 Episodic Heart valve disorders (20 sources) Mitral valve prolapse; Translations: [Nonrheumatic mitral (valve) prolapse] Onset: 4 Chronic Hepatitis (20 sources) Nonalcoholic steatohepatitis; Translations: [Nonalcoholic steatohepatitis (COELHO)] Onset: 5 12-31-2023 Chronic Immunizations and screening for infectious disease (20 sources) Patient encounter status; Translations: [Encounter for screening for human papillomavirus (HPV)] Episodic Inflammatory diseases of female pelvic organs (2 sources) Acute vaginitis; Translations: [Acute vaginitis] Onset: 5 09-30-2024 Episodic Influenza (20 sources) Influenza due to Influenza A virus; Translations: [Influenza due to other identified influenza virus with other respiratory manifestations] 03-29-2024 Episodic Menopausal disorders (6 sources) Premature ovarian failure; Translations: [Other primary ovarian failure] Chronic Menopausal disorders (1 source) Drug therapy finding; Translations: [Hormone replacement therapy] 02-11-2024 Episodic Menstrual disorders (4 sources) Break-through bleeding; Translations: [Excessive and frequent menstruation with irregular cycle] Chronic Mood disorders (20 sources) Depressive disorder; Translations: [Depression] 12-08-2023 Chronic Noninfectious gastroenteritis (20 sources) Noninfectious gastroenteritis; Translations: [Noninfective gastroenteritis and colitis, unspecified] Onset: 4 11-06-2023 Episodic Nonspecific chest pain (20 sources) Chest pain; Translations: [Chest pain, unspecified] Onset: 5 Episodic Nutritional deficiencies (20 sources) Vitamin deficiency; Translations: [Vitamin deficiency, unspecified] 03-28-2019 Episodic Other aftercare (1 source) Surgical follow-up; Translations: [Encounter for follow-up examination after completed treatment for conditions other than malignant neoplasm] 11-24-2023 Episodic Other aftercare (1 source) Encounter for adjustment and management of vascular access device; Translations: [Encounter for adjustment and management of vascular access device] Onset: 5 Episodic Other bone disease and musculoskeletal deformities (20 sources) Osteopenia; Translations: [Other specified disorders of bone density and structure, unspecified site] 12-31-2023 Episodic Other bone disease and musculoskeletal deformities (20 sources) Costal chondritis; Translations: [Chondrocostal junction syndrome [Tietze]] 04-04-2024 Episodic Other ear and sense organ disorders (20 sources) Sensation of blocked ear; Translations: [Other specified disorders of left ear] 12-04-2020 Episodic Other endocrine disorders (20 sources) Decreased estradiol level; Translations: [Other specified [...] noninflammatory disorders of vagina] 12-17-2023 Episodic Other inflammatory condition of skin (1 source) Pruritus of vulva; Translations: [Pruritus vulvae] 09-30-2024 Episodic Other inflammatory condition of skin (14 sources) Pruritus ani; Translations: [Pruritus ani] 10-11-2024 Episodic Other inflammatory condition of skin (1 source) Pruritus vulvae; Translations: [Vulvar itching] Onset: Episodic Other inflammatory condition of skin (1 source) Pruritus ani; Translations: [Pruritus ani] Onset: Episodic Other liver diseases (20 sources) Steatosis of liver; Translations: [Fatty (change of) liver, not elsewhere classified] Onset: 4 11-09-2023 Chronic Other liver diseases (20 sources) Drug-induced disorder of liver; 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, unspecified] 07-19-2024 Chronic Other liver diseases (1 source) Toxic liver disease, unspecified; 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, unspecified] Onset: Chronic Other liver diseases (1 source) Fatty (change of) liver, not elsewhere classified; Translations: [Fatty (change of) liver, not elsewhere classified] Onset: 5 Chronic Other liver diseases (20 sources) Enzyme level - finding; Translations: [Transaminasemia] 06-29-2024 Episodic Other liver diseases (20 sources) Alkaline phosphatase raised; Translations: [Abnormal levels of other serum enzymes] 06-29-2024 Episodic Other liver diseases (20 sources) Elevated liver enzymes level; Translations: [Abnormal levels of other serum enzymes] 07-19-2024 Episodic Other lower respiratory disease (20 sources) Dyspnea on exertion; Translations: [Dyspnea, unspecified] 08-29-2020 Episodic Other lower respiratory disease (1 source) Cough; Translations: [Acute cough] 03-29-2024 Episodic Other lower respiratory disease (2 sources) Wheezing; Translations: [Wheezing] Onset: 5 Episodic Other nutritional; endocrine; and metabolic disorders (20 sources) Obese class I; Translations: [Obesity, unspecified] Onset: 4 05-19-2023 Chronic Other upper respiratory disease (20 sources) Seasonal allergy; Translations: [Other seasonal allergic rhinitis] 03-28-2019 Chronic Other upper respiratory disease (20 sources) Acute bronchospasm; Translations: [Acute bronchospasm] 04-08-2024 Episodic Other upper respiratory infections (20 sources) Posterior rhinorrhea; Translations: [Postnasal drip] 12-04-2020 Episodic Laverne-; endo-; and myocarditis; cardiomyopathy (except that caused by tuberculosis or sexually transmitted disease) (20 sources) Heart valve disorder; Translations: [Endocarditis, valve unspecified] 03-28-2019 Chronic Residual codes; unclassified (20 sources) Hypersomnia; Translations: [Hypersomnia, unspecified] Onset: 4 07-01-2021 Chronic Residual codes; unclassified (2 sources) Hypersomnia, unspecified; Translations: [Hypersomnia, unspecified] Onset: 5 Chronic Residual codes; unclassified (20 sources) Obstructive sleep apnea syndrome; Translations: [Obstructive sleep apnea (adult) (pediatric)] Chronic Residual codes; unclassified (1 source) Obstructive sleep apnea (adult) (pediatric); Translations: [Obstructive sleep apnea (adult) (pediatric)] Onset: 5 Chronic Residual codes; unclassified (1 source) Postoperative state; Translations: [Other specified postprocedural states] 11-11-2023 Episodic Screening and history of mental health and substance abuse codes (20 sources) History of clinical finding in subject; Translations: [Personal history of other mental and behavioral disorders] 03-28-2019 Episodic Spondylosis; intervertebral disc disorders; other back problems (20 sources) Degeneration of cervical intervertebral disc; Translations: [Other cervical disc degeneration, unspecified cervical region] Chronic Spondylosis; intervertebral disc disorders; other back problems (20 sources) Chronic neck pain; Translations: [Cervicalgia] Episodic Suicide and intentional self-inflicted injury (20 sources) Suicidal thoughts; Translations: [Suicidal ideations] 03-28-2019 Episodic Comment on above: Was in [facility] 11/27 Unclassified (2 sources) RIGHT SIDED HEAD PAIN 01-19-2021 Comment on above: RIGHT SIDED HEAD REJI N Unclassified (1 source) APPOINTMENT CANCELLED 10-15-2022 Unclassified (1 source) Acute cough; Translations: [Acute cough] Onset: Unclassified (20 sources) G47.33 - Obstructive sleep apnea (adult) (pediatric) Urinary tract infections (20 sources) Urinary tract infectious disease; Translations: [Urinary tract infection, site not specified] 03-28-2019 Episodic Past or Other Problems Problem Classification Problem Date Documented Da te Episodic/Chronic Open wounds of extremities (20 sources) Puncture wound of right foot; Translations: [Puncture wound without foreign body, right foot, initial encounter] Onset: 09-10-2024 09-03-2024 Episodic Other bone disease and musculoskeletal deformities (1 source) Other specified disorders of bone density and structure, unspecified site; Translations: [Other specified disorders of bone density and structure, unspecified site] Onset: 03-05-2024 Episodic Other liver diseases (1 source) Abnormal levels of other serum enzymes; Translations: [Abnormal levels of other serum enzymes] Onset: 07-22-2024 Episodic Other lower respiratory disease (1 source) Shortness of breath; Translations: [Shortness of breath] Onset: 04-14-2024 Episodic Other lower respiratory disease (1 source) Dyspnea, unspecified; Translations: [Dyspnea, unspecified] Onset: 02-18-2024 Episodic Other non-epithelial cancer of skin (18 sources) Basal cell carcinoma of skin; Translations: [Basal cell carcinoma of skin, unspecified] Onset: 11-10-2023 11-10-2023 Episodic Other screening for suspected conditions (not mental disorders or infectious disease) (6 sources) Cancer cervix screening status; Translations: [Encounter for screening for malignant neoplasm of cervix] Onset: 04-15-2024 Episodic Unclassified (1 source) Acute cough; Translations: [Acute cough] Onset: 03-29-2024 Unclassified (1 source) Patient encounter status 05-20-2024 Results Test Name Value Interpretation Reference Range Facility Pulmonary Visit Reporton Pulmonary Visit Report Normal [facility] GUSTAVO SCREENING W TOMOon 11-03 GUSTAVO SCREENING W LOW * * *Final Report* * * DATE OF EXAM: Nov 03 2024 3:09PM [id number] - GUSTAVO SCREENING W LOW / PROCEDURE REASON: Encounter for screening mammogram for malignant neoplasm of breast * * * * Physician Interpretation * * * * RESULT: [place] [address] #[id number] - GUSTAVO SCREENING W LOW HISTORY: 39 year-old patient presents for screening. Patient is asymptomatic in both breasts. Patient states no personal history of breast cancer. The patient has a family history of breast cancer. COMPARISON STUDIES: This is a baseline study. MAMMOGRAM TECHNIQUE: The study was acquired using full field digital technology and interpreted from soft copy. Digital Breast Tomosynthesis (DBT) images were obtained and used to assist in the interpretation of this examination. Computer-aided detection was utilized by the radiologist in the interpretation of this examination. MAMMOGRAM FINDINGS: The breasts are heterogeneously dense, which may obscure small masses. No suspicious masses, calcifications or other abnormalities are seen in either breast. IMPRESSION: There is no mammographic evidence of malignancy in either breast. Routine screening mammogram is recommended. Annual mammogram will be due in 1 year. BI-RADS Category 1: Negative RISK: Based on the Tyrer-Cuzick (TC) risk assessment model, this patient has a 11.4% lifetime risk of developing breast cancer, meaning they are at average risk for developing breast cancer. However, this is only an estimate based on available history provided on the patient's questionnaire. We encourage all patients to talk with their providers about these results, further recommendations for managing breast health, and appropriate supplemental screening options if the patient has dense breast tissue. Interpreting Radiologist: Aron Medel M.D. FACR, FSBI Electronically signed on: 11/07/2024 Roof Truss Detailer: FARIHA Transcribe Date/Time: Nov 03 2024 2:51P Dictated by: ARON MEDEL MD This examination was interpreted and the report reviewed and electronically signed by: ARON MEDEL MD on Nov 07 2024 10:39AM EST [id number] Normal [facility] Flex Sigmoidoscopy Reporton 10-31-2024 Flex Sigmoidoscopy Report Normal [facility] [id number] 10-31-2024 [facility] Misc. COMMENT Normal . [facility] Comment on above: Order Comment: [id number] 0CLL FISH - SOD HEP -RT Result Comment: Test Ordered: [id number] CLL FISH PanelSpecimen Type Comment: CAMERON Reference Range: .BLOODCells Counted Comment: CAMERON Reference Range: .200/PROBECells Analyzed Comment: CAMERON Reference Range: .200/PROBEFISH Result Comment: CAMERON Reference Range: .NORMAL CLL PANELInterpretation Comment: CAMERON Reference Range: . The CLL interphase fluorescence in situ hybridization(FISH) panel analysis was normal. There were no cells withCCND1-IGH fusion. No extra signals or deletions of HUNTER,chromosome 12, 13q, or TP53 were observed. SPECIFIC FISH RESULTS: CCND1/IGH: NORMAL . nuc maya 11q13(WCHU5g4),14q32(IGHx2)[200] HUNTER: NORMAL nuc maya 11q22.3(ATMx2)[200]. 12cen: NORMAL . nuc maya 12cen(C96P2f9)[200]. 13q: NORMAL . nuc maya 13q14.3(DLEUx2),13q34(RMQD7f4)[200]. TP53: NORMAL . nuc maya 17p13.1(TP53x2)[200] This analysis is limited to abnormalities detectableby the specific probes included in the study. The TargetGeneFISH results should be interpreted within the context of afull cytogenetic analysis and hematologic evaluation. TheDNA probe vendor for this study was [employer] ([employer]). REFERENCES:. Cathy,(2013) Adv Exp Med Biol 792:193-214.PMID#[id number] . Jase et al.,(2011) Clin Lab Med31:649-658.PMID#[id number] This test was developed and its performacecharacteristics determined by [employer] ([employer]). It has not been cleared orapproved by the U.S. Food and Drug Administration. Technical Component-Processing performed at [facility], [place] [address], [facility] [id number]. Hot Press Operator, Moira Ramirez M.D., Ph.D. Technical analysis performed at [employer]. [address] [place] [address]. CLIA # [id number]. Hot Press Operator Dr. Anuja M.D., Ph.D. Technical Component-Partial chromosome analysisperformed at [id number], [facility] [address] [address], [id number]. Hot Press Operator, Moira Ramirez M.D., Ph.D.Director Review: Comment: NISHA Reference Range: .Meagan Casillas, PhD, [facility], Professional Component performed by,[id number], [facility] [place] [facility], [id number], [address] [id number]. MedicalDirector, Moira Ramirez MD,PhDPerformed at: [facility] [id number] [place], [place] [id number] Director: Moira Ramirez [facility], Phone: [phone] at: [address] [id number] Director: Jorgito Cunningham PhD, Phone: [phone] Performed By: #### L 3410.9992 ####[facility] [id number] [place], [address] MR/OP.PROVATon 10-31-2024 MR/OP.PROVAT Normal [facility] MR/POSTOP.ANEon 10-31-2024 MR/POSTOP.ANE Normal [facility] MR/[id number] 10-31-2024 MR/POSTOPAN2 Normal [facility] MR/PAT.ANEon 10-28-2024 MR/PAT.ANE Normal [facility] Echo Completeon 10-25-2024 Echo Complete Normal [facility] Echocardiogram study reportO rdered By: Ghada Magana on 10-25-2024 Study report [facility] [address] [place] [address] Echo Complete 10/25/24 1251 MR#: [id number] Acct: [id number] Name: VIOLET HERNANDEZ Rep #: [id number] : 1985 38 From: Ghada Magana MD Attending Dr: ELIZABETH Hernandez atus: REG CLI Ordering Dr: Gibran Rob Date: 10/25/24 Location: [facility] Sex: F C Admitted: Reason For Study Reason For Study: PALPITATIONS Procedure This was a 2D Doppler, Color Flow transthoracic echocardiogram. Exam performed in department. Left Ventricle Normal size and thickness. The left ventricular ejection fraction is 65 %. Normal diastology for age. Right Ventricle Normal right ventricle. Atria The left and right atria are normal. Mitral Valve Trivial mitral valve insufficiency. Tricuspid Valve Trivial tricuspid valve insufficiency. Normal pulmonary artery pressure. Aortic Valve Trisinus/trileaflet aortic valve. Trivial aortic valve insufficiency. Pulmonic Valve Normal pulmonic valve. Great Vessels Normal sized aortic root. Pericardium/Pleural No pericardial effusion. MMode/2D Measurements & Calculations LVIDd: 4.2 cm IVSd: 0.82 cm LVOT diam: 1.8 cm LVIDs: 3.0 cm LVPWd: 0.77 cm LVOT area: 2.4 cm2 RVDd: 3.3 cm FS: 30.1 % asc Aorta Diam: 2.5 cm LAV(MOD-bp): 27.0 ml LVAd ap4: 23.6 cm2 LAV(MOD-bp) Indexed: 17.8 ml/m2 LVLd ap4: 7.5 cm LAV(MOD-sp2): 28.7 ml EDV(MOD-sp4): 62.5 ml LAV(MOD-sp4): 24.9 ml EDV(sp4-el): 62.5 ml LVAs ap4: 12.2 cm2 LVLs ap4: 5.9 cm ESV(MOD-sp4): 21.9 ml ESV(sp4-el): 21.4 ml EF(MOD-sp4): 65.0 % EF(sp4-el): 65.7 % LVAd ap2: 21.6 cm2 SV(MOD-sp4): 40.6 ml SV(MOD-sp2): 32.9 ml LVLd ap2: 7.9 cm SI(MOD-sp4): 26.7 ml/m2 SI(MOD-sp2): 21.6 ml/m2 EDV(MOD-sp2): 53.2 ml EDV(sp2-el): 50.6 ml LVAs ap2: 11.7 cm2 LVLs ap2: 6.2 cm ESV(MOD-sp2): 20.4 ml ESV(sp2-el): 18.7 ml EF(MOD-sp2): 61.7 % SV(sp4-el): 41.1 ml Ao sinus diam: 2.[address] Junction: 2.1 cm LA dimension(2D): 2.9 cm LA A4 area: 12.5 cm2 RA A4 area: 12.5 cm2 TAPSE: 2.1 cm Time Measurements MV dec time: 0.21 sec Doppler Measurements & Calculations MV E max boy: 112.3 cm/sec Lat Peak E' Boy: 17.6 cm/sec Med Peak E' Boy: 10.8 cm/sec MV A max boy: 57.2 cm/sec E/E' lat: 6.4 E/E' med: 10.4 MV E/A: 2.0 MV dec slope: 531.6 cm/sec2 Ao V2 max: 141.6 cm/sec LV V1 max: 129.6 cm/sec Ao max P.0 mmHg LV V1 max P.7 mmHg Ao V2 mean: 91.1 cm/sec LV V1 mean P.5 mmHg Ao mean P.9 mmHg LV V1 mean: 83.5 cm/sec Ao V2 VTI: 33.5 cm LV V1 VTI: 32.9 cm AV (velocity ratio): 0.98 VIDYA(I,D): 2.4 cm2 VIDYA(V,D): 2.2 cm2 SV(LVOT): 80.5 ml PA V2 max: 86.6 cm/sec TR max boy: 222.8 cm/sec TR max P.9 mmHg ECHO/Echo Complete Interpretation Summary The left ventricular ejection fraction is 65 %. Ordering Physician: Gibran Rob Referring Physician: Emily Sanders Performed By: Natalya Lennon RD 10/25/24 1356 Date _ Ghada Magana MD CC: Dr. Emily Sanders MD; ELIZABETH Hernandez ~ Date Dictated: 10/25/24 1251 Date Transcribed: 10/25/24 1356 Roof Truss Detailer: Signed [facility] Work Phone: Pulmonary Visit Reporton Pulmonary Visit Report Normal [facility] Oncology Visit Reporton Oncology Visit Report Normal [facility] [id number] 10-14-2024 [facility]. COMMENT Normal . [facility] Comment on above: Order Comment: [id number] 0FLOW CYTOMETRY-S.HEP-RMT Result Comment: Test Ordered: [id number] Flow panel: Leukemia/LymphomaFlow Interpretation Comment -Y Reference Range: .No significant immunophenotypic abnormality detected.Flow Comment Comment -Y Reference Range: .Previous phenotyping results from 04/18/24 were reviewed and demonstratesimilar findings.Clinical Information Comment -Y Reference Range: .No recent CBC is available for review.Specimen Type Comment -Y Reference Range: .Peripheral bloodAssessment of Leukocytes Comment -Y Reference Range: .No monoclonal B cell population is detected.kappa:lambda ratio 1.6There is no loss of, or aberrant expression of, the oconnor T cell antigens tosuggest a neoplastic T cell process.CD4:CD8 ratio 1.2No circulating blasts are detected.There is no immunophenotypic evidence of abnormal myeloid maturation.Analysis of the lymphocyte population shows: B cells 8%, T cells 78%, NKcells 14%Viability Comment -Y Reference Range: .82%Analysis and Gating Strategy Comment -Y Reference Range: .8 color analysis with CD45/SSC gating Technical-Analysis performed at [facility], [employer], [address], [facility] [address], Director: Moira Ramirez, [facility], Phenotype Chart Comment -Y Reference Range: .CD2 Normal CD3 NormalCD4 Normal CD5 NormalCD7 Normal CD8 OzbtrsZH35 Normal CD11b BxnsymTF96 Normal CD14 OajjgiJX36 Normal CD19 AxvcmsPF07 Normal CD33 PfudvvIS41 Normal CD38 KevfylRP36 Normal CD56 OwsphiMN74 Normal CD64 KgvqtlPH474 Normal HLA-DR NormalKAPPA Normal LAMBDA NormalResulting Path Name Comment -Y Reference Range: .GENE MIRANDA M.D.Comment: Comment TG Reference Range: .Each antibody in this assay was utilized to assess forpotential abnormalities of studied cell populations or tocharacterize identified abnormalities.This test was developed and its performance characteristicsdetermined by [facility]. It has not been cleared or approvedby the U.S. Food and Drug Administration.The FDA has determined that such clearance or approval isnot necessary. This test is used for clinical purposes. Itshould not be regarded as investigational or for research.Performed at: -Y - [facility] [id number] [facility], [facility], [place] [id number] Director: Moira Ramirez [facility], Phone: [phone] at: TG - [facility] [id number] [facility], [place] [id number] Director: Moira Ramirez [facility], Phone: [phone] at: - [facility] [address] [id number] Director: Jorgito Cunningham PhD, Phone: [phone] Performed By: #### L 3410.9992 ####[facility] [address] [place], [place], [id number] Gastroenterology Visit Repor ton 10-12-2024 Gastroenterology Visit Report Normal [facility] Absolute lymphocyte countOrd ered By: Gene Braun on 10-11-2024 Lymphocytes Auto (Unsp spec) [#/Vol] 0.64 10*3/uL Low 0.83-4.51 [facility] Absolute neutrophil countOrd ered By: Gene Braun on 10-11-2024 Neutrophils (Bld) [#/Vol] 1.8 10*3/uL Low 2.0-7.7 [facility] Anion gap in Serum or Plasma Ordered By: Gene Braun on 10-11-2024 Anion gap [Moles/Vol] 12 mmol/L 5-[address] [facility] Automated lymphocyte count a s percentage of total leukocytesOrdered By: Gene Braun on 10-11-2024 Lymphocytes/100 WBC Auto (Unsp spec) 21.8 % 19-41 [facility] BUN/creatinine ratioOrdered By: Gene Braun on 10-11-2024 Urea nitrogen/Creatinine [Mass ratio] 24.6 mg/mg High 10-20 [facility] Basophil percentageOrdered B y: Gene Braun on 10-11-2024 Basophils/100 WBC (Bld) 0.7 % 0-1 [facility] Bilirubin, totalOrdered By: Gene Braun on 10-11-2024 Bilirubin [Mass/Vol] 0.25 mg/dL 0.00-1.30 [facility] Blood manual differential co mment interpretation (narrative result)Ordered By: Gene Braun on 10-11-2024 Manual differential comment Robin (Bld) [Interp] SCANNED [facility] CBC W/Diff, Automatedon PLT EST ADEQUATE Normal ADEQ [facility] Comment on above: Performed By: #### L 504.2610, L100.0100, L500.4050 ####[facility] [address] [place], [address] SMEAR COMMENT SCANNED Normal [facility] Comment on above: Performed By: #### L 504.2610, L100.0100, L500.4050 ####[facility] [address] [place], [address] Carbon dioxide, total [Moles /volume] in Central venous bloodOrdered By: Gene Braun on 10-11-2024 CO2 [Moles/Vol] 24.4 mmol/L 21.0-32.0 [facility] Chloride assayOrdered By: Erin Braun on 10-11-2024 Chloride [Moles/Vol] 103 mmol/L 98-108 [facility] Comprehensive Metabolic Prof ilon 10-11-2024 Albumin [Mass/Vol] 4.5 g/dL Normal 3.5-5.0 [facility] Comment on above: Performed By: #### L 504.2610, L100.0100, L500.4050 ####[facility] [address] [place], [address] Albumin/Globulin [Mass ratio] 2.0 {ratio} Normal 0.9-2.4 [facility] Comment on above: Performed By: #### L 504.2610, L100.0100, L500.4050 ####[facility] [address] [place], [address] ALK PHOS 91 U/L Normal 35-104 [facility] Comment on above: Performed By: #### L 504.2610, L100.0100, L500.4050 ####[facility] [address] [place], [address] ALT [Catalytic activity/Vol] 67 U/L High <=34 [facility] Comment on above: Performed By: #### L 504.2610, L100.0100, L500.4050 ####[facility] [address] [place], [address] AST [Catalytic activity/Vol] 43 U/L High <=31 [facility] Comment on above: Performed By: #### L 504.2610, L100.0100, L500.4050 ####[facility] [address] [place], [address] Bilirubin [Mass/Vol] 0.25 mg/dL Normal 0.00-1.30 [facility] Comment on above: Performed By: #### L 504.2610, L100.0100, L500.4050 ####[facility] [address] [place], [address] BUN/CRE 24.6 RATIO High 10-20 [facility] Comment on above: Performed By: #### L 504.2610, L100.0100, L500.4050 ####[facility] [address] [place], [address] Calcium [Mass/Vol] 9.5 mg/dL Normal 7.6-11.0 [facility] Comment on above: Performed By: #### L 504.2610, L100.0100, L500.4050 ####[facility] [address] [place], [address] Chloride [Moles/Vol] 103 mmol/L Normal 98-108 [facility] Comment on above: Performed By: #### L 504.2610, L100.0100, L500.4050 ####[facility] [address] [place], [address] CO2 [Moles/Vol] 24.4 mmol/L Normal 21.0-32.0 [facility] Comment on above: Performed By: #### L 504.2610, L100.0100, L500.4050 ####[facility] [address] [place], [address] Creatinine [Mass/Vol] 0.69 mg/dL Low 0.70-1.[address] [facility] Comment on above: Performed By: #### L 504.2610, L100.0100, L500.4050 ####[facility] [address] [place], [address] ECRCL 88.72 ml/min Normal 50-250 [facility] Comment on above: Performed By: #### L 504.2610, L100.0100, L500.4050 ####[facility] [address] [place], [address] GAP 12 Normal 5-15 [facility] Comment on above: Performed By: #### L 504.2610, L100.0100, L500.4050 ####[facility] [address] [place], [address] GFR/1.73 sq M.predicted among non-blacks MDRD (S/P/Bld) [Vol rate/Area] 113 mL/min/{1.73_m2} Normal >60 [facility] Comment on above: Result Comment: mL/m in/1.73m2 CKD-EPI Creatinine Equation (2020) Performed By: #### L 504.2610, L100.0100, L500.4050 ####[facility] [address] [place], [address] Globulin (S) [Mass/Vol] 2.3 g/dL Normal 2.2-4.2 [facility] Comment on above: Performed By: #### L 504.2610, L100.0100, L500.4050 ####[facility] [address] [place], [address] Glucose [Mass/Vol] 142 mg/dL High 70-99 [facility] Comment on above: Performed By: #### L 504.2610, L100.0100, L500.4050 ####[facility] [address] [place], [address] Potassium [Moles/Vol] 3.8 mmol/L Normal 3.3-5.[address] [facility] Comment on above: Performed By: #### L 504.2610, L100.0100, L500.4050 ####[facility] [address] [place], [address] Sodium [Moles/Vol] 139 mmol/L Normal 133-145 [facility] Comment on above: Performed By: #### L 504.2610, L100.0100, L500.4050 ####[facility] [address] [place], [address] T PROT 6.8 g/dL Normal 5.9-8.4 [facility] Comment on above: Performed By: #### L 504.2610, L100.0100, L500.4050 ####[facility] [address] [place], [address] Urea nitrogen [Mass/Vol] 17 mg/dL Normal 4-19 [facility] Comment on above: Performed By: #### L 504.2610, L100.0100, L500.4050 ####[facility] [address] [place], [address] Eosinophil percentageOrdered By: Gene Braun on 10-11-2024 Eosinophils/100 WBC (Bld) 2.7 % 0-5 [facility] Erythrocyte distribution wid th ratioOrdered By: Gene Kade on 10-11-2024 Erythrocyte distribution width (RBC) [Ratio] 14.4 % 11.6-14.6 [facility] Erythrocyte distribution wid th standard deviationOrdered By: Gene Kade on 10-11-2024 Erythrocyte distribution width (RBC) [Ratio] 53.9 fl High 35.1-43.9 [facility] Gastroenterology Visit Repor ton 10-11-2024 Gastroenterology Visit Report Normal [facility] Glomerular filtration rate ( GFR) estimation/1.73 sq m using serum, plasma, or whole bOrdered By: Gene Felipe on 10-11-2024 GFR/1.73 sq M.predicted among non-blacks MDRD (S/P/Bld) [Vol rate/Area] 113 mL/min/{1.73_m2} >60 [facility] Comment on above: mL/min/1.73m2 CKD-EP I Creatinine Equation (2020) Hematocrit Auto (Bld) [Volum e fraction]Ordered By: Gene Felipe on 10-11-2024 Hematocrit (Bld) [Volume fraction] 36.9 % Low 37-47 [facility] Hemoglobin measurementOrdere d By: [facility] on 10-11-2024 Hemoglobin (Bld) [Mass/Vol] 12.8 g/dL 12.0-15.0 [facility] Immature granulocytes/100 WB C Auto (Bld)Ordered By: Gene Kade on 10-11-2024 Immature granulocytes/100 WBC (Bld) 0.300 % 0.0-0.9 [facility] Comment on above: IG% - Immature Granu locytes (promyelocytes, myelocytes and metamyelocytes) > 1% indicates that a LEFT SHIFT is Present. LDHon 10-11-2024 LDH 199 U/L Normal 84-246 [facility] Comment on above: Order Comment: 1 Result Comment: Hemo lysis present, Results??could be affected.?? Performed By: #### L 504.2610, L100.0100, L500.4050 ####[facility] [address] [place], [address] Laboratory - Chemistry and C hemistry - challengeOrdered By: Gene Braun on 10-11-2024 AST [Catalytic activity/Vol] 43 U/L High <32 [facility] Lactate dehydrogenase (LDH) measurementOrdered By: Gene Braun on 10-11-2024 LDH [Catalytic activity/Vol] 199 U/L 84-246 [facility] Comment on above: Hemolysis present, R esults could be affected. MCV (mean corpuscular volume ) determinationOrdered By: Gene Braun on 10-11-2024 MCV (RBC) [Entitic vol] 101.1 fL High 81-99 [facility] Mean corpuscular hemoglobin (MCH) determinationOrdered By: Gene Braun on 10-11-2024 MCH (RBC) [Entitic mass] 35.1 pg High 27.0-32.0 [facility] Mean corpuscular hemoglobin concentration (MCHC) determinationOrdered By: Gene Braun on 10-11-2024 MCHC (RBC) [Mass/Vol] 34.7 g/dL 32-[address] [facility] Mean platelet volume determi nationOrdered By: Gene Braun on 10-11-2024 Platelet mean volume (Bld) [Entitic vol] 10.5 fL 6.2-12.0 [facility] Monocyte percentageOrdered B y: Gene Braun on 10-11-2024 Monocytes/100 WBC (Bld) 14.3 % High 0-10 [facility] Neutrophil percentageOrdered By: Gene Braun on 10-11-2024 Neutrophils/100 WBC (Bld) 60.2 % 47-70 [facility] Nucleated red blood cell per centageOrdered By: Gene Braun on 10-11-2024 Nucleated RBC/100 WBC (Bld) [Ratio] 0 % 0-5 [facility] Platelet countOrdered By: Erin Braun on 10-11-2024 Platelets (Bld) [#/Vol] 160 10*3/uL 150-450 [facility] Platelet estimateOrdered By: Gene Braun on 10-11-2024 Platelets LM Ql (Bld) ADEQUATE ADEQ [facility] Potassium measurement (mass/ volume)Ordered By: Gene Braun on 10-11-2024 Potassium (Unsp spec) [Mass/Vol] 3.8 mmol/L 3.3-5.1 [facility] RBC Auto (Bld) [#/Vol]Ordere d By: Gene Braun on 10-11-2024 RBC (Bld) [#/Vol] 3.65 10*6/uL Low 4.2-5.4 [facility] Serum creatinine measurement (mass/volume)Ordered By: Gene Braun on 10-11-2024 Creatinine [Mass/Vol] 0.69 mg/dL Low 0.70-1.[address] [facility] Serum globulin measurementOr dered By: Gene Braun on 10-11-2024 Globulin (S) [Mass/Vol] 2.3 g/dL 2.2-4.2 [facility] Serum glucose measurement (m ass/volume)Ordered By: Gene Braun on 10-11-2024 Glucose [Mass/Vol] 142 mg/dL High 70-99 [facility] Serum or plasma alanine valencia otransferase (ALT) measurementOrdered By: Gene Braun on 10-11-2024 ALT [Catalytic activity/Vol] 67 U/L High <35 [facility] Serum or plasma albumin ana maria urement (mass/volume)Ordered By: Gene Braun on 10-11-2024 Albumin [Mass/Vol] 4.5 g/dL 3.5-5.0 [facility] Serum or plasma albumin/glob ulin mass ratioOrdered By: Gene Braun on 10-11-2024 Albumin/Globulin [Mass ratio] 2.0 {ratio} 0.9-2.4 [facility] Serum or plasma alkaline juana sphatase measurementOrdered By: Gene Braun on 10-11-2024 ALP [Catalytic activity/Vol] 91 U/L 35-104 [facility] Serum or plasma calcium ana maria urement (mass/volume)Ordered By: Gene Braun on 10-11-2024 Calcium [Mass/Vol] 9.5 mg/dL 7.6-11.0 [facility] Serum or plasma urea nitroge n measurement (mass/volume)Ordered By: Gene Braun on 10-11-2024 Urea nitrogen [Mass/Vol] 17 mg/dL 4-19 [facility] Sodium levelOrdered By: Luke Braun on 10-11-2024 Sodium [Moles/Vol] 139 mmol/L 133-145 [facility] Total proteinOrdered By: Pop Braun on 10-11-2024 Protein [Mass/Vol] 6.8 g/dL 5.9-8.4 [facility] White blood cell (WBC) count Ordered By: Gene Kade on 10-11-2024 WBC (Bld) [#/Vol] 2.9 10*3/uL Low 4.4-11.0 [facility] BACTERIAL VAGINOSIS NAATon 0 09-30-2024 Lactobacillus crispatus+gasseri+yonatan enii + Gardnerella vaginalis + Atopobium vaginae rRNA MALKA+probe Ql (Vag fld) Not detected Normal Not detected [facility] Comment on above: Order Comment: Speci men Type: SWABOrdering Facility: [facility] Address: [address] [place] [address] Performed By: #### B VAMP, CVTV ####[facility] LABCLIA [id number] [address] [place] JORDYN/TRICHOMONAS NAATon 0 09-30-2024 C. glabrata RNA MALKA+probe Ql (Vag fld) Not detected Normal Not detected [facility] Comment on above: Order Comment: Speci men Type: SWABOrdering Facility: [facility] Address: [address] [place] [address] Performed By: #### B VAMP, CVTV ####[facility] LABCLIA [id number] [address] [place] Jordyn sp DNA MALKA+probe Ql (Vag fld) Not detected Normal Not detected [facility] Comment on above: Order Comment: Speci men Type: SWABOrdering Facility: [facility] Address: [address] [place] [address] Result Comment: The Jordyn species group target includes C. albicans, C. tropicalis, C. parapsilosis, and C. dubliniensis. Performed By: #### B VAMP, CVTV ####[facility] LABCLIA [id number] [address] [place] T. vaginalis DNA MALKA+probe Ql (Unsp spec) Not detected Normal Not detected [facility] Comment on above: Order Comment: Speci men Type: SWABOrdering Facility: [facility] Address: [address] [place] [address] Performed By: #### B VAMP, CVTV ####[facility] LABCLIA [id number] [address] [place] CNOVon 09-30-2024 CNOV Office Visit (OBGYWM ) VILOET HERNANDEZ ([id number]) 1985 F Date Time Provider Department 09/30/24 1:30 PM SHERLY NG OBGYWMatt During your visit today, we recorded the following information about you: Pulse Respiration Blood pressure Weight 60/minute 14/minute 96/60 60.8 kg Height 1.473 m Sherly Ng APRN.CNP 09/30/2024 5:19 PM 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 Patient/authorized field representative agreed to proceed CHIEF COMPLAINT: The patient is a 38-year-old female with a history of anxiety disorder presenting with pruritus in the vaginal and rectal areas. HPI: Vaginal and Rectal Pruritus - Onset earlier this summer, coinciding with warmer weather. - Symptoms worsen with heat, sweating, and at night. - Has tried various topical treatments, including coconut oil, Medicine Mama (a natural product with beeswax), and Desitin, with only temporary relief. - Noticed a white film on the skin in the affected areas, more pronounced when sweating. - Observed white patches of skin in the vaginal and rectal areas. - Reports light pink discharge when wiping, described as almost like it's got a little bit of blood in it. - Has been sexually active with her since the onset of symptoms, noting increased discomfort during intercourse despite using lubricant. - No history of eczema, lichen planus, or other skin conditions. - Last yeast infection was over 12 years ago, prior to the adoption of her 12-year-old son. Antibiotic Use - Recent courses of antibiotics: - Amoxicillin in mid-June for perioral dermatitis. - Ciprofloxacin at the end of August for a nail puncture injury. - Cephalexin on September 10 for a UTI. - Reports increased severity of itching following antibiotic treatments. HISTORY: OB History Gravida0 Para0 Term0 Preterm0 AB0 Living0 SAB0 IAB0 Ectopic0 Multiple0 Live Births0 [employer] History LMP: 06/09/2022 (Within Days), Hysterectomy Age at Menarche: 10 Age at First : Age at Menopause: [employer] History Comments: Sexual Activity: Yes; Male Contraception: Surgical PAST MEDICAL HISTORY Diagnosis Date Anxiety Depression Leukopenia Metabolic dysfunction-associated steatohepatitis (MASH) Mitral prolapse NICA (obstructive sleep apnea) 2024 mild, being fitted for oral device Premature ovarian failure PAST SURGICAL HISTORY Procedure Laterality Date BONE MARROW BIOPSY x 2 COLONOSCOPY SCREENING 11/05/2023 normal ORAL SURGERY PROCEDURE TLH W/T/O 250 G OR LESS 11/10/2023 TOTAL ABDOM HYSTERECTOMY 11/10/2023 FAMILY HISTORY Problem Relation Age of Onset Cataract Mother Macular Degen Mother Hypertension Father Diabetes Father T2DM No Known Problems Sister No Known Problems Brother Breast Cancer Maternal Grandmother 55 Skin Cancer Maternal Grandmother Diabetes Maternal Grandmother Heart disease Maternal Grandfather Heart disease Paternal Grandmother Stroke Paternal Grandfather SOCIAL HISTORY[1] Current Outpatient Medications Medication Sig rosuvastatin (CRESTOR) 10 mg tablet Take 0.5 tablets by mouth once daily. estradiol (SHAYE) 0.1 mg/24 hr patch APPLY 1 PATCH TOPICALLY TWICE A WEEK DIRECTED cyanocobalamin (VITAMIN B-12) 1,000 mcg tab Take 1,000 mcg by mouth once daily. multivit,thx,calcium,ir on,mins (MULTIVITAMIN AND MINERAL ORAL) Take by mouth. vitamin E mixed/tocotrienol (VITAMIN E COMPLEX ORAL) Take 1 capsule by mouth once daily. fluvoxaMINE Maleate (LUVOX) 25 mg tablet Take 100 mg by mouth once daily. fluconazole (DIFLUCAN) 150 mg tablet Take 1 tablet by mouth one time only for 1 dose. clobetasol (TEMOVATE) 0.05 % ointment Apply 1 application to affected area as directed. TO AFFECTED AREA. Clobetasol ointment twice daily x 4 weeks then at night x 4 weeks then every other day x 4 weeks then taper to 1-2 times/week. ZINC ORAL Take by mouth. OTC PRODUCT Zenuim supplement No current facility-administered medications for this visit. ALLERGIES No Known Allergies REVIEW OF SYSTEMS: Gastrointestinal: (+) rectal pruritus, (+) rectal bleeding Genitourinary: (+) vaginal pruritus, (+) dyspareunia, (+) vaginal spotting Skin: (+) hypopigmented vulvar patches Objective SENSITIVE EXAM: The sensitive examination was discussed with the Patient or Patient's Authorized Roller Hand. As applicable, any other physician, advance practice provider, medical student, or other health professional student that will be observing or involved in the sensitive examination for educational or training purposes was discussed with the Patient or Authorized Roller Hand. The Patient or Authorized Rep (more content not included)... Normal [facility] Absolute lymphocyte countOrd ered By: Gulshan Jules on 09-23-2024 Lymphocytes Auto (Unsp spec) [#/Vol] 0.63 10*3/uL Low 0.83-4.51 [facility] Absolute neutrophil countOrd ered By: Gulshan Jules on 09-23-2024 Neutrophils (Bld) [#/Vol] 1.3 10*3/uL Low 2.0-7.7 [facility] Anion gap in Serum or Plasma Ordered By: Gulshan Jules on 09-23-2024 Anion gap [Moles/Vol] 11 mmol/L - [facility] Automated lymphocyte count a s percentage of total leukocytesOrdered By: Gulshan Jules on 09-23-2024 Lymphocytes/100 WBC Auto (Unsp spec) 24.7 % - [facility] BUN/creatinine ratioOrdered By: Gulshan Jules on 09-23-2024 Urea nitrogen/Creatinine [Mass ratio] 14.6 mg/mg 10- [facility] Basophil percentageOrdered B y: Gulshan Jules on 09-23-2024 Basophils/100 WBC (Bld) 0.4 % 0-1 [facility] Bilirubin directOrdered By: Gulshan Julse on 09-23-2024 Bilirubin.direct [Mass/Vol] 0.20 mg/dL 0.00-0.30 [facility] Bilirubin, Directon 09-24-19 25 Bilirubin.direct [Mass/Vol] 0.20 mg/dL Normal 0.00-0.30 [facility] Comment on above: Performed By: #### L 500.4100, L501.6710, L100.0100, L501.4700, L300.3900, L501.9985, L500.4050 ####[facility] [address] [place], [place], [phone]) Bilirubin, totalOrdered By: Gulshan Jules on 09-23-2024 Bilirubin [Mass/Vol] 0.39 mg/dL 0.00-1.30 [facility] CBC W/Diff, Automatedon 09-09 Absolute Lymph 0.63 X10 3/uL Low 0.83-4.51 [facility] Comment on above: Performed By: #### L 500.4100, L501.6710, L100.0100, L501.4700, L300.3900, L501.9985, L500.4050 ####[facility] [address] [place], [place], [phone] Absolute Neut 1.3 X10 3/uL Low 2.0-7.7 [facility] Comment on above: Performed By: #### L 500.4100, L501.6710, L100.0100, L501.4700, L300.3900, L501.9985, L500.4050 ####[facility] [address] [place], [address] Basophils/100 WBC (Bld) 0.4 % Normal 0-1 [facility] Comment on above: Performed By: #### L 500.4100, L501.6710, L100.0100, L501.4700, L300.3900, L501.9985, L500.4050 ####[facility] [address] [place], [address] Eosinophils/100 WBC (Bld) 3.1 % Normal 0-5 [facility] Comment on above: Performed By: #### L 500.4100, L501.6710, L100.0100, L501.4700, L300.3900, L501.9985, L500.4050 ####[facility] [address] [place], [address] Erythrocyte distribution width (RBC) [Ratio] 14.4 % Normal 11.6-14.6 [facility] Comment on above: Performed By: #### L 500.4100, L501.6710, L100.0100, L501.4700, L300.3900, L501.9985, L500.4050 ####[facility] [address] [place], [address] Hematocrit (Bld) [Volume fraction] 38.6 % Normal 37-47 [facility] Comment on above: Performed By: #### L 500.4100, L501.6710, L100.0100, L501.4700, L300.3900, L501.9985, L500.4050 ####[facility] [address] [place], [address] Hemoglobin (Bld) [Mass/Vol] 13.2 g/dL Normal 12.0-15.0 [facility] Comment on above: Performed By: #### L 500.4100, L501.6710, L100.0100, L501.4700, L300.3900, L501.9985, L500.4050 ####[facility] [address] [place], [address] IG% 0.000 Normal 0.0-0.9 [facility] Comment on above: Result Comment: IG% - Immature Granulocytes (promyelocytes, myelocytes andmetamyelocytes) > 1% indicates that a LEFT SHIFT is Present. Performed By: #### L 500.4100, L501.6710, L100.0100, L501.4700, L300.3900, L501.9985, L500.4050 ####[facility] [address] [place], [address] Lymphocytes/100 WBC (Bld) 24.7 % Normal 19-41 [facility] Comment on above: Performed By: #### L 500.4100, L501.6710, L100.0100, L501.4700, L300.3900, L501.9985, L500.4050 ####[facility] [address] [place], [address] MCH (RBC) [Entitic mass] 34.5 pg High 27.0-32.0 [facility] Comment on above: Performed By: #### L 500.4100, L501.6710, L100.0100, L501.4700, L300.3900, L501.9985, L500.4050 ####[facility] [address] [place], [address] MCHC (RBC) [Mass/Vol] 34.2 g/dL Normal 32-[address] [facility] Comment on above: Performed By: #### L 500.4100, L501.6710, L100.0100, L501.4700, L300.3900, L501.9985, L500.4050 ####[facility] [address] [place], [address] MCV (RBC) [Entitic vol] 100.8 fL High 81-99 [facility] Comment on above: Performed By: #### L 500.4100, L501.6710, L100.0100, L501.4700, L300.3900, L501.9985, L500.4050 ####[facility] [address] [place], [address] Monocytes/100 WBC (Bld) 19.6 % High 0-10 [facility] Comment on above: Performed By: #### L 500.4100, L501.6710, L100.0100, L501.4700, L300.3900, L501.9985, L500.4050 ####[facility] [address] [place], [address] Neutrophils/100 WBC (Bld) 52.2 % Normal 47-70 [facility] Comment on above: Performed By: #### L 500.4100, L501.6710, L100.0100, L501.4700, L300.3900, L501.9985, L500.4050 ####[facility] [address] [place], [address] Nucleated RBC (Bld) [#/Vol] 0 10*3/uL Normal 0-5 [facility] Comment on above: Performed By: #### L 500.4100, L501.6710, L100.0100, L501.4700, L300.3900, L501.9985, L500.4050 ####[facility] [address] [place], [address] Platelet mean volume (Bld) [Entitic vol] 10.1 fL Normal 6.2-12.0 [facility] Comment on above: Performed By: #### L 500.4100, L501.6710, L100.0100, L501.4700, L300.3900, L501.9985, L500.4050 ####[facility] [address] [place], [address] Platelets (Bld) [#/Vol] 155 10*3/uL Normal 150-450 [facility] Comment on above: Performed By: #### L 500.4100, L501.6710, L100.0100, L501.4700, L300.3900, L501.9985, L500.4050 ####[facility] [address] [place], [address] RBC (Bld) [#/Vol] 3.83 10*6/uL Low 4.2-5.4 [facility] Comment on above: Performed By: #### L 500.4100, L501.6710, L100.0100, L501.4700, L300.3900, L501.9985, L500.4050 ####[facility] [address] [place], [address] RDW SD 52.3 fl High 35.1-43.9 [facility] Comment on above: Performed By: #### L 500.4100, L501.6710, L100.0100, L501.4700, L300.3900, L501.9985, L500.4050 ####[facility] [address] [place], [address] WBC (Bld) [#/Vol] 2.6 10*3/uL Low 4.4-11.0 [facility] Comment on above: Performed By: #### L 500.4100, L501.6710, L100.0100, L501.4700, L300.3900, L501.9985, L500.4050 ####[facility] [address] [place], [address] CRPon 09-23-2024 C-REACTIVE PROT < 3.00 Normal 0.0-3.0 [facility] Comment on above: Performed By: #### L 500.4100, L501.6710, L100.0100, L501.4700, L300.3900, L501.9985, L500.4050 ####[facility] [address] [place], [address] Calculated very low density lipoprotein (VLDL) cholesterol measurementOrdered By: Gulshan Jules on 09-23-2024 Calculated very low density lipoprotein (VLDL) cholesterol measurement 22 mg/dL 5-40 [facility] Carbon dioxide, total [Moles /volume] in Central venous bloodOrdered By: Gulshan Jules on 09-23-2024 CO2 [Moles/Vol] 24.9 mmol/L 21.0-32.0 [facility] Cardiology Visit Reporton Cardiology Visit Report Normal [facility] Chloride assayOrdered By: Denis Jules on 09-23-2024 Chloride [Moles/Vol] 103 mmol/L 98-108 [facility] Comprehensive Metabolic Prof ilon 09-23-2024 Albumin [Mass/Vol] 4.5 g/dL Normal 3.5-5.0 [facility] Comment on above: Performed By: #### L 500.4100, L501.6710, L100.0100, L501.4700, L300.3900, L501.9985, L500.4050 ####[facility] [address] [place], [address] Albumin/Globulin [Mass ratio] 1.9 {ratio} Normal 0.9-2.4 [facility] Comment on above: Performed By: #### L 500.4100, L501.6710, L100.0100, L501.4700, L300.3900, L501.9985, L500.4050 ####[facility] [address] [place], [address] ALK PHOS 88 U/L Normal 35-104 [facility] Comment on above: Performed By: #### L 500.4100, L501.6710, L100.0100, L501.4700, L300.3900, L501.9985, L500.4050 ####[facility] [address] [place], [address] ALT [Catalytic activity/Vol] 73 U/L High <=34 [facility] Comment on above: Performed By: #### L 500.4100, L501.6710, L100.0100, L501.4700, L300.3900, L501.9985, L500.4050 ####[facility] [address] [place], [address] AST [Catalytic activity/Vol] 41 U/L High <=31 [facility] Comment on above: Performed By: #### L 500.4100, L501.6710, L100.0100, L501.4700, L300.3900, L501.9985, L500.4050 ####[facility] [address] [place], [address] Bilirubin [Mass/Vol] 0.39 mg/dL Normal 0.00-1.30 [facility] Comment on above: Performed By: #### L 500.4100, L501.6710, L100.0100, L501.4700, L300.3900, L501.9985, L500.4050 ####[facility] [address] [place], [address] BUN/CRE 14.6 RATIO Normal 10-20 [facility] Comment on above: Performed By: #### L 500.4100, L501.6710, L100.0100, L501.4700, L300.3900, L501.9985, L500.4050 ####[facility] [address] [place], [address] Calcium [Mass/Vol] 9.7 mg/dL Normal 7.6-11.0 [facility] Comment on above: Performed By: #### L 500.4100, L501.6710, L100.0100, L501.4700, L300.3900, L501.9985, L500.4050 ####[facility] [address] [place], [address] Chloride [Moles/Vol] 103 mmol/L Normal 98-108 [facility] Comment on above: Performed By: #### L 500.4100, L501.6710, L100.0100, L501.4700, L300.3900, L501.9985, L500.4050 ####[facility] [address] [place], [address] CO2 [Moles/Vol] 24.9 mmol/L Normal 21.0-32.0 [facility] Comment on above: Performed By: #### L 500.4100, L501.6710, L100.0100, L501.4700, L300.3900, L501.9985, L500.4050 ####[facility] [address] [place], [address] Creatinine [Mass/Vol] 0.72 mg/dL Normal 0.70-1.[address] [facility] Comment on above: Performed By: #### L 500.4100, L501.6710, L100.0100, L501.4700, L300.3900, L501.9985, L500.4050 ####[facility] [address] [place], [address] GAP 11 Normal 5-15 [facility] Comment on above: Performed By: #### L 500.4100, L501.6710, L100.0100, L501.4700, L300.3900, L501.9985, L500.4050 ####[facility] [address] [place], [address] GFR/1.73 sq M.predicted among non-blacks MDRD (S/P/Bld) [Vol rate/Area] 110 mL/min/{1.73_m2} Normal >60 [facility] Comment on above: Result Comment: mL/m in/1.73m2 CKD-EPI Creatinine Equation (2020) Performed By: #### L 500.4100, L501.6710, L100.0100, L501.4700, L300.3900, L501.9985, L500.4050 ####[facility] [address] [place], [address] Globulin (S) [Mass/Vol] 2.3 g/dL Normal 2.2-4.2 [facility] Comment on above: Performed By: #### L 500.4100, L501.6710, L100.0100, L501.4700, L300.3900, L501.9985, L500.4050 ####[facility] [address] [place], [address] Glucose [Mass/Vol] 72 mg/dL Normal 70-99 [facility] Comment on above: Performed By: #### L 500.4100, L501.6710, L100.0100, L501.4700, L300.3900, L501.9985, L500.4050 ####[facility] [address] [place], [address] Potassium [Moles/Vol] 4.2 mmol/L Normal 3.3-5.[address] [facility] Comment on above: Performed By: #### L 500.4100, L501.6710, L100.0100, L501.4700, L300.3900, L501.9985, L500.4050 ####[facility] [address] [place], [address] Sodium [Moles/Vol] 139 mmol/L Normal 133-145 [facility] Comment on above: Performed By: #### L 500.4100, L501.6710, L100.0100, L501.4700, L300.3900, L501.9985, L500.4050 ####[facility] [address] [place], [address] T PROT 6.8 g/dL Normal 5.9-8.4 [facility] Comment on above: Performed By: #### L 500.4100, L501.6710, L100.0100, L501.4700, L300.3900, L501.9985, L500.4050 ####[facility] [address] [place], [address] Urea nitrogen [Mass/Vol] 11 mg/dL Normal 4-19 [facility] Comment on above: Performed By: #### L 500.4100, L501.6710, L100.0100, L501.4700, L300.3900, L501.9985, L500.4050 ####[facility] [address] [place], [address] Eosinophil percentageOrdered By: Gulshan Jules on 09-23-2024 Eosinophils/100 WBC (Bld) 3.1 % 0-5 [facility] Erythrocyte distribution wid th ratioOrdered By: Gulshan Jules on 09-23-2024 Erythrocyte distribution width (RBC) [Ratio] 14.4 % 11.6-14.6 [facility] Erythrocyte distribution wid th standard deviationOrdered By: Gulshan Jules on 09-23-2024 Erythrocyte distribution width (RBC) [Ratio] 52.3 fl High 35.1-43.9 [facility] Glomerular filtration rate ( GFR) estimation/1.73 sq m using serum, plasma, or whole bOrdered By: Gulshan Jules on 09-23-2024 GFR/1.73 sq M.predicted among non-blacks MDRD (S/P/Bld) [Vol rate/Area] 110 mL/min/{1.73_m2} >60 [facility] Comment on above: mL/min/1.73m2 CKD-EP I Creatinine Equation (2020) Hematocrit Auto (Bld) [Volum e fraction]Ordered By: Gulshan Jules on 09-23-2024 Hematocrit (Bld) [Volume fraction] 38.6 % 37-47 [facility] Hemoglobin A1con 09-23-2024 HbA1c (Bld) [Mass fraction] 5.4 % Normal <=5.6 [facility] Comment on above: Result Comment: Norm al < 5.7 % Prediabetic 5.7 - 6.4 % Diabetic >or= 6.5 % Please note range changes. Performed By: #### L 500.4100, L501.6710, L100.0100, L501.4700, L300.3900, L501.9985, L500.4050 ####[facility] [address] [place], [place], [id number] Hemoglobin A1c percentageOrd ered By: Gulshan Jules on 09-23-2024 HbA1c (Bld) [Mass fraction] 5.4 % <5.7 [facility] Comment on above: Normal < 5.7 % Predi abetic 5.7 - 6.4 % Diabetic >or= 6.5 % Please note range changes. Hemoglobin measurementOrdere d By: Gulshan Jules on 09-23-2024 Hemoglobin (Bld) [Mass/Vol] 13.2 g/dL 12.0-15.0 [facility] Immature granulocytes/100 WB C Auto (Bld)Ordered By: Gulshan Jules on 09-23-2024 Immature granulocytes/100 WBC (Bld) 0.000 % 0.0-0.9 [facility] Comment on above: IG% - Immature Granu locytes (promyelocytes, myelocytes and metamyelocytes) > 1% indicates that a LEFT SHIFT is Present. International normalized rat io (INR) calculationOrdered By: Gulshan Jules on 09-23-2024 INR Coag (Bld) [Relative time] 1.0 {INR} [facility] LDL calc ser/plasOrdered By: Gulshan Jules on 09-23-2024 Cholesterol in LDL [Mass/Vol] 36 mg/dL [facility] Comment on above: Mxqixmorgk=211-106 m g/dL & Higher Ziuh=909 mg/dL or greaterFriedwald Equation for LDL-C Laboratory - Chemistry and C hemistry - challengeOrdered By: Gulshan Jules on 09-23-2024 AST [Catalytic activity/Vol] 41 U/L High <32 [facility] Lipid Profileon 09-23-2024 CHOL:HDL 1.80 Normal [facility] Comment on above: Performed By: #### L 500.4100, L501.6710, L100.0100, L501.4700, L300.3900, L501.9985, L500.4050 ####[facility] [address] [place], [address] Cholesterol [Mass/Vol] 131 mg/dL Normal <=200 [facility] Comment on above: Result Comment: Chol esterol level, Desirable <200 mg/dLBorderline high cholesterol 200-239 mg/dLHigh cholesterol >=240 mg/dLRecommendations of the NCEP Adult Treatment Panel for thefollowing risk-cutoff thresholds for the [place]. Performed By: #### L 500.4100, L501.6710, L100.0100, L501.4700, L300.3900, L501.9985, L500.4050 ####[facility] [address] [place], [address] Cholesterol in HDL [Mass/Vol] 73 mg/dL Normal [facility] Comment on above: Result Comment: Aria onal Cholesterol Education Program (NCEP) guidelines:<40 mg/dL: Low HDL-cholesterol (major risk factor for CHD)>= 60 mg/dL: High HDL-cholesterol (negative risk factor forCHD)HDL-cholesterol is affected by a number of factors, e.g.smoking, exercise, hormones, sex and age. Performed By: #### L 500.4100, L501.6710, L100.0100, L501.4700, L300.3900, L501.9985, L500.4050 ####[facility] [address] [place], [address] Cholesterol in LDL [Mass/Vol] 36 mg/dL Normal [facility] Comment on above: Result Comment: Bord gfdmag=632-785 mg/dL Higher Vtxe=735 mg/dL or greaterFriedwald Equation for LDL-C Performed By: #### L 500.4100, L501.6710, L100.0100, L501.4700, L300.3900, L501.9985, L500.4050 ####[facility] [address] [place], [address] Cholesterol in VLDL [Mass/Vol] 22 mg/dL Normal 5-40 [facility] Comment on above: Performed By: #### L 500.4100, L501.6710, L100.0100, L501.4700, L300.3900, L501.9985, L500.4050 ####[facility] [address] [place], [address] Triglyceride [Mass/Vol] 111 mg/dL Normal [facility] Comment on above: Result Comment: The drugs N-Acetylcysteine and Metamizole may falselydepress this assay.Normal range: <150 mg/dLBorderline High: 150-199 mg/dLHigh: 200-499 mg/dLVery High: >500 mg/dL Performed By: #### L 500.4100, L501.6710, L100.0100, L501.4700, L300.3900, L501.9985, L500.4050 ####[facility] [address] [place], [address] MCV (mean corpuscular volume ) determinationOrdered By: Gulshna Jules on 09-23-2024 MCV (RBC) [Entitic vol] 100.8 fL High 81-99 [facility] Magnesiumon 09-23-2024 Magnesium [Mass/Vol] 2.2 mg/dL Normal 1.5-2.2 [facility] Comment on above: Performed By: #### L 501.9520, L501.5200 ####[facility] [address] [place], [address] Magnesium measurement (mass/ volume)Ordered By: Gibran Rob on 09-23-2024 Magnesium (Unsp spec) [Mass/Vol] 2.2 mg/dL 1.5-2.2 [facility] Mean corpuscular hemoglobin (MCH) determinationOrdered By: Gulshan Jules on 09-23-2024 MCH (RBC) [Entitic mass] 34.5 pg High 27.0-32.0 [facility] Mean corpuscular hemoglobin concentration (MCHC) determinationOrdered By: Gulshan Jules on 09-23-2024 MCHC (RBC) [Mass/Vol] 34.2 g/dL 32-[address] [facility] Mean platelet volume determi nationOrdered By: Gulshan Jules on 09-23-2024 Platelet mean volume (Bld) [Entitic vol] 10.1 fL 6.2-12.0 [facility] Monocyte percentageOrdered B y: Gulshan Jules on 09-23-2024 Monocytes/100 WBC (Bld) 19.6 % High 0-10 [facility] Neutrophil percentageOrdered By: Gulshan Jules on 09-23-2024 Neutrophils/100 WBC (Bld) 52.2 % 47-70 [facility] Nucleated red blood cell per centageOrdered By: Gulshan Jules on 09-23-2024 Nucleated RBC/100 WBC (Bld) [Ratio] 0 % 0-5 [facility] Platelet countOrdered By: Denis Jules on 09-23-2024 Platelets (Bld) [#/Vol] 155 10*3/uL 150-450 [facility] Potassium measurement (mass/ volume)Ordered By: Gulshan Jules on 09-23-2024 Potassium (Unsp spec) [Mass/Vol] 4.2 mmol/L 3.3-5.1 [facility] Prothrombin Time w/INRon INR Coag (PPP) [Relative time] 1.0 {INR} Normal [facility] Comment on above: Performed By: #### L 500.4100, L501.6710, L100.0100, L501.4700, L300.3900, L501.9985, L500.4050 ####[facility] [address] [place], [place], [id number] PT Coag (PPP) [Time] 13.3 s Normal 11.7-14.9 [facility] Comment on above: Performed By: #### L 500.4100, L501.6710, L100.0100, L501.4700, L300.3900, L501.9985, L500.4050 ####[facility] [address] [place], [address] Prothrombin timeOrdered By: Gulshan Jules on 09-23-2024 PT Coag (PPP) [Time] 13.3 s 11.7-14.9 [facility] RBC Auto (Bld) [#/Vol]Ordere d By: Gulshan Jules on 09-23-2024 RBC (Bld) [#/Vol] 3.83 10*6/uL Low 4.2-5.4 [facility] Screening total cholesterol/ high density lipoprotein (HDL) cholesterol ratioOrdered By: Gulshan Jules on 09-23-2024 Cholesterol.total/Chol esterol in HDL [Mass ratio] 1.80 {ratio} [facility] Serum creatinine measurement (mass/volume)Ordered By: Gulshan Jules on 09-23-2024 Creatinine [Mass/Vol] 0.72 mg/dL 0.70-1.[address] [facility] Serum globulin measurementOr dered By: Gulshan Jules on 09-23-2024 Globulin (S) [Mass/Vol] 2.3 g/dL 2.2-4.2 [facility] Serum glucose measurement (m ass/volume)Ordered By: Gulshan Jules on 09-23-2024 Glucose [Mass/Vol] 72 mg/dL 70-99 [facility] Serum or plasma C reactive p rotein measurement (mass/volume)Ordered By: Gulshan Jules on 09-23-2024 CRP [Mass/Vol] mg/L 0.0-3.0 [facility] Serum or plasma alanine valencia otransferase (ALT) measurementOrdered By: Gulshan Jules on 09-23-2024 ALT [Catalytic activity/Vol] 73 U/L High <35 [facility] Serum or plasma albumin ana maria urement (mass/volume)Ordered By: Gulshan Jules on 09-23-2024 Albumin [Mass/Vol] 4.5 g/dL 3.5-5.0 [facility] Serum or plasma albumin/glob ulin mass ratioOrdered By: Gulshan Jules on 09-23-2024 Albumin/Globulin [Mass ratio] 1.9 {ratio} 0.9-2.4 [facility] Serum or plasma alkaline juana sphatase measurementOrdered By: Gulshan Jules on 09-23-2024 ALP [Catalytic activity/Vol] 88 U/L 35-104 [facility] Serum or plasma calcium ana maria urement (mass/volume)Ordered By: Gulshan Jules on 09-23-2024 Calcium [Mass/Vol] 9.7 mg/dL 7.6-11.0 [facility] Serum or plasma cholesterol in HDL measurement (mass/volume)Ordered By: Gulshan Jules on 09-23-2024 Cholesterol in HDL [Mass/Vol] 73 mg/dL >40 [facility] Comment on above: National Cholesterol Education Program (NCEP) guidelines:<40 mg/dL: Low HDL-cholesterol (major risk factor for CHD)>= 60 mg/dL: High HDL-cholesterol (negative risk factor for CHD)HDL-cholesterol is affected by a number of factors, e.g. smoking, exercise, hormones, sex and age. Serum or plasma cholesterol measurement (mass/volume)Ordered By: Gulshan Jules on 09-23-2024 Cholesterol [Mass/Vol] 131 mg/dL <201 [facility] Comment on above: Cholesterol level, D esirable <200 mg/dLBorderline high cholesterol 200-239 mg/dLHigh cholesterol >=240 mg/dLRecommendations of the NCEP Adult Treatment Panel for the following risk-cutoff thresholds for the [place] population. Serum or plasma urea nitroge n measurement (mass/volume)Ordered By: Gulshan Jules on 09-23-2024 Urea nitrogen [Mass/Vol] 11 mg/dL 4-19 [facility] Sodium levelOrdered By: Margaux Jules on 09-23-2024 Sodium [Moles/Vol] 139 mmol/L 133-145 [facility] TSH DL <= 0.005 mIU/L QnOrde red By: Gibran Rob on 09-23-2024 TSH Qn 4.060 uIU/mL 0.300-4.200 [facility] Thyroid Stim Hormone (TSH)on 09-23-2024 TSH 4.060 uIU/mL Normal 0.300-4.200 [facility] Comment on above: Performed By: #### L 501.9520, L501.5200 ####[facility] [address] [place], [address] Total proteinOrdered By: Felipe Jules on 09-23-2024 Protein [Mass/Vol] 6.8 g/dL 5.9-8.4 [facility] Triglycerides measurementOrd ered By: Gulshan Jules on 09-23-2024 Triglyceride [Mass/Vol] 111 mg/dL <199 [facility] Comment on above: The drugs N-Acetylcy steine and Metamizole may falsely depress this assay. Normal range: <150 mg/dLBorderline High: 150-199 mg/dLHigh: 200-499 mg/dLVery High: >500 mg/dL White blood cell (WBC) count Ordered By: Gulshan Jules on 09-23-2024 WBC (Bld) [#/Vol] 2.6 10*3/uL Low 4.4-11.0 [facility] 12 Lead EKGon 09-10-2024 12 Lead EKG Normal [facility] Absolute lymphocyte countOrd ered By: Marvin Edouard on 09-10-2024 Lymphocytes Auto (Unsp spec) [#/Vol] 1.02 10*3/uL 0.83-4.51 [facility] Absolute neutrophil countOrd ered By: Marvin Edouard on 09-10-2024 Neutrophils (Bld) [#/Vol] 2.0 10*3/uL 2.0-7.7 [facility] Anion gap in Serum or Plasma Ordered By: Marvin Edouard on 09-10-2024 Anion gap [Moles/Vol] 12 mmol/L -[address] [facility] Automated lymphocyte count a s percentage of total leukocytesOrdered By: Marvin Edouard on 09-10-2024 Lymphocytes/100 WBC Auto (Unsp spec) 27.9 % - [facility] BUN/creatinine ratioOrdered By: Marvin Edouard on 09-10-2024 Urea nitrogen/Creatinine [Mass ratio] 14.6 mg/mg 10- [facility] Basic Metabolic Profile (BMP )on 09-10-2024 BUN/CRE 14.6 RATIO Normal 10-20 [facility] Comment on above: Performed By: #### L 500.2500, L100.0100 ####[facility] [address] [place], [address] Calcium [Mass/Vol] 9.2 mg/dL Normal 7.6-11.0 [facility] Comment on above: Performed By: #### L 500.2500, L100.0100 ####[facility] [address] [place], [address] Chloride [Moles/Vol] 104 mmol/L Normal 98-108 [facility] Comment on above: Performed By: #### L 500.2500, L100.0100 ####[facility] [address] [place], [address] CO2 [Moles/Vol] 24.4 mmol/L Normal 21.0-32.0 [facility] Comment on above: Performed By: #### L 500.2500, L100.0100 ####[facility] [address] [place], [address] Creatinine [Mass/Vol] 0.83 mg/dL Normal 0.70-1.[address] [facility] Comment on above: Performed By: #### L 500.2500, L100.0100 ####[facility] [address] [place], [address] ECRCL 74.27 ml/min Normal 50-250 [facility] Comment on above: Performed By: #### L 500.2500, L100.0100 ####[facility] [address] [place], [address] GAP 12 Normal 5-15 [facility] Comment on above: Performed By: #### L 500.2500, L100.0100 ####[facility] [address] [place], [address] GFR/1.73 sq M.predicted among non-blacks MDRD (S/P/Bld) [Vol rate/Area] 92 mL/min/{1.73_m2} Normal >60 [facility] Comment on above: Result Comment: mL/m in/1.73m2 CKD-EPI Creatinine Equation (2020) Performed By: #### L 500.2500, L100.0100 ####[facility] [address] [place], [address] Glucose [Mass/Vol] 97 mg/dL Normal 70-99 [facility] Comment on above: Performed By: #### L 500.2500, L100.0100 ####[facility] [address] [place], [address] Potassium [Moles/Vol] 4.0 mmol/L Normal 3.3-5.[address] [facility] Comment on above: Result Comment: Hemo lysis present, Results??could be affected.?? Performed By: #### L 500.2500, L100.0100 ####[facility] [address] [place], [address] Sodium [Moles/Vol] 141 mmol/L Normal 133-145 [facility] Comment on above: Performed By: #### L 500.2500, L100.0100 ####[facility] [address] [place], [address] Urea nitrogen [Mass/Vol] 12 mg/dL Normal 4-19 [facility] Comment on above: Performed By: #### L 500.2500, L100.0100 ####[facility] [address] [place], [address] Basophil percentageOrdered B y: Marvin Edouard on 09-10-2024 Basophils/100 WBC (Bld) 0.3 % 0-1 [facility] Bilirubin Test strip Ql (U)O rdered By: Marvin Edouard on 09-10-2024 Bilirubin Ql (U) Negative Negative [facility] CBC W/Diff, Automatedon 08-0 2-2024 Absolute Lymph 1.02 X10 3/uL Normal 0.83-4.51 [facility] Comment on above: Performed By: #### L 500.2500, L100.0100 ####[facility] [address] [place], [address] Absolute Neut 2.0 X10 3/uL Normal 2.0-7.7 [facility] Comment on above: Performed By: #### L 500.2500, L100.0100 ####[facility] [address] [place], [address] Basophils/100 WBC (Bld) 0.3 % Normal 0-1 [facility] Comment on above: Performed By: #### L 500.2500, L100.0100 ####[facility] [address] [place], [address] Eosinophils/100 WBC (Bld) 3.3 % Normal 0-5 [facility] Comment on above: Performed By: #### L 500.2500, L100.0100 ####[facility] [address] [place], [address] Erythrocyte distribution width (RBC) [Ratio] 14.5 % Normal 11.6-14.6 [facility] Comment on above: Performed By: #### L 500.2500, L100.0100 ####[facility] [address] [place], [address] Hematocrit (Bld) [Volume fraction] 37.7 % Normal 37-47 [facility] Comment on above: Performed By: #### L 500.2500, L100.0100 ####[facility] [address] [place], [address] Hemoglobin (Bld) [Mass/Vol] 13.2 g/dL Normal 12.0-15.0 [facility] Comment on above: Performed By: #### L 500.2500, L100.0100 ####[facility] [address] [place], [address] IG% 0.300 Normal 0.0-0.9 [facility] Comment on above: Result Comment: IG% - Immature Granulocytes (promyelocytes, myelocytes andmetamyelocytes) > 1% indicates that a LEFT SHIFT is Present. Performed By: #### L 500.2500, L100.0100 ####[facility] [address] [place], [address] Lymphocytes/100 WBC (Bld) 27.9 % Normal 19-41 [facility] Comment on above: Performed By: #### L 500.2500, L100.0100 ####[facility] [address] [place], [address] MCH (RBC) [Entitic mass] 35.0 pg High 27.0-32.0 [facility] Comment on above: Performed By: #### L 500.2500, L100.0100 ####[facility] [address] [place], [address] MCHC (RBC) [Mass/Vol] 35.0 g/dL Normal 32-[address] [facility] Comment on above: Performed By: #### L 500.2500, L100.0100 ####[facility] [address] [place], [address] MCV (RBC) [Entitic vol] 100.0 fL High 81-99 [facility] Comment on above: Performed By: #### L 500.2500, L100.0100 ####[facility] [address] [place], [address] Monocytes/100 WBC (Bld) 14.8 % High 0-10 [facility] Comment on above: Performed By: #### L 500.2500, L100.0100 ####[facility] [address] [place], [address] Neutrophils/100 WBC (Bld) 53.4 % Normal 47-70 [facility] Comment on above: Performed By: #### L 500.2500, L100.0100 ####[facility] [address] [place], [address] Nucleated RBC (Bld) [#/Vol] 0 10*3/uL Normal 0-5 [facility] Comment on above: Performed By: #### L 500.2500, L100.0100 ####[facility] [address] [place], [address] Platelet mean volume (Bld) [Entitic vol] 11.0 fL Normal 6.2-12.0 [facility] Comment on above: Performed By: #### L 500.2500, L100.0100 ####[facility] [address] [place], [address] Platelets (Bld) [#/Vol] 159 10*3/uL Normal 150-450 [facility] Comment on above: Performed By: #### L 500.2500, L100.0100 ####[facility] [address] [place], [address] RBC (Bld) [#/Vol] 3.77 10*6/uL Low 4.2-5.4 [facility] Comment on above: Performed By: #### L 500.2500, L100.0100 ####[facility] [address] [place], [address] RDW SD 53.2 fl High 35.1-43.9 [facility] Comment on above: Performed By: #### L 500.2500, L100.0100 ####[facility] [address] [place], [address] WBC (Bld) [#/Vol] 3.7 10*3/uL Low 4.4-11.0 [facility] Comment on above: Performed By: #### L 500.2500, L100.0100 ####[facility] [address] [place], [address] Carbon dioxide, total [Moles /volume] in Central venous bloodOrdered By: Marvin Edouard on 09-10-2024 CO2 [Moles/Vol] 24.4 mmol/L 21.0-32.0 [facility] Chloride assayOrdered By: Johnnie Edouard on 09-10-2024 Chloride [Moles/Vol] 104 mmol/L 98-108 [facility] Emergency Department Summary on 09-10-2024 Emergency Department Summary Normal [facility] Eosinophil percentageOrdered By: Marvin Edouard on 09-10-2024 Eosinophils/100 WBC (Bld) 3.3 % 0-5 [facility] Erythrocyte distribution wid th ratioOrdered By: Marvin Edouard on 09-10-2024 Erythrocyte distribution width (RBC) [Ratio] 14.5 % 11.6-14.6 [facility] Erythrocyte distribution wid th standard deviationOrdered By: Marvin Edouard on 09-10-2024 Erythrocyte distribution width (RBC) [Ratio] 53.2 fl High 35.1-43.9 [facility] Glomerular filtration rate ( GFR) estimation/1.73 sq m using serum, plasma, or whole bOrdered By: Marvin Edouard on 09-10-2024 GFR/1.73 sq M.predicted among non-blacks MDRD (S/P/Bld) [Vol rate/Area] 92 mL/min/{1.73_m2} >60 [facility] Comment on above: mL/min/1.73m2 CKD-EP I Creatinine Equation (2020) Hematocrit Auto (Bld) [Volum e fraction]Ordered By: Marvin Edouard on 09-10-2024 Hematocrit (Bld) [Volume fraction] 37.7 % 37-47 [facility] [place] Hemoglobin measurementOrdere d By: Marvin Edouard on 09-10-2024 Hemoglobin (Bld) [Mass/Vol] 13.2 g/dL 12.0-15.0 [facility] [place] Immature granulocytes/100 WB C Auto (Bld)Ordered By: Marvin Edouard on 09-10-2024 Immature granulocytes/100 WBC (Bld) 0.300 % 0.0-0.9 [facility] [place] Comment on above: IG% - Immature Granu locytes (promyelocytes, myelocytes and metamyelocytes) > 1% indicates that a LEFT SHIFT is Present. Ketones Test strip Ql (U)Ord ered By: Marvin Edouard on 09-10-2024 Ketones Ql (U) Negative Negative [facility] [place] MCV (mean corpuscular volume ) determinationOrdered By: Marvin Edouard on 09-10-2024 MCV (RBC) [Entitic vol] 100.0 fL High 81-99 [facility] [place] Mean corpuscular hemoglobin (MCH) determinationOrdered By: Marvin Edouard on 09-10-2024 MCH (RBC) [Entitic mass] 35.0 pg High 27.0-32.0 [facility] [place] Mean corpuscular hemoglobin concentration (MCHC) determinationOrdered By: Marvin Edouard on 09-10-2024 MCHC (RBC) [Mass/Vol] 35.0 g/dL 32-[address] [facility] Mean platelet volume determi nationOrdered By: Marvin Edouard on 09-10-2024 Platelet mean volume (Bld) [Entitic vol] 11.0 fL 6.2-12.0 [facility] [place] Microscopic analysis of urin e for red blood cells (RBC)Ordered By: Marvin Edouard on 09-10-2024 Microscopic analysis of urine for red blood cells (RBC) 0 SEEN /hpf 0-5 [facility] [place] Monocyte percentageOrdered B y: Marvin Edouard on 09-10-2024 Monocytes/100 WBC (Bld) 14.8 % High 0-10 [facility] [place] Mucus LM Ql (Urine sed)Order ed By: Marvin Edouard on 09-10-2024 Mucus Ql (Urine sed) 0 SEEN /hpf [facility] Neutrophil percentageOrdered By: Marvin Edouard on 09-10-2024 Neutrophils/100 WBC (Bld) 53.4 % 47-70 [facility] [place] Nitrite Test strip Ql (U)Ord ered By: Marvin Edouard on 09-10-2024 Nitrite Ql (U) Negative Negative [facility] [place] Nucleated red blood cell per centageOrdered By: Marvin Edouard on 09-10-2024 Nucleated RBC/100 WBC (Bld) [Ratio] 0 % 0-5 [facility] [place] Platelet countOrdered By: Johnnie jackson Silke on 09-10-2024 Platelets (Bld) [#/Vol] 159 10*3/uL 150-450 [facility] [place] Potassium measurement (mass/ volume)Ordered By: Marvin Edouard on 09-10-2024 Potassium (Unsp spec) [Mass/Vol] 4.0 mmol/L 3.3-5.1 [facility] [place] Comment on above: Hemolysis present, R esults could be affected. Protein Test strip Ql (U)Ord ered By: Marvin Edouard on 09-10-2024 Protein Ql (U) 15 mg/dl High Negative [facility] [place] RBC Auto (Bld) [#/Vol]Ordere d By: Marvin Edouard on 09-10-2024 RBC (Bld) [#/Vol] 3.77 10*6/uL Low 4.2-5.4 [facility] Serum creatinine measurement (mass/volume)Ordered By: Marvin Edouard on 09-10-2024 Creatinine [Mass/Vol] 0.83 mg/dL 0.70-1.[address] [facility] Serum glucose measurement (m ass/volume)Ordered By: Marvin Edouard on 09-10-2024 Glucose [Mass/Vol] 97 mg/dL 70-99 [facility] Serum or plasma calcium ana maria urement (mass/volume)Ordered By: Marvin Edouard on 09-10-2024 Calcium [Mass/Vol] 9.2 mg/dL 7.6-11.0 [facility] Serum or plasma urea nitroge n measurement (mass/volume)Ordered By: Marvin Edouard on 09-10-2024 Urea nitrogen [Mass/Vol] 12 mg/dL 4-19 [facility] [place] Sodium levelOrdered By: Marvin Edouard on 09-10-2024 Sodium [Moles/Vol] 141 mmol/L 133-145 [facility] Squamous epithelial cells de tection in urine sediment by light microscopyOrdered By: Marvin Edouard on 09-10-2024 Epithelial cells.squamous LM Ql (Urine sed) 5-10 SEEN /hpf 5-10 [facility] [place] Urinalysis, Completeon 09-10 WBC 10-25 SEEN Normal 0-5 [facility] [place] Comment on above: Order Comment: CLEAN CATCH Performed By: #### L 400.0001 ####[facility] [address] [place], [address] EPI,SQUAMOUS 5-10 SEEN Normal 5-10 [facility] [place] Comment on above: Order Comment: CLEAN CATCH Performed By: #### L 400.0001 ####[facility] [address] [place], [address] BACTERIA 0 SEEN Normal None Seen [facility] Comment on above: Order Comment: CLEAN CATCH Performed By: #### L 400.0001 ####[facility] [address] [place], [address] Mucus Ql (Urine sed) 0 SEEN Normal [facility] Comment on above: Order Comment: CLEAN CATCH Performed By: #### L 400.0001 ####[facility] [address] [place], [address] RBC 0 SEEN Normal 0-5 [facility] Comment on above: Order Comment: CLEAN CATCH Performed By: #### L 400.0001 ####[facility] [address] [place], [address] Urine clarityOrdered By: Julian Edouard on 09-10-2024 Clarity (U) Clear Clear [facility] Urine color determinationOrd ered By: Marvin Edouard on 09-10-2024 Color (U) Yellow Yellow [facility] Urine glucose detectionOrder ed By: Marvin Edouard on 09-10-2024 Glucose Ql (U) Normal mg/dl Normal [facility] [place] Urine leukocyte esterase det ection by dipstickOrdered By: Marvin Edouard on 09-10-2024 Leukocyte esterase Test strip Ql (U) 500 /ul High Negative [facility] [place] Urine pHOrdered By: Marvin Edouard on 09-10-2024 pH (U) 7.0 [pH] 5.0 - 8.0 [facility] [place] Urine sediment bacteria coun t by microscopy (number/high power field)Ordered By: Marvin Edouard on 09-10-2024 Bacteria LM.HPF (Urine sed) [#/Area] 0 /[HPF] None Seen [facility] [place] Urine specific gravity measu rementOrdered By: Marvin Edouard on 09-10-2024 Specific gravity (U) [Rel density] 1.010 1.002-1.030 [facility] [place] Urine urobilinogen measureme ntOrdered By: Marvin Edouard on 09-10-2024 Urobilinogen Ql (U) Normal mg/dl Normal [facility] White blood cell (WBC) count Ordered By: Marvin Edouard on 09-10-2024 WBC (Bld) [#/Vol] 3.7 10*3/uL Low 4.4-11.0 [facility] White blood cell countOrdere d By: Marvin Edouard on 09-10-2024 White blood cell count 10-25 SEEN /hpf 0-5 [facility] [place] Internal Medicine Office Vis iton 09-09-2024 Internal Medicine Office Visit Normal [facility] [place] Emergency Department Summary on 09-03-2024 Emergency Department Summary Normal [facility] Foot min 3 Viewson Foot min 3 Views Normal [facility] Absolute lymphocyte countOrd ered By: Gene Braun on 07-28-2024 Lymphocytes Auto (Unsp spec) [#/Vol] 0.66 10*3/uL Low 0.83-4.51 [facility] Absolute neutrophil countOrd ered By: Gene Braun on 07-28-2024 Neutrophils (Bld) [#/Vol] 1.6 10*3/uL Low 2.0-7.7 [facility] [place] Automated lymphocyte count a s percentage of total leukocytesOrdered By: Gene Braun on 07-28-2024 Lymphocytes/100 WBC Auto (Unsp spec) 23.7 % 19- [facility] Basophil percentageOrdered B y: Gene Braun on 07-28-2024 Basophils/100 WBC (Bld) 0.7 % 0-1 [facility] CBC W/Diff, Automatedon 07-10 Absolute Lymph 0.66 X10 3/uL Low 0.83-4.51 [facility] [place] Comment on above: Performed By: #### L 100.0100 ####[facility] [address] [place], [address] Absolute Neut 1.6 X10 3/uL Low 2.0-7.7 [facility] [place] Comment on above: Performed By: #### L 100.0100 ####[facility] [address] [place], [address] Basophils/100 WBC (Bld) 0.7 % Normal 0-1 [facility] Comment on above: Performed By: #### L 100.0100 ####[facility] [address] [place], [address] Eosinophils/100 WBC (Bld) 2.9 % Normal 0-5 [facility] Comment on above: Performed By: #### L 100.0100 ####[facility] [address] [place], [address] Erythrocyte distribution width (RBC) [Ratio] 13.4 % Normal 11.6-14.6 [facility] Comment on above: Performed By: #### L 100.0100 ####[facility] [address] [place], [address] Hematocrit (Bld) [Volume fraction] 38.7 % Normal 37-47 [facility] [place] Comment on above: Performed By: #### L 100.0100 ####[facility] [place] [address] [place], [address] Hemoglobin (Bld) [Mass/Vol] 13.4 g/dL Normal 12.0-15.0 [facility] [place] Comment on above: Performed By: #### L 100.0100 ####[facility] [address] [place], [address] IG% 0.000 Normal 0.0-0.9 [facility] Comment on above: Result Comment: IG% - Immature Granulocytes (promyelocytes, myelocytes andmetamyelocytes) > 1% indicates that a LEFT SHIFT is Present. Performed By: #### L 100.0100 ####[facility] [address] [place], [address] Lymphocytes/100 WBC (Bld) 23.7 % Normal 19-41 [facility] Comment on above: Performed By: #### L 100.0100 ####[facility] [place] [address] [place], [address] MCH (RBC) [Entitic mass] 34.4 pg High 27.0-32.0 [facility] [place] Comment on above: Performed By: #### L 100.0100 ####[facility] [place] [address] [place], [address] MCHC (RBC) [Mass/Vol] 34.6 g/dL Normal 32-[address] [facility] Comment on above: Performed By: #### L 100.0100 ####[facility] [place] [address] [place], [address] MCV (RBC) [Entitic vol] 99.2 fL High 81-99 [facility] Comment on above: Performed By: #### L 100.0100 ####[facility] [address] [place], [address] Monocytes/100 WBC (Bld) 14.7 % High 0-10 [facility] Comment on above: Performed By: #### L 100.0100 ####[facility] [address] [place], [address] Neutrophils/100 WBC (Bld) 58.0 % Normal 47-70 [facility] Comment on above: Performed By: #### L 100.0100 ####[facility] [address] [place], [address] Nucleated RBC (Bld) [#/Vol] 0 10*3/uL Normal 0-5 [facility] Comment on above: Performed By: #### L 100.0100 ####[facility] [address] [place], [address] Platelet mean volume (Bld) [Entitic vol] 10.4 fL Normal 6.2-12.0 [facility] Comment on above: Performed By: #### L 100.0100 ####[facility] [address] [place], [address] Platelets (Bld) [#/Vol] 158 10*3/uL Normal 150-450 [facility] Comment on above: Performed By: #### L 100.0100 ####[facility] [address] [place], [address] RBC (Bld) [#/Vol] 3.90 10*6/uL Low 4.2-5.4 [facility] Comment on above: Performed By: #### L 100.0100 ####[facility] [address] [place], [address] RDW SD 48.8 fl High 35.1-43.9 [facility] [place] Comment on above: Performed By: #### L 100.0100 ####[facility] [place] [address] [place], [address] WBC (Bld) [#/Vol] 2.8 10*3/uL Low 4.4-11.0 [facility] Comment on above: Performed By: #### L 100.0100 ####[facility] [place] [address] [place], [address] Eosinophil percentageOrdered By: Gene Braun on 07-28-2024 Eosinophils/100 WBC (Bld) 2.9 % 0-5 [facility] Erythrocyte distribution wid th ratioOrdered By: Gene Braun on 07-28-2024 Erythrocyte distribution width (RBC) [Ratio] 13.4 % 11.6-14.6 [facility] Erythrocyte distribution wid th standard deviationOrdered By: Gene Braun on 07-28-2024 Erythrocyte distribution width (RBC) [Ratio] 48.8 fl High 35.1-43.9 [facility] [place] Hematocrit Auto (Bld) [Volum e fraction]Ordered By: Gene Braun on 07-28-2024 Hematocrit (Bld) [Volume fraction] 38.7 % 37-47 [facility] [place] Hemoglobin measurementOrdere d By: Gene Braun on 07-28-2024 Hemoglobin (Bld) [Mass/Vol] 13.4 g/dL 12.0-15.0 [facility] Immature granulocytes/100 WB C Auto (Bld)Ordered By: Gene Braun on 07-28-2024 Immature granulocytes/100 WBC (Bld) 0.000 % 0.0-0.9 [facility] Comment on above: IG% - Immature Granu locytes (promyelocytes, myelocytes and metamyelocytes) > 1% indicates that a LEFT SHIFT is Present. MCV (mean corpuscular volume ) determinationOrdered By: Gene Braun on 07-28-2024 MCV (RBC) [Entitic vol] 99.2 fL High 81-99 [facility] Mean corpuscular hemoglobin (MCH) determinationOrdered By: Gene Braun on 07-28-2024 MCH (RBC) [Entitic mass] 34.4 pg High 27.0-32.0 [facility] Mean corpuscular hemoglobin concentration (MCHC) determinationOrdered By: Gene Braun on 07-28-2024 MCHC (RBC) [Mass/Vol] 34.6 g/dL 32-[address] [facility] Mean platelet volume determi nationOrdered By: Gene Braun on 07-28-2024 Platelet mean volume (Bld) [Entitic vol] 10.4 fL 6.2-12.0 [facility] Monocyte percentageOrdered B y: Gene Braun on 07-28-2024 Monocytes/100 WBC (Bld) 14.7 % High 0-10 [facility] Neutrophil percentageOrdered By: Gene Braun on 07-28-2024 Neutrophils/100 WBC (Bld) 58.0 % 47-70 [facility] Nucleated red blood cell per centageOrdered By: Gene Braun on 07-28-2024 Nucleated RBC/100 WBC (Bld) [Ratio] 0 % 0-5 [facility] Oncology Visit Reporton 07-10 Oncology Visit Report Normal [facility] Platelet countOrdered By: Erin Braun on 07-28-2024 Platelets (Bld) [#/Vol] 158 10*3/uL 150-450 [facility] RBC Auto (Bld) [#/Vol]Ordere d By: Gene Braun on 07-28-2024 RBC (Bld) [#/Vol] 3.90 10*6/uL Low 4.2-5.4 [facility] White blood cell (WBC) count Ordered By: Gene Braun on 07-28-2024 WBC (Bld) [#/Vol] 2.8 10*3/uL Low 4.4-11.0 [facility] Gastroenterology Visit Repor ton 07-19-2024 Gastroenterology Visit Report Normal [facility] L501.5101on 07-15-2024 GGTP 103 IU/L Abnormal 0-60 [facility] Comment on above: Result Comment: Perf ormed at: [facility] [address] Director: Jorgito Cunningham PhD, Phone: [phone] Performed By: #### L 500.3400, L501.5101, L501.5200, L503.6030, L503.0106 ####[facility] [address] [place], [address] MRI MRCPon 07-15-2024 MRI MRCP [...] 07/15/2024 4:28:26 PM Ordering Provider: VONDA MUELLER [facility] Bilirubin directOrdered By: Vonda Mueller on 07-14-2024 Bilirubin.direct [Mass/Vol] 0.15 mg/dL 0.00-0.30 [facility] Bilirubin, totalOrdered By: Vonda Mueller on 07-14-2024 Bilirubin [Mass/Vol] 0.34 mg/dL 0.00-1.30 [facility] Gamma glutamyl transferase ( GGT) measurementOrdered By: Vonda Mueller on 07-14-2024 Amylase [Catalytic activity/Vol] 103 U/L High 0-60 [facility] Comment on above: Performed at: [address] [id number] Director: Jorgito Cunningham PhD, Phone: [phone] Iron measurement (mass/mass) Ordered By: Vonda Mueller on 07-14-2024 Iron (Unsp spec) [Mass/Mass] 119 ug/dL 50-170 [facility] Iron+Iron Binding Capacityon 07-14-2024 Iron [Mass/Vol] 119 ug/dL Normal 50-170 [facility] Comment on above: Performed By: #### L 500.3400, L501.5101, L501.5200, L503.6030, L503.0106 ####[facility] [address] [place], [place], [address] IRON SATURATION 34.0 Normal 13-59 [facility] Comment on above: Performed By: #### L 500.3400, L501.5101, L501.5200, L503.6030, L503.0106 ####[facility] [address] [place], [address] TIBC 347 ug/dL Normal 250-450 [facility] Comment on above: Performed By: #### L 500.3400, L501.5101, L501.5200, L503.6030, L503.0106 ####[facility] [address] [place], [address] UIBC 228 ug/dL Normal 228-428 [facility] Comment on above: Performed By: #### L 500.3400, L501.5101, L501.5200, L503.6030, L503.0106 ####[facility] [address] [place], [address] Laboratory - Chemistry and C hemistry - challengeOrdered By: Vonda Mueller on 07-14-2024 AST [Catalytic activity/Vol] 38 U/L High <32 [facility] Liver Profileon 07-14-2024 Albumin [Mass/Vol] 4.6 g/dL Normal 3.5-5.0 [facility] Comment on above: Performed By: #### L 500.3400, L501.5101, L501.5200, L503.6030, L503.0106 ####[facility] [address] [place], [address] ALK PHOS 100 U/L Normal 35-104 [facility] Comment on above: Performed By: #### L 500.3400, L501.5101, L501.5200, L503.6030, L503.0106 ####[facility] [address] [place], [address] ALT [Catalytic activity/Vol] 61 U/L High <=34 [facility] Comment on above: Performed By: #### L 500.3400, L501.5101, L501.5200, L503.6030, L503.0106 ####[facility] [address] [place], [address] AST [Catalytic activity/Vol] 38 U/L High <=31 [facility] Comment on above: Performed By: #### L 500.3400, L501.5101, L501.5200, L503.6030, L503.0106 ####[facility] [address] [place], [address] Bilirubin [Mass/Vol] 0.34 mg/dL Normal 0.00-1.30 [facility] Comment on above: Performed By: #### L 500.3400, L501.5101, L501.5200, L503.6030, L503.0106 ####[facility] [address] [place], [address] Bilirubin.direct [Mass/Vol] 0.15 mg/dL Normal 0.00-0.30 [facility] Comment on above: Performed By: #### L 500.3400, L501.5101, L501.5200, L503.6030, L503.0106 ####[facility] [address] [place], [address] Globulin (S) [Mass/Vol] 2.3 g/dL Normal 2.2-4.2 [facility] Comment on above: Performed By: #### L 500.3400, L501.5101, L501.5200, L503.6030, L503.0106 ####[facility] [address] [place], [address] T PROT 6.9 g/dL Normal 5.9-8.4 [facility] Comment on above: Performed By: #### L 500.3400, L501.5101, L501.5200, L503.6030, L503.0106 ####[facility] [address] [place], [address] Magnesiumon 07-14-2024 Magnesium [Mass/Vol] 2.1 mg/dL Normal 1.5-2.2 [facility] Comment on above: Performed By: #### L 500.3400, L501.5101, L501.5200, L503.6030, L503.0106 ####[facility] [address] [place], [address] Magnesium measurement (mass/ volume)Ordered By: Vonda Mueller on 07-14-2024 Magnesium (Unsp spec) [Mass/Vol] 2.1 mg/dL 1.5-2.2 [facility] No Panel InformationOrdered By: Vonda Mueller on 07-14-2024 Unsaturated Iron Binding Capacity 228 ug/dL 228-428 [facility] Serum globulin measurementOr dered By: Vonda Mueller on 07-14-2024 Globulin (S) [Mass/Vol] 2.3 g/dL 2.2-4.2 [facility] Serum or plasma alanine valencia otransferase (ALT) measurementOrdered By: Vonda Mueller on 07-14-2024 ALT [Catalytic activity/Vol] 61 U/L High <35 [facility] Serum or plasma albumin ana maria urement (mass/volume)Ordered By: Vonda Mueller on 07-14-2024 Albumin [Mass/Vol] 4.6 g/dL 3.5-5.0 [facility] Serum or plasma alkaline juana sphatase measurementOrdered By: Vonda Mueller on 07-14-2024 ALP [Catalytic activity/Vol] 100 U/L 35-104 [facility] Serum or plasma iron saturat ion measurement (mass fraction)Ordered By: Vonda Mueller on 07-14-2024 Iron saturation [Mass fraction] 34.0 % 13-59 [facility] Total proteinOrdered By: Brenda Mueller on 07-14-2024 Protein [Mass/Vol] 6.9 g/dL 5.9-8.4 [facility] Vitamin B12on 07-14-2024 Cobalamin (Vitamin B12) [Mass/Vol] 879 pg/mL Normal 180-914 [facility] Comment on above: Performed By: #### L 500.3400, L501.5101, L501.5200, L503.6030, L503.0106 ####[facility] [address] [place], [address] Vitamin B12 ser/plasOrdered By: Vonda Mueller on 07-14-2024 Cobalamin (Vitamin B12) [Mass/Vol] 879 pg/mL 180-914 [facility] L3410.9992on 07-07-20[facility] Normal . [facility] Comment on above: Order Comment: [id number] Result Comment: Test Ordered: [id number] Enhanced Liver Fibrosis (ELF)ELF(TM) Score 9.04 BN [...] STELLAR trials. J Hepatol. 2020 Aug;73(1):26-39.Performed at: [address] [id number] Director: Montserrat Gibbons MD, Phone: [phone] at: [place] [id number] [place], [place] [id number] Director: Jorgito Cunningham PhD, Phone: [phone] Performed By: #### L 3890.6202, L3410.9992, L3100.0460, L500.4100, L3890.6301, L3890.6102, L500.2500, L3300.1200, L800.1280, L803.2200, L100.0100, L503.6030, L3100.0300, L503.6550, L501.9985 ####[facility] [address] [place], [address] ANCAon 07-01-2024 Atypical pANCA <1:20 Normal Neg:<1:20 [facility] Comment on above: Result Comment: The atypical pANCA pattern has been observed in asignificant percentage of patients with ulcerative colitis,primary sclerosing cholangitis and autoimmune hepatitis. Performed By: #### L 3890.6202, L3410.9992, L3100.0460, L500.4100, L3890.6301, L3890.6102, L500.2500, L3300.1200, L800.1280, L803.2200, L100.0100, L503.6030, L3100.0300, L503.6550, L501.9985 ####[facility] [address] [facility] [place], [place], [address] Cytoplasmic Ab <1:20 Normal Neg:<1:20 [facility] Comment on above: Performed By: #### L 3890.6202, L3410.9992, L3100.0460, L500.4100, L3890.6301, L3890.6102, L500.2500, L3300.1200, L800.1280, L803.2200, L100.0100, L503.6030, L3100.0300, L503.6550, L501.9985 ####[facility] [address] [facility] [place], [place], [address] Perinuclear Ab. <1:20 Normal Neg:<1:20 [facility] Comment on above: Result Comment: The presence of positive fluorescence exhibiting P-ANCA orC-ANCA patterns alone is not specific for the diagnosis ofWegener's Granulomatosis (WG) or microscopic polyangiitis.Decisions about treatment should not be based solely onANCA IFA results. The International ANCA Group Consensusrecommends follow up testing of positive sera with both PA-3 and MPO-ANCA enzyme immunoassays. As many as 5% serumsamples are positive only by EIA. Ref. AM J Clin Zvqtsr4099;111:507-513. Performed By: #### L 3890.6202, L3410.9992, L3100.0460, L500.4100, L3890.6301, L3890.6102, L500.2500, L3300.1200, L800.1280, L803.2200, L100.0100, L503.6030, L3100.0300, L503.6550, L501.9985 ####[facility] [address] [facility] [place], [place], [address] Anti-Mitochondrial ABon 05- ANTIMITOCHON AB <20.0 Normal 0.0-20.0 [facility] Comment on above: Result Comment: Nega tive 0.0 - 20.0 Equivocal 20.1 - 24.9 Positive >24.9Mitochondrial (M2) Antibodies are found in 90-96% ofpatients with primary biliary cirrhosis.Performed at: [address] [id number] Director: Jorgito Cunningham PhD, Phone: [phone] Performed By: #### L 3890.6202, L3410.9992, L3100.0460, L500.4100, L3890.6301, L3890.6102, L500.2500, L3300.1200, L800.1280, L803.2200, L100.0100, L503.6030, L3100.0300, L503.6550, L501.9985 ####[facility] [address] [facility] [place], [address] Anti-Smooth Muscle ABSon ANTISMOOTH MUSC 5 Units Normal 0-19 [facility] Comment on above: Result Comment: Nega tive 0 - 19 Weak positive 20 - 30 Moderate to strong positive >30 Actin Antibodies are found in 52-85% of patients with autoimmune hepatitis or chronic active hepatitis and in 22% of patients with primary biliary cirrhosis. Performed By: #### L 3890.6202, L3410.9992, L3100.0460, L500.4100, L3890.6301, L3890.6102, L500.2500, L3300.1200, L800.1280, L803.2200, L100.0100, L503.6030, L3100.0300, L503.6550, L501.9985 ####[facility] [address] [place], [address] Hepatitis A AB, Totalon 06-10 HEPATITIS A,TOT Negative Normal Negative [facility] Comment on above: Result Comment: Comm ent: The HAV total antibody assay detects both IgG andIgM but does not differentiate between them. A negativeresult suggests susceptibility to infection. A positiveresult could be due to vaccination, previously resolvedinfection or active infection. Testing for HAV IgM shouldbe performed if active HAV infection is suspected. [facility] profiles that will automatically reflex positive HAVtotal antibody results to IgM (e.g., panel #[id number] HAVAntibody w/ Rfx).Performed at: [address] [id number] Director: Jorgito Cunningham PhD, Phone: [phone] Performed By: #### L 3890.6202, L3410.9992, L3100.0460, L500.4100, L3890.6301, L3890.6102, L500.2500, L3300.1200, L800.1280, L803.2200, L100.0100, L503.6030, L3100.0300, L503.6550, L501.9985 ####[facility] [address] [facility] [place], [address] Hepatitis B Core Ab Total 07-01-2024 HEP B CORE,TOT Negative Normal Negative [facility] Comment on above: Performed By: #### L 3890.6202, L3410.9992, L3100.0460, L500.4100, L3890.6301, L3890.6102, L500.2500, L3300.1200, L800.1280, L803.2200, L100.0100, L503.6030, L3100.0300, L503.6550, L501.9985 ####[facility] [address] [place], [address] Absolute lymphocyte countOrd ered By: Vonda Mueller on 06-30-2024 Lymphocytes Auto (Unsp spec) [#/Vol] 0.63 10*3/uL Low 0.83-4.51 [facility] Absolute neutrophil countOrd ered By: Vonda Mueller on 06-30-2024 Neutrophils (Bld) [#/Vol] 1.8 10*3/uL Low 2.0-7.7 [facility] Anion gap in Serum or Plasma Ordered By: Vonda Mueller on 06-30-2024 Anion gap [Moles/Vol] 12 mmol/L - [facility] Automated lymphocyte count a s percentage of total leukocytesOrdered By: Vonda Mueller on 06-30-2024 Lymphocytes/100 WBC Auto (Unsp spec) 21.4 % [facility] BUN/creatinine ratioOrdered By: Vonda Mueller on 06-30-2024 Urea nitrogen/Creatinine [Mass ratio] 18.0 mg/mg - [facility] Basic Metabolic Profile (BMP )on 06-30-2024 BUN/CRE 18.0 RATIO Normal - [facility] Comment on above: Performed By: #### L 3890.6202, L3410.9992, L3100.0460, L500.4100, L3890.6301, L3890.6102, L500.2500, L3300.1200, L800.1280, L803.2200, L100.0100, L503.6030, L3100.0300, L503.6550, L501.9985 ####[facility] [address], [address] Calcium [Mass/Vol] 9.4 mg/dL Normal 7.6-11.0 [facility] Comment on above: Performed By: #### L 3890.6202, L3410.9992, L3100.0460, L500.4100, L3890.6301, L3890.6102, L500.2500, L3300.1200, L800.1280, L803.2200, L100.0100, L503.6030, L3100.0300, L503.6550, L501.9985 ####[facility] [address] [facility] [address] [place], [place], [phone] Chloride [Moles/Vol] 102 mmol/L Normal 98-108 [facility] Comment on above: Performed By: #### L 3890.6202, L3410.9992, L3100.0460, L500.4100, L3890.6301, L3890.6102, L500.2500, L3300.1200, L800.1280, L803.2200, L100.0100, L503.6030, L3100.0300, L503.6550, L501.9985 ####[facility] [address] [facility] [address] [place], [place], [id number] CO2 [Moles/Vol] 25.4 mmol/L Normal 21.0-32.0 [facility] Comment on above: Performed By: #### L 3890.6202, L3410.9992, L3100.0460, L500.4100, L3890.6301, L3890.6102, L500.2500, L3300.1200, L800.1280, L803.2200, L100.0100, L503.6030, L3100.0300, L503.6550, L501.9985 ####[facility] [address] [facility]. [place], [place], [phone] Creatinine [Mass/Vol] 0.87 mg/dL Normal 0.70-1.[address] [facility] Comment on above: Performed By: #### L 3890.6202, L3410.9992, L3100.0460, L500.4100, L3890.6301, L3890.6102, L500.2500, L3300.1200, L800.1280, L803.2200, L100.0100, L503.6030, L3100.0300, L503.6550, L501.9985 ####[facility] [address] [place], [place], [phone] GAP 12 Normal 5-15 [facility] Comment on above: Performed By: #### L 3890.6202, L3410.9992, L3100.0460, L500.4100, L3890.6301, L3890.6102, L500.2500, L3300.1200, L800.1280, L803.2200, L100.0100, L503.6030, L3100.0300, L503.6550, L501.9985 ####[facility] [address] [facility]. [place], [place], [phone] GFR/1.73 sq M.predicted among non-blacks MDRD (S/P/Bld) [Vol rate/Area] 87 mL/min/{1.73_m2} Normal >60 [facility] Comment on above: Result Comment: mL/m in/1.73m2 CKD-EPI Creatinine Equation (2020) Performed By: #### L 3890.6202, L3410.9992, L3100.0460, L500.4100, L3890.6301, L3890.6102, L500.2500, L3300.1200, L800.1280, L803.2200, L100.0100, L503.6030, L3100.0300, L503.6550, L501.9985 ####[facility] [address] [facility] [address] [place], [place], [phone] Glucose [Mass/Vol] 100 mg/dL High 70-99 [facility] Comment on above: Performed By: #### L 3890.6202, L3410.9992, L3100.0460, L500.4100, L3890.6301, L3890.6102, L500.2500, L3300.1200, L800.1280, L803.2200, L100.0100, L503.6030, L3100.0300, L503.6550, L501.9985 ####[facility] [address] [place], [place], [address] Potassium [Moles/Vol] 4.2 mmol/L Normal 3.3-5.[address] [facility] Comment on above: Performed By: #### L 3890.6202, L3410.9992, L3100.0460, L500.4100, L3890.6301, L3890.6102, L500.2500, L3300.1200, L800.1280, L803.2200, L100.0100, L503.6030, L3100.0300, L503.6550, L501.9985 ####[facility] [address] [place], [place], [phone] Sodium [Moles/Vol] 139 mmol/L Normal 133-145 [facility] Comment on above: Performed By: #### L 3890.6202, L3410.9992, L3100.0460, L500.4100, L3890.6301, L3890.6102, L500.2500, L3300.1200, L800.1280, L803.2200, L100.0100, L503.6030, L3100.0300, L503.6550, L501.9985 ####[facility] [address] [place], [place], [address] Urea nitrogen [Mass/Vol] 16 mg/dL Normal 4-19 [facility] Comment on above: Performed By: #### L 3890.6202, L3410.9992, L3100.0460, L500.4100, L3890.6301, L3890.6102, L500.2500, L3300.1200, L800.1280, L803.2200, L100.0100, L503.6030, L3100.0300, L503.6550, L501.9985 ####[facility] [address] [place], [address] Basophil percentageOrdered B y: Vonda Mueller on 06-30-2024 Basophils/100 WBC (Bld) 0.7 % 0-1 [facility] CBC W/Diff, Automatedon 06-10 Absolute Lymph 0.63 X10 3/uL Low 0.83-4.51 [facility] Comment on above: Performed By: #### L 3890.6202, L3410.9992, L3100.0460, L500.4100, L3890.6301, L3890.6102, L500.2500, L3300.1200, L800.1280, L803.2200, L100.0100, L503.6030, L3100.0300, L503.6550, L501.9985 ####[facility] [address] [place], [place], [phone]) Absolute Neut 1.8 X10 3/uL Low 2.0-7.7 [facility] Comment on above: Performed By: #### L 3890.6202, L3410.9992, L3100.0460, L500.4100, L3890.6301, L3890.6102, L500.2500, L3300.1200, L800.1280, L803.2200, L100.0100, L503.6030, L3100.0300, L503.6550, L501.9985 ####[facility] [address] [place], [place], [phone] Basophils/100 WBC (Bld) 0.7 % Normal 0-1 [facility] Comment on above: Performed By: #### L 3890.6202, L3410.9992, L3100.0460, L500.4100, L3890.6301, L3890.6102, L500.2500, L3300.1200, L800.1280, L803.2200, L100.0100, L503.6030, L3100.0300, L503.6550, L501.9985 ####[facility] [address] [place], [place], [phone](162) Eosinophils/100 WBC (Bld) 3.4 % Normal 0-5 [facility] Comment on above: Performed By: #### L 3890.6202, L3410.9992, L3100.0460, L500.4100, L3890.6301, L3890.6102, L500.2500, L3300.1200, L800.1280, L803.2200, L100.0100, L503.6030, L3100.0300, L503.6550, L501.9985 ####[facility] [address] [facility] [place], [phone]) Erythrocyte distribution width (RBC) [Ratio] 13.3 % Normal 11.6-14.6 [facility] Comment on above: Performed By: #### L 3890.6202, L3410.9992, L3100.0460, L500.4100, L3890.6301, L3890.6102, L500.2500, L3300.1200, L800.1280, L803.2200, L100.0100, L503.6030, L3100.0300, L503.6550, L501.9985 ####[facility] [address] [facility] [place], [phone]) Hematocrit (Bld) [Volume fraction] 39.9 % Normal 37-47 [facility] Comment on above: Performed By: #### L 3890.6202, L3410.9992, L3100.0460, L500.4100, L3890.6301, L3890.6102, L500.2500, L3300.1200, L800.1280, L803.2200, L100.0100, L503.6030, L3100.0300, L503.6550, L501.9985 ####[facility] [address] [facility] [place], [phone]) Hemoglobin (Bld) [Mass/Vol] 13.8 g/dL Normal 12.0-15.0 [facility] Comment on above: Performed By: #### L 3890.6202, L3410.9992, L3100.0460, L500.4100, L3890.6301, L3890.6102, L500.2500, L3300.1200, L800.1280, L803.2200, L100.0100, L503.6030, L3100.0300, L503.6550, L501.9985 ####[facility] [address] [place], [address] IG% 0.300 Normal 0.0-0.9 [facility] Comment on above: Result Comment: IG% - Immature Granulocytes (promyelocytes, myelocytes andmetamyelocytes) > 1% indicates that a LEFT SHIFT is Present. Performed By: #### L 3890.6202, L3410.9992, L3100.0460, L500.4100, L3890.6301, L3890.6102, L500.2500, L3300.1200, L800.1280, L803.2200, L100.0100, L503.6030, L3100.0300, L503.6550, L501.9985 ####[facility] [address] [facility] [place], [address] Lymphocytes/100 WBC (Bld) 21.4 % Normal 19-41 [facility] Comment on above: Performed By: #### L 3890.6202, L3410.9992, L3100.0460, L500.4100, L3890.6301, L3890.6102, L500.2500, L3300.1200, L800.1280, L803.2200, L100.0100, L503.6030, L3100.0300, L503.6550, L501.9985 ####[facility] [address] [place], [address] MCH (RBC) [Entitic mass] 34.9 pg High 27.0-32.0 [facility] Comment on above: Performed By: #### L 3890.6202, L3410.9992, L3100.0460, L500.4100, L3890.6301, L3890.6102, L500.2500, L3300.1200, L800.1280, L803.2200, L100.0100, L503.6030, L3100.0300, L503.6550, L501.9985 ####[facility] [address] [place], [address] MCHC (RBC) [Mass/Vol] 34.6 g/dL Normal 32-[address] [facility] Comment on above: Performed By: #### L 3890.6202, L3410.9992, L3100.0460, L500.4100, L3890.6301, L3890.6102, L500.2500, L3300.1200, L800.1280, L803.2200, L100.0100, L503.6030, L3100.0300, L503.6550, L501.9985 ####[facility] [address] [facility] [place], [address] MCV (RBC) [Entitic vol] 101.0 fL High 81-99 [facility] Comment on above: Performed By: #### L 3890.6202, L3410.9992, L3100.0460, L500.4100, L3890.6301, L3890.6102, L500.2500, L3300.1200, L800.1280, L803.2200, L100.0100, L503.6030, L3100.0300, L503.6550, L501.9985 ####[facility] [address] [facility] [place], [address] Monocytes/100 WBC (Bld) 12.9 % High 0-10 [facility] Comment on above: Performed By: #### L 3890.6202, L3410.9992, L3100.0460, L500.4100, L3890.6301, L3890.6102, L500.2500, L3300.1200, L800.1280, L803.2200, L100.0100, L503.6030, L3100.0300, L503.6550, L501.9985 ####[facility] [address] [facility]. [place], [place], [phone] Neutrophils/100 WBC (Bld) 61.3 % Normal 47-70 [facility] Comment on above: Performed By: #### L 3890.6202, L3410.9992, L3100.0460, L500.4100, L3890.6301, L3890.6102, L500.2500, L3300.1200, L800.1280, L803.2200, L100.0100, L503.6030, L3100.0300, L503.6550, L501.9985 ####[facility] [address] [facility] [place], [address] Nucleated RBC (Bld) [#/Vol] 0 10*3/uL Normal 0-5 [facility] Comment on above: Performed By: #### L 3890.6202, L3410.9992, L3100.0460, L500.4100, L3890.6301, L3890.6102, L500.2500, L3300.1200, L800.1280, L803.2200, L100.0100, L503.6030, L3100.0300, L503.6550, L501.9985 ####[facility] [address] [facility] [place], [address] Platelet mean volume (Bld) [Entitic vol] 10.4 fL Normal 6.2-12.0 [facility] Comment on above: Performed By: #### L 3890.6202, L3410.9992, L3100.0460, L500.4100, L3890.6301, L3890.6102, L500.2500, L3300.1200, L800.1280, L803.2200, L100.0100, L503.6030, L3100.0300, L503.6550, L501.9985 ####[facility] [address] [place], [address] Platelets (Bld) [#/Vol] 170 10*3/uL Normal 150-450 [facility] Comment on above: Performed By: #### L 3890.6202, L3410.9992, L3100.0460, L500.4100, L3890.6301, L3890.6102, L500.2500, L3300.1200, L800.1280, L803.2200, L100.0100, L503.6030, L3100.0300, L503.6550, L501.9985 ####[facility] [address] [place], [address] RBC (Bld) [#/Vol] 3.95 10*6/uL Low 4.2-5.4 [facility] Comment on above: Performed By: #### L 3890.6202, L3410.9992, L3100.0460, L500.4100, L3890.6301, L3890.6102, L500.2500, L3300.1200, L800.1280, L803.2200, L100.0100, L503.6030, L3100.0300, L503.6550, L501.9985 ####[facility] [address] [place], [address] RDW SD 49.8 fl High 35.1-43.9 [facility] Comment on above: Performed By: #### L 3890.6202, L3410.9992, L3100.0460, L500.4100, L3890.6301, L3890.6102, L500.2500, L3300.1200, L800.1280, L803.2200, L100.0100, L503.6030, L3100.0300, L503.6550, L501.9985 ####[facility] [address] [place], [place], [phone] WBC (Bld) [#/Vol] 3.0 10*3/uL Low 4.4-11.0 [facility] Comment on above: Performed By: #### L 3890.6202, L3410.9992, L3100.0460, L500.4100, L3890.6301, L3890.6102, L500.2500, L3300.1200, L800.1280, L803.2200, L100.0100, L503.6030, L3100.0300, L503.6550, L501.9985 ####[facility] [address] [facility] [address] [place], [place], [phone] Calculated very low density lipoprotein (VLDL) cholesterol measurementOrdered By: Vonda Mueller on 06-30-2024 Calculated very low density lipoprotein (VLDL) cholesterol measurement 20 mg/dL 5-40 [facility] Carbon dioxide, total [Moles /volume] in Central venous bloodOrdered By: Vonda Mueller on 06-30-2024 CO2 [Moles/Vol] 25.4 mmol/L 21.0-32.0 [facility] Chloride assayOrdered By: Tye Mueller on 06-30-2024 Chloride [Moles/Vol] 102 mmol/L 98-108 [facility] Eosinophil percentageOrdered By: Vonda Mueller on 06-30-2024 Eosinophils/100 WBC (Bld) 3.4 % 0-5 [facility] Erythrocyte distribution wid th ratioOrdered By: Vonda Mueller on 06-30-2024 Erythrocyte distribution width (RBC) [Ratio] 13.3 % 11.6-14.6 [facility] Erythrocyte distribution wid th standard deviationOrdered By: Vonda Mueller on 06-30-2024 Erythrocyte distribution width (RBC) [Ratio] 49.8 fl High 35.1-43.9 [facility] Ferritinon 06-30-2024 Ferritin [Mass/Vol] 176 ng/mL Normal 22-378 [facility] Comment on above: Performed By: #### L 3890.6202, L3410.9992, L3100.0460, L500.4100, L3890.6301, L3890.6102, L500.2500, L3300.1200, L800.1280, L803.2200, L100.0100, L503.6030, L3100.0300, L503.6550, L501.9985 ####[facility] [address] [place], [place], [id number] Glomerular filtration rate ( GFR) estimation/1.73 sq m using serum, plasma, or whole bOrdered By: Vonda Mueller on 06-30-2024 GFR/1.73 sq M.predicted among non-blacks MDRD (S/P/Bld) [Vol rate/Area] 87 mL/min/{1.73_m2} >60 [facility] Comment on above: mL/min/1.73m2 CKD-EP I Creatinine Equation (2020) Hematocrit Auto (Bld) [Volum e fraction]Ordered By: Vonda Mueller on 06-30-2024 Hematocrit (Bld) [Volume fraction] 39.9 % 37-47 [facility] Hemoglobin A1con 06-30-2024 HbA1c (Bld) [Mass fraction] 5.2 % Normal <=5.6 [facility] Comment on above: Result Comment: Norm al < 5.7 % Prediabetic 5.7 - 6.4 % Diabetic >or= 6.5 % Please note range changes. Performed By: #### L 3890.6202, L3410.9992, L3100.0460, L500.4100, L3890.6301, L3890.6102, L500.2500, L3300.1200, L800.1280, L803.2200, L100.0100, L503.6030, L3100.0300, L503.6550, L501.9985 ####[facility] [address] [place], [place], [address] Hemoglobin A1c percentageOrd ered By: Vonda Davidony on 06-30-2024 HbA1c (Bld) [Mass fraction] 5.2 % <5.7 [facility] Comment on above: Normal < 5.7 % Predi abetic 5.7 - 6.4 % Diabetic >or= 6.5 % Please note range changes. Hemoglobin measurementOrdere d By: Vonda Mueller on 06-30-2024 Hemoglobin (Bld) [Mass/Vol] 13.8 g/dL 12.0-15.0 [facility] Hepatitis B Surface Antibody on 06-30-2024 HEP B Surf Ab REAC Normal [facility] Comment on above: Result Comment: <8.5 mIU/mL: Non-Reactive8.5<= x <11.5 mIU/mL: Indeterminate>=11.5 mIU/mL: Reactive Non Reactive: Inconsistent with immunity less than <10 mIU/mL Reactive: Consistent with immunity greater than or equal to 10 mIU/mL Performed By: #### L 3890.6202, L3410.9992, L3100.0460, L500.4100, L3890.6301, L3890.6102, L500.2500, L3300.1200, L800.1280, L803.2200, L100.0100, L503.6030, L3100.0300, L503.6550, L501.9985 ####[facility] [address] [place], [address] Hepatitis C Antibodyon 06-30 Hepatitis C Ab Non-Reactive Normal Nonreactive [facility] Comment on above: Result Comment: Reac tive: Presumptive evidence of antibodies to HCV. [facility] for supplemental testing.Non-Reactive: Antibodies to HCV were not detected; does notexclude the possibility of exposure to HCVReactive Results are presumptive evidence of antibodies toHCV. Follow CDC recommendations for supplemental testing.Order confirmation testing: HCV Quant by PCR testing -[facility] #[id number] Non Reactive: < 0.8 Equivocal: >/= 0.8 to < 1.0 Reactive: >/= 1.0The CDC requires that a reactive/equivocal HCV antibodyresult be sent out for confirmation. HCV Quant by PCRtesting. Performed By: #### L 3890.6202, L3410.9992, L3100.0460, L500.4100, L3890.6301, L3890.6102, L500.2500, L3300.1200, L800.1280, L803.2200, L100.0100, L503.6030, L3100.0300, L503.6550, L501.9985 ####[facility] [address] [place], [place], [phone] Immature granulocytes/100 WB C Auto (Bld)Ordered By: Vonda Mueller on 06-30-2024 Immature granulocytes/100 WBC (Bld) 0.300 % 0.0-0.9 [facility] Comment on above: IG% - Immature Granu locytes (promyelocytes, myelocytes and metamyelocytes) > 1% indicates that a LEFT SHIFT is Present. Iron measurement (mass/mass) Ordered By: Vonda Mueller on 06-30-2024 Iron (Unsp spec) [Mass/Mass] 172 ug/dL High 50-170 [facility] Iron+Iron Binding Capacityon 06-30-2024 Iron [Mass/Vol] 172 ug/dL High 50-170 [facility] Comment on above: Performed By: #### L 3890.6202, L3410.9992, L3100.0460, L500.4100, L3890.6301, L3890.6102, L500.2500, L3300.1200, L800.1280, L803.2200, L100.0100, L503.6030, L3100.0300, L503.6550, L501.9985 ####[facility] [address] [facility] [address] [place], [place], [phone] IRON SATURATION 48.0 Normal 13-59 [facility] Comment on above: Performed By: #### L 3890.6202, L3410.9992, L3100.0460, L500.4100, L3890.6301, L3890.6102, L500.2500, L3300.1200, L800.1280, L803.2200, L100.0100, L503.6030, L3100.0300, L503.6550, L501.9985 ####[facility] [address] [facility]. [place], [place], [phone] TIBC 359 ug/dL Normal 250-450 [facility] Comment on above: Performed By: #### L 3890.6202, L3410.9992, L3100.0460, L500.4100, L3890.6301, L3890.6102, L500.2500, L3300.1200, L800.1280, L803.2200, L100.0100, L503.6030, L3100.0300, L503.6550, L501.9985 ####[facility] [address] [facility]. [place], [place], [phone] UIBC 187 ug/dL Low 228-428 [facility] Comment on above: Performed By: #### L 3890.6202, L3410.9992, L3100.0460, L500.4100, L3890.6301, L3890.6102, L500.2500, L3300.1200, L800.1280, L803.2200, L100.0100, L503.6030, L3100.0300, L503.6550, L501.9985 ####[facility] [address] [facility] [place], [address] L3890.6102on 06-30-2024 HEP B Surf Ag Non-Reactive Normal Nonreactive [facility] Comment on above: Result Comment: Reac tive: Presumptive evidence of HBV. Repeatedly reactivesamples must be confirmed using a neutralization test([employer] HBsAg Confirmatory Test)Non-Reactive: HBsAg not detected; does not exclude thepossibility of exposure to HBV Performed By: #### L 3890.6202, L3410.9992, L3100.0460, L500.4100, L3890.6301, L3890.6102, L500.2500, L3300.1200, L800.1280, L803.2200, L100.0100, L503.6030, L3100.0300, L503.6550, L501.9985 ####[facility] [address] [place], [address] LDL calc ser/plasOrdered By: Vonda Mueller on 06-30-2024 Cholesterol in LDL [Mass/Vol] 121 mg/dL [facility] Comment on above: Tttftgjwjx=446-175 m g/dL & Higher Xneg=079 mg/dL or greater Laboratory - Microbiology an d Antimicrobial susceptibilityOrdered By: Vonda Mueller on 06-30-2024 HBV surface Ag Ql (S) Non-Reactive Nonreactive [facility] Comment on above: Reactive: Presumptiv e evidence of HBV. Repeatedly reactive samples must be confirmed using a neutralization test ([employer] HBsAg Confirmatory Test)Non-Reactive: HBsAg not detected; does not exclude the possibility of exposure to HBV Lipid Profileon 06-30-2024 CHOL:HDL 2.95 Normal [facility] Comment on above: Performed By: #### L 3890.6202, L3410.9992, L3100.0460, L500.4100, L3890.6301, L3890.6102, L500.2500, L3300.1200, L800.1280, L803.2200, L100.0100, L503.6030, L3100.0300, L503.6550, L501.9985 ####[facility] [id number] [place], [place], [id number] Cholesterol [Mass/Vol] 214 mg/dL High <=200 [facility] Comment on above: Result Comment: Chol esterol level, Desirable <200 mg/dLBorderline high cholesterol 200-239 mg/dLHigh cholesterol >=240 mg/dLRecommendations of the NCEP Adult Treatment Panel for thefollowing risk-cutoff thresholds for the [place] Americanpulation. Performed By: #### L 3890.6202, L3410.9992, L3100.0460, L500.4100, L3890.6301, L3890.6102, L500.2500, L3300.1200, L800.1280, L803.2200, L100.0100, L503.6030, L3100.0300, L503.6550, L501.9985 ####[facility] [id number] [facility] [place], [address](272) Cholesterol in HDL [Mass/Vol] 73 mg/dL Normal [facility] Comment on above: Result Comment: [place] onal Cholesterol Education Program (NCEP) guidelines:<40 mg/dL: Low HDL-cholesterol (major risk factor for CHD)>= 60 mg/dL: High HDL-cholesterol (negative risk factor forCHD)HDL-cholesterol is affected by a number of factors, e.g.smoking, exercise, hormones, sex and age. Performed By: #### L 3890.6202, L3410.9992, L3100.0460, L500.4100, L3890.6301, L3890.6102, L500.2500, L3300.1200, L800.1280, L803.2200, L100.0100, L503.6030, L3100.0300, L503.6550, L501.9985 ####[facility] [id number] [facility] [place], [address] Cholesterol in LDL [Mass/Vol] 121 mg/dL Normal [facility] Comment on above: Result Comment: Bord irrbdz=378-575 mg/dL Higher Adsl=829 mg/dL or greater Performed By: #### L 3890.6202, L3410.9992, L3100.0460, L500.4100, L3890.6301, L3890.6102, L500.2500, L3300.1200, L800.1280, L803.2200, L100.0100, L503.6030, L3100.0300, L503.6550, L501.9985 ####[facility] [id number] [facility]. [place], [place], [id number] Cholesterol in VLDL [Mass/Vol] 20 mg/dL Normal 5-40 [facility] Comment on above: Performed By: #### L 3890.6202, L3410.9992, L3100.0460, L500.4100, L3890.6301, L3890.6102, L500.2500, L3300.1200, L800.1280, L803.2200, L100.0100, L503.6030, L3100.0300, L503.6550, L501.9985 ####[facility] [id number] [place], [address] Triglyceride [Mass/Vol] 101 mg/dL Normal [facility] Comment on above: Result Comment: The drugs N-Acetylcysteine and Metamizole may falselydepress this assay.Normal range: <150 mg/dLBorderline High: 150-199 mg/dLHigh: 200-499 mg/dLVery High: >500 mg/dL Performed By: #### L 3890.6202, L3410.9992, L3100.0460, L500.4100, L3890.6301, L3890.6102, L500.2500, L3300.1200, L800.1280, L803.2200, L100.0100, L503.6030, L3100.0300, L503.6550, L501.9985 ####[facility] [id number] [place], [place], [id number] MCV (mean corpuscular volume ) determinationOrdered By: Vonda Mueller on 06-30-2024 MCV (RBC) [Entitic vol] 101.0 fL High 81-99 [facility] Mean corpuscular hemoglobin (MCH) determinationOrdered By: Vonda Mueller on 06-30-2024 MCH (RBC) [Entitic mass] 34.9 pg High 27.0-32.0 [facility] Mean corpuscular hemoglobin concentration (MCHC) determinationOrdered By: Vonda Mueller on 06-30-2024 MCHC (RBC) [Mass/Vol] 34.6 g/dL 32-[address] [facility] Mean platelet volume determi nationOrdered By: Vonda Mueller on 06-30-2024 Platelet mean volume (Bld) [Entitic vol] 10.4 fL 6.2-12.0 [facility] Monocyte percentageOrdered B y: Vonda Mueller on 06-30-2024 Monocytes/100 WBC (Bld) 12.9 % High 0-10 [facility] Neutrophil percentageOrdered By: Vonda Mueller on 06-30-2024 Neutrophils/100 WBC (Bld) 61.3 % 47-70 [facility] No Panel InformationOrdered By: Vonda Mueller on 06-30-2024 Unsaturated Iron Binding Capacity 187 ug/dL Low 228-428 [facility] Nucleated red blood cell per centageOrdered By: Vonda Mueller on 06-30-2024 Nucleated RBC/100 WBC (Bld) [Ratio] 0 % 0-5 [facility] Platelet countOrdered By: Tye Mueller on 06-30-2024 Platelets (Bld) [#/Vol] 170 10*3/uL 150-450 [facility] Potassium measurement (mass/ volume)Ordered By: Vonda Mueller on 06-30-2024 Potassium (Unsp spec) [Mass/Vol] 4.2 mmol/L 3.3-5.1 [facility] RBC Auto (Bld) [#/Vol]Ordere d By: Vonda Mueller on 06-30-2024 RBC (Bld) [#/Vol] 3.95 10*6/uL Low 4.2-5.4 [facility] Screening total cholesterol/ high density lipoprotein (HDL) cholesterol ratioOrdered By: Vonda Mueller on 06-30-2024 Cholesterol.total/Chol esterol in HDL [Mass ratio] 2.95 {ratio} [facility] Serum classic neutrophil cyt oplasmic antibody assay (units/volume)Ordered By: Vonda Mueller on 06-30-2024 Neutrophil cytoplasmic Ab.classic Qn (S) <1:20 titer Neg:<1:20 [facility] Serum creatinine measurement (mass/volume)Ordered By: Vonda Mueller on 06-30-2024 Creatinine [Mass/Vol] 0.87 mg/dL 0.70-1.[address] [facility] Serum glucose measurement (m ass/volume)Ordered By: Vonda Mueller on 06-30-2024 Glucose [Mass/Vol] 100 mg/dL High 70-99 [facility] Serum hepatitis B virus core antibody detectionOrdered By: Vonda Mueller on 06-30-2024 HBV core Ab Ql (S) Negative Negative [facility] Serum hepatitis B virus surf luisito antibody detectionOrdered By: Vonda Mueller on 06-30-2024 HBV surface Ab Ql (S) REAC [facility] Comment on above: <8.5 mIU/mL: Non-[place] ctive8.5<= x <11.5 mIU/mL: Indeterminate>=11.5 mIU/mL: Reactive Non Reactive: Inconsistent with immunity less than <10 mIU/mL Reactive: Consistent with immunity greater than or equal to 10 mIU/mL Serum mitochondria antibody detectionOrdered By: Vonda Mueller on 06-30-2024 Mitochondria Ab Ql (S) <20.0 Units 0.0-20.[address] [facility] Comment on above: Negative 0.0 - 20.0 Equivocal 20.1 - 24.9 Positive >24.9Mitochondrial (M2) Antibodies are found in 90-96% ofpatients with primary biliary cirrhosis.Performed at: [facility] [address] [id number] Director: Jorgito Cunningham PhD, Phone: [phone] Serum or plasma actin IgG an tibody assay (units/volume)Ordered By: Vonda Mueller on 06-30-2024 Actin IgG Qn 5 Units 0-19 [facility] Comment on above: Negative 0 - 19 Weak positive 20 - 30 Moderate to strong positive >30 Actin Antibodies are found in 52-85% of patients with autoimmune hepatitis or chronic active hepatitis and in 22% of patients with primary biliary cirrhosis. Serum or plasma calcium ana maria urement (mass/volume)Ordered By: Vonda Mueller on 06-30-2024 Calcium [Mass/Vol] 9.4 mg/dL 7.6-11.0 [facility] Serum or plasma cholesterol in HDL measurement (mass/volume)Ordered By: Vonda Mueller on 06-30-2024 Cholesterol in HDL [Mass/Vol] 73 mg/dL >40 [facility] Comment on above: National Cholesterol Education Program (NCEP) guidelines:<40 mg/dL: Low HDL-cholesterol (major risk factor for CHD)>= 60 mg/dL: High HDL-cholesterol (negative risk factor for CHD)HDL-cholesterol is affected by a number of factors, e.g. smoking, exercise, hormones, sex and age. Serum or plasma cholesterol measurement (mass/volume)Ordered By: Vonda Mueller on 06-30-2024 Cholesterol [Mass/Vol] 214 mg/dL High <201 [facility] Comment on above: Cholesterol level, D esirable <200 mg/dLBorderline high cholesterol 200-239 mg/dLHigh cholesterol >=240 mg/dLRecommendations of the NCEP Adult Treatment Panel for the following risk-cutoff thresholds for the [place]ag[place] population. Serum or plasma ferritin blank surement (mass/volume)Ordered By: Vonda Mueller on 06-30-2024 Ferritin [Mass/Vol] 176 ng/mL 22-378 [facility] Serum or plasma iron saturat ion measurement (mass fraction)Ordered By: Vonda Mueller on 06-30-2024 Iron saturation [Mass fraction] 48.0 % 13-59 [facility] Serum or plasma urea nitroge n measurement (mass/volume)Ordered By: Vonda Mueller on 06-30-2024 Urea nitrogen [Mass/Vol] 16 mg/dL 4-19 [facility] Serum perinuclear neutrophil cytoplasmic antibody titer by immunofluorescenceOrdered By: Vonda Mueller on 06-30-2024 Neutrophil cytoplasmic Ab.perinuclear IF (S) [Titer] <1:20 titer Neg:<1:20 [facility] Comment on above: The presence of posi tive fluorescence exhibiting P-ANCA orC-ANCA patterns alone is not specific for the diagnosis ofWegener's Granulomatosis (WG) or microscopic polyangiitis.Decisions about treatment should not be based solely onANCA IFA results. The International ANCA Group Consensusrecommends follow up testing of positive sera with both PA-3 and MPO-ANCA enzyme immunoassays. As many as 5% serumsamples are positive only by EIA. Ref. AM J Clin Ckruos3462;111:507-513. Sodium levelOrdered By: Amina Mueller on 06-30-2024 Sodium [Moles/Vol] 139 mmol/L 133-145 [facility] Triglycerides measurementOrd ered By: Vonda Mueller on 06-30-2024 Triglyceride [Mass/Vol] 101 mg/dL <199 [facility] Comment on above: The drugs N-Acetylcy steine and Metamizole may falsely depress this assay. Normal range: <150 mg/dLBorderline High: 150-199 mg/dLHigh: 200-499 mg/dLVery High: >500 mg/dL White blood cell (WBC) count Ordered By: Vonda Mueller on 06-30-2024 WBC (Bld) [#/Vol] 3.0 10*3/uL Low 4.4-11.0 [facility] Gastroenterology Visit Repor ton 06-29-2024 Gastroenterology Visit Report Normal [facility] ABD Limited w/ Elastographyo n 06-27-2024 ABD Limited w/ Elastography Normal [facility] Urgent Care Visit Reporton 0 06-20-2024 Urgent Care Visit Report Normal [facility] CNOVon 05-20-2024 CNOV Office Visit (OBGYWM ) VIOLET HERNANDEZ ([id number]) 1985 F Date Time Provider Department 05/20/24 4:00 PM SHERLY NG OBCHRISTIANE During your visit today, we recorded the following information about you: Blood pressure Weight Height 100/60 62.1 kg 1.473 m Sherly Ng APRN.CNP 05/20/2024 7:27 PM 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 Violet is a 38 [...] discussed with the Patient or Patient's Authorized Roller Hand. As applicable, any other physician, advance practice provider, medical student, or other health professional student that will be observing or involved in the sensitive examination for educational or training purposes was discussed with the Patient or Authorized Roller Hand. The Patient or Authorized Roller Hand has agreed to proceed with the sensitive [...] external genitalia normal, normal Bartholin's glands, urethra, Marquez's glands, no vulvar lesions, good vaginal support, [...] liver enzymes before refills - PCP at [place] 4) Contraception: hysterectomy. Contraceptive options reviewed and information provided. 5) STD screening: Declined STD check. 6) Follow up one year or sooner as needed Sherly Ng APRN.CN (more content not included)... Normal [facility] Bilirubin Test strip Ql (U)O rdered By: Emily Sanders on 04-27-2024 Bilirubin Ql (U) Negative Negative [facility] Epithelial cells.squamous LM Ql (Urine sed)Ordered By: Emily Sanders on 04-27-2024 Epithelial cells.squamous LM.HPF (Urine sed) [#/Area] 0 /[HPF] 5-10 [facility] Glucose Ql (U)Ordered By: Eduardo Sanders on 04-27-2024 Urine Glucose (UA) Normal mg/dl Normal [facility] Internal Medicine Office Vis iton 04-27-2024 Internal Medicine Office Visit Normal [facility] Ketones Test strip Ql (U)Ord ered By: Emily Sanders on 04-27-2024 Ketones Ql (U) Negative Negative [facility] Microscopic analysis of urin e for red blood cells (RBC)Ordered By: Emily Sanders on 04-27-2024 Microscopic analysis of urine for red blood cells (RBC) 0 SEEN /hpf 0-5 [facility] Urine RBC 0 SEEN /hpf 0-5 [facility] Mucus LM Ql (Urine sed)Order ed By: Emily Sanders on 04-27-2024 Mucus Ql (Urine sed) 0 SEEN /hpf [facility] Nitrite Test strip Ql (U)Ord ered By: Emily Sanders on 04-27-2024 Nitrite Ql (U) Negative Negative [facility] Protein Test strip Ql (U)Ord ered By: Emily Sanders on 04-27-2024 Protein Ql (U) 15 mg/dl High Negative [facility] Squamous epithelial cells de tection in urine sediment by light microscopyOrdered By: Emily Sanders on 04-27-2024 Epithelial cells.squamous LM Ql (Urine sed) 0-5 SEEN /hpf 5-10 [facility] Urinalysis, Completeon 04-27 EPI,SQUAMOUS 0-5 SEEN Normal 5-10 [facility] Comment on above: Order Comment: MOODY TRINIDADOR TO SPECIFY Performed By: #### L 400.0001 ####[facility] [address] [place], [place], [id number] RBC 0 SEEN Normal 0-5 [facility] Comment on above: Order Comment: MOODY TRINIDADOR TO SPECIFY Performed By: #### L 400.0001 ####[facility] [address] [place], [place], [address] BACTERIA 0 SEEN Normal None Seen [facility] Comment on above: Order Comment: MOODY CTOR TO SPECIFY Performed By: #### L 400.0001 ####[facility] [address] [place], [place], [id number] Mucus Ql (Urine sed) 0 SEEN Normal [facility] Comment on above: Order Comment: MOODY CTOR TO SPECIFY Performed By: #### L 400.0001 ####[facility] [address] [place], [address] WBC 0 SEEN Normal 0-5 [facility] Comment on above: Order Comment: MOODY CTOR TO SPECIFY Performed By: #### L 400.0001 ####[facility] [address] [place], [place], [id number] Urine blood detectionOrdered By: Emily Sanders on 04-27-2024 Urine Occult Blood 10 /ul High Negative [facility] Urine clarityOrdered By: Kaleb Sanders on 04-27-2024 Clarity (U) Clear Clear [facility] Urine color determinationOrd ered By: Emily Sanders on 04-27-2024 Color (U) Yellow Yellow [facility] Urine glucose detectionOrder ed By: Emily Sanders on 04-27-2024 Glucose Ql (U) Normal mg/dl Normal [facility] Urine leukocyte esterase det ection by dipstickOrdered By: Emily Sanders on 04-27-2024 Leukocyte esterase Test strip Ql (U) 25 /ul High Negative [facility] Urine pHOrdered By: Miguel Sanders on 04-27-2024 pH (U) 6.0 [pH] 5.0 - 8.0 [facility] Urine sediment bacteria coun t by microscopy (number/high power field)Ordered By: Emily Sanders on 04-27-2024 Bacteria LM.HPF (Urine sed) [#/Area] 0 /[HPF] None Seen [facility] Urine specific gravity measu rementOrdered By: Emily Sanders on 04-27-2024 Specific gravity (U) [Rel density] 1.020 1.002-1.030 [facility] Urine urobilinogen measureme ntOrdered By: Emily Sanders on 04-27-2024 Urobilinogen Ql (U) Normal mg/dl Normal [facility] Urobilinogen Ql (U)Ordered B y: Emily Sanders on 04-27-2024 Urine Urobilinogen Normal mg/dl Normal [facility] White blood cell countOrdere d By: Emily Sanders on 04-27-2024 Urine WBC 0 SEEN /hpf 0-5 [facility] White blood cell count 0 SEEN /hpf 0-5 [facility] Oncology Visit Reporton 04-09 Oncology Visit Report Normal [facility] L3410.9998on 04-21-2024 [facility] Misc. COMMENT Normal . [facility] Comment on above: Order Comment: LG GR EEN SHEP WB [id number] FISH Result Comment: Test Ordered: [id number] CLL FISH PanelSpecimen Type Comment: CAMERON Reference Range: .BLOODCells Counted Comment: CAMERON Reference Range: .200/PROBECells Analyzed Comment: NISHA Reference Range: .200/PROBEFISH Result Comment: CAMERON Reference Range: .NORMAL CLL PANELInterpretation Comment: CAMERON Reference Range: . The CLL interphase fluorescence in situ hybridization(FISH) panel analysis was normal. There were no cells withCCND1-IGH fusion. No extra signals or deletions of HUNTER,chromosome 12, 13q, or TP53 were observed. SPECIFIC FISH RESULTS: CCND1/IGH: NORMAL . nuc maya 11q13(KVHX8m3),14q32(IGHx2)[200] HUNTER: NORMAL nuc maya 11q22.3(ATMx2)[200]. 12cen: NORMAL . nuc maya 12cen(C47S6i2)[200]. 13q: NORMAL . nuc maya 13q14.3(DLEUx2),13q34(JPEP6e5)[200]. TP53: NORMAL . nuc maya 17p13.1(TP53x2)[200] This analysis is limited to abnormalities detectableby the specific probes included in the study. FISH resultsshould be interpreted within the context of a fullcytogenetic analysis and hematologic evaluation. REFERENCES:. Cathy,(2013) Adv Exp Med Biol 792:193-214.PMID#[id number] . Jase et al.,(2011) Clin Lab Med31:649-658.PMID#[id number] This test was developed and its performacecharacteristics determined by [employer] ([employer]). It has not been cleared orapproved by the U.S. Food and Drug Administration. The DNAprobe vendor for this study was [employer] ([employer]).Director Review: Comment: CAMERON Reference Range: .Yee Galeana, PhD, FACMGPerformed at: [facility] [address] [facility], [facility], [place] [id number] Director: Moira Ramirez [facility], Phone: [phone] at: [facility]elaAtl[facility] InstituteSxxz[address] [place], [place] [id number] Director: Jorgito Cunningham PhD, Phone: [phone] Performed By: #### L 500.4050, L504.2610, L3410.9998, L100.0100 ####[facility] [address] [place], [place], [address] L3410.9998on 04-20-2024 [facility] COMMENT Normal . [facility] Comment on above: Order Comment: ROHIT HANNA WB [id number] CYTOMETRY Result Comment: Test Ordered: [id number] Flow panel: Leukemia/LymphomaFlow Interpretation Comment -Y Reference Range: .No significant immunophenotypic abnormality detected.Flow Comment Comment -Y Reference Range: .Recommend clinical/CBC correlation and follow up as appropriate.Clinical Information Comment -Y Reference Range: .A recent CBC was not available for review at the time this report wasprepared.Specimen Type Comment -Y Reference Range: .Peripheral bloodAssessment of Leukocytes Comment -Y Reference Range: .No monoclonal B cell population is detected.kappa:lambda ratio 1.5There is no loss of, or aberrant expression of, the oconnor T cell antigens tosuggest a neoplastic T cell process.CD4:CD8 ratio 0.9No circulating blasts are detected.There is no immunophenotypic evidence of abnormal myeloid maturation.Monocytes show partial aberrant expression of CD56, a finding that can beseen in association with both reactive/activated processes as well asneoplastic processes.Analysis of the leukocyte population shows: granulocytes 69%, rctyookiw81%, lymphocytes 19%, blasts <0.1%, B cells 2%, T cells 15%, NK cells 2%Viability Comment -Y Reference Range: .91%Analysis and Gating Strategy Comment [facility] Reference Range: .8 color analysis with CD45/SSC gatingMAZNCPhenotype Chart Comment -Y Reference Range: .CD2 Normal CD3 NormalCD4 Normal CD5 NormalCD7 Normal CD8 CxcnwwWS49 Normal CD11b CtdqqzHU68 Normal CD14 UifywaSR58 Normal CD19 UxtyqmCG66 Normal CD33 DomoalHX63 Normal CD38 RiklgtYO62 Normal CD56 See KenuDI70 Normal CD117 NormalHLA-DR Normal KAPPA NormalLAMBDA Normal CD64 NormalResulting Path Name Comment -Y Reference Range: .Cami Duckworth M.D. Ph.DComment: Comment TG Reference Range: .Each antibody in this assay was utilized to assess forpotential abnormalities of studied cell populations or tocharacterize identified abnormalities.This test was developed and its performance characteristicsdetermined by [employer]. It has not been cleared or approvedby the U.S. Food and Drug Administration.The FDA has determined that such clearance or approval isnot necessary. This test is used for clinical purposes. Itshould not be regarded as investigational or for research.Performed at: -[facility] [address] [place], [place] [id number] Director: Moira Ramirez [facility], Phone: [phone] at: [address] [id number] Director: Moira Ramirez MD, Phone: [phone] at: [facility] [address] [place], [place] [id number] Director: Moira Ramirez [facility], Phone: [phone] at: [address] [id number] Director: Jorgito Cunningham PhD, Phone: [phone] Performed By: #### L 3410.9998 ####[facility] [address] [place], [address] Absolute lymphocyte countOrd ered By: Gene Braun on 04-18-2024 Lymphocytes Auto (Unsp spec) [#/Vol] 0.62 10*3/uL Low 0.83-4.51 [facility] Absolute neutrophil countOrd ered By: Gene Braun on 04-18-2024 Neutrophils (Bld) [#/Vol] 1.9 10*3/uL Low 2.0-7.7 [facility] Anion gap in Serum or Plasma Ordered By: Gene Braun on 04-18-2024 Anion gap [Moles/Vol] 12 mmol/L 5-[address] [facility] Automated blood erythrocyte countOrdered By: Gene Braun on 04-18-2024 RBC (Bld) [#/Vol] 3.66 10*6/uL Low 4.2-5.4 [facility] Comment on above: Performed By: #### L 500.4050, L504.2610, L3410.9998, L100.0100 ####[facility] [address] [place], [address] Automated blood hematocrit ( percentage)Ordered By: Gene Braun on 04-18-2024 Hematocrit (Bld) [Volume fraction] 36.4 % Low 37-47 [facility] Comment on above: Performed By: #### L 500.4050, L504.2610, L3410.9998, L100.0100 ####[facility] [address] [place], [address] Automated lymphocyte count a s percentage of total leukocytesOrdered By: Gene Braun on 04-18-2024 Lymphocytes/100 WBC (Bld) 19.4 % Normal - [facility] Comment on above: Performed By: #### L 500.4050, L504.2610, L3410.9998, L100.0100 ####[facility] [address] [place], [address] Lymphocytes/100 WBC Auto (Unsp spec) 19.4 % - [facility] BUN/creatinine ratioOrdered By: Gene Bruan on 04-18-2024 Urea nitrogen/Creatinine [Mass ratio] 17.5 mg/mg 10- [facility] Basophil percentageOrdered B y: Gene Braun on 04-18-2024 Basophils/100 WBC (Bld) 0.6 % Normal 0-1 [facility] Comment on above: Performed By: #### L 500.4050, L504.2610, L3410.9998, L100.0100 ####[facility] [address] [place], [address] Bilirubin, totalOrdered By: Gene Braun on 04-18-2024 Bilirubin [Mass/Vol] 0.22 mg/dL 0.00-1.30 [facility] CBC W/Diff, Automatedon 04-09-2024 Absolute Lymph 0.62 X10 3/uL Low 0.83-4.51 [facility] Comment on above: Performed By: #### L 500.4050, L504.2610, L3410.9998, L100.0100 ####[facility] [address] [place], [address] Absolute Neut 1.9 X10 3/uL Low 2.0-7.7 [facility] Comment on above: Performed By: #### L 500.4050, L504.2610, L3410.9998, L100.0100 ####[facility] [address] [place], [address] IG% 0.300 Normal 0.0-0.9 [facility] Comment on above: Result Comment: IG% - Immature Granulocytes (promyelocytes, myelocytes andmetamyelocytes) > 1% indicates that a LEFT SHIFT is Present. Performed By: #### L 500.4050, L504.2610, L3410.9998, L100.0100 ####[facility] [address] [place], [address] Nucleated RBC (Bld) [#/Vol] 0 10*3/uL Normal 0-5 [facility] Comment on above: Performed By: #### L 500.4050, L504.2610, L3410.9998, L100.0100 ####[facility] [address] [place], [address] RDW SD 54.5 fl High 35.1-43.9 [facility] Comment on above: Performed By: #### L 500.4050, L504.2610, L3410.9998, L100.0100 ####[facility] [address] [place], [address] Carbon dioxide, total [Moles /volume] in Central venous bloodOrdered By: Gene Braun on 04-18-2024 CO2 [Moles/Vol] 22.8 mmol/L 21.0-32.0 [facility] Chloride assayOrdered By: Erin Braun on 04-18-2024 Chloride [Moles/Vol] 103 mmol/L 98-108 [facility] Comprehensive Metabolic Prof ilon 04-18-2024 Albumin [Mass/Vol] 4.2 g/dL Normal 3.5-5.0 [facility] Comment on above: Performed By: #### L 500.4050, L504.2610, L3410.9998, L100.0100 ####[facility] [address] [place], [address] Albumin/Globulin [Mass ratio] 1.7 {ratio} Normal 0.9-2.4 [facility] Comment on above: Performed By: #### L 500.4050, L504.2610, L3410.9998, L100.0100 ####[facility] [address] [place], [address] ALK PHOS 112 U/L High 35-104 [facility] Comment on above: Performed By: #### L 500.4050, L504.2610, L3410.9998, L100.0100 ####[facility] [address], [address] ALT [Catalytic activity/Vol] 111 U/L High <=34 [facility] Comment on above: Performed By: #### L 500.4050, L504.2610, L3410.9998, L100.0100 ####[facility] [address] [place], [address] AST [Catalytic activity/Vol] 48 U/L High <=31 [facility] Comment on above: Performed By: #### L 500.4050, L504.2610, L3410.9998, L100.0100 ####[facility] [address] [place], [address] Bilirubin [Mass/Vol] 0.22 mg/dL Normal 0.00-1.30 [facility] Comment on above: Performed By: #### L 500.4050, L504.2610, L3410.9998, L100.0100 ####[facility] [address] [place], [address] BUN/CRE 17.5 RATIO Normal 10-20 [facility] Comment on above: Performed By: #### L 500.4050, L504.2610, L3410.9998, L100.0100 ####[facility] [address] [place], [address] Calcium [Mass/Vol] 9.4 mg/dL Normal 7.6-11.0 [facility] Comment on above: Performed By: #### L 500.4050, L504.2610, L3410.9998, L100.0100 ####[facility] [address] [place], [address] Chloride [Moles/Vol] 103 mmol/L Normal 98-108 [facility] Comment on above: Performed By: #### L 500.4050, L504.2610, L3410.9998, L100.0100 ####[facility] [address] [place], [address] CO2 [Moles/Vol] 22.8 mmol/L Normal 21.0-32.0 [facility] Comment on above: Performed By: #### L 500.4050, L504.2610, L3410.9998, L100.0100 ####[facility] [address] [place], [address] Creatinine [Mass/Vol] 0.74 mg/dL Normal 0.70-1.[address] [facility] Comment on above: Performed By: #### L 500.4050, L504.2610, L3410.9998, L100.0100 ####[facility] [address] [place], [address] ECRCL 90.20 ml/min Normal 50-250 [facility] Comment on above: Performed By: #### L 500.4050, L504.2610, L3410.9998, L100.0100 ####[facility] [address] [place], [address] GAP 12 Normal 5-15 [facility] Comment on above: Performed By: #### L 500.4050, L504.2610, L3410.9998, L100.0100 ####[facility] [address] [place], [address] GFR/1.73 sq M.predicted among non-blacks MDRD (S/P/Bld) [Vol rate/Area] 105 mL/min/{1.73_m2} Normal >60 [facility] Comment on above: Result Comment: mL/m in/1.73m2 CKD-EPI Creatinine Equation (2020) Performed By: #### L 500.4050, L504.2610, L3410.9998, L100.0100 ####[facility] [address] [place], [address] Globulin (S) [Mass/Vol] 2.5 g/dL Normal 2.2-4.2 [facility] Comment on above: Performed By: #### L 500.4050, L504.2610, L3410.9998, L100.0100 ####[facility] [address] [place], [address] Glucose [Mass/Vol] 99 mg/dL Normal 70-99 [facility] Comment on above: Performed By: #### L 500.4050, L504.2610, L3410.9998, L100.0100 ####[facility] [address] [place], [address] Potassium [Moles/Vol] 4.3 mmol/L Normal 3.3-5.[address] [facility] Comment on above: Performed By: #### L 500.4050, L504.2610, L3410.9998, L100.0100 ####[facility] [address] [place], [address] Sodium [Moles/Vol] 137 mmol/L Normal 133-145 [facility] Comment on above: Performed By: #### L 500.4050, L504.2610, L3410.9998, L100.0100 ####[facility] [address] [place], [address] T PROT 6.6 g/dL Normal 5.9-8.4 [facility] Comment on above: Performed By: #### L 500.4050, L504.2610, L3410.9998, L100.0100 ####[facility] [address] [place], [address] Urea nitrogen [Mass/Vol] 13 mg/dL Normal 4-19 [facility] Comment on above: Performed By: #### L 500.4050, L504.2610, L3410.9998, L100.0100 ####[facility] [address] [place], [address] Eosinophil percentageOrdered By: Gene Braun on 04-18-2024 Eosinophils/100 WBC (Bld) 2.8 % Normal 0-5 [facility] Comment on above: Performed By: #### L 500.4050, L504.2610, L3410.9998, L100.0100 ####[facility] [address] [place], [address] Erythrocyte distribution wid th ratioOrdered By: Gene Braun on 04-18-2024 Erythrocyte distribution width (RBC) [Ratio] 15.2 % High 11.6-14.6 [facility] Comment on above: Performed By: #### L 500.4050, L504.2610, L3410.9998, L100.0100 ####[facility] [address] [place], [address] Erythrocyte distribution wid th standard deviationOrdered By: Gene Braun on 04-18-2024 Erythrocyte distribution width (RBC) [Entitic vol] 54.5 fL High 35.1-43.9 [facility] Erythrocyte distribution width (RBC) [Ratio] 54.5 fl High 35.1-43.9 [facility] Estimation of creatinine francisco aranceOrdered By: Gene Braun on 04-18-2024 Estimated Creatinine Clearance Calc 90.20 ml/min 50-250 [facility] FOLATES,SERUM (FOLIC ACID)on 04-18-2024 FOLATES,SERUM 20.00 ng/mL Normal 4.60-34.80 [facility] Comment on above: Order Comment: N Result Comment: Hemo lysis, Results will be affected, Requires Recollection. Performed By: #### L 506.0200 ####[facility] [address] [place], [address] Folate [Moles/Vol]Ordered By : Gene Braun on 04-18-2024 Serum Folate 20.00 ng/mL 4.60-34.80 [facility] Comment on above: Hemolysis, Results w ill be affected, Requires Recollection. Folate [Moles/volume] in Ser um or PlasmaOrdered By: Gene Braun on 04-18-2024 Folate [Moles/Vol] 20.00 ng/mL 4.60-34.80 [facility] Comment on above: Hemolysis, Results w ill be affected, Requires Recollection. GFR/1.73 sq M.predicted betty g non-blacks MDRD (S/P/Bld) [Vol rate/Area]Ordered By: Gene Braun on 04-18-2024 Estimated GFR (MDRD) Non-Af Amer 105 >60 [facility] Comment on above: mL/min/1.73m2 CKD-EP I Creatinine Equation (2020) Glomerular filtration rate ( GFR) estimation/1.73 sq m using serum, plasma, or whole bOrdered By: Gene Braun on 04-18-2024 GFR/1.73 sq M.predicted among non-blacks MDRD (S/P/Bld) [Vol rate/Area] 105 mL/min/{1.73_m2} >60 [facility] Comment on above: mL/min/1.73m2 CKD-EP I Creatinine Equation (2020) Hemoglobin measurementOrdere d By: Gene Braun on 04-18-2024 Hemoglobin (Bld) [Mass/Vol] 12.6 g/dL Normal 12.0-15.0 [facility] Comment on above: Performed By: #### L 500.4050, L504.2610, L3410.9998, L100.0100 ####[facility] [address] [place], [address] Immature granulocytes/100 WB C Auto (Bld)Ordered By: Gene Braun on 04-18-2024 Immature granulocytes/100 WBC (Bld) 0.300 % 0.0-0.9 [facility] Comment on above: IG% - Immature Granu locytes (promyelocytes, myelocytes and metamyelocytes) > 1% indicates that a LEFT SHIFT is Present. L503.0106on 04-18-2024 Cobalamin (Vitamin B12) [Mass/Vol] 525 pg/mL Normal 180-914 [facility] Comment on above: Performed By: #### L 503.0106 ####[facility] [address] [place], [address] LDHon 04-18-2024 LDH 217 U/L Normal 84-246 [facility] Comment on above: Order Comment: 1 Performed By: #### L 500.4050, L504.2610, L3410.9998, L100.0100 ####[facility] [address] [place], [address] Laboratory - Chemistry and C hemistry - challengeOrdered By: Gene Braun on 04-18-2024 AST [Catalytic activity/Vol] 48 U/L High <32 [facility] Lactate dehydrogenase (LDH) measurementOrdered By: Gene Braun on 04-18-2024 LDH [Catalytic activity/Vol] 217 U/L 84-246 [facility] Lymphocytes Auto (Unsp spec) [#/Vol]Ordered By: Gene Braun on 04-18-2024 Lymphocytes (Bld) [#/Vol] 0.62 10*3/uL Low 0.83-4.51 [facility] MCV (mean corpuscular volume ) determinationOrdered By: Gene Braun on 04-18-2024 MCV (RBC) [Entitic vol] 99.5 fL High 81-99 [facility] Comment on above: Performed By: #### L 500.4050, L504.2610, L3410.9998, L100.0100 ####[facility] [address] [place], [address] Mean corpuscular hemoglobin (MCH) determinationOrdered By: Gene Braun on 04-18-2024 MCH (RBC) [Entitic mass] 34.4 pg High 27.0-32.0 [facility] Comment on above: Performed By: #### L 500.4050, L504.2610, L3410.9998, L100.0100 ####[facility] [address] [place], [address] Mean corpuscular hemoglobin concentration (MCHC) determinationOrdered By: Gene Braun on 04-18-2024 MCHC (RBC) [Mass/Vol] 34.6 g/dL Normal 32-[address] [facility] Comment on above: Performed By: #### L 500.4050, L504.2610, L3410.9998, L100.0100 ####[facility] [address] [place], [address] Mean platelet volume determi nationOrdered By: Gene Braun on 04-18-2024 Platelet mean volume (Bld) [Entitic vol] 10.6 fL Normal 6.2-12.0 [facility] Comment on above: Performed By: #### L 500.4050, L504.2610, L3410.9998, L100.0100 ####[facility] [address] [place], [address] Monocyte percentageOrdered B y: Gene Braun on 04-18-2024 Monocytes/100 WBC (Bld) 18.2 % High 0-10 [facility] Comment on above: Performed By: #### L 500.4050, L504.2610, L3410.9998, L100.0100 ####[facility] [address] [place], [address] Neutrophil percentageOrdered By: Gene Braun on 04-18-2024 Neutrophils/100 WBC (Bld) 58.7 % Normal 47-70 [facility] Comment on above: Performed By: #### L 500.4050, L504.2610, L3410.9998, L100.0100 ####[facility] [address] [place], [address] Nucleated red blood cell per centageOrdered By: Gene Braun on 04-18-2024 Nucleated RBC/100 WBC (Bld) [Ratio] 0 % 0-5 [facility] Platelet countOrdered By: Erin Braun on 04-18-2024 Platelets (Bld) [#/Vol] 159 10*3/uL Normal 150-450 [facility] Comment on above: Performed By: #### L 500.4050, L504.2610, L3410.9998, L100.0100 ####[facility] [address] [place], [address] Potassium (Unsp spec) [Mass/ Vol]Ordered By: Gene Braun on 04-18-2024 Potassium [Moles/Vol] 4.3 mmol/L 3.3-5.[address] [facility] Potassium measurement (mass/ volume)Ordered By: Gene Braun on 04-18-2024 Potassium (Unsp spec) [Mass/Vol] 4.3 mmol/L 3.3-5.1 [facility] Serum creatinine measurement (mass/volume)Ordered By: Gene Braun on 04-18-2024 Creatinine [Mass/Vol] 0.74 mg/dL 0.70-1.[address] [facility] Serum globulin measurementOr dered By: Gene Braun on 04-18-2024 Globulin (S) [Mass/Vol] 2.5 g/dL 2.2-4.2 [facility] Serum glucose measurement (m ass/volume)Ordered By: Geen Braun on 04-18-2024 Glucose [Mass/Vol] 99 mg/dL 70-99 [facility] Serum or plasma alanine valencia otransferase (ALT) measurementOrdered By: Gene Braun on 04-18-2024 ALT [Catalytic activity/Vol] 111 U/L High <35 [facility] Serum or plasma albumin ana maria urement (mass/volume)Ordered By: Gene Braun on 04-18-2024 Albumin [Mass/Vol] 4.2 g/dL 3.5-5.0 [facility] Serum or plasma albumin/glob ulin mass ratioOrdered By: Gene Braun on 04-18-2024 Albumin/Globulin [Mass ratio] 1.7 {ratio} 0.9-2.4 [facility] Serum or plasma alkaline juana sphatase measurementOrdered By: Gene Braun on 04-18-2024 ALP [Catalytic activity/Vol] 112 U/L High 35-104 [facility] Serum or plasma calcium ana maria urement (mass/volume)Ordered By: Gene Braun on 04-18-2024 Calcium [Mass/Vol] 9.4 mg/dL 7.6-11.0 [facility] Serum or plasma urea nitroge n measurement (mass/volume)Ordered By: Gene Braun on 04-18-2024 Urea nitrogen [Mass/Vol] 13 mg/dL 4-19 [facility] Sodium levelOrdered By: Luke Braun on 04-18-2024 Sodium [Moles/Vol] 137 mmol/L 133-145 [facility] Total proteinOrdered By: Pop Braun on 04-18-2024 Protein [Mass/Vol] 6.6 g/dL 5.9-8.4 [facility] Vitamin B12 ser/plasOrdered By: Gene Braun on 04-18-2024 Cobalamin (Vitamin B12) [Mass/Vol] 525 pg/mL 180-914 [facility] White blood cell (WBC) count Ordered By: Gene Braun on 04-18-2024 WBC (Bld) [#/Vol] 3.2 10*3/uL Low 4.4-11.0 [facility] Comment on above: Performed By: #### L 500.4050, L504.2610, L3410.9998, L100.0100 ####[facility] [address] [place], [address] Direct serum free thyroxine (FT4) measurementOrdered By: Emily Sanders on 04-04-2024 Free T4 [Mass/Vol] 1.20 ng/dL 0.76-1.46 [facility] Internal Medicine Office Vis iton 04-04-2024 Internal Medicine Office Visit Normal [facility] Serum or plasma thyroid stim ulating hormone (TSH) measurement (units/volume)Ordered By: Emily Sanders on 04-04-2024 TSH Qn 0.705 uIU/mL 0.358-3.740 [facility] T4 Free Directon 04-04-2024 T4 FREE DIRECT 1.20 ng/dL Normal 0.76-1.46 [facility] Comment on above: Performed By: #### L 501.9520, L506.0400 ####[facility] [address] [place], [place], [id number] TSH QnOrdered By: Emily Sanders on 04-04-2024 Thyroid Stimulating Hormone (TSH) 0.705 uIU/mL 0.358-3.740 [facility] Thyroid Stim Hormone (TSH)on 04-04-2024 TSH 0.705 uIU/mL Normal 0.358-3.740 [facility] Comment on above: Performed By: #### L 501.9520, L506.0400 ####[facility] [address] [place], [address] 12 Lead EKGon 04-03-2024 12 Lead EKG Normal [facility] Absolute lymphocyte countOrd ered By: Willy Burt on 04-03-2024 Lymphocytes Auto (Unsp spec) [#/Vol] 0.39 10*3/uL Low 0.83-4.51 [facility] Absolute neutrophil countOrd ered By: Willy Carmel on 04-03-2024 Neutrophils (Bld) [#/Vol] 3.0 10*3/uL 2.0-7.7 [facility] Automated lymphocyte count a s percentage of total leukocytesOrdered By: Willy Burt on 04-03-2024 Lymphocytes/100 WBC Auto (Unsp spec) 10.7 % Low 19-41 [facility] Basic Metabolic Profile (BMP )on 04-03-2024 BUN/CRE 13.4 RATIO Normal 10-20 [facility] Comment on above: Order Comment: 'TROP ' Serial specimen #1, #2 or #3: 1 Performed By: #### L 501.4020, L100.0100, L500.2500 ####[facility] [address] [place], [place], [id number] CA,Total 9.4 mg/dL Normal 8.5-10.1 [facility] Comment on above: Order Comment: 'TROP ' Serial specimen #1, #2 or #3: 1 Performed By: #### L 501.4020, L100.0100, L500.2500 ####[facility] [address] [place], [address] Chloride [Moles/Vol] 109 mmol/L High 98-107 [facility] Comment on above: Order Comment: 'TROP ' Serial specimen #1, #2 or #3: 1 Performed By: #### L 501.4020, L100.0100, L500.2500 ####[facility] [address] [place], [address] CO2 [Moles/Vol] 21.0 mmol/L Normal 21.0-32.0 [facility] Comment on above: Order Comment: 'TROP ' Serial specimen #1, #2 or #3: 1 Performed By: #### L 501.4020, L100.0100, L500.2500 ####[facility] [address] [place], [address] Creatinine [Mass/Vol] 0.90 mg/dL Normal 0.55-1.[address] [facility] Comment on above: Order Comment: 'TROP ' Serial specimen #1, #2 or #3: 1 Result Comment: The validity of the calculated GFR GFRAA in patients over70 years has not been determined. Clinical correlation isessential. Performed By: #### L 501.4020, L100.0100, L500.2500 ####[facility] [address] [place], [address] ECRCL 69.39 ml/min Normal [facility] Comment on above: Order Comment: 'TROP ' Serial specimen #1, #2 or #3: 1 Performed By: #### L 501.4020, L100.0100, L500.2500 ####[facility] [address] [place], [address] EST GFR - AA 90 mL/min Normal >60 [facility] Comment on above: Order Comment: 'TROP ' Serial specimen #1, #2 or #3: 1 Result Comment: Afri can Malagasy GFR Calc Performed By: #### L 501.4020, L100.0100, L500.2500 ####[facility] [address] [place], [address] GAP 8 Normal 5-15 [facility] Comment on above: Order Comment: 'TROP ' Serial specimen #1, #2 or #3: 1 Performed By: #### L 501.4020, L100.0100, L500.2500 ####[facility] [address] [place], [address] GFR/1.73 sq M.predicted among non-blacks MDRD (S/P/Bld) [Vol rate/Area] 74 mL/min/{1.73_m2} Normal >60 [facility] Comment on above: Order Comment: 'TROP ' Serial specimen #1, #2 or #3: 1 Result Comment: Non- GFR Calc Performed By: #### L 501.4020, L100.0100, L500.2500 ####[facility] [address] [place], [address] Glucose [Mass/Vol] 142 mg/dL High 74-106 [facility] Comment on above: Order Comment: 'TROP ' Serial specimen #1, #2 or #3: 1 Result Comment: Fast ing Glucose result greater than or equal to 126 mg/dLsuggests DIABETES MELLITUS per A.D.A. criteria. Performed By: #### L 501.4020, L100.0100, L500.2500 ####[facility] [address] [place], [address] Potassium [Moles/Vol] 4.7 mmol/L Normal 3.5-5.[address] [facility] Comment on above: Order Comment: 'TROP ' Serial specimen #1, #2 or #3: 1 Performed By: #### L 501.4020, L100.0100, L500.2500 ####[facility] [address] [place], [address] Sodium [Moles/Vol] 138 mmol/L Normal 136-145 [facility] Comment on above: Order Comment: 'TROP ' Serial specimen #1, #2 or #3: 1 Performed By: #### L 501.4020, L100.0100, L500.2500 ####[facility] [address] [place], [address] Urea nitrogen [Mass/Vol] 12 mg/dL Normal 7-18 [facility] Comment on above: Order Comment: 'TROP ' Serial specimen #1, #2 or #3: 1 Performed By: #### L 501.4020, L100.0100, L500.2500 ####[facility] [address] [place], [address] Basophil percentageOrdered B y: Willy Burt on 04-03-2024 Basophils/100 WBC (Bld) 0.3 % 0-1 [facility] Blood urea nitrogen (BUN)/cr eatinine ratioOrdered By: Willy Burt on 04-03-2024 Urea nitrogen/Creatinine [Mass ratio] 13.4 mg/mg 10-20 [facility] CBC W/Diff, Automatedon 03-13 Absolute Lymph 0.39 X10 3/uL Low 0.83-4.51 [facility] Comment on above: Order Comment: REDRA W. PREVIOUS SPECIMEN REJECTED DUE TOQNS. 04/03/24 1107 Liza Sinha. Performed By: #### L 100.0100 ####[facility] [address] [place], [address] Absolute Neut 3.0 X10 3/uL Normal 2.0-7.7 [facility] Comment on above: Order Comment: REDRA W. PREVIOUS SPECIMEN REJECTED DUE TOQNS. 04/03/24 1107 Liza Brioneszano. Performed By: #### L 100.0100 ####[facility] [address] [place], [address] Basophils/100 WBC (Bld) 0.3 % Normal 0-1 [facility] Comment on above: Order Comment: REDRA W. PREVIOUS SPECIMEN REJECTED DUE TOQNS. 04/03/24 1107 Liza Sinha. Performed By: #### L 100.0100 ####[facility] [address] [place], [address] Eosinophils/100 WBC (Bld) 0.0 % Normal 0-5 [facility] Comment on above: Order Comment: REDRA W. PREVIOUS SPECIMEN REJECTED DUE TOQNS. 04/03/24 1107 Liza Sinha. Performed By: #### L 100.0100 ####[facility] [address] [place], [address] Erythrocyte distribution width (RBC) [Ratio] 14.3 % Normal 11.6-14.6 [facility] Comment on above: Order Comment: REDRA W. PREVIOUS SPECIMEN REJECTED DUE TOQNS. 04/03/24 1107 Liza Sinha. Performed By: #### L 100.0100 ####[facility] [address] [place], [address] Hematocrit (Bld) [Volume fraction] 36.7 % Low 37-47 [facility] Comment on above: Order Comment: REDRA W. PREVIOUS SPECIMEN REJECTED DUE TOQNS. 04/03/24 1107 Liza Sinha. Performed By: #### L 100.0100 ####[facility] [address] [place], [address] Hemoglobin (Bld) [Mass/Vol] 12.7 g/dL Normal 12.0-15.0 [facility] Comment on above: Order Comment: REDRA W. PREVIOUS SPECIMEN REJECTED DUE TOQNS. 04/03/24 1107 Liza Sinha. Performed By: #### L 100.0100 ####[facility] [address] [place], [address] IG% 0.800 Normal 0.0-0.9 [facility] Comment on above: Order Comment: REDRA W. PREVIOUS SPECIMEN REJECTED DUE TOQNS. 04/03/24 1107 Liza Sinha. Result Comment: IG% - Immature Granulocytes (promyelocytes, myelocytes andmetamyelocytes) > 1% indicates that a LEFT SHIFT is Present. Performed By: #### L 100.0100 ####[facility] [address] [place], [address] Lymphocytes/100 WBC (Bld) 10.7 % Low 19-41 [facility] Comment on above: Order Comment: REDRA W. PREVIOUS SPECIMEN REJECTED DUE TOQNS. 04/03/24 1107 Liza Sinha. Performed By: #### L 100.0100 ####[facility] [address] [place], [address] MCH (RBC) [Entitic mass] 33.5 pg High 27.0-32.0 [facility] Comment on above: Order Comment: REDRA W. PREVIOUS SPECIMEN REJECTED DUE TOQNS. 04/03/24 1107 Liza Sinha. Performed By: #### L 100.0100 ####[facility] [address] [place], [address] MCHC (RBC) [Mass/Vol] 34.6 g/dL Normal 32-[address] [facility] Comment on above: Order Comment: REDRA W. PREVIOUS SPECIMEN REJECTED DUE TOQNS. 04/03/24 1107 Liza Sinha. Performed By: #### L 100.0100 ####[facility] [address] [place], [address] MCV (RBC) [Entitic vol] 96.8 fL Normal 81-99 [facility] Comment on above: Order Comment: REDRA W. PREVIOUS SPECIMEN REJECTED DUE TOQNS. 04/03/24 1107 Liza Sinha. Performed By: #### L 100.0100 ####[facility] [address] [place], [address] Monocytes/100 WBC (Bld) 5.5 % Normal 0-10 [facility] Comment on above: Order Comment: REDRA W. PREVIOUS SPECIMEN REJECTED DUE TOQNS. 04/03/24 1107 Liza Sinha. Performed By: #### L 100.0100 ####[facility] [address] [place], [address] Neutrophils/100 WBC (Bld) 82.7 % High 47-70 [facility] Comment on above: Order Comment: REDRA W. PREVIOUS SPECIMEN REJECTED DUE TOQNS. 04/03/24 1107 Liza Sinha. Performed By: #### L 100.0100 ####[facility] [address] [place], [address] Nucleated RBC (Bld) [#/Vol] 0 10*3/uL Normal 0-5 [facility] Comment on above: Order Comment: REDRA W. PREVIOUS SPECIMEN REJECTED DUE TOQNS. 04/03/24 1107 Liza Sinha. Performed By: #### L 100.0100 ####[facility] [address] [place], [address] Platelet mean volume (Bld) [Entitic vol] 9.9 fL Normal 6.2-12.0 [facility] Comment on above: Order Comment: REDRA W. PREVIOUS SPECIMEN REJECTED DUE TOQNS. 04/03/24 1107 Liza Sinha. Performed By: #### L 100.0100 ####[facility] [address] [place], [address] Platelets (Bld) [#/Vol] 132 10*3/uL Low 150-450 [facility] Comment on above: Order Comment: REDRA W. PREVIOUS SPECIMEN REJECTED DUE TOQNS. 04/03/24 1107 Liza Sinha. Performed By: #### L 100.0100 ####[facility] [address] [place], [address] RBC (Bld) [#/Vol] 3.79 10*6/uL Low 4.2-5.4 [facility] Comment on above: Order Comment: REDRA W. PREVIOUS SPECIMEN REJECTED DUE TOQNS. 04/03/24 1107 Liza Sinha. Performed By: #### L 100.0100 ####[facility] [address] [place], [address] RDW SD 50.6 fl High 35.1-43.9 [facility] Comment on above: Order Comment: REDRA W. PREVIOUS SPECIMEN REJECTED DUE TOQNS. 04/03/24 1107 Liza Sinha. Performed By: #### L 100.0100 ####[facility] [address] [place], [address] WBC (Bld) [#/Vol] 3.6 10*3/uL Low 4.4-11.0 [facility] Comment on above: Order Comment: REDRA W. PREVIOUS SPECIMEN REJECTED DUE TOQNS. 04/03/247 Liza Sinha. Performed By: #### L 100.0100 ####[facility] [address] [place], [address] Absolute Neut Normal 2.0-7.7 [facility] Comment on above: Result Comment: This specimen has been REJECTED due to Laboratory criteria:Quanity Not Sufficient.RAEGAN has been notified of need of recollection.04/03/24 1106 Liza Sinha Performed By: #### L 501.4020, L100.0100, L500.2500 ####[facility] [address] [place], [address] HCT Normal 37-47 [facility] Comment on above: Result Comment: This specimen has been REJECTED due to Laboratory criteria:Quanity Not Sufficient.RAEGAN has been notified of need of recollection.04/03/24 1106 Liza Sinha Performed By: #### L 501.4020, L100.0100, L500.2500 ####[facility] [address] [place], [address] HGB Normal 12.0-15.0 [facility] Comment on above: Result Comment: This specimen has been REJECTED due to Laboratory criteria:Quanity Not Sufficient.RAEGAN has been notified of need of recollection.04/03/24 1106 Liza Sinha Performed By: #### L 501.4020, L100.0100, L500.2500 ####[facility] [address] [place], [address] MCH Normal 27.0-32.0 [facility] Comment on above: Result Comment: This specimen has been REJECTED due to Laboratory criteria:Quanity Not Sufficient.RAEGAN has been notified of need of recollection.04/03/24 1106 Liza Sinha Performed By: #### L 501.4020, L100.0100, L500.2500 ####[facility] [address] [place], [address] MCHC Normal 32-36 [facility] Comment on above: Result Comment: This specimen has been REJECTED due to Laboratory criteria:Quanity Not Sufficient.RAEGAN has been notified of need of recollection.04/03/24 1106 Liza Sinha Performed By: #### L 501.4020, L100.0100, L500.2500 ####[facility] [address] [place], [address] MCV Normal 81-99 [facility] Comment on above: Result Comment: This specimen has been REJECTED due to Laboratory criteria:Quanity Not Sufficient.RAEGAN has been notified of need of recollection.04/03/24 1106 Liza Sinha Performed By: #### L 501.4020, L100.0100, L500.2500 ####[facility] [address] [place], [address] NEUT% Normal 47-70 [facility] Comment on above: Result Comment: This specimen has been REJECTED due to Laboratory criteria:Quanity Not Sufficient.RAEGAN has been notified of need of recollection.04/03/24 1106 Liza Sinha Performed By: #### L 501.4020, L100.0100, L500.2500 ####[facility] [address] [place], [address] PLT Normal 150-450 [facility] Comment on above: Result Comment: This specimen has been REJECTED due to Laboratory criteria:Quanity Not Sufficient.RAEGAN has been notified of need of recollection.04/03/24 1106 Liza Sinha Performed By: #### L 501.4020, L100.0100, L500.2500 ####[facility] [address] [place], [address] RBC Normal 4.2-5.4 [facility] Comment on above: Result Comment: This specimen has been REJECTED due to Laboratory criteria:Quanity Not Sufficient.RAEGAN has been notified of need of recollection.04/03/24 1106 Liza Sinha Performed By: #### L 501.4020, L100.0100, L500.2500 ####[facility] [address] [place], [address] RDW CV Normal 11.6-14.6 [facility] Comment on above: Result Comment: This specimen has been REJECTED due to Laboratory criteria:Quanity Not Sufficient.RAEGAN has been notified of need of recollection.04/03/24 1106 Liza Sinha Performed By: #### L 501.4020, L100.0100, L500.2500 ####[facility] [address] [place], [address] RDW SD Normal 35.1-43.9 [facility] Comment on above: Result Comment: This specimen has been REJECTED due to Laboratory criteria:Quanity Not Sufficient.RAEGAN has been notified of need of recollection.04/03/24 1106 Liza Sinha Performed By: #### L 501.4020, L100.0100, L500.2500 ####[facility] [address] [place], [address] WBC Normal 4.4-11.0 [facility] Comment on above: Result Comment: This specimen has been REJECTED due to Laboratory criteria:Quanity Not Sufficient.RAEGAN has been notified of need of recollection.04/03/24 1106 Liza Sinha Performed By: #### L 501.4020, L100.0100, L500.2500 ####[facility] [address] [place], [address] Carbon dioxide measurementOr dered By: Willy Burt on 04-03-2024 CO2 [Moles/Vol] 21.0 mmol/L 21.0-32.0 [facility] Chest PA and Lateralon 04-03 Chest PA and Lateral Normal [facility] Chloride measurementOrdered By: Willy Burt on 04-03-2024 Chloride [Moles/Vol] 109 mmol/L High 98-107 [facility] Emergency Department Summary on 04-03-2024 Emergency Department Summary Normal [facility] Eosinophil percentageOrdered By: Willy Burt on 04-03-2024 Eosinophils/100 WBC (Bld) 0.0 % 0-5 [facility] Erythrocyte distribution wid th ratioOrdered By: Willy Burt on 04-03-2024 Erythrocyte distribution width (RBC) [Ratio] 14.3 % 11.6-14.6 [facility] Erythrocyte distribution wid th standard deviationOrdered By: Willy Burt on 04-03-2024 Erythrocyte distribution width (RBC) [Entitic vol] 50.6 fL High 35.1-43.9 [facility] Erythrocyte distribution width (RBC) [Ratio] 50.6 fl High 35.1-43.9 [facility] Estimated glomerular filtrat ion rate (GFR) AmericanOrdered By: Willy Burt on 04-03-2024 Estimated GFR (MDRD) Amer 90 mL/min >60 [facility] Comment on above: GFR Calc Estimation of creatinine francisco aranceOrdered By: Willy Burt on 04-03-2024 Estimated Creatinine Clearance Calc 69.39 ml/min [facility] Glomerular filtration rate ( GFR) estimationOrdered By: Willy Burt on 04-03-2024 Estimated GFR (MDRD) Non-Af Amer 74 mL/min >60 [facility] Comment on above: Non- GFR Calc GFR/1.73 sq M.predicted among non-blacks MDRD (S/P/Bld) [Vol rate/Area] 74 mL/min/{1.73_m2} >60 [facility] Comment on above: Non- GFR Calc Glucose measurementOrdered B y: Willy Burt on 04-03-2024 Glucose [Mass/Vol] 142 mg/dL High 74-106 [facility] Comment on above: Fasting Glucose resu lt greater than or equal to 126 mg/dL suggests DIABETES MELLITUS per A.D.A. criteria. Hematocrit Auto (Bld) [Volum e fraction]Ordered By: Willy Burt on 04-03-2024 Hematocrit (Bld) [Volume fraction] 36.7 % Low 37-47 [facility] Hemoglobin measurementOrdere d By: Willy Burt on 04-03-2024 Hemoglobin (Bld) [Mass/Vol] 12.7 g/dL 12.0-15.0 [facility] Immature granulocytes/100 WB C Auto (Bld)Ordered By: Willy Burt on 04-03-2024 Immature granulocytes/100 WBC (Bld) 0.800 % 0.0-0.9 [facility] Comment on above: IG% - Immature Granu locytes (promyelocytes, myelocytes and metamyelocytes) > 1% indicates that a LEFT SHIFT is Present. L501.4020on 04-03-2024 TROPONIN-I HS 4 pg/mL Normal 3.0-54.0 [facility] Comment on above: Order Comment: 'TROP ' Serial specimen #1, #2 or #3: 1 Result Comment: Odilia thompson Note: New Test Units and Gender Specific Reference Ranges. For more information see Policy Stat Procedure [place] High Sensitivity Troponin (TNIH) and attachments. Performed By: #### L 501.4020, L100.0100, L500.2500 ####[facility] [address] [place], [address] Lymphocytes Auto (Unsp spec) [#/Vol]Ordered By: Willy Burt on 04-03-2024 Lymphocytes (Bld) [#/Vol] 0.39 10*3/uL Low 0.83-4.51 [facility] Lymphocytes/100 WBC Auto (Un sp spec)Ordered By: Willy Burt on 04-03-2024 Lymphocytes/100 WBC (Bld) 10.7 % Low 19-41 [facility] MCV (mean corpuscular volume ) determinationOrdered By: Willy Burt on 04-03-2024 MCV (RBC) [Entitic vol] 96.8 fL 81-99 [facility] Mean corpuscular hemoglobin (MCH) determinationOrdered By: Willy Burt on 04-03-2024 MCH (RBC) [Entitic mass] 33.5 pg High 27.0-32.0 [facility] Mean corpuscular hemoglobin concentration (MCHC) determinationOrdered By: Willy Burt on 04-03-2024 MCHC (RBC) [Mass/Vol] 34.6 g/dL 32-[address] [facility] Mean platelet volume determi nationOrdered By: Willy Burt on 04-03-2024 Platelet mean volume (Bld) [Entitic vol] 9.9 fL 6.2-12.0 [facility] Monocyte percentageOrdered B y: Willy Burt on 04-03-2024 Monocytes/100 WBC (Bld) 5.5 % 0-10 [facility] Neutrophil percentageOrdered By: Willy Burt on 04-03-2024 Neutrophils/100 WBC (Bld) 82.7 % High 47-70 [facility] Nucleated red blood cell per centageOrdered By: Willy Burt on 04-03-2024 Nucleated RBC/100 WBC (Bld) [Ratio] 0 % 0-5 [facility] Platelet countOrdered By: Christiano Burt on 04-03-2024 Platelets (Bld) [#/Vol] 132 10*3/uL Low 150-450 [facility] Potassium measurementOrdered By: Willy Burt on 04-03-2024 Potassium [Moles/Vol] 4.7 mmol/L 3.5-5.[address] [facility] RBC Auto (Bld) [#/Vol]Ordere d By: Willy Burt on 04-03-2024 RBC (Bld) [#/Vol] 3.79 10*6/uL Low 4.2-5.4 [facility] Serum anion gap measurementO rdered By: Willy Burt on 04-03-2024 Anion gap [Moles/Vol] 8 mmol/L 5-[address] [facility] Serum or plasma calcium ana maria urement (mass/volume)Ordered By: Willy Burt on 04-03-2024 Calcium [Mass/Vol] 9.4 mg/dL 8.5-10.1 [facility] Serum or plasma creatinine m easurement (mass/volume)Ordered By: Willy Burt on 04-03-2024 Creatinine [Mass/Vol] 0.90 mg/dL 0.55-1.[address] [facility] Comment on above: The validity of the calculated GFR & GFRAA in patients over 70 years has not been determined. Clinical correlation is essential. Serum or plasma urea nitroge n measurement (mass/volume)Ordered By: Willy Burt on 04-03-2024 Urea nitrogen [Mass/Vol] 12 mg/dL 7-18 [facility] Sodium levelOrdered By: Jad Burt on 04-03-2024 Sodium [Moles/Vol] 138 mmol/L 136-145 [facility] Troponin IOrdered By: Yasmani Burt on 04-03-2024 Troponin I 4 pg/mL 3.0-54.0 [facility] Comment on above: Please Note: New Daniela t Units and Gender Specific Reference Ranges. For more information see Policy Stat Procedure [place] High Sensitivity Troponin (TNIH) and attachments. Troponin I High Sensitivity 4 pg/mL 3.0-54.0 [facility] Comment on above: Please Note: New Daniela t Units and Gender Specific Reference Ranges. For more information see Policy Stat Procedure [place] High Sensitivity Troponin (TNIH) and attachments. White blood cell (WBC) count Ordered By: Willy Burt on 04-03-2024 WBC (Bld) [#/Vol] 3.6 10*3/uL Low 4.4-11.0 [facility] Chest PA and Lateralon 03-31 Chest PA and Lateral Normal [facility] Emergency Department Summary on 03-31-2024 Emergency Department Summary Normal [facility] POCT SARS-COV-2/FLU/RSV PCR SYMPTOMATIC manually resultedOrdered By: Ana Cristina Gonzalez on 03-29-2024 FLUAV RNA MALKA+probe Ql (Resp) Detected Abnormal Not Detected [facility] FLUBV RNA MALKA+probe Ql (Resp) Not detected Not Detected [facility] Interpretation and review of laboratory results Abnormal [facility] RSV RNA MALKA+probe Ql (Resp) Not detected Not Detected [facility] SARS-CoV-2 (COVID-19) RNA MALKA+probe Ql (Resp) Not detected Not Detected [facility] L501.5101on 03-24-2024 GGTP 123 IU/L Abnormal 0-60 [facility] Comment on above: Result Comment: Perf ormed at: [facility] [address] [id number] Director: Jorgito Cunningham PhD, Phone: [phone] Performed By: #### L 501.5101, L500.3400 ####[facility] [address] [place], [place], [address] Bilirubin directOrdered By: Jorgito Boogie on 03-23-2024 Bilirubin.direct [Mass/Vol] 0.08 mg/dL 0.00-0.30 [facility] Bilirubin, totalOrdered By: Jorgito Boogie on 03-23-2024 Bilirubin [Mass/Vol] 0.40 mg/dL 0.20-1.00 [facility] Comment on above: For patients on eltr ombopag therapy, use of Dimension [place] TBIL is not recommended. Gamma glutamyl transferase ( GGT) measurementOrdered By: Jorgito Boogie on 03-23-2024 Amylase [Catalytic activity/Vol] 123 U/L High 0-60 [facility] Comment on above: Performed at: [facility] [address] [id number] Director: Jorgito Cunningham PhD, Phone: [phone] Laboratory - Chemistry and C hemistry - challengeOrdered By: Jorgito Boogie on 03-23-2024 AST [Catalytic activity/Vol] 32 U/L 15-37 [facility] Liver Profileon 03-23-2024 Albumin [Mass/Vol] 3.7 g/dL Normal 3.2-5.0 [facility] Comment on above: Performed By: #### L 501.5101, L500.3400 ####[facility] [address] [place], [address] ALK P 115 U/L Normal 45-117 [facility] Comment on above: Performed By: #### L 501.5101, L500.3400 ####[facility] [address] [place], [address] ALT [Catalytic activity/Vol] 85 U/L High 13-56 [facility] Comment on above: Performed By: #### L 501.5101, L500.3400 ####[facility] [address] [place], [address] AST [Catalytic activity/Vol] 32 U/L Normal 15-37 [facility] Comment on above: Performed By: #### L 501.5101, L500.3400 ####[facility] [address] [place], [address] Bilirubin [Mass/Vol] 0.40 mg/dL Normal 0.20-1.00 [facility] Comment on above: Result Comment: For patients on eltrombopag therapy, use of Dimension [place] TBIL is not recommended. Performed By: #### L 501.5101, L500.3400 ####[facility] [address] [place], [address] Bilirubin.direct [Mass/Vol] 0.08 mg/dL Normal 0.00-0.30 [facility] Comment on above: Performed By: #### L 501.5101, L500.3400 ####[facility] [address] [place], [address] Globulin (S) [Mass/Vol] 3.2 g/dL Normal 2.2-4.2 [facility] Comment on above: Performed By: #### L 501.5101, L500.3401 ####[facility] [address] [place], [place], [id number] T PROT 6.9 g/dL Normal 6.4-8.2 [facility] Comment on above: Performed By: #### L 501.5101, L500.3400 ####[facility] [address] [place], [place], [id number] Serum globulin measurementOr dered By: Jorgito Boogie on 03-23-2024 Globulin (S) [Mass/Vol] 3.2 g/dL 2.2-4.2 [facility] Serum or plasma alanine valencia otransferase (ALT) measurementOrdered By: Jorgito Boogie on 03-23-2024 ALT [Catalytic activity/Vol] 85 U/L High 13-56 [facility] Serum or plasma albumin ana maria urement (mass/volume)Ordered By: Jorgito Boogie on 03-23-2024 Albumin [Mass/Vol] 3.7 g/dL 3.2-5.0 [facility] Serum or plasma alkaline juana sphatase measurementOrdered By: Jorgito Boogie on 03-23-2024 ALP [Catalytic activity/Vol] 115 U/L 45-117 [facility] Total proteinOrdered By: Boris Boogie on 03-23-2024 Protein [Mass/Vol] 6.9 g/dL 6.4-8.2 [facility] CNOVon 02-11-2024 CNOV Office Visit (OBGYWM ) VIOLET HERNANDEZ ([id number]) 1985 F Date Time Provider Department 02/11/24 1:20 PM LEO BARNETT OBCHRISTIANE During your visit today, we recorded the [...] L0 SAB0 IAB0 Ectopic0 Multiple0 Live Births0 [employer] History LMP: 06/09/2022 (Within Days), Hysterectomy Age at Menarche: Age at First : Age at Menopause: [employer] History Comments: Sexual Activity: Yes; Male Contraception: Pill PAST MEDICAL HISTORY Diagnosis Date Anxiety Depression Leukopenia Mitral prolapse Premature ovarian failure PAST SURGICAL HISTORY Procedure Laterality Date BONE MARROW BIOPSY x 2 COLONOSCOPY SCREENING 11/05/2023 ORAL SURGERY PROCEDURE [facility] W/T/O 250 G OR LESS 11/10/2023 [...] mammogram for malignant neoplasm of breast Orders: [facility] SCREENING W LOW; Future Hormone replacement therapy (HRT) I spent a total of 20 minutes on the date of the service which included preparing to see the patient, akqt-ni-ffox patient care, completing clinical documentation, obtaining and/or [...] breast [Z12.31] Hormone replacement therapy (HRT) [Z79.890] Order(s):[facility] SCREENING W LOW [3887769] Order #: [id number] FUTURE Prescriptions as of 02/11/2024 - multivit,thx,calcium,ir [...] valve prol (more content not included)... Normal [facility] Dexa Bone Density Studyon Dexa Bone Density Study Normal [facility] L501.5101on 02-10-2024 GGTP 143 IU/L Abnormal 0-60 [facility] Comment on above: Result Comment: Perf ormed at: - [facility] [place] [id number] Director: Jorgito Cunningham PhD, Phone: [phone] Performed By: #### L 625.3241, L501.7474, L500.5847 ####[facility] [address] [place], [place], [address] Bilirubin directOrdered By: Jorgito Boogie on 02-08-2024 Bilirubin.direct [Mass/Vol] 0.06 mg/dL 0.00-0.30 [facility] Bilirubin, totalOrdered By: Jorgito Boogie on 02-08-2024 Bilirubin [Mass/Vol] 0.20 mg/dL 0.20-1.00 [facility] Comment on above: For patients on eltr ombopag therapy, use of Dimension [place] TBIL is not recommended. C-reactive protein measureme nt by high sensitivity methodOrdered By: Jorgito Boogie on 02-08-2024 C-Reactive Protein Extended Range < 2.90 mg/L 0.0-3.0 [facility] Comment on above: C-Reactive Protein ( CRP) provides useful information for thediagnosis, therapy and monitoring of inflammatory processesand associated diseases. For the evaluation of Relative Riskfor Cardiovascular Disease, a High Sensitivity CRP (HSCRP)should be ordered. CRPon 02-08-2024 C-REACTIVE PROT < 2.90 Normal 0.0-3.0 [facility] Comment on above: Result Comment: C-Re active Protein (CRP) provides useful information for thediagnosis, therapy and monitoring of inflammatory processesand associated diseases. For the evaluation of Relative Riskfor Cardiovascular Disease, a High Sensitivity CRP (HSCRP)should be ordered. Performed By: #### L 501.6710, L501.5101, L500.3400 ####[facility] [address] [place], [address] Gamma glutamyl transferase ( GGT) measurementOrdered By: Jorgito Boogie on 02-08-2024 Amylase [Catalytic activity/Vol] 143 U/L High 0-60 [facility] Comment on above: Performed at: [address] [id number] Director: Jorgito Cunningham PhD, Phone: [phone] Laboratory - Chemistry and C hemistry - challengeOrdered By: Jorgito Boogie on 02-08-2024 AST [Catalytic activity/Vol] 46 U/L High 15-37 [facility] Liver Profileon 02-08-2024 Albumin [Mass/Vol] 3.7 g/dL Normal 3.2-5.0 [facility] Comment on above: Performed By: #### L 501.6710, L501.5101, L500.3400 ####[facility] [address] [place], [address] ALK P 102 U/L Normal 45-117 [facility] Comment on above: Performed By: #### L 501.6710, L501.5101, L500.3400 ####[facility] [address] [place], [address] ALT [Catalytic activity/Vol] 127 U/L High 13-56 [facility] Comment on above: Performed By: #### L 501.6710, L501.5101, L500.3400 ####[facility] [address] [place], [address] AST [Catalytic activity/Vol] 46 U/L High 15-37 [facility] Comment on above: Performed By: #### L 501.6710, L501.5101, L500.3400 ####[facility] [address] [place], [address] Bilirubin [Mass/Vol] 0.20 mg/dL Normal 0.20-1.00 [facility] Comment on above: Result Comment: For patients on eltrombopag therapy, use of Dimension [place] TBIL is not recommended. Performed By: #### L 501.6710, L501.5101, L500.3400 ####[facility] [address] [place], [address] Bilirubin.direct [Mass/Vol] 0.06 mg/dL Normal 0.00-0.30 [facility] Comment on above: Performed By: #### L 501.6710, L501.5101, L500.3400 ####[facility] [address] [place], [address] Globulin (S) [Mass/Vol] 3.2 g/dL Normal 2.2-4.2 [facility] Comment on above: Performed By: #### L 501.6710, L501.5101, L500.3400 ####[facility] [address] [place], [address] T PROT 6.9 g/dL Normal 6.4-8.2 [facility] Comment on above: Performed By: #### L 501.6710, L501.5101, L500.3400 ####[facility] [address] [place], [address] Serum globulin measurementOr dered By: Jorgito Boogie on 02-08-2024 Globulin (S) [Mass/Vol] 3.2 g/dL 2.2-4.2 [facility] Serum or plasma alanine valencia otransferase (ALT) measurementOrdered By: Jorgito Boogie on 02-08-2024 ALT [Catalytic activity/Vol] 127 U/L High 13-56 [facility] Serum or plasma albumin ana maria urement (mass/volume)Ordered By: Jorgito Boogie on 02-08-2024 Albumin [Mass/Vol] 3.7 g/dL 3.2-5.0 [facility] Serum or plasma alkaline juana sphatase measurementOrdered By: Jorgito Boogie on 02-08-2024 ALP [Catalytic activity/Vol] 102 U/L 45-117 [facility] Total proteinOrdered By: Boris Boogie on 02-08-2024 Protein [Mass/Vol] 6.9 g/dL 6.4-8.2 [facility] Coronary Angiography CTon Coronary Angiography CT Normal [facility] Limited Chest CT Cardiac Onl yon 01-18-[address] Cardiac Only Normal [facility] CBC W/Diff, Automatedon PATH REV Reviewed Normal [facility] Comment on above: Result Comment: MACR OCYTIC RBC'sLEUKOPENIA, MILDMILD Thrombocytopenia.Clinical correlation suggested.Haris Fang D.O. 01/15/24 AMENDED REPORT 01/15/24 1415 PATH REV previously reported as: June dileep Performed By: #### L 506.1000, L100.0100, L500.4050 ####[facility] [address] [place], [address] CNOVon 01-15-2024 CNOV Office Visit (GMIGFV ) VIOLET HERNANDEZ ([id number]) 1985 F Date Time Provider Department 01/15/24 1:45 PM [facility] During your visit today, we recorded the following information about you: Blood pressure Weight Height 119/78 68 kg 1.499 m Lee Katz DO 01/19/2024 1:58 PM Signed [facility] SECTION FOR MINIMALLY INVASIVE GYNECOLOGIC SURGERY OUTPATIENT [...] at her post op appointment with the [employer] [employer] on 12/17/2023 was told on her Vaginal [...] and pt agrees with plan Lee Katz, DO Allergies As of Date: 01/15/2024 (No [...] ordered this (more content not included)... Normal [facility] 69-IL-Ezvjhpj DOrdered By: Manuela Sanders on 01-14-2024 Vitamin D 25-Hydroxy 46.9 ng/mL [facility] Comment on above: Vitamin D 25(OH) Sta tus Range Deficiency <20 ng/mL (50nmol/L) Insufficiency 20 - 30 ng/mL (50 - 75 nmol/L) Sufficiency 30 - 100 ng/mL (75 - 250 nmol/L) Toxicity >100 ng/mL (>250 nmol/L) Absolute neutrophil countOrd ered By: Emily Sanders on 01-14-2024 Neutrophils (Bld) [#/Vol] 1.2 10*3/uL Low 2.0-7.7 [facility] Albumin to globulin ratioOrd ered By: Emily Sanders on 01-14-2024 Albumin/Globulin [Mass ratio] 1.4 {ratio} 0.9-2.4 [facility] Basophil percentageOrdered B y: Emily Sanders on 01-14-2024 Basophils/100 WBC (Bld) 0.9 % 0-1 [facility] Bilirubin, totalOrdered By: Emily Sanders on 01-14-2024 Bilirubin [Mass/Vol] 0.30 mg/dL 0.20-1.00 [facility] Comment on above: For patients on eltr ombopag therapy, use of Dimension [place] TBIL is not recommended. Blood urea nitrogen (BUN)/cr eatinine ratioOrdered By: Emily Sanders on 01-14-2024 Urea nitrogen/Creatinine [Mass ratio] 17.6 mg/mg 10-20 [facility] Carbon dioxide measurementOr dered By: Emily Sanders on 01-14-2024 CO2 [Moles/Vol] 25.0 mmol/L 21.0-32.0 [facility] Chloride measurementOrdered By: Emily Sanders on 01-14-2024 Chloride [Moles/Vol] 108 mmol/L High 98-107 [facility] Comprehensive Metabolic Prof ilon 01-14-2024 Albumin [Mass/Vol] 3.8 g/dL Normal 3.2-5.0 [facility] Comment on above: Performed By: #### L 506.1000, L100.0100, L500.4050 ####[facility] [address] [place], [address] Albumin/Globulin [Mass ratio] 1.4 {ratio} Normal 0.9-2.4 [facility] Comment on above: Performed By: #### L 506.1000, L100.0100, L500.4050 ####[facility] [address] [place], [address] ALK P 96 U/L Normal 45-117 [facility] Comment on above: Performed By: #### L 506.1000, L100.0100, L500.4050 ####[facility] [address] [place], [address] ALT [Catalytic activity/Vol] 101 U/L High 13-56 [facility] Comment on above: Performed By: #### L 506.1000, L100.0100, L500.4050 ####[facility] [address] [place], [address] AST [Catalytic activity/Vol] 59 U/L High 15-37 [facility] Comment on above: Performed By: #### L 506.1000, L100.0100, L500.4050 ####[facility] [address] [place], [address] Bilirubin [Mass/Vol] 0.30 mg/dL Normal 0.20-1.00 [facility] Comment on above: Result Comment: For patients on eltrombopag therapy, use of Dimension [place] TBIL is not recommended. Performed By: #### L 506.1000, L100.0100, L500.4050 ####[facility] [address] [place], [address] BUN/CRE 17.6 RATIO Normal 10-20 [facility] Comment on above: Performed By: #### L 506.1000, L100.0100, L500.4050 ####[facility] [address] [place], [address] CA,Total 9.4 mg/dL Normal 8.5-10.1 [facility] Comment on above: Performed By: #### L 506.1000, L100.0100, L500.4050 ####[facility] [address] [place], [address] Chloride [Moles/Vol] 108 mmol/L High 98-107 [facility] Comment on above: Performed By: #### L 506.1000, L100.0100, L500.4050 ####[facility] [address] [place], [address] CO2 [Moles/Vol] 25.0 mmol/L Normal 21.0-32.0 [facility] Comment on above: Performed By: #### L 506.1000, L100.0100, L500.4050 ####[facility] [address] [place], [address] Creatinine [Mass/Vol] 0.85 mg/dL Normal 0.55-1.[address] [facility] Comment on above: Result Comment: The validity of the calculated GFR GFRAA in patients over70 years has not been determined. Clinical correlation isessential. Performed By: #### L 506.1000, L100.0100, L500.4050 ####[facility] [id number] [place], [address] EST GFR - AA 96 mL/min Normal >60 [facility] Comment on above: Result Comment: Afri can Malagasy GFR Calc Performed By: #### L 506.1000, L100.0100, L500.4050 ####[facility] [id number] [place], [address] GAP 6 Normal 5-15 [facility] Comment on above: Performed By: #### L 506.1000, L100.0100, L500.4050 ####[facility] [address] [place], [address] GFR/1.73 sq M.predicted among non-blacks MDRD (S/P/Bld) [Vol rate/Area] 79 mL/min/{1.73_m2} Normal >60 [facility] Comment on above: Result Comment: Non- GFR Calc Performed By: #### L 506.1000, L100.0100, L500.4050 ####[facility] [id number] [place], [address] Globulin (S) [Mass/Vol] 2.7 g/dL Normal 2.2-4.2 [facility] Comment on above: Performed By: #### L 506.1000, L100.0100, L500.4050 ####[facility] [address] [place], [address] Glucose [Mass/Vol] 90 mg/dL Normal 74-106 [facility] Comment on above: Performed By: #### L 506.1000, L100.0100, L500.4050 ####[facility] [address] [place], [address] Potassium [Moles/Vol] 4.1 mmol/L Normal 3.5-5.[address] [facility] Comment on above: Performed By: #### L 506.1000, L100.0100, L500.4050 ####[facility] [address] [place], [address] Sodium [Moles/Vol] 139 mmol/L Normal 136-145 [facility] Comment on above: Performed By: #### L 506.1000, L100.0100, L500.4050 ####[facility] [address] [place], [address] T PROT 6.5 g/dL Normal 6.4-8.2 [facility] Comment on above: Performed By: #### L 506.1000, L100.0100, L500.4050 ####[facility] [address] [place], [address] Urea nitrogen [Mass/Vol] 15 mg/dL Normal 7-18 [facility] Comment on above: Performed By: #### L 506.1000, L100.0100, L500.4050 ####[facility] [address] [place], [address] Eosinophil percentageOrdered By: Emily Sanders on 01-14-2024 Eosinophils/100 WBC (Bld) 4.7 % 0-5 [facility] Erythrocyte distribution wid th ratioOrdered By: Emily Sanders on 01-14-2024 Erythrocyte distribution width (RBC) [Ratio] 13.2 % 11.6-14.6 [facility] Erythrocyte distribution wid th standard deviationOrdered By: Emiyl Sanders on 01-14-2024 Erythrocyte distribution width (RBC) [Entitic vol] 51.0 fL High 35.1-43.9 [facility] Estimated glomerular filtrat ion rate (GFR) AmericanOrdered By: Emily Sanders on 01-14-2024 Estimated GFR (MDRD) Amer 96 mL/min >60 [facility] Comment on above: GFR Calc Glomerular filtration rate ( GFR) estimationOrdered By: Emily Sanders on 01-14-2024 Estimated GFR (MDRD) Non-Af Amer 79 mL/min >60 [facility] Comment on above: Non- GFR Calc Glucose measurementOrdered B y: Emily Sanders on 01-14-2024 Glucose [Mass/Vol] 90 mg/dL 74-106 [facility] Hematocrit Auto (Bld) [Volum e fraction]Ordered By: Emily Sanders on 01-14-2024 Hematocrit (Bld) [Volume fraction] 36.8 % Low 37-47 [facility] Hemoglobin measurementOrdere d By: Emily Sanders on 01-14-2024 Hemoglobin (Bld) [Mass/Vol] 12.6 g/dL 12.0-15.0 [facility] Immature granulocytes/100 WB C Auto (Bld)Ordered By: Emily Sanders on 01-14-2024 Immature granulocytes/100 WBC (Bld) 0.000 % 0.0-0.9 [facility] Comment on above: IG% - Immature Granu locytes (promyelocytes, myelocytes and metamyelocytes) > 1% indicates that a LEFT SHIFT is Present. Laboratory - Chemistry and C hemistry - challengeOrdered By: Emily Sanders on 01-14-2024 AST [Catalytic activity/Vol] 59 U/L High 15-37 [facility] Lymphocytes Auto (Unsp spec) [#/Vol]Ordered By: [facility] on 01-14-2024 Lymphocytes (Bld) [#/Vol] 0.53 10*3/uL Low 0.83-4.51 [facility] Lymphocytes/100 WBC Auto (Un sp spec)Ordered By: Emily Sanders on 01-14-2024 Lymphocytes/100 WBC (Bld) 22.6 % 19-41 [facility] MCV (mean corpuscular volume ) determinationOrdered By: Emily Sanders on 01-14-2024 MCV (RBC) [Entitic vol] 106.1 fL High 81-99 [facility] Manual differential comment Robin (Bld) [Interp]Ordered By: Emily Sanders on 01-14-2024 Differential Comment COMMENT [facility] Comment on above: LYMPHOPENIA. Mean corpuscular hemoglobin (MCH) determinationOrdered By: Emily Sanders on 01-14-2024 MCH (RBC) [Entitic mass] 36.3 pg High 27.0-32.0 [facility] Mean corpuscular hemoglobin concentration (MCHC) determinationOrdered By: Emily Sanders on 01-14-2024 MCHC (RBC) [Mass/Vol] 34.2 g/dL 32-[address] [facility] Mean platelet volume determi nationOrdered By: Emily Sanders on 01-14-2024 Platelet mean volume (Bld) [Entitic vol] 11.3 fL 6.2-12.0 [facility] Monocyte percentageOrdered B y: Emily Sanders on 01-14-2024 Monocytes/100 WBC (Bld) 20.4 % High 0-10 [facility] Neutrophil percentageOrdered By: Emily Sanders on 01-14-2024 Neutrophils/100 WBC (Bld) 51.4 % 47-70 [facility] Nucleated red blood cell per centageOrdered By: Emily Sanders on 01-14-2024 Nucleated RBC/100 WBC (Bld) [Ratio] 0 % 0-5 [facility] Pathologist review Robin (Unsp spec) [Interp]Ordered By: Emily Sanders on 01-14-2024 Differential Pathologist's Review Reviewed [facility] Comment on above: Previous reported re sult: Yajaira falk Edited by: LIANNE on 01/15/24:1415MACROCYTIC RBC'sLEUKOPENIA, MILDMILD Thrombocytopenia.Clinical correlation suggested.Haris Fang D.O. 01/15/24 AMENDED REPORT 01/15/24 1415 PATH REV previously reported as: Yajaira falk Platelet countOrdered By: Eduardo Sanders on 01-14-2024 Platelets (Bld) [#/Vol] 145 10*3/uL Low 150-450 [facility] Potassium measurementOrdered By: Emily Sanders on 01-14-2024 Potassium [Moles/Vol] 4.1 mmol/L 3.5-5.[address] [facility] RBC Auto (Bld) [#/Vol]Ordere d By: Emily Sanders on 01-14-2024 RBC (Bld) [#/Vol] 3.47 10*6/uL Low 4.2-5.4 [facility] Serum anion gap measurementO rdered By: Emily Sanders on 01-14-2024 Anion gap [Moles/Vol] 6 mmol/L 5-[address] [facility] Serum globulin measurementOr dered By: Emily Sanders on 01-14-2024 Globulin (S) [Mass/Vol] 2.7 g/dL 2.2-4.2 [facility] Serum or plasma alanine valencia otransferase (ALT) measurementOrdered By: Emily Sanders on 01-14-2024 ALT [Catalytic activity/Vol] 101 U/L High 13-56 [facility] Serum or plasma albumin ana maria urement (mass/volume)Ordered By: Emily Sanders on 01-14-2024 Albumin [Mass/Vol] 3.8 g/dL 3.2-5.0 [facility] Serum or plasma alkaline juana sphatase measurementOrdered By: Emily Sanders on 01-14-2024 ALP [Catalytic activity/Vol] 96 U/L 45-117 [facility] Serum or plasma calcium ana maria urement (mass/volume)Ordered By: Emily Sanders on 01-14-2024 Calcium [Mass/Vol] 9.4 mg/dL 8.5-10.1 [facility] Serum or plasma creatinine m easurement (mass/volume)Ordered By: Emily Sanders on 01-14-2024 Creatinine [Mass/Vol] 0.85 mg/dL 0.55-1.[address] [facility] Comment on above: The validity of the calculated GFR & GFRAA in patients over 70 years has not been determined. Clinical correlation is essential. Serum or plasma urea nitroge n measurement (mass/volume)Ordered By: Emily Sanders on 01-14-2024 Urea nitrogen [Mass/Vol] 15 mg/dL 7-18 [facility] Sodium levelOrdered By: Rocio Sanders on 01-14-2024 Sodium [Moles/Vol] 139 mmol/L 136-145 [facility] Total proteinOrdered By: Kaelb Sanders on 01-14-2024 Protein [Mass/Vol] 6.5 g/dL 6.4-8.2 [facility] Vitamin D,25 Hydroxyon 01-13 Vitamin D 25-OH 46.9 ng/mL Normal [facility] Comment on above: Result Comment: Nicole min D 25(OH) Status Range Deficiency <20 ng/mL (50nmol/L) Insufficiency 20 - 30 ng/mL (50 - 75 nmol/L) Sufficiency 30 - 100 ng/mL (75 - 250 nmol/L) Toxicity >100 ng/mL (>250 nmol/L) Performed By: #### L 506.1000, L100.0100, L500.4050 ####[facility] [address] [place], [address] White blood cell (WBC) count Ordered By: Emily Sanders on 01-14-2024 WBC (Bld) [#/Vol] 2.4 10*3/uL Low 4.4-11.0 [facility] Abdomen Limitedon 01-12-2024 Abdomen Limited Normal [facility] Internal Medicine Office Vis iton 12-31-2023 Internal Medicine Office Visit Normal [facility] BACTERIAL VAGINOSIS NAATon 1 02-15-2023 Lactobacillus crispatus+gasseri+yonatan enii + Gardnerella vaginalis + Atopobium vaginae rRNA MALKA+probe Ql (Vag fld) Negative Normal Negative for bacterial vaginosis [facility] Comment on above: Order Comment: Speci men Type: SWABOrdering Facility: [facility] Address: [address] [place] [address] Performed By: #### B VAMP, CVTV ####[facility] LABCLIA [id number] [place] [address] [place] JORDYN/TRICHOMONAS NAATon 1 02-15-2023 C. glabrata RNA MALKA+probe Ql (Vag fld) Negative Normal Negative for Jordyn glabrata [facility] Comment on above: Order Comment: Speci men Type: SWABOrdering Facility: [facility] Address: [address] [place] [address] Performed By: #### B VAMP, CVTV ####[facility] LABCLIA [id number] [place] [address] [place] Jordyn sp DNA MALKA+probe Ql (Vag fld) Negative Normal Negative for Jordyn species [facility] Comment on above: Order Comment: Speci men Type: SWABOrdering Facility: [facility] Address: [address] [place] [address] Performed By: #### B VAMP, CVTV ####[facility] LABCLIA [id number] [place] [address] [place] T. vaginalis DNA MALKA+probe Ql (Unsp spec) Negative Normal Negative for Trichomonas vaginalis by amplification [facility] Comment on above: Order Comment: Speci men Type: SWABOrdering Facility: [facility] Address: [address] [place] [address] Performed By: #### B VAMP, CVTV ####[facility] LABCLIA [id number] [address] [place] CNOVon 12-17-2023 CNOV Office Visit (GMIGMN ) VIOLET HERNANDEZ ([id number]) 1985 F Date Time Provider Department 12/17/23 3:00 PM YENNIFER TOMAS GMIGMN During your visit today, we recorded the following information about you: Blood pressure Weight Height Last Period 124/80 71.4 kg 1.473 m 06/09/22 Pete Gill MA 12/17/2023 3:51 PM Signed Exam chaperoned by Pete Gill MA December 17, 2023 3:10 PM Yennifer Tomas, INCINERATOR OPERATOR.WOOD LATHER 12/17/2023 3:51 PM Signed [facility] Department of Benign Gynecology [facility] PATIENT NAME: Violet Hernandez PCP: [...] L0 SAB0 IAB0 Ectopic0 Multiple0 Live Births0 Director Of Special Events History LMP: 06/09/2022 (Within Days), Hysterectomy Age at Menarche: Age at First : Age at Menopause: Director Of Special Events History Comments: Sexual Activity: Yes; Male Contraception: Pill PAST MEDICAL HISTORY Diagnosis Date Anxiety Depression Leukopenia Mitral prolapse Premature ovarian failure PAST SURGICAL HISTORY Procedure Laterality Date BONE MARROW BIOPSY x 2 COLONOSCOPY SCREENING 11/05/2023 ORAL SURGERY PROCEDURE TLH W/T/O 250 G OR LESS 11/10/2023 PHYSICAL EXAM: The sensitive examination was discussed with the Patient or Patient's Authorized Roller Hand. As applicable, any other physician, advance practice provider, medical student, or other health professional student that will be observing or involved in the sensitive examination for educational or training purposes was discussed with the Patient or Authorized Roller Hand. The Patient or Authorized Roller Hand has agreed to proceed with the sensitive examination. (Sensitive examination includes inspection and/or palpation of the breasts, pelvis, prostate and anorectal regions) Filter Press Supervisor offered: Patient accepts, visit chaperoned by Pete [...] Keep upcoming appointment with Dr. Mikie Tomas, CHRISTOPHER.WOOD LATHER December 17, 2023 3:14 PM Allergies As of Date: 12/17/2023 (No Known Allergies) Date Reviewed: 12/17/2023 Reviewed by: Pete Gill MA - Fully Assessed Reason for Visit: Post-Op Visit [1236] Cmt: Cuff check. Patient states she has been experiencing bleeding with bowel movements, is believes the blood is vaginal. Primary Visit Diagnosis:Vaginal discharge [N89.8] Order(s):JORDYN/TRICHO MONAS NAAT [SQCVTV] Order #: [id number]. #:[id number] BACTERIAL VAGINOSIS NAAT [SQBVAMP] Order #: [id number]. #:[id number] Prescriptions as of 12/17/2023 - estradiol (ESTRACE) [...] mouth e (more content not included)... [facility] Telephone (GYNMN) VIOLET HERNANDEZ ([id number]) 1985 F Date Time Provider Department 12/06/23 LEE BELTRE GYNNE During your visit today, we recorded the following information about you: Lee Beltre MD 12/06/2023 3:48 PM Addendum Telephone Encounter Violet Hernandez [id number] Provider: Dr. Katz Surgery: TLH, BSO, cysto [...] Ms. Hernandez a follow up appointment with [facility] this week. Counseled gaming commissioner-back precautions including persistent or worsening of symptoms. [...] decide to go the ED. Discussed with [facility] fellow, Dr. Weston. Lee Beltre MD 12/06/23 2:36 PM Allergies As of Date: 12/06/2023 (No Known Allergies) Date Reviewed: 11/24/2023 Reviewed by: Yennifer Tomas APRN.WOOD LATHER - Fully Assessed Prescriptions as of 12/06/2023 [...] Encounter Status:Closed by LEE BELTRE on 12/06/[address] [facility]WCTRMN[facility] VIOLET HERNANDEZ ([id number]) 1985 F Date Time Provider Department 11/13/23 MARK KATZN [facility] During your visit today, we recorded the following information about you: Valentine Crump 11/13/2023 8:19 AM Signed Pt post hysto and having sharp pains. Wants to know if that's normal. Belly button oozing clear fluid. Please advise [phone] Tracey Fowler, SHARMILA 11/13/2023 12:13 PM Signed Returned patient's call, [...] if she experiences increased pain. 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 SHARMILA Echeverria Savannah 11/19/2023 3:36 PM Signed Patient calling in stating that her stitches on top of belly button incision came out. This morning she noticed some dried blood around the area. Please advise: [phone] Chelsi Alvarado Amanda, SHARMILA 11/19/2023 4:17 PM [...] further concerns, and to send photo via mychart if anything looks concerning, for our team to review. Tracey Fowler RN Allergies As of Date: 11/13/2023 (No Known Allergies) Date Reviewed: 11/10/2023 Reviewed by: Erica Qureshi RN - Fully Assessed Reason for [...] Status:Closed by VALENTINE CRUMP on 11/13/23 Normal [facility] CBC W Auto Differential pane l (Bld)on 11-06-2023 Anisocytosis Ql (Bld) Present [facility] Basophils (Bld) [#/Vol] 0.00 10*3/uL NINF [facility] Basophils/100 WBC (Bld) 0.0 % [facility] Dacrocytes LM Ql (Bld) Few [facility] Differential cell count method Nom (Bld) Manual [facility] Eosinophils (Bld) [#/Vol] 0.05 10*3/uL NINF [facility] Eosinophils/100 WBC (Bld) 1.7 % [facility] Erythrocyte distribution width (RBC) [Ratio] 14.0 % 11.5 - 15.0 % [facility] Hematocrit (Bld) [Volume fraction] 33.7 % Low 36.0 - 46.0 % [facility] Hemoglobin (Bld) [Mass/Vol] 11.5 g/dL 11.5 - 15.5 g/dL [facility] Interpretation and review of laboratory results Abnormal [facility] Lymphocytes (Bld) [#/Vol] 0.66 10*3/uL Low [facility] Lymphocytes/100 WBC (Bld) 23.5 % [facility] MCH (RBC) [Entitic mass] 36.4 pg High 26.0 - 34.0 pg [facility] MCHC (RBC) [Mass/Vol] 34.1 g/dL 30.5 - 36.0 g/dL [facility] MCV (RBC) [Entitic vol] 106.6 fL High 80.0 - 100.0 fL [facility] Monocytes (Bld) [#/Vol] 0.44 10*3/uL [facility] Monocytes/100 WBC (Bld) 15.7 % [facility] Neutrophils (Bld) [#/Vol] 1.65 10*3/uL [facility] Neutrophils/100 WBC (Bld) 59.1 % [facility] Nucleated RBC (Bld) [#/Vol] [facility] Nucleated RBC/100 WBC (Bld) [Ratio] 0.0 % /100 WBC [facility] Ovalocytes LM Ql (Bld) Few [facility] Platelet mean volume (Bld) [Entitic vol] 10.9 fL 9.0 - 12.7 fL [facility] Platelets (Bld) [#/Vol] 110 10*3/uL Low [facility] Platelets Estimate (Bld) [#/Vol] Decreased [facility] Polychromasia LM Ql (Bld) Slight [facility] RBC (Bld) [#/Vol] 3.16 10*6/uL Low 3.90 - 5.2 0 m/uL [facility] RBC Fragments Few Abnormal None Seen [facility] Red Cell Morph Reviewed: see result s of individual morphologies [facility] WBC (Bld) [#/Vol] 2.80 10*3/uL Low [facility] This is an appended report. These results have been appended to a previously verified report.This is an appended report. These results have been appended to a previously verified report. [facility] Comprehensive metabolic 2000 panelOrdered By: Valentine Smalls on 11-06-2023 Albumin [Mass/Vol] 4.3 g/dL 3.9 - 4.9 g/dL [facility] ALP [Catalytic activity/Vol] 69 U/L 34 - 123 U/L [facility] ALT [Catalytic activity/Vol] 80 U/L High 7 - 38 U/L [facility] Anion gap [Moles/Vol] 13 mmol/L 8 - 15 mmol/L [facility] AST [Catalytic activity/Vol] 59 U/L High 13 - 35 U/L [facility] Bilirubin [Mass/Vol] 0.3 mg/dL 0.2 - 1 .3 mg/dL [facility] Calcium [Mass/Vol] 9.3 mg/dL 8.5 - 10. 2 mg/dL [facility] Chloride [Moles/Vol] 106 mmol/L 98 - 10 7 mmol/L [facility] CO2 [Moles/Vol] 22 mmol/L 22 - 30 mmol/L [facility] Creatinine [Mass/Vol] 0.76 mg/dL 0.58 - 0.96 mg/dL [facility] GFR/1.73 sq M.predicted among non-blacks MDRD (S/P/Bld) [Vol rate/Area] 102 mL/min/{1.73_m2} - PINF [facility] Comment on above: Estimated Glomerular Filtration Rate [...] 133 mg/dL High 74 - 99 mg/dL [facility] Comment on above: The [place] Diabete s Association (ADA) provides guidance for [...] Standards of Medical Care in Diabetes 2016, [place] Diabetes Association. Diabetes Care. 2016.39(Suppl 1). Interpretation and review of laboratory results Abnormal [facility] Potassium [Moles/Vol] 3.7 mmol/L 3.7 - 5.1 mmol/L [facility] Protein [Mass/Vol] 6.5 g/dL 6.3 - 8.0 g/dL [facility] Sodium [Moles/Vol] 141 mmol/L 136 - 144 mmol/L [facility] Urea nitrogen [Mass/Vol] 9 mg/dL 7 - 21 mg/dL [facility] Estimated glomerular filtrat ion rate (GFR) AmericanOrdered By: Gene Braun on 08-06-2023 Estimated GFR (MDRD) Amer 84 mL/min >60 [facility] Comment on above: GFR Calc Hemoglobin (Reticulocytes) [ Entitic mass]Ordered By: Gene Braun on 08-06-2023 Reticulocyte Hemoglobin Equivalent 39.8 pg High 30-35 [facility] Immature reticulocyte fracti onOrdered By: Gene Braun on 08-06-2023 Immature Reticulocyte Fraction 31.20 % High 3.00-15.90 [facility] Reticulocyte hemoglobin equi valent (RET-He) measurementOrdered By: Gene Braun on 08-06-2023 Hemoglobin (Reticulocytes) [Entitic mass] 39.8 pg High 30-35 [facility] Reticulocytes Auto (Bld) [#/ Vol]Ordered By: Gene Braun on 08-06-2023 Reticulocyte Count 2.76 % High 0.5-1.5 [facility] Reticulocytes/100 RBC (Bld) 2.76 % High 0.5-1.5 [facility] Basophil percentageOrdered B y: Emily Sanders on 05-29-2023 Cholesterol [Mass/Vol] 219 mg/dL <200 [facility] Comment on above: <200 mg/dL Desirable 200-240 mg/dL Borderline >240 mg/dL High Risk Triglyceride [Mass/Vol] 148 mg/dL <199 [facility] Comment on above: The drugs N-Acetylcy steine and Metamizole may falsely depress this assay.Serum Triglycerides Reference Interval Normal <150 mg/dL Borderline high 150 - 199 mg/dL High 200 - 499 mg/dL Very High > or = 500 mg/dL Laboratory - Chemistry and C hemistry - challengeOrdered By: Emily Sanders on 05-29-2023 Cholesterol in HDL [Mass/Vol] 86 mg/dL >40 [facility] Comment on above: The drugs N-Acetylcy steine and Metamizole may falsely depress this assay. Reference Range HDL <40 mg/dL Low HDL Cholesterol HDL >or= 60 mg/dL High HDL Cholesterol Cholesterol in LDL [Mass/Vol] 103 mg/dL 0-130 [facility] No Panel InformationOrdered By: Emily Sanders on 05-29-2023 Vitamin D 25-Hydroxy 50.6 ng/mL [facility] Comment on above: Vitamin D 25(OH) Sta tus Range Deficiency <20 ng/mL (50nmol/L) Insufficiency 20 - 30 ng/mL (50 - 75 nmol/L) Sufficiency 30 - 100 ng/mL (75 - 250 nmol/L) Toxicity >100 ng/mL (>250 nmol/L) VLDL Cholesterol 30 mg/dL 5-40 [facility] Serum or plasma thyroid stim ulating hormone (TSH) measurement (units/volume)Ordered By: Emily Sanders on 05-29-2023 TSH Qn 2.50 uIU/mL 0.358-3.74 [facility] Thin prep Papanicolaou smear with manual screeningOrdered By: Emily Sanders on 05-29-2023 Thin prep Papanicolaou smear with manual screening 0.81 ng/dL 0.76-1.46 [facility] Whole blood hemoglobin A1c/t otal hemoglobin ratio (mass fraction)Ordered By: Emily Sanders on 05-29-2023 HbA1c (Bld) [Mass fraction] 5.2 % 3.8-5.6 [facility] Comment on above: Normal < 5.7 % Predi abetic 5.7 - 6.4 % Diabetic >or= 6.5 % Please note range changes. Basophil percentageOrdered B y: Gene Braun on 04-29-2023 Basophil percentage 5-10 SEEN /hpf 0-5 [facility] Bilirubin Test strip Ql (U)O rdered By: Gene Braun on 04-29-2023 Bilirubin Ql (U) Negative Negative [facility] Culture, urineOrdered By: Erin Braun on 04-29-2023 Bacteria identified Cx Nom (U) Culture exhibits no growth. [facility] Epithelial cells.squamous LM Ql (Urine sed)Ordered By: Gene Braun on 04-29-2023 Epithelial cells.squamous LM.HPF (Urine sed) [#/Area] 5 /[HPF] 5-10 [facility] Glucose Ql (U)Ordered By: Erin Braun on 04-29-2023 Urine Glucose (UA) Normal mg/dl Normal [facility] Ketones Test strip Ql (U)Ord ered By: Gene Braun on 04-29-2023 Ketones Ql (U) Negative Negative [facility] Microscopic analysis of urin e for red blood cells (RBC)Ordered By: Gene Braun on 04-29-2023 Microscopic analysis of urine for red blood cells (RBC) 0-5 SEEN /hpf 0-5 [facility] Urine RBC 0-5 SEEN /hpf 0-5 [facility] Mucus LM Ql (Urine sed)Order ed By: Gene Braun on 04-29-2023 Mucus Ql (Urine sed) 1+ /hpf [facility] Nitrite Test strip Ql (U)Ord ered By: Gene Braun on 04-29-2023 Nitrite Ql (U) Negative Negative [facility] Protein Test strip Ql (U)Ord ered By: Gene Braun on 04-29-2023 Protein Ql (U) 15 mg/dl High Negative [facility] Squamous epithelial cells de tection in urine sediment by light microscopyOrdered By: Gene Braun on 04-29-2023 Epithelial cells.squamous LM Ql (Urine sed) 5-10 SEEN /hpf 5-10 [facility] Urine blood detectionOrdered By: Gene Braun on 04-29-2023 RBC Ql (U) 50 /ul Negative [facility] Urine Occult Blood 50 /ul High Negative [facility] Urine clarityOrdered By: Pop Braun on 04-29-2023 Clarity (U) Clear Clear [facility] Urine color determinationOrd ered By: Gene Braun on 04-29-2023 Color (U) Yellow Yellow [facility] Urine glucose detectionOrder ed By: Gene Braun on 04-29-2023 Glucose Ql (U) Normal mg/dl Normal [facility] Urine leukocyte esterase det ection by dipstickOrdered By: Gene Braun on 04-29-2023 Leukocyte esterase Test strip Ql (U) 100 /ul High Negative [facility] Urine pHOrdered By: Gene bey on 04-29-2023 pH (U) 6.0 [pH] 5.0 - 8.0 [facility] Urine sediment bacteria coun t by microscopy (number/high power field)Ordered By: Gene Braun on 04-29-2023 Bacteria LM.HPF (Urine sed) [#/Area] 1 /[HPF] None Seen [facility] Urine specific gravity measu rementOrdered By: Gene Braun on 04-29-2023 Specific gravity (U) [Rel density] 1.020 1.002-1.030 [facility] Urine urobilinogen measureme ntOrdered By: Gene Braun on 04-29-2023 Urobilinogen Ql (U) Normal mg/dl Normal [facility] Urobilinogen Ql (U)Ordered B y: Gene Braun on 04-29-2023 Urine Urobilinogen Normal mg/dl Normal [facility] White blood cell countOrdere d By: Gene Braun on 04-29-2023 Urine WBC 5-10 SEEN /hpf 0-5 [facility] Absolute lymphocyte countOrd ered By: Gene Braun on 04-28-2023 Lymphocytes Auto (Unsp spec) [#/Vol] 0.67 10*3/uL 0.83-4.51 [facility] Automated lymphocyte count a s percentage of total leukocytesOrdered By: Gene Braun on 04-28-2023 Lymphocytes/100 WBC Auto (Unsp spec) 24.5 % 19-41 [facility] Basophil percentageOrdered B y: Gene Braun on 04-28-2023 Basophils/100 WBC (Bld) 0.7 % 0-1 [facility] Bilirubin [Mass/Vol] 0.20 mg/dL 0.20-1.00 [facility] Comment on above: For patients on eltr ombopag therapy, use of Dimension [place] TBIL is not recommended. Chloride [Moles/Vol] 105 mmol/L 98-107 [facility] Eosinophils/100 WBC (Bld) 3.3 % 0-5 [facility] Glucose [Mass/Vol] 132 mg/dL 74-106 [facility] Comment on above: Fasting Glucose resu lt greater than or equal to 126 mg/dL suggests DIABETES MELLITUS per A.D.A. criteria. Hemoglobin (Bld) [Mass/Vol] 12.4 g/dL 12.0-15.0 [facility] LDH [Catalytic activity/Vol] 232 U/L 84-246 [facility] Monocytes/100 WBC (Bld) 18.3 % 0-10 [facility] Neutrophils (Bld) [#/Vol] 1.4 10*3/uL 2.0-7.7 [facility] Neutrophils/100 WBC (Bld) 52.8 % 47-70 [facility] Potassium [Moles/Vol] 3.8 mmol/L 3.5-5.[address] [facility] Protein [Mass/Vol] 7.2 g/dL 6.4-8.2 [facility] Sodium [Moles/Vol] 140 mmol/L 136-145 [facility] WBC (Bld) [#/Vol] 2.7 10*3/uL 4.4-11.0 [facility] Determination of erythrocyte mean corpuscular volume (MCV)Ordered By: Gene Braun on 04-28-2023 MCV (RBC) [Entitic vol] 109.6 fL 81-99 [facility] Erythrocyte distribution wid th ratioOrdered By: Gene Braun on 04-28-2023 Erythrocyte distribution width (RBC) [Ratio] 14.0 % 11.6-14.6 [facility] Erythrocyte distribution wid th standard deviationOrdered By: Gene Braun on 04-28-2023 Erythrocyte distribution width (RBC) [Entitic vol] 56.5 fL 35.1-43.9 [facility] Ferritin measurementOrdered By: Gene Braun on 04-28-2023 Ferritin [Mass/Vol] 208 ng/mL 8-252 [facility] Hematocrit Auto (Bld) [Volum e fraction]Ordered By: Gene Braun on 04-28-2023 Hematocrit (Bld) [Volume fraction] 37.6 % 37-47 [facility] Hemoglobin in reticulocytes (mass per reticulocyte)Ordered By: Gene Wang on 04-28-2023 Hemoglobin (Reticulocytes) [Entitic mass] 39.3 pg 30-35 [facility] Immature granulocytes/100 WB C Auto (Bld)Ordered By: Gene Braun on 04-28-2023 Immature granulocytes/100 WBC (Bld) 0.400 % 0.0-0.9 [facility] Comment on above: IG% - Immature Granu locytes (promyelocytes, myelocytes and metamyelocytes) > 1% indicates that a LEFT SHIFT is Present. Iron (Unsp spec) [Mass/Mass] Ordered By: Gene Braun on 04-28-2023 Iron [Mass/Vol] 142 ug/dL 50-170 [facility] Iron measurement (mass/mass) Or[facility] Iron (Unsp spec) [Mass/Mass] 142 ug/dL 50-170 [facility] Iron saturation [Mass fracti on]Ordered By: Gene Braun on 04-28-2023 Iron Saturation 36.9 % 15.0-55.0 [facility] Laboratory - Chemistry and C hemistry - challengeOrdered By: Gene Wang on 04-28-2023 Albumin/Globulin [Mass ratio] 1.0 {ratio} 0.9-2.4 [facility] ALP [Catalytic activity/Vol] 71 U/L 45-117 [facility] ALT [Catalytic activity/Vol] 73 U/L 13-56 [facility] CO2 [Moles/Vol] 28.0 mmol/L 21.0-32.0 [facility] Globulin (S) [Mass/Vol] 3.6 g/dL 2.2-4.2 [facility] Urea nitrogen/Creatinine [Mass ratio] 15.1 mg/mg 10-20 [facility] Laboratory - Hematology and Cell countsOrdered By: Gene Braun on 04-28-2023 MCH (RBC) [Entitic mass] 36.2 pg 27.0-32.0 [facility] MCHC (RBC) [Mass/Vol] 33.0 g/dL 32-[address] [facility] Nucleated RBC/100 WBC (Bld) [Ratio] 0 % 0-5 [facility] Platelet mean volume (Bld) [Entitic vol] 10.2 fL 6.2-12.0 [facility] Platelets (Bld) [#/Vol] 130 10*3/uL 150-450 [facility] No Panel InformationOrdered By: Gene Braun on 04-28-2023 Estimated Creatinine Clearance Calc 66.36 ml/min [facility] Estimated GFR (MDRD) Amer 87 mL/min >60 [facility] Comment on above: GFR Calc Estimated GFR (MDRD) Non-Af Amer 72 mL/min >60 [facility] Comment on above: Non- GFR Calc Immature Reticulocyte Fraction 27.60 % 3.00-15.90 [facility] RBC Auto (Bld) [#/Vol]Ordere d By: Gene Braun on 04-28-2023 RBC (Bld) [#/Vol] 3.43 10*6/uL 4.2-5.4 [facility] Reticulocytes Auto (Bld) [#/ Vol]Ordered By: Gene Braun on 04-28-2023 Reticulocytes/100 RBC (Bld) 2.20 % 0.5-1.5 [facility] Serum or plasma calcium ana maria urement (mass/volume)Ordered By: Gene Braun on 04-28-2023 Calcium [Mass/Vol] 8.8 mg/dL 8.5-10.1 [facility] Serum or plasma creatinine m easurement (mass/volume)Ordered By: Gene Braun on 04-28-2023 Creatinine [Mass/Vol] 0.93 mg/dL 0.55-1.[address] [facility] Comment on above: The validity of the calculated GFR & GFRAA in patients over 70 years has not been determined. Clinical correlation is essential. Serum or plasma iron saturat ion measurement (mass fraction)Ordered By: Gene Braun on 04-28-2023 Iron saturation [Mass fraction] 36.9 % 15.0-55.0 [facility] Serum or plasma urea nitroge n measurement (mass/volume)Ordered By: Gene Braun on 04-28-2023 Urea nitrogen [Mass/Vol] 14 mg/dL 7-18 [facility] TIBCOrdered By: Gene Braun on 04-28-2023 Total Iron Binding Capacity 385 ug/dL 250-450 [facility] Thin prep Papanicolaou smear with manual screeningOrdered By: Gene Braun on 04-28-2023 Thin prep Papanicolaou smear with manual screening 3.6 g/dL 3.2-5.0 [facility] Thin prep Papanicolaou smear with manual screening 36 U/L 15-37 [facility] Thin prep Papanicolaou smear with manual screening 7 5-15 [facility] Urine cultureOrdered By: Pop Braun on 04-28-2023 Bacteria identified Cx Nom (U) Culture exhibits no growth. [facility] Basophil percentageOrdered B y: Emily Sanders on 02-10-2023 Basophil percentage 0 SEEN /hpf 0-5 [facility] Bilirubin Test strip Ql (U)O rdered By: Emily Sanders on 02-10-2023 Bilirubin Ql (U) Negative Negative [facility] Culture, urineOrdered By: Eduardo Sanders on 02-10-2023 Bacteria identified Cx Nom (U) Enterococcus faecalis [facility] Bacteria identified Cx Nom (U) Enterococcus faecalis [facility] Ketones Test strip Ql (U)Ord ered By: Emily Sanders on 02-10-2023 Ketones Ql (U) 5 mg/dl Negative [facility] Mucus LM Ql (Urine sed)Order ed By: Emily Sanders on 02-10-2023 Mucus Ql (Urine sed) 0 SEEN /hpf [facility] Nitrite Test strip Ql (U)Ord ered By: Emily Sanders on 02-10-2023 Nitrite Ql (U) Negative Negative [facility] Protein Test strip Ql (U)Ord ered By: Emily Sanders on 02-10-2023 Protein Ql (U) Negative Negative [facility] Squamous epithelial cells de tection in urine sediment by light microscopyOrdered By: Emily Sanders on 02-10-2023 Epithelial cells.squamous LM Ql (Urine sed) 5-10 SEEN /hpf 5-10 [facility] Urine blood detectionOrdered By: Emily Sanders on 02-10-2023 RBC Ql (U) 250 /ul Negative [facility] RBC Ql (U) 10-25 SEEN /hpf 0-5 [facility] Urine clarityOrdered By: Kaleb Sanders on 02-10-2023 Clarity (U) Sl. Cloudy Clear [facility] Urine color determinationOrd ered By: Emily Sanders on 02-10-2023 Color (U) Yellow Yellow [facility] Urine glucose detectionOrder ed By: Emily Sanders on 02-10-2023 Glucose Ql (U) Normal mg/dl Normal [facility] Urine leukocyte esterase det ection by dipstickOrdered By: Emily Sanders on 02-10-2023 Leukocyte esterase Test strip Ql (U) 25 /ul Negative [facility] Urine pHOrdered By: Miguel Sanders on 02-10-2023 pH (U) 5.0 [pH] 5.0 - 8.0 [facility] Urine sediment bacteria coun t by microscopy (number/high power field)Ordered By: Emily Sanders on 02-10-2023 Bacteria LM.HPF (Urine sed) [#/Area] 0 /[HPF] None Seen [facility] Urine specific gravity measu rementOrdered By: Emily Sanders on 02-10-2023 Specific gravity (U) [Rel density] 1.025 1.002-1.030 [facility] Urobilinogen Auto test strip Ql (U)Ordered By: Emily Sanders on 02-10-2023 Urobilinogen Ql (U) Normal mg/dl Normal [facility] Absolute lymphocyte countOrd ered By: ED PROVIDER on 02-01-2023 Lymphocytes Auto (Unsp spec) [#/Vol] 0.90 10*3/uL 0.83-4.51 [facility] Basophil percentageOrdered B y: ED PROVIDER on 02-01-2023 Basophils/100 WBC (Bld) 0.6 % 0-1 [facility] Eosinophils/100 WBC (Bld) 4.1 % 0-5 [facility] Neutrophils (Bld) [#/Vol] 1.6 10*3/uL 2.0-7.7 [facility] Neutrophils/100 WBC (Bld) 49.2 % 47-70 [facility] WBC (Bld) [#/Vol] 3.2 10*3/uL 4.4-11.0 [facility] Basophil percentage 50-100 SEEN /hpf 0-5 [facility] Basophil percentageOrdered B y: Umang Matos on 02-01-2023 Bilirubin [Mass/Vol] 0.20 mg/dL 0.20-1.00 [facility] Comment on above: For patients on eltr ombopag therapy, use of Dimension [place] TBIL is not recommended. Chloride [Moles/Vol] 108 mmol/L 98-107 [facility] Glucose [Mass/Vol] 124 mg/dL 74-106 [facility] Comment on above: Fasting Glucose resu lt from 100 to 125 mg/dL suggests IMPAIRED HOMEOSTASIS per A.D.A. criteria. Potassium [Moles/Vol] 3.8 mmol/L 3.5-5.[address] [facility] Protein [Mass/Vol] 6.6 g/dL 6.4-8.2 [facility] Sodium [Moles/Vol] 140 mmol/L 136-145 [facility] Beta hCG serum qualOrdered B y: Umang Matos on 02-01-2023 Beta HCG ( test) Ql Negative [facility] Bilirubin Test strip Ql (U)O rdered By: ED PROVIDER on 02-01-2023 Bilirubin Ql (U) Negative Negative [facility] Blood erythrocytes count (nu mber/volume)Ordered By: ED PROVIDER on 02-01-2023 RBC (Bld) [#/Vol] 3.18 10*6/uL 4.2-5.4 [facility] Blood hemoglobin measurement (mass/volume)Ordered By: ED PROVIDER on 02-01-2023 Hemoglobin (Bld) [Mass/Vol] 11.5 g/dL 12.0-15.0 [facility] Blood lymphocytes/100 leukoc ytesOrdered By: ED PROVIDER on 02-01-2023 Lymphocytes/100 WBC (Bld) 28.4 % 19-41 [facility] Blood monocytes/100 leukocyt esOrdered By: ED PROVIDER on 02-01-2023 Monocytes/100 WBC (Bld) 17.4 % 0-10 [facility] Blood platelet mean volumeOr dered By: ED PROVIDER on 02-01-2023 Platelet mean volume (Bld) [Entitic vol] 10.6 fL 6.2-12.0 [facility] Culture, urineOrdered By: James Matos on 02-01-2023 Bacteria identified Cx Nom (U) Culture exhibits no growth. [facility] Determination of erythrocyte mean corpuscular volume (MCV)Ordered By: ED PROVIDER on 02-01-2023 MCV (RBC) [Entitic vol] 108.5 fL 81-99 [facility] Hematocrit Auto (Bld) [Volum e fraction]Ordered By: ED PROVIDER on 02-01-2023 Hematocrit (Bld) [Volume fraction] 34.5 % 37-47 [facility] Ketones Test strip Ql (U)Ord ered By: ED PROVIDER on 02-01-2023 Ketones Ql (U) 5 mg/dl Negative [facility] Laboratory - Chemistry and C hemistry - challengeOrdered By: Umang Matos on 02-01-2023 ALP [Catalytic activity/Vol] 66 U/L 45-117 [facility] ALT [Catalytic activity/Vol] 66 U/L 13-56 [facility] CO2 [Moles/Vol] 26.0 mmol/L 21.0-32.0 [facility] Globulin (S) [Mass/Vol] 3.2 g/dL 2.2-4.2 [facility] Lipase [Catalytic activity/Vol] 28 U/L 13-75 [facility] Comment on above: Please note:LIPASE r evised reference range effective 22. New Lipase methodology. Expected to produce lower values than the previous assay method. NEW Reference Range: 13 - 75 U/L Urea nitrogen/Creatinine [Mass ratio] 15.0 mg/mg 10-20 [facility] Laboratory - Hematology and Cell countsOrdered By: ED PROVIDER on 02-01-2023 Erythrocyte distribution width (RBC) [Entitic vol] 55.8 fL 35.1-43.9 [facility] Erythrocyte distribution width (RBC) [Ratio] 14.0 % 11.6-14.6 [facility] Immature granulocytes/100 WBC (Bld) 0.300 % 0.0-0.9 [facility] Comment on above: IG% - Immature Granu locytes (promyelocytes, myelocytes and metamyelocytes) > 1% indicates that a LEFT SHIFT is Present. MCH (RBC) [Entitic mass] 36.2 pg 27.0-32.0 [facility] Nucleated RBC/100 WBC (Bld) [Ratio] 0 % 0-5 [facility] MCHC Auto (RBC) [Mass/Vol]Or dered By: ED PROVIDER on 02-01-2023 MCHC (RBC) [Mass/Vol] 33.3 g/dL 32-[address] [facility] Mucus LM Ql (Urine sed)Order ed By: ED PROVIDER on 02-01-2023 Mucus Ql (Urine sed) 0 SEEN /hpf [facility] Nitrite Test strip Ql (U)Ord ered By: ED PROVIDER on 02-01-2023 Nitrite Ql (U) Negative Negative [facility] No Panel InformationOrdered By: Umang Matos on 02-01-2023 Estimated Creatinine Clearance Calc 82.00 ml/min [facility] Estimated GFR (MDRD) Amer 80 mL/min >60 [facility] Comment on above: GFR Calc Estimated GFR (MDRD) Non-Af Amer 66 mL/min >60 [facility] Comment on above: Non- GFR Calc Platelets bldOrdered By: ED PROVIDER on 02-01-2023 Platelets (Bld) [#/Vol] 128 10*3/uL 150-450 [facility] Protein Test strip Ql (U)Ord ered By: ED PROVIDER on 02-01-2023 Protein Ql (U) 30 mg/dl Negative [facility] Serum or plasma albumin ana maria urement (mass/volume)Ordered By: Umang Matos on 02-01-2023 Albumin [Mass/Vol] 3.4 g/dL 3.2-5.0 [facility] Serum or plasma albumin/glob ulin mass ratioOrdered By: Umang Matos on 02-01-2023 Albumin/Globulin [Mass ratio] 1.1 {ratio} 0.9-2.4 [facility] Serum or plasma calcium ana maria urement (mass/volume)Ordered By: Umang Matos on 02-01-2023 Calcium [Mass/Vol] 9.1 mg/dL 8.5-10.1 [facility] Serum or plasma creatinine m easurement (mass/volume)Ordered By: Umang Matos on 02-01-2023 Creatinine [Mass/Vol] 1.00 mg/dL 0.55-1.[address] [facility] Comment on above: The validity of the calculated GFR & GFRAA in patients over 70 years has not been determined. Clinical correlation is essential. Serum or plasma urea nitroge n measurement (mass/volume)Ordered By: Umang Matos on 02-01-2023 Urea nitrogen [Mass/Vol] 15 mg/dL 7-18 [facility] Squamous epithelial cells de tection in urine sediment by light microscopyOrdered By: ED PROVIDER on 02-01-2023 Epithelial cells.squamous LM Ql (Urine sed) 0-5 SEEN /hpf 5-10 [facility] Thin prep Papanicolaou smear with manual screeningOrdered By: Umang Matos on 02-01-2023 Thin prep Papanicolaou smear with manual screening 30 U/L 15-37 [facility] Thin prep Papanicolaou smear with manual screening 6 5-15 [facility] Urine blood detectionOrdered By: ED PROVIDER on 02-01-2023 RBC Ql (U) 250 /ul Negative [facility] RBC Ql (U) 0-5 SEEN /hpf 0-5 [facility] Urine clarityOrdered By: ED PROVIDER on 02-01-2023 Clarity (U) Cloudy Clear [facility] Urine color determinationOrd ered By: ED PROVIDER on 02-01-2023 Color (U) Yellow Yellow [facility] Urine glucose detectionOrder ed By: ED PROVIDER on 02-01-2023 Glucose Ql (U) Normal mg/dl Normal [facility] Urine leukocyte esterase det ection by dipstickOrdered By: ED PROVIDER on 02-01-2023 Leukocyte esterase Test strip Ql (U) 500 /ul Negative [facility] Urine pHOrdered By: ED PROVI LINDA on 02-01-2023 pH (U) 6.5 [pH] 5.0 - 8.0 [facility] Urine sediment bacteria coun t by microscopy (number/high power field)Ordered By: ED PROVIDER on 02-01-2023 Bacteria LM.HPF (Urine sed) [#/Area] 1 /[HPF] None Seen [facility] Urine specific gravity measu rementOrdered By: ED PROVIDER on 02-01-2023 Specific gravity (U) [Rel density] 1.015 1.002-1.030 [facility] Urobilinogen Auto test strip Ql (U)Ordered By: ED PROVIDER on 02-01-2023 Urobilinogen Ql (U) 1 mg/dl Normal [facility] Basophil percentageOrdered B y: Miki Lui on 12-17-2022 Basophil percentage 5-10 SEEN /hpf 0-5 [facility] Bilirubin Test strip Ql (U)O rdered By: Miki Lui on 12-17-2022 Bilirubin Ql (U) Negative Negative [facility] Culture, urineOrdered By: Ruba Lui on 12-17-2022 Bacteria identified Cx Nom (U) Culture exhibits no growth. [facility] Ketones Test strip Ql (U)Ord ered By: Miki Lui on 12-17-2022 Ketones Ql (U) 5 mg/dl Negative [facility] Mucus LM Ql (Urine sed)Order ed By: Miki Lui on 12-17-2022 Mucus Ql (Urine sed) 0 SEEN /hpf [facility] Nitrite Test strip Ql (U)Ord ered By: Miki Lui on 12-17-2022 Nitrite Ql (U) Negative Negative [facility] Protein Test strip Ql (U)Ord ered By: Miki Lui on 12-17-2022 Protein Ql (U) 15 mg/dl Negative [facility] Squamous epithelial cells de tection in urine sediment by light microscopyOrdered By: Miki Lui on 12-17-2022 Epithelial cells.squamous LM Ql (Urine sed) 0-5 SEEN /hpf 5-10 [facility] Urine blood detectionOrdered By: Miki Lui on 12-17-2022 RBC Ql (U) 250 /ul Negative [facility] RBC Ql (U) 0 SEEN /hpf 0-5 [facility] Urine clarityOrdered By: Keshav Lui on 12-17-2022 Clarity (U) Clear Clear [facility] Urine color determinationOrd ered By: Miki Lui on 12-17-2022 Color (U) Yellow Yellow [facility] Urine glucose detectionOrder ed By: Miki Lui on 12-17-2022 Glucose Ql (U) 50 mg/dl Normal [facility] Urine leukocyte esterase det ection by dipstickOrdered By: Miki Lui on 12-17-2022 Leukocyte esterase Test strip Ql (U) 500 /ul Negative [facility] Urine pHOrdered By: Miki hudson on 12-17-2022 pH (U) 6.0 [pH] 5.0 - 8.0 [facility] Urine sediment bacteria coun t by microscopy (number/high power field)Ordered By: Miki Lui on 12-17-2022 Bacteria LM.HPF (Urine sed) [#/Area] RARE /hpf None Seen [facility] Urine specific gravity measu rementOrdered By: Miki Lui on 12-17-2022 Specific gravity (U) [Rel density] 1.020 1.002-1.030 [facility] Urobilinogen Auto test strip Ql (U)Ordered By: Miki Lui on 12-17-2022 Urobilinogen Ql (U) Normal mg/dl Normal [facility] MRI CERVICAL SPINE WO IVCONo n 10-18-2021 [facility] Absolute lymphocyte counton 07-01-2021 Lymphocytes Auto (Unsp spec) [#/Vol] 0.42 10*3/uL 0.83-4.51 [facility] Work Phone: Basophil percentageon 2021 Basophils/100 WBC (Bld) 0.4 % 0-1 [facility] Work Phone: Bilirubin [Mass/Vol] 0.30 mg/dL 0.20-1.00 [facility] Work Phone: Comment on above: For patients on eltr ombopag therapy, use of Dimension [place] TBIL is not recommended. Chloride [Moles/Vol] 107 mmol/L 98-107 [facility] Work Phone: Eosinophils/100 WBC (Bld) 3.9 % 0-5 [facility] Work Phone: Glucose [Mass/Vol] 186 mg/dL 74-106 [facility] Work Phone: Comment on above: Fasting Glucose resu lt greater than or equal to 126 mg/dL suggests DIABETES MELLITUS per A.D.A. criteria. Neutrophils (Bld) [#/Vol] 1.5 10*3/uL 2.0-7.7 [facility] Work Phone: Neutrophils/100 WBC (Bld) 63.9 % 47-70 [facility] Work Phone: Potassium [Moles/Vol] 4.0 mmol/L 3.5-5.[address] [facility] Work Phone: Comment on above: Slight Hemolysis, Re sult may be falsely increased. Protein [Mass/Vol] 7.0 g/dL 6.4-8.2 [facility] Work Phone: [phone] Sodium [Moles/Vol] 139 mmol/L 136-145 [facility] Work Phone: [phone] WBC (Bld) [#/Vol] 2.3 10*3/uL 4.4-11.0 [facility] Work Phone: Blood erythrocytes count (nu mber/volume)on 07-01-2021 RBC (Bld) [#/Vol] 3.27 10*6/uL 4.2-5.4 [facility] Work Phone: Blood hemoglobin measurement (mass/volume)on 07-01-2021 Hemoglobin (Bld) [Mass/Vol] 11.8 g/dL 12.0-15.0 [facility] Work Phone: Blood lymphocytes/100 leukoc yteson 07-01-2021 Lymphocytes/100 WBC (Bld) 18.3 % 19-41 [facility] Work Phone: Blood manual differential co mment interpretation (narrative result)on 07-01-2021 Manual differential comment Rboin (Bld) [Interp] SCANNED [facility] Work Phone: Comment on above: LYMPHOPENIA NOTED Blood monocytes/100 leukocyt eson 07-01-2021 Monocytes/100 WBC (Bld) 13.5 % 0-10 [facility] Work Phone: Blood platelet mean volumeon 07-01-2021 Platelet mean volume (Bld) [Entitic vol] 11.2 fL 6.2-12.0 [facility] Work Phone: Determination of erythrocyte mean corpuscular volume (MCV)on 07-01-2021 MCV (RBC) [Entitic vol] 106.1 fL 81-99 [facility] Work Phone: Hematocrit Auto (Bld) [Volum e fraction]on 07-01-2021 Hematocrit (Bld) [Volume fraction] 34.7 % 37-47 [facility] Work Phone: Laboratory - Chemistry and C hemistry - challengeon 07-01-2021 ALP [Catalytic activity/Vol] 78 U/L 45-117 [facility] Work Phone: ALT [Catalytic activity/Vol] 91 U/L 13-56 [facility] Work Phone: CO2 [Moles/Vol] 22.0 mmol/L 21.0-32.0 [facility] Work Phone: Free T4 [Mass/Vol] 0.75 ng/dL 0.76-1.46 [facility] Work Phone: Globulin (S) [Mass/Vol] 3.5 g/dL 2.2-4.2 [facility] Work Phone: Urea nitrogen/Creatinine [Mass ratio] 15.1 mg/mg 10-20 [facility] Work Phone: Laboratory - Hematology and Cell countson 07-01-2021 Erythrocyte distribution width (RBC) [Entitic vol] 54.9 fL 35.1-43.9 [facility] Work Phone: Erythrocyte distribution width (RBC) [Ratio] 13.9 % 11.6-14.6 [facility] Work Phone: Immature granulocytes/100 WBC (Bld) 0.000 % 0.0-0.9 [facility] Work Phone: Comment on above: IG% - Immature Granu locytes (promyelocytes, myelocytes and metamyelocytes) > 1% indicates that a LEFT SHIFT is Present. MCH (RBC) [Entitic mass] 36.1 pg 27.0-32.0 [facility] Work Phone: Nucleated RBC/100 WBC (Bld) [Ratio] 0 % 0-5 [facility] Work Phone: MCHC Auto (RBC) [Mass/Vol]on 07-01-2021 MCHC (RBC) [Mass/Vol] 34.0 g/dL 32-[address] [facility] Work Phone: No Panel Informationon 07-01 Estimated GFR (MDRD) Amer 75 mL/min >60 [facility] Work Phone: Comment on above: GFR Calc Estimated GFR (MDRD) Non-Af Amer 62 mL/min >60 [facility] Work Phone: Comment on above: Non- GFR Calc Thyroid Stimulating Hormone (TSH) 2.02 uIU/mL 0.358-3.74 [facility] Work Phone: Vitamin D 25-Hydroxy 59.0 ng/mL [facility] Work Phone: Comment on above: Vitamin D 25(OH) Sta tus Range Deficiency <20 ng/mL (50nmol/L) Insufficiency 20 - 30 ng/mL (50 - 75 nmol/L) Sufficiency 30 - 100 ng/mL (75 - 250 nmol/L) Toxicity >100 ng/mL (>250 nmol/L) Platelets bldon 07-01-2021 Platelets (Bld) [#/Vol] 125 10*3/uL 150-450 [facility] Work Phone: Review by pathologiston 06-10 Pathologist review Robin (Unsp spec) [Interp] Reviewed [facility] Work Phone: Comment on above: Previous reported re sult: Yajaira falk Edited by: FABRICE on 07/02/21:1235Pancytopenia.Leukopenia and Neutropenia.Macrocytic anemia.Mild ThrombocytopeniaClinical correlation necessary.Jose Fernando M.D. 07/02/21 AMENDED REPORT 07/02/21 1235 PATH REV previously reported as: Yajaira falk Serum or plasma albumin ana maria urement (mass/volume)on 07-01-2021 Albumin [Mass/Vol] 3.5 g/dL 3.2-5.0 [facility] Work Phone: Serum or plasma albumin/glob ulin mass ratioon 07-01-2021 Albumin/Globulin [Mass ratio] 1.0 {ratio} 0.9-2.4 [facility] Work Phone: Serum or plasma calcium ana maria urement (mass/volume)on 07-01-2021 Calcium [Mass/Vol] 8.6 mg/dL 8.5-10.1 [facility] Work Phone: Serum or plasma creatinine m easurement (mass/volume)on 07-01-2021 Creatinine [Mass/Vol] 1.06 mg/dL 0.55-1.[address] [facility] Work Phone: Comment on above: The validity of the calculated GFR & GFRAA in patients over 70 years has not been determined. Clinical correlation is essential. Serum or plasma thyroxine bi nding globulin (TBG) measurement (mass/volume)on 07-01-2021 TBG [Mass/Vol] 27 ug/mL [facility] Work Phone: Comment on above: Performed at: [address] [id number] Director: Montserrat Gibbons MD, Phone: [phone] Serum or plasma urea nitroge n measurement (mass/volume)on 07-01-2021 Urea nitrogen [Mass/Vol] 16 mg/dL 7-18 [facility] Work Phone: Thin prep Papanicolaou smear with manual screeningon 07-01-2021 Thin prep Papanicolaou smear with manual screening 49 U/L 15-37 [facility] Work Phone: Comment on above: Slight Hemolysis, Re sult may be falsely increased. Thin prep Papanicolaou smear with manual screening 10 5-15 [facility] Work Phone: Whole blood hemoglobin A1c/t otal hemoglobin ratio (mass fraction)on 07-01-2021 HbA1c (Bld) [Mass fraction] 5.1 % 3.8-5.6 [facility] Work Phone: Comment on above: Normal < 5.7 % Predi abetic 5.7 - 6.4 % Diabetic >or= 6.5 % Please note range changes. Absolute lymphocyte counton 04-17-2021 Lymphocytes Auto (Unsp spec) [#/Vol] 0.60 10*3/uL 0.83-4.51 [facility] Work Phone: Basophil percentageon 2021 Basophils/100 WBC (Bld) 0.4 % 0-1 [facility] Work Phone: Bilirubin [Mass/Vol] 0.30 mg/dL 0.20-1.00 [facility] Work Phone: Comment on above: For patients on eltr ombopag therapy, use of Dimension [place] TBIL is not recommended. Chloride [Moles/Vol] 105 mmol/L 98-107 [facility] Work Phone: Eosinophils/100 WBC (Bld) 1.6 % 0-5 [facility] Work Phone: Glucose [Mass/Vol] 85 mg/dL 74-106 [facility] Work Phone: Neutrophils (Bld) [#/Vol] 1.4 10*3/uL 2.0-7.7 [facility] Work Phone: Neutrophils/100 WBC (Bld) 57.6 % 47-70 [facility] Work Phone: Potassium [Moles/Vol] 4.1 mmol/L 3.5-5.1 [facility] Work Phone: Protein [Mass/Vol] 7.1 g/dL 6.4-8.2 [facility] Work Phone: Sodium [Moles/Vol] 137 mmol/L 136-145 [facility] Work Phone: WBC (Bld) [#/Vol] 2.5 10*3/uL 4.4-11.0 [facility] Work Phone: Blood erythrocytes count (nu mber/volume)on 04-17-2021 RBC (Bld) [#/Vol] 3.41 10*6/uL 4.2-5.4 [facility] Work Phone: Blood hemoglobin measurement (mass/volume)on 04-17-2021 Hemoglobin (Bld) [Mass/Vol] 12.7 g/dL 12.0-15.0 [facility] Work Phone: Blood lymphocytes/100 leukoc yteson 04-17-2021 Lymphocytes/100 WBC (Bld) 24.5 % 19-41 [facility] Work Phone: Blood monocytes/100 leukocyt eson 04-17-2021 Monocytes/100 WBC (Bld) 15.5 % 0-10 [facility] Work Phone: Blood platelet mean volumeon 04-17-2021 Platelet mean volume (Bld) [Entitic vol] 10.2 fL 6.2-12.0 [facility] Work Phone: Determination of erythrocyte mean corpuscular volume (MCV)on 04-17-2021 MCV (RBC) [Entitic vol] 107.9 fL 81-99 [facility] Work Phone: Hematocrit Auto (Bld) [Volum e fraction]on 04-17-2021 Hematocrit (Bld) [Volume fraction] 36.8 % 37-47 [facility] Work Phone: Laboratory - Chemistry and C hemistry - challengeon 04-17-2021 ALP [Catalytic activity/Vol] 67 U/L 45-117 [facility] Work Phone: ALT [Catalytic activity/Vol] 61 U/L 13-56 [facility] Work Phone: CO2 [Moles/Vol] 25.0 mmol/L 21.0-32.0 [facility] Work Phone: Globulin (S) [Mass/Vol] 3.3 g/dL 2.2-4.2 [facility] Work Phone: Urea nitrogen/Creatinine [Mass ratio] 16.0 mg/mg 10-20 [facility] Work Phone: Laboratory - Hematology and Cell countson 04-17-2021 Erythrocyte distribution width (RBC) [Entitic vol] 58.6 fL 35.1-43.9 [facility] Work Phone: Erythrocyte distribution width (RBC) [Ratio] 14.7 % 11.6-14.6 [facility] Work Phone: Immature granulocytes/100 WBC (Bld) 0.400 % 0.0-0.9 [facility] Work Phone: Comment on above: IG% - Immature Granu locytes (promyelocytes, myelocytes and metamyelocytes) > 1% indicates that a LEFT SHIFT is Present. MCH (RBC) [Entitic mass] 37.2 pg 27.0-32.0 [facility] Work Phone: Nucleated RBC/100 WBC (Bld) [Ratio] 0 % 0-5 [facility] Work Phone: MCHC Auto (RBC) [Mass/Vol]on 04-17-2021 MCHC (RBC) [Mass/Vol] 34.5 g/dL 32-[address] [facility] Work Phone: No Panel Informationon 04-17 Estimated Creatinine Clearance Calc 83.54 ml/min [facility] Work Phone: Estimated GFR (MDRD) Amer 94 mL/min >60 [facility] Work Phone: Comment on above: GFR Calc Estimated GFR (MDRD) Non-Af Amer 78 mL/min >60 [facility] Work Phone: Comment on above: Non- GFR Calc Pathologist review Robin (Unsp spec) [Interp]on 04-17-2021 Differential Pathologist's Review Reviewed [facility] Comment on above: Previous reported re sult: May foll Edited by: RGOOD on 04/18/21:1247Leukopenia and neutropenia.Macrocytosis.Clinical correlation necessary.Jose Fernando M.D. 04/18/21 AMENDED REPORT 04/18/211246 PATH REV previously reported as: June dileep Platelets bldon 04-17-2021 Platelets (Bld) [#/Vol] 135 10*3/uL 150-450 [facility] Work Phone: Review by pathologiston Pathologist review Robin (Unsp spec) [Interp] Reviewed [facility] Comment on above: Previous reported re sult: Yajaira dileep Edited by: RGOOD on 04/18/21:1247Leukopenia and neutropenia.Macrocytosis.Clinical correlation necessary.Jose Fernando M.D. 04/18/21 AMENDED REPORT 04/18/211246 PATH REV previously reported as: June dileep Serum or plasma albumin ana maria urement (mass/volume)on 04-17-2021 Albumin [Mass/Vol] 3.8 g/dL 3.2-5.0 [facility] Work Phone: Serum or plasma albumin/glob ulin mass ratioon 04-17-2021 Albumin/Globulin [Mass ratio] 1.2 {ratio} 0.9-2.4 [facility] Work Phone: Serum or plasma calcium ana maria urement (mass/volume)on 04-17-2021 Calcium [Mass/Vol] 9.1 mg/dL 8.5-10.1 [facility] Work Phone: Serum or plasma creatinine m easurement (mass/volume)on 04-17-2021 Creatinine [Mass/Vol] 0.88 mg/dL 0.55-1.[address] [facility] Work Phone: Comment on above: The validity of the calculated GFR & GFRAA in patients over 70 years has not been determined. Clinical correlation is essential. Serum or plasma urea nitroge n measurement (mass/volume)on 04-17-2021 Urea nitrogen [Mass/Vol] 14 mg/dL 7-18 [facility] Work Phone: Thin prep Papanicolaou smear with manual screeningon 04-17-2021 Thin prep Papanicolaou smear with manual screening 33 U/L 15-37 [facility] Work Phone: Thin prep Papanicolaou smear with manual screening 7 5-15 [facility] Work Phone: Thin prep Papanicolaou smear with manual screening 218 U/L 84-246 [facility] Work Phone: CT HEAD WO CONTRASTon 2020 CT HEAD WO CONTRAST Patient Name: VIOLET HERNANDEZ STUDY: CT of the head without contrast INDICATION: headache COMPARISON: None ACCESSION NUMBER(S): [id number] ORDERING CLINICIAN: JAMES CAMACHO TECHNIQUE: CT scan of the head was performed from the skull base to the vertex without intravenous contrast. Coronal and sagittal reformats were obtained. FINDINGS: CSF spaces: Unremarkable. Parenchyma: Unremarkable. Paranasal sinuses/mastoids/orbits : Unremarkable. Calvarium: Unremarkable. IMPRESSION: 1. No acute finding. Electronically signed by: NASIR SADLER MD [facility] Covid 19 Resultson 1 SARS-CoV-2 (COVID-19) RNA [...] You may also be contacted by the [facility] to see if any of your [...] or Naproxen (Aleve) can also be used. Cxdf-ijt-oimqmnr cough and cold medicines can be used according to the instructions on the package. Some bgjw-bkt-uuwwpvp medicines also contain acetaminophen. Make sure you [...] water are not available, use alcohol-based hand campaign consultant. Avoid touching your eyes, nose, and mouth [...] 24 nicolas (more content not included)... Normal [facility] INFLUENZA A/B, COVID 2019 PC R,SYMPTOMATICon 01-19-2021 INFLUENZA A, PCR Not detected Normal Not Detected [facility] Comment on above: Result Comment: Resp iratory virus testing is performed routinely by PCR for Influenza A/B and RSV. Not Detected results do not preclude Influenza A/B or RSV infections since the adequacy of sample collection or low viral burden may impact the clinical sensitivity of this test method. Performed By: #### C OINP #### [place] [address] INFLUENZA B, PCR Not detected Normal Not Detected [facility] Comment on above: Result Comment: Resp iratory virus testing is performed routinely by PCR for Influenza A/B and RSV. Not Detected results do not preclude Influenza A/B or RSV infections since the adequacy of sample collection or low viral burden may impact the clinical sensitivity of this test method. Performed By: #### C OINP #### [place] [address] SARS-CoV-2 (COVID-19) RNA MALKA+probe Ql (Unsp spec) Not detected Normal Not Detected [facility] Comment on above: Result Comment: . This test has received FDA Emergency Use Authorization (EUA) and has been verified by [facility]. This test is only authorized for the duration of time that circumstances exist to justify the authorization of the emergency use of in vitro diagnostic tests for the detection of SARS-CoV-2 virus and/or diagnosis of COVID-19 infection under section 564(b)(1) of the Act, 21 U.S.C. 360bbb-3(b)(1), unless the authorization is terminated or revoked sooner. [facility] is certified under CLIA-88 as qualified to perform high complexity testing. Testing is performed in the [facility] laboratory located at [address] [place] [address]. SARS-CoV-2/Flu/RSV Multiplex Test: Fact sheet for providers: https://www.fda.gov/media/521841/download Fact sheet for patients: https://www.fda.gov/media/305492/download Performed By: #### C OINP #### [place] [address] Lab Specimen Source Nasal, Nasopharyngeal Normal [facility] Comment on above: Performed By: #### C OINP #### [place] [address] DATE OF SYMPTOM ONSET [YYYYMMDD]? [id number] Normal [facility] Comment on above: Performed By: #### C OINP #### [address] [address] Provider Note - ED v3on 01-09 Provider [...] made to minimize errors. Minor errors in credit collector may be present. Please call if questions.. [...] the adequa (more content not included)... Normal [facility] Risk Screen - Adult Emergenc yon 01-19-2021 [...] instruction; written material Cultural Considerationsnone Developmental Considerationsnone Latter-Day Considerationsnone Learning Assessment (Other Learner): Learning Assessment (Other Learner): Other learner availableno Pressure Injury/TB/Substance: Pressure Injury: Do you have a coughyes... Has your cough lasted longer than 2 weeksno Smoking Statusnever smoker Alcohol Useoccasionally Drug Usedenies Admission Risk Screen: Significant IndicatorsComplete CAGE: CAGE: Is this an injured patient at a Trauma Center ([facility]/[place]): no Electronic Signatures: Miladis Haney (RN) (Signed 19-Jan-2021 13:13) Authored: Preferred Language, Advanced Directives, Family Violence Adult, Learning Assessment (Patient), Learning Assessment (Other Learner), Pressure Injury/TB/Substance, Pressure Injury, CAGE Last Updated: 19-Jan-2021 13:13 by Miladis Haney (RN) [facility] Triage - EDon 01-19-2021 Triage - ED Quick Triage: Are You no Have You Given In The Last 6 Weeksno Are You Currently Breastfeedingno Chart Review: PRIMARY ASSESSMENT ABCD Normal Findings: airway open and patent, circulation normal and alert and oriented ARRIVAL INFORMATION Means of Arrival: Ambulatory Mode of Arrival: private vehicle Arrival From: home Accompanied By: self Language: Spoken Language Preferred: Nepalese Reading Language Preferred: Nepalese Present on Arrival: Device Present on Arrival [...] BMI (kg/m2): 28.897 Calculated BSA (m2) 1.60 Elizabeth Coma Scale: Best Eye Response: (E4) spontaneous [...] 19-Jan-2021 13:12 by Miladis Haney (RN) Normal [facility] Erythrocyte sedimentation ra eva 03-28-2019 ESR (Bld) [Velocity] 10 mm/h 0-20 [facility] Hemoglobin in reticulocytes (mass per reticulocyte)on 03-28-2019 Hemoglobin (Reticulocytes) [Entitic mass] 37.4 pg 30-35 [facility] Work Phone: IgA [Mass/Vol]on 03-28-2019 Immunoglobulin A 172 mg/dL 87-352 [facility] IgG [Mass/Vol]on 03-28-2019 Immunoglobulin G 757 mg/dL 700-1600 [facility] IgM [Mass/Vol]on 03-28-2019 Immunoglobulin M 41 mg/dL 26-217 [facility] Comment on above: Performed at: [address] [id number] Director: Jorgito Cunningham PhD, Phone: [phone] No Panel Informationon 03-28 Anti-Nuclear Antibody Screen Negative Negative [facility] Comment on above: Performed at: [facility] [id number] [place], [place] [id number] Director: Jorgito Cunningham PhD, Phone: [phone] Immature Reticulocyte Fraction 14.70 % 3.00-15.90 [facility] Work Phone: Reticulocyte Count 1.53 % 0.5-1.5 [facility] Work Phone: Serum or plasma IgA measurem ent (mass/volume)on 03-28-2019 IgA [Mass/Vol] 172 mg/dL 87-352 [facility] Serum or plasma IgG measurem ent (mass/volume)on 03-28-2019 IgG [Mass/Vol] 757 mg/dL 700-1600 [facility] Serum or plasma IgM measurem ent (mass/volume)on 03-28-2019 IgM [Mass/Vol] 41 mg/dL 26-217 [facility] Comment on above: Performed at: [facility] [id number] [place], [place] [id number] Director: Jorgito Cunningham PhD, Phone: [phone] CURon 11-25-2018 CUR . MICRO - Microbiology [...] Locations *1: This test was performed at: [facility], [address] [place] [address], [id number] , [facility] ([place]) Comment on above: Performed By: #### C UR #### [address] [address] .Auto Diffon 11-23-2018 Ammonia (P) [Mass/Vol] 0.40 10 3/mcL Normal 0.09-1.40 [facility] ([place]) Comment on above: Performed By: #### C BC, ADIFF, ANEU, GFR, CMP, ERDS #### [address] [address] Basophils (Bld) [#/Vol] 0.00 10 3/mcL Normal 0.00-0.27 [facility] ([place]) Comment on above: Performed By: #### C BC, ADIFF, ANEU, GFR, CMP, ERDS #### [address] [address] Basophils/100 WBC (Bld) 0.3 % Normal 0.0-2.5 [facility] ([place]) Comment on above: Performed By: #### C BC, ADIFF, ANEU, GFR, CMP, ERDS #### [address] [address] Eosinophils (Bld) [#/Vol] 0.00 10 3/mcL Normal 0.00-0.65 [facility] ([place]) Comment on above: Performed By: #### C BC, ADIFF, ANEU, GFR, CMP, ERDS #### [address] [address] Eosinophils/100 WBC (Bld) 0.5 % Normal 0.0-6.0 [facility] ([place]) Comment on above: Performed By: #### C BC, ADIFF, ANEU, GFR, CMP, ERDS #### [address] [address] Lymphocytes (Bld) [#/Vol] 0.60 10 3/mcL Low 0.90-4.32 [facility] ([place]) Comment on above: Performed By: #### C BC, ADIFF, ANEU, GFR, CMP, ERDS #### [address] [address] Lymphocytes/100 WBC (Bld) 17.6 % Low 20.0-40.0 [facility] ([place]) Comment on above: Performed By: #### C BC, ADIFF, ANEU, GFR, CMP, ERDS #### [address] [address] Monocytes/100 WBC (Bld) 11.0 % Normal 2.0-13.0 [facility] ([place]) Comment on above: Performed By: #### C BC, ADIFF, ANEU, GFR, CMP, ERDS #### [address] [address] Neutrophils/100 WBC (Bld) 70.6 % Normal 50.0-75.0 [facility] ([place]) Comment on above: Performed By: #### C BC, ADIFF, ANEU, GFR, CMP, ERDS #### [address] [address] .GFRon 11-23-2018 GFR Non- >60 Normal [facility] ([place]) Comment on above: Result Comment: GFR Population [...] BC, ADIFF, ANEU, GFR, CMP, ERDS #### [address] [address] GFR >60 Normal [facility] ([place]) Comment on above: Result Comment: GFR Population [...] BC, ADIFF, ANEU, GFR, CMP, ERDS #### [address] [address] .NEUABSon 11-23-2018 Neutrophils (Bld) [#/Vol] 2.40 10 3/mcL Normal 2.25-8.10 [facility] ([place]) Comment on above: Performed By: #### C BC, ADIFF, ANEU, GFR, CMP, ERDS #### [place] [address] CBCon 11-23-2018 Erythrocyte distribution width (RBC) [Ratio] 13.9 % Normal 11.5-15.5 [facility] ([place]) Comment on above: Performed By: #### C BC, ADIFF, ANEU, GFR, CMP, ERDS #### [place] [address] Hematocrit (Bld) [Volume fraction] 39.4 % Normal 34.0-46.0 [facility] ([place]) Comment on above: Performed By: #### C BC, ADIFF, ANEU, GFR, CMP, ERDS #### [place] [id number] Hemoglobin (Bld) [Mass/Vol] 13.5 G/dL Normal 12.0-16.0 [facility] ([place]) Comment on above: Performed By: #### C BC, ADIFF, ANEU, GFR, CMP, ERDS #### [place] [id number] MCH (RBC) [Entitic mass] 37.4 pg High 27.0-33.0 [facility] ([place]) Comment on above: Performed By: #### C BC, ADIFF, ANEU, GFR, CMP, ERDS #### [place] [id number] MCHC (RBC) [Mass/Vol] 34.3 G/dL Normal 32.0-36.0 [facility] ([place]) Comment on above: Performed By: #### C BC, ADIFF, ANEU, GFR, CMP, ERDS #### [place] [id number] MCV (RBC) [Entitic vol] 109.0 fL High 80.0-99.0 [facility] ([place]) Comment on above: Performed By: #### C BC, ADIFF, ANEU, GFR, CMP, ERDS #### [place] [id number] Platelet mean volume (Bld) [Entitic vol] 8.4 fL Normal 6.6-10.5 [facility] ([place]) Comment on above: Performed By: #### C BC, ADIFF, ANEU, GFR, CMP, ERDS #### [place] [id number] Platelets (Bld) [#/Vol] 136 10 3/mcL Low 150-450 [facility] ([place]) Comment on above: Performed By: #### C BC, ADIFF, ANEU, GFR, CMP, ERDS #### [place] [id number] RBC (Bld) [#/Vol] 3.61 10 6/mcL Low 4.10-5.30 [facility] ([place]) Comment on above: Performed By: #### C BC, ADIFF, ANEU, GFR, CMP, ERDS #### [place] [id number] WBC (Bld) [#/Vol] 3.40 10 3/mcL Low 4.50-10.80 [facility] ([place]) Comment on above: Performed By: #### C BC, ADIFF, ANEU, GFR, CMP, ERDS #### [place] [id number] CMPon 11-23-2018 Albumin/Globulin [Mass ratio] 1.4 {ratio} Normal 0.9-1.6 [facility] ([place]) Comment on above: Performed By: #### C BC, ADIFF, ANEU, GFR, CMP, ERDS #### [address] [address] ALP [Catalytic activity/Vol] 45 U/L Normal 38-126 [facility] ([place]) Comment on above: Performed By: #### C BC, ADIFF, ANEU, GFR, CMP, ERDS #### [address] [address] Bili Total 0.4 mg/dL Normal 0.2-1.2 [facility] ([place]) Comment on above: Performed By: #### C BC, ADIFF, ANEU, GFR, CMP, ERDS #### [address] [address] Globulin (S) [Mass/Vol] 3.0 G/dL Normal 1.5-3.8 [facility] ([place]) Comment on above: Performed By: #### C BC, ADIFF, ANEU, GFR, CMP, ERDS #### [place] [id number] Protein [Mass/Vol] 7.1 G/dL Normal 6.0-8.5 [facility] ([place]) Comment on above: Performed By: #### C BC, ADIFF, ANEU, GFR, CMP, ERDS #### [address] [address] Albumin [Mass/Vol] 4.1 G/dL Normal 3.2-4.8 [facility] ([place]) Comment on above: Performed By: #### C BC, ADIFF, ANEU, GFR, CMP, ERDS #### [address] [address] ALT [Catalytic activity/Vol] 36 U/L Normal 10-49 [facility] ([place]) Comment on above: Performed By: #### C BC, ADIFF, ANEU, GFR, CMP, ERDS #### [place] [id number] AST [Catalytic activity/Vol] 20 U/L Normal 8-34 [facility] ([place] Comment on above: Performed By: #### C BC, ADIFF, ANEU, GFR, CMP, ERDS #### [address] [address] Calcium [Mass/Vol] 9.2 mg/dL Normal 8.4-10.1 [facility] ([place]) Comment on above: Performed By: #### C BC, ADIFF, ANEU, GFR, CMP, ERDS #### [address] [address] Chloride [Moles/Vol] 106 mmol/L Normal 98-110 [facility] ([place]) Comment on above: Performed By: #### C BC, ADIFF, ANEU, GFR, CMP, ERDS #### [place] [id number] CO2 [Moles/Vol] 21 mmol/L Low 22-32 [facility] ([place]) Comment on above: Performed By: #### C BC, ADIFF, ANEU, GFR, CMP, ERDS #### [place] [address] Creatinine [Mass/Vol] 0.66 mg/dL Normal 0.50-1.20 [facility] ([place]) Comment on above: Performed By: #### C BC, ADIFF, ANEU, GFR, CMP, ERDS #### [place] [address] Electrolyte Balance 11.0 mEq/L Normal 4.0-15.0 [facility] ([place]) Comment on above: Performed By: #### C BC, ADIFF, ANEU, GFR, CMP, ERDS #### [place] [address] Glucose [Mass/Vol] 88 mg/dL Normal 70-110 [facility] ([place]) Comment on above: Performed By: #### C BC, ADIFF, ANEU, GFR, CMP, ERDS #### [place] [address] Potassium [Moles/Vol] 3.7 mmol/L Normal 3.5-5.0 [facility] ([place]) Comment on above: Performed By: #### C BC, ADIFF, ANEU, GFR, CMP, ERDS #### [place] [address] Sodium [Moles/Vol] 138 mmol/L Normal 136-145 [facility] ([place]) Comment on above: Performed By: #### C BC, ADIFF, ANEU, GFR, CMP, ERDS #### [place] [address] Urea nitrogen [Mass/Vol] 11.0 mg/dL Normal 8.0-22.0 [facility] ([place] Comment on above: Performed By: #### C BC, ADIFF, ANEU, GFR, CMP, ERDS #### [place] [address] Urea nitrogen/Creatinine [Mass ratio] 16.7 ratio Normal 10.0-22.0 [facility] ([place] Comment on above: Performed By: #### C BC, ADIFF, ANEU, GFR, CMP, ERDS #### [place] [address] ERDSon 11-23-2018 Acetaminophen [Mass/Vol] <2.0 Low 10.0-30.0 [facility] ([place]) Comment on above: Performed By: #### C BC, ADIFF, ANEU, GFR, CMP, ERDS #### [place] [address] ER Drug Screen (s) Negative Normal [facility] ([place]) Comment on above: Performed By: #### C BC, ADIFF, ANEU, GFR, CMP, ERDS #### [place] [address] ER Drug Screen Interp Serum shows no abel dence of drugs routinely screened [facility] ([place]) Comment on above: Performed By: #### C BC, ADIFF, ANEU, GFR, CMP, ERDS #### [place] [address] ER Serum Drugs Screened: See Below Normal [facility] ([place]) Comment on above: Result Comment: This drug screen is a presumptive screening only. No confirmation will be performed unless requested. Drugs included in the ER serum drug screen are: Threshold Ethanol 10.0 mg/dL Salicylate 2.0 mg/dL Acetaminophen 2.0 mcg/mL Tricyclic Antidepressants 300 ng/mL Testing has been performed FOR MEDICAL PURPOSES ONLY. Performed By: #### C BC, ADIFF, ANEU, GFR, CMP, ERDS #### [place] [address] Ethanol Level <10.0 [facility] ([place]) Comment on above: Performed By: #### C BC, ADIFF, ANEU, GFR, CMP, ERDS #### [place] [address] Salicylate Lvl (ds) <2.0 Low 10.0-25.0 [facility] ([place]) Comment on above: Performed By: #### C BC, ADIFF, ANEU, GFR, CMP, ERDS #### [place] [address] TCA (s) Negative [facility] [facility] [place] ([place]) Comment on above: Performed By: #### C BC, ADIFF, ANEU, GFR, CMP, ERDS #### [place] [address] U ERDSon 11-23-2018 ER U Drug Screen Negative Formerly [facility] ([place]) Comment on above: Performed By: #### U ERDS #### [place] [address] ER U Drug Screen Interp Urine shows no evidence of drugs routinely screened. [facility] ([place]) Comment on above: Performed By: #### U ERDS #### [place] [address] U ER Drugs Screened: See Below [facility] ([place]) Comment on above: Result Comment: This drug [...] ONLY. Performed By: #### U ERDS #### [address] [address] Vital Signs Date Time Vital Sign Value Performing Clinician Facility 10-31-2024 10:15-0400 Body temperature 97.2 [degF] Dr. Emily Sanders MD Work Phone: [facility] 10-31-2024 10:15-0400 Diastolic blood pressure 72 mm[Hg] Dr. Emily Sanders MD Work Phone: [facility] 10-31-2024 10:15-0400 Heart rate 68 /min Dr. Emily Sanders MD Work Phone: [phone] [place] [address] 10-31-2024 10:15-0400 Respiratory rate 16 /min Dr. Emily Sanders MD Work Phone: [facility] 10-31-2024 10:15-0400 SaO2% (BldA) [Mass fraction] 99 % Dr. Emily Sanders MD Work Phone: [facility] 10-31-2024 10:15-0400 Systolic blood pressure 114 mm[Hg] Dr. Emily Sanders MD Work Phone: [facility] 10-31-2024 09:07-0400 Body height 147.[address] Emily Sanders MD Work Phone: [facility] 10-31-2024 09:07-0400 Body mass index (BMI) [Ratio] 27.1 kg/m2 Dr. Emily Sanders MD Work Phone: [facility] 10-31-2024 09:07-0400 Body weight [address] Emily Sanders MD Work Phone: [facility] 10-21-2024 05:59-0400 Body height 147.[address] Emily Sanders MD Work Phone: [facility] 10-21-2024 05:59-0400 Body mass index (BMI) [Ratio] 27.1 kg/m2 Dr. Eimly Sanders MD Work Phone: [facility] 10-21-2024 05:59-0400 Body temperature 97.4 [degF] Dr. Emily Sanders MD Work Phone: [facility] 10-21-2024 05:59-0400 Body weight 58.[address] Emily Sanders MD Work Phone: [facility] 10-21-2024 05:59-0400 Diastolic blood pressure 66 mm[Hg] Dr. Emily Sanders MD Work Phone: [facility] 10-21-2024 05:59-0400 Heart rate 49 /min Dr. Emily Sanders MD Work Phone: [facility] 10-21-2024 05:59-0400 Respiratory rate 18 /min Dr. Emily Sanders MD Work Phone: [facility] 10-21-2024 05:59-0400 SaO2% (BldA) [Mass fraction] 98 % Dr. Emily Sanedrs MD Work Phone: [facility] 10-21-2024 05:59-0400 Systolic blood pressure 118 mm[Hg] Dr. Emily Sanders MD Work Phone: [facility] 10-18-2024 11:22-0400 Body height 147.[address] Emily Sanders MD Work Phone: [facility] 10-18-2024 11:22-0400 Body mass index (BMI) [Ratio] 28 kg/m2 Dr. Emily Sanders MD Work Phone: [facility] 10-18-2024 11:22-0400 Body temperature 98.4 [degF] Dr. Emily Sanders MD Work Phone: [facility] 10-18-2024 11:22-0400 Body weight 60.[address] Emily Sanders MD Work Phone: [facility] 10-18-2024 11:22-0400 Diastolic blood pressure 75 mm[Hg] Dr. Emily Sanders MD Work Phone: [facility] 10-18-2024 11:22-0400 Heart rate 53 /min Dr. Emily Sanders MD Work Phone: [facility] 10-18-2024 11:22-0400 Respiratory rate 16 /min Dr. Emiyl Sanders MD Work Phone: [facility] 10-18-2024 11:22-0400 SaO2% (BldA) [Mass fraction] 99 % Dr. Emily Sanders MD Work Phone: [facility] 10-18-2024 11:22-0400 Systolic blood pressure 125 mm[Hg] Dr. Emily Sanders MD Work Phone: [facility] 10-12-2024 09:35-0400 Body height 147.[address] Emily Sanders MD Work Phone: [facility] 10-12-2024 09:35-0400 Body mass index (BMI) [Ratio] 28 kg/m2 Dr. Emily Sanders MD Work Phone: [facility] 10-12-2024 09:35-0400 Body weight 60.[address] Emily Sanders MD Work Phone: [facility] 10-12-2024 09:35-0400 Diastolic blood pressure 69 mm[Hg] Dr. Emily Sanders MD Work Phone: [facility] 10-12-2024 09:35-0400 Heart rate 52 /min Dr. Emily Sanders MD Work Phone: [facility] 10-12-2024 09:35-0400 SaO2% (BldA) [Mass fraction] 95 % Dr. Emily Sanders MD Work Phone: [facility] 10-12-2024 09:35-0400 Systolic blood pressure 112 mm[Hg] Dr. Emily Sanders MD Work Phone: [facility] 10-11-2024 15:15-0400 Body height 147.[address] Emily Sanders MD Work Phone: [facility] 10-11-2024 15:15-0400 Body mass index (BMI) [Ratio] 28 kg/m2 Dr. Emily Sanders MD Work Phone: [facility] 10-11-2024 15:15-0400 Body temperature 97.2 [degF] Dr. Emily Sanders MD Work Phone: [facility] 10-11-2024 15:15-0400 Body weight 60.[address] Emily Sanders MD Work Phone: [facility] 10-11-2024 15:15-0400 Diastolic blood pressure 76 mm[Hg] Dr. Emily Sanders MD Work Phone: [facility] 10-11-2024 15:15-0400 Heart rate 63 /min Dr. Emily Sanders MD Work Phone: [facility] 10-11-2024 15:15-0400 Respiratory rate 16 /min Dr. Emily Sanders MD Work Phone: [facility] 10-11-2024 15:15-0400 SaO2% (BldA) [Mass fraction] 95 % Dr. Emily Sanders MD Work Phone: [facility] 10-11-2024 15:15-0400 Systolic blood pressure 115 mm[Hg] Dr. Emily Sanders MD Work Phone: [facility] 09-30-2024 13:10-0400 Body height 147.3 cm Sherly Ng APRN.CNP Work Phone: [facility] 09-30-2024 13:10-0400 Body mass index (BMI) [Ratio] 28.01 kg/m2 Sherly Ng APRN.[employer] Work Phone: [facility] 09-30-2024 13:10-0400 Body weight 60.78 kg Sherly Ng APRN.[employer] Work Phone: [facility] 09-30-2024 13:10-0400 Diastolic blood pressure 60 mm[Hg] Sherly Ng APRN.[employer] Work Phone: [facility] 09-30-2024 13:10-0400 Heart rate 60 /min Sherly Ng APRN.[employer] Work Phone: [facility] 09-30-2024 13:10-0400 Respiratory rate 14 /min Sherly Ng APRN.[employer] Work Phone: [facility] 09-30-2024 13:10-0400 SaO2% (BldA) [Mass fraction] 98 % Sherly Ng APRN.[employer] Work Phone: [facility] 09-30-2024 13:10-0400 Systolic blood pressure 96 mm[Hg] Sherly Ng APRN.[employer] Work Phone: [facility] 09-23-2024 08:44-0400 Body mass index (BMI) [Ratio] 27.4 kg/m2 Dr. Emily Sanders MD Work Phone: [facility] 09-23-2024 08:44-0400 Body weight 59.[address] Emily Sanders MD Work Phone: [facility] 09-23-2024 08:44-0400 Diastolic blood pressure 62 mm[Hg] Dr. Emily Sanders MD Work Phone: [facility] 09-23-2024 08:44-0400 Heart rate 51 /min Dr. Emily Sanders MD Work Phone: [facility] 09-23-2024 08:44-0400 Respiratory rate 18 /min Dr. Emily Sanders MD Work Phone: [facility] 09-23-2024 08:44-0400 Systolic blood pressure 106 mm[Hg] Dr. Emily Sanders MD Work Phone: [facility] 09-10-2024 07:44-0400 Body temperature 98.7 [degF] Dr. Emily Sanders MD Work Phone: [facility] 09-10-2024 07:44-0400 Diastolic blood pressure 68 mm[Hg] Dr. Emily Sanders MD Work Phone: [facility] 09-10-2024 07:44-0400 Heart rate 47 /min Dr. Emily Sanders MD Work Phone: [facility] 09-10-2024 07:44-0400 Respiratory rate 12 /min Dr. Emily Sanders MD Work Phone: [facility] 09-10-2024 07:44-0400 SaO2% (BldA) [Mass fraction] 97 % Dr. Emily Sanders MD Work Phone: [facility] 09-10-2024 07:44-0400 Systolic blood pressure 131 mm[Hg] Dr. Emily Sanders MD Work Phone: [facility] 09-10-2024 05:54-0400 Body height 147.[address] Emily Sanders MD Work Phone: [facility] 09-10-2024 05:54-0400 Body mass index (BMI) [Ratio] 28 kg/m2 Dr. Emily Sanders MD Work Phone: [facility] 09-10-2024 05:54-0400 Body weight [address] Emily Sanders MD Work Phone: [facility] 09-09-2024 12:33-0400 Body height 147.[address] Emily Sanders MD Work Phone: [facility] 09-09-2024 12:33-0400 Body mass index (BMI) [Ratio] 27.8 kg/m2 Dr. Emily Sanders MD Work Phone: [facility] 09-09-2024 12:33-0400 Body temperature 97.9 [degF] Dr. Emily Sanders MD Work Phone: [facility] 09-09-2024 12:33-0400 Body weight 60.[address] Emily Sanders MD Work Phone: [facility] 09-09-2024 12:33-0400 Diastolic blood pressure 66 mm[Hg] Dr. Emily Sanders MD Work Phone: [facility] 09-09-2024 12:33-0400 Heart rate 53 /min Dr. Emily Sanders MD Work Phone: [facility] 09-09-2024 12:33-0400 Respiratory rate 16 /min Dr. Emily Sanders MD Work Phone: [facility] 09-09-2024 12:33-0400 SaO2% (BldA) [Mass fraction] 97 % Dr. Emily Sanders MD Work Phone: [facility] 09-09-2024 12:33-0400 Systolic blood pressure 108 mm[Hg] Dr. Emily Sanders MD Work Phone: [facility] 09-03-2024 16:46-0400 Diastolic blood pressure 61 mm[Hg] Dr. Emily Sanders MD Work Phone: [facility] 09-03-2024 16:46-0400 Heart rate 50 /min Dr. Emily Sanders MD Work Phone: [facility] 09-03-2024 16:46-0400 Respiratory rate 16 /min Dr. Emily Sanders MD Work Phone: [facility] 09-03-2024 16:46-0400 SaO2% (BldA) [Mass fraction] 99 % Dr. Emily Sanders MD Work Phone: [facility] 09-03-2024 16:46-0400 Systolic blood pressure 127 mm[Hg] Dr. Emily Sanders MD Work Phone: [facility] 09-03-2024 16:28-0400 Body temperature 98.1 [degF] Dr. Emily Sanders MD Work Phone: [facility] 09-03-2024 14:55-0400 Body height 147.[address] Emily Sanders MD Work Phone: [facility] 07-28-2024 11:46-0400 Body height 147.[address] Emily Sanders MD Work Phone: [facility] 07-28-2024 11:46-0400 Body mass index (BMI) [Ratio] 27.6 kg/m2 Dr. Emily Sanders MD Work Phone: [facility] 07-28-2024 11:46-0400 Body temperature 97.9 [degF] Dr. Emily Sanders MD Work Phone: [facility] 07-28-2024 11:46-0400 Body weight 60.[address] Emily Sanders MD Work Phone: [facility] 07-28-2024 11:46-0400 Diastolic blood pressure 67 mm[Hg] Dr. Emily Sanders MD Work Phone: [facility] 07-28-2024 11:46-0400 Heart rate 57 /min Dr. Emily Sanders MD Work Phone: [facility] 07-28-2024 11:46-0400 Respiratory rate 18 /min Dr. Emily Sanders MD Work Phone: [facility] 07-28-2024 11:46-0400 SaO2% (BldA) [Mass fraction] 97 % Dr. Emily Sanders MD Work Phone: [facility] 07-28-2024 11:46-0400 Systolic blood pressure 113 mm[Hg] Dr. Emily Sanders MD Work Phone: [facility] 07-19-2024 12:32-0400 Body height 147.[address] Emily Sanders MD Work Phone: [facility] 07-19-2024 12:32-0400 Body mass index (BMI) [Ratio] 28 kg/m2 Dr. Emily Sanders MD Work Phone: [facility] 07-19-2024 12:32-0400 Body weight 60.[address] Emily Sanders MD Work Phone: [facility] 07-19-2024 12:32-0400 Diastolic blood pressure 66 mm[Hg] Dr. Emily Sanders MD Work Phone: [facility] 07-19-2024 12:32-0400 Heart rate 50 /min Dr. Emily Sanders MD Work Phone: [facility] 07-19-2024 12:32-0400 SaO2% (BldA) [Mass fraction] 95 % Dr. Emily Sanders MD Work Phone: [facility] 07-19-2024 12:32-0400 Systolic blood pressure 109 mm[Hg] Dr. Emily Sanders MD Work Phone: [facility] 06-29-2024 08:21-0400 Body height 147.[address] Emily Sanders MD Work Phone: [facility] 06-29-2024 08:21-0400 Body mass index (BMI) [Ratio] 28.3 kg/m2 Dr. Emily Sanders MD Work Phone: [facility] 06-29-2024 08:21-0400 Body weight 61.[address] Emily Sanders MD Work Phone: [facility] 06-29-2024 08:21-0400 Diastolic blood pressure 72 mm[Hg] Dr. Emily Sanders MD Work Phone: [facility] 06-29-2024 08:21-0400 Heart rate 60 /min Dr. Emily Sanders MD Work Phone: [facility] 06-29-2024 08:21-0400 Respiratory rate 18 /min Dr. Emily Sanders MD Work Phone: [facility] 06-29-2024 08:21-0400 SaO2% (BldA) [Mass fraction] 96 % Dr. Emily Sanders MD Work Phone: [facility] 06-29-2024 08:21-0400 Systolic blood pressure 107 mm[Hg] Dr. Emily Sanders MD Work Phone: [facility] 06-20-2024 07:58-0400 Body temperature 98.8 [degF] Dr. Emily Sanders MD Work Phone: [facility] 06-20-2024 07:58-0400 Diastolic blood pressure 60 mm[Hg] Dr. Emily Sanders MD Work Phone: [facility] 06-20-2024 07:58-0400 Heart rate 90 /min Dr. Emily Sanders MD Work Phone: [facility] 06-20-2024 07:58-0400 SaO2% (BldA) [Mass fraction] 97 % Dr. Emily Sanders MD Work Phone: [facility] 06-20-2024 07:58-0400 Systolic blood pressure 100 mm[Hg] Dr. Emily Sanders MD Work Phone: [facility] 05-20-2024 16:12-0400 Body height 147.3 cm Sherly Ng INCINERATOR OPERATOR.[employer] Work Phone: [facility] 05-20-2024 16:12-0400 Body mass index (BMI) [Ratio] 28.63 kg/m2 Sherly Ng INCINERATOR OPERATOR.[employer] Work Phone: [facility] 05-20-2024 16:12-0400 Body weight 62.14 kg Sherly Ng INCINERATOR OPERATOR.[employer] Work Phone: [facility] 05-20-2024 16:12-0400 Diastolic blood pressure 60 mm[Hg] Sherly Henryhrie INCINERATOR OPERATOR.[employer] Work Phone: [facility] 05-20-2024 16:12-0400 Systolic blood pressure 100 mm[Hg] Sherly Ng INCINERATOR OPERATOR.[employer] Work Phone: [facility] 04-27-2024 08:00-0400 Body height 147.[address] Emily Sanders MD Work Phone: [facility] 04-27-2024 08:00-0400 Body mass index (BMI) [Ratio] 28.8 kg/m2 Dr. Emily Sanders MD Work Phone: [facility] 04-27-2024 08:00-0400 Body temperature 97.2 [degF] Dr. Emily Sanders MD Work Phone: [facility] 04-27-2024 08:00-0400 Body weight 62.[address] Emily Sanders MD Work Phone: [facility] 04-27-2024 08:00-0400 Diastolic blood pressure 78 mm[Hg] Dr. Emily Sanders MD Work Phone: [facility] 04-27-2024 08:00-0400 Heart rate 80 /min Dr. Emily Sanders MD Work Phone: [facility] 04-27-2024 08:00-0400 Respiratory rate 18 /min Dr. Emily Sanders MD Work Phone: [facility] 04-27-2024 08:00-0400 SaO2% (BldA) [Mass fraction] 96 % Dr. Emily Sanders MD Work Phone: [facility] 04-27-2024 08:00-0400 Systolic blood pressure 118 mm[Hg] Dr. Emily Sanders MD Work Phone: [facility] 04-25-2024 13:07-0400 Body mass index (BMI) [Ratio] 28.9 kg/m2 Dr. Emily Sanders MD Work Phone: [facility] 04-25-2024 13:07-0400 Body temperature 98.2 [degF] Dr. Emily Sanders MD Work Phone: [facility] 04-25-2024 13:07-0400 Body weight 62.[address] Emily Sanders MD Work Phone: [facility] 04-25-2024 13:07-0400 Diastolic blood pressure 67 mm[Hg] Dr. Emily Sanders MD Work Phone: [facility] 04-25-2024 13:07-0400 Heart rate 56 /min Dr. Emily Sanders MD Work Phone: [facility] 04-25-2024 13:07-0400 Respiratory rate 18 /min Dr. Emily Sanders MD Work Phone: [facility] 04-25-2024 13:07-0400 SaO2% (BldA) [Mass fraction] 98 % Dr. Emily Sanders MD Work Phone: [facility] 04-25-2024 13:07-0400 Systolic blood pressure 114 mm[Hg] Dr. Emily Sanders MD Work Phone: [facility] 04-04-2024 09:24-0500 Diastolic blood pressure 60 mm[Hg] Dr. Emily Sanders MD Work Phone: [facility] 04-04-2024 09:24-0500 Systolic blood pressure 112 mm[Hg] Dr. Emily Sanders MD Work Phone: [facility] 04-04-2024 09:14-0500 Body height 147.[address] Emily Sanders MD Work Phone: [facility] 04-04-2024 09:14-0500 Body mass index (BMI) [Ratio] 28.6 kg/m2 Dr. Emily Sanders MD Work Phone: [facility] 04-04-2024 09:14-0500 Body temperature 98.4 [degF] Dr. Emily Sanders MD Work Phone: [facility] 04-04-2024 09:14-0500 Body weight 62.[address] Emily Sanders MD Work Phone: [facility] 04-04-2024 09:14-0500 Heart rate 78 /min Dr. Emily Sanders MD Work Phone: [facility] 04-04-2024 09:14-0500 Respiratory rate 18 /min Dr. Emily Sanders MD Work Phone: [facility] 04-04-2024 09:14-0500 SaO2% (BldA) [Mass fraction] 99 % Dr. Emily Sanders MD Work Phone: [facility] 04-03-2024 11:56-0500 Body temperature 97.8 [degF] Dr. Emily Sanders MD Work Phone: [facility] 04-03-2024 11:56-0500 Diastolic blood pressure 68 mm[Hg] Dr. Emily Sanders MD Work Phone: [facility] 04-03-2024 11:56-0500 Heart rate 52 /min Dr. Emily Sanders MD Work Phone: [facility] 04-03-2024 11:56-0500 Respiratory rate 16 /min Dr. Emily Sanders MD Work Phone: [facility] 04-03-2024 11:56-0500 SaO2% (BldA) [Mass fraction] 99 % Dr. Emily Sanders MD Work Phone: [facility] 04-03-2024 11:56-0500 Systolic blood pressure 124 mm[Hg] Dr. Emily Sanders MD Work Phone: [facility] 04-03-2024 09:49-0500 Body mass index (BMI) [Ratio] 28.8 kg/m2 Dr. Emily Sanders MD Work Phone: [facility] 04-03-2024 09:49-0500 Body weight 62.[address] Emily Sanders MD Work Phone: [facility] 03-31-2024 08:01-0500 Body temperature 98.1 [degF] Dr. Emily Sanders MD Work Phone: [facility] 03-31-2024 08:01-0500 Diastolic blood pressure 82 mm[Hg] Dr. Emily Sanders MD Work Phone: [facility] 03-31-2024 08:01-0500 Heart rate 73 /min Dr. Emily Sanders MD Work Phone: [facility] 03-31-2024 08:01-0500 Respiratory rate 16 /min Dr. Emily Sanders MD Work Phone: [facility] 03-31-2024 08:01-0500 SaO2% (BldA) [Mass fraction] 97 % Dr. Emily Sanders MD Work Phone: [facility] 03-31-2024 08:01-0500 Systolic blood pressure 137 mm[Hg] Dr. Emily Sanders MD Work Phone: [facility] 03-31-2024 06:26-0500 Body mass index (BMI) [Ratio] 29 kg/m2 Dr. Emily Sanders MD Work Phone: [facility] 03-31-2024 06:26-0500 Body weight 62.[address] Emily Sanders MD Work Phone: [facility] 03-29-2024 11:01-0500 Body height 147.3 cm Valentine Roth INCINERATOR OPERATOR-[employer] Work Phone: 5(546)[phone] [place] [address] 03-29-2024 11:01-0500 Body mass index (BMI) [Ratio] 28.84 kg/m2 Valentine Roth INCINERATOR OPERATOR-[employer] Work Phone: 6(776)251-717815 [place] [address] 03-29-2024 11:01-0500 Body temperature 98.1 [degF] Valentine Roth INCINERATOR OPERATOR-[employer] Work Phone: 9(399)[phone] [place] [address] 03-29-2024 11:01-0500 Body weight 62.6 kg Valentine Roth INCINERATOR OPERATOR-[employer] Work Phone: 8(730)[phone] [place] [address] 03-29-2024 11:01-0500 Diastolic blood pressure 75 mm[Hg] Valentine Roth INCINERATOR OPERATOR-[employer] Work Phone: 5(128)082-492215 [place] [address] 03-29-2024 11:01-0500 Heart rate 74 /min Valentine Roth INCINERATOR OPERATOR-[employer] Work Phone: 0(975)[phone] [place] [address] 03-29-2024 11:01-0500 Respiratory rate 18 /min Valentine Roth INCINERATOR OPERATOR-[employer] Work Phone: 8(416)668-821615 [place] [address] 03-29-2024 11:01-0500 SaO2% (BldA) [Mass fraction] 97 % Valentine Roth INCINERATOR OPERATOR-[employer] Work Phone: 2(340)202-820515 [place] [address] 03-29-2024 11:01-0500 Systolic blood pressure 107 mm[Hg] Valentine Roth INCINERATOR OPERATOR-[employer] Work Phone: [facility] 02-11-2024 13:37-0500 Body mass index (BMI) [Ratio] 29.89 kg/m2 Leo Monroe MD Work Phone: [facility] 02-11-2024 13:37-0500 Body weight 67.13 kg Leo Monroe MD Work Phone: [facility] 02-11-2024 13:37-0500 Diastolic blood pressure 66 mm[Hg] Leo Monroe MD Work Phone: [facility] 02-11-2024 13:37-0500 Systolic blood pressure 108 mm[Hg] Leo Monroe MD Work Phone: [facility] 01-18-2024 13:52-0500 Diastolic blood pressure 85 mm[Hg] Dr. Emily Sanders MD Work Phone: [facility] 01-18-2024 13:52-0500 Heart rate 65 /min Dr. Emily Sanders MD Work Phone: [facility] 01-18-2024 13:52-0500 Respiratory rate 16 /min Dr. Emily Sanders MD Work Phone: [facility] 01-18-2024 13:52-0500 SaO2% (BldA) [Mass fraction] 97 % Dr. Emily Sanders MD Work Phone: [facility] 01-18-2024 13:52-0500 Systolic blood pressure 130 mm[Hg] Dr. Emily Sanders MD Work Phone: [facility] 01-18-2024 12:47-0500 Body mass index (BMI) [Ratio] 31.1 kg/m2 Dr. Emily Sanders MD Work Phone: [facility] 01-18-2024 12:47-0500 Body temperature 97.2 [degF] Dr. Emily Sanders MD Work Phone: [facility] 01-18-2024 12:47-0500 Body weight 67.[address] Emily Sanders MD Work Phone: [facility] 01-15-2024 13:57-0500 Body height 149.9 cm Lee Billow DO Work Phone: [facility] 01-15-2024 13:57-0500 Body mass index (BMI) [Ratio] 30.3 kg/m2 Lee Billow DO Work Phone: [facility] 01-15-2024 13:57-0500 Body weight 68.04 kg Lee Billow DO Work Phone: [facility] 01-15-2024 13:57-0500 Diastolic blood pressure 78 mm[Hg] Lee Billow DO Work Phone: [facility] 01-15-2024 13:57-0500 Systolic blood pressure 119 mm[Hg] Lee Billow DO Work Phone: [facility] 12-31-2023 16:00-0500 Body mass index (BMI) [Ratio] 32.3 kg/m2 Dr. Emily Sanders MD Work Phone: [facility] 12-31-2023 16:00-0500 Body temperature 97.8 [degF] Dr. Emily Sanders MD Work Phone: [facility] 12-31-2023 16:00-0500 Body weight 70.[address] Emily Sanders MD Work Phone: [facility] 12-31-2023 16:00-0500 Diastolic blood pressure 60 mm[Hg] Dr. Emily Sanders MD Work Phone: [facility] 12-31-2023 16:00-0500 Heart rate 63 /min Dr. Emily Sanders MD Work Phone: [facility] 12-31-2023 16:00-0500 Respiratory rate 16 /min Dr. Emily Sanders MD Work Phone: [facility] 12-31-2023 16:00-0500 SaO2% (BldA) [Mass fraction] 96 % Dr. Emily Sanders MD Work Phone: [facility] 12-31-2023 16:00-0500 Systolic blood pressure 120 mm[Hg] Dr. Emily Sanders MD Work Phone: [facility] 12-17-2023 14:56-0500 Body height 147.3 cm Yennifer Brazofsky INCINERATOR OPERATOR.[employer] Work Phone: [facility] 12-17-2023 14:56-0500 Body mass index (BMI) [Ratio] 32.9 kg/m2 Yennifer Brazofsky INCINERATOR OPERATOR.[employer] Work Phone: [facility] 12-17-2023 14:56-0500 Body weight 71.4 kg Yennifer Brazofsky INCINERATOR OPERATOR.[employer] Work Phone: [facility] 12-17-2023 14:56-0500 Diastolic blood pressure 80 mm[Hg] Yennifer Brazofsky INCINERATOR OPERATOR.[employer] Work Phone: [facility] 12-17-2023 14:56-0500 Systolic blood pressure 124 mm[Hg] Yennifer Brazofsky INCINERATOR OPERATOR.[employer] Work Phone: [facility] 11-06-2023 13:22-0400 Body height 147.3 cm Pacc 1 Work Phone: [facility] 11-06-2023 13:22-0400 Body mass index (BMI) [Ratio] 33.02 kg/m2 Pacc 1 Work Phone: [facility] 11-06-2023 13:22-0400 Body temperature 97.9 [degF] Pacc 1 Work Phone: [facility] 11-06-2023 13:22-0400 Body weight 71.67 kg Pacc 1 Work Phone: [facility] 11-06-2023 13:22-0400 Diastolic blood pressure 76 mm[Hg] Pacc 1 Work Phone: [facility] 11-06-2023 13:22-0400 Heart rate 73 /min Pacc 1 Work Phone: [facility] 11-06-2023 13:22-0400 Respiratory rate 16 /min Pacc 1 Work Phone: [facility] 11-06-2023 13:22-0400 SaO2% (BldA) [Mass fraction] 98 % Pacc 1 Work Phone: [facility] 11-06-2023 13:22-0400 Systolic blood pressure 122 mm[Hg] Pacc 1 Work Phone: [facility] 10-26-2023 09:07-0400 Body height 147.3 cm Lee Billow DO Work Phone: [facility] 10-26-2023 09:07-0400 Body mass index (BMI) [Ratio] 32.6 kg/m2 Lee Billow DO Work Phone: [facility] 10-26-2023 09:07-0400 Body weight 70.76 kg Lee Billow DO Work Phone: [facility] 10-26-2023 09:07-0400 Diastolic blood pressure 79 mm[Hg] Lee Billow DO Work Phone: [facility] 10-26-2023 09:07-0400 Systolic blood pressure 116 mm[Hg] Lee Billow DO Work Phone: [facility] 08-12-2023 11:36-0400 Body mass index (BMI) [Ratio] 31.91 kg/m2 Leo Monroe MD Work Phone: [facility] 08-12-2023 11:36-0400 Body weight 71.67 kg Leo Monroe MD Work Phone: [facility] 08-12-2023 11:36-0400 Diastolic blood pressure 72 mm[Hg] Leo Monroe MD Work Phone: [facility] 08-12-2023 11:36-0400 Systolic blood pressure 118 mm[Hg] Leo Monroe MD Work Phone: [facility] 05-29-2023 11:06-0400 Body height 147.[address] Emily Sanders Work Phone: [facility] 05-29-2023 11:06-0400 Body mass index (BMI) [Ratio] 32.8 kg/m2 Dr. Emily Sanders Work Phone: [facility] 05-29-2023 11:06-0400 Body temperature 98.2 [degF] Dr. Emily Sanders Work Phone: [facility] 05-29-2023 11:06-0400 Body weight 71.[address] Emily Sanders Work Phone: [facility] 05-29-2023 11:06-0400 Diastolic blood pressure 62 mm[Hg] Dr. Emily Sanders Work Phone: [facility] 05-29-2023 11:06-0400 Heart rate 80 /min Dr. Emily Sanders Work Phone: [facility] 05-29-2023 11:06-0400 Respiratory rate 17 /min Dr. Emily Sanders Work Phone: [facility] 05-29-2023 11:06-0400 SaO2% (BldA) [Mass fraction] 97 % Dr. Emily Sanders Work Phone: [facility] 05-29-2023 11:06-0400 Systolic blood pressure 116 mm[Hg] Dr. Emily Sanders Work Phone: [facility] 05-19-2023 10:57-0400 Body height 149.9 cm Sherly Ng APRN.[employer] Work Phone: [facility] 05-19-2023 10:57-0400 Body weight 70.76 kg Sherly Ng APRN.[employer] Work Phone: [facility] 05-19-2023 10:57-0400 Diastolic blood pressure 81 mm[Hg] Sherly Ng APRN.[employer] Work Phone: [facility] 05-19-2023 10:57-0400 Heart rate 92 /min Sherly Ng APRN.[employer] Work Phone: [facility] 05-19-2023 10:57-0400 Systolic blood pressure 120 mm[Hg] Sherly Ng APRN.[employer] Work Phone: [facility] 04-28-2023 14:35-0400 Body mass index (BMI) [Ratio] 32.3 kg/m2 Dr. Emily Sanders Work Phone: [facility] 04-28-2023 14:35-0400 Body temperature 98.8 [degF] Dr. Emily Sanders Work Phone: [facility] 04-28-2023 14:35-0400 Body weight 70.[address] Emily Sanders Work Phone: [facility] 04-28-2023 14:35-0400 Diastolic blood pressure 85 mm[Hg] Dr. Emily Sanders Work Phone: [facility] 04-28-2023 14:35-0400 Heart rate 87 /min Dr. Emily Sanders Work Phone: [facility] 04-28-2023 14:35-0400 Respiratory rate 14 /min Dr. Emily Sanders Work Phone: [facility] 04-28-2023 14:35-0400 SaO2% (BldA) [Mass fraction] 99 % Dr. Emily Sanders Work Phone: [facility] 04-28-2023 14:35-0400 Systolic blood pressure 122 mm[Hg] Dr. Emily Sanders Work Phone: [facility] 02-06-2023 09:57-0500 Body height 147.[address] Emily Sanders Work Phone: [facility] 02-06-2023 09:57-0500 Body mass index (BMI) [Ratio] 31.4 kg/m2 Dr. Emily Sanders Work Phone: [facility] 02-06-2023 09:57-0500 Body temperature 97.7 [degF] Dr. Emily Sanders Work Phone: [facility] 02-06-2023 09:57-0500 Body weight 68.[address] Emily Sanders Work Phone: [facility] 02-06-2023 09:57-0500 Diastolic blood pressure 68 mm[Hg] Dr. Emily Sanders Work Phone: [facility] 02-06-2023 09:57-0500 Heart rate 98 /min Dr. Emily Sanders Work Phone: [facility] 02-06-2023 09:57-0500 Respiratory rate 16 /min Dr. Emily Sanders Work Phone: [facility] 02-06-2023 09:57-0500 SaO2% (BldA) [Mass fraction] 99 % Dr. Emily Sanders Work Phone: [facility] 02-06-2023 09:57-0500 Systolic blood pressure 118 mm[Hg] Dr. Emily Sanders Work Phone: [facility] 02-02-2023 01:35-0500 Diastolic blood pressure 80 mm[Hg] Dr. Emily Sanders Work Phone: [facility] 02-02-2023 01:35-0500 Heart rate 79 /min Dr. Emily Sanders Work Phone: [facility] 02-02-2023 01:35-0500 Respiratory rate 16 /min Dr. Emily Sanders Work Phone: [facility] 02-02-2023 01:35-0500 SaO2% (BldA) [Mass fraction] 97 % Dr. Emily Sanders Work Phone: [facility] 02-02-2023 01:35-0500 Systolic blood pressure 122 mm[Hg] Dr. Emily Sanders Work Phone: [facility] 02-01-2023 22:19-0500 Body height 147.[address] Emily Sanders Work Phone: [facility] 02-01-2023 22:19-0500 Body mass index (BMI) [Ratio] 31.4 kg/m2 Dr. Emily Sanders Work Phone: [facility] 02-01-2023 22:19-0500 Body temperature 98 [degF] Dr. Emily Sanders Work Phone: [facility] 02-01-2023 22:19-0500 Body weight 68.[address] Emily Sanders Work Phone: [facility] 12-17-2022 16:11-0500 Body height 147.[address] Emily Sanders Work Phone: [facility] 12-17-2022 16:11-0500 Body mass index (BMI) [Ratio] 29.2 kg/m2 Dr. Emily Sanders Work Phone: [facility] 12-17-2022 16:11-0500 Body temperature 100 [degF] Dr. Emily Sanders Work Phone: [facility] 12-17-2022 16:11-0500 Body weight 63.[address] Emily Sanders Work Phone: [facility] 12-17-2022 16:11-0500 Diastolic blood pressure 85 mm[Hg] Dr. Emily Sanders Work Phone: [facility] 12-17-2022 16:11-0500 Heart rate 92 /min Dr. Emily Sanders Work Phone: [facility] 12-17-2022 16:11-0500 Respiratory rate 16 /min Dr. Emily Sanders Work Phone: [facility] 12-17-2022 16:11-0500 SaO2% (BldA) [Mass fraction] 96 % Dr. Emily Sanders Work Phone: [facility] 12-17-2022 16:11-0500 Systolic blood pressure 130 mm[Hg] Dr. Emily Sanders Work Phone: [facility] 11-03-2022 15:49-0400 Body mass index (BMI) [Ratio] 29.5 kg/m2 Dr. Emily Sanders Work Phone: [facility] 11-03-2022 15:49-0400 Body weight 63.[address] Emily Sanders Work Phone: [facility] 11-03-2022 15:49-0400 Diastolic blood pressure 80 mm[Hg] Dr. Emily Sanders Work Phone: [facility] 11-03-2022 15:49-0400 Heart rate 65 /min Dr. Emily Sanders Work Phone: [facility] 11-03-2022 15:49-0400 Respiratory rate 18 /min Dr. Emily Sanders Work Phone: [facility] 11-03-2022 15:49-0400 SaO2% (BldA) [Mass fraction] 97 % Dr. Emily Sanders Work Phone: [facility] 11-03-2022 15:49-0400 Systolic blood pressure 119 mm[Hg] Dr. Emily Sanders Work Phone: [facility] 05-09-2022 12:57-0400 Body height 147.3 cm Sherly Ng APRN.[employer] Work Phone: [facility] 05-09-2022 12:57-0400 Body weight 67.59 kg Sherly Ng INCINERATOR OPERATOR.[employer] Work Phone: [facility] 05-09-2022 12:57-0400 Diastolic blood pressure 68 mm[Hg] Sherly Henryhrie INCINERATOR OPERATOR.[employer] Work Phone: [facility] 05-09-2022 12:57-0400 Systolic blood pressure 122 mm[Hg] Sherly Ng INCINERATOR OPERATOR.[employer] Work Phone: [facility] 01-17-2022 11:20-0500 Body weight 66.22 kg Sherly Ng INCINERATOR OPERATOR.[employer] Work Phone: [facility] 01-17-2022 11:20-0500 Diastolic blood pressure 70 mm[Hg] Sherly Henryhrie INCINERATOR OPERATOR.[employer] Work Phone: [facility] 01-17-2022 11:20-0500 Systolic blood pressure 110 mm[Hg] Sherly Ng INCINERATOR OPERATOR.[employer] Work Phone: [facility] 11-15-2021 10:42-0400 Body height 147.[address] Emily Sanders Work Phone: [facility] Work Phone: 11-15-2021 10:42-0400 Body mass index (BMI) [Ratio] 31 kg/m2 Dr. Emily Sanders Work Phone: [facility] Work Phone: 11-15-2021 10:42-0400 Body weight 67.[address] Emily Sanders Work Phone: [facility] Work Phone: 09-24-2021 10:15-0400 Body mass index (BMI) [Ratio] 30.7 kg/m2 Dr. Emily Sanders Work Phone: [facility] Work Phone: 09-24-2021 10:15-0400 Body temperature 97.6 [degF] Dr. Emily Sanders Work Phone: [facility] Work Phone: 09-24-2021 10:15-0400 Body weight 66.[address] Emily Sanders Work Phone: [facility] Work Phone: 09-24-2021 10:15-0400 Diastolic blood pressure 74 mm[Hg] Dr. Emily Sanders Work Phone: [facility] Work Phone: 09-24-2021 10:15-0400 Heart rate 75 /min Dr. Emily Sanders Work Phone: [facility] Work Phone: 09-24-2021 10:15-0400 Respiratory rate 16 /min Dr. Emily Sanders Work Phone: [facility] Work Phone: 09-24-2021 10:15-0400 SaO2% (BldA) [Mass fraction] 97 % Dr. Emily Sanders Work Phone: [facility] Work Phone: 09-24-2021 10:15-0400 Systolic blood pressure 116 mm[Hg] Dr. Emily Sanders Work Phone: [facility] Work Phone: 07-15-2021 11:02-0400 Body height 147.[address] Emily Sanders Work Phone: [facility] Work Phone: 07-15-2021 11:02-0400 Body weight 64.[address] Emily Sanders Work Phone: [facility] Work Phone: 07-15-2021 11:02-0400 Diastolic blood pressure 72 mm[Hg] Dr. Emily Sanders Work Phone: [facility] Work Phone: 07-15-2021 11:02-0400 Heart rate 64 /min Dr. Emily Sanders Work Phone: [facility] Work Phone: 07-15-2021 11:02-0400 Respiratory rate 16 /min Dr. Emily Sanders Work Phone: [facility] Work Phone: 07-15-2021 11:02-0400 Systolic blood pressure 116 mm[Hg] Dr. Emily Sanders Work Phone: [facility] Work Phone: 07-01-2021 13:37-0400 Body mass index (BMI) [Ratio] 30.5 kg/m2 Dr. Emily Sanders Work Phone: [facility] Work Phone: 07-01-2021 13:37-0400 Body temperature 98.4 [degF] Dr. Emily Sanders Work Phone: [facility] Work Phone: 07-01-2021 13:37-0400 Body weight 66.[address] Emily Sanders Work Phone: [facility] Work Phone: 07-01-2021 13:37-0400 Diastolic blood pressure 84 mm[Hg] Dr. Emily Sanders Work Phone: [facility] Work Phone: 07-01-2021 13:37-0400 Heart rate 71 /min Dr. Emily Sanders Work Phone: [facility] Work Phone: 07-01-2021 13:37-0400 Respiratory rate 14 /min Dr. Emily Sanders Work Phone: [facility] Work Phone: 07-01-2021 13:37-0400 SaO2% (BldA) [Mass fraction] 97 % Dr. Emily Sanders Work Phone: [facility] Work Phone: 07-01-2021 13:37-0400 Systolic blood pressure 124 mm[Hg] Dr. Emily Sanders Work Phone: [facility] Work Phone: 05-07-2021 14:23-0400 Body height 152.4 cm Leo Monroe MD Work Phone: [facility] 05-07-2021 14:23-0400 Body weight 65.32 kg Leo Monroe MD Work Phone: [facility] 05-07-2021 14:23-0400 Diastolic blood pressure 72 mm[Hg] Leo Monroe MD Work Phone: [facility] 05-07-2021 14:23-0400 Systolic blood pressure 112 mm[Hg] Leo Monroe MD Work Phone: [facility] 04-17-2021 09:49-0500 Body mass index (BMI) [Ratio] 30.2 kg/m2 Dr. Emily Sanders Work Phone: [facility] Work Phone: 04-17-2021 09:49-0500 Body temperature 98.4 [degF] Dr. Emily Sanders Work Phone: [facility] Work Phone: 04-17-2021 09:49-0500 Body weight 65.[address] Emily Sanders Work Phone: [facility] Work Phone: 04-17-2021 09:49-0500 Diastolic blood pressure 80 mm[Hg] Dr. Emily Sanders Work Phone: [facility] Work Phone: 04-17-2021 09:49-0500 Heart rate 51 /min Dr. Emily Sanders Work Phone: [facility] Work Phone: 04-17-2021 09:49-0500 Respiratory rate 15 /min Dr. Emily Sanders Work Phone: [facility] Work Phone: 04-17-2021 09:49-0500 SaO2% (BldA) [Mass fraction] 97 % Dr. Emily Sanders Work Phone: [facility] Work Phone: 04-17-2021 09:49-0500 Systolic blood pressure 131 mm[Hg] Dr. Emily Sanders Work Phone: [facility] Work Phone: 01-19-2021 18:57-0500 Diastolic blood pressure 72 mm[Hg] No Pcp Required [facility] 01-19-2021 18:57-0500 Heart rate 62 /min No Pcp Required [facility] 01-19-2021 18:57-0500 Respiratory rate 16 /min No Pcp Required [facility] 01-19-2021 18:57-0500 SaO2% (BldA) [Mass fraction] 98 % No Pcp Required [facility] 01-19-2021 18:57-0500 Systolic blood pressure 109 mm[Hg] No Pcp Required [facility] 01-19-2021 14:56-0500 Body height 147.3 cm No Pcp Required [facility] 01-19-2021 14:56-0500 Body temperature 98.78 [degF] No Pcp Required [facility] 01-19-2021 14:56-0500 Body weight 62.7 kg No Pcp Required [facility] 08-29-2020 09:37-0400 Body mass index (BMI) [Ratio] 28.8 kg/m2 Dr. Emily Sanders Work Phone: [facility] Work Phone: 03-26-2020 10:55-0500 Body mass index (BMI) [Ratio] 27.6 kg/m2 Dr. Emily Sanders Work Phone: [facility] 03-26-2020 10:55-0500 Body temperature 98.9 [degF] Dr. Emily Sanders Work Phone: [facility] 03-26-2020 10:55-0500 Diastolic blood pressure 69 mm[Hg] Dr. Emily Sanders Work Phone: [facility] 03-26-2020 10:55-0500 Heart rate 61 /min Dr. Emily Sanders Work Phone: [facility] 03-26-2020 10:55-0500 Respiratory rate 16 /min Dr. Emily Sanders Work Phone: [facility] 03-26-2020 10:55-0500 SaO2% (BldA) [Mass fraction] 95 % Dr. Emily Sanders Work Phone: [facility] 03-26-2020 10:55-0500 Systolic blood pressure 102 mm[Hg] Dr. Emily Sanders Work Phone: [facility] 03-26-2020 09:55-0500 Body mass index (BMI) [Ratio] 27.6 kg/m2 Dr. Emily Sanders Work Phone: [facility] Work Phone: 03-26-2020 09:55-0500 Body temperature 98.9 [degF] Dr. Emily Sanders Work Phone: [facility] Work Phone: 03-26-2020 09:55-0500 Body weight 59.[address] Emily Sanders Work Phone: [facility] Work Phone: 03-26-2020 09:55-0500 Diastolic blood pressure 69 mm[Hg] Dr. Emily Sanders Work Phone: [facility] Work Phone: 03-26-2020 09:55-0500 Heart rate 61 /min Dr. Emily Sanders Work Phone: [facility] Work Phone: 03-26-2020 09:55-0500 Respiratory rate 16 /min Dr. Emily Sanders Work Phone: [facility] Work Phone: 03-26-2020 09:55-0500 SaO2% (BldA) [Mass fraction] 95 % Dr. Emily Sanders Work Phone: [facility] Work Phone: 03-26-2020 09:55-0500 Systolic blood pressure 102 mm[Hg] Dr. Emily Sanders Work Phone: [facility] Work Phone: Encounters Encounter Date Encounter Type Care Provider Facility Start: 12-20-2024 ambulatory Emily Sanders Facili ty:[facility] Start: 12-16-2024 End: 12-16-2024 ambulatory Emily Sanders Facility:[facility] Start: 11-03-2024 ambulatory LEO MONROE Facility:[facility] Start: 10-31-2024 Non-patient / Non-visit Miguel Acarlee Cano nd DO -[facility] Start: 10-31-2024 End: 10-31-2024 Admission to same day surgery center Miguel A Mcgarry -Endoscopy Work Phone: Start: 10-31-2024 End: 10-31-[address] Emily Sanders MD Work Phone: -Endoscopy Start: 10-25-2024 Non-patient / Non-visit Dr. Ajit Magana MD -[facility] Start: 10-25-2024 End: 10-25-[address] Emily Sanders MD Work Phone: -Cardiovascular Services Start: 10-25-2024 End: 10-25-2024 Patient encounter procedure Gibran JOHNSON -Cardiovascular Services Work Phone: Start: 10-25-2024 End: 10-25-2024 ambulatory Emily Sanders Facility:[facility] Start: 10-21-2024 End: 10-21-2024 Patient encounter procedure GLADYS Shetty -[facility] Work Phone: Start: 10-21-2024 End: 10-21-[address] Emily Sanders MD Work Phone: -[facility] Start: 10-18-2024 End: 10-18-[address] Gene Braun MD -[facility] Work Phone: Start: 10-18-2024 End: 10-18-[address] Emily Sanders MD Work Phone: -[facility] Start: 10-12-2024 End: 10-12-[address] Gulshan Jules MD -[facility] Work Phone: Start: 10-12-2024 End: 10-12-[address] Emily Sanders MD Work Phone: -[facility] Start: 10-11-2024 End: 10-11-2024 Patient encounter procedure Vonda WINTER -[facility] Work Phone: Start: 10-11-2024 End: 10-11-[address] Emily Sanders MD Work Phone: -[facility] Start: 10-11-[address] Gene Braun MD -[facility] Start: 10-11-2024 ambulatory Emily Andrew ty:[facility] Start: 09-30-2024 End: 09-30-2024 Patient encounter procedure Sherly Ng INCINERATOR OPERATOR.[employer] Work Phone: OB/Gynecology Comment on above: Acute vaginitis (Jasmyne erica Dx); Vulvar itching Start: 09-30-2024 End: 09-30-2024 ambulatory SHERLY NG Facility:[facility] Start: 09-29-2024 Registered Referred Gibran Nunes -Cardiovascular Services Work Phone: Start: 09-29-2024 ambulatory Emily Andrew ty:[facility] Start: 09-29-2024 Non-patient / Non-visit Dr. Saba MCGEE -[facility] Work Phone: Start: 09-23-2024 End: 09-23-[address] Emily Sanders MD Work Phone: -Laboratory Start: 09-23-2024 End: 09-23-2024 Patient encounter procedure Gibran Rob PA -Laboratory Work Phone: Start: 09-23-2024 End: 09-23-2024 Patient encounter procedure Gibran JOHNSON -[facility] Work Phone: Start: 09-23-2024 End: 09-23-[address] Emily Sanders MD Work Phone: -[facility] Start: 09-23-2024 End: 09-23-2024 ambulatory Emily Sanders Facility:[facility] Start: 09-10-2024 End: 09-10-2024 Emergency department patient visit Dr. Emily Sanders MD Work Phone: -Emergency Department Work Phone: Start: 09-09-2024 End: 09-09-2024 Patient encounter procedure Manolo JOHNSON -[facility] Work Phone: Start: 09-09-2024 End: 09-09-[address] Emily Sanders MD Work Phone: -[facility] Start: 09-03-2024 End: 09-03-2024 Emergency department patient visit Dr. Emily Sanders MD Work Phone: -Emergency Department Work Phone: Start: 07-28-2024 End: 07-28-[address] Gene Braun MD -[facility] Work Phone: Start: 07-28-2024 End: 07-28-2024 ambulatory Emily Sanders Facility:[facility] Start: 07-28-[address] Gene Braun MD -[facility] Start: 07-19-2024 End: 07-19-[address] Gulshan Jules MD -[facility] Work Phone: Start: 07-19-2024 End: 07-19-[address] Emily Sanders MD Work Phone: [facility] Work Phone: Start: 07-15-2024 End: 07-15-2024 ambulatory EMILY SANDERS MD Facility:[facility] Start: 07-15-2024 End: 07-15-2024 [facility] Start: 07-14-2024 End: 07-14-[address] Emily Sanders MD Work Phone: [facility] Work Phone: Start: 07-14-2024 End: 07-14-2024 Patient encounter procedure Vonda WINTER -[facility] Start: 07-14-2024 End: 07-14-2024 ambulatory [facility] Facility:[facility] Start: 06-30-2024 End: 06-30-[address] Emily Sanders MD Work Phone: [facility] Work Phone: Start: 06-30-2024 End: 06-30-2024 Patient encounter procedure Vonda Mueller NP-C -[facility] Start: 06-29-2024 End: 06-29-2024 Patient encounter procedure Vonda WINTER -[facility] Work Phone: Start: 06-29-2024 End: 06-30-[address] Emily Sanders MD Work Phone: [facility] Work Phone: Start: 06-27-2024 End: 06-27-[address] Emily Sanders MD Work Phone: [facility] Work Phone: Start: 06-27-2024 End: 06-27-[address] Jorgito Boogie MD -Ultrasound [facility] Work Phone: Start: 06-27-2024 End: 06-27-2024 ambulatory [facility] Facility:[facility] Start: 06-20-2024 End: 06-20-2024 Patient encounter procedure Adi Galo ME -[facility] Work Phone: Start: 06-20-2024 End: 06-20-2024 ambulatory Emily Sanders Facility:[facility] Start: 06-04-2024 End: 06-06-2024 Refill Lee Katz DO Work Phone: Obstetrics/Gynecology Comment on above: Refill Request Start: 05-20-2024 End: 05-20-2024 ambulatory SHERLY NG Facility:[facility] Start: 05-20-2024 End: 05-20-2024 Patient encounter procedure Sherly Ng APRN.[employer] Work Phone: OB/Gynecology Comment on above: Encounter for gyneco logical examination (general) (routine) without abnormal findings (Primary Dx); Superficial dyspareunia; 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 Emily Sanders MD Work Phone: [facility] Work Phone: Start: 04-27-2024 End: 04-27-[address] Emily Sanders MD -Laboratory, Specimen Work Phone: Start: 04-27-2024 End: 04-27-[address] Emily Sanders MD -[facility] Work Phone: Start: 04-27-2024 End: 04-27-20[facility] Start: 04-27-2024 End: 04-27-2024 ambulatory [facility] Facility:[facility] Start: 04-25-2024 End: 04-25-[address] Gene Braun MD -[facility] Work Phone: Start: 04-25-2024 End: 04-25-2024 ambulatory Emily Sanders Facility:[facility] Start: 04-22-2024 End: 04-22-[address] Emily Sanders MD Work Phone: [facility] Work Phone: Start: 04-22-2024 End: 04-22-[address] Emily Sanders MD -Sleep Lab Work Phone: Start: 04-22-2024 End: 04-22-2024 ambulatory [facility] Facility:[facility] Start: 04-18-[address] Gene Braun MD -[facility] Start: 04-04-2024 End: 04-04-[address] Emily Sanders MD Work Phone: [facility] Work Phone: Start: 04-04-2024 End: 04-04-[address] Emily Sanders MD -Laboratory, [place] Start: 04-04-2024 End: 04-04-[address] Emily Sanders MD -[facility] Work Phone: Start: 04-04-2024 End: 04-04-2024 ambulatory [facility] Facility:[facility] Start: 04-04-2024 End: 04-04-2024 ambulatory [facility] Facility:[facility] Start: 04-03-2024 End: 04-03-2024 Emergency department patient visit Dr. Emily Sanders MD Work Phone: -Emergency Department Work Phone: Start: 03-31-2024 End: 03-31-2024 Emergency department patient visit Dr. Alli Ding MD -Emergency Department Work Phone: Start: 03-29-2024 End: 03-29-2024 Patient encounter procedure Valentine Roth APRN-[facility] Work Phone: [facility] Comment on above: Influenza A (Primary Dx); Acute cough Start: 03-29-2024 End: 03-29-2024 ambulatory [facility] Start: 03-23-2024 End: 03-23-[address] Jorgito Boogie MD -Laboratory, [place] Work Phone: Start: 03-23-2024 End: 02-12-2025 ambulatory [facility] Start: 02-11-2024 End: 02-11-2024 ambulatory LEO MONROE Facility:[facility] Start: 02-11-2024 End: 02-11-2024 Patient encounter procedure Leo Monroe MD Work Phone: OB/Gynecology Comment on above: Fatty liver (Primary Dx); Encounter for screening mammogram for malignant neoplasm of breast; Hormone replacement therapy (HRT) Start: 02-11-2024 End: 02-11-2024 ambulatory [facility] Facility:[facility] Start: 02-08-2024 End: 02-08-[address] Jorgito Boogie MD -Laboratory, [place] Work Phone: Start: 02-08-2024 End: 02-08-2024 [facility] Facility:[facility] Start: 01-18-2024 ambulatory [facility] Facili ty:[facility] Start: 01-18-2024 Non-patient / Non-visit Dr. Saba MCGEE -[facility] Start: 01-18-2024 End: 01-18-[address] Ghada Magana MD -Cat Scan, [facility] Work Phone: Start: 01-18-2024 End: 01-18-2024 [facility] Facility:[facility] Start: 01-15-2024 End: 01-15-2024 ambulatory LEE KATZ Facility:[facility] Start: 01-15-2024 End: 01-15-2024 Patient encounter procedure Lee Mikie DO Work Phone: Obstetrics/Gynecology Comment on above: Abnormal uterine ble eding (AUB) (Primary Dx) Start: 01-14-2024 End: 01-14-[address] Emily Sanders MD -Laboratory, [place] Start: 01-14-2024 End: 01-14-2024 ambulatory [facility] Facility:[facility] Start: 01-12-2024 End: 01-12-[address] Jorgito Boogie MD -Ultrasound, [facility] Work Phone: Start: 01-12-2024 End: 01-12-2024 ambulatory Rocioedenjaron Sanders Facility:[facility] Start: 12-31-2023 End: 12-31-[address] Emily Sanders MD -[facility] Work Phone: Start: 12-31-2023 End: 12-31-2023 ambulatory Emily Sanders Facility:[facility] Start: 12-17-2023 End: 12-17-2023 ambulatory YENNIFER TOMAS Facility:[facility] Start: 12-17-2023 End: 12-17-2023 Patient encounter procedure Yennifer Tomas INCINERATOR OPERATOR.[employer]ER Work Phone: Gynecology Comment on above: Vaginal discharge (P rimary Dx) Start: 12-07-2023 End: 12-09-2023 ambulatory Lee Katz DO Work Phone: Obstetrics/Gynecology Start: 12-07-2023 End: 12-09-2023 Patient encounter procedure Lee Katz DO Work Phone: Obstetrics/Gynecology Comment on above: Unable to make the 1 :15 appointment today Unable to make 1:15 appointment today. Start: 12-06-2023 End: 12-06-2023 Telephone encounter Lee Beltre MD Work Phone: Gynecology Start: 11-27-2023 End: 12-01-2023 ambulatory Yennifer Tomas INCINERATOR OPERATOR.[employer]ER Work Phone: Gynecology Comment on above: Stitches sticking ou t of incision Start: 11-24-2023 End: 11-24-2023 Telemedicine consultation with patient Yennifer Tomas APRN.WOOD LATHER Work Phone: Gynecology Start: 11-24-2023 End: 11-24-2023 ambulatory Yennifer Brunoofviolette INCINERATOR OPERATOR.[employer] Work Phone: Gynecology Comment on above: Postop check (Primar y Dx); Premature ovarian failure Start: 11-19-2023 End: 11-20-2023 ambulatory Lee Katz DO Work Phone: Obstetrics/Gynecology Comment on above: Question regarding S URGICAL PATHOLOGY Start: 11-13-2023 End: 11-13-2023 Telephone encounter Lee Katz DO Work Phone: [facility] Comment on above: Surgical Followup Start: 11-12-2023 End: 11-12-2023 Telephone encounter Lee Katz DO Work Phone: Gynecology Comment on above: Post Op Follow Up Start: 11-11-2023 End: 11-11-2023 Telephone encounter Lee Katz DO Work Phone: [facility] Comment on above: Orders Start: 11-06-2023 End: 11-06-2023 Admission to establishment Pac Masood 1 Work Phone: Pre Anesthesia Start: 11-06-2023 End: 11-06-2023 Preprocedural examination done Pac [place] 1 Work Phone: [facility] Work Phone: Start: 11-06-2023 End: 11-09-2023 Telephone encounter Adeline Jama APRN.CNP Work Phone: Pre Anesthesia Comment on above: Pre-operative examin ation (Primary Dx); Leukopenia, unspecified type; Thrombocytopenia (HCC); Fatty liver; Mitral valve prolapse; Basal cell carcinoma (BCC), unspecified site; Mixed anxiety depressive disorder; Obesity, Class I, BMI 30-34.9 Start: 2023 End: 2023 ambulatory Nurse Director Of Special Events Work Phone: Gynecology Comment on above: Educational circumst ances (Primary Dx) Start: 2023 End: 2023 Telemedicine consultation with patient Nurse Director Of Special Events Work Phone: Gynecology Start: 10-29-2023 End: 11-17-2023 Telephone encounter Lee Katz DO Work Phone: Gynecology Comment on above: Patient Question Start: 10-28-2023 End: 10-28-2023 Patient encounter status Lee Katz DO Work Phone: [facility] Work Phone: Start: 10-28-2023 End: 10-28-2023 Telephone encounter Lee Katz DO Work Phone: Obstetrics/Gynecology Comment on above: Patient Question Start: 10-26-2023 End: 10-26-2023 Patient encounter procedure Lee Katz DO Work Phone: Obstetrics/Gynecology Comment on above: Pelvic pain in femal e (Primary Dx); Intramural and subserous leiomyoma of uterus; Preop examination Start: 10-26-2023 End: 10-26-2023 Preprocedural examination done Lee Katz DO Work Phone: [facility] Start: 08-17-2023 Telephone encounter Lee clancy DO Work Phone: Obstetrics/Gynecology Comment on above: Patient Question Start: 08-14-2023 Telephone encounter Lee clancy DO Work Phone: Obstetrics/Gynecology Comment on above: Appointment Start: 08-12-2023 End: 08-12-2023 Patient encounter procedure Leo Monroe MD Work Phone: OB/Gynecology Comment on above: Intramural and subse bess leiomyoma of uterus (Primary Dx); Pelvic pressure in female; Urinary frequency; Premature ovarian failure Start: 06-30-2023 Telephone encounter Sherly valencia APRN.CNP Work Phone: OB/Gynecology Comment on above: Results; Appointment Start: 06-26-2023 End: 06-26-2023 Subsequent hospital visit by physician [facility] 1 Work Phone: Radiology Comment on above: Breakthrough bleedin g on control pills [N92.1] Start: 05-29-2023 End: 05-29-[address] Emily Sanders Work Phone: [facility] Work Phone: Start: 05-29-[address] Manuela Sanders Work Phone: [facility] Start: 05-29-2023 End: 05-29-2023 Encounter for general adult medical examination without abnormal findings Dr. Emily Sanders Work Phone: [facility] Start: 05-29-2023 End: 05-29-[address] Emily Sanders Work Phone: [facility] Work Phone: Start: 05-19-2023 End: 05-19-2023 Patient encounter procedure Sherly Ng APRN.WOOD LATHER Work Phone: OB/Gynecology Comment on above: Encounter for gyneco logical examination (general) (routine) without abnormal findings (Primary Dx); Premature ovarian failure; Breakthrough bleeding on control pills; Surveillance for control, oral contraceptives; Uterine leiomyoma, unspecified location; Obesity, Class I, BMI 30-34.9 Start: 05-19-2023 End: 05-19-2023 Patient encounter status Sherly Ng APRN.WOOD LATHER Work Phone: [facility] Start: 04-29-[address] Neena Sanders Work Phone: [facility] Oncology Start: 04-28-2023 End: 04-28-[address] Emily Sanders Work Phone: [facility] Work Phone: Start: 02-10-2023 End: 02-10-[address] Emily Sanders Work Phone: [facility] Work Phone: Start: 02-10-2023 End: 02-10-[address] Emily Sanders Work Phone: [facility]-Laboratory, [facility] Start: 02-06-2023 End: 02-06-[address] Emily Sanders Work Phone: [facility] Work Phone: Start: 02-01-2023 End: 02-02-2023 Emergency department patient visit Dr. Emily Sanders Work Phone: [facility] Work Phone: Start: 12-17-2022 End: 12-17-[address] Emily Sanders Work Phone: [facility] Work Phone: Start: 12-17-2022 End: 12-17-[address] Emily Sanders Work Phone: [facility] Work Phone: Start: 11-03-2022 End: 11-03-[address] Emily Sanders Work Phone: [facility] Work Phone: Start: 10-15-2022 End: 10-15-2022 Patient encounter procedure Negrito Forresterpelon MCCARTYWOOD LATHER Work Phone: Telemedicine Comment on above: APPOINTMENT CANCELLE D (Primary Dx) Start: 10-15-2022 End: 10-15-2022 Telemedicine consultation with patient Negrito Felix APRN.WOOD LATHER Work Phone: [facility] Start: 05-09-2022 End: 05-09-2022 Patient encounter procedure Sherly Ng APRN.WOOD LATHER Work Phone: OB/Gynecology Comment on above: Encounter for gyneco logical examination (general) (routine) without abnormal findings (Primary Dx); Premature ovarian failure; Breakthrough bleeding on control pills Start: 05-09-2022 End: 05-09-2022 Patient encounter status Sherly Ng APRN.WOOD LATHER Work Phone: OB/Gynecology Start: 01-17-2022 End: 01-17-2022 Patient encounter procedure Sherly Ng APRN.WOOD LATHER Work Phone: OB/Gynecology Comment on above: Friable cervix (Prim alec Dx); Breakthrough bleeding on OCPs; Vagina itching Start: 12-13-2021 End: 12-13-[address] Emily Sanders Work Phone: [facility] Work Phone: Start: 12-13-2021 End: 12-13-[address] Emily Sanders Work Phone: [facility] Start: 11-15-2021 End: 11-15-[address] Emily Sanders Work Phone: [facility] Start: 10-18-2021 End: 10-18-2021 Subsequent hospital visit by physician [employer] [employer] [facility] (I-Stat/1.5t) Work Phone: Radiology Start: 09-24-2021 End: 09-24-[address] Emily Sanders Work Phone: [facility] Start: 08-22-2021 End: 08-22-[address] Emily Sanders Work Phone: [facility]Physical Therapy Start: 07-15-2021 End: 07-15-[address] Emily Sanders Work Phone: [facility] Start: 07-12-[address] Neena Sanders Work Phone: [facility] Start: 07-10-2021 End: 07-10-[address] Emily Sanders Work Phone: [facility] Start: 07-01-2021 End: 07-01-[address] Emily Sanders Work Phone: [facility] Start: 05-07-2021 End: 05-07-2021 [...] Registered Recurring Dr. Neena Sanders Work Phone: [facility] On[facility] Start: 04-17-2021 End: 04-17-[address] Emily Sanders Work Phone: [facility] Start: 01-19-2021 End: 01-19-2021 Emergency department patient visit James Camacho [facility] Emergency 08 Start: 12-04-[address] Manuela Sanders Work Phone: [facility] Procedures Date Procedure Procedure Detail Performing Clinician Start: 10-11-[address] Neena Sanders MD Work Phone: Start: 10-11-[address] Emily Sanders MD Work Phone: Comment on above: Test Ordered: [id number] Flow panel: Leukemi a/LymphomaFlow Interpretation Comment -Y Reference Range: .No significant immunophenotypic abnormality detected.Flow Comment Comment -Y Reference Range: .Previous phenotyping results from 04/18/24 were reviewed and demonstratesimilar findings.Clinical Information Comment -Y Reference Range: .No recent CBC is available for review.Specimen Type Comment -Y Reference Range: .Peripheral bloodAssessment of Leukocytes Comment -Y Reference Range: .No monoclonal B cell population is detected.kappa:lambda ratio 1.6There is no loss of, or aberrant expression of, the oconnor T cell antigens tosuggest a neoplastic T cell process.CD4:CD8 ratio 1.2No circulating blasts are detected.There is no immunophenotypic evidence of abnormal myeloid maturation.Analysis of the lymphocyte population shows: B cells 8%, T cells 78%, NKcells 14%Viability Comment -Y Reference Range: .82%Analysis and Gating Strategy Comment -Y Reference Range: .8 color analysis with CD45/SSC gating Technical-Analysis performed at [facility], [employer], [address], [place] [address], Director: Moiar Ramirez, Formerly [facility], Phenotype Chart Comment -Y Reference Range: .CD2 Normal CD3 NormalCD4 Normal CD5 NormalCD7 Normal CD8 CkrwzoKR09 Normal CD11b ZxaokuPK43 Normal CD14 YprmtrUK07 Normal CD19 YbaglgRM59 Normal CD33 ZgoyywPX57 Normal CD38 SgfdqrXC32 Normal CD56 XantxmFX55 Normal CD64 TibryhCL555 Normal HLA-DR NormalKAPPA Normal LAMBDA NormalResulting Path Name Comment -Y Reference Range: .GENE MIRANDA M.D.Comment: Comment TG Reference Range: .Each antibody in this assay was utilized to assess forpotential abnormalities of studied cell populations or tocharacterize identified abnormalities.This test was developed and its performance characteristicsdetermined by [employer]. It has not been cleared or approvedby the U.S. Food and Drug Administration.The FDA has determined that such clearance or approval isnot necessary. This test is used for clinical purposes. Itshould not be regarded as investigational or for research.Performed at: -Y - [facility] [id number] [facility], [facility], [place] [id number] Director: Moira Ramirez [facility], Phone: [phone] at: [facility] [id number] [facility], [place] [id number] Director: Moira Ramirez [facility], Phone: [phone] at: [address] [id number] Director: Jorgito Cunningham PhD, Phone: [phone] Test Ordered: [id number] CLL FISH PanelSpecimen Type Comment: CAMERON Reference Range: .BLOODCells Counted Comment: CAMERON Reference Range: .200/PROBECells Analyzed Comment: CAMERON Reference Range: .200/PROBEFISH Result Comment: CAMERON Reference Range: .NORMAL CLL PANELInterpretation Comment: CAMERON Reference Range: . The CLL interphase fluorescence in situ hybridization(FISH) panel analysis was normal. There were no cells withCCND1-IGH fusion. No extra signals or deletions of HUNTER,chromosome 12, 13q, or TP53 were observed. SPECIFIC FISH RESULTS: CCND1/IGH: NORMAL . nuc maya 11q13(UPDH8e2),14q32(IGHx2)[200] HUNTER: NORMAL nuc maya 11q22.3(ATMx2)[200]. 12cen: NORMAL . nuc maya 12cen([id number])[200]. 13q: NORMAL . nuc maya 13q14.3(DLEUx2),13q34(UMWN8a3)[200]. TP53: NORMAL . nuc maya 17p13.1(TP53x2)[200] This analysis is limited to abnormalities detectableby the specific probes included in the study. The TargetGeneFISH results should be interpreted within the context of afull cytogenetic analysis and hematologic evaluation. TheDNA probe vendor for this study was [employer] ([employer]). REFERENCES:. Cathy,(2013) Adv Exp Med Biol 792:193-214.PMID#[id number] . Jase et al.,(2011) Clin Lab Med31:649-658.PMID#[id number] This test was developed and its performacecharacteristics determined by [employer] (4th aspect). It has not been cleared orapproved by the U.S. Food and Drug Administration. Technical Component-Processing performed at [facility] [address], [place] [address], [facility] [id number]. Hot Press Operator, Moira Ramirez M.D., Ph.D. Technical analysis performed at [employer]. [address] [place] [address]. CLIA # [id number]. Hot Press Operator Dr. Anuja M.D., Ph.D. Technical Component-Partial chromosome analysisperformed at [place] [address], [employer] [facility] [address] [facility] ([place], [place]), [place] [address], [id number]. Hot Press Operator, Moira Ramirez M.D., Ph.D.Director Review: Comment: CAMERON Reference Range: .Meagan Casillas, PhD, [facility], Professional Component performed by,[id number], Laboratory [employer] [facility], [id number], [address] , [place] [address]. MedicalDirector, Moira Ramirez MD,PhDPerformed at: [facility] [id number] [facility] [place] [place], [place], [place] [id number] Director: Moira Ramirez Former[facility], Phone: [phone] at: [facility] [employer] [id number] Director: Jorgito Cunningham PhD, Phone: [phone] Start: 09-10-2024 Urnls dip stick/tablet reagent auto microscopy Dr. Emily Sanders MD Work Phone: Start: 09-10-[address] Neena Sanders MD Work Phone: Start: 09-03-2024 X-ray of foot, three or more views Dr. Manuela Sanders MD Work Phone: Start: 07-14-2024 Total iron binding capacity measurement Dr. Emily Sanders MD Work Phone: Start: 06-30-[address] Emily Sanders MD Work Phone: Comment on above: The atypical pANCA pattern has been obse rved in asignificant percentage of patients with ulcerative colitis,primary sclerosing cholangitis and autoimmune hepatitis. Start: 06-30-2024 Hepatitis A virus antibody, total measurement Dr. Emily Sanders MD Work Phone: Comment on above: Comment: The HAV total antibody assay de tects both IgG andIgM but does not differentiate between them. A negativeresult suggests susceptibility to infection. A positiveresult could be due to vaccination, previously resolvedinfection or active infection. Testing for HAV IgM shouldbe performed if active HAV infection is suspected. Labcorpoffers profiles that will automatically reflex positive HAVtotal antibody results to IgM (e.g., panel #[id number] HAVAntibody w/ Rfx).Performed at: [address] [id number] Director: Jorgito Cunningham PhD, Phone: [phone] Start: 06-30-2024 Hepatitis C antibody measurement Dr. Kaleb Sanders MD Work Phone: Comment on above: Reactive: Presumptive evidence of antibo dies to HCV. Follow CDC recommendations for supplemental testing.Non-Reactive: Antibodies to HCV were not detected; does not exclude the possibility of exposure to HCVReactive Results are presumptive evidence of antibodies to HCV. Follow CDC recommendations for supplemental testing.Order confirmation testing: HCV Quant by PCR testing - HCVPCR #[id number] Non Reactive: < 0.8 Equivocal: >/= 0.8 to < 1.0 Reactive: >/= 1.0The CDC requires that a reactive/equivocal HCV antibody result be sent out for confirmation. HCV Quant by PCR testing. Start: 06-30-[address] Emily Sanders MD Work Phone: Comment on above: Test Ordered: [id number] Enhanced Liver Fibr osis (ELF)ELF(TM) Score 9.04 BN Reference Range: <9.80ELF(TM) Score Interpretation:Risk cut-offs to assess the likelihood of progressionto cirrhosis and liver-related clinical events within3.9 years following baseline ELF score (IQR: 14.0-22.4months)*: Lower risk < 9.80 Mid risk 9.80 - 11.29 Higher risk >11.29Note: The ELF(TM) Score is a unitless numerical value.*Howard SA, Truman MORENO, Ana M T, et al. Selonsertibfor patients with bridging fibrosis or compensatedcirrhosis due to COELHO: Results from randomized phaseIII STELLAR trials. J Hepatol. 2020 Aug;73(1):26-39.Performed at: [address] [id number] Director: Montserrat Gibbons MD, Phone: [phone] at: [facility] [address] [id number] Director: Jorgito Cunningham PhD, Phone: [phone] Start: 06-30-2024 Total iron binding capacity measurement Dr. Emily Sanders MD Work Phone: Start: 06-27-2024 Ultrasound elastography of liver Dr. Kaleb Sanders MD Work Phone: Start: 04-27-2024 Urnls dip stick/tablet reagent auto microscopy Dr. Emily Sanders MD Work Phone: Start: 04-18-[address] Neena Sanders MD Work Phone: Start: 04-03-2024 X-ray of chest, PA and lateral views Dr. Emily Sanders MD Work Phone: Start: 04-03-[address] Neena Sanders MD Work Phone: Start: 04-03-2024 Measurement of renal function Dr. Remy Sanders MD Work Phone: Comment on above: GFR Calc Start: 03-31-2024 X-ray of chest, PA and lateral views Dr. Emily Sanders MD Work Phone: Start: 03-29-2024 POCT SARS-COV-2/FLU/RSV PCR SYMPTOMATIC Valentine Roth INCINERATOR OPERATOR-[facility] Work Phone: Start: 02-11-2024 Dual energy X-ray absorptiometry Dr. Kaleb Sanders MD Work Phone: Start: 01-18-2024 Cardiac computed tomography for calcium scoring Dr. Emily Sanders MD Work Phone: Start: 01-12-[address] Emily Sanders MD Work Phone: Start: 08-06-[address] Neena Sanders MD Work Phone: Start: 08-06-2023 Measurement of renal function Dr. Remy Sanders MD Work Phone: Comment on above: GFR Calc Start: 04-29-[address] Emily Sanders Work Phone: Start: 04-29-2023 Urnls dip stick/tablet reagent auto microscopy Dr. Emily Sanders MD Work Phone: Start: 04-28-[address] Emily Sanders MD Work Phone: Start: 04-28-2023 Total iron binding capacity measurement Dr. Emily Sanders MD Work Phone: Start: 02-10-[address] Emily Sanders Work Phone: Start: 02-02-2023 Computed tomography of abdomen and pelvis with intravenous contrast Dr. Emily Sanders Work Phone: Start: 02-01-[address] Emily Sanders Work Phone: Start: 12-17-[address] Emily Sanders Work Phone: Start: 12-13-2021 MRI of cervical spine Dr. Emily Sanders Work Phone: Start: 10-18-2021 Mri spinal canal cervical w/o contrast matrl [facility] Provider Start: 07-01-2021 X-ray of cervical spine Dr. Emily Sanders Work Phone: Start: 05-07-2021 Microscopic observation [Identifier] in Cervix by Cyto stain Valentine HARRIS Work Phone: H/O: hysterectomy S/P hysterectomy Dr. Eduardo Sanders MD Work Phone: Comment on above: 11/10/2023 Plan of Treatment Date Care Activity Detail Author Start: 2034 Zoster Vaccines (1 of 2) Zoste r Vaccines (1 of 2) [facility] Start: 09-03-2034 Urine microalbumin profile DTa P,Tdap,Td Vaccine (4 - Td or Tdap) [facility] Start: 08-16-2029 DTaP/Tdap/Td Vaccine s (3 - Td or Tdap) DTaP/Tdap/Td Vaccines (3 - Td or Tdap) [facility] Start: 08-16-2029 Urine microalbumin profile [facility] Start: 05-07-2026 HPV TESTING HPV TESTING [facility] Start: 05-07-2026 PAP TESTING PAP TESTING [facility] Start: 05-07-2026 Screening for malign ant neoplasm of cervix [facility] Start: 05-23-2025 End: 05-23-2025 Patient encounter procedure 05/23/2025 10:30 AM EDT Office Visit OB/Gynecology [address] [place] [address] Sherly Ng APRN.WOOD LATHER [address] [place] [address] ANNUAL OB/Gynecology Comment on above: ANNUAL Start: 12-01-2024 End: 12-01-2024 Patient encounter procedure 12/01/2024 10:30 AM EDT Office Visit OB/Gynecology [address] [place] [address] Sherly Ng APRN.WOOD LATHER [address] [place] [address] Vulvar itching / LS follow up OB/Gynecology Comment on above: Vulvar itching / LS follow up Start: 11-03-2024 End: 11-03-2024 Patient encounter procedure 11/03/2024 2:50 PM EDT Appointment Mammogram [address] [place] [address] Encounter for screening mammogram for malignant neoplasm of breast [Z12.31] Mammogram Comment on above: Encounter for screen ing mammogram for malignant neoplasm of breast [Z12.31] Start: 10-31-2024 Flexible fiberoptic sigmoidoscopy DIAGNOSTIC SIGMOIDOSCOPY [facility] Start: 10-31-2024 Patient discharge [facility] Start: 10-11-2024 Procedure [facility] Start: 10-11-2024 [facility] Start: 10-10-2024 Influenza vaccination Influenza Vacc ine (#1) [facility] Start: 09-12-2024 HPV TESTING HPV TESTING [facility] Start: 09-12-2024 PAP TESTING PAP TESTING [facility] Start: 09-10-2024 End: 09-10-2024 [facility] Start: 09-03-2024 [facility] Start: 07-28-2024 [facility] Start: 06-30-2024 Procedure [facility] Start: 05-20-2024 End: 05-20-2024 Patient encounter procedure 05/20/2024 4:00 PM EDT Office Visit OB/Gynecology [address] [place] [address] Sherly Ng APRN.WO[facility] LATHER [address] [place] [address] annual exam OB/Gynecology Comment on above: annual exam Start: 05-07-2024 Screening for malign ant neoplasm of cervix [facility] Start: 04-27-2024 Patient referral [facility] Work Phone: Start: 04-22-2024 Polysomnography [facility] Start: 04-03-2024 End: 04-03-2024 [facility] Start: 03-31-2024 Respiratory secretio n precautions [facility] Start: 01-18-2024 Following clinical p athway protocol [facility] Start: 01-15-2024 End: 01-15-2024 Patient encounter procedure 01/15/2024 1:45 PM EST Office Visit Obstetrics/Gynecology [address] [place] [address] Lee Katz DO [address] [place], [place] [id number] 6 WEEK POST OP Obstetrics/Gynecolo gy Comment on above: 6 WEEK POST OP Start: 12-17-2023 End: 12-17-2023 Patient encounter procedure 12/17/2023 3:00 PM EST Office Visit Gynecology [address] [place] [address] Yennifer Tomas, INCINERATOR OPERATOR.WOOD LATHER [address] [place] [address] vaginal cuff check Gynecology Comment on above: vaginal cuff check Start: 11-24-2023 End: 11-24-2023 ambulatory 11/24/2023 4:00 PM EDT [facility] [address] [place] [address] Yennifer Tomas, CHRISTOPHER.WOOD LATHER [address] [place] [address] 2 WEEK POST OP Gynecology Comment on above: 2 WEEK POST OP Start: 11-10-2023 End: 11-10-2023 Admission to same day surgery center 11/10/2023 2:05 PM EDT - 11/10/2023 5:54 PM EDT Surgery Admitting [address] [place] [address] Lee Katz DO [address] [address] LAPAROSCOPIC HYSTERECTOMY TOTAL FOR UTERUS 250 G OR LESS W/REMOVAL TUBE(S) AND/OR OVARY(S) Admitting Comment on above: LAPAROSCOPIC HYSTERE CTOMY TOTAL FOR UTERUS 250 G OR LESS W/REMOVAL TUBE(S) AND/OR OVARY(S) Start: 11-10-2023 Subsequent hospital visit by physician 11/10/2023 2:05 PM EDT Hospital Encounter Admitting [address] [place] [address] Lee Katz DO [address] [address] Intramural and subserous leiomyoma of uterus [D25.1, [...] 1:40 PM EDT PAT Pre Anesthesia [address] [place] [address] 1, Pacc [address] [address] PACC Pre Anesthesia Comment on above: PACC Start: 2023 End: 2023 ambulatory 2023 2:00 PM EDT [facility] [address] [phone] Director Of Special Events, Nurse [address] [place], [place] [phone] RN TEACHING Gynecology Comment on above: RN TEACHING Start: 10-29-2023 End: 10-29-2023 ambulatory 10/29/2023 4:00 PM EDT Results Only [facility] [address] [place] [address] [facility] Start: 10-28-2023 End: 10-27-2024 CBC W Auto Differential panel - Blood COMPLETE BLOOD COUNT AND DIFFERENTIAL Lab Routine Preop testing Expected: 10/28/2023, Expires: 10/27/2024 [facility] Work Phone: Comment on above: Expected: 10/28/2023 , Expires: 10/27/2024 Start: 10-28-2023 End: 10-27-2024 TYPE AND SCREEN,30 DAY TYPE AND SCREEN,30 DAY Blood Bank Routine Preop testing Expected: 10/28/2023, Expires: 10/27/2024 [facility] Comment on above: Expected: 10/28/2023 , Expires: 10/27/2024 Start: 10-26-2023 End: 10-26-2023 Patient encounter procedure 10/26/2023 9:00 AM EDT Office Visit Obstetrics/Gynecology [address] [address] Lee Katz DO [address] [place] [address] Intramural and subserous leiomyoma of uterus [D25.1, D25.2] Obstetrics/Gynecolo gy Comment on above: Intramural and subse bess leiomyoma of uterus [D25.1, D25.2] Start: 10-11-2023 COVID-19 Vaccine () COVID-19 Vaccine () [facility] Start: 10-11-2023 Covid-19 Vaccine ( season) Covid-19 Vaccine ( season) [facility] Start: 10-11-2023 Covid-19 Vaccine () Covid-19 Vaccine () [facility] Start: 10-11-2023 Influenza vaccination C [facility] Start: 08-12-2023 End: 08-12-2023 Patient encounter procedure 08/12/2023 11:40 AM EDT Office Visit OB/Gynecology [address] [place] [address] Leo Barnett MD [address] [place] [address] consult hysterectomy OB/Gynecology Comment on above: consult hysterectomy Start: 05-19-2023 End: 05-18-2024 US Pelvis PELVIC US [facility] Anc Imaging Routine Breakthrough bleeding on control pills Uterine leiomyoma, unspecified location Expected: 05/19/2023, Expires: 05/18/2024 [facility] Work Phone: Comment on above: Expected: 05/19/2023 , Expires: 05/18/2024 Start: 02-09-2023 Behavioral Health Screening Behavioral Health Screening [facility] Start: 02-02-2023 End: 02-02-2023 [facility] Start: 02-01-2023 Bacteria identified in Urine by Culture Urine Culture [facility] Start: 12-17-2022 [facility] Start: 12-17-2022 Urine culture Urine Culture [facility] Start: 10-10-2022 Covid-19 Vaccine () Covid-19 Vaccine () [facility] Start: 10-10-2022 Influenza vaccination INFLUENZA (#1) [facility] Start: 02-09-2022 DEPRESSION ASSESSMENT DEPRESSION ASS ESSMENT [facility] Start: 10-10-2021 Influenza vaccination INFLUENZA (#1) [facility] Start: 07-01-2021 Patient referral [facility] Work Phone: Start: 05-26-2021 COVID-19 VACCINE (3 - Booster for Pfizer series) COVID-19 VACCINE (3 - Booster for Pfizer series) [facility] Start: 02-20-2021 COVID-19 VACCINE (3 - Booster for Pfizer series) COVID-19 VACCINE (3 - Booster for Pfizer series) [facility] Start: 02-20-2021 COVID-19 VACCINE (3 - Pfizer series) COVID-19 VACCINE (3 - Pfizer series) [facility] Start: 02-09-2021 DEPRESSION ASSESSMENT DEPRESSION ASS ESSMENT [facility] Start: 01-19-2021 End: 01-20-2022 [facility] Start: 10-10-2020 Influenza vaccination INFLUENZA (#1) [facility] Start: 11-03-2011 HPV Vaccine (1 - 3-d ose SCDM series) HPV Vaccine (1 - 3-dose SCDM series) [facility] Start: 2005 Screening for malign ant neoplasm of cervix HPV/Cotest [facility] Start: 11-03-2003 Hepatitis A Vaccines (1 of 2 - Risk 2-dose series) Hepatitis A Vaccines (1 of 2 - Risk 2-dose series) [facility] Start: 11-03-2003 Hepatitis B Vaccine (1 of 3 - 19+ 3-dose series) Hepatitis B Vaccine (1 of 3 - 19+ 3-dose series) [facility] Start: 11-03-2003 Hepatitis B Vaccines (1 of 3 - 19+ 3-dose series) Hepatitis B Vaccines (1 of 3 - 19+ 3-dose series) [facility] Start: 11-03-2003 Urine microalbumin profile DTAP,TDAP ,TD (1 - Tdap) [facility] Start: 2002 Anxiety Screening Anxiety Screening [facility] Start: 2002 Depression Screening Depression Scre [facility] Start: 2002 Diabetes mellitus screening Diabetes Screening [facility] Start: 2002 HEPATITIS C SCREENING HEPATITIS C [facility] Start: 2002 Hepatitis C screening Hepatitis C [facility] Start: 2002 HIV SCREENING HIV SCREENING [facility] Start: 2002 HIV screening HIV Screening [facility] Start: 1997 Varicella vaccination Varicell a Vaccines (1 of 2 - 13+ 2-dose series) [facility] Start: 1996 Adult depression scr eening assessment DEPRESSION SCREENING [facility] Start: 1989 COVID-19 VACCINE (1) COVID-19 VACCIN E (1) [facility] Start: 1985 MMR Vaccines (1 of 1 - Standard series) MMR Vaccines (1 of 1 - Standard series) [facility] Start: 1984 HEPATITIS B (1 of 3 - 3-dose series) HEPATITIS B (1 of 3 - 3-dose series) [facility] Start: 1984 HIV screening HIV Screening [facility] Start: 1984 Lipid panel Lipid Panel [facility] Start: 1984 Yearly Adult Physical Yearly Adult P hysical [facility] Alpha 1 antitrypsin [Mass/volume] in Serum or Plasma [facility] BACTERIAL VAGINOSIS AMPLIFICATION BACTERIAL VAGINOSIS AMPLIFICATION Lab Routine Friable cervix Breakthrough bleeding on OCPs Vagina itching 01/17/2022 12:48 PM EST [facility] Work Phone: BACTERIAL VAGINOSIS NAAT BACTERI AL VAGINOSIS NAAT Lab Routine Vaginal discharge 12/17/2023 3:25 PM EST [facility] BACTERIAL VAGINOSIS NAAT BACTERI AL VAGINOSIS NAAT Lab Routine Acute vaginitis 09/30/2024 2:15 PM EDT [facility] Basic metabolic 2008 panel with ionized calcium - Serum or Plasma [facility] Bilirubin.direct [Mass/volume] in Serum or Plasma [facility] C reactive protein [Mass/volume] in Serum or Plasma [facility] C reactive protein [Mass/volume] in Serum or Plasma [facility] JORDYN / TRICHOMONA S AMPLIFICATION JORDYN / TRICHOMONAS AMPLIFICATION Microbiology Routine Friable cervix Breakthrough bleeding on OCPs Vagina itching 01/17/2022 12:48 PM EST [facility] Work Phone: JORDYN/TRICHOMONAS NAAT JORDYN /TRICHOMONAS NAAT Lab Routine Vaginal discharge 12/17/2023 3:25 PM EST [facility] Work Phone: JORDYN/TRICHOMONAS NAAT JORDYN /TRICHOMONAS NAAT Lab Routine Acute vaginitis 09/30/2024 2:15 PM EDT [facility] Work Phone: Cardiac event recording [facility] CBC W Auto Different ial panel - Blood [facility] CBC W Auto Different ial panel - Blood [facility] CBC W Auto Different ial panel - Blood [facility] Comprehensive metabo lic 1999 panel - Serum or Plasma [facility] metabo lic 1999 panel - Serum or Plasma [facility] Cystourethroscopy CYSTOSCOPY Int ramural and subserous leiomyoma of uterus Pelvic pain in female Preop examination SP OR End: 03-12-2025 DBT Breast - bilateral screening GUSTAVO SCREENING W LOW Radiology Routine Encounter for screening mammogram for malignant neoplasm of breast 1 Occurrences starting 02/11/2024 until 03/12/2025 [facility] Work Phone: Comment on above: 1 Occurrences starti ng 02/11/2024 until 03/12/2025 End: 06-19-2025 DBT Breast - bilateral screening GUSTAVO SCREENING W LOW Radiology Routine Encounter for screening mammogram for breast cancer 1 Occurrences starting 05/20/2024 until 06/19/2025 [facility] Work Phone: Comment on above: 1 Occurrences starti ng 05/20/2024 until 06/19/2025 Ferritin [Mass/volum e] in Serum or Plasma [facility] H&P for surgery H&P FOR SURGERY Procedures Routine Intramural and subserous leiomyoma of uterus Pelvic pain in female Preop examination Ordered: 10/26/2023 [facility] Comment on above: Ordered: 10/26/2023 Hemoglobin A1c/Hemoglobin.total in Blood [facility] Hemoglobin A1c/Hemoglobin.total in Blood [facility] Hepatic function panel [facility] Hepatitis A virus Ab [Presence] in Serum [facility] Hepatitis B virus co re Ab [Presence] in Serum [facility] Hepatitis B virus uribe rface Ab [Presence] in Serum [facility] Hepatitis C antibody measurement [facility] Iron and Iron bindin g capacity panel - Serum or Plasma [facility] Lactate dehydrogenas e measurement [facility] Laps total hysterect 250 gm/< w/rmvl tube/ovary LAPAROSCOPIC HYSTERECTOMY TOTAL FOR UTERUS 250 G OR LESS W/REMOVAL TUBE(S) AND/OR OVARY(S) Intramural and subserous leiomyoma of uterus Pelvic pain in female Preop examination SP OR Lipid 1995 panel - S cleve or Plasma [facility] Lipid 1995 panel - S cleve or Plasma [facility] Magnesium measurement [facility] Mitochondria Ab [Pre sence] in Serum [facility] MR Biliary ducts and Pancreatic duct contrast [facility] MR Biliary ducts and Pancreatic duct WO contrast [facility] MR Cervical spine [facility] Work Phone: PAP FLUID CERVICAL SCREENING PAP FLUID CERVICAL SCREENING Lab Routine Screening for cervical cancer Encounter for screening for human papillomavirus (HPV) 05/07/2021 2:45 PM EDT [facility] Work Phone: Patient Education [facility] Work Phone: Patient referral [facility] Work Phone: Procedure [facility] Procedure [facility] Prothrombin time [facility] Prothrombin time [facility] REFER FOR ADMIT INTERVIEW REFER FOR ADMIT INTERVIEW Procedures Routine Intramural and subserous leiomyoma of uterus Pelvic pain in female Preop examination Ordered: 10/26/2023 [facility] Work Phone: Comment on above: Ordered: 10/26/2023 Smooth muscle Ab [Presence] in Serum [facility] Thyroid stimulating hormone measurement [facility] Urinalysis complete panel - Urine [facility] US Heart [facility] End: 06-17-2024 US Pelvis transvaginal US FEMALE PELVIS TRANSVAG Radiology Routine Breakthrough bleeding on control pills Uterine leiomyoma, unspecified location 1 Occurrences starting 05/19/2023 until 06/17/2024 [facility] Work Phone: Comment on above: 1 Occurrences starti ng 05/19/2023 until 06/17/2024 US Pelvis transvaginal US FEMALE PELVIS TRANSVAG Radiology Routine Breakthrough bleeding on control pills Uterine leiomyoma, unspecified location 06/26/2023 3:34 PM EDT [facility] Work Phone: [facility] Immunizations Immunization Date Immunization Notes Care Provider Fa [facility] 09-03-2024 tetanus toxoid, redu zhane diphtheria toxoid, and acellular pertussis vaccine, adsorbed Dr. Emily Sanders MD Work Phone: [facility] 12-26-2020 Covid (Pfizer) Dr. Emily Sanders MD Work Phone: [facility] 12-15-2020 Influenza, injectabl e, Madin Delmis Canine Kidney, preservative free, quadrivalent Dr. Emily Sanders MD Work Phone: [facility] 12-15-2020 influenza virus vaccine, unspecified formulation Sherly gN APRN.CNP Work Phone: [facility] 12-05-2020 Covid (Pfizer) Dr. Emily Sanders MD Work Phone: [facility] 12-02-2019 influenza, injectable,quadrivalent , preservative free, pediatric Dr. Emily Sanders Work Phone: [facility] 12-02-2019 influenza, seasonal, injectable, preservative free Dr. Emily Sanders MD Work Phone: [facility] 12-02-2019 Flucelvax Quad [id number] (PF) (flu vac qs 2019(4 yr up)CD(PF)) 60 mcg ([address] Emily Sanders Work Phone: [facility] Work Phone: 08-17-2019 diphtheria, tetanus toxoids and acellular pertussis vaccine, unspecified formulation Dr. Emily Sanders Work Phone: [facility] Work Phone: 08-17-2019 tetanus toxoid, redu zhane diphtheria toxoid, and acellular pertussis vaccine, adsorbed Dr. Emily Sanders Work Phone: [facility] Work Phone: Payers Date Payer Category Payer Private Health Insurance [id number] 2023 Self-pay [id number] 2019 Self-pay [id number] 2006 [facility] FEP PPO [id number] 2006 Blue Cross Blue Shie ld Managed Care [facility] [id number] 2006 Unknown 2006 Unknown ANTHEM ANTHE[employer] FEP PPO [id number] 2006-Present [phone] [address] [place] [address] PPO [id number] 2006 Unknown [id number] 1984 Unknown [id number] 2.840.1.961032.3.579. 2.1243 1984 Unknown [id number] .840.1.966342.3.579. 2.627 Unknown [id number] 2.840.1.229619.3.579. 2.462 Unknown [id number] 2.16840.1.912097.3.579. 2.462 Unknown [id number] 2.16840.1.393061.3.579. 2.462 Unknown [id number] 2.16840.1.342550.3.579. 2.462 Unknown [id number] 2.16.840.1.799663.3.579. 2.462 Unknown [id number] 2.16.840.1.615198.3.579. 2.462 Unknown [id number] 2.16.840.1.479294.3.579. 2.462 Unknown [id number] 2.16.840.1.069146.3.579. 2.462 Unknown [id number] 2.840.1.593698.3.579. 2.462 Unknown [id number] 2.840.1.540075.3.579. 2.462 Unknown [id number] 2.840.1.285044.3.579. 2.462 Unknown [id number] 2.840.1.679826.3.579. 2.462 Unknown [id number] 2.840.1.806276.3.579. 2.462 Unknown [id number] 2.840.1.084892.3.579. 2.462 Unknown [id number] 2.840.1.846468.3.579. 2.462 Unknown [id number] 2.840.1.612571.3.579. 2.462 Unknown [id number] 2.840.1.314748.3.579. 2.462 Unknown [id number] 2.840.1.770210.3.579. 2.462 Unknown [id number] 2.840.1.467196.3.579. 2.462 Unknown [id number] 2.840.1.654310.3.579. 2.462 Unknown [id number] 2.840.1.068084.3.579. 2.462 Unknown [id number] 2.16840.1.144566.3.579. 2.462 Unknown [id number] 2.840.1.977586.3.579. 2.462 Unknown [id number] 2.16.840.1.781093.3.579. 2.462 Unknown [id number] 2.16.840.1.912762.3.579. 2.462 Unknown [id number] 2.16.840.1.258054.3.579. 2.462 Unknown [id number] 2.16.840.1.449846.3.579. 2.462 Unknown [id number] 2.16.840.1.543402.3.579. 2.462 Unknown [id number] 2.840.1.246821.3.579. 2.462 Unknown [id number] 2.16.840.1.598057.3.579. 2.462 Unknown [id number] 2.840.1.865719.3.579. 2.462 Unknown [id number] 2.840.1.654831.3.579. 2.462 Unknown [id number] 2.840.1.022121.3.579. 2.462 Unknown [id number] 2.840.1.954539.3.579. 2.462 Unknown [id number] 2.840.1.224053.3.579. 2.462 Unknown [id number] 2.840.1.559119.3.579. 2.462 Unknown [id number] 2.840.1.592676.3.579. 2.462 Unknown [id number] 2.840.1.306258.3.579. 2.462 Unknown [id number] 2.16840.1.003881.3.579. 2.462 Unknown [id number] 2.16840.1.929184.3.579. 2.462 Unknown [id number] 2.840.1.582389.3.579. 2.462 Social History Date Type Detail Facility [facility] Start: 07-15-2021 End: 02-06-2023 Tobacco smoking consumption unknown [facility] Start: 03-14-2019 End: 10-28-2024 Tobacco smoking status NHIS Never smoked tobacco [facility] Start: 03-14-2019 End: 01-17-2022 Tobacco use and exposure Smokeless tobacco non-user [facility] Start: 03-16-2020 End: 05-20-2024 Alcohol intake Lifetime non-drinker (finding) [facility] Start: 09-13-2019 History SDOH Alcohol Frequency 1 [facility] Start: 1985 Sex Assigned At Not on file [facility] Start: 04-08-2021 End: 03-29-2024 Exposure to SARS-CoV-2 (event) Not sure [facility] Start: 1985 Sex Assigned At Female [facility] Start: 03-26-2020 Non-smoker [facility] Start: 09-13-2019 End: 06-20-2022 History of Social function [facility] Start: 09-13-2019 End: 06-20-2022 Alcohol Use Disorder Identification Test - Consumption [AUDIT-C] [facility] How often to you hav e a drink containing alcohol? Never [facility] Start: 01-11-2019 Average Number of Drinks Not on file [facility] Start: 04-30-2021 Gender identity Identifies as female gender (finding) [facility] Start: 10-28-2023 Sexual orientation Heterosexual (finding) [facility] Start: 04-15-2024 End: 05-05-2024 Sex Female (finding) [facility] Start: 09-30-2024 Alcoholic beverage intake [facility] Go[facility] Date Patient Goal Desired Activity /State Mental Status Date Assessment Result Facility 10-31-2024 Cognitive function Level Of Consciousness Sedated [facility] Work Phone: 09-10-2024 Cognitive function Level Of Cons ciousness Awake;Alert;Appropriate;Follow s Commands [facility] Work Phone: 04-03-2024 Cognitive function Voice/Name [facility] Work Phone: 03-31-2024 Cognitive function Level Of Cons ciousness Awake;Alert;Appropriate [facility] Work Phone: 01-18-2024 Cognitive function Voice/Name [facility] Work Phone: Clinical Notes 04-18-2021 to 11-03-2024 Note Date & Type Note Facility 11-03-2024 Note HNO ID: [id number] Author: CB SALCEDO Mammo Tech Service: ? Author Type: Marketing Programs Specialist Type: Progress Notes Filed: 11/03/2024 15:19 Note Text: Radiology Service Progress Note PATIENT NAME: Violet Hernandez DATE OF SERVICE: November 03, 2024 TIME: 3:19 PM PATIENT IDENTITY VERIFICATION COMPLETED USING TWO (2) IDENTIFIERS: Name and Date of confirmed by patient verbally. FALL SCREENING: Has the patient had 2 falls in the last year or 1 fall with injury or currently using an Ambulatory Assistive Device (Walker, Cane, Wheelchair, Crutches, etc.)? No PATIENT GENDER DATA: Assigned female at . status: : No status: NO. PATIENT RELEVANT IMPLANT DATA REVIEWED: Not Applicable PATIENT PRESENTS WITH AN IMPLANTABLE OR ATTACHED HAT IRONER: No RADIOLOGY DEPARTMENT: Mammography PERIPHERAL IV DATA: Not applicable SIGNED BY: Edna Adler November 03, 2024 3:19 PM [facility] 10-31-2024 Consult note Note Date/Time October 31, 2024 8:37am [facility] Medical Records Department [address] [place] [address] Pre-Anesthesia Evaluation 10/31/24 0836 MR#: [id number] Acct: [id number] Name: VIOLET HERNANDEZ Rep #: [id number] : 1985 38 From: Salvatore Ribeiro MD PCP: Dr. Emily Sanders MD Status:R EG [facility] Y Race: C Location: [place] [address] ASA Classification* ASA Classification ASA Classification: 2 Assessment & Plan Anesthesia* Anesthesia Assessment Anesthesia Assessment: Discussed sedation and/or anesthesia options, risks, benefits, and alternatives with patient/parents/legal guardian/POA. Questions invited. The patient/parents/legal guardian/POA seems to understand and agrees to proceedwith anesthesia plan. Reviewed the physical assessment, medical history, allergy history and patient home medications list prior to surgery/procedure/anesthetic and documented any changes. Performed airway and anesthesia risk assessments. Anesthesia Type Anesthesia Type: MAC Anesthesia Focused Assessment* Airway Assessment Mouth opens: >3 cm Mallampati Score: II Labs Anesthesia Preop lab: CBC WBC, (4.4-11.0) 2.9 K/mm3 L 10/11/24, 13: RBC, (4.2-5.4) 3.65 M/mm3 L 10/11/24, 13: Hgb, (12.0-15.0) 12.8 g/dL 10/11/24, : Hct, (37-47) 36.9 % L 10/11/24, : Plt Count, (150-450) 160 K/mm3 10/11/24, : CHEMISTRY Potassium, (3.3-5.1) 3.8 mmol/L 10/11/24, : Sodium, (133-145) 139 mmol/L 10/11/24, 13: Magnesium, (1.5-2.2) 2.2 mg/dL 09/23/24, 10:00 BUN, (4-19) 17 mg/dL 10/11/24, 13: Creatinine, (0.70-1.20) 0.69 mg/dL L 10/11/24, 13: Glucose, (70-99) 142 mg/dL H 10/11/24, 13: TSH, (0.300-4.200) 4.060 uIU/mL 09/23/24, 10:00 COAG PT, (11.7-14.9) 13.3 SECONDS 09/23/24, 10:01 Pre-Assessment Diagnosis/Proposed Procedure Planned Operative Procedure(s): FLEX SIG Anesthesia History Anesthesia History - secure software assessor: Anesthesia History - secure software assessor Hx Hospitalization No 10/28/24 12:00 Any Problems With Anesthesia No 10/28/24 12:00 Cholinesterase deficiency No 10/28/24 12:00 You/Your Family Experience No 10/28/24 12:00 fever (hyperthermia) with Relationship Recent Exposure to Contagious Disease Does patient have nerve No 10/28/24 12:00 stimulator Patient instructed to have device shut off --Does patient have Pacemaker or ICD? When Was Last Pacemaker Check QUESTION #4 FULL TEXT: You/Your Family Experience fever (hyperthermia) with Anesthesia Last Oral Intake Last Oral intake: Last Oral Intake NPO since Meds taken in AM with sips of water? Meds patient instructed to take am of surgery PONV PONV - secure software assessor: PONV - secure software assessor Female Yes 10/28/24 12:00 HX of Motion Sickness No 10/28/24 12:00 HX of N/V After Surgery No 10/28/24 12:00 Non-Smoker Yes 10/28/24 12:00 Duration of Surgery greater No 10/28/24 12:00 than 60 minutes Number of Risk Factors 2 10/28/24 12:00 PONV Score Moderate Risk 10/28/24 12:00 Height & Weight Height & Weight: Anesthesia: Height & Weight Height 4 ft 10 in 10/21/24 05:59 Respiratory Assessment Respiratory Assessment - secure software assessor: Respiratory Tract Infection Hx - secure software assessor Hx Respiratory Tract Infection No 10/28/24 12:00 STOP Sleep Apnea STOP Sleep Apnea - secure software assessor: STOP Sleep Apnea - secure software assessor Hx Hypertension No 10/28/24 12:00 Hx Sleep Apnea Yes 10/28/24 12:00 CPAP Yes: HASNT RECIEVED YET 10/28/24 12:00 BIPAP No 10/28/24 12:00 Do you snore loudly (louder than talking or can be heard Do you often feel tired/ fatigued/ sleepy during daytime? Has anyone observed you stop breathing during sleep? STOP Results Positive 10/28/24 12:00 QUESTION #5 FULL TEXT : Do you snore loudly (louder than talking or can be heard through closed doors)? 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 Specify any problems Hx of Preganancy in last 3 N/A 10/28/24 12:00 Months Nurse Filling Out Transfusion NBUCHER 10/28/24 12:00 & Questions: Date: 10/28/24 10/28/24 12:00 Time: 12:02 10/28/24 12:00 Patient unable to answer at this time (ie. confused, unrespo /Reproduction History /Reproductive History - secure software assessor: /Reproductive Hx- secure software assessor Hx Now No 10/28/24 12:00 Gestational Age (in weeks): EDC: Hx Hx Para Hx Section SAB No 10/28/24 12:00 Active Medications Active Medications: Current Medications Generic Name Dose Route Start Last Admin Trade Name Freq PRN Reason Stop Dose Admin Lactated Ringer's 1,000 mls @ 15 mls/hr 10/31/24 08:45 IV .Q48H JOEY PFSH Medical History Wears glasses Cancer High cholesterol Fatty liver History of IBS Non-smoker CPAP (continuous positive airway pressure) dependence Sleep apnea History of edema History of Holter monitoring History of echocardiogram History of stress test Cardiology follow-up encounter Lichen sclerosus NICA (obstructive sleep apnea) Costochondritis COELHO (nonalcoholic [...] (urinary tract infection) Seasonal allergies Home Medications ?Medication ?Instructions ?Recorded ?Last Taken ?Type docusate sodium 100 mg capsule 100 mg PO DAILY PRN con stipation 12/11/23 Unknown History (Stool Softener) albuterol sulfate 90 mcg/actuation 2 inh inhalation Q4 H PRN shortness 03/31/24 Unknown History aerosol inhaler of breath or wheezing cholecalciferol (vitamin D3) 50 50 mcg PO DAILY Unknown History mcg (2,000 unit) tablet (D3 DOTS) estradiol 0.1 mg/24 hr semiweekly 1 patch topical SUWE 03/31/24 Unknown History transdermal patch (Shaye) fluvoxamine 100 mg tablet 100 mg PO DAILY 03/31/24 Unk nown History metronidazole 1 % topical gel 1 applic topical DAILY P RN 04/25/24 Unknown History Perioral detmatitis rosuvastatin 10 mg tablet 5 mg (1/2 x 10 mg) PO DAILY 1 07/19/24 Unknown Rx month #30 tabs cetirizine 10 mg capsule 10 mg PO HS PRN Seasonal all ergies 10/11/24 Unknown History clobetasol 0.05 % topical cream 1 applic topical DAILY 10/11/24 Unknown History multivitamin 1 tab PO QAM 10/11/24 Unknow n History resmetirom 80 mg tablet (Rezdiffra) 80 mg PO QDAY 04/05 Unknown History mecobalamin (vitamin B12) 1,000 1,000 mcg PO QDAY 11/03 Unknown History mcg chewable tablet (B12 Active) vitamin E 200 unit capsule 90 mg PO QDAY 10/28/24 Unkn own History Allergy/AdvReac Type Severity Reaction Status Date / Time No Known Allergies Allergy Verified 10/28/24 11:55 Family History Brother Anxiety Hypertension Sister Anxiety Hypertension Uncle Anxiety Myocardial infarction Aunt Anxiety Grandmother Breast cancer Grandfather Myocardial infarction Father Hypertension Surgical History History of wisdom tooth extraction History of hysterectomy Hx of local excision of skin lesion History of bone marrow biopsy Social History current occupational status: unemployed 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 Smoking Status: Never smoker alcohol intake: never substance use type: does not use caffeine: Yes Type: tea Number of servings: 1 Review of Systems (Anesthesia) ROS Narrative System reviewed and no additional complaints, except as documented. 10/31/24 0837 <Electronically signed by Salvatore Ribeiro MD > Date _ Salvatore Medina Signature: Date CC: ~ Signed [facility] Work Phone: 1(955) 117-282109-22-2025 History and physical note Author Miguel A Mcgarry [facility] Note Date/Time October 31, 2024 8:36am [facility] Medical Records Department [address] [place] [address] History & Physical Exam 10/31/24 0834 MR#: [id number] Acct: [id number] Name: VIOLET HERNANDEZ Rep #: [id number] : 1985 38 From: Miguel A Mcgarry DO PCP: Dr. Emily aSnders MD Status:R [facility] Location: [place] [address] HPI - General General Date of Admission: 10/31/24 Date of Service: 10/31/24 Chief Complaint: anal itching HPI Narrative VIOLET HERNANDEZ, is a 38 F who presents with the Chief Complaint: rectal itching Details: - seen by [facility] and diagnosed with Lichen, vaginal itching and pain with intercourse - reports rectal itching has been worse than vaginal itching - itching worse at night - hydrocortisone helps a little - has had some rectal bleeding with BM the past few months - denies any change in bowel habits - started Rezdiffra 3 days ago for the liver (Dr. Jules) - Dr. Jenni Hwang at [facility] - reports having an anxiety disorder - presently seeing cardiology at [place] - wearinf a 14d heart monitor - Colon 1 year ago - Dr. Boogie, per patient this was unremarkable - was not having these symptoms a year ago [facility] Medical History Wears glasses Cancer High cholesterol Fatty liver History of IBS Non-smoker CPAP (continuous positive airway pressure) dependence Sleep apnea History of edema History of Holter monitoring History of echocardiogram History of stress test Cardiology follow-up encounter Lichen sclerosus NICA (obstructive sleep apnea) Costochondritis COELHO (nonalcoholic [...] (urinary tract infection) Seasonal allergies Home Medications ?Medication ?Instructions ?Recorded ?Last Taken ?Type docusate sodium 100 mg capsule 100 mg PO DAILY PRN con stipation 12/11/23 Unknown History (Stool Softener) albuterol sulfate 90 mcg/actuation 2 inh inhalation Q4 H PRN shortness 03/31/24 Unknown History aerosol inhaler of breath or wheezing cholecalciferol (vitamin D3) 50 50 mcg PO DAILY Unknown History mcg (2,000 unit) tablet (D3 DOTS) estradiol 0.1 mg/24 hr semiweekly 1 patch topical SUWE 03/31/24 Unknown History transdermal patch (Shaye) fluvoxamine 100 mg tablet 100 mg PO DAILY 03/31/24 Unk nown History metronidazole 1 % topical gel 1 applic topical DAILY P RN 04/25/24 Unknown History Perioral detmatitis rosuvastatin 10 mg tablet 5 mg (1/2 x 10 mg) PO DAILY 1 07/19/24 Unknown Rx month #30 tabs cetirizine 10 mg capsule 10 mg PO HS PRN Seasonal all ergies 10/11/24 Unknown History clobetasol 0.05 % topical cream 1 applic topical DAILY 10/11/24 Unknown History multivitamin 1 tab PO QAM 10/11/24 Unknow n History resmetirom 80 mg tablet (Rezdiffra) 80 mg PO QDAY 04/05 Unknown History mecobalamin (vitamin B12) 1,000 1,000 mcg PO QDAY 11/03 Unknown History mcg chewable tablet (B12 Active) vitamin E 200 unit capsule 90 mg PO QDAY 10/28/24 Unkn own History Allergy/AdvReac Type Severity Reaction Status Date / Time No Known Allergies Allergy Verified 10/28/24 11:55 Family History Brother Anxiety Hypertension Sister Anxiety Hypertension Uncle Anxiety Myocardial infarction Aunt Anxiety Grandmother Breast cancer Grandfather Myocardial infarction Father Hypertension Surgical History History of wisdom tooth extraction History of hysterectomy Hx of local excision of skin lesion History of bone marrow biopsy Social History current occupational status: unemployed 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 Smoking Status: Never smoker alcohol intake: never substance use type: does not use caffeine: Yes Type: tea Number of servings: 1 ROS Constitutional Constitutional: Denies fatigue, fever(s), poor appetite, weight gain or weight loss Gastrointestinal Gastrointestinal: Denies belching, bloating, change in bowel habits, change in stool character, chewing difficulty, coffee ground emesis, constipation, cramping, diarrhea, dyspepsia, dysphagia, early satiety, excessive flatus, fecalincontinence, heartburn, hematemesis, hematochezia, hemorrhoids, loose stools, melena, nausea, odynophagia, rectal bleeding, tenesmus, vomiting or weight changes Physical Exam Const alert, oriented x3, no apparent distress and healthy appearing General Appearance: cooperative GI normal to inspection, nondistended, normoactive bowel sounds, soft to palpation,non-tender and non-distended Percussion: normal to percussion Rectal Exam: deferred Assessment & Plan Assessment/Plan (1) Rectal bleeding: (2) Rectal pain: (3) Rectal itching: PLAN: Assessment and Plan Assessment and Plan (1) Rectal itching: Status: Acute (2) Rectal pain: Status: Acute (3) Rectal bleeding: Status: Acute Medications: New hydrocortisone acetate (Anusol-HC) 25 mg PA QHS 12 ea 0RF hemorrhoid Plan 38-year-old female with a history of lichen sclerosus and mitral valve prolapse presenting with persistent pruritus and irritation primarily affecting the anal and vulvar areas. The symptoms of pruritus are exacerbated by heat and perspiration. Exam findings showed discoloration and patches. She will schedule consult with dermatology. Patient Instructions: Schedule consult with dermatology - perianal lichens? Anusol suppositories for hemorrhoid Sigmoidoscopy - Cardiac moitor - will need cleared from a cardiac standpoint 10/31/24 0836 <Electronically signed by Miguel A Mcgarry DO> Cosigner Signature (if applicable): CC: Dr. Emily Sanders MD; Miguel A Mcgarry DO~ Signed [facility] Work Phone: 1(374) 318-172309-22-2025 Consult note [facility] Medical Records Department [address] [place] [address] Anesthesia Postop Eval II 10/31/24 1013 MR#: [id number] Acct: [id number] Name: VIOLET HERNANDEZ Rep #: [id number] : 1985 38 From: Salvatore Ribeiro MD PCP: Dr. Emily Sanders MD Status:R [facility] Y Race: C Location: [place] [address] Anesthesia Postop Eval I Sum Postop Eval Completion status Anesthesia document: Postop Eval 1 completed: Yes Anesthesia Postop Eval I Summary Anesthesia Postop Eval I Summary: Anesthesia Postop Eval I: Assessment Summary Airway patent Yes 10/31/24 10:07 [email or web address] Spontaneous unlabored Yes 10/31/24 10:07 [email or web address] respirations Mental status Awake,Calm 10/31/24 10:07 [email or web address] nausea No 10/31/24 10:07 [email or web address] Vomiting No 10/31/24 10:07 [email or web address] Anesthesia Postop Eval I: Fluid Summary Crystalloid volume administer 400 10/31/24 10:07 [email or web address] (ml) Colloids volume administered ( ml) Blood Product volume administered (ml) Total IV fluid infused 400 10/31/24 10:07 [email or web address] Anesthesia Postop Eval I: Summary Notes Anesthesia Complication No 10/31/24 10:07 [email or web address] Anesthesia Complication Comment: Post-operative progress note Anesthesia: Postop Eval II Evaluation Mental status: Awake Pain Level: 0 nausea: No Vomiting: No 10/31/24 1013 > Date _ Salvatore Medina Signature: Date CC: ~ Signed [facility]09-22-2025 Procedure note [facility] Medical Records Department [address] [place] [address] Flex Sigmoidoscopy Report MR#: [id number] Acct: [id number] Name: VIOLET HERNANDEZ Rep #: [id number] : 1985 38 From: Miguel A Mcgarry DO PCP: Dr. Emily Sanders MD Status:R [facility] Patient Name: Violet Hernandez Procedure Date: 10/31/2024 9:41 AM Date of : 1985 Age: 38 Procedure: Flexible Sigmoidoscopy Indications: Anal pain Providers: Miguel A Mcgarry DO Medicines: Monitored Anesthesia Care Patient Profile: This is a 38 year old female. Refer to note in patient chart for documentation of history and physical. Patient has symptoms of acute abdominal pain. Complications: No immediate complications. Procedure: Pre-Anesthesia Assessment: - Prior to the procedure, a History and Physical was performed, and patient medications and allergies were reviewed. The patient is competent. The risks and benefits of the procedure and the sedation options and risks were discussed with the patient. All questions were answered and informed consent was obtained. Patient identification and proposed procedure were verified by the physician in the pre-procedure area. Mental Status Examination: alert and oriented. Airway Examination: normal oropharyngeal airway and neck mobility. Respiratory Examination: clear to auscultation. CV Examination: normal. Prophylactic Antibiotics: The patient does not require prophylactic antibiotics. Prior Anticoagulants: The patient has taken no anticoagulant or antiplatelet agents. ASA Grade Assessment: II - A patient with mild systemic disease. After reviewing the risks and benefits, the patient was deemed in satisfactory condition to undergo the procedure. The anesthesia plan was to use monitored anesthesia care (MAC). Immediately prior to administration of medications, the patient was re-assessed for adequacy to receive sedatives. The heart rate, respiratory rate, oxygen saturations, blood pressure, adequacy of pulmonary ventilation, and response to care were monitored throughout the procedure. The physical status of the patient was re-assessed after the procedure. After obtaining informed consent, the endoscope was passed under direct vision. Throughout the procedure, the patient's blood pressure, pulse, and oxygen saturations were monitored continuously. The pediatric colonoscope was introduced through the anus and advanced to the splenic flexure. The quality of the bowel preparation was good. Scope In: 9:51:39 AM Scope Out: 9:54:43 AM Total Procedure Duration Time 0 hours 3 minutes 4 seconds Findings: The perianal and digital rectal examinations were normal. Pertinent negatives include normal sphincter tone, no palpable rectal lesions and no anal lesion or abnormality. A 4 mm anal fissure was found in the anal canal. The exam was otherwise without abnormality. Anal papilla(e) were hypertrophied. Impression: - Anal fissure. - The examination was otherwise normal. - Anal papilla(e) were hypertrophied. - No specimens collected. Recommendation: - Use original regular Metamucil one teaspoon PO daily. Procedure Code(s): --- Professional --- 81796, Sigmoidoscopy, flexible; diagnostic, including collection of specimen(s) by brushing or washing, when performed (separate procedure) CPT copyright 2021 [employer]. All rights reserved. The codes documented in this report are preliminary and upon sample taker operator review may be revised to meet current compliance requirements. Miguel A Mcgarry DO 10/31/2024 10:03:12 AM This report has been signed electronically. Number of Addenda: 0 Note Initiated On: 10/31/2024 9:41 AM 10/31/24 1003 Date _ Miguel A Denson Signature: Date (if indicated) CC: Dr. Emily Sanders MD; Miguel A Mcgarry DO ~ Date Dictated: 10/31/2441 Date Transcribed: Roof Truss Detailer: RF Signed [facility]09-22-2025 Procedure note [facility] Medical Records Department [address] [place] [address] Provation Physician Letter MR#: [id number] Acct: [id number] Name: VIOLET HERNANDEZ Rep #: [id number] : 1985 38 From: Miguel A Mcgarry DO PCP: Dr. Emily Sanders MD Status:R [facility] 10/31/2024 Emily Sanders MD [address] [place] [address] [place] [address] Re : Flexible Sigmoidoscopy procedure for Violet Hernandez Dear Dr. Sanders This procedure was performed on Thursday, October 31, 2024. My impressions and recommendations are as follows: Impressions : - Anal fissure. - The examination was otherwise normal. - Anal papilla(e) were hypertrophied. - No specimens collected. Recommendations : - Use original regular Metamucil one teaspoon PO daily. My findings are described in the full procedure note, which is enclosed. If I can be of further assistance, please feel free to contact me at . Sincerely, Miguel A Mcgarry DO 10/31/2024 10:03:12 AM This report has been signed electronically. 10/31/24 1003 Date _ Miguel A Mcgarry DO Cosigner Signature: Date (if indicated) CC: Dr. Emily Sanders MD; Miguel A Mcgarry DO ~ Date Dictated: 10/31/2441 Date Transcribed: Roof Truss Detailer: RF Signed [facility]09-22-2025 Consult note [facility] Medical Records Department [address] [place] [address] Anesthesia Postop Eval I 10/31/24 1006 MR#: [id number] Acct: [id number] Name: VIOLET HERNANDEZ Rep #: [id number] : 1985 38 From: Adriano Schroeder PCP: Dr. Emily Sanders MD Status:Ike [facility] Y Race: C Location: [place] [address] Anesthesia: Postop Eval I Current Vital Signs Temperature: 98 F Pulse Rate: 61 Blood Pressure: 112/65 Respiratory Rate: 16 Pulse Ox: 98 Oxygen Delivery Method: Room Air Assessment Airway patent: Yes Spontaneous unlabored respirations: Yes Mental status: Awake and Calm nausea: No Vomiting: No Anesthesia Complication: No Fluid Hydration Crystalloid volume administer (ml): 400 Total IV fluid infused: 400 Progress Note Anesthesia document: Postop Eval 1 completed: Yes 10/31/24 1007 > Date _ Adriano Medina Signature: Date CC: ~ Signed [facility]09-22-2025 Consult note [facility] Medical Records Department [address] [facility] [place] [address] Pre-Anesthesia Evaluation 10/31/24 0836 MR#: [id number] Acct: [id number] Name: VIOLET HERNANDEZ Rep #: [id number] : 1985 38 From: Salvatore Ribeiro MD PCP: Dr. Emily Sanders MD Status:R [facility] Y Race: C Location: [place] [address] ASA Classification* ASA Classification ASA Classification: 2 Assessment & Plan Anesthesia* Anesthesia Assessment Anesthesia Assessment: Discussed sedation and/or anesthesia options, risks, benefits, and alternatives with patient/parents/legal guardian/POA. Questions invited. The patient/parents/legal guardian/POA seems to understand and agrees to proceedwith anesthesia plan. Reviewed the physical assessment, medical history, allergy history and patient home medications list prior to surgery/procedure/anesthetic and documented any changes. Performed airway and anesthesia risk assessments. Anesthesia Type Anesthesia Type: MAC Anesthesia Focused Assessment* Airway Assessment Mouth opens: >3 cm Mallampati Score: II Labs Anesthesia Preop lab: CBC WBC, (4.4-11.0) 2.9 K/mm3 L 10/11/24, 13: RBC, (4.2-5.4) 3.65 M/mm3 L 10/11/24, 13: Hgb, (12.0-15.0) 12.8 g/dL 10/11/24, 13: Hct, (37-47) 36.9 % L 10/11/24, 13: Plt Count, (150-450) 160 K/mm3 10/11/24, 13: CHEMISTRY Potassium, (3.3-5.1) 3.8 mmol/L 10/11/24, 13: Sodium, (133-145) 139 mmol/L 10/11/24, 13: Magnesium, (1.5-2.2) 2.2 mg/dL 09/23/24, 10:00 BUN, (4-19) 17 mg/dL 10/11/24, 13: Creatinine, (0.70-1.20) 0.69 mg/dL L 10/11/24, 13: Glucose, (70-99) 142 mg/dL H 10/11/24, 13: TSH, (0.300-4.200) 4.060 uIU/mL 09/23/24, 10:00 COAG PT, (11.7-14.9) 13.3 SECONDS 09/23/24, 10:01 Pre-Assessment Diagnosis/Proposed Procedure Planned Operative Procedure(s): FLEX SIG Anesthesia History Anesthesia History - secure software assessor: Anesthesia History - secure software assessor Hx Hospitalization No 10/28/24 12:00 Any Problems With Anesthesia No 10/28/24 12:00 Cholinesterase deficiency No 10/28/24 12:00 You/Your Family Experience No 10/28/24 12:00 fever (hyperthermia) with Relationship Recent Exposure to Contagious Disease Does patient have nerve No 10/28/24 12:00 stimulator Patient instructed to have device shut off --Does patient have Pacemaker or ICD? When Was Last Pacemaker Check QUESTION #4 FULL TEXT: You/Your Family Experience fever (hyperthermia) with Anesthesia Last Oral Intake Last Oral intake: Last Oral Intake NPO since Meds taken in AM with sips of water? Meds patient instructed to take am of surgery PONV PONV - secure software assessor: PONV - secure software assessor Female Yes 10/28/24 12:00 HX of Motion Sickness No 10/28/24 12:00 HX of N/V After Surgery No 10/28/24 12:00 Non-Smoker Yes 10/28/24 12:00 Duration of Surgery greater No 10/28/24 12:00 than 60 minutes Number of Risk Factors 2 10/28/24 12:00 PONV Score Moderate Risk 10/28/24 12:00 Height & Weight Height & Weight: Anesthesia: Height & Weight Height 4 ft 10 in 10/21/24 05:59 Respiratory Assessment Respiratory Assessment - secure software assessor: Respiratory Tract Infection Hx - secure software assessor Hx Respiratory Tract Infection No 10/28/24 12:00 STOP Sleep Apnea STOP Sleep Apnea - secure software assessor: STOP Sleep Apnea - secure software assessor Hx Hypertension No 10/28/24 12:00 Hx Sleep Apnea Yes 10/28/24 12:00 CPAP Yes: HASNT RECIEVED YET 10/28/24 12:00 BIPAP No 10/28/24 12:00 Do you snore loudly (louder than talking or can be heard Do you often feel tired/ fatigued/ sleepy during daytime? Has anyone observed you stop breathing during sleep? STOP Results Positive 10/28/24 12:00 QUESTION #5 FULL TEXT : Do you snore loudly (louder than talking or can be heard through closeddoors)? 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 Specify any problems Hx of Preganancy in last 3 N/A 10/28/24 12:00 Months Nurse Filling Out Transfusion NBUCHER 10/28/24 12:00 & Questions: Date: 10/28/24 10/28/24 12:00 Time: 12:02 10/28/24 12:00 Patient unable to answer at this time (ie. confused, unrespo /Reproduction History /Reproductive History - secure software assessor: /Reproductive Hx- secure software assessor Hx Now No 10/28/24 12:00 Gestational Age (in weeks): EDC: Hx Hx Para Hx Section SAB No 10/28/24 12:00 Active Medications Active Medications: Current Medications Generic Name Dose Route Start Last Admin Trade Name Freq PRN Reason Stop Dose Admin Lactated Ringer's 1,000 mls @ 15 mls/hr 10/31/24 08:45 IV .Q48H JOEY PFSH Medical History Wears glasses Cancer High cholesterol Fatty liver History of IBS Non-smoker CPAP (continuous positive airway pressure) dependence Sleep apnea History of edema History of Holter monitoring History of echocardiogram History of stress test Cardiology follow-up encounter Lichen sclerosus NICA (obstructive sleep apnea) Costochondritis COELHO (nonalcoholic [...] (urinary tract infection) Seasonal allergies Home Medications ?Medication ?Instructions ?Recorded ?Last Taken ?Type docusate sodium 100 mg capsule 100 mg PO DAILY PRN con stipation 12/11/23 Unknown History (Stool Softener) albuterol sulfate 90 mcg/actuation 2 inh inhalation Q4 H PRN shortness 03/31/24 Unknown History aerosol inhaler of breath or wheezing cholecalciferol (vitamin D3) 50 50 mcg PO DAILY Unknown History mcg (2,000 unit) tablet (D3 DOTS) estradiol 0.1 mg/24 hr semiweekly 1 patch topical SUWE 03/31/24 Unknown History transdermal patch (Shaye) fluvoxamine 100 mg tablet 100 mg PO DAILY 03/31/24 Unk nown History metronidazole 1 % topical gel 1 applic topical DAILY P RN 04/25/24 Unknown History Perioral detmatitis rosuvastatin 10 mg tablet 5 mg (1/2 x 10 mg) PO DAILY 1 07/19/24 Unknown Rx month #30 tabs cetirizine 10 mg capsule 10 mg PO HS PRN Seasonal all ergies 10/11/24 Unknown History clobetasol 0.05 % topical cream 1 applic topical DAILY 10/11/24 Unknown History multivitamin 1 tab PO QAM 10/11/24 Unknow n History resmetirom 80 mg tablet (Rezdiffra) 80 mg PO QDAY 04/05 Unknown History mecobalamin (vitamin B12) 1,000 1,000 mcg PO QDAY 11/03 Unknown History mcg chewable tablet (B12 Active) vitamin E 200 unit capsule 90 mg PO QDAY 10/28/24 Unkn own History Allergy/AdvReac Type Severity Reaction Status Date / Time No Known Allergies Allergy Verified 10/28/24 11:55 Family History Brother Anxiety Hypertension Sister Anxiety Hypertension Uncle Anxiety Myocardial infarction Aunt Anxiety Grandmother Breast cancer Grandfather Myocardial infarction Father Hypertension Surgical History History of wisdom tooth extraction History of hysterectomy Hx of local excision of skin lesion History of bone marrow biopsy Social History current occupational status: unemployed 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 Smoking Status: Never smoker alcohol intake: never substance use type: does not use caffeine: Yes Type: tea Number of servings: 1 Review of Systems (Anesthesia) ROS Narrative System reviewed and no additional complaints, except as documented. 10/31/24 0837 > Date _ Salvatore Medina Signature: Date CC: ~ Signed [facility]25 History and physical note [facility] Medical Records Department [address] [place] [address] History & Physical Exam 10/31/24 0834 MR#: [id number] Acct: [id number] Name: VIOLET HERNANDEZ Rep #: [id number] : 1985 38 From: Miguel A Mcgarry DO PCP: Dr. Emily Sanders MD Status:R [facility] Location: [place] [address] HPI - General General Date of Admission: 10/31/24 Date of Service: 10/31/24 Chief Complaint: anal itching HPI Narrative VIOLET HERNANDEZ, is a 38 F who presents with the Chief Complaint: rectal itching Details: - seen by [employer] [facility] and diagnosed with Lichen, vaginal itching and pain with intercourse - reports rectal itching has been worse than vaginal itching - itching worse at night - hydrocortisone helps a little - has had some rectal bleeding with BM the past few months - denies any change in bowel habits - started Rezdiffra 3 days ago for the liver (Dr. Jules) - Dr. Jenni Hwang at [facility] - reports having an anxiety disorder - presently seeing cardiology at [place] - wearinf a 14d heart monitor - Colon 1 year ago - Dr. Boogie, per patient this was unremarkable - was not having these symptoms a year ago [facility] Medical History Wears glasses Cancer High cholesterol Fatty liver History of IBS Non-smoker CPAP (continuous positive airway pressure) dependence Sleep apnea History of edema History of Holter monitoring History of echocardiogram History of stress test Cardiology follow-up encounter Lichen sclerosus NICA (obstructive sleep apnea) Costochondritis COELHO (nonalcoholic [...] (urinary tract infection) Seasonal allergies Home Medications ?Medication ?Instructions ?Recorded ?Last Taken ?Type docusate sodium 100 mg capsule 100 mg PO DAILY PRN con stipation 12/11/23 Unknown History (Stool Softener) albuterol sulfate 90 mcg/actuation 2 inh inhalation Q4 H PRN shortness 03/31/24 Unknown History aerosol inhaler of breath or wheezing cholecalciferol (vitamin D3) 50 50 mcg PO DAILY Unknown History mcg (2,000 unit) tablet (D3 DOTS) estradiol 0.1 mg/24 hr semiweekly 1 patch topical SUWE 03/31/24 Unknown History transdermal patch (Shaye) fluvoxamine 100 mg tablet 100 mg PO DAILY 03/31/24 Unk nown History metronidazole 1 % topical gel 1 applic topical DAILY P RN 04/25/24 Unknown History Perioral detmatitis rosuvastatin 10 mg tablet 5 mg (1/2 x 10 mg) PO DAILY 1 07/19/24 Unknown Rx month #30 tabs cetirizine 10 mg capsule 10 mg PO HS PRN Seasonal all ergies 10/11/24 Unknown History clobetasol 0.05 % topical cream 1 applic topical DAILY 10/11/24 Unknown History multivitamin 1 tab PO QAM 10/11/24 Unknow n History resmetirom 80 mg tablet (Rezdiffra) 80 mg PO QDAY 04/05 Unknown History mecobalamin (vitamin B12) 1,000 1,000 mcg PO QDAY 11/03 Unknown History mcg chewable tablet (B12 Active) vitamin E 200 unit capsule 90 mg PO QDAY 10/28/24 Unkn own History Allergy/AdvReac Type Severity Reaction Status Date / Time No Known Allergies Allergy Verified 10/28/24 11:55 Family History Brother Anxiety Hypertension Sister Anxiety Hypertension Uncle Anxiety Myocardial infarction Aunt Anxiety Grandmother Breast cancer Grandfather Myocardial infarction Father Hypertension Surgical History History of wisdom tooth extraction History of hysterectomy Hx of local excision of skin lesion History of bone marrow biopsy Social History current occupational status: unemployed 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 Smoking Status: Never smoker alcohol intake: never substance use type: does not use caffeine: Yes Type: tea Number of servings: 1 ROS Constitutional Constitutional: Denies fatigue, fever(s), poor appetite, weight gain or weight loss Gastrointestinal Gastrointestinal: Denies belching, bloating, change in bowel habits, change in stool character, chewing difficulty, coffee ground emesis, constipation, cramping, diarrhea, dyspepsia, dysphagia, earlysatiety, excessive flatus, fecalincontinence, heartburn, hematemesis, hematochezia, hemorrhoids, loose stools, melena, nausea, odynophagia, rectal bleeding, tenesmus, vomiting or weight changes Physical Exam Const alert, oriented x3, no apparent distress and healthy appearing General Appearance: cooperative GI normal to inspection, nondistended, normoactive bowel sounds, soft to palpation,non-tender and non-distended Percussion: normal to percussion Rectal Exam: deferred Assessment & Plan Assessment/Plan (1) Rectal bleeding: (2) Rectal pain: (3) Rectal itching: PLAN: Assessment and Plan Assessment and Plan (1) Rectal itching: Status: Acute (2) Rectal pain: Status: Acute (3) Rectal bleeding: Status: Acute Medications: New hydrocortisone acetate (Anusol-HC) 25 mg PA QHS 12 ea 0RF hemorrhoid Plan 38-year-old female with a history of lichen sclerosus and mitral valve prolapse presenting with persistent pruritus and irritation primarily affecting the anal and vulvar areas. The symptoms of pruritus are exacerbated by heat and perspiration. Exam findings showed discoloration and patches. She will schedule consult with dermatology. Patient Instructions: Schedule consult with dermatology - perianal lichens? Anusol suppositories for hemorrhoid Sigmoidoscopy - Cardiac moitor - will need cleared from a cardiac standpoint 10/31/24 0836 Cosigner Signature (if applicable): CC: Dr. Emily Sanders MD; Miguel A Friend, DO~ Signed [facility]09-22-2025 [facility]09-09-2025 Progress [facility] [place] [address] OFFICE VISIT Date of Service: 10/18/24 1120 MR#: [id number] Acct: [id number] Name: VIOLET HERNANDEZ Rep #: [id number] : 1985 From: Gene Braun MD Age/Sex: 38/F Location: [facility] [place] Status: Signed HPI Subjective Date of Service 10/18/24 Chief Complaint F/u for Leukopenia History of Present Illness 38-year-old woman was found to be leukopenic in 2008. Had bone marrow biopsy done at that time which was negative so stayed on observation. She remained leukopenic, moved to [facility], had another bone marrow biopsy on 01/25/2015. Pathology showed hypocellular marrow with normal cytogenetics and FISH. She moved to [place] and wanted her follow done here at [facility]. She is on observation, comes for follow up. Feels well. [facility] Medical History Lichen sclerosus NICA (obstructive sleep apnea) Costochondritis COELHO (nonalcoholic [...] Number of servings: 1 Intake Vital Signs 04/25/24 13:09 10/12/24 09:35 10/18/24 11:22 Height 4 ft 10 in 4 ft 10 in 4 ft 10 in Weight: 60.951 kg BMI 28.0 BP 125/75 H Blood Pressure Location Lt brachial Position Sitting Respiration 16 Pulse 53 L Pulse Source Monitor Temp 98.4 F Temperature Source Temporal Artery Pulse Oximetry (%) 99 Oxygen Delivery Method room air Intake Is patient in pain?: Yes (dental infection) Pain scale (1-10): 6 Allergies No Known Allergies Allergy (Verified 10/18/24 11:24) Medications ?Medication ?Instructions ?Recorded ?Confirmed ?Type docusate sodium 100 mg capsule 100 mg PO DAILY PRN con stipation 12/11/23 10/18/24 History (Stool Softener) albuterol sulfate 90 mcg/actuation 2 inh inhalation Q4 H PRN shortness 03/31/24 10/18/24 History aerosol inhaler of breath or wheezing cholecalciferol (vitamin D3) 50 50 mcg PO DAILY 10/18/24 History mcg (2,000 unit) tablet (D3 DOTS) estradiol 0.1 mg/24 hr semiweekly 1 patch topical SUWE 03/31/24 10/18/24 History transdermal patch (Shaye) fluvoxamine 100 mg tablet 100 mg PO DAILY 03/31/2411/03 History metronidazole 1 % topical gel 1 applic topical DAILY P RN 04/25/24 10/18/24 History Perioral detmatitis vitamin B complex 1 tab PO QDAY 04/27/2410/12 History rosuvastatin 10 mg tablet 5 mg (1/2 x 10 mg) PO DAILY 1 07/19/24 10/18/24 Rx month #30 tabs cetirizine 10 mg capsule 10 mg PO HS Seasonal allergi es 10/11/24 10/18/24 History clobetasol 0.05 % topical cream 1 applic topical BID 0 10/11/24 10/18/24 History hydrocortisone acetate 25 mg 25 mg PA QHS hemorrhoid # 12 ea 10/11/24 10/18/24 Rx rectal suppository (Anusol-HC) multivitamin 1 tab PO QAM 10/11/24 History resmetirom 80 mg tablet (Rezdiffra) 80 mg PO QDAY 04/0510/18/24 History mecobalamin (vitamin B12) 1,000 1,000 mcg PO QDAY 11/0310/18/24 History mcg chewable tablet (B12 Active) metronidazole 250 mg tablet 250 mg PO Q12H 10/18/24 History Laboratory Tests 04/17/21 04/24/22 04/28/23 10:20 13:32 13:55 WBC 2.5 L 3.0 L 2.7 L Hgb 12.7 12.5 12.4 Hct 36.8 L 37.9 37.6 Plt Count 135 L 133 L 130 L Amelia % (Auto) Absolute Neuts (auto) 1.4 L 1.9 L 1.4 L Absolute Lymphs (auto) Sodium 137 Potassium 4.1 Chloride 105 Carbon Dioxide 25.0 BUN 14 Creatinine 0.88 Glucose 85 Calcium 9.1 Total Bilirubin 0.30 AST 33 ALT 61 H Alkaline Phosphatase 67 Lactate Dehydrogenase 218 Total Protein 7.1 Albumin 3.8 Globulin 3.3 08/06/23 04/18/24 07/28/24 13:18 08:40 11:26 WBC 3.4 L 3.2 L 2.8 L Hgb 12.2 12.6 13.4 Hct 36.2 L 36.4 L Plt Count 133 L 159 158 Amelia % (Auto) 15.5 H Absolute Neuts (auto) 1.9 L 1.9 L 1.6 L Absolute Lymphs (auto) 0.85 0.66 L Sodium Potassium Chloride Carbon Dioxide BUN Creatinine Glucose Calcium Total Bilirubin AST ALT Alkaline Phosphatase Lactate Dehydrogenase Total Protein Albumin Globulin 10/11/24 13:27 WBC 2.9 L Hgb 12.8 Hct 36.9 L Plt Count 160 Amelia % (Auto) Absolute Neuts (auto) 1.8 L Absolute Lymphs (auto) Sodium Potassium Chloride Carbon Dioxide BUN Creatinine Glucose Calcium Total Bilirubin AST ALT Alkaline Phosphatase Lactate Dehydrogenase Total Protein Albumin Globulin Exam Physical Exam Const alert, oriented x3 and no apparent distress General Appearance: cooperative and comfortable HEENT normocephalic, external ears normal and external nose normal Eyes PERRL, EOMs intact bilaterally, conjunctivae normal and no scleral icterus Neck supple Chest inspection of chest normal Resp normal respiratory effort and clear to auscultation bilaterally Cardio regular rate, regular rhythm, S1 normal heart sound, S2 normal heart sound and no murmurs Neuro oriented x3, CN's II-XII intact bilaterally and moves all extremities Psych mental status grossly normal Coding Level of Care Code Off vis,est,level 4 Exam Problem Focused Diagnoses Chronic leukopenia D72.819 Monocytosis D72.821 Assessment and Plan Assessment and Plan (1) Chronic leukopenia: Status: Chronic Comment: Associated with hypocellular bone marrow biopsy. Clinically stable. WBC 2.9 with ANC 1.8 today. Flow cytometry on 04/18/2024 showed no Immunophenotypic abnormalities. Had night sweats, no fever. Clinically stable. Plan: To continue observation. (2) Monocytosis: Status: Chronic Plan: Continue observation. 10/18/24 1147 D> Date _ Gene Braun MD Cosigner Signature: Date (if applicable) CC: Dr. Emily Sanders MD ~ [facility]09-09-2025 Progress note Author Gene Braun [facility] Note Date/Time October 18, 2024 11:47am [facility] [address] [place] [id number] OFFICE VISIT Date of Service: 10/18/24 1120 MR#: [id number] Acct: [id number] Name: VIOLET HERNANDEZ Rep #: [id number] : 1985 From: Gene Braun MD Age/Sex: 38/F [place] [facility] [place] Signed HPI Subjective Date of Service 10/18/24 Chief Complaint F/u for Leukopenia History of Present Illness 38-year-old woman was found to be leukopenic in 2008. Had bone marrow biopsy done at that time which was negative so stayed on observation. She remained leukopenic, moved to [facility], had another bone marrow biopsy on 01/25/2015. Pathology showed hypocellular marrow with normal cytogenetics and FISH. She moved to [place] and wanted her follow done here at [facility]. She is on observation, comes for follow up. Feels well. [facility] Medical History Lichen sclerosus NICA (obstructive sleep apnea) Costochondritis COELHO (nonalcoholic [...] Number of servings: 1 Intake Vital Signs 04/25/24 13:09 10/12/24 09:35 10/18/24 11:22 Height 4 ft 10 in 4 ft 10 in 4 ft 10 in Weight: 60.951 kg BMI 28.0 BP 125/75 H Blood Pressure Location Lt brachial Position Sitting Respiration 16 Pulse 53 L Pulse Source Monitor Temp 98.4 F Temperature Source Temporal Artery Pulse Oximetry (%) 99 Oxygen Delivery Method room air Intake Is patient in pain?: Yes (dental infection) Pain scale (1-10): 6 Allergies No Known Allergies Allergy (Verified 10/18/24 11:24) Medications ?Medication ?Instructions ?Recorded ?Confirmed ?Type docusate sodium 100 mg capsule 100 mg PO DAILY PRN con stipation 12/11/23 10/18/24 History (Stool Softener) albuterol sulfate 90 mcg/actuation 2 inh inhalation Q4 H PRN shortness 03/31/24 10/18/24 History aerosol inhaler of breath or wheezing cholecalciferol (vitamin D3) 50 50 mcg PO DAILY 10/18/24 History mcg (2,000 unit) tablet (D3 DOTS) estradiol 0.1 mg/24 hr semiweekly 1 patch topical SUWE 03/31/24 10/18/24 History transdermal patch (Shaye) fluvoxamine 100 mg tablet 100 mg PO DAILY 03/31/2411/03 History metronidazole 1 % topical gel 1 applic topical DAILY P RN 04/25/24 10/18/24 History Perioral detmatitis vitamin B complex 1 tab PO QDAY 04/27/2410/12 History rosuvastatin 10 mg tablet 5 mg (1/2 x 10 mg) PO DAILY 1 07/19/24 10/18/24 Rx month #30 tabs cetirizine 10 mg capsule 10 mg PO HS Seasonal allergi es 10/11/24 10/18/24 History clobetasol 0.05 % topical cream 1 applic topical BID 0 10/11/24 10/18/24 History hydrocortisone acetate 25 mg 25 mg PA QHS hemorrhoid # 12 ea 10/11/24 10/18/24 Rx rectal suppository (Anusol-HC) multivitamin 1 tab PO QAM 10/11/24 History resmetirom 80 mg tablet (Rezdiffra) 80 mg PO QDAY 04/0510/18/24 History mecobalamin (vitamin B12) 1,000 1,000 mcg PO QDAY 11/0310/18/24 History mcg chewable tablet (B12 Active) metronidazole 250 mg tablet 250 mg PO Q12H 10/18/24 History Laboratory Tests 03/09/22 03/16/23 03/19/24 10:20 13:32 13:55 WBC 2.5 L 3.0 L 2.7 L Hgb 12.7 12.5 12.4 Hct 36.8 L 37.9 37.6 Plt Count 135 L 133 L 130 L Amelia % (Auto) Absolute Neuts (auto) 1.4 L 1.9 L 1.4 L Absolute Lymphs (auto) Sodium 137 Potassium 4.1 Chloride 105 Carbon Dioxide 25.0 BUN 14 Creatinine 0.88 Glucose 85 Calcium 9.1 Total Bilirubin 0.30 AST 33 ALT 61 H Alkaline Phosphatase 67 Lactate Dehydrogenase 218 Total Protein 7.1 Albumin 3.8 Globulin 3.3 08/06/23 04/18/24 07/28/24 13:18 08:40 11:26 WBC 3.4 L 3.2 L 2.8 L Hgb 12.2 12.6 13.4 Hct 36.2 L 36.4 L Plt Count 133 L 159 158 Amelia % (Auto) 15.5 H Absolute Neuts (auto) 1.9 L 1.9 L 1.6 L Absolute Lymphs (auto) 0.85 0.66 L Sodium Potassium Chloride Carbon Dioxide BUN Creatinine Glucose Calcium Total Bilirubin AST ALT Alkaline Phosphatase Lactate Dehydrogenase Total Protein Albumin Globulin 10/11/24 13:27 WBC 2.9 L Hgb 12.8 Hct 36.9 L Plt Count 160 Amelia % (Auto) Absolute Neuts (auto) 1.8 L Absolute Lymphs (auto) Sodium Potassium Chloride Carbon Dioxide BUN Creatinine Glucose Calcium Total Bilirubin AST ALT Alkaline Phosphatase Lactate Dehydrogenase Total Protein Albumin Globulin Exam Physical Exam Const alert, oriented x3 and no apparent distress General Appearance: cooperative and comfortable HEENT normocephalic, external ears normal and external nose normal Eyes PERRL, EOMs intact bilaterally, conjunctivae normal and no scleral icterus Neck supple Chest inspection of chest normal Resp normal respiratory effort and clear to auscultation bilaterally Cardio regular rate, regular rhythm, S1 normal heart sound, S2 normal heart sound and no murmurs Neuro oriented x3, CN's II-XII intact bilaterally and moves all extremities Psych mental status grossly normal Coding Level of Care Code Off vis,est,level 4 Exam Problem Focused Diagnoses Chronic leukopenia D72.819 Monocytosis D72.821 Assessment and Plan Assessment and Plan (1) Chronic leukopenia: Status: Chronic Comment: Associated with hypocellular bone marrow biopsy. Clinically stable. WBC 2.9 with ANC 1.8 today. Flow cytometry on 04/18/2024 showed no Immunophenotypic abnormalities. Had night sweats, no fever. Clinically stable. Plan: To continue observation. (2) Monocytosis: Status: Chronic Plan: Continue observation. 10/18/24 1147 <Electronically signed by Gene Gomes> Date _ eGne Braun MD Cosigner Signature: Date (if applicable) CC: Dr. Emily Sanders MD ~ [place] [employer] Work Phone: 1(518) 813-227908-22-2025 Instructions* Patient Instructions* Sherly Ng APRN.[facility]ATHER - 09/30/2024 2:08 PM EDT - Take the Diflucan (fluconazole) tablet as prescribed to treat the presumed yeast infection. - Apply a very small, pea-sized amount of clobetasol ointment twice daily to the pale, itchy skin of your vulvar and rectal area for about 4 weeks. - After 4 weeks of twice-daily use, switch to once nightly for 4 weeks; then apply every other night for 4 weeks; finally taper to 1-2 times per week for ongoing maintenance. - Use a handheld mirror on a chair to gently spread your labia when applying the ointment so you can see the areas; mild burning during the first few nights is normal. - Schedule a follow-up visit in about two months to assess your response; if you do not see significant improvement or if symptoms worsen before then, please call our office sooner. Clobetasol ointment twice daily x 4 weeks then at night x 4 weeks then every other day x 4 weeks then taper to 1-2 times/week. Lichen Sclerosus Lichen means white and mosslike. Sclerosus means scarred. What is lichen sclerosus? This is a common disease of the genital skin in women. The areas involved are the vulva and laverne-anal area. The vulva is the skin located at the entrance to the vagina. The skin in this area is highly specialized in that it performs many unique functions and to do so contains many glands and nerve endings. The covering skin is specialized also - in some areas thick and resilient, and in others thin and more fragile. Lichen sclerosus usually occurs on the vulva but can occur anywhere on the body. It can start at any age (even in childhood) but most commonly affects women 40 to 50 years of age. In this condition, the vulvar skin usually becomes thin, white, and fragile. If there has been a lot of scratching, the skin is thick and may be scarred. The cause is unknown. Very rarely, there can be a familial occurrence. It is not infectious and is not sexually transmitted. What are the symptoms? Usually, it starts with itching or burning. Other symptoms include painful intercourse, splitting of the skin, and bleeding. With time, the vulvar skin changes and becomes progressively more thick and white, and the small lips (the labia minora) begin to shrink and eventually disappear. The clitoris may become buried in the shrinking skin folds, and these folds can close over it. Rarely, the vaginal opening gradually shrinks. If the area is very itchy, the skin may be white and very thickened. This itching may be severe enough to wake you up at night. Scratching often can cause bruising. In young children, this bruising can result in a mistaken diagnosis of sexual abuse. Scratching or any irritation worsens this condition. Can lichen sclerosus be treated? The diagnosis usually must be first confirmed with a biopsy, and then therapy can be started. Treatment usually involves a topical cream or ointment in addition to general measures. A strong topical [id number] used to stop the inflammation that is attacking the skin cells in this area,causing the whitish discoloration, thinning, splitting, and scarring. This cortisone is often combined with an anti-yeast product-nystatin (Mycostatin) or ketoconazol (Nizoral). The ointment(s) are used for 12 to 16 weeks on a regular basis and then further treatments are individualized. Continued long-term daily treatment with this medication is not possible because it can cause thinning of the skin itself. After 12 to 16 weeks, when the area has improved, treatment is used intermittently, 1 to 3 times per week as needed, or only when needed. What else can I do? Avoid harsh and irritating soaps, detergents, and tight synthetic clothing that may rub or irritatethe area. To cleanse, use a mild cleaning lotion like Cetaphil cleanser or a very mild bar cleanser such as Dove (unscented) or Basis. Try not to scratch. Avoid using panty liners. How long will therapy be needed? Lichen sclerosus can be controlled. There is no definitive cure. With the previously described form of therapy, improvement is quite rapid in most cases and some people have been so improved that no further treatment has been needed. It is too early to call those patients cured; only time will tell. Most patients require maintenance treatment, using the ointment once a week or on an intermittent basis. Regular follow-up is necessary. Can I become and deliver a baby? Lichen sclerosus does not prevent you from becoming . It does not affect any of the tissuesinside you. You can continue your treatment throughout your with the supervision of you doctor. Problems are usually few with vaginal delivery, unless you have a lot of extensive scarring. Does this condition lead to cancer? Up to 5% of patients have developed skin cancer in the vulvar area associated with lichen sclerosus. Usually, they have had the condition, untreated, for years. We hope that early recognition and aggressive treatment will reduce or eliminate the risk of cancer. That is the reason close follow-up isessential. [facility] NoteHNO ID: [id number] Author: SHERLY NG APRN.CNP Service: ? Author Type: Nurse Practitioner Type: Progress Notes Filed: 09/30/2024 17:19 Note Text: [employer] Supervisor offered:Patient declines Obstetrics and Gynecology [facility] [employer] Visit Subjective Recording using ambient Volley software for draft documentation of the visit was discussed with the patient/authorized field representative; all questions welcomed and answered. Patient/authorized field representative agreed to proceed CHIEF COMPLAINT: The patient is a 38-year-old female with a history of anxiety disorder presenting with pruritus in the vaginal and rectal areas. HPI: Vaginal and Rectal Pruritus - Onset earlier this summer, coinciding with warmer weather. - Symptoms worsen with heat, sweating, and at night. - Has tried various topical treatments, including coconut oil, Medicine Mama (a natural product with beeswax), and Desitin, with only temporary relief. - Noticed a white film on the skin in the affected areas, more pronounced when sweating. - Observed white patches of skin in the vaginal and rectal areas. - Reports light pink discharge when wiping, described as almost like it's got a little bit of blood in it. - Has been sexually active with her since the onset of symptoms, noting increased discomfort during intercourse despite using lubricant. - No history of eczema, lichen planus, or other skin conditions. - Last yeast infection was over 12 years ago, prior to the adoption of her 12-year-old son. Antibiotic Use - Recent courses of antibiotics: - Amoxicillin in mid-June for perioral dermatitis. - Ciprofloxacin at the end of August for a nail puncture injury. - Cephalexin on September 10 for a UTI. - Reports increased severity of itching following antibiotic treatments. HISTORY: OB History Gravida0 Para0 Term0 Preterm0 AB0 Living0 SAB0 IAB0 Ectopic0 Multiple0 Live Births0 Director Of Special Events History LMP: 06/09/2022 (Within Days), Hysterectomy Age at Menarche: 10 Age at First : Age at Menopause: Director Of Special Events History Comments: Sexual Activity: Yes; Male Contraception: Surgical PAST MEDICAL HISTORY Diagnosis Date Anxiety Depression Leukopenia Metabolic dysfunction-associated steatohepatitis (MASH) Mitral prolapse INCA (obstructive sleep apnea) 2024 mild, being fitted for oral device Premature ovarian failure PAST SURGICAL HISTORY Procedure Laterality Date BONE MARROW BIOPSY x 2 COLONOSCOPY SCREENING 11/05/2023 normal ORAL SURGERY PROCEDURE TLH W/T/O 250 G OR LESS 11/10/2023 TOTAL ABDOM HYSTERECTOMY 11/10/2023 FAMILY HISTORY Problem Relation Age of Onset Cataract Mother Macular Degen Mother Hypertension Father Diabetes Father T2DM No Known Problems Sister No Known Problems Brother Breast Cancer Maternal Grandmother 55 Skin Cancer Maternal Grandmother Diabetes Maternal Grandmother Heart disease Maternal Grandfather Heart disease Paternal Grandmother Stroke Paternal Grandfather SOCIAL HISTORY[1] Current Outpatient Medications Medication Sig rosuvastatin (CRESTOR) 10 mg tablet Take 0.5 tablets by mouth once daily. estradiol (SHAYE) 0.1 mg/24 hr patch APPLY 1 PATCH TOPICALLY TWICE A WEEK DIRECTED cyanocobalamin (VITAMIN B-12) 1,000 mcg tab Take 1,000 mcg by mouth once daily. multivit,thx,calcium,iron,mins (MULTIVITAMIN AND MINERAL ORAL) Take by mouth. vitamin E mixed/tocotrienol (VITAMIN E COMPLEX ORAL) Take 1 capsule by mouth once daily. fluvoxaMINE Maleate (LUVOX) 25 mg tablet Take 100 mg by mouth once daily. fluconazole (DIFLUCAN) 150 mg tablet Take 1 tablet by mouth one time only for 1 dose. clobetasol (TEMOVATE) 0.05 % ointment Apply 1 application to affected area as directed. TO AFFECTED AREA. Clobetasol ointment twice daily x 4 weeks then at night x 4 weeks then every other day x 4 weeks then taper to 1-2 times/week. ZINC ORAL Take by mouth. OTC PRODUCT Zenuim supplement No current facility-administered medications for this visit. ALLERGIES No Known Allergies REVIEW OF SYSTEMS: Gastrointestinal: (+) rectal pruritus, (+) rectal bleeding Genitourinary: (+) vaginal pruritus, (+) dyspareunia, (+) vaginal spotting Skin: (+) hypopigmented vulvar patches Objective SENSITIVE EXAM: The sensitive examination was discussed with the Patient or Patient's Authorized Roller Hand. As applicable, any other physician, advance practice provider, medical student, or other health professional student that will be observing or involved in the sensitive examination for educational or training purposes was discussed with the Patient or Authorized Roller Hand. The Patient or Authorized Roller Hand has agreed to proceed with the sensitive examination. (Sensitive examination includes inspection and/or palpation of the breasts, pelvis, prostate and anorectal regions). PHYSICAL EXAM: BP 96/60 Pulse 60 Resp 14 Ht 4' 10 (1.47m) Wt 134 lb (60.8kg) SpO2 (more content not included)...[facility]08-22-2025 History of Present illness Narrative* Sherly Ng APRN.WOOD LATHER - 09/30/2024 1:04 PM EDT Images from the original note were not included. Filter Press Supervisor offered:Patient declines Obstetrics and Gynecology [employer] Visit Subjective Recording using ambient Volley software for draft documentation of the visit was discussed with the patient/authorized field representative; all questions welcomed and answered. Patient/authorized field representative agreed to proceed CHIEF COMPLAINT: The patient is a 38-year-old female with a history of anxiety disorder presenting with pruritus in the vaginal and rectal areas. HPI: Vaginal and Rectal Pruritus - Onset earlier this summer, coinciding with warmer weather. - Symptoms worsen with heat, sweating, and at night. - Has tried various topical treatments, including coconut oil, Medicine Mama (a natural product with beeswax), and Desitin, with only temporary relief. - Noticed a white film on the skin in the affected areas, more pronounced when sweating. - Observed white patches of skin in the vaginal and rectal areas. - Reports light pink discharge when wiping, described as almost like it's got a little bit of blood in it. - Has been sexually active with her since the onset of symptoms, noting increased discomfort during intercourse despite using lubricant. - No history of eczema, lichen planus, or other skin conditions. - Last yeast infection was over 12 years ago, prior to the adoption of her 12-year-old son. Antibiotic Use - Recent courses of antibiotics: - Amoxicillin in mid-June for perioral dermatitis. - Ciprofloxacin at the end of August for a nail puncture injury. - Cephalexin on September 10 for a UTI. - Reports increased severity of itching following antibiotic treatments. HISTORY: OB History Gravida0 Para0 Term0 Preterm0 AB0 Living0 SAB0 IAB0 Ectopic0 Multiple0 Live Births0 Director Of Special Events History LMP: 06/09/2022 (Within Days), Hysterectomy Age at Menarche: 10 Age at First : Age at Menopause: Director Of Special Events History Comments: Sexual Activity: Yes; Male Contraception: Surgical PAST MEDICAL HISTORY Diagnosis Date Anxiety Depression Leukopenia Metabolic dysfunction-associated steatohepatitis (MASH) Mitral prolapse NICA (obstructive sleep apnea) 2024 mild, being fitted for oral device Premature ovarian failure PAST SURGICAL HISTORY Procedure Laterality Date BONE MARROW BIOPSY x 2 COLONOSCOPY SCREENING 11/05/2023 normal ORAL SURGERY PROCEDURE TLH W/T/O 250 G OR LESS 11/10/2023 TOTAL ABDOM HYSTERECTOMY 11/10/2023 FAMILY HISTORY Problem Relation Age of Onset Cataract Mother Macular Degen Mother Hypertension Father Diabetes Father T2DM No Known Problems Sister No Known Problems Brother Breast Cancer Maternal Grandmother 55 Skin Cancer Maternal Grandmother Diabetes Maternal Grandmother Heart disease Maternal Grandfather Heart disease Paternal Grandmother Stroke Paternal Grandfather SOCIAL HISTORY[1] Current Outpatient Medications Medication Sig rosuvastatin (CRESTOR) 10 mg tablet Take 0.5 tablets by mouth once daily. estradiol (SHAYE) 0.1 mg/24 hr patch APPLY 1 PATCH TOPICALLY TWICE A WEEK DIRECTED cyanocobalamin (VITAMIN B-12) 1,000 mcg tab Take 1,000 mcg by mouth once daily. multivit,thx,calcium,iron,mins (MULTIVITAMIN AND MINERAL ORAL) Take by mouth. vitamin E mixed/tocotrienol (VITAMIN E COMPLEX ORAL) Take 1 capsule by mouth once daily. fluvoxaMINE Maleate (LUVOX) 25 mg tablet Take 100 mg by mouth once daily. fluconazole (DIFLUCAN) 150 mg tablet Take 1 tablet by mouth one time only for 1 dose. clobetasol (TEMOVATE) 0.05 % ointment Apply 1 application to affected area as directed. TO AFFECTEDAREA. Clobetasol ointment twice daily x 4 weeks then at night x 4 weeks then every other day x 4 weeks then taper to 1-2 times/week. ZINC ORAL Take by mouth. OTC PRODUCT Zenuim supplement No current facility-administered medications for this visit. ALLERGIES No Known Allergies REVIEW OF SYSTEMS: Gastrointestinal: (+) rectal pruritus, (+) rectal bleeding Genitourinary: (+) vaginal pruritus, (+) dyspareunia, (+) vaginal spotting Skin: (+) hypopigmented vulvar patches Objective SENSITIVE EXAM: The sensitive examination was discussed with the Patient or Patient's Authorized Roller Hand. As applicable, any other physician, advance practice provider, medical student, or other health professional student that will be observing or involved in the sensitive examination for educational or training purposes was discussed with the Patient or Authorized Roller Hand. The Patient or Authorized Roller Hand has agreed to proceed with the sensitive examination. (Sensitive examination includes inspection and/or palpation of the breasts, pelvis, prostate and anorectal regions). PHYSICAL EXAM: BP 96/60 Pulse 60 Resp 14 Ht 4' 10 (1.47m) Wt 134 lb (60.8kg) SpO2 98% LMP 06/09/2022 BMI 28.01 kg/(m^2). GENERAL: Pleasant; no acute distress PULMONARY: normal inspiratory effort ABDOMEN: soft, non-tender, no masses : - PELVIC: external genitalia with vulvar and perianal hypopigmentation, partial labia minora agglutination, vulvar tenderness on palpation, thick, white, adherent vaginal discharge present, normal Bartholin's glands, urethra, Marquez's glands, no cervical lesions, good vaginal support - BIMANUAL: uterus normal size, shape and consistency, no adnexal masses, non-tender - Patient consent for exam received NEURO: alert and oriented x3 EXTREMITIES: normal Assessment & Plan ASSESSMENT AND PLAN: 1. Acute vaginitis (N76.0) 2. Vulvar itching (L29.2) - Likely candidal vaginitis and lichen sclerosus based on exam findings and history of recent antibiotic use (amoxicillin, ciprofloxacin, cephalexin). - Vaginal swab obtained for yeast and bacterial vaginosis testing. - Start Diflucan for presumed yeast infection. - Start clobetasol ointment BID for 4 weeks, then taper to nightly for 4 weeks, then every other night for 4 weeks, then 1-2 times per week; instructed to apply a small amount to affected vulvar and perianal areas. - Educated on lichen sclerosus, including chronic nature, need for long-term maintenance therapy, and increased risk of vulvar cancer with ongoing inflammation. - Advised to monitor for improvement and avoid abrupt discontinuation of clobetasol; provided written instructions. - FLUCONAZOLE 150 MG TABLET - JORDYN/TRICHOMONAS NAAT - BACTERIAL VAGINOSIS NAAT - Follow-up in 2 months to assess response; if no dramatic improvement, will consider biopsy to confirm diagnosis. Sherly Ng APRN.CNP Medical Decision Making: Problems: Moderate: New problem with uncertain prognosis Data: Unique test(s) ordered: 3+ Risk: Moderate: Drug management and Moderate risk from testing/treatment Medical Decision Making Level: 4 - Moderate [1] Social History Tobacco Use Smoking status: Never Smokeless tobacco: Never Vaping Use Vaping status: Never Used Substance Use Topics Alcohol use: Not Currently Drug use: [facility] Medical Records Department [address] [place] [address] Emergency Department Summary 09/10/24 MR#: [id number] Acct: [id number] Name: VIOLET HERNANDEZ Rep #: [id number] : 1985 38 From: Marvin Zepeda PCP: Dr. Emily Sanders MD Status:R EG ER Location: ED HPI History of Present Illness Chief Complaint: General Illness Informant: patient and parent Narrative Narrative: Here with mother for evaluation increasing fluttering in her chest this evening. It made her feel short of breath. No nausea or vomiting. States she has been having chills. Approximately week ago stepped on a nail on the right foot was seen in the ED tetanus updated just finished antibiotics of Cipro. States that time did have burning with urination but subsided. No cough no runny nose. Saw[facility] PCP yesterday for follow-up things healing appropriately. Denies any swelling or pain in the feet. History of anxiety has had similar symptoms however wanted make sure things were okay. No significant caffeine use history. Hysterectomy last year. Prior similar symptoms: Yes PFSH PFSH Medical History NICA (obstructive sleep apnea) [...] (urinary tract infection) Seasonal allergies Home Medications ?Medication ?Instructions ?Recorded ?Last Taken ?Type vitamin E (dl, acetate) 180 mg 400 units PO DAILY 03/12 06/29 Unknown History (400 unit) capsule docusate sodium 100 mg capsule 100 mg PO DAILY PRN con stipation 12/11/23 Unknown History (Stool Softener) albuterol sulfate 90 mcg/actuation 2 inh inhalation Q4 H PRN shortness 03/31/24 Unknown History aerosol inhaler of breath or wheezing cholecalciferol (vitamin D3) 50 50 mcg PO DAILY Unknown History mcg (2,000 unit) tablet (D3 DOTS) estradiol 0.1 mg/24 hr semiweekly 1 patch topical SUWE 03/31/24 Unknown History transdermal patch (Shaye) fluvoxamine 100 mg tablet 100 mg PO DAILY 03/31/24 Unk nown History metronidazole 1 % topical gel 1 applic topical DAILY P RN 04/25/24 Unknown History Perioral detmatitis vitamin B complex 1 tab PO QDAY 04/27/24 Unkno wn History rosuvastatin 10 mg tablet 5 mg (1/2 x 10 mg) PO DAILY 1 07/19/24 Unknown Rx month #30 tabs cetirizine 10 mg capsule 10 mg PO DAILY Seasonal kev rgies 09/09/24 Unknown History cephalexin 500 mg capsule 500 mg PO Q12 #14 CAPSULES 0 09/10/24 Unknown Rx Allergy/AdvReac Type Severity Reaction Status Date / Time No Known Allergies Allergy Verified 09/10/24 05:53 Family History Brother Anxiety Hypertension Sister Anxiety [...] 1 ROS ROS ED Constitutional Constitutional ED: Denies fever(s) Cardiovascular Cardiovascular: Reports palpitations; Denies chest pain Respiratory/Chest Respiratory/Chest: Reports dyspnea; Denies cough Gastrointestinal Gastrointestinal: Denies diarrhea or vomiting Musculoskeletal Musculoskeletal: Denies none Integumentary Denies rash or wounds Neurologic Neurologic: Denies weakness EXAM Physical Exam Const Vital Signs: 09/10/24 05:54 09/10/24 05:57 Temperature 98.4 F Temperature Source Oral Pulse Rate 52 L Respiratory Rate 16 Respiratory Effort Normal Non-Labored Respiratory Pattern Normal Blood Pressure 134/59 H Blood Pressure Mean 84 Pulse Ox 100 Oxygen Delivery Method Room Air Positive well nourished and well developed General Appearance ED: well developed and NAD HEENT Reports moist mucous membranes normocephalic and atraumatic Eyes General Eye ED: Yes normal appearance of both eyes Neck full ROM Chest Wall Chest: Negative for tenderness Resp normal respiratory effort and normal air movement Effort and Inspection: symmetric chest movement; Negative for respiratory distress Cardio regular rhythm and no murmurs Rate: bradycardia Peripheral Pulses: pulses 2+ throughout GI normal to inspection, nondistended, normoactive bowel sounds and non-tender Palpation: Negative for guarding or rebound tenderness present Extremity normal to inspection General Extremety ED: Negative for edema or tenderness General Extremity: Negative for edema Neuro oriented x3 and no sensory deficits noted Sensorium / Orientation: awake and alert Skin Skin Narrative: Base of foot plantar aspect peeling skin however no erythema no drainage nontender. No swelling of the foot MDM MDM MDM Narrative Medical decision making narrative: Interventions / MDM: Differential diagnosis: Palpitations, UTI, Diagnosis considered but do not suspect: Pulmonary embolism however PERC criteria negative. Electrolyte abnormalities however labs are normal. My EKG interpretation: Sinus rhythm 63, no ST or T wave changes QTc 444. Imaging independently reviewed and interpreted by myself: N/A External documents reviewed: Seen in the ED a week ago foot x-ray negative started on Cipro. Test considered but not ordered:N/A ED course: Reports social fluttering causing dyspnea. Reporting some paresthesias likely from her breathing fast at home or anxiety. Heart rate in the monitor 50s to low 60s. Sinus rhythm. For recentchills and urine symptoms. Will check EKG basic labs and urine. Will reevaluate. Urine with signs of infection, also symptomatic. With her finishing Cipro having symptoms we will send for culture. Will start Keflex. Labs are stable. Reassuring findings close with patient possibleoutpatient Holter monitor reviewed with For which she had before. All questions were answered. Re-evaluation: stable Disposition discussed with patient/family/significant other: Patient and mother Case discussed with consulting clinician: N/A This note was generated with mGaadi dictation software. It may contain incorrectwords, spelling, and punctuation that were not noted in checking the note beforesigning. Lab Data Attestation: I reviewed the patient's lab results. Labs: Laboratory Results - last 24 hr 09/10/24 09/10/24 06:26 06:42 WBC 3.7 L RBC 3.77 L Hgb 13.2 Hct 37.7 MCV 100.0 H MCH 35.0 H MCHC 35.0 RDW Std Deviation 53.2 H RDW Coeff of Kristy 14.5 Plt Count 159 MPV 11.0 Immature Gran % (Auto) 0.300 Neut % (Auto) 53.4 Lymph % (Auto) 27.9 Amelia % (Auto) 14.8 H Eos % (Auto) 3.3 Baso % (Auto) 0.3 Absolute Neuts (auto) 2.0 Absolute Lymphs (auto) 1.02 Nucleated RBC % 0 Sodium 141 Potassium 4.0 Chloride 104 Carbon Dioxide 24.4 Anion Gap 12 BUN 12 Creatinine 0.83 Estim Creat Clear Calc 74.27 Est GFR (MDRD) Non-Af 92 BUN/Creatinine Ratio 14.6 Glucose 97 Calcium 9.2 Urine Color Yellow Urine Clarity Clear Urine pH 7.0 Ur Specific [place] 1.010 Urine Protein 15 H Urine Glucose (UA) Normal Urine Ketones Negative Urine Occult Blood Negative Urine Nitrite Negative Urine Bilirubin Negative Urine Urobilinogen Normal Ur Leukocyte Esterase 500 H Urine RBC 0 SEEN Urine WBC 10-25 SEEN Ur Squamous Epith Cells 5-10 SEEN Urine Bacteria 0 SEEN Urine Mucus 0 SEEN Discharge Plan Triage Chief Complaint: General Illness ED Provider: Marvin Edouard Dx/Rx/DC Orders Clinical Impression: Palpitations, Nonrheumatic mitral (valve) prolapse, UTI (urinary tract infection) Instructions: Urinary Tract Infections in Women, ED Palpitations Prescriptions: New cephalexin 500 mg capsule 500 mg PO Q12 Qty: 14 0RF No Action metronidazole 1 % gel 1 applic topical DAILY PRN vitamin B complex Tablet 1 tab PO QDAY Rx Instructions: pt reports she takes one B complex gummy per day, unsure on strength rosuvastatin 10 mg tablet 5 mg PO DAILY 30 Days Qty: 30 4RF cetirizine 10 mg capsule 10 mg PO DAILY vitamin E (dl, acetate) 400 UNITS capsule 400 units PO DAILY docusate sodium [Stool Softener] 100 mg capsule 100 mg PO DAILY PRN (Reason: constipation) Patient Comments: Over the counter estradiol [Shaye] 0.1 mg/24 hr patch semiweekly 1 patch topical SUWE fluvoxamine 100 mg tablet 100 mg PO DAILY albuterol sulfate 90 mcg/actuation HFA aerosol inhaler 2 inh INHALATION Q4H PRN (Reason: shortness of breath or wheezing) Patient Comments: [NO ORIGINAL SIG] cholecalciferol (vitamin D3) [D3 DOTS] 50 mcg (2,000 unit) tablet 50 mcg PO DAILY Primary Care Provider: Emily Sanders Referrals: Emily Sanders MD [Primary Care Provider] - 1 Week Activity Restrictions/Additional Instructions: EKG normal no heart blocks rate in the 60s. The monitor area run in the 40s and50s. Labs are stableurine did note signs of infection. Culture sent. Take antibiotic as prescribed. Follow-up with yourdoctor for reevaluation and further testing as needed. Print Language: Nepalese Disposition Disposition: Home, Self Care What to do if you have Problems For any increased pain, shortness of breath, bleeding, nausea or vomiting, chestpain, or any unexpected problems, contact your Primary Care Provider. Call [facility] ([phone]) or report tothe closest Emergency Room. Call 911 if necessary. 09/10/24 0737 Cosigner Signature (if applicable): CC: Dr. Emily Sanders MD ~ Signed [facility]07-26-2025 Radiology Diagnostic study note [facility] Imaging Services [address], [place] [address] Foot min 3 Views MR#: [id number] Acct: [id number] Name: VIOLET HERNANDEZ Rep #: [id number] : 1985 F 38 From: Krishna Mcdonough MD PCP: Dr. Emily Sanders MD Status: R ER Study:Foot min 3 Views Date of Exam: Exam# [id number] Ordering Dr: Zuleyka Worley PROCEDURE: FOOT MIN 3 VIEWS 09/03/2024 REASON FOR EXAM: PAIN TECHNIQUE: FOOT MIN 3 VIEWS COMPARISON: None. FINDINGS: Bones: No acute bony abnormalities. Joints: No dislocations. Soft tissues: No soft tissue abnormalities. RAD/Foot min 3 Views IMPRESSION: No acute osseous abnormalities. Reading Location: [facility] CC: Dr. Emily Sanders MD; ELIZABETH Argueta ~ Roof Truss Detailer: Signed [facility]06-10-2025 Evaluation note* Diagnosis Onset Date Resolution Status Admit Date Drug-induced liver injury acute July 19, 2024 12:01pm Elevated liver enzymes acute Ju 2024 12:01pm 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 July 12:01pm Chronic leukopenia chronic July 102024 11:15am Monocytosis chronic July 28 11:15am Puncture wound of right foot inactiv e September 09, 2024 12:14pm Bradycardia acute September 23, 2024 8:53am NICA (obstructive sleep apnea) acute September 23, 2024 8:53am Palpitations acute September 23, 2024 8:53am Chest pain, unspecified chronic A ugust 2024 8:53am Lymphopenia acute October 1:14pm Chronic leukopenia chronic 2024 1:14pm Rectal bleeding acute October 11, 2024 2:56pm Rectal itching acute October 11, 2024 2:56pm Rectal pain acute October 2:56pm Drug-induced liver injury acute October 12, 2024 9:30am Elevated transaminase level acute October 12, 2024 9:30am 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 October 12, 2024 9:30am Chronic leukopenia chronic 2024 11:15am Monocytosis chronic October 11:15am NICA (obstructive sleep apnea) acute October 21, 2024 9:37am Palpitations acute October 212024 9:37am Rectal bleeding acute October 31, 2024 8:20am Rectal itching acute October 31, 2024 8:20am Rectal pain acute October 8:20am [facility] Work Phone: 1(265) 441-997106-06-2025 Note* Exam Date Time Procedure Performing Provider Status 07/15/24 4:20 PM MRI [facility] LIENTHAO Ramires MD; Auth (V erified) [id number] ORIGINAL EXAMINATION: MRCP 07/15/2024 4:21 pm TECHNIQUE: [...] Sign Date: 07/15/2024 4:28:26 PM Ordering Provider: [facility]05-21-2025 Evaluation note* Diagnosis Onset Date Resolution Status [...] 11:15am Chronic leukopenia chronic July 102024 11:15am [facility] Work Phone: 1(115) 792-889405-21-2025 Evaluation note* Diagnosis Onset Date Resolution Status Admit Date Common bile duct dilation acute June 29, 2024 8:01am Elevated alkaline phosphatas e level acute June 29, 2024 8 :01am Elevated transaminase level acute June 29, 2024 8:01am COELHO (nonalcoholic steatohepatitis) chronic June 29, 2024 8:01am Drug-induced liver injury acute July 19, 2024 12:01pm Elevated liver enzymes acute Ju ne 2024 12:01pm Metabolic dysfunction-associ ated steatohepatitis (MASH) chronic July 12:01pm Chronic leukopenia chronic July 102024 11:15am Monocytosis chronic July 28 11:15am Lymphopenia acute July 28 11:15am Chronic leukopenia chronic July 102024 11:15am Puncture wound of right foot acute September 09, 2024 12:14pm [facility] Work Phone: 1(720) 784-464305-21-2025 Evaluation note* Diagnosis Onset Date Resolution Status Admit Date Common bile duct dilation acute June 29, 2024 8:01am Elevated alkaline phosphatas e level acute June 29, 2024 8 :01am Elevated transaminase level acute June 29, 2024 8:01am COELHO (nonalcoholic steatohepatitis) chronic June 29, 2024 8:01am Drug-induced liver injury acute July 19, 2024 12:01pm Elevated liver enzymes acute Ju ne 2024 12:01pm Metabolic dysfunction-associ ated steatohepatitis (MASH) chronic July 12:01pm Chronic leukopenia chronic July 102024 11:15am Monocytosis chronic July 28 11:15am Lymphopenia acute July 28 11:15am Chronic leukopenia chronic July 102024 11:15am Puncture wound of right foot inactiv e September 09, 2024 12:14pm Bradycardia acute September 23, 2024 8:53am Palpitations acute September 23, 2024 8:53am Chest pain, unspecified chronic A ugust 2024 8:53am [facility] Work Phone: 1(945) 545-185905-21-2025 Evaluation note* Diagnosis Onset Date Resolution Status Admit Date Common bile duct dilation acute June 29, 2024 8:01am Elevated alkaline phosphatas e level acute June 29, 2024 8 :01am Elevated transaminase level acute June 29, 2024 8:01am COELHO (nonalcoholic steatohepatitis) chronic June 29, 2024 8:01am Drug-induced liver injury acute July 19, 2024 12:01pm Elevated liver enzymes acute Ju ne 2024 12:01pm Metabolic dysfunction-associ ated steatohepatitis (MASH) chronic July 12:01pm Chronic leukopenia chronic July 102024 11:15am Monocytosis chronic July 28 11:15am Lymphopenia acute July 28 11:15am Chronic leukopenia chronic July 102024 11:15am Puncture wound of right foot inactiv e September 09, 2024 12:14pm Bradycardia acute September 23, 2024 8:53am NICA (obstructive sleep apnea) acute September 23, 2024 8:53am Palpitations acute September 23, 2024 8:53am Chest pain, unspecified chronic A ugust 2024 8:53am [facility] Work Phone: 1(662) 470-209605-21-2025 Evaluation note* Diagnosis Onset Date Resolution Status [...] 102024 11:15am Monocytosis chronic July 28 11:15am Puncture wound of right foot inactiv e September 09, 2024 12:14pm Bradycardia acute September 23, 2024 8:53am NICA (obstructive sleep apnea) acute September 23, 2024 8:53am Palpitations acute September 23, 2024 8:53am Chest pain, unspecified chronic A ugust 2024 8:53am Lymphopenia acute October 1:14pm Chronic leukopenia chronic 2024 1:14pm Rectal bleeding acute October 11, 2024 2:56pm Rectal itching acute October 11, 2024 2:56pm Rectal pain acute October 2:56pm [facility] Work Phone: 1(154) 800-495005-21-2025 Evaluation note* Diagnosis Onset Date Resolution Status Admit Date Common bile duct dilation acute June 29, 2024 8:01am Elevated alkaline phosphatas e level acute June 29, 2024 8 :01am Elevated transaminase level acute June 29, 2024 8:01am COELHO (nonalcoholic steatohepatitis) chronic June 29, 2024 8:01am Drug-induced liver injury acute July 19, 2024 12:01pm Elevated liver enzymes acute Ju ne 2024 12:01pm 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 July 12:01pm Chronic leukopenia chronic July 102024 11:15am Monocytosis chronic July 28 11:15am Puncture wound of right foot inactiv e September 09, 2024 12:14pm Bradycardia acute September 23, 2024 8:53am NICA (obstructive sleep apnea) acute September 23, 2024 8:53am Palpitations acute September 23, 2024 8:53am Chest pain, unspecified chronic A ugust 2024 8:53am Lymphopenia acute October 1:14pm Chronic leukopenia chronic Sept2024 1:14pm Rectal bleeding acute October 11, 2024 2:56pm Rectal itching acute October 11, 2024 2:56pm Rectal pain acute October 2:56pm Drug-induced liver injury acute October 12, 2024 9:30am 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 October 12, 2024 9:30am [facility] Work Phone: 1(155) 994-894405-21-2025 Evaluation note* Diagnosis Onset Date Resolution Status Admit Date Common bile duct dilation acute June 29, 2024 8:01am Elevated alkaline phosphatas e level acute June 29, 2024 8 :01am Elevated transaminase level acute June 29, 2024 8:01am COELHO (nonalcoholic steatohepatitis) chronic June 29, 2024 8:01am Drug-induced liver injury acute July 19, 2024 12:01pm Elevated liver enzymes acute Ju ne 2024 12:01pm 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 July 12:01pm Chronic leukopenia chronic July 102024 11:15am Monocytosis chronic July 28 11:15am Puncture wound of right foot inactiv e September 09, 2024 12:14pm Bradycardia acute September 23, 2024 8:53am NICA (obstructive sleep apnea) acute September 23, 2024 8:53am Palpitations acute September 23, 2024 8:53am Chest pain, unspecified chronic A ugust 2024 8:53am Lymphopenia acute October 1:14pm Chronic leukopenia chronic 2024 1:14pm Rectal bleeding acute October 11, 2024 2:56pm Rectal itching acute October 11, 2024 2:56pm Rectal pain acute October 2:56pm Drug-induced liver injury acute October 12, 2024 9:30am Elevated transaminase level acute October 12, 2024 9:30am 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 October 12, 2024 9:30am Chronic leukopenia chronic 2024 11:15am Monocytosis chronic October 11:15am [place] [employer] Work Phone: 1(368) 843-249305-21-2025 Evaluation note* Diagnosis Onset Date Resolution Status [...] 102024 11:15am Monocytosis chronic July 28 11:15am Puncture wound of right foot inactiv e September 09, 2024 12:14pm Bradycardia acute September 23, 2024 8:53am NICA (obstructive sleep apnea) acute September 23, 2024 8:53am Palpitations acute September 23, 2024 8:53am Chest pain, unspecified chronic A ugust 2024 8:53am Lymphopenia acute October 1:14pm Chronic leukopenia chronic 2024 1:14pm Rectal bleeding acute October 11, 2024 2:56pm Rectal itching acute October 11, 2024 2:56pm Rectal pain acute October 2:56pm Drug-induced liver injury acute October 12, 2024 9:30am Elevated transaminase level acute October 12, 2024 9:30am 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 Emily Sanders MD Status: R EG CLI Study:ABD Limited w/ Elastography Date of Exa m: 06/27/24 Exam# [id number] Ordering Dr: Carlos Boogie MD PROCEDURE: ABD [...] Elastography: EQI Med: 6.8 kPa EQI Med Boy: 1.5 m/s IQR/Med: 7.5 %* GALLBLADDER: Normal COMMON BILE DUCT: Dilated measuring up to 8.8 mm . PANCREAS: Normal Visualized portions of the right kidney are unremarkable. No right upper quadrant ascites. US/ABD Limited w/ Elastography IMPRESSION: Ntly-gu-hbyatkaw HEPATIC FIBROSIS Reference Values: SRU <1.37 m/s [...] measurement may be in question. Reading Location: [facility] CC: Dr. Emily Sanders MD; Dr. Jorgito Boogie MD ~ Roof Truss Detailer: Signed [facility]04-28-2025 Telephone encounter Note* Telephone Encounter - Janette [...] Department Center 11/03/2024 2:50 PM SCREEN MAMMO [facility] 05/23/2025 10:30 AM Ng, JESSICA Dubois Appointment scheduled: No follow-up visit currently scheduled. Action taken: Refill request routed to clinician Janette Bullock RN June 06, 2024 2:13 PM [facility]04-28-2025 Miscellaneous Notes* Telephone Encounter - Janette Bullock [...] Department Center 11/03/2024 2:50 PM SCREEN MAMMO [facility] Masood Mcmillan 05/23/2025 10:30 AM Sherly Ng APRN.CNP [facility] [place] Appointment scheduled: No follow-up visit currently scheduled. Action taken: Refill request routed to clinician Janette Bullock RN June 06, 2024 2:13 PM documented in this encounterC[facility]04-[facility] Instructions* Patient Instructions* Sherly Ng APRN.CNP - 05/20/2024 4:36 PM EDT Silicone based lubricant documented in this encounterC[facility]04-[facility]-2025 NoteHNO ID: [id number] Author: SHERLY NG APRN.CNP Service: ? Author Type: Nurse Practitioner Type: Progress Notes Filed: 05/20/2024 19:27 Note Text: Filter Press Supervisor offered: Patient declines. Violet is a 38 [...] discussed with the Patient or Patient's Authorized Roller Hand. As applicable, any other physician, advance practice provider, medical student, or other health professional student that will be observing or involved in the sensitive examination for educational or training purposes was discussed with the Patient or Authorized Roller Hand. The Patient or Authorized Roller Hand has agreed to proceed with the sensitive [...] external genitalia normal, normal Bartholin's glands, urethra, Marquez's glands, no vulvar lesions, good vaginal support, [...] liver enzymes before refills - PCP at [place] 4) Contraception: hysterectomy. Contraceptive options reviewed and information provided. 5) STD screening: Declined STD check. 6) Follow up one year or sooner as needed Sherly Ng APRN.[facility]04-11-2025 History of Present illness Narrative* Sherly Ng APRN.[employer] - 05/20/2024 4:05 PM EDT Filter Press Supervisor offered: Patient declines. Violet is a 38 [...] discussed with the Patient or Patient's Authorized Roller Hand. As applicable, any other physician, advance practice provider, medical student, or other health professional student that will be observing or involved in the sensitive examination for educational or training purposes was discussed with the Patient or Authorized Roller Hand. The Patient or Authorized Roller Hand has agreed to proceed with the sensitive [...] external genitalia normal, normal Bartholin's glands, urethra, Marquez's glands, no vulvar lesions, good vaginal support, [...] Z79.890 - has fatty liver disease - Mesfin-claudine - does not need refill at this time. Should review liver enzymes [facility] [place] [facility] Contraception: hysterectomy. Contraceptive options reviewed and information provided. 5) STD screening: Declined STD check. 6) Follow up one year or sooner as needed Sherly Ng APRN.WOOD LATHER documented in this encounterC[facility]02-24-[facility] Evaluation note* Diagnosis Onset Date Resolution Status [...] sleep apnea) acute April 27, 2024 7:46am [facility] Work Phone: 1(436) 941-981702-24-2025 Evaluation note* Diagnosis Onset Date Resolution Status [...] (nonalcoholic steatohepatitis) chronic June 29, 2024 8:01am [facility] Work Phone: 1(744) 896-793702-24-2025 Evaluation note* Diagnosis Onset Date Resolution Status [...] 19, 2024 12:01pm Elevated liver enzymes acute [facility] 2024 12:01pm 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 July 12:01pm [facility] Work Phone: 1(526) 340-216702-24-2025 Evaluation note* Diagnosis Onset Date Resolution Status Admit Date Costochondritis acute April 04, 2024 9:10am Hypersomnolence chronic April 04, 2024 9:10am Influenza A inactive March 9:10am Chronic leukopenia chronic April 25, 2024 12:56pm Monocytosis chronic April 25 12:56pm Dysuria acute April 27 7:46am NICA (obstructive sleep apnea) acute April 27, 2024 7:46am Common bile duct dilation acute June 29, 2024 8:01am Elevated alkaline phosphatas e level acute June 29, 2024 8 :01am Elevated transaminase level acute June 29, 2024 8:01am COELHO (nonalcoholic steatohepatitis) chronic June 29, 2024 8:01am Drug-induced liver injury acute July 19, 2024 12:01pm Elevated liver enzymes acute [facility] 2024 12:01pm 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 CSN:[id number] PCP: Emily Sanders MD ALL: No Known [...] wheezing or shortnessof breath. 18 g 0 cxxwarlzciiaadj-uifqhikky-GC 2-30-10 mg/5 mL syrup Take 5 mL [...] and frontal sinus tenderness present. Mouth/Throat: Lips: [place]. Mouth: Mucous membranes are moist. Pharynx: Uvula [...] Those SDOH influencing Violet's care are: none UC COURSE/MEDICAL DECISION MAKING: Violet is a 38 y.o., who presents with a working diagnosis of 1. Influenza A 2. Acute cough Violet was seen today for flu symptoms. Diagnoses and all orders for this visit: Influenza A (Primary) - wgeehtxfxknatxo-xcytsmwsk-GR 2-30-10 mg/5 mL syrup; Take 5 mL [...] with plan of care. Valentine Roth APRN, DNP Advanced Practice Provider [facility] Please note: While the patient may or may not have received printed discharge paperwork, all relevant medical findings, test results, and treatment details are accessible through the electronic medical record system. The patient is encouraged to review their chart via the patient portal for comprehensive information and follow-up instructions. documented in this [facility] Work Phone: 1(145) 877-385101-02-2025 NoteHNO ID: [id number] Author: LEO BARNETT MD Service: ? Author [...] with Dr. Boogie. Pt doing well s/p [facility] BSO. OB History T0 L0 SAB0 IAB0 Ectopic0 Multiple0 Live Births0 Director Of Special Events History LMP: 06/09/2022 (Within Days), Hysterectomy Age at Menarche: Age at First : Age at Menopause: Director Of Special Events History Comments: Sexual Activity: Yes; Male Contraception: Pill PAST MEDICAL HISTORY Diagnosis Date Anxiety Depression Leukopenia Mitral prolapse Premature ovarian failure PAST SURGICAL HISTORY Procedure Laterality Date BONE MARROW BIOPSY x 2 COLONOSCOPY SCREENING 11/05/2023 ORAL SURGERY PROCEDURE [facility] W/T/O 250 G OR LESS 11/10/2023 [...] which included preparing to see the patient, hjqa-zi-vsji patient care, completing clinical documentation, obtaining and/or reviewing separately obtained history, performing a medically appropriate examination, and counseling and educating the patient/family/caregiver. Leo Abdi [facility]01-02-2025 History of Present illness Narrative* Leo [...] with Dr. Boogie. Pt doing well s/p [facility] BSO. OB History T0 L0 SAB0 IAB0 Ectopic0 Multiple0 Live Births0 Director Of Special Events History LMP: 06/09/2022 (Within Days), Hysterectomy Age at Menarche: Age at First : Age at Menopause: Director Of Special Events History Comments: Sexual Activity: Yes; Male Contraception: [...] which included preparing to see the patient, ryvm-aw-[id number] patient care, completing clinical documentation, obtaining and/or reviewing separately obtained history, performing a medically appropriate examination, and counseling and educating the patient/family/caregiver. Leo Abdi MD documented in this encounterC[facility]12-06-2024 NoteHNO ID: [id number] Author: LEE KATZ DO Service: ? Author Type: Physician Type: Progress Notes Filed: 01/19/2024 13:58 Note Text: [facility] SECTION FOR MINIMALLY INVASIVE GYNECOLOGIC SURGERY OUTPATIENT [...] at her post op appointment with the WELL DRILL OPERATOR HELPER CABLE TOOL on 12/17/2023 was told on her Vaginal [...] and pt agrees with plan Lee Katz [facility]12-06-2024 History of Present illness Narrative* Lee Katz, DO - 01/15/2024 1:48 PM EST Images from the original note were not included. [facility] SECTION FOR MINIMALLY INVASIVE GYNECOLOGIC SURGERY OUTPATIENT [...] at her post op appointment with the [facility] D[employer]LL OPERATOR [employer] CABLE TOOL on 12/17/2023 was told on her Vaginal [...] plan Lee Katz DO documented in this encounterC[facility]11-21-2024 Evaluation note* Diagnosis Onset Date Resolution Status Admit Date COELHO (nonalcoholic steatohepatitis) chronic December 31, 2023 3:56pm Osteopenia chronic December 31, 2023 3:56pm Costochondritis acute April 04, 2024 9:10am Hypersomnolence chronic April 04, 2024 9:10am Influenza A inactive March 9:10am [facility] Work Phone: 1([phone]) 868-506011-07-2024 NoteHNO ID: [id number] Author: YENNIFER TOMAS APRN.[facility]ER Service: ? Author Type: Nurse Practitioner Type: Progress Notes Filed: 12/17/2023 15:51 Note Text: [facility] Department of Benign Gynecology [facility] PATIENT NAME: Violet Hernandez PCP: [...] L0 SAB0 IAB0 Ectopic0 Multiple0 Live Births0 Director Of Special Events History LMP: 06/09/2022 (Within Days), Hysterectomy Age at Menarche: Age at First : Age at Menopause: Director Of Special Events History Comments: Sexual Activity: Yes; Male Contraception: Pill PAST MEDICAL HISTORY Diagnosis Date Anxiety Depression Leukopenia Mitral prolapse Premature ovarian failure PAST SURGICAL HISTORY Procedure Laterality Date BONE MARROW BIOPSY x 2 COLONOSCOPY SCREENING 11/05/2023 ORAL SURGERY PROCEDURE [facility] W/T/O 250 G OR LESS 11/10/2023 PHYSICAL EXAM: The sensitive examination was discussed with the Patient or Patient's Authorized Roller Hand. As applicable, any other physician, advance practice provider, medical student, or other health professional student that will be observing or involved in the sensitive examination for educational or training purposes was discussed with the Patient or Authorized Roller Hand. The Patient or Authorized Roller Hand has agreed to proceed with the sensitive examination. (Sensitive examination includes inspection and/or palpation of the breasts, pelvis, prostate and anorectal regions) Filter Press Supervisor offered: Patient accepts, visit chaperoned by Pete [...] Keep upcoming appointment with Dr. Mikie Tomas APRN.WOOD LATHER December 17, 2023 3:14 [facility]11-07-2024 History of Present illness Narrative* Yennifer Tomas APRN.WOOD LATHER - 12/17/2023 3:14 PM EST Images from the original note were not included. [facility] Department of Benign Gynecology [facility] PATIENT NAME: Violet Hernandez PCP: [...] L0 SAB0 IAB0 Ectopic0 Multiple0 Live Births0 Director Of Special Events History LMP: 06/09/2022 (Within Days), Hysterectomy Age at Menarche: Age at First : Age at Menopause: Director Of Special Events History Comments: Sexual Activity: Yes; Male Contraception: Pill PAST MEDICAL HISTORY Diagnosis Date Anxiety Depression Leukopenia Mitral prolapse Premature ovarian failure PAST SURGICAL HISTORY Procedure Laterality Date BONE MARROW BIOPSY x 2 COLONOSCOPY SCREENING 11/05/2023 ORAL SURGERY PROCEDURE [facility] W/T/O 250 G OR LESS 11/10/2023 PHYSICAL EXAM: The sensitive examination was discussed with the Patient or Patient's Authorized Roller Hand. Asapplicable, any other physician, advance practice provider, medical student, or other health professional student that will be observing or involved in the sensitive examination for educational or training purposes was discussed with the Patient or Authorized Roller Hand. The Patient or Authorized Roller Hand has agreed to proceed with the sensitive examination. (Sensitive examination includes inspection and/or palpation of the breasts, pelvis, prostate and anorectal regions) Filter Press Supervisor offered: Patient accepts, visit chaperoned by Pete [...] Keep upcoming appointment with Dr. Mikie Tomas APRN.WOOD LATHER December 17, 2023 3:14 PM * Pete Gill MA - 12/17/2023 3:09 PM EST Exam chaperoned by Pete Gill MA December 17, 2023 3:10 PM documented in this encounterC[facility]11-07-2024 NoteHNO ID: [id number] Author: PETE GILL MA Service: ? Author Type: Jacquard Loom Card Changer Type: Progress Notes Filed: 12/17/2023 15:51 Note Text: Exam chaperoned by Pete Gill MA December 17, 2023 3:10 [facility]10-29-2024 Telephone encounter Note* Telephone Encounter - Steph Randall RN - 12/08/2023 11:39 AM EDT Pt missed her vaginal cuff check. Needs to reschedule. Steph Randall RN [facility]10-29-2024 Miscellaneous Notes* Telephone Encounter - Steph Randall RN - 12/08/2023 11:39 AM EDT Pt missed her vaginal cuff check. Needs to reschedule. Steph Randall RN documented in this encounterC[facility]10-27-2024 Telephone encounter Note * Telephone Encounter - Lee Beltre MD - 12/06/2023 2:36 PM EDT Telephone Encounter Violet Hernandez [id number] Provider: Dr. Katz Surgery: TLH, BSO, cysto [...] Ms. Hernandez a follow up appointment with [facility] this week. Counseled gaming commissioner-back precautions including persistent or worsening of symptoms. [...] decide to go the ED. Discussed with [facility] fellow, Dr. Weston. Lee Beltre MD 12/06/23 2:36 PM [facility] Work Phone: 1(994) 229-970810-27-2024 Miscellaneous Notes* Telephone Encounter - Lee Beltre MD - 12/06/2023 2:36 PM EDT Telephone Encounter Violet Hernandez [id number] Provider: Dr. Katz Surgery: TLH, BSO, cysto [...] Ms. Hernandez a follow up appointment with [facility] this week. Counseled gaming commissioner-back precautions including persistent or worsening of symptoms. [...] decide to go the ED. Discussed with [facility] fellow, Dr. Weston. Lee Beltre MD 12/06/23 2:36 PM documented in this encounterC[facility]10-15-2024 NoteHNO ID: [id number] Author: YENNIFER TOMAS APRN.WOOD LATHER Service: ? Author Type: Nurse Practitioner Type: Progress Notes Filed: 11/24/2023 16:03 Note Text: [facility] Department of Minimally Invasive POLICE SERGEANT PRECINCT Surgery [facility] PATIENT NAME: Violet Hernandez DATE: 11/24/2023 Patient Name and verified: Yes Patient Location: [place] This Virtual Visit was completed using My Chart Zoom platform. I have communicated my name and active licensure. The patient's identity and physical location were verified at the time of this visit. Either the patient or their legal field representative has been informed of the risks and benefits of -- and alternatives to -- treatment through a remote evaluation and consents to proceed with the evaluation remotely. Chief Complaint CC/REASON FOR VISIT: Post Op History of Present Illness: Violet is a 38 year old who presents for a post op [facility] visit. SURGERY AND DATE: 11/10/2023 [facility]-BS with Dr. Katz PATHOLOGY: FINAL DIAGNOSIS [...] mouth once daily. Start oral estrogen. Send Probity message if vaginal issue is not resolved. May benefit from Vaginal estrogen as well 1) Discussed results of pathology and implications with patient. 2) Postop restrictions and wound care reviewed. 3) Keep follow up with Dr. Katz on 01/15/2024. Appointments for Next 60 Days Date Time Provider Location Dept Phone 11/24/2023 4:00 PM YENNIFER TOMAS [facility] [phone] 01/15/2024 1:45 PM LEE KATZ [phone] SIGNATURE: Yennifer Tomas APRN.CNP PAGER: [id number] History of Present illness Narrative* Yennifer Tomas, INCINERATOR OPERATOR.WOOD LATHER - 11/24/2023 3:46 PM EDT Images from the original note were not included. [facility] Department of Minimally Invasive POLICE SERGEANT PRECINCT Surgery [facility] PATIENT NAME: Violet Hernandez DATE: 11/24/2023 Patient Name and verified: Yes Patient Location: [place] This Virtual Visit was completed using My Chart Zoom platform. I have communicated my name and active licensure. The patient's identity and physical location wereverified at the time of this visit. Either the patient or their legal field representative has been informed of the risks and benefits of -- and alternatives to -- treatment through a remote evaluation andconsents to proceed with the evaluation remotely. Chief Complaint CC/REASON FOR VISIT: Post Op History of Present Illness: Violet is a 38 year old who presents for a post op [facility] visit. SURGERY & DATE: 11/10/2023 [facility] with Dr. Katz PATHOLOGY: FINAL DIAGNOSIS [...] mouth once daily. Start oral estrogen. Send Probity message if vaginal issue is not resolved. May benefit from Vaginal estrogen as well 1) Discussed results of pathology and implications with patient. 2) Postop restrictions and wound care reviewed. 3) Keep follow up with Dr. Katz on 01/15/2024. Appointments for Next 60 Days Date Time Provider Location Dept Phone 11/24/2023 4:00 PM YENNIFER TOMAS Bldg [phone] 01/15/2024 1:45 PM LEE KATZ [facility] [phone] SIGNATURE: Yennifer Tomas APRN.WOOD LATHER PAGER: [phone] documented in this encounterC[facility] Telephone encounter Note * Telephone Encounter - [...] if she experiences increased pain. 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 Tracey Fowler RN [facility]10-04-2024 Miscellaneous Notes* Telephone Encounter - Tracey Fowler [...] if she experiences increased pain. 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 Tracey Fowler RN * Telephone Encounter - Valentine Crump - 11/13/2023 8:17 AM EDT Pt post hysto and having sharp pains. Wants to know if that's normal. Belly button oozing clear fluid. Please advise [phone] documented in this encounterC[facility]10-04-[facility] Telephone encounter Note * Telephone Encounter - Valentine Crump - 11/13/2023 8:17 AM EDT Pt post hysto and having sharp pains. Wants to know if that's normal. Belly button oozing clear fluid. Please advise [phone] [facility]10-03-2024 Telephone encounter Note* Telephone Encounter - Julia [...] in their postop instructions After hours fellow gaming commissioner [phone] Office number [phone] (M-F, 8-4:30) Patient advised to call 911 [...] Bldg 01/15/2024 1:45 PM Lee Katz DO GMIGPAT [facility] 05/20/2024 4:00 PM Sherly Ng APRN.CNP OBGYWM [place] Patient questions/concerns: NONE [facility]10-03-2024 Miscellaneous Notes* Telephone Encounter - Julia Perez [...] in their postop instructions After hours fellow gaming commissioner [phone] Office number [phone] (M-F, 8-4:30) Patient advised to call 911 [...] 11/24/2023 4:00 PM Yennifer Tomas APRN.CNP [facility] [place] [facility] 01/15/2024 1:45 PM Lee Katz DO GMIGFV [facility] 05/20/2024 4:00 PM Sherly Ng APRN.CNP OBGYWM [place] Patient questions/concerns: NONE documented in this encounterC[facility]10-02-[facility]24 Telephone encounter Note * Telephone Encounter - Jeanie Yu APRN.CNP - 11/11/2023 11:51 AM EDT Is she having any symptoms that she needs the HRT now? It looks like she has been in POI since 2010. If no symptoms, she can wait to discuss at her postop appt or with her primary box printing machine operator. Jeanie Yu APRN.DANA [facility]10-02-2024 Miscellaneous Notes* Telephone Encounter - Jeanie Yu APRN.CNP - 11/11/2023 11:51 AM EDT Is she having any symptoms that she needs the HRT now? It looks like she has been in PO[place] since 2010. If no symptoms, she can wait to discuss at her postop appt or with her primary box printing machine operator. Jeanie Yu APRN.DANA * Telephone Encounter - Janice Weeks RN [...] 11/23/23 with Yennifer Tomas CNP. Routing to Benign/MIGS WELL DRILL OPERATOR HELPER CABLE TOOL Pool. Janice Weeks RN November 11, 2023 11:23 AM * Telephone Encounter - Evelyn Barclay - 11/11/2023 10:12 AM EDT Reason for [...] department: Visit date not found 11/24/2023 in POLICE SERGEANT PRECIN[facility] MIGS MAIN with YENNIFER TOMAS - 2 WEEK POST OP 01/15/2024 in POLICE SERGEANT PRECINCT MIGS [facility] with LEE KATZ - 6 WEEK POST OP 05/20/2024 in COMPUTING CONSULTANT WSTR MOB with SHERLY NG - annual exam Thanks Evelyn documented in this encounterC[facility]10-02-2024 Telephone encounter Note * Telephone Encounter - [...] 11/23/23 with Yennifer Tomas CNP. Routing to [facility] WELL DRILL OPERATOR HELPER CABLE TOOL Pool. Janice Weeks RN November 11, 2023 11:23 AM [facility]10-02-2024 Telephone encounter Note* Telephone Encounter - Evelyn Barclay - 11/11/2023 10:12 AM EDT Reason for [...] department: Visit date not found 11/24/2023 in [facility]ICE [facility]GE[facility]S MAIN with YENNIFER TOMAS - 2 WEEK POST OP 01/15/2024 in POLICE SERGEANT PRECINCT MIGS [facility] with LEE KATZ - 6 WEEK POST OP 05/20/2024 in COMPUTING CONSULTANT WSTR MOB with SHERLY NG - annual exam Thanks Evelyn [facility]09-30-2024 Telephone encounter Note* Telephone Encounter - Ana Cristina Perez LPN - 11/09/2023 12:08 PM EDT Received office visit from Dr. Saenz office. Scanned into [employer] through Onbase scanning. Ana Cristina Perez LPN [facility]09-30-2024 Miscellaneous Notes* Telephone Encounter - Ana Cristina Perez LPN - 11/09/2023 12:08 PM EDT Received office visit from Dr. Saenz office. Scanned into [employer] through Onbase scanning. Ana Cristina Perez LPN * Telephone Encounter - Ana Cristina Perez LPN - 11/06/2023 3:51 PM EDT Called and left message with Dr. Saenz office requesting most recent office visit for upcoming surgery. Ana Cristina Perez LPN * Telephone Encounter - Ana Cristina Perez LPN - 11/06/2023 3:48 PM EDT Received [facility] office visit and hematology office visit. Scanned into [employer] through Onbase scanning. Ana Cristina Perez LPN documented in this encounterCleveland Clinic [facility]09-27-2024 Telephone encounter Note * Telephone Encounter - Ana Cristina Perez LPN - 11/06/2023 3:51 PM EDT Called and left message with Dr. Seanz office requesting most recent office visit for upcoming surgery. Ana Cristina Perez LPN [facility]09-27-2024 Telephone encounter Note* Telephone Encounter - Ana Cristina Perez LPN - 11/06/2023 3:48 PM EDT Received [facility] office visit and hematology office visit. Scanned into [facility] through Onbase scanning. Ana Cristina Perez LPN [facility]09-27-2024 History and physical note* Adeline Jama, INCINERATOR OPERATOR.WOOD LATHER - 11/06/2023 1:50 PM EDT Images from [...] 11.00 k/uL Final 10/06/23 Dr. Braun, Hematology [place] Thrombocytopenia (HCC) Assessment: Platelet Count Date Value [...] asymptomatic, following cardiology 11/03/22 Javi Rivero CNP, [facility] BCC (basal cell carcinoma of [...] large neck Non-male patient STOP-Bang Score: 1 [id number] Score: Age: <65 Sex: female CHF history: No Hypertension history: No Stroke/TIA/thromboembolism history: No Vascular disease history: No Diabetes history: No [id number] Score: 1 ARISCAT Score: Age: <=50 Preoperative [...] - ANESTHESIA PLAN Anesthetic Plan: other Beta Saleem Monitoring Plan Post Procedure Analgesic Plan Prepared for Surgery: optimally prepared for surgery, pending [see comment]. [facility] CONSULTS: Patient does not require consults for [...] fevers. Neurological: No history of TIA's, stroke, SCRATCHER tumor, impaired sensorium, hemiplegia, paraplegia orquadraplegia. No [...] congenital heart defect, DVT/PE, hyperlipidemia, hypertension, recent [place], PVD, open heart surgery and valve surgery. GI: +IBS vs microscopic colitis, s/p colonoscopy yesterday at [facility] Positive for: liver disease (fatty liver) : No history of dysuria, frequency or incontinence, stones or chronic kidney disease. No difficulty urinating, nocturia > 1 time per night or hematuria. POLICE SERGEANT PRECINCT: See HPI. Endocrine: No history of diabetes. [...] or any previous visit (from the past 15662 hour(s)). Instructions Given to Patient: Instructions located in the after visit summary. Patient given verbal and written preop instructions and voices comprehension and compliance. SIGNATURE: Adeline Jama APRN.CNP PATIENT NAME: Violet Hernandez DATE: November 06, 2023 TIME: 1:50 PM PAGER/CONTACT #: [facility]09-27-[facility] History and physical note* Adeline Jama APRN.CNP [...] 11.00 k/uL Final 10/06/23 Dr. Braun, Hematology [place] Thrombocytopenia (HCC) Assessment: Platelet Count Date Value [...] asymptomatic, following cardiology 11/03/22 Javi Rivero CNP, [facility] BCC (basal cell carcinoma of skin) Assessment: s/p excision Mixed anxiety depressive disorder Assessment: stable on rx per pt Obesity, Class I, BMI 30-34.9 Assessment: Body mass index is 33.02 kg/m . Bdeoya Activity Status Index: METS: Climb a flight [...] large neck Non-male patient STOP-Bang Score: 1 [id number] Score: Age: <65 Sex: female CHF history: No Hypertension history: No Stroke/TIA/thromboembolism history: No Vascular disease history: No Diabetes history: No [id number] Score: 1 ARISCAT Score: Age: <=50 Preoperative [...] - ANESTHESIA PLAN Anesthetic Plan: other Beta Saleem Monitoring Plan Post Procedure Analgesic Plan Prepared for Surgery: optimally prepared for surgery, pending [see comment]. Labs-reviewed, [facility]- CONSULTS: Patient does not require consults for [...] fevers. Neurological: No history of TIA's, stroke, SCRATCHER tumor, impaired sensorium, hemiplegia, paraplegia orquadraplegia. No [...] congenital heart defect, DVT/PE, hyperlipidemia, hypertension, recent [place], PVD, open heart surgery and valve surgery. GI: +IBS vs microscopic colitis, s/p colonoscopy yesterday at [facility] Positive for: liver disease (fatty liver) : No history of dysuria, frequency or incontinence, stones or chronic kidney disease. No difficulty urinating, nocturia > 1 time per night or hematuria. POLICE SERGEANT PRECINCT: See HPI. Endocrine: No history of diabetes. [...] or any previous visit (from the past 55844 hour(s)). Instructions Given to Patient: Instructions located in the after visit summary. Patient given verbal and written preop instructions and voices comprehension and compliance. SIGNATURE: Adeline Jama APRN.CNP PATIENT NAME: Violet Hernandez DATE: November 06, 2023 TIME: 1:50 PM PAGER/CONTACT #: documented in this encounterCleveland Clinic [facility]09-27-2024 Instructions* Patient Instructions* Adeline Jama APRN.CNP - 11/06/2023 1:42 PM EDT Images from the original note were not included. [facility] PATIENT PREOPERATIVE INSTRUCTIONS No ref. provider found has scheduled you for your procedure at this surgery center: [facility] [place] Scheduling Office: [phone] --[address] [place] [address]. Please read below carefully for your personalized [...] Procedures: - YOU MUST HAVE A RESPONSIBLE PLUSH FINISHER TAKE YOU HOME. A RESEARCH KENNEL SUPERVISOR OR OCCUP THER CANNOT BE MADE A RESPONSIBLE PLUSH FINISHER. - We recommend that a responsible person [...] call the Thursday before. Your surgeon s hand ii cutter will tell you what time to call the office. - If you have not reached the departmental hand ii cutter by 5 P.M., call [phone] after 5 P.M. the day before your surgery. Please be aware that emergency situations arise, which may delay or change your surgical time. If this happens, we will notify you as soon as possible and regret any inconvenience. If you already have an Advance Directive, please fax a copy to [phone] or email to for it to be [...] into your chart that day. Adeline Jama APRN.DANA documented in this encounterCleveland Clinic [facility]09-23-2024 Instructions* Patient Instructions* Zayda Liao LPN - 2023 11:13 AM EDT Images from the original note were not included. MINIMALLY INVASIVE GYNECOLOGIC SURGERY (MIGS)/BENIGN GYNECOLOGY CONTACTS: Dr. Lee Katz Surgery Scheduling Office: Call the day before surgery after 2pm for your surgery arrival time After hours phone number: or toll free Ask the foreman or supervisor and operator to page the box printing machine operator gaming commissioner.' Business hours are Thursday - Thursday from [...] vitamin E, herbal medications, diet pills, and dtvw-uzo-dgfqlyn medications. Tylenol (acetaminophen) is okay. I will not wear jewelry, body piercing(s), makeup, nail hungarian, hairpins, or contacts on the day ofsurgery. [...] my surgeon. Discuss medication changes with your hatchery laborer or primary care physician as well. If I stopped taking my blood-thinning medication, I will ask the surgeon when to resume taking it. If I am an outpatient, a responsible person will drive me home and it was suggested that someone stay with me for 24 hours. I understand that a business planning analyst or cabdriver is NOT a responsible caregiver. [...] DAY OF SURGERY/CHECK IN Report to [facility]K [facility] for surgery. A map is located in Your Surgical Guide Book. The online version of the surgical guide book can be found at: [email or web address] The address is [address] [place] [address]/[place] [address] INFECTION PREVENTION Please notify your doctor if [...] Your Surgical Guide Book for more information. [facility] TEAM At the [facility], we have a multidisciplinary team of caregivers that includes fellows, residents, nurse practitioners, physician assistants, clinical nurse specialists, nurses, medical assistants, patient care nursing assistants, social workers, case packer and sealer and many others. We all have different [...] If you have a sedentary job or counter supply worker 1-2 weeks before returning to work [...] to dispose of unused medications at three [facility] locations: [facility] pharmacy, [facility] pharmacy, and the Pharmacy at the [facility] for [facility] (inside the parking garage on the first [...] EMERGENCY DEPARTMENT POST OPERATIVELY, WE RECOMMEND THE MAIN CAMPUS EMERGENCY DEPARTMENT FOR CONTINUITY OF CARE AND THE BEST ACCESS TO ONE OF THE SURGEONS ON OUR TEAM. Address: [address] [place] [address] documented in this encounterCleveland Clinic [facility]09-23-2024 History of Present illness Narrative* Zayda Liao LPN - 2023 11:12 AM EDT DATE OF SERVICE: 2023 PROBLEM: Violet Hernandez presents for pre-op teaching. PRE-OP DIAGNOSIS: intramural and subserous leiomyoma of uterus and pelvic pain in female SCHEDULED SURGERY AND DATE: 11-10-23 [facility] LAPAROSCOPIC HYSTERECTOMY TOTAL FOR UTERUS 250 G [...] patient have an advanced directive: No Does [facility] have a copy of the patient's advanced [...] prescribed by anesthesia, internal medicine, surgeon, or WELL DRILL OPERATOR HELPER CABLE TOOL Stop NSAIDs, Aspirin (ASA), vitamins, herbal supplements, [...] jewelry, body piercing, makeup, contacts, lotions, nail hungarian on fingers, or anything in hair on arrival to surgery Wear low healed shoes and loose fitting clothing Leave all valuables at home or with a family member Directions to [facility] Parking/parking validation on the day prior to [...] patient, if after hours patientinstructed to call foreman or supervisor and operator and ask for gaming commissioner box printing machine operator resident. OCHOA program offered to patient: Yes Additional teaching as indicated by patient/family learning needs. PATIENT LEARNING EVALUATION & FOLLOW UP PLAN: Patient and/or family express understanding of upcoming surgery, pre-operative preparation, the operative process, and post-operative instructions. Follow up plan: Patient instructed to call with any further issues Patient has a post-op appointment scheduled: [id number] at 4pm with Yennifer Tomas (video) Referral (recommentation): None Educator: Zayda Liao LPN [facility] documented in this encounterCleveland Clinic [facility]09-20-2024 Telephone encounter Note * Telephone Encounter - Toya Lopes - 10/30/2023 3:19 PM EDT Pt wants a letter sent via Z[employer]. I am happy to get that drafted up but what do you think in terms of time off can she return at 4 weeks with restrictions? [facility]09-20-2024 Miscellaneous Notes* Telephone Encounter - Toya Lopes - 10/30/2023 3:19 PM EDT Pt wants a letter sent via Zoop. I am happy to get that drafted [...] advise with return call. documented in this encounterCleveland Clinic [facility]09-20-2024 Telephone encounter Note * Telephone Encounter - Sonia Lopez RN - 10/30/2023 12:04 PM EDT Attempted to call patient. Left voicemail. Instructed patient to call office back. Sonia Lopez RN October 30, 2023 12:05 PM [facility]09-19-2024 Telephone encounter Note* Telephone Encounter - Renata Booker - 10/29/2023 8:58 AM EDT Patient is having surgery 11/10/[address] Katz and is requesting a letter to her employer stating x number of weeks time off. Patient does not qualify for FMLA. Please advise with return call. [facility]09-18-2024 Telephone encounter Note* Telephone Encounter - Jeanie Yu APRN.CNP - 10/28/2023 12:38 PM EDT Encounter Diagnosis ICD-10-CM 1. Preop testing Z01.818 COMPLETE BLOOD COUNT AND DIFFERENTIAL TYPE AND SCREEN,30 DAY [facility]09-18-2024 Miscellaneous Notes* Telephone Encounter - Jeanie Yu [...] Fox RN * Telephone Encounter - Emerita Mobley - 10/28/2023 8:57 AM EDT Patient calling [...] Please advise. Thank you documented in this encounterCleveland Clinic [facility] Hospital09-18-2024 Telephone encounter Note * Telephone Encounter - Lakeshia Fox RN - 10/28/2023 11:16 AM EDT Called patient LVM to call the office Surgery scheduled for 11/10/2023-- this should not be a problem Recovery time is 6 weeks , not lifting, pushing, pulling more than 10 lbs Can return to work sooner if she has a job that can accommodate this Lakeshia Fox RN [facility]09-18-2024 Telephone encounter Note* Telephone Encounter - Emerita Mobley - 10/28/2023 8:57 AM EDT Patient calling [...] they would need. Please advise. Thank you [facility]09-16-2024 Instructions* Patient Instructions* Mark Katzn, DO - 10/26/2023 5:49 PM EDT Images from the original note were not included. Please visit the following website for the [facility] surgery guide. [email or web address] MINIMALLY INVASIVE GYNECOLOGIC SURGERY (MIGS)/BENIGN GYNECOLOGY CONTACTS: Surgeons: Dr. Lee Katz Dr. Anne Marie Aguilera Dr. Angélica Cerrato Dr. Zuleyma Morales Dr. Denzel Perez Dr. Joleen Calderon [place]: Dr. Naina Goncalves [phone] Dr. Adriano Oviedo [phone] Dr. Bianca Coronado [phone] Nurse Practitioners: Jeanie Yu, INCINERATOR OPERATOR.WOOD LATHER Maria E Marcial, INCINERATOR OPERATOR.WOOD LATHER Cate Carter, INCINERATOR OPERATOR.WOOD LATHER Stephanie Morrison, INCINERATOR OPERATOR.WOOD LATHER Zuleyka Kovacs, INCINERATOR OPERATOR, WOOD LATHER Surgery Scheduling Office: Call the day before surgery after 2pm for your surgery arrival time After hours phone number: or toll free Ask the foreman or supervisor and operator to page the box printing machine operator gaming commissioner.' Business hours are Thursday - Thursday from 8:00am - 4:30pm. We are closed on weekends and major holidays. Surgery Locations: [facility] [place] [address] [facility] [place] [id number] [facility] [address] [place], [place] [address] [facility] [address] [place], [place] [address] [facility] [address] [place], [place] [address] MINIMALLY INVASIVE HYSTERECTOMY POSTOPERATIVE INSTRUCTIONS ACTIVITY * [...] If you have a sedentary job or counter supply worker 1-2 weeks before returning to work [...] to dispose of unused medications at three [facility] locations: [facility] pharmacy, [facility] pharmacy, and the Pharmacy at the [facility] for [facility] (inside the parking garage on the first [...] EMERGENCY DEPARTMENT POST OPERATIVELY, WE RECOMMEND THE MAIN CAMPUS EMERGENCY DEPARTMENT FOR CONTINUITY OF CARE AND THE BEST ACCESS TO ONE OF THE SURGEONS ON OUR TEAM. Address: [address] [place] [id number] documented in this encounterCleveland Clinic [facility]09-16-2024 History of Present illness Narrative* Lee Katz DO - 10/26/2023 9:30 AM EDT Images from the original note were not included. [facility] SECTION FOR MINIMALLY INVASIVE GYNECOLOGIC SURGERY OUTPATIENT VISIT DATE 10/26/2023 OUTPATIENT VISIT TYPE NEW PRIMARY CARE PHYSICIAN: Emily Sanders ([facility]) [address] [place] [address] REFERRING PHYSICIAN: Leo Barnett Consultation requested by [...] free fluid is present. 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 rrgyhlh-pwqfwxpfj-rctdjoc D3 500 mg(1,250mg) -200 unit per tablet [...] POI (dx in 2010 by JOSE in [place]), can perform a BSO at the time of surgery as well. Reviewed the risks/benefits of BSO at time of surgery and with shared decision making, patient is interested in proceeding with BSO. Plan: - Surgical management with H-BSO, cysto. Reviewed risks of surgery with patient and expected post-operative recovery and activity restrictions. Consents signed - Recommend follow-up with PCP for routine bone density scans and with primary Track Inspecting Supervisor for continuedhormonal replacement following surgery. Written and verbal health teaching given to patient, patient verbalizes understanding and agrees with treatment plan. Lee Katz DO documented in this encounterCleveland Clinic [facility]07-08-2024 Telephone encounter Note * Telephone Encounter - Lakeshia Fox RN - 08/17/2023 9:49 AM EDT Images from the original note were not included. Called patient verified name and Relayed message below Patient understood and was thankful for the call Lakeshia Fox RN Lee Katz DO [place] Nurse [id number] minutes ago (9:30 AM) MB Yes. Pls tell her yes. [facility]07-08-2024 Miscellaneous Notes* Telephone Encounter - Lakeshia Fox RN - 08/17/2023 9:49 AM EDT Images from the original note were not included. Called patient verified name and Relayed message below Patient understood and was thankful for the call Lakeshia Fox RN Lee Katz DO [place] A81 Nurse [id number] minutes ago (9:30 AM) MB Yes. Pls [...] am concerned with performing Laparoscopic procedure in [place] as morcellation and removal of uterus and closure of cuff would be difficult due to limited vaginal access. I would recommend consultation with [facility] for Laparoscopic morcellation. Pt agreeable to this plan. Noah send chart to Dr. Kazt in [place]. Medical Decision Making: Problems: Moderate: 1+ chronic illnesses with change Risk: High: Decision on elective major surgery w/ risk factors Medical Decision Making Level: 4 - Moderate Leo Abdi MD Will route to Dr. Katz to respond. Ok to send a Zoop update to pt. documented in this encounterCleveland Clinic [facility]07-08-2024 Telephone encounter Note * Telephone Encounter - [...] am concerned with performing Laparoscopic procedure in [place] as morcellation and removal of uterus and closure of cuff would be difficult due to limited vaginal access. I would recommend consultation with [facility] for Laparoscopic morcellation. Pt agreeable to this plan. Noah send chart to Dr. Katz in [place]. Medical Decision Making: Problems: Moderate: 1+ chronic illnesses with change Risk: High: Decision on elective major surgery w/ risk factors Medical Decision Making Level: 4 - Moderate Leo Abdi MD Will route to Dr. Katz to respond. Ok to send a mychart update to pt. [facility]07-05-2024 Telephone encounter Note* Telephone Encounter - Lee Jama - 08/14/2023 8:09 AM EDT Patient called into the office on 08/14/2023 and would like to speak to Dr. Byrnes nurse in regards to her up and coming appointment with Dr. Katz. Patient had some clinical questions in regards to hysterectomy. Please call patient at [phone]. Thanks Lee Jama [facility]07-05-2024 Miscellaneous Notes* Telephone Encounter - Lee Jama - 08/14/2023 8:09 AM EDT Patient called into the office on 08/14/2023 and would like to speak to Dr. Byrnes nurse in regards to her up and coming appointment with Dr. Katz. Patient had some clinical questions in regards to hysterectomy. Please call patient at [phone]. Thanks Lee Jama documented in this encounterC[facility] History of Present illness Narrative* Leo Barnett MD - 08/12/2023 11:33 AM EDT Filter Press Supervisor offered: Patient declines. Violet Hernandez is a [...] L0 SAB0 IAB0 Ectopic0 Multiple0 Live Births0 Director Of Special Events History LMP: 06/09/2022 (Within Days), Drug Induced Amenorrhea Age at Menarche: Age at First : Age at Menopause: Director Of Special Events History Comments: Sexual Activity: Yes; Male Contraception: [...] chew 1 tablet by oral route daily abrugzp-ajgrzezml-oromxrc D3 500 mg(1,250mg) -200 unit per tablet [...] external genitalia normal, normal Bartholin's glands, urethra, Marquez's glands, no vulvar lesions, no cervical lesions, [...] am concerned with performing Laparoscopic procedure in [place] as morcellation and removal of uterus and closure of cuff would be difficult due to limited vaginal access. I would recommend consultation with [facility] for Laparoscopic morcellation. Pt agreeable to this plan. Noah send chart to Dr. Katz in [place]. Medical Decision Making: Problems: Moderate: 1+ chronic illnesses with change Risk: High: Decision on elective major surgery w/ risk factors Medical Decision Making Level: 4 - Moderate Leo Abdi MD documented in this encounterC[facility] Telephone encounter Note * Telephone Encounter - Sherly Ng APRN.[facility] - 07/02/2023 12:56 PM EDT Pt called with US results of 7.4 cm uterine fibroid. Informed that Dr Monroe reviewed US and thatshe will most likely need a hysterectomy but will need to schedule an appointment with Dr Monroe for an examination before that decision is made. She will schedule appt. Sherly Ng APRN.CNP [facility]05-23-2024 Miscellaneous Notes* Telephone Encounter - Sherly Ng [...] next. Jenny Bull RN documented in this encounterC[facility]05-21-2024 Telephone encounter Note * Telephone Encounter - Sherly Ng APRN.CNP - 06/30/2023 1:09 PM EDT I will discuss with one of the physicians before discussing with her so it may be a few days beforeI get back with her. Sherly Ng APRN.DANA [facility]05-21-2024 Telephone encounter Note* Telephone Encounter - Jenny Bull RN - 06/30/2023 9:55 AM EDT Patient calling because she saw u/s results on mychart. Asking what she needs to do next. Jenny Bull RN [facility]04-09-2024 Instructions* Patient Instructions* Sherly Ng APRN.CNP - 05/19/2023 11:21 AM EDT Replens vaginal moisturizer. Revaree hyaluronic acid vaginal suppositories. documented in this encounterC[facility]04-09-2024 History of Present illness Narrative* Sherly Ng [...] L0 SAB0 IAB0 Ectopic0 Multiple0 Live Births0 Director Of Special Events History LMP: 06/09/2022 (Within Days), Drug Induced Amenorrhea Age at Menarche: Age at First : Age at Menopause: Director Of Special Events History Comments: Sexual Activity: Yes; Male Contraception: [...] external genitalia normal, normal Bartholin's glands, urethra, Marquez's glands, no vulvar lesions, no cervical lesions, [...] of 7 cm fibroid - PELVIC US I 4. Surveillance for control, oral contraceptives - ICD9: V25.41, ICD10: Z30.41 - DROSPIRENONE 3 MG-ETHINYL ESTRADIOL 0.03 MG TABLET 5. Uterine leiomyoma, unspecified location - ICD9: 218.9, ICD10: D25.9 - recent CT with incidental finding of 7 cm fibroid. Pelvic US 2020 - 3.7 fundal intramural fibroid - US FEMALE PELVIS TRANSVAG - PELVIC US I 6) STD screening: Declined STD check. 7) Follow up one year or sooner as needed Sherly Ng APRN.WOOD LATHER documented in this encounterC[facility]12-[facility]23 Discharge summary Author Umang Matos [facility] February 02, 2023 1:11am Note Date/Time February 01, 2023 11:20pm [facility] Medical Records Department [address] [place] [address] Emergency Department Summary 02/01/23 MR#: [id number] Acct: [id number] Name: VIOLET HERNANDEZ Rep #: [id number] : 1985 37 From: Umang Matos MD [...] became concerned because of his continued presence. [facility] Medical History Anxiety Anxiety and depression Cervical [...] emergency department were reviewed. She will continue pszh-rfb-lchagpn analgesics. I do not feel narcotic pain [...] % (Auto) 49.2 Lymph % (Auto) 28.4 Amelia % (Auto) 17.4 H Eos % (Auto) [...] Clarity Cloudy Urine pH 6.5 Ur Specific [place] 1.015 Urine Protein 30 H Urine Glucose [...] 0:48 EST Reading Location ID and State: [address] [place] [address] Tel , Service support , Discharge Plan [...] your Primary Care Provider. Call [facility] ([phone]) or report to the closest Emergency Room. Call 911 if necessary. 02/02/23 0111 <Electronically signed by Umang Matos MD> Cosigner Signature (if applicable): CC: Dr. Emily Sanders MD ~ Signed [facility] Work Phone: [phone] 167-921709-06-2023 History of Present illness Narrative* Negrito Felix APRN.CNP - 10/15/2022 5:13 PM EDT Signed under wrong patient. Requesting for her son to be seen. Explained that I am not able to see her son with her chart and credentials. Instructed to register visit under her son's name. Appt cancelled and fee waived. Negrito Felix APRN.WOOD LATHER documented in this encounterC[facility]03-31-[facility]23 History of Present illness Narrative* Sherly Ng APRN.DANA - 05/09/2022 12:49 PM EDT Filter Press Supervisor offered: Patient declines. Violet is a 36 [...] L0 SAB0 IAB0 Ectopic0 Multiple0 Live Births0 Director Of Special Events History LMP: 04/28/2022 (Within Days), Having periods Age at Menarche: Age at First : Age at Menopause: Director Of Special Events History Comments: Sexual Activity: Yes; Male Contraception: [...] external genitalia normal, normal Bartholin's glands, urethra, Marquez's glands, no vulvar lesions, no cervical lesions, [...] year or sooner as needed Sherly Ng APRN.WOOD LATHER documented in this encounterC[facility]12-09-[facility]22 History of Present illness Narrative* Sherly Ng APRN.DANA - 01/17/2022 11:16 AM EST Filter Press Supervisor offered: Patient declines. Violet Hernandez is a [...] L0 SAB0 IAB0 Ectopic0 Multiple0 Live Births0 Director Of Special Events History LMP: 04/23/2021, Having periods Age at Menarche: Age at First : Age at Menopause: Director Of Special Events History Comments: Sexual Activity: Yes; Male Contraception: [...] mg tablet hydroxyzine HCl 10 mg tablet vbqejzg-nbuvqlnab-kydhgwy D3 500 mg(1,250mg) -200 unit per tablet [...] external genitalia normal, normal Bartholin's glands, urethra, Marquez's glands, no vulvar lesions, no cervical lesions, [...] results. Follow- up as needed. Sherly Ng APRN.CNP Medical Decision Making: Problems: Moderate: 1+ chronic illnesses with change Data: Unique test(s) ordered: 2 Medical Decision Making Level: 3 - Low documented in this encounterC[facility]09-[facility]22 History of Present illness Narrative* WOODY Lombardi) - 10/18/2021 1:40 PM EDT Radiology Service [...] 18, 2021 1:54 PM documented in this encounterC[facility] Clinic [facility]03-29-2022 History of Present illness Narrative* Leo Monroe MD - 05/07/2021 2:32 PM EDT Violet is a 35 year old who presents for an annual gynecologic exam without complaints. Still has some spotting on week two of pills- minimal. Son turning 9- autistic. H/o premature ovarianfailure- dx in [place] by jose. Menses: cycles every 28 days [...] L0 SAB0 IAB0 Ectopic0 Multiple0 Live Births0 Director Of Special Events History LMP: 04/23/2021, Having periods Age at Menarche: Age at First : Age at Menopause: Director Of Special Events History Comments: Sexual Activity: Yes; Male Contraception: [...] external genitalia normal, normal Bartholin's glands, urethra, Marquez's glands, no vulvar lesions, good vaginal support, [...] Infante Ma - 05/07/2021 2:21 PM EDT Filter Press Supervisor offered: Patient declines. documented in this encounterCleveland Clinic [facility]03-10-2022 Miscellaneous Notes* Telephone Encounter - Mago Thompson - 04/18/2021 12:29 PM EST Patient did schedule annual with Dr Monroe for 05/07. She is requesting enough medication to get her to this appointment please. * Telephone Encounter - Jenny Bull RN - 04/18/2021 9:34 AM EST Patient overdue for annual exam. iPling message sent to schedule. Pending Prescriptions Disp Refills SPRINTEC (28) 0.25 MG-35 MCG TABLET 84 tablet 0 Sig: Take 1 tablet by mouth once daily BHARGAVI: Yes RX INSTRUCTIONS: Pharmacy initiated this request. No need to notify patient. Jenny Bull RN documented in [facility] encounterNor[facility] Author Adriano Schroeder [facility] Note Date/Time October 31, 2024 10:07am [facility] Medical Records Department [address] [place] [address] Anesthesia Postop Eval I 10/31/24 1006 MR#: [id number] Acct: [id number] Name: VIOLET HERNANDEZ Rep #: [id number] : 1985 38 From: Adriano Schroeder PCP: Dr. Emily Sanders MD Status:R [facility] Y Race: C Location: [place] [address] Anesthesia: Postop Eval I Current Vital Signs Temperature: 98 F Pulse Rate: 61 Blood Pressure: 112/65 Respiratory Rate: 16 Pulse Ox: 98 Oxygen Delivery Method: Room Air Assessment Airway patent: Yes Spontaneous unlabored respirations: Yes Mental status: Awake and Calm nausea: No Vomiting: No Anesthesia Complication: No Fluid Hydration Crystalloid volume administer (ml): 400 Total IV fluid infused: 400 Progress Note Anesthesia document: Postop Eval 1 completed: Yes 10/31/24 1007 <Electronically signed by Adriano Schroeder > Date _ Adriano Medina Signature: Date CC: ~ Signed [facility] Work Phone: Consult note Author Salvatore Ribeiro [facility] Note Date/Time October 31, 2024 10:35am [facility] Medical Records Department [address] [place] [address] Anesthesia Postop Eval II 10/31/24 1013 MR#: [id number] Acct: [id number] Name: VIOLET HERNANDEZ Rep #: [id number] : 1985 38 From: Salvatore Ribeiro MD PCP: Dr. Emily Sanders MD Status:R EG SD Y Race: C Location: [address] Anesthesia Postop Eval I Sum Postop Eval Completion status Anesthesia document: Postop Eval 1 completed: Yes Anesthesia Postop Eval I Summary Anesthesia Postop Eval I Summary: Anesthesia Postop Eval I: Assessment Summary Airway patent Yes 10/31/24 10:07 [email or web address] Spontaneous unlabored Yes 10/31/24 10:07 [email or web address] respirations Mental status Awake,Calm 10/31/24 10:07 [email or web address] nausea No 10/31/24 10:07 [email or web address] Vomiting No 10/31/24 10:07 [email or web address] Anesthesia Postop Eval I: Fluid Summary Crystalloid volume administer 400 10/31/24 10:07 [email or web address] (ml) Colloids volume administered ( ml) Blood Product volume administered (ml) Total IV fluid infused 400 10/31/24 10:07 [email or web address] Anesthesia Postop Eval I: Summary Notes Anesthesia Complication No 10/31/24 10:07 [email or web address] Anesthesia Complication Comment: Post-operative progress note Anesthesia: Postop Eval II Evaluation Mental status: Awake Pain Level: 0 nausea: No Vomiting: No 10/31/24 1013 <Electronically signed by Salvatore Ribeiro MD > Date _ Salvatore Ribeiro MD Cosigner Signature: Date CC: ~ Signed [facility] Work Phone: Discharge summary Author Marvin Edouard [facility] Note Date/Time September 10, 2024 7:3 7am [facility] Medical Records Department [address] [place] [address] Emergency Department Summary 09/10/24 MR#: [id number] Acct: [id number] Name: VIOLET HERNANDEZ Rep #: [id number] : 1985 38 From: Marvin Zepeda PCP: Dr. Emily Sanders MD Status:R EG ER Location: ED HPI History of Present Illness Chief Complaint: General Illness Informant: patient and parent Narrative Narrative: Here with mother for evaluation increasing fluttering in her chest this evening. It made her feel short of breath. No nausea or vomiting. States she has been having chills. Approximately week ago stepped on a nail on the right foot was seen in the ED tetanus updated just finished antibiotics of Cipro. States that time did have burning with urination but subsided. No cough no runny nose. Saw[facility] PCP yesterday for follow-up things healing appropriately. Denies any swelling or pain in the feet. History of anxiety has had similar symptoms however wanted make sure things were okay. No significant caffeine use history. Hysterectomy last year. Prior similar symptoms: Yes PFSH PFSH Medical History NICA (obstructive sleep apnea) [...] (urinary tract infection) Seasonal allergies Home Medications ?Medication ?Instructions ?Recorded ?Last Taken ?Type vitamin E (dl, acetate) 180 mg 400 units PO DAILY 03/12 06/29 Unknown History (400 unit) capsule docusate sodium 100 mg capsule 100 mg PO DAILY PRN con stipation 12/11/23 Unknown History (Stool Softener) albuterol sulfate 90 mcg/actuation 2 inh inhalation Q4 H PRN shortness 03/31/24 Unknown History aerosol inhaler of breath or wheezing cholecalciferol (vitamin D3) 50 50 mcg PO DAILY Unknown History mcg (2,000 unit) tablet (D3 DOTS) estradiol 0.1 mg/24 hr semiweekly 1 patch topical SUWE 03/31/24 Unknown History transdermal patch (Shaye) fluvoxamine 100 mg tablet 100 mg PO DAILY 03/31/24 Unk nown History metronidazole 1 % topical gel 1 applic topical DAILY P RN 04/25/24 Unknown History Perioral detmatitis vitamin B complex 1 tab PO QDAY 04/27/24 Unkno wn History rosuvastatin 10 mg tablet 5 mg (1/2 x 10 mg) PO DAILY 1 07/19/24 Unknown Rx month #30 tabs cetirizine 10 mg capsule 10 mg PO DAILY Seasonal kev rgies 09/09/24 Unknown History cephalexin 500 mg capsule 500 mg PO Q12 #14 CAPSULES 0 09/10/24 Unknown Rx Allergy/AdvReac Type Severity Reaction Status Date / Time No Known Allergies Allergy Verified 09/10/24 05:53 Family History Brother Anxiety Hypertension Sister Anxiety [...] 1 ROS ROS ED Constitutional Constitutional ED: Denies fever(s) Cardiovascular Cardiovascular: Reports palpitations; Denies chest pain Respiratory/Chest Respiratory/Chest: Reports dyspnea; Denies cough Gastrointestinal Gastrointestinal: Denies diarrhea or vomiting Musculoskeletal Musculoskeletal: Denies none Integumentary Denies rash or wounds Neurologic Neurologic: Denies weakness EXAM Physical Exam Const Vital Signs: 09/10/24 05:54 09/10/24 05:57 Temperature 98.4 F Temperature Source Oral Pulse Rate 52 L Respiratory Rate 16 Respiratory Effort Normal Non-Labored Respiratory Pattern Normal Blood Pressure 134/59 H Blood Pressure Mean 84 Pulse Ox 100 Oxygen Delivery Method Room Air Positive well nourished and well developed General Appearance ED: well developed and NAD HEENT Reports moist mucous membranes normocephalic and atraumatic Eyes General Eye ED: Yes normal appearance of both eyes Neck full ROM Chest Wall Chest: Negative for tenderness Resp normal respiratory effort and normal air movement Effort and Inspection: symmetric chest movement; Negative for respiratory distress Cardio regular rhythm and no murmurs Rate: bradycardia Peripheral Pulses: pulses 2+ throughout GI normal to inspection, nondistended, normoactive bowel sounds and non-tender Palpation: Negative for guarding or rebound tenderness present Extremity normal to inspection General Extremety ED: Negative for edema or tenderness General Extremity: Negative for edema Neuro oriented x3 and no sensory deficits noted Sensorium / Orientation: awake and alert Skin Skin Narrative: Base of foot plantar aspect peeling skin however no erythema no drainage nontender. No swelling of the foot MDM MDM MDM Narrative Medical decision making narrative: Interventions / MDM: Differential diagnosis: Palpitations, UTI, Diagnosis considered but do not suspect: Pulmonary embolism however PERC criteria negative. Electrolyte abnormalities however labs are normal. My EKG interpretation: Sinus rhythm 63, no ST or T wave changes QTc 444. Imaging independently reviewed and interpreted by myself: N/A External documents reviewed: Seen in the ED a week ago foot x-ray negative started on Cipro. Test considered but not ordered:N/A ED course: Reports social fluttering causing dyspnea. Reporting some paresthesias likely from her breathing fast at home or anxiety. Heart rate in the monitor 50s to low 60s. Sinus rhythm. For recent chills and urine symptoms. Will check EKG basic labs and urine. Will reevaluate. Urine with signs of infection, also symptomatic. With her finishing Cipro having symptoms we will send for culture. Will start Keflex. Labs are stable. Reassuring findings close with patient possible outpatient Holter monitor reviewed with For which she had before. All questions were answered. Re-evaluation: stable Disposition discussed with patient/family/significant other: Patient and mother Case discussed with consulting clinician: N/A This note was generated with [employer] software. It may contain incorrectwords, spelling, and punctuation that were not noted in checking the note beforesigning. Lab Data Attestation: I reviewed the patient's lab results. Labs: Laboratory Results - last 24 hr 09/10/24 09/10/24 06:26 06:42 WBC 3.7 L RBC 3.77 L Hgb 13.2 Hct 37.7 MCV 100.0 H MCH 35.0 H MCHC 35.0 RDW Std Deviation 53.2 H RDW Coeff of Kristy 14.5 Plt Count 159 MPV 11.0 Immature Gran % (Auto) 0.300 Neut % (Auto) 53.4 Lymph % (Auto) 27.9 Amelia % (Auto) 14.8 H Eos % (Auto) 3.3 Baso % (Auto) 0.3 Absolute Neuts (auto) 2.0 Absolute Lymphs (auto) 1.02 Nucleated RBC % 0 Sodium 141 Potassium 4.0 Chloride 104 Carbon Dioxide 24.4 Anion Gap 12 BUN 12 Creatinine 0.83 Estim Creat Clear Calc 74.27 Est GFR (MDRD) Non-Af 92 BUN/Creatinine Ratio 14.6 Glucose 97 Calcium 9.2 Urine Color Yellow Urine Clarity Clear Urine pH 7.0 Ur Specific [place] 1.010 Urine Protein 15 H Urine Glucose (UA) Normal Urine Ketones Negative Urine Occult Blood Negative Urine Nitrite Negative Urine Bilirubin Negative Urine Urobilinogen Normal Ur Leukocyte Esterase 500 H Urine RBC 0 SEEN Urine WBC 10-25 SEEN Ur Squamous Epith Cells 5-10 SEEN Urine Bacteria 0 SEEN Urine Mucus 0 SEEN Discharge Plan Triage Chief Complaint: General Illness ED Provider: Marvin Edouard Dx/Rx/DC Orders Clinical Impression: Palpitations, Nonrheumatic mitral (valve) prolapse, UTI (urinary tract infection) Instructions: Urinary Tract Infections in Women, ED Palpitations Prescriptions: New cephalexin 500 mg capsule 500 mg PO Q12 Qty: 14 0RF No Action metronidazole 1 % gel 1 applic topical DAILY PRN vitamin B complex Tablet 1 tab PO QDAY Rx Instructions: pt reports she takes one B complex gummy per day, unsure on strength rosuvastatin 10 mg tablet 5 mg PO DAILY 30 Days Qty: 30 4RF cetirizine 10 mg capsule 10 mg PO DAILY vitamin E (dl, acetate) 400 UNITS capsule 400 units PO DAILY docusate sodium [Stool Softener] 100 mg capsule 100 mg PO DAILY PRN (Reason: constipation) Patient Comments: Over the counter estradiol [Shaye] 0.1 mg/24 hr patch semiweekly 1 patch topical SUWE fluvoxamine 100 mg tablet 100 mg PO DAILY albuterol sulfate 90 mcg/actuation HFA aerosol inhaler 2 inh INHALATION Q4H PRN (Reason: shortness of breath or wheezing) Patient Comments: [NO ORIGINAL SIG] cholecalciferol (vitamin D3) [D3 DOTS] 50 mcg (2,000 unit) tablet 50 mcg PO DAILY Primary Care Provider: Emily Sanders Referrals: Emily Sanders MD [Primary Care Provider] - 1 Week Activity Restrictions/Additional Instructions: EKG normal no heart blocks rate in the 60s. The monitor area run in the 40s and50s. Labs are stable urine did note signs of infection. Culture sent. Take antibiotic as prescribed. Follow-up with your doctor for reevaluation and further testing as needed. Print Language: Nepalese Disposition Disposition: Home, Self Care What to do if you have Problems For any increased pain, shortness of breath, bleeding, nausea or vomiting, chestpain, or any unexpected problems, contact your Primary Care Provider. Call [facility] ([phone]) or report to the closest Emergency Room. Call 911 if necessary. 09/10/24 0737 <Electronically signed by Marvin Zepeda> Cosigner Signature (if applicable): CC: Dr. Emily Sanders MD ~ Signed [facility] Work Phone: Evaluation + Plan note No data available for this section [facility] Evaluation note* Diagnosis Premature ovarian failure Other ovarian dysfunction documented [facility] this encounter [facility] [place] [facility]* Diagnosis Encounter for gynecological examination (general) (routine) without abnormal findings- Primary Premature ovarian failure Other ovarian dysfunction Screening for cervical cancer Screening for malignant neoplasm of the cervix Encounter for screening for human papillomavirus (HPV) Special screening examination for human papillomavirus (HPV) documented in this encounter [facility] [place] [facility]* Diagnosis Onset Date Resolution Status Chronic leukopenia chronic Lymphopenia acute Chronic leukopenia chronic Encounter for vitamin deficiency screening acute Screening for thyroid disorder acute Anxiety and depression chron ic Chronic neck pain chronic Hypersomnolence chronic Palpitations acute Chest pain, unspecified resaw carriage operator kevyn Nonrheumatic mitral (valve) prolapse chronic [facility] Work Phone: Evaluation note* Diagnosis Onset Date Resolution Status Cervical radiculopathy chron ic Chronic neck pain chronic Degenerative disc disease, cervical acute Pain of cervical spine nonea ctive [facility] Work Phone: Evaluation note* Diagnosis Friable cervix- Primary Other specified noninflammatory disorder of cervix Breakthrough bleeding on OCPs Metrorrhagia Vagina itching Pruritus of genital organs documented in this encounter [facility] [place] [facility]* Diagnosis Encounter for gynecological examination (general) (routine) without abnormal findings- Primary Premature ovarian failure Other ovarian dysfunction Breakthrough bleeding on control pills Metrorrhagia documented in this encounter [facility] [place] [facility]* Diagnosis APPOINTMENT CANCELLED- Primary documented in this encounter [facility] [place] [facility]* Diagnosis Onset Date Resolution Status Palpitations acute Chest pain, unspecified resaw carriage operator kevyn Nonrheumatic mitral (valve) prolapse chronic Cystitis acute [facility] Work Phone: Evaluation note* Diagnosis Onset Date Resolution Status Palpitations acute Chest pain, unspecified resaw carriage operator kevyn Nonrheumatic mitral (valve) prolapse chronic Cystitis acute Cystitis acute [facility] Work Phone: Evaluation note* Diagnosis Encounter for gynecological examination (general) (routine) without abnormal findings- Primary Premature ovarian failure Other ovarian dysfunction Breakthrough bleeding on control pills Metrorrhagia Surveillance for control, oral contraceptives Surveillance of previously prescribed contraceptive pill Uterine leiomyoma, unspecified location Obesity, Class I, BMI 30-34.9 Obesity, unspecified documented in this encounter [facility] note* Diagnosis Onset Date Resolution Status Cystitis acute Dysuria acute Chronic leukopenia chronic Lymphopenia acute Chronic leukopenia chronic Hyperglycemia acute Preventative health care acu te Screening for thyroid disorder acute [facility] Work Phone: Evaluation note* Diagnosis Breakthrough bleeding on control pills Metrorrhagia Uterine leiomyoma, unspecified location [facility] Diagnosis Intramural and subserous leiomyoma of uterus- Primary Pelvic pressure in female Other specified symptom associated with female genital organs Urinary frequency Premature ovarian failure Other ovarian dysfunction [facility] [place] [facility] Diagnosis Pelvic pain in female- Primary Unspecified symptom associated with female genital organs Intramural and subserous leiomyoma of uterus Preop examination Preoperative examination, unspecified [facility] [place] [facility] Diagnosis Preop testing- Primary Preoperative examination, unspecified Intramural and subserous leiomyoma of uterus Pelvic pain in female Unspecified symptom associated with female genital organs Preop examination Preoperative examination, unspecified documented in this encounter [facility] note* Diagnosis Educational circumstances- Primary Educational circumstance Intramural and subserous leiomyoma of uterus Pelvic pain in female Unspecified symptom associated with female genital organs Preop examination Preoperative examination, unspecified documented in this encounter [facility] note* Diagnosis Pre-operative examination- Primary Preoperative [...] * Assessment & Plan Note - Adeline aJma APRN.CNP - 11/10/2023 9:45 AM EDT Associated Problem(s): BCC (basal cell carcinoma of skin) Assessment: s/p excision * Assessment & Plan Note - Adeline Jama APRN.CNP - 11/09/2023 11:59 AM EDT Associated Problem(s): Mitral valve prolapse Images from the original note were not included. Assessment: hx, asymptomatic, following cardiology 11/03/22 Javi Rivero CNP, [facility] * Assessment & Plan Note [...] 11.00 k/uL Final 10/06/23 Dr. Braun, [facility] [place] documented in this encounter [facility] note* Diagnosis Pre-operative examination- Primary Preoperative examination, unspecified Leukopenia, unspecified type Thrombocytopenia (HCC) Thrombocytopenia, unspecified Fatty liver Other chronic nonalcoholic liver disease Mitral valve prolapse Mitral valve disorders Basal cell carcinoma (BCC), unspecified site Mixed anxiety depressive disorder Dysthymic disorder Obesity, Class I, BMI 30-34.9 Obesity, unspecified Post-operative state- Primary Other postprocedural status documented in this encounter [facility] note* Diagnosis Pre-operative examination- Primary Preoperative [...] Other ovarian dysfunction documented in this encounter [facility] note* Diagnosis Pre-operative examination- Primary Preoperative examination, unspecified Leukopenia, unspecified type Thrombocytopenia (HCC) Thrombocytopenia, unspecified Fatty liver Other chronic nonalcoholic liver disease Mitral valve prolapse Mitral valve disorders Basal cell carcinoma (BCC), unspecified site Mixed anxiety depressive disorder Dysthymic disorder Obesity, Class I, BMI 30-34.9 Obesity, unspecified Vaginal discharge- Primary Leukorrhea, not specified as infective documented in this encounter [facility] note* Diagnosis Pre-operative examination- Primary Preoperative examination, unspecified Leukopenia, unspecified type Thrombocytopenia (HCC) Thrombocytopenia, unspecified Fatty liver Other chronic nonalcoholic liver disease Mitral valve prolapse Mitral valve disorders Basal cell carcinoma (BCC), unspecified site Mixed anxiety depressive disorder Dysthymic disorder Obesity, Class I, BMI 30-34.9 Obesity, unspecified Abnormal uterine bleeding (AUB)- Primary documented in this encounter [facility] note* Diagnosis Pre-operative examination- Primary Preoperative [...] up with GI [facility] Diagnosis Influenza A- Primary Influenza with other respiratory manifestations Acute cough documented in this encounter [facility] Work Phone: Evaluation note* Diagnosis Pre-operative [...] for breast cancer documented in this encounter [facility] note* Diagnosis Pre-operative examination- Primary Preoperative [...] Need for prophylactic hormone replacement therapy (postmenopausal) Acute vaginitis- Primary Vaginitis and vulvovaginitis, unspecified Vulvar itching Pruritus of genital organs [facility] Additional Instructions Follow-up with your primary care provider in the next 3 to 5 days. Take all of the antibiotic as directed. Return with increased pain, new or worsening symptoms.[facility] Work Phone: Hospital Discharge instructionsAmbulatory Orders* Dental Location: None Selected [facility] Work Phone: Hospital Discharge instructions No data available for this section [facility] Hospital Discharge instructionsAdditional Instructions Follow-up with your PCP and return for any signs of infection or if you have any other concerns.[facility] Work Phone: Hospital Discharge instructionsAdditional Instructions EKG normal no heart blocks rate in the 60s. The monitor area run in the 40s and 50s. Labs are stable urine did note signs of infection. Culture sent. Take antibiotic as prescribed. Follow-up with your doctor for reevaluation and further testing as needed.[facility] Work Phone: Hospital Discharge instructionsAmbulatory Orders* Pulmonary Medicine Location: None Selected [facility] Work Phone: Progress note No data available for this section [facility] Reason for referral (narrative)* Diagnostic Procedure Only (Routine) - Pending Review Specialty Diagnoses / Procedures Referred By Ricardo hernández Referred To Contact [facility] Diagnoses Breakthrough bleeding on control pills Uterine leiomyoma, unspecified location Procedures PELVIC US I US PELVIC NONOBSTETRIC REAL-TIME IMAGE COMPLETE Sherly Ng APRN.CNP [address] [place] [address] [facility] [address] [place] [id number] Referral ID Status Reason Start Date Expiration Date Visits Requested Visits Authorized [id number] Pending Review Auto-Generat ed Referral 05/19/2023 05/18/2024 1 1 * Diagnostic Procedure Only (Routine) - Authorized Specialty Diagnoses / Procedures Referred By Ricardo hernández Referred To Contact [facility] Diagnoses Breakthrough bleeding on control pills Uterine leiomyoma, unspecified location Procedures US FEMALE PELVIS TRANSVAG US TRANSVAGINAL Sherly Ng APRN.CNP [address] [place] [address] [place] [address] Referral ID Status Reason Start Date Expiration Date Visits Requested Visits Authorized [id number] Authorized Auto-Generat ed Referral 05/19/2023 06/17/2024 1 1 [facility] for referral (narrative)* Diagnostic Procedure Only (Routine) - Authorized Specialty Diagnoses / Procedures Referred By Ricardo hernández Referred To Contact [facility] Diagnoses Encounter for screening mammogram for malignant neoplasm of breast Procedures GUSTAVO SCREENING W LOW SCREENING DIGITAL BREAST TOMOSYNTHESIS BI SCREENING MAMMOGRAPHY BI 2-VIEW BREAST INC CAD Leo Barnett MD [address] [place] [address] [facility] [address] [place] [address] Referral ID Status Reason Start Date Expiration Date Visits Requested Visits Authorized [id number] Authorized Auto-Generat ed Referral 02/11/2024 03/12/2025 1 1 [facility] for referral (narrative)No reason for referral information availableWUniversity [facility] Work Phone: Reason for visit Narrative* Diagnostic Procedure Only (Routine) - Closed Specialty Diagnoses / Procedures Referred By Ricardo hernández Referred To Contact [facility] Diagnoses Breakthrough bleeding on control pills Uterine leiomyoma, unspecified location Procedures US FEMALE PELVIS TRANSVAG US TRANSVAGINSherly Salomon APRN.CNP [address] [place] [address] [place] [address] Referral ID Status Reason Start Date Expiration Date V isits Requested Visits Authorized [id number] Closed Auto-Generate d Referral 05/19/2023 06/17/2024 1 1 [facility] Summary Purpose Family History No Family History [...] Date/ Time Living Will No February 01, 10:35pm Power of Actuarial Director No February 01, 2023 10:35pm Advance Directive Response Recorded Date/ Time Living Will No February 01 023 11:35pm Power of Actuarial Director No February 01, 2023 11:35pm Advance Directive Response Recorded Date/ Time Living Will No July 24, 2023 11:15am Power of Actuarial Director No July 23 11:15am Living Will No March 31 025 6:29am Power of Actuarial Director No March 31, 2024 6:29am Living Will No April 03 10:35am Power of Actuarial Director No April 03, 2024 10:35am Advance Directive Response Recorded Date/ Time Living Will No March 31 025 7:29am Do you have a Healthcare Power of Actuarial Director? No March 31, 2024 7:29am Living Will No April 03 11:35am Do you have a Healthcare Power of Actuarial Director? No April 03, 2024 11:35am Living Will No July 24, 2023 12:15pm Do you have a Healthcare Power of Actuarial Director? No July 24, 2023 12:15pm Advance Directive Response Recorded Date/ Time Living Will No March 31 7:29am Do you have a Healthcare Power of Actuarial Director? No March 31, 2024 7:29am Living Will No April 03 11:35am Do you have a Healthcare Power of Actuarial Director? No April 03, 2024 11:35am Advance Directive Response Recorded Date/ Time Do you have a Healthcare Power of Actuarial Director? No September 03, 2024 3:17pm Advance Directive Response Recorded Date/ Time Do you have a Healthcare Power of Actuarial Director? No September 03, 2024 3:17pm Do you have a Healthcare Power of Actuarial Director? No September 10, 2024 5:57am Advance Directive Response Recorded Date/ Time Do you have a Healthcare Power of Actuarial Director? No September 03, 2024 3:17pm Do you have a Healthcare Power of Actuarial Director? No September 10, 2024 5:57am Do you have a Healthcare Power of Actuarial Director? No October 28, 2024 12:00pm Chief Complaint and Reason for Visit Chief [...] for Visit Admit Date COELHO (nonalcoholic steatohepatitis) Maury elizondo 2023 3:56pm Osteopenia December 31, 2023 3:56pm Costochondritis April 04, 2024 9:10am Hypersomnolence April 04, 2024 9:10am Influenza A April 04, 2024 9:10am Chief Complaint Admit Date FATTY LIVER January 12, 2024 9 :52am PALPITATIONS January 18, 2024 1 2:13pm PALPITATIONS January 18, 2024 2 :59pm FATTY LIVER February 08, 2024 2:01pm OSTEOPENIA, PREMATURE OVARIAN FAILURE Ja nuary 2024 2:07pm cold March 31, 2024 6:25am [...] NAFLD MILD/MODERATE SCARRING June 29, 025 8:01am Reason for Visit Admit Date [...] foot injury September 03, 2024 2:55 pm [facility] FOLLOW UP September 09, 2024 12: 14pm Chief Complaint Admit Date COUGH, MUCUS, CHEST CONGESTION June 20, 2024 7:52am FATTY LIVER June 27, 2024 9:34a m NAFLD MILD/MODERATE SCARRING June 29, 2 025 8:01am FU July 19, 2024 12:0 1pm HEM/ONC July 28, 2024 11:1 5am foot injury September 03, 2024 2:55 pm [facility] FOLLOW UP September 09, 2024 12: 14pm general illness September 10, 2024 5:5 1am Reason for Visit Admit Date Common bile [...] 5am Lymphopenia July 28, 2024 11:1 5am Puncture wound of right foot September 09, 2024 12:14pm Chief Complaint Admit Date COUGH, MUCUS, CHEST CONGESTION June 20, 2024 7:52am FATTY LIVER June 27, 2024 9:34a m NAFLD MILD/MODERATE SCARRING June 29, 2 025 8:01am FU July 19, 2024 12:0 1pm HEM/ONC July 28, 2024 11:1 5am foot injury September 03, 2024 2:55 pm [facility] FOLLOW UP September 09, 2024 12: 14pm general illness September 10, 2024 5:5 1am ER/bradyicardia September 23, 2024 8: 53am Reason for Visit Admit Date Common bile [...] 5am Lymphopenia July 28, 2024 11:1 5am Puncture wound of right foot September 09, 2024 12:14pm Bradycardia September 23, 2024 8: 53am Palpitations September 23, 2024 8: 53am Chest pain, unspecified September 23 8:53am Chief Complaint Admit Date COUGH, MUCUS, CHEST CONGESTION June 20, 2024 7:52am FATTY LIVER June 27, 2024 9:34a m NAFLD MILD/MODERATE SCARRING June 29, 2 025 8:01am FU July 19, 2024 12:0 1pm HEM/ONC July 28, 2024 11:1 5am foot injury September 03, 2024 2:55 pm [facility] FOLLOW UP September 09, 2024 12: 14pm general illness September 10, 2024 5:5 1am ER/bradyicardia September 23, 2024 8: 53am E ORDERS September 23, 2024 9: 53am Reason for Visit Admit Date Common bile [...] 5am Lymphopenia July 28, 2024 11:1 5am Puncture wound of right foot September 09, 2024 12:14pm Bradycardia September 23, 2024 8: 53am NICA (obstructive sleep apnea) September 8:53am Palpitations September 23, 2024 8: 53am Chest pain, unspecified September 23 8:53am Chief Complaint Admit Date COUGH, MUCUS, CHEST CONGESTION June 20, 2024 7:52am FATTY LIVER June 27, 2024 9:34a m NAFLD MILD/MODERATE SCARRING June 29, 025 8:01am FU July 19, 2024 12:0 1pm Acute July 28, 2024 11:1 5am foot injury September 03, 2024 2:55 pm [facility] FOLLOW UP September 09, 2024 12: 14pm general illness September 10, 2024 5:5 1am ER/bradyicardia September 23, 2024 8: 53am E ORDERS September 23, 2024 9: 53am PALPITATIONS September 29, 2024 1: 15pm HEM/ONC October 11, 2024 1:14pm Rectal Bleeding/Itching October 11, 025 2:56pm Reason for Visit Admit Date Common bile [...] 5am Monocytosis July 28, 2024 11:1 5am Puncture wound of right foot September 09, 2024 12:14pm Bradycardia September 23, 2024 8: 53am NICA (obstructive sleep apnea) September 8:53am Palpitations September 23, 2024 8: 53am Chest pain, unspecified September 23 8:53am Lymphopenia October 11, 2024 1:14pm Chronic leukopenia October 11, 2024 1:14pm Rectal bleeding October 11, 2024 2:56pm Rectal itching October 11, 2024 2:56pm Rectal pain October 11, 2024 2:56pm Chief Complaint Admit Date COUGH, MUCUS, CHEST CONGESTION June 20, 2024 7:52am FATTY LIVER June 27, 2024 9:34a m NAFLD MILD/MODERATE SCARRING June 29, 2 025 8:01am FU July 19, 2024 12:0 1pm Acute July 28, 2024 11:1 5am foot injury September 03, 2024 2:55 pm [facility] FOLLOW UP September 09, 2024 12: 14pm general illness September 10, 2024 5:5 1am ER/bradyicardia September 23, 2024 8: 53am E ORDERS September 23, 2024 9: 53am PALPITATIONS September 29, 2024 1: 15pm HEM/ONC October 11, 2024 1:14pm Rectal Bleeding/Itching October 11 2 025 2:56pm 3 M FU October 12, 2024 9:30am Reason for Visit Admit Date Common bile [...] 5am Monocytosis July 28, 2024 11:1 5am Puncture wound of right foot September 09, 2024 12:14pm Bradycardia September 23, 2024 8: 53am NICA (obstructive sleep apnea) September 8:53am Palpitations September 23, 2024 8: 53am Chest pain, unspecified September 23 8:53am Lymphopenia October 11, 2024 1:14pm Chronic leukopenia October 11, 2024 1:14pm Rectal bleeding October 11, 2024 2:56pm Rectal itching October 11, 2024 2:56pm Rectal pain October 11, 2024 2:56pm Drug-induced liver injury October 12, 2024 9:30am Metabolic dysfunction-associated steatoh epatitis (MASH) October 12, 2024 9:30am Chief Complaint Admit Date COUGH, MUCUS, CHEST CONGESTION June 20, 2024 7:52am FATTY LIVER June 27, 2024 9:34a m NAFLD MILD/MODERATE SCARRING June 29, 2 025 8:01am FU July 19, 2024 12:0 1pm Acute July 28, 2024 11:1 5am foot injury September 03, 2024 2:55 pm [facility] FOLLOW UP September 09, 2024 12: 14pm general illness September 10, 2024 5:5 1am ER/bradyicardia September 23, 2024 8: 53am E ORDERS September 23, 2024 9: 53am PALPITATIONS September 29, 2024 1: 15pm HEM/ONC October 11, 2024 1:14pm Rectal Bleeding/Itching October 11 2 025 2:56pm 3 M FU October 12, 2024 9:30am 6MO LABS PRIOR October 18, 2024 11:15am Reason for Visit Admit Date Common bile [...] 5am Monocytosis July 28, 2024 11:1 5am Puncture wound of right foot September 09, 2024 12:14pm Bradycardia September 23, 2024 8: 53am NICA (obstructive sleep apnea) September 8:53am Palpitations September 23, 2024 8: 53am Chest pain, unspecified September 23 8:53am Lymphopenia October 11, 2024 1:14pm Chronic leukopenia October 11, 2024 1:14pm Rectal bleeding October 11, 2024 2:56pm Rectal itching October 11, 2024 2:56pm Rectal pain October 11, 2024 2:56pm Drug-induced liver injury October 12, 2024 9:30am Elevated transaminase level October 9:30am Metabolic dysfunction-associated steatoh epatitis (MASH) October 12, 2024 9:30am Chronic leukopenia October 18, 2024 11:15am Monocytosis October 18, 2024 11:15am Chief Complaint Admit Date FATTY LIVER June 27, 2024 9:34a m NAFLD MILD/MODERATE SCARRING June 29, 2 025 8:01am FU July 19, 2024 12:0 1pm Acute July 28, 2024 11:1 5am foot injury September 03, 2024 2:55 pm [facility] FOLLOW UP September 09, 2024 12: 14pm general illness September 10, 2024 5:5 1am ER/bradyicardia September 23, 2024 8: 53am E ORDERS September 23, 2024 9: 53am PALPITATIONS September 29, 2024 1: 15pm HEM/ONC October 11, 2024 1:14pm Rectal Bleeding/Itching October 11 2 025 2:56pm 3 M FU October 12, 2024 9:30am 6MO LABS PRIOR October 18, 2024 11:15am Sleep apnea October 21, 2024 9:37am Reason for Visit Admit Date Common bile [...] 5am Monocytosis July 28, 2024 11:1 5am Puncture wound of right foot September 09, 2024 12:14pm Bradycardia September 23, 2024 8: 53am NICA (obstructive sleep apnea) September 8:53am Palpitations September 23, 2024 8: 53am Chest pain, unspecified September 23 8:53am Lymphopenia October 11, 2024 1:14pm Chronic leukopenia October 11, 2024 1:14pm Rectal bleeding October 11, 2024 2:56pm Rectal itching October 11, 2024 2:56pm Rectal pain October 11, 2024 2:56pm Drug-induced liver injury October 12, 2024 9:30am Elevated transaminase level October 9:30am Metabolic dysfunction-associated steatoh epatitis (MASH) October 12, 2024 9:30am Chronic leukopenia October 18, 2024 11:15am Monocytosis October 18, 2024 11:15am NICA (obstructive sleep apnea) October 21, 2024 9:37am Palpitations October 21, 2024 9:37am Chief Complaint Admit Date FU July 19, 2024 12:0 1pm Acute July 28, 2024 11:1 5am foot injury September 03, 2024 2:55 pm [facility] FOLLOW UP September 09, 2024 12: 14pm general illness September 10, 2024 5:5 1am ER/bradyicardia September 23, 2024 8: 53am E ORDERS September 23, 2024 9: 53am 30 DAY MONITOR September 29, 2024 8: 00am PALPITATIONS September 29, 2024 1: 15pm HEM/ONC October 11, 2024 1:14pm Rectal Bleeding/Itching October 11, 025 2:56pm 3 M FU October 12, 2024 9:30am 6MO LABS PRIOR October 18, 2024 11:15am Sleep apnea October 21, 2024 9:37am PALPITATIONS, TRIVIAL VALVE October 252024 12:41pm Reason for Visit Admit Date Drug-induced liver injury July 19 12:01pm Elevated liver enzymes July 19, 2024 1 2:01pm Metabolic dysfunction-associated steatoh epatitis (MASH) July 19, 2024 12:01pm Chronic leukopenia July 28, 2024 11:1 5am Monocytosis July 28, 2024 11:1 5am Puncture wound of right foot September 09, 2024 12:14pm Bradycardia September 23, 2024 8: 53am NICA (obstructive sleep apnea) September 8:53am Palpitations September 23, 2024 8: 53am Chest pain, unspecified September 23 8:53am Lymphopenia October 11, 2024 1:14pm Chronic leukopenia October 11, 2024 1:14pm Rectal bleeding October 11, 2024 2:56pm Rectal itching October 11, 2024 2:56pm Rectal pain October 11, 2024 2:56pm Drug-induced liver injury October 12, 2024 9:30am Elevated transaminase level October 9:30am Metabolic dysfunction-associated steatoh epatitis (MASH) October 12, 2024 9:30am Chronic leukopenia October 18, 2024 11:15am Monocytosis October 18, 2024 11:15am NICA (obstructive sleep apnea) October 21, 2024 9:37am Palpitations October 21, 2024 9:37am Rectal bleeding October 31, 2024 8:20am Rectal itching October 31, 2024 8:20am Rectal pain October 31, 2024 8:20am Reason for Referral Specialty Diagnoses / Procedures Referred By Contac t Referred To Contact Diagnoses Intramural and subserous leiomyoma of uterus Pelvic pressure in female Procedures CONSULT TO MINIMALLY INVASIVE GYNECOLOGIC SURGERY Leo Barnett MD [address] [place] [address] [facility] [address] [place] [address] Phone: [phone] Referral ID Status Reason Start Date Expiration Date Visits Requested Visits Authorized [id number] Ref Not Required PCP Requested Referral 08/12/2023 08/11/2024 1 1 Specialty Diagnoses / Procedures Referred By Contac t Referred To Contact Diagnoses Intramural and subserous leiomyoma of uterus Procedures CONSULT TO MINIMALLY INVASIVE GYNECOLOGIC SURGERY OFFICE/OUTPATIENT [facility] 60 MINUTES Leo Barnett MD [address] [place] [address] Referral ID Status Reason Start Date Expiration Date Visits Requested Visits Authorized [id number] Authorized PCP Requested Referral Auto-Generate d Referral 08/12/2023 08/11/2024 1 1 Additional Source Comments INFORMATION SOURCE (unrecogn ized section and content) DATE CREATED AUTHOR 11/25/2018 [facility] ([place]) DATE CREATED AUTHOR AUTHOR'S ORGANIZ ATION 01/22/2021 [facility] DATE CREATED AUTHOR AUTHOR'S ORGANIZ ATION 03/30/[address] [facility] DATE CREATED AUTHOR AUTHOR'S ORGANIZ ATION 07/17/2024 [facility] DATE CREATED AUTHOR AUTHOR'S ORGANIZ ATION 11/10/2024 [facility] DATE CREATED AUTHOR AUTHOR'S ORGANIZ ATION 12/19/2024 [facility] <item> Privacy Markings (unrecogniz ed section and [...] or prosecute any alcohol or drug abuse patient.[facility] the event this information is protected by the Federal Confidentiality of Alcohol and Drug Abuse Patient Records regulations: The Federal rules restrict any use of the information to criminally investigate or prosecute any alcohol or drug abuse patient.[facility] Hospital[facility] the event this information is protected by the Federal Confidentiality of Alcohol and Drug Abuse Patient Records regulations: The Federal rules restrict any use of the information to criminally investigate or prosecute any alcohol or drug abuse patient.[facility] Hospital[facility] the event this information is protected by the Federal Confidentiality of Alcohol and Drug Abuse Patient Records regulations: The Federal rules restrict any use of the information to criminally investigate or prosecute any alcohol or drug abuse patient.[facility] Hospital[facility] the event this information is protected by the Federal Confidentiality of Alcohol and Drug Abuse Patient Records regulations: The Federal rules restrict any use of the information to criminally investigate or prosecute any alcohol or drug abuse patient.[facility] Hospital[facility] the event this information is protected by the Federal Confidentiality of Alcohol and Drug Abuse Patient Records regulations: The Federal rules restrict any use of the information to criminally investigate or prosecute any alcohol or drug abuse patient.[facility] Hospital[facility] the event this information is protected by the Federal Confidentiality of Alcohol and Drug Abuse Patient Records regulations: The Federal rules restrict any use of the information to criminally investigate or prosecute any alcohol or drug abuse patient.[facility] Hospital[facility] the event this information is protected by the Federal Confidentiality of Alcohol and Drug Abuse Patient Records regulations: The Federal rules restrict any use of the information to criminally investigate or prosecute any alcohol or drug abuse patient.[facility] HospitalIn the event this information is protected by the Federal Confidentiality of Alcohol and Drug Abuse Patient Records regulations: The Federal rules restrict any use of the information to criminally investigate or prosecute any alcohol or drug abuse patient.[facility] HospitalIn the event this information is protected by the Federal Confidentiality of Alcohol and Drug Abuse Patient Records regulations: The Federal rules restrict any use of the information to criminally investigate or prosecute any alcohol or drug abuse patient.[facility] HospitalIn the event this information is protected by the Federal Confidentiality of Alcohol and Drug Abuse Patient Records regulations: The Federal rules restrict any use of the information to criminally investigate or prosecute any alcohol or drug abuse patient.[facility] HospitalIn the event this information is protected by the Federal Confidentiality of Alcohol and Drug Abuse Patient Records regulations: The Federal rules restrict any use of the information to criminally investigate or prosecute any alcohol or drug abuse patient.[facility] HospitalIn the event this information is protected by the Federal Confidentiality of Alcohol and Drug Abuse Patient Records regulations: The Federal rules restrict any use of the information to criminally investigate or prosecute any alcohol or drug abuse patient.[facility] HospitalIn the event this information is protected by the Federal Confidentiality of Alcohol and Drug Abuse Patient Records regulations: The Federal rules restrict any use of the information to criminally investigate or prosecute any alcohol or drug abuse patient.[facility] HospitalIn the event this information is protected by the Federal Confidentiality of Alcohol and Drug Abuse Patient Records regulations: The Federal rules restrict any use of the information to criminally investigate or prosecute any alcohol or drug abuse patient.[facility] HospitalIn the event this information is protected by the Federal Confidentiality of Alcohol and Drug Abuse Patient Records regulations: The Federal rules restrict any use of the information to criminally investigate or prosecute any alcohol or drug abuse patient.[facility] HospitalIn the event this information is protected by the Federal Confidentiality of Alcohol and Drug Abuse Patient Records regulations: The Federal rules restrict any use of the information to criminally investigate or prosecute any alcohol or drug abuse patient.[facility] HospitalIn the event this information is protected by the Federal Confidentiality of Alcohol and Drug Abuse Patient Records regulations: The Federal rules restrict any use of the information to criminally investigate or prosecute any alcohol or drug abuse patient.[facility] HospitalIn the event this information is protected by the Federal Confidentiality of Alcohol and Drug Abuse Patient Records regulations: The Federal rules restrict any use of the information to criminally investigate or prosecute any alcohol or drug abuse patient.[facility] HospitalIn the event this information is protected by the Federal Confidentiality of Alcohol and Drug Abuse Patient Records regulations: The Federal rules restrict any use of the information to criminally investigate or prosecute any alcohol or drug abuse patient.[facility] HospitalIn the event this information is protected by the Federal Confidentiality of Alcohol and Drug Abuse Patient Records regulations: The Federal rules restrict any use of the information to criminally investigate or prosecute any alcohol or drug abuse patient.[facility] HospitalIn the event this information is protected by the Federal Confidentiality of Alcohol and Drug Abuse Patient Records regulations: The Federal rules restrict any use of the information to criminally investigate or prosecute any alcohol or drug abuse patient.[facility] HospitalIn the event this information is protected by the Federal Confidentiality of Alcohol and Drug Abuse Patient Records regulations: The Federal rules restrict any use of the information to criminally investigate or prosecute any alcohol or drug abuse patient.[facility] HospitalIn the event this information is protected by the Federal Confidentiality of Alcohol and Drug Abuse Patient Records regulations: The Federal rules restrict any use of the information to criminally investigate or prosecute any alcohol or drug abuse patient.[facility] HospitalIn the event this information is protected by the Federal Confidentiality of Alcohol and Drug Abuse Patient Records regulations: The Federal rules restrict any use of the information to criminally investigate or prosecute any alcohol or drug abuse patient.[facility] HospitalIn the event this information is protected by the Federal Confidentiality of Alcohol and Drug Abuse Patient Records regulations: The Federal rules restrict any use of the information to criminally investigate or prosecute any alcohol or drug abuse patient.[facility] HospitalIn the event this information is protected by the Federal Confidentiality of Alcohol and Drug Abuse Patient Records regulations: The Federal rules restrict any use of the information to criminally investigate or prosecute any alcohol or drug abuse patient.[facility] HospitalIn the event this information is protected by the Federal Confidentiality of Alcohol and Drug Abuse Patient Records regulations: The Federal rules restrict any use of the information to criminally investigate or prosecute any alcohol or drug abuse patient.[facility] HospitalIn the event this information is protected by the Federal Confidentiality of Alcohol and Drug Abuse Patient Records regulations: The Federal rules restrict any use of the information to criminally investigate or prosecute any alcohol or drug abuse patient.[facility] HospitalIn the event this information is protected by the Federal Confidentiality of Alcohol and Drug Abuse Patient Records regulations: The Federal rules restrict any use of the information to criminally investigate or prosecute any alcohol or drug abuse patient.[facility] HospitalIn the event this information is protected by the Federal Confidentiality of Alcohol and Drug Abuse Patient Records regulations: The Federal rules restrict any use of the information to criminally investigate or prosecute any alcohol or drug abuse patient.[facility] HospitalIn the event this information is protected by the Federal Confidentiality of Alcohol and Drug Abuse Patient Records regulations: The Federal rules restrict any use of the information to criminally investigate or prosecute any alcohol or drug abuse patient.[facility] HospitalIn the event this information is protected by the Federal Confidentiality of Alcohol and Drug Abuse Patient Records regulations: The Federal rules restrict any use of the information to criminally investigate or prosecute any alcohol or drug abuse patient.[facility] Reason for Visit (unrecogniz ed section and content) Reason Comments Refill Request Reason Comments Yearly Exam Reason Comments Irregular Menstrual Cycle Reason Comments Appointment Cancelled Reason Comments Well Woman Reason Comments Results Appointment Reason Comments Consult Reason Comments Appointment Reason Comments Patient Question Reason Comments New Patient Specialty Diagnoses / Procedures Referred By Contac t Referred To Contact Diagnoses Intramural and subserous leiomyoma of uterus Procedures CONSULT TO MINIMALLY INVASIVE GYNECOLOGIC SURGERY OFFICE/OUTPATIENT NEW HIGH MDM 60 MINUTES Leo Barnett MD [address] [place] [address] Referral ID Status Reason Start Date Expiration Date V isits Requested Visits Authorized [id number] Closed PCP Requested Referral Auto-Generated Referral 08/12/2023 [...] X 4 days Reason Comments Well Woman Reason Comments Vaginal Problem Vaginal and rectal itching Care Teams (unrecognized sec tion and content) Lace Burn Out Tender Relationship Specialty Start Date End Date Emily Sanders MD [address] [facility] [address] [place] [address] PCP - General Internal Medicine 04/18/21 Lace Burn Out Tender Relationship Specialty Start Date End Date Emily Sanders MD [address] [facility] [address] [place] [address] PCP - General Internal Medicine 04/18/21 Lace Burn Out Tender Relationship Specialty Start Date End Date Emily Sanders MD [address] [facility] [address] [place] [phone] PCP - General Internal Medicine 04/18/21 Lace Burn Out Tender Relationship Specialty Start Date End Date Emily Sanders MD [address] [facility] [address] [place] [phone] PCP - General Internal Medicine 04/18/21 Lace Burn Out Tender Relationship Specialty Start Date End Date Emily Sanders MD [address] [facility] [address] [place] [address] PCP - General Internal Medicine 04/18/21 Team Status: Active Member Role Status Dates Dr. Emily Sanders MD Primary Care Provider Active Team Status: Inactive Member Role Status Dates Dr. Emily Sanders MD Primary Care Provider, Refer ring Provider Active Javi Rivero WELL DRILL OPERATOR HELPER CABLE TOOL, WELL DRILL OPERATOR HELPER CABLE TOOL-C Attending Provider Active Team Status: Inactive Member Role Status Dates Dr. Emily Sanders MD Primary Care Provider, Refer ring Provider Active Miki JOHNSON PA Attending Provider Active Team Status: Inactive Member Role Status Dates Dr. Emily Sanders MD Primary Care Provider Active Miki JOHNSON, PA Attending Provider Active Team Status: Inactive Member Role Status Dates Dr. Emily Sanders MD Primary Care Provider Active Umang Matos MD Emergency Provider Active Team Status: Inactive Member Role Status Dates Dr. Emily Sanders MD Primary Care Provider, Refer ring Provider Active Manolo JOHNSON, PA Attending Provider Active Team Status: Inactive Member Role Status Dates Dr. Emily Sanders MD Primary Care Provider Active Umang Matos MD Attending Provider, Emergency Provid er Active Team Status: Inactive Member Role Status Dates Dr. Emily Sanders MD Primary Care Provider, Atten ding Provider Active Lace Burn Out Tender Relationship Specialty Start Date End Date Eimly Sanders MD [address] [place] [address] (Fax) PCP - General Internal Medicine 04/18/21 [...] Emily Sanders MD Primary Care Provider Active Lace Burn Out Tender Relationship Specialty Start Date End Date Emily Sanders MD [address] [place] [address] PCP - General Internal Medicine 04/18/21 Lace Burn Out Tender Relationship Specialty Start Date End Date Emily Sanders MD [address] [place] [address] PCP - General Internal Medicine 04/18/21 Lace Burn Out Tender Relationship Specialty Start Date End Date Emily Sanders MD [address] [place] [address] PCP - General Internal Medicine 04/18/21 Lace Burn Out Tender Relationship Specialty Start Date End Date Emily Sanders MD [address] [place] [address] PCP - General Internal Medicine 04/18/21 Lace Burn Out Tender Relationship Specialty Start Date End Date Emily Sanders MD [address] [place] [address] PCP - General Internal Medicine 04/18/21 Lace Burn Out Tender Relationship Specialty Start Date End Date Emily Sanders MD [address] [place] [address] PCP - General Internal Medicine 04/18/21 Lace Burn Out Tender Relationship Specialty Start Date End Date Emily Sanders MD [address] [place] [address] PCP - General Internal Medicine 04/18/21 Lace Burn Out Tender Relationship Specialty Start Date End Date Emily Sanders MD [address] [place] [address] PCP - General Internal Medicine 04/18/21 Lace Burn Out Tender Relationship Specialty Start Date End Date Emily Sanders MD [address] [place] [address] PCP - General Internal Medicine 04/18/21 Lace Burn Out Tender Relationship Specialty Start Date End Date Emily Sanders MD [address] [place] [address] PCP - General Internal Medicine 04/18/21 Lace Burn Out Tender Relationship Specialty Start Date End Date Emily Sanders MD [address] [place] [address] PCP - General Internal Medicine 04/18/21 Lace Burn Out Tender Relationship Specialty Start Date End Date Emily Sanders MD [address] [place] [address] PCP - General Internal Medicine 04/18/21 Lace Burn Out Tender Relationship Specialty Start Date End Date Emily Sanders MD [address] [place] [address] PCP - General Internal Medicine 04/18/21 Lace Burn Out Tender Relationship Specialty Start Date End Date Emily Sanders MD [address] [place] [address] PCP - General Internal Medicine 04/18/21 Lace Burn Out Tender Relationship Specialty Start Date End Date Emily Sanders MD [address] [place] [address] PCP - General Internal Medicine 04/18/21 Lace Burn Out Tender Relationship Specialty Start Date End Date Emily Sanders MD [address] [place] [address] PCP - General Internal Medicine 04/18/21 Lace Burn Out Tender Relationship Specialty Start Date End Date Emily Sanders MD [address] [place] [address] PCP - General Internal Medicine 04/18/21 Lace Burn Out Tender Relationship Specialty Start Date End Date Emily Sanders MD [address] [place] [address] [place] [address] (work) PCP - General Internal Medicine 03/29/24 Team [...] 04, 2024 End: April 04, 2024 Dr. mEily Sanders MD Referring Provider Active Start: April [...] 2024 DEFINED NOT Referring Provider Active Start: [facility] 2024 Dr. Emily Sanders MD Primary Care [...] Referring Provider Active Start: April 27, 2024 Lace Burn Out Tender Relationship Specialty Start Date End Date Emily Sanders MD [address] [place] [phone] PCP - General Internal Medicine 04/18/21 Lace Burn Out Tender Relationship Specialty Start Date End Date Emily Sanders MD [address] [place] [phone] PCP - General Internal Medicine 04/18/21 Team [...] 2024 End: June 30, 2024 Vonda Mueller WELL DRILL OPERATOR HELPER CABLE TOOL-C Attending Provider Active Start: June 30, 2024 End: June 30, 2024 Vonda Mueller WELL DRILL OPERATOR HELPER CABLE TOOL-C Referring Provider Active Start: June 30, 2024 End: June 30, 2024 Team Status: Active Member Role Status Dates Dr. Emily Sanders MD Primary Care Provider Active Start: July 14, 2024 Vonda Mueller WELL DRILL OPERATOR HELPER CABLE TOOL-C Attending Provider Active Start: July 14, 2024 Vonda Mueller WELL DRILL OPERATOR HELPER CABLE TOOL-C Referring Provider Active Start: July 14, 2024 [...] Inactive Member Role Status Dates Dr. Emily Sandesr MD Primary Care Provider Active Start: July 14, 2024 End: July 14, 2024 Vonda Mueller WELL DRILL OPERATOR HELPER CABLE TOOL-C Attending Provider Active Start: July 14, 2024 End: July 14, 2024 Vonda Mueller WELL DRILL OPERATOR HELPER CABLE TOOL-C Referring Provider Active Start: July 14, 2024 [...] 20, 2024 End: June 20, 2024 Adi JOHNSON, PA Attending Provider Active Start: June 20, [...] 2024 End: June 29, 2024 Vonda Mueller WELL DRILL OPERATOR HELPER CABLE TOOL-C Attending Provider Active Start: June 29, 2024 End: June 29, 2024 Team Status: Inactive Member Role/Relationship Status Dates Dr. Emily Sanders MD Primary Care Provider Active Start: June 30, 2024 End: June 30, 2024 Vonda Mueller WELL DRILL OPERATOR HELPER CABLE TOOL-C Attending Provider Active Start: June 30, 2024 End: June 30, 2024 Vonda Mueller WELL DRILL OPERATOR HELPER CABLE TOOL-C Referring Provider Active Start: June 30, 2024 End: June 30, 2024 Team Status: Inactive Member Role/Relationship Status Dates Dr. Emily Sanders MD Primary Care Provider Active Start: July 14, 2024 End: July 14, 2024 Vonda Mueller WELL DRILL OPERATOR HELPER CABLE TOOL-C Attending Provider Active Start: July 14, 2024 End: July 14, 2024 Vonda Mueller WELL DRILL OPERATOR HELPER CABLE TOOL-C Referring Provider Active Start: July 14, 2024 [...] September 09, 2024 End: September 09, 2024 Team Status: Inactive Member Role/Relationship Status Dates Dr. Emily Sanders MD Primary Care Provider Active Start: September 10, 2024 End: September 10, 2024 Dr. Marvin Edouard DO Emergency Provider Active Start : September 10, 2024 End: September 10, 2024 Team Status: Inactive Member Role/Relationship Status Dates Dr. Emily Sanders MD Primary Care Provider Active Start: September 10, 2024 End: September 10, 2024 Dr. Marvin Edouard DO Attending Provider Active Start : September 10, 2024 End: September 10, 2024 Dr. Marvin Edouard DO Emergency Provider Active Start : September 10, 2024 End: September 10, 2024 Team Status: Inactive Member Role/Relationship Status Dates Dr. Emily Sanders MD Primary Care Provider Active Start: September 23, 2024 End: September 23, 2024 Dr. Emily Sanders MD Referring Provider Active Start: September 23, 2024 End: September 23, 2024 ELIZABETH Hernandez Attending Provider Active St art: September 23, 2024 End: September 23, 2024 Team Status: Inactive Member Role/Relationship Status Dates Dr. Emily Sanders MD Primary Care Provider Active Start: September 23, 2024 End: September 23, 2024 ELIZABETH Hernandez Attending Provider Active St art: September 23, 2024 End: September 23, 2024 ELIZABETH Hernandez Referring Provider Active St art: September 23, 2024 End: September 23, 2024 Lace Burn Out Tender Relationship Specialty Start Date End Date Emily Sanders MD [address] [facility] [address] [place] [phone] PCP - General Internal Medicine 04/18/21 Team Status: Inactive Member Role/Relationship Status Dates Dr. Emily Sanders MD Primary Care Provider Active Start: July 28, 2024 End: July 28, 2024 Dr. Emily Sanders MD Referring Provider Active Start: July 28, 2024 End: July 28, 2024 Dr. Gene Braun MD Attending Provider Active S tart: July 28, 2024 End: July 28, 2024 Team Status: Active Member Role/Relationship Status Dates Dr. Emily Sanders MD Primary Care Provider Active Start: September 29, 2024 ELIZABETH Hernandez Attending Provider Active St art: September 29, 2024 ELIZABETH Hernandez Referring Provider Active St art: September 29, 2024 Team Status: Active Member Role/Relationship Status Dates Dr. Gene Braun MD Attending Provider Active S tart: October 11, 2024 DEFINED NOT Referring Provider Active Start: 2024 Dr. Emily Sanders MD Primary Care Provider Active Start: October 11, 2024 Team Status: Inactive Member Role/Relationship Status Dates Dr. Emily Sanders MD Primary Care Provider Active Start: October 11, 2024 End: October 11, 2024 Dr. Emily Sanders MD Referring Provider Active Start: October 11, 2024 End: October 11, 2024 MOY Art Attending Provider Active Start: October 11, 2024 End: October 11, 2024 Team Status: Inactive Member Role/Relationship Status Dates Dr. Emily Sanders MD Primary Care Provider Active Start: October 12, 2024 End: October 12, 2024 Dr. Emily Sanders MD Referring Provider Active Start: October 12, 2024 End: October 12, 2024 Dr. Gulshan Jules MD Attending Provider Active Start: October 12, 2024 End: October 12, 2024 Team Status: Inactive Member Role/Relationship Status Dates Dr. Emily Sanders MD Primary Care Provider Active Start: October 18, 2024 End: October 18, 2024 Dr. Emily Sanders MD Referring Provider Active Start: October 18, 2024 End: October 18, 2024 Dr. Gene Braun MD Attending Provider Active S tart: October 18, 2024 End: October 18, 2024 Team Status: Inactive Member Role/Relationship Status [...] June 30, 2024 End: June 30, 2024 MOY Art Attending Provider Active Start: June 30, 2024 End: June 30, 2024 MOY Art Referring Provider Active Start: June 30, 2024 End: June 30, 2024 Team Status: Inactive Member Role/Relationship Status Dates Dr. Emily Sanders MD Primary Care Provider Active Start: July 14, 2024 End: July 14, 2024 MOY Art Attending Provider Active Start: July 14, 2024 End: July 14, 2024 MOY Art Referring Provider Active Start: July 14, 2024 [...] July 19, 2024 Team Status: Inactive Member Role/Relationship Status Dates Dr. Emily Sanders MD Primary Care Provider Active Start: July 28, 2024 End: July 28, 2024 Dr. Emily Sanders MD Referring Provider Active Start: July 28, 2024 End: July 28, 2024 Dr. Gene Braun MD Attending Provider Active S tart: July 28, 2024 End: July 28, 2024 Team Status: Inactive Member [...] September 09, 2024 End: September 09, 2024 Team Status: Inactive Member Role/Relationship Status Dates Dr. Emily Sanders MD Primary Care Provider Active Start: September 10, 2024 End: September 10, 2024 Dr. Marvin Edouard DO Attending Provider Active Start : September 10, 2024 End: September 10, 2024 Dr. Marvin Edouard DO Emergency Provider Active Start : September 10, 2024 End: September 10, 2024 Team Status: Inactive Member Role/Relationship Status Dates Dr. Emily Sanders MD Primary Care Provider Active Start: September 23, 2024 End: September 23, 2024 Dr. Emily Sanders MD Referring Provider Active Start: September 23, 2024 End: September 23, 2024 Gibran Rob PA Attending Provider Active St art: September 23, 2024 End: September 23, 2024 Team Status: Inactive Member Role/Relationship Status Dates Dr. Emily Sanders MD Primary Care Provider Active Start: September 23, 2024 End: September 23, 2024 Gibran Rob PA Attending Provider Active St art: September 23, 2024 End: September 23, 2024 Gibran Rob PA Referring Provider Active St art: September 23, 2024 End: September 23, 2024 Team Status: Active Member Role/Relationship Status Dates Dr. Emily Sanders MD Primary Care Provider Active Start: September 29, 2024 Gibran Rob PA Attending Provider Active St art: September 29, 2024 Gibran Rob , PA Referring Provider Active St art: September 29, 2024 Team Status: Active Member Role/Relationship Status Dates Dr. Gene Braun MD Attending Provider Active S tart: October 11, 2024 DEFINED NOT Referring Provider Active Start: 2024 Dr. Emily Sanders MD Primary Care Provider Active Start: October 11, 2024 Team Status: Inactive Member Role/Relationship Status Dates Dr. Emily Sanders MD Primary Care Provider Active Start: October 11, 2024 End: October 11, 2024 Dr. Emily Sanders MD Referring Provider Active Start: October 11, 2024 End: October 11, 2024 MOY Art Attending Provider Active Start: October 11, 2024 End: October 11, 2024 Team Status: Inactive Member Role/Relationship Status Dates Dr. Emily Sanders MD Primary Care Provider Active Start: October 12, 2024 End: October 12, 2024 Dr. Emily Sanders MD Referring Provider Active Start: October 12, 2024 End: October 12, 2024 Dr. Gulshan Jules MD Attending Provider Active Start: October 12, 2024 End: October 12, 2024 Team Status: Inactive Member Role/Relationship Status Dates Dr. Emily Sanders MD Primary Care Provider Active Start: October 18, 2024 End: October 18, 2024 Dr. Emily Sanders MD Referring Provider Active Start: October 18, 2024 End: October 18, 2024 Dr. Gene Braun MD Attending Provider Active S tart: October 18, 2024 End: October 18, 2024 Team Status: Inactive Member Role/Relationship Status Dates Dr. Emily Sanders MD Primary Care Provider Active Start: October 21, 2024 End: October 21, 2024 Dr. Emily Sanders MD Referring Provider Active Start: October 21, 2024 End: October 21, 2024 SHIRA BairdC Attending Provider Active Start: October 21, 2024 End: October 21, 2024 Team Status: Active Member Role/Relationship Status Dates Dr. Emily Sanders MD Primary care physician Activ e Team Status: Inactive Member Role/Relationship Status Dates Dr. Emily Sanders MD Primary care physician Activ e Start: July 14, 2024 End: July 14, 2024 MOY Art Attending physician Active Start: July 14, 2024 End: July 14, 2024 MOY Art Referring Provider Active Start: July 14, 2024 End: July 14, 2024 Team Status: Inactive Member Role/Relationship Status Dates Dr. Gulshan Jules MD Attending physician Active Start: July 19, 2024 End: July 19, 2024 Dr. Emily Sanders MD Primary care physician Activ e Start: July 19, 2024 End: July 19, 2024 Dr. Emily Sanders MD Referring Provider Active Start: July 19, 2024 End: July 19, 2024 Team Status: Inactive Member Role/Relationship Status Dates Dr. Emily Sanders MD Primary care physician Activ e Start: July 28, 2024 End: July 28, 2024 Dr. Emily Sanders MD Referring Provider Active Start: July 28, 2024 End: July 28, 2024 Dr. Gene Braun MD Attending physician Active Start: July 28, 2024 End: July 28, 2024 Team Status: Inactive Member Role/Relationship Status Dates Dr. Emily Sanders MD Primary care physician Activ e Start: September 03, 2024 End: September 03, 2024 Dr. Noe Schroeder , Attending physician Active Start: September 03, 2024 End: September 03, 2024 Dr. Noe Schroeder , DO Emergency Departme nt Physician Active Start: September 03, 2024 End: September 03, 2024 Team Status: Inactive Member Role/Relationship Status Dates Dr. Emily Sanders MD Primary care physician Activ e Start: September 09, 2024 End: September 09, 2024 Dr. Emily Sanders MD Referring Provider Active Start: September 09, 2024 End: September 09, 2024 ELIZABETH Morales Attending physician Active S tart: September 09, 2024 End: September 09, 2024 Team Status: Inactive Member Role/Relationship Status Dates Dr. Eimly Sanders MD Primary care physician Activ e Start: September 10, 2024 End: September 10, 2024 Dr. Marvin Edouard DO Attending physician Active Star t: September 10, 2024 End: September 10, 2024 Dr. Marvin Edouard , Emergency Department Physician Active Start: September 10, 2024 End: September 10, 2024 Team Status: Inactive Member Role/Relationship Status Dates Dr. Emily Sanders MD Primary care physician Activ e Start: September 23, 2024 End: September 23, 2024 Dr. Emily Sanders MD Referring Provider Active Start: September 23, 2024 End: September 23, 2024 ELIZABETH Hernandez Attending physician Active S tart: September 23, 2024 End: September 23, 2024 Team Status: Inactive Member Role/Relationship Status Dates Dr. Emily Sanders MD Primary care physician Activ e Start: September 23, 2024 End: September 23, 2024 ELIZABETH Hernandez Attending physician Active S tart: September 23, 2024 End: September 23, 2024 ELIZABETH Hernandez Referring Provider Active St art: September 23, 2024 End: September 23, 2024 Team Status: Active Member Role/Relationship Status Dates Dr. Emily Sanders MD Primary care physician Activ e Start: September 29, 2024 Dr. Ricki Forrest MD Attending physician Active Start: September 29, 2024 ELIZABETH Hernandez Referring Provider Active St art: September 29, 2024 Team Status: Active Member Role/Relationship Status Dates Dr. Emily Sanders MD Primary care physician Activ e Start: September 29, 2024 ELIZABETH Hernandez Attending physician Active S tart: September 29, 2024 ELIZABETH Hernandez Referring Provider Active St art: September 29, 2024 Team Status: Active Member Role/Relationship Status Dates Dr. Gene Braun MD Attending physician Active Start: October 11, 2024 DEFINED NOT Referring Provider Active Start: 2024 Dr. Emily Sanders MD Primary care physician Activ e Start: October 11, 2024 Team Status: Inactive Member Role/Relationship Status Dates Dr. Emily Sanders MD Primary care physician Activ e Start: October 11, 2024 End: October 11, 2024 Dr. Emily Sanders MD Referring Provider Active Start: October 11, 2024 End: October 11, 2024 MOY Art Attending physician Active Start: October 11, 2024 End: October 11, 2024 Team Status: Inactive Member Role/Relationship Status Dates Dr. Emily Sanders MD Primary care physician Activ e Start: October 12, 2024 End: October 12, 2024 Dr. Emily Sanders MD Referring Provider Active Start: October 12, 2024 End: October 12, 2024 Dr. Gulshan Jules MD Attending physician Active Start: October 12, 2024 End: October 12, 2024 Team Status: Inactive Member Role/Relationship Status Dates Dr. Emily Sanders MD Primary care physician Activ e Start: October 18, 2024 End: October 18, 2024 Dr. Emily Sanders MD Referring Provider Active Start: October 18, 2024 End: October 18, 2024 Dr. Gene Braun MD Attending physician Active Start: October 18, 2024 End: October 18, 2024 Team Status: Inactive Member Role/Relationship Status Dates Dr. Emily Sanders MD Primary care physician Activ e Start: October 21, 2024 End: October 21, 2024 Dr. Emily Sanders MD Referring Provider Active Start: October 21, 2024 End: October 21, 2024 MOY Baird Attending physician Active Start: October 21, 2024 End: October 21, 2024 Team Status: Inactive Member Role/Relationship Status Dates Dr. Emily Sanders MD Primary care physician Activ e Start: October 25, 2024 End: October 25, 2024 ELIZABETH Hernandez Attending physician Active S tart: October 25, 2024 End: October 25, 2024 ELIZABETH Hernandez Referring Provider Active St art: October 25, 2024 End: October 25, 2024 Team Status: Active Member Role/Relationship Status Dates Dr. Emily Sanders MD Primary care physician Activ e Start: October 25, 2024 Dr. Ghada Magana MD Attending physician Active Start: October 25, 2024 Team Status: Inactive Member Role/Relationship Status Dates Dr. Emily Sanders MD Primary care physician Activ e Start: October 31, 2024 End: October 31, 2024 Dr. Emily Sanders MD Referring Provider Active Start: October 31, 2024 End: October 31, 2024 Dr. Miguel A Mcgarry DO Attending physician Active Start: October 31, 2024 End: October 31, 2024 Team Status: Active Member Role/Relationship Status Dates Dr. Emily Sanders MD Primary care physician Activ e Start: October 31, 2024 Dr. Emily Sanders MD Referring Provider Active Start: October 31, 2024 Dr. Miguel A Mcgarry DO Attending physician Active Start: October 31, 2024 Dr. Miguel A Mcgarry DO Nurse Practitioner Active Start: October 31, 2024 Goals (unrecognized section and content) Goals [...] BE BASED ON THE PRIMARY CLINICAL RECORDS. [facility]. provides no warranty or guarantee of the accuracy or completeness of information in this document.
--- NOTE | 2024-12-21 09:24 | CPS ---
Patients Pulmonary Function Billing corrected today, Batch #247. Added DLCO testing that was performed and eliminated the Spirometry with Flow Volume Loops that was added in error.
== END | disposition home or self-care (01) ==
PROVIDERS: PCP Internal Medicine; Referring Provider Nurse Practitioner Family; Visit Provider Nurse Practitioner Family
DX: R06.2 Wheezing (principal)
CPT/HCPCS: 94010; 94060; 94726; 94729

== ENCOUNTER → 2025-01-12 | Outpatient (CLI) | payer BC, SELFPAY ==
[2025-01-12 12:15] LABS: Prothrombin Time (Protime)PT. 13.3 SECONDS (11.7-14.9)
[2025-01-12 12:47] LABS: AST(SGOT) 31 U/L (<=31); Alanine Aminotransfer ALT/SGPT 59 U/L (<=34); Albumin, Serum 4.4 g/dL (3.5-5.0); Alkaline Phosphatase 70 U/L (35-104); Bilirubin, Direct 0.22 mg/dL (0.00-0.30); Globulin 2.4 g/dL (2.2-4.2)
[2025-01-12 12:48] LABS: CRP < 3.00 mg/L (0.0-3.0)
== END | disposition home or self-care (01) ==
LOC: LAB 11:29
PROVIDERS: PCP Internal Medicine; Referring Provider Internal Medicine; Visit Provider Internal Medicine
DX: K75.81 Nonalcoholic steatohepatitis (NASH) (principal); R74.8 Abnormal levels of other serum enzymes; R74.01 Elevation of levels of liver transaminase levels
CPT/HCPCS: 36415; 80076; 85610; 86140

== ENCOUNTER → 2025-01-26 | Outpatient (CLI) | payer BC, SELFPAY ==
--- NOTE | 2025-01-26 10:18 | MRI_ITS ---
PROCEDURE: BRAIN W/WO CONTRAST 01/26/2025 REASON FOR EXAM: Clinical history of left sensorineural hearing loss. TECHNIQUE: Procedure Code: [id number] Modality: MR Procedure: BRAIN/IAC w/WO CONTRAST Multiplanar and multisequence images were obtained. CONTRAST: Clariscan VOLUME: 14 mL COMPARISON: None available. FINDINGS: The cisternal and canalicular segments of facial nerves (cranial nerve VII) and vestibulocochlear nerves (cranial nerve VIII) appear within normal limits. There is no evidence of enhancing mass or abnormal enhancement in the internal auditory canals or cerebellopontine angle cisterns. The vestibule, semicircular canals, and cochlea appear within normal limits bilaterally. No acute infarct or hemorrhage. No parenchymal enhancing lesion. The brain parenchyma is within normal limits. No extra-axial fluid collection. No significant mass effect or herniation of the brain. The ventricular system and sulci/fissures are within expected limits of size and configuration for the patient's stated age. The intracranial large vessel arterial flow voids are maintained. The mastoid air cells clear. The paranasal sinuses are predominately clear. The orbits are unremarkable. The calvarial bone marrow signal is within normal limits. MRI/Brain W/WO Contrast IMPRESSION: 1. No evidence of internal auditory canal or cerebellopontine angle cistern mas s. 2. No acute infarct, hemorrhage, or significant mass effect. Reading Location: [id number]
== END | disposition home or self-care (01) ==
LOC: MRI 10:16
PROVIDERS: PCP Internal Medicine
DX: H90.42 Sensorineural hearing loss, unilateral, left ear, with unrestricted hearing on the contralateral side (principal)
CPT/HCPCS: 70553; A9575